=== PATIENT | male | born 1950 | race Caucasian/White ===

== ENCOUNTER 2017-10-27 09:17 | Inpatient (IN) | payer MEDICARE, MEDICAID ==
[~2017-10-27] VITALS: Ht 165.1 cm; Wt 70.3 kg
[2017-10-27] MEDS ORDERED: AMLODIPINE BES2.5 MG ORAL (09:22)
[2017-10-27] MEDS ORDERED: NORVASC2.5 MG ORAL (09:22)
[2017-10-27] MEDS ORDERED: LORAZEPAM1 MG ORAL (09:22)
[2017-10-27] MEDS ORDERED: IBUPROFEN600 MG ORAL (09:22)
[2017-10-27 09:52] VITALS: BP 142/76
[2017-10-27] MEDS ORDERED: Morphine Sulfate 4mg/ml Inj IVP ONE (10:15)
--- NOTE | 2017-10-27 10:19 | Emergency Room Report ---
History of Present Illness General Chief Complaint: Back Pain-No Injury Source: Patient, Medical Record Present Illness HPI Patient presents with complaints of right pelvic and hip pain Patient reports that he woke up this morning with increased pain Does not recall any trauma reports history of osteoporosis Patient reports previous low back problems receiving epidural injections Denies any fevers or chills pain is worse with movement of the right leg Patient also complains of burning with urination Denies any chest pain or shortness of breath denies any upper weakness however patient has been decreasing with his ambulation and is now reporting that he essentially uses a wheelchair Allergies: Coded Allergies: SULFAMETHOXAZOLE (Unverified Allergy, Unknown, 10/27/17) TRIMETHOPRIM (Unverified Allergy, Unknown, 10/27/17) Patient History Past Medical History: see triage record Pertinent Family History: none Reviewed Nursing Documentation: PMH: Agreed; PSxH: Agreed Nursing Documentation-PMH Past Medical History: No History, Except For Hx Hypertension: Yes Review of Systems All Other Systems: negative except mentioned in HPI Physical Exam Vital Signs Date Time Temp Pulse Resp B/P (MAP) Pulse Ox O2 Delivery O2 Flow Rate FiO2 10/27/17 09:10 98.4 70 16 157/80 98 Room Air 98.4 Sp02 EP Interpretation: reviewed, normal General Appearance: no apparent distress Head: normocephalic, atraumatic Eyes: bilateral eye PERRL, bilateral eye EOMI ENT: normal pharynx, dry mucus membranes Neck: full range of motion, supple Respiratory: lungs clear, normal breath sounds Cardiovascular #1: regular rate, rhythm, no edema Gastrointestinal: non tender Genitourinary: no CVA tenderness Musculoskeletal: other - Patient is somewhat flexed in the lower extremity with rotation to the left, pain on palpation of the proximal femur, uncomfortable in the inguinal region as well, unable to fully straighten the leg on the right side no obvious erythema Neurologic: oriented x3, responsive, sensory intact Skin: other - Small inguinal erythema Medical Decision Making Diagnostic Impression: Primary Impression: Avascular necrosis Additional Impression: UTI (urinary tract infection) ER Course Multiple differentials considered Including but not limited to septic joint, arthralgia Patient's CT imaging reveals fairly chronic pathology Bladder infection is treated in the ER patient still requiring further extensive pain medication and will require further inpatient care Labs Test 10/27/17 09:35 10/27/17 10:14 Urine Color Pale yellow Urine Appearance Clear Urine pH 7 (4.5-8.0) Urine Specific [place] 1.010 (1.005-1.035) Urine Protein 2+ (NEGATIVE) Urine Glucose (UA) Negative (NEGATIVE) Urine Ketones Negative (NEGATIVE) Urine Occult Blood 1+ (NEGATIVE) Urine Nitrite Positive (NEGATIVE) Urine Bilirubin Negative (NEGATIVE) Urine Urobilinogen Normal MG/DL (0.0-1.0) Urine Leukocyte Esterase 2+ (NEGATIVE) Urine RBC 0-2 /HPF (0 - 0) Urine WBC 5-10 /HPF (0 - 0) Urine Squamous Epithelial Cells Occasional /LPF Urine Bacteria Many /HPF (NONE) White Blood Count 6.5 K/UL (4.8-10.8) Red Blood Count 4.13 M/UL (4.70-6.10) Hemoglobin 14.3 G/DL (14.2-18.0) Hematocrit 40.5 % (42.0-52.0) Mean Corpuscular Volume 98 FL (80-99) Mean Corpuscular Hemoglobin 34.7 PG (27.0-31.0) Mean Corpuscular Hemoglobin Concent 35.4 G/DL (32.0-36.0) Red Cell Distribution Width 11.7 % (11.6-14.8) Platelet Count 156 K/UL (150-450) Mean Platelet Volume 8.7 FL (6.5-10.1) Neutrophils (%) (Auto) 63.6 % (45.0-75.0) Lymphocytes (%) (Auto) 25.9 % (20.0-45.0) Monocytes (%) (Auto) 8.6 % (1.0-10.0) Eosinophils (%) (Auto) 1.3 % (0.0-3.0) Basophils (%) (Auto) 0.6 % (0.0-2.0) Sodium Level 142 MMOL/L (136-145) Potassium Level 3.9 MMOL/L (3.5-5.1) Chloride Level 106 MMOL/L (98-107) Carbon Dioxide Level 28 MMOL/L (21-32) Anion Gap 8 mmol/L (5-15) Blood Urea Nitrogen 23 mg/dL (7-18) Creatinine 1.3 MG/DL (0.55-1.30) Estimat Glomerular Filtration Rate 54.7 mL/min (>60) Glucose Level 101 MG/DL (74-106) Calcium Level 9.2 MG/DL (8.5-10.1) Rhythm Strip Diag. Results EP Interpretation: yes Rate: 78 Rhythm: NSR, no PVC's, no ectopy Other X-Ray Diagnostic Results Other X-Ray Diagnostic Results : X-Ray ordered: Right femur # of Views/Limited Vs Complete: 2 View Indication: Pain EP Interpretation: Yes Interpretation: no dislocation, no soft tissue swelling, other - Chronic decay of the femoral head Impression: Other - Avascular necrosis Electronically Signed by: Corey Owens DO CT/MRI/US Diagnostic Results CT/MRI/US Diagnostic Results : Impression CT L-spineImpression: No acute bony trauma Degenerative changes, as detailed on a level by level basis above. CT pelvicImpression: Severe abnormality of both hips, as described. Findings are consistent with old bilateral avascular necrosis resulting in severe secondary degenerative change.. No definite acute joint abnormality. Material surrounding the femoral heads and necks probably represents postinflammatory pannus rather than joint fluid, although joint effusion is not completely excludable No evidence of acute bony trauma. Degenerative lumbosacral changes, as described Incidental finding small fat-containing umbilical hernia Last Vital Signs Date Time Temp Pulse Resp B/P (MAP) Pulse Ox O2 Delivery O2 Flow Rate FiO2 10/27/17 09:52 98.4 63 16 142/76 96 Room Air 98.4 Status: improved Disposition: ADMITTED INPATIENT Condition: Serious Referrals: MARY HENNESSY (PCP) Corey Owens DO Oct 27, 2017 10:19
[2017-10-27 10:32] LABS: APPEARANCE,URINE CLEAR; BILIRUBIN, URINE NEGATIVE (NEGATIVE); COLOR,URINE PALE YELLOW; GLUCOSE, URINE (UA) NEGATIVE (NEGATIVE); KETONES,URINE NEGATIVE (NEGATIVE); LEUKOCYTE ESTERASE ,URINE 2+ (NEGATIVE); NITRITE,URINE POSITIVE (NEGATIVE); PH,URINE 7 (4.5-8.0); PROTEIN,URINE 2+ (NEGATIVE); UROBILINOGEN,URINE NORMAL MG/DL (0.0-1.0)
[2017-10-27 10:34] LABS: BASOPHILS % (AUTO) 0.6 % (0.0-2.0); EOSINOPHILS % (AUTO) 1.3 % (0.0-3.0); HEMATOCRIT 40.5 % (42.0-52.0); HEMOGLOBIN 14.3 G/DL (14.2-18.0); LYMPHOCYTES % (AUTO) 25.9 % (20.0-45.0); MEAN CORPUSCULAR VOLUME 98 FL (80-99); MONOCYTES % (AUTO) 8.6 % (1.0-10.0); NEUTROPHILS % (AUTO) 63.6 % (45.0-75.0); PLATELET COUNT 156 K/UL (150-450); RED BLOOD COUNT 4.13 M/UL (4.70-6.10); RED CELL DISTRIBUTION WIDTH 11.7 % (11.6-14.8); WHITE BLOOD COUNT 6.5 K/UL (4.8-10.8)
[2017-10-27 10:47] LABS: ANION GAP 8 mmol/L (5-15); BLOOD UREA NITROGEN 23 mg/dL (7-18); CALCIUM 9.2 MG/DL (8.5-10.1); CARBON DIOXIDE 28 MMOL/L (21-32); CHLORIDE 106 MMOL/L (98-107); CREATININE 1.3 MG/DL (0.55-1.30); POTASSIUM 3.9 MMOL/L (3.5-5.1); SODIUM 142 MMOL/L (136-145)
[2017-10-27] MEDS: Nystatin Powder 100,000 units/gm 15gm TOPIC SCH ×3 (10:54→18:20)
--- NOTE | 2017-10-27 11:16 | Diagnostic Imaging Report ---
Indication: Pelvic and hip pain Technique: Noncontrast spiral acquisitions obtained through the pelvis. Multiplanar reconstructions generated. Total dose length product 891.4 mGycm. CTDIvol(s) 19.21,11.96 mGy. Dose reduction achieved using automated exposure control Comparison: none Findings: There is marked chronic appearing abnormality of the right hip, with marked bone loss of the femoral head, deformity of the femoral head, areas of flattening, sclerosis, and irregularity of the articular surface. There is narrowing of the joint space. In addition to the bone loss, there are some degenerative proliferative changes. There are subchondral cysts. There is associated remodeling of the acetabulum, marked irregularity of the acetabular articular surface, subchondral cyst formation, and osteophytes. There is a considerable degree of thickening of the acetabulum. No definite protrusio demonstrated, however. Material seen surrounding the femoral head and neck is higher in attenuation than fluid, probably reflects joint pannus rather than effusion, although the latter is also possible There is a similar abnormality of the left hip, slightly less severe. There is marked abnormality of the femoral head, with flattening of the femoral, extensive subchondral cyst formation, marked irregularity of the articular surface, degenerative proliferative changes, and loss of the joint space. The acetabular side demonstrates sclerosis, subchondral cysts, degenerative proliferative changes, and marked irregularity of the articular surface. Material seen surrounding the femoral head and neck is less extensive than the contralateral side, probably represents a small amount of joint habitus rather than effusion, although the latter is also possible No evidence of acute fracture. No dislocations. There are mild degenerative changes of the sacroiliac joints and lumbosacral junction. There is a small fat-containing umbilical hernia incidentally noted. The pelvic viscera are unremarkable. Impression: Severe abnormality of both hips, as described. Findings are consistent with old bilateral avascular necrosis resulting in severe secondary degenerative change.. No definite acute joint abnormality. Material surrounding the femoral heads and necks probably represents postinflammatory pannus rather than joint fluid, although joint effusion is not completely excludable No evidence of acute bony trauma. Degenerative lumbosacral changes, as described Incidental finding small fat-containing umbilical hernia The CT scanner at [facility] is accredited by the [employer] and the scans are performed using protocols designed to limit radiation exposure to as low as reasonably achievable to attain images of sufficient resolution adequate for diagnostic evaluation.
--- NOTE | 2017-10-27 11:24 | Diagnostic Imaging Report ---
Indications: Right pelvic, hip, and back pain Technique: Spiral acquisitions obtained through the lumbar spine. Multiplanar reconstructions were generated. No IV contrast utilized. Total dose length product 891.4 mGycm. CTDIvol(s) 19.21,11.96 mGy. Dose reduction achieved using automated exposure control Comparison: none Findings: There is mild lumbar levoscoliotic deformity. There is anterior offset of L4 on L5. There is slight posterior offset of L5 on S1. Otherwise normal bony alignment. There is some degenerative remodeling of the vertebral bodies. The vertebral body heights are otherwise preserved. No acute fractures. There are extensive degenerative proliferative changes at multiple levels. There are questionably old healed fracture deformities of the left L3 and L4 transverse processes. At T11-12, no significant disc bulge or protrusion, spinal stenosis, or neural foraminal stenosis. At T12-L1, there is degenerative disc narrowing with vacuum formation. No significant disc bulge or protrusion, spinal stenosis, or neural foraminal stenosis. At L1-2, there is severe narrowing of the right neural foramen. There is a large central broad-based posterior disc protrusion which results in mild narrowing of the spinal canal. The disc protrudes approximately 5 mm posterior to the posterior margins of the vertebral bodies. There is severe degenerative disc narrowing with vacuum formation. At L2-3 there is moderate to severe degenerative disc narrowing with vacuum formation. There is circumferential annular bulge which results in mild to moderate stenosis of the spinal canal. There is moderate to severe right neural foraminal stenosis. At L3-4, the disc space is preserved. There is circumferential annular bulge which results in borderline narrowing of the spinal canal. There is mild to moderate right and mild left neural foraminal stenosis. At L4-5, there is mild degenerative disc narrowing. There is circumferential annular bulge which does not result in any significant compromise of the spinal canal. However, the slight anterior offset described earlier and the annular bulge is resultant mild compromise of the bilateral neural foramina. At L5-S1, there is moderate to severe degenerative disc narrowing with vacuum formation. There is minimal circumferential annular bulge which does not seriously compromise the spinal canal. There is moderate degenerative narrowing of the left neural foramen. Included extraspinal soft tissues are unremarkable. Impression: No acute bony trauma Degenerative changes, as detailed on a level by level basis above. The CT scanner at [facility] is accredited by the [employer] and the scans are performed using protocols designed to limit radiation exposure to as low as reasonably achievable to attain images of sufficient resolution adequate for diagnostic evaluation.
[2017-10-27] MEDS ORDERED: cefTRIAXone 1 GM in NS 55 ML IVPB ONE (11:30)
[2017-10-27 11:53] VITALS: BP 140/77
[2017-10-27] MEDS ORDERED: Ketorolac 30mg Inj IV ONE (12:45)
[2017-10-27 14:26] VITALS: BP 132/97
--- NOTE | 2017-10-27 15:03 | Diagnostic Imaging Report ---
Indications: Reason For Exam: PAIN Technique: Two views of the right femur Comparison: None Findings: There is severe abnormality of the right hip, described in detail on earlier CT scan, with severe degenerative changes and evidence of old avascular necrosis. No acute fractures. No dislocations Impression: No acute bony trauma Markedly abnormal right hip, also described on earlier CT scan
[2017-10-27 16:00] VITALS: BP 141/83
[2017-10-27] MEDS: Morphine Sulfate 4mg/ml Inj IVP PRN (18:39)
[2017-10-27] MEDS ORDERED: cefTRIAXone 1 GM in D5W 55 ML IVPB SCH (20:00)
[2017-10-27] MEDS ORDERED: INTELENCE100 MG ORAL (20:06)
[2017-10-27] MEDS ORDERED: AVODART0.5 MG ORAL (20:06)
[2017-10-27] MEDS ORDERED: BARACLUDE0.5 MG ORAL (20:06)
[2017-10-27 20:54] VITALS: BP 143/80
[2017-10-27] MEDS: Fluconazole 100mg tab ORAL SCH (21:21)
[2017-10-27] MEDS: Heparin 5000 units/ml inj SUBQ SCH (21:22)
[2017-10-27] MEDS: LORazepam 1mg tab ORAL PRN (23:39)
--- NOTE | 2017-10-28 | Consultation ---
DATE OF CONSULTATION: 10/27/2017 CARDIOLOGY CONSULTATION NOTE CONSULTING PHYSICIAN: Price Mendieta M.D. REQUESTING PHYSICIAN: Enoc Corrales M.D. REASON FOR CONSULTATION: Management of hypertension in the setting of acute pain syndrome. 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 He notes falling on his knee a week or so ago, but did not have any pain on the knee, rather he developed worsening right pelvic and hip pain since this morning. The pain has progressed rapidly and is of severe severity 04/12. The patient does have a prior history of degenerative disk disease as well and has received epidural injections in the past. He has had some worsening rash around his genitalia and perineum and notes burning with urination. He has not been to be able to mobilize himself due to weakness and dizziness upon sitting up. He has not had any chest pain palpitations or shortness of breath. PAST MEDICAL HISTORY: Human immunodeficiency virus positive, avascular necrosis, hypertension, osteoporosis, and degenerative disk disease. MEDICATIONS: Prior to admission, reviewed and reconciled although the patient is unaware of his exact HIV regimen at this time. ALLERGIES: Sulfa. FAMILY HISTORY: Noncontributory. SOCIAL HISTORY: Negative for smoking, alcohol, or substance abuse. REVIEW OF SYSTEMS: A 10-point review of systems performed. All systems negative other than noted above. PHYSICAL EXAMINATION: GENERAL: Weak, withdrawn, and appears older than stated age. VITAL SIGNS: Blood pressure 157/80, pulse 70, respirations 16, afebrile, and room air oxygen saturation 98%. HEENT: Temporal wasting. Pale conjunctivae. Oropharynx clear. Mucous membranes dry. NECK: Supple. LUNGS: With diminished breath sounds. No wheezing or rales. CARDIAC: Regular rhythm and rate. Normal S1 and S2 with a fourth heart sound. No murmur. ABDOMEN: Soft and nontender with no guarding or rebound. EXTREMITIES: Reveals symmetric weakness and muscle atrophy. No edema. Decreased range of motion severely on the right lower extremity as well as the left. SKIN: Notable for tinea cruris. DIAGNOSTIC AND LABORATORY DATA: Imaging studies of the spine are reviewed. Urinalysis with 5 to 10 white cells and moderate bacteria. Sodium 142, potassium 3.9, bicarbonate 28, BUN 23, creatinine 1.3, and glucose 101. White count is 6.5 and hemoglobin 14.3. EKG with sinus rhythm and no acute abnormalities. Nonspecific ST-T wave changes seen. IMPRESSION: 1. Acute pain syndrome due to avascular necrosis and degenerative disk disease, possibly precipitated by metabolic derangements, acute infection, or recent trauma to knee. 2. Human immunodeficiency virus/acquired immune deficiency syndrome. 3. Hypertension with elevated blood pressure, but no signs of secondary cardiovascular complications. 4. Umbilical hernia. 5. Acute kidney injury due to hypovolemia and hypoperfusion. 6. Mild hypovolemia and dehydration. 7. Tinea cruris. PLAN: 1. Hydration with IV fluids. 2. Empiric antibiotics. 3. Pain control. 4. DVT and stress ulcer prophylaxes. 5. Rheumatology consultation has been requested by his primary care physician. 6. P.r.n. antihypertensives for blood pressure spikes once pain controlled. 7. Orthostatic precautions with the use of amlodipine. 8. Antifungal therapy and skin care. Price Mendieta M.D. DR: LAURI JOB#: [id number] CC:
[2017-10-28] MEDS: Morphine Sulfate 4mg/ml Inj IVP PRN ×5 (02:23→22:25)
[2017-10-28 04:05] VITALS: BP 126/77
[2017-10-28] MEDS ORDERED: Gadavist 7.5mMol/7.5ml vial IV SCH ×2 (08:30→10:00)
[2017-10-28 09:00] VITALS: BP 130/77
[2017-10-28 09:01] LABS: BASOPHILS % (AUTO) 0.4 % (0.0-2.0); EOSINOPHILS % (AUTO) 1.5 % (0.0-3.0); HEMOGLOBIN 14.9 G/DL (14.2-18.0); LYMPHOCYTES % (AUTO) 31.4 % (20.0-45.0); MEAN CORPUSCULAR VOLUME 100 FL (80-99); MONOCYTES % (AUTO) 6.1 % (1.0-10.0); NEUTROPHILS % (AUTO) 60.6 % (45.0-75.0); PLATELET COUNT 154 K/UL (150-450); RED BLOOD COUNT 4.21 M/UL (4.70-6.10); RED CELL DISTRIBUTION WIDTH 11.8 % (11.6-14.8); WHITE BLOOD COUNT 7.7 K/UL (4.8-10.8)
[2017-10-28] MEDS: Fluconazole 100mg tab ORAL SCH (09:06)
[2017-10-28] MEDS: Nystatin Powder 100,000 units/gm 15gm TOPIC SCH ×2 (09:07→14:12)
[2017-10-28] MEDS: Heparin 5000 units/ml inj SUBQ SCH ×2 (09:07→21:44)
[2017-10-28 09:23] LABS: ALANINE AMINOTRANSFERASE 29 U/L (12-78); ALBUMIN 3.5 G/DL (3.4-5.0); ALBUMIN/GLOBULIN RATIO 0.9 (1.0-2.7); ALKALINE PHOSPHATASE 124 U/L (46-116); ANION GAP 9 mmol/L (5-15); ASPARTATE AMINO TRANSFERASE 27 U/L (15-37); BILIRUBIN,TOTAL 0.5 MG/DL (0.2-1.0); BLOOD UREA NITROGEN 20 mg/dL (7-18); CALCIUM 8.7 MG/DL (8.5-10.1); CARBON DIOXIDE 26 MMOL/L (21-32); CHLORIDE 107 MMOL/L (98-107); CREATINE KINASE 96 U/L (26-308); CREATININE 1.1 MG/DL (0.55-1.30); POTASSIUM 3.8 MMOL/L (3.5-5.1); SODIUM 142 MMOL/L (136-145)
[2017-10-28] MEDS ORDERED: Gadavist 7.5mMol/7.5ml vial IV PRN (10:00)
--- NOTE | 2017-10-28 11:00 | Consultation ---
DATE OF CONSULTATION: 10/28/2017 NOTE: INCOMPLETE DICTATION RHEUMATOLOGICAL CONSULTATION CONSULTING PHYSICIAN: Tonja oBx M.D. REASON FOR CONSULTATION: I was asked by Dr. Mendieta to assess this 67-year-old patient because of diffuse articular pain. HISTORY OF PRESENT ILLNESS: The patient has diffuse articular pain started more than 20 years ago and progressively increased for the last 20 years. In the last two years, this pain has significantly involved both shoulders, both elbows, both wrists, both knees and both . In addition, the patient had inability to move his hips except slightly forward and backward, but he cannot perform an abduction movement. This over the last several years . He denies having any swollen joints, however, he has sensitivity. He has dry eyes and dry mouth and pain today. . ALLERGIES: No known drug allergies. MEDICATIONS: The patient is on amlodipine 5 mg daily, heparin 5000 units subcutaneously q.12 h., mg daily, clonidine 0.1 mg p.r.n., fluconazole 100 mg daily, and clonazepam 1 mg q.8 h. p.r.n. In addition, he is on morphine sulfate . ALLERGIES: No known drug allergies. FAMILY HISTORY: Not contributory. SOCIAL HISTORY: He is single. He for many years. Prior to that, . HABITS: The patient does not smoke, drink, or use illicit drugs, however, he did smoke in the past. Tonja Box M.D. DR: TERRENCE JOB#: [id number] CC:
--- NOTE | 2017-10-28 13:00 | History and Physical Report ---
DATE OF ADMISSION: 10/27/2017 CHIEF COMPLAINT: Severe hip pain and back pain. HISTORY OF PRESENT ILLNESS: The patient is a 67-year-old male. He has a history of HIV and hypertensive heart disease, presented with complaints of one week of progressive back and hip pain. According to the patient, he was well. He has been nonambulatory for several years now, but is unclear exactly why. He had severe pain in the lower back and hips and presented to the emergency room for further evaluation. On evaluation there, CT scan of the hip showed avascular necrosis. The patient denies any recent fevers or chills. He denies any trauma or falls. No changes in activity. The patient was also noted to be markedly hypertensive and is now admitted for further evaluation and care. PAST MEDICAL HISTORY: As above. PAST SURGICAL HISTORY: None. CURRENT MEDICATIONS: Reconciled and reviewed. ALLERGIES: Include Bactrim. FAMILY HISTORY: Noncontributory. SOCIAL HISTORY: Negative for tobacco, ethanol, or drugs. REVIEW OF SYSTEMS: GENERAL: No fever or chills. HEENT: No headaches or visual changes. CARDIOPULMONARY: No chest pain or shortness of breath. GASTROINTESTINAL: No nausea or vomiting. GENITOURINARY: No urgency or frequency. MUSCULOSKELETAL: Positive hip pain and back pain. NEUROLOGIC: No evidence of seizures. PHYSICAL EXAMINATION: VITAL SIGNS: Temperature 98.4, pulse 63, respirations 16, and blood pressure 142/76. GENERAL: The patient is well-developed male, who appears chronically ill, but is awake and alert. HEENT: His pupils are equal, round, and reactive to light. Oropharynx clear. NECK: Supple. HEART: Regular rate and rhythm. LUNGS: Clear. ABDOMEN: Soft, nontender, nondistended. EXTREMITIES: Without clubbing, cyanosis, or edema. The patient has minimal passive or active range of motion of the hips due to severe pain. DIAGNOSTIC AND LABORATORY DATA: CT scan of the spine showed severe narrowing of the right neuroforamina at L1 and L2, the large disk protrusion, severe degenerative disk disease at L2 and L3, and L5 and S1. CT scan of the hip showed severe abnormality both hips consistent with old bilateral avascular necrosis. ASSESSMENT: This is a pleasant male with a history of HIV, admitted with complaints of severe hip and back pain. 1. Severe hip and back pain. 2. AVN of the hips. 3. Rule out septic arthritis of the hips. 4. Severe degenerative disk disease. 5. HIV. 6. Hypertensive heart disease. PLAN: Empiric antibiotics. ID, Cardiology, and Orthopedics evaluation will be obtained. We will obtain MRI with contrast to rule out septic joint. Empiric antibiotic therapy. Check cultures. Pain control. Cardiology consultation to assist with blood pressure management. Enoc Corrales M.D. DR: APOLONIA JOB#: [id number] CC:
[2017-10-28] MEDS: LORazepam 1mg tab ORAL PRN (14:11)
[2017-10-28] MEDS: Piperacillin/Tazobactam 3.375 GM in D5W 110 ML IVPB SCH ×2 (14:11→21:43)
--- NOTE | 2017-10-28 16:31 | Diagnostic Imaging Report ---
Indication: Severe bilateral hip pain, abnormal prior CT scan Technique: Coronal and axial T 1 fast spin echo and fast spin echo IR images of the pelvis. Patient could not tolerate any further imaging Comparison: CT scan yesterday Findings: Exam is limited due to the availability of only 4 sequences. As demonstrated on CT, there is marked abnormality of the bilateral femoral heads. This is seen in better detail on the prior CT scan. There is also corresponding abnormality the bilateral acetabula. No definite bone marrow signal abnormality. No joint effusion is demonstrated. A small amount of fluid is seen in the right hip joint. Pannus surrounding the bilateral femoral heads is best appreciated on the T1-weighted images. No significant soft tissue edema is demonstrated. No focal fluid collection demonstrated The included pelvic viscera are unremarkable. Impression: Limited exam, as described Marked abnormality of the bilateral acetabula and femoral heads, seen in better detail on prior CT scan. As previously discussed, this most likely represents sequela of prior bilateral avascular necrosis No evidence of significant soft tissue cellulitis, myositis, or abscess
--- NOTE | 2017-10-28 17:00 | Consultation ---
DATE OF CONSULTATION: 10/28/2017 INFECTIOUS DISEASES CONSULTATION CONSULTING PHYSICIAN: Melchor Velez M.D. REFERRING PHYSICIAN: Enoc Corrales M.D. REASON FOR CONSULTATION: HIV. HISTORY OF PRESENTING ILLNESS: This is a 67-year-old gentleman with history of human immunodeficiency virus, T-cell count of 400, viral load unknown and there is history of avascular necrosis of the hip, who had a fall on his knee and he has had increasing pain and he also had some burning with urination. An Infectious Diseases consultation has been obtained for human immunodeficiency virus as well as urinary tract infection. PAST MEDICAL HISTORY: 1. History of human immunodeficiency virus, T-cell count of 400, viral load unknown. 2. Avascular necrosis. 3. Hypertension. 4. Osteoporosis. 5. Degenerative disk disease. 6. History of shingles. He denies any hepatitis A, B, or C or syphilis, gonorrhea, or Chlamydia or any other opportunistic infections. MEDICATIONS: As an inpatient, he is on Gadobutrol, amlodipine, subcutaneous heparin, raltegravir, ceftriaxone, ritonavir, clonidine, fluconazole, Ativan, morphine, Zofran, and nystatin. ALLERGIES: Bactrim. SOCIAL HISTORY: No history of smoking, alcohol, or drug use. FAMILY HISTORY: Noncontributory. REVIEW OF SYSTEMS: CONSTITUTIONAL: He denies any fever, chills, cough, shortness of breath, or chest pain. CARDIAC: No chest pain. No palpitations. No dizziness. No syncope. GASTROINTESTINAL: No nausea. No vomiting. No abdominal pain or diarrhea. MUSCULOSKELETAL: He complains of pain in his legs. GENITOURINARY: He does complain of dysuria. PHYSICAL EXAMINATION: VITAL SIGNS: Temperature of 97.8, T-max of 98.6, pulse of 63, respiratory rate of 19, blood pressure 126/77, and O2 saturation of 97%. HEENT: Pupils equally reactive to light and accommodation. Mouth appears clean without thrush. NECK: Supple. No adenopathy. No JVD. CARDIOVASCULAR: Regular rate and rhythm. No murmurs. LUNGS: Clear to auscultation bilaterally. No crackles. No wheezes. ABDOMEN: Soft and nontender. No organomegaly. Groin area erythema noted. EXTREMITIES: No cyanosis, no clubbing, no edema. Left knee, soreness noted. LABORATORY AND DIAGNOSTIC DATA: White count 7.7, hemoglobin 13.9 hematocrit 42, MCV 100, platelet count of 154,000, and neutrophils of 60%. Sodium 142, potassium 3.8, chloride 107, bicarb 26, BUN 20, creatinine 1.1, glucose of 94, and calcium 8.7. Total bilirubin 0.5. AST 27, ALT 29, and alkaline phosphatase 124. CK of 96. Total protein of 7.6. Albumin 3.5. UA showing 5 to 10 white cells. Urine culture is showing gram-negative rods more than 100,[address] of the pelvis is showing severe abnormality of both hips consistent with old bilateral avascular necrosis resulting in severe secondary degenerative change. Material surrounding the probably represents post inflammatory pannus rather than joint fluid. No bony trauma noted. Degenerative lumbosacral changes described. Spine CT is showing degenerative changes. X-ray of the femur is showing no acute bony trauma. ASSESSMENT: This is a 67-year-old gentleman with history of human immunodeficiency virus, T-cell count of 400, with avascular necrosis, who comes in with, 1. Urinary tract infection with gram-negative rods. 2. Groin fungal infection. 3. Human immunodeficiency virus with T-cell count of 400. PLAN: 1. Continue fluconazole. 2. Discontinue ceftriaxone. 3. We will start the patient on Zosyn. 4. We will follow up cultures and adjust antibiotics accordingly. I would like to thank, Dr. Corrales, for this consultation. Melchor Velez M.D. DR: JOSE JOB#: [id number] CC: Enoc Corrales M.D.
[2017-10-28] MEDS: Ritonavir 100mg tab ORAL SCH (17:06)
[2017-10-28] MEDS: Isentress 400mg tab ORAL SCH ×2 (17:07→21:43)
[2017-10-28 21:00] VITALS: BP 159/95
[2017-10-29] VITALS: BP 148/89
[2017-10-29] MEDS: LORazepam 1mg tab ORAL PRN (00:12)
--- NOTE | 2017-10-29 03:00 | Progress Note ---
DATE: 10/28/2017 CARDIOLOGY PROGRESS NOTE SUBJECTIVE: The patient's pain has not improved. He feels very weak. He said he continues on IV fluid hydration and pain control. Antimicrobials have been adjusted by the Infectious Disease retirement sales consultant. PHYSICAL EXAMINATION: VITAL SIGNS: Blood pressure labile 126/77 to 176/108, heart rate 63 to 81, and respiratory rate 20. No fevers. LUNGS: Clear. CARDIAC: Regular. Normal S1, S2. ABDOMEN: Soft. EXTREMITIES: No edema. MRI of the pelvis revealed bilateral avascular necrosis with no other acute pathology. IMPRESSION: 1. Hypertensive heart disease with accelerated and labile blood pressure likely due to pain. 2. Avascular necrosis. 3. Human immunodeficiency virus/acquired immune deficiency syndrome. 4. Acute on chronic pain due to degenerative arthritis. 5. Diastolic dysfxn with chronic CHF. PLAN: 1. Antimicrobials. 2. Pain control. 3. Stepwise titration of antihypertensive. 4. Avoid tight blood pressure control at this time due to potential for orthostasis and rapid drop in blood pressure with pain control measures. Price Mendieta M.D. DR: ADA JOB#: [id number] CC: RENEE
[2017-10-29] MEDS: Morphine Sulfate 4mg/ml Inj IVP PRN ×4 (03:32→21:11)
[2017-10-29] MEDS: Piperacillin/Tazobactam 3.375 GM in D5W 110 ML IVPB SCH (05:41)
[2017-10-29 08:00] VITALS: BP 164/95
[2017-10-29] MEDS: Fluconazole 100mg tab ORAL SCH (08:59)
[2017-10-29] MEDS: Metoprolol Succinate XL 25mg tab ORAL SCH (08:59)
[2017-10-29] MEDS: Isentress 400mg tab ORAL SCH ×2 (08:59→21:09)
[2017-10-29] MEDS: Ritonavir 100mg tab ORAL SCH ×2 (08:59→17:52)
[2017-10-29] MEDS: Heparin 5000 units/ml inj SUBQ SCH ×2 (09:01→21:11)
--- NOTE | 2017-10-29 11:01 | Infectious Diseases Prog Note ---
Assessment/Plan Assessment/Plan antibiotics ; zosyn, fluconazole A 1. e.coli UTI 2. HIV 3. groin fungal infection 4. avascular necrosis P 1. continue fluconazole 2. d/c zosyn 3. start ceftriaxone 4. will follow up cultures Subjective Constitutional: Denies: fever, chills Respiratory: Reports: shortness of breath, dry cough Gastrointestinal/Abdominal: Reports: diarrhea; Denies: nausea, vomiting Musculoskeletal: Reports: pain Allergies: Coded Allergies: SULFAMETHOXAZOLE (Unverified Allergy, Unknown, 10/27/17) TRIMETHOPRIM (Unverified Allergy, Unknown, 10/27/17) Objective Vital Signs Last 24 Hour Vital Signs Date Time Temp Pulse Resp B/P (MAP) Pulse Ox O2 Delivery O2 Flow Rate FiO2 10/29/17 09:31 98.1 10/29/17 08:59 82 164/95 10/29/17 08:59 82 164/95 10/29/17 08:00 98.1 82 20 164/95 96 Nasal Cannula 2.0 98.1 10/29/17 03:32 98.0 10/29/17 00:00 98.0 81 20 148/89 95 Nasal Cannula 2.0 98.0 10/28/17 22:24 176/108 10/28/17 21:00 98.0 71 20 159/95 96 98.0 Height (Feet): 5 Height (Inches): 5.00 Weight (Pounds): 155 Respiratory/Chest: lungs clear Cardiovascular: normal rate, regular rhythm, no gallop/murmur Abdomen: soft, non tender Extremities: no edema Microbiology Date/Time Source Procedure Growth Status 10/27/17 09:35 Urine,Clean Catch Urine Culture - Final Escherichia Coli Complete 10/27/17 12:20 Rectum VRE Culture - Final Enterococcus Faecium - Vre Complete Current Medications Medications (Trade) Dose Ordered Sig/Roman Route PRN Reason Start Time Stop Time Status Last Admin Dose Admin Amlodipine Besylate (Norvasc) 5 mg DAILY ORAL 10/28/17 09:00 11/27/17 08:59 10/29/17 08:59 Clonidine HCl (Catapres Tab) 0.1 mg Q4H PRN ORAL SBP above 150 10/27/17 19:30 11/26/17 19:29 10/28/17 22:24 Entecavir (Baraclude) 1 mg DAILY ORAL 10/28/17 15:00 11/27/17 14:59 10/29/17 09:52 Etravirine (Intelence) 200 mg Q12HR ORAL 10/28/17 12:30 11/27/17 12:29 UNV Fluconazole (Diflucan) 100 mg DAILY ORAL 10/27/17 19:15 11/03/17 19:14 10/29/17 08:59 Gadobutrol (Gadavist) 7.5 mmol ONCE PRN IV FOR RADIOLOGY USE ONLY 10/28/17 10:00 10/29/17 23:59 Heparin Sodium (Porcine) (Heparin 5000 units/ml) 5,000 units EVERY 12 HOURS SUBQ 10/27/17 21:00 11/26/17 20:59 10/29/17 09:01 Lorazepam (Ativan) 1 mg Q8H PRN ORAL ANXIETY 10/27/17 13:45 11/03/17 13:44 10/29/17 00:12 Metoprolol Succinate (Toprol XL) 25 mg DAILY ORAL 10/29/17 09:00 11/28/17 08:59 10/29/17 08:59 Morphine Sulfate (Morphine Sulfate) 2 mg Q4H PRN IVP Severe Pain (Pain Scale 7-10) 10/27/17 13:45 11/03/17 13:44 10/29/17 09:01 Ondansetron HCl (Zofran) 4 mg Q6H PRN IVP Nausea & Vomiting 10/27/17 13:45 11/26/17 13:44 Piperacillin Sod/ Tazobactam Sod 3.375 gm/Dextrose 110 ml @ 27.5 mls/hr EVERY 8 HOURS IVPB 10/28/17 14:00 11/02/17 13:59 10/29/17 05:41 Raltegravir (Isentress) 400 mg Q12HR ORAL 10/28/17 14:00 11/27/17 13:59 10/29/17 08:59 Ritonavir (Norvir) 100 mg TWICE A DAY ORAL 10/28/17 18:00 11/27/17 17:59 10/29/17 08:59 Sodium Chloride 1,000 ml @ 75 mls/hr [id number] IV 10/29/17 19:15 11/28/17 19:14 XENA FOX Oct 29, 2017 11:01
[2017-10-29 12:00] VITALS: BP 110/66
--- NOTE | 2017-10-29 12:27 | General Progress Note ---
Assessment/Plan Problem List: (1) Degenerative disc disease SNOMED: 58365559 (2) Neuropathy ICD Codes: G62.9 - Polyneuropathy, unspecified SNOMED: 230706212 (3) HIV (human immunodeficiency virus infection) ICD Codes: B20 - Human immunodeficiency virus [HIV] disease SNOMED: 28604993 (4) UTI (urinary tract infection) ICD Codes: N39.0 - Urinary tract infection, site not specified SNOMED: 25559466 (5) Avascular necrosis ICD Codes: M87.00 - Idiopathic aseptic necrosis of unspecified bone SNOMED: 688931200 Status: stable, progressing Assessment/Plan abx per id pain rx consider mri spine spine eval hiv rx Subjective ROS Limited/Unobtainable: No Constitutional: Reports: malaise, weakness HEENT: Reports: no symptoms Cardiovascular: Reports: no symptoms Respiratory: Reports: no symptoms Gastrointestinal/Abdominal: Reports: no symptoms Genitourinary: Reports: no symptoms 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: Reports: pre-existing deficit Endocrine: Reports: no symptoms Hematologic/Lymphatic: Reports: no symptoms Allergies: Coded Allergies: SULFAMETHOXAZOLE (Unverified Allergy, Unknown, 10/27/17) TRIMETHOPRIM (Unverified Allergy, Unknown, 10/27/17) All Systems: reviewed and negative except above Subjective c/o back and leg pain. avn appears chronic. on iv abx for uti. c/o back pain. hard time moving legs Objective Last 24 Hour Vital Signs Date Time Temp Pulse Resp B/P (MAP) Pulse Ox O2 Delivery O2 Flow Rate FiO2 10/29/17 12:00 97.9 83 18 110/66 97 Nasal Cannula 2.0 97.9 10/29/17 09:31 98.1 10/29/17 08:59 82 164/95 10/29/17 08:59 82 164/95 10/29/17 08:00 98.1 82 20 164/95 96 Nasal Cannula 2.0 98.1 10/29/17 03:32 98.0 10/29/17 00:00 98.0 81 20 148/89 95 Nasal Cannula 2.0 98.0 10/28/17 22:24 176/108 10/28/17 21:00 98.0 71 20 159/95 96 98.0 Intake and Output 4/27/18 4/28/18 19:00 07:00 Intake Total 700 ml 445.0 ml Output Total 1000 ml 1150 ml Balance -300 ml -705.0 ml Intake Oral 600 ml IV Total 100 ml 445.0 ml Output Urine Total 1000 ml 1150 ml # Voids 2 Height (Feet): 5 Height (Inches): 5.00 Weight (Pounds): 155 General Appearance: WD/WN, alert Neck: supple Cardiovascular: normal rate, regular rhythm Respiratory/Chest: chest wall non-tender, lungs clear, normal breath sounds Abdomen: normal bowel sounds, non tender, soft, no organomegaly Edema: no edema noted Arm (L), no edema noted Arm (R), no edema noted Leg (L), no edema noted Leg (R), no edema noted Pedal (L), no edema noted Pedal (R), no edema noted Generalized JARON HARRISON Oct 29, 2017 12:27
[2017-10-29] MEDS: cefTRIAXone 1 GM in D5W 55 ML IVPB SCH (13:44)
[2017-10-29] MEDS: Etravirine 100mg tab ORAL SCH ×2 (15:13→21:08)
[2017-10-29 16:00] VITALS: BP 115/69
[2017-10-29 20:00] VITALS: BP_SYST 140; BP_SYST 160; BP_DIAS 84; BP_DIAS 94
[2017-10-29] MEDS ORDERED: Tubing IV Secondary IV ONE (20:27)
[2017-10-30] VITALS: BP 153/94
--- NOTE | 2017-10-30 02:15 | Progress Note ---
DATE: 10/29/2017 CARDIOLOGY PROGRESS NOTE SUBJECTIVE: The patient has no chest pain, but continues to complain of back pain and leg pain with difficult mobilization. OBJECTIVE: VITAL SIGNS: Blood pressure range 110/66 to 164/95, pulse 83, and respirations 18. LUNGS: Clear. CARDIAC: Regular. Normal S1 and S2. There is a fourth heart sound. ABDOMEN: Soft. EXTREMITIES: Without edema. Muscle atrophy is noted. IMPRESSION: 1. Avascular necrosis. 2. Acute on chronic pain. 3. Human immunodeficiency virus/Acquired immunodeficiency syndrome. 4. Hypertensive heart disease with accelerated and labile blood pressure, likely due to comorbidities. PLAN: 1. Continue pain control mobilization efforts. 2. Titrate antihypertensives p.r.n. 3. Antihypertensives for blood pressure spikes. 4. Close monitoring for orthostasis and associated fall risk. 5. Maintain antiviral regimen. Price Mendieta M.D. DR: Meryl JOB#: [id number] CC:
[2017-10-30 04:00] VITALS: BP 153/80
[2017-10-30] MEDS: Morphine Sulfate 4mg/ml Inj IVP PRN ×2 (06:03→10:41)
[2017-10-30 08:00] VITALS: BP 135/83
[2017-10-30] MEDS: Metoprolol Succinate XL 25mg tab ORAL SCH (08:39)
[2017-10-30] MEDS: Isentress 400mg tab ORAL SCH ×2 (08:40→20:26)
[2017-10-30] MEDS: Ritonavir 100mg tab ORAL SCH ×2 (08:40→17:40)
[2017-10-30] MEDS: Etravirine 100mg tab ORAL SCH ×2 (08:40→20:27)
[2017-10-30] MEDS: Fluconazole 100mg tab ORAL SCH (08:42)
[2017-10-30] MEDS: Heparin 5000 units/ml inj SUBQ SCH ×2 (08:43→20:28)
--- NOTE | 2017-10-30 11:18 | General Progress Note ---
Assessment/Plan Problem List: (1) Degenerative disc disease SNOMED: 59686743 (2) Neuropathy ICD Codes: G62.9 - Polyneuropathy, unspecified SNOMED: 391106597 (3) HIV (human immunodeficiency virus infection) ICD Codes: B20 - Human immunodeficiency virus [HIV] disease SNOMED: 32716386 (4) UTI (urinary tract infection) ICD Codes: N39.0 - Urinary tract infection, site not specified SNOMED: 66675692 (5) Avascular necrosis ICD Codes: M87.00 - Idiopathic aseptic necrosis of unspecified bone SNOMED: 403075320 Status: stable, not improved Assessment/Plan abx per id pain rx adjusted agrees to mri spine/knee spine eval pending hiv rx Subjective Constitutional: Reports: malaise, weakness HEENT: Reports: no symptoms Cardiovascular: Reports: no symptoms Respiratory: Reports: no symptoms Gastrointestinal/Abdominal: Reports: no symptoms Genitourinary: Reports: no symptoms 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: Reports: pre-existing deficit Endocrine: Reports: no symptoms Hematologic/Lymphatic: Reports: no symptoms Allergies: Coded Allergies: SULFAMETHOXAZOLE (Unverified Allergy, Unknown, 10/27/17) TRIMETHOPRIM (Unverified Allergy, Unknown, 10/27/17) All Systems: reviewed and negative except above Subjective c/o severe back and knee pain. states symptoms are "much worse" than before. Pain remains uncontrolled according to the pt. Objective Last 24 Hour Vital Signs Date Time Temp Pulse Resp B/P (MAP) Pulse Ox O2 Delivery O2 Flow Rate FiO2 10/30/17 08:39 67 135/83 10/30/17 08:39 67 135/83 10/30/17 08:00 97.9 67 20 135/83 97 Nasal Cannula 2.0 97.9 10/30/17 06:12 157/83 10/30/17 04:00 98.0 62 19 153/80 97 Nasal Cannula 98.0 10/30/17 00:00 97.5 66 19 153/94 97 Room Air 97.5 10/29/17 21:10 160/94 10/29/17 20:00 98.6 75 19 160/94 97 Nasal Cannula 98.6 10/29/17 16:00 98.2 83 20 115/69 95 Nasal Cannula 2.0 98.2 10/29/17 12:00 97.9 83 18 110/66 97 Nasal Cannula 2.0 97.9 Intake and Output 10/29/17 10/30/17 19:00 07:00 Intake Total 1265.0 ml 250 ml Output Total 600 ml Balance 1265.0 ml -350 ml Intake Oral 1100 ml 250 ml IV Total 165.0 ml Output Urine Total 600 ml # Voids 6 2 # Bowel Movements 2 Height (Feet): 5 Height (Inches): 5.00 Weight (Pounds): 155 Objective General Appearance: WD/WN, alert Neck: supple Cardiovascular: normal rate, regular rhythm Respiratory/Chest: chest wall non-tender, lungs clear, normal breath sounds Abdomen: normal bowel sounds, non tender, soft, no organomegaly Edema: no edema noted Arm (L), no edema noted Arm (R), no edema noted Leg (L), no edema noted Leg (R), no edema noted Pedal (L), no edema noted Pedal (R), no edema noted Generalized JARON HARRISON Oct 30, 2017 11:18
[2017-10-30 12:00] VITALS: BP 136/77
--- NOTE | 2017-10-30 13:46 | Infectious Diseases Prog Note ---
Assessment/Plan Assessment/Plan A 1. e.coli UTI 2. HIV 3. groin fungal infection 4. 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 continue fluconazole & ceftriaxone 2. Continue ART Subjective ROS Limited/Unobtainable: No Constitutional: Reports: no symptoms Respiratory: Reports: no symptoms Cardiovascular: Reports: no symptoms Gastrointestinal/Abdominal: Reports: no symptoms Genitourinary: Reports: no symptoms Musculoskeletal: Reports: pain, other - spasms in left leg Allergies: Coded Allergies: SULFAMETHOXAZOLE (Unverified Allergy, Unknown, 10/27/17) TRIMETHOPRIM (Unverified Allergy, Unknown, 10/27/17) Objective Vital Signs Last 24 Hour Vital Signs Date Time Temp Pulse Resp B/P (MAP) Pulse Ox O2 Delivery O2 Flow Rate FiO2 10/30/17 12:00 97.1 77 21 136/77 97 Room Air 97.1 10/30/17 08:39 67 135/83 10/30/17 08:39 67 135/83 10/30/17 08:00 97.9 67 20 135/83 97 Nasal Cannula 2.0 97.9 10/30/17 06:12 157/83 10/30/17 04:00 98.0 62 19 153/80 97 Nasal Cannula 98.0 10/30/17 00:00 97.5 66 19 153/94 97 Room Air 97.5 10/29/17 21:10 160/94 10/29/17 20:00 98.6 75 19 160/94 97 Nasal Cannula 98.6 10/29/17 16:00 98.2 83 20 115/69 95 Nasal Cannula 2.0 98.2 Height (Feet): 5 Height (Inches): 5.00 Weight (Pounds): 155 General Appearance: no acute distress HEENT: mucous membranes moist Respiratory/Chest: lungs clear Cardiovascular: normal rate Abdomen: soft, non tender Extremities: no edema 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: alert, oriented x 3, responsive Current Medications Medications (Trade) Dose Ordered Sig/Roman Route PRN Reason Start Time Stop Time Status Last Admin Dose Admin Amlodipine Besylate (Norvasc) 5 mg DAILY ORAL 10/28/17 09:00 11/27/17 08:59 10/30/17 08:39 Ceftriaxone Sodium 1 gm/ Dextrose 55 ml @ 110 mls/hr Q24H IVPB 10/29/17 13:00 11/05/17 12:59 10/29/17 13:44 Clonidine HCl (Catapres Tab) 0.1 mg Q4H PRN ORAL SBP above 150 10/27/17 19:30 11/26/17 19:29 10/30/17 06:12 Entecavir (Baraclude) 1 mg DAILY ORAL 10/28/17 15:00 11/27/17 14:59 10/30/17 08:40 Etravirine (Intelence) 200 mg Q12HR ORAL 10/29/17 14:00 11/28/17 13:59 10/30/17 08:40 Fluconazole (Diflucan) 100 mg DAILY ORAL 10/27/17 19:15 11/03/17 19:14 10/30/17 08:42 Heparin Sodium (Porcine) (Heparin 5000 units/ml) 5,000 units EVERY 12 HOURS SUBQ 10/27/17 21:00 11/26/17 20:59 10/30/17 08:43 Hydromorphone HCl (Dilaudid) 1 mg Q4H PRN IVP For Pain 10/30/17 12:00 11/06/17 11:59 Lorazepam (Ativan) 1 mg Q8H PRN ORAL ANXIETY 10/27/17 13:45 11/03/17 13:44 10/29/17 00:12 Metoprolol Succinate (Toprol XL) 25 mg DAILY ORAL 10/29/17 09:00 11/28/17 08:59 10/30/17 08:39 Ondansetron HCl (Zofran) 4 mg Q6H PRN IVP Nausea & Vomiting 10/27/17 13:45 11/26/17 13:44 Raltegravir (Isentress) 400 mg Q12HR ORAL 10/28/17 14:00 11/27/17 13:59 10/30/17 08:40 Ritonavir (Norvir) 100 mg TWICE A DAY ORAL 10/28/17 18:00 11/27/17 17:59 10/30/17 08:40 Sodium Chloride 1,000 ml @ 75 mls/hr [id number] IV 10/29/17 19:15 11/28/17 19:14 10/30/17 08:38 STEVEN DIXON Oct 30, 2017 13:46
[2017-10-30] MEDS: cefTRIAXone 1 GM in D5W 55 ML IVPB SCH (14:35)
[2017-10-30 16:00] VITALS: BP 137/76
[2017-10-30 20:00] VITALS: BP 141/86
[2017-10-31] VITALS: BP 144/85
[2017-10-31 04:00] VITALS: BP_SYST 134; BP_SYST 162; BP_DIAS 76; BP_DIAS 93
[2017-10-31] MEDS ORDERED: Loperamide 2mg cap ORAL PRN (07:45)
--- NOTE | 2017-10-31 07:45 | General Progress Note ---
Assessment/Plan Problem List: (1) Degenerative disc disease SNOMED: 61164567 (2) Neuropathy ICD Codes: G62.9 - Polyneuropathy, unspecified SNOMED: 454235332 (3) HIV (human immunodeficiency virus infection) ICD Codes: B20 - Human immunodeficiency virus [HIV] disease SNOMED: 10462935 (4) UTI (urinary tract infection) ICD Codes: N39.0 - Urinary tract infection, site not specified SNOMED: 68270167 (5) Avascular necrosis ICD Codes: M87.00 - Idiopathic aseptic necrosis of unspecified bone SNOMED: 650765553 Status: stable, not improved Assessment/Plan cdiff immodium abx per id pain rx adjusted agrees to mri spine/knee spine eval pending hiv rx Subjective ROS Limited/Unobtainable: No Constitutional: Reports: malaise, weakness HEENT: Reports: no symptoms Cardiovascular: Reports: no symptoms Respiratory: Reports: no symptoms Gastrointestinal/Abdominal: Reports: diarrhea Genitourinary: Reports: no symptoms 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: Reports: pre-existing deficit Endocrine: Reports: no symptoms Hematologic/Lymphatic: Reports: no symptoms Allergies: Coded Allergies: SULFAMETHOXAZOLE (Unverified Allergy, Unknown, 10/27/17) TRIMETHOPRIM (Unverified Allergy, Unknown, 10/27/17) All Systems: reviewed and negative except above Subjective c/o severe back pain and leg pain. having "nonstop" diarrhea. now agrees to mri if pain meds given before scan Objective Last 24 Hour Vital Signs Date Time Temp Pulse Resp B/P (MAP) Pulse Ox O2 Delivery O2 Flow Rate FiO2 10/31/17 04:00 96 Room Air 10/31/17 04:00 98.2 68 19 134/76 96 Room Air 98.2 10/31/17 00:00 96 Room Air 10/31/17 00:00 98.4 68 20 144/85 96 98.4 10/30/17 20:00 98.3 68 20 141/86 95 98.3 10/30/17 20:00 95 Nasal Cannula 2.0 10/30/17 16:00 98.6 68 20 137/76 97 Nasal Cannula 2.0 98.6 10/30/17 12:00 97.1 77 21 136/77 97 Room Air 97.1 10/30/17 08:39 67 135/83 10/30/17 08:39 67 135/83 10/30/17 08:00 97.9 67 20 135/83 97 Nasal Cannula 2.0 97.9 Intake and Output 10/30/17 10/31/17 19:00 07:00 Intake Total 1025 ml 1105 ml Balance 1025 ml 1105 ml Intake Oral 240 ml 730 ml IV Total 785 ml 375 ml # Voids 5 2 # Bowel Movements 3 Height (Feet): 5 Height (Inches): 5.00 Weight (Pounds): 155 Objective General Appearance: WD/WN, alert Neck: supple Cardiovascular: normal rate, regular rhythm Respiratory/Chest: chest wall non-tender, lungs clear, normal breath sounds Abdomen: normal bowel sounds, non tender, soft, no organomegaly Edema: no edema noted Arm (L), no edema noted Arm (R), no edema noted Leg (L), no edema noted Leg (R), no edema noted Pedal (L), no edema noted Pedal (R), no edema noted Generalized JARON HARRISON Oct 31, 2017 07:45
[2017-10-31] MEDS: Etravirine 100mg tab ORAL SCH ×2 (08:37→20:31)
[2017-10-31] MEDS: Isentress 400mg tab ORAL SCH ×2 (08:37→20:32)
[2017-10-31] MEDS: Fluconazole 100mg tab ORAL SCH (08:37)
[2017-10-31] MEDS: Ritonavir 100mg tab ORAL SCH ×2 (08:37→17:38)
[2017-10-31] MEDS: Metoprolol Succinate XL 25mg tab ORAL SCH (08:37)
[2017-10-31] MEDS: Heparin 5000 units/ml inj SUBQ SCH ×2 (08:40→20:32)
[2017-10-31 09:00] VITALS: BP 166/97
--- NOTE | 2017-10-31 11:32 | Progress Note ---
DATE: 10/30/2017 CARDIOLOGY PROGRESS NOTE SUBJECTIVE: The patient continues to have back and hip pain. He cannot mobilize due to the pain. Blood pressure readings are labile. OBJECTIVE: VITAL SIGNS: Blood pressure 110/66 to 160/94, heart rate 62 to 83, respiratory rate 19 to 20, he is afebrile. LUNGS: Clear. CARDIAC: Regular. ABDOMEN: Soft. EXTREMITIES: No edema. IMPRESSION: 1. Acute on chronic pain due to avascular necrosis. 2. Hypertension with accelerated blood pressure. 3. HIV/AIDS. 4. No signs of congestive heart failure. PLAN: 1. Pain control. 2. Imaging studies. 3. DVT prophylaxis. Price Mendieta M.D. DR: Sammie JOB#: [id number] CC:
--- NOTE | 2017-10-31 11:34 | Infectious Diseases Prog Note ---
Assessment/Plan Assessment/Plan antibiotics ; ceftriaxone, fluconazole A 1. e.coli UTI 2. HIV 3. groin fungal infection 4. avascular necrosis P 1. continue fluconazole 2 more days 2. continue ceftriaxone 3 more days 3. will follow up cultures Subjective Constitutional: Denies: fever, chills Respiratory: Denies: shortness of breath, dry cough Gastrointestinal/Abdominal: Reports: nausea, diarrhea; Denies: vomiting Musculoskeletal: Reports: pain Allergies: Coded Allergies: SULFAMETHOXAZOLE (Unverified Allergy, Unknown, 10/27/17) TRIMETHOPRIM (Unverified Allergy, Unknown, 10/27/17) Objective Vital Signs Last 24 Hour Vital Signs Date Time Temp Pulse Resp B/P (MAP) Pulse Ox O2 Delivery O2 Flow Rate FiO2 10/31/17 09:00 97.5 72 16 166/97 95 Nasal Cannula 2.0 97.5 10/31/17 08:37 72 166/97 10/31/17 08:37 72 166/97 10/31/17 04:00 96 Room Air 10/31/17 04:00 98.2 68 19 134/76 96 Room Air 98.2 10/31/17 00:00 96 Room Air 10/31/17 00:00 98.4 68 20 144/85 96 98.4 10/30/17 20:00 98.3 68 20 141/86 95 98.3 10/30/17 20:00 95 Nasal Cannula 2.0 10/30/17 16:00 98.6 68 20 137/76 97 Nasal Cannula 2.0 98.6 10/30/17 12:00 97.1 77 21 136/77 97 Room Air 97.1 Height (Feet): 5 Height (Inches): 5.00 Weight (Pounds): 155 Respiratory/Chest: lungs clear Cardiovascular: normal rate, regular rhythm, no gallop/murmur Abdomen: soft, non tender Extremities: no edema Current Medications Medications (Trade) Dose Ordered Sig/Roman Route PRN Reason Start Time Stop Time Status Last Admin Dose Admin Amlodipine Besylate (Norvasc) 5 mg DAILY ORAL 10/28/17 09:00 11/27/17 08:59 10/31/17 08:37 Ceftriaxone Sodium 1 gm/ Dextrose 55 ml @ 110 mls/hr Q24H IVPB 10/29/17 13:00 11/05/17 12:59 10/30/17 14:35 Clonidine HCl (Catapres Tab) 0.1 mg Q4H PRN ORAL SBP above 150 10/27/17 19:30 11/26/17 19:29 10/30/17 06:12 Entecavir (Baraclude) 1 mg DAILY ORAL 10/28/17 15:00 11/27/17 14:59 10/31/17 09:14 Etravirine (Intelence) 200 mg Q12HR ORAL 10/29/17 14:00 11/28/17 13:59 10/31/17 08:37 Fluconazole (Diflucan) 100 mg DAILY ORAL 10/27/17 19:15 11/03/17 19:14 10/31/17 08:37 Heparin Sodium (Porcine) (Heparin 5000 units/ml) 5,000 units EVERY 12 HOURS SUBQ 10/27/17 21:00 11/26/17 20:59 10/31/17 08:40 Hydromorphone HCl (Dilaudid) 1 mg Q4H PRN IVP For Pain 10/30/17 12:00 11/06/17 11:59 10/31/17 08:38 Loperamide HCl (Imodium) 4 mg Q4H PRN ORAL Diarrhea 10/31/17 07:45 11/30/17 07:44 Lorazepam (Ativan) 1 mg Q8H PRN ORAL ANXIETY 10/27/17 13:45 11/03/17 13:44 10/29/17 00:12 Metoprolol Succinate (Toprol XL) 25 mg DAILY ORAL 10/29/17 09:00 11/28/17 08:59 10/31/17 08:37 Ondansetron HCl (Zofran) 4 mg Q6H PRN IVP Nausea & Vomiting 10/27/17 13:45 11/26/17 13:44 10/31/17 04:31 Pantoprazole (Protonix) 40 mg DAILY ORAL 10/31/17 09:00 11/30/17 08:59 10/31/17 08:37 Raltegravir (Isentress) 400 mg Q12HR ORAL 10/28/17 14:00 11/27/17 13:59 10/31/17 08:37 Ritonavir (Norvir) 100 mg TWICE A DAY ORAL 10/28/17 18:00 11/27/17 17:59 10/31/17 08:37 Sodium Chloride 1,000 ml @ 75 mls/hr [id number] IV 10/29/17 19:15 11/28/17 19:14 10/31/17 11:06 XENA FOX Oct 31, 2017 11:34
[2017-10-31 12:00] VITALS: BP 151/81
[2017-10-31 12:45] LABS: BASOPHILS % (AUTO) 0.9 % (0.0-2.0); EOSINOPHILS % (AUTO) 1.3 % (0.0-3.0); HEMATOCRIT 40.7 % (42.0-52.0); HEMOGLOBIN 15.1 G/DL (14.2-18.0); LYMPHOCYTES % (AUTO) 32.6 % (20.0-45.0); MEAN CORPUSCULAR VOLUME 98 FL (80-99); MONOCYTES % (AUTO) 8.7 % (1.0-10.0); NEUTROPHILS % (AUTO) 56.5 % (45.0-75.0); PLATELET COUNT 161 K/UL (150-450); RED BLOOD COUNT 4.14 M/UL (4.70-6.10); RED CELL DISTRIBUTION WIDTH 11.8 % (11.6-14.8); WHITE BLOOD COUNT 7.7 K/UL (4.8-10.8)
[2017-10-31 13:04] LABS: ALANINE AMINOTRANSFERASE 42 U/L (12-78); ALBUMIN 3.3 G/DL (3.4-5.0); ALBUMIN/GLOBULIN RATIO 0.8 (1.0-2.7); ALKALINE PHOSPHATASE 123 U/L (46-116); ANION GAP 10 mmol/L (5-15); ASPARTATE AMINO TRANSFERASE 41 U/L (15-37); BILIRUBIN,TOTAL 0.5 MG/DL (0.2-1.0); BLOOD UREA NITROGEN 14 mg/dL (7-18); CALCIUM 8.8 MG/DL (8.5-10.1); CARBON DIOXIDE 25 MMOL/L (21-32); CHLORIDE 108 MMOL/L (98-107); CREATININE 0.8 MG/DL (0.55-1.30); POTASSIUM 3.4 MMOL/L (3.5-5.1); SODIUM 143 MMOL/L (136-145)
[2017-10-31] MEDS: cefTRIAXone 1 GM in D5W 55 ML IVPB SCH (13:54)
[2017-10-31 16:00] VITALS: BP 146/72
[2017-10-31] MEDS ORDERED: Tums 500mg ORAL PRN (17:30)
[2017-10-31 20:00] VITALS: BP 154/81
--- NOTE | 2017-10-31 22:30 | Progress Note ---
DATE: 10/31/2017 CARDIOLOGY PROGRESS NOTE SUBJECTIVE: The patient continues to have back pain and leg pain now with nonstop diarrhea. No chest pain or shortness of breath. MRI imaging is pending. PHYSICAL EXAMINATION: VITAL SIGNS: Blood pressure 134/76, pulse 68, and respiratory rate 19. LUNGS: Clear. CARDIAC: Regular rhythm and rate. Normal S1 and S2 with a fourth heart sound. ABDOMEN: Soft. EXTREMITIES: With muscle atrophy and no edema. LABORATORY DATA: White count 7.7 and hemoglobin 15. Potassium 3.4, BUN 14, and creatinine 0.8. Albumin 3.3. IMPRESSION: 1. Degenerative disk disease. 2. Acute on chronic pain. 3. Avascular necrosis. 4. Hypokalemia. 5. Hypertensive heart disease. 6. HIV/AIDS. 7. Muscle atrophy. 8. Functional decline. 9. Unsteady gait. 10. Orthostatic risk. 11. Mild protein-calorie malnutrition. PLAN: Protein supplement. Maintain adequate hydration. tight blood pressure control. Continue antiretroviral therapy. Await MRI scan. Spine evaluation and mobilize as able with ongoing pain control measures. Price Mendieta M.D. : PABLO JOB#: [id number] CC:
[2017-11-01] VITALS (7 sets, daily range): BP systolic 135–174; BP diastolic 79–94
--- NOTE | 2017-11-01 08:16 | General Progress Note ---
Assessment/Plan Problem List: (1) Degenerative disc disease SNOMED: 06544523 (2) Neuropathy ICD Codes: G62.9 - Polyneuropathy, unspecified SNOMED: 048468806 (3) HIV (human immunodeficiency virus infection) ICD Codes: B20 - Human immunodeficiency virus [HIV] disease SNOMED: 05905518 (4) UTI (urinary tract infection) ICD Codes: N39.0 - Urinary tract infection, site not specified SNOMED: 56462371 (5) Avascular necrosis ICD Codes: M87.00 - Idiopathic aseptic necrosis of unspecified bone SNOMED: 623070325 Status: stable, progressing Assessment/Plan check cdiff immodium as needed abx per id pain rx adjusted agrees to mri spine/knee today spine eval pending- available later today hiv rx per id pt/ot Subjective ROS Limited/Unobtainable: No Constitutional: Reports: weakness HEENT: Reports: no symptoms Cardiovascular: Reports: no symptoms Respiratory: Reports: cough Gastrointestinal/Abdominal: Reports: abdominal pain Genitourinary: Reports: no symptoms 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: Reports: pre-existing deficit Endocrine: Reports: no symptoms Hematologic/Lymphatic: Reports: anemia Allergies: Coded Allergies: SULFAMETHOXAZOLE (Unverified Allergy, Unknown, 10/27/17) TRIMETHOPRIM (Unverified Allergy, Unknown, 10/27/17) All Systems: reviewed and negative except above Subjective c/o severe back pain and leg pain. states he cant move his legs due to pain. MRI ordered yesterday of L spine. Objective Last 24 Hour Vital Signs Date Time Temp Pulse Resp B/P (MAP) Pulse Ox O2 Delivery O2 Flow Rate FiO2 11/01/17 08:00 98.2 71 20 151/89 97 98.2 11/01/17 04:00 97.9 60 20 135/79 97 97.9 11/01/17 01:30 64 154/82 11/01/17 00:58 174/82 11/01/17 00:00 97.9 68 20 174/94 97 97.9 10/31/17 20:00 96 Nasal Cannula 2.0 10/31/17 20:00 97.5 69 20 154/81 96 97.5 10/31/17 16:00 97.3 64 16 146/72 93 Nasal Cannula 2.0 97.3 10/31/17 12:00 97.9 65 16 151/81 93 Nasal Cannula 2.0 97.9 10/31/17 09:00 97.5 72 16 166/97 95 Nasal Cannula 2.0 97.5 10/31/17 08:37 72 166/97 10/31/17 08:37 72 166/97 Intake and Output 10/31/17 11/01/17 19:00 07:00 Intake Total 1265 ml 1145 ml Output Total 1350 ml Balance 1265 ml -205 ml Intake Oral 480 ml 320 ml IV Total 785 ml 825 ml Output Urine Total 1350 ml # Voids 3 Height (Feet): 5 Height (Inches): 5.00 Weight (Pounds): 155 Objective General Appearance: WD/WN, alert Neck: supple Cardiovascular: normal rate, regular rhythm Respiratory/Chest: chest wall non-tender, lungs clear, normal breath sounds Abdomen: normal bowel sounds, non tender, soft, no organomegaly Edema: no edema noted Arm (L), no edema noted Arm (R), no edema noted Leg (L), no edema noted Leg (R), no edema noted Pedal (L), no edema noted Pedal (R), no edema noted Generalized JARON HARRISON November 01, 2017 08:16
[2017-11-01 08:57] LABS: ALANINE AMINOTRANSFERASE 43 U/L (12-78); ALBUMIN 3.2 G/DL (3.4-5.0); ALBUMIN/GLOBULIN RATIO 0.8 (1.0-2.7); ALKALINE PHOSPHATASE 121 U/L (46-116); ANION GAP 9 mmol/L (5-15); ASPARTATE AMINO TRANSFERASE 32 U/L (15-37); BILIRUBIN,TOTAL 0.6 MG/DL (0.2-1.0); BLOOD UREA NITROGEN 10 mg/dL (7-18); CALCIUM 8.8 MG/DL (8.5-10.1); CARBON DIOXIDE 26 MMOL/L (21-32); CHLORIDE 106 MMOL/L (98-107); CREATININE 0.9 MG/DL (0.55-1.30); POTASSIUM 3.5 MMOL/L (3.5-5.1); SODIUM 141 MMOL/L (136-145)
[2017-11-01] MEDS: Etravirine 100mg tab ORAL SCH ×2 (09:18→19:56)
[2017-11-01] MEDS: Ritonavir 100mg tab ORAL SCH ×2 (09:18→18:42)
[2017-11-01] MEDS: Fluconazole 100mg tab ORAL SCH (09:18)
[2017-11-01] MEDS: Metoprolol Succinate XL 25mg tab ORAL SCH (09:18)
[2017-11-01] MEDS: Isentress 400mg tab ORAL SCH ×2 (09:18→19:55)
[2017-11-01] MEDS: Heparin 5000 units/ml inj SUBQ SCH ×2 (09:23→20:00)
--- NOTE | 2017-11-01 10:40 | Infectious Diseases Prog Note ---
Assessment/Plan Assessment/Plan antibiotics ; ceftriaxone, fluconazole A 1. e.coli UTI 2. HIV 3. groin fungal infection 4. avascular necrosis 5. rectal VRE colonization P 1. continue fluconazole 1 more day 2. continue ceftriaxone 2 more days 3. will follow up cultures Subjective ROS Limited/Unobtainable: Yes Constitutional: Denies: fever, chills Gastrointestinal/Abdominal: Reports: nausea, vomiting - yesterday; Denies: diarrhea Musculoskeletal: Reports: pain Allergies: Coded Allergies: SULFAMETHOXAZOLE (Unverified Allergy, Unknown, 10/27/17) TRIMETHOPRIM (Unverified Allergy, Unknown, 10/27/17) Objective Vital Signs Last 24 Hour Vital Signs Date Time Temp Pulse Resp B/P (MAP) Pulse Ox O2 Delivery O2 Flow Rate FiO2 11/01/17 09:18 71 151/89 11/01/17 09:18 71 151/89 11/01/17 08:00 98.2 71 20 151/89 97 98.2 11/01/17 04:00 97.9 60 20 135/79 97 97.9 11/01/17 01:30 64 154/82 11/01/17 00:58 174/82 11/01/17 00:00 97.9 68 20 174/94 97 97.9 10/31/17 20:00 96 Nasal Cannula 2.0 10/31/17 20:00 97.5 69 20 154/81 96 97.5 10/31/17 16:00 97.3 64 16 146/72 93 Nasal Cannula 2.0 97.3 10/31/17 12:00 97.9 65 16 151/81 93 Nasal Cannula 2.0 97.9 Height (Feet): 5 Height (Inches): 5.00 Weight (Pounds): 155 Respiratory/Chest: lungs clear Cardiovascular: normal rate, regular rhythm, no gallop/murmur Abdomen: soft, non tender Extremities: no edema Laboratory Tests Test 11/01/17 07:05 Sodium Level 141 MMOL/L (136-145) Potassium Level 3.5 MMOL/L (3.5-5.1) Chloride Level 106 MMOL/L (98-107) Carbon Dioxide Level 26 MMOL/L (21-32) Anion Gap 9 mmol/L (5-15) Blood Urea Nitrogen 10 mg/dL (7-18) Creatinine 0.9 MG/DL (0.55-1.30) Estimat Glomerular Filtration Rate > 60 mL/min (>60) Glucose Level 102 MG/DL (74-106) Calcium Level 8.8 MG/DL (8.5-10.1) Magnesium Level 1.8 MG/DL (1.8-2.4) Total Bilirubin 0.6 MG/DL (0.2-1.0) Aspartate Amino Transf (AST/SGOT) 32 U/L (15-37) Alanine Aminotransferase (ALT/SGPT) 43 U/L (12-78) Alkaline Phosphatase 121 U/L (46-116) H Pro-B-Type Natriuretic Peptide 362 pg/mL (0-125) H Total Protein 7.3 G/DL (6.4-8.2) Albumin 3.2 G/DL (3.4-5.0) L Globulin 4.1 g/dL Albumin/Globulin Ratio 0.8 (1.0-2.7) L Current Medications Medications (Trade) Dose Ordered Sig/Roman Route PRN Reason Start Time Stop Time Status Last Admin Dose Admin Amlodipine Besylate (Norvasc) 5 mg DAILY ORAL 10/28/17 09:00 11/27/17 08:59 11/01/17 09:18 Calcium Carbonate (Tums) 500 mg Q3H PRN ORAL heartburn 10/31/17 17:30 11/30/17 17:29 10/31/17 17:37 Ceftriaxone Sodium 1 gm/ Dextrose 55 ml @ 110 mls/hr Q24H IVPB 10/29/17 13:00 11/05/17 12:59 10/31/17 13:54 Clonidine HCl (Catapres Tab) 0.1 mg Q4H PRN ORAL SBP above 150 10/27/17 19:30 11/26/17 19:29 11/01/17 00:58 Entecavir (Baraclude) 1 mg DAILY ORAL 10/28/17 15:00 11/27/17 14:59 11/01/17 09:17 Etravirine (Intelence) 200 mg Q12HR ORAL 10/29/17 14:00 11/28/17 13:59 11/01/17 09:18 Fluconazole (Diflucan) 100 mg DAILY ORAL 10/27/17 19:15 11/03/17 19:14 11/01/17 09:18 Heparin Sodium (Porcine) (Heparin 5000 units/ml) 5,000 units EVERY 12 HOURS SUBQ 10/27/17 21:00 11/26/17 20:59 11/01/17 09:23 Hydromorphone HCl (Dilaudid) 2 mg Q4H PRN IVP For Pain 11/01/17 10:00 11/08/17 09:59 Loperamide HCl (Imodium) 4 mg Q4H PRN ORAL Diarrhea 10/31/17 07:45 11/30/17 07:44 Lorazepam (Ativan) 1 mg Q8H PRN ORAL ANXIETY 10/27/17 13:45 11/03/17 13:44 10/29/17 00:12 Metoprolol Succinate (Toprol XL) 25 mg DAILY ORAL 10/29/17 09:00 11/28/17 08:59 11/01/17 09:18 Ondansetron HCl (Zofran) 4 mg Q6H PRN IVP Nausea & Vomiting 10/27/17 13:45 11/26/17 13:44 10/31/17 20:32 Pantoprazole (Protonix) 40 mg DAILY ORAL 10/31/17 09:00 11/30/17 08:59 11/01/17 09:18 Raltegravir (Isentress) 400 mg Q12HR ORAL 10/28/17 14:00 11/27/17 13:59 11/01/17 09:18 Ritonavir (Norvir) 100 mg TWICE A DAY ORAL 10/28/17 18:00 11/27/17 17:59 11/01/17 09:18 Sodium Chloride 1,000 ml @ 75 mls/hr [id number] IV 10/29/17 19:15 11/28/17 19:14 11/01/17 00:57 XENA FOX November 01, 2017 10:40
--- NOTE | 2017-11-01 11:13 | Consultation ---
Consult Note Consult Note #[id number] dict avn B hips Assessment/Plan avd B hips needs to see hip replacement specialist ALICIA SANTOS November 01, 2017 11:13
[2017-11-01] MEDS ORDERED: LORazepam Inj 2mg/ml 1ml IV PRN (13:15)
[2017-11-01] MEDS: cefTRIAXone 1 GM in D5W 55 ML IVPB SCH (13:34)
--- NOTE | 2017-11-01 15:37 | Diagnostic Imaging Report ---
Indication: Back pain Technique: MRI examination of the Lumbar spine was performed in a 1.5 Marleni magnet. Sequences obtained include sagittal and axial T1 and T2 fast spin echo, and sagittal STIR. Comparison: none Findings: There is a convex scoliosis of the lumbar spine convex to the left. There is a rotatory component. Multilevel degenerative disease is present. This will be described in a level by level basis. The visualized part of the distal spinal cord is normal in appearance. There is no compression of the cord. Conus medullaris is seen at about the level of T12-L1. Bone marrow signal is essentially normal. There is no evidence of bone trauma. T12-L1: There is some moderate to severe disc desiccation and narrowing at this level with endplate spur patient. Concentric disc bulge is present. There is no central stenosis. There is mild hypertrophy of the facets. L1-2: Moderate to severe disc disease demonstrated at this level. There is a moderate to wide based concentric disc bulge present with endplate spur formation. There is mild central stenosis and narrowing of the lateral recess. Moderate facet spur formation noted. Foraminal stenosis is moderate on the right and mild on the left at this level. L2-3: Moderate to severe disc disease with concentric disc bulge, desiccation and narrowing, endplate spur formation, moderate facet arthropathy. Mild central stenosis of the canal and lateral recess narrowing demonstrated. Moderate to severe right foraminal stenosis and moderate left foraminal stenosis demonstrated. L3-4: Mild narrowing of the disc demonstrated. Moderate concentric disc bulge demonstrated. Narrowing of the lateral recess, severe right foraminal stenosis and moderate left foraminal stenosis demonstrated. No significant central canal stenosis. L4-5: Moderate narrowing of the intervertebral disc with mild concentric disc bulge and mild anterolisthesis. Moderate to severe facet hypertrophy. Moderate to severe bilateral foraminal stenosis. No central canal stenosis demonstrated. L5-S1: Moderate degenerative disc disease with concentric disc bulge, moderate facet arthropathy, no central stenosis and moderate to severe left foraminal stenosis. Incidental partially imaged cysts within the left kidney are demonstrated. Tortuous abdominal aorta noted. IMPRESSION: Multilevel degenerative disc disease and facet arthropathy variable degrees but there are generally moderate to severe in degree. Scoliosis convex to the left. Findings result in variable degrees of central, lateral recess and neural foraminal stenosis. L1-2: Mild central canal and lateral recess stenosis. Moderate right and mild left foraminal stenosis. L2-3: Mild central canal/lateral recess stenosis. Severe right foraminal and moderate left foraminal stenosis. L3-4: Narrowing of the lateral recess. Moderate left foraminal stenosis. L4-5: Severe bilateral foraminal stenosis. L5-S1: Severe left foraminal stenosis.
--- NOTE | 2017-11-01 16:30 | Consultation ---
DATE OF CONSULTATION: 11/01/2017 SPINE SURGICAL CONSULTATION CONSULTING PHYSICIAN: Sebastien Melvin M.D. REFERRING PHYSICIAN: Enoc Corrales M.D. REASON FOR CONSULTATION: Spinal pathology. HISTORY OF PRESENT ILLNESS: The patient is a 67-year-old gentleman with severe history of hip pain, secondary back pain, who for the course of the last several years has been nonambulatory according to the patient due to knee arthritis. The patient is a very poor historian. The patient indicates that at times he is a household ambulator with a use of a walker. He indicates that last week, the pain became very severe in his left hip down his left leg. The patient indicates that he has undergone epidural injections for the lumbar spine with little or no improvement. A spine surgical consultation was obtained based on CT abnormalities of the lumbar spine. In addition, the CT of the hips demonstrate avascular necrosis. MRI of the hips confirmed avascular necrosis. Due to marked pain, the patient presents for evaluation. The patient does have significant history of HIV. PAST MEDICAL HISTORY: As above. PAST SURGICAL HISTORY: None. MEDICATIONS: Chart reconciliation report reviewed. ALLERGIES: Bactrim. PHYSICAL EXAMINATION: The patient is a pleasant gentleman lying in a hospital bed with his knees and hips flexed consistent with flexion contractures/arthrofibrosis. Any attempts to mobilize the hips or the knees resulted in severe pain and the patient then refused further evaluation. Sensation in both legs is intact. Reflexes in both legs are absent. Motor strength testing cannot be obtained due to the rigidity of the hips and the knees bilaterally. Motor strength testing, however, in the ankle and foot appears unremarkable. Range of motion of the lumbar spine could not be performed. The patient was unable to stand. DIAGNOSTIC DATA: MRI and CTs of bilateral hips and pelvis confirmed advanced AVN with advanced collapse of the femoral head and secondary osteophyte formation. There is notable pannus of bilateral hips. CT of the lumbar spine demonstrates degenerative changes with vacuum phenomenon from T12 through S1. Central canal is not particularly compressed. There is a mild scoliosis. DIAGNOSES: 1. 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 2. Advanced avascular necrosis, bilateral hips. 3. Secondary degenerative changes of the spine. PLAN: The patient's problem does not primarily stem from his lumbar spine. His pathology emanates from the bilateral hips. Unfortunately, he has such severe arthrosis and advanced collapse that it is not clear whether or not surgical intervention is feasible. I would recommend that he be evaluated by orthopedic surgeon specializing in hip replacements. At this point, I will sign off and will defer further workup to an extremity orthopedic surgeon. Sebastien Jamie Melvin DR: DANA JOB#: [id number] CC:
--- NOTE | 2017-11-01 16:46 | Diagnostic Imaging Report ---
Indication: Bilateral knee pain Technique: MRI of the right knee was imaged in a 1.5 Marleni magnet. Pulse sequences obtained include coronal T1 fast spin-echo, STIR, sagittal coronal and axial proton fast spin-echo with fat saturation, sagittal proton fast spin-echo. Comparison: None Findings: The patient is severely contracted and as such the standard knee coil could not be utilized. A torso array coil was used which is not optimal for evaluation of the knee. The knee was scanned in 90 degree flexed position. Bone marrow signal is grossly normal. There is no evidence of an acute fracture or bone marrow edema. In terms of evaluation of articular cartilage and internal derangement, the study is nondiagnostic. Portions of the menisci are identified and as such appear normal in morphology. No obvious collateral ligament injury identified. The cruciate ligaments are identified but fine detail is not possible to evaluate on this study. There is no joint effusion. IMPRESSION: Limited evaluation of the right knee due to severe contraction. No obvious pathology of note
--- NOTE | 2017-11-01 16:47 | Diagnostic Imaging Report ---
Indication: Bilateral knee pain Technique: MRI of the left knee was imaged in a 1.5 Marleni magnet. Pulse sequences obtained include coronal T1 fast spin-echo, STIR, sagittal coronal and axial proton fast spin-echo with fat saturation, sagittal proton fast spin-echo. Comparison: None Findings: Imaging of the left knee is nondiagnostic. In addition to the contracted state and inability to use the standard knee coil, the study is degraded further by motion. IMPRESSION: Nondiagnostic exam of the left knee
[2017-11-02] VITALS: BP 157/98
[2017-11-02 06:41] VITALS: BP 164/99
--- NOTE | 2017-11-02 08:12 | General Progress Note ---
Assessment/Plan Problem List: (1) Degenerative disc disease SNOMED: 81073594 (2) Neuropathy ICD Codes: G62.9 - Polyneuropathy, unspecified SNOMED: 249610693 (3) HIV (human immunodeficiency virus infection) ICD Codes: B20 - Human immunodeficiency virus [HIV] disease SNOMED: 54978014 (4) UTI (urinary tract infection) ICD Codes: N39.0 - Urinary tract infection, site not specified SNOMED: 06406469 (5) Avascular necrosis ICD Codes: M87.00 - Idiopathic aseptic necrosis of unspecified bone SNOMED: 181639603 Status: stable, progressing Assessment/Plan cont pt/ot refer to snf- pt resistant pain rx abx per ID Subjective ROS Limited/Unobtainable: No Constitutional: Reports: malaise, weakness HEENT: Reports: no symptoms Cardiovascular: Reports: no symptoms Respiratory: Reports: no symptoms Gastrointestinal/Abdominal: Reports: no symptoms Genitourinary: Reports: no symptoms 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: Reports: pre-existing deficit Endocrine: Reports: no symptoms Hematologic/Lymphatic: Reports: no symptoms Allergies: Coded Allergies: SULFAMETHOXAZOLE (Unverified Allergy, Unknown, 10/27/17) TRIMETHOPRIM (Unverified Allergy, Unknown, 10/27/17) All Systems: reviewed and negative except above Subjective c/o severe back pain and leg pain. states he cant move his legs due to pain. MRI results reviewed. Objective Last 24 Hour Vital Signs Date Time Temp Pulse Resp B/P (MAP) Pulse Ox O2 Delivery O2 Flow Rate FiO2 11/02/17 06:41 98.0 83 18 164/99 96 98.0 11/02/17 00:00 97.6 71 21 157/98 97 97.6 11/01/17 20:00 97.1 73 20 156/84 94 97.1 11/01/17 16:00 97.9 82 20 154/91 97 97.9 11/01/17 12:00 98.0 72 20 147/94 97 98.0 11/01/17 09:18 71 151/89 11/01/17 09:18 71 151/89 Intake and Output 11/01/17 11/02/17 19:00 07:00 Intake Total 635 ml 825 ml Output Total 950 ml Balance -315 ml 825 ml Intake Oral 560 ml IV Total 75 ml 825 ml Output Urine Total 950 ml Height (Feet): 5 Height (Inches): 5.00 Weight (Pounds): 155 Objective General Appearance: WD/WN, alert Neck: supple Cardiovascular: normal rate, regular rhythm Respiratory/Chest: chest wall non-tender, lungs clear, normal breath sounds Abdomen: normal bowel sounds, non tender, soft, no organomegaly Edema: no edema noted Arm (L), no edema noted Arm (R), no edema noted Leg (L), no edema noted Leg (R), no edema noted Pedal (L), no edema noted Pedal (R), no edema noted Generalized JARON HARRISON November 02, 2017 08:12
[2017-11-02 09:00] VITALS: BP 158/93
[2017-11-02 09:35] LABS: ALANINE AMINOTRANSFERASE 39 U/L (12-78); ALBUMIN 3.3 G/DL (3.4-5.0); ALBUMIN/GLOBULIN RATIO 0.8 (1.0-2.7); ALKALINE PHOSPHATASE 139 U/L (46-116); ANION GAP 9 mmol/L (5-15); ASPARTATE AMINO TRANSFERASE 27 U/L (15-37); BILIRUBIN,TOTAL 0.5 MG/DL (0.2-1.0); BLOOD UREA NITROGEN 14 mg/dL (7-18); CALCIUM 8.7 MG/DL (8.5-10.1); CARBON DIOXIDE 26 MMOL/L (21-32); CHLORIDE 107 MMOL/L (98-107); CREATININE 0.9 MG/DL (0.55-1.30); POTASSIUM 3.4 MMOL/L (3.5-5.1); SODIUM 142 MMOL/L (136-145)
[2017-11-02] MEDS: Isentress 400mg tab ORAL SCH ×2 (10:17→20:54)
[2017-11-02] MEDS: Ritonavir 100mg tab ORAL SCH ×2 (10:17→18:05)
[2017-11-02] MEDS: Fluconazole 100mg tab ORAL SCH (10:17)
[2017-11-02] MEDS: Metoprolol Succinate XL 25mg tab ORAL SCH (10:19)
[2017-11-02] MEDS: Etravirine 100mg tab ORAL SCH ×2 (10:19→20:54)
[2017-11-02] MEDS: Heparin 5000 units/ml inj SUBQ SCH ×2 (10:22→20:56)
[2017-11-02 12:00] VITALS: BP 176/97
[2017-11-02] MEDS: cefTRIAXone 1 GM in D5W 55 ML IVPB SCH (12:48)
--- NOTE | 2017-11-02 13:43 | Infectious Diseases Prog Note ---
Assessment/Plan Assessment/Plan A 1. e.coli UTI 2. HIV 3. groin fungal infection 4. avascular necrosis of femurs 6. VRE colonization 7. Lumbar spinal stenosis 8. OA of knees P 1.discontinue fluconazole , continue ceftriaxone X 1 day 2. Continue ART Subjective ROS Limited/Unobtainable: No Constitutional: Reports: no symptoms HEENT: Reports: other - dry mouth Respiratory: Reports: no symptoms Cardiovascular: Reports: no symptoms Gastrointestinal/Abdominal: Reports: no symptoms Genitourinary: Reports: no symptoms Musculoskeletal: Reports: pain, other - controlled Allergies: Coded Allergies: SULFAMETHOXAZOLE (Unverified Allergy, Unknown, 10/27/17) TRIMETHOPRIM (Unverified Allergy, Unknown, 10/27/17) Objective Vital Signs Last 24 Hour Vital Signs Date Time Temp Pulse Resp B/P (MAP) Pulse Ox O2 Delivery O2 Flow Rate FiO2 11/02/17 11:13 97.9 11/02/17 10:43 97.9 11/02/17 10:19 86 158/93 11/02/17 10:19 158/93 11/02/17 10:18 86 158/93 11/02/17 09:00 97.9 86 17 158/93 98 Room Air 97.9 11/02/17 06:41 98.0 83 18 164/99 96 98.0 11/02/17 00:00 97.6 71 21 157/98 97 97.6 11/01/17 20:00 97.1 73 20 156/84 94 97.1 11/01/17 16:00 97.9 82 20 154/91 97 97.9 Height (Feet): 5 Height (Inches): 5.00 Weight (Pounds): 155 General Appearance: no acute distress HEENT: mucous membranes moist Respiratory/Chest: lungs clear Cardiovascular: normal rate Abdomen: soft, non tender Extremities: no edema, other - arthritic channges of knee L>R 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: alert, oriented x 3, responsive Microbiology Date/Time Source Procedure Growth Status 11/01/17 11:30 Stool Clostridium difficile Toxin Assay - Final Complete Laboratory Tests Test 11/02/17 07:10 Sodium Level 142 MMOL/L (136-145) Potassium Level 3.4 MMOL/L (3.5-5.1) L Chloride Level 107 MMOL/L (98-107) Carbon Dioxide Level 26 MMOL/L (21-32) Anion Gap 9 mmol/L (5-15) Blood Urea Nitrogen 14 mg/dL (7-18) Creatinine 0.9 MG/DL (0.55-1.30) Estimat Glomerular Filtration Rate > 60 mL/min (>60) Glucose Level 95 MG/DL (74-106) Calcium Level 8.7 MG/DL (8.5-10.1) Total Bilirubin 0.5 MG/DL (0.2-1.0) Aspartate Amino Transf (AST/SGOT) 27 U/L (15-37) Alanine Aminotransferase (ALT/SGPT) 39 U/L (12-78) Alkaline Phosphatase 139 U/L (46-116) H Total Protein 7.6 G/DL (6.4-8.2) Albumin 3.3 G/DL (3.4-5.0) L Globulin 4.3 g/dL Albumin/Globulin Ratio 0.8 (1.0-2.7) L Current Medications Medications (Trade) Dose Ordered Sig/Roman Route PRN Reason Start Time Stop Time Status Last Admin Dose Admin Amlodipine Besylate (Norvasc) 5 mg DAILY ORAL 10/28/17 09:00 11/27/17 08:59 11/02/17 10:18 Calcium Carbonate (Tums) 500 mg Q3H PRN ORAL heartburn 10/31/17 17:30 11/30/17 17:29 10/31/17 17:37 Ceftriaxone Sodium 1 gm/ Dextrose 55 ml @ 110 mls/hr Q24H IVPB 10/29/17 13:00 11/05/17 12:59 11/02/17 12:48 Clonidine HCl (Catapres Tab) 0.1 mg Q4H PRN ORAL SBP above 150 10/27/17 19:30 11/26/17 19:29 11/02/17 10:19 Entecavir (Baraclude) 1 mg DAILY ORAL 10/28/17 15:00 11/27/17 14:59 11/02/17 10:18 Etravirine (Intelence) 200 mg Q12HR ORAL 10/29/17 14:00 11/28/17 13:59 11/02/17 10:19 Fluconazole (Diflucan) 100 mg DAILY ORAL 10/27/17 19:15 11/03/17 19:14 11/02/17 10:17 Heparin Sodium (Porcine) (Heparin 5000 units/ml) 5,000 units EVERY 12 HOURS SUBQ 10/27/17 21:00 11/26/17 20:59 11/02/17 10:22 Hydromorphone HCl (Dilaudid) 2 mg Q4H PRN IVP For Pain 11/01/17 10:00 11/08/17 09:59 11/02/17 10:43 Loperamide HCl (Imodium) 4 mg Q4H PRN ORAL Diarrhea 10/31/17 07:45 11/30/17 07:44 Lorazepam (Ativan) 1 mg Q8H PRN ORAL ANXIETY 10/27/17 13:45 11/03/17 13:44 10/29/17 00:12 Metoprolol Succinate (Toprol XL) 25 mg DAILY ORAL 10/29/17 09:00 11/28/17 08:59 11/02/17 10:19 Ondansetron HCl (Zofran) 4 mg Q6H PRN IVP Nausea & Vomiting 10/27/17 13:45 11/26/17 13:44 11/02/17 10:44 Pantoprazole (Protonix) 40 mg DAILY ORAL 10/31/17 09:00 11/30/17 08:59 11/02/17 10:18 Raltegravir (Isentress) 400 mg Q12HR ORAL 10/28/17 14:00 11/27/17 13:59 11/02/17 10:17 Ritonavir (Norvir) 100 mg TWICE A DAY ORAL 10/28/17 18:00 11/27/17 17:59 11/02/17 10:17 Sodium Chloride 1,000 ml @ 75 mls/hr [id number] IV 10/29/17 19:15 11/28/17 19:14 11/02/17 06:41 STEVEN DIXON November 02, 2017 13:43
[2017-11-02 16:00] VITALS: BP 166/99
[2017-11-02 20:00] VITALS: BP 167/99
[2017-11-03] VITALS: BP 139/92
[2017-11-03 04:00] VITALS: BP 141/83
[2017-11-03 08:00] VITALS: BP 153/91
--- NOTE | 2017-11-03 08:18 | General Progress Note ---
Assessment/Plan Problem List: (1) Degenerative disc disease SNOMED: 12036868 (2) Neuropathy ICD Codes: G62.9 - Polyneuropathy, unspecified SNOMED: 693982221 (3) HIV (human immunodeficiency virus infection) ICD Codes: B20 - Human immunodeficiency virus [HIV] disease SNOMED: 12475507 (4) UTI (urinary tract infection) ICD Codes: N39.0 - Urinary tract infection, site not specified SNOMED: 93079232 (5) Avascular necrosis ICD Codes: M87.00 - Idiopathic aseptic necrosis of unspecified bone SNOMED: 675893450 Status: stable, progressing Assessment/Plan cont pt/ot dc planning with home health pain rx abx per ID start oral steroids with fast taper for arthritis dc tomorrow Subjective ROS Limited/Unobtainable: No Constitutional: Reports: malaise, weakness HEENT: Reports: no symptoms Cardiovascular: Reports: no symptoms Respiratory: Reports: no symptoms Gastrointestinal/Abdominal: Reports: no symptoms Genitourinary: Reports: no symptoms 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: Reports: pre-existing deficit Endocrine: Reports: no symptoms Hematologic/Lymphatic: Reports: no symptoms Allergies: Coded Allergies: SULFAMETHOXAZOLE (Unverified Allergy, Unknown, 10/27/17) TRIMETHOPRIM (Unverified Allergy, Unknown, 10/27/17) All Systems: reviewed and negative except above Subjective c/o severe back pain and leg pain. states he cant move his legs due to pain. MRI results reviewed with pt refusing snf. wants to go back to assisted living with home health. Objective Last 24 Hour Vital Signs Date Time Temp Pulse Resp B/P (MAP) Pulse Ox O2 Delivery O2 Flow Rate FiO2 11/03/17 04:00 98.2 71 19 141/83 96 98.2 11/03/17 00:00 98.2 77 18 139/92 96 98.2 11/02/17 20:54 167/99 11/02/17 20:00 98.3 75 17 167/99 82 98.3 11/02/17 17:21 98.3 11/02/17 16:51 98.3 11/02/17 16:41 176/97 11/02/17 16:00 98.5 76 18 166/99 95 Room Air 98.5 11/02/17 12:00 98.3 75 16 176/97 97 Room Air 98.3 11/02/17 10:43 97.9 11/02/17 10:19 86 158/93 11/02/17 10:19 158/93 11/02/17 10:18 86 158/93 11/02/17 09:00 97.9 86 17 158/93 98 Room Air 97.9 Intake and Output 11/02/17 11/03/17 19:00 07:00 Intake Total 75 ml 825 ml Balance 75 ml 825 ml IV Total 75 ml 825 ml # Voids 7 Height (Feet): 5 Height (Inches): 5.00 Weight (Pounds): 155 Objective General Appearance: WD/WN, alert Neck: supple Cardiovascular: normal rate, regular rhythm Respiratory/Chest: chest wall non-tender, lungs clear, normal breath sounds Abdomen: normal bowel sounds, non tender, soft, no organomegaly Edema: no edema noted Arm (L), no edema noted Arm (R), no edema noted Leg (L), no edema noted Leg (R), no edema noted Pedal (L), no edema noted Pedal (R), no edema noted Generalized JARON HARRISON November 03, 2017 08:18
[2017-11-03] MEDS: Ritonavir 100mg tab ORAL SCH ×3 (09:00→17:16)
[2017-11-03] MEDS: Isentress 400mg tab ORAL SCH ×3 (09:00→21:19)
[2017-11-03] MEDS: Etravirine 100mg tab ORAL SCH ×3 (09:00→21:19)
[2017-11-03] MEDS: Metoprolol Succinate XL 25mg tab ORAL SCH ×2 (09:00→09:57)
[2017-11-03] MEDS: Heparin 5000 units/ml inj SUBQ SCH ×2 (09:57→21:20)
--- NOTE | 2017-11-03 10:30 | Infectious Diseases Prog Note ---
Assessment/Plan Assessment/Plan antibiotics ; ceftriaxone A 1. e.coli UTI 2. HIV 3. groin fungal infection 4. avascular necrosis 5. rectal VRE colonization P 1. d/c ceftriaxone 2. observe off antibiotics 3. continue ARV Subjective Constitutional: Denies: fever, chills Respiratory: Denies: shortness of breath, dry cough Gastrointestinal/Abdominal: Reports: nausea; Denies: vomiting, diarrhea Musculoskeletal: Reports: pain Allergies: Coded Allergies: SULFAMETHOXAZOLE (Unverified Allergy, Unknown, 10/27/17) TRIMETHOPRIM (Unverified Allergy, Unknown, 10/27/17) Objective Vital Signs Last 24 Hour Vital Signs Date Time Temp Pulse Resp B/P (MAP) Pulse Ox O2 Delivery O2 Flow Rate FiO2 11/03/17 09:57 72 153/91 11/03/17 09:57 72 153/91 11/03/17 08:00 98.4 72 19 153/91 95 Room Air 98.4 11/03/17 04:00 98.2 71 19 141/83 96 98.2 11/03/17 00:00 98.2 77 18 139/92 96 98.2 11/02/17 20:54 167/99 11/02/17 20:00 98.3 75 17 167/99 82 98.3 11/02/17 17:21 98.3 11/02/17 16:51 98.3 11/02/17 16:41 176/97 11/02/17 16:00 98.5 76 18 166/99 95 Room Air 98.5 11/02/17 12:00 98.3 75 16 176/97 97 Room Air 98.3 11/02/17 10:43 97.9 Height (Feet): 5 Height (Inches): 5.00 Weight (Pounds): 155 Respiratory/Chest: lungs clear Cardiovascular: normal rate, regular rhythm, no gallop/murmur Abdomen: soft, non tender Extremities: no edema Microbiology Date/Time Source Procedure Growth Status 11/01/17 11:30 Stool Clostridium difficile Toxin Assay - Final Complete Current Medications Medications (Trade) Dose Ordered Sig/Roman Route PRN Reason Start Time Stop Time Status Last Admin Dose Admin Amlodipine Besylate (Norvasc) 5 mg DAILY ORAL 10/28/17 09:00 11/27/17 08:59 11/03/17 09:57 Calcium Carbonate (Tums) 500 mg Q3H PRN ORAL heartburn 10/31/17 17:30 11/30/17 17:29 10/31/17 17:37 Ceftriaxone Sodium 1 gm/ Dextrose 55 ml @ 110 mls/hr Q24H IVPB 10/29/17 13:00 11/05/17 12:59 11/02/17 12:48 Clonidine HCl (Catapres Tab) 0.1 mg Q4H PRN ORAL SBP above 150 10/27/17 19:30 11/26/17 19:29 11/02/17 20:54 Entecavir (Baraclude) 1 mg DAILY ORAL 10/28/17 15:00 11/27/17 14:59 11/03/17 09:57 Etravirine (Intelence) 200 mg Q12HR ORAL 10/29/17 14:00 11/28/17 13:59 11/03/17 09:57 Heparin Sodium (Porcine) (Heparin 5000 units/ml) 5,000 units EVERY 12 HOURS SUBQ 10/27/17 21:00 11/26/17 20:59 11/03/17 09:57 Hydromorphone HCl (Dilaudid) 2 mg Q4H PRN IVP Severe Breakthru Pain (>7) 11/03/17 09:30 11/10/17 09:29 Loperamide HCl (Imodium) 4 mg Q4H PRN ORAL Diarrhea 10/31/17 07:45 11/30/17 07:44 Lorazepam (Ativan) 1 mg Q8H PRN ORAL ANXIETY 10/27/17 13:45 11/03/17 13:44 10/29/17 00:12 Metoprolol Succinate (Toprol XL) 25 mg DAILY ORAL 10/29/17 09:00 11/28/17 08:59 11/03/17 09:57 Ondansetron HCl (Zofran) 4 mg Q6H PRN IVP Nausea & Vomiting 10/27/17 13:45 11/26/17 13:44 11/03/17 06:22 Oxycodone/ Acetaminophen (Percocet 10/325) 1 tab Q4H PRN ORAL Severe Pain (Pain Scale 7-10) 11/03/17 09:00 11/10/17 08:59 Pantoprazole (Protonix) 40 mg DAILY ORAL 4/30/18 09:00 11/30/17 08:59 11/03/17 09:57 Prednisone (predniSONE) 20 mg DAILY ORAL 11/03/17 09:00 12/03/17 08:59 11/03/17 09:57 Raltegravir (Isentress) 400 mg Q12HR ORAL 10/28/17 14:00 11/27/17 13:59 11/03/17 09:57 Ritonavir (Norvir) 100 mg TWICE A DAY ORAL 10/28/17 18:00 11/27/17 17:59 11/03/17 09:57 Sodium Chloride 1,000 ml @ 75 mls/hr [id number] IV 10/29/17 19:15 11/28/17 19:14 11/02/17 23:38 XENA FOX November 03, 2017 10:30
[2017-11-03 12:00] VITALS: BP 146/88
[2017-11-03 16:00] VITALS: BP 141/98
[2017-11-03 20:00] VITALS: BP 167/94
[2017-11-04] VITALS: BP 146/79
--- NOTE | 2017-11-04 03:15 | Progress Note ---
DATE: 11/03/2017 CARDIOLOGY PROGRESS NOTE SUBJECTIVE: The patient is seen and evaluated by spine surgeon. MRI reveals nonsurgical disease. OBJECTIVE: VITAL SIGNS: Blood pressure 141/83, pulse 71, and respirations 19. LUNGS: Clear. CARDIAC: Regular. ABDOMEN: Soft. EXTREMITIES: No edema. IMPRESSION: 1. Avascular necrosis. 2. Degenerative disk disease. 3. Chronic neuropathy. 4. Hypertension with hypertensive heart disease. PLAN: 1. Steroid trial. Expect increasing blood pressure on steroids. We will add long-acting antihypertensive therapy at this time. 2. Agree with discharge plan. Price Mendieta M.D. DR: LAURI JOB#: [id number] CC:
--- NOTE | 2017-11-04 03:30 | Progress Note ---
DATE: 11/02/2017 CARDIOLOGY PROGRESS NOTE Late entry for 11/02/2017. SUBJECTIVE: The patient continues to have severe back and leg pain and is unable to mobilize. MRI is reviewed. Spine consult is in progress. OBJECTIVE: VITAL SIGNS: The patient has blood pressure readings that remain elevated 147/94 to 164/99, heart rate 83, respiratory rate 18, and he is afebrile. NECK: Supple. LUNGS: Clear. CARDIAC: Regular rhythm and rate. Normal S1, S2 with a fourth heart sound. ABDOMEN: Soft. EXTREMITIES: No edema. Muscle atrophy. IMPRESSION: 1. Back and leg pain. 2. Avascular necrosis. 3. HIV, AIDS. 4. Chronic neuropathic pain. 5. Hypertension, labile. PLAN: 1. As needed antihypertensives following adequate pain control. 2. May consider addition of long-acting antihypertensives blood pressure elevations noted. 3. Await results of spine evaluation before the care plan. Price Mendieta M.D. DR: SAIRA JOB#: [id number] CC:
[2017-11-04 04:00] VITALS: BP 170/108
[2017-11-04 08:00] VITALS: BP 149/104
[2017-11-04] MEDS: Metoprolol Succinate XL 25mg tab ORAL SCH (08:20)
[2017-11-04] MEDS: Etravirine 100mg tab ORAL SCH (08:20)
[2017-11-04 08:21] VITALS: BP 149/104
[2017-11-04] MEDS: Isentress 400mg tab ORAL SCH (08:21)
[2017-11-04] MEDS: Heparin 5000 units/ml inj SUBQ SCH (08:22)
[2017-11-04] MEDS: Ritonavir 100mg tab ORAL SCH (08:22)
[2017-11-04] MEDS ORDERED: PREDNISONE20 MG ORAL (08:40)
[2017-11-04] MEDS ORDERED: METOPROLOL SUCC25 MG ORAL (08:40)
[2017-11-04 09:29] LABS: BASOPHILS % (AUTO) 0.5 % (0.0-2.0); EOSINOPHILS % (AUTO) 0.3 % (0.0-3.0); HEMATOCRIT 46.2 % (42.0-52.0); HEMOGLOBIN 16.8 G/DL (14.2-18.0); LYMPHOCYTES % (AUTO) 33.4 % (20.0-45.0); MEAN CORPUSCULAR VOLUME 97 FL (80-99); MONOCYTES % (AUTO) 6.4 % (1.0-10.0); NEUTROPHILS % (AUTO) 59.4 % (45.0-75.0); PLATELET COUNT 189 K/UL (150-450); RED BLOOD COUNT 4.77 M/UL (4.70-6.10); RED CELL DISTRIBUTION WIDTH 11.3 % (11.6-14.8); WHITE BLOOD COUNT 10.5 K/UL (4.8-10.8)
[2017-11-04 09:35] LABS: ALANINE AMINOTRANSFERASE 44 U/L (12-78); ALBUMIN 3.7 G/DL (3.4-5.0); ALBUMIN/GLOBULIN RATIO 0.8 (1.0-2.7); ALKALINE PHOSPHATASE 146 U/L (46-116); ANION GAP 14 mmol/L (5-15); ASPARTATE AMINO TRANSFERASE 29 U/L (15-37); BILIRUBIN,TOTAL 0.6 MG/DL (0.2-1.0); BLOOD UREA NITROGEN 21 mg/dL (7-18); CALCIUM 9.8 MG/DL (8.5-10.1); CARBON DIOXIDE 22 MMOL/L (21-32); CHLORIDE 105 MMOL/L (98-107); CREATININE 1.1 MG/DL (0.55-1.30); SODIUM 141 MMOL/L (136-145)
[2017-11-04] MEDS ORDERED: Milk of Magnesia 30ml Ud ORAL ONE (09:45)
[2017-11-04] MEDS ORDERED: PERCOCET 10-321 EAC1 PO (11:46)
--- NOTE | 2017-11-04 11:56 | Infectious Diseases Prog Note ---
Assessment/Plan Assessment/Plan antibiotics ; ARV A 1. e.coli UTI s/p rx 2. HIV 3. groin fungal infection s/p rx 4. avascular necrosis 5. rectal VRE colonization P 1. observe off antibiotics 2. continue ARV Subjective Constitutional: Denies: fever, chills Respiratory: Denies: shortness of breath, dry cough Gastrointestinal/Abdominal: Reports: nausea; Denies: vomiting, diarrhea Musculoskeletal: Reports: pain Allergies: Coded Allergies: SULFAMETHOXAZOLE (Unverified Allergy, Unknown, 10/27/17) TRIMETHOPRIM (Unverified Allergy, Unknown, 10/27/17) Objective Vital Signs Last 24 Hour Vital Signs Date Time Temp Pulse Resp B/P (MAP) Pulse Ox O2 Delivery O2 Flow Rate FiO2 11/04/17 08:21 98 149/104 11/04/17 08:20 98 149/104 11/04/17 08:00 97.7 98 18 149/104 96 Room Air 97.7 11/04/17 04:01 170/109 11/04/17 04:00 97.5 103 20 170/108 97 97.5 11/04/17 00:00 97.3 87 21 146/79 95 97.3 11/03/17 20:00 98.0 80 20 167/94 95 Room Air 98.0 11/03/17 19:58 167/94 11/03/17 16:00 97.5 81 18 141/98 94 Room Air 97.5 11/03/17 12:00 97.4 74 18 146/88 98 Room Air 97.4 Height (Feet): 5 Height (Inches): 5.00 Weight (Pounds): 155 Laboratory Tests Test 11/04/17 08:50 White Blood Count 10.5 K/UL (4.8-10.8) Red Blood Count 4.77 M/UL (4.70-6.10) Hemoglobin 16.8 G/DL (14.2-18.0) Hematocrit 46.2 % (42.0-52.0) Mean Corpuscular Volume 97 FL (80-99) Mean Corpuscular Hemoglobin 35.2 PG (27.0-31.0) H Mean Corpuscular Hemoglobin Concent 36.3 G/DL (32.0-36.0) H Red Cell Distribution Width 11.3 % (11.6-14.8) L Platelet Count 189 K/UL (150-450) Mean Platelet Volume 8.0 FL (6.5-10.1) Neutrophils (%) (Auto) 59.4 % (45.0-75.0) Lymphocytes (%) (Auto) 33.4 % (20.0-45.0) Monocytes (%) (Auto) 6.4 % (1.0-10.0) Eosinophils (%) (Auto) 0.3 % (0.0-3.0) Basophils (%) (Auto) 0.5 % (0.0-2.0) Sodium Level 141 MMOL/L (136-145) Potassium Level 3.0 MMOL/L (3.5-5.1) L Chloride Level 105 MMOL/L (98-107) Carbon Dioxide Level 22 MMOL/L (21-32) Anion Gap 14 mmol/L (5-15) Blood Urea Nitrogen 21 mg/dL (7-18) H Creatinine 1.1 MG/DL (0.55-1.30) Estimat Glomerular Filtration Rate > 60 mL/min (>60) Glucose Level 130 MG/DL (74-106) H Calcium Level 9.8 MG/DL (8.5-10.1) Magnesium Level 2.0 MG/DL (1.8-2.4) Total Bilirubin 0.6 MG/DL (0.2-1.0) Aspartate Amino Transf (AST/SGOT) 29 U/L (15-37) Alanine Aminotransferase (ALT/SGPT) 44 U/L (12-78) Alkaline Phosphatase 146 U/L (46-116) H Total Protein 8.5 G/DL (6.4-8.2) H Albumin 3.7 G/DL (3.4-5.0) Globulin 4.8 g/dL Albumin/Globulin Ratio 0.8 (1.0-2.7) L Current Medications Medications (Trade) Dose Ordered Sig/Roman Route PRN Reason Start Time Stop Time Status Last Admin Dose Admin Amlodipine Besylate (Norvasc) 10 mg DAILY ORAL 11/04/17 09:00 12/04/17 08:59 11/04/17 08:21 Calcium Carbonate (Tums) 500 mg Q3H PRN ORAL heartburn 10/31/17 17:30 5/30/18 17:29 10/31/17 17:37 Clonidine HCl (Catapres Tab) 0.1 mg Q4H PRN ORAL SBP above 150 10/27/17 19:30 11/26/17 19:29 11/04/17 04:01 Entecavir (Baraclude) 1 mg DAILY ORAL 10/28/17 15:00 11/27/17 14:59 11/04/17 08:20 Etravirine (Intelence) 200 mg Q12HR ORAL 10/29/17 14:00 11/28/17 13:59 11/04/17 08:20 Heparin Sodium (Porcine) (Heparin 5000 units/ml) 5,000 units EVERY 12 HOURS SUBQ 10/27/17 21:00 11/26/17 20:59 11/04/17 08:22 Hydromorphone HCl (Dilaudid) 2 mg Q4H PRN IVP Severe Breakthru Pain (>7) 11/03/17 09:30 11/10/17 09:29 Loperamide HCl (Imodium) 4 mg Q4H PRN ORAL Diarrhea 10/31/17 07:45 11/30/17 07:44 Metoprolol Succinate (Toprol XL) 25 mg DAILY ORAL 10/29/17 09:00 11/28/17 08:59 11/04/17 08:20 Ondansetron HCl (Zofran) 4 mg Q6H PRN IVP Nausea & Vomiting 10/27/17 13:45 11/26/17 13:44 11/04/17 10:49 Oxycodone/ Acetaminophen (Percocet 10/325) 1 tab Q4H PRN ORAL Severe Pain (Pain Scale 7-10) 11/03/17 09:00 11/10/17 08:59 11/04/17 07:47 Pantoprazole (Protonix) 40 mg DAILY ORAL 10/31/17 09:00 11/30/17 08:59 11/04/17 08:21 Prednisone (predniSONE) 20 mg DAILY ORAL 11/03/17 09:00 12/03/17 08:59 11/04/17 08:20 Raltegravir (Isentress) 400 mg Q12HR ORAL 10/28/17 14:00 11/27/17 13:59 11/04/17 08:21 Ritonavir (Norvir) 100 mg TWICE A DAY ORAL 10/28/17 18:00 11/27/17 17:59 11/04/17 08:22 Sodium Chloride 1,000 ml @ 75 mls/hr [id number] IV 10/29/17 19:15 11/28/17 19:14 11/03/17 18:36 XENA FOX November 04, 2017 11:56
--- NOTE | 2017-11-05 00:45 | Progress Note ---
DATE: 11/04/2017 CARDIOLOGY PROGRESS NOTE SUBJECTIVE: Pain control is better. The patient with no chest pain or shortness of breath. PHYSICAL EXAMINATION: VITAL SIGNS: Blood pressure remains labile up to 149/104, pulse 98, and respiratory rate 18 earlier. NECK: Supple. LUNGS: Clear. CARDIAC: Regular. ABDOMEN: Soft. EXTREMITIES: No edema. IMPRESSION: 1. Avascular necrosis. 2. Degenerative disc disease. 3. Acute on chronic pain. 4. Hypertensive heart disease with blood pressure elevations due to pain. 5. Human immunodeficiency virus/acquired immune deficiency syndrome. PLAN: 1. Outpatient followup. 2. Pain control. 3. Physical therapy. 4. Advance antihypertensives and titrate further as an outpatient. Price Mendieta M.D. DR: ADA JOB#: [id number] CC:
--- NOTE | 2017-11-05 04:15 | Discharge Summary ---
DATE OF ADMISSION: 10/27/2017 DATE OF DISCHARGE: 11/04/2017 ADMISSION DIAGNOSES: 1. Intractable pain. 2. Urinary tract infection. 3. Possible sepsis. 4. Toxic metabolic encephalopathy. 5. Human immunodeficiency virus. 6. Avascular necrosis of the hips. 7. Severe polyarthritis. DISCHARGE DIAGNOSES: 1. Intractable pain. 2. Urinary tract infection. 3. Possible sepsis. 4. Toxic metabolic encephalopathy. 5. Human immunodeficiency virus. 6. Avascular necrosis of the hips. 7. Severe polyarthritis. HISTORY AND HOSPITAL COURSE: The patient is an unfortunate male with history of chronic lower back pain, who was admitted with complaints of severe pain in the hips and back. CT scan of the hips showed avascular necrosis. MRI confirmed this. He also had an MRI of the spine that showed severe degenerative disk disease. Spine evaluation was obtained and the patient was not a candidate for any type of procedures. The patient was given low-dose steroids with improvement in his pain. He was treated also for UTI with IV antibiotics. On discharge, he was stable. He was offered a shelter facility or acute rehabilitation, but he declined. He will be discharged back to his assisted living with home health. DISCHARGE MEDICATIONS: Please see discharge medication list for discharge medications. DIET: Regular. ACTIVITY: Ad-ramses. FOLLOWUP: The patient will be followed by his PMD at the [facility] and [facility]. Enoc Corrales M.D. DR: Stuart JOB#: [id number] CC:
== END 2017-11-04 14:37 | DRG 553 ==
LOC: EDBD 09:17 → EDSEX 09:17 → EMR 09:54 → 4E 11:23 → EDBEDREQ 12:57
DX: M87.88 Other osteonecrosis, other site (principal); G92 Toxic encephalopathy; B20 Human immunodeficiency virus [HIV] disease; N39.0 Urinary tract infection, site not specified; N17.9 Acute kidney failure, unspecified; I50.32 Chronic diastolic (congestive) heart failure; E44.1 Mild protein-calorie malnutrition; M00.852 Arthritis due to other bacteria, left hip; M00.851 Arthritis due to other bacteria, right hip; Z91.81 History of falling; Z88.2 Allergy status to sulfonamides; M15.9 Polyosteoarthritis, unspecified; G89.29 Other chronic pain; M54.5 Low back pain; M25.552 Pain in left hip; M25.551 Pain in right hip; M51.36 Other intervertebral disc degeneration, lumbar region; K42.9 Umbilical hernia without obstruction or gangrene; E86.1 Hypovolemia; E86.0 Dehydration; B35.6 Tinea cruris; M81.0 Age-related osteoporosis without current pathological fracture; Z88.1 Allergy status to other antibiotic agents; B96.89 Other specified bacterial agents as the cause of diseases classified elsewhere; M24.652 Ankylosis, left hip; M24.651 Ankylosis, right hip; M24.662 Ankylosis, left knee; M24.661 Ankylosis, right knee; I11.0 Hypertensive heart disease with heart failure; B96.20 Unspecified Escherichia coli [E. coli] as the cause of diseases classified elsewhere; G62.9 Polyneuropathy, unspecified; E87.6 Hypokalemia; R26.81 Unsteadiness on feet; B02.9 Zoster without complications
CPT/HCPCS: 36415; 72131; 72148; 72192; 72195; 74230; 80048; 80053; 81003; 82550; 82962; 83735; 83880; 84443; 85025; 85651; 87081; 87086; 87181; 87324; 99285; J2405; J8499

== ENCOUNTER 2017-11-28 10:24 | Inpatient (IN) | payer MEDICARE, MEDICAID ==
[~2017-11-28] VITALS: Ht 162.6 cm; Wt 74.0 kg
[~2017-11-28 10:24] MED LIST: AMLODIPINE BES2.5 MG ORAL; AVODART0.5 MG ORAL; BARACLUDE0.5 MG ORAL; IBUPROFEN600 MG ORAL; INTELENCE100 MG ORAL; LORAZEPAM1 MG ORAL; METOPROLOL SUCC25 MG ORAL; NORVASC2.5 MG ORAL; PERCOCET 10-321 EAC1 PO; PREDNISONE20 MG ORAL
[2017-11-28] MEDS ORDERED: FOSAMAX70 MG ORAL (10:33)
[2017-11-28] MEDS ORDERED: VALACYCLOVIR500 MG ORAL (10:33)
[2017-11-28] MEDS ORDERED: OMEPRAZOLE20 M2 ORAL (10:33)
[2017-11-28] MEDS ORDERED: ASPIR 8181 MG ORAL (10:33)
[2017-11-28] MEDS ORDERED: PROSCAR5 MG ORAL (10:40)
[2017-11-28] MEDS ORDERED: TAMSULOSIN HCL0.4 MG ORAL (10:40)
[2017-11-28] MEDS ORDERED: MIRTAZAPINE15 M3 ORAL (10:40)
[2017-11-28] MEDS ORDERED: AMLODIPINE BESYL5 MG ORAL (10:40)
[2017-11-28] MEDS ORDERED: LEVOTHYROXINE75 MCG ORAL (10:40)
[2017-11-28] MEDS ORDERED: ISENTRESS100 MG ORAL (10:40)
[2017-11-28] MEDS ORDERED: LOSARTAN POTASS50 MG ORAL (10:40)
[2017-11-28] MEDS ORDERED: NORVIR100 MG ORAL (10:40)
[2017-11-28] MEDS ORDERED: PREZISTA600 MG ORAL (10:40)
[2017-11-28] MEDS ORDERED: Sodium Chloride 500ML 500 ML IV ONE (10:50)
[2017-11-28] MEDS ORDERED: Morphine Sulfate 4mg/ml Inj IVP ONE ×2 (11:00→13:00)
[2017-11-28] MEDS ORDERED: Isovue-300 100ml vial INJ PRN (11:00)
[2017-11-28 11:06] VITALS: BP 107/68
[2017-11-28 11:24] LABS: BASOPHILS % (AUTO) 0.7 % (0.0-2.0); EOSINOPHILS % (AUTO) 1.4 % (0.0-3.0); HEMATOCRIT 38.7 % (42.0-52.0); HEMOGLOBIN 13.4 G/DL (14.2-18.0); LYMPHOCYTES % (AUTO) 31.2 % (20.0-45.0); MEAN CORPUSCULAR VOLUME 98 FL (80-99); MONOCYTES % (AUTO) 6.7 % (1.0-10.0); NEUTROPHILS % (AUTO) 59.9 % (45.0-75.0); PLATELET COUNT 177 K/UL (150-450); RED BLOOD COUNT 3.97 M/UL (4.70-6.10); RED CELL DISTRIBUTION WIDTH 11.4 % (11.6-14.8); WHITE BLOOD COUNT 5.4 K/UL (4.8-10.8)
[2017-11-28 11:38] LABS: ANION GAP 14 mmol/L (5-15); BLOOD UREA NITROGEN 17 mg/dL (7-18); CALCIUM 9.4 MG/DL (8.5-10.1); CARBON DIOXIDE 22 MMOL/L (21-32); CHLORIDE 107 MMOL/L (98-107); CREATININE 1.6 MG/DL (0.55-1.30); POTASSIUM 3.6 MMOL/L (3.5-5.1); SODIUM 143 MMOL/L (136-145)
[2017-11-28 11:43] LABS: ALANINE AMINOTRANSFERASE 32 U/L (12-78); ALBUMIN 3.5 G/DL (3.4-5.0); ALBUMIN/GLOBULIN RATIO 0.8 (1.0-2.7); ALKALINE PHOSPHATASE 106 U/L (46-116); ASPARTATE AMINO TRANSFERASE 34 U/L (15-37); BILIRUBIN,TOTAL 0.5 MG/DL (0.2-1.0)
[2017-11-28 11:55] LABS: APPEARANCE,URINE CLEAR; BILIRUBIN, URINE NEGATIVE (NEGATIVE); COLOR,URINE YELLOW; GLUCOSE, URINE (UA) NEGATIVE (NEGATIVE); KETONES,URINE NEGATIVE (NEGATIVE); LEUKOCYTE ESTERASE ,URINE 1+ (NEGATIVE); NITRITE,URINE NEGATIVE (NEGATIVE); PH,URINE 7 (4.5-8.0); PROTEIN,URINE 1+ (NEGATIVE); UROBILINOGEN,URINE 1 MG/DL (0.0-1.0)
[2017-11-28] MEDS ORDERED: Zolpidem 5mg tab ORAL PRN (13:30)
--- NOTE | 2017-11-28 14:12 | Emergency Room Report ---
History of Present Illness General Chief Complaint: Abdominal Pain Source: Patient, Medical Record Present Illness HPI 67-year-old male presents ED complaining of abdominal pain. Patient comes from a home assisted living. Pain started yesterday. Right-sided, sharp, 9 out of 10, nonradiating. Patient states he also feels very weak. Not eating or drinking. Patient states he was admitted here recently for leg pain and back pain. Denies fevers or chills. Denies chest pain shortness of breath. Denies nausea or vomiting. No other aggravating relieving factors. Denies any other associated symptoms Allergies: Coded Allergies: CODEINE (Unverified Allergy, Unknown, 11/28/17) SULFAMETHOXAZOLE (Unverified Allergy, Unknown, 10/27/17) TRIMETHOPRIM (Unverified Allergy, Unknown, 10/27/17) Patient History Past Medical History: HTN, CVA/TIA, other - rectal cancer Past Surgical History: none Pertinent Family History: none Social History: Denies: smoking, alcohol use, drug use Immunizations: UTD Reviewed Nursing Documentation: PMH: Agreed; PSxH: Agreed Nursing Documentation-PMH Past Medical History: No History, Except For Hx Hypertension: Yes Hx Cancer: Yes - RECTAL Hx Neurological Problems: Yes Hx Cerebrovascular Accident: Yes - 2004 Hx Weakness: Yes Review of Systems All Other Systems: negative except mentioned in HPI Physical Exam Vital Signs Date Time Temp Pulse Resp B/P (MAP) Pulse Ox O2 Delivery O2 Flow Rate FiO2 11/28/17 10:23 98.2 102 18 97/62 100 Room Air 98.2 Sp02 EP Interpretation: reviewed, normal General Appearance: no apparent distress, alert, GCS 15, non-toxic Head: normocephalic, atraumatic Eyes: bilateral eye normal inspection, bilateral eye PERRL ENT: hearing grossly normal, normal pharynx, no angioedema, normal voice Neck: full range of motion, supple/symm/no masses Respiratory: chest non-tender, lungs clear, normal breath sounds, speaking full sentences Cardiovascular #1: regular rate, rhythm, no edema Cardiovascular #2: 2+ carotid (R), 2+ carotid (L), 2+ radial (R), 2+ radial (L) , 2+ dorsalis pedis (R), 2+ dorsalis pedis (L) Gastrointestinal: normal bowel sounds, soft, non-distended, no guarding, no rebound, tenderness - R sided Rectal: deferred Genitourinary: normal inspection, no CVA tenderness Musculoskeletal: back normal, gait/station normal, normal range of motion, non- tender Neurologic: alert, oriented x3, responsive, motor strength/tone normal, sensory intact, speech normal Psychiatric: judgement/insight normal, memory normal, mood/affect normal, no suicidal/homicidal ideation Reflexes: 3+ bicep (R), 3+ bicep (L), 3+ tricep (R), 3+ tricep (L), 3+ knee (R) , 3+ knee (L) Skin: normal color, no rash, warm/dry, well hydrated Lymphatic: no adenopathy Medical Decision Making Diagnostic Impression: Primary Impression: HIV (human immunodeficiency virus infection) Additional Impressions: Degenerative disc disease Qualified Codes: M51.37 - Other intervertebral disc degeneration, lumbosacral region ARF (acute renal failure) Qualified Codes: N17.9 - Acute kidney failure, unspecified Abdominal pain Qualified Codes: R10.11 - Right upper quadrant pain ER Course Hospital Course 67-year-old male presents to ED with abdominal pain Differential diagnoses include: BPH, cystitis, pyelonephritis, kidney stone Clinical course Patient placed on stretcher. electronic device monitor. After initial history and physical I ordered labs, IV fluids, UA, pain medication and CT scan Labs - no leukocytosis, hb/hct stable, Cr 1.6, LFTs ok CT abdomen and pelvis - gallbladder sludge. patient continues to have abd pain. US pending Cr 1.6 is higher than his baseline of 1.1 on last admission. I believe patient will benefit from IV hydration and admission Case discussed with Dr. Rm and he agreed to accept the patient to his service for further care and support I feel this is a highly complex case requiring extensive working including EKG/ Rhythm strip, Xray/CT/US, Blood/urine lab work, repeat exams while in ED, and administration of strong opiates/narcotics for pain control, admission to hospital or close patient follow up. Diagnosis - HIV, degenerative disc disease, ARF, abd pain Patient admitted to floor in serious condition Labs Test 11/28/17 10:40 11/28/17 11:36 White Blood Count 5.4 K/UL (4.8-10.8) Red Blood Count 3.97 M/UL (4.70-6.10) Hemoglobin 13.4 G/DL (14.2-18.0) Hematocrit 38.7 % (42.0-52.0) Mean Corpuscular Volume 98 FL (80-99) Mean Corpuscular Hemoglobin 33.8 PG (27.0-31.0) Mean Corpuscular Hemoglobin Concent 34.6 G/DL (32.0-36.0) Red Cell Distribution Width 11.4 % (11.6-14.8) Platelet Count 177 K/UL (150-450) Mean Platelet Volume 7.4 FL (6.5-10.1) Neutrophils (%) (Auto) 59.9 % (45.0-75.0) Lymphocytes (%) (Auto) 31.2 % (20.0-45.0) Monocytes (%) (Auto) 6.7 % (1.0-10.0) Eosinophils (%) (Auto) 1.4 % (0.0-3.0) Basophils (%) (Auto) 0.7 % (0.0-2.0) Sodium Level 143 MMOL/L (136-145) Potassium Level 3.6 MMOL/L (3.5-5.1) Chloride Level 107 MMOL/L (98-107) Carbon Dioxide Level 22 MMOL/L (21-32) Anion Gap 14 mmol/L (5-15) Blood Urea Nitrogen 17 mg/dL (7-18) Creatinine 1.6 MG/DL (0.55-1.30) Estimat Glomerular Filtration Rate 43.1 mL/min (>60) Glucose Level 161 MG/DL (74-106) Calcium Level 9.4 MG/DL (8.5-10.1) Total Bilirubin 0.5 MG/DL (0.2-1.0) Aspartate Amino Transf (AST/SGOT) 34 U/L (15-37) Alanine Aminotransferase (ALT/SGPT) 32 U/L (12-78) Alkaline Phosphatase 106 U/L (46-116) Total Protein 7.7 G/DL (6.4-8.2) Albumin 3.5 G/DL (3.4-5.0) Globulin 4.2 g/dL Albumin/Globulin Ratio 0.8 (1.0-2.7) Lipase 100 U/L (73-393) Urine Color Yellow Urine Appearance Clear Urine pH 7 (4.5-8.0) Urine Specific [place] 1.010 (1.005-1.035) Urine Protein 1+ (NEGATIVE) Urine Glucose (UA) Negative (NEGATIVE) Urine Ketones Negative (NEGATIVE) Urine Occult Blood Negative (NEGATIVE) Urine Nitrite Negative (NEGATIVE) Urine Bilirubin Negative (NEGATIVE) Urine Urobilinogen 1 MG/DL (0.0-1.0) Urine Leukocyte Esterase 1+ (NEGATIVE) Urine RBC 0-2 /HPF (0 - 0) Urine WBC 0-2 /HPF (0 - 0) Urine Squamous Epithelial Cells Occasional /LPF Urine Bacteria Occasional /HPF (NONE) Urine Mucus Few /LPF (NONE/OCC) CT/MRI/US Diagnostic Results CT/MRI/US Diagnostic Results : Imaging Test Ordered: CT A/P Impression Focal consolidation with air bronchograms inferior segment of the right upper lobe of the lung may be pneumonia. Mild bibasilar lung atelectasis. Gallbladder sludge. Appendix not seen. No bowel obstruction or inflammatory changes. Last Vital Signs Date Time Temp Pulse Resp B/P (MAP) Pulse Ox O2 Delivery O2 Flow Rate FiO2 11/28/17 12:55 98.2 11/28/17 11:06 86 12 107/68 94 Room Air Status: improved Disposition: ADMITTED INPATIENT Condition: Serious Referrals: NOT CHOSEN IPA/,REFERRING (PCP) Florentino Orantes MD November 28, 2017 14:12
[2017-11-28 15:05] VITALS: BP 114/66
[2017-11-28] MEDS ORDERED: CLOTRIMAZOLE15 GM TOPIC (15:54)
[2017-11-28] MEDS ORDERED: GAS RELIEF125 M1 PO (15:54)
[2017-11-28] MEDS ORDERED: VITAMIN D1000 UNI1 ORAL (15:54)
[2017-11-28] MEDS ORDERED: LORAZEPAM1 MG ORAL (15:54)
[2017-11-28] MEDS ORDERED: OYSCO-500500 M1 PO (15:54)
[2017-11-28] MEDS ORDERED: ZOFRAN ODT8 MG ORAL (15:54)
[2017-11-28] MEDS ORDERED: ALCORTIN A GEL48 GM TP (15:54)
[2017-11-28] MEDS ORDERED: MELOXICAM15 MG PO (15:54)
[2017-11-28] MEDS ORDERED: LUNESTA3 MG ORAL (15:54)
[2017-11-28] MEDS ORDERED: PAROXETINE HCL40 MG ORAL (15:54)
[2017-11-28 16:00] VITALS: BP 121/73
[2017-11-28] MEDS ORDERED: NORVASC10 MG ORAL (16:00)
[2017-11-28] MEDS ORDERED: METHOCARBAMOL500 M1 PO (16:00)
[2017-11-28] MEDS: D5 1/2NS 1,000 ML IV SCH (16:29)
[2017-11-28] MEDS: Morphine Sulfate 4mg/ml Inj IVP PRN ×2 (19:26→23:37)
[2017-11-28] MEDS: Heparin 5000 units/ml inj SUBQ SCH (20:25)
[2017-11-28] MEDS: Vitamin A&D Oint 2oz Tube TOPIC SCH (20:26)
[2017-11-28 20:56] VITALS: BP 137/84
[2017-11-28] MEDS ORDERED: Vitamin A&D Oint 2oz Tube TOPIC SCH (21:00)
--- NOTE | 2017-11-28 23:48 | History and Physical ---
History of Present Illness General Reason for Hospitalization: Abdominal Pain Present Illness HPI 67-year-old male with hx of HIV, degenerative disc disease presented to ED complaining of abdominal pain, started yesterday. Right-sided, sharp, 9 out of 10, nonradiating. Patient states he also feels very weak. Not eating or drinking. Denies fevers or chills. Denies chest pain shortness of breath. Denies nausea or vomiting. No other aggravating relieving factors. Denies any other associated symptoms. Allergies: Coded Allergies: CODEINE (Unverified Allergy, Unknown, 11/28/17) SULFAMETHOXAZOLE (Unverified Allergy, Unknown, 10/27/17) TRIMETHOPRIM (Unverified Allergy, Unknown, 10/27/17) Medication History Scheduled Alendronate Sodium* (Fosamax*), 70 MG ORAL ONCE A WEEK, (Reported) Amlodipine Besylate (Norvasc), 10 MG ORAL DAILY, (Reported) Aspirin* (Aspir 81*), 81 MG ORAL DAILY, (Reported) Calcium Carbonate (Oysco-500), 500 MG PO DAILY, (Reported) Cholecalciferol (Vitamin D3)* (Vitamin D*), 2,000 UNITS ORAL DAILY, (Reported) Clotrimazole* (Lotrimin*), 1 APPLIC TOPIC TWICE A DAY, (Reported) Darunavir Ethanolate* (Prezista*), 600 MG ORAL EVERY 12 HOURS, (Reported) Dutasteride (Avodart), 0.5 MG ORAL DAILY, (Reported) Entecavir* (Baraclude*), 1 MG ORAL DAILY, (Reported) Etravirine* (Intelence*), 200 MG ORAL EVERY 12 HOURS, (Reported) Finasteride* (Proscar*), 5 MG ORAL DAILY, (Reported) Hydrocortisone/Iodoquin/Aloe#2 (Alcortin A Gel), 48 GM TP QID, (Reported) Levothyroxine Sodium* (Levothyroxine Sodium*), 25 MCG ORAL DAILY, (Reported) Lorazepam* (Lorazepam*), 1 MG ORAL TWICE A DAY, (Reported) Losartan Potassium* (Losartan Potassium*), 50 MG ORAL DAILY, (Reported) Meloxicam* (Meloxicam*), 15 MG PO DAILY, (Reported) Methocarbamol (Methocarbamol), 500 MG PO Q6HR, (Reported) Mirtazapine* (Mirtazapine*), 15 MG ORAL BEDTIME, (Reported) Omeprazole (Omeprazole), 20 MG ORAL DAILY, (Reported) Oxycodone HCl/Acetaminophen (Percocet 10-325 mg Tablet), 1 EACH PO TID, ( Reported) Paroxetine Hcl (Paroxetine Hcl), 40 MG ORAL DAILY, (Reported) Raltegravir Potassium (Isentress), 400 MG ORAL TWICE A DAY, (Reported) Ritonavir* (Norvir*), 100 MG ORAL TWICE A DAY, (Reported) Tamsulosin Hcl (Tamsulosin Hcl*), 0.4 MG ORAL BEDTIME, (Reported) Valacyclovir Hcl* (Valtrex*), 1,000 MG ORAL DAILY, (Reported) Scheduled PRN Eszopiclone (Lunesta), 3 MG ORAL BEDTIME PRN for Insomnia, (Reported) Ondansetron Odt* (Zofran Odt*), 8 MG ORAL Q6H PRN for Nausea & Vomiting, ( Reported) Miscellaneous Medications Simethicone (Gas Relief), 125 MG PO, (Reported) Discontinued Medications Amlodipine Besylate (Norvasc), Unknown Dose ORAL DAILY, (Reported) Discontinued Reason: Pt stopped taking med Amlodipine Besylate* (Amlodipine Besylate*), 5 MG ORAL DAILY, (Reported) Discontinued Reason: Pt stopped taking med Ibuprofen* (Motrin*), Unknown Dose ORAL FOUR TIMES A DAY, (Reported) Discontinued Reason: Pt stopped taking med Lorazepam* (Lorazepam*), 1 MG ORAL THREE TIMES A DAY, (Reported) Discontinued Reason: Medication dose changed Metoprolol Succinate* (Metoprolol Succinate*), 25 MG ORAL DAILY Discontinued Reason: Pt stopped taking med Prednisone* (Prednisone*), 20 MG ORAL DAILY Discontinued Reason: Pt stopped taking med Patient History Healthcare decision maker Resuscitation status Full Code Advanced Directive on File Past Medical/Surgical History Past Medical/Surgical History: (1) Degenerative disc disease (2) HIV (human immunodeficiency virus infection) (3) Neuropathy Review of Systems Constitutional: Reports: malaise All Other Systems: negative except mentioned in HPI Physical Exam General Appearance: cachetic Lines, tubes and drains: peripheral HEENT: atraumatic Neck: non-tender, supple Respiratory/Chest: normal breath sounds Cardiovascular/Chest: regularly irregular Genitourinary/Rectal: normal genital exam Extremities: normal range of motion Skin Exam: normal pigmentation Neurologic: nurse prn II-XII grossly normal Last 24 Hour Vital Signs Date Time Temp Pulse Resp B/P (MAP) Pulse Ox O2 Delivery O2 Flow Rate FiO2 11/28/17 22:14 102.0 11/28/17 20:56 99.8 107 23 137/84 94 99.8 11/28/17 16:00 98.1 78 20 121/73 96 Room Air 98.1 11/28/17 15:05 76 18 114/66 96 Room Air 11/28/17 15:05 76 18 114/66 96 Room Air 11/28/17 12:55 98.2 11/28/17 11:52 98.2 11/28/17 11:06 86 12 107/68 94 Room Air 11/28/17 10:23 98.2 102 18 97/62 100 Room Air 98.2 Laboratory Tests Test 11/28/17 10:40 11/28/17 11:36 11/28/17 17:30 White Blood Count 5.4 K/UL (4.8-10.8) Red Blood Count 3.97 M/UL (4.70-6.10) L Hemoglobin 13.4 G/DL (14.2-18.0) L Hematocrit 38.7 % (42.0-52.0) L Mean Corpuscular Volume 98 FL (80-99) Mean Corpuscular Hemoglobin 33.8 PG (27.0-31.0) H Mean Corpuscular Hemoglobin Concent 34.6 G/DL (32.0-36.0) Red Cell Distribution Width 11.4 % (11.6-14.8) L Platelet Count 177 K/UL (150-450) Mean Platelet Volume 7.4 FL (6.5-10.1) Neutrophils (%) (Auto) 59.9 % (45.0-75.0) Lymphocytes (%) (Auto) 31.2 % (20.0-45.0) Monocytes (%) (Auto) 6.7 % (1.0-10.0) Eosinophils (%) (Auto) 1.4 % (0.0-3.0) Basophils (%) (Auto) 0.7 % (0.0-2.0) Sodium Level 143 MMOL/L (136-145) Potassium Level 3.6 MMOL/L (3.5-5.1) Chloride Level 107 MMOL/L (98-107) Carbon Dioxide Level 22 MMOL/L (21-32) Anion Gap 14 mmol/L (5-15) Blood Urea Nitrogen 17 mg/dL (7-18) Creatinine 1.6 MG/DL (0.55-1.30) H Estimat Glomerular Filtration Rate 43.1 mL/min (>60) Glucose Level 161 MG/DL (74-106) H Calcium Level 9.4 MG/DL (8.5-10.1) Total Bilirubin 0.5 MG/DL (0.2-1.0) Aspartate Amino Transf (AST/SGOT) 34 U/L (15-37) Alanine Aminotransferase (ALT/SGPT) 32 U/L (12-78) Alkaline Phosphatase 106 U/L (46-116) Total Protein 7.7 G/DL (6.4-8.2) Albumin 3.5 G/DL (3.4-5.0) Globulin 4.2 g/dL Albumin/Globulin Ratio 0.8 (1.0-2.7) L Lipase 100 U/L (73-393) Urine Color Yellow Urine Appearance Clear Urine pH 7 (4.5-8.0) Urine Specific [place] 1.010 (1.005-1.035) Urine Protein 1+ (NEGATIVE) H Urine Glucose (UA) Negative (NEGATIVE) Urine Ketones Negative (NEGATIVE) Urine Occult Blood Negative (NEGATIVE) Urine Nitrite Negative (NEGATIVE) Urine Bilirubin Negative (NEGATIVE) Urine Urobilinogen 1 MG/DL (0.0-1.0) H Urine Leukocyte Esterase 1+ (NEGATIVE) H Urine RBC 0-2 /HPF (0 - 0) H Urine WBC 0-2 /HPF (0 - 0) Urine Squamous Epithelial Cells Occasional /LPF Urine Bacteria Occasional /HPF (NONE) Urine Mucus Few /LPF (NONE/OCC) H Stool Occult Blood Pending Height (Feet): 5 Height (Inches): 4.00 Weight (Pounds): 105 Medications Current Medications Medications (Trade) Dose Ordered Sig/Roman Route PRN Reason Start Time Stop Time Status Last Admin Dose Admin Acetaminophen (Tylenol) 650 mg Q4H PRN ORAL fever 11/28/17 13:30 12/28/17 13:29 11/28/17 22:14 Clotrimazole (Lotrimin) 1 applic BID TOPIC 11/29/17 09:00 12/29/17 08:59 Dextrose/Sodium Chloride 1,000 ml @ 50 mls/hr Q20H IV 11/28/17 14:30 12/28/17 14:29 11/28/17 16:29 Heparin Sodium (Porcine) (Heparin 5000 units/ml) 5,000 units EVERY 12 HOURS SUBQ 11/28/17 21:00 12/28/17 20:59 11/28/17 20:25 Morphine Sulfate (Morphine Sulfate) 4 mg Q4H PRN IVP For Pain 11/28/17 19:15 12/05/17 19:14 11/28/17 23:37 Ondansetron HCl (Zofran) 4 mg Q6H PRN IVP Nausea & Vomiting 11/28/17 13:30 12/28/17 13:29 11/28/17 19:55 Piperacillin Sod/ Tazobactam Sod 3.375 gm/Sodium Chloride 110 ml @ 27.5 mls/hr EVERY 8 HOURS IVPB 11/28/17 23:45 12/03/17 23:44 Vitamin A/Vitamin D (A & D Oint) 1 applic EVERY 12 HOURS TOPIC 11/28/17 21:00 12/28/17 20:59 11/28/17 20:26 Zolpidem Tartrate (Ambien) 5 mg HSPRN PRN ORAL Insomnia 11/28/17 13:30 12/05/17 13:29 Assessment/Plan Problem List: (1) Intractable abdominal pain ICD Codes: R10.9 - Unspecified abdominal pain SNOMED: 07868969, 309006791 (2) HIV (human immunodeficiency virus infection) ICD Codes: B20 - Human immunodeficiency virus [HIV] disease SNOMED: 29682392 (3) Degenerative disc disease SNOMED: 14143907 Qualifiers: Qualified Codes: M51.37 - Other intervertebral disc degeneration, lumbosacral region (4) Neuropathy ICD Codes: G62.9 - Polyneuropathy, unspecified SNOMED: 189441111 Assessment/Plan GI evaluation symptomatic treatment check CD4 and DC8 check stool for O&P dvt prophylaxi f/u renal parameters Oliverio Rm MD November 28, 2017 23:48
[2017-11-29 00:34] VITALS: BP 113/67
[2017-11-29 01:34] LABS: APPEARANCE,URINE CLEAR; BILIRUBIN, URINE NEGATIVE (NEGATIVE); COLOR,URINE PALE YELLOW; GLUCOSE, URINE (UA) NEGATIVE (NEGATIVE); KETONES,URINE NEGATIVE (NEGATIVE); LEUKOCYTE ESTERASE ,URINE NEGATIVE (NEGATIVE); PH,URINE 8 (4.5-8.0); PROTEIN,URINE NEGATIVE (NEGATIVE); UROBILINOGEN,URINE NORMAL MG/DL (0.0-1.0)
[2017-11-29 01:36] LABS: NITRITE,URINE NEGATIVE (NEGATIVE)
[2017-11-29] MEDS: Morphine Sulfate 4mg/ml Inj IVP PRN ×5 (03:57→22:53)
[2017-11-29] MEDS: D5 1/2NS 1,000 ML IV SCH (03:58)
[2017-11-29 04:18] VITALS: BP 127/75
[2017-11-29] MEDS: Zoysn 3.37gm in NS 100ML IVPB SCH ×3 (05:30→22:52)
[2017-11-29 08:00] VITALS: BP 120/69
[2017-11-29] MEDS: Vitamin A&D Oint 2oz Tube TOPIC SCH ×2 (08:56→23:37)
[2017-11-29] MEDS: Heparin 5000 units/ml inj SUBQ SCH ×2 (09:00→23:02)
[2017-11-29 09:08] VITALS: BP 120/69
--- NOTE | 2017-11-29 09:29 | Diagnostic Imaging Report ---
Indication: Abdominal pain Technique: Continuous helical transaxial imaging of the abdomen and pelvis was obtained from the lung bases to the pubic symphysis. No intravenous contrast was administered. Coronal 2-D reformats were also obtained. Automatic Exposure Control was utilized. Total Dose length Product (DLP): 774.[address] Dose Index Volume (CTDIvol): 15.03 mGy Comparison: none Findings: Linear reticular densities are present at the lung bases likely scarring. This is associated with some cylindrical bronchiectasis. Evaluation of solid organs is limited on this study done without intravenous contrast material. There is a 1 cm hypodensity in the right lobe of the liver. Suspected gallstones versus sludge in the gallbladder lumen. Another hypodensity adjacent to the gallbladder noted in the liver. Moderate stool demonstrated in the colon. There is a small umbilical hernia containing fat. Arterial calcifications are present. Hypodensity in the left kidney may be cystic but indeterminate on this exam. Spleen is normal size. There is no ascites. There is no evidence of bowel obstruction. Appendix is not definitely seen. There are no secondary signs of acute appendicitis. There is severe degenerative changes of both hips with acetabular protrusio and marked deformity of both femoral heads, relative obliteration of the joint space. Generalized osteopenia present. Lumbar scoliosis demonstrated with multilevel vacuum disc phenomena and the osteophytes. IMPRESSION: Multitude of incidental chronic findings as described above. No acute abnormalities appreciated. Scarring at the lung bases with traction bronchiectasis. [facility] has communicated the preliminary results to the Emergency Department. Their findings are largely concordant with this report. The CT scanner at [facility] is accredited by the [employer] and the scans are performed using dose optimization techniques as appropriate to a performed exam including Automatic Exposure control.
--- NOTE | 2017-11-29 11:27 | Consultation ---
History of Present Illness General Date patient seen: November 29, 2017 Chief Complaint: Abdominal Pain Present Illness HPI 67 y/o M with hx of HTN, CVA/TIA 2004, HIV (Last Cd4 400, VL unknown), shingles , avascular femoral necrosis, osteoporosis, DDD, rectal cancer presents to ED on 11/28 with 1 day of non radiating R side sharp abd pain (9/10 intensity), weakness, poor appetite Denies f/c, CP, SOB, N/v Febrile to 102, no leukocytosis. CT abdp with no acute findigns, possible gallstone vs sludge, ABd us pending OF note, patient recently admitted here from 10/27-11/04 after a fall, had also had E.coli UTI (+dysuria) Allergies: Coded Allergies: CODEINE (Unverified Allergy, Unknown, 11/28/17) SULFAMETHOXAZOLE (Unverified Allergy, Unknown, 10/27/17) TRIMETHOPRIM (Unverified Allergy, Unknown, 10/27/17) Medication History Scheduled Alendronate Sodium* (Fosamax*), 70 MG ORAL ONCE A WEEK, (Reported) Amlodipine Besylate (Norvasc), 10 MG ORAL DAILY, (Reported) Aspirin* (Aspir 81*), 81 MG ORAL DAILY, (Reported) Calcium Carbonate (Oysco-500), 500 MG PO DAILY, (Reported) Cholecalciferol (Vitamin D3)* (Vitamin D*), 2,000 UNITS ORAL DAILY, (Reported) Clotrimazole* (Lotrimin*), 1 APPLIC TOPIC TWICE A DAY, (Reported) Darunavir Ethanolate* (Prezista*), 600 MG ORAL EVERY 12 HOURS, (Reported) Dutasteride (Avodart), 0.5 MG ORAL DAILY, (Reported) Entecavir* (Baraclude*), 1 MG ORAL DAILY, (Reported) Etravirine* (Intelence*), 200 MG ORAL EVERY 12 HOURS, (Reported) Finasteride* (Proscar*), 5 MG ORAL DAILY, (Reported) Hydrocortisone/Iodoquin/Aloe#2 (Alcortin A Gel), 48 GM TP QID, (Reported) Levothyroxine Sodium* (Levothyroxine Sodium*), 25 MCG ORAL DAILY, (Reported) Lorazepam* (Lorazepam*), 1 MG ORAL TWICE A DAY, (Reported) Losartan Potassium* (Losartan Potassium*), 50 MG ORAL DAILY, (Reported) Meloxicam* (Meloxicam*), 15 MG PO DAILY, (Reported) Methocarbamol (Methocarbamol), 500 MG PO Q6HR, (Reported) Mirtazapine* (Mirtazapine*), 15 MG ORAL BEDTIME, (Reported) Omeprazole (Omeprazole), 20 MG ORAL DAILY, (Reported) Oxycodone HCl/Acetaminophen (Percocet 10-325 mg Tablet), 1 EACH PO TID, ( Reported) Paroxetine Hcl (Paroxetine Hcl), 40 MG ORAL DAILY, (Reported) Raltegravir Potassium (Isentress), 400 MG ORAL TWICE A DAY, (Reported) Ritonavir* (Norvir*), 100 MG ORAL TWICE A DAY, (Reported) Tamsulosin Hcl (Tamsulosin Hcl*), 0.4 MG ORAL BEDTIME, (Reported) Valacyclovir Hcl* (Valtrex*), 1,000 MG ORAL DAILY, (Reported) Scheduled PRN Eszopiclone (Lunesta), 3 MG ORAL BEDTIME PRN for Insomnia, (Reported) Ondansetron Odt* (Zofran Odt*), 8 MG ORAL Q6H PRN for Nausea & Vomiting, ( Reported) Miscellaneous Medications Simethicone (Gas Relief), 125 MG PO, (Reported) Discontinued Medications Amlodipine Besylate (Norvasc), Unknown Dose ORAL DAILY, (Reported) Discontinued Reason: Pt stopped taking med Amlodipine Besylate* (Amlodipine Besylate*), 5 MG ORAL DAILY, (Reported) Discontinued Reason: Pt stopped taking med Ibuprofen* (Motrin*), Unknown Dose ORAL FOUR TIMES A DAY, (Reported) Discontinued Reason: Pt stopped taking med Lorazepam* (Lorazepam*), 1 MG ORAL THREE TIMES A DAY, (Reported) Discontinued Reason: Medication dose changed Metoprolol Succinate* (Metoprolol Succinate*), 25 MG ORAL DAILY Discontinued Reason: Pt stopped taking med Prednisone* (Prednisone*), 20 MG ORAL DAILY Discontinued Reason: Pt stopped taking med Patient History Healthcare decision maker Resuscitation status Full Code Advanced Directive on File Patient History Narrative Pmhx: as above Shx:Denies: smoking, alcohol use, drug use Fhx: non contributory Review of Systems All Other Systems: negative except mentioned in HPI Physical Exam Physical Exam Narrative General Appearance: no apparent distress, alert HEENT: normocephalic, atraumatic, PERRL, normal pharynx Neck: full range of motion, supple/symm/no masses Respiratory: chest non-tender, lungs clear, normal breath sounds, speaking full sentences Cardiovascular regular rate, rhythm, no edema Gastrointestinal: normal bowel sounds, soft, non-distended, no guarding, no rebound, tenderness - RLQ Genitourinary: normal inspection, no CVA tenderness Musculoskeletal: back normal, gait/station normal, normal range of motion, non- tender Neurologic: alert, oriented x3, responsive, motor strength/tone normal, sensory intact, speech normal Skin: b/l leg swelling, erythema, warmth and TTP on distal leg aspect R>L Last 24 Hour Vital Signs Date Time Temp Pulse Resp B/P (MAP) Pulse Ox O2 Delivery O2 Flow Rate FiO2 11/29/17 09:08 99.0 78 20 120/69 93 99.0 11/29/17 08:00 99.0 78 20 120/69 93 99.0 11/29/17 04:55 98.3 11/29/17 04:18 101.4 92 20 127/75 93 101.4 11/29/17 03:56 101.4 11/29/17 00:34 99.5 90 21 113/67 94 99.5 11/28/17 22:14 102.0 11/28/17 20:56 99.8 107 23 137/84 94 99.8 11/28/17 16:00 98.1 78 20 121/73 96 Room Air 98.1 11/28/17 15:05 76 18 114/66 96 Room Air 11/28/17 15:05 76 18 114/66 96 Room Air 11/28/17 12:55 98.2 11/28/17 11:52 98.2 Intake and Output 11/28/17 11/29/17 19:00 07:00 Intake Total 1500 ml 727.5 ml Output Total 900 ml Balance 1500 ml -172.5 ml Intake Oral 0 ml IV Total 1500 ml 727.5 ml Output Urine Total 900 ml # Voids 6 3 # Bowel Movements 8 Laboratory Tests Test 11/28/17 11:36 11/28/17 17:30 11/29/17 00:30 Urine Color Yellow Pale yellow Urine Appearance Clear Clear Urine pH 7 (4.5-8.0) 8 (4.5-8.0) Urine Specific [place] 1.010 (1.005-1.035) 1.015 (1.005-1.035) Urine Protein 1+ (NEGATIVE) H Negative (NEGATIVE) Urine Glucose (UA) Negative (NEGATIVE) Negative (NEGATIVE) Urine Ketones Negative (NEGATIVE) Negative (NEGATIVE) Urine Occult Blood Negative (NEGATIVE) Negative (NEGATIVE) Urine Nitrite Negative (NEGATIVE) Negative (NEGATIVE) Urine Bilirubin Negative (NEGATIVE) Negative (NEGATIVE) Urine Urobilinogen 1 MG/DL (0.0-1.0) H Normal MG/DL (0.0-1.0) Urine Leukocyte Esterase 1+ (NEGATIVE) H Negative (NEGATIVE) Urine RBC 0-2 /HPF (0 - 0) H Urine WBC 0-2 /HPF (0 - 0) Urine Squamous Epithelial Cells Occasional /LPF Urine Bacteria Occasional /HPF (NONE) Urine Mucus Few /LPF (NONE/OCC) H Stool Occult Blood Pending Height (Feet): 5 Height (Inches): 4.00 Weight (Pounds): 105 Medications Current Medications Medications (Trade) Dose Ordered Sig/Romna Route PRN Reason Start Time Stop Time Status Last Admin Dose Admin Acetaminophen (Tylenol) 650 mg Q4H PRN ORAL fever 11/28/17 13:30 12/28/17 13:29 11/29/17 03:56 Clotrimazole (Lotrimin) 1 applic BID TOPIC 11/29/17 09:00 12/29/17 08:59 11/29/17 08:56 Dextrose/Sodium Chloride 1,000 ml @ 50 mls/hr Q20H IV 11/28/17 14:30 12/28/17 14:29 11/29/17 03:58 Heparin Sodium (Porcine) (Heparin 5000 units/ml) 5,000 units EVERY 12 HOURS SUBQ 11/28/17 21:00 12/28/17 20:59 11/29/17 09:00 Morphine Sulfate (Morphine Sulfate) 4 mg Q4H PRN IVP For Pain 11/28/17 19:15 12/05/17 19:14 11/29/17 08:57 Ondansetron HCl (Zofran) 4 mg Q6H PRN IVP Nausea & Vomiting 11/28/17 13:30 12/28/17 13:29 11/29/17 03:56 Piperacillin Sod/ Tazobactam Sod 3.375 gm/Sodium Chloride 110 ml @ 27.5 mls/hr EVERY 8 HOURS IVPB 11/28/17 23:45 12/03/17 23:44 11/29/17 05:30 Vitamin A/Vitamin D (A & D Oint) 1 applic EVERY 12 HOURS TOPIC 11/28/17 21:00 12/28/17 20:59 11/29/17 08:56 Zolpidem Tartrate (Ambien) 5 mg HSPRN PRN ORAL Insomnia 11/28/17 13:30 12/05/17 13:29 Assessment/Plan Assessment/Plan Abx: Zosyn 11/28- Assessment: Sepsis- ?source r/o cholecystitis, bacteremia, cellulitis- +RLQ abd pain- ? appendicitis, appendix not well visualized on CT -CXR: Mild basal atelectasis -Abd US p -CT abd/p wo: Multitude of incidental chronic findings as described above. No acute abnormalities appreciated. Scarring at the lung bases with traction bronchiectasis. Suspected gallstones versus sludge in the gallbladder lumen. Another hypodensity adjacent to the gallbladder noted in the liver. Headache- no meningismus noted B/l leg cellulitis, mild (on baseline chronic edema)- r/o DVT Fever -no leukocytosis -u/a neg -Bcx p HARVINDER HIV, last CD4 400, VL UD per patient - (last saw HIV doc ~ 3 weeks ago) Recent E.coli UTi 10/2017, sp Rx -E.coli mehta S HTN CVA/TIA 2004 Plan: -Continue empiric Zosyn #2 pending cultures, and Abd US -f/u cx -Monitor CBC/BMP, temperatures -HIV VL, CD4, CrAg -CT head wo -aspiration precautions -GI, Sx f/u Thank you for this consultation. Will continue to follow along with you. Discussed with Miranda Flood M.D. November 29, 2017 11:27
--- NOTE | 2017-11-29 11:33 | Diagnostic Imaging Report ---
Indication: Chest pain Comparison: None A single view chest radiograph was obtained. Findings: Lung volumes are low. Heart size is prominent. There is suggestion of basilar atelectasis. Bones are osteopenic. IMPRESSION: Mild basal atelectasis
--- NOTE | 2017-11-29 11:36 | Consultation ---
History of Present Illness General Date patient seen: November 28, 2017 Chief Complaint: Abdominal Pain Present Illness HPI 67 y/o M with hx of depression, anxiety and HTN, CVA/TIA 2004, HIV (Last Cd4 400, VL unknown), shingles, avascular femoral necrosis, osteoporosis, DDD, rectal cancer presents to ED on 11/28 with 1 day of non radiating R side sharp abd pain (9/10 intensity), weakness, poor appetite. the pt pw depressed mood, low energy, anxiety and insomnia. no si/hi. Allergies: Coded Allergies: CODEINE (Unverified Allergy, Unknown, 11/28/17) SULFAMETHOXAZOLE (Unverified Allergy, Unknown, 10/27/17) TRIMETHOPRIM (Unverified Allergy, Unknown, 10/27/17) Medication History Scheduled Alendronate Sodium* (Fosamax*), 70 MG ORAL ONCE A WEEK, (Reported) Amlodipine Besylate (Norvasc), 10 MG ORAL DAILY, (Reported) Aspirin* (Aspir 81*), 81 MG ORAL DAILY, (Reported) Calcium Carbonate (Oysco-500), 500 MG PO DAILY, (Reported) Cholecalciferol (Vitamin D3)* (Vitamin D*), 2,000 UNITS ORAL DAILY, (Reported) Clotrimazole* (Lotrimin*), 1 APPLIC TOPIC TWICE A DAY, (Reported) Darunavir Ethanolate* (Prezista*), 600 MG ORAL EVERY 12 HOURS, (Reported) Dutasteride (Avodart), 0.5 MG ORAL DAILY, (Reported) Entecavir* (Baraclude*), 1 MG ORAL DAILY, (Reported) Etravirine* (Intelence*), 200 MG ORAL EVERY 12 HOURS, (Reported) Finasteride* (Proscar*), 5 MG ORAL DAILY, (Reported) Hydrocortisone/Iodoquin/Aloe#2 (Alcortin A Gel), 48 GM TP QID, (Reported) Levothyroxine Sodium* (Levothyroxine Sodium*), 25 MCG ORAL DAILY, (Reported) Lorazepam* (Lorazepam*), 1 MG ORAL TWICE A DAY, (Reported) Losartan Potassium* (Losartan Potassium*), 50 MG ORAL DAILY, (Reported) Meloxicam* (Meloxicam*), 15 MG PO DAILY, (Reported) Methocarbamol (Methocarbamol), 500 MG PO Q6HR, (Reported) Mirtazapine* (Mirtazapine*), 15 MG ORAL BEDTIME, (Reported) Omeprazole (Omeprazole), 20 MG ORAL DAILY, (Reported) Oxycodone HCl/Acetaminophen (Percocet 10-325 mg Tablet), 1 EACH PO TID, ( Reported) Paroxetine Hcl (Paroxetine Hcl), 40 MG ORAL DAILY, (Reported) Raltegravir Potassium (Isentress), 400 MG ORAL TWICE A DAY, (Reported) Ritonavir* (Norvir*), 100 MG ORAL TWICE A DAY, (Reported) Tamsulosin Hcl (Tamsulosin Hcl*), 0.4 MG ORAL BEDTIME, (Reported) Valacyclovir Hcl* (Valtrex*), 1,000 MG ORAL DAILY, (Reported) Scheduled PRN Eszopiclone (Lunesta), 3 MG ORAL BEDTIME PRN for Insomnia, (Reported) Ondansetron Odt* (Zofran Odt*), 8 MG ORAL Q6H PRN for Nausea & Vomiting, ( Reported) Miscellaneous Medications Simethicone (Gas Relief), 125 MG PO, (Reported) Discontinued Medications Amlodipine Besylate (Norvasc), Unknown Dose ORAL DAILY, (Reported) Discontinued Reason: Pt stopped taking med Amlodipine Besylate* (Amlodipine Besylate*), 5 MG ORAL DAILY, (Reported) Discontinued Reason: Pt stopped taking med Ibuprofen* (Motrin*), Unknown Dose ORAL FOUR TIMES A DAY, (Reported) Discontinued Reason: Pt stopped taking med Lorazepam* (Lorazepam*), 1 MG ORAL THREE TIMES A DAY, (Reported) Discontinued Reason: Medication dose changed Metoprolol Succinate* (Metoprolol Succinate*), 25 MG ORAL DAILY Discontinued Reason: Pt stopped taking med Prednisone* (Prednisone*), 20 MG ORAL DAILY Discontinued Reason: Pt stopped taking med Patient History Limited by: medical condition History Provided By: Patient, Medical Record, PMD Healthcare decision maker Resuscitation status Full Code Advanced Directive on File Past Medical/Surgical History Past Medical/Surgical History: (1) Neuropathy (2) Abdominal pain (3) ARF (acute renal failure) (4) Degenerative disc disease (5) HIV (human immunodeficiency virus infection) (6) Cellulitis Review of Systems Psychiatric: Reports: prior hx, anxiety, depressed feelings, emotional problems Physical Exam General Appearance: WD/WN, no apparent distress, alert Neurologic: oriented x 3, responsive, depressed affect Last 24 Hour Vital Signs Date Time Temp Pulse Resp B/P (MAP) Pulse Ox O2 Delivery O2 Flow Rate FiO2 11/29/17 09:08 99.0 78 20 120/69 93 99.0 11/29/17 08:00 99.0 78 20 120/69 93 99.0 11/29/17 04:55 98.3 11/29/17 04:18 101.4 92 20 127/75 93 101.4 11/29/17 03:56 101.4 11/29/17 00:34 99.5 90 21 113/67 94 99.5 11/28/17 22:14 102.0 11/28/17 20:56 99.8 107 23 137/84 94 99.8 11/28/17 16:00 98.1 78 20 121/73 96 Room Air 98.1 11/28/17 15:05 76 18 114/66 96 Room Air 11/28/17 15:05 76 18 114/66 96 Room Air 11/28/17 12:55 98.2 11/28/17 11:52 98.2 Intake and Output 11/28/17 11/29/17 19:00 07:00 Intake Total 1500 ml 727.5 ml Output Total 900 ml Balance 1500 ml -172.5 ml Intake Oral 0 ml IV Total 1500 ml 727.5 ml Output Urine Total 900 ml # Voids 6 3 # Bowel Movements 8 Laboratory Tests Test 11/28/17 11:36 11/28/17 17:30 11/29/17 00:30 Urine Color Yellow Pale yellow Urine Appearance Clear Clear Urine pH 7 (4.5-8.0) 8 (4.5-8.0) Urine Specific [place] 1.010 (1.005-1.035) 1.015 (1.005-1.035) Urine Protein 1+ (NEGATIVE) H Negative (NEGATIVE) Urine Glucose (UA) Negative (NEGATIVE) Negative (NEGATIVE) Urine Ketones Negative (NEGATIVE) Negative (NEGATIVE) Urine Occult Blood Negative (NEGATIVE) Negative (NEGATIVE) Urine Nitrite Negative (NEGATIVE) Negative (NEGATIVE) Urine Bilirubin Negative (NEGATIVE) Negative (NEGATIVE) Urine Urobilinogen 1 MG/DL (0.0-1.0) H Normal MG/DL (0.0-1.0) Urine Leukocyte Esterase 1+ (NEGATIVE) H Negative (NEGATIVE) Urine RBC 0-2 /HPF (0 - 0) H Urine WBC 0-2 /HPF (0 - 0) Urine Squamous Epithelial Cells Occasional /LPF Urine Bacteria Occasional /HPF (NONE) Urine Mucus Few /LPF (NONE/OCC) H Stool Occult Blood Pending Height (Feet): 5 Height (Inches): 4.00 Weight (Pounds): 105 Medications Current Medications Medications (Trade) Dose Ordered Sig/Roman Route PRN Reason Start Time Stop Time Status Last Admin Dose Admin Acetaminophen (Tylenol) 650 mg Q4H PRN ORAL fever 11/28/17 13:30 12/28/17 13:29 11/29/17 03:56 Clotrimazole (Lotrimin) 1 applic BID TOPIC 11/29/17 09:00 12/29/17 08:59 11/29/17 08:56 Dextrose/Sodium Chloride 1,000 ml @ 50 mls/hr Q20H IV 11/28/17 14:30 12/28/17 14:29 11/29/17 03:58 Heparin Sodium (Porcine) (Heparin 5000 units/ml) 5,000 units EVERY 12 HOURS SUBQ 11/28/17 21:00 12/28/17 20:59 11/29/17 09:00 Morphine Sulfate (Morphine Sulfate) 4 mg Q4H PRN IVP For Pain 11/28/17 19:15 12/05/17 19:14 11/29/17 08:57 Ondansetron HCl (Zofran) 4 mg Q6H PRN IVP Nausea & Vomiting 11/28/17 13:30 12/28/17 13:29 11/29/17 03:56 Piperacillin Sod/ Tazobactam Sod 3.375 gm/Sodium Chloride 110 ml @ 27.5 mls/hr EVERY 8 HOURS IVPB 11/28/17 23:45 12/03/17 23:44 11/29/17 05:30 Vitamin A/Vitamin D (A & D Oint) 1 applic EVERY 12 HOURS TOPIC 11/28/17 21:00 12/28/17 20:59 11/29/17 08:56 Zolpidem Tartrate (Ambien) 5 mg HSPRN PRN ORAL Insomnia 11/28/17 13:30 12/05/17 13:29 Assessment/Plan Status: stable, progressing Assessment/Plan MDD Anxiety Insomnia Rmeron 15mg qhs provided ruchi/Star Moscoso M.D. November 29, 2017 11:36
--- NOTE | 2017-11-29 11:37 | General Progress Note ---
Assessment/Plan Assessment/Plan MDD Anxiety Insomnia Rmeron 15mg qhs provided ro/st Subjective Date patient seen: November 29, 2017 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: Reports: anxiety, depressed, emotional problems Allergies: Coded Allergies: CODEINE (Unverified Allergy, Unknown, 11/28/17) SULFAMETHOXAZOLE (Unverified Allergy, Unknown, 10/27/17) TRIMETHOPRIM (Unverified Allergy, Unknown, 10/27/17) Objective Last 24 Hour Vital Signs Date Time Temp Pulse Resp B/P (MAP) Pulse Ox O2 Delivery O2 Flow Rate FiO2 11/29/17 09:08 99.0 78 20 120/69 93 99.0 11/29/17 08:00 99.0 78 20 120/69 93 99.0 11/29/17 04:55 98.3 11/29/17 04:18 101.4 92 20 127/75 93 101.4 11/29/17 03:56 101.4 11/29/17 00:34 99.5 90 21 113/67 94 99.5 11/28/17 22:14 102.0 11/28/17 20:56 99.8 107 23 137/84 94 99.8 11/28/17 16:00 98.1 78 20 121/73 96 Room Air 98.1 11/28/17 15:05 76 18 114/66 96 Room Air 11/28/17 15:05 76 18 114/66 96 Room Air 11/28/17 12:55 98.2 11/28/17 11:52 98.2 Intake and Output 11/28/17 11/29/17 19:00 07:00 Intake Total 1500 ml 727.5 ml Output Total 900 ml Balance 1500 ml -172.5 ml Intake Oral 0 ml IV Total 1500 ml 727.5 ml Output Urine Total 900 ml # Voids 6 3 # Bowel Movements 8 Laboratory Tests 11/28/17 17:30: Stool Occult Blood [Pending] 11/29/17 00:30: Urine Color Pale yellow, Urine Appearance Clear, Urine pH 8, Urine Specific [place] 1.015, Urine Protein Negative, Urine Glucose (UA) Negative, Urine Ketones Negative, Urine Occult Blood Negative, Urine Nitrite Negative, Urine Bilirubin Negative, Urine Urobilinogen Normal, Urine Leukocyte Esterase Negative Height (Feet): 5 Height (Inches): 4.00 Weight (Pounds): 105 General Appearance: no apparent distress, alert Neurologic: oriented x 3, responsive, depressed affect Star Vences M.D. November 29, 2017 11:37
[2017-11-29 12:00] VITALS: BP 121/69
--- NOTE | 2017-11-29 12:48 | Pulmonology Progress Note ---
Assessment/Plan Problems: (1) Intractable abdominal pain (2) HIV (human immunodeficiency virus infection) (3) Severe protein-calorie malnutrition (4) Neuropathy (5) Degenerative disc disease Assessment/Plan no much change surgical consult appreciated symptomatic treatment full liquid diet pain management Subjective ROS Limited/Unobtainable: No Constitutional: Reports: no symptoms HEENT: Repors: no symptoms Respiratory: Reports: no symptoms Gastrointestinal/Abdominal: Reports: constipation, bloating Allergies: Coded Allergies: CODEINE (Unverified Allergy, Unknown, 11/28/17) SULFAMETHOXAZOLE (Unverified Allergy, Unknown, 10/27/17) TRIMETHOPRIM (Unverified Allergy, Unknown, 10/27/17) Objective Last 24 Hour Vital Signs Date Time Temp Pulse Resp B/P (MAP) Pulse Ox O2 Delivery O2 Flow Rate FiO2 11/29/17 09:08 99.0 78 20 120/69 93 99.0 11/29/17 08:00 99.0 78 20 120/69 93 99.0 11/29/17 04:55 98.3 11/29/17 04:18 101.4 92 20 127/75 93 101.4 11/29/17 03:56 101.4 11/29/17 00:34 99.5 90 21 113/67 94 99.5 11/28/17 22:14 102.0 11/28/17 20:56 99.8 107 23 137/84 94 99.8 11/28/17 16:00 98.1 78 20 121/73 96 Room Air 98.1 11/28/17 15:05 76 18 114/66 96 Room Air 11/28/17 15:05 76 18 114/66 96 Room Air 11/28/17 12:55 98.2 Intake and Output 11/28/17 11/29/17 19:00 07:00 Intake Total 1500 ml 727.5 ml Output Total 900 ml Balance 1500 ml -172.5 ml Intake Oral 0 ml IV Total 1500 ml 727.5 ml Output Urine Total 900 ml # Voids 6 3 # Bowel Movements 8 General Appearance: cachetic HEENT: normocephalic Cardiovascular: normal rate Abdomen: normal bowel sounds Genitourinary: normal external genitalia Skin: no rash Laboratory Tests 11/28/17 17:30: Stool Occult Blood Negative 11/29/17 00:30: Urine Color Pale yellow, Urine Appearance Clear, Urine pH 8, Urine Specific [place] 1.015, Urine Protein Negative, Urine Glucose (UA) Negative, Urine Ketones Negative, Urine Occult Blood Negative, Urine Nitrite Negative, Urine Bilirubin Negative, Urine Urobilinogen Normal, Urine Leukocyte Esterase Negative Current Medications Medications (Trade) Dose Ordered Sig/Roman Route PRN Reason Start Time Stop Time Status Last Admin Dose Admin Acetaminophen (Tylenol) 650 mg Q4H PRN ORAL fever 11/28/17 13:30 12/28/17 13:29 11/29/17 03:56 Clotrimazole (Lotrimin) 1 applic BID TOPIC 11/29/17 09:00 12/29/17 08:59 11/29/17 08:56 Dextrose/Sodium Chloride 1,000 ml @ 50 mls/hr Q20H IV 11/28/17 14:30 12/28/17 14:29 11/29/17 03:58 Heparin Sodium (Porcine) (Heparin 5000 units/ml) 5,000 units EVERY 12 HOURS SUBQ 11/28/17 21:00 12/28/17 20:59 11/29/17 09:00 Morphine Sulfate (Morphine Sulfate) 4 mg Q4H PRN IVP For Pain 11/28/17 19:15 12/05/17 19:14 11/29/17 08:57 Ondansetron HCl (Zofran) 4 mg Q6H PRN IVP Nausea & Vomiting 11/28/17 13:30 12/28/17 13:29 11/29/17 03:56 Piperacillin Sod/ Tazobactam Sod 3.375 gm/Sodium Chloride 110 ml @ 27.5 mls/hr EVERY 8 HOURS IVPB 11/28/17 23:45 12/03/17 23:44 11/29/17 05:30 Vitamin A/Vitamin D (A & D Oint) 1 applic EVERY 12 HOURS TOPIC 11/28/17 21:00 12/28/17 20:59 11/29/17 08:56 Zolpidem Tartrate (Ambien) 5 mg HSPRN PRN ORAL Insomnia 11/28/17 13:30 12/05/17 13:29 Oliverio Rm MD November 29, 2017 12:48
--- NOTE | 2017-11-29 14:26 | Diagnostic Imaging Report ---
Indication:Abdominal pain Technique: Grayscale and duplex Doppler imaging of the abdomen performed. Comparison: None Findings: The liver is unremarkable. Gallbladder noted. No definite gallstones are identified but the gallbladder is distended. There is sludge present. No biliary ductal dilatation is demonstrated. The CBD is about 8 mm. There is no hydronephrosis. There is generalized cortical thinning of both kidneys. Left renal cyst demonstrated measuring 2.7 cm. Spleen is prominent measuring 13 cm. There is no ascites. Aorta and pancreas are not well seen. Portal vein is patent by Doppler. IMPRESSION: Mild splenomegaly. Left renal cyst Cortical atrophy of both kidneys. Gallbladder sludge
--- NOTE | 2017-11-29 14:38 | Consultation ---
History of Present Illness General Date patient seen: November 29, 2017 Chief Complaint: Abdominal Pain Reason for Consultation: abdominal pain Present Illness HPI 67M [place] resident presented with acute onset of abdominal pain. states pain started 1-2 days ago and was right abd/flank 10/10 pain without radiation. no n/v/f/c. otherwise well. has not had similar episodes prior. pain meds make pain better. no other changes recently. surgery called to evaluate for abdominal pain. patient seen, chart reviewed, patient examined. Allergies: Coded Allergies: CODEINE (Unverified Allergy, Unknown, 11/28/17) SULFAMETHOXAZOLE (Unverified Allergy, Unknown, 10/27/17) TRIMETHOPRIM (Unverified Allergy, Unknown, 10/27/17) Medication History Scheduled Alendronate Sodium* (Fosamax*), 70 MG ORAL ONCE A WEEK, (Reported) Amlodipine Besylate (Norvasc), 10 MG ORAL DAILY, (Reported) Aspirin* (Aspir 81*), 81 MG ORAL DAILY, (Reported) Calcium Carbonate (Oysco-500), 500 MG PO DAILY, (Reported) Cholecalciferol (Vitamin D3)* (Vitamin D*), 2,000 UNITS ORAL DAILY, (Reported) Clotrimazole* (Lotrimin*), 1 APPLIC TOPIC TWICE A DAY, (Reported) Darunavir Ethanolate* (Prezista*), 600 MG ORAL EVERY 12 HOURS, (Reported) Dutasteride (Avodart), 0.5 MG ORAL DAILY, (Reported) Entecavir* (Baraclude*), 1 MG ORAL DAILY, (Reported) Etravirine* (Intelence*), 200 MG ORAL EVERY 12 HOURS, (Reported) Finasteride* (Proscar*), 5 MG ORAL DAILY, (Reported) Hydrocortisone/Iodoquin/Aloe#2 (Alcortin A Gel), 48 GM TP QID, (Reported) Levothyroxine Sodium* (Levothyroxine Sodium*), 25 MCG ORAL DAILY, (Reported) Lorazepam* (Lorazepam*), 1 MG ORAL TWICE A DAY, (Reported) Losartan Potassium* (Losartan Potassium*), 50 MG ORAL DAILY, (Reported) Meloxicam* (Meloxicam*), 15 MG PO DAILY, (Reported) Methocarbamol (Methocarbamol), 500 MG PO Q6HR, (Reported) Mirtazapine* (Mirtazapine*), 15 MG ORAL BEDTIME, (Reported) Omeprazole (Omeprazole), 20 MG ORAL DAILY, (Reported) Oxycodone HCl/Acetaminophen (Percocet 10-325 mg Tablet), 1 EACH PO TID, ( Reported) Paroxetine Hcl (Paroxetine Hcl), 40 MG ORAL DAILY, (Reported) Raltegravir Potassium (Isentress), 400 MG ORAL TWICE A DAY, (Reported) Ritonavir* (Norvir*), 100 MG ORAL TWICE A DAY, (Reported) Tamsulosin Hcl (Tamsulosin Hcl*), 0.4 MG ORAL BEDTIME, (Reported) Valacyclovir Hcl* (Valtrex*), 1,000 MG ORAL DAILY, (Reported) Scheduled PRN Eszopiclone (Lunesta), 3 MG ORAL BEDTIME PRN for Insomnia, (Reported) Ondansetron Odt* (Zofran Odt*), 8 MG ORAL Q6H PRN for Nausea & Vomiting, ( Reported) Miscellaneous Medications Simethicone (Gas Relief), 125 MG PO, (Reported) Discontinued Medications Amlodipine Besylate (Norvasc), Unknown Dose ORAL DAILY, (Reported) Discontinued Reason: Pt stopped taking med Amlodipine Besylate* (Amlodipine Besylate*), 5 MG ORAL DAILY, (Reported) Discontinued Reason: Pt stopped taking med Ibuprofen* (Motrin*), Unknown Dose ORAL FOUR TIMES A DAY, (Reported) Discontinued Reason: Pt stopped taking med Lorazepam* (Lorazepam*), 1 MG ORAL THREE TIMES A DAY, (Reported) Discontinued Reason: Medication dose changed Metoprolol Succinate* (Metoprolol Succinate*), 25 MG ORAL DAILY Discontinued Reason: Pt stopped taking med Prednisone* (Prednisone*), 20 MG ORAL DAILY Discontinued Reason: Pt stopped taking med Patient History History Provided By: Patient, Medical Record, PMD Healthcare decision maker Resuscitation status Full Code Advanced Directive on File Past Medical/Surgical History Past Medical/Surgical History: (1) Abdominal pain (2) ARF (acute renal failure) (3) Degenerative disc disease (4) HIV (human immunodeficiency virus infection) (5) Cellulitis (6) Neuropathy (7) Intractable abdominal pain (8) Severe protein-calorie malnutrition Review of Systems All Other Systems: negative except mentioned in HPI Physical Exam General Appearance: no apparent distress Lines, tubes and drains: peripheral HEENT: normocephalic, mucous membranes moist Neck: normal inspection Respiratory/Chest: lungs clear, normal breath sounds, no respiratory distress, no accessory muscle use Cardiovascular/Chest: normal peripheral pulses Abdomen: normal bowel sounds, soft, no organomegaly, no mass, tender, other - no peritonitis. no rebound. no guarding. Skin Exam: warm/dry Neurologic: alert, oriented x 3, responsive Last 24 Hour Vital Signs Date Time Temp Pulse Resp B/P (MAP) Pulse Ox O2 Delivery O2 Flow Rate FiO2 11/29/17 12:00 98.0 87 20 121/69 92 98.0 11/29/17 09:08 99.0 78 20 120/69 93 99.0 11/29/17 08:00 99.0 78 20 120/69 93 99.0 11/29/17 04:55 98.3 11/29/17 04:18 101.4 92 20 127/75 93 101.4 11/29/17 03:56 101.4 11/29/17 00:34 99.5 90 21 113/67 94 99.5 11/28/17 22:14 102.0 11/28/17 20:56 99.8 107 23 137/84 94 99.8 11/28/17 16:00 98.1 78 20 121/73 96 Room Air 98.1 11/28/17 15:05 76 18 114/66 96 Room Air 11/28/17 15:05 76 18 114/66 96 Room Air Intake and Output 11/28/17 11/29/17 19:00 07:00 Intake Total 1500 ml 727.5 ml Output Total 900 ml Balance 1500 ml -172.5 ml Intake Oral 0 ml IV Total 1500 ml 727.5 ml Output Urine Total 900 ml # Voids 6 3 # Bowel Movements 8 Laboratory Tests Test 11/28/17 17:30 11/29/17 00:30 Stool Occult Blood Negative (NEGATIVE) Urine Color Pale yellow Urine Appearance Clear Urine pH 8 (4.5-8.0) Urine Specific [place] 1.015 (1.005-1.035) Urine Protein Negative (NEGATIVE) Urine Glucose (UA) Negative (NEGATIVE) Urine Ketones Negative (NEGATIVE) Urine Occult Blood Negative (NEGATIVE) Urine Nitrite Negative (NEGATIVE) Urine Bilirubin Negative (NEGATIVE) Urine Urobilinogen Normal MG/DL (0.0-1.0) Urine Leukocyte Esterase Negative (NEGATIVE) Microbiology Date/Time Source Procedure Growth Status 11/29/17 12:00 Nasopharynx Influenza Types A,B Antigen ([place]) - Final Complete Height (Feet): 5 Height (Inches): 4.00 Weight (Pounds): 105 Medications Current Medications Medications (Trade) Dose Ordered Sig/Roman Route PRN Reason Start Time Stop Time Status Last Admin Dose Admin Acetaminophen (Tylenol) 650 mg Q4H PRN ORAL fever 11/28/17 13:30 12/28/17 13:29 11/29/17 03:56 Clotrimazole (Lotrimin) 1 applic BID TOPIC 11/29/17 09:00 12/29/17 08:59 11/29/17 08:56 Dextrose/Sodium Chloride 1,000 ml @ 50 mls/hr Q20H IV 11/28/17 14:30 12/28/17 14:29 11/29/17 03:58 Heparin Sodium (Porcine) (Heparin 5000 units/ml) 5,000 units EVERY 12 HOURS SUBQ 11/28/17 21:00 12/28/17 20:59 11/29/17 09:00 Morphine Sulfate (Morphine Sulfate) 4 mg Q4H PRN IVP For Pain 11/28/17 19:15 12/05/17 19:14 11/29/17 13:48 Ondansetron HCl (Zofran) 4 mg Q6H PRN IVP Nausea & Vomiting 11/28/17 13:30 12/28/17 13:29 11/29/17 03:56 Piperacillin Sod/ Tazobactam Sod 3.375 gm/Sodium Chloride 110 ml @ 27.5 mls/hr EVERY 8 HOURS IVPB 11/28/17 23:45 12/03/17 23:44 11/29/17 13:48 Vitamin A/Vitamin D (A & D Oint) 1 applic EVERY 12 HOURS TOPIC 11/28/17 21:00 12/28/17 20:59 11/29/17 08:56 Zolpidem Tartrate (Ambien) 5 mg HSPRN PRN ORAL Insomnia 11/28/17 13:30 12/05/17 13:29 Assessment/Plan Problem List: (1) Intractable abdominal pain Assessment & Plan: 67M with abdominal pain, mainly right side/flank. exam fairly benign but patient states pain severe. no n/v/f/c. labs okay. otherwise well. possible constipation vs renal stone vs GB? CT and US without significant abnormality. -okay to trail oral diet -bowel regimen -will follow with serial exams. thank you for this consultation. will follow with recs. - ICD Codes: R10.9 - Unspecified abdominal pain SNOMED: [id number], [id number] Status: stable Zaheer Cifuentes November 29, 2017 14:38
--- NOTE | 2017-11-29 14:40 | GI Initial Consult Note ---
History of Present Illness General Date patient seen: November 29, 2017 Time patient seen: 16:02 Reason for Hospitalization: Abdominal Pain Referring physician: BEBETO DONALDSON Reason for Consultation: abdominal pain Present Illness HPI 67-year-old male presents ED complaining of abdominal pain. Patient comes from a home assisted living. Pain started yesterday. Right-sided, sharp, 9 out of 10, nonradiating. Patient states he also feels very weak. Not eating or drinking. Patient states he was admitted here recently for leg pain and back pain. Denies fevers or chills. Denies chest pain shortness of breath. Denies nausea or vomiting. No other aggravating relieving factors. Denies any other associated symptoms. GI consulted for abdominal pain. Pt seen, awake A&Ox4 NAD with notable tremors c/o of generalized pain, BLE and RLQ abdominal pain. No noted N/V/D. Denies any constipation. Presents today with anemia, negative OB stool. States he has history of rectal cancer, denies any rectal bleeding or pain. Negative CT. Abdominal US shows CBD 8mm dilation. Last colonoscopy 10+ years ago. Home Meds Reported Medications Methocarbamol (Methocarbamol) 500 Mg Tablet, 500 MG PO Q6HR, TAB 11/28/17 Amlodipine Besylate (Norvasc) 10 Mg Tablet, 10 MG ORAL DAILY, TAB 11/28/17 Clotrimazole* (LOTRIMIN*) 15 Gm Cream..g., 1 APPLIC TOPIC TWICE A DAY, GM 11/28/17 Cholecalciferol (Vitamin D3)* (VITAMIN D*) 1,000 Unit Tablet, 2000 UNITS ORAL DAILY, #30 TAB 0 Refills 11/28/17 Simethicone (GAS RELIEF) 125 Mg Tab.chew, 125 MG PO for gas, TAB 11/28/17 Hydrocortisone/Iodoquin/Aloe#2 (Alcortin A Gel) 48 Gm Gel..gram., 48 GM TP QID, GM 11/28/17 Lorazepam* (LORAZEPAM*) 1 Mg Tablet, 1 MG ORAL TWICE A DAY, TAB 11/28/17 Eszopiclone (LUNESTA) 3 Mg Tablet, 3 MG ORAL BEDTIME PRN for Insomnia, TAB 0 Refills 11/28/17 Paroxetine Hcl (PAROXETINE HCL) 40 Mg Tablet, 40 MG ORAL DAILY, #30 TAB 0 Refills 11/28/17 Ondansetron Odt* (ZOFRAN ODT*) 8 Mg Tab.rapdis, 8 MG ORAL Q6H PRN for Nausea & Vomiting, #30 TAB 11/28/17 Calcium Carbonate (OYSCO-500) 500 Mg Tablet, 500 MG PO DAILY, TAB 11/28/17 Meloxicam* (MELOXICAM*) 15 Mg Tablet, 15 MG PO DAILY, TAB 11/28/17 Mirtazapine* (MIRTAZAPINE*) 15 Mg Tablet, 15 MG ORAL BEDTIME, TAB 11/28/17 Darunavir Ethanolate* (PREZISTA*) 600 Mg Tablet, 600 MG ORAL EVERY 12 HOURS, TAB 11/28/17 Ritonavir* (NORVIR*) 100 Mg Capsule, 100 MG ORAL TWICE A DAY, #60 CAP 11/28/17 Raltegravir Potassium (ISENTRESS) 100 Mg Tab.chew, 400 MG ORAL TWICE A DAY, TAB 11/28/17 Levothyroxine Sodium* (LEVOTHYROXINE SODIUM*) 75 Mcg Tablet, 25 MCG ORAL DAILY, TAB Take in the morning on an empty stomach, at least 30 minutes before food. 11/28/17 Losartan Potassium* (LOSARTAN POTASSIUM*) 50 Mg Tablet, 50 MG ORAL DAILY, TAB 11/28/17 Finasteride* (PROSCAR*) 5 Mg Tablet, 5 MG ORAL DAILY, #30 TAB 0 Refills 11/28/17 Tamsulosin Hcl (TAMSULOSIN HCL*) 0.4 Mg Cap.er.24h, 0.4 MG ORAL BEDTIME, CAP 11/28/17 Valacyclovir Hcl* (VALTREX*) 500 Mg Tablet, 1000 MG ORAL DAILY, TAB 11/28/17 Alendronate Sodium* (FOSAMAX*) 70 Mg Tablet, 70 MG ORAL ONCE A WEEK, TAB 11/28/17 Aspirin* (ASPIR 81*) 81 Mg Tablet.dr, 81 MG ORAL DAILY, TAB 11/28/17 Omeprazole (OMEPRAZOLE) 20 Mg Capsule.dr, 20 MG ORAL DAILY, CAP 11/28/17 Oxycodone HCl/Acetaminophen (Percocet 10-325 mg Tablet) 1 Each Tablet, 1 EACH PO TID for pain, TAB 11/04/17 Dutasteride (AVODART) 0.5 Mg Capsule, 0.5 MG ORAL DAILY, CAP 10/27/17 Entecavir* (BARACLUDE*) 0.5 Mg Tablet, 1 MG ORAL DAILY, TAB 10/27/17 Etravirine* (INTELENCE*) 100 Mg Tablet, 200 MG ORAL EVERY 12 HOURS, #60 TAB 0 Refills 10/27/17 Discontinued Reported Medications Amlodipine Besylate* (AMLODIPINE BESYLATE*) 5 Mg Tablet, 5 MG ORAL DAILY, TAB 11/28/17 Ibuprofen* (MOTRIN*) 600 Mg Tablet, ORAL FOUR TIMES A DAY, #30 TAB 0 Refills 10/27/17 Amlodipine Besylate (Norvasc) 2.5 Mg Tablet, ORAL DAILY, TAB 10/27/17 Lorazepam* (LORAZEPAM*) 1 Mg Tablet, 1 MG ORAL THREE TIMES A DAY, TAB 10/27/17 Discontinued Scripts Prednisone* (PREDNISONE*) 20 Mg Tablet, 20 MG ORAL DAILY for 7 Days, #20 TAB Prov:JARON HARRISON 11/04/17 Metoprolol Succinate* (METOPROLOL SUCCINATE*) 25 Mg Tab.er.24h, 25 MG ORAL DAILY for 30 Days, #30 TAB Prov:JARON HARRISON 11/04/17 Med list reviewed/reconciled: Yes Allergies: Coded Allergies: CODEINE (Unverified Allergy, Unknown, 11/28/17) SULFAMETHOXAZOLE (Unverified Allergy, Unknown, 10/27/17) TRIMETHOPRIM (Unverified Allergy, Unknown, 10/27/17) Patient History History Provided By: Patient, Medical Record PMH Narrative Past Medical History: HTN, CVA/TIA, other - rectal cancer Past Surgical History: none Pertinent Family History: none Social History: Denies: smoking, alcohol use, drug use Immunizations: UTD Reviewed Nursing Documentation: PMH: Agreed; PSxH: Agreed Nursing Documentation-PMH Past Medical History: No History, Except For Hx Hypertension: Yes Hx Cancer: Yes - RECTAL Hx Neurological Problems: Yes Hx Cerebrovascular Accident: Yes - 2004 Hx Weakness: Yes Social History: Denies: smoking, alcohol use, drug use, other Review of Systems All Other Systems: negative except mentioned in HPI Physical Exam Vital Signs Date Time Temp Pulse Resp B/P (MAP) Pulse Ox O2 Delivery O2 Flow Rate FiO2 11/28/17 10:23 98.2 102 18 97/62 100 Room Air 98.2 Sp02 EP Interpretation: reviewed, normal Labs Laboratory Tests Test 11/28/17 17:30 11/29/17 00:30 Stool Occult Blood Negative (NEGATIVE) Urine Color Pale yellow Urine Appearance Clear Urine pH 8 (4.5-8.0) Urine Specific [place] 1.015 (1.005-1.035) Urine Protein Negative (NEGATIVE) Urine Glucose (UA) Negative (NEGATIVE) Urine Ketones Negative (NEGATIVE) Urine Occult Blood Negative (NEGATIVE) Urine Nitrite Negative (NEGATIVE) Urine Bilirubin Negative (NEGATIVE) Urine Urobilinogen Normal MG/DL (0.0-1.0) Urine Leukocyte Esterase Negative (NEGATIVE) General Appearance: well appearing, no apparent distress, alert Head: normocephalic EENT: PERRL/EOMI, normal ENT inspection Neck: supple Respiratory: normal breath sounds, no respiratory distress Cardiovascular: normal rate Gastrointestinal: normal inspection, non tender, soft, normal bowel sounds, non -distended Rectal: deferred Genitourinary: deferred Musculoskeletal: normal inspection, back normal Neurologic: normal inspection, alert, oriented x3, responsive Psychiatric: normal inspection, judgement/insight normal, memory normal Skin: normal inspection, normal color, no rash, warm/dry, palpation normal, well hydrated Lymphatic: normal inspection, no adenopathy Current Medications Current Medications Medications (Trade) Dose Ordered Sig/Roman Route PRN Reason Start Time Stop Time Status Last Admin Dose Admin Acetaminophen (Tylenol) 650 mg Q4H PRN ORAL fever 11/28/17 13:30 12/28/17 13:29 11/29/17 03:56 Clotrimazole (Lotrimin) 1 applic BID TOPIC 11/29/17 09:00 12/29/17 08:59 11/29/17 08:56 Dextrose/Sodium Chloride 1,000 ml @ 50 mls/hr Q20H IV 11/28/17 14:30 12/28/17 14:29 11/29/17 03:58 Heparin Sodium (Porcine) (Heparin 5000 units/ml) 5,000 units EVERY 12 HOURS SUBQ 11/28/17 21:00 12/28/17 20:59 11/29/17 09:00 Morphine Sulfate (Morphine Sulfate) 4 mg Q4H PRN IVP For Pain 11/28/17 19:15 12/05/17 19:14 11/29/17 13:48 Ondansetron HCl (Zofran) 4 mg Q6H PRN IVP Nausea & Vomiting 11/28/17 13:30 12/28/17 13:29 11/29/17 03:56 Piperacillin Sod/ Tazobactam Sod 3.375 gm/Sodium Chloride 110 ml @ 27.5 mls/hr EVERY 8 HOURS IVPB 11/28/17 23:45 12/03/17 23:44 11/29/17 13:48 Vitamin A/Vitamin D (A & D Oint) 1 applic EVERY 12 HOURS TOPIC 11/28/17 21:00 12/28/17 20:59 11/29/17 08:56 Zolpidem Tartrate (Ambien) 5 mg HSPRN PRN ORAL Insomnia 11/28/17 13:30 12/05/17 13:29 GI: Plan Problems: (1) Intractable abdominal pain (2) Severe protein-calorie malnutrition Plan hyperchromic anemia >> fu B12/folate CT AP reviewed >> unremarkable abdominal US reviewed >> CBD dilation 8mm OB stool negative okay to advance diet pain mgmt bentyl for abdominal spasms monitor H&H, prn transfusions bowel regime ppi fu labs outpatient GI procedures given history of rectal cancer Discussed with Dr. Germain. Thank you for this patient referral, we will follow. The patient was seen and examined at bedside and all new and available data was reviewed in the patients chart. I agree with the above findings, impression and plan. (Patient seen earlier today. Signature stamp does not reflect patient encounter time.). - MD Keena MelendezBannerShazia CHANNEL PROGRAM MANAGER November 29, 2017 14:40
[2017-11-29] MEDS ORDERED: Dicyclomine HCl 10mg/5ml oral soln ORAL PRN (14:45)
[2017-11-29] MEDS ORDERED: Vancomycin 1gm/D5W 275ml IVPB ONE ×2 (17:00)
[2017-11-29] MEDS: Darunavir 600mg tab ORAL SCH (17:31)
[2017-11-29] MEDS: Ritonavir 100mg tab ORAL SCH (17:32)
[2017-11-29 20:00] VITALS: BP 110/60
[2017-11-29] MEDS: Isentress 400mg tab ORAL SCH (22:53)
[2017-11-29] MEDS: Etravirine 100mg tab ORAL SCH (22:53)
[2017-11-30] VITALS: BP 135/81
[2017-11-30 04:00] VITALS: BP 102/54
[2017-11-30] MEDS: Morphine Sulfate 4mg/ml Inj IVP PRN ×3 (04:17→20:41)
[2017-11-30] MEDS: D5 1/2NS 1,000 ML IV SCH (05:28)
[2017-11-30] MEDS: Zoysn 3.37gm in NS 100ML IVPB SCH ×3 (05:28→22:08)
[2017-11-30 08:00] VITALS: BP 101/56
[2017-11-30 08:04] LABS: BASOPHILS % (AUTO) 0.3 % (0.0-2.0); EOSINOPHILS % (AUTO) 1.6 % (0.0-3.0); HEMATOCRIT 35.3 % (42.0-52.0); HEMOGLOBIN 12.3 G/DL (14.2-18.0); LYMPHOCYTES % (AUTO) 20.5 % (20.0-45.0); MEAN CORPUSCULAR VOLUME 98 FL (80-99); MONOCYTES % (AUTO) 5.4 % (1.0-10.0); NEUTROPHILS % (AUTO) 72.2 % (45.0-75.0); PLATELET COUNT 146 K/UL (150-450); RED CELL DISTRIBUTION WIDTH 11.1 % (11.6-14.8); WHITE BLOOD COUNT 10.1 K/UL (4.8-10.8)
[2017-11-30 08:18] LABS: ALANINE AMINOTRANSFERASE 29 U/L (12-78); ALBUMIN 2.8 G/DL (3.4-5.0); ALBUMIN/GLOBULIN RATIO 0.7 (1.0-2.7); ALKALINE PHOSPHATASE 98 U/L (46-116); ANION GAP 9 mmol/L (5-15); ASPARTATE AMINO TRANSFERASE 33 U/L (15-37); BILIRUBIN,TOTAL 0.8 MG/DL (0.2-1.0); BLOOD UREA NITROGEN 9 mg/dL (7-18); CALCIUM 8.3 MG/DL (8.5-10.1); CARBON DIOXIDE 24 MMOL/L (21-32); CHLORIDE 109 MMOL/L (98-107); PHOSPHORUS 2.2 MG/DL (2.5-4.9); POTASSIUM 3.3 MMOL/L (3.5-5.1); SODIUM 142 MMOL/L (136-145)
[2017-11-30] MEDS: Heparin 5000 units/ml inj SUBQ SCH ×2 (09:00→22:16)
--- NOTE | 2017-11-30 09:32 | Diagnostic Imaging Report ---
APPROVED REPORT CPT Code: 41744 Present Symptoms Comments: Pain Technically difficult study due to BLE contracture of hip and knee. BILATERAL: Imaging reveals a patent deep venous system bilaterally. There is no evidence of thrombus within the femoral, popliteal or distal tibial segments. The greater saphenous veins are also within normal limits. Doppler indicates normal spontaneous flow within these segments. The mid segments of tibial veins not well visualized.
[2017-11-30] MEDS: Ritonavir 100mg tab ORAL SCH ×2 (09:34→18:52)
[2017-11-30] MEDS: Isentress 400mg tab ORAL SCH ×2 (09:34→20:40)
[2017-11-30] MEDS: Docusate 100mg cap ORAL SCH ×2 (09:35→18:52)
[2017-11-30] MEDS: Darunavir 600mg tab ORAL SCH ×2 (09:35→18:52)
[2017-11-30] MEDS: valACYclovir HCL 500mg tab ORAL SCH (09:35)
[2017-11-30] MEDS: Etravirine 100mg tab ORAL SCH ×2 (09:35→20:40)
[2017-11-30] MEDS: Vitamin A&D Oint 2oz Tube TOPIC SCH ×2 (09:36→22:17)
[2017-11-30] MEDS ORDERED: Potassium Phosphate 30 MM in NS 275 ML IV SCH (10:30)
--- NOTE | 2017-11-30 11:58 | GI Progress Note ---
Assessment/Plan Problems: (1) Severe protein-calorie malnutrition ICD Codes: E43 - Unspecified severe protein-calorie malnutrition SNOMED: 250817223 (2) Intractable abdominal pain ICD Codes: R10.9 - Unspecified abdominal pain SNOMED: 09803806, 121344024 (3) Neuropathy ICD Codes: G62.9 - Polyneuropathy, unspecified SNOMED: 838390329 (4) Abdominal pain ICD Codes: R10.9 - Unspecified abdominal pain SNOMED: 22245995 Qualifiers: Qualified Codes: R10.11 - Right upper quadrant pain Status: stable Status Narrative Discussed with Dr. Germain. Assessment/Plan hyperchromic anemia CT AP reviewed >> unremarkable abdominal US reviewed >> CBD dilation 8mm OB stool negative okay to advance diet pain mgmt Bentyl prn abdominal spasms monitor H&H, prn transfusions bowel regime ppi fu labs outpatient GI procedures given history of rectal cancer The patient was seen and examined at bedside and all new and available data was reviewed in the patients chart. I agree with the above findings, impression and plan. (Patient seen earlier today. Signature stamp does not reflect patient encounter time.). - Dejan Germain MD Subjective Gastrointestinal/Abdominal: Reports: abdominal pain - improved Objective Last 24 Hour Vital Signs Date Time Temp Pulse Resp B/P (MAP) Pulse Ox O2 Delivery O2 Flow Rate FiO2 11/30/17 10:49 98.2 11/30/17 10:06 98.2 11/30/17 09:36 98.2 11/30/17 08:00 98.2 73 18 101/56 95 98.2 11/30/17 04:17 99.4 11/30/17 04:00 99.1 77 20 102/54 94 99.1 11/30/17 02:49 99.4 11/30/17 01:50 99.4 11/30/17 00:00 99.4 81 19 135/81 92 99.4 11/29/17 22:53 98.5 11/29/17 20:00 98.5 83 20 110/60 95 98.5 11/29/17 12:00 98.0 87 20 121/69 92 98.0 Intake and Output 11/29/17 11/30/17 19:00 07:00 Intake Total 250 ml 437.5 ml Output Total 1200 ml Balance 250 ml -762.5 ml Intake Oral 200 ml IV Total 50 ml 437.5 ml Output Urine Total 1200 ml # Voids 4 # Bowel Movements 1 Laboratory Tests Test 11/30/17 07:31 White Blood Count 10.1 K/UL (4.8-10.8) Red Blood Count 3.60 M/UL (4.70-6.10) L Hemoglobin 12.3 G/DL (14.2-18.0) L Hematocrit 35.3 % (42.0-52.0) L Mean Corpuscular Volume 98 FL (80-99) Mean Corpuscular Hemoglobin 34.1 PG (27.0-31.0) H Mean Corpuscular Hemoglobin Concent 34.8 G/DL (32.0-36.0) Red Cell Distribution Width 11.1 % (11.6-14.8) L Platelet Count 146 K/UL (150-450) L Mean Platelet Volume 8.1 FL (6.5-10.1) Neutrophils (%) (Auto) 72.2 % (45.0-75.0) Lymphocytes (%) (Auto) 20.5 % (20.0-45.0) Monocytes (%) (Auto) 5.4 % (1.0-10.0) Eosinophils (%) (Auto) 1.6 % (0.0-3.0) Basophils (%) (Auto) 0.3 % (0.0-2.0) Lymphocytes Pending Erythrocyte Sedimentation Rate 101 MM/HR (0-20) H Sodium Level 142 MMOL/L (136-145) Potassium Level 3.3 MMOL/L (3.5-5.1) L Chloride Level 109 MMOL/L (98-107) H Carbon Dioxide Level 24 MMOL/L (21-32) Anion Gap 9 mmol/L (5-15) Blood Urea Nitrogen 9 mg/dL (7-18) Creatinine 1.0 MG/DL (0.55-1.30) Estimat Glomerular Filtration Rate > 60 mL/min (>60) Glucose Level 100 MG/DL (74-106) Calcium Level 8.3 MG/DL (8.5-10.1) L Phosphorus Level 2.2 MG/DL (2.5-4.9) L Magnesium Level 2.1 MG/DL (1.8-2.4) Total Bilirubin 0.8 MG/DL (0.2-1.0) Aspartate Amino Transf (AST/SGOT) 33 U/L (15-37) Alanine Aminotransferase (ALT/SGPT) 29 U/L (12-78) Alkaline Phosphatase 98 U/L (46-116) C-Reactive Protein, Quantitative 23.4 mg/dL (0.00-0.90) H Total Protein 6.9 G/DL (6.4-8.2) Albumin 2.8 G/DL (3.4-5.0) L Globulin 4.1 g/dL Albumin/Globulin Ratio 0.7 (1.0-2.7) L Vitamin B12 Level 311 PG/ML (193-986) Folate 10.2 NG/ML (8.6-58.9) Percent CD3 Cells Pending Absolute CD3 Count Pending Percent CD4 Cells Pending Absolute CD4 Count Pending T-Lymphocyte CD4/CD8 Ratio Pending Percent CD8 Cells Pending Absolute CD8 Count Pending Rapid Plasma Reagin Pending Cryptococcus Antigen Pending HIV-1 RNA (PCR) log10 Value Pending HIV-1 RNA Ultraquantitative (PCR) Pending Microbiology Date/Time Source Procedure Growth Status 11/29/17 12:00 Nasopharynx Influenza Types A,B Antigen ([place]) - Final Complete Height (Feet): 5 Height (Inches): 4.00 Weight (Pounds): 163 General Appearance: WD/WN, no apparent distress, alert Cardiovascular: normal rate Respiratory/Chest: normal breath sounds, no respiratory distress Abdominal Exam: normal bowel sounds, non tender, soft Extremities: normal range of motion, non-tender Jasen Brink NP November 30, 2017 11:58
[2017-11-30 12:00] VITALS: BP 108/74
--- NOTE | 2017-11-30 12:20 | Diagnostic Imaging Report ---
Indication: Headache Technique: Contiguous 5 mm thick transaxial imaging of the head obtained in a Siemens Sensation [address] scanner. Soft tissue and bone windows generated. Automatic Exposure Control was utilized. Total Dose length Product (DLP): 1316.[address] Dose Index Volume (CTDIvol): 70.38 mGy Comparison: none Findings: There is mild prominence of the ventricles, basal cisterns, and cerebral sulci consistent with atrophy. Mild, nonspecific, white matter hypoattenuation is noted throughout the brain consistent with chronic small vessel disease. Encephalomalacia in the left basal ganglia region noted consistent with an old infarct. There is no midline shift, edema, acute hemorrhage, mass effect, or abnormal extra-axial fluid collections. Bones and extra osseous soft tissues are unremarkable. Impression: No acute intracranial bleed, mass effect or edema. Old infarct left basal ganglia Mild atrophy of the brain. Nonspecific white matter hypoattenuation probably due to chronic small vessel disease. The CT scanner at [facility] is accredited by the [employer] and the scans are performed using dose optimization techniques as appropriate to a performed exam including Automatic Exposure control.
--- NOTE | 2017-11-30 13:56 | General Surgery Progress Note ---
General Surgery-Progress Note Subjective Symptoms: improved, tolerating diet, voiding well, passing flatus, BM Additional Comments pain improved. no n/v/f/c. tolerating diet. Objective Last 24 Hour Vital Signs Date Time Temp Pulse Resp B/P (MAP) Pulse Ox O2 Delivery O2 Flow Rate FiO2 11/30/17 12:00 99.4 89 20 108/74 92 Room Air 99.4 11/30/17 10:49 98.2 11/30/17 10:06 98.2 11/30/17 09:36 98.2 11/30/17 08:00 98.2 73 18 101/56 95 98.2 11/30/17 04:17 99.4 11/30/17 04:00 99.1 77 20 102/54 94 99.1 11/30/17 02:49 99.4 11/30/17 01:50 99.4 11/30/17 00:00 99.4 81 19 135/81 92 99.4 11/29/17 22:53 98.5 11/29/17 20:00 98.5 83 20 110/60 95 98.5 I&O Intake and Output 11/29/17 11/30/17 19:00 07:00 Intake Total 250 ml 437.5 ml Output Total 1200 ml Balance 250 ml -762.5 ml Intake Oral 200 ml IV Total 50 ml 437.5 ml Output Urine Total 1200 ml # Voids 4 # Bowel Movements 1 Cardiovascular: RSR Respiratory: clear Abdomen: soft, flat, non-tender, present bowel sounds Extremities: no edema, no tenderness Laboratory Tests Test 11/30/17 07:31 White Blood Count 10.1 K/UL (4.8-10.8) Red Blood Count 3.60 M/UL (4.70-6.10) L Hemoglobin 12.3 G/DL (14.2-18.0) L Hematocrit 35.3 % (42.0-52.0) L Mean Corpuscular Volume 98 FL (80-99) Mean Corpuscular Hemoglobin 34.1 PG (27.0-31.0) H Mean Corpuscular Hemoglobin Concent 34.8 G/DL (32.0-36.0) Red Cell Distribution Width 11.1 % (11.6-14.8) L Platelet Count 146 K/UL (150-450) L Mean Platelet Volume 8.1 FL (6.5-10.1) Neutrophils (%) (Auto) 72.2 % (45.0-75.0) Lymphocytes (%) (Auto) 20.5 % (20.0-45.0) Monocytes (%) (Auto) 5.4 % (1.0-10.0) Eosinophils (%) (Auto) 1.6 % (0.0-3.0) Basophils (%) (Auto) 0.3 % (0.0-2.0) Lymphocytes Pending Erythrocyte Sedimentation Rate 101 MM/HR (0-20) H Sodium Level 142 MMOL/L (136-145) Potassium Level 3.3 MMOL/L (3.5-5.1) L Chloride Level 109 MMOL/L (98-107) H Carbon Dioxide Level 24 MMOL/L (21-32) Anion Gap 9 mmol/L (5-15) Blood Urea Nitrogen 9 mg/dL (7-18) Creatinine 1.0 MG/DL (0.55-1.30) Estimat Glomerular Filtration Rate > 60 mL/min (>60) Glucose Level 100 MG/DL (74-106) Calcium Level 8.3 MG/DL (8.5-10.1) L Phosphorus Level 2.2 MG/DL (2.5-4.9) L Magnesium Level 2.1 MG/DL (1.8-2.4) Total Bilirubin 0.8 MG/DL (0.2-1.0) Aspartate Amino Transf (AST/SGOT) 33 U/L (15-37) Alanine Aminotransferase (ALT/SGPT) 29 U/L (12-78) Alkaline Phosphatase 98 U/L (46-116) C-Reactive Protein, Quantitative 23.4 mg/dL (0.00-0.90) H Total Protein 6.9 G/DL (6.4-8.2) Albumin 2.8 G/DL (3.4-5.0) L Globulin 4.1 g/dL Albumin/Globulin Ratio 0.7 (1.0-2.7) L Vitamin B12 Level 311 PG/ML (193-986) Folate 10.2 NG/ML (8.6-58.9) Percent CD3 Cells Pending Absolute CD3 Count Pending Percent CD4 Cells Pending Absolute CD4 Count Pending T-Lymphocyte CD4/CD8 Ratio Pending Percent CD8 Cells Pending Absolute CD8 Count Pending Rapid Plasma Reagin Pending Cryptococcus Antigen Pending HIV-1 RNA (PCR) log10 Value Pending HIV-1 RNA Ultraquantitative (PCR) Pending Plan Problems: (1) Intractable abdominal pain Assessment & Plan: 67M with abdominal pain, mainly right side/flank. exam fairly benign but patient states pain severe. no n/v/f/c. labs okay. otherwise well. possible constipation vs renal stone vs GB? CT and US without significant abnormality. -diet as tolerated -bowel regimen thank you for this consultation. will follow with recs. - Zaheer Cifuentes November 30, 2017 13:56
--- NOTE | 2017-11-30 14:12 | Pulmonology Progress Note ---
Assessment/Plan Problems: (1) Sepsis (2) HIV (human immunodeficiency virus infection) (3) Intractable abdominal pain (4) Severe protein-calorie malnutrition (5) Neuropathy (6) Degenerative disc disease Assessment/Plan afebrile all cultures are negative still c/o pain in legs surgical consult appreciated symptomatic treatment pain management Subjective ROS Limited/Unobtainable: No Constitutional: Reports: no symptoms HEENT: Repors: no symptoms Respiratory: Reports: no symptoms Allergies: Coded Allergies: CODEINE (Unverified Allergy, Unknown, 11/28/17) SULFAMETHOXAZOLE (Unverified Allergy, Unknown, 10/27/17) TRIMETHOPRIM (Unverified Allergy, Unknown, 10/27/17) Objective Last 24 Hour Vital Signs Date Time Temp Pulse Resp B/P (MAP) Pulse Ox O2 Delivery O2 Flow Rate FiO2 11/30/17 12:00 99.4 89 20 108/74 92 Room Air 99.4 11/30/17 10:49 98.2 11/30/17 10:06 98.2 11/30/17 09:36 98.2 11/30/17 08:00 98.2 73 18 101/56 95 98.2 11/30/17 04:17 99.4 11/30/17 04:00 99.1 77 20 102/54 94 99.1 11/30/17 02:49 99.4 11/30/17 01:50 99.4 11/30/17 00:00 99.4 81 19 135/81 92 99.4 11/29/17 22:53 98.5 11/29/17 20:00 98.5 83 20 110/60 95 98.5 Intake and Output 11/29/17 11/30/17 19:00 07:00 Intake Total 250 ml 437.5 ml Output Total 1200 ml Balance 250 ml -762.5 ml Intake Oral 200 ml IV Total 50 ml 437.5 ml Output Urine Total 1200 ml # Voids 4 # Bowel Movements 1 General Appearance: WD/WN HEENT: normocephalic Respiratory/Chest: chest wall non-tender, lungs clear Cardiovascular: normal peripheral pulses, regular rhythm Abdomen: normal bowel sounds, soft, non tender Skin: no rash Microbiology Date/Time Source Procedure Growth Status 11/28/17 23:40 Blood Blood Culture - Preliminary NO GROWTH AFTER 24 HOURS Resulted 11/28/17 23:30 Blood Blood Culture - Preliminary NO GROWTH AFTER 24 HOURS Resulted 11/29/17 12:00 Nasopharynx Influenza Types A,B Antigen ([place]) - Final Complete 11/28/17 17:30 Stool Clostridium difficile Toxin Assay - Final Complete Laboratory Tests 11/30/17 07:31: White Blood Count 10.1, Red Blood Count 3.60L, Hemoglobin 12.3L, Hematocrit 35.3L, Mean Corpuscular Volume 98, Mean Corpuscular Hemoglobin 34.1H, Mean Corpuscular Hemoglobin Concent 34.8, Red Cell Distribution Width 11.1L, Platelet Count 146L, Mean Platelet Volume 8.1, Neutrophils (%) (Auto) 72.2, Lymphocytes (%) (Auto) 20.5, Monocytes (%) (Auto) 5.4, Eosinophils (%) (Auto) 1.6, Basophils (%) (Auto) 0.3, Lymphocytes [Pending], Erythrocyte Sedimentation Rate 101H, Sodium Level 142, Potassium Level 3.3L, Chloride Level 109H, Carbon Dioxide Level 24, Anion Gap 9, Blood Urea Nitrogen 9, Creatinine 1.0, Estimat Glomerular Filtration Rate > 60, Glucose Level 100, Calcium Level 8.3L, Phosphorus Level 2.2L, Magnesium Level 2.1, Total Bilirubin 0.8, Aspartate Amino Transf (AST/SGOT) 33, Alanine Aminotransferase (ALT/SGPT) 29, Alkaline Phosphatase 98, C-Reactive Protein, Quantitative 23.4H, Total Protein 6.9, Albumin 2.8L, Globulin 4.1, Albumin/Globulin Ratio 0.7L, Vitamin B12 Level 311, Folate 10.2, Percent CD3 Cells [Pending], Absolute CD3 Count [Pending], Percent CD4 Cells [Pending], Absolute CD4 Count [Pending], T-Lymphocyte CD4/CD8 Ratio [ Pending], Percent CD8 Cells [Pending], Absolute CD8 Count [Pending], Rapid Plasma Reagin [Pending], Cryptococcus Antigen [Pending], HIV-1 RNA (PCR) log10 Value [Pending], HIV-1 RNA Ultraquantitative (PCR) [Pending] Current Medications Medications (Trade) Dose Ordered Sig/Roman Route PRN Reason Start Time Stop Time Status Last Admin Dose Admin Acetaminophen (Tylenol) 650 mg Q4H PRN ORAL fever 11/28/17 13:30 12/28/17 13:29 11/29/17 15:48 Carisoprodol (Soma) 350 mg Q8H PRN ORAL muscle spasms 11/29/17 17:00 12/29/17 16:59 11/30/17 10:49 Clotrimazole (Lotrimin) 1 applic BID TOPIC 11/29/17 09:00 12/29/17 08:59 11/30/17 09:36 Darunavir (Prezista) 600 mg TWICE A DAY ORAL 11/29/17 18:00 12/29/17 17:59 11/30/17 09:35 Dextrose/Sodium Chloride 1,000 ml @ 50 mls/hr Q20H IV 11/28/17 14:30 12/28/17 14:29 11/30/17 05:28 Dicyclomine HCl (Bentyl) 10 mg QIDPRN PRN ORAL Abdominal cramps 11/29/17 14:45 12/29/17 14:44 Docusate Sodium (Colace) 100 mg TWICE A DAY ORAL 11/30/17 09:00 12/30/17 08:59 11/30/17 09:35 Entecavir (Baraclude) 1 mg QHS ORAL 11/29/17 21:00 12/29/17 20:59 11/29/17 22:53 Etravirine (Intelence) 200 mg Q12HR ORAL 11/29/17 21:00 12/29/17 20:59 11/30/17 09:35 Heparin Sodium (Porcine) (Heparin 5000 units/ml) 5,000 units EVERY 12 HOURS SUBQ 11/28/17 21:00 12/28/17 20:59 11/29/17 23:02 Morphine Sulfate (Morphine Sulfate) 4 mg Q4H PRN IVP For Pain 11/28/17 19:15 12/05/17 19:14 11/30/17 09:36 Ondansetron HCl (Zofran) 4 mg Q6H PRN IVP Nausea & Vomiting 11/28/17 13:30 12/28/17 13:29 11/29/17 03:56 Pantoprazole (Protonix) 40 mg DAILY ORAL 11/30/17 09:00 12/30/17 08:59 11/30/17 09:35 Piperacillin Sod/ Tazobactam Sod 3.375 gm/Sodium Chloride 110 ml @ 27.5 mls/hr EVERY 8 HOURS IVPB 11/28/17 23:45 12/03/17 23:44 11/30/17 05:28 Potassium Phosphate 30 mm/ Sodium Chloride 285 ml @ 47.5 mls/hr ONCE IV 11/30/17 10:30 12/30/17 10:29 11/30/17 11:36 Raltegravir (Isentress) 400 mg Q12HR ORAL 11/29/17 21:00 12/29/17 20:59 11/30/17 09:34 Ritonavir (Norvir) 100 mg TWICE A DAY ORAL 11/29/17 18:00 12/29/17 17:59 11/30/17 09:34 Valacyclovir HCl (Valtrex) 1,000 mg DAILY ORAL 11/30/17 09:00 12/30/17 08:59 11/30/17 09:35 Vancomycin HCl (Vanco rx to dose) 1 ea DAILY PRN MISC Per rx protocol 11/29/17 15:45 12/29/17 15:44 Vancomycin HCl 500 mg/Dextrose 110 ml @ 110 mls/hr Q24H IVPB 11/30/17 18:00 12/05/17 17:59 Vitamin A/Vitamin D (A & D Oint) 1 applic EVERY 12 HOURS TOPIC 11/28/17 21:00 12/28/17 20:59 11/30/17 09:36 Zolpidem Tartrate (Ambien) 5 mg HSPRN PRN ORAL Insomnia 11/28/17 13:30 12/05/17 13:29 Oliverio Rm MD November 30, 2017 14:12
[2017-11-30 16:30] VITALS: BP 108/76
--- NOTE | 2017-11-30 17:19 | Infectious Diseases Prog Note ---
Assessment/Plan Assessment/Plan Abx: Zosyn 11/28- Assessment: Sepsis- ?source- ?viral syndrome given Fever, CLAIRE, abd pain (RLQ) and diarrhea- neg Influenza, CT abd/p and CT head with no significant findings. No cholecystitis on Abd US. +Cellulitis, r/o bacteremia. ?RLQ due to shingles- no rash at present -CXR: Mild basal atelectasis -Abd US Mild splenomegaly. Left renal cyst Cortical atrophy of both kidneys. Gallbladder sludge -CT abd/p wo: Multitude of incidental chronic findings as described above. No acute abnormalities appreciated. Scarring at the lung bases with traction bronchiectasis. Suspected gallstones versus sludge in the gallbladder lumen. Another hypodensity adjacent to the gallbladder noted in the liver. -influenza sc neg -lipase normal Headache- no meningismus noted -CT head wo: No acute intracranial bleed, mass effect or edema. 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 Mild atrophy of the brain. Nonspecific white matter hypoattenuation probably due to chronic small vessel disease. B/l leg cellulitis, mild (on baseline chronic edema) -v. duplex, no DVT b/l DIarrhea Cdiff neg stool cx, o+p p Fever, improving -no leukocytosis -u/a neg -Bcx NTD HARVINDER, improving HIV, last CD4 400, VL UD per patient - (last saw HIV doc ~ 3 weeks ago) Recent E.coli UTi 10/2017, sp Rx -E.coli mehta S HTN CVA/TIA 2004 Plan: -Continue empiric Zosyn #3 and IV Vancomcyin #2 for now pending cultuers -monitor for any rash resembling shingles -f/u cx -Monitor CBC/BMP, temperatures -f/u HIV VL, CD4, CrAg -aspiration precautions -GI, Sx f/u Thank you for this consultation. Will continue to follow along with you. Discussed with RN. Subjective Allergies: Coded Allergies: CODEINE (Unverified Allergy, Unknown, 11/28/17) SULFAMETHOXAZOLE (Unverified Allergy, Unknown, 10/27/17) TRIMETHOPRIM (Unverified Allergy, Unknown, 10/27/17) Subjective afebrile in 36hrs abd pain resolved bcx NTD +diarrhea Objective Vital Signs Last 24 Hour Vital Signs Date Time Temp Pulse Resp B/P (MAP) Pulse Ox O2 Delivery O2 Flow Rate FiO2 5/30/18 12:00 99.4 89 20 108/74 92 Room Air 99.4 11/30/17 10:49 98.2 11/30/17 10:06 98.2 11/30/17 09:36 98.2 11/30/17 08:00 98.2 73 18 101/56 95 98.2 11/30/17 04:17 99.4 11/30/17 04:00 99.1 77 20 102/54 94 99.1 11/30/17 02:49 99.4 11/30/17 01:50 99.4 11/30/17 00:00 99.4 81 19 135/81 92 99.4 11/29/17 22:53 98.5 11/29/17 20:00 98.5 83 20 110/60 95 98.5 Height (Feet): 5 Height (Inches): 4.00 Weight (Pounds): 163 Objective General Appearance: no apparent distress, alert HEENT: normocephalic, atraumatic, PERRL, normal pharynx Neck: full range of motion, supple/symm/no masses Respiratory: chest non-tender, lungs clear, normal breath sounds, speaking full sentences Cardiovascular regular rate, rhythm, no edema Gastrointestinal: normal bowel sounds, soft, non-distended, no guarding, no rebound, tenderness - RLQ Genitourinary: normal inspection, no CVA tenderness Musculoskeletal: back normal, gait/station normal, normal range of motion, non- tender Neurologic: alert, oriented x3, responsive, motor strength/tone normal, sensory intact, speech normal Skin: b/l leg swelling, erythema, warmth and TTP on distal leg aspect R>L Microbiology Date/Time Source Procedure Growth Status 11/28/17 23:40 Blood Blood Culture - Preliminary NO GROWTH AFTER 24 HOURS Resulted 11/28/17 23:30 Blood Blood Culture - Preliminary NO GROWTH AFTER 24 HOURS Resulted 11/29/17 12:00 Nasopharynx Influenza Types A,B Antigen ([place]) - Final Complete 11/28/17 17:30 Stool Clostridium difficile Toxin Assay - Final Complete Laboratory Tests Test 11/30/17 07:31 White Blood Count 10.1 K/UL (4.8-10.8) Red Blood Count 3.60 M/UL (4.70-6.10) L Hemoglobin 12.3 G/DL (14.2-18.0) L Hematocrit 35.3 % (42.0-52.0) L Mean Corpuscular Volume 98 FL (80-99) Mean Corpuscular Hemoglobin 34.1 PG (27.0-31.0) H Mean Corpuscular Hemoglobin Concent 34.8 G/DL (32.0-36.0) Red Cell Distribution Width 11.1 % (11.6-14.8) L Platelet Count 146 K/UL (150-450) L Mean Platelet Volume 8.1 FL (6.5-10.1) Neutrophils (%) (Auto) 72.2 % (45.0-75.0) Lymphocytes (%) (Auto) 20.5 % (20.0-45.0) Monocytes (%) (Auto) 5.4 % (1.0-10.0) Eosinophils (%) (Auto) 1.6 % (0.0-3.0) Basophils (%) (Auto) 0.3 % (0.0-2.0) Lymphocytes Pending Erythrocyte Sedimentation Rate 101 MM/HR (0-20) H Sodium Level 142 MMOL/L (136-145) Potassium Level 3.3 MMOL/L (3.5-5.1) L Chloride Level 109 MMOL/L (98-107) H Carbon Dioxide Level 24 MMOL/L (21-32) Anion Gap 9 mmol/L (5-15) Blood Urea Nitrogen 9 mg/dL (7-18) Creatinine 1.0 MG/DL (0.55-1.30) Estimat Glomerular Filtration Rate > 60 mL/min (>60) Glucose Level 100 MG/DL (74-106) Calcium Level 8.3 MG/DL (8.5-10.1) L Phosphorus Level 2.2 MG/DL (2.5-4.9) L Magnesium Level 2.1 MG/DL (1.8-2.4) Total Bilirubin 0.8 MG/DL (0.2-1.0) Aspartate Amino Transf (AST/SGOT) 33 U/L (15-37) Alanine Aminotransferase (ALT/SGPT) 29 U/L (12-78) Alkaline Phosphatase 98 U/L (46-116) C-Reactive Protein, Quantitative 23.4 mg/dL (0.00-0.90) H Total Protein 6.9 G/DL (6.4-8.2) Albumin 2.8 G/DL (3.4-5.0) L Globulin 4.1 g/dL Albumin/Globulin Ratio 0.7 (1.0-2.7) L Vitamin B12 Level 311 PG/ML (193-986) Folate 10.2 NG/ML (8.6-58.9) Percent CD3 Cells Pending Absolute CD3 Count Pending Percent CD4 Cells Pending Absolute CD4 Count Pending T-Lymphocyte CD4/CD8 Ratio Pending Percent CD8 Cells Pending Absolute CD8 Count Pending Rapid Plasma Reagin Pending Cryptococcus Antigen Pending HIV-1 RNA (PCR) log10 Value Pending HIV-1 RNA Ultraquantitative (PCR) Pending Current Medications Medications (Trade) Dose Ordered Sig/Roman Route PRN Reason Start Time Stop Time Status Last Admin Dose Admin Acetaminophen (Tylenol) 650 mg Q4H PRN ORAL fever 11/28/17 13:30 12/28/17 13:29 11/29/17 15:48 Carisoprodol (Soma) 350 mg Q8H PRN ORAL muscle spasms 11/29/17 17:00 12/29/17 16:59 11/30/17 10:49 Clotrimazole (Lotrimin) 1 applic BID TOPIC 11/29/17 09:00 12/29/17 08:59 11/30/17 09:36 Darunavir (Prezista) 600 mg TWICE A DAY ORAL 11/29/17 18:00 12/29/17 17:59 11/30/17 09:35 Dextrose/Sodium Chloride 1,000 ml @ 50 mls/hr Q20H IV 11/28/17 14:30 12/28/17 14:29 11/30/17 05:28 Dicyclomine HCl (Bentyl) 10 mg QIDPRN PRN ORAL Abdominal cramps 11/29/17 14:45 12/29/17 14:44 Docusate Sodium (Colace) 100 mg TWICE A DAY ORAL 11/30/17 09:00 12/30/17 08:59 11/30/17 09:35 Entecavir (Baraclude) 1 mg QHS ORAL 11/29/17 21:00 12/29/17 20:59 11/29/17 22:53 Etravirine (Intelence) 200 mg Q12HR ORAL 11/29/17 21:00 12/29/17 20:59 11/30/17 09:35 Heparin Sodium (Porcine) (Heparin 5000 units/ml) 5,000 units EVERY 12 HOURS SUBQ 11/28/17 21:00 12/28/17 20:59 11/29/17 23:02 Morphine Sulfate (Morphine Sulfate) 4 mg Q4H PRN IVP For Pain 11/28/17 19:15 12/05/17 19:14 11/30/17 09:36 Ondansetron HCl (Zofran) 4 mg Q6H PRN IVP Nausea & Vomiting 11/28/17 13:30 12/28/17 13:29 11/29/17 03:56 Pantoprazole (Protonix) 40 mg DAILY ORAL 11/30/17 09:00 12/30/17 08:59 11/30/17 09:35 Piperacillin Sod/ Tazobactam Sod 3.375 gm/Sodium Chloride 110 ml @ 27.5 mls/hr EVERY 8 HOURS IVPB 11/28/17 23:45 12/03/17 23:44 11/30/17 15:10 Potassium Phosphate 30 mm/ Sodium Chloride 285 ml @ 47.5 mls/hr ONCE IV 11/30/17 10:30 12/30/17 10:29 11/30/17 11:36 Raltegravir (Isentress) 400 mg Q12HR ORAL 11/29/17 21:00 12/29/17 20:59 11/30/17 09:34 Ritonavir (Norvir) 100 mg TWICE A DAY ORAL 11/29/17 18:00 12/29/17 17:59 11/30/17 09:34 Valacyclovir HCl (Valtrex) 1,000 mg DAILY ORAL 11/30/17 09:00 12/30/17 08:59 11/30/17 09:35 Vancomycin HCl (Vanco rx to dose) 1 ea DAILY PRN MISC Per rx protocol 11/29/17 15:45 12/29/17 15:44 Vancomycin HCl 500 mg/Dextrose 110 ml @ 110 mls/hr Q24H IVPB 11/30/17 18:00 12/05/17 17:59 Vitamin A/Vitamin D (A & D Oint) 1 applic EVERY 12 HOURS TOPIC 11/28/17 21:00 12/28/17 20:59 11/30/17 09:36 Zolpidem Tartrate (Ambien) 5 mg HSPRN PRN ORAL Insomnia 11/28/17 13:30 12/05/17 13:29 Miranda Cordero M.D. November 30, 2017 17:19
[2017-11-30] MEDS: Vancomycin 500mg/D5W 110ml IVPB SCH ×2 (18:52)
[2017-11-30 20:00] VITALS: BP 117/68
[2017-11-30] MEDS ORDERED: D5 1/2NS 1000ml IV ONE (20:02)
[2017-11-30] MEDS ORDERED: NS 275ml ONE (20:02)
--- NOTE | 2017-11-30 23:20 | General Progress Note ---
Assessment/Plan Status: stable, progressing Assessment/Plan MDD Anxiety Insomnia Rmeron 15mg qhs provided ro/st Subjective Date patient seen: November 30, 2017 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: Reports: anxiety, depressed, emotional problems Allergies: Coded Allergies: CODEINE (Unverified Allergy, Unknown, 11/28/17) SULFAMETHOXAZOLE (Unverified Allergy, Unknown, 10/27/17) TRIMETHOPRIM (Unverified Allergy, Unknown, 10/27/17) Objective Last 24 Hour Vital Signs Date Time Temp Pulse Resp B/P (MAP) Pulse Ox O2 Delivery O2 Flow Rate FiO2 11/30/17 21:11 98.3 11/30/17 20:41 98.3 11/30/17 20:00 99.1 103 19 117/68 93 Room Air 99.1 11/30/17 18:04 80 11/30/17 16:30 98.3 127 20 108/76 97 Room Air 98.3 11/30/17 12:00 99.4 89 20 108/74 92 Room Air 99.4 11/30/17 10:49 98.2 11/30/17 09:36 98.2 11/30/17 08:00 98.2 73 18 101/56 95 98.2 11/30/17 04:17 99.4 11/30/17 04:00 99.1 77 20 102/54 94 99.1 11/30/17 02:49 99.4 11/30/17 01:50 99.4 11/30/17 00:00 99.4 81 19 135/81 92 99.4 Intake and Output 11/29/17 11/30/17 19:00 07:00 Intake Total 250 ml 437.5 ml Output Total 1200 ml Balance 250 ml -762.5 ml Intake Oral 200 ml IV Total 50 ml 437.5 ml Output Urine Total 1200 ml # Voids 4 # Bowel Movements 1 Laboratory Tests 11/30/17 07:31: White Blood Count 10.1, Red Blood Count 3.60L, Hemoglobin 12.3L, Hematocrit 35.3L, Mean Corpuscular Volume 98, Mean Corpuscular Hemoglobin 34.1H, Mean Corpuscular Hemoglobin Concent 34.8, Red Cell Distribution Width 11.1L, Platelet Count 146L, Mean Platelet Volume 8.1, Neutrophils (%) (Auto) 72.2, Lymphocytes (%) (Auto) 20.5, Monocytes (%) (Auto) 5.4, Eosinophils (%) (Auto) 1.6, Basophils (%) (Auto) 0.3, Lymphocytes [Pending], Erythrocyte Sedimentation Rate 101H, Sodium Level 142, Potassium Level 3.3L, Chloride Level 109H, Carbon Dioxide Level 24, Anion Gap 9, Blood Urea Nitrogen 9, Creatinine 1.0, Estimat Glomerular Filtration Rate > 60, Glucose Level 100, Calcium Level 8.3L, Phosphorus Level 2.2L, Magnesium Level 2.1, Total Bilirubin 0.8, Aspartate Amino Transf (AST/SGOT) 33, Alanine Aminotransferase (ALT/SGPT) 29, Alkaline Phosphatase 98, C-Reactive Protein, Quantitative 23.4H, Total Protein 6.9, Albumin 2.8L, Globulin 4.1, Albumin/Globulin Ratio 0.7L, Vitamin B12 Level 311, Folate 10.2, Percent CD3 Cells [Pending], Absolute CD3 Count [Pending], Percent CD4 Cells [Pending], Absolute CD4 Count [Pending], T-Lymphocyte CD4/CD8 Ratio [ Pending], Percent CD8 Cells [Pending], Absolute CD8 Count [Pending], Rapid Plasma Reagin [Pending], Cryptococcus Antigen [Pending], HIV-1 RNA (PCR) log10 Value [Pending], HIV-1 RNA Ultraquantitative (PCR) [Pending] Height (Feet): 5 Height (Inches): 4.00 Weight (Pounds): 163 Star Vences M.D. November 30, 2017 23:20
[2017-12-01] VITALS: BP 130/72
[2017-12-01] MEDS: Morphine Sulfate 4mg/ml Inj IVP PRN ×3 (01:35→21:36)
[2017-12-01 04:00] VITALS: BP 107/59
[2017-12-01] MEDS: D5 1/2NS 1,000 ML IV SCH (04:58)
[2017-12-01] MEDS: Zoysn 3.37gm in NS 100ML IVPB SCH ×2 (05:00→14:04)
[2017-12-01 08:00] VITALS: BP 120/72
[2017-12-01 08:16] LABS: ANION GAP 11 mmol/L (5-15); BLOOD UREA NITROGEN 6 mg/dL (7-18); CALCIUM 8.6 MG/DL (8.5-10.1); CARBON DIOXIDE 23 MMOL/L (21-32); CHLORIDE 110 MMOL/L (98-107); PHOSPHORUS 2.3 MG/DL (2.5-4.9); POTASSIUM 3.3 MMOL/L (3.5-5.1); SODIUM 144 MMOL/L (136-145)
[2017-12-01 08:19] LABS: BASOPHILS % (AUTO) 0.5 % (0.0-2.0); EOSINOPHILS % (AUTO) 3.8 % (0.0-3.0); HEMATOCRIT 35.4 % (42.0-52.0); HEMOGLOBIN 12.6 G/DL (14.2-18.0); LYMPHOCYTES % (AUTO) 26.4 % (20.0-45.0); MEAN CORPUSCULAR VOLUME 97 FL (80-99); MONOCYTES % (AUTO) 6.1 % (1.0-10.0); NEUTROPHILS % (AUTO) 63.3 % (45.0-75.0); PLATELET COUNT 168 K/UL (150-450); RED BLOOD COUNT 3.64 M/UL (4.70-6.10); WHITE BLOOD COUNT 6.3 K/UL (4.8-10.8)
[2017-12-01] MEDS: Docusate 100mg cap ORAL SCH ×2 (08:31→17:46)
[2017-12-01] MEDS: Isentress 400mg tab ORAL SCH (08:31)
[2017-12-01] MEDS: Etravirine 100mg tab ORAL SCH (08:32)
[2017-12-01] MEDS: valACYclovir HCL 500mg tab ORAL SCH (08:32)
[2017-12-01] MEDS: Darunavir 600mg tab ORAL SCH ×2 (08:32→17:44)
[2017-12-01] MEDS: Ritonavir 100mg tab ORAL SCH ×2 (08:47→17:44)
--- NOTE | 2017-12-01 08:52 | General Progress Note ---
Assessment/Plan Assessment/Plan (1) HIV (2) Peripheral Neuropathy We will continue Morphine as needed. D/w Dr. Juarez and he concurred. Subjective Date patient seen: December 01, 2017 Time patient seen: 07:00 - am Constitutional: Reports: weakness HEENT: Reports: no symptoms Cardiovascular: Reports: no symptoms Respiratory: Reports: no symptoms Gastrointestinal/Abdominal: Reports: no symptoms Genitourinary: Reports: no symptoms 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: Reports: no symptoms, numbness, weakness Endocrine: Reports: no symptoms Hematologic/Lymphatic: Reports: no symptoms Allergies: Coded Allergies: CODEINE (Unverified Allergy, Unknown, 11/28/17) SULFAMETHOXAZOLE (Unverified Allergy, Unknown, 10/27/17) TRIMETHOPRIM (Unverified Allergy, Unknown, 10/27/17) Subjective Patient is in bed and reports that his pain has been reduced with the addition of the Neurontin now at a 4/10. Has gotten 4 doses of the Morphine in the last 24hrs. Objective Last 24 Hour Vital Signs Date Time Temp Pulse Resp B/P (MAP) Pulse Ox O2 Delivery O2 Flow Rate FiO2 12/01/17 08:36 98.5 12/01/17 04:00 98.5 83 19 107/59 93 Room Air 98.5 12/01/17 02:05 98.5 12/01/17 01:35 98.5 12/01/17 00:00 98.5 93 19 130/72 94 Room Air 98.5 11/30/17 20:41 98.3 11/30/17 20:00 99.1 103 19 117/68 93 Room Air 99.1 11/30/17 18:04 80 11/30/17 16:30 98.3 127 20 108/76 97 Room Air 98.3 11/30/17 12:00 99.4 89 20 108/74 92 Room Air 99.4 11/30/17 10:49 98.2 11/30/17 09:36 98.2 Intake and Output 11/30/17 12/01/17 19:00 07:00 Intake Total 1417.5 ml 1092.5 ml Output Total 1100 ml 1600 ml Balance 317.5 ml -507.5 ml Intake Oral 800 ml 300 ml IV Total 617.5 ml 792.5 ml Output Urine Total 1100 ml 1600 ml # Bowel Movements 1 Laboratory Tests 12/01/17 07:30: White Blood Count 6.3, Red Blood Count 3.64L, Hemoglobin 12.6L, Hematocrit 35.4L , Mean Corpuscular Volume 97, Mean Corpuscular Hemoglobin 34.6H, Mean Corpuscular Hemoglobin Concent 35.6, Red Cell Distribution Width 11.0L, Platelet Count 168, Mean Platelet Volume 7.2, Neutrophils (%) (Auto) 63.3, Lymphocytes (%) (Auto) 26.4, Monocytes (%) (Auto) 6.1, Eosinophils (%) (Auto) 3.8H, Basophils (%) (Auto) 0.5, Sodium Level 144, Potassium Level 3.3L, Chloride Level 110H, Carbon Dioxide Level 23, Anion Gap 11, Blood Urea Nitrogen 6L, Creatinine 1.0, Estimat Glomerular Filtration Rate > 60, Glucose Level 99, Calcium Level 8.6, Phosphorus Level 2.3L Height (Feet): 5 Height (Inches): 4.00 Weight (Pounds): 163 General Appearance: no apparent distress, alert EENT: PERRL/EOMI, normal ENT inspection Neck: non-tender, normal alignment, supple Cardiovascular: normal rate, regular rhythm Respiratory/Chest: lungs clear, normal breath sounds Abdomen: non tender, soft Extremities: non-tender Edema: trace edema Neurologic: alert, oriented x 3 Skin: warm/dry Jonathan Ayers December 01, 2017 08:52
[2017-12-01] MEDS ORDERED: Heparin 5000 units/ml inj SUBQ SCH (09:00)
[2017-12-01] MEDS: Vitamin A&D Oint 2oz Tube TOPIC SCH (10:27)
[2017-12-01] MEDS ORDERED: Potassium Phosphate 30 MM in NS 275 ML IV ONE (11:00)
--- NOTE | 2017-12-01 11:06 | GI Progress Note ---
Assessment/Plan Problems: (1) Severe protein-calorie malnutrition ICD Codes: E43 - Unspecified severe protein-calorie malnutrition SNOMED: 811701552 (2) Intractable abdominal pain ICD Codes: R10.9 - Unspecified abdominal pain SNOMED: 74273188, 203025055 (3) Neuropathy ICD Codes: G62.9 - Polyneuropathy, unspecified SNOMED: 755591311 (4) Abdominal pain ICD Codes: R10.9 - Unspecified abdominal pain SNOMED: 05220363 Qualifiers: Qualified Codes: R10.11 - Right upper quadrant pain Status: doing well, stable Status Narrative Discussed with Dr. Germain. Assessment/Plan hyperchromic anemia CT AP reviewed >> unremarkable abdominal US reviewed >> CBD dilation 8mm OB stool negative okay to advance diet pain mgmt Bentyl prn abdominal spasms monitor H&H, prn transfusions bowel regime ppi fu labs outpatient GI procedures given history of rectal cancer The patient was seen and examined at bedside and all new and available data was reviewed in the patients chart. I agree with the above findings, impression and plan. (Patient seen earlier today. Signature stamp does not reflect patient encounter time.). - Dejan Germain MD Subjective Gastrointestinal/Abdominal: Reports: abdominal pain - still present, but improved Objective Last 24 Hour Vital Signs Date Time Temp Pulse Resp B/P (MAP) Pulse Ox O2 Delivery O2 Flow Rate FiO2 12/01/17 08:36 98.5 12/01/17 08:00 98.2 96 20 120/72 95 Room Air 98.2 12/01/17 04:00 98.5 83 19 107/59 93 Room Air 98.5 12/01/17 02:05 98.5 12/01/17 01:35 98.5 12/01/17 00:00 98.5 93 19 130/72 94 Room Air 98.5 11/30/17 20:41 98.3 11/30/17 20:00 99.1 103 19 117/68 93 Room Air 99.1 11/30/17 18:04 80 11/30/17 16:30 98.3 127 20 108/76 97 Room Air 98.3 11/30/17 12:00 99.4 89 20 108/74 92 Room Air 99.4 Intake and Output 11/30/17 12/01/17 19:00 07:00 Intake Total 1417.5 ml 1092.5 ml Output Total 1100 ml 1600 ml Balance 317.5 ml -507.5 ml Intake Oral 800 ml 300 ml IV Total 617.5 ml 792.5 ml Output Urine Total 1100 ml 1600 ml # Bowel Movements 1 Laboratory Tests Test 12/01/17 07:30 White Blood Count 6.3 K/UL (4.8-10.8) Red Blood Count 3.64 M/UL (4.70-6.10) L Hemoglobin 12.6 G/DL (14.2-18.0) L Hematocrit 35.4 % (42.0-52.0) L Mean Corpuscular Volume 97 FL (80-99) Mean Corpuscular Hemoglobin 34.6 PG (27.0-31.0) H Mean Corpuscular Hemoglobin Concent 35.6 G/DL (32.0-36.0) Red Cell Distribution Width 11.0 % (11.6-14.8) L Platelet Count 168 K/UL (150-450) Mean Platelet Volume 7.2 FL (6.5-10.1) Neutrophils (%) (Auto) 63.3 % (45.0-75.0) Lymphocytes (%) (Auto) 26.4 % (20.0-45.0) Monocytes (%) (Auto) 6.1 % (1.0-10.0) Eosinophils (%) (Auto) 3.8 % (0.0-3.0) H Basophils (%) (Auto) 0.5 % (0.0-2.0) Sodium Level 144 MMOL/L (136-145) Potassium Level 3.3 MMOL/L (3.5-5.1) L Chloride Level 110 MMOL/L (98-107) H Carbon Dioxide Level 23 MMOL/L (21-32) Anion Gap 11 mmol/L (5-15) Blood Urea Nitrogen 6 mg/dL (7-18) L Creatinine 1.0 MG/DL (0.55-1.30) Estimat Glomerular Filtration Rate > 60 mL/min (>60) Glucose Level 99 MG/DL (74-106) Calcium Level 8.6 MG/DL (8.5-10.1) Phosphorus Level 2.3 MG/DL (2.5-4.9) L Microbiology Date/Time Source Procedure Growth Status 11/30/17 15:00 Stool Stool Culture - Preliminary NORMAL FECAL LEEANN. Resulted Height (Feet): 5 Height (Inches): 4.00 Weight (Pounds): 163 General Appearance: WD/WN, no apparent distress, alert Cardiovascular: normal rate Respiratory/Chest: normal breath sounds, no respiratory distress Abdominal Exam: normal bowel sounds, non tender, soft Extremities: non-tender Jasen Brink NP December 01, 2017 11:06
--- NOTE | 2017-12-01 11:17 | Consultation ---
DATE OF CONSULTATION: 11/30/2017 PAIN MANAGEMENT CONSULTATION CONSULTING PHYSICIAN: Karen Juarez M.D. REFERRING PHYSICIAN: Oliverio Rm M.D. PHYSICIAN COLOR COATER: SHUN Manrique. CHIEF COMPLAINT: Bilateral lower extremity pain. HISTORY OF PRESENT ILLNESS: This is a 67-year-old male, who has been seen on the Med/Surg floor of [facility] for initial comprehensive pain management consultation. The patient was admitted under the care of Dr. Rm due to abdominal pain and has been seen by administration physician and a surgeon. At this time, the patient is comfortable. No complaint of abdominal pain at this time, however, he is complaining of bilateral lower extremity pain. The patient reports he has history of HIV and on antiviral medications causing burning pain in his feet, has been taking Neurontin as an outpatient, however, he is not on that medication. At this time, he is on morphine 4 mg IV every 4 hours as needed for severe pain. We were consulted so that the patient would have adequate pain control while here in the hospital. PAST MEDICAL HISTORY: Acute renal failure, degenerative disk disease, HIV, cellulitis, neuropathy, and intractable abdominal pain. SOCIAL HISTORY: Denies smoking tobacco, drinking alcohol, and IV drug abuse. ALLERGIES: Codeine, sulfa, trimethoprim. REVIEW OF SYSTEMS: Denies rash, fever, chills, sweating, dizziness, drowsiness, blurred vision, sore throat, change in weight. No shortness of breath or chest pain. No nausea, vomiting, or blood in the stool or urine. No bowel or bladder incontinence. No dysuria. He is complaining of bilateral lower extremity pain, right greater than left. PHYSICAL EXAMINATION: GENERAL: Alert, awake, and oriented x3. VITAL SIGNS: Blood pressure 108/74, respiratory rate 20, temperature is 99.4 degrees Fahrenheit. HEENT: PERRLA. NECK: Range of motion is full in all directions. No tenderness to paracervical muscles. No adenopathy. LUNGS: Decreased breath sounds bilaterally. HEART: Regular. ABDOMEN: Benign. BACK: Range of motion is decreased in flexion and extension. EXTREMITIES: Upper extremity range of motion is full in all directions. Motor is intact. No cyanosis. No clubbing. No edema. Sensory is intact. Reflexes are not obtainable. No adenopathy. Lower extremity range of motion is decreased due to the patient's condition. No cyanosis. No clubbing. Sensory is intact. Reflexes are not obtainable. No adenopathy. ASSESSMENT AND PLAN: This is a 67-year-old male with HIV, peripheral neuropathy. The patient will be continued on morphine as needed and will be started on Neurontin 300 mg tablet 3 times a day. The patient was discussed with Dr. Juarez and Dr. Juarez concurred. We will follow the patient. Thank you very much for the courtesy of this consultation. Karen Juarez M.D. SHUN Manrique DR: Sarah JOB#: [id number] CC: RENEE
--- NOTE | 2017-12-01 14:16 | Pulmonology Progress Note ---
Assessment/Plan Problems: (1) Sepsis (2) HIV (human immunodeficiency virus infection) (3) Intractable abdominal pain (4) Severe protein-calorie malnutrition (5) Neuropathy (6) Degenerative disc disease Assessment/Plan afebrile all cultures are negative RLQ abdominal pain is less surgical consult appreciated symptomatic treatment dc to assisted living pain management Subjective ROS Limited/Unobtainable: No Constitutional: Reports: no symptoms HEENT: Repors: no symptoms Respiratory: Reports: no symptoms Allergies: Coded Allergies: CODEINE (Unverified Allergy, Unknown, 11/28/17) SULFAMETHOXAZOLE (Unverified Allergy, Unknown, 10/27/17) TRIMETHOPRIM (Unverified Allergy, Unknown, 10/27/17) Objective Last 24 Hour Vital Signs Date Time Temp Pulse Resp B/P (MAP) Pulse Ox O2 Delivery O2 Flow Rate FiO2 12/01/17 11:46 98.5 12/01/17 11:16 98.5 12/01/17 08:36 98.5 12/01/17 08:00 98.2 96 20 120/72 95 Room Air 98.2 12/01/17 04:00 98.5 83 19 107/59 93 Room Air 98.5 12/01/17 01:35 98.5 12/01/17 00:00 98.5 93 19 130/72 94 Room Air 98.5 11/30/17 20:41 98.3 11/30/17 20:00 99.1 103 19 117/68 93 Room Air 99.1 11/30/17 18:04 80 11/30/17 16:30 98.3 127 20 108/76 97 Room Air 98.3 Intake and Output 11/30/17 12/01/17 19:00 07:00 Intake Total 1417.5 ml 1092.5 ml Output Total 1100 ml 1600 ml Balance 317.5 ml -507.5 ml Intake Oral 800 ml 300 ml IV Total 617.5 ml 792.5 ml Output Urine Total 1100 ml 1600 ml # Bowel Movements 1 General Appearance: WD/WN HEENT: normocephalic, atraumatic Respiratory/Chest: chest wall non-tender, normal breath sounds Cardiovascular: normal peripheral pulses, regular rhythm Abdomen: normal bowel sounds, soft, non tender Extremities: no cyanosis, no clubbing Microbiology Date/Time Source Procedure Growth Status 11/28/17 23:40 Blood Blood Culture - Preliminary NO GROWTH AFTER 48 HOURS Resulted 11/28/17 23:30 Blood Blood Culture - Preliminary NO GROWTH AFTER 48 HOURS Resulted 11/29/17 12:00 Nasopharynx Influenza Types A,B Antigen ([place]) - Final Complete 11/30/17 15:00 Stool Stool Culture - Preliminary NORMAL FECAL LEEANN. Resulted 11/28/17 17:30 Stool Clostridium difficile Toxin Assay - Final Complete Laboratory Tests 12/01/17 07:30: White Blood Count 6.3, Red Blood Count 3.64L, Hemoglobin 12.6L, Hematocrit 35.4L , Mean Corpuscular Volume 97, Mean Corpuscular Hemoglobin 34.6H, Mean Corpuscular Hemoglobin Concent 35.6, Red Cell Distribution Width 11.0L, Platelet Count 168, Mean Platelet Volume 7.2, Neutrophils (%) (Auto) 63.3, Lymphocytes (%) (Auto) 26.4, Monocytes (%) (Auto) 6.1, Eosinophils (%) (Auto) 3.8H, Basophils (%) (Auto) 0.5, Sodium Level 144, Potassium Level 3.3L, Chloride Level 110H, Carbon Dioxide Level 23, Anion Gap 11, Blood Urea Nitrogen 6L, Creatinine 1.0, Estimat Glomerular Filtration Rate > 60, Glucose Level 99, Calcium Level 8.6, Phosphorus Level 2.3L Current Medications Medications (Trade) Dose Ordered Sig/Roman Route PRN Reason Start Time Stop Time Status Last Admin Dose Admin Acetaminophen (Tylenol) 650 mg Q4H PRN ORAL fever 11/28/17 13:30 12/28/17 13:29 11/29/17 15:48 Carisoprodol (Soma) 350 mg Q8H PRN ORAL muscle spasms 11/29/17 17:00 12/29/17 16:59 12/01/17 08:36 Clotrimazole (Lotrimin) 1 applic BID TOPIC 11/29/17 09:00 12/29/17 08:59 12/01/17 10:27 Darunavir (Prezista) 600 mg TWICE A DAY ORAL 11/29/17 18:00 12/29/17 17:59 12/01/17 08:32 Dextrose/Sodium Chloride 1,000 ml @ 50 mls/hr Q20H IV 11/28/17 14:30 12/28/17 14:29 12/01/17 04:58 Dicyclomine HCl (Bentyl) 10 mg QIDPRN PRN ORAL Abdominal cramps 11/29/17 14:45 12/29/17 14:44 Docusate Sodium (Colace) 100 mg TWICE A DAY ORAL 11/30/17 09:00 12/30/17 08:59 12/01/17 08:31 Entecavir (Baraclude) 1 mg QHS ORAL 11/29/17 21:00 12/29/17 20:59 11/30/17 20:40 Etravirine (Intelence) 200 mg Q12HR ORAL 11/29/17 21:00 12/29/17 20:59 12/01/17 08:32 Gabapentin (Neurontin) 300 mg THREE TIMES A DAY ORAL 11/30/17 19:30 12/30/17 19:29 12/01/17 14:03 Heparin Sodium (Porcine) (Heparin 5000 units/ml) 5,000 units EVERY 12 HOURS SUBQ 12/01/17 09:00 12/28/17 20:59 12/01/17 08:42 Morphine Sulfate (Morphine Sulfate) 4 mg Q4H PRN IVP For Pain 11/28/17 19:15 12/05/17 19:14 12/01/17 11:16 Ondansetron HCl (Zofran) 4 mg Q6H PRN IVP Nausea & Vomiting 11/28/17 13:30 12/28/17 13:29 11/29/17 03:56 Pantoprazole (Protonix) 40 mg DAILY ORAL 11/30/17 09:00 12/30/17 08:59 12/01/17 08:32 Piperacillin Sod/ Tazobactam Sod 3.375 gm/Sodium Chloride 110 ml @ 27.5 mls/hr EVERY 8 HOURS IVPB 11/28/17 23:45 12/03/17 23:44 12/01/17 14:04 Potassium Phosphate 30 mm/ Sodium Chloride 285 ml @ 47.5 mls/hr ONCE ONCE IV 12/01/17 11:00 12/01/17 16:59 12/01/17 10:27 Raltegravir (Isentress) 400 mg Q12HR ORAL 11/29/17 21:00 6/28/18 20:59 12/01/17 08:31 Ritonavir (Norvir) 100 mg TWICE A DAY ORAL 11/29/17 18:00 12/29/17 17:59 12/01/17 08:47 Valacyclovir HCl (Valtrex) 1,000 mg DAILY ORAL 11/30/17 09:00 12/30/17 08:59 12/01/17 08:32 Vancomycin HCl (Vanco rx to dose) 1 ea DAILY PRN MISC Per rx protocol 11/29/17 15:45 12/29/17 15:44 Vancomycin HCl 500 mg/Dextrose 110 ml @ 110 mls/hr Q24H IVPB 11/30/17 18:00 12/05/17 17:59 11/30/17 18:52 Vitamin A/Vitamin D (A & D Oint) 1 applic EVERY 12 HOURS TOPIC 11/28/17 21:00 12/28/17 20:59 12/01/17 10:27 Zolpidem Tartrate (Ambien) 5 mg HSPRN PRN ORAL Insomnia 11/28/17 13:30 12/05/17 13:29 Oliverio Rm MD December 01, 2017 14:16
--- NOTE | 2017-12-01 15:26 | General Surgery Progress Note ---
General Surgery-Progress Note Subjective Symptoms: improved, pain absent, tolerating diet, passing flatus, BM Objective Last 24 Hour Vital Signs Date Time Temp Pulse Resp B/P (MAP) Pulse Ox O2 Delivery O2 Flow Rate FiO2 12/01/17 11:46 98.5 12/01/17 11:16 98.5 12/01/17 08:36 98.5 12/01/17 08:00 98.2 96 20 120/72 95 Room Air 98.2 12/01/17 04:00 98.5 83 19 107/59 93 Room Air 98.5 12/01/17 01:35 98.5 12/01/17 00:00 98.5 93 19 130/72 94 Room Air 98.5 11/30/17 20:41 98.3 11/30/17 20:00 99.1 103 19 117/68 93 Room Air 99.1 11/30/17 18:04 80 11/30/17 16:30 98.3 127 20 108/76 97 Room Air 98.3 I&O Intake and Output 11/30/17 12/01/17 19:00 07:00 Intake Total 1417.5 ml 1092.5 ml Output Total 1100 ml 1600 ml Balance 317.5 ml -507.5 ml Intake Oral 800 ml 300 ml IV Total 617.5 ml 792.5 ml Output Urine Total 1100 ml 1600 ml # Bowel Movements 1 Cardiovascular: RSR Respiratory: clear Abdomen: soft, non-tender, present bowel sounds Extremities: no cyanosis Laboratory Tests Test 12/01/17 07:30 White Blood Count 6.3 K/UL (4.8-10.8) Red Blood Count 3.64 M/UL (4.70-6.10) L Hemoglobin 12.6 G/DL (14.2-18.0) L Hematocrit 35.4 % (42.0-52.0) L Mean Corpuscular Volume 97 FL (80-99) Mean Corpuscular Hemoglobin 34.6 PG (27.0-31.0) H Mean Corpuscular Hemoglobin Concent 35.6 G/DL (32.0-36.0) Red Cell Distribution Width 11.0 % (11.6-14.8) L Platelet Count 168 K/UL (150-450) Mean Platelet Volume 7.2 FL (6.5-10.1) Neutrophils (%) (Auto) 63.3 % (45.0-75.0) Lymphocytes (%) (Auto) 26.4 % (20.0-45.0) Monocytes (%) (Auto) 6.1 % (1.0-10.0) Eosinophils (%) (Auto) 3.8 % (0.0-3.0) H Basophils (%) (Auto) 0.5 % (0.0-2.0) Sodium Level 144 MMOL/L (136-145) Potassium Level 3.3 MMOL/L (3.5-5.1) L Chloride Level 110 MMOL/L (98-107) H Carbon Dioxide Level 23 MMOL/L (21-32) Anion Gap 11 mmol/L (5-15) Blood Urea Nitrogen 6 mg/dL (7-18) L Creatinine 1.0 MG/DL (0.55-1.30) Estimat Glomerular Filtration Rate > 60 mL/min (>60) Glucose Level 99 MG/DL (74-106) Calcium Level 8.6 MG/DL (8.5-10.1) Phosphorus Level 2.3 MG/DL (2.5-4.9) L Plan Problems: (1) Intractable abdominal pain Assessment & Plan: 67M with abdominal pain, mainly right side/flank. exam fairly benign but patient states pain severe. no n/v/f/c. labs okay. otherwise well. possible constipation vs renal stone vs GB? CT and US without significant abnormality. -diet as tolerated -bowel regimen thank you for this consultation. will follow with recs. - Zaheer Cifuentse December 01, 2017 15:26
[2017-12-01 15:44] VITALS: BP 136/83
--- NOTE | 2017-12-01 15:52 | Infectious Diseases Prog Note ---
Assessment/Plan Assessment/Plan Abx: Zosyn 11/28- Assessment: Sepsis, SP- unclear source- ?viral syndrome given Fever, CLAIRE, abd pain (RLQ) and diarrhea- neg Influenza, CT abd/p and CT head with no significant findings. No cholecystitis on Abd US. +Cellulitis, r/o bacteremia. ?RLQ due to shingles- no rash at present -CXR: Mild basal atelectasis -Abd US Mild splenomegaly. Left renal cyst Cortical atrophy of both kidneys. Gallbladder sludge -CT abd/p wo: Multitude of incidental chronic findings as described above. No acute abnormalities appreciated. Scarring at the lung bases with traction bronchiectasis. Suspected gallstones versus sludge in the gallbladder lumen. Another hypodensity adjacent to the gallbladder noted in the liver. -influenza sc neg -lipase normal -Bcx NTD Headache- no meningismus noted -CT head wo: No acute intracranial bleed, mass effect or edema. 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 Mild atrophy of the brain. Nonspecific white matter hypoattenuation probably due to chronic small vessel disease. B/l leg cellulitis, mild (on baseline chronic edema) -v. duplex, no DVT b/l DIarrhea Cdiff neg stool cx normal thomas to date o+p p Fever, resolved -no leukocytosis -u/a neg HARVINDER, improving HIV, -11/30 CD4 327, VL p - (last saw HIV doc ~ 3 weeks ago) Recent E.coli UTi 10/2017, sp Rx -E.coli mehta S HTN CVA/TIA 2004 Plan: -On empiric Zosyn #4 and IV Vancomycin #3; ok to discharge on PO Augmentin 875/ 125mg bid for 3 more days for cellulitis and GI coverage -monitor for any rash resembling shingles -f/u cx -Monitor CBC/BMP, temperatures -f/u HIV VL CrAg -aspiration precautions -GI, Sx f/u Thank you for this consultation. Will continue to follow along with you. Discussed with RN. Subjective Allergies: Coded Allergies: CODEINE (Unverified Allergy, Unknown, 11/28/17) SULFAMETHOXAZOLE (Unverified Allergy, Unknown, 10/27/17) TRIMETHOPRIM (Unverified Allergy, Unknown, 10/27/17) Subjective afebrile in >48 hrs bcx NTD stool cx normal thomas tod ate Objective Vital Signs Last 24 Hour Vital Signs Date Time Temp Pulse Resp B/P (MAP) Pulse Ox O2 Delivery O2 Flow Rate FiO2 12/01/17 11:46 98.5 12/01/17 11:16 98.5 12/01/17 08:36 98.5 12/01/17 08:00 98.2 96 20 120/72 95 Room Air 98.2 12/01/17 04:00 98.5 83 19 107/59 93 Room Air 98.5 12/01/17 01:35 98.5 12/01/17 00:00 98.5 93 19 130/72 94 Room Air 98.5 11/30/17 20:41 98.3 11/30/17 20:00 99.1 103 19 117/68 93 Room Air 99.1 11/30/17 18:04 80 11/30/17 16:30 98.3 127 20 108/76 97 Room Air 98.3 Height (Feet): 5 Height (Inches): 4.00 Weight (Pounds): 163 Objective General Appearance: no apparent distress, alert HEENT: normocephalic, atraumatic, PERRL, normal pharynx Neck: full range of motion, supple/symm/no masses Respiratory: chest non-tender, lungs clear, normal breath sounds, speaking full sentences Cardiovascular regular rate, rhythm, no edema Gastrointestinal: normal bowel sounds, soft, non-distended, no guarding, no rebound, tenderness - RLQ Genitourinary: normal inspection, no CVA tenderness Musculoskeletal: back normal, gait/station normal, normal range of motion, non- tender Neurologic: alert, oriented x3, responsive, motor strength/tone normal, sensory intact, speech normal Skin: b/l leg swelling, erythema, warmth and TTP on distal leg aspect R>L Microbiology Date/Time Source Procedure Growth Status 11/28/17 23:40 Blood Blood Culture - Preliminary NO GROWTH AFTER 48 HOURS Resulted 11/28/17 23:30 Blood Blood Culture - Preliminary NO GROWTH AFTER 48 HOURS Resulted 11/29/17 12:00 Nasopharynx Influenza Types A,B Antigen ([place]) - Final Complete 11/30/17 15:00 Stool Stool Culture - Preliminary NORMAL FECAL THOMAS. Resulted 11/28/17 17:30 Stool Clostridium difficile Toxin Assay - Final Complete Laboratory Tests Test 12/01/17 07:30 White Blood Count 6.3 K/UL (4.8-10.8) Red Blood Count 3.64 M/UL (4.70-6.10) L Hemoglobin 12.6 G/DL (14.2-18.0) L Hematocrit 35.4 % (42.0-52.0) L Mean Corpuscular Volume 97 FL (80-99) Mean Corpuscular Hemoglobin 34.6 PG (27.0-31.0) H Mean Corpuscular Hemoglobin Concent 35.6 G/DL (32.0-36.0) Red Cell Distribution Width 11.0 % (11.6-14.8) L Platelet Count 168 K/UL (150-450) Mean Platelet Volume 7.2 FL (6.5-10.1) Neutrophils (%) (Auto) 63.3 % (45.0-75.0) Lymphocytes (%) (Auto) 26.4 % (20.0-45.0) Monocytes (%) (Auto) 6.1 % (1.0-10.0) Eosinophils (%) (Auto) 3.8 % (0.0-3.0) H Basophils (%) (Auto) 0.5 % (0.0-2.0) Sodium Level 144 MMOL/L (136-145) Potassium Level 3.3 MMOL/L (3.5-5.1) L Chloride Level 110 MMOL/L (98-107) H Carbon Dioxide Level 23 MMOL/L (21-32) Anion Gap 11 mmol/L (5-15) Blood Urea Nitrogen 6 mg/dL (7-18) L Creatinine 1.0 MG/DL (0.55-1.30) Estimat Glomerular Filtration Rate > 60 mL/min (>60) Glucose Level 99 MG/DL (74-106) Calcium Level 8.6 MG/DL (8.5-10.1) Phosphorus Level 2.3 MG/DL (2.5-4.9) L Current Medications Medications (Trade) Dose Ordered Sig/Roman Route PRN Reason Start Time Stop Time Status Last Admin Dose Admin Acetaminophen (Tylenol) 650 mg Q4H PRN ORAL fever 11/28/17 13:30 12/28/17 13:29 11/29/17 15:48 Carisoprodol (Soma) 350 mg Q8H PRN ORAL muscle spasms 11/29/17 17:00 12/29/17 16:59 12/01/17 08:36 Clotrimazole (Lotrimin) 1 applic BID TOPIC 11/29/17 09:00 12/29/17 08:59 12/01/17 10:27 Darunavir (Prezista) 600 mg TWICE A DAY ORAL 11/29/17 18:00 12/29/17 17:59 12/01/17 08:32 Dicyclomine HCl (Bentyl) 10 mg QIDPRN PRN ORAL Abdominal cramps 11/29/17 14:45 12/29/17 14:44 Docusate Sodium (Colace) 100 mg TWICE A DAY ORAL 11/30/17 09:00 12/30/17 08:59 12/01/17 08:31 Entecavir (Baraclude) 1 mg QHS ORAL 11/29/17 21:00 12/29/17 20:59 11/30/17 20:40 Etravirine (Intelence) 200 mg Q12HR ORAL 11/29/17 21:00 12/29/17 20:59 12/01/17 08:32 Gabapentin (Neurontin) 300 mg THREE TIMES A DAY ORAL 11/30/17 19:30 12/30/17 19:29 12/01/17 14:03 Heparin Sodium (Porcine) (Heparin 5000 units/ml) 5,000 units EVERY 12 HOURS SUBQ 12/01/17 09:00 12/28/17 20:59 12/01/17 08:42 Morphine Sulfate (Morphine Sulfate) 4 mg Q4H PRN IVP For Pain 11/28/17 19:15 12/05/17 19:14 12/01/17 11:16 Ondansetron HCl (Zofran) 4 mg Q6H PRN IVP Nausea & Vomiting 11/28/17 13:30 12/28/17 13:29 11/29/17 03:56 Pantoprazole (Protonix) 40 mg DAILY ORAL 11/30/17 09:00 12/30/17 08:59 12/01/17 08:32 Piperacillin Sod/ Tazobactam Sod 3.375 gm/Sodium Chloride 110 ml @ 27.5 mls/hr EVERY 8 HOURS IVPB 11/28/17 23:45 12/03/17 23:44 12/01/17 14:04 Potassium Phosphate 30 mm/ Sodium Chloride 285 ml @ 47.5 mls/hr ONCE ONCE IV 12/01/17 11:00 12/01/17 16:59 12/01/17 10:27 Raltegravir (Isentress) 400 mg Q12HR ORAL 11/29/17 21:00 12/29/17 20:59 12/01/17 08:31 Ritonavir (Norvir) 100 mg TWICE A DAY ORAL 11/29/17 18:00 12/29/17 17:59 12/01/17 08:47 Valacyclovir HCl (Valtrex) 1,000 mg DAILY ORAL 11/30/17 09:00 12/30/17 08:59 12/01/17 08:32 Vancomycin HCl (Vanco rx to dose) 1 ea DAILY PRN MISC Per rx protocol 11/29/17 15:45 12/29/17 15:44 Vancomycin HCl 500 mg/Dextrose 110 ml @ 110 mls/hr Q24H IVPB 11/30/17 18:00 12/05/17 17:59 11/30/17 18:52 Vitamin A/Vitamin D (A & D Oint) 1 applic EVERY 12 HOURS TOPIC 11/28/17 21:00 12/28/17 20:59 12/01/17 10:27 Zolpidem Tartrate (Ambien) 5 mg HSPRN PRN ORAL Insomnia 11/28/17 13:30 12/05/17 13:29 Miranda Cordero M.D. December 01, 2017 15:52
[2017-12-01] MEDS: Vancomycin 500mg/D5W 110ml IVPB SCH ×2 (17:45)
[2017-12-01] MEDS ORDERED: AUGMENTIN 875-1 EAC1 ORAL (19:24)
[2017-12-01 20:00] VITALS: BP 116/69
[2017-12-01] MEDS ORDERED: D5 1/2NS 1000ml IV ONE (22:29)
--- NOTE | 2017-12-03 13:26 | Discharge Summary ---
Discharge Summary Discharge Summary _ DATE OF ADMISSION: 11/28/2017 DATE OF DISCHARGE: 12/01/2017 CONSULTANTS: Dr. Miranda Juarez BRIEF HOSPITAL COURSE: Patient is a 67-year-old male, with degenerative disc disease, presented to ED complaining of abdominal pain that started 2 days prior to admission. Pain was right sided and sharp, 9 out of 10 in intensity and nonradiating. Patient felt very weak and was not eating or drinking. He denied fever or chills, denied chest pain or shortness of breath. Denied nausea or vomiting. No aggravating or relieving factors. Denied any other associated symptoms. On evaluation at ED, blood work did not show any leukocytoses. Creatinine was elevated to 1.6. LFTs and lipase were normal. Urinalysis was unremarkable. He had a CT of the abdomen and pelvis that showed gallbladder sludge. No evidence of obstruction. He was admitted for evaluation of abdominal pain. Surgical evaluation was done. Physical examination was fairly benign but patient complains of severe pain. CT scan and ultrasound of abdomen was without significant abnormality. He was eventually started on diet. He was seen by infectious disease specialist, patient has history of HIV and was febrile to 102. He complained of headache however no meningismus was noted. He had bilateral lower extremity cellulitis. He was recently treated for urine infection. He was then started empirically on Zosyn pending culture results. He has anxiety and depression. Psychiatric evaluation was done. He was given Remeron 15 mg daily at bedtime. He also complained of pain and was seen by paint sprayer sandblaster. He was continued on morphine and was started on Neurontin 300 mg 3 times a day. IV vancomycin was added to his regimen. Influenza screen was negative. Blood culture did not isolate any growth. He had diarrhea, C. difficile and stool O and P were negative. Venous duplex of lower extremity was negative for DVT. Head CT without any intracranial bleed or mass effect or edema. RPR was nonreactive, cryptococcus was negative. HIV still pending. He was tolerating diet and was having bowel movements. Right lower quadrant abdominal pain improved. He was eventually cleared for discharge to assisted living. FINAL DIAGNOSES: Sepsis HIV Intractable abdominal pain Severe protein calorie malnutrition Neuropathy Degenerative disc disease Headache Bilateral leg cellulitis Diarrhea Acute kidney injury Recent Escherichia coli UTI Hypertension Old CVA/TIA DISPOSITION: Patient was discharged back to assisted living. DISCHARGE MEDICATIONS: Refer to Discharge Medication List. Continue Augmentin 875/125 mg twice a day for 3 more days. DISCHARGE INSTRUCTIONS: Follow up with PCP in a week. I have been assigned to dictate discharge summary on this account, and I was not involved in the patient's management. Shalini Delgadillo NP Dec 03, 2017 13:26
--- NOTE | 2017-12-07 11:17 | Physician Query ---
--------- THIS DOCUMENT IS A PERMANENT PART OF THE MEDICAL RECORD --------- PLEASE COMPLETE THE DOCUMENT BEFORE SIGNING Dear Dr. RM Date: 12/07/17 Lumber Sorter/CDS Name: WINSTON TORRES, DASHA Exercise your independent professional judgment when responding to query. Question asked do not imply a particular answer is desired/expected Clinical Documentation States:"Sepsis" documented in ..... Progress note 11/30/17, 12/01/17 (1) Sepsis all cultures are negative DC summary states: IV vancomycin was added to his regimen. Influenza screen was negative. Blood culture did not isolate any growth. He had diarrhea, C. difficile and stool O and P were negative. Venous duplex of lower extremity was negative for DVT. Head CT without any intracranial bleed or mass effect or edema. RPR was nonreactive, cryptococcus was negative. HIV still pending. He was tolerating diet and was having bowel movements. Right lower quadrant abdominal pain improved. He was eventually cleared for discharge to assisted living. 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 [] Yes [] No [] Clinically undeterminable Please also document in your Progress Notes and/or Discharge Summary and indicate if the condition was present on admission. Oliverio Rm M.D. Date & Time [facility]
== END 2017-12-01 22:30 | disposition home or self-care (01) | DRG 974 ==
LOC: EDBD 10:24 → EMR 10:52 → 4E 12:59 → EDBEDREQ 13:26
DX: A41.9 Sepsis, unspecified organism (principal); B20 Human immunodeficiency virus [HIV] disease; E43 Unspecified severe protein-calorie malnutrition; L03.116 Cellulitis of left lower limb; L03.115 Cellulitis of right lower limb; N17.9 Acute kidney failure, unspecified; R10.9 Unspecified abdominal pain; G62.9 Polyneuropathy, unspecified; I10 Essential (primary) hypertension; Z86.73 Personal history of transient ischemic attack (TIA), and cerebral infarction without residual deficits; M81.0 Age-related osteoporosis without current pathological fracture; Z85.048 Personal history of other malignant neoplasm of rectum, rectosigmoid junction, and anus; Z91.81 History of falling; Z88.6 Allergy status to analgesic agent; Z88.2 Allergy status to sulfonamides; Z88.8 Allergy status to other drugs, medicaments and biological substances; F32.9 Major depressive disorder, single episode, unspecified; F41.9 Anxiety disorder, unspecified; G47.00 Insomnia, unspecified; D64.89 Other specified anemias; M51.37 Other intervertebral disc degeneration, lumbosacral region
CPT/HCPCS: 36415; 70450; 71045; 74176; 76700; 80048; 80053; 81003; 82270; 82607; 82746; 83690; 83735; 84100; 85025; 85651; 86140; 86360; 86592; 86710; 87040; 87045; 87081; 87324; 87449; 87536; 93970; 99285; J2405

== ENCOUNTER 2018-08-31 11:48 | Inpatient (IN) | payer MEDICARE, MEDICAID ==
[~2018-08-31] VITALS: Ht 165.1 cm
[~2018-08-31 11:48] MED LIST changes: +ALCORTIN A GEL48 GM TP; +AMLODIPINE BESYL5 MG ORAL; +ASPIR 8181 MG ORAL; +AUGMENTIN 875-1 EAC1 ORAL; +CEPHALEXIN500 MG ORAL; +CLOTRIMAZOLE15 GM TOPIC; +FOSAMAX70 MG ORAL; +GAS RELIEF125 M1 PO; +ISENTRESS100 MG ORAL; +LEVOTHYROXINE75 MCG ORAL; +LOSARTAN POTASS50 MG ORAL; +LUNESTA3 MG ORAL; +MELOXICAM15 MG PO; +METHOCARBAMOL500 M1 PO; +METOPROLOL TART25 MG ORAL; +MIRTAZAPINE15 M3 ORAL; +MYRBETRIQ25 MG PO; +NORVASC10 MG ORAL; +NORVIR100 MG ORAL; +OMEPRAZOLE20 M2 ORAL; +OYSCO-500500 M1 PO; +PAROXETINE HCL40 MG ORAL; +PREZISTA600 MG ORAL; +PROSCAR5 MG ORAL; +TAMSULOSIN HCL0.4 MG ORAL; +TYLENOL EXTRA500 MG ORAL; +VALACYCLOVIR500 MG ORAL; +VITAMIN D1000 UNI1 ORAL; +ZOFRAN ODT8 MG ORAL
--- NOTE | 2018-08-31 12:03 | Emergency Room Report ---
History of Present Illness General Chief Complaint: Pain Source: Patient, EMS Present Illness HPI Patient is a 68-year-old male brought in by EMS after increased left-sided flank pain patient prior history of HIV. He reports of increased left flank pain for several days. He reports having similar symptoms in the past. Reports having increased urinary frequency and increased pain with urination. Reports having undetectable viral load and CD4 count He reports having prior history of arthritis and states that he had some prior CT imaging for the similar pain in the past. Allergies: Coded Allergies: CODEINE (Unverified Allergy, Unknown, 11/28/17) EMTRICITABINE (Verified Allergy, Unknown, anxiousness, 08/31/18) SULFAMETHOXAZOLE (Unverified Allergy, Unknown, 10/27/17) TENOFOVIR (Verified Allergy, Unknown, anxiousness, 08/31/18) TRIMETHOPRIM (Unverified Allergy, Unknown, 10/27/17) Patient History Past Medical History: see triage record Reviewed Nursing Documentation: PMH: Agreed; PSxH: Agreed Nursing Documentation-PMH Hx Cardiac Problems: No Hx Hypertension: Yes Hx Cancer: Yes - RECTAL Hx Gastrointestinal Problems: Yes Hx Neurological Problems: Yes Hx Cerebrovascular Accident: Yes - 2005 Hx Weakness: Yes Review of Systems All Other Systems: negative except mentioned in HPI Physical Exam Vital Signs Date Time Temp Pulse Resp B/P (MAP) Pulse Ox O2 Delivery O2 Flow Rate FiO2 08/31/18 11:44 98.1 82 16 156/82 100 Room Air Sp02 EP Interpretation: reviewed, normal General Appearance: normal inspection, alert, GCS 15, Chronically Ill Head: atraumatic ENT: normal ENT inspection, hearing grossly normal, normal voice, dry mucus membranes Neck: normal inspection, full range of motion, supple, no bony tend Respiratory: normal inspection, lungs clear, normal breath sounds, no respiratory distress, no retraction, no wheezing Cardiovascular #1: regular rate, rhythm, no edema Gastrointestinal: normal inspection, normal bowel sounds, non tender, soft, no guarding, no hernia Genitourinary: no CVA tenderness Musculoskeletal: normal inspection, back normal, normal range of motion Neurologic: normal inspection, alert, oriented x3, responsive, level vial marker III-XII nml as tested, speech normal Psychiatric: normal inspection, judgement/insight normal, mood/affect normal Skin: normal inspection, no rash Medical Decision Making Diagnostic Impression: Primary Impression: Renal insufficiency Additional Impressions: UTI (urinary tract infection) HIV (human immunodeficiency virus infection) Dehydration ER Course Patient presented for generalized weakness. The frontal diagnosis include was not limited to sepsis, dehydration, renal failure among others. Because of complexity of patient's case laboratory testing and imaging studies were ordered. Patient was noted to have prior history of HIV and was noted to have worsening left-sided flank pain. He was given IV antibiotics. Patient was noted to have CT imaging performed approximately 1 month ago. Patient's laboratory testing showed worsening renal function. Patient was endorsed to Dr. Orantes pending authorization for admission. Labs Test 08/31/18 12:11 08/31/18 13:35 White Blood Count 6.2 K/UL (4.8-10.8) Red Blood Count 3.61 M/UL (4.70-6.10) Hemoglobin 12.0 G/DL (14.2-18.0) Hematocrit 36.3 % (42.0-52.0) Mean Corpuscular Volume 100 FL (80-99) Mean Corpuscular Hemoglobin 33.2 PG (27.0-31.0) Mean Corpuscular Hemoglobin Concent 33.1 G/DL (32.0-36.0) Red Cell Distribution Width 12.9 % (11.6-14.8) Platelet Count 136 K/UL (150-450) Mean Platelet Volume 7.7 FL (6.5-10.1) Neutrophils (%) (Auto) 60.4 % (45.0-75.0) Lymphocytes (%) (Auto) 28.5 % (20.0-45.0) Monocytes (%) (Auto) 8.0 % (1.0-10.0) Eosinophils (%) (Auto) 2.2 % (0.0-3.0) Basophils (%) (Auto) 0.8 % (0.0-2.0) Prothrombin Time 10.4 SEC (9.30-11.50) Prothromb Time International Ratio 1.0 (0.9-1.1) Activated Partial Thromboplast Time 26 SEC (23-33) Sodium Level 141 MMOL/L (136-145) Potassium Level 3.8 MMOL/L (3.5-5.1) Chloride Level 106 MMOL/L (98-107) Carbon Dioxide Level 24 MMOL/L (21-32) Anion Gap 11 mmol/L (5-15) Blood Urea Nitrogen 32 mg/dL (7-18) Creatinine 1.6 MG/DL (0.55-1.30) Estimat Glomerular Filtration Rate 42.9 mL/min (>60) Glucose Level 104 MG/DL (74-106) Calcium Level 8.9 MG/DL (8.5-10.1) Total Bilirubin 0.3 MG/DL (0.2-1.0) Aspartate Amino Transf (AST/SGOT) 20 U/L (15-37) Alanine Aminotransferase (ALT/SGPT) 15 U/L (12-78) Alkaline Phosphatase 100 U/L (46-116) Troponin I 0.002 ng/mL (0.000-0.056) Total Protein 7.1 G/DL (6.4-8.2) Albumin 3.2 G/DL (3.4-5.0) Globulin 3.9 g/dL Albumin/Globulin Ratio 0.8 (1.0-2.7) Lipase 111 U/L (73-393) Urine Color Pale yellow Urine Appearance Slightly cloudy Urine pH 8 (4.5-8.0) Urine Specific [place] 1.010 (1.005-1.035) Urine Protein 2+ (NEGATIVE) Urine Glucose (UA) Negative (NEGATIVE) Urine Ketones Negative (NEGATIVE) Urine Blood Negative (NEGATIVE) Urine Nitrite Negative (NEGATIVE) Urine Bilirubin Negative (NEGATIVE) Urine Urobilinogen Normal MG/DL (0.0-1.0) Urine Leukocyte Esterase 3+ (NEGATIVE) Urine RBC 0 /HPF (0 - 0) Urine WBC 10-15 /HPF (0 - 0) Urine Squamous Epithelial Cells Occasional /LPF Urine Bacteria Few /HPF (NONE) EKG Diagnostic Results Rate: normal Rhythm: NSR ST Segments: no acute changes Last Vital Signs Date Time Temp Pulse Resp B/P (MAP) Pulse Ox O2 Delivery O2 Flow Rate FiO2 08/31/18 11:44 98.1 82 16 156/82 100 Room Air Status: unchanged Disposition: ADMITTED INPATIENT Condition: Stable Matheus Solorzano MD Aug 31, 2018 12:03
[2018-08-31] MEDS ORDERED: Morphine Sulfate 4mg/ml Inj (IV USE ONLY) IVP ONE (12:30)
[2018-08-31 12:42] LABS: ANION GAP 11 mmol/L (5-15); BLOOD UREA NITROGEN 32 mg/dL (7-18); CALCIUM 8.9 MG/DL (8.5-10.1); CARBON DIOXIDE 24 MMOL/L (21-32); CHLORIDE 106 MMOL/L (98-107); CREATININE 1.6 MG/DL (0.55-1.30); POTASSIUM 3.8 MMOL/L (3.5-5.1); SODIUM 141 MMOL/L (136-145)
[2018-08-31 12:46] LABS: ALANINE AMINOTRANSFERASE 15 U/L (12-78); ALBUMIN 3.2 G/DL (3.4-5.0); ALBUMIN/GLOBULIN RATIO 0.8 (1.0-2.7); ALKALINE PHOSPHATASE 100 U/L (46-116); ASPARTATE AMINO TRANSFERASE 20 U/L (15-37); BASOPHILS % (AUTO) 0.8 % (0.0-2.0); BILIRUBIN,TOTAL 0.3 MG/DL (0.2-1.0); EOSINOPHILS % (AUTO) 2.2 % (0.0-3.0); HEMATOCRIT 36.3 % (42.0-52.0); LYMPHOCYTES % (AUTO) 28.5 % (20.0-45.0); MEAN CORPUSCULAR VOLUME 100 FL (80-99); NEUTROPHILS % (AUTO) 60.4 % (45.0-75.0); PLATELET COUNT 136 K/UL (150-450); RED BLOOD COUNT 3.61 M/UL (4.70-6.10); RED CELL DISTRIBUTION WIDTH 12.9 % (11.6-14.8); WHITE BLOOD COUNT 6.2 K/UL (4.8-10.8)
[2018-08-31 14:09] LABS: APPEARANCE,URINE SLIGHTLY CLOUDY; BILIRUBIN, URINE NEGATIVE (NEGATIVE); COLOR,URINE PALE YELLOW; GLUCOSE, URINE (UA) NEGATIVE (NEGATIVE); KETONES,URINE NEGATIVE (NEGATIVE); LEUKOCYTE ESTERASE ,URINE 3+ (NEGATIVE); NITRITE,URINE NEGATIVE (NEGATIVE); PH,URINE 8 (4.5-8.0); PROTEIN,URINE 2+ (NEGATIVE); UROBILINOGEN,URINE NORMAL MG/DL (0.0-1.0)
[2018-08-31 14:18] VITALS: BP 128/72
[2018-08-31] MEDS ORDERED: GENVOYA TABLET1 EACH PO (14:20)
[2018-08-31] MEDS ORDERED: GABAPENTIN600 MG ORAL (14:20)
[2018-08-31] MEDS ORDERED: OXYBUTYNIN5 MG/5 M1 PO (14:20)
[2018-08-31] MEDS ORDERED: PREZISTA600 MG ORAL (14:20)
[2018-08-31] MEDS ORDERED: BACLOFEN10 MG ORAL (14:20)
[2018-08-31] MEDS ORDERED: ENDOCET 10-3251 EACH ORAL (14:20)
[2018-08-31] MEDS ORDERED: cefTRIAXone 1 GM in NS 55 ML IVPB ONE (14:45)
[2018-08-31] MEDS ORDERED: Zolpidem 5mg tab ORAL PRN (16:30)
[2018-08-31] MEDS ORDERED: LORazepam Inj 2mg/ml 1ml IV PRN (16:30)
[2018-08-31] MEDS ORDERED: Miralax 17gm pkt ORAL PRN (16:30)
[2018-08-31] MEDS ORDERED: Mylanta II UD 30ml ORAL PRN (16:30)
[2018-08-31 16:52] VITALS: BP 121/63
[2018-08-31 20:00] VITALS: BP 137/91
[2018-08-31] MEDS ORDERED: Darunavir 600mg tab ORAL SCH (21:00)
[2018-08-31] MEDS: Metoprolol 25mg tab ORAL SCH (21:20)
[2018-08-31] MEDS: Tamsulosin 0.4mg cap ORAL SCH (21:20)
[2018-09-01] VITALS: BP 143/83
[2018-09-01] MEDS: Morphine Sulfate 2mg/ml Inj(IV/IM USE ONLY) IVP PRN ×4 (01:15→21:27)
[2018-09-01 04:00] VITALS: BP 137/76
[2018-09-01 07:11] LABS: BASOPHILS % (AUTO) 0.6 % (0.0-2.0); EOSINOPHILS % (AUTO) 3.9 % (0.0-3.0); HEMATOCRIT 37.2 % (42.0-52.0); HEMOGLOBIN 12.4 G/DL (14.2-18.0); LYMPHOCYTES % (AUTO) 18.2 % (20.0-45.0); MEAN CORPUSCULAR VOLUME 100 FL (80-99); MONOCYTES % (AUTO) 9.2 % (1.0-10.0); NEUTROPHILS % (AUTO) 68.1 % (45.0-75.0); PLATELET COUNT 137 K/UL (150-450); RED CELL DISTRIBUTION WIDTH 12.6 % (11.6-14.8); WHITE BLOOD COUNT 5.6 K/UL (4.8-10.8)
[2018-09-01 07:40] LABS: ALANINE AMINOTRANSFERASE 16 U/L (12-78); ALBUMIN 3.1 G/DL (3.4-5.0); ALBUMIN/GLOBULIN RATIO 0.8 (1.0-2.7); ALKALINE PHOSPHATASE 96 U/L (46-116); ANION GAP 7 mmol/L (5-15); ASPARTATE AMINO TRANSFERASE 21 U/L (15-37); BILIRUBIN,TOTAL 0.2 MG/DL (0.2-1.0); BLOOD UREA NITROGEN 22 mg/dL (7-18); CALCIUM 8.7 MG/DL (8.5-10.1); CARBON DIOXIDE 27 MMOL/L (21-32); CHLORIDE 108 MMOL/L (98-107); CHOLESTEROL 170 MG/DL (< 200); CREATININE 1.3 MG/DL (0.55-1.30); HDL CHOLESTEROL 43 MG/DL (40-60); POTASSIUM 4.7 MMOL/L (3.5-5.1); SODIUM 142 MMOL/L (136-145); TRIGLYCERIDES 179 MG/DL (30-150)
[2018-09-01 08:00] VITALS: BP 164/134
[2018-09-01] MEDS ORDERED: PARoxetine 20mg tab ORAL SCH (09:00)
[2018-09-01 09:28] VITALS: BP 153/89
[2018-09-01] MEDS: Losartan 50mg tab ORAL SCH (09:30)
[2018-09-01] MEDS: Metoprolol 25mg tab ORAL SCH ×2 (09:36→21:26)
[2018-09-01] MEDS ORDERED: Darunavir 600mg tab ORAL SCH (15:00)
[2018-09-01] MEDS ORDERED: Etravirine 100mg tab ORAL SCH (15:00)
[2018-09-01] MEDS ORDERED: Ritonavir 100mg tab ORAL SCH (15:00)
[2018-09-01] MEDS ORDERED: valACYclovir HCL 500mg tab ORAL SCH (15:15)
[2018-09-01 16:00] VITALS: BP 141/81
--- NOTE | 2018-09-01 16:39 | Consultation ---
History of Present Illness General Date patient seen: Sep 01, 2018 Chief Complaint: Pain Present Illness HPI Patient is a 68-year-old male with hx of HIV with undetectable viral load and unknown CD4 brought in by EMS with CC of left-sided flank pain for several days. He reports having similar symptoms in the past with urinary frequency and increased pain with urination. He is admitted for pyelonephritis and intractable dysuria. Allergies: Coded Allergies: CODEINE (Unverified Allergy, Unknown, 11/28/17) EMTRICITABINE (Verified Allergy, Unknown, anxiousness, 08/31/18) SULFAMETHOXAZOLE (Unverified Allergy, Unknown, 10/27/17) TENOFOVIR (Verified Allergy, Unknown, anxiousness, 08/31/18) TRIMETHOPRIM (Unverified Allergy, Unknown, 10/27/17) Medication History Scheduled Acetaminophen* (Tylenol Extra Strength*), 500 MG ORAL Q6H Alendronate Sodium* (Fosamax*), 70 MG ORAL ONCE A WEEK, (Reported) Amlodipine Besylate (Norvasc), 10 MG ORAL DAILY, (Reported) Amoxicillin/Potassium Clav 875-125* (Augmentin 875-125 Tablet*), 1 TAB ORAL DAILY, (Reported) Aspirin* (Aspir 81*), 81 MG ORAL DAILY, (Reported) Baclofen* (Baclofen*), 10 MG ORAL THREE TIMES A DAY, (Reported) Calcium Carbonate ([place]-500), 500 MG PO DAILY, (Reported) Cephalexin* (Keflex*), 500 MG ORAL EVERY 12 HOURS Cephalexin* (Keflex*), 500 MG ORAL EVERY 12 HOURS Cholecalciferol (Vitamin D3)* (Vitamin D*), 2,000 UNITS ORAL DAILY, (Reported) Clotrimazole* (Lotrimin*), 1 APPLIC TOPIC TWICE A DAY, (Reported) Darunavir Ethanolate* (Prezista*), 600 MG ORAL EVERY 12 HOURS, (Reported) Darunavir Ethanolate* (Prezista*), 800 MG ORAL EVERY 12 HOURS, (Reported) Dutasteride (Avodart), 0.5 MG ORAL DAILY, (Reported) Entecavir* (Baraclude*), 1 MG ORAL DAILY, (Reported) Etravirine* (Intelence*), 200 MG ORAL EVERY 12 HOURS, (Reported) Finasteride* (Proscar*), 5 MG ORAL DAILY, (Reported) Gabapentin* (Gabapentin*), 600 MG ORAL THREE TIMES A DAY, (Reported) Hydrocortisone/Iodoquin/Aloe#2 (Alcortin A Gel), 48 GM TP QID, (Reported) Levothyroxine Sodium* (Levothyroxine Sodium*), 25 MCG ORAL DAILY, (Reported) Lorazepam* (Lorazepam*), 1 MG ORAL TWICE A DAY, (Reported) Losartan Potassium* (Losartan Potassium*), 50 MG ORAL DAILY, (Reported) Meloxicam* (Meloxicam*), 15 MG PO DAILY, (Reported) Methocarbamol (Methocarbamol), 500 MG PO Q6HR, (Reported) Metoprolol Tartrate* (Metoprolol Tartrate*), 25 MG ORAL EVERY 12 HOURS, ( Reported) Mirtazapine* (Mirtazapine*), 15 MG ORAL BEDTIME, (Reported) Omeprazole (Omeprazole), 20 MG ORAL DAILY, (Reported) Oxycodone HCl/Acetaminophen (Percocet 10-325 mg Tablet), 1 EACH PO TID, ( Reported) Oxycodone Hcl/Acetaminophen (Endocet 10-325 Mg Tablet), 1 TAB ORAL Q4H, ( Reported) Paroxetine Hcl (Paroxetine Hcl), 40 MG ORAL DAILY, (Reported) Raltegravir Potassium (Isentress), 400 MG ORAL TWICE A DAY, (Reported) Ritonavir* (Norvir*), 100 MG ORAL TWICE A DAY, (Reported) Tamsulosin Hcl (Tamsulosin Hcl*), 0.4 MG ORAL BEDTIME, (Reported) Valacyclovir Hcl* (Valtrex*), 1,000 MG ORAL DAILY, (Reported) Scheduled PRN Eszopiclone (Lunesta), 3 MG ORAL BEDTIME PRN for Insomnia, (Reported) Ondansetron Odt* (Zofran Odt*), 8 MG ORAL Q6H PRN for Nausea & Vomiting, ( Reported) Miscellaneous Medications Elviteg/Jihan/Emtric/Tenofo Ala (Genvoya Tablet), 1 EACH PO, (Reported) Mirabegron (Myrbetriq), 25 MG PO, (Reported) Oxybutynin Chloride (Oxybutynin Chloride), 10 MG PO, (Reported) Simethicone (Gas Relief), 125 MG PO, (Reported) Patient History Healthcare decision maker N Resuscitation status Full Code Advanced Directive on File No Past Medical/Surgical History Past Medical/Surgical History: (1) HIV (human immunodeficiency virus infection) (2) Severe protein-calorie malnutrition (3) Degenerative disc disease (4) Neuropathy Review of Systems All Other Systems: negative except mentioned in HPI Physical Exam General Appearance: WD/WN Lines, tubes and drains: peripheral HEENT: normocephalic, atraumatic Neck: non-tender, normal alignment Respiratory/Chest: chest wall non-tender, normal breath sounds Breasts: no masses Cardiovascular/Chest: normal rate, no JVD Abdomen: normal bowel sounds Genitourinary/Rectal: normal genital exam Extremities: normal range of motion Last 24 Hour Vital Signs Date Time Temp Pulse Resp B/P (MAP) Pulse Ox O2 Delivery O2 Flow Rate FiO2 09/01/18 09:36 68 153/89 09/01/18 09:31 68 153/89 09/01/18 09:30 153/89 09/01/18 09:28 68 153/89 (110) 09/01/18 09:00 Nasal Cannula 2.0 09/01/18 08:00 98.4 68 19 164/134 (144) 96 09/01/18 05:48 98.9 09/01/18 04:00 98.9 69 19 137/76 (96) 97 09/01/18 00:00 98.6 73 18 143/83 (103) 96 08/31/18 21:20 73 137/91 08/31/18 21:00 Nasal Cannula 2.0 08/31/18 20:00 97.9 73 17 137/91 (106) 94 08/31/18 18:12 Nasal Cannula 2.0 08/31/18 17:15 98.4 75 14 121/63 98 Room Air 08/31/18 16:52 98.4 75 14 121/63 98 Room Air Intake and Output 08/31/18 09/01/18 19:00 07:00 Intake Total 360 ml Output Total 600 ml Balance -240 ml Intake Oral 360 ml Output Urine Total 600 ml Laboratory Tests Test 09/01/18 05:10 White Blood Count 5.6 K/UL (4.8-10.8) Red Blood Count 3.70 M/UL (4.70-6.10) L Hemoglobin 12.4 G/DL (14.2-18.0) L Hematocrit 37.2 % (42.0-52.0) L Mean Corpuscular Volume 100 FL (80-99) H Mean Corpuscular Hemoglobin 33.5 PG (27.0-31.0) H Mean Corpuscular Hemoglobin Concent 33.4 G/DL (32.0-36.0) Red Cell Distribution Width 12.6 % (11.6-14.8) Platelet Count 137 K/UL (150-450) L Mean Platelet Volume 8.1 FL (6.5-10.1) Neutrophils (%) (Auto) 68.1 % (45.0-75.0) Lymphocytes (%) (Auto) 18.2 % (20.0-45.0) L Monocytes (%) (Auto) 9.2 % (1.0-10.0) Eosinophils (%) (Auto) 3.9 % (0.0-3.0) H Basophils (%) (Auto) 0.6 % (0.0-2.0) Sodium Level 142 MMOL/L (136-145) Potassium Level 4.7 MMOL/L (3.5-5.1) Chloride Level 108 MMOL/L (98-107) H Carbon Dioxide Level 27 MMOL/L (21-32) Anion Gap 7 mmol/L (5-15) Blood Urea Nitrogen 22 mg/dL (7-18) H Creatinine 1.3 MG/DL (0.55-1.30) Estimat Glomerular Filtration Rate 54.6 mL/min (>60) Glucose Level 84 MG/DL (74-106) Calcium Level 8.7 MG/DL (8.5-10.1) Total Bilirubin 0.2 MG/DL (0.2-1.0) Aspartate Amino Transf (AST/SGOT) 21 U/L (15-37) Alanine Aminotransferase (ALT/SGPT) 16 U/L (12-78) Alkaline Phosphatase 96 U/L (46-116) Total Protein 7.0 G/DL (6.4-8.2) Albumin 3.1 G/DL (3.4-5.0) L Globulin 3.9 g/dL Albumin/Globulin Ratio 0.8 (1.0-2.7) L Triglycerides Level 179 MG/DL (30-150) H Cholesterol Level 170 MG/DL (< 200) LDL Cholesterol 98 mg/dL (<100) HDL Cholesterol 43 MG/DL (40-60) Cholesterol/HDL Ratio 4.0 (3.3-4.4) Thyroid Stimulating Hormone (TSH) 1.305 uiU/mL (0.358-3.740) Height (Feet): 5 Height (Inches): 5.00 Weight (Pounds): 164 Medications Current Medications Medications (Trade) Dose Ordered Sig/Roman Route PRN Reason Start Time Stop Time Status Last Admin Dose Admin Acetaminophen (Tylenol) 650 mg Q4H PRN ORAL fever 08/31/18 16:30 09/30/18 16:29 09/01/18 15:39 Al Hydroxide/Mg Hydroxide (Mylanta II) 30 ml Q6H PRN ORAL dyspepsia 08/31/18 16:30 09/30/18 16:29 Amlodipine Besylate (Norvasc) 10 mg DAILY ORAL 09/01/18 09:00 10/01/18 08:59 09/01/18 09:31 Baclofen (Lioresal) 10 mg THREE TIMES A DAY ORAL 08/31/18 18:00 09/30/18 17:59 09/01/18 13:39 Darunavir (Prezista) 600 mg EVERY 12 HOURS ORAL 09/01/18 15:00 10/01/18 14:59 Dextrose (Dextrose 50%) STAT PRN IV Hypoglycemia 08/31/18 16:30 09/30/18 16:29 Etravirine (Intelence) 200 mg EVERY 12 HOURS ORAL 09/01/18 15:00 10/01/18 14:59 Gabapentin (Neurontin) 600 mg BID ORAL 09/01/18 09:00 10/01/18 08:59 09/01/18 09:30 Lorazepam (Ativan 2mg/ml 1ml) 0.5 mg Q4H PRN IV For Anxiety 08/31/18 16:30 09/07/18 16:29 Losartan Potassium (Cozaar) 50 mg DAILY ORAL 09/01/18 09:00 10/01/18 08:59 09/01/18 09:30 Metoprolol Tartrate (Lopressor) 25 mg EVERY 12 HOURS ORAL 08/31/18 21:00 09/30/18 20:59 09/01/18 09:36 Mirtazapine (Remeron) 15 mg BEDTIME ORAL 08/31/18 21:00 09/30/18 20:59 08/31/18 21:20 Morphine Sulfate (Morphine Sulfate) 1 mg Q4H PRN IVP Moderate Pain (Pain Scale 4-6) 08/31/18 16:30 09/07/18 16:29 09/01/18 12:44 Ondansetron HCl (Zofran) 4 mg Q6H PRN IVP Nausea & Vomiting 08/31/18 16:30 09/30/18 16:29 Phenazopyridine HCl (Pyridium) 100 mg THREE TIMES A DAY ORAL 09/01/18 18:00 10/01/18 17:59 UNV Polyethylene Glycol (Miralax) 17 gm HSPRN PRN ORAL Constipation 08/31/18 16:30 09/30/18 16:29 Ritonavir (Norvir) 100 mg TWICE A DAY ORAL 09/01/18 15:00 10/01/18 14:59 Tamsulosin HCl (Flomax) 0.4 mg BEDTIME ORAL 08/31/18 21:00 09/30/18 20:59 08/31/18 21:20 Valacyclovir HCl (Valtrex) 1,000 mg DAILY ORAL 09/01/18 15:15 10/01/18 15:14 Zolpidem Tartrate (Ambien) 5 mg HSPRN PRN ORAL Insomnia 08/31/18 16:30 09/07/18 16:29 Assessment/Plan Problem List: (1) Sepsis ICD Codes: A41.9 - Sepsis, unspecified organism SNOMED: 21539249 (2) HIV (human immunodeficiency virus infection) ICD Codes: B20 - Human immunodeficiency virus [HIV] disease SNOMED: 70773637 (3) ATN (acute tubular necrosis) ICD Codes: N17.0 - Acute kidney failure with tubular necrosis SNOMED: 10609863 (4) UTI (urinary tract infection) ICD Codes: N39.0 - Urinary tract infection, site not specified SNOMED: 72616216 (5) Degenerative disc disease SNOMED: 36992452 (6) Severe protein-calorie malnutrition ICD Codes: E43 - Unspecified severe protein-calorie malnutrition SNOMED: 844006176 Assessment/Plan mehta culture IV abx resume HIV meds Pyruvate for symptomatic treatment check electrolytes iv hydration dvt prophylaxis Oliverio Rm MD Sep 01, 2018 16:39
--- NOTE | 2018-09-01 16:45 | Consultation ---
History of Present Illness General Date patient seen: Sep 01, 2018 Chief Complaint: Pain Present Illness HPI 68 y/o M with hx of HIV (VL UD per pt), rectal CA, CVA 2004, HTN presents to ED on 08/31 with increased L side flank pain for several days, urinary frequency and dysuria. Allergies: Coded Allergies: CODEINE (Unverified Allergy, Unknown, 11/28/17) EMTRICITABINE (Verified Allergy, Unknown, anxiousness, 08/31/18) SULFAMETHOXAZOLE (Unverified Allergy, Unknown, 10/27/17) TENOFOVIR (Verified Allergy, Unknown, anxiousness, 08/31/18) TRIMETHOPRIM (Unverified Allergy, Unknown, 10/27/17) Medication History Scheduled Acetaminophen* (Tylenol Extra Strength*), 500 MG ORAL Q6H Alendronate Sodium* (Fosamax*), 70 MG ORAL ONCE A WEEK, (Reported) Amlodipine Besylate (Norvasc), 10 MG ORAL DAILY, (Reported) Amoxicillin/Potassium Clav 875-125* (Augmentin 875-125 Tablet*), 1 TAB ORAL DAILY, (Reported) Aspirin* (Aspir 81*), 81 MG ORAL DAILY, (Reported) Baclofen* (Baclofen*), 10 MG ORAL THREE TIMES A DAY, (Reported) Calcium Carbonate (Oysco-500), 500 MG PO DAILY, (Reported) Cephalexin* (Keflex*), 500 MG ORAL EVERY 12 HOURS Cephalexin* (Keflex*), 500 MG ORAL EVERY 12 HOURS Cholecalciferol (Vitamin D3)* (Vitamin D*), 2,000 UNITS ORAL DAILY, (Reported) Clotrimazole* (Lotrimin*), 1 APPLIC TOPIC TWICE A DAY, (Reported) Darunavir Ethanolate* (Prezista*), 600 MG ORAL EVERY 12 HOURS, (Reported) Darunavir Ethanolate* (Prezista*), 800 MG ORAL EVERY 12 HOURS, (Reported) Dutasteride (Avodart), 0.5 MG ORAL DAILY, (Reported) Entecavir* (Baraclude*), 1 MG ORAL DAILY, (Reported) Etravirine* (Intelence*), 200 MG ORAL EVERY 12 HOURS, (Reported) Finasteride* (Proscar*), 5 MG ORAL DAILY, (Reported) Gabapentin* (Gabapentin*), 600 MG ORAL THREE TIMES A DAY, (Reported) Hydrocortisone/Iodoquin/Aloe#2 (Alcortin A Gel), 48 GM TP QID, (Reported) Levothyroxine Sodium* (Levothyroxine Sodium*), 25 MCG ORAL DAILY, (Reported) Lorazepam* (Lorazepam*), 1 MG ORAL TWICE A DAY, (Reported) Losartan Potassium* (Losartan Potassium*), 50 MG ORAL DAILY, (Reported) Meloxicam* (Meloxicam*), 15 MG PO DAILY, (Reported) Methocarbamol (Methocarbamol), 500 MG PO Q6HR, (Reported) Metoprolol Tartrate* (Metoprolol Tartrate*), 25 MG ORAL EVERY 12 HOURS, ( Reported) Mirtazapine* (Mirtazapine*), 15 MG ORAL BEDTIME, (Reported) Omeprazole (Omeprazole), 20 MG ORAL DAILY, (Reported) Oxycodone HCl/Acetaminophen (Percocet 10-325 mg Tablet), 1 EACH PO TID, ( Reported) Oxycodone Hcl/Acetaminophen (Endocet 10-325 Mg Tablet), 1 TAB ORAL Q4H, ( Reported) Paroxetine Hcl (Paroxetine Hcl), 40 MG ORAL DAILY, (Reported) Raltegravir Potassium (Isentress), 400 MG ORAL TWICE A DAY, (Reported) Ritonavir* (Norvir*), 100 MG ORAL TWICE A DAY, (Reported) Tamsulosin Hcl (Tamsulosin Hcl*), 0.4 MG ORAL BEDTIME, (Reported) Valacyclovir Hcl* (Valtrex*), 1,000 MG ORAL DAILY, (Reported) Scheduled PRN Eszopiclone (Lunesta), 3 MG ORAL BEDTIME PRN for Insomnia, (Reported) Ondansetron Odt* (Zofran Odt*), 8 MG ORAL Q6H PRN for Nausea & Vomiting, ( Reported) Miscellaneous Medications Elviteg/Jihan/Emtric/Tenofo Ala (Genvoya Tablet), 1 EACH PO, (Reported) Mirabegron (Myrbetriq), 25 MG PO, (Reported) Oxybutynin Chloride (Oxybutynin Chloride), 10 MG PO, (Reported) Simethicone (Gas Relief), 125 MG PO, (Reported) Patient History Healthcare decision maker N Resuscitation status Full Code Advanced Directive on File No Patient History Narrative Pmhx: as above Shx: reviewed Fhx: non contributory Review of Systems All Other Systems: negative except mentioned in HPI Physical Exam Physical Exam Narrative General Appearance: normal inspection, alert, Chronically Ill Head: atraumatic ENT: normal ENT inspection, hearing grossly normal, normal voice, dry mucus membranes Neck: normal inspection, full range of motion, supple, no bony tend Respiratory: normal inspection, lungs clear, normal breath sounds, no respiratory distress, no retraction, no wheezing Cardiovascular : regular rate, rhythm, no edema Gastrointestinal: normal inspection, normal bowel sounds, non tender, soft, no guarding, no hernia Genitourinary: no CVA tenderness Musculoskeletal: normal inspection, back normal, normal range of motion Neurologic: normal inspection, alert, oriented x3, responsive, product management intern III-XII nml as tested, speech normal Psychiatric: normal inspection, judgement/insight normal, mood/affect normal Skin: normal inspection, no rash Last 24 Hour Vital Signs Date Time Temp Pulse Resp B/P (MAP) Pulse Ox O2 Delivery O2 Flow Rate FiO2 09/01/18 09:36 68 153/89 09/01/18 09:31 68 153/89 09/01/18 09:30 153/89 09/01/18 09:28 68 153/89 (110) 09/01/18 09:00 Nasal Cannula 2.0 09/01/18 08:00 98.4 68 19 164/134 (144) 96 09/01/18 05:48 98.9 09/01/18 04:00 98.9 69 19 137/76 (96) 97 09/01/18 00:00 98.6 73 18 143/83 (103) 96 08/31/18 21:20 73 137/91 08/31/18 21:00 Nasal Cannula 2.0 08/31/18 20:00 97.9 73 17 137/91 (106) 94 08/31/18 18:12 Nasal Cannula 2.0 08/31/18 17:15 98.4 75 14 121/63 98 Room Air 08/31/18 16:52 98.4 75 14 121/63 98 Room Air Intake and Output 08/31/18 09/01/18 19:00 07:00 Intake Total 360 ml Output Total 600 ml Balance -240 ml Intake Oral 360 ml Output Urine Total 600 ml Laboratory Tests Test 09/01/18 05:10 White Blood Count 5.6 K/UL (4.8-10.8) Red Blood Count 3.70 M/UL (4.70-6.10) L Hemoglobin 12.4 G/DL (14.2-18.0) L Hematocrit 37.2 % (42.0-52.0) L Mean Corpuscular Volume 100 FL (80-99) H Mean Corpuscular Hemoglobin 33.5 PG (27.0-31.0) H Mean Corpuscular Hemoglobin Concent 33.4 G/DL (32.0-36.0) Red Cell Distribution Width 12.6 % (11.6-14.8) Platelet Count 137 K/UL (150-450) L Mean Platelet Volume 8.1 FL (6.5-10.1) Neutrophils (%) (Auto) 68.1 % (45.0-75.0) Lymphocytes (%) (Auto) 18.2 % (20.0-45.0) L Monocytes (%) (Auto) 9.2 % (1.0-10.0) Eosinophils (%) (Auto) 3.9 % (0.0-3.0) H Basophils (%) (Auto) 0.6 % (0.0-2.0) Sodium Level 142 MMOL/L (136-145) Potassium Level 4.7 MMOL/L (3.5-5.1) Chloride Level 108 MMOL/L (98-107) H Carbon Dioxide Level 27 MMOL/L (21-32) Anion Gap 7 mmol/L (5-15) Blood Urea Nitrogen 22 mg/dL (7-18) H Creatinine 1.3 MG/DL (0.55-1.30) Estimat Glomerular Filtration Rate 54.6 mL/min (>60) Glucose Level 84 MG/DL (74-106) Calcium Level 8.7 MG/DL (8.5-10.1) Total Bilirubin 0.2 MG/DL (0.2-1.0) Aspartate Amino Transf (AST/SGOT) 21 U/L (15-37) Alanine Aminotransferase (ALT/SGPT) 16 U/L (12-78) Alkaline Phosphatase 96 U/L (46-116) Total Protein 7.0 G/DL (6.4-8.2) Albumin 3.1 G/DL (3.4-5.0) L Globulin 3.9 g/dL Albumin/Globulin Ratio 0.8 (1.0-2.7) L Triglycerides Level 179 MG/DL (30-150) H Cholesterol Level 170 MG/DL (< 200) LDL Cholesterol 98 mg/dL (<100) HDL Cholesterol 43 MG/DL (40-60) Cholesterol/HDL Ratio 4.0 (3.3-4.4) Thyroid Stimulating Hormone (TSH) 1.305 uiU/mL (0.358-3.740) Height (Feet): 5 Height (Inches): 5.00 Weight (Pounds): 164 Medications Current Medications Medications (Trade) Dose Ordered Sig/Roman Route PRN Reason Start Time Stop Time Status Last Admin Dose Admin Acetaminophen (Tylenol) 650 mg Q4H PRN ORAL fever 08/31/18 16:30 09/30/18 16:29 09/01/18 15:39 Al Hydroxide/Mg Hydroxide (Mylanta II) 30 ml Q6H PRN ORAL dyspepsia 08/31/18 16:30 09/30/18 16:29 Amlodipine Besylate (Norvasc) 10 mg DAILY ORAL 09/01/18 09:00 10/01/18 08:59 09/01/18 09:31 Baclofen (Lioresal) 10 mg THREE TIMES A DAY ORAL 08/31/18 18:00 09/30/18 17:59 09/01/18 13:39 Darunavir (Prezista) 600 mg EVERY 12 HOURS ORAL 09/01/18 15:00 10/01/18 14:59 Dextrose (Dextrose 50%) STAT PRN IV Hypoglycemia 08/31/18 16:30 09/30/18 16:29 Etravirine (Intelence) 200 mg EVERY 12 HOURS ORAL 09/01/18 15:00 10/01/18 14:59 Gabapentin (Neurontin) 600 mg BID ORAL 09/01/18 09:00 10/01/18 08:59 09/01/18 09:30 Lorazepam (Ativan 2mg/ml 1ml) 0.5 mg Q4H PRN IV For Anxiety 08/31/18 16:30 09/07/18 16:29 Losartan Potassium (Cozaar) 50 mg DAILY ORAL 09/01/18 09:00 10/01/18 08:59 09/01/18 09:30 Metoprolol Tartrate (Lopressor) 25 mg EVERY 12 HOURS ORAL 08/31/18 21:00 09/30/18 20:59 09/01/18 09:36 Mirtazapine (Remeron) 15 mg BEDTIME ORAL 08/31/18 21:00 09/30/18 20:59 08/31/18 21:20 Morphine Sulfate (Morphine Sulfate) 1 mg Q4H PRN IVP Moderate Pain (Pain Scale 4-6) 08/31/18 16:30 09/07/18 16:29 09/01/18 12:44 Ondansetron HCl (Zofran) 4 mg Q6H PRN IVP Nausea & Vomiting 08/31/18 16:30 09/30/18 16:29 Polyethylene Glycol (Miralax) 17 gm HSPRN PRN ORAL Constipation 08/31/18 16:30 09/30/18 16:29 Ritonavir (Norvir) 100 mg TWICE A DAY ORAL 09/01/18 15:00 10/01/18 14:59 Tamsulosin HCl (Flomax) 0.4 mg BEDTIME ORAL 08/31/18 21:00 09/30/18 20:59 08/31/18 21:20 Valacyclovir HCl (Valtrex) 1,000 mg DAILY ORAL 09/01/18 15:15 10/01/18 15:14 Zolpidem Tartrate (Ambien) 5 mg HSPRN PRN ORAL Insomnia 08/31/18 16:30 09/07/18 16:29 Assessment/Plan Assessment/Plan Abx: Ceftriaxone 08/31 x1 Assessment: UTI (frequency, dysuria) -u/a wbc 10-15, shirley neg, leuk +3; ucx >100K GNR Afebrile No leukocytosis HIV- on ARV (per pt VL UD) -11/2017 CD4 323 hx of rectal CA CVA 2004 HTN Plan: -Continue empiric Ceftriaxone #2 pending urine culture -Contiue ARV (pharmacist to clarify with HIV provider which regimen he is currently taking as pt presents with multiple different medications list) -f/u cx -Monitor CBC/CMP, temperatures Thank you for this consultation. Will continue to follow along with you. Discussed with RN. Miarnda Cordero M.D. Sep 01, 2018 16:45
--- NOTE | 2018-09-01 18:37 | History & Physical ---
History and Physical History & Physicial Carlos Barragan MD Sep 01, 2018 18:37
[2018-09-01] MEDS: cefTRIAXone 1 GM in D5W 55 ML IVPB SCH (19:04)
[2018-09-01 20:00] VITALS: BP 151/85
[2018-09-01] MEDS: Tamsulosin 0.4mg cap ORAL SCH (21:25)
[2018-09-01] MEDS: valACYclovir HCL 500mg tab ORAL SCH (21:25)
[2018-09-01] MEDS: INTELENCE 200 MG ORAL SCH (21:26)
[2018-09-01] MEDS: PREZISTA 800 MG ORAL SCH (21:26)
[2018-09-02] VITALS: BP 129/70
[2018-09-02] MEDS: Morphine Sulfate 2mg/ml Inj(IV/IM USE ONLY) IVP PRN ×3 (02:30→16:54)
--- NOTE | 2018-09-02 03:00 | History and Physical Report ---
DATE OF ADMISSION: 08/31/2018 CHIEF COMPLAINT: Left flank pain. HISTORY OF PRESENT ILLNESS: This is a 68-year-old gentleman with past medical history significant for HIV, rectal cancer, hypertension, history of CVA with TIA, major depression, and anxiety who presented to the hospital complaining about the left flank pain over the past several days. He reports that he has been having similar symptoms in the past, having increased urine frequency, increased pain upon urination. He stated that from his HIV standpoint, his viral loads are undetectable and CD4 counts are stable, having prior history of arthritis. The patient shortly after initial evaluation in emergency was admitted to the hospital with left flank pain, possibly due to the acute UTI, possible pyelo. PAST MEDICAL HISTORY/PAST SURGICAL HISTORY: As above. History of HIV, well controlled on retroviral medication; rectal CA; hypertension; CVA; TIA; major depression; anxiety. MEDICATIONS: At home, please refer to medication reconciliation. ALLERGIES: To codeine, emtricitabine, Bactrim, tenofovir, and triamterene. REVIEW OF SYSTEMS: Mostly as above. Denies any chest pain. Denies any shortness of breath. Complained about the left flank pain. Denies any hemoptysis or hematochezia. Denies any bright red blood per rectum. FAMILY HISTORY: Noncontributory. SOCIAL HISTORY: No smoking, alcohol, or drugs at this time. PHYSICAL EXAMINATION: VITAL SIGNS: On admission, temperature 98.1, pulse of 82, respirations 16, blood pressure 156/82. GENERAL: The patient awake, responsive, in no acute distress. HEAD AND NECK: Pupils equal and reactive to light. Extraocular movements intact. Right eye has ptosis. Neck was supple. No JVD. LUNGS: Good air entry. No wheezing or rales. HEART: S1, S2. Regular rate and rhythm. No murmur or gallops. ABDOMEN: Soft, nondistended, nontender. Positive bowel sounds. Left flank tenderness on deep palpation. No rebound tenderness. No fluid shift. EXTREMITIES: No cyanosis, clubbing, or edema. NEUROLOGIC: Cranial nerves II to XII grossly intact. Motor is 5/5 in all extremities. RECTAL: Refused and deferred. GENITOURINARY: Refused and deferred. PSYCHIATRIC: Mood and affect is intact. LABORATORY AND DIAGNOSTIC DATA: On admission from the ER is significant for WBC of 6.2, hemoglobin 12, hematocrit 36, platelet is 136. Sodium 141, potassium 3.8, chloride 106, bicarbonate 27, BUN 32, creatinine 1.6, glucose is . Troponin 0.02. Lipase is 111. PT of 10, INR 1.0, PTT of 26. UA is +2 protein, +3 leukocytes, 10 to 15 wbc's. The patient had a duplex of lower extremity, no acute DVT was identified. ASSESSMENT: 1. Left flank pain, possibly due to the acute UTI. 2. Acute kidney injury with ATN, most likely secondary to the prerenal azotemia with dehydration. 3. HIV. 4. Rectal CA. 5. Hypertension. 6. Major depression. 7. Anxiety. 8. History of CVA in in 2004. PLAN: 1. Admit the patient to medical floor. 2. We will follow up with the ID consultation, Dr. Cordero. 3. Broad-spectrum antibiotics with Rocephin. 4. Follow up with cultures. 5. Continue home medication. 6. Discussed with the patient with regard to plan of care. 7. Code status is Full Code. 8. DVT prophylaxis. Heparin subcutaneous. 9. I advised the patient to become more mobilized and ambulatory with the nurse mostly and we will monitor laboratory as well as culture. Carlos Barragan M.D. DR: MICHOACANO JOB#: [id number] CC:
[2018-09-02 04:00] VITALS: BP 163/95
[2018-09-02 08:00] VITALS: BP 111/81
[2018-09-02] MEDS: INTELENCE 200 MG ORAL SCH ×2 (08:51→20:34)
[2018-09-02] MEDS: GENVOYA ORAL SCH (08:51)
[2018-09-02] MEDS: Losartan 50mg tab ORAL SCH (08:52)
[2018-09-02] MEDS: PREZISTA 800 MG ORAL SCH ×2 (08:52→20:33)
[2018-09-02] MEDS: Metoprolol 25mg tab ORAL SCH ×2 (08:53→20:35)
[2018-09-02 12:00] VITALS: BP 157/89
--- NOTE | 2018-09-02 12:00 | Pulmonology Progress Note ---
Assessment/Plan Problems: (1) Sepsis (2) HIV (human immunodeficiency virus infection) (3) ATN (acute tubular necrosis) (4) UTI (urinary tract infection) (5) Degenerative disc disease (6) Severe protein-calorie malnutrition Assessment/Plan improving check electrolytes check cultures pyruvate for dysuria GI evaluation f/u renal parameters. Subjective ROS Limited/Unobtainable: No Constitutional: Reports: no symptoms HEENT: Repors: no symptoms Respiratory: Reports: no symptoms Allergies: Coded Allergies: CODEINE (Unverified Allergy, Unknown, 11/28/17) EMTRICITABINE (Verified Allergy, Unknown, anxiousness, 08/31/18) SULFAMETHOXAZOLE (Unverified Allergy, Unknown, 10/27/17) TENOFOVIR (Verified Allergy, Unknown, anxiousness, 08/31/18) TRIMETHOPRIM (Unverified Allergy, Unknown, 10/27/17) Objective Last 24 Hour Vital Signs Date Time Temp Pulse Resp B/P (MAP) Pulse Ox O2 Delivery O2 Flow Rate FiO2 09/02/18 08:53 90 111/81 09/02/18 08:53 90 111/81 09/02/18 08:52 111/81 09/02/18 08:45 Nasal Cannula 2.0 09/02/18 08:00 97.6 90 18 111/81 (91) 96 09/02/18 04:00 98.7 68 17 163/95 (117) 96 09/02/18 00:00 98.0 90 17 129/70 (89) 98 09/01/18 21:26 68 151/85 09/01/18 21:00 Nasal Cannula 2.0 09/01/18 20:00 99.5 68 20 151/85 (107) 95 09/01/18 19:05 99.5 09/01/18 16:00 101.7 74 22 141/81 (101) 98 Intake and Output 09/01/18 09/02/18 19:00 07:00 Intake Total 600 ml Output Total 650 ml Balance 600 ml -650 ml Other 600 ml Output Urine Total 650 ml # Voids 5 3 # Bowel Movements 1 General Appearance: no acute distress HEENT: normocephalic, atraumatic Respiratory/Chest: chest wall non-tender, lungs clear Cardiovascular: normal peripheral pulses, regular rhythm Abdomen: normal bowel sounds, no mass Skin: no rash Microbiology Date/Time Source Procedure Growth Status 08/31/18 13:35 Urine,Clean Catch Urine Culture - Final Proteus Mirabilis Complete Laboratory Tests 09/02/18 06:40: White Blood Count [Pending], Lymphocytes [Pending], Percent CD3 Cells [Pending] , Absolute CD3 Count [Pending], Percent CD4 Cells [Pending], Absolute CD4 Count [Pending], T-Lymphocyte CD4/CD8 Ratio [Pending], Percent CD8 Cells [Pending], Absolute CD8 Count [Pending] Current Medications Medications (Trade) Dose Ordered Sig/Roman Route PRN Reason Start Time Stop Time Status Last Admin Dose Admin Acetaminophen (Tylenol) 650 mg Q4H PRN ORAL fever 08/31/18 16:30 09/30/18 16:29 09/01/18 15:39 Al Hydroxide/Mg Hydroxide (Mylanta II) 30 ml Q6H PRN ORAL dyspepsia 08/31/18 16:30 09/30/18 16:29 Amlodipine Besylate (Norvasc) 10 mg DAILY ORAL 09/01/18 09:00 10/01/18 08:59 09/01/18 09:31 Baclofen (Lioresal) 10 mg THREE TIMES A DAY ORAL 08/31/18 18:00 09/30/18 17:59 09/02/18 08:51 Ceftriaxone Sodium 1 gm/ Dextrose 55 ml @ 110 mls/hr Q24H IVPB 09/01/18 18:00 09/08/18 17:59 09/01/18 19:04 Dextrose (Dextrose 50%) STAT PRN IV Hypoglycemia 08/31/18 16:30 09/30/18 16:29 Gabapentin (Neurontin) 600 mg BID ORAL 09/01/18 09:00 10/01/18 08:59 09/02/18 08:53 Lorazepam (Ativan 2mg/ml 1ml) 0.5 mg Q4H PRN IV For Anxiety 08/31/18 16:30 09/07/18 16:29 Losartan Potassium (Cozaar) 50 mg DAILY ORAL 09/01/18 09:00 10/01/18 08:59 09/01/18 09:30 Metoprolol Tartrate (Lopressor) 25 mg EVERY 12 HOURS ORAL 08/31/18 21:00 09/30/18 20:59 09/01/18 21:26 Mirtazapine (Remeron) 15 mg BEDTIME ORAL 08/31/18 21:00 09/30/18 20:59 09/01/18 21:25 Morphine Sulfate (Morphine Sulfate) 1 mg Q4H PRN IVP Moderate Pain (Pain Scale 4-6) 08/31/18 16:30 09/07/18 16:29 09/02/18 11:55 Ondansetron HCl (Zofran) 4 mg Q6H PRN IVP Nausea & Vomiting 08/31/18 16:30 09/30/18 16:29 Patient Own Medication (Patient's Own Med) 1 ea BID@0800 ORAL 09/01/18 20:00 10/01/18 19:59 09/02/18 08:51 Patient Own Medication (Patient's Own Med) 1 ea BID@0800,1999 ORAL 09/01/18 20:00 10/01/18 19:59 09/02/18 08:52 Patient Own Medication (Patient's Own Med) 1 ea DAILY@0800 ORAL 09/02/18 08:00 10/02/18 07:59 09/02/18 08:51 Phenazopyridine HCl (Pyridium) 100 mg THREE TIMES A DAY ORAL 09/01/18 18:00 10/01/18 17:59 09/02/18 08:51 Polyethylene Glycol (Miralax) 17 gm HSPRN PRN ORAL Constipation 08/31/18 16:30 09/30/18 16:29 Tamsulosin HCl (Flomax) 0.4 mg BEDTIME ORAL 08/31/18 21:00 09/30/18 20:59 09/01/18 21:25 Valacyclovir HCl (Valtrex) 1,000 mg QHS ORAL 09/01/18 21:00 10/01/18 20:59 09/01/18 21:25 Zolpidem Tartrate (Ambien) 5 mg HSPRN PRN ORAL Insomnia 08/31/18 16:30 09/07/18 16:29 Oliverio Rm MD Sep 02, 2018 12:00
--- NOTE | 2018-09-02 13:30 | Infectious Diseases Prog Note ---
Assessment/Plan Assessment/Plan Abx: Ceftriaxone 08/31 x1 Assessment: UTI (frequency, dysuria) -u/a wbc 10-15, shirley neg, leuk +3; ucx >100K PROTEUS MIRABILIS Afebrile No leukocytosis HIV- on ARV (per pt VL UD) -11/2017 CD4 323 hx of rectal CA CVA 2004 HTN Plan: -Continue empiric Ceftriaxone # 3 /-14 on valtrex -Contiue ARV -f/u cx -Monitor CBC/CMP, temperatures - CD4 Subjective Allergies: Coded Allergies: CODEINE (Unverified Allergy, Unknown, 11/28/17) EMTRICITABINE (Verified Allergy, Unknown, anxiousness, 08/31/18) SULFAMETHOXAZOLE (Unverified Allergy, Unknown, 10/27/17) TENOFOVIR (Verified Allergy, Unknown, anxiousness, 08/31/18) TRIMETHOPRIM (Unverified Allergy, Unknown, 10/27/17) Subjective Dysuria + Afebrile Objective Vital Signs Last 24 Hour Vital Signs Date Time Temp Pulse Resp B/P (MAP) Pulse Ox O2 Delivery O2 Flow Rate FiO2 09/02/18 12:25 97.6 09/02/18 12:00 98.1 76 18 157/89 (111) 98 09/02/18 08:53 90 111/81 09/02/18 08:53 90 111/81 09/02/18 08:52 111/81 09/02/18 08:45 Nasal Cannula 2.0 09/02/18 08:00 97.6 90 18 111/81 (91) 96 09/02/18 04:00 98.7 68 17 163/95 (117) 96 09/02/18 00:00 98.0 90 17 129/70 (89) 98 09/01/18 21:26 68 151/85 09/01/18 21:00 Nasal Cannula 2.0 09/01/18 20:00 99.5 68 20 151/85 (107) 95 09/01/18 19:05 99.5 09/01/18 16:00 101.7 74 22 141/81 (101) 98 Height (Feet): 5 Height (Inches): 5.00 Weight (Pounds): 164 HEENT: atraumatic Respiratory/Chest: normal breath sounds Cardiovascular: normal peripheral pulses Abdomen: soft, non tender Microbiology Date/Time Source Procedure Growth Status 08/31/18 13:35 Urine,Clean Catch Urine Culture - Final Proteus Mirabilis Complete Laboratory Tests Test 09/02/18 06:40 White Blood Count Pending Lymphocytes Pending Percent CD3 Cells Pending Absolute CD3 Count Pending Percent CD4 Cells Pending Absolute CD4 Count Pending T-Lymphocyte CD4/CD8 Ratio Pending Percent CD8 Cells Pending Absolute CD8 Count Pending Current Medications Medications (Trade) Dose Ordered Sig/Roman Route PRN Reason Start Time Stop Time Status Last Admin Dose Admin Acetaminophen (Tylenol) 650 mg Q4H PRN ORAL fever 08/31/18 16:30 09/30/18 16:29 09/01/18 15:39 Al Hydroxide/Mg Hydroxide (Mylanta II) 30 ml Q6H PRN ORAL dyspepsia 08/31/18 16:30 09/30/18 16:29 Amlodipine Besylate (Norvasc) 10 mg DAILY ORAL 09/01/18 09:00 10/01/18 08:59 09/01/18 09:31 Baclofen (Lioresal) 10 mg THREE TIMES A DAY ORAL 08/31/18 18:00 09/30/18 17:59 09/02/18 08:51 Ceftriaxone Sodium 1 gm/ Dextrose 55 ml @ 110 mls/hr Q24H IVPB 09/01/18 18:00 09/08/18 17:59 09/01/18 19:04 Dextrose (Dextrose 50%) STAT PRN IV Hypoglycemia 08/31/18 16:30 09/30/18 16:29 Gabapentin (Neurontin) 600 mg BID ORAL 09/01/18 09:00 10/01/18 08:59 09/02/18 08:53 Lorazepam (Ativan 2mg/ml 1ml) 0.5 mg Q4H PRN IV For Anxiety 08/31/18 16:30 09/07/18 16:29 Losartan Potassium (Cozaar) 50 mg DAILY ORAL 09/01/18 09:00 10/01/18 08:59 09/01/18 09:30 Metoprolol Tartrate (Lopressor) 25 mg EVERY 12 HOURS ORAL 08/31/18 21:00 09/30/18 20:59 09/01/18 21:26 Mirtazapine (Remeron) 15 mg BEDTIME ORAL 08/31/18 21:00 09/30/18 20:59 09/01/18 21:25 Morphine Sulfate (Morphine Sulfate) 1 mg Q4H PRN IVP Moderate Pain (Pain Scale 4-6) 08/31/18 16:30 09/07/18 16:29 09/02/18 11:55 Ondansetron HCl (Zofran) 4 mg Q6H PRN IVP Nausea & Vomiting 08/31/18 16:30 09/30/18 16:29 Patient Own Medication (Patient's Own Med) 1 ea BID@0800 ORAL 09/01/18 20:00 10/01/18 19:59 09/02/18 08:51 Patient Own Medication (Patient's Own Med) 1 ea BID@0800,1999 ORAL 09/01/18 20:00 10/01/18 19:59 09/02/18 08:52 Patient Own Medication (Patient's Own Med) 1 ea DAILY@0800 ORAL 09/02/18 08:00 10/02/18 07:59 09/02/18 08:51 Phenazopyridine HCl (Pyridium) 100 mg THREE TIMES A DAY ORAL 09/01/18 18:00 10/01/18 17:59 09/02/18 08:51 Polyethylene Glycol (Miralax) 17 gm HSPRN PRN ORAL Constipation 08/31/18 16:30 09/30/18 16:29 Tamsulosin HCl (Flomax) 0.4 mg BEDTIME ORAL 08/31/18 21:00 09/30/18 20:59 09/01/18 21:25 Valacyclovir HCl (Valtrex) 1,000 mg QHS ORAL 09/01/18 21:00 10/01/18 20:59 09/01/18 21:25 Zolpidem Tartrate (Ambien) 5 mg HSPRN PRN ORAL Insomnia 08/31/18 16:30 09/07/18 16:29 José Yan MD Sep 02, 2018 13:30
[2018-09-02 16:00] VITALS: BP 138/69
[2018-09-02] MEDS: cefTRIAXone 1 GM in D5W 55 ML IVPB SCH (16:59)
--- NOTE | 2018-09-02 18:16 | Internal Med Progress Note ---
Subjective Date of Service: Sep 02, 2018 Physician Name Trey Whitaker Attending Physician Carlos Barragan MD Current Medications Medications (Trade) Dose Ordered Sig/Roman Route PRN Reason Start Time Stop Time Status Last Admin Dose Admin Acetaminophen (Tylenol) 650 mg Q4H PRN ORAL fever 08/31/18 16:30 09/30/18 16:29 09/01/18 15:39 Al Hydroxide/Mg Hydroxide (Mylanta II) 30 ml Q6H PRN ORAL dyspepsia 08/31/18 16:30 09/30/18 16:29 Amlodipine Besylate (Norvasc) 10 mg DAILY ORAL 09/01/18 09:00 10/01/18 08:59 09/01/18 09:31 Baclofen (Lioresal) 10 mg THREE TIMES A DAY ORAL 08/31/18 18:00 09/30/18 17:59 09/02/18 17:00 Ceftriaxone Sodium 1 gm/ Dextrose 55 ml @ 110 mls/hr Q24H IVPB 09/01/18 18:00 09/08/18 17:59 09/02/18 16:59 Dextrose (Dextrose 50%) STAT PRN IV Hypoglycemia 08/31/18 16:30 09/30/18 16:29 Gabapentin (Neurontin) 600 mg BID ORAL 09/01/18 09:00 10/01/18 08:59 09/02/18 16:59 Lorazepam (Ativan 2mg/ml 1ml) 0.5 mg Q4H PRN IV For Anxiety 08/31/18 16:30 09/07/18 16:29 Losartan Potassium (Cozaar) 50 mg DAILY ORAL 09/01/18 09:00 10/01/18 08:59 09/01/18 09:30 Metoprolol Tartrate (Lopressor) 25 mg EVERY 12 HOURS ORAL 08/31/18 21:00 09/30/18 20:59 09/01/18 21:26 Mirtazapine (Remeron) 15 mg BEDTIME ORAL 08/31/18 21:00 09/30/18 20:59 09/01/18 21:25 Morphine Sulfate (Morphine Sulfate) 1 mg Q4H PRN IVP Moderate Pain (Pain Scale 4-6) 08/31/18 16:30 09/07/18 16:29 09/02/18 16:54 Ondansetron HCl (Zofran) 4 mg Q6H PRN IVP Nausea & Vomiting 08/31/18 16:30 09/30/18 16:29 Patient Own Medication (Patient's Own Med) 1 ea BID@0800,1999 ORAL 09/01/18 20:00 10/01/18 19:59 09/02/18 08:51 Patient Own Medication (Patient's Own Med) 1 ea BID@0800 ORAL 09/01/18 20:00 10/01/18 19:59 09/02/18 08:52 Patient Own Medication (Patient's Own Med) 1 ea DAILY@0800 ORAL 09/02/18 08:00 10/02/18 07:59 09/02/18 08:51 Phenazopyridine HCl (Pyridium) 100 mg THREE TIMES A DAY ORAL 09/01/18 18:00 10/01/18 17:59 09/02/18 17:00 Polyethylene Glycol (Miralax) 17 gm HSPRN PRN ORAL Constipation 08/31/18 16:30 09/30/18 16:29 Tamsulosin HCl (Flomax) 0.4 mg BEDTIME ORAL 08/31/18 21:00 09/30/18 20:59 09/01/18 21:25 Valacyclovir HCl (Valtrex) 1,000 mg QHS ORAL 09/01/18 21:00 10/01/18 20:59 09/01/18 21:25 Zolpidem Tartrate (Ambien) 5 mg HSPRN PRN ORAL Insomnia 08/31/18 16:30 09/07/18 16:29 Allergies: Coded Allergies: CODEINE (Unverified Allergy, Unknown, 11/28/17) EMTRICITABINE (Verified Allergy, Unknown, anxiousness, 08/31/18) SULFAMETHOXAZOLE (Unverified Allergy, Unknown, 10/27/17) TENOFOVIR (Verified Allergy, Unknown, anxiousness, 08/31/18) TRIMETHOPRIM (Unverified Allergy, Unknown, 10/27/17) ROS Limited/Unobtainable: No Constitutional: Reports: no symptoms HEENT: Reports: no symptoms Cardiovascular: Reports: no symptoms Respiratory: Reports: no symptoms Gastrointestinal/Abdominal: Reports: no symptoms Genitourinary: Reports: no symptoms 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: Reports: no symptoms Subjective 68 YO M admitted with flank pain. Cover for Int med-DR Barragan Objective Last Vital Signs Date Time Temp Pulse Resp B/P (MAP) Pulse Ox O2 Delivery O2 Flow Rate FiO2 09/02/18 17:24 97.8 09/02/18 16:00 82 20 138/69 (92) 98 09/02/18 08:45 Nasal Cannula 2.0 Laboratory Tests Test 09/02/18 06:40 White Blood Count Pending Lymphocytes Pending Percent CD3 Cells Pending Absolute CD3 Count Pending Percent CD4 Cells Pending Absolute CD4 Count Pending T-Lymphocyte CD4/CD8 Ratio Pending Percent CD8 Cells Pending Absolute CD8 Count Pending Microbiology Date/Time Source Procedure Growth Status 08/31/18 13:35 Urine,Clean Catch Urine Culture - Final Proteus Mirabilis Complete Intake and Output 09/01/18 09/02/18 19:00 07:00 Intake Total 600 ml Output Total 650 ml Balance 600 ml -650 ml Other 600 ml Output Urine Total 650 ml # Voids 5 3 # Bowel Movements 1 Objective PHYSICAL EXAMINATION: GENERAL: The patient awake, responsive, in no acute distress. HEAD AND NECK: Pupils equal and reactive to light. Extraocular movements intact. Right eye has ptosis. Neck was supple. No JVD. LUNGS: Good air entry. No wheezing or rales. HEART: S1, S2. Regular rate and rhythm. No murmur or gallops. ABDOMEN: Soft, nondistended, nontender. Positive bowel sounds. Left flank tenderness on deep palpation. No rebound tenderness. No fluid shift. EXTREMITIES: No cyanosis, clubbing, or edema. NEUROLOGIC: Cranial nerves II to XII grossly intact. Motor is 5/5 in all extremities. RECTAL: Refused and deferred. GENITOURINARY: Refused and deferred. PSYCHIATRIC: Mood and affect is intact. Assessment/Plan Assessment/Plan ASSESSMENT: 1. Left flank pain-pyelonephritis acute UTI-proteus mirabilis 2. Acute kidney injury with ATN, most likely secondary to the prerenal azotemia with dehydration. 3. HIV. 4. Rectal CA. 5. Hypertension. 6. Major depression. 7. Anxiety. 8. History of CVA in in 2004. PLAN: 1. Admit the patient to medical floor. 2. We will follow up with the ID consultation, Dr. Cordero. 3. Continue Rocephin per ID 4. Follow up with cultures. 5. Continue home medication. 6. Discussed with the patient with regard to plan of care. 7. Code status is Full Code. 8. DVT prophylaxis. Heparin subcutaneous. 9. I advised the patient to become more mobilized and ambulatory with the nurse mostly and we will monitor laboratory as well as culture. Trey Whitaker MD Sep 02, 2018 18:16
[2018-09-02 20:00] VITALS: BP 146/72
[2018-09-02] MEDS: Tamsulosin 0.4mg cap ORAL SCH (20:33)
[2018-09-02] MEDS: valACYclovir HCL 500mg tab ORAL SCH (20:33)
[2018-09-03] VITALS: BP 151/79
[2018-09-03] MEDS: Morphine Sulfate 2mg/ml Inj(IV/IM USE ONLY) IVP PRN ×3 (01:54→17:22)
[2018-09-03 04:00] VITALS: BP 149/88
[2018-09-03 07:48] LABS: BASOPHILS % (AUTO) 0.7 % (0.0-2.0); EOSINOPHILS % (AUTO) 3.3 % (0.0-3.0); HEMATOCRIT 40.9 % (42.0-52.0); HEMOGLOBIN 13.9 G/DL (14.2-18.0); LYMPHOCYTES % (AUTO) 22.7 % (20.0-45.0); MEAN CORPUSCULAR VOLUME 98 FL (80-99); MONOCYTES % (AUTO) 7.5 % (1.0-10.0); NEUTROPHILS % (AUTO) 65.8 % (45.0-75.0); PLATELET COUNT 182 K/UL (150-450); RED BLOOD COUNT 4.18 M/UL (4.70-6.10); RED CELL DISTRIBUTION WIDTH 12.2 % (11.6-14.8); WHITE BLOOD COUNT 7.9 K/UL (4.8-10.8)
[2018-09-03 08:00] VITALS: BP 118/75
[2018-09-03 08:12] LABS: ANION GAP 10 mmol/L (5-15); BLOOD UREA NITROGEN 19 mg/dL (7-18); CALCIUM 9.1 MG/DL (8.5-10.1); CARBON DIOXIDE 25 MMOL/L (21-32); CHLORIDE 109 MMOL/L (98-107); CREATININE 1.2 MG/DL (0.55-1.30); POTASSIUM 4.2 MMOL/L (3.5-5.1); SODIUM 143 MMOL/L (136-145)
[2018-09-03] MEDS: PREZISTA 800 MG ORAL SCH ×2 (08:59→20:07)
[2018-09-03] MEDS: INTELENCE 200 MG ORAL SCH ×2 (09:00→20:07)
[2018-09-03] MEDS: GENVOYA ORAL SCH (09:00)
[2018-09-03] MEDS: Metoprolol 25mg tab ORAL SCH ×2 (09:01→20:08)
[2018-09-03] MEDS: Losartan 50mg tab ORAL SCH (09:01)
[2018-09-03 12:00] VITALS: BP 96/69
[2018-09-03 16:00] VITALS: BP 120/82
--- NOTE | 2018-09-03 16:20 | Pulmonology Progress Note ---
Assessment/Plan Problems: (1) Sepsis (2) HIV (human immunodeficiency virus infection) (3) ATN (acute tubular necrosis) (4) UTI (urinary tract infection) (5) Degenerative disc disease (6) Severe protein-calorie malnutrition Assessment/Plan doing better pt/ot improving check electrolytes check cultures pyruvate for dysuria GI evaluation f/u renal parameters. Subjective ROS Limited/Unobtainable: No Constitutional: Reports: no symptoms HEENT: Repors: no symptoms Respiratory: Reports: no symptoms Allergies: Coded Allergies: CODEINE (Unverified Allergy, Unknown, 11/28/17) EMTRICITABINE (Verified Allergy, Unknown, anxiousness, 08/31/18) SULFAMETHOXAZOLE (Unverified Allergy, Unknown, 10/27/17) TENOFOVIR (Verified Allergy, Unknown, anxiousness, 08/31/18) TRIMETHOPRIM (Unverified Allergy, Unknown, 10/27/17) Objective Last 24 Hour Vital Signs Date Time Temp Pulse Resp B/P (MAP) Pulse Ox O2 Delivery O2 Flow Rate FiO2 09/03/18 12:00 98.2 90 18 96/69 (78) 97 09/03/18 09:32 98.1 09/03/18 09:01 63 118/75 09/03/18 09:01 118/75 09/03/18 09:00 Nasal Cannula 2.0 09/03/18 09:00 63 118/75 09/03/18 08:00 98.1 63 20 118/75 (89) 97 09/03/18 04:00 97.2 97 20 149/88 (108) 97 09/03/18 00:00 98.3 64 20 151/79 (103) 94 09/02/18 21:00 Nasal Cannula 2.0 09/02/18 20:35 71 146/72 09/02/18 20:00 98.4 71 20 146/72 (96) 98 Intake and Output 09/02/18 09/03/18 19:00 07:00 Intake Total 500 ml 240 ml Output Total 700 ml Balance -200 ml 240 ml Intake Oral 500 ml 240 ml Output Urine Total 700 ml # Voids 3 4 # Bowel Movements 1 General Appearance: WD/WN HEENT: normocephalic Respiratory/Chest: chest wall non-tender Cardiovascular: normal peripheral pulses, regular rhythm Abdomen: no organomegaly Genitourinary: normal external genitalia Skin: no rash, no ulcers Laboratory Tests 09/03/18 06:45: White Blood Count 7.9, Red Blood Count 4.18L, Hemoglobin 13.9L, Hematocrit 40.9L , Mean Corpuscular Volume 98, Mean Corpuscular Hemoglobin 33.2H, Mean Corpuscular Hemoglobin Concent 34.0, Red Cell Distribution Width 12.2, Platelet Count 182, Mean Platelet Volume 8.1, Neutrophils (%) (Auto) 65.8, Lymphocytes (% ) (Auto) 22.7, Monocytes (%) (Auto) 7.5, Eosinophils (%) (Auto) 3.3H, Basophils (%) (Auto) 0.7, Sodium Level 143, Potassium Level 4.2, Chloride Level 109H, Carbon Dioxide Level 25, Anion Gap 10, Blood Urea Nitrogen 19H, Creatinine 1.2, Estimat Glomerular Filtration Rate 59.9, Glucose Level 99, Calcium Level 9.1 Current Medications Medications (Trade) Dose Ordered Sig/Roman Route PRN Reason Start Time Stop Time Status Last Admin Dose Admin Acetaminophen (Tylenol) 650 mg Q4H PRN ORAL fever 08/31/18 16:30 09/30/18 16:29 09/01/18 15:39 Al Hydroxide/Mg Hydroxide (Mylanta II) 30 ml Q6H PRN ORAL dyspepsia 08/31/18 16:30 09/30/18 16:29 Amlodipine Besylate (Norvasc) 10 mg DAILY ORAL 09/01/18 09:00 10/01/18 08:59 09/03/18 09:00 Baclofen (Lioresal) 10 mg THREE TIMES A DAY ORAL 08/31/18 18:00 09/30/18 17:59 09/03/18 13:21 Ceftriaxone Sodium 1 gm/ Dextrose 55 ml @ 110 mls/hr Q24H IVPB 09/01/18 18:00 09/08/18 17:59 09/02/18 16:59 Dextrose (Dextrose 50%) STAT PRN IV Hypoglycemia 08/31/18 16:30 09/30/18 16:29 Gabapentin (Neurontin) 600 mg BID ORAL 09/01/18 09:00 10/01/18 08:59 09/03/18 09:01 Lorazepam (Ativan 2mg/ml 1ml) 0.5 mg Q4H PRN IV For Anxiety 08/31/18 16:30 09/07/18 16:29 Losartan Potassium (Cozaar) 50 mg DAILY ORAL 09/01/18 09:00 10/01/18 08:59 09/03/18 09:01 Metoprolol Tartrate (Lopressor) 25 mg EVERY 12 HOURS ORAL 08/31/18 21:00 09/30/18 20:59 09/03/18 09:01 Mirtazapine (Remeron) 15 mg BEDTIME ORAL 08/31/18 21:00 09/30/18 20:59 09/02/18 20:33 Morphine Sulfate (Morphine Sulfate) 1 mg Q4H PRN IVP Moderate Pain (Pain Scale 4-6) 08/31/18 16:30 09/07/18 16:29 09/03/18 09:02 Ondansetron HCl (Zofran) 4 mg Q6H PRN IVP Nausea & Vomiting 08/31/18 16:30 09/30/18 16:29 Patient Own Medication (Patient's Own Med) 1 ea BID@0800 ORAL 09/01/18 20:00 10/01/18 19:59 09/03/18 08:59 Patient Own Medication (Patient's Own Med) 1 ea BID@0800,1999 ORAL 09/01/18 20:00 10/01/18 19:59 09/03/18 09:00 Patient Own Medication (Patient's Own Med) 1 ea DAILY@0800 ORAL 09/02/18 08:00 10/02/18 07:59 09/03/18 09:00 Phenazopyridine HCl (Pyridium) 100 mg THREE TIMES A DAY ORAL 09/01/18 18:00 10/01/18 17:59 09/03/18 13:21 Polyethylene Glycol (Miralax) 17 gm HSPRN PRN ORAL Constipation 08/31/18 16:30 09/30/18 16:29 Tamsulosin HCl (Flomax) 0.4 mg BEDTIME ORAL 08/31/18 21:00 09/30/18 20:59 09/02/18 20:33 Valacyclovir HCl (Valtrex) 1,000 mg QHS ORAL 09/01/18 21:00 10/01/18 20:59 09/02/18 20:33 Zolpidem Tartrate (Ambien) 5 mg HSPRN PRN ORAL Insomnia 08/31/18 16:30 09/07/18 16:29 Olvierio Rm MD Sep 03, 2018 16:20
--- NOTE | 2018-09-03 17:11 | Internal Med Progress Note ---
Subjective Date of Service: Sep 03, 2018 Physician Name Trey Whitaker Attending Physician Carlos Barragan MD Current Medications Medications (Trade) Dose Ordered Sig/Roman Route PRN Reason Start Time Stop Time Status Last Admin Dose Admin Acetaminophen (Tylenol) 650 mg Q4H PRN ORAL fever 08/31/18 16:30 09/30/18 16:29 09/01/18 15:39 Al Hydroxide/Mg Hydroxide (Mylanta II) 30 ml Q6H PRN ORAL dyspepsia 08/31/18 16:30 09/30/18 16:29 Al Hydroxide/Mg Hydroxide (Mylanta) 30 ml Q4H PRN ORAL Heartburn 09/03/18 17:00 10/03/18 16:59 Amlodipine Besylate (Norvasc) 10 mg DAILY ORAL 09/01/18 09:00 10/01/18 08:59 09/03/18 09:00 Baclofen (Lioresal) 10 mg THREE TIMES A DAY ORAL 08/31/18 18:00 09/30/18 17:59 09/03/18 13:21 Ceftriaxone Sodium 1 gm/ Dextrose 55 ml @ 110 mls/hr Q24H IVPB 09/01/18 18:00 09/08/18 17:59 09/02/18 16:59 Dextrose (Dextrose 50%) STAT PRN IV Hypoglycemia 08/31/18 16:30 09/30/18 16:29 Gabapentin (Neurontin) 600 mg BID ORAL 09/01/18 09:00 10/01/18 08:59 09/03/18 09:01 Lorazepam (Ativan 2mg/ml 1ml) 0.5 mg Q4H PRN IV For Anxiety 08/31/18 16:30 09/07/18 16:29 Losartan Potassium (Cozaar) 50 mg DAILY ORAL 09/01/18 09:00 10/01/18 08:59 09/03/18 09:01 Metoprolol Tartrate (Lopressor) 25 mg EVERY 12 HOURS ORAL 08/31/18 21:00 09/30/18 20:59 09/03/18 09:01 Mirtazapine (Remeron) 15 mg BEDTIME ORAL 08/31/18 21:00 09/30/18 20:59 09/02/18 20:33 Morphine Sulfate (Morphine Sulfate) 1 mg Q4H PRN IVP Moderate Pain (Pain Scale 4-6) 08/31/18 16:30 09/07/18 16:29 09/03/18 09:02 Ondansetron HCl (Zofran) 4 mg Q6H PRN IVP Nausea & Vomiting 08/31/18 16:30 09/30/18 16:29 Patient Own Medication (Patient's Own Med) 1 ea BID@08 ORAL 09/01/18 20:00 10/01/18 19:59 09/03/18 08:59 Patient Own Medication (Patient's Own Med) 1 ea BID@0800 ORAL 09/01/18 20:00 10/01/18 19:59 09/03/18 09:00 Patient Own Medication (Patient's Own Med) 1 ea DAILY@0800 ORAL 09/02/18 08:00 10/02/18 07:59 09/03/18 09:00 Phenazopyridine HCl (Pyridium) 100 mg THREE TIMES A DAY ORAL 09/01/18 18:00 10/01/18 17:59 09/03/18 13:21 Polyethylene Glycol (Miralax) 17 gm HSPRN PRN ORAL Constipation 08/31/18 16:30 09/30/18 16:29 Tamsulosin HCl (Flomax) 0.4 mg BEDTIME ORAL 08/31/18 21:00 09/30/18 20:59 09/02/18 20:33 Valacyclovir HCl (Valtrex) 1,000 mg QHS ORAL 09/01/18 21:00 10/01/18 20:59 09/02/18 20:33 Zolpidem Tartrate (Ambien) 5 mg HSPRN PRN ORAL Insomnia 08/31/18 16:30 09/07/18 16:29 Allergies: Coded Allergies: CODEINE (Unverified Allergy, Unknown, 11/28/17) EMTRICITABINE (Verified Allergy, Unknown, anxiousness, 08/31/18) SULFAMETHOXAZOLE (Unverified Allergy, Unknown, 10/27/17) TENOFOVIR (Verified Allergy, Unknown, anxiousness, 08/31/18) TRIMETHOPRIM (Unverified Allergy, Unknown, 10/27/17) ROS Limited/Unobtainable: No Constitutional: Reports: no symptoms HEENT: Reports: no symptoms Cardiovascular: Reports: no symptoms Respiratory: Reports: no symptoms Gastrointestinal/Abdominal: Reports: no symptoms Genitourinary: Reports: no symptoms 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: Reports: no symptoms Subjective 68 YO M admitted with flank pain. Cover for Int Karen Barragan Objective Last Vital Signs Date Time Temp Pulse Resp B/P (MAP) Pulse Ox O2 Delivery O2 Flow Rate FiO2 09/03/18 16:00 98.6 92 20 120/82 (95) 95 09/03/18 09:00 Nasal Cannula 2.0 Laboratory Tests Test 09/03/18 06:45 White Blood Count 7.9 K/UL (4.8-10.8) Red Blood Count 4.18 M/UL (4.70-6.10) L Hemoglobin 13.9 G/DL (14.2-18.0) L Hematocrit 40.9 % (42.0-52.0) L Mean Corpuscular Volume 98 FL (80-99) Mean Corpuscular Hemoglobin 33.2 PG (27.0-31.0) H Mean Corpuscular Hemoglobin Concent 34.0 G/DL (32.0-36.0) Red Cell Distribution Width 12.2 % (11.6-14.8) Platelet Count 182 K/UL (150-450) Mean Platelet Volume 8.1 FL (6.5-10.1) Neutrophils (%) (Auto) 65.8 % (45.0-75.0) Lymphocytes (%) (Auto) 22.7 % (20.0-45.0) Monocytes (%) (Auto) 7.5 % (1.0-10.0) Eosinophils (%) (Auto) 3.3 % (0.0-3.0) H Basophils (%) (Auto) 0.7 % (0.0-2.0) Sodium Level 143 MMOL/L (136-145) Potassium Level 4.2 MMOL/L (3.5-5.1) Chloride Level 109 MMOL/L (98-107) H Carbon Dioxide Level 25 MMOL/L (21-32) Anion Gap 10 mmol/L (5-15) Blood Urea Nitrogen 19 mg/dL (7-18) H Creatinine 1.2 MG/DL (0.55-1.30) Estimat Glomerular Filtration Rate 59.9 mL/min (>60) Glucose Level 99 MG/DL (74-106) Calcium Level 9.1 MG/DL (8.5-10.1) Intake and Output 09/02/18 09/03/18 19:00 07:00 Intake Total 500 ml 240 ml Output Total 700 ml Balance -200 ml 240 ml Intake Oral 500 ml 240 ml Output Urine Total 700 ml # Voids 3 4 # Bowel Movements 1 Objective PHYSICAL EXAMINATION: GENERAL: The patient awake, responsive, in no acute distress. HEAD AND NECK: Pupils equal and reactive to light. Extraocular movements intact. Right eye has ptosis. Neck was supple. No JVD. LUNGS: Good air entry. No wheezing or rales. HEART: S1, S2. Regular rate and rhythm. No murmur or gallops. ABDOMEN: Soft, nondistended, nontender. Positive bowel sounds. Left flank tenderness on deep palpation. No rebound tenderness. No fluid shift. EXTREMITIES: No cyanosis, clubbing, or edema. NEUROLOGIC: Cranial nerves II to XII grossly intact. Motor is 5/5 in all extremities. RECTAL: Refused and deferred. GENITOURINARY: Refused and deferred. PSYCHIATRIC: Mood and affect is intact. Assessment/Plan Assessment/Plan ASSESSMENT: 1. Left flank pain-pyelonephritis acute UTI-proteus mirabilis 2. Acute kidney injury with ATN, most likely secondary to the prerenal azotemia with dehydration. 3. HIV. 4. Rectal CA. 5. Hypertension. 6. Major depression. 7. Anxiety. 8. History of CVA in in 2004. PLAN: 1. Admit the patient to medical floor. 2. We will follow up with the ID consultation, Dr. Cordero. 3. Continue Rocephin per ID 4. Follow up with cultures. 5. Continue home medication. 6. Discussed with the patient with regard to plan of care. 7. Code status is Full Code. 8. DVT prophylaxis. Heparin subcutaneous. 9. I advised the patient to become more mobilized and ambulatory with the nurse mostly and we will monitor laboratory as well as culture. Trey Whitaker MD Sep 03, 2018 17:11
[2018-09-03] MEDS: cefTRIAXone 1 GM in D5W 55 ML IVPB SCH (17:21)
[2018-09-03] MEDS ORDERED: Loperamide 2mg cap ORAL PRN (17:45)
[2018-09-03 20:00] VITALS: BP 133/77
[2018-09-03] MEDS: Tamsulosin 0.4mg cap ORAL SCH (20:08)
[2018-09-03] MEDS: valACYclovir HCL 500mg tab ORAL SCH (20:08)
[2018-09-04] VITALS: BP 154/95
[2018-09-04] MEDS: Morphine Sulfate 2mg/ml Inj(IV/IM USE ONLY) IVP PRN (00:32)
[2018-09-04 04:00] VITALS: BP 149/88
[2018-09-04 07:09] LABS: BASOPHILS % (AUTO) 0.5 % (0.0-2.0); EOSINOPHILS % (AUTO) 0.5 % (0.0-3.0); HEMATOCRIT 44.9 % (42.0-52.0); HEMOGLOBIN 15.2 G/DL (14.2-18.0); MEAN CORPUSCULAR VOLUME 99 FL (80-99); NEUTROPHILS % (AUTO) 76.1 % (45.0-75.0); PLATELET COUNT 208 K/UL (150-450); RED BLOOD COUNT 4.52 M/UL (4.70-6.10); RED CELL DISTRIBUTION WIDTH 12.7 % (11.6-14.8); WHITE BLOOD COUNT 12.7 K/UL (4.8-10.8)
[2018-09-04 07:18] LABS: ANION GAP 11 mmol/L (5-15); BLOOD UREA NITROGEN 29 mg/dL (7-18); CALCIUM 9.7 MG/DL (8.5-10.1); CARBON DIOXIDE 28 MMOL/L (21-32); CHLORIDE 105 MMOL/L (98-107); CREATININE 1.6 MG/DL (0.55-1.30); POTASSIUM 3.9 MMOL/L (3.5-5.1); SODIUM 144 MMOL/L (136-145)
[2018-09-04 08:00] VITALS: BP 154/88
[2018-09-04] MEDS: GENVOYA ORAL SCH ×2 (08:00→13:10)
[2018-09-04] MEDS: INTELENCE 200 MG ORAL SCH ×3 (08:00→20:59)
--- NOTE | 2018-09-04 11:22 | GI Initial Consult Note ---
History of Present Illness General Date patient seen: Sep 04, 2018 Reason for Hospitalization: Pain Referring physician: LON WRIGHT Reason for Consultation: Rectal pain and diarrhea Present Illness HPI Patient is a 68-year-old male brought in by EMS after increased left-sided flank pain patient prior history of HIV. He reports of increased left flank pain for several days. He reports having similar symptoms in the past. Reports having increased urinary frequency and increased pain with urination. Reports having undetectable viral load and CD4 count He reports having prior history of arthritis and states that he had some prior CT imaging for the similar pain in the past. GI consulted for persistent diarrhea, rectal pain. Pt seen, awake A&Ox4 NAD has c/o of left flank pain, persistent diarrhea for approximately 3 days in which he contributes to food poisoning. In addition, the patient has complaint of poor PO intake. States he has a history of Rectal CA and is pending biopsies. Patient also states he was diagnosed with rectal CA approximately 10 years ago and his last colonoscopy was greater than 5 years ago. Labs reviewed ; patient presents with a white count of 12, no anemia, no transaminitis. Home Meds Active Scripts Acetaminophen* (TYLENOL EXTRA STRENGTH*) 500 Mg Tablet, 500 MG ORAL Q6H, #20 TAB 0 Refills Prov:Rosalee Franco 07/26/18 Cephalexin* (KEFLEX*) 500 Mg Capsule, 500 MG ORAL EVERY 12 HOURS for 7 Days, # 14 CAP 0 Refills Prov:Rosalee Franco 07/26/18 Cephalexin* (KEFLEX*) 500 Mg Capsule, 500 MG ORAL EVERY 12 HOURS for 5 Days, # 14 CAP 0 Refills Prov:Oliverio Rm MD 03/10/18 Reported Medications Oxycodone Hcl/Acetaminophen (ENDOCET 10-325 MG TABLET) 1 Each Tablet, 1 TAB ORAL Q4H, #30 TAB 0 Refills 08/31/18 Gabapentin* (GABAPENTIN*) 600 Mg Tablet, 600 MG ORAL THREE TIMES A DAY, TAB 08/31/18 Elviteg/Jihan/Emtric/Tenofo Ala (Genvoya Tablet) 1 Each Tablet, 1 EACH PO, TAB 08/31/18 Oxybutynin Chloride (OXYBUTYNIN CHLORIDE) 5 Mg/5 Ml Syrup, 10 MG PO, ML 08/31/18 Darunavir Ethanolate* (PREZISTA*) 600 Mg Tablet, 800 MG ORAL EVERY 12 HOURS, TAB 08/31/18 Baclofen* (BACLOFEN*) 10 Mg Tablet, 10 MG ORAL THREE TIMES A DAY, TAB 08/31/18 Metoprolol Tartrate* (METOPROLOL TARTRATE*) 25 Mg Tablet, 25 MG ORAL EVERY 12 HOURS, TAB 03/06/18 Mirabegron (MYRBETRIQ) 25 Mg Tab.er.24h, 25 MG PO, TAB 03/06/18 Amoxicillin/Potassium Clav 875-125* (AUGMENTIN 875-125 TABLET*) 1 Each Tablet, 1 TAB ORAL DAILY for 6 Days, TAB 12/01/17 Methocarbamol (Methocarbamol) 500 Mg Tablet, 500 MG PO Q6HR, TAB 11/28/17 Amlodipine Besylate (Norvasc) 10 Mg Tablet, 10 MG ORAL DAILY, TAB 11/28/17 Clotrimazole* (LOTRIMIN*) 15 Gm Cream..g., 1 APPLIC TOPIC TWICE A DAY, GM 11/28/17 Cholecalciferol (Vitamin D3)* (VITAMIN D*) 1,000 Unit Tablet, 2000 UNITS ORAL DAILY, #30 TAB 0 Refills 11/28/17 Simethicone (GAS RELIEF) 125 Mg Tab.chew, 125 MG PO for gas, TAB 11/28/17 Hydrocortisone/Iodoquin/Aloe#2 (Alcortin A Gel) 48 Gm Gel..gram., 48 GM TP QID, GM 11/28/17 Lorazepam* (LORAZEPAM*) 1 Mg Tablet, 1 MG ORAL TWICE A DAY, TAB 11/28/17 Eszopiclone (LUNESTA) 3 Mg Tablet, 3 MG ORAL BEDTIME PRN for Insomnia, TAB 0 Refills 11/28/17 Paroxetine Hcl (PAROXETINE HCL) 40 Mg Tablet, 40 MG ORAL DAILY, #30 TAB 0 Refills 11/28/17 Ondansetron Odt* (ZOFRAN ODT*) 8 Mg Tab.rapdis, 8 MG ORAL Q6H PRN for Nausea & Vomiting, #30 TAB 11/28/17 Calcium Carbonate (OYSCO-500) 500 Mg Tablet, 500 MG PO DAILY, TAB 11/28/17 Meloxicam* (MELOXICAM*) 15 Mg Tablet, 15 MG PO DAILY, TAB 11/28/17 Mirtazapine* (MIRTAZAPINE*) 15 Mg Tablet, 15 MG ORAL BEDTIME, TAB 11/28/17 Darunavir Ethanolate* (PREZISTA*) 600 Mg Tablet, 600 MG ORAL EVERY 12 HOURS, TAB 11/28/17 Ritonavir* (NORVIR*) 100 Mg Capsule, 100 MG ORAL TWICE A DAY, #60 CAP 11/28/17 Raltegravir Potassium (ISENTRESS) 100 Mg Tab.chew, 400 MG ORAL TWICE A DAY, TAB 11/28/17 Levothyroxine Sodium* (LEVOTHYROXINE SODIUM*) 75 Mcg Tablet, 25 MCG ORAL DAILY, TAB Take in the morning on an empty stomach, at least 30 minutes before food. 11/28/17 Losartan Potassium* (LOSARTAN POTASSIUM*) 50 Mg Tablet, 50 MG ORAL DAILY, TAB 11/28/17 Finasteride* (PROSCAR*) 5 Mg Tablet, 5 MG ORAL DAILY, #30 TAB 0 Refills 11/28/17 Tamsulosin Hcl (TAMSULOSIN HCL*) 0.4 Mg Cap.er.24h, 0.4 MG ORAL BEDTIME, CAP 11/28/17 Valacyclovir Hcl* (VALTREX*) 500 Mg Tablet, 1000 MG ORAL DAILY, TAB 11/28/17 Alendronate Sodium* (FOSAMAX*) 70 Mg Tablet, 70 MG ORAL ONCE A WEEK, TAB 11/28/17 Aspirin* (ASPIR 81*) 81 Mg Tablet.dr, 81 MG ORAL DAILY, TAB 11/28/17 Omeprazole (OMEPRAZOLE) 20 Mg Capsule.dr, 20 MG ORAL DAILY, CAP 11/28/17 Oxycodone HCl/Acetaminophen (Percocet 10-325 mg Tablet) 1 Each Tablet, 1 EACH PO TID for pain, TAB 11/04/17 Dutasteride (AVODART) 0.5 Mg Capsule, 0.5 MG ORAL DAILY, CAP 10/27/17 Entecavir* (BARACLUDE*) 0.5 Mg Tablet, 1 MG ORAL DAILY, TAB 10/27/17 Etravirine* (INTELENCE*) 100 Mg Tablet, 200 MG ORAL EVERY 12 HOURS, #60 TAB 0 Refills 10/27/17 Med list reviewed/reconciled: Yes Allergies: Coded Allergies: CODEINE (Unverified Allergy, Unknown, 11/28/17) EMTRICITABINE (Verified Allergy, Unknown, anxiousness, 08/31/18) SULFAMETHOXAZOLE (Unverified Allergy, Unknown, 10/27/17) TENOFOVIR (Verified Allergy, Unknown, anxiousness, 08/31/18) TRIMETHOPRIM (Unverified Allergy, Unknown, 10/27/17) Patient History History Provided By: Patient, Medical Record PMH Narrative Past Medical History: see triage record Reviewed Nursing Documentation: PMH: Agreed; PSxH: Agreed Nursing Documentation-PMH Hx Cardiac Problems: No Hx Hypertension: Yes Hx Cancer: Yes - RECTAL Hx Gastrointestinal Problems: Yes Hx Neurological Problems: Yes Hx Cerebrovascular Accident: Yes - 2004 Hx Weakness: Yes Pertinent Family History: none Social History: Denies: smoking, alcohol use, drug use, other Review of Systems All Other Systems: negative except mentioned in HPI Physical Exam Vital Signs Date Time Temp Pulse Resp B/P (MAP) Pulse Ox O2 Delivery O2 Flow Rate FiO2 08/31/18 11:44 98.1 82 16 156/82 100 Room Air 08/31/18 18:12 2.0 Sp02 EP Interpretation: reviewed, normal Labs Laboratory Tests Test 09/04/18 05:40 White Blood Count 12.7 K/UL (4.8-10.8) #H Red Blood Count 4.52 M/UL (4.70-6.10) L Hemoglobin 15.2 G/DL (14.2-18.0) Hematocrit 44.9 % (42.0-52.0) Mean Corpuscular Volume 99 FL (80-99) Mean Corpuscular Hemoglobin 33.6 PG (27.0-31.0) H Mean Corpuscular Hemoglobin Concent 33.9 G/DL (32.0-36.0) Red Cell Distribution Width 12.7 % (11.6-14.8) Platelet Count 208 K/UL (150-450) Mean Platelet Volume 8.2 FL (6.5-10.1) Neutrophils (%) (Auto) 76.1 % (45.0-75.0) H Lymphocytes (%) (Auto) 16.0 % (20.0-45.0) L Monocytes (%) (Auto) 7.0 % (1.0-10.0) Eosinophils (%) (Auto) 0.5 % (0.0-3.0) Basophils (%) (Auto) 0.5 % (0.0-2.0) Sodium Level 144 MMOL/L (136-145) Potassium Level 3.9 MMOL/L (3.5-5.1) Chloride Level 105 MMOL/L (98-107) Carbon Dioxide Level 28 MMOL/L (21-32) Anion Gap 11 mmol/L (5-15) Blood Urea Nitrogen 29 mg/dL (7-18) H Creatinine 1.6 MG/DL (0.55-1.30) H Estimat Glomerular Filtration Rate 42.9 mL/min (>60) Glucose Level 121 MG/DL (74-106) H Calcium Level 9.7 MG/DL (8.5-10.1) General Appearance: well appearing, no apparent distress, alert Head: normocephalic EENT: PERRL/EOMI, normal ENT inspection Neck: supple Respiratory: normal breath sounds, no respiratory distress Cardiovascular: normal rate Gastrointestinal: normal inspection, non tender, soft, normal bowel sounds, non -distended Rectal: deferred Genitourinary: deferred Musculoskeletal: normal inspection, back normal Neurologic: normal inspection, alert, oriented x3, responsive Psychiatric: normal inspection, judgement/insight normal, memory normal Skin: normal inspection, normal color, no rash, warm/dry, palpation normal, well hydrated Lymphatic: normal inspection, no adenopathy Current Medications Current Medications Medications (Trade) Dose Ordered Sig/Roman Route PRN Reason Start Time Stop Time Status Last Admin Dose Admin Acetaminophen (Tylenol) 650 mg Q4H PRN ORAL fever 08/31/18 16:30 09/30/18 16:29 09/01/18 15:39 Al Hydroxide/Mg Hydroxide (Mylanta II) 30 ml Q6H PRN ORAL dyspepsia 08/31/18 16:30 09/30/18 16:29 Al Hydroxide/Mg Hydroxide (Mylanta) 30 ml Q4H PRN ORAL Heartburn 09/03/18 17:00 10/03/18 16:59 09/03/18 17:20 Amlodipine Besylate (Norvasc) 10 mg DAILY ORAL 09/01/18 09:00 10/01/18 08:59 09/03/18 09:00 Baclofen (Lioresal) 10 mg THREE TIMES A DAY ORAL 08/31/18 18:00 09/30/18 17:59 09/04/18 09:42 Ceftriaxone Sodium 1 gm/ Dextrose 55 ml @ 110 mls/hr Q24H IVPB 09/01/18 18:00 09/08/18 17:59 09/03/18 17:21 Dextrose (Dextrose 50%) STAT PRN IV Hypoglycemia 08/31/18 16:30 09/30/18 16:29 Gabapentin (Neurontin) 600 mg BID ORAL 09/01/18 09:00 10/01/18 08:59 09/03/18 09:01 Loperamide HCl (Imodium) 2 mg QIDPRN PRN ORAL Diarrhea 09/03/18 17:45 10/03/18 17:44 09/04/18 05:29 Lorazepam (Ativan 2mg/ml 1ml) 0.5 mg Q4H PRN IV For Anxiety 08/31/18 16:30 09/07/18 16:29 Losartan Potassium (Cozaar) 50 mg DAILY ORAL 09/01/18 09:00 10/01/18 08:59 09/03/18 09:01 Metoprolol Tartrate (Lopressor) 25 mg EVERY 12 HOURS ORAL 08/31/18 21:00 09/30/18 20:59 09/03/18 20:08 Mirtazapine (Remeron) 15 mg BEDTIME ORAL 08/31/18 21:00 09/30/18 20:59 09/03/18 20:08 Morphine Sulfate (Morphine Sulfate) 1 mg Q4H PRN IVP Moderate Pain (Pain Scale 4-6) 08/31/18 16:30 09/07/18 16:29 09/04/18 00:32 Ondansetron HCl (Zofran) 4 mg Q6H PRN IVP Nausea & Vomiting 08/31/18 16:30 09/30/18 16:29 09/04/18 09:42 Patient Own Medication (Patient's Own Med) 1 ea BID@0800,1999 ORAL 09/01/18 20:00 10/01/18 19:59 09/03/18 20:07 Patient Own Medication (Patient's Own Med) 1 ea BID@0800,1999 ORAL 09/01/18 20:00 10/01/18 19:59 09/03/18 20:07 Patient Own Medication (Patient's Own Med) 1 ea DAILY@0800 ORAL 09/02/18 08:00 10/02/18 07:59 09/03/18 09:00 Phenazopyridine HCl (Pyridium) 100 mg THREE TIMES A DAY ORAL 09/01/18 18:00 10/01/18 17:59 09/04/18 09:42 Polyethylene Glycol (Miralax) 17 gm HSPRN PRN ORAL Constipation 08/31/18 16:30 09/30/18 16:29 Tamsulosin HCl (Flomax) 0.4 mg BEDTIME ORAL 08/31/18 21:00 09/30/18 20:59 09/03/18 20:08 Valacyclovir HCl (Valtrex) 1,000 mg QHS ORAL 09/01/18 21:00 10/01/18 20:59 09/03/18 20:08 Zolpidem Tartrate (Ambien) 5 mg HSPRN PRN ORAL Insomnia 08/31/18 16:30 09/07/18 16:29 GI: Plan Problems: (1) Gastroenteritis (2) Rectal cancer (3) Diarrhea (4) Electrolyte imbalance (5) Dehydration (6) Severe protein-calorie malnutrition (7) Intractable abdominal pain Plan Plan for colonoscopy this tuesday resume diet ppi zofran prn follow labs will follow with additional recommendations post procedure Discussed with Dr. Germain. Thank you for this patient referral, we will follow. The patient was seen and examined at bedside and all new and available data was reviewed in the patients chart. I agree with the above findings, impression and plan. (Patient seen earlier today. Signature stamp does not reflect patient encounter time.). - [facility] [place] Sep 04, 2018 11:22
[2018-09-04] MEDS: Losartan 50mg tab ORAL SCH (11:39)
[2018-09-04] MEDS: Metoprolol 25mg tab ORAL SCH ×2 (11:43→20:58)
[2018-09-04 11:48] VITALS: BP 130/86
--- NOTE | 2018-09-04 12:57 | Infectious Diseases Prog Note ---
Assessment/Plan Assessment/Plan Assessment: UTI (frequency, dysuria) -u/a wbc 10-15, shirley neg, leuk +3; ucx >100K PROTEUS MIRABILIS ( I Levo; R Amp, bactrim, Cipro, Nitro; S Ceftriaxone) Afebrile Mild leukocytosis HIV- on ARV (per pt VL UD) -09/2018 182 (10.1%) -11/2017 CD4 323 hx of rectal CA CVA 2004 HTN Plan: -Continue Ceftriaxone # for UTI -upon discharge can be transitioned to PO Cefdinir 300mg bid -Start Atovaquone for PCP ppx as CD4 <200 on valtrex -Contiue ARV (Genvoya, prezista, intelence) -f/u cx -Monitor CBC/CMP, temperatures Subjective Allergies: Coded Allergies: CODEINE (Unverified Allergy, Unknown, 11/28/17) EMTRICITABINE (Verified Allergy, Unknown, anxiousness, 08/31/18) SULFAMETHOXAZOLE (Unverified Allergy, Unknown, 10/27/17) TENOFOVIR (Verified Allergy, Unknown, anxiousness, 08/31/18) TRIMETHOPRIM (Unverified Allergy, Unknown, 10/27/17) Subjective afebrile mild leukocytosis Objective Vital Signs Last 24 Hour Vital Signs Date Time Temp Pulse Resp B/P (MAP) Pulse Ox O2 Delivery O2 Flow Rate FiO2 09/04/18 11:48 98.4 96 18 130/86 (101) 96 09/04/18 11:44 96 130/86 09/04/18 11:43 96 130/86 09/04/18 11:39 130/86 09/04/18 08:00 99.9 96 19 154/88 (110) 96 09/04/18 04:00 98.5 95 18 149/88 (108) 95 09/04/18 00:00 98.7 91 18 154/95 (114) 96 09/03/18 21:00 Nasal Cannula 2.0 09/03/18 20:08 97 133/77 09/03/18 20:00 98.0 97 18 133/77 (95) 97 09/03/18 17:52 98.6 09/03/18 16:00 98.6 92 20 120/82 (95) 95 Height (Feet): 5 Height (Inches): 5.00 Weight (Pounds): 164 Objective GENERAL: The patient awake, responsive, in no acute distress. HEAD AND NECK: Pupils equal and reactive to light. Extraocular movements intact. Right eye has ptosis. Neck was supple. No JVD. LUNGS: Good air entry. No wheezing or rales. HEART: S1, S2. Regular rate and rhythm. No murmur or gallops. ABDOMEN: Soft, nondistended, nontender. Positive bowel sounds. Left flank tenderness on deep palpation. No rebound tenderness. No fluid shift. EXTREMITIES: No cyanosis, clubbing, or edema. NEUROLOGIC: Cranial nerves II to XII grossly intact. Motor is 5/5 in all extremities. PSYCHIATRIC: Mood and affect is intact. Laboratory Tests Test 09/04/18 05:40 White Blood Count 12.7 K/UL (4.8-10.8) #H Red Blood Count 4.52 M/UL (4.70-6.10) L Hemoglobin 15.2 G/DL (14.2-18.0) Hematocrit 44.9 % (42.0-52.0) Mean Corpuscular Volume 99 FL (80-99) Mean Corpuscular Hemoglobin 33.6 PG (27.0-31.0) H Mean Corpuscular Hemoglobin Concent 33.9 G/DL (32.0-36.0) Red Cell Distribution Width 12.7 % (11.6-14.8) Platelet Count 208 K/UL (150-450) Mean Platelet Volume 8.2 FL (6.5-10.1) Neutrophils (%) (Auto) 76.1 % (45.0-75.0) H Lymphocytes (%) (Auto) 16.0 % (20.0-45.0) L Monocytes (%) (Auto) 7.0 % (1.0-10.0) Eosinophils (%) (Auto) 0.5 % (0.0-3.0) Basophils (%) (Auto) 0.5 % (0.0-2.0) Sodium Level 144 MMOL/L (136-145) Potassium Level 3.9 MMOL/L (3.5-5.1) Chloride Level 105 MMOL/L (98-107) Carbon Dioxide Level 28 MMOL/L (21-32) Anion Gap 11 mmol/L (5-15) Blood Urea Nitrogen 29 mg/dL (7-18) H Creatinine 1.6 MG/DL (0.55-1.30) H Estimat Glomerular Filtration Rate 42.9 mL/min (>60) Glucose Level 121 MG/DL (74-106) H Calcium Level 9.7 MG/DL (8.5-10.1) Current Medications Medications (Trade) Dose Ordered Sig/Roman Route PRN Reason Start Time Stop Time Status Last Admin Dose Admin Acetaminophen (Tylenol) 650 mg Q4H PRN ORAL fever 08/31/18 16:30 09/30/18 16:29 09/01/18 15:39 Al Hydroxide/Mg Hydroxide (Mylanta II) 30 ml Q6H PRN ORAL dyspepsia 08/31/18 16:30 09/30/18 16:29 Al Hydroxide/Mg Hydroxide (Mylanta) 30 ml Q4H PRN ORAL Heartburn 09/03/18 17:00 10/03/18 16:59 09/03/18 17:20 Amlodipine Besylate (Norvasc) 10 mg DAILY ORAL 09/01/18 09:00 10/01/18 08:59 09/04/18 11:44 Baclofen (Lioresal) 10 mg THREE TIMES A DAY ORAL 08/31/18 18:00 09/30/18 17:59 09/04/18 09:42 Ceftriaxone Sodium 1 gm/ Dextrose 55 ml @ 110 mls/hr Q24H IVPB 09/01/18 18:00 09/08/18 17:59 09/03/18 17:21 Dextrose (Dextrose 50%) STAT PRN IV Hypoglycemia 08/31/18 16:30 09/30/18 16:29 Gabapentin (Neurontin) 600 mg BID ORAL 09/01/18 09:00 10/01/18 08:59 09/03/18 09:01 Loperamide HCl (Imodium) 2 mg QIDPRN PRN ORAL Diarrhea 09/03/18 17:45 10/03/18 17:44 09/04/18 05:29 Lorazepam (Ativan 2mg/ml 1ml) 0.5 mg Q4H PRN IV For Anxiety 08/31/18 16:30 09/07/18 16:29 Losartan Potassium (Cozaar) 50 mg DAILY ORAL 09/01/18 09:00 10/01/18 08:59 09/04/18 11:39 Metoprolol Tartrate (Lopressor) 25 mg EVERY 12 HOURS ORAL 08/31/18 21:00 09/30/18 20:59 09/04/18 11:43 Mirtazapine (Remeron) 15 mg BEDTIME ORAL 08/31/18 21:00 09/30/18 20:59 09/03/18 20:08 Morphine Sulfate (Morphine Sulfate) 1 mg Q4H PRN IVP Moderate Pain (Pain Scale 4-6) 08/31/18 16:30 09/07/18 16:29 09/04/18 00:32 Ondansetron HCl (Zofran) 4 mg Q6H PRN IVP Nausea & Vomiting 08/31/18 16:30 09/30/18 16:29 09/04/18 09:42 Patient Own Medication (Patient's Own Med) 1 ea BID@0800 ORAL 09/01/18 20:00 10/01/18 19:59 09/03/18 20:07 Patient Own Medication (Patient's Own Med) 1 ea BID@0800 ORAL 09/01/18 20:00 10/01/18 19:59 09/03/18 20:07 Patient Own Medication (Patient's Own Med) 1 ea DAILY@0800 ORAL 09/02/18 08:00 10/02/18 07:59 09/03/18 09:00 Phenazopyridine HCl (Pyridium) 100 mg THREE TIMES A DAY ORAL 09/01/18 18:00 10/01/18 17:59 09/04/18 09:42 Polyethylene Glycol (Miralax) 17 gm HSPRN PRN ORAL Constipation 08/31/18 16:30 09/30/18 16:29 Tamsulosin HCl (Flomax) 0.4 mg BEDTIME ORAL 08/31/18 21:00 09/30/18 20:59 09/03/18 20:08 Valacyclovir HCl (Valtrex) 1,000 mg QHS ORAL 09/01/18 21:00 10/01/18 20:59 09/03/18 20:08 Zolpidem Tartrate (Ambien) 5 mg HSPRN PRN ORAL Insomnia 08/31/18 16:30 09/07/18 16:29 Miranda Cordero M.D. 4, 2019 12:57
[2018-09-04] MEDS: PREZISTA 800 MG ORAL SCH ×2 (13:00→20:58)
[2018-09-04] MEDS ORDERED: Atovaquone 750mg/5ml Susp ORAL SCH (13:00)
--- NOTE | 2018-09-04 14:28 | Pulmonology Progress Note ---
Assessment/Plan Problems: (1) Sepsis (2) HIV (human immunodeficiency virus infection) (3) ATN (acute tubular necrosis) (4) UTI (urinary tract infection) (5) Degenerative disc disease (6) Severe protein-calorie malnutrition Assessment/Plan doing better pt/ot improving check electrolytes check cultures pyruvate for dysuria GI evaluation f/u renal parameters. Subjective ROS Limited/Unobtainable: No Interval Events: less dysuria Allergies: Coded Allergies: CODEINE (Unverified Allergy, Unknown, 11/28/17) EMTRICITABINE (Verified Allergy, Unknown, anxiousness, 08/31/18) SULFAMETHOXAZOLE (Unverified Allergy, Unknown, 10/27/17) TENOFOVIR (Verified Allergy, Unknown, anxiousness, 08/31/18) TRIMETHOPRIM (Unverified Allergy, Unknown, 10/27/17) Objective Last 24 Hour Vital Signs Date Time Temp Pulse Resp B/P (MAP) Pulse Ox O2 Delivery O2 Flow Rate FiO2 09/04/18 11:48 98.4 96 18 130/86 (101) 96 09/04/18 11:44 96 130/86 09/04/18 11:43 96 130/86 09/04/18 11:39 130/86 09/04/18 09:00 Nasal Cannula 2.0 09/04/18 08:00 99.9 96 19 154/88 (110) 96 09/04/18 04:00 98.5 95 18 149/88 (108) 95 09/04/18 00:00 98.7 91 18 154/95 (114) 96 09/03/18 21:00 Nasal Cannula 2.0 09/03/18 20:08 97 133/77 09/03/18 20:00 98.0 97 18 133/77 (95) 97 09/03/18 17:52 98.6 09/03/18 16:00 98.6 92 20 120/82 (95) 95 Intake and Output 09/03/18 09/04/18 18:59 06:59 Intake Total 500 ml 880 ml Output Total 400 ml 400 ml Balance 100 ml 480 ml Intake Oral 500 ml 880 ml Output Urine Total 400 ml 400 ml # Voids 5 # Bowel Movements 1 General Appearance: WD/WN HEENT: normocephalic, anicteric Respiratory/Chest: lungs clear, normal breath sounds Cardiovascular: normal peripheral pulses, regular rhythm Abdomen: normal bowel sounds, no organomegaly Genitourinary: normal external genitalia Extremities: no clubbing Skin: no lesions Laboratory Tests 09/04/18 05:40: White Blood Count 12.7#H, Red Blood Count 4.52L, Hemoglobin 15.2, Hematocrit 44.9, Mean Corpuscular Volume 99, Mean Corpuscular Hemoglobin 33.6H, Mean Corpuscular Hemoglobin Concent 33.9, Red Cell Distribution Width 12.7, Platelet Count 208, Mean Platelet Volume 8.2, Neutrophils (%) (Auto) 76.1H, Lymphocytes ( %) (Auto) 16.0L, Monocytes (%) (Auto) 7.0, Eosinophils (%) (Auto) 0.5, Basophils (%) (Auto) 0.5, Sodium Level 144, Potassium Level 3.9, Chloride Level 105, Carbon Dioxide Level 28, Anion Gap 11, Blood Urea Nitrogen 29H, Creatinine 1.6H, Estimat Glomerular Filtration Rate 42.9, Glucose Level 121H, Calcium Level 9.7 Current Medications Medications (Trade) Dose Ordered Sig/Roman Route PRN Reason Start Time Stop Time Status Last Admin Dose Admin Acetaminophen (Tylenol) 650 mg Q4H PRN ORAL fever 08/31/18 16:30 09/30/18 16:29 09/01/18 15:39 Al Hydroxide/Mg Hydroxide (Mylanta II) 30 ml Q6H PRN ORAL dyspepsia 08/31/18 16:30 09/30/18 16:29 Al Hydroxide/Mg Hydroxide (Mylanta) 30 ml Q4H PRN ORAL Heartburn 09/03/18 17:00 10/03/18 16:59 09/03/18 17:20 Amlodipine Besylate (Norvasc) 10 mg DAILY ORAL 09/01/18 09:00 10/01/18 08:59 09/04/18 11:44 Atovaquone (Mepron Susp) 1,500 mg DAILY ORAL 09/04/18 13:00 10/04/18 12:59 Baclofen (Lioresal) 10 mg THREE TIMES A DAY ORAL 08/31/18 18:00 09/30/18 17:59 09/04/18 14:18 Ceftriaxone Sodium 1 gm/ Dextrose 55 ml @ 110 mls/hr Q24H IVPB 09/01/18 18:00 09/08/18 17:59 09/03/18 17:21 Dextrose (Dextrose 50%) STAT PRN IV Hypoglycemia 08/31/18 16:30 09/30/18 16:29 Gabapentin (Neurontin) 600 mg BID ORAL 09/01/18 09:00 10/01/18 08:59 09/03/18 09:01 Loperamide HCl (Imodium) 2 mg QIDPRN PRN ORAL Diarrhea 09/03/18 17:45 10/03/18 17:44 09/04/18 05:29 Lorazepam (Ativan 2mg/ml 1ml) 0.5 mg Q4H PRN IV For Anxiety 08/31/18 16:30 09/07/18 16:29 Losartan Potassium (Cozaar) 50 mg DAILY ORAL 09/01/18 09:00 10/01/18 08:59 09/04/18 11:39 Metoprolol Tartrate (Lopressor) 25 mg EVERY 12 HOURS ORAL 08/31/18 21:00 09/30/18 20:59 09/04/18 11:43 Mirtazapine (Remeron) 15 mg BEDTIME ORAL 08/31/18 21:00 09/30/18 20:59 09/03/18 20:08 Morphine Sulfate (Morphine Sulfate) 1 mg Q4H PRN IVP Moderate Pain (Pain Scale 4-6) 08/31/18 16:30 09/07/18 16:29 09/04/18 00:32 Ondansetron HCl (Zofran) 4 mg Q6H PRN IVP Nausea & Vomiting 08/31/18 16:30 09/30/18 16:29 09/04/18 09:42 Patient Own Medication (Patient's Own Med) 1 ea BID@08 ORAL 09/01/18 20:00 10/01/18 19:59 09/04/18 13:00 Patient Own Medication (Patient's Own Med) 1 ea BID@0800 ORAL 09/01/18 20:00 10/01/18 19:59 09/04/18 13:10 Patient Own Medication (Patient's Own Med) 1 ea DAILY@0800 ORAL 09/02/18 08:00 10/02/18 07:59 09/04/18 13:10 Phenazopyridine HCl (Pyridium) 100 mg THREE TIMES A DAY ORAL 09/01/18 18:00 10/01/18 17:59 09/04/18 14:18 Polyethylene Glycol (Miralax) 17 gm HSPRN PRN ORAL Constipation 08/31/18 16:30 09/30/18 16:29 Tamsulosin HCl (Flomax) 0.4 mg BEDTIME ORAL 08/31/18 21:00 09/30/18 20:59 09/03/18 20:08 Valacyclovir HCl (Valtrex) 1,000 mg QHS ORAL 09/01/18 21:00 10/01/18 20:59 09/03/18 20:08 Zolpidem Tartrate (Ambien) 5 mg HSPRN PRN ORAL Insomnia 08/31/18 16:30 09/07/18 16:29 Oliverio Rm MD Sep 04, 2018 14:28
[2018-09-04] MEDS: cefTRIAXone 1 GM in D5W 55 ML IVPB SCH (18:34)
--- NOTE | 2018-09-04 19:31 | Internal Med Progress Note ---
Subjective Date of Service: Sep 04, 2018 Physician Name Trey Whitaker Attending Physician Carlos Barragan MD Current Medications Medications (Trade) Dose Ordered Sig/Roman Route PRN Reason Start Time Stop Time Status Last Admin Dose Admin Acetaminophen (Tylenol) 650 mg Q4H PRN ORAL fever 08/31/18 16:30 09/30/18 16:29 09/01/18 15:39 Al Hydroxide/Mg Hydroxide (Mylanta II) 30 ml Q6H PRN ORAL dyspepsia 08/31/18 16:30 09/30/18 16:29 Al Hydroxide/Mg Hydroxide (Mylanta) 30 ml Q4H PRN ORAL Heartburn 09/03/18 17:00 10/03/18 16:59 09/03/18 17:20 Amlodipine Besylate (Norvasc) 10 mg DAILY ORAL 09/01/18 09:00 10/01/18 08:59 09/04/18 11:44 Atovaquone (Mepron Susp) 1,500 mg DAILY ORAL 09/04/18 13:00 10/04/18 12:59 09/04/18 15:15 Baclofen (Lioresal) 10 mg THREE TIMES A DAY ORAL 08/31/18 18:00 09/30/18 17:59 09/04/18 18:32 Ceftriaxone Sodium 1 gm/ Dextrose 55 ml @ 110 mls/hr Q24H IVPB 09/01/18 18:00 09/08/18 17:59 09/04/18 18:34 Dextrose (Dextrose 50%) STAT PRN IV Hypoglycemia 08/31/18 16:30 09/30/18 16:29 Gabapentin (Neurontin) 600 mg BID ORAL 09/01/18 09:00 10/01/18 08:59 09/04/18 18:33 Loperamide HCl (Imodium) 2 mg QIDPRN PRN ORAL Diarrhea 09/03/18 17:45 10/03/18 17:44 09/04/18 05:29 Lorazepam (Ativan 2mg/ml 1ml) 0.5 mg Q4H PRN IV For Anxiety 08/31/18 16:30 09/07/18 16:29 Losartan Potassium (Cozaar) 50 mg DAILY ORAL 09/01/18 09:00 10/01/18 08:59 09/04/18 11:39 Metoprolol Tartrate (Lopressor) 25 mg EVERY 12 HOURS ORAL 08/31/18 21:00 09/30/18 20:59 09/04/18 11:43 Mirtazapine (Remeron) 15 mg BEDTIME ORAL 08/31/18 21:00 09/30/18 20:59 09/03/18 20:08 Morphine Sulfate (Morphine Sulfate) 1 mg Q4H PRN IVP Moderate Pain (Pain Scale 4-6) 08/31/18 16:30 09/07/18 16:29 09/04/18 00:32 Ondansetron HCl (Zofran) 4 mg Q6H PRN IVP Nausea & Vomiting 08/31/18 16:30 09/30/18 16:29 09/04/18 09:42 Patient Own Medication (Patient's Own Med) 1 ea BID@0800,1999 ORAL 09/01/18 20:00 10/01/18 19:59 09/04/18 13:00 Patient Own Medication (Patient's Own Med) 1 ea BID@08 ORAL 09/01/18 20:00 10/01/18 19:59 09/04/18 13:10 Patient Own Medication (Patient's Own Med) 1 ea DAILY@0800 ORAL 09/02/18 08:00 10/02/18 07:59 09/04/18 13:10 Phenazopyridine HCl (Pyridium) 100 mg THREE TIMES A DAY ORAL 09/01/18 18:00 10/01/18 17:59 09/04/18 18:33 Polyethylene Glycol (Miralax) 17 gm HSPRN PRN ORAL Constipation 08/31/18 16:30 09/30/18 16:29 Tamsulosin HCl (Flomax) 0.4 mg BEDTIME ORAL 08/31/18 21:00 09/30/18 20:59 09/03/18 20:08 Valacyclovir HCl (Valtrex) 1,000 mg QHS ORAL 09/01/18 21:00 10/01/18 20:59 09/03/18 20:08 Zolpidem Tartrate (Ambien) 5 mg HSPRN PRN ORAL Insomnia 08/31/18 16:30 09/07/18 16:29 Allergies: Coded Allergies: CODEINE (Unverified Allergy, Unknown, 11/28/17) EMTRICITABINE (Verified Allergy, Unknown, anxiousness, 08/31/18) SULFAMETHOXAZOLE (Unverified Allergy, Unknown, 10/27/17) TENOFOVIR (Verified Allergy, Unknown, anxiousness, 08/31/18) TRIMETHOPRIM (Unverified Allergy, Unknown, 10/27/17) ROS Limited/Unobtainable: No Constitutional: Reports: no symptoms HEENT: Reports: no symptoms Cardiovascular: Reports: no symptoms Respiratory: Reports: no symptoms Gastrointestinal/Abdominal: Reports: no symptoms Genitourinary: Reports: no symptoms 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: Reports: no symptoms Subjective 68 YO M admitted with flank pain. Cover for Int misty-DR Barragan Objective Last Vital Signs Date Time Temp Pulse Resp B/P (MAP) Pulse Ox O2 Delivery O2 Flow Rate FiO2 09/04/18 11:48 98.4 96 18 130/86 (101) 96 09/04/18 09:00 Nasal Cannula 2.0 Laboratory Tests Test 09/04/18 05:40 White Blood Count 12.7 K/UL (4.8-10.8) #H Red Blood Count 4.52 M/UL (4.70-6.10) L Hemoglobin 15.2 G/DL (14.2-18.0) Hematocrit 44.9 % (42.0-52.0) Mean Corpuscular Volume 99 FL (80-99) Mean Corpuscular Hemoglobin 33.6 PG (27.0-31.0) H Mean Corpuscular Hemoglobin Concent 33.9 G/DL (32.0-36.0) Red Cell Distribution Width 12.7 % (11.6-14.8) Platelet Count 208 K/UL (150-450) Mean Platelet Volume 8.2 FL (6.5-10.1) Neutrophils (%) (Auto) 76.1 % (45.0-75.0) H Lymphocytes (%) (Auto) 16.0 % (20.0-45.0) L Monocytes (%) (Auto) 7.0 % (1.0-10.0) Eosinophils (%) (Auto) 0.5 % (0.0-3.0) Basophils (%) (Auto) 0.5 % (0.0-2.0) Sodium Level 144 MMOL/L (136-145) Potassium Level 3.9 MMOL/L (3.5-5.1) Chloride Level 105 MMOL/L (98-107) Carbon Dioxide Level 28 MMOL/L (21-32) Anion Gap 11 mmol/L (5-15) Blood Urea Nitrogen 29 mg/dL (7-18) H Creatinine 1.6 MG/DL (0.55-1.30) H Estimat Glomerular Filtration Rate 42.9 mL/min (>60) Glucose Level 121 MG/DL (74-106) H Calcium Level 9.7 MG/DL (8.5-10.1) Intake and Output 09/03/18 09/04/18 19:00 07:00 Intake Total 500 ml 880 ml Output Total 400 ml 400 ml Balance 100 ml 480 ml Intake Oral 500 ml 880 ml Output Urine Total 400 ml 400 ml # Voids 5 # Bowel Movements 1 Objective PHYSICAL EXAMINATION: GENERAL: The patient awake, responsive, in no acute distress. HEAD AND NECK: Pupils equal and reactive to light. Extraocular movements intact. Right eye has ptosis. Neck was supple. No JVD. LUNGS: Good air entry. No wheezing or rales. HEART: S1, S2. Regular rate and rhythm. No murmur or gallops. ABDOMEN: Soft, nondistended, nontender. Positive bowel sounds. Left flank tenderness on deep palpation. No rebound tenderness. No fluid shift. EXTREMITIES: No cyanosis, clubbing, or edema. NEUROLOGIC: Cranial nerves II to XII grossly intact. Motor is 5/5 in all extremities. RECTAL: Refused and deferred. GENITOURINARY: Refused and deferred. PSYCHIATRIC: Mood and affect is intact. Assessment/Plan Assessment/Plan ASSESSMENT: 1. Left flank pain-pyelonephritis acute UTI-proteus mirabilis 2. Acute kidney injury with ATN, most likely secondary to the prerenal azotemia with dehydration. 3. HIV. 4. Rectal CA. 5. Hypertension. 6. Major depression. 7. Anxiety. 8. History of CVA in in 2004. PLAN: 1. Admit the patient to medical floor. 2. We will follow up with the ID consultation, Dr. Cordero. 3. Continue Rocephin per ID 4. Follow up with cultures. 5. Continue home medication. 6. Discussed with the patient with regard to plan of care. 7. Code status is Full Code. 8. DVT prophylaxis. Heparin subcutaneous. 9. I advised the patient to become more mobilized and ambulatory with the nurse mostly and we will monitor laboratory as well as culture. Trey Whitaker MD Sep 04, 2018 19:31
[2018-09-04 20:00] VITALS: BP 123/73
[2018-09-04] MEDS: Tamsulosin 0.4mg cap ORAL SCH (20:57)
[2018-09-04] MEDS: valACYclovir HCL 500mg tab ORAL SCH (20:58)
[2018-09-05] VITALS (10 sets, daily range): BP systolic 75–157; BP diastolic 39–98
[2018-09-05] MEDS: Morphine Sulfate 2mg/ml Inj(IV/IM USE ONLY) IVP PRN (00:41)
[2018-09-05] MEDS ORDERED: NS 275 ML IVPB SCH (03:41)
[2018-09-05 04:32] LABS: BASOPHILS % (AUTO) 0.5 % (0.0-2.0); HEMATOCRIT 38.2 % (42.0-52.0); HEMOGLOBIN 13.4 G/DL (14.2-18.0); LYMPHOCYTES % (AUTO) 21.1 % (20.0-45.0); MEAN CORPUSCULAR VOLUME 97 FL (80-99); MONOCYTES % (AUTO) 10.2 % (1.0-10.0); NEUTROPHILS % (AUTO) 67.3 % (45.0-75.0); PLATELET COUNT 167 K/UL (150-450); RED BLOOD COUNT 3.92 M/UL (4.70-6.10); RED CELL DISTRIBUTION WIDTH 12.6 % (11.6-14.8); WHITE BLOOD COUNT 12.1 K/UL (4.8-10.8)
[2018-09-05 04:56] LABS: ALANINE AMINOTRANSFERASE 12 U/L (12-78); ALBUMIN 2.9 G/DL (3.4-5.0); ALBUMIN/GLOBULIN RATIO 0.7 (1.0-2.7); ALKALINE PHOSPHATASE 82 U/L (46-116); ANION GAP 10 mmol/L (5-15); ASPARTATE AMINO TRANSFERASE 16 U/L (15-37); BILIRUBIN,TOTAL 0.9 MG/DL (0.2-1.0); BLOOD UREA NITROGEN 35 mg/dL (7-18); CALCIUM 8.6 MG/DL (8.5-10.1); CARBON DIOXIDE 24 MMOL/L (21-32); CHLORIDE 107 MMOL/L (98-107); CREATININE 2.3 MG/DL (0.55-1.30); POTASSIUM 3.9 MMOL/L (3.5-5.1); SODIUM 141 MMOL/L (136-145)
[2018-09-05] MEDS ORDERED: Sodium Chloride 550 ML IV SCH (05:41)
[2018-09-05] MEDS ORDERED: Mylanta II UD 30ml ORAL PRN (07:40)
[2018-09-05] MEDS ORDERED: LORazepam Inj 2mg/ml 1ml IV PRN (07:41)
[2018-09-05] MEDS ORDERED: Loperamide 2mg cap ORAL PRN (07:41)
[2018-09-05] MEDS ORDERED: Morphine Sulfate 2mg/ml Inj(IV/IM USE ONLY) IVP PRN (07:41)
[2018-09-05] MEDS ORDERED: Miralax 17gm pkt ORAL PRN (07:43)
[2018-09-05] MEDS ORDERED: Zolpidem 5mg tab ORAL PRN (07:44)
[2018-09-05] MEDS ORDERED: Dextrose 50% 25ml Syringe IV PRN (07:45)
[2018-09-05] MEDS ORDERED: Metoprolol 25mg tab ORAL SCH (09:00)
[2018-09-05] MEDS ORDERED: Losartan 50mg tab ORAL SCH (09:00)
--- NOTE | 2018-09-05 10:32 | Pulmonology Progress Note ---
Assessment/Plan Problems: (1) Sepsis (2) HIV (human immunodeficiency virus infection) (3) ATN (acute tubular necrosis) (4) UTI (urinary tract infection) (5) Degenerative disc disease (6) Severe protein-calorie malnutrition Assessment/Plan NS one liter bolus now hold BP meds renal electrolytes pt/ot improving check electrolytes check cultures pyruvate for dysuria GI evaluation stool for c-diff Subjective ROS Limited/Unobtainable: No Interval Events: pt was transferred to [facility] b/o of systolic BP of 70 Allergies: Coded Allergies: CODEINE (Unverified Allergy, Unknown, 11/28/17) EMTRICITABINE (Verified Allergy, Unknown, anxiousness, 08/31/18) SULFAMETHOXAZOLE (Unverified Allergy, Unknown, 10/27/17) TENOFOVIR (Verified Allergy, Unknown, anxiousness, 08/31/18) TRIMETHOPRIM (Unverified Allergy, Unknown, 10/27/17) Objective Last 24 Hour Vital Signs Date Time Temp Pulse Resp B/P (MAP) Pulse Ox O2 Delivery O2 Flow Rate FiO2 09/05/18 09:50 72 117/71 09/05/18 09:49 72 117/71 09/05/18 08:00 98.1 72 22 117/71 (86) 95 09/05/18 08:00 Nasal Cannula 2.0 09/05/18 04:45 Nasal Cannula 2.0 09/05/18 04:44 70 09/05/18 04:44 97.5 72 24 104/61 (75) 94 09/05/18 04:01 102/68 (79) 09/05/18 03:35 97.2 77 18 82/58 (66) 93 09/05/18 03:30 81 18 75/39 (51) 93 09/05/18 01:11 97.7 09/05/18 00:40 97.7 82 18 100/64 (76) 94 09/04/18 23:53 Nasal Cannula 2.0 09/04/18 20:58 80 123/73 09/04/18 20:00 97.7 80 18 123/73 (90) 94 09/04/18 11:48 98.4 96 18 130/86 (101) 96 09/04/18 11:44 96 130/86 09/04/18 11:43 96 130/86 09/04/18 11:39 130/86 Intake and Output 09/04/18 09/05/18 19:00 07:00 Intake Total 600 ml Output Total 0 ml Balance 600 ml Intake Oral 0 ml Other 600 ml Output Urine Total 0 ml General Appearance: WD/WN HEENT: normocephalic, atraumatic Respiratory/Chest: chest wall non-tender, lungs clear Cardiovascular: normal peripheral pulses, normal rate Abdomen: normal bowel sounds, soft, non tender Genitourinary: normal external genitalia Extremities: no cyanosis 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 Lymphatic: no neck adenopathy Laboratory Tests 09/05/18 04:18: White Blood Count 12.1H, Red Blood Count 3.92L, Hemoglobin 13.4L, Hematocrit 38.2L, Mean Corpuscular Volume 97, Mean Corpuscular Hemoglobin 34.1H, Mean Corpuscular Hemoglobin Concent 35.0, Red Cell Distribution Width 12.6, Platelet Count 167, Mean Platelet Volume 7.2, Neutrophils (%) (Auto) 67.3, Lymphocytes (% ) (Auto) 21.1, Monocytes (%) (Auto) 10.2H, Eosinophils (%) (Auto) 1.0, Basophils (%) (Auto) 0.5, Sodium Level 141, Potassium Level 3.9, Chloride Level 107, Carbon Dioxide Level 24, Anion Gap 10, Blood Urea Nitrogen 35H, Creatinine 2.3H, Estimat Glomerular Filtration Rate 28.3, Glucose Level 117H, Uric Acid [ Pending], Calcium Level 8.6, Total Bilirubin 0.9, Aspartate Amino Transf (AST/ SGOT) 16, Alanine Aminotransferase (ALT/SGPT) 12, Alkaline Phosphatase 82, Total Creatine Kinase [Pending], Total Protein 6.9, Albumin 2.9L, Globulin 4.0, Albumin/Globulin Ratio 0.7L Current Medications Medications (Trade) Dose Ordered Sig/Roman Route PRN Reason Start Time Stop Time Status Last Admin Dose Admin Acetaminophen (Tylenol) 650 mg Q4H PRN ORAL fever 09/05/18 07:40 09/30/18 07:39 Al Hydroxide/Mg Hydroxide (Mylanta II) 30 ml Q6H PRN ORAL dyspepsia 09/05/18 07:40 10/05/18 07:39 Al Hydroxide/Mg Hydroxide (Mylanta) 30 ml Q4H PRN ORAL Heartburn 09/05/18 07:42 10/03/18 07:41 Amlodipine Besylate (Norvasc) 10 mg DAILY ORAL 09/05/18 09:00 10/01/18 08:59 09/05/18 09:50 Atovaquone (Mepron Susp) 1,500 mg Q24H ORAL 09/05/18 13:00 10/05/18 12:59 Baclofen (Lioresal) 10 mg THREE TIMES A DAY ORAL 09/05/18 09:00 09/30/18 17:59 09/05/18 09:50 Bisacodyl (Dulcolax) 10 mg ONCE ORAL 09/05/18 16:00 09/05/18 17:00 Ceftriaxone Sodium 1 gm/ Dextrose 55 ml @ 110 mls/hr Q24H IVPB 09/05/18 18:00 09/08/18 17:59 Dextrose (Dextrose 50%) 25 ml Q30M PRN IV Hypoglycemia 09/05/18 07:45 10/05/18 07:35 Dextrose (Dextrose 50%) 50 ml Q30M PRN IV hypoglycemia 09/05/18 07:45 10/05/18 07:44 Gabapentin (Neurontin) 600 mg BID ORAL 09/05/18 09:00 10/01/18 08:59 09/05/18 09:50 Loperamide HCl (Imodium) 2 mg QIDPRN PRN ORAL Diarrhea 09/05/18 07:41 10/03/18 07:40 Lorazepam (Ativan 2mg/ml 1ml) 0.5 mg Q4H PRN IV For Anxiety 09/05/18 07:41 09/07/18 07:40 Losartan Potassium (Cozaar) 50 mg DAILY ORAL 09/05/18 09:00 10/01/18 08:59 Metoprolol Tartrate (Lopressor) 25 mg EVERY 12 HOURS ORAL 09/05/18 09:00 09/30/18 20:59 09/05/18 09:49 Mirtazapine (Remeron) 15 mg BEDTIME ORAL 09/05/18 21:00 09/30/18 20:59 Morphine Sulfate (Morphine Sulfate) 1 mg Q4H PRN IVP Moderate Pain (Pain Scale 4-6) 09/05/18 07:41 09/07/18 07:40 Ondansetron HCl (Zofran) 4 mg Q6H PRN IVP Nausea & Vomiting 09/05/18 07:42 09/30/18 07:41 Patient Own Medication (Patient's Own Med) 1 ea BID@0800,1999 ORAL 09/05/18 08:00 10/01/18 19:59 09/05/18 09:51 Patient Own Medication (Patient's Own Med) 1 ea BID@08,1999 ORAL 09/05/18 08:00 10/01/18 19:59 Patient Own Medication (Patient's Own Med) 1 ea DAILY@0800 ORAL 09/05/18 08:00 10/02/18 07:59 09/05/18 09:50 Phenazopyridine HCl (Pyridium) 100 mg THREE TIMES A DAY ORAL 09/05/18 09:00 10/01/18 17:59 09/05/18 09:50 Polyethylene Glycol (Miralax) 17 gm HSPRN PRN ORAL Constipation 09/05/18 07:43 09/30/18 07:42 Polyethylene Glycol/ Electrolytes (Nulytely) 4,000 ml ONCE ORAL 09/05/18 16:00 09/05/18 23:59 Tamsulosin HCl (Flomax) 0.4 mg BEDTIME ORAL 09/05/18 21:00 09/30/18 20:59 Valacyclovir HCl (Valtrex) 1,000 mg QHS ORAL 09/05/18 21:00 10/01/18 20:59 Zolpidem Tartrate (Ambien) 5 mg HSPRN PRN ORAL Insomnia 09/05/18 07:44 09/07/18 07:43 Oliverio Rm MD Sep 05, 2018 10:32
[2018-09-05 10:41] LABS: CREATINE KINASE 116 U/L (26-308)
--- NOTE | 2018-09-05 12:18 | GI Progress Note ---
Assessment/Plan Problems: (1) History of rectal cancer ICD Codes: Z85.048 - Personal history of other malignant neoplasm of rectum, rectosigmoid junction, and anus SNOMED: 281384330 (2) Severe protein-calorie malnutrition ICD Codes: E43 - Unspecified severe protein-calorie malnutrition SNOMED: 305046432 (3) Electrolyte imbalance ICD Codes: E87.8 - Other disorders of electrolyte and fluid balance, not elsewhere classified SNOMED: 671251580 (4) Diarrhea ICD Codes: R19.7 - Diarrhea, unspecified SNOMED: 94139172 (5) Dehydration ICD Codes: E86.0 - Dehydration SNOMED: 85163134 (6) Gastroenteritis ICD Codes: K52.9 - Noninfective gastroenteritis and colitis, unspecified SNOMED: 46844398 Status: unchanged Status Narrative Discussed with Dr. Germain Assessment/Plan Plan for colonoscopy tomorrow. -Clear liquid diet, n.p.o. at midnight -Hold all blood thinners tonight ppi zofran prn follow labs will follow with additional recommendations post procedure The patient was seen and examined at bedside and all new and available data was reviewed in the patients chart. I agree with the above findings, impression and plan. (Patient seen earlier today. Signature stamp does not reflect patient encounter time.). - Dejan Germain MD Subjective Gastrointestinal/Abdominal: Reports: no symptoms Objective Last 24 Hour Vital Signs Date Time Temp Pulse Resp B/P (MAP) Pulse Ox O2 Delivery O2 Flow Rate FiO2 09/05/18 12:00 Nasal Cannula 2.0 09/05/18 09:50 72 117/71 09/05/18 09:49 72 117/71 09/05/18 08:00 65 09/05/18 08:00 98.1 72 22 117/71 (86) 95 09/05/18 08:00 Nasal Cannula 2.0 09/05/18 04:45 Nasal Cannula 2.0 09/05/18 04:44 70 09/05/18 04:44 97.5 72 24 104/61 (75) 94 09/05/18 04:01 102/68 (79) 09/05/18 03:35 97.2 77 18 82/58 (66) 93 09/05/18 03:30 81 18 75/39 (51) 93 09/05/18 01:11 97.7 09/05/18 00:40 97.7 82 18 100/64 (76) 94 09/04/18 23:53 Nasal Cannula 2.0 09/04/18 20:58 80 123/73 09/04/18 20:00 97.7 80 18 123/73 (90) 94 Intake and Output 09/04/18 09/05/18 18:59 06:59 Intake Total 600 ml Output Total 0 ml Balance 600 ml Intake Oral 0 ml Other 600 ml Output Urine Total 0 ml Laboratory Tests Test 09/05/18 04:18 White Blood Count 12.1 K/UL (4.8-10.8) H Red Blood Count 3.92 M/UL (4.70-6.10) L Hemoglobin 13.4 G/DL (14.2-18.0) L Hematocrit 38.2 % (42.0-52.0) L Mean Corpuscular Volume 97 FL (80-99) Mean Corpuscular Hemoglobin 34.1 PG (27.0-31.0) H Mean Corpuscular Hemoglobin Concent 35.0 G/DL (32.0-36.0) Red Cell Distribution Width 12.6 % (11.6-14.8) Platelet Count 167 K/UL (150-450) Mean Platelet Volume 7.2 FL (6.5-10.1) Neutrophils (%) (Auto) 67.3 % (45.0-75.0) Lymphocytes (%) (Auto) 21.1 % (20.0-45.0) Monocytes (%) (Auto) 10.2 % (1.0-10.0) H Eosinophils (%) (Auto) 1.0 % (0.0-3.0) Basophils (%) (Auto) 0.5 % (0.0-2.0) Sodium Level 141 MMOL/L (136-145) Potassium Level 3.9 MMOL/L (3.5-5.1) Chloride Level 107 MMOL/L (98-107) Carbon Dioxide Level 24 MMOL/L (21-32) Anion Gap 10 mmol/L (5-15) Blood Urea Nitrogen 35 mg/dL (7-18) H Creatinine 2.3 MG/DL (0.55-1.30) H Estimat Glomerular Filtration Rate 28.3 mL/min (>60) Glucose Level 117 MG/DL (74-106) H Uric Acid 4.5 MG/DL (2.6-7.2) Calcium Level 8.6 MG/DL (8.5-10.1) Total Bilirubin 0.9 MG/DL (0.2-1.0) Aspartate Amino Transf (AST/SGOT) 16 U/L (15-37) Alanine Aminotransferase (ALT/SGPT) 12 U/L (12-78) Alkaline Phosphatase 82 U/L (46-116) Total Creatine Kinase 116 U/L (26-308) Total Protein 6.9 G/DL (6.4-8.2) Albumin 2.9 G/DL (3.4-5.0) L Globulin 4.0 g/dL Albumin/Globulin Ratio 0.7 (1.0-2.7) L Height (Feet): 5 Height (Inches): 5.00 Weight (Pounds): 164 General Appearance: WD/WN, no apparent distress, alert Cardiovascular: normal rate Respiratory/Chest: normal breath sounds, no respiratory distress Abdominal Exam: normal bowel sounds, non tender, soft Extremities: normal range of motion, non-tender Objective Became hypotensive, [employer]READ [employer] called Jasen Brink NP Sep 05, 2018 12:18
[2018-09-05] MEDS ORDERED: Atovaquone 750mg/5ml Susp ORAL SCH (13:00)
--- NOTE | 2018-09-05 13:23 | Infectious Diseases Prog Note ---
Assessment/Plan Assessment/Plan Assessment: UTI (frequency, dysuria) -u/a wbc 10-15, shirley neg, leuk +3; ucx >100K PROTEUS MIRABILIS ( I Levo; R Amp, bactrim, Cipro, Nitro; S Ceftriaxone) Afebrile Mild leukocytosis Diarrhea- r/o cdiff, parasitic HIV- on ARV (per pt VL UD) -09/2018 182 (10.1%) -11/2017 CD4 323 hx of rectal CA CVA 2004 HTN Plan: -Continue Ceftriaxone # 6 /7 for UTI -upon discharge can be transitioned to PO Cefdinir 300mg bid -Conitnue Atovaquone for PCP ppx as CD4 <200 on valtrex -Contiue ARV (Genvoya, prezista, intelence) -f/u cx -Monitor CBC/CMP, temperatures -fu Cdiff, stool cx, O+p Subjective Allergies: Coded Allergies: CODEINE (Unverified Allergy, Unknown, 11/28/17) EMTRICITABINE (Verified Allergy, Unknown, anxiousness, 08/31/18) SULFAMETHOXAZOLE (Unverified Allergy, Unknown, 10/27/17) TENOFOVIR (Verified Allergy, Unknown, anxiousness, 08/31/18) TRIMETHOPRIM (Unverified Allergy, Unknown, 10/27/17) Subjective afebrile mild leukocytosis Objective Vital Signs Last 24 Hour Vital Signs Date Time Temp Pulse Resp B/P (MAP) Pulse Ox O2 Delivery O2 Flow Rate FiO2 09/05/18 12:00 Nasal Cannula 2.0 09/05/18 12:00 97.2 71 22 148/92 (110) 94 09/05/18 11:33 70 09/05/18 09:50 72 117/71 09/05/18 09:49 72 117/71 09/05/18 08:00 65 09/05/18 08:00 98.1 72 22 117/71 (86) 95 09/05/18 08:00 Nasal Cannula 2.0 09/05/18 04:45 Nasal Cannula 2.0 09/05/18 04:44 70 09/05/18 04:44 97.5 72 24 104/61 (75) 94 09/05/18 04:01 102/68 (79) 09/05/18 03:35 97.2 77 18 82/58 (66) 93 09/05/18 03:30 81 18 75/39 (51) 93 09/05/18 01:11 97.7 09/05/18 00:40 97.7 82 18 100/64 (76) 94 09/04/18 23:53 Nasal Cannula 2.0 09/04/18 20:58 80 123/73 09/04/18 20:00 97.7 80 18 123/73 (90) 94 Height (Feet): 5 Height (Inches): 5.00 Weight (Pounds): 164 Objective GENERAL: The patient awake, responsive, in no acute distress. HEAD AND NECK: Pupils equal and reactive to light. Extraocular movements intact. Right eye has ptosis. Neck was supple. No JVD. LUNGS: Good air entry. No wheezing or rales. HEART: S1, S2. Regular rate and rhythm. No murmur or gallops. ABDOMEN: Soft, nondistended, nontender. Positive bowel sounds. Left flank tenderness on deep palpation. No rebound tenderness. No fluid shift. EXTREMITIES: No cyanosis, clubbing, or edema. NEUROLOGIC: Cranial nerves II to XII grossly intact. Motor is 5/5 in all extremities. PSYCHIATRIC: Mood and affect is intact. Laboratory Tests Test 09/05/18 04:18 White Blood Count 12.1 K/UL (4.8-10.8) H Red Blood Count 3.92 M/UL (4.70-6.10) L Hemoglobin 13.4 G/DL (14.2-18.0) L Hematocrit 38.2 % (42.0-52.0) L Mean Corpuscular Volume 97 FL (80-99) Mean Corpuscular Hemoglobin 34.1 PG (27.0-31.0) H Mean Corpuscular Hemoglobin Concent 35.0 G/DL (32.0-36.0) Red Cell Distribution Width 12.6 % (11.6-14.8) Platelet Count 167 K/UL (150-450) Mean Platelet Volume 7.2 FL (6.5-10.1) Neutrophils (%) (Auto) 67.3 % (45.0-75.0) Lymphocytes (%) (Auto) 21.1 % (20.0-45.0) Monocytes (%) (Auto) 10.2 % (1.0-10.0) H Eosinophils (%) (Auto) 1.0 % (0.0-3.0) Basophils (%) (Auto) 0.5 % (0.0-2.0) Sodium Level 141 MMOL/L (136-145) Potassium Level 3.9 MMOL/L (3.5-5.1) Chloride Level 107 MMOL/L (98-107) Carbon Dioxide Level 24 MMOL/L (21-32) Anion Gap 10 mmol/L (5-15) Blood Urea Nitrogen 35 mg/dL (7-18) H Creatinine 2.3 MG/DL (0.55-1.30) H Estimat Glomerular Filtration Rate 28.3 mL/min (>60) Glucose Level 117 MG/DL (74-106) H Uric Acid 4.5 MG/DL (2.6-7.2) Calcium Level 8.6 MG/DL (8.5-10.1) Total Bilirubin 0.9 MG/DL (0.2-1.0) Aspartate Amino Transf (AST/SGOT) 16 U/L (15-37) Alanine Aminotransferase (ALT/SGPT) 12 U/L (12-78) Alkaline Phosphatase 82 U/L (46-116) Total Creatine Kinase 116 U/L (26-308) Total Protein 6.9 G/DL (6.4-8.2) Albumin 2.9 G/DL (3.4-5.0) L Globulin 4.0 g/dL Albumin/Globulin Ratio 0.7 (1.0-2.7) L Current Medications Medications (Trade) Dose Ordered Sig/Roman Route PRN Reason Start Time Stop Time Status Last Admin Dose Admin Acetaminophen (Tylenol) 650 mg Q4H PRN ORAL fever 09/05/18 07:40 09/30/18 07:39 Al Hydroxide/Mg Hydroxide (Mylanta II) 30 ml Q6H PRN ORAL dyspepsia 09/05/18 07:40 10/05/18 07:39 Atovaquone (Mepron Susp) 1,500 mg Q24H ORAL 09/05/18 13:00 10/05/18 12:59 Baclofen (Lioresal) 10 mg THREE TIMES A DAY ORAL 09/05/18 09:00 09/30/18 17:59 09/05/18 09:50 Bisacodyl (Dulcolax) 10 mg ONCE ORAL 09/05/18 16:00 09/05/18 17:00 Ceftriaxone Sodium 1 gm/ Dextrose 55 ml @ 110 mls/hr Q24H IVPB 09/05/18 18:00 09/08/18 17:59 Dextrose (Dextrose 50%) 25 ml Q30M PRN IV Hypoglycemia 09/05/18 07:45 10/05/18 07:35 Dextrose (Dextrose 50%) 50 ml Q30M PRN IV hypoglycemia 09/05/18 07:45 10/05/18 07:44 Gabapentin (Neurontin) 600 mg BID ORAL 09/05/18 09:00 10/01/18 08:59 09/05/18 09:50 Loperamide HCl (Imodium) 2 mg QIDPRN PRN ORAL Diarrhea 09/05/18 07:41 10/03/18 07:40 Lorazepam (Ativan 2mg/ml 1ml) 0.5 mg Q4H PRN IV For Anxiety 09/05/18 07:41 09/07/18 07:40 Mirtazapine (Remeron) 15 mg BEDTIME ORAL 09/05/18 21:00 09/30/18 20:59 Morphine Sulfate (Morphine Sulfate) 1 mg Q4H PRN IVP Moderate Pain (Pain Scale 4-6) 09/05/18 07:41 09/07/18 07:40 Ondansetron HCl (Zofran) 4 mg Q6H PRN IVP Nausea & Vomiting 09/05/18 07:42 09/30/18 07:41 Patient Own Medication (Patient's Own Med) 1 ea BID@08 ORAL 09/05/18 08:00 10/01/18 19:59 09/05/18 09:51 Patient Own Medication (Patient's Own Med) 1 ea BID@0800,1999 ORAL 09/05/18 08:00 10/01/18 19:59 Patient Own Medication (Patient's Own Med) 1 ea DAILY@0800 ORAL 09/05/18 08:00 10/02/18 07:59 09/05/18 09:50 Phenazopyridine HCl (Pyridium) 100 mg THREE TIMES A DAY ORAL 09/05/18 09:00 10/01/18 17:59 09/05/18 09:50 Polyethylene Glycol/ Electrolytes (Nulytely) 4,000 ml ONCE ORAL 09/05/18 16:00 09/05/18 23:59 Tamsulosin HCl (Flomax) 0.4 mg BEDTIME ORAL 09/05/18 21:00 09/30/18 20:59 Valacyclovir HCl (Valtrex) 1,000 mg QHS ORAL 09/05/18 21:00 10/01/18 20:59 Zolpidem Tartrate (Ambien) 5 mg HSPRN PRN ORAL Insomnia 09/05/18 07:44 09/07/18 07:43 Miranda Cordero M.D. Sep 05, 2018 13:23
[2018-09-05] MEDS: Vancomycin oral 125mg/2.5ml ORAL SCH ×3 (15:47→20:17)
[2018-09-05] MEDS ORDERED: Nulytely 4L ORAL SCH (16:00)
[2018-09-05] MEDS ORDERED: Bisacodyl EC 5mg tab ORAL SCH (16:00)
[2018-09-05] MEDS: cefTRIAXone 1 GM in D5W 55 ML IVPB SCH (17:35)
[2018-09-05 19:10] LABS: APPEARANCE,URINE CLEAR; BILIRUBIN, URINE 2+ (NEGATIVE); COLOR,URINE BROWN; GLUCOSE, URINE (UA) NEGATIVE (NEGATIVE); KETONES,URINE NEGATIVE (NEGATIVE); LEUKOCYTE ESTERASE ,URINE 1+ (NEGATIVE); NITRITE,URINE POSITIVE (NEGATIVE); PH,URINE 5 (4.5-8.0); PROTEIN,URINE 2+ (NEGATIVE); UROBILINOGEN,URINE 8 MG/DL (0.0-1.0)
--- NOTE | 2018-09-05 19:10 | Internal Med Progress Note ---
Subjective Date of Service: Sep 05, 2018 Physician Name Trey Whitaker Attending Physician Carlos Barragan MD Current Medications Medications (Trade) Dose Ordered Sig/Roman Route PRN Reason Start Time Stop Time Status Last Admin Dose Admin Acetaminophen (Tylenol) 650 mg Q4H PRN ORAL fever 09/05/18 07:40 09/30/18 07:39 Al Hydroxide/Mg Hydroxide (Mylanta II) 30 ml Q6H PRN ORAL dyspepsia 09/05/18 07:40 10/05/18 07:39 Atovaquone (Mepron Susp) 1,500 mg Q24H ORAL 09/05/18 13:00 10/05/18 12:59 09/05/18 13:44 Baclofen (Lioresal) 10 mg THREE TIMES A DAY ORAL 09/05/18 09:00 09/30/18 17:59 09/05/18 17:35 Ceftriaxone Sodium 1 gm/ Dextrose 55 ml @ 110 mls/hr Q24H IVPB 09/05/18 18:00 09/08/18 17:59 09/05/18 17:35 Dextrose (Dextrose 50%) 25 ml Q30M PRN IV Hypoglycemia 09/05/18 07:45 10/05/18 07:35 Dextrose (Dextrose 50%) 50 ml Q30M PRN IV hypoglycemia 09/05/18 07:45 10/05/18 07:44 Gabapentin (Neurontin) 600 mg BID ORAL 09/05/18 09:00 10/01/18 08:59 09/05/18 17:35 Loperamide HCl (Imodium) 2 mg QIDPRN PRN ORAL Diarrhea 09/05/18 07:41 10/03/18 07:40 Lorazepam (Ativan 2mg/ml 1ml) 0.5 mg Q4H PRN IV For Anxiety 09/05/18 07:41 09/07/18 07:40 Mirtazapine (Remeron) 15 mg BEDTIME ORAL 09/05/18 21:00 09/30/18 20:59 Morphine Sulfate (Morphine Sulfate) 1 mg Q4H PRN IVP Moderate Pain (Pain Scale 4-6) 09/05/18 07:41 09/07/18 07:40 Ondansetron HCl (Zofran) 4 mg Q6H PRN IVP Nausea & Vomiting 09/05/18 07:42 09/30/18 07:41 Patient Own Medication (Patient's Own Med) 1 ea BID@08 ORAL 09/05/18 08:00 10/01/18 19:59 09/05/18 09:51 Patient Own Medication (Patient's Own Med) 1 ea BID@0800,1999 ORAL 09/05/18 08:00 10/01/18 19:59 Patient Own Medication (Patient's Own Med) 1 ea DAILY@0800 ORAL 09/05/18 08:00 10/02/18 07:59 09/05/18 09:50 Phenazopyridine HCl (Pyridium) 100 mg THREE TIMES A DAY ORAL 09/05/18 09:00 10/01/18 17:59 09/05/18 17:35 Polyethylene Glycol/ Electrolytes (Nulytely) 4,000 ml ONCE ORAL 09/05/18 16:00 09/05/18 23:59 09/05/18 15:47 Tamsulosin HCl (Flomax) 0.4 mg BEDTIME ORAL 09/05/18 21:00 09/30/18 20:59 Valacyclovir HCl (Valtrex) 1,000 mg QHS ORAL 09/05/18 21:00 10/01/18 20:59 Vancomycin HCl (Firvanq) 125 mg FOUR TIMES A DAY ORAL 09/05/18 15:00 09/12/18 14:59 09/05/18 17:35 Zolpidem Tartrate (Ambien) 5 mg HSPRN PRN ORAL Insomnia 09/05/18 07:44 09/07/18 07:43 Allergies: Coded Allergies: CODEINE (Unverified Allergy, Unknown, 11/28/17) EMTRICITABINE (Verified Allergy, Unknown, anxiousness, 08/31/18) SULFAMETHOXAZOLE (Unverified Allergy, Unknown, 10/27/17) TENOFOVIR (Verified Allergy, Unknown, anxiousness, 08/31/18) TRIMETHOPRIM (Unverified Allergy, Unknown, 10/27/17) ROS Limited/Unobtainable: Yes Subjective 68 YO M admitted with flank pain. Cover for Int med-DR Barragan. Transferred to [facility] overnight for hypotension. Objective Last Vital Signs Date Time Temp Pulse Resp B/P (MAP) Pulse Ox O2 Delivery O2 Flow Rate FiO2 09/05/18 17:01 79 09/05/18 16:00 98.2 18 130/80 (97) 94 09/05/18 16:00 Nasal Cannula 2.0 09/05/18 06:42 28 Laboratory Tests Test 09/05/18 04:18 09/05/18 18:11 White Blood Count 12.1 K/UL (4.8-10.8) H Red Blood Count 3.92 M/UL (4.70-6.10) L Hemoglobin 13.4 G/DL (14.2-18.0) L Hematocrit 38.2 % (42.0-52.0) L Mean Corpuscular Volume 97 FL (80-99) Mean Corpuscular Hemoglobin 34.1 PG (27.0-31.0) H Mean Corpuscular Hemoglobin Concent 35.0 G/DL (32.0-36.0) Red Cell Distribution Width 12.6 % (11.6-14.8) Platelet Count 167 K/UL (150-450) Mean Platelet Volume 7.2 FL (6.5-10.1) Neutrophils (%) (Auto) 67.3 % (45.0-75.0) Lymphocytes (%) (Auto) 21.1 % (20.0-45.0) Monocytes (%) (Auto) 10.2 % (1.0-10.0) H Eosinophils (%) (Auto) 1.0 % (0.0-3.0) Basophils (%) (Auto) 0.5 % (0.0-2.0) Sodium Level 141 MMOL/L (136-145) Potassium Level 3.9 MMOL/L (3.5-5.1) Chloride Level 107 MMOL/L (98-107) Carbon Dioxide Level 24 MMOL/L (21-32) Anion Gap 10 mmol/L (5-15) Blood Urea Nitrogen 35 mg/dL (7-18) H Creatinine 2.3 MG/DL (0.55-1.30) H Estimat Glomerular Filtration Rate 28.3 mL/min (>60) Glucose Level 117 MG/DL (74-106) H Uric Acid 4.5 MG/DL (2.6-7.2) Calcium Level 8.6 MG/DL (8.5-10.1) Total Bilirubin 0.9 MG/DL (0.2-1.0) Aspartate Amino Transf (AST/SGOT) 16 U/L (15-37) Alanine Aminotransferase (ALT/SGPT) 12 U/L (12-78) Alkaline Phosphatase 82 U/L (46-116) Total Creatine Kinase 116 U/L (26-308) Total Protein 6.9 G/DL (6.4-8.2) Albumin 2.9 G/DL (3.4-5.0) L Globulin 4.0 g/dL Albumin/Globulin Ratio 0.7 (1.0-2.7) L Urine Color Pending Urine Appearance Pending Urine pH Pending Urine Specific [place] Pending Urine Protein Pending Urine Glucose (UA) Pending Urine Ketones Pending Urine Blood Pending Urine Nitrite Pending Urine Bilirubin Pending Urine Urobilinogen Pending Urine Leukocyte Esterase Pending Urine RBC Pending Urine WBC Pending Urine Squamous Epithelial Cells Pending Urine Bacteria Pending Urine Eosinophils Pending Urine Random Sodium 56 mmol/L (20-110) Urine Potassium Timed 31 mmol/L (12-62) Intake and Output 09/04/18 09/05/18 19:00 07:00 Intake Total 600 ml Output Total 0 ml Balance 600 ml Intake Oral 0 ml Other 600 ml Output Urine Total 0 ml Objective PHYSICAL EXAMINATION: GENERAL: The patient awake, responsive, in no acute distress. HEAD AND NECK: Pupils equal and reactive to light. Extraocular movements intact. Right eye has ptosis. Neck was supple. No JVD. LUNGS: Good air entry. No wheezing or rales. HEART: S1, S2. Regular rate and rhythm. No murmur or gallops. ABDOMEN: Soft, nondistended, nontender. Positive bowel sounds. Left flank tenderness on deep palpation. No rebound tenderness. No fluid shift. EXTREMITIES: No cyanosis, clubbing, or edema. NEUROLOGIC: Cranial nerves II to XII grossly intact. Motor is 5/5 in all extremities. RECTAL: Refused and deferred. GENITOURINARY: Refused and deferred. PSYCHIATRIC: Mood and affect is intact. Assessment/Plan Assessment/Plan ASSESSMENT: 1. Left flank pain-pyelonephritis acute UTI-proteus mirabilis 2. Acute kidney injury with ATN, most likely secondary to the prerenal azotemia with dehydration. 3. HIV. 4. Rectal CA. 5. Hypertension. 6. Major depression. 7. Anxiety. 8. History of CVA in in 2004. 9. Hypotension-resolved with fluid bolus PLAN: 1. Admit the patient to medical floor. 2. We will follow up with the ID consultation, Dr. Cordero. 3. Continue Rocephin per ID 4. Follow up with cultures. 5. Continue home medication. 6. Discussed with the patient with regard to plan of care. 7. Code status is Full Code. 8. DVT prophylaxis. Heparin subcutaneous. 9. I advised the patient to become more mobilized and ambulatory with the nurse mostly and we will monitor laboratory as well as culture. Trey Whitaker MD Sep 05, 2018 19:10
[2018-09-05] MEDS: valACYclovir HCL 500mg tab ORAL SCH (20:17)
[2018-09-05] MEDS: Tamsulosin 0.4mg cap ORAL SCH (20:18)
[2018-09-06] VITALS (10 sets, daily range): BP systolic 119–162; BP diastolic 56–95
[2018-09-06 05:41] LABS: BASOPHILS % (AUTO) 0.4 % (0.0-2.0); HEMATOCRIT 40.4 % (42.0-52.0); HEMOGLOBIN 13.9 G/DL (14.2-18.0); LYMPHOCYTES % (AUTO) 9.6 % (20.0-45.0); MEAN CORPUSCULAR VOLUME 98 FL (80-99); MONOCYTES % (AUTO) 6.3 % (1.0-10.0); NEUTROPHILS % (AUTO) 83.7 % (45.0-75.0); PLATELET COUNT 152 K/UL (150-450); RED BLOOD COUNT 4.13 M/UL (4.70-6.10); RED CELL DISTRIBUTION WIDTH 12.6 % (11.6-14.8); WHITE BLOOD COUNT 16.1 K/UL (4.8-10.8)
[2018-09-06 06:13] LABS: ANION GAP 13 mmol/L (5-15); BLOOD UREA NITROGEN 25 mg/dL (7-18); CALCIUM 8.5 MG/DL (8.5-10.1); CARBON DIOXIDE 23 MMOL/L (21-32); CHLORIDE 111 MMOL/L (98-107); CREATININE 1.2 MG/DL (0.55-1.30); POTASSIUM 3.8 MMOL/L (3.5-5.1); SODIUM 146 MMOL/L (136-145)
--- NOTE | 2018-09-06 07:12 | Anethesia Preoperative Eval ---
Anesthesia Pre-op PMH/ROS General Date of Evaluation: Sep 06, 2018 Time of Evaluation: 07:06 Anesthesiologist: liyah ASA Score: ASA 3 Mallampati Score Class I : Soft palate, uvula, fauces, pillars visible Class II: Soft palate, uvula, fauces visible Class III: Soft palate, base of uvula visible Class IV: Only hard plate visible Mallampati Classification: Class II Surgeon: mariya Diagnosis: rectal cancer Surgical Procedure: colonoscopy Anesthesia History: none Social History: smoking - former smoker, alcohol use, drug use Family History: no anesthesia problems Allergies: Coded Allergies: CODEINE (Unverified Allergy, Unknown, 11/28/17) EMTRICITABINE (Verified Allergy, Unknown, anxiousness, 08/31/18) SULFAMETHOXAZOLE (Unverified Allergy, Unknown, 10/27/17) TENOFOVIR (Verified Allergy, Unknown, anxiousness, 08/31/18) TRIMETHOPRIM (Unverified Allergy, Unknown, 10/27/17) Medications: see eMAR Patient NPO?: Yes Past Medical History Cardiovascular: Reports: HTN Gastrointestinal/Genitourinary: Reports: other - hiatal hernia, gastroenteritis , diarrhea, rectal cancer, atn, uti, kidney stones 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: Reports: CVA, other - generalized weakness, Hematology/Immune: Reports: other - hiv Musculoskeletal/Integumentary: Reports: DDD Anesthesia Pre-op Phys. Exam Physician Exam Last Vital Signs Date Time Temp Pulse Resp B/P (MAP) Pulse Ox O2 Delivery O2 Flow Rate FiO2 09/06/18 05:23 98.9 09/06/18 04:00 105 09/06/18 04:00 Nasal Cannula 2.0 09/06/18 04:00 23 140/88 (105) 98 09/05/18 06:42 28 Constitutional: NAD Neurologic: CN 2-12 intact Cardiovascular: RRR Respiratory: CTA Gastrointestinal: S/NT/ND Airway Exam Mallampati Score: Class II MO: limited Neck: flexible TMD: 2fb ROM: limited Anesthesia Pre-op A/P Labs Hematology Test 09/06/18 03:45 White Blood Count 16.1 K/UL (4.8-10.8) H Red Blood Count 4.13 M/UL (4.70-6.10) L Hemoglobin 13.9 G/DL (14.2-18.0) L Hematocrit 40.4 % (42.0-52.0) L Mean Corpuscular Volume 98 FL (80-99) Mean Corpuscular Hemoglobin 33.6 PG (27.0-31.0) H Mean Corpuscular Hemoglobin Concent 34.4 G/DL (32.0-36.0) Red Cell Distribution Width 12.6 % (11.6-14.8) Platelet Count 152 K/UL (150-450) Mean Platelet Volume 8.0 FL (6.5-10.1) Neutrophils (%) (Auto) 83.7 % (45.0-75.0) H Lymphocytes (%) (Auto) 9.6 % (20.0-45.0) L Monocytes (%) (Auto) 6.3 % (1.0-10.0) Eosinophils (%) (Auto) 0.0 % (0.0-3.0) Basophils (%) (Auto) 0.4 % (0.0-2.0) Coagulation Test 09/06/18 03:45 Prothrombin Time 10.7 SEC (9.30-11.50) Prothromb Time International Ratio 1.0 (0.9-1.1) Activated Partial Thromboplast Time 27 SEC (23-33) Chemistry Test 09/06/18 03:45 Sodium Level 146 MMOL/L (136-145) H Potassium Level 3.8 MMOL/L (3.5-5.1) Chloride Level 111 MMOL/L (98-107) H Carbon Dioxide Level 23 MMOL/L (21-32) Anion Gap 13 mmol/L (5-15) Blood Urea Nitrogen 25 mg/dL (7-18) H Creatinine 1.2 MG/DL (0.55-1.30) Estimat Glomerular Filtration Rate 59.9 mL/min (>60) Glucose Level 98 MG/DL (74-106) Calcium Level 8.5 MG/DL (8.5-10.1) Risk Assessment & Plan Assessment: asa3 Plan: mac Status Change Before Surgery: No Pre-Antibiotics Drug: Love Manning MD Sep 06, 2018 07:12
[2018-09-06] MEDS ORDERED: Atropine Sulfate 0.4mg/ml inj IVP PRN (07:15)
[2018-09-06] MEDS ORDERED: fentaNYL 100 mcg/2 mL IV PRN (07:15)
[2018-09-06] MEDS ORDERED: Midazolam 2mg/2ml Inj IVP PRN (07:15)
[2018-09-06] MEDS ORDERED: DiphenhydrAMINE 50mg/ml Inj IVP PRN (07:15)
[2018-09-06] MEDS ORDERED: Propofol 200mg/20ml IV ONE (08:00)
[2018-09-06] MEDS ORDERED: Lidocaine 1% MPF 10mg/ml 5ml ONE (08:00)
[2018-09-06] MEDS ORDERED: NS 500ML IVPB ONE (08:00)
--- NOTE | 2018-09-06 08:07 | Pre-Procedure Note/Attestation ---
Pre-Procedure Note/Attestation Complete Prior to Procedure Planned Procedure: not applicable Procedure Narrative: colonoscopy Indications for Procedure Pre-Operative Diagnosis: chronic diarrhea Attestation I attest that I discussed the nature of the procedure; its benefits; risks and complications; and alternatives (and the risks and benefits of such alternatives ), prior to the procedure, with the patient (or the patient's legal charter representative). I attest that, if there was a reasonable possibility of needing a blood transfusion, the patient (or the patient's legal charter representative) was given the [facility] standardized written summary, pursuant to the [place] Blood Safety Act ([place] Health and Safety Code # 1645, as amended). I attest that I re-evaluated the patient just prior to the surgery and that there has been no change in the patient's H&P, except as documented below: Dejan Germain MD Sep 06, 2018 08:07
--- NOTE | 2018-09-06 08:08 | GI Progress Note ---
Assessment/Plan Problems: (1) Degenerative disc disease SNOMED: 01526695 (2) HIV (human immunodeficiency virus infection) ICD Codes: B20 - Human immunodeficiency virus [HIV] disease SNOMED: 19828707 (3) Intractable abdominal pain ICD Codes: R10.9 - Unspecified abdominal pain SNOMED: 90461121, 761322119 (4) History of rectal cancer ICD Codes: Z85.048 - Personal history of other malignant neoplasm of rectum, rectosigmoid junction, and anus SNOMED: 731349785 (5) Diarrhea ICD Codes: R19.7 - Diarrhea, unspecified SNOMED: 38328798 Assessment/Plan plan colonoscopy for today Subjective Gastrointestinal/Abdominal: Reports: no symptoms Objective Last 24 Hour Vital Signs Date Time Temp Pulse Resp B/P (MAP) Pulse Ox O2 Delivery O2 Flow Rate FiO2 09/06/18 05:23 98.9 09/06/18 04:00 105 09/06/18 04:00 Nasal Cannula 2.0 09/06/18 04:00 99.9 102 23 140/88 (105) 98 09/06/18 00:00 99.7 96 24 162/95 (117) 95 09/06/18 00:00 Nasal Cannula 2.0 09/06/18 00:00 106 09/05/18 20:00 98.8 96 24 157/98 (117) 93 09/05/18 20:00 Nasal Cannula 2.0 09/05/18 19:55 97 09/05/18 17:01 79 09/05/18 16:00 98.2 105 18 130/80 (97) 94 09/05/18 16:00 Nasal Cannula 2.0 09/05/18 12:00 Nasal Cannula 2.0 09/05/18 12:00 97.2 71 22 148/92 (110) 94 09/05/18 11:33 70 09/05/18 09:50 72 117/71 09/05/18 09:49 72 117/71 Intake and Output 09/05/18 09/06/18 19:00 07:00 Intake Total 600 ml 240 ml Output Total 600 ml Balance 600 ml -360 ml Intake Oral 600 ml 240 ml Output Urine Total 600 ml # Bowel Movements 9 Laboratory Tests Test 09/05/18 18:11 09/06/18 03:45 09/06/18 04:00 Urine Color Brown Urine Appearance Clear Urine pH 5 (4.5-8.0) Urine Specific [place] 1.015 (1.005-1.035) Urine Protein 2+ (NEGATIVE) H Urine Glucose (UA) Negative (NEGATIVE) Urine Ketones Negative (NEGATIVE) Urine Blood Negative (NEGATIVE) Urine Nitrite Positive (NEGATIVE) H Urine Bilirubin 2+ (NEGATIVE) H Urine Ictotest Negative (NEGATIVE) Urine Urobilinogen 8 MG/DL (0.0-1.0) H Urine Leukocyte Esterase 1+ (NEGATIVE) H Urine RBC 0-2 /HPF (0 - 0) H Urine WBC 2-4 /HPF (0 - 0) Urine Squamous Epithelial Cells None /LPF (NONE/OCC) Urine Bacteria Few /HPF (NONE) Urine Eosinophils None seen (NONE SEEN) Urine Random Sodium 56 mmol/L (20-110) Urine Potassium Timed 31 mmol/L (12-62) White Blood Count 16.1 K/UL (4.8-10.8) H Red Blood Count 4.13 M/UL (4.70-6.10) L Hemoglobin 13.9 G/DL (14.2-18.0) L Hematocrit 40.4 % (42.0-52.0) L Mean Corpuscular Volume 98 FL (80-99) Mean Corpuscular Hemoglobin 33.6 PG (27.0-31.0) H Mean Corpuscular Hemoglobin Concent 34.4 G/DL (32.0-36.0) Red Cell Distribution Width 12.6 % (11.6-14.8) Platelet Count 152 K/UL (150-450) Mean Platelet Volume 8.0 FL (6.5-10.1) Neutrophils (%) (Auto) 83.7 % (45.0-75.0) H Lymphocytes (%) (Auto) 9.6 % (20.0-45.0) L Monocytes (%) (Auto) 6.3 % (1.0-10.0) Eosinophils (%) (Auto) 0.0 % (0.0-3.0) Basophils (%) (Auto) 0.4 % (0.0-2.0) Prothrombin Time 10.7 SEC (9.30-11.50) Prothromb Time International Ratio 1.0 (0.9-1.1) Activated Partial Thromboplast Time 27 SEC (23-33) Sodium Level 146 MMOL/L (136-145) H Potassium Level 3.8 MMOL/L (3.5-5.1) Chloride Level 111 MMOL/L (98-107) H Carbon Dioxide Level 23 MMOL/L (21-32) Anion Gap 13 mmol/L (5-15) Blood Urea Nitrogen 25 mg/dL (7-18) H Creatinine 1.2 MG/DL (0.55-1.30) Estimat Glomerular Filtration Rate 59.9 mL/min (>60) Glucose Level 98 MG/DL (74-106) Calcium Level 8.5 MG/DL (8.5-10.1) Stool Cyclospora Smear Pending Cryptosporidium Exam (LAB) Pending Giardia Antigen Pending Isospora Exam Pending Microsporidia Identification Pending Height (Feet): 5 Height (Inches): 5.00 Weight (Pounds): 0 General Appearance: alert Cardiovascular: normal rate Respiratory/Chest: lungs clear Abdominal Exam: normal bowel sounds, non tender, soft Extremities: non-tender Dejan Germain MD Sep 06, 2018 08:08
--- NOTE | 2018-09-06 08:37 | Endoscopy Procedure Note ---
Endoscopy Procedure Note General Indication for Procedure: diarrhea Procedures Performed: colonoscopy Operative Findings/Diagnosis: proctitis Specimen: yes Pt Tolerated Procedure Well: Yes Estimated Blood Loss: none Anesthesia Anesthesiologist: acosta Anesthesia: MAC Inserted Devices Implant(s) used?: No Quality Quality of Bowel Preparation: Fair GI Core Measures 50 yrs or older w/o bx or poly: Not Applicable 10yrs. F/U not recommended: Not Applicable Dejan Germain MD Sep 06, 2018 08:37
[2018-09-06] MEDS: Vancomycin oral 125mg/2.5ml ORAL SCH ×4 (09:00→21:29)
--- NOTE | 2018-09-06 09:56 | Immediate Post-Op Evaluation ---
Immediate Post-Op Evalulation Immediate Post-Op Evalulation Procedure: colonoscopy w/bx Date of Evaluation: Sep 06, 2018 Time of Evaluation: 08:59 IV Fluids: 200ml 0.9ns Blood Products: none Estimated Blood Loss: negligible Blood Pressure Systolic: 119 Blood Pressure Diastolic: 78 Pulse Rate: 79 Respiratory Rate: 18 O2 Sat by Pulse Oximetry: 98 Temperature (Fahrenheit): 98.7 Pain Score (1-10): 0 Nausea: No Vomiting: No Complications none Patient Status: awake, reacts, patent Hydration Status: adequate Drug: Love Manning MD Sep 06, 2018 09:56
--- NOTE | 2018-09-06 09:58 | 48 Hour Post Anesthesia Eval ---
Post Anesthesia Evaluation Procedure: colonoscopy w/bx Date of Evaluation: Sep 06, 2018 Time of Evaluation: 09:01 Blood Pressure Systolic: 135 0: 81 Pulse Rate: 76 Respiratory Rate: 18 Temperature (Fahrenheit): 98.7 O2 Sat by Pulse Oximetry: 98 Airway: patent Nausea: No Vomiting: No Pain Intensity: 0 Hydration Status: adequate Cardiopulmonary Status: stable Mental Status/LOC: patient returned to baseline Post-Anesthesia Complications: none Follow-up care needed: N/A Love Hernandez MD Sep 06, 2018 09:58
--- NOTE | 2018-09-06 10:53 | Pulmonology Progress Note ---
Assessment/Plan Problems: (1) Sepsis (2) HIV (human immunodeficiency virus infection) (3) ATN (acute tubular necrosis) (4) UTI (urinary tract infection) (5) Degenerative disc disease (6) Severe protein-calorie malnutrition Assessment/Plan had colonoscopy todya VS better, renal function better stool pending hold BP meds renal electrolytes pt/ot improving check electrolytes check cultures pyruvate for dysuria GI evaluation stool for c-diff Subjective ROS Limited/Unobtainable: No Interval Events: still has diarrhea Constitutional: Reports: fatigue, anorexia Gastrointestinal/Abdominal: Reports: diarrhea Allergies: Coded Allergies: CODEINE (Unverified Allergy, Unknown, 11/28/17) EMTRICITABINE (Verified Allergy, Unknown, anxiousness, 08/31/18) SULFAMETHOXAZOLE (Unverified Allergy, Unknown, 10/27/17) TENOFOVIR (Verified Allergy, Unknown, anxiousness, 08/31/18) TRIMETHOPRIM (Unverified Allergy, Unknown, 10/27/17) Objective Last 24 Hour Vital Signs Date Time Temp Pulse Resp B/P (MAP) Pulse Ox O2 Delivery O2 Flow Rate FiO2 09/06/18 09:58 76 18 98 09/06/18 09:56 79 18 98 09/06/18 09:21 98.8 78 21 138/78 100 Nasal Cannula 3 09/06/18 09:11 78 21 132/77 100 Nasal Cannula 3 09/06/18 08:57 76 24 135/81 98 Simple Mask 6 09/06/18 08:52 78 23 133/80 98 Simple Mask 6 09/06/18 08:47 98.7 79 18 119/78 98 Simple Mask 6 09/06/18 08:00 Nasal Cannula 2.0 09/06/18 08:00 101 09/06/18 05:23 98.9 09/06/18 04:00 105 09/06/18 04:00 Nasal Cannula 2.0 09/06/18 04:00 99.9 102 23 140/88 (105) 98 09/06/18 00:00 99.7 96 24 162/95 (117) 95 09/06/18 00:00 Nasal Cannula 2.0 09/06/18 00:00 106 09/05/18 20:00 98.8 96 24 157/98 (117) 93 09/05/18 20:00 Nasal Cannula 2.0 09/05/18 19:55 97 09/05/18 17:01 79 09/05/18 16:00 98.2 105 18 130/80 (97) 94 09/05/18 16:00 Nasal Cannula 2.0 09/05/18 12:00 Nasal Cannula 2.0 09/05/18 12:00 97.2 71 22 148/92 (110) 94 09/05/18 11:33 70 Intake and Output 09/05/18 09/06/18 19:00 07:00 Intake Total 600 ml 240 ml Output Total 600 ml Balance 600 ml -360 ml Intake Oral 600 ml 240 ml Output Urine Total 600 ml # Bowel Movements 9 General Appearance: cachetic HEENT: normocephalic, atraumatic Respiratory/Chest: chest wall non-tender, lungs clear Cardiovascular: normal peripheral pulses, normal rate Abdomen: normal bowel sounds, soft, non tender Extremities: no cyanosis Skin: no rash 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: 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 Lymphatic: no neck adenopathy, no groin adenopathy Laboratory Tests 09/05/18 18:11: Urine Color Brown, Urine Appearance Clear, Urine pH 5, Urine Specific [place] 1.015, Urine Protein 2+H, Urine Glucose (UA) Negative, Urine Ketones Negative, Urine Blood Negative, Urine Nitrite PositiveH, Urine Bilirubin 2+H, Urine Ictotest Negative, Urine Urobilinogen 8H, Urine Leukocyte Esterase 1+H, Urine RBC 0-2H, Urine WBC 2-4, Urine Squamous Epithelial Cells None, Urine Bacteria Few, Urine Eosinophils None seen, Urine Random Sodium 56, Urine Potassium Timed 31 09/06/18 03:45: White Blood Count 16.1H, Red Blood Count 4.13L, Hemoglobin 13.9L, Hematocrit 40.4L, Mean Corpuscular Volume 98, Mean Corpuscular Hemoglobin 33.6H, Mean Corpuscular Hemoglobin Concent 34.4, Red Cell Distribution Width 12.6, Platelet Count 152, Mean Platelet Volume 8.0, Neutrophils (%) (Auto) 83.7H, Lymphocytes ( %) (Auto) 9.6L, Monocytes (%) (Auto) 6.3, Eosinophils (%) (Auto) 0.0, Basophils (%) (Auto) 0.4, Prothrombin Time 10.7, Prothromb Time International Ratio 1.0, Activated Partial Thromboplast Time 27, Sodium Level 146H, Potassium Level 3.8, Chloride Level 111H, Carbon Dioxide Level 23, Anion Gap 13, Blood Urea Nitrogen 25H, Creatinine 1.2, Estimat Glomerular Filtration Rate 59.9, Glucose Level 98, Calcium Level 8.5 09/06/18 04:00: Stool Cyclospora Smear [Pending], Cryptosporidium Exam (LAB) [Pending], Giardia Antigen [Pending], Isospora Exam [Pending], Microsporidia Identification [ Pending] Current Medications Medications (Trade) Dose Ordered Sig/Roman Route PRN Reason Start Time Stop Time Status Last Admin Dose Admin Acetaminophen (Tylenol) 650 mg Q4H PRN ORAL fever 09/05/18 07:40 09/30/18 07:39 09/06/18 04:53 Al Hydroxide/Mg Hydroxide (Mylanta II) 30 ml Q6H PRN ORAL dyspepsia 09/05/18 07:40 10/05/18 07:39 Al Hydroxide/Mg Hydroxide (Mylanta) 15 ml Q1H PRN ORAL gi upset 09/06/18 07:15 09/06/18 15:00 Atovaquone (Mepron Susp) 1,500 mg Q24H ORAL 09/05/18 13:00 10/05/18 12:59 09/05/18 13:44 Atropine Sulfate (Atropine 0.4mg/ ml) 0.5 mg Q5M PRN IVP bpm less than 45 09/06/18 07:15 09/06/18 15:00 Baclofen (Lioresal) 10 mg THREE TIMES A DAY ORAL 09/05/18 09:00 09/30/18 17:59 09/06/18 09:00 Ceftriaxone Sodium 1 gm/ Dextrose 55 ml @ 110 mls/hr Q24H IVPB 09/05/18 18:00 09/08/18 17:59 09/05/18 17:35 Dextrose (Dextrose 50%) 25 ml Q30M PRN IV Hypoglycemia 09/05/18 07:45 10/05/18 07:35 Dextrose (Dextrose 50%) 50 ml Q30M PRN IV hypoglycemia 09/05/18 07:45 10/05/18 07:44 Diphenhydramine HCl (Benadryl) 25 mg Q15M PRN IVP Itching 09/06/18 07:15 09/06/18 15:00 Fentanyl Citrate (Sublimaze 100 mcg/2 mL) 25 mcg Q10M PRN IV Moderate Pain (Pain Scale 4-6) 09/06/18 07:15 09/06/18 15:00 Gabapentin (Neurontin) 600 mg BID ORAL 09/05/18 09:00 10/01/18 08:59 09/06/18 09:00 Hydralazine HCl (Apresoline) 5 mg Q30M PRN IV SBP>160 /DBP>90 09/06/18 07:15 09/06/18 15:00 Loperamide HCl (Imodium) 2 mg QIDPRN PRN ORAL Diarrhea 09/05/18 07:41 10/03/18 07:40 Lorazepam (Ativan 2mg/ml 1ml) 0.5 mg Q4H PRN IV For Anxiety 09/05/18 07:41 09/07/18 07:40 Midazolam HCl (Versed 2mg/2ml vial) 1 mg Q15M PRN IVP For Anxiety 09/06/18 07:15 09/06/18 15:00 Mirtazapine (Remeron) 15 mg BEDTIME ORAL 09/05/18 21:00 09/30/18 20:59 09/05/18 20:18 Morphine Sulfate (Morphine Sulfate) 1 mg Q4H PRN IVP Moderate Pain (Pain Scale 4-6) 09/05/18 07:41 09/07/18 07:40 Ondansetron HCl (Zofran) 4 mg Q1H PRN IVP Nausea & Vomiting 09/06/18 07:15 09/06/18 15:00 Ondansetron HCl (Zofran) 4 mg Q6H PRN IVP Nausea & Vomiting 09/05/18 07:42 09/30/18 07:41 09/05/18 22:11 Patient Own Medication (Patient's Own Med) 1 ea BID@08 ORAL 09/05/18 08:00 10/01/18 19:59 09/06/18 08:00 Patient Own Medication (Patient's Own Med) 1 ea BID@08 ORAL 09/05/18 08:00 10/01/18 19:59 Patient Own Medication (Patient's Own Med) 1 ea DAILY@0800 ORAL 09/05/18 08:00 10/02/18 07:59 09/06/18 08:00 Phenazopyridine HCl (Pyridium) 100 mg THREE TIMES A DAY ORAL 09/05/18 09:00 10/01/18 17:59 09/06/18 09:00 Tamsulosin HCl (Flomax) 0.4 mg BEDTIME ORAL 09/05/18 21:00 09/30/18 20:59 09/05/18 20:18 Valacyclovir HCl (Valtrex) 1,000 mg QHS ORAL 09/05/18 21:00 10/01/18 20:59 09/05/18 20:17 Vancomycin HCl (Firvanq) 125 mg FOUR TIMES A DAY ORAL 09/05/18 15:00 09/12/18 14:59 09/06/18 09:00 Zolpidem Tartrate (Ambien) 5 mg HSPRN PRN ORAL Insomnia 09/05/18 07:44 09/07/18 07:43 Oliverio Rm MD Sep 06, 2018 10:53
[2018-09-06] MEDS ORDERED: Morphine Sulfate 2mg/ml Inj(IV/IM USE ONLY) IVP PRN (11:00)
[2018-09-06] MEDS ORDERED: HYDROcodone/Acetamin 10/325 tab ORAL PRN (11:00)
[2018-09-06] MEDS ORDERED: Hydrocortisone 2.5% Oint 30gm TOPIC PRN (12:30)
--- NOTE | 2018-09-06 13:59 | Infectious Diseases Prog Note ---
Assessment/Plan Assessment/Plan Assessment: Hypotension (improved w IVFs)- in the setting of diarrhea UTI (frequency, dysuria) -u/a wbc 10-15, shirley neg, leuk +3; ucx >100K PROTEUS MIRABILIS ( I Levo; R Amp, bactrim, Cipro, Nitro; S Ceftriaxone) Afebrile Leukocytosis; increased Diarrhea- r/o cdiff, parasitic -09/06 SP Colonoscopy: proctitis HIV- on ARV (per pt VL UD) -09/2018 182 (10.1%) -11/2017 CD4 323 hx of rectal CA CVA 2004 HTN Plan: -Continue Ceftriaxone # 01/07 for UTI -Add Flagyl and PO Vancomycin empiric for anaerobic and Cdiff coverage -Conitnue Atovaquone for PCP ppx as CD4 <200 on valtrex -Contiue ARV (Genvoya, prezista, intelence) -f/u cx -Monitor CBC/CMP, temperatures -fu Cdiff, stool cx, O+p Subjective Allergies: Coded Allergies: CODEINE (Unverified Allergy, Unknown, 11/28/17) EMTRICITABINE (Verified Allergy, Unknown, anxiousness, 08/31/18) SULFAMETHOXAZOLE (Unverified Allergy, Unknown, 10/27/17) TENOFOVIR (Verified Allergy, Unknown, anxiousness, 08/31/18) TRIMETHOPRIM (Unverified Allergy, Unknown, 10/27/17) Subjective afebrile leukocytosis increased s/p colonoscopy showed proctitis BP stable Objective Vital Signs Last 24 Hour Vital Signs Date Time Temp Pulse Resp B/P (MAP) Pulse Ox O2 Delivery O2 Flow Rate FiO2 09/06/18 09:58 76 18 98 09/06/18 09:56 79 18 98 09/06/18 09:21 98.8 78 21 138/78 100 Nasal Cannula 3 09/06/18 09:11 78 21 132/77 100 Nasal Cannula 3 09/06/18 08:57 76 24 135/81 98 Simple Mask 6 09/06/18 08:52 78 23 133/80 98 Simple Mask 6 09/06/18 08:47 98.7 79 18 119/78 98 Simple Mask 6 09/06/18 08:00 Nasal Cannula 2.0 09/06/18 08:00 101 09/06/18 05:23 98.9 09/06/18 04:00 105 09/06/18 04:00 Nasal Cannula 2.0 09/06/18 04:00 99.9 102 23 140/88 (105) 98 09/06/18 00:00 99.7 96 24 162/95 (117) 95 09/06/18 00:00 Nasal Cannula 2.0 09/06/18 00:00 106 09/05/18 20:00 98.8 96 24 157/98 (117) 93 09/05/18 20:00 Nasal Cannula 2.0 09/05/18 19:55 97 09/05/18 17:01 79 09/05/18 16:00 98.2 105 18 130/80 (97) 94 09/05/18 16:00 Nasal Cannula 2.0 Height (Feet): 5 Height (Inches): 5.00 Weight (Pounds): 0 Objective GENERAL: The patient awake, responsive, in no acute distress. HEAD AND NECK: Pupils equal and reactive to light. Extraocular movements intact. Right eye has ptosis. Neck was supple. No JVD. LUNGS: Good air entry. No wheezing or rales. HEART: S1, S2. Regular rate and rhythm. No murmur or gallops. ABDOMEN: Soft, nondistended, nontender. Positive bowel sounds. Left flank tenderness on deep palpation. No rebound tenderness. No fluid shift. EXTREMITIES: No cyanosis, clubbing, or edema. NEUROLOGIC: Cranial nerves II to XII grossly intact. Motor is 5/5 in all extremities. PSYCHIATRIC: Mood and affect is intact. Laboratory Tests Test 09/05/18 18:11 09/06/18 03:45 09/06/18 04:00 Urine Color Brown Urine Appearance Clear Urine pH 5 (4.5-8.0) Urine Specific Reform 1.015 (1.005-1.035) Urine Protein 2+ (NEGATIVE) H Urine Glucose (UA) Negative (NEGATIVE) Urine Ketones Negative (NEGATIVE) Urine Blood Negative (NEGATIVE) Urine Nitrite Positive (NEGATIVE) H Urine Bilirubin 2+ (NEGATIVE) H Urine Ictotest Negative (NEGATIVE) Urine Urobilinogen 8 MG/DL (0.0-1.0) H Urine Leukocyte Esterase 1+ (NEGATIVE) H Urine RBC 0-2 /HPF (0 - 0) H Urine WBC 2-4 /HPF (0 - 0) Urine Squamous Epithelial Cells None /LPF (NONE/OCC) Urine Bacteria Few /HPF (NONE) Urine Eosinophils None seen (NONE SEEN) Urine Random Sodium 56 mmol/L (20-110) Urine Potassium Timed 31 mmol/L (12-62) White Blood Count 16.1 K/UL (4.8-10.8) H Red Blood Count 4.13 M/UL (4.70-6.10) L Hemoglobin 13.9 G/DL (14.2-18.0) L Hematocrit 40.4 % (42.0-52.0) L Mean Corpuscular Volume 98 FL (80-99) Mean Corpuscular Hemoglobin 33.6 PG (27.0-31.0) H Mean Corpuscular Hemoglobin Concent 34.4 G/DL (32.0-36.0) Red Cell Distribution Width 12.6 % (11.6-14.8) Platelet Count 152 K/UL (150-450) Mean Platelet Volume 8.0 FL (6.5-10.1) Neutrophils (%) (Auto) 83.7 % (45.0-75.0) H Lymphocytes (%) (Auto) 9.6 % (20.0-45.0) L Monocytes (%) (Auto) 6.3 % (1.0-10.0) Eosinophils (%) (Auto) 0.0 % (0.0-3.0) Basophils (%) (Auto) 0.4 % (0.0-2.0) Prothrombin Time 10.7 SEC (9.30-11.50) Prothromb Time International Ratio 1.0 (0.9-1.1) Activated Partial Thromboplast Time 27 SEC (23-33) Sodium Level 146 MMOL/L (136-145) H Potassium Level 3.8 MMOL/L (3.5-5.1) Chloride Level 111 MMOL/L (98-107) H Carbon Dioxide Level 23 MMOL/L (21-32) Anion Gap 13 mmol/L (5-15) Blood Urea Nitrogen 25 mg/dL (7-18) H Creatinine 1.2 MG/DL (0.55-1.30) Estimat Glomerular Filtration Rate 59.9 mL/min (>60) Glucose Level 98 MG/DL (74-106) Calcium Level 8.5 MG/DL (8.5-10.1) Stool Cyclospora Smear Pending Cryptosporidium Exam (LAB) Pending Giardia Antigen Pending Isospora Exam Pending Microsporidia Identification Pending Current Medications Medications (Trade) Dose Ordered Sig/Roman Route PRN Reason Start Time Stop Time Status Last Admin Dose Admin Acetaminophen (Tylenol) 650 mg Q4H PRN ORAL fever 09/05/18 07:40 09/30/18 07:39 09/06/18 04:53 Acetaminophen/ Hydrocodone Bitart (Alto 10/325) 1 tab Q4H PRN ORAL Moderate Pain (Pain Scale 4-6) 09/06/18 11:00 09/13/18 10:59 Al Hydroxide/Mg Hydroxide (Mylanta II) 30 ml Q6H PRN ORAL dyspepsia 09/05/18 07:40 10/05/18 07:39 Baclofen (Lioresal) 10 mg THREE TIMES A DAY ORAL 09/05/18 09:00 09/30/18 17:59 09/06/18 09:00 Ceftriaxone Sodium 1 gm/ Dextrose 55 ml @ 110 mls/hr Q24H IVPB 09/05/18 18:00 09/08/18 17:59 09/05/18 17:35 Dextrose (Dextrose 50%) 25 ml Q30M PRN IV Hypoglycemia 09/05/18 07:45 10/05/18 07:35 Dextrose (Dextrose 50%) 50 ml Q30M PRN IV hypoglycemia 09/05/18 07:45 10/05/18 07:44 Hydrocortisone (Hydrocortisone) 1 applic Q6H PRN TOPIC Itching 09/06/18 12:30 10/06/18 12:29 Loperamide HCl (Imodium) 2 mg QIDPRN PRN ORAL Diarrhea 09/05/18 07:41 10/03/18 07:40 Lorazepam (Ativan 2mg/ml 1ml) 0.5 mg Q4H PRN IV For Anxiety 09/05/18 07:41 09/07/18 07:40 Mirtazapine (Remeron) 15 mg BEDTIME ORAL 09/05/18 21:00 09/30/18 20:59 09/05/18 20:18 Morphine Sulfate (Morphine Sulfate) 2 mg Q4H PRN IVP Severe Pain (Pain Scale 7-10) 09/06/18 11:00 09/13/18 10:59 Ondansetron HCl (Zofran) 4 mg Q6H PRN IVP Nausea & Vomiting 09/05/18 07:42 09/30/18 07:41 09/05/18 22:11 Patient Own Medication (Patient's Own Med) 1 ea BID@08 ORAL 09/05/18 08:00 10/01/18 19:59 09/06/18 08:00 Patient Own Medication (Patient's Own Med) 1 ea BID@08 ORAL 09/05/18 08:00 10/01/18 19:59 Patient Own Medication (Patient's Own Med) 1 ea DAILY@0800 ORAL 09/05/18 08:00 10/02/18 07:59 09/06/18 08:00 Phenazopyridine HCl (Pyridium) 100 mg THREE TIMES A DAY ORAL 09/05/18 09:00 10/01/18 17:59 09/06/18 09:00 Tamsulosin HCl (Flomax) 0.4 mg BEDTIME ORAL 09/05/18 21:00 09/30/18 20:59 09/05/18 20:18 Valacyclovir HCl (Valtrex) 1,000 mg QHS ORAL 09/05/18 21:00 10/01/18 20:59 09/05/18 20:17 Vancomycin HCl (Firvanq) 125 mg FOUR TIMES A DAY ORAL 09/05/18 15:00 09/12/18 14:59 09/06/18 09:00 Zolpidem Tartrate (Ambien) 5 mg HSPRN PRN ORAL Insomnia 09/05/18 07:44 09/07/18 07:43 Miranda Cordero M.D. Sep 06, 2018 13:59
[2018-09-06] MEDS ORDERED: Vancomycin oral 125mg/2.5ml ORAL SCH (14:00)
[2018-09-06] MEDS: metroNIDAZOLE 500mg tab ORAL SCH ×2 (14:55→22:00)
--- NOTE | 2018-09-06 15:16 | Procedure Note ---
DATE OF PROCEDURE: 09/06/2018 SURGEON: Dejan Germain M.D. REFERRING PHYSICIAN: Carlos Barragan M.D. PROCEDURE: Colonoscopy with biopsy. ANESTHESIA: Per Dr. Mancuso. INSTRUMENT: Olympus adult flexible colonoscope. INDICATION: 1. Diarrhea. 2. History of rectal cancer. REASON FOR PROCEDURE: The procedure, risks, benefits, and possible consequences, including hemorrhage, aspiration, perforation and infection, and alternative treatments, were explained to the patient/legal guardian by Dr. Dejan Germain and the patient/legal guardian understood and accepted these risks. PROCEDURE IN DETAIL: After informed consent was obtained and the patient was adequately sedated, first rectal exam was performed, which was normal. Then, the scope was advanced from the rectum into cecum documented by appendiceal orifice. Quality of prep was fair. We could not evaluate the cecum properly given it was full of stool. The rest of the exam and prep was mediocre. There was no obvious polyp, mass, or bleeding was seen. Biopsy from the right and left colon was obtained to evaluate for microscopic colitis given chronic diarrhea. The patient had evidence of focal proctitis with some yellowish-greenish discharge on it suspicious for C. diff versus focal ulcerative colitis. Biopsy from this area was obtained. The patient tolerated the procedure very well without any complication. SUMMARY OF FINDINGS: 1. Focal proctitis suspicious for C. diff versus ulcerative colitis, status post biopsy. 2. Status post biopsy of the right and left colon to evaluate microscopic colitis. RECOMMENDATIONS: Follow up biopsy results and treat accordingly. I want to thank Dr. Carlos Barragan for this kind referral. Dejan Germain M.D. DR: SLIM JOB#: [id number] CC:
--- NOTE | 2018-09-06 15:47 | Diagnostic Imaging Report ---
Indication: Dyspnea Technique: One view of the chest Comparison: 11/29/2017 Findings: Suboptimal inspiration. Atelectatic changes are seen at both lung bases. The heart is borderline enlarged. The lungs and pleural spaces are otherwise clear. Impression: Hypoventilatory exam with bilateral basilar atelectatic changes. No acute process otherwise
[2018-09-06] MEDS: cefTRIAXone 1 GM in D5W 55 ML IVPB SCH (18:00)
--- NOTE | 2018-09-06 19:10 | Internal Med Progress Note ---
Subjective Date of Service: Sep 06, 2018 Physician Name Trey Whitaker Attending Physician Carlos Barragan MD Current Medications Medications (Trade) Dose Ordered Sig/Roman Route PRN Reason Start Time Stop Time Status Last Admin Dose Admin Acetaminophen (Tylenol) 650 mg Q4H PRN ORAL fever 09/05/18 07:40 09/30/18 07:39 09/06/18 04:53 Acetaminophen/ Hydrocodone Bitart ([place]ont 10/325) 1 tab Q4H PRN ORAL Moderate Pain (Pain Scale 4-6) 09/06/18 11:00 09/13/18 10:59 Al Hydroxide/Mg Hydroxide (Mylanta II) 30 ml Q6H PRN ORAL dyspepsia 09/05/18 07:40 10/05/18 07:39 Baclofen (Lioresal) 10 mg THREE TIMES A DAY ORAL 09/05/18 09:00 09/30/18 17:59 09/06/18 18:00 Ceftriaxone Sodium 1 gm/ Dextrose 55 ml @ 110 mls/hr Q24H IVPB 09/05/18 18:00 09/08/18 17:59 09/06/18 18:00 Dextrose (Dextrose 50%) 25 ml Q30M PRN IV Hypoglycemia 09/05/18 07:45 10/05/18 07:35 Dextrose (Dextrose 50%) 50 ml Q30M PRN IV hypoglycemia 09/05/18 07:45 10/05/18 07:44 Hydrocortisone (Hydrocortisone) 1 applic Q6H PRN TOPIC Itching 09/06/18 12:30 10/06/18 12:29 Loperamide HCl (Imodium) 2 mg QIDPRN PRN ORAL Diarrhea 09/05/18 07:41 10/03/18 07:40 Lorazepam (Ativan 2mg/ml 1ml) 0.5 mg Q4H PRN IV For Anxiety 09/05/18 07:41 09/07/18 07:40 Metronidazole (Flagyl) 500 mg Q8HR ORAL 09/06/18 14:30 09/13/18 14:29 09/06/18 14:55 Mirtazapine (Remeron) 15 mg BEDTIME ORAL 09/05/18 21:00 09/30/18 20:59 09/05/18 20:18 Morphine Sulfate (Morphine Sulfate) 2 mg Q4H PRN IVP Severe Pain (Pain Scale 7-10) 09/06/18 11:00 09/13/18 10:59 Ondansetron HCl (Zofran) 4 mg Q6H PRN IVP Nausea & Vomiting 09/05/18 07:42 09/30/18 07:41 09/05/18 22:11 Patient Own Medication (Patient's Own Med) 1 ea BID@08 ORAL 09/05/18 08:00 10/01/18 19:59 09/06/18 08:00 Patient Own Medication (Patient's Own Med) 1 ea BID@08 ORAL 09/05/18 08:00 10/01/18 19:59 Patient Own Medication (Patient's Own Med) 1 ea DAILY@08 ORAL 09/05/18 08:00 10/02/18 07:59 09/06/18 08:00 Phenazopyridine HCl (Pyridium) 100 mg THREE TIMES A DAY ORAL 09/05/18 09:00 10/01/18 17:59 09/06/18 18:00 Tamsulosin HCl (Flomax) 0.4 mg BEDTIME ORAL 09/05/18 21:00 09/30/18 20:59 09/05/18 20:18 Valacyclovir HCl (Valtrex) 1,000 mg QHS ORAL 09/05/18 21:00 10/01/18 20:59 09/05/18 20:17 Vancomycin HCl (Firvanq) 125 mg FOUR TIMES A DAY ORAL 09/05/18 15:00 09/12/18 14:59 09/06/18 18:00 Zolpidem Tartrate (Ambien) 5 mg HSPRN PRN ORAL Insomnia 09/05/18 07:44 09/07/18 07:43 Allergies: Coded Allergies: CODEINE (Unverified Allergy, Unknown, 11/28/17) EMTRICITABINE (Verified Allergy, Unknown, anxiousness, 08/31/18) SULFAMETHOXAZOLE (Unverified Allergy, Unknown, 10/27/17) TENOFOVIR (Verified Allergy, Unknown, anxiousness, 08/31/18) TRIMETHOPRIM (Unverified Allergy, Unknown, 10/27/17) ROS Limited/Unobtainable: Yes Subjective 68 YO M admitted with flank pain. Cover for Int med-DR Barragan. CRISTIANO Objective Last Vital Signs Date Time Temp Pulse Resp B/P (MAP) Pulse Ox O2 Delivery O2 Flow Rate FiO2 09/06/18 16:00 Nasal Cannula 2.0 09/06/18 16:00 99.0 99 23 139/56 (83) 98 09/05/18 06:42 28 Laboratory Tests Test 09/06/18 03:45 09/06/18 04:00 White Blood Count 16.1 K/UL (4.8-10.8) H Red Blood Count 4.13 M/UL (4.70-6.10) L Hemoglobin 13.9 G/DL (14.2-18.0) L Hematocrit 40.4 % (42.0-52.0) L Mean Corpuscular Volume 98 FL (80-99) Mean Corpuscular Hemoglobin 33.6 PG (27.0-31.0) H Mean Corpuscular Hemoglobin Concent 34.4 G/DL (32.0-36.0) Red Cell Distribution Width 12.6 % (11.6-14.8) Platelet Count 152 K/UL (150-450) Mean Platelet Volume 8.0 FL (6.5-10.1) Neutrophils (%) (Auto) 83.7 % (45.0-75.0) H Lymphocytes (%) (Auto) 9.6 % (20.0-45.0) L Monocytes (%) (Auto) 6.3 % (1.0-10.0) Eosinophils (%) (Auto) 0.0 % (0.0-3.0) Basophils (%) (Auto) 0.4 % (0.0-2.0) Prothrombin Time 10.7 SEC (9.30-11.50) Prothromb Time International Ratio 1.0 (0.9-1.1) Activated Partial Thromboplast Time 27 SEC (23-33) Sodium Level 146 MMOL/L (136-145) H Potassium Level 3.8 MMOL/L (3.5-5.1) Chloride Level 111 MMOL/L (98-107) H Carbon Dioxide Level 23 MMOL/L (21-32) Anion Gap 13 mmol/L (5-15) Blood Urea Nitrogen 25 mg/dL (7-18) H Creatinine 1.2 MG/DL (0.55-1.30) Estimat Glomerular Filtration Rate 59.9 mL/min (>60) Glucose Level 98 MG/DL (74-106) Calcium Level 8.5 MG/DL (8.5-10.1) Stool Cyclospora Smear Pending Cryptosporidium Exam (LAB) Pending Giardia Antigen Pending Isospora Exam Pending Microsporidia Identification Pending Intake and Output 09/05/18 09/06/18 18:59 06:59 Intake Total 600 ml 240 ml Output Total 600 ml Balance 600 ml -360 ml Intake Oral 600 ml 240 ml Output Urine Total 600 ml # Bowel Movements 9 Objective PHYSICAL EXAMINATION: GENERAL: The patient awake, responsive, in no acute distress. HEAD AND NECK: Pupils equal and reactive to light. Extraocular movements intact. Right eye has ptosis. Neck was supple. No JVD. LUNGS: Good air entry. No wheezing or rales. HEART: S1, S2. Regular rate and rhythm. No murmur or gallops. ABDOMEN: Soft, nondistended, nontender. Positive bowel sounds. Left flank tenderness on deep palpation. No rebound tenderness. No fluid shift. EXTREMITIES: No cyanosis, clubbing, or edema. NEUROLOGIC: Cranial nerves II to XII grossly intact. Motor is 5/5 in all extremities. RECTAL: Refused and deferred. GENITOURINARY: Refused and deferred. PSYCHIATRIC: Mood and affect is intact. Assessment/Plan Assessment/Plan ASSESSMENT: 1. Left flank pain-pyelonephritis acute UTI-proteus mirabilis 2. Acute kidney injury with ATN, most likely secondary to the prerenal azotemia with dehydration. 3. HIV. 4. Rectal CA. 5. Hypertension. 6. Major depression. 7. Anxiety. 8. History of CVA in in 2004. 9. Hypotension-resolved with fluid bolus PLAN: 1. Admit the patient to medical floor. 2. We will follow up with the ID consultation, Dr. Cordero. 3. Continue Rocephin per ID 4. Follow up with cultures. 5. Continue home medication. 6. Discussed with the patient with regard to plan of care. 7. Code status is Full Code. 8. DVT prophylaxis. Heparin subcutaneous. 9. I advised the patient to become more mobilized and ambulatory with the nurse mostly and we will monitor laboratory as well as culture. Trey Whitaker MD Sep 06, 2018 19:10
[2018-09-06] MEDS: Tamsulosin 0.4mg cap ORAL SCH (21:29)
[2018-09-06] MEDS: valACYclovir HCL 500mg tab ORAL SCH (21:30)
[2018-09-07] VITALS: BP 126/71
[2018-09-07 04:00] VITALS: BP 150/84
[2018-09-07 05:48] LABS: BASOPHILS % (AUTO) 0.5 % (0.0-2.0); EOSINOPHILS % (AUTO) 0.3 % (0.0-3.0); HEMATOCRIT 43.1 % (42.0-52.0); HEMOGLOBIN 14.8 G/DL (14.2-18.0); LYMPHOCYTES % (AUTO) 21.2 % (20.0-45.0); MEAN CORPUSCULAR VOLUME 100 FL (80-99); MONOCYTES % (AUTO) 5.9 % (1.0-10.0); PLATELET COUNT 172 K/UL (150-450); RED BLOOD COUNT 4.33 M/UL (4.70-6.10); RED CELL DISTRIBUTION WIDTH 12.6 % (11.6-14.8); WHITE BLOOD COUNT 14.2 K/UL (4.8-10.8)
[2018-09-07] MEDS: metroNIDAZOLE 500mg tab ORAL SCH (06:00)
[2018-09-07 06:07] LABS: ANION GAP 14 mmol/L (5-15); BLOOD UREA NITROGEN 19 mg/dL (7-18); CARBON DIOXIDE 22 MMOL/L (21-32); CHLORIDE 108 MMOL/L (98-107); CREATININE 1.1 MG/DL (0.55-1.30); POTASSIUM 3.4 MMOL/L (3.5-5.1); SODIUM 144 MMOL/L (136-145)
[2018-09-07 07:50] VITALS: BP 117/92
--- NOTE | 2018-09-07 11:00 | GI Progress Note ---
Assessment/Plan Problems: (1) History of rectal cancer ICD Codes: Z85.048 - Personal history of other malignant neoplasm of rectum, rectosigmoid junction, and anus SNOMED: 648035899 (2) Severe protein-calorie malnutrition ICD Codes: E43 - Unspecified severe protein-calorie malnutrition SNOMED: 085873148 (3) Electrolyte imbalance ICD Codes: E87.8 - Other disorders of electrolyte and fluid balance, not elsewhere classified SNOMED: 045904863 (4) Diarrhea ICD Codes: R19.7 - Diarrhea, unspecified SNOMED: 64661952 (5) Dehydration ICD Codes: E86.0 - Dehydration SNOMED: 12260486 (6) Gastroenteritis ICD Codes: K52.9 - Noninfective gastroenteritis and colitis, unspecified SNOMED: 81276613 Status: progressing Status Narrative Discussed with Dr. Germain Assessment/Plan Status post colonoscopy SUMMARY OF FINDINGS: 1. Focal proctitis suspicious for C. diff versus ulcerative colitis, status post biopsy. 2. Status post biopsy of the right and left colon to evaluate microscopic colitis. C. difficile positive RECOMMENDATIONS: Follow up biopsy results and treat accordingly. Antibiotics per infectious disease DC PPI PRN transfusions Advance diet PT evaluation Follow labs The patient was seen and examined at bedside and all new and available data was reviewed in the patients chart. I agree with the above findings, impression and plan. (Patient seen earlier today. Signature stamp does not reflect patient encounter time.). - Dejan Germain MD Subjective Subjective Diarrhea Objective Last 24 Hour Vital Signs Date Time Temp Pulse Resp B/P (MAP) Pulse Ox O2 Delivery O2 Flow Rate FiO2 09/07/18 08:00 Nasal Cannula 2.0 09/07/18 08:00 112 09/07/18 07:50 98.0 110 22 117/92 (100) 96 09/07/18 04:00 Nasal Cannula 2.0 09/07/18 04:00 98.0 113 20 150/84 (106) 94 09/07/18 04:00 120 09/07/18 00:00 Nasal Cannula 2.0 09/07/18 00:00 121 09/07/18 00:00 98.6 121 24 126/71 (89) 94 09/06/18 20:00 Nasal Cannula 2.0 09/06/18 20:00 121 09/06/18 20:00 98.6 121 24 126/71 (89) 94 09/06/18 16:00 Nasal Cannula 2.0 09/06/18 16:00 99.0 99 23 139/56 (83) 98 09/06/18 16:00 92 09/06/18 12:00 98.6 102 23 126/88 (101) 98 09/06/18 12:00 Nasal Cannula 2.0 09/06/18 12:00 89 Intake and Output 09/06/18 09/07/18 19:00 07:00 Intake Total 1050 ml 200 ml Output Total 2000 ml 3000 ml Balance -950 ml -2800 ml Intake Oral 800 ml 200 ml IV Total 250 ml Output Urine Total 800 ml 2000 ml Stool Total 1200 ml 800 ml Emesis 200 ml # Bowel Movements 2 Laboratory Tests Test 09/07/18 04:20 White Blood Count 14.2 K/UL (4.8-10.8) H Red Blood Count 4.33 M/UL (4.70-6.10) L Hemoglobin 14.8 G/DL (14.2-18.0) Hematocrit 43.1 % (42.0-52.0) Mean Corpuscular Volume 100 FL (80-99) H Mean Corpuscular Hemoglobin 34.3 PG (27.0-31.0) H Mean Corpuscular Hemoglobin Concent 34.4 G/DL (32.0-36.0) Red Cell Distribution Width 12.6 % (11.6-14.8) Platelet Count 172 K/UL (150-450) Mean Platelet Volume 9.1 FL (6.5-10.1) Neutrophils (%) (Auto) 72.0 % (45.0-75.0) Lymphocytes (%) (Auto) 21.2 % (20.0-45.0) Monocytes (%) (Auto) 5.9 % (1.0-10.0) Eosinophils (%) (Auto) 0.3 % (0.0-3.0) Basophils (%) (Auto) 0.5 % (0.0-2.0) Sodium Level 144 MMOL/L (136-145) Potassium Level 3.4 MMOL/L (3.5-5.1) L Chloride Level 108 MMOL/L (98-107) H Carbon Dioxide Level 22 MMOL/L (21-32) Anion Gap 14 mmol/L (5-15) Blood Urea Nitrogen 19 mg/dL (7-18) H Creatinine 1.1 MG/DL (0.55-1.30) Estimat Glomerular Filtration Rate > 60 mL/min (>60) Glucose Level 119 MG/DL (74-106) H Calcium Level 9.0 MG/DL (8.5-10.1) Height (Feet): 5 Height (Inches): 5.00 Weight (Pounds): 0 General Appearance: WD/WN, no apparent distress, alert Cardiovascular: normal rate Respiratory/Chest: normal breath sounds, no respiratory distress Abdominal Exam: normal bowel sounds, non tender, soft Extremities: normal range of motion, non-tender Jasen Brink NP Sep 07, 2018 11:00
[2018-09-07] MEDS: Vancomycin oral 125mg/2.5ml ORAL SCH ×4 (11:10→22:00)
--- NOTE | 2018-09-07 11:51 | Pulmonology Progress Note ---
Assessment/Plan Problems: (1) Sepsis (2) HIV (human immunodeficiency virus infection) (3) ATN (acute tubular necrosis) (4) UTI (urinary tract infection) (5) Degenerative disc disease (6) Severe protein-calorie malnutrition Assessment/Plan change po flagyl to IV VS better, renal function better stool pending hold BP meds renal electrolytes pt/ot improving check electrolytes check cultures pyruvate for dysuria GI evaluation stool for c-diff Subjective ROS Limited/Unobtainable: No Constitutional: Reports: no symptoms HEENT: Repors: no symptoms Respiratory: Reports: no symptoms Allergies: Coded Allergies: CODEINE (Unverified Allergy, Unknown, 11/28/17) EMTRICITABINE (Verified Allergy, Unknown, anxiousness, 08/31/18) SULFAMETHOXAZOLE (Unverified Allergy, Unknown, 10/27/17) TENOFOVIR (Verified Allergy, Unknown, anxiousness, 08/31/18) TRIMETHOPRIM (Unverified Allergy, Unknown, 10/27/17) Objective Last 24 Hour Vital Signs Date Time Temp Pulse Resp B/P (MAP) Pulse Ox O2 Delivery O2 Flow Rate FiO2 09/07/18 08:00 Nasal Cannula 2.0 09/07/18 08:00 112 09/07/18 07:50 98.0 110 22 117/92 (100) 96 09/07/18 04:00 Nasal Cannula 2.0 09/07/18 04:00 98.0 113 20 150/84 (106) 94 09/07/18 04:00 120 09/07/18 00:00 Nasal Cannula 2.0 09/07/18 00:00 121 09/07/18 00:00 98.6 121 24 126/71 (89) 94 09/06/18 20:00 Nasal Cannula 2.0 09/06/18 20:00 121 09/06/18 20:00 98.6 121 24 126/71 (89) 94 09/06/18 16:00 Nasal Cannula 2.0 09/06/18 16:00 99.0 99 23 139/56 (83) 98 09/06/18 16:00 92 09/06/18 12:00 98.6 102 23 126/88 (101) 98 09/06/18 12:00 Nasal Cannula 2.0 09/06/18 12:00 89 Intake and Output 09/06/18 09/07/18 19:00 07:00 Intake Total 1050 ml 200 ml Output Total 2000 ml 3000 ml Balance -950 ml -2800 ml Intake Oral 800 ml 200 ml IV Total 250 ml Output Urine Total 800 ml 2000 ml Stool Total 1200 ml 800 ml Emesis 200 ml # Bowel Movements 2 General Appearance: WD/WN HEENT: normocephalic, atraumatic Respiratory/Chest: chest wall non-tender, lungs clear Cardiovascular: normal rate Abdomen: normal bowel sounds, soft, non tender Genitourinary: normal external genitalia Extremities: no clubbing 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: hand sewer II-XII grossly normal Lymphatic: no neck adenopathy Microbiology Date/Time Source Procedure Growth Status 09/06/18 04:00 Stool Clostridium difficile Toxin Assay - Final Complete Laboratory Tests 09/07/18 04:20: White Blood Count 14.2H, Red Blood Count 4.33L, Hemoglobin 14.8, Hematocrit 43.1 , Mean Corpuscular Volume 100H, Mean Corpuscular Hemoglobin 34.3H, Mean Corpuscular Hemoglobin Concent 34.4, Red Cell Distribution Width 12.6, Platelet Count 172, Mean Platelet Volume 9.1, Neutrophils (%) (Auto) 72.0, Lymphocytes (% ) (Auto) 21.2, Monocytes (%) (Auto) 5.9, Eosinophils (%) (Auto) 0.3, Basophils ( %) (Auto) 0.5, Sodium Level 144, Potassium Level 3.4L, Chloride Level 108H, Carbon Dioxide Level 22, Anion Gap 14, Blood Urea Nitrogen 19H, Creatinine 1.1, Estimat Glomerular Filtration Rate > 60, Glucose Level 119H, Calcium Level 9.0 Current Medications Medications (Trade) Dose Ordered Sig/Roman Route PRN Reason Start Time Stop Time Status Last Admin Dose Admin Acetaminophen (Tylenol) 650 mg Q4H PRN ORAL fever 09/05/18 07:40 09/30/18 07:39 09/06/18 04:53 Acetaminophen/ Hydrocodone Bitart ([place] 10/325) 1 tab Q4H PRN ORAL Moderate Pain (Pain Scale 4-6) 09/06/18 11:00 09/13/18 10:59 Al Hydroxide/Mg Hydroxide (Mylanta II) 30 ml Q6H PRN ORAL dyspepsia 09/05/18 07:40 10/05/18 07:39 Baclofen (Lioresal) 10 mg THREE TIMES A DAY ORAL 09/05/18 09:00 09/30/18 17:59 09/07/18 11:02 Ceftriaxone Sodium 1 gm/ Dextrose 55 ml @ 110 mls/hr Q24H IVPB 09/05/18 18:00 09/08/18 17:59 09/06/18 18:00 Dextrose (Dextrose 50%) 25 ml Q30M PRN IV Hypoglycemia 09/05/18 07:45 10/05/18 07:35 Dextrose (Dextrose 50%) 50 ml Q30M PRN IV hypoglycemia 09/05/18 07:45 10/05/18 07:44 Hydrocortisone (Hydrocortisone) 1 applic Q6H PRN TOPIC Itching 09/06/18 12:30 10/06/18 12:29 Loperamide HCl (Imodium) 2 mg QIDPRN PRN ORAL Diarrhea 09/05/18 07:41 10/03/18 07:40 Metronidazole (Flagyl) 500 mg Q8HR ORAL 09/06/18 14:30 09/13/18 14:29 09/06/18 22:00 Mirtazapine (Remeron) 15 mg BEDTIME ORAL 09/05/18 21:00 09/30/18 20:59 09/06/18 21:00 Morphine Sulfate (Morphine Sulfate) 2 mg Q4H PRN IVP Severe Pain (Pain Scale 7-10) 09/06/18 11:00 09/13/18 10:59 Ondansetron HCl (Zofran) 4 mg Q6H PRN IVP Nausea & Vomiting 09/05/18 07:42 09/30/18 07:41 09/07/18 08:05 Patient Own Medication (Patient's Own Med) 1 ea BID@08 ORAL 09/05/18 08:00 10/01/18 19:59 09/06/18 20:00 Patient Own Medication (Patient's Own Med) 1 ea BID@0800,1999 ORAL 09/05/18 08:00 10/01/18 19:59 09/06/18 20:00 Patient Own Medication (Patient's Own Med) 1 ea DAILY@0800 ORAL 09/05/18 08:00 10/02/18 07:59 09/06/18 08:00 Phenazopyridine HCl (Pyridium) 100 mg THREE TIMES A DAY ORAL 09/05/18 09:00 10/01/18 17:59 09/07/18 09:00 Tamsulosin HCl (Flomax) 0.4 mg BEDTIME ORAL 09/05/18 21:00 09/30/18 20:59 09/06/18 21:29 Valacyclovir HCl (Valtrex) 1,000 mg QHS ORAL 09/05/18 21:00 10/01/18 20:59 09/06/18 21:30 Vancomycin HCl (Firvanq) 125 mg FOUR TIMES A DAY ORAL 09/05/18 15:00 09/12/18 14:59 09/07/18 11:10 Oliverio Rm MD Sep 07, 2018 11:51
[2018-09-07 12:00] VITALS: BP 123/83
[2018-09-07] MEDS: Metoclopramide 10mg/2ml Inj IVP SCH ×2 (14:32→20:16)
--- NOTE | 2018-09-07 14:47 | Infectious Diseases Prog Note ---
Assessment/Plan Assessment/Plan Assessment: Hypotension (improved w IVFs)- in the setting of diarrhea UTI (frequency, dysuria) -u/a wbc 10-15, shirley neg, leuk +3; ucx >100K PROTEUS MIRABILIS ( I Levo; R Amp, bactrim, Cipro, Nitro; S Ceftriaxone) Afebrile Leukocytosis; increased, now improving Diarrhea- 2ry to Cdif colitis -Cdiff toxin a/b + -09/06 SP Colonoscopy: proctitis HIV- on ARV (per pt VL UD) -09/2018 182 (10.1%) -11/2017 CD4 323 hx of rectal CA CVA 2004 HTN Plan: -D/c Flagyl #2 -Continue PO Vancomycin #/-14 for Cdiff colitis -09/06 SP Ceftriaxone #7 -Conitnue Atovaquone for PCP ppx as CD4 <200 on valtrex -Contiue ARV (Genvoya, prezista, intelence) -f/u cx -Monitor CBC/CMP, temperatures -fu stool cx, O+p Subjective Allergies: Coded Allergies: CODEINE (Unverified Allergy, Unknown, 11/28/17) EMTRICITABINE (Verified Allergy, Unknown, anxiousness, 08/31/18) SULFAMETHOXAZOLE (Unverified Allergy, Unknown, 10/27/17) TENOFOVIR (Verified Allergy, Unknown, anxiousness, 08/31/18) TRIMETHOPRIM (Unverified Allergy, Unknown, 10/27/17) Subjective afebrile leukocytosis improving Cdiff + on rectal tube Objective Vital Signs Last 24 Hour Vital Signs Date Time Temp Pulse Resp B/P (MAP) Pulse Ox O2 Delivery O2 Flow Rate FiO2 09/07/18 12:00 96.0 99 21 123/83 (96) 99 09/07/18 12:00 Nasal Cannula 2.0 09/07/18 12:00 99 09/07/18 08:00 Nasal Cannula 2.0 09/07/18 08:00 112 09/07/18 07:50 98.0 110 22 117/92 (100) 96 09/07/18 04:00 Nasal Cannula 2.0 09/07/18 04:00 98.0 113 20 150/84 (106) 94 09/07/18 04:00 120 09/07/18 00:00 Nasal Cannula 2.0 09/07/18 00:00 121 09/07/18 00:00 98.6 121 24 126/71 (89) 94 09/06/18 20:00 Nasal Cannula 2.0 09/06/18 20:00 121 09/06/18 20:00 98.6 121 24 126/71 (89) 94 09/06/18 16:00 Nasal Cannula 2.0 09/06/18 16:00 99.0 99 23 139/56 (83) 98 09/06/18 16:00 92 Height (Feet): 5 Height (Inches): 5.00 Weight (Pounds): 0 Objective GENERAL: The patient awake, responsive, in no acute distress. HEAD AND NECK: Pupils equal and reactive to light. Extraocular movements intact. Right eye has ptosis. Neck was supple. No JVD. LUNGS: Good air entry. No wheezing or rales. HEART: S1, S2. Regular rate and rhythm. No murmur or gallops. ABDOMEN: Soft, nondistended, nontender. Positive bowel sounds. Left flank tenderness on deep palpation. No rebound tenderness. No fluid shift. EXTREMITIES: No cyanosis, clubbing, or edema. NEUROLOGIC: Cranial nerves II to XII grossly intact. Motor is 5/5 in all extremities. PSYCHIATRIC: Mood and affect is intact. Microbiology Date/Time Source Procedure Growth Status 09/06/18 04:00 Stool Clostridium difficile Toxin Assay - Final Complete Laboratory Tests Test 09/07/18 04:20 White Blood Count 14.2 K/UL (4.8-10.8) H Red Blood Count 4.33 M/UL (4.70-6.10) L Hemoglobin 14.8 G/DL (14.2-18.0) Hematocrit 43.1 % (42.0-52.0) Mean Corpuscular Volume 100 FL (80-99) H Mean Corpuscular Hemoglobin 34.3 PG (27.0-31.0) H Mean Corpuscular Hemoglobin Concent 34.4 G/DL (32.0-36.0) Red Cell Distribution Width 12.6 % (11.6-14.8) Platelet Count 172 K/UL (150-450) Mean Platelet Volume 9.1 FL (6.5-10.1) Neutrophils (%) (Auto) 72.0 % (45.0-75.0) Lymphocytes (%) (Auto) 21.2 % (20.0-45.0) Monocytes (%) (Auto) 5.9 % (1.0-10.0) Eosinophils (%) (Auto) 0.3 % (0.0-3.0) Basophils (%) (Auto) 0.5 % (0.0-2.0) Sodium Level 144 MMOL/L (136-145) Potassium Level 3.4 MMOL/L (3.5-5.1) L Chloride Level 108 MMOL/L (98-107) H Carbon Dioxide Level 22 MMOL/L (21-32) Anion Gap 14 mmol/L (5-15) Blood Urea Nitrogen 19 mg/dL (7-18) H Creatinine 1.1 MG/DL (0.55-1.30) Estimat Glomerular Filtration Rate > 60 mL/min (>60) Glucose Level 119 MG/DL (74-106) H Calcium Level 9.0 MG/DL (8.5-10.1) Current Medications Medications (Trade) Dose Ordered Sig/Roman Route PRN Reason Start Time Stop Time Status Last Admin Dose Admin Acetaminophen (Tylenol) 650 mg Q4H PRN ORAL fever 09/05/18 07:40 09/30/18 07:39 09/06/18 04:53 Acetaminophen/ Hydrocodone Bitart ([place] 10/325) 1 tab Q4H PRN ORAL Moderate Pain (Pain Scale 4-6) 09/06/18 11:00 09/13/18 10:59 Al Hydroxide/Mg Hydroxide (Mylanta II) 30 ml Q6H PRN ORAL dyspepsia 09/05/18 07:40 10/05/18 07:39 Baclofen (Lioresal) 10 mg THREE TIMES A DAY ORAL 09/05/18 09:00 09/30/18 17:59 09/07/18 11:02 Ceftriaxone Sodium 1 gm/ Dextrose 55 ml @ 110 mls/hr Q24H IVPB 09/05/18 18:00 09/08/18 17:59 09/06/18 18:00 Dextrose (Dextrose 50%) 25 ml Q30M PRN IV Hypoglycemia 09/05/18 07:45 10/05/18 07:35 Dextrose (Dextrose 50%) 50 ml Q30M PRN IV hypoglycemia 09/05/18 07:45 10/05/18 07:44 Famotidine (Pepcid) 20 mg BID ORAL 09/07/18 18:00 10/07/18 17:59 Hydrocortisone (Hydrocortisone) 1 applic Q6H PRN TOPIC Itching 09/06/18 12:30 10/06/18 12:29 Loperamide HCl (Imodium) 2 mg QIDPRN PRN ORAL Diarrhea 09/05/18 07:41 10/03/18 07:40 Metoclopramide HCl (Reglan) 10 mg Q8H IVP 09/07/18 12:30 10/07/18 12:29 09/07/18 14:32 Metronidazole 100 ml @ 100 mls/hr Q8HR IVPB 09/07/18 14:00 09/14/18 13:59 09/07/18 14:36 Mirtazapine (Remeron) 15 mg BEDTIME ORAL 09/05/18 21:00 09/30/18 20:59 09/06/18 21:00 Morphine Sulfate (Morphine Sulfate) 2 mg Q4H PRN IVP Severe Pain (Pain Scale 7-10) 09/06/18 11:00 09/13/18 10:59 Ondansetron HCl (Zofran) 4 mg Q6H PRN IVP Nausea & Vomiting 09/05/18 07:42 09/30/18 07:41 09/07/18 08:05 Patient Own Medication (Patient's Own Med) 1 ea BID@08 ORAL 09/05/18 08:00 10/01/18 19:59 09/06/18 20:00 Patient Own Medication (Patient's Own Med) 1 ea BID@0800 ORAL 09/05/18 08:00 10/01/18 19:59 09/06/18 20:00 Patient Own Medication (Patient's Own Med) 1 ea DAILY@0800 ORAL 09/05/18 08:00 10/02/18 07:59 09/06/18 08:00 Phenazopyridine HCl (Pyridium) 100 mg THREE TIMES A DAY ORAL 09/05/18 09:00 10/01/18 17:59 09/07/18 09:00 Tamsulosin HCl (Flomax) 0.4 mg BEDTIME ORAL 09/05/18 21:00 09/30/18 20:59 09/06/18 21:29 Valacyclovir HCl (Valtrex) 1,000 mg QHS ORAL 09/05/18 21:00 10/01/18 20:59 09/06/18 21:30 Vancomycin HCl (Firvanq) 125 mg FOUR TIMES A DAY ORAL 09/05/18 15:00 09/12/18 14:59 09/07/18 11:10 Miranda Cordero M.D. Sep 07, 2018 14:47
[2018-09-07 16:00] VITALS: BP 144/84
[2018-09-07 17:57] LABS: ANION GAP 14 mmol/L (5-15); BLOOD UREA NITROGEN 20 mg/dL (7-18); CALCIUM 8.7 MG/DL (8.5-10.1); CARBON DIOXIDE 22 MMOL/L (21-32); CHLORIDE 108 MMOL/L (98-107); POTASSIUM 3.3 MMOL/L (3.5-5.1); SODIUM 144 MMOL/L (136-145)
--- NOTE | 2018-09-07 18:10 | Internal Med Progress Note ---
Subjective Date of Service: Sep 07, 2018 Physician Name Trey Whitaker Attending Physician Carlos Barragan MD Current Medications Medications (Trade) Dose Ordered Sig/Roman Route PRN Reason Start Time Stop Time Status Last Admin Dose Admin Acetaminophen (Tylenol) 650 mg Q4H PRN ORAL fever 09/05/18 07:40 09/30/18 07:39 09/06/18 04:53 Acetaminophen/ Hydrocodone Bitart ([place] 10/325) 1 tab Q4H PRN ORAL Moderate Pain (Pain Scale 4-6) 09/06/18 11:00 09/13/18 10:59 Al Hydroxide/Mg Hydroxide (Mylanta II) 30 ml Q6H PRN ORAL dyspepsia 09/05/18 07:40 10/05/18 07:39 Baclofen (Lioresal) 10 mg THREE TIMES A DAY ORAL 09/05/18 09:00 09/30/18 17:59 09/07/18 14:49 Dextrose (Dextrose 50%) 25 ml Q30M PRN IV Hypoglycemia 09/05/18 07:45 10/05/18 07:35 Dextrose (Dextrose 50%) 50 ml Q30M PRN IV hypoglycemia 09/05/18 07:45 10/05/18 07:44 Famotidine (Pepcid) 20 mg BID ORAL 09/07/18 18:00 10/07/18 17:59 Hydrocortisone (Hydrocortisone) 1 applic Q6H PRN TOPIC Itching 09/06/18 12:30 10/06/18 12:29 Loperamide HCl (Imodium) 2 mg QIDPRN PRN ORAL Diarrhea 09/05/18 07:41 10/03/18 07:40 Metoclopramide HCl (Reglan) 10 mg Q8H IVP 09/07/18 12:30 10/07/18 12:29 09/07/18 14:32 Mirtazapine (Remeron) 15 mg BEDTIME ORAL 09/05/18 21:00 09/30/18 20:59 09/06/18 21:00 Morphine Sulfate (Morphine Sulfate) 2 mg Q4H PRN IVP Severe Pain (Pain Scale 7-10) 09/06/18 11:00 09/13/18 10:59 Ondansetron HCl (Zofran) 4 mg Q6H PRN IVP Nausea & Vomiting 09/05/18 07:42 09/30/18 07:41 09/07/18 08:05 Patient Own Medication (Patient's Own Med) 1 ea BID@08 ORAL 09/05/18 08:00 10/01/18 19:59 09/06/18 20:00 Patient Own Medication (Patient's Own Med) 1 ea BID@08 ORAL 09/05/18 08:00 10/01/18 19:59 09/06/18 20:00 Patient Own Medication (Patient's Own Med) 1 ea DAILY@08 ORAL 09/05/18 08:00 10/02/18 07:59 09/06/18 08:00 Phenazopyridine HCl (Pyridium) 100 mg THREE TIMES A DAY ORAL 09/05/18 09:00 10/01/18 17:59 09/07/18 13:00 Tamsulosin HCl (Flomax) 0.4 mg BEDTIME ORAL 09/05/18 21:00 09/30/18 20:59 09/06/18 21:29 Valacyclovir HCl (Valtrex) 1,000 mg QHS ORAL 09/05/18 21:00 10/01/18 20:59 09/06/18 21:30 Vancomycin HCl (Firvanq) 125 mg FOUR TIMES A DAY ORAL 09/05/18 15:00 09/12/18 14:59 09/07/18 14:49 Allergies: Coded Allergies: CODEINE (Unverified Allergy, Unknown, 11/28/17) EMTRICITABINE (Verified Allergy, Unknown, anxiousness, 08/31/18) SULFAMETHOXAZOLE (Unverified Allergy, Unknown, 10/27/17) TENOFOVIR (Verified Allergy, Unknown, anxiousness, 08/31/18) TRIMETHOPRIM (Unverified Allergy, Unknown, 10/27/17) ROS Limited/Unobtainable: Yes Subjective 68 YO M admitted with flank pain. Cover for Int med-DR Barragan. CRISTIANO Objective Last Vital Signs Date Time Temp Pulse Resp B/P (MAP) Pulse Ox O2 Delivery O2 Flow Rate FiO2 09/07/18 16:00 Nasal Cannula 2.0 09/07/18 16:00 96.0 104 20 144/84 (104) 96 09/05/18 06:42 28 Laboratory Tests Test 09/07/18 04:09/07/18 17:20 White Blood Count 14.2 K/UL (4.8-10.8) H Red Blood Count 4.33 M/UL (4.70-6.10) L Hemoglobin 14.8 G/DL (14.2-18.0) Hematocrit 43.1 % (42.0-52.0) Mean Corpuscular Volume 100 FL (80-99) H Mean Corpuscular Hemoglobin 34.3 PG (27.0-31.0) H Mean Corpuscular Hemoglobin Concent 34.4 G/DL (32.0-36.0) Red Cell Distribution Width 12.6 % (11.6-14.8) Platelet Count 172 K/UL (150-450) Mean Platelet Volume 9.1 FL (6.5-10.1) Neutrophils (%) (Auto) 72.0 % (45.0-75.0) Lymphocytes (%) (Auto) 21.2 % (20.0-45.0) Monocytes (%) (Auto) 5.9 % (1.0-10.0) Eosinophils (%) (Auto) 0.3 % (0.0-3.0) Basophils (%) (Auto) 0.5 % (0.0-2.0) Sodium Level 144 MMOL/L (136-145) 144 MMOL/L (136-145) Potassium Level 3.4 MMOL/L (3.5-5.1) L 3.3 MMOL/L (3.5-5.1) L Chloride Level 108 MMOL/L (98-107) H 108 MMOL/L (98-107) H Carbon Dioxide Level 22 MMOL/L (21-32) 22 MMOL/L (21-32) Anion Gap 14 mmol/L (5-15) 14 mmol/L (5-15) Blood Urea Nitrogen 19 mg/dL (7-18) H 20 mg/dL (7-18) H Creatinine 1.1 MG/DL (0.55-1.30) 1.0 MG/DL (0.55-1.30) Estimat Glomerular Filtration Rate > 60 mL/min (>60) > 60 mL/min (>60) Glucose Level 119 MG/DL (74-106) H 129 MG/DL (74-106) H Calcium Level 9.0 MG/DL (8.5-10.1) 8.7 MG/DL (8.5-10.1) Magnesium Level 1.7 MG/DL (1.8-2.4) L Microbiology Date/Time Source Procedure Growth Status 09/06/18 04:00 Stool Clostridium difficile Toxin Assay - Final Complete Intake and Output 09/06/18 09/07/18 19:00 07:00 Intake Total 1050 ml 200 ml Output Total 2000 ml 3000 ml Balance -950 ml -2800 ml Intake Oral 800 ml 200 ml IV Total 250 ml Output Urine Total 800 ml 2000 ml Stool Total 1200 ml 800 ml Emesis 200 ml # Bowel Movements 2 Objective PHYSICAL EXAMINATION: GENERAL: The patient awake, responsive, in no acute distress. HEAD AND NECK: Pupils equal and reactive to light. Extraocular movements intact. Right eye has ptosis. Neck was supple. No JVD. LUNGS: Good air entry. No wheezing or rales. HEART: S1, S2. Regular rate and rhythm. No murmur or gallops. ABDOMEN: Soft, nondistended, nontender. Positive bowel sounds. Left flank tenderness on deep palpation. No rebound tenderness. No fluid shift. EXTREMITIES: No cyanosis, clubbing, or edema. NEUROLOGIC: Cranial nerves II to XII grossly intact. Motor is 5/5 in all extremities. RECTAL: Refused and deferred. GENITOURINARY: Refused and deferred. PSYCHIATRIC: Mood and affect is intact. Assessment/Plan Assessment/Plan ASSESSMENT: 1. Left flank pain-pyelonephritis acute UTI-proteus mirabilis 2. Acute kidney injury with ATN, most likely secondary to the prerenal azotemia with dehydration. 3. HIV. 4. Rectal CA. 5. Hypertension. 6. Major depression. 7. Anxiety. 8. History of CVA in in 2004. 9. Hypotension-resolved with fluid bolus PLAN: 1. Admit the patient to medical floor. 2. We will follow up with the ID consultation, Dr. Cordero. 3. Continue Rocephin per ID 4. Follow up with cultures. 5. Continue home medication. 6. Discussed with the patient with regard to plan of care. 7. Code status is Full Code. 8. DVT prophylaxis. Heparin subcutaneous. 9. I advised the patient to become more mobilized and ambulatory with the nurse mostly and we will monitor laboratory as well as culture. Trey Whitaker MD Sep 07, 2018 18:10
[2018-09-07 20:00] VITALS: BP 146/86
[2018-09-07] MEDS: valACYclovir HCL 500mg tab ORAL SCH (22:00)
[2018-09-07] MEDS: Tamsulosin 0.4mg cap ORAL SCH (22:34)
[2018-09-08] VITALS: BP 144/88
[2018-09-08 04:00] VITALS: BP 150/78
[2018-09-08] MEDS: Metoclopramide 10mg/2ml Inj IVP SCH ×3 (04:30→20:30)
[2018-09-08 05:36] LABS: BASOPHILS % (AUTO) 0.6 % (0.0-2.0); EOSINOPHILS % (AUTO) 1.3 % (0.0-3.0); HEMATOCRIT 39.8 % (42.0-52.0); HEMOGLOBIN 13.7 G/DL (14.2-18.0); LYMPHOCYTES % (AUTO) 22.2 % (20.0-45.0); MEAN CORPUSCULAR VOLUME 98 FL (80-99); MONOCYTES % (AUTO) 7.4 % (1.0-10.0); NEUTROPHILS % (AUTO) 68.6 % (45.0-75.0); PLATELET COUNT 174 K/UL (150-450); RED BLOOD COUNT 4.07 M/UL (4.70-6.10); RED CELL DISTRIBUTION WIDTH 12.3 % (11.6-14.8); WHITE BLOOD COUNT 11.9 K/UL (4.8-10.8)
[2018-09-08 06:11] LABS: ALANINE AMINOTRANSFERASE 29 U/L (12-78); ALBUMIN 3.1 G/DL (3.4-5.0); ALBUMIN/GLOBULIN RATIO 0.8 (1.0-2.7); ALKALINE PHOSPHATASE 107 U/L (46-116); ANION GAP 13 mmol/L (5-15); ASPARTATE AMINO TRANSFERASE 33 U/L (15-37); BILIRUBIN,TOTAL 0.6 MG/DL (0.2-1.0); BLOOD UREA NITROGEN 17 mg/dL (7-18); CALCIUM 8.8 MG/DL (8.5-10.1); CARBON DIOXIDE 21 MMOL/L (21-32); CHLORIDE 110 MMOL/L (98-107); POTASSIUM 3.8 MMOL/L (3.5-5.1); SODIUM 144 MMOL/L (136-145)
[2018-09-08 06:23] LABS: PHOSPHORUS 2.9 MG/DL (2.5-4.9)
[2018-09-08 08:00] VITALS: BP 123/82
--- NOTE | 2018-09-08 09:19 | Pulmonology Progress Note ---
Assessment/Plan Problems: (1) Sepsis (2) C. difficile colitis (3) HIV (human immunodeficiency virus infection) (4) ATN (acute tubular necrosis) (5) UTI (urinary tract infection) (6) Degenerative disc disease (7) Severe protein-calorie malnutrition Assessment/Plan improving change po flagyl to IV VS better, renal function better stool pending hold BP meds check electrolytes check cultures pyruvate for dysuria GI evaluation stool for c-diff Subjective ROS Limited/Unobtainable: No Constitutional: Reports: no symptoms HEENT: Repors: no symptoms Respiratory: Reports: no symptoms Allergies: Coded Allergies: CODEINE (Unverified Allergy, Unknown, 11/28/17) EMTRICITABINE (Verified Allergy, Unknown, anxiousness, 08/31/18) SULFAMETHOXAZOLE (Unverified Allergy, Unknown, 10/27/17) TENOFOVIR (Verified Allergy, Unknown, anxiousness, 08/31/18) TRIMETHOPRIM (Unverified Allergy, Unknown, 10/27/17) Objective Last 24 Hour Vital Signs Date Time Temp Pulse Resp B/P (MAP) Pulse Ox O2 Delivery O2 Flow Rate FiO2 09/08/18 08:00 Nasal Cannula 2.0 09/08/18 04:00 98.4 100 20 150/78 (102) 97 09/08/18 04:00 113 09/08/18 04:00 Nasal Cannula 2.0 09/08/18 00:00 Nasal Cannula 2.0 09/08/18 00:00 97.9 96 20 144/88 (106) 96 09/08/18 00:00 102 09/07/18 20:00 98 09/07/18 20:00 Nasal Cannula 2.0 09/07/18 20:00 98.3 99 20 146/86 (106) 96 09/07/18 16:00 Nasal Cannula 2.0 09/07/18 16:00 96.0 104 20 144/84 (104) 96 09/07/18 16:00 108 09/07/18 12:00 96.0 99 21 123/83 (96) 99 09/07/18 12:00 Nasal Cannula 2.0 09/07/18 12:00 99 Intake and Output 09/07/18 09/08/18 19:00 07:00 Intake Total 900 ml 240 ml Output Total 600 ml 1300 ml Balance 300 ml -1060 ml Intake Oral 800 ml 240 ml IV Total 100 ml Output Urine Total 300 ml 1000 ml Stool Total 300 ml 300 ml # Voids 3 General Appearance: WD/WN HEENT: normocephalic, atraumatic Respiratory/Chest: chest wall non-tender, accessory muscle use, crackles/rales Cardiovascular: normal peripheral pulses, normal rate Abdomen: normal bowel sounds, soft, non tender Genitourinary: normal external genitalia Extremities: no clubbing Skin: no rash Microbiology Date/Time Source Procedure Growth Status 09/06/18 04:00 Stool Clostridium difficile Toxin Assay - Final Complete 09/06/18 04:00 Rectum Stool Culture - Final NORMAL FECAL LEEANN. Complete Laboratory Tests 09/07/18 17:20: Sodium Level 144, Potassium Level 3.3L, Chloride Level 108H, Carbon Dioxide Level 22, Anion Gap 14, Blood Urea Nitrogen 20H, Creatinine 1.0, Estimat Glomerular Filtration Rate > 60, Glucose Level 129H, Calcium Level 8.7, Magnesium Level 1.7L 09/08/18 03:00: Sodium Level 144, Potassium Level 3.8, Chloride Level 110H, Carbon Dioxide Level 21, Anion Gap 13, Blood Urea Nitrogen 17, Creatinine 1.0, Estimat Glomerular Filtration Rate > 60, Glucose Level 103, Calcium Level 8.8, Magnesium Level 1.9, White Blood Count 11.9H, Red Blood Count 4.07L, Hemoglobin 13.7L, Hematocrit 39.8L, Mean Corpuscular Volume 98, Mean Corpuscular Hemoglobin 33.6H, Mean Corpuscular Hemoglobin Concent 34.3, Red Cell Distribution Width 12.3, Platelet Count 174, Mean Platelet Volume 8.7, Neutrophils (%) (Auto) 68.6, Lymphocytes (%) (Auto) 22.2, Monocytes (%) (Auto) 7.4, Eosinophils (%) (Auto) 1.3, Basophils (%) (Auto) 0.6, Phosphorus Level 2.9 , Total Bilirubin 0.6, Aspartate Amino Transf (AST/SGOT) 33, Alanine Aminotransferase (ALT/SGPT) 29, Alkaline Phosphatase 107, Total Protein 7.0, Albumin 3.1L, Globulin 3.9, Albumin/Globulin Ratio 0.8L Current Medications Medications (Trade) Dose Ordered Sig/Roman Route PRN Reason Start Time Stop Time Status Last Admin Dose Admin Acetaminophen (Tylenol) 650 mg Q4H PRN ORAL fever 09/05/18 07:40 09/30/18 07:39 09/06/18 04:53 Acetaminophen/ Hydrocodone Bitart ([place] 10/325) 1 tab Q4H PRN ORAL Moderate Pain (Pain Scale 4-6) 09/06/18 11:00 09/13/18 10:59 Al Hydroxide/Mg Hydroxide (Mylanta II) 30 ml Q6H PRN ORAL dyspepsia 09/05/18 07:40 10/05/18 07:39 Baclofen (Lioresal) 10 mg THREE TIMES A DAY ORAL 09/05/18 09:00 09/30/18 17:59 09/07/18 18:47 Dextrose (Dextrose 50%) 25 ml Q30M PRN IV Hypoglycemia 09/05/18 07:45 10/05/18 07:35 Dextrose (Dextrose 50%) 50 ml Q30M PRN IV hypoglycemia 09/05/18 07:45 10/05/18 07:44 Famotidine (Pepcid) 20 mg BID ORAL 09/07/18 18:00 10/07/18 17:59 09/08/18 08:05 Hydrocortisone (Hydrocortisone) 1 applic Q6H PRN TOPIC Itching 09/06/18 12:30 10/06/18 12:29 Loperamide HCl (Imodium) 2 mg QIDPRN PRN ORAL Diarrhea 09/05/18 07:41 10/03/18 07:40 Metoclopramide HCl (Reglan) 10 mg Q8H IVP 09/07/18 12:30 10/07/18 12:29 09/08/18 04:30 Mirtazapine (Remeron) 15 mg BEDTIME ORAL 09/05/18 21:00 09/30/18 20:59 09/07/18 22:34 Morphine Sulfate (Morphine Sulfate) 2 mg Q4H PRN IVP Severe Pain (Pain Scale 7-10) 09/06/18 11:00 09/13/18 10:59 Ondansetron HCl (Zofran) 4 mg Q6H PRN IVP Nausea & Vomiting 09/05/18 07:42 09/30/18 07:41 09/08/18 09:09 Patient Own Medication (Patient's Own Med) 1 ea BID@0800,2000 ORAL 09/05/18 08:00 10/01/18 19:59 09/07/18 21:36 Patient Own Medication (Patient's Own Med) 1 ea BID@ ORAL 09/05/18 08:00 10/01/18 19:59 09/08/18 09:09 Patient Own Medication (Patient's Own Med) 1 ea DAILY@0800 ORAL 09/05/18 08:00 10/02/18 07:59 09/06/18 08:00 Phenazopyridine HCl (Pyridium) 100 mg THREE TIMES A DAY ORAL 09/05/18 09:00 10/01/18 17:59 09/07/18 18:00 Tamsulosin HCl (Flomax) 0.4 mg BEDTIME ORAL 09/05/18 21:00 09/30/18 20:59 09/07/18 22:34 Valacyclovir HCl (Valtrex) 1,000 mg QHS ORAL 09/05/18 21:00 10/01/18 20:59 09/07/18 22:00 Vancomycin HCl (Firvanq) 125 mg FOUR TIMES A DAY ORAL 09/05/18 15:00 09/12/18 14:59 09/07/18 22:00 Oliverio Rm MD Sep 08, 2018 09:19
--- NOTE | 2018-09-08 10:52 | GI Progress Note ---
Assessment/Plan Problems: (1) History of rectal cancer ICD Codes: Z85.048 - Personal history of other malignant neoplasm of rectum, rectosigmoid junction, and anus SNOMED: 642290245 (2) Severe protein-calorie malnutrition ICD Codes: E43 - Unspecified severe protein-calorie malnutrition SNOMED: 377685135 (3) Electrolyte imbalance ICD Codes: E87.8 - Other disorders of electrolyte and fluid balance, not elsewhere classified SNOMED: 347806105 (4) Diarrhea ICD Codes: R19.7 - Diarrhea, unspecified SNOMED: 47193443 (5) Dehydration ICD Codes: E86.0 - Dehydration SNOMED: 53278951 (6) Gastroenteritis ICD Codes: K52.9 - Noninfective gastroenteritis and colitis, unspecified SNOMED: 06926850 Status: stable, unchanged Status Narrative Discussed with Dr. Germain Assessment/Plan Status post colonoscopy SUMMARY OF FINDINGS: 1. Focal proctitis suspicious for C. diff versus ulcerative colitis, status post biopsy. 2. Status post biopsy of the right and left colon to evaluate microscopic colitis. C. difficile positive RECOMMENDATIONS: Follow up biopsy results and treat accordingly. Antibiotics per infectious disease DC PPI, add H2B PRN transfusions Advance diet PT evaluation Follow labs The patient was seen and examined at bedside and all new and available data was reviewed in the patients chart. I agree with the above findings, impression and plan. (Patient seen earlier today. Signature stamp does not reflect patient encounter time.). - Dejan Germain MD Subjective Gastrointestinal/Abdominal: Reports: no symptoms Subjective Diarrhea Objective Last 24 Hour Vital Signs Date Time Temp Pulse Resp B/P (MAP) Pulse Ox O2 Delivery O2 Flow Rate FiO2 09/08/18 08:00 98.3 63 18 123/82 (96) 97 09/08/18 08:00 107 09/08/18 08:00 Nasal Cannula 2.0 09/08/18 04:00 98.4 100 20 150/78 (102) 97 09/08/18 04:00 113 09/08/18 04:00 Nasal Cannula 2.0 09/08/18 00:00 Nasal Cannula 2.0 09/08/18 00:00 97.9 96 20 144/88 (106) 96 09/08/18 00:00 102 09/07/18 20:00 98 09/07/18 20:00 Nasal Cannula 2.0 09/07/18 20:00 98.3 99 20 146/86 (106) 96 09/07/18 16:00 Nasal Cannula 2.0 09/07/18 16:00 96.0 104 20 144/84 (104) 96 09/07/18 16:00 108 09/07/18 12:00 96.0 99 21 123/83 (96) 99 09/07/18 12:00 Nasal Cannula 2.0 09/07/18 12:00 99 Intake and Output 09/07/18 09/08/18 19:00 07:00 Intake Total 900 ml 240 ml Output Total 600 ml 1300 ml Balance 300 ml -1060 ml Intake Oral 800 ml 240 ml IV Total 100 ml Output Urine Total 300 ml 1000 ml Stool Total 300 ml 300 ml # Voids 3 Laboratory Tests Test 09/07/18 17:20 09/08/18 03:00 Sodium Level 144 MMOL/L (136-145) 144 MMOL/L (136-145) Potassium Level 3.3 MMOL/L (3.5-5.1) L 3.8 MMOL/L (3.5-5.1) Chloride Level 108 MMOL/L (98-107) H 110 MMOL/L (98-107) H Carbon Dioxide Level 22 MMOL/L (21-32) 21 MMOL/L (21-32) Anion Gap 14 mmol/L (5-15) 13 mmol/L (5-15) Blood Urea Nitrogen 20 mg/dL (7-18) H 17 mg/dL (7-18) Creatinine 1.0 MG/DL (0.55-1.30) 1.0 MG/DL (0.55-1.30) Estimat Glomerular Filtration Rate > 60 mL/min (>60) > 60 mL/min (>60) Glucose Level 129 MG/DL (74-106) H 103 MG/DL (74-106) Calcium Level 8.7 MG/DL (8.5-10.1) 8.8 MG/DL (8.5-10.1) Magnesium Level 1.7 MG/DL (1.8-2.4) L 1.9 MG/DL (1.8-2.4) White Blood Count 11.9 K/UL (4.8-10.8) H Red Blood Count 4.07 M/UL (4.70-6.10) L Hemoglobin 13.7 G/DL (14.2-18.0) L Hematocrit 39.8 % (42.0-52.0) L Mean Corpuscular Volume 98 FL (80-99) Mean Corpuscular Hemoglobin 33.6 PG (27.0-31.0) H Mean Corpuscular Hemoglobin Concent 34.3 G/DL (32.0-36.0) Red Cell Distribution Width 12.3 % (11.6-14.8) Platelet Count 174 K/UL (150-450) Mean Platelet Volume 8.7 FL (6.5-10.1) Neutrophils (%) (Auto) 68.6 % (45.0-75.0) Lymphocytes (%) (Auto) 22.2 % (20.0-45.0) Monocytes (%) (Auto) 7.4 % (1.0-10.0) Eosinophils (%) (Auto) 1.3 % (0.0-3.0) Basophils (%) (Auto) 0.6 % (0.0-2.0) Phosphorus Level 2.9 MG/DL (2.5-4.9) Total Bilirubin 0.6 MG/DL (0.2-1.0) Aspartate Amino Transf (AST/SGOT) 33 U/L (15-37) Alanine Aminotransferase (ALT/SGPT) 29 U/L (12-78) Alkaline Phosphatase 107 U/L (46-116) Total Protein 7.0 G/DL (6.4-8.2) Albumin 3.1 G/DL (3.4-5.0) L Globulin 3.9 g/dL Albumin/Globulin Ratio 0.8 (1.0-2.7) L Height (Feet): 5 Height (Inches): 5.00 Weight (Pounds): 0 General Appearance: WD/WN, no apparent distress, alert Cardiovascular: normal rate Respiratory/Chest: normal breath sounds, no respiratory distress Abdominal Exam: normal bowel sounds, non tender, soft Extremities: normal range of motion, non-tender Jasen Brink NP Sep 08, 2018 10:52
[2018-09-08] MEDS ORDERED: Mylanta II UD 30ml ORAL PRN (11:30)
[2018-09-08] MEDS ORDERED: Hydrocortisone 2.5% Oint 30gm TOPIC PRN (11:30)
[2018-09-08 12:00] VITALS: BP 124/86
--- NOTE | 2018-09-08 12:33 | Infectious Diseases Prog Note ---
Assessment/Plan Assessment/Plan Assessment: Hypotension (improved w IVFs)- in the setting of diarrhea UTI (frequency, dysuria), s/p Rx -u/a wbc 10-15, shirley neg, leuk +3; ucx >100K PROTEUS MIRABILIS ( I Levo; R Amp, bactrim, Cipro, Nitro; S Ceftriaxone) Afebrile Leukocytosis; increased, now improving Diarrhea- 2ry to Cdif colitis -Cdiff toxin a/b + -3/6 SP Colonoscopy: proctitis -stool cx: normal thomas -Giardia ag neg HIV- on ARV (per pt VL UD) -09/2018 182 (10.1%) -11/2017 CD4 323 hx of rectal CA CVA 2004 HTN Plan: -Continue PO Vancomycin #3- for Cdiff colitis -09/07 SP Flagyl #2 -09/06 SP Ceftriaxone #7 -Holding Atovaquone as interaction with reglan on valtrex -Contiue ARV (Genvoya, prezista, intelence) -f/u cx -Monitor CBC/CMP, temperatures -fu cx, O+p Subjective Allergies: Coded Allergies: CODEINE (Unverified Allergy, Unknown, 11/28/17) EMTRICITABINE (Verified Allergy, Unknown, anxiousness, 08/31/18) SULFAMETHOXAZOLE (Unverified Allergy, Unknown, 10/27/17) TENOFOVIR (Verified Allergy, Unknown, anxiousness, 08/31/18) TRIMETHOPRIM (Unverified Allergy, Unknown, 10/27/17) Subjective transferred from [facility] to med surge afebrile wbc imrpoving Objective Vital Signs Last 24 Hour Vital Signs Date Time Temp Pulse Resp B/P (MAP) Pulse Ox O2 Delivery O2 Flow Rate FiO2 09/08/18 12:00 97.4 100 18 124/86 (99) 100 09/08/18 12:00 Nasal Cannula 2.0 09/08/18 08:00 98.3 63 18 123/82 (96) 97 09/08/18 08:00 107 09/08/18 08:00 Nasal Cannula 2.0 09/08/18 04:00 98.4 100 20 150/78 (102) 97 09/08/18 04:00 113 09/08/18 04:00 Nasal Cannula 2.0 09/08/18 00:00 Nasal Cannula 2.0 09/08/18 00:00 97.9 96 20 144/88 (106) 96 09/08/18 00:00 102 09/07/18 20:00 98 09/07/18 20:00 Nasal Cannula 2.0 09/07/18 20:00 98.3 99 20 146/86 (106) 96 09/07/18 16:00 Nasal Cannula 2.0 09/07/18 16:00 96.0 104 20 144/84 (104) 96 09/07/18 16:00 108 Height (Feet): 5 Height (Inches): 5.00 Weight (Pounds): 0 Objective GENERAL: The patient awake, responsive, in no acute distress. HEAD AND NECK: Pupils equal and reactive to light. Extraocular movements intact. Right eye has ptosis. Neck was supple. No JVD. LUNGS: Good air entry. No wheezing or rales. HEART: S1, S2. Regular rate and rhythm. No murmur or gallops. ABDOMEN: Soft, nondistended, nontender. Positive bowel sounds. Left flank tenderness on deep palpation. No rebound tenderness. No fluid shift. EXTREMITIES: No cyanosis, clubbing, or edema. NEUROLOGIC: Cranial nerves II to XII grossly intact. Motor is 5/5 in all extremities. PSYCHIATRIC: Mood and affect is intact. Microbiology Date/Time Source Procedure Growth Status 09/06/18 04:00 Stool Clostridium difficile Toxin Assay - Final Complete 09/06/18 04:00 Rectum Stool Culture - Final NORMAL FECAL THOMAS. Complete Laboratory Tests Test 09/07/18 17:20 09/08/18 03:00 Sodium Level 144 MMOL/L (136-145) 144 MMOL/L (136-145) Potassium Level 3.3 MMOL/L (3.5-5.1) L 3.8 MMOL/L (3.5-5.1) Chloride Level 108 MMOL/L (98-107) H 110 MMOL/L (98-107) H Carbon Dioxide Level 22 MMOL/L (21-32) 21 MMOL/L (21-32) Anion Gap 14 mmol/L (5-15) 13 mmol/L (5-15) Blood Urea Nitrogen 20 mg/dL (7-18) H 17 mg/dL (7-18) Creatinine 1.0 MG/DL (0.55-1.30) 1.0 MG/DL (0.55-1.30) Estimat Glomerular Filtration Rate > 60 mL/min (>60) > 60 mL/min (>60) Glucose Level 129 MG/DL (74-106) H 103 MG/DL (74-106) Calcium Level 8.7 MG/DL (8.5-10.1) 8.8 MG/DL (8.5-10.1) Magnesium Level 1.7 MG/DL (1.8-2.4) L 1.9 MG/DL (1.8-2.4) White Blood Count 11.9 K/UL (4.8-10.8) H Red Blood Count 4.07 M/UL (4.70-6.10) L Hemoglobin 13.7 G/DL (14.2-18.0) L Hematocrit 39.8 % (42.0-52.0) L Mean Corpuscular Volume 98 FL (80-99) Mean Corpuscular Hemoglobin 33.6 PG (27.0-31.0) H Mean Corpuscular Hemoglobin Concent 34.3 G/DL (32.0-36.0) Red Cell Distribution Width 12.3 % (11.6-14.8) Platelet Count 174 K/UL (150-450) Mean Platelet Volume 8.7 FL (6.5-10.1) Neutrophils (%) (Auto) 68.6 % (45.0-75.0) Lymphocytes (%) (Auto) 22.2 % (20.0-45.0) Monocytes (%) (Auto) 7.4 % (1.0-10.0) Eosinophils (%) (Auto) 1.3 % (0.0-3.0) Basophils (%) (Auto) 0.6 % (0.0-2.0) Phosphorus Level 2.9 MG/DL (2.5-4.9) Total Bilirubin 0.6 MG/DL (0.2-1.0) Aspartate Amino Transf (AST/SGOT) 33 U/L (15-37) Alanine Aminotransferase (ALT/SGPT) 29 U/L (12-78) Alkaline Phosphatase 107 U/L (46-116) Total Protein 7.0 G/DL (6.4-8.2) Albumin 3.1 G/DL (3.4-5.0) L Globulin 3.9 g/dL Albumin/Globulin Ratio 0.8 (1.0-2.7) L Current Medications Medications (Trade) Dose Ordered Sig/Roman Route PRN Reason Start Time Stop Time Status Last Admin Dose Admin Acetaminophen (Tylenol) 650 mg Q4H PRN ORAL fever (temp>100.5F) 09/08/18 11:45 09/30/18 07:39 Acetaminophen/ Hydrocodone Bitart ([place] 10/325) 1 tab Q4H PRN ORAL Moderate Pain (Pain Scale 4-6) 09/08/18 11:30 09/13/18 11:29 Al Hydroxide/Mg Hydroxide (Mylanta II) 30 ml Q6H PRN ORAL dyspepsia 09/08/18 11:30 10/05/18 11:29 Baclofen (Lioresal) 10 mg THREE TIMES A DAY ORAL 09/08/18 13:00 09/30/18 17:59 Dextrose (Dextrose 50%) 25 ml Q30M PRN IV Hypoglycemia 09/08/18 11:15 10/05/18 07:35 Dextrose (Dextrose 50%) 50 ml Q30M PRN IV hypoglycemia 09/08/18 11:15 10/05/18 07:44 Famotidine (Pepcid) 20 mg BID ORAL 09/08/18 18:00 10/07/18 17:59 Hydrocortisone (Hydrocortisone) 1 applic Q6H PRN TOPIC Itching 09/08/18 11:30 10/06/18 11:29 Loperamide HCl (Imodium) 2 mg QIDPRN PRN ORAL Diarrhea 09/08/18 11:30 10/08/18 11:29 Metoclopramide HCl (Reglan) 10 mg Q8H IVP 09/08/18 12:30 10/07/18 12:29 Mirtazapine (Remeron) 15 mg BEDTIME ORAL 09/08/18 21:00 09/30/18 20:59 Morphine Sulfate (Morphine Sulfate) 2 mg Q4H PRN IVP Severe Pain (Pain Scale 7-10) 09/08/18 11:30 09/13/18 11:29 Ondansetron HCl (Zofran) 4 mg Q6H PRN IVP Nausea & Vomiting 09/08/18 11:30 09/30/18 11:29 Patient Own Medication (Patient's Own Med) 1 ea BID@0800,1999 ORAL 09/08/18 20:00 10/01/18 19:59 Patient Own Medication (Patient's Own Med) 1 ea BID@0800,1999 ORAL 09/08/18 20:00 10/01/18 19:59 Patient Own Medication (Patient's Own Med) 1 ea DAILY@0800 ORAL 09/09/18 08:00 10/02/18 07:59 Tamsulosin HCl (Flomax) 0.4 mg BEDTIME ORAL 09/08/18 21:00 09/30/18 20:59 Valacyclovir HCl (Valtrex) 1,000 mg QHS ORAL 09/08/18 21:00 10/01/18 20:59 Vancomycin HCl (Firvanq) 125 mg FOUR TIMES A DAY ORAL 09/08/18 13:00 09/12/18 14:59 Miranda Cordero M.D. Sep 08, 2018 12:33
[2018-09-08] MEDS: Vancomycin oral 125mg/2.5ml ORAL SCH ×3 (13:22→20:48)
[2018-09-08 16:00] VITALS: BP 115/82
--- NOTE | 2018-09-08 19:15 | Internal Med Progress Note ---
Subjective Date of Service: Sep 08, 2018 Physician Name Trey Whitaker Attending Physician Carlos Barragan MD Current Medications Medications (Trade) Dose Ordered Sig/Roman Route PRN Reason Start Time Stop Time Status Last Admin Dose Admin Acetaminophen (Tylenol) 650 mg Q4H PRN ORAL fever (temp>100.5F) 09/08/18 11:45 09/30/18 07:39 Acetaminophen/ Hydrocodone Bitart ([place] 10/325) 1 tab Q4H PRN ORAL Moderate Pain (Pain Scale 4-6) 09/08/18 11:30 09/13/18 11:29 Al Hydroxide/Mg Hydroxide (Mylanta II) 30 ml Q6H PRN ORAL dyspepsia 09/08/18 11:30 10/05/18 11:29 Baclofen (Lioresal) 10 mg THREE TIMES A DAY ORAL 09/08/18 13:00 09/30/18 17:59 09/08/18 18:23 Dextrose (Dextrose 50%) 25 ml Q30M PRN IV Hypoglycemia 09/08/18 11:15 10/05/18 07:35 Dextrose (Dextrose 50%) 50 ml Q30M PRN IV hypoglycemia 09/08/18 11:15 10/05/18 07:44 Famotidine (Pepcid) 20 mg BID ORAL 09/08/18 18:00 10/07/18 17:59 09/08/18 18:22 Hydrocortisone (Hydrocortisone) 1 applic Q6H PRN TOPIC Itching 09/08/18 11:30 10/06/18 11:29 Loperamide HCl (Imodium) 2 mg QIDPRN PRN ORAL Diarrhea 09/08/18 11:30 10/08/18 11:29 Metoclopramide HCl (Reglan) 10 mg Q8H IVP 09/08/18 12:30 10/07/18 12:29 09/08/18 13:22 Mirtazapine (Remeron) 15 mg BEDTIME ORAL 09/08/18 21:00 09/30/18 20:59 Morphine Sulfate (Morphine Sulfate) 2 mg Q4H PRN IVP Severe Pain (Pain Scale 7-10) 09/08/18 11:30 09/13/18 11:29 Ondansetron HCl (Zofran) 4 mg Q6H PRN IVP Nausea & Vomiting 09/08/18 11:30 09/30/18 11:29 Patient Own Medication (Patient's Own Med) 1 ea BID@08 ORAL 09/08/18 20:00 10/01/18 19:59 Patient Own Medication (Patient's Own Med) 1 ea BID@0800,1999 ORAL 09/08/18 20:00 10/01/18 19:59 Patient Own Medication (Patient's Own Med) 1 ea DAILY@0800 ORAL 09/09/18 08:00 10/02/18 07:59 Tamsulosin HCl (Flomax) 0.4 mg BEDTIME ORAL 09/08/18 21:00 09/30/18 20:59 Valacyclovir HCl (Valtrex) 1,000 mg QHS ORAL 09/08/18 21:00 10/01/18 20:59 Vancomycin HCl (Firvanq) 125 mg FOUR TIMES A DAY ORAL 09/08/18 13:00 09/12/18 14:59 09/08/18 18:22 Allergies: Coded Allergies: CODEINE (Unverified Allergy, Unknown, 11/28/17) EMTRICITABINE (Verified Allergy, Unknown, anxiousness, 08/31/18) SULFAMETHOXAZOLE (Unverified Allergy, Unknown, 10/27/17) TENOFOVIR (Verified Allergy, Unknown, anxiousness, 08/31/18) TRIMETHOPRIM (Unverified Allergy, Unknown, 10/27/17) ROS Limited/Unobtainable: No Constitutional: Reports: no symptoms HEENT: Reports: no symptoms Cardiovascular: Reports: no symptoms Respiratory: Reports: no symptoms Gastrointestinal/Abdominal: Reports: no symptoms Genitourinary: Reports: no symptoms 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: Reports: no symptoms Subjective 68 YO M admitted with flank pain. Cover for Int med-DR Barragan. CRISTIANO Objective Last Vital Signs Date Time Temp Pulse Resp B/P (MAP) Pulse Ox O2 Delivery O2 Flow Rate FiO2 09/08/18 16:00 Nasal Cannula 2.0 09/08/18 16:00 98.0 112 20 115/82 (93) 94 09/05/18 06:42 28 Laboratory Tests Test 09/08/18 03:00 White Blood Count 11.9 K/UL (4.8-10.8) H Red Blood Count 4.07 M/UL (4.70-6.10) L Hemoglobin 13.7 G/DL (14.2-18.0) L Hematocrit 39.8 % (42.0-52.0) L Mean Corpuscular Volume 98 FL (80-99) Mean Corpuscular Hemoglobin 33.6 PG (27.0-31.0) H Mean Corpuscular Hemoglobin Concent 34.3 G/DL (32.0-36.0) Red Cell Distribution Width 12.3 % (11.6-14.8) Platelet Count 174 K/UL (150-450) Mean Platelet Volume 8.7 FL (6.5-10.1) Neutrophils (%) (Auto) 68.6 % (45.0-75.0) Lymphocytes (%) (Auto) 22.2 % (20.0-45.0) Monocytes (%) (Auto) 7.4 % (1.0-10.0) Eosinophils (%) (Auto) 1.3 % (0.0-3.0) Basophils (%) (Auto) 0.6 % (0.0-2.0) Sodium Level 144 MMOL/L (136-145) Potassium Level 3.8 MMOL/L (3.5-5.1) Chloride Level 110 MMOL/L (98-107) H Carbon Dioxide Level 21 MMOL/L (21-32) Anion Gap 13 mmol/L (5-15) Blood Urea Nitrogen 17 mg/dL (7-18) Creatinine 1.0 MG/DL (0.55-1.30) Estimat Glomerular Filtration Rate > 60 mL/min (>60) Glucose Level 103 MG/DL (74-106) Calcium Level 8.8 MG/DL (8.5-10.1) Phosphorus Level 2.9 MG/DL (2.5-4.9) Magnesium Level 1.9 MG/DL (1.8-2.4) Total Bilirubin 0.6 MG/DL (0.2-1.0) Aspartate Amino Transf (AST/SGOT) 33 U/L (15-37) Alanine Aminotransferase (ALT/SGPT) 29 U/L (12-78) Alkaline Phosphatase 107 U/L (46-116) Total Protein 7.0 G/DL (6.4-8.2) Albumin 3.1 G/DL (3.4-5.0) L Globulin 3.9 g/dL Albumin/Globulin Ratio 0.8 (1.0-2.7) L Microbiology Date/Time Source Procedure Growth Status 09/06/18 04:00 Stool Clostridium difficile Toxin Assay - Final Complete 09/06/18 04:00 Rectum Stool Culture - Final NORMAL FECAL LEEANN. Complete Intake and Output 09/07/18 09/08/18 19:00 07:00 Intake Total 900 ml 240 ml Output Total 600 ml 1300 ml Balance 300 ml -1060 ml Intake Oral 800 ml 240 ml IV Total 100 ml Output Urine Total 300 ml 1000 ml Stool Total 300 ml 300 ml # Voids 3 Objective PHYSICAL EXAMINATION: GENERAL: The patient awake, responsive, in no acute distress. HEAD AND NECK: Pupils equal and reactive to light. Extraocular movements intact. Right eye has ptosis. Neck was supple. No JVD. LUNGS: Good air entry. No wheezing or rales. HEART: S1, S2. Regular rate and rhythm. No murmur or gallops. ABDOMEN: Soft, nondistended, nontender. Positive bowel sounds. Left flank tenderness on deep palpation. No rebound tenderness. No fluid shift. EXTREMITIES: No cyanosis, clubbing, or edema. NEUROLOGIC: Cranial nerves II to XII grossly intact. Motor is 5/5 in all extremities. RECTAL: Refused and deferred. GENITOURINARY: Refused and deferred. PSYCHIATRIC: Mood and affect is intact. Assessment/Plan Assessment/Plan ASSESSMENT: 1. Left flank pain-pyelonephritis acute UTI-proteus mirabilis 2. Acute kidney injury with ATN, most likely secondary to the prerenal azotemia with dehydration. 3. HIV. 4. Rectal CA. 5. Hypertension. 6. Major depression. 7. Anxiety. 8. History of CVA in in 2004. 9. Hypotension-resolved with fluid bolus 10. Clostridium dificile diarrhea PLAN: 1. Admit the patient to medical floor. 2. We will follow up with the ID consultation, Dr. Cordero. 3. D/C Rocephin per ID 4. Follow up with cultures. 5. Continue home medication. 6. Discussed with the patient with regard to plan of care. 7. Code status is Full Code. 8. DVT prophylaxis. Heparin subcutaneous. 9. I advised the patient to become more mobilized and ambulatory with the nurse mostly and we will monitor laboratory as well as culture. 10. Oral vanco for C. Diff Trey Whitaker MD 8, 2019 19:15
[2018-09-08 20:00] VITALS: BP 121/71
[2018-09-08] MEDS: PREZISTA 800 MG ORAL SCH (20:30)
[2018-09-08] MEDS: INTELENCE 200 MG ORAL SCH (20:31)
[2018-09-08] MEDS: valACYclovir HCL 500mg tab ORAL SCH (20:48)
[2018-09-08] MEDS: Tamsulosin 0.4mg cap ORAL SCH (20:48)
[2018-09-09 00:40] VITALS: BP 133/80
[2018-09-09 04:53] VITALS: BP 109/83
[2018-09-09] MEDS: Metoclopramide 10mg/2ml Inj IVP SCH ×3 (05:06→21:12)
[2018-09-09 05:17] LABS: BASOPHILS % (AUTO) 0.8 % (0.0-2.0); EOSINOPHILS % (AUTO) 1.7 % (0.0-3.0); HEMATOCRIT 38.9 % (42.0-52.0); HEMOGLOBIN 13.6 G/DL (14.2-18.0); LYMPHOCYTES % (AUTO) 26.7 % (20.0-45.0); MEAN CORPUSCULAR VOLUME 97 FL (80-99); MONOCYTES % (AUTO) 7.6 % (1.0-10.0); NEUTROPHILS % (AUTO) 63.3 % (45.0-75.0); PLATELET COUNT 163 K/UL (150-450); RED BLOOD COUNT 4.02 M/UL (4.70-6.10); RED CELL DISTRIBUTION WIDTH 12.3 % (11.6-14.8); WHITE BLOOD COUNT 9.1 K/UL (4.8-10.8)
[2018-09-09 05:25] LABS: ANION GAP 14 mmol/L (5-15); BLOOD UREA NITROGEN 17 mg/dL (7-18); CALCIUM 9.1 MG/DL (8.5-10.1); CARBON DIOXIDE 22 MMOL/L (21-32); CHLORIDE 107 MMOL/L (98-107); CREATININE 1.2 MG/DL (0.55-1.30); POTASSIUM 3.2 MMOL/L (3.5-5.1); SODIUM 143 MMOL/L (136-145)
[2018-09-09] MEDS: Loperamide 2mg cap ORAL PRN ×2 (06:23→11:37)
--- NOTE | 2018-09-09 07:30 | Pulmonology Progress Note ---
Assessment/Plan Assessment/Plan ASSESSMENT Sepsis Proteus UTI, s/p Rx C dif colitis with associated diarrhea Acute proctitis Hypotension ( probably due to dehydration 2 to diarrhea) HIV status Hx of rectal Ca Dehydration HARVINDER with ATN ( most likely due to prerenal azotemia due to dehydration) Severe protein calorie malnutrition DDD Major depression Anxiety Hx of CVA PLAN OF CARE MS floor O2 prn ,HHN prn CXR stable stool C dif + on Vanco po stool cx negative, Giardia Ag negative supportive care ; Imodium prn fup with stool O&P a/emetic prn GI prophylaxis GI follows recommend rectal tube and probiotics - per Gi discretion urine cx + Proteus, sp Rx on ARV, CD4 323, VL UD as per pt s/p IVF hypotension was likely due to dehydration 2 to diarrhea, improving monitor renal parameters, lytes, correct as needed (K replaced today); avoid nephrotoxics, give 1 L of fluids today dietary recs implemented in POC supportive care pain management case discussed and evaluated by supervising physician Subjective Allergies: Coded Allergies: CODEINE (Unverified Allergy, Unknown, 11/28/17) EMTRICITABINE (Verified Allergy, Unknown, anxiousness, 08/31/18) SULFAMETHOXAZOLE (Unverified Allergy, Unknown, 10/27/17) TENOFOVIR (Verified Allergy, Unknown, anxiousness, 08/31/18) TRIMETHOPRIM (Unverified Allergy, Unknown, 10/27/17) Subjective leuk resolved afebrile pulse ox stable on RA diarrhea continues Objective Last 24 Hour Vital Signs Date Time Temp Pulse Resp B/P (MAP) Pulse Ox O2 Delivery O2 Flow Rate FiO2 09/09/18 04:53 98.2 116 18 109/83 (92) 98 09/09/18 01:57 104 09/09/18 00:40 97.0 115 20 133/80 (97) 94 09/08/18 23:59 Room Air 09/08/18 23:59 94 Room Air 21 09/08/18 22:32 Room Air 09/08/18 20:00 98.2 105 20 121/71 (88) 93 09/08/18 16:00 Nasal Cannula 2.0 09/08/18 16:00 98.0 112 20 115/82 (93) 94 09/08/18 12:00 97.4 100 18 124/86 (99) 100 09/08/18 12:00 Nasal Cannula 2.0 09/08/18 08:00 98.3 63 18 123/82 (96) 97 09/08/18 08:00 107 09/08/18 08:00 Nasal Cannula 2.0 Intake and Output 09/08/18 09/09/18 19:00 07:00 Intake Total 360 ml 240 ml Output Total 1020 ml 550 ml Balance -660 ml -310 ml Intake Oral 360 ml 240 ml Output Urine Total 600 ml 550 ml Stool Total 420 ml # Bowel Movements 3 General Appearance: no acute distress HEENT: normocephalic, atraumatic, anicteric, mucous membranes moist Respiratory/Chest: lungs clear, no accessory muscle use Cardiovascular: normal peripheral pulses, tachycardia - 100-114 Abdomen: normal bowel sounds, soft, non tender Extremities: no edema 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: no motor/sensory deficits, alert, oriented x 3, responsive Musculoskeletal: normal muscle bulk Laboratory Tests 09/09/18 04:48: White Blood Count 9.1, Red Blood Count 4.02L, Hemoglobin 13.6L, Hematocrit 38.9L , Mean Corpuscular Volume 97, Mean Corpuscular Hemoglobin 33.9H, Mean Corpuscular Hemoglobin Concent 35.0, Red Cell Distribution Width 12.3, Platelet Count 163, Mean Platelet Volume 9.1, Neutrophils (%) (Auto) 63.3, Lymphocytes (% ) (Auto) 26.7, Monocytes (%) (Auto) 7.6, Eosinophils (%) (Auto) 1.7, Basophils ( %) (Auto) 0.8, Sodium Level 143, Potassium Level 3.2L, Chloride Level 107, Carbon Dioxide Level 22, Anion Gap 14, Blood Urea Nitrogen 17, Creatinine 1.2, Estimat Glomerular Filtration Rate 59.9, Glucose Level 107H, Calcium Level 9.1 Current Medications Medications (Trade) Dose Ordered Sig/Roman Route PRN Reason Start Time Stop Time Status Last Admin Dose Admin Acetaminophen (Tylenol) 650 mg Q4H PRN ORAL fever (temp>100.5F) 09/08/18 11:45 09/30/18 07:39 Acetaminophen/ Hydrocodone Bitart ([place] 10/325) 1 tab Q4H PRN ORAL Moderate Pain (Pain Scale 4-6) 09/08/18 11:30 09/13/18 11:29 Al Hydroxide/Mg Hydroxide (Mylanta II) 30 ml Q6H PRN ORAL dyspepsia 09/08/18 11:30 10/05/18 11:29 Baclofen (Lioresal) 10 mg THREE TIMES A DAY ORAL 09/08/18 13:00 09/30/18 17:59 09/08/18 18:23 Dextrose (Dextrose 50%) 25 ml Q30M PRN IV Hypoglycemia 09/08/18 11:15 10/05/18 07:35 Dextrose (Dextrose 50%) 50 ml Q30M PRN IV hypoglycemia 09/08/18 11:15 10/05/18 07:44 Famotidine (Pepcid) 20 mg BID ORAL 09/08/18 18:00 10/07/18 17:59 09/08/18 18:22 Hydrocortisone (Hydrocortisone) 1 applic Q6H PRN TOPIC Itching 09/08/18 11:30 10/06/18 11:29 Loperamide HCl (Imodium) 2 mg QIDPRN PRN ORAL Diarrhea 09/08/18 11:30 10/08/18 11:29 09/09/18 06:23 Metoclopramide HCl (Reglan) 10 mg Q8H IVP 09/08/18 12:30 10/07/18 12:29 09/09/18 05:06 Mirtazapine (Remeron) 15 mg BEDTIME ORAL 09/08/18 21:00 09/30/18 20:59 09/08/18 20:48 Morphine Sulfate (Morphine Sulfate) 2 mg Q4H PRN IVP Severe Pain (Pain Scale 7-10) 09/08/18 11:30 09/13/18 11:29 Ondansetron HCl (Zofran) 4 mg Q6H PRN IVP Nausea & Vomiting 09/08/18 11:30 09/30/18 11:29 Patient Own Medication (Patient's Own Med) 1 ea BID@0800 ORAL 09/08/18 20:00 10/01/18 19:59 09/08/18 20:30 Patient Own Medication (Patient's Own Med) 1 ea BID@0800,1999 ORAL 09/08/18 20:00 10/01/18 19:59 09/08/18 20:31 Patient Own Medication (Patient's Own Med) 1 ea DAILY@0800 ORAL 09/09/18 08:00 10/02/18 07:59 Tamsulosin HCl (Flomax) 0.4 mg BEDTIME ORAL 09/08/18 21:00 09/30/18 20:59 09/08/18 20:48 Valacyclovir HCl (Valtrex) 1,000 mg QHS ORAL 09/08/18 21:00 10/01/18 20:59 09/08/18 20:48 Vancomycin HCl (Firvanq) 125 mg FOUR TIMES A DAY ORAL 09/08/18 13:00 09/12/18 14:59 09/08/18 20:48 Karla Mason NP Sep 09, 2018 07:30
[2018-09-09 08:00] VITALS: BP 131/68
[2018-09-09] MEDS: Vancomycin oral 125mg/2.5ml ORAL SCH ×4 (09:11→21:10)
[2018-09-09] MEDS: PREZISTA 800 MG ORAL SCH ×2 (09:34→21:09)
[2018-09-09] MEDS: INTELENCE 200 MG ORAL SCH ×2 (09:34→21:09)
--- NOTE | 2018-09-09 09:49 | Infectious Diseases Prog Note ---
Assessment/Plan Assessment/Plan Hypotension (improved w IVFs)- in the setting of diarrhea UTI (frequency, dysuria), s/p Rx -u/a wbc 10-15, shirley neg, leuk +3; ucx >100K PROTEUS MIRABILIS ( I Levo; R Amp, bactrim, Cipro, Nitro; S Ceftriaxone) Afebrile Leukocytosis; increased, now improving Diarrhea- 2ry to Cdif colitis -Cdiff toxin a/b + -3/ SP Colonoscopy: proctitis -stool cx: normal thomas -Giardia ag neg HIV- on ARV (per pt VL UD) -09/2018 182 (10.1%) -11/2017 CD4 323 hx of rectal CA CVA 2004 HTN Plan: -Continue PO Vancomycin #/-14 for Cdiff colitis -09/07 SP Flagyl #2 -09/06 SP Ceftriaxone #7 -Holding Atovaquone as interaction with reglan on valtrex -Contiue ARV (Genvoya, prezista, intelence) -Monitor CBC/CMP, temperatures -fu cx, O+p Subjective Allergies: Coded Allergies: CODEINE (Unverified Allergy, Unknown, 11/28/17) EMTRICITABINE (Verified Allergy, Unknown, anxiousness, 08/31/18) SULFAMETHOXAZOLE (Unverified Allergy, Unknown, 10/27/17) TENOFOVIR (Verified Allergy, Unknown, anxiousness, 08/31/18) TRIMETHOPRIM (Unverified Allergy, Unknown, 10/27/17) Subjective Afebrile Leukocytosis resolved Objective Vital Signs Last 24 Hour Vital Signs Date Time Temp Pulse Resp B/P (MAP) Pulse Ox O2 Delivery O2 Flow Rate FiO2 09/09/18 09:00 Room Air 09/09/18 08:00 97.0 106 22 131/68 (89) 95 09/09/18 04:53 98.2 116 18 109/83 (92) 98 09/09/18 01:57 104 09/09/18 00:40 97.0 115 20 133/80 (97) 94 09/08/18 23:59 Room Air 09/08/18 23:59 94 Room Air 21 09/08/18 22:32 Room Air 09/08/18 20:00 98.2 105 20 121/71 (88) 93 09/08/18 16:00 Nasal Cannula 2.0 09/08/18 16:00 98.0 112 20 115/82 (93) 94 09/08/18 12:00 97.4 100 18 124/86 (99) 100 09/08/18 12:00 Nasal Cannula 2.0 Height (Feet): 5 Height (Inches): 5.00 Weight (Pounds): 0 Objective GENERAL: NAD HEAD AND NECK: NCAT, MMM, EOMI LUNGS: CTAB, No wheezing or rales. HEART: S1, S2. Regular rate and rhythm. ABDOMEN: Soft, nondistended, nontender. Laboratory Tests Test 09/09/18 04:48 White Blood Count 9.1 K/UL (4.8-10.8) Red Blood Count 4.02 M/UL (4.70-6.10) L Hemoglobin 13.6 G/DL (14.2-18.0) L Hematocrit 38.9 % (42.0-52.0) L Mean Corpuscular Volume 97 FL (80-99) Mean Corpuscular Hemoglobin 33.9 PG (27.0-31.0) H Mean Corpuscular Hemoglobin Concent 35.0 G/DL (32.0-36.0) Red Cell Distribution Width 12.3 % (11.6-14.8) Platelet Count 163 K/UL (150-450) Mean Platelet Volume 9.1 FL (6.5-10.1) Neutrophils (%) (Auto) 63.3 % (45.0-75.0) Lymphocytes (%) (Auto) 26.7 % (20.0-45.0) Monocytes (%) (Auto) 7.6 % (1.0-10.0) Eosinophils (%) (Auto) 1.7 % (0.0-3.0) Basophils (%) (Auto) 0.8 % (0.0-2.0) Sodium Level 143 MMOL/L (136-145) Potassium Level 3.2 MMOL/L (3.5-5.1) L Chloride Level 107 MMOL/L (98-107) Carbon Dioxide Level 22 MMOL/L (21-32) Anion Gap 14 mmol/L (5-15) Blood Urea Nitrogen 17 mg/dL (7-18) Creatinine 1.2 MG/DL (0.55-1.30) Estimat Glomerular Filtration Rate 59.9 mL/min (>60) Glucose Level 107 MG/DL (74-106) H Calcium Level 9.1 MG/DL (8.5-10.1) Current Medications Medications (Trade) Dose Ordered Sig/Roman Route PRN Reason Start Time Stop Time Status Last Admin Dose Admin Acetaminophen (Tylenol) 650 mg Q4H PRN ORAL fever (temp>100.5F) 09/08/18 11:45 09/30/18 07:39 Acetaminophen/ Hydrocodone Bitart ([place] 10/325) 1 tab Q4H PRN ORAL Moderate Pain (Pain Scale 4-6) 09/08/18 11:30 09/13/18 11:29 Al Hydroxide/Mg Hydroxide (Mylanta II) 30 ml Q6H PRN ORAL dyspepsia 09/08/18 11:30 10/05/18 11:29 Baclofen (Lioresal) 10 mg THREE TIMES A DAY ORAL 09/08/18 13:00 09/30/18 17:59 09/09/18 09:11 Dextrose (Dextrose 50%) 25 ml Q30M PRN IV Hypoglycemia 09/08/18 11:15 10/05/18 07:35 Dextrose (Dextrose 50%) 50 ml Q30M PRN IV hypoglycemia 09/08/18 11:15 10/05/18 07:44 Famotidine (Pepcid) 20 mg BID ORAL 09/08/18 18:00 10/07/18 17:59 09/09/18 09:11 Hydrocortisone (Hydrocortisone) 1 applic Q6H PRN TOPIC Itching 09/08/18 11:30 10/06/18 11:29 Loperamide HCl (Imodium) 2 mg QIDPRN PRN ORAL Diarrhea 09/08/18 11:30 10/08/18 11:29 09/09/18 06:23 Metoclopramide HCl (Reglan) 10 mg Q8H IVP 09/08/18 12:30 10/07/18 12:29 09/09/18 05:06 Mirtazapine (Remeron) 15 mg BEDTIME ORAL 09/08/18 21:00 09/30/18 20:59 09/08/18 20:48 Morphine Sulfate (Morphine Sulfate) 2 mg Q4H PRN IVP Severe Pain (Pain Scale 7-10) 09/08/18 11:30 09/13/18 11:29 Ondansetron HCl (Zofran) 4 mg Q6H PRN IVP Nausea & Vomiting 09/08/18 11:30 09/30/18 11:29 Patient Own Medication (Patient's Own Med) 1 ea BID@0800,1999 ORAL 09/08/18 20:00 10/01/18 19:59 09/09/18 09:34 Patient Own Medication (Patient's Own Med) 1 ea BID@08 ORAL 09/08/18 20:00 10/01/18 19:59 09/09/18 09:34 Patient Own Medication (Patient's Own Med) 1 ea DAILY@0800 ORAL 09/09/18 08:00 10/02/18 07:59 09/09/18 09:34 Tamsulosin HCl (Flomax) 0.4 mg BEDTIME ORAL 09/08/18 21:00 09/30/18 20:59 09/08/18 20:48 Valacyclovir HCl (Valtrex) 1,000 mg QHS ORAL 09/08/18 21:00 10/01/18 20:59 09/08/18 20:48 Vancomycin HCl (Firvanq) 125 mg FOUR TIMES A DAY ORAL 09/08/18 13:00 09/12/18 14:59 09/09/18 09:11 Price Singh MD Sep 09, 2018 09:49
[2018-09-09] MEDS: HYDROcodone/Acetamin 10/325 tab ORAL PRN (11:38)
[2018-09-09 12:00] VITALS: BP 134/79
[2018-09-09 16:00] VITALS: BP 131/68
--- NOTE | 2018-09-09 17:51 | Internal Med Progress Note ---
Subjective Date of Service: Sep 09, 2018 Physician Name JulianneTrey Attending Physician Carlos Barragan MD Current Medications Medications (Trade) Dose Ordered Sig/Roman Route PRN Reason Start Time Stop Time Status Last Admin Dose Admin Acetaminophen (Tylenol) 650 mg Q4H PRN ORAL fever (temp>100.5F) 09/08/18 11:45 09/30/18 07:39 Acetaminophen/ Hydrocodone Bitart ([place] 10/325) 1 tab Q4H PRN ORAL Moderate Pain (Pain Scale 4-6) 09/08/18 11:30 09/13/18 11:29 09/09/18 11:38 Al Hydroxide/Mg Hydroxide (Mylanta II) 30 ml Q6H PRN ORAL dyspepsia 09/08/18 11:30 10/05/18 11:29 Baclofen (Lioresal) 10 mg THREE TIMES A DAY ORAL 09/08/18 13:00 09/30/18 17:59 09/09/18 11:39 Dextrose (Dextrose 50%) 25 ml Q30M PRN IV Hypoglycemia 09/08/18 11:15 10/05/18 07:35 Dextrose (Dextrose 50%) 50 ml Q30M PRN IV hypoglycemia 09/08/18 11:15 10/05/18 07:44 Famotidine (Pepcid) 20 mg BID ORAL 09/08/18 18:00 10/07/18 17:59 09/09/18 09:11 Hydrocortisone (Hydrocortisone) 1 applic Q6H PRN TOPIC Itching 09/08/18 11:30 10/06/18 11:29 Loperamide HCl (Imodium) 2 mg QIDPRN PRN ORAL Diarrhea 09/08/18 11:30 10/08/18 11:29 09/09/18 11:37 Metoclopramide HCl (Reglan) 10 mg Q8H IVP 09/08/18 12:30 10/07/18 12:29 09/09/18 11:39 Mirtazapine (Remeron) 15 mg BEDTIME ORAL 09/08/18 21:00 09/30/18 20:59 09/08/18 20:48 Morphine Sulfate (Morphine Sulfate) 2 mg Q4H PRN IVP Severe Pain (Pain Scale 7-10) 09/08/18 11:30 09/13/18 11:29 Ondansetron HCl (Zofran) 4 mg Q6H PRN IVP Nausea & Vomiting 09/08/18 11:30 09/30/18 11:29 Patient Own Medication (Patient's Own Med) 1 ea BID@0800,1999 ORAL 09/08/18 20:00 10/01/18 19:59 09/09/18 09:34 Patient Own Medication (Patient's Own Med) 1 ea BID@0800,1999 ORAL 09/08/18 20:00 10/01/18 19:59 09/09/18 09:34 Patient Own Medication (Patient's Own Med) 1 ea DAILY@0800 ORAL 09/09/18 08:00 10/02/18 07:59 09/09/18 09:34 Sodium Chloride 1,000 ml @ 75 mls/hr [id number] IV 09/09/18 14:15 09/10/18 03:34 09/09/18 14:51 Tamsulosin HCl (Flomax) 0.4 mg BEDTIME ORAL 09/08/18 21:00 09/30/18 20:59 09/08/18 20:48 Valacyclovir HCl (Valtrex) 1,000 mg QHS ORAL 09/08/18 21:00 10/01/18 20:59 09/08/18 20:48 Vancomycin HCl (Firvanq) 125 mg FOUR TIMES A DAY ORAL 09/08/18 13:00 09/12/18 14:59 09/09/18 11:39 Allergies: Coded Allergies: CODEINE (Unverified Allergy, Unknown, 11/28/17) EMTRICITABINE (Verified Allergy, Unknown, anxiousness, 08/31/18) SULFAMETHOXAZOLE (Unverified Allergy, Unknown, 10/27/17) TENOFOVIR (Verified Allergy, Unknown, anxiousness, 08/31/18) TRIMETHOPRIM (Unverified Allergy, Unknown, 10/27/17) ROS Limited/Unobtainable: No Constitutional: Reports: no symptoms HEENT: Reports: no symptoms Cardiovascular: Reports: no symptoms Respiratory: Reports: no symptoms Gastrointestinal/Abdominal: Reports: no symptoms Genitourinary: Reports: no symptoms 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: Reports: no symptoms Subjective 68 YO M admitted with flank pain. Cover for Int med-DR Barragan. Objective Last Vital Signs Date Time Temp Pulse Resp B/P (MAP) Pulse Ox O2 Delivery O2 Flow Rate FiO2 09/09/18 16:00 97.0 106 22 131/68 (89) 97 09/09/18 09:00 Room Air 09/08/18 23:59 21 09/08/18 16:00 2.0 Laboratory Tests Test 09/09/18 04:48 White Blood Count 9.1 K/UL (4.8-10.8) Red Blood Count 4.02 M/UL (4.70-6.10) L Hemoglobin 13.6 G/DL (14.2-18.0) L Hematocrit 38.9 % (42.0-52.0) L Mean Corpuscular Volume 97 FL (80-99) Mean Corpuscular Hemoglobin 33.9 PG (27.0-31.0) H Mean Corpuscular Hemoglobin Concent 35.0 G/DL (32.0-36.0) Red Cell Distribution Width 12.3 % (11.6-14.8) Platelet Count 163 K/UL (150-450) Mean Platelet Volume 9.1 FL (6.5-10.1) Neutrophils (%) (Auto) 63.3 % (45.0-75.0) Lymphocytes (%) (Auto) 26.7 % (20.0-45.0) Monocytes (%) (Auto) 7.6 % (1.0-10.0) Eosinophils (%) (Auto) 1.7 % (0.0-3.0) Basophils (%) (Auto) 0.8 % (0.0-2.0) Sodium Level 143 MMOL/L (136-145) Potassium Level 3.2 MMOL/L (3.5-5.1) L Chloride Level 107 MMOL/L (98-107) Carbon Dioxide Level 22 MMOL/L (21-32) Anion Gap 14 mmol/L (5-15) Blood Urea Nitrogen 17 mg/dL (7-18) Creatinine 1.2 MG/DL (0.55-1.30) Estimat Glomerular Filtration Rate 59.9 mL/min (>60) Glucose Level 107 MG/DL (74-106) H Calcium Level 9.1 MG/DL (8.5-10.1) Intake and Output 09/08/18 09/09/18 19:00 07:00 Intake Total 360 ml 240 ml Output Total 1020 ml 550 ml Balance -660 ml -310 ml Intake Oral 360 ml 240 ml Output Urine Total 600 ml 550 ml Stool Total 420 ml # Bowel Movements 3 Objective PHYSICAL EXAMINATION: GENERAL: The patient awake, responsive, in no acute distress. HEAD AND NECK: Pupils equal and reactive to light. Extraocular movements intact. Right eye has ptosis. Neck was supple. No JVD. LUNGS: Good air entry. No wheezing or rales. HEART: S1, S2. Regular rate and rhythm. No murmur or gallops. ABDOMEN: Soft, nondistended, nontender. Positive bowel sounds. Left flank tenderness on deep palpation. No rebound tenderness. No fluid shift. EXTREMITIES: No cyanosis, clubbing, or edema. NEUROLOGIC: Cranial nerves II to XII grossly intact. Motor is 5/5 in all extremities. RECTAL: Refused and deferred. GENITOURINARY: Refused and deferred. PSYCHIATRIC: Mood and affect is intact. Assessment/Plan Assessment/Plan ASSESSMENT: 1. Left flank pain-pyelonephritis acute UTI-proteus mirabilis 2. Acute kidney injury with ATN, most likely secondary to the prerenal azotemia with dehydration. 3. HIV. 4. Rectal CA. 5. Hypertension. 6. Major depression. 7. Anxiety. 8. History of CVA in in 2004. 9. Hypotension-resolved with fluid bolus 10. Clostridium dificile diarrhea PLAN: 1. Admit the patient to medical floor. 2. We will follow up with the ID consultation, Dr. Cordero. 3. D/C Rocephin per ID 4. Follow up with cultures. 5. Continue home medication. 6. Discussed with the patient with regard to plan of care. 7. Code status is Full Code. 8. DVT prophylaxis. Heparin subcutaneous. 9. I advised the patient to become more mobilized and ambulatory with the nurse mostly and we will monitor laboratory as well as culture. 10. Oral vanco for C. Diff Trey Whitaker MD Sep 09, 2018 17:51
[2018-09-09] MEDS ORDERED: NS 275ml ONE (19:49)
[2018-09-09] MEDS ORDERED: NS Irrig 1000ml ONE (19:49)
[2018-09-09 20:00] VITALS: BP 146/76
[2018-09-09] MEDS: valACYclovir HCL 500mg tab ORAL SCH (21:10)
[2018-09-09] MEDS: Tamsulosin 0.4mg cap ORAL SCH (21:11)
[2018-09-10] VITALS (7 sets, daily range): BP systolic 106–148; BP diastolic 48–98
[2018-09-10] MEDS: Metoclopramide 10mg/2ml Inj IVP SCH ×3 (03:57→20:24)
[2018-09-10] MEDS: Morphine Sulfate 2mg/ml Inj(IV/IM USE ONLY) IVP PRN ×3 (06:31→21:59)
[2018-09-10 07:43] LABS: ANION GAP 13 mmol/L (5-15); BLOOD UREA NITROGEN 16 mg/dL (7-18); CALCIUM 8.8 MG/DL (8.5-10.1); CARBON DIOXIDE 20 MMOL/L (21-32); CHLORIDE 108 MMOL/L (98-107); CREATININE 1.2 MG/DL (0.55-1.30); POTASSIUM 3.3 MMOL/L (3.5-5.1); SODIUM 141 MMOL/L (136-145)
[2018-09-10 07:57] LABS: BASOPHILS % (AUTO) 0.8 % (0.0-2.0); EOSINOPHILS % (AUTO) 2.1 % (0.0-3.0); HEMATOCRIT 37.5 % (42.0-52.0); HEMOGLOBIN 12.8 G/DL (14.2-18.0); LYMPHOCYTES % (AUTO) 27.6 % (20.0-45.0); MEAN CORPUSCULAR VOLUME 97 FL (80-99); MONOCYTES % (AUTO) 10.1 % (1.0-10.0); NEUTROPHILS % (AUTO) 59.4 % (45.0-75.0); PLATELET COUNT 179 K/UL (150-450); RED BLOOD COUNT 3.86 M/UL (4.70-6.10); RED CELL DISTRIBUTION WIDTH 12.3 % (11.6-14.8); WHITE BLOOD COUNT 8.9 K/UL (4.8-10.8)
[2018-09-10] MEDS: INTELENCE 200 MG ORAL SCH ×2 (08:21→20:23)
[2018-09-10] MEDS: PREZISTA 800 MG ORAL SCH ×2 (08:22→20:00)
[2018-09-10] MEDS: Vancomycin oral 125mg/2.5ml ORAL SCH ×4 (08:22→20:24)
--- NOTE | 2018-09-10 08:31 | Pulmonology Progress Note ---
Assessment/Plan Assessment/Plan ASSESSMENT Sepsis Proteus UTI, s/p Rx C dif colitis with associated diarrhea Acute proctitis Hypotension ( probably due to dehydration 2 to diarrhea) HIV status Hx of rectal Ca Dehydration HARVINDER with ATN ( most likely due to prerenal azotemia due to dehydration) Severe protein calorie malnutrition DDD Major depression Anxiety Hx of CVA Electrolyte imbalance ( hypo K, hypo Mg) PLAN OF CARE MS floor O2 prn ,HHN prn CXR stable stool C dif + on Vanco po stool cx negative, Giardia Ag negative supportive care ; Imodium prn fup with stool O&P a/emetic prn GI prophylaxis GI follows recommend rectal tube and probiotics - per GI discretion urine cx + Proteus, sp Rx on ARV, CD4 323, VL UD as per pt s/p IVF hypotension was likely due to dehydration 2 to diarrhea, improving monitor renal parameters, lytes, correct as needed (K replaced today); avoid nephrotoxics, s/p 1 L fluid 09/09 replace K and Mg dietary recs implemented in POC supportive care pain management case discussed and evaluated by supervising physician Subjective Allergies: Coded Allergies: CODEINE (Unverified Allergy, Unknown, 11/28/17) EMTRICITABINE (Verified Allergy, Unknown, anxiousness, 08/31/18) SULFAMETHOXAZOLE (Unverified Allergy, Unknown, 10/27/17) TENOFOVIR (Verified Allergy, Unknown, anxiousness, 08/31/18) TRIMETHOPRIM (Unverified Allergy, Unknown, 10/27/17) Subjective leuk resolved afebrile pulse ox stable on RA diarrhea continues K-3.3 Mg 1.6 Objective Last 24 Hour Vital Signs Date Time Temp Pulse Resp B/P (MAP) Pulse Ox O2 Delivery O2 Flow Rate FiO2 09/10/18 04:00 98.0 112 18 123/98 (106) 94 09/10/18 00:00 98.1 100 16 119/71 (87) 97 09/09/18 21:00 Room Air 09/09/18 20:00 98.6 111 19 146/76 (99) 92 09/09/18 16:00 97.0 106 22 131/68 (89) 97 09/09/18 12:08 97.3 09/09/18 12:00 97.3 113 20 134/79 (97) 97 09/09/18 09:00 Room Air Intake and Output 09/09/18 09/10/18 18:59 06:59 Intake Total 1020 ml 1035 ml Output Total 400 ml Balance 620 ml 1035 ml Intake Oral 720 ml 360 ml IV Total 300 ml 675 ml Output Urine Total 400 ml Objective General Appearance: no acute distress HEENT: normocephalic, atraumatic, anicteric, mucous membranes moist Respiratory/Chest: lungs clear, no accessory muscle use Cardiovascular: normal peripheral pulses, tachycardia - 100-112 Abdomen: normal bowel sounds, soft, non tender Extremities: no edema 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: no motor/sensory deficits, alert, oriented x 3, responsive Musculoskeletal: normal muscle bulk Laboratory Tests 09/10/18 05:50: White Blood Count 8.9, Red Blood Count 3.86L, Hemoglobin 12.8L, Hematocrit 37.5L , Mean Corpuscular Volume 97, Mean Corpuscular Hemoglobin 33.2H, Mean Corpuscular Hemoglobin Concent 34.2, Red Cell Distribution Width 12.3, Platelet Count 179, Mean Platelet Volume 8.9, Neutrophils (%) (Auto) 59.4, Lymphocytes (% ) (Auto) 27.6, Monocytes (%) (Auto) 10.1H, Eosinophils (%) (Auto) 2.1, Basophils (%) (Auto) 0.8, Sodium Level 141, Potassium Level 3.3L, Chloride Level 108H, Carbon Dioxide Level 20L, Anion Gap 13, Blood Urea Nitrogen 16, Creatinine 1.2, Estimat Glomerular Filtration Rate 59.9, Glucose Level 101, Calcium Level 8.8, Magnesium Level 1.6L Current Medications Medications (Trade) Dose Ordered Sig/Roman Route PRN Reason Start Time Stop Time Status Last Admin Dose Admin Acetaminophen (Tylenol) 650 mg Q4H PRN ORAL fever (temp>100.5F) 09/08/18 11:45 09/30/18 07:39 Acetaminophen/ Hydrocodone Bitart ([place] 10/325) 1 tab Q4H PRN ORAL Moderate Pain (Pain Scale 4-6) 09/08/18 11:30 09/13/18 11:29 09/09/18 11:38 Al Hydroxide/Mg Hydroxide (Mylanta II) 30 ml Q6H PRN ORAL dyspepsia 09/08/18 11:30 10/05/18 11:29 Baclofen (Lioresal) 10 mg THREE TIMES A DAY ORAL 09/08/18 13:00 09/30/18 17:59 09/10/18 08:22 Dextrose (Dextrose 50%) 25 ml Q30M PRN IV Hypoglycemia 09/08/18 11:15 10/05/18 07:35 Dextrose (Dextrose 50%) 50 ml Q30M PRN IV hypoglycemia 09/08/18 11:15 10/05/18 07:44 Famotidine (Pepcid) 20 mg BID ORAL 09/08/18 18:00 10/07/18 17:59 09/10/18 08:22 Hydrocortisone (Hydrocortisone) 1 applic Q6H PRN TOPIC Itching 09/08/18 11:30 10/06/18 11:29 Loperamide HCl (Imodium) 2 mg QIDPRN PRN ORAL Diarrhea 09/08/18 11:30 10/08/18 11:29 09/09/18 11:37 Metoclopramide HCl (Reglan) 10 mg Q8H IVP 09/08/18 12:30 10/07/18 12:29 09/10/18 03:57 Mirtazapine (Remeron) 15 mg BEDTIME ORAL 09/08/18 21:00 09/30/18 20:59 09/09/18 21:10 Morphine Sulfate (Morphine Sulfate) 2 mg Q4H PRN IVP Severe Pain (Pain Scale 7-10) 09/08/18 11:30 09/13/18 11:29 09/10/18 06:31 Ondansetron HCl (Zofran) 4 mg Q6H PRN IVP Nausea & Vomiting 09/08/18 11:30 09/30/18 11:29 Patient Own Medication (Patient's Own Med) 1 ea BID@08 ORAL 09/08/18 20:00 10/01/18 19:59 09/10/18 08:21 Patient Own Medication (Patient's Own Med) 1 ea BID@0800,1999 ORAL 09/08/18 20:00 10/01/18 19:59 09/10/18 08:22 Patient Own Medication (Patient's Own Med) 1 ea DAILY@0800 ORAL 09/09/18 08:00 10/02/18 07:59 09/10/18 08:21 Tamsulosin HCl (Flomax) 0.4 mg BEDTIME ORAL 09/08/18 21:00 09/30/18 20:59 09/09/18 21:11 Valacyclovir HCl (Valtrex) 1,000 mg QHS ORAL 09/08/18 21:00 10/01/18 20:59 09/09/18 21:10 Vancomycin HCl (Firvanq) 125 mg FOUR TIMES A DAY ORAL 09/08/18 13:00 09/12/18 14:59 09/10/18 08:22 Karla Mason NP Sep 10, 2018 08:31
[2018-09-10] MEDS ORDERED: Tubing IV Secondary IV ONE (15:35)
[2018-09-10] MEDS ORDERED: NS 275ml ONE (15:35)
--- NOTE | 2018-09-10 15:43 | Internal Med Progress Note ---
Subjective Date of Service: Sep 10, 2018 Physician Name Trey Whitaker Attending Physician Carlos Barragan MD Current Medications Medications (Trade) Dose Ordered Sig/Roman Route PRN Reason Start Time Stop Time Status Last Admin Dose Admin Acetaminophen (Tylenol) 650 mg Q4H PRN ORAL fever (temp>100.5F) 09/08/18 11:45 09/30/18 07:39 Acetaminophen/ Hydrocodone Bitart ([place] 10/325) 1 tab Q4H PRN ORAL Moderate Pain (Pain Scale 4-6) 09/08/18 11:30 09/13/18 11:29 09/09/18 11:38 Al Hydroxide/Mg Hydroxide (Mylanta II) 30 ml Q6H PRN ORAL dyspepsia 09/08/18 11:30 10/05/18 11:29 Baclofen (Lioresal) 10 mg THREE TIMES A DAY ORAL 09/08/18 13:00 09/30/18 17:59 09/10/18 12:34 Dextrose (Dextrose 50%) 25 ml Q30M PRN IV Hypoglycemia 09/08/18 11:15 10/05/18 07:35 Dextrose (Dextrose 50%) 50 ml Q30M PRN IV hypoglycemia 09/08/18 11:15 10/05/18 07:44 Famotidine (Pepcid) 20 mg BID ORAL 09/08/18 18:00 10/07/18 17:59 09/10/18 08:22 Hydrocortisone (Hydrocortisone) 1 applic Q6H PRN TOPIC Itching 09/08/18 11:30 10/06/18 11:29 Loperamide HCl (Imodium) 2 mg QIDPRN PRN ORAL Diarrhea 09/08/18 11:30 10/08/18 11:29 09/09/18 11:37 Metoclopramide HCl (Reglan) 10 mg Q8H IVP 09/08/18 12:30 10/07/18 12:29 09/10/18 12:34 Mirtazapine (Remeron) 15 mg BEDTIME ORAL 09/08/18 21:00 09/30/18 20:59 09/09/18 21:10 Morphine Sulfate (Morphine Sulfate) 2 mg Q4H PRN IVP Severe Pain (Pain Scale 7-10) 09/08/18 11:30 09/13/18 11:29 09/10/18 12:37 Ondansetron HCl (Zofran) 4 mg Q6H PRN IVP Nausea & Vomiting 09/08/18 11:30 09/30/18 11:29 Patient Own Medication (Patient's Own Med) 1 ea BID@08,1999 ORAL 09/08/18 20:00 10/01/18 19:59 09/10/18 08:21 Patient Own Medication (Patient's Own Med) 1 ea BID@ ORAL 09/08/18 20:00 10/01/18 19:59 09/10/18 08:22 Patient Own Medication (Patient's Own Med) 1 ea DAILY@08 ORAL 09/09/18 08:00 10/02/18 07:59 09/10/18 08:21 Tamsulosin HCl (Flomax) 0.4 mg BEDTIME ORAL 09/08/18 21:00 09/30/18 20:59 09/09/18 21:11 Valacyclovir HCl (Valtrex) 1,000 mg QHS ORAL 09/08/18 21:00 10/01/18 20:59 09/09/18 21:10 Vancomycin HCl (Firvanq) 125 mg FOUR TIMES A DAY ORAL 09/08/18 13:00 09/12/18 14:59 09/10/18 12:34 Allergies: Coded Allergies: CODEINE (Unverified Allergy, Unknown, 11/28/17) EMTRICITABINE (Verified Allergy, Unknown, anxiousness, 08/31/18) SULFAMETHOXAZOLE (Unverified Allergy, Unknown, 10/27/17) TENOFOVIR (Verified Allergy, Unknown, anxiousness, 08/31/18) TRIMETHOPRIM (Unverified Allergy, Unknown, 10/27/17) ROS Limited/Unobtainable: No Constitutional: Reports: no symptoms HEENT: Reports: no symptoms Cardiovascular: Reports: no symptoms Respiratory: Reports: no symptoms Gastrointestinal/Abdominal: Reports: no symptoms Genitourinary: Reports: no symptoms 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: Reports: no symptoms Subjective 68 YO M admitted with flank pain. Now UTI and pyelonephritis. Also C. Diff. Cover for Int med-DR Barragan. Objective Last Vital Signs Date Time Temp Pulse Resp B/P (MAP) Pulse Ox O2 Delivery O2 Flow Rate FiO2 09/10/18 14:13 101 116/80 (92) 09/10/18 13:07 97.7 09/10/18 12:00 16 94 09/10/18 09:00 Room Air 09/10/18 08:10 21 09/08/18 16:00 2.0 Laboratory Tests Test 09/10/18 05:50 White Blood Count 8.9 K/UL (4.8-10.8) Red Blood Count 3.86 M/UL (4.70-6.10) L Hemoglobin 12.8 G/DL (14.2-18.0) L Hematocrit 37.5 % (42.0-52.0) L Mean Corpuscular Volume 97 FL (80-99) Mean Corpuscular Hemoglobin 33.2 PG (27.0-31.0) H Mean Corpuscular Hemoglobin Concent 34.2 G/DL (32.0-36.0) Red Cell Distribution Width 12.3 % (11.6-14.8) Platelet Count 179 K/UL (150-450) Mean Platelet Volume 8.9 FL (6.5-10.1) Neutrophils (%) (Auto) 59.4 % (45.0-75.0) Lymphocytes (%) (Auto) 27.6 % (20.0-45.0) Monocytes (%) (Auto) 10.1 % (1.0-10.0) H Eosinophils (%) (Auto) 2.1 % (0.0-3.0) Basophils (%) (Auto) 0.8 % (0.0-2.0) Sodium Level 141 MMOL/L (136-145) Potassium Level 3.3 MMOL/L (3.5-5.1) L Chloride Level 108 MMOL/L (98-107) H Carbon Dioxide Level 20 MMOL/L (21-32) L Anion Gap 13 mmol/L (5-15) Blood Urea Nitrogen 16 mg/dL (7-18) Creatinine 1.2 MG/DL (0.55-1.30) Estimat Glomerular Filtration Rate 59.9 mL/min (>60) Glucose Level 101 MG/DL (74-106) Calcium Level 8.8 MG/DL (8.5-10.1) Magnesium Level 1.6 MG/DL (1.8-2.4) L Intake and Output 09/09/18 09/10/18 19:00 07:00 Intake Total 1020 ml 1035 ml Output Total 400 ml Balance 620 ml 1035 ml Intake Oral 720 ml 360 ml IV Total 300 ml 675 ml Output Urine Total 400 ml Objective PHYSICAL EXAMINATION: GENERAL: The patient awake, responsive, in no acute distress. HEAD AND NECK: Pupils equal and reactive to light. Extraocular movements intact. Right eye has ptosis. Neck was supple. No JVD. LUNGS: Good air entry. No wheezing or rales. HEART: S1, S2. Regular rate and rhythm. No murmur or gallops. ABDOMEN: Soft, nondistended, nontender. Positive bowel sounds. Left flank tenderness on deep palpation. No rebound tenderness. No fluid shift. EXTREMITIES: No cyanosis, clubbing, or edema. NEUROLOGIC: Cranial nerves II to XII grossly intact. Motor is 5/5 in all extremities. RECTAL: Refused and deferred. GENITOURINARY: Refused and deferred. PSYCHIATRIC: Mood and affect is intact. Assessment/Plan Assessment/Plan ASSESSMENT: 1. Left flank pain-pyelonephritis acute UTI-proteus mirabilis 2. Acute kidney injury with ATN, most likely secondary to the prerenal azotemia with dehydration. 3. HIV. 4. Rectal CA. 5. Hypertension. 6. Major depression. 7. Anxiety. 8. History of CVA in in 2004. 9. Hypotension-resolved with fluid bolus 10. Clostridium dificile diarrhea PLAN: 1. Admit the patient to medical floor. 2. We will follow up with the ID consultation, Dr. Cordero. 3. D/C Rocephin per ID 4. Follow up with cultures. 5. Continue home medication. 6. Discussed with the patient with regard to plan of care. 7. Code status is Full Code. 8. DVT prophylaxis. Heparin subcutaneous. 9. I advised the patient to become more mobilized and ambulatory with the nurse mostly and we will monitor laboratory as well as culture. 10. Oral vanco for C. Diff Trey Whitaker MD Sep 10, 2018 15:43
[2018-09-10] MEDS: HYDROcodone/Acetamin 10/325 tab ORAL PRN (15:55)
[2018-09-10] MEDS: valACYclovir HCL 500mg tab ORAL SCH (20:24)
[2018-09-10] MEDS: Tamsulosin 0.4mg cap ORAL SCH (20:24)
[2018-09-11] VITALS (7 sets, daily range): BP systolic 111–153; BP diastolic 68–98
[2018-09-11] MEDS: Morphine Sulfate 2mg/ml Inj(IV/IM USE ONLY) IVP PRN ×4 (02:14→22:31)
[2018-09-11] MEDS: Metoclopramide 10mg/2ml Inj IVP SCH ×3 (04:52→21:50)
[2018-09-11 07:31] LABS: ANION GAP 7 mmol/L (5-15); BLOOD UREA NITROGEN 14 mg/dL (7-18); CALCIUM 8.6 MG/DL (8.5-10.1); CARBON DIOXIDE 24 MMOL/L (21-32); CHLORIDE 108 MMOL/L (98-107); POTASSIUM 3.9 MMOL/L (3.5-5.1); SODIUM 139 MMOL/L (136-145)
[2018-09-11 07:46] LABS: BASOPHILS % (AUTO) 0.6 % (0.0-2.0); HEMATOCRIT 36.7 % (42.0-52.0); HEMOGLOBIN 12.7 G/DL (14.2-18.0); LYMPHOCYTES % (AUTO) 29.7 % (20.0-45.0); MEAN CORPUSCULAR VOLUME 98 FL (80-99); MONOCYTES % (AUTO) 9.6 % (1.0-10.0); PLATELET COUNT 179 K/UL (150-450); RED BLOOD COUNT 3.75 M/UL (4.70-6.10); RED CELL DISTRIBUTION WIDTH 12.3 % (11.6-14.8); WHITE BLOOD COUNT 7.9 K/UL (4.8-10.8)
[2018-09-11] MEDS: INTELENCE 200 MG ORAL SCH ×2 (08:00→20:00)
[2018-09-11] MEDS: PREZISTA 800 MG ORAL SCH ×2 (08:00→20:00)
[2018-09-11] MEDS: Vancomycin oral 125mg/2.5ml ORAL SCH ×4 (09:28→21:50)
--- NOTE | 2018-09-11 11:13 | Infectious Diseases Prog Note ---
Assessment/Plan Assessment/Plan Assessment: Hypotension (improved w IVFs)- in the setting of diarrhea UTI (frequency, dysuria), s/p Rx -u/a wbc 10-15, shirley neg, leuk +3; ucx >100K PROTEUS MIRABILIS ( I Levo; R Amp, bactrim, Cipro, Nitro; S Ceftriaxone) Afebrile Leukocytosis; SP Diarrhea- 2ry to Cdif colitis -Cdiff toxin a/b + -3/ SP Colonoscopy: proctitis -stool cx: normal thomas -Giardia ag, cryptosporidium neg HIV- on ARV (per pt VL UD) -09/2018 182 (10.1%) -11/2017 CD4 323 hx of rectal CA CVA 2004 HTN Plan: -Continue PO Vancomycin #/- for Cdiff colitis -09/07 SP Flagyl #2 -09/06 SP Ceftriaxone #7 -Holding Atovaquone as interaction with reglan on valtrex -Contiue ARV (Genvoya, prezista, intelence)- if one medicine is missing, please hold all of them until all medicines are available -Monitor CBC/CMP, temperatures -fu cx, O+p Subjective Allergies: Coded Allergies: CODEINE (Unverified Allergy, Unknown, 11/28/17) EMTRICITABINE (Verified Allergy, Unknown, anxiousness, 08/31/18) SULFAMETHOXAZOLE (Unverified Allergy, Unknown, 10/27/17) TENOFOVIR (Verified Allergy, Unknown, anxiousness, 08/31/18) TRIMETHOPRIM (Unverified Allergy, Unknown, 10/27/17) Subjective afebrile no leukocytosis rectal tube is out Objective Vital Signs Last 24 Hour Vital Signs Date Time Temp Pulse Resp B/P (MAP) Pulse Ox O2 Delivery O2 Flow Rate FiO2 09/11/18 09:00 Room Air 09/11/18 08:00 97.5 103 18 118/78 (91) 92 09/11/18 04:00 98.0 99 19 153/95 (114) 97 09/11/18 00:00 99.0 105 18 122/81 (95) 94 09/10/18 21:00 Room Air 09/10/18 20:00 98.1 95 19 148/80 (102) 93 09/10/18 16:25 98.4 09/10/18 16:00 98.4 96 19 131/89 (103) 97 09/10/18 14:13 101 116/80 (92) 09/10/18 13:07 97.7 09/10/18 12:00 97.7 104 16 106/48 (67) 94 Height (Feet): 5 Height (Inches): 5.00 Weight (Pounds): 0 Objective GENERAL: The patient awake, responsive, in no acute distress. HEAD AND NECK: Pupils equal and reactive to light. Extraocular movements intact. Right eye has ptosis. Neck was supple. No JVD. LUNGS: Good air entry. No wheezing or rales. HEART: S1, S2. Regular rate and rhythm. No murmur or gallops. ABDOMEN: Soft, nondistended, nontender. Positive bowel sounds. Left flank tenderness on deep palpation. No rebound tenderness. No fluid shift. EXTREMITIES: No cyanosis, clubbing, or edema. NEUROLOGIC: Cranial nerves II to XII grossly intact. Motor is 5/5 in all extremities. PSYCHIATRIC: Mood and affect is intact. Laboratory Tests Test 09/11/18 06:00 White Blood Count 7.9 K/UL (4.8-10.8) Red Blood Count 3.75 M/UL (4.70-6.10) L Hemoglobin 12.7 G/DL (14.2-18.0) L Hematocrit 36.7 % (42.0-52.0) L Mean Corpuscular Volume 98 FL (80-99) Mean Corpuscular Hemoglobin 33.9 PG (27.0-31.0) H Mean Corpuscular Hemoglobin Concent 34.7 G/DL (32.0-36.0) Red Cell Distribution Width 12.3 % (11.6-14.8) Platelet Count 179 K/UL (150-450) Mean Platelet Volume 8.7 FL (6.5-10.1) Neutrophils (%) (Auto) 58.0 % (45.0-75.0) Lymphocytes (%) (Auto) 29.7 % (20.0-45.0) Monocytes (%) (Auto) 9.6 % (1.0-10.0) Eosinophils (%) (Auto) 2.0 % (0.0-3.0) Basophils (%) (Auto) 0.6 % (0.0-2.0) Sodium Level 139 MMOL/L (136-145) Potassium Level 3.9 MMOL/L (3.5-5.1) Chloride Level 108 MMOL/L (98-107) H Carbon Dioxide Level 24 MMOL/L (21-32) Anion Gap 7 mmol/L (5-15) Blood Urea Nitrogen 14 mg/dL (7-18) Creatinine 1.0 MG/DL (0.55-1.30) Estimat Glomerular Filtration Rate > 60 mL/min (>60) Glucose Level 98 MG/DL (74-106) Calcium Level 8.6 MG/DL (8.5-10.1) Magnesium Level 1.9 MG/DL (1.8-2.4) Current Medications Medications (Trade) Dose Ordered Sig/Roman Route PRN Reason Start Time Stop Time Status Last Admin Dose Admin Acetaminophen (Tylenol) 650 mg Q4H PRN ORAL fever (temp>100.5F) 09/08/18 11:45 09/30/18 07:39 Acetaminophen/ Hydrocodone Bitart ([place] 10/325) 1 tab Q4H PRN ORAL Moderate Pain (Pain Scale 4-6) 09/08/18 11:30 09/13/18 11:29 09/10/18 15:55 Al Hydroxide/Mg Hydroxide (Mylanta II) 30 ml Q6H PRN ORAL dyspepsia 09/08/18 11:30 10/05/18 11:29 Baclofen (Lioresal) 10 mg THREE TIMES A DAY ORAL 09/08/18 13:00 09/30/18 17:59 09/11/18 09:28 Dextrose (Dextrose 50%) 25 ml Q30M PRN IV Hypoglycemia 09/08/18 11:15 10/05/18 07:35 Dextrose (Dextrose 50%) 50 ml Q30M PRN IV hypoglycemia 09/08/18 11:15 10/05/18 07:44 Famotidine (Pepcid) 20 mg BID ORAL 09/08/18 18:00 10/07/18 17:59 09/11/18 09:28 Hydrocortisone (Hydrocortisone) 1 applic Q6H PRN TOPIC Itching 09/08/18 11:30 10/06/18 11:29 Loperamide HCl (Imodium) 2 mg QIDPRN PRN ORAL Diarrhea 09/08/18 11:30 10/08/18 11:29 09/09/18 11:37 Metoclopramide HCl (Reglan) 10 mg Q8H IVP 09/08/18 12:30 10/07/18 12:29 09/11/18 04:52 Mirtazapine (Remeron) 15 mg BEDTIME ORAL 09/08/18 21:00 09/30/18 20:59 09/10/18 20:24 Morphine Sulfate (Morphine Sulfate) 2 mg Q4H PRN IVP Severe Pain (Pain Scale 7-10) 09/08/18 11:30 09/13/18 11:29 09/11/18 02:14 Ondansetron HCl (Zofran) 4 mg Q6H PRN IVP Nausea & Vomiting 09/08/18 11:30 09/30/18 11:29 Patient Own Medication (Patient's Own Med) 1 ea BID@0800,1999 ORAL 09/08/18 20:00 10/01/18 19:59 09/10/18 08:22 Patient Own Medication (Patient's Own Med) 1 ea BID@0800 ORAL 09/08/18 20:00 10/01/18 19:59 09/11/18 08:00 Patient Own Medication (Patient's Own Med) 1 ea DAILY@0800 ORAL 09/09/18 08:00 10/02/18 07:59 09/11/18 08:00 Tamsulosin HCl (Flomax) 0.4 mg BEDTIME ORAL 09/08/18 21:00 09/30/18 20:59 09/10/18 20:24 Valacyclovir HCl (Valtrex) 1,000 mg QHS ORAL 09/08/18 21:00 10/01/18 20:59 09/10/18 20:24 Vancomycin HCl (Firvanq) 125 mg FOUR TIMES A DAY ORAL 09/08/18 13:00 09/19/18 23:59 09/11/18 09:28 Miranda Cordero M.D. Sep 11, 2018 11:13
--- NOTE | 2018-09-11 11:38 | GI Progress Note ---
Assessment/Plan Problems: (1) History of rectal cancer ICD Codes: Z85.048 - Personal history of other malignant neoplasm of rectum, rectosigmoid junction, and anus SNOMED: 645220034 (2) Severe protein-calorie malnutrition ICD Codes: E43 - Unspecified severe protein-calorie malnutrition SNOMED: 046576764 (3) Electrolyte imbalance ICD Codes: E87.8 - Other disorders of electrolyte and fluid balance, not elsewhere classified SNOMED: 842924197 (4) Diarrhea ICD Codes: R19.7 - Diarrhea, unspecified SNOMED: 80996710 (5) Dehydration ICD Codes: E86.0 - Dehydration SNOMED: 95472902 (6) Gastroenteritis ICD Codes: K52.9 - Noninfective gastroenteritis and colitis, unspecified SNOMED: 25529117 Status: progressing Status Narrative Discussed with Dr. Germain Assessment/Plan Status post colonoscopy SUMMARY OF FINDINGS: 1. Focal proctitis suspicious for C. diff versus ulcerative colitis, status post biopsy. 2. Status post biopsy of the right and left colon to evaluate microscopic colitis. C. difficile positive, diarrhea has improved RECOMMENDATIONS: Follow up biopsy results and treat accordingly. Antibiotics per infectious disease DC PPI, add H2B PRN transfusions Advance diet PT evaluation Follow labs The patient was seen and examined at bedside and all new and available data was reviewed in the patients chart. I agree with the above findings, impression and plan. (Patient seen earlier today. Signature stamp does not reflect patient encounter time.). - Dejan Germain MD Subjective Subjective Diarrhea Objective Last 24 Hour Vital Signs Date Time Temp Pulse Resp B/P (MAP) Pulse Ox O2 Delivery O2 Flow Rate FiO2 09/11/18 09:00 Room Air 09/11/18 08:00 97.5 103 18 118/78 (91) 92 09/11/18 04:00 98.0 99 19 153/95 (114) 97 09/11/18 00:00 99.0 105 18 122/81 (95) 94 09/10/18 21:00 Room Air 09/10/18 20:00 98.1 95 19 148/80 (102) 93 09/10/18 16:25 98.4 09/10/18 16:00 98.4 96 19 131/89 (103) 97 09/10/18 14:13 101 116/80 (92) 09/10/18 13:07 97.7 09/10/18 12:00 97.7 104 16 106/48 (67) 94 Intake and Output 09/10/18 09/11/18 18:59 06:59 Intake Total 1240 ml Balance 1240 ml Intake Oral 640 ml Other 600 ml # Voids 4 # Bowel Movements 4 Laboratory Tests Test 09/11/18 06:00 White Blood Count 7.9 K/UL (4.8-10.8) Red Blood Count 3.75 M/UL (4.70-6.10) L Hemoglobin 12.7 G/DL (14.2-18.0) L Hematocrit 36.7 % (42.0-52.0) L Mean Corpuscular Volume 98 FL (80-99) Mean Corpuscular Hemoglobin 33.9 PG (27.0-31.0) H Mean Corpuscular Hemoglobin Concent 34.7 G/DL (32.0-36.0) Red Cell Distribution Width 12.3 % (11.6-14.8) Platelet Count 179 K/UL (150-450) Mean Platelet Volume 8.7 FL (6.5-10.1) Neutrophils (%) (Auto) 58.0 % (45.0-75.0) Lymphocytes (%) (Auto) 29.7 % (20.0-45.0) Monocytes (%) (Auto) 9.6 % (1.0-10.0) Eosinophils (%) (Auto) 2.0 % (0.0-3.0) Basophils (%) (Auto) 0.6 % (0.0-2.0) Sodium Level 139 MMOL/L (136-145) Potassium Level 3.9 MMOL/L (3.5-5.1) Chloride Level 108 MMOL/L (98-107) H Carbon Dioxide Level 24 MMOL/L (21-32) Anion Gap 7 mmol/L (5-15) Blood Urea Nitrogen 14 mg/dL (7-18) Creatinine 1.0 MG/DL (0.55-1.30) Estimat Glomerular Filtration Rate > 60 mL/min (>60) Glucose Level 98 MG/DL (74-106) Calcium Level 8.6 MG/DL (8.5-10.1) Magnesium Level 1.9 MG/DL (1.8-2.4) Height (Feet): 5 Height (Inches): 5.00 Weight (Pounds): 0 General Appearance: WD/WN, no apparent distress, alert, thin Cardiovascular: normal rate Respiratory/Chest: normal breath sounds, no respiratory distress Abdominal Exam: normal bowel sounds, non tender, soft Extremities: normal range of motion, non-tender Jasen Brink NP Sep 11, 2018 11:38
--- NOTE | 2018-09-11 16:17 | Pulmonology Progress Note ---
Assessment/Plan Problems: (1) Sepsis (2) C. difficile colitis (3) HIV (human immunodeficiency virus infection) (4) ATN (acute tubular necrosis) (5) UTI (urinary tract infection) (6) Degenerative disc disease (7) Severe protein-calorie malnutrition Assessment/Plan improving VS better, renal function better check electrolytes check cultures pyruvate for dysuria pt doens't want to go to [facility] Subjective ROS Limited/Unobtainable: No Constitutional: Reports: no symptoms HEENT: Repors: no symptoms Respiratory: Reports: no symptoms Allergies: Coded Allergies: CODEINE (Unverified Allergy, Unknown, 11/28/17) EMTRICITABINE (Verified Allergy, Unknown, anxiousness, 08/31/18) SULFAMETHOXAZOLE (Unverified Allergy, Unknown, 10/27/17) TENOFOVIR (Verified Allergy, Unknown, anxiousness, 08/31/18) TRIMETHOPRIM (Unverified Allergy, Unknown, 10/27/17) Objective Last 24 Hour Vital Signs Date Time Temp Pulse Resp B/P (MAP) Pulse Ox O2 Delivery O2 Flow Rate FiO2 09/11/18 16:00 99.0 108 20 130/80 (97) 95 09/11/18 12:44 97.5 09/11/18 12:00 97.6 100 18 122/80 (94) 94 09/11/18 09:00 Room Air 09/11/18 08:00 97.5 103 18 118/78 (91) 92 09/11/18 04:00 98.0 99 19 153/95 (114) 97 09/11/18 00:00 99.0 105 18 122/81 (95) 94 09/10/18 21:00 Room Air 09/10/18 20:00 98.1 95 19 148/80 (102) 93 09/10/18 16:25 98.4 Intake and Output 09/10/18 09/11/18 19:00 07:00 Intake Total 1240 ml Balance 1240 ml Intake Oral 640 ml Other 600 ml # Voids 4 # Bowel Movements 4 Objective General Appearance: WD/WN HEENT: normocephalic, atraumatic Respiratory/Chest: chest wall non-tender, lungs clear Cardiovascular: normal peripheral pulses, normal rate Abdomen: normal bowel sounds, soft, non tender Extremities: no cyanosis Skin: no ulcers Laboratory Tests 09/11/18 06:00: White Blood Count 7.9, Red Blood Count 3.75L, Hemoglobin 12.7L, Hematocrit 36.7L , Mean Corpuscular Volume 98, Mean Corpuscular Hemoglobin 33.9H, Mean Corpuscular Hemoglobin Concent 34.7, Red Cell Distribution Width 12.3, Platelet Count 179, Mean Platelet Volume 8.7, Neutrophils (%) (Auto) 58.0, Lymphocytes (% ) (Auto) 29.7, Monocytes (%) (Auto) 9.6, Eosinophils (%) (Auto) 2.0, Basophils ( %) (Auto) 0.6, Sodium Level 139, Potassium Level 3.9, Chloride Level 108H, Carbon Dioxide Level 24, Anion Gap 7, Blood Urea Nitrogen 14, Creatinine 1.0, Estimat Glomerular Filtration Rate > 60, Glucose Level 98, Calcium Level 8.6, Magnesium Level 1.9 Current Medications Medications (Trade) Dose Ordered Sig/Roman Route PRN Reason Start Time Stop Time Status Last Admin Dose Admin Acetaminophen (Tylenol) 650 mg Q4H PRN ORAL fever (temp>100.5F) 09/08/18 11:45 09/30/18 07:39 Acetaminophen/ Hydrocodone Bitart ([place] 10/325) 1 tab Q4H PRN ORAL Moderate Pain (Pain Scale 4-6) 09/08/18 11:30 09/13/18 11:29 09/10/18 15:55 Al Hydroxide/Mg Hydroxide (Mylanta II) 30 ml Q6H PRN ORAL dyspepsia 09/08/18 11:30 10/05/18 11:29 Baclofen (Lioresal) 10 mg THREE TIMES A DAY ORAL 09/08/18 13:00 09/30/18 17:59 09/11/18 12:13 Dextrose (Dextrose 50%) 25 ml Q30M PRN IV Hypoglycemia 09/08/18 11:15 10/05/18 07:35 Dextrose (Dextrose 50%) 50 ml Q30M PRN IV hypoglycemia 09/08/18 11:15 10/05/18 07:44 Famotidine (Pepcid) 20 mg BID ORAL 09/08/18 18:00 10/07/18 17:59 09/11/18 09:28 Hydrocortisone (Hydrocortisone) 1 applic Q6H PRN TOPIC Itching 09/08/18 11:30 10/06/18 11:29 Loperamide HCl (Imodium) 2 mg QIDPRN PRN ORAL Diarrhea 09/08/18 11:30 10/08/18 11:29 09/09/18 11:37 Metoclopramide HCl (Reglan) 10 mg Q8H IVP 09/08/18 12:30 10/07/18 12:29 09/11/18 12:14 Mirtazapine (Remeron) 15 mg BEDTIME ORAL 09/08/18 21:00 09/30/18 20:59 09/10/18 20:24 Morphine Sulfate (Morphine Sulfate) 2 mg Q4H PRN IVP Severe Pain (Pain Scale 7-10) 09/08/18 11:30 09/13/18 11:29 09/11/18 12:14 Ondansetron HCl (Zofran) 4 mg Q6H PRN IVP Nausea & Vomiting 09/08/18 11:30 09/30/18 11:29 Patient Own Medication (Patient's Own Med) 1 ea BID@0800,1999 ORAL 09/08/18 20:00 10/01/18 19:59 09/10/18 08:22 Patient Own Medication (Patient's Own Med) 1 ea BID@0800,1999 ORAL 09/08/18 20:00 10/01/18 19:59 09/11/18 08:00 Patient Own Medication (Patient's Own Med) 1 ea DAILY@0800 ORAL 09/09/18 08:00 10/02/18 07:59 09/11/18 08:00 Tamsulosin HCl (Flomax) 0.4 mg BEDTIME ORAL 09/08/18 21:00 09/30/18 20:59 09/10/18 20:24 Valacyclovir HCl (Valtrex) 1,000 mg QHS ORAL 09/08/18 21:00 10/01/18 20:59 09/10/18 20:24 Vancomycin HCl (Firvanq) 125 mg FOUR TIMES A DAY ORAL 09/08/18 13:00 09/19/18 23:59 09/11/18 12:48 Oliverio Rm MD Sep 11, 2018 16:17
[2018-09-11] MEDS ORDERED: NS 500ML ONE (16:40)
--- NOTE | 2018-09-11 19:53 | Internal Med Progress Note ---
Subjective Date of Service: Sep 11, 2018 Physician Name Whitaker,Trey Attending Physician Carlos Barragan MD Current Medications Medications (Trade) Dose Ordered Sig/Roman Route PRN Reason Start Time Stop Time Status Last Admin Dose Admin Acetaminophen (Tylenol) 650 mg Q4H PRN ORAL fever (temp>100.5F) 09/08/18 11:45 09/30/18 07:39 Acetaminophen/ Hydrocodone Bitart ([place] 10/325) 1 tab Q4H PRN ORAL Moderate Pain (Pain Scale 4-6) 09/08/18 11:30 09/13/18 11:29 09/10/18 15:55 Al Hydroxide/Mg Hydroxide (Mylanta II) 30 ml Q6H PRN ORAL dyspepsia 09/08/18 11:30 10/05/18 11:29 Baclofen (Lioresal) 10 mg THREE TIMES A DAY ORAL 09/08/18 13:00 09/30/18 17:59 09/11/18 17:27 Dextrose (Dextrose 50%) 25 ml Q30M PRN IV Hypoglycemia 09/08/18 11:15 10/05/18 07:35 Dextrose (Dextrose 50%) 50 ml Q30M PRN IV hypoglycemia 09/08/18 11:15 10/05/18 07:44 Famotidine (Pepcid) 20 mg BID ORAL 09/08/18 18:00 10/07/18 17:59 09/11/18 17:27 Hydrocortisone (Hydrocortisone) 1 applic Q6H PRN TOPIC Itching 09/08/18 11:30 10/06/18 11:29 Loperamide HCl (Imodium) 2 mg QIDPRN PRN ORAL Diarrhea 09/08/18 11:30 10/08/18 11:29 09/09/18 11:37 Metoclopramide HCl (Reglan) 10 mg Q8H IVP 09/08/18 12:30 10/07/18 12:29 09/11/18 12:14 Mirtazapine (Remeron) 15 mg BEDTIME ORAL 09/08/18 21:00 09/30/18 20:59 09/10/18 20:24 Morphine Sulfate (Morphine Sulfate) 2 mg Q4H PRN IVP Severe Pain (Pain Scale 7-10) 09/08/18 11:30 09/13/18 11:29 09/11/18 18:31 Ondansetron HCl (Zofran) 4 mg Q6H PRN IVP Nausea & Vomiting 09/08/18 11:30 09/30/18 11:29 Patient Own Medication (Patient's Own Med) 1 ea BID@08,1999 ORAL 09/08/18 20:00 10/01/18 19:59 09/10/18 08:22 Patient Own Medication (Patient's Own Med) 1 ea BID@ ORAL 09/08/18 20:00 10/01/18 19:59 09/11/18 08:00 Patient Own Medication (Patient's Own Med) 1 ea DAILY@08 ORAL 09/09/18 08:00 10/02/18 07:59 09/11/18 08:00 Tamsulosin HCl (Flomax) 0.4 mg BEDTIME ORAL 09/08/18 21:00 09/30/18 20:59 09/10/18 20:24 Valacyclovir HCl (Valtrex) 1,000 mg QHS ORAL 09/08/18 21:00 10/01/18 20:59 09/10/18 20:24 Vancomycin HCl (Firvanq) 125 mg FOUR TIMES A DAY ORAL 09/08/18 13:00 09/19/18 23:59 09/11/18 17:27 Allergies: Coded Allergies: CODEINE (Unverified Allergy, Unknown, 11/28/17) EMTRICITABINE (Verified Allergy, Unknown, anxiousness, 08/31/18) SULFAMETHOXAZOLE (Unverified Allergy, Unknown, 10/27/17) TENOFOVIR (Verified Allergy, Unknown, anxiousness, 08/31/18) TRIMETHOPRIM (Unverified Allergy, Unknown, 10/27/17) ROS Limited/Unobtainable: No Constitutional: Reports: no symptoms HEENT: Reports: no symptoms Cardiovascular: Reports: no symptoms Respiratory: Reports: no symptoms Gastrointestinal/Abdominal: Reports: no symptoms Genitourinary: Reports: no symptoms 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: Reports: no symptoms Subjective 68 YO M admitted with flank pain. Now UTI and pyelonephritis. Also C. Diff. Cover for Int med-DR Barragan. Objective Last Vital Signs Date Time Temp Pulse Resp B/P (MAP) Pulse Ox O2 Delivery O2 Flow Rate FiO2 09/11/18 16:00 99.0 108 20 130/80 (97) 95 09/11/18 09:00 Room Air 09/10/18 08:10 21 09/08/18 16:00 2.0 Laboratory Tests Test 09/11/18 06:00 White Blood Count 7.9 K/UL (4.8-10.8) Red Blood Count 3.75 M/UL (4.70-6.10) L Hemoglobin 12.7 G/DL (14.2-18.0) L Hematocrit 36.7 % (42.0-52.0) L Mean Corpuscular Volume 98 FL (80-99) Mean Corpuscular Hemoglobin 33.9 PG (27.0-31.0) H Mean Corpuscular Hemoglobin Concent 34.7 G/DL (32.0-36.0) Red Cell Distribution Width 12.3 % (11.6-14.8) Platelet Count 179 K/UL (150-450) Mean Platelet Volume 8.7 FL (6.5-10.1) Neutrophils (%) (Auto) 58.0 % (45.0-75.0) Lymphocytes (%) (Auto) 29.7 % (20.0-45.0) Monocytes (%) (Auto) 9.6 % (1.0-10.0) Eosinophils (%) (Auto) 2.0 % (0.0-3.0) Basophils (%) (Auto) 0.6 % (0.0-2.0) Sodium Level 139 MMOL/L (136-145) Potassium Level 3.9 MMOL/L (3.5-5.1) Chloride Level 108 MMOL/L (98-107) H Carbon Dioxide Level 24 MMOL/L (21-32) Anion Gap 7 mmol/L (5-15) Blood Urea Nitrogen 14 mg/dL (7-18) Creatinine 1.0 MG/DL (0.55-1.30) Estimat Glomerular Filtration Rate > 60 mL/min (>60) Glucose Level 98 MG/DL (74-106) Calcium Level 8.6 MG/DL (8.5-10.1) Magnesium Level 1.9 MG/DL (1.8-2.4) Intake and Output 09/10/18 09/11/18 19:00 07:00 Intake Total 1240 ml Balance 1240 ml Intake Oral 640 ml Other 600 ml # Voids 4 # Bowel Movements 4 Objective PHYSICAL EXAMINATION: GENERAL: The patient awake, responsive, in no acute distress. HEAD AND NECK: Pupils equal and reactive to light. Extraocular movements intact. Right eye has ptosis. Neck was supple. No JVD. LUNGS: Good air entry. No wheezing or rales. HEART: S1, S2. Regular rate and rhythm. No murmur or gallops. ABDOMEN: Soft, nondistended, nontender. Positive bowel sounds. Left flank tenderness on deep palpation. No rebound tenderness. No fluid shift. EXTREMITIES: No cyanosis, clubbing, or edema. NEUROLOGIC: Cranial nerves II to XII grossly intact. Motor is 5/5 in all extremities. RECTAL: Refused and deferred. GENITOURINARY: Refused and deferred. PSYCHIATRIC: Mood and affect is intact. Assessment/Plan Assessment/Plan ASSESSMENT: 1. Left flank pain-pyelonephritis acute UTI-proteus mirabilis 2. Acute kidney injury with ATN, most likely secondary to the prerenal azotemia with dehydration. 3. HIV. 4. Rectal CA. 5. Hypertension. 6. Major depression. 7. Anxiety. 8. History of CVA in in 2004. 9. Hypotension-resolved with fluid bolus 10. Clostridium dificile diarrhea PLAN: 1. Admit the patient to medical floor. 2. We will follow up with the ID consultation, Dr. Cordero. 3. D/C Rocephin per ID 4. Follow up with cultures. 5. Continue home medication. 6. Discussed with the patient with regard to plan of care. 7. Code status is Full Code. 8. DVT prophylaxis. Heparin subcutaneous. 9. I advised the patient to become more mobilized and ambulatory with the nurse mostly and we will monitor laboratory as well as culture. 10. Oral vanco for C. Diff Trey Whitaker MD Sep 11, 2018 19:53
[2018-09-11] MEDS: Tamsulosin 0.4mg cap ORAL SCH (21:50)
[2018-09-11] MEDS: valACYclovir HCL 500mg tab ORAL SCH (21:50)
[2018-09-12] MEDS: Morphine Sulfate 2mg/ml Inj(IV/IM USE ONLY) IVP PRN ×3 (02:53→13:37)
[2018-09-12 04:00] VITALS: BP 115/61
[2018-09-12] MEDS: Metoclopramide 10mg/2ml Inj IVP SCH ×2 (04:46→12:41)
[2018-09-12 07:18] LABS: BASOPHILS % (AUTO) 0.8 % (0.0-2.0); EOSINOPHILS % (AUTO) 1.8 % (0.0-3.0); HEMATOCRIT 37.6 % (42.0-52.0); HEMOGLOBIN 12.9 G/DL (14.2-18.0); LYMPHOCYTES % (AUTO) 33.1 % (20.0-45.0); MEAN CORPUSCULAR VOLUME 97 FL (80-99); MONOCYTES % (AUTO) 9.1 % (1.0-10.0); NEUTROPHILS % (AUTO) 55.2 % (45.0-75.0); PLATELET COUNT 210 K/UL (150-450); RED BLOOD COUNT 3.88 M/UL (4.70-6.10); RED CELL DISTRIBUTION WIDTH 12.4 % (11.6-14.8); WHITE BLOOD COUNT 9.2 K/UL (4.8-10.8)
[2018-09-12 07:37] LABS: ANION GAP 11 mmol/L (5-15); BLOOD UREA NITROGEN 19 mg/dL (7-18); CALCIUM 9.1 MG/DL (8.5-10.1); CARBON DIOXIDE 23 MMOL/L (21-32); CHLORIDE 107 MMOL/L (98-107); CREATININE 1.1 MG/DL (0.55-1.30); SODIUM 141 MMOL/L (136-145)
[2018-09-12 08:00] VITALS: BP 111/70
[2018-09-12] MEDS: PREZISTA 800 MG ORAL SCH (08:00)
[2018-09-12] MEDS: INTELENCE 200 MG ORAL SCH (10:29)
--- NOTE | 2018-09-12 10:32 | Diagnostic Imaging Report ---
APPROVED REPORT CPT Code: 39321 Present Symptoms Comments: BILATERAL LEGS PAIN. Technically difficult study due to BLE contracture of hip and knee. BILATERAL: Imaging reveals a patent deep venous system bilaterally. There is no evidence of thrombus within the femoral, popliteal or tibial segments. The greater saphenous veins are also within normal limits. Doppler indicates normal spontaneous flow within these segments.
[2018-09-12] MEDS: Vancomycin oral 125mg/2.5ml ORAL SCH ×3 (10:43→19:32)
--- NOTE | 2018-09-12 11:11 | GI Progress Note ---
Assessment/Plan Problems: (1) History of rectal cancer ICD Codes: Z85.048 - Personal history of other malignant neoplasm of rectum, rectosigmoid junction, and anus SNOMED: 715942731 (2) Severe protein-calorie malnutrition ICD Codes: E43 - Unspecified severe protein-calorie malnutrition SNOMED: 116316287 (3) Electrolyte imbalance ICD Codes: E87.8 - Other disorders of electrolyte and fluid balance, not elsewhere classified SNOMED: 694318773 (4) Diarrhea ICD Codes: R19.7 - Diarrhea, unspecified SNOMED: 40220072 (5) Dehydration ICD Codes: E86.0 - Dehydration SNOMED: 50517906 (6) Gastroenteritis ICD Codes: K52.9 - Noninfective gastroenteritis and colitis, unspecified SNOMED: 51407241 Status: progressing Status Narrative Discussed with Dr. Germain. Assessment/Plan Status post colonoscopy SUMMARY OF FINDINGS: 1. Focal proctitis suspicious for C. diff versus ulcerative colitis, status post biopsy. 2. Status post biopsy of the right and left colon to evaluate microscopic colitis. C. difficile positive, diarrhea has improved RECOMMENDATIONS: Follow up biopsy results and treat accordingly. Antibiotics per infectious disease DC PPI, add H2B PRN transfusions Advance diet PT evaluation Follow labs The patient was seen and examined at bedside and all new and available data was reviewed in the patients chart. I agree with the above findings, impression and plan. (Patient seen earlier today. Signature stamp does not reflect patient encounter time.). - Dejan Germain MD Subjective Subjective Diarrhea improved Objective Last 24 Hour Vital Signs Date Time Temp Pulse Resp B/P (MAP) Pulse Ox O2 Delivery O2 Flow Rate FiO2 09/12/18 08:00 97.0 111 18 111/70 (84) 94 09/12/18 04:00 98.0 105 18 115/61 (79) 94 09/12/18 03:23 97.9 09/11/18 23:54 97.9 108 18 111/68 (82) 93 09/11/18 21:00 Room Air 09/11/18 20:00 97.7 105 18 136/98 (111) 95 09/11/18 20:00 97.7 105 18 136/98 (111) 95 09/11/18 16:00 99.0 108 20 130/80 (97) 95 09/11/18 12:00 97.6 100 18 122/80 (94) 94 Intake and Output 09/11/18 09/12/18 18:59 06:59 Intake Total 820 ml Balance 820 ml Intake Oral 820 ml # Voids 5 Laboratory Tests Test 09/12/18 06:00 White Blood Count 9.2 K/UL (4.8-10.8) Red Blood Count 3.88 M/UL (4.70-6.10) L Hemoglobin 12.9 G/DL (14.2-18.0) L Hematocrit 37.6 % (42.0-52.0) L Mean Corpuscular Volume 97 FL (80-99) Mean Corpuscular Hemoglobin 33.3 PG (27.0-31.0) H Mean Corpuscular Hemoglobin Concent 34.4 G/DL (32.0-36.0) Red Cell Distribution Width 12.4 % (11.6-14.8) Platelet Count 210 K/UL (150-450) Mean Platelet Volume 8.2 FL (6.5-10.1) Neutrophils (%) (Auto) 55.2 % (45.0-75.0) Lymphocytes (%) (Auto) 33.1 % (20.0-45.0) Monocytes (%) (Auto) 9.1 % (1.0-10.0) Eosinophils (%) (Auto) 1.8 % (0.0-3.0) Basophils (%) (Auto) 0.8 % (0.0-2.0) Sodium Level 141 MMOL/L (136-145) Potassium Level 4.0 MMOL/L (3.5-5.1) Chloride Level 107 MMOL/L (98-107) Carbon Dioxide Level 23 MMOL/L (21-32) Anion Gap 11 mmol/L (5-15) Blood Urea Nitrogen 19 mg/dL (7-18) H Creatinine 1.1 MG/DL (0.55-1.30) Estimat Glomerular Filtration Rate > 60 mL/min (>60) Glucose Level 92 MG/DL (74-106) Calcium Level 9.1 MG/DL (8.5-10.1) Height (Feet): 5 Height (Inches): 5.00 Weight (Pounds): 0 General Appearance: WD/WN, no apparent distress, alert Cardiovascular: normal rate Respiratory/Chest: normal breath sounds, no respiratory distress Abdominal Exam: normal bowel sounds, non tender, soft Extremities: normal range of motion, non-tender Jasen Brink NP Sep 12, 2018 11:11
[2018-09-12 12:00] VITALS: BP 140/91
--- NOTE | 2018-09-12 14:29 | Infectious Diseases Prog Note ---
Assessment/Plan Assessment/Plan Assessment: Hypotension (resolved w IVFs)- in the setting of diarrhea UTI (frequency, dysuria), s/p Rx -u/a wbc 10-15, shirley neg, leuk +3; ucx >100K PROTEUS MIRABILIS ( I Levo; R Amp, bactrim, Cipro, Nitro; S Ceftriaxone) Afebrile Leukocytosis; SP Diarrhea- 2ry to Cdif colitis; improving -Cdiff toxin a/b + -3/ SP Colonoscopy: proctitis -stool cx: normal thomas -Giardia ag, cryptosporidium neg HIV- on ARV (per pt VL UD) -09/2018 182 (10.1%) -11/2017 CD4 323 hx of rectal CA CVA 2004 HTN Plan: -Continue PO Vancomycin #/ for Cdiff colitis -09/07 SP Flagyl #2 -09/06 SP Ceftriaxone #7 -Holding Atovaquone as interaction with reglan on valtrex -Contiue ARV (Genvoya, prezista, intelence)- if one medicine is missing, please hold all of them until all medicines are available -Monitor CBC/CMP, temperatures Subjective Allergies: Coded Allergies: CODEINE (Unverified Allergy, Unknown, 11/28/17) EMTRICITABINE (Verified Allergy, Unknown, anxiousness, 08/31/18) SULFAMETHOXAZOLE (Unverified Allergy, Unknown, 10/27/17) TENOFOVIR (Verified Allergy, Unknown, anxiousness, 08/31/18) TRIMETHOPRIM (Unverified Allergy, Unknown, 10/27/17) Subjective afebrile no leukocytosis diarrhea improving Objective Vital Signs Last 24 Hour Vital Signs Date Time Temp Pulse Resp B/P (MAP) Pulse Ox O2 Delivery O2 Flow Rate FiO2 09/12/18 12:00 98.4 98 20 140/91 (107) 95 09/12/18 09:00 Room Air 09/12/18 08:00 97.0 111 18 111/70 (84) 94 09/12/18 04:00 98.0 105 18 115/61 (79) 94 09/12/18 03:23 97.9 09/11/18 23:54 97.9 108 18 111/68 (82) 93 09/11/18 21:00 Room Air 09/11/18 20:00 97.7 105 18 136/98 (111) 95 09/11/18 20:00 97.7 105 18 136/98 (111) 95 09/11/18 16:00 99.0 108 20 130/80 (97) 95 Height (Feet): 5 Height (Inches): 5.00 Weight (Pounds): 0 Objective GENERAL: The patient awake, responsive, in no acute distress. HEAD AND NECK: Pupils equal and reactive to light. Extraocular movements intact. Right eye has ptosis. Neck was supple. No JVD. LUNGS: Good air entry. No wheezing or rales. HEART: S1, S2. Regular rate and rhythm. No murmur or gallops. ABDOMEN: Soft, nondistended, nontender. Positive bowel sounds. Left flank tenderness on deep palpation. No rebound tenderness. No fluid shift. EXTREMITIES: No cyanosis, clubbing, or edema. NEUROLOGIC: Cranial nerves II to XII grossly intact. Motor is 5/5 in all extremities. PSYCHIATRIC: Mood and affect is intact. Laboratory Tests Test 09/12/18 06:00 White Blood Count 9.2 K/UL (4.8-10.8) Red Blood Count 3.88 M/UL (4.70-6.10) L Hemoglobin 12.9 G/DL (14.2-18.0) L Hematocrit 37.6 % (42.0-52.0) L Mean Corpuscular Volume 97 FL (80-99) Mean Corpuscular Hemoglobin 33.3 PG (27.0-31.0) H Mean Corpuscular Hemoglobin Concent 34.4 G/DL (32.0-36.0) Red Cell Distribution Width 12.4 % (11.6-14.8) Platelet Count 210 K/UL (150-450) Mean Platelet Volume 8.2 FL (6.5-10.1) Neutrophils (%) (Auto) 55.2 % (45.0-75.0) Lymphocytes (%) (Auto) 33.1 % (20.0-45.0) Monocytes (%) (Auto) 9.1 % (1.0-10.0) Eosinophils (%) (Auto) 1.8 % (0.0-3.0) Basophils (%) (Auto) 0.8 % (0.0-2.0) Sodium Level 141 MMOL/L (136-145) Potassium Level 4.0 MMOL/L (3.5-5.1) Chloride Level 107 MMOL/L (98-107) Carbon Dioxide Level 23 MMOL/L (21-32) Anion Gap 11 mmol/L (5-15) Blood Urea Nitrogen 19 mg/dL (7-18) H Creatinine 1.1 MG/DL (0.55-1.30) Estimat Glomerular Filtration Rate > 60 mL/min (>60) Glucose Level 92 MG/DL (74-106) Calcium Level 9.1 MG/DL (8.5-10.1) Current Medications Medications (Trade) Dose Ordered Sig/Roman Route PRN Reason Start Time Stop Time Status Last Admin Dose Admin Acetaminophen (Tylenol) 650 mg Q4H PRN ORAL fever (temp>100.5F) 09/08/18 11:45 09/30/18 07:39 Acetaminophen/ Hydrocodone Bitart ([place] 10/325) 1 tab Q4H PRN ORAL Moderate Pain (Pain Scale 4-6) 09/08/18 11:30 09/13/18 11:29 09/10/18 15:55 Al Hydroxide/Mg Hydroxide (Mylanta II) 30 ml Q6H PRN ORAL dyspepsia 09/08/18 11:30 10/05/18 11:29 Baclofen (Lioresal) 10 mg THREE TIMES A DAY ORAL 09/08/18 13:00 09/30/18 17:59 09/12/18 13:17 Dextrose (Dextrose 50%) 25 ml Q30M PRN IV Hypoglycemia 09/08/18 11:15 10/05/18 07:35 Dextrose (Dextrose 50%) 50 ml Q30M PRN IV hypoglycemia 09/08/18 11:15 10/05/18 07:44 Famotidine (Pepcid) 20 mg BID ORAL 09/08/18 18:00 10/07/18 17:59 09/12/18 08:45 Hydrocortisone (Hydrocortisone) 1 applic Q6H PRN TOPIC Itching 09/08/18 11:30 10/06/18 11:29 Loperamide HCl (Imodium) 2 mg QIDPRN PRN ORAL Diarrhea 09/08/18 11:30 10/08/18 11:29 09/09/18 11:37 Metoclopramide HCl (Reglan) 10 mg Q8H IVP 09/08/18 12:30 10/07/18 12:29 09/12/18 12:41 Mirtazapine (Remeron) 15 mg BEDTIME ORAL 09/08/18 21:00 09/30/18 20:59 09/11/18 21:49 Morphine Sulfate (Morphine Sulfate) 2 mg Q4H PRN IVP Severe Pain (Pain Scale 7-10) 09/08/18 11:30 09/13/18 11:29 09/12/18 13:37 Ondansetron HCl (Zofran) 4 mg Q6H PRN IVP Nausea & Vomiting 09/08/18 11:30 09/30/18 11:29 Patient Own Medication (Patient's Own Med) 1 ea BID@0800,1999 ORAL 09/08/18 20:00 10/01/18 19:59 09/10/18 08:22 Patient Own Medication (Patient's Own Med) 1 ea BID@0800 ORAL 09/08/18 20:00 10/01/18 19:59 09/12/18 10:29 Patient Own Medication (Patient's Own Med) 1 ea DAILY@0800 ORAL 09/09/18 08:00 10/02/18 07:59 09/12/18 10:29 Tamsulosin HCl (Flomax) 0.4 mg BEDTIME ORAL 09/08/18 21:00 09/30/18 20:59 09/11/18 21:50 Valacyclovir HCl (Valtrex) 1,000 mg QHS ORAL 09/08/18 21:00 10/01/18 20:59 09/11/18 21:50 Vancomycin HCl (Firvanq) 125 mg FOUR TIMES A DAY ORAL 09/08/18 13:00 09/19/18 23:59 09/12/18 10:43 Miranda Cordero M.D. Sep 12, 2018 14:29
[2018-09-12] MEDS ORDERED: VANCOMYCIN250 MG/5 M ORAL (15:51)
--- NOTE | 2018-09-12 15:52 | Pulmonology Progress Note ---
Assessment/Plan Problems: (1) Sepsis (2) C. difficile colitis (3) HIV (human immunodeficiency virus infection) (4) ATN (acute tubular necrosis) (5) UTI (urinary tract infection) (6) Degenerative disc disease (7) Severe protein-calorie malnutrition Assessment/Plan eating betterimproving VS better, renal function better check electrolytes check cultures pyruvate for dysuria pt doens't want to go to alf on po vancomycin Subjective ROS Limited/Unobtainable: No Constitutional: Reports: no symptoms HEENT: Repors: no symptoms Respiratory: Reports: no symptoms Allergies: Coded Allergies: CODEINE (Unverified Allergy, Unknown, 11/28/17) EMTRICITABINE (Verified Allergy, Unknown, anxiousness, 08/31/18) SULFAMETHOXAZOLE (Unverified Allergy, Unknown, 10/27/17) TENOFOVIR (Verified Allergy, Unknown, anxiousness, 08/31/18) TRIMETHOPRIM (Unverified Allergy, Unknown, 10/27/17) Objective Last 24 Hour Vital Signs Date Time Temp Pulse Resp B/P (MAP) Pulse Ox O2 Delivery O2 Flow Rate FiO2 09/12/18 12:00 98.4 98 20 140/91 (107) 95 09/12/18 09:00 Room Air 09/12/18 08:00 97.0 111 18 111/70 (84) 94 09/12/18 04:00 98.0 105 18 115/61 (79) 94 09/12/18 03:23 97.9 09/11/18 23:54 97.9 108 18 111/68 (82) 93 09/11/18 21:00 Room Air 09/11/18 20:00 97.7 105 18 136/98 (111) 95 09/11/18 20:00 97.7 105 18 136/98 (111) 95 09/11/18 16:00 99.0 108 20 130/80 (97) 95 Intake and Output 09/11/18 09/12/18 19:00 07:00 Intake Total 820 ml Balance 820 ml Intake Oral 820 ml # Voids 5 Objective General Appearance: WD/WN HEENT: normocephalic, atraumatic Respiratory/Chest: chest wall non-tender, lungs clear Cardiovascular: normal peripheral pulses, normal rate Abdomen: normal bowel sounds, soft, non tender Extremities: no cyanosis Skin: no ulcers HEENT: normocephalic, atraumatic Respiratory/Chest: chest wall non-tender, lungs clear Cardiovascular: normal peripheral pulses, normal rate Abdomen: normal bowel sounds, soft, non tender Genitourinary: normal external genitalia 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: spike machine heater II-XII grossly normal Laboratory Tests 09/12/18 06:00: White Blood Count 9.2, Red Blood Count 3.88L, Hemoglobin 12.9L, Hematocrit 37.6L , Mean Corpuscular Volume 97, Mean Corpuscular Hemoglobin 33.3H, Mean Corpuscular Hemoglobin Concent 34.4, Red Cell Distribution Width 12.4, Platelet Count 210, Mean Platelet Volume 8.2, Neutrophils (%) (Auto) 55.2, Lymphocytes (% ) (Auto) 33.1, Monocytes (%) (Auto) 9.1, Eosinophils (%) (Auto) 1.8, Basophils ( %) (Auto) 0.8, Sodium Level 141, Potassium Level 4.0, Chloride Level 107, Carbon Dioxide Level 23, Anion Gap 11, Blood Urea Nitrogen 19H, Creatinine 1.1, Estimat Glomerular Filtration Rate > 60, Glucose Level 92, Calcium Level 9.1 Current Medications Medications (Trade) Dose Ordered Sig/Roman Route PRN Reason Start Time Stop Time Status Last Admin Dose Admin Acetaminophen (Tylenol) 650 mg Q4H PRN ORAL fever (temp>100.5F) 09/08/18 11:45 09/30/18 07:39 Acetaminophen/ Hydrocodone Bitart ([place] 10/325) 1 tab Q4H PRN ORAL Moderate Pain (Pain Scale 4-6) 09/08/18 11:30 09/13/18 11:29 09/10/18 15:55 Al Hydroxide/Mg Hydroxide (Mylanta II) 30 ml Q6H PRN ORAL dyspepsia 09/08/18 11:30 10/05/18 11:29 Baclofen (Lioresal) 10 mg THREE TIMES A DAY ORAL 09/08/18 13:00 09/30/18 17:59 09/12/18 13:17 Dextrose (Dextrose 50%) 25 ml Q30M PRN IV Hypoglycemia 09/08/18 11:15 10/05/18 07:35 Dextrose (Dextrose 50%) 50 ml Q30M PRN IV hypoglycemia 09/08/18 11:15 10/05/18 07:44 Famotidine (Pepcid) 20 mg BID ORAL 09/08/18 18:00 10/07/18 17:59 09/12/18 08:45 Hydrocortisone (Hydrocortisone) 1 applic Q6H PRN TOPIC Itching 09/08/18 11:30 10/06/18 11:29 Loperamide HCl (Imodium) 2 mg QIDPRN PRN ORAL Diarrhea 09/08/18 11:30 10/08/18 11:29 09/09/18 11:37 Metoclopramide HCl (Reglan) 10 mg Q8H IVP 09/08/18 12:30 10/07/18 12:29 09/12/18 12:41 Mirtazapine (Remeron) 15 mg BEDTIME ORAL 09/08/18 21:00 09/30/18 20:59 09/11/18 21:49 Morphine Sulfate (Morphine Sulfate) 2 mg Q4H PRN IVP Severe Pain (Pain Scale 7-10) 09/08/18 11:30 09/13/18 11:29 09/12/18 13:37 Ondansetron HCl (Zofran) 4 mg Q6H PRN IVP Nausea & Vomiting 09/08/18 11:30 09/30/18 11:29 Patient Own Medication (Patient's Own Med) 1 ea BID@0800,1999 ORAL 09/08/18 20:00 10/01/18 19:59 09/10/18 08:22 Patient Own Medication (Patient's Own Med) 1 ea BID@0800 ORAL 09/08/18 20:00 10/01/18 19:59 09/12/18 10:29 Patient Own Medication (Patient's Own Med) 1 ea DAILY@0800 ORAL 09/09/18 08:00 10/02/18 07:59 09/12/18 10:29 Tamsulosin HCl (Flomax) 0.4 mg BEDTIME ORAL 09/08/18 21:00 09/30/18 20:59 09/11/18 21:50 Valacyclovir HCl (Valtrex) 1,000 mg QHS ORAL 09/08/18 21:00 10/01/18 20:59 09/11/18 21:50 Vancomycin HCl (Firvanq) 125 mg FOUR TIMES A DAY ORAL 09/08/18 13:00 09/19/18 23:59 09/12/18 15:05 Oliverio Rm MD Sep 12, 2018 15:52
--- NOTE | 2018-09-12 16:41 | Internal Med Progress Note ---
Subjective Date of Service: Sep 12, 2018 Physician Name Whitaker,Trey Attending Physician Carlos Barragan MD Current Medications Medications (Trade) Dose Ordered Sig/Roman Route PRN Reason Start Time Stop Time Status Last Admin Dose Admin Acetaminophen (Tylenol) 650 mg Q4H PRN ORAL fever (temp>100.5F) 09/08/18 11:45 09/30/18 07:39 Acetaminophen/ Hydrocodone Bitart ([place] 10/325) 1 tab Q4H PRN ORAL Moderate Pain (Pain Scale 4-6) 09/08/18 11:30 09/13/18 11:29 09/10/18 15:55 Al Hydroxide/Mg Hydroxide (Mylanta II) 30 ml Q6H PRN ORAL dyspepsia 09/08/18 11:30 10/05/18 11:29 Baclofen (Lioresal) 10 mg THREE TIMES A DAY ORAL 09/08/18 13:00 09/30/18 17:59 09/12/18 13:17 Dextrose (Dextrose 50%) 25 ml Q30M PRN IV Hypoglycemia 09/08/18 11:15 10/05/18 07:35 Dextrose (Dextrose 50%) 50 ml Q30M PRN IV hypoglycemia 09/08/18 11:15 10/05/18 07:44 Famotidine (Pepcid) 20 mg BID ORAL 09/08/18 18:00 10/07/18 17:59 09/12/18 08:45 Hydrocortisone (Hydrocortisone) 1 applic Q6H PRN TOPIC Itching 09/08/18 11:30 10/06/18 11:29 Loperamide HCl (Imodium) 2 mg QIDPRN PRN ORAL Diarrhea 09/08/18 11:30 10/08/18 11:29 09/09/18 11:37 Metoclopramide HCl (Reglan) 10 mg Q8H IVP 09/08/18 12:30 10/07/18 12:29 09/12/18 12:41 Mirtazapine (Remeron) 15 mg BEDTIME ORAL 09/08/18 21:00 09/30/18 20:59 09/11/18 21:49 Morphine Sulfate (Morphine Sulfate) 2 mg Q4H PRN IVP Severe Pain (Pain Scale 7-10) 09/08/18 11:30 09/13/18 11:29 09/12/18 13:37 Ondansetron HCl (Zofran) 4 mg Q6H PRN IVP Nausea & Vomiting 09/08/18 11:30 09/30/18 11:29 Patient Own Medication (Patient's Own Med) 1 ea BID@0800,1999 ORAL 09/08/18 20:00 10/01/18 19:59 09/10/18 08:22 Patient Own Medication (Patient's Own Med) 1 ea BID@08 ORAL 09/08/18 20:00 10/01/18 19:59 09/12/18 10:29 Patient Own Medication (Patient's Own Med) 1 ea DAILY@08 ORAL 09/09/18 08:00 10/02/18 07:59 09/12/18 10:29 Tamsulosin HCl (Flomax) 0.4 mg BEDTIME ORAL 09/08/18 21:00 09/30/18 20:59 09/11/18 21:50 Valacyclovir HCl (Valtrex) 1,000 mg QHS ORAL 09/08/18 21:00 10/01/18 20:59 09/11/18 21:50 Vancomycin HCl (Firvanq) 125 mg FOUR TIMES A DAY ORAL 09/08/18 13:00 09/19/18 23:59 09/12/18 15:05 Allergies: Coded Allergies: CODEINE (Unverified Allergy, Unknown, 11/28/17) EMTRICITABINE (Verified Allergy, Unknown, anxiousness, 08/31/18) SULFAMETHOXAZOLE (Unverified Allergy, Unknown, 10/27/17) TENOFOVIR (Verified Allergy, Unknown, anxiousness, 08/31/18) TRIMETHOPRIM (Unverified Allergy, Unknown, 10/27/17) ROS Limited/Unobtainable: No Constitutional: Reports: no symptoms HEENT: Reports: no symptoms Cardiovascular: Reports: no symptoms Respiratory: Reports: no symptoms Gastrointestinal/Abdominal: Reports: no symptoms Genitourinary: Reports: no symptoms 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: Reports: no symptoms Subjective 68 YO M admitted with flank pain. Now UTI and pyelonephritis. Also C. Diff. Cover for Int med-DR Barragan. Objective Last Vital Signs Date Time Temp Pulse Resp B/P (MAP) Pulse Ox O2 Delivery O2 Flow Rate FiO2 09/12/18 12:00 98.4 98 20 140/91 (107) 95 09/12/18 09:00 Room Air 09/10/18 08:10 21 09/08/18 16:00 2.0 Laboratory Tests Test 09/12/18 06:00 White Blood Count 9.2 K/UL (4.8-10.8) Red Blood Count 3.88 M/UL (4.70-6.10) L Hemoglobin 12.9 G/DL (14.2-18.0) L Hematocrit 37.6 % (42.0-52.0) L Mean Corpuscular Volume 97 FL (80-99) Mean Corpuscular Hemoglobin 33.3 PG (27.0-31.0) H Mean Corpuscular Hemoglobin Concent 34.4 G/DL (32.0-36.0) Red Cell Distribution Width 12.4 % (11.6-14.8) Platelet Count 210 K/UL (150-450) Mean Platelet Volume 8.2 FL (6.5-10.1) Neutrophils (%) (Auto) 55.2 % (45.0-75.0) Lymphocytes (%) (Auto) 33.1 % (20.0-45.0) Monocytes (%) (Auto) 9.1 % (1.0-10.0) Eosinophils (%) (Auto) 1.8 % (0.0-3.0) Basophils (%) (Auto) 0.8 % (0.0-2.0) Sodium Level 141 MMOL/L (136-145) Potassium Level 4.0 MMOL/L (3.5-5.1) Chloride Level 107 MMOL/L (98-107) Carbon Dioxide Level 23 MMOL/L (21-32) Anion Gap 11 mmol/L (5-15) Blood Urea Nitrogen 19 mg/dL (7-18) H Creatinine 1.1 MG/DL (0.55-1.30) Estimat Glomerular Filtration Rate > 60 mL/min (>60) Glucose Level 92 MG/DL (74-106) Calcium Level 9.1 MG/DL (8.5-10.1) Intake and Output 09/11/18 09/12/18 19:00 07:00 Intake Total 820 ml Balance 820 ml Intake Oral 820 ml # Voids 5 Objective PHYSICAL EXAMINATION: GENERAL: The patient awake, responsive, in no acute distress. HEAD AND NECK: Pupils equal and reactive to light. Extraocular movements intact. Right eye has ptosis. Neck was supple. No JVD. LUNGS: Good air entry. No wheezing or rales. HEART: S1, S2. Regular rate and rhythm. No murmur or gallops. ABDOMEN: Soft, nondistended, nontender. Positive bowel sounds. Left flank tenderness on deep palpation. No rebound tenderness. No fluid shift. EXTREMITIES: No cyanosis, clubbing, or edema. NEUROLOGIC: Cranial nerves II to XII grossly intact. Motor is 5/5 in all extremities. RECTAL: Refused and deferred. GENITOURINARY: Refused and deferred. PSYCHIATRIC: Mood and affect is intact. Assessment/Plan Assessment/Plan ASSESSMENT: 1. Left flank pain-pyelonephritis acute UTI-proteus mirabilis 2. Acute kidney injury with ATN, most likely secondary to the prerenal azotemia with dehydration. 3. HIV. 4. Rectal CA. 5. Hypertension. 6. Major depression. 7. Anxiety. 8. History of CVA in in 2004. 9. Hypotension-resolved with fluid bolus 10. Clostridium dificile diarrhea PLAN: 1. Admit the patient to medical floor. 2. We will follow up with the ID consultation, Dr. Cordero. 3. D/C Rocephin per ID 4. Follow up with cultures. 5. Continue home medication. 6. Discussed with the patient with regard to plan of care. 7. Code status is Full Code. 8. DVT prophylaxis. Heparin subcutaneous. 9. I advised the patient to become more mobilized and ambulatory with the nurse mostly and we will monitor laboratory as well as culture. 10. Oral vanco for C. Diff Trey Whitaker MD Sep 12, 2018 16:41
--- NOTE | 2018-09-13 12:26 | Discharge Summary ---
Discharge Summary Discharge Summary _ DATE OF ADMISSION: 08/31/2018 DATE OF DISCHARGE: 09/12/2018 DISCHARGED BY: Dr. Barragan REASON FOR ADMISSION: 68 years old male with past medical history significant for rectal cancer, CVA / TIA, HIV status , hypertension, major depression and anxiety , presented to the hospital complaining of left flank pain over the past several day. Patient reported having similar symptoms in the past. He reported increased urinary frequency and increased pain upon urination. From his HIV standpoint , he reported that his viral load was undetectable and CD4 counts were stable. Shortly after initial evaluation in emergency department , patient was admitted with diagnosis of left flank pain, possibly acute UTI, possible pyelonephritis. CONSULTANTS: pulmonary Dr. Rm ID specialist Dr. Yan GI specialist Dr. Germain [facility] COURSE: Patient admitted to medical surgical floor. GI, ID ,pulmonology/critical care consult were requested. Patient undergone on 09/06 colonoscopy with biopsy due to diarrhea and history of rectal cancer. It revealed focal proctitis, suspicious for C. difficile versus ulcerative colitis , status post biopsy. Patient also undergone biopsy of the right and left colon to evaluate for microscopic colitis. Pathology of rectum revealed focal proctitis , negative for cytomegalovirus and HCV. Left and right colon biopsy revealed benign colonic mucosa with no diagnostic abnormality. No evidence of granulomas, parasites , dysplasia or malignancy. Negative for microscopic colitis. Venous duplex bilateral lower extremity revealed no evidence of acute DVT. Chest x-ray demonstrated no acute cardiopulmonary pathology. Supplemental oxygen provided as needed to keep pulse oximetry above 92%. Pulmonary toilet was on standby as needed. Urine culture revealed Proteus , status post treatment with antibiotic. Stool for C. difficile was positive. Patient started on oral Vancomycin. Stool culture was negative. Giardia antigen was negative. Cryptosporidium negative. Stool for cyclospoa, and serology for Isospora and Microsporidia still pending. Supportive care provided. Imodium provided as needed. Patient was on antiretroviral therapy , which was resumed upon admission. Current CD4-182, while in November 2017 CD4 was 323. Viral load was undetectable as per patient. Atovaquone was hold due to interaction with Reglan , and patient allergic to Bactrim. Patient was on Valtrex . Follow up with outpatient HIV provider. Patient initially was on IV fluids. Renal parameters and electrolytes were closely monitored, nephrotoxins avoided, and electrolytes corrected as needed. Potassium and magnesium were replaced. Initial hypotension was likely due to dehydration secondary to diarrhea and improved. Dietary recommendation implemented in plan of care . Pain management was addressed. GI closely followed. PPI and H2 Sola discontinued. Per GI specialist, patient likely had gastroenteritis along with C. difficile infection. Hemoglobin and hematocrit were closely monitored to keep hemoglobin above 7. Diet was advanced as tolerated, diarrhea subsided, patient was working with physical therapist. 9 Patient was stable for discharge to assisted living for continuation of care . FINAL DIAGNOSES: Initial hypotension- resolved , likely in the setting of dehydration due to diarrhea UTI with Proteus, status post treatment Protein- calorie malnutrition Electrolyte imbalance C. difficile colitis with associated diarrhea HIV status -CD4 182 s/p colonoscopy 09/06 -->Acute proctitis Acute kidney injury with acute acute tubular necrosis , most likely due to prerenal azotemia due to dehydration Degenerative disc disease Major depression Anxiety History of CVA Gastroenteritis History of rectal cancer DISCHARGE MEDICATIONS: See Medication Reconciliation list. DISCHARGE INSTRUCTIONS: Patient was discharged to assisted living facility. Follow up with primary care provider in one week. Return to ED precautions discussed. Karla Mason NP Sep 13, 2018 12:26
== END 2018-09-12 19:50 | disposition home or self-care (01) | DRG 689 ==
LOC: EDBD 11:48 → EMR 12:18 → EDBEDREQ 14:51 → 4E 15:45 → EDBEDREQ 16:48 → 4E 21:36 → 2W 09-05 04:49 → 4E 09-08 10:58
PROC: 0DDG8ZX Extraction of Left Large Intestine, Via Natural or Artificial Opening Endoscopic, Diagnostic (ICD-10-PCS; principal; 2018-09-06 08:15)
PROC: 0DDF8ZX Extraction of Right Large Intestine, Via Natural or Artificial Opening Endoscopic, Diagnostic (ICD-10-PCS; principal; 2018-09-06 08:15)
DX: N39.0 Urinary tract infection, site not specified (principal); N17.0 Acute kidney failure with tubular necrosis; E43 Unspecified severe protein-calorie malnutrition; B20 Human immunodeficiency virus [HIV] disease; A04.72 Enterocolitis due to Clostridium difficile, not specified as recurrent; E86.0 Dehydration; I10 Essential (primary) hypertension; F41.9 Anxiety disorder, unspecified; F32.9 Major depressive disorder, single episode, unspecified; I95.9 Hypotension, unspecified; K62.89 Other specified diseases of anus and rectum; E83.42 Hypomagnesemia; E87.6 Hypokalemia; Z79.82 Long term (current) use of aspirin; B96.4 Proteus (mirabilis) (morganii) as the cause of diseases classified elsewhere; Z85.048 Personal history of other malignant neoplasm of rectum, rectosigmoid junction, and anus; Z86.73 Personal history of transient ischemic attack (TIA), and cerebral infarction without residual deficits
CPT/HCPCS: 36415; 71045; 80048; 80053; 80061; 81001; 81003; 82550; 82962; 83690; 83735; 84100; 84133; 84300; 84443; 84484; 84550; 85025; 85610; 85730; 86360; 86850; 86900; 86901; 86999; 87015; 87045; 87081; 87086; 87181; 87207; 87324; 87329; 89050; 93970; 94003; 94150; 94760; 96361; 96365; 96375; 97802; 99285; J2405; J2765; J8499

== ENCOUNTER 2018-09-13 16:15 | Inpatient (IN) | payer MEDICARE, MEDICAID ==
[~2018-09-13] VITALS: Ht 177.8 cm; Wt 70.0 kg
[~2018-09-13 16:15] MED LIST changes: +BACLOFEN10 MG ORAL; +ENDOCET 10-3251 EACH ORAL; +GABAPENTIN600 MG ORAL; +GENVOYA TABLET1 EACH PO; +OXYBUTYNIN5 MG/5 M1 PO; +VANCOMYCIN250 MG/5 M ORAL
[2018-09-13 16:29] VITALS: BP 119/74
[2018-09-13] MEDS ORDERED: Morphine Sulfate 4mg/ml Inj (IV USE ONLY) IVP ONE (16:30)
--- NOTE | 2018-09-13 16:30 | Emergency Room Report ---
History of Present Illness General Chief Complaint: Abdominal Pain Source: Patient, Medical Record Present Illness HPI Patient was dispositioned home recently presents back with complaints of continued abdominal cramping diarrhea Feels continued stiffness to his legs Denies any chest pain patient also reports continued nausea vomiting Denies any fevers or chills and eyes any dysuria frequency Patient reports that his viral load is undetectable CD4 count is low Denies any rash Allergies: Coded Allergies: CODEINE (Unverified Allergy, Unknown, 11/28/17) EMTRICITABINE (Verified Allergy, Unknown, anxiousness, 08/31/18) SULFAMETHOXAZOLE (Unverified Allergy, Unknown, 10/27/17) TENOFOVIR (Verified Allergy, Unknown, anxiousness, 08/31/18) TRIMETHOPRIM (Unverified Allergy, Unknown, 10/27/17) Patient History Past Medical History: see triage record Pertinent Family History: none Reviewed Nursing Documentation: PMH: Agreed; PSxH: Agreed Nursing Documentation-PMH Past Medical History: No History, Except For Hx Cardiac Problems: Yes - HIV/AIDS Hx Hypertension: Yes Hx Cancer: Yes - RECTAL Hx Gastrointestinal Problems: Yes - umbilical hernia Hx Neurological Problems: Yes Hx Cerebrovascular Accident: Yes - Stroke 10 years ago Hx Weakness: Yes Review of Systems All Other Systems: negative except mentioned in HPI Physical Exam Vital Signs Date Time Temp Pulse Resp B/P (MAP) Pulse Ox O2 Delivery O2 Flow Rate FiO2 09/13/18 16:17 98.1 102 16 98/61 95 Room Air Sp02 EP Interpretation: reviewed, normal General Appearance: no apparent distress Head: normocephalic, atraumatic Eyes: bilateral eye PERRL, bilateral eye EOMI ENT: dry mucus membranes Neck: supple Respiratory: lungs clear, no respiratory distress, no retraction, no accessory muscle use Cardiovascular #1: regular rate, rhythm Gastrointestinal: non tender, soft Musculoskeletal: other - Some contractures of the lower legs Neurologic: alert, oriented x3, responsive Skin: normal color, no rash Lymphatic: no adenopathy Medical Decision Making Diagnostic Impression: Primary Impression: Diarrhea Additional Impressions: Electrolyte imbalance Dehydration HIV (human immunodeficiency virus infection) ER Course With the history exam and presentation, multiple differentials considered, including but not limited to appendicitis, gastritis, cholecystitis, diverticulitis Patient has had fairly extensive recent hospitalization Patient had refused further nursing assistance at home And it appears the patient is not able to care for himself continues to have diarrhea discomfort Patient provided with further hydration pain medication and requires further inpatient placement Labs Test 09/13/18 16:55 09/14/18 05:20 09/15/18 06:09 White Blood Count 8.7 K/UL (4.8-10.8) 5.7 K/UL (4.8-10.8) Red Blood Count 3.80 M/UL (4.70-6.10) 3.46 M/UL (4.70-6.10) Hemoglobin 12.7 G/DL (14.2-18.0) 11.7 G/DL (14.2-18.0) Hematocrit 37.4 % (42.0-52.0) 33.9 % (42.0-52.0) Mean Corpuscular Volume 98 FL (80-99) 98 FL (80-99) Mean Corpuscular Hemoglobin 33.5 PG (27.0-31.0) 33.7 PG (27.0-31.0) Mean Corpuscular Hemoglobin Concent 34.0 G/DL (32.0-36.0) 34.4 G/DL (32.0-36.0) Red Cell Distribution Width 12.2 % (11.6-14.8) 12.5 % (11.6-14.8) Platelet Count 241 K/UL (150-450) 206 K/UL (150-450) Mean Platelet Volume 7.5 FL (6.5-10.1) 8.2 FL (6.5-10.1) Neutrophils (%) (Auto) 59.1 % (45.0-75.0) 51.4 % (45.0-75.0) Lymphocytes (%) (Auto) 28.6 % (20.0-45.0) 34.8 % (20.0-45.0) Monocytes (%) (Auto) 10.0 % (1.0-10.0) 10.6 % (1.0-10.0) Eosinophils (%) (Auto) 1.4 % (0.0-3.0) 2.5 % (0.0-3.0) Basophils (%) (Auto) 0.9 % (0.0-2.0) 0.8 % (0.0-2.0) Sodium Level 139 MMOL/L (136-145) 139 MMOL/L (136-145) Potassium Level 3.9 MMOL/L (3.5-5.1) 4.0 MMOL/L (3.5-5.1) Chloride Level 104 MMOL/L (98-107) 106 MMOL/L (98-107) Carbon Dioxide Level 23 MMOL/L (21-32) 24 MMOL/L (21-32) Anion Gap 12 mmol/L (5-15) 9 mmol/L (5-15) Blood Urea Nitrogen 29 mg/dL (7-18) 20 mg/dL (7-18) Creatinine 1.6 MG/DL (0.55-1.30) 1.2 MG/DL (0.55-1.30) Estimat Glomerular Filtration Rate 42.9 mL/min (>60) 59.9 mL/min (>60) Glucose Level 113 MG/DL (74-106) 90 MG/DL (74-106) Calcium Level 10.1 MG/DL (8.5-10.1) 8.9 MG/DL (8.5-10.1) Total Bilirubin 0.5 MG/DL (0.2-1.0) 0.4 MG/DL (0.2-1.0) Aspartate Amino Transf (AST/SGOT) 33 U/L (15-37) 28 U/L (15-37) Alanine Aminotransferase (ALT/SGPT) 50 U/L (12-78) 45 U/L (12-78) Alkaline Phosphatase 118 U/L (46-116) 105 U/L (46-116) Total Protein 7.6 G/DL (6.4-8.2) 6.8 G/DL (6.4-8.2) Albumin 3.2 G/DL (3.4-5.0) 2.8 G/DL (3.4-5.0) Globulin 4.4 g/dL 4.0 g/dL Albumin/Globulin Ratio 0.7 (1.0-2.7) 0.7 (1.0-2.7) Lipase 216 U/L (73-393) Triglycerides Level 98 MG/DL (30-150) Cholesterol Level 123 MG/DL (< 200) LDL Cholesterol 79 mg/dL (<100) HDL Cholesterol 30 MG/DL (40-60) Cholesterol/HDL Ratio 4.1 (3.3-4.4) Thyroid Stimulating Hormone (TSH) 0.722 uiU/mL (0.358-3.740) Rhythm Strip Diag. Results EP Interpretation: yes Rate: 80 Rhythm: NSR, no PVC's, no ectopy Last Vital Signs Date Time Temp Pulse Resp B/P (MAP) Pulse Ox O2 Delivery O2 Flow Rate FiO2 09/13/18 16:17 98.1 102 16 98/61 95 Room Air Status: improved Disposition: ADMITTED INPATIENT Condition: Serious Corey Owens DO Sep 13, 2018 16:30
--- NOTE | 2018-09-13 16:34 | NUR ---
ED Nurse Note: pt was brought in to ER by ambulance from [facility]. pt c/o diarrhea and burning sensation and pain on penis upon urination 03/13. per pt, pt was discharged from [facility] yesterday dx of C-diff and UTI. pt aao x4, talkative, skin dry and thin but no wound noted.
[2018-09-13 17:02] LABS: BASOPHILS % (AUTO) 0.9 % (0.0-2.0); EOSINOPHILS % (AUTO) 1.4 % (0.0-3.0); HEMATOCRIT 37.4 % (42.0-52.0); HEMOGLOBIN 12.7 G/DL (14.2-18.0); LYMPHOCYTES % (AUTO) 28.6 % (20.0-45.0); MEAN CORPUSCULAR VOLUME 98 FL (80-99); NEUTROPHILS % (AUTO) 59.1 % (45.0-75.0); PLATELET COUNT 241 K/UL (150-450); RED CELL DISTRIBUTION WIDTH 12.2 % (11.6-14.8); WHITE BLOOD COUNT 8.7 K/UL (4.8-10.8)
[2018-09-13] MEDS ORDERED: Nystatin Powder 100,000 units/gm 15gm TOPIC ONE (17:30)
[2018-09-13 17:51] LABS: ANION GAP 12 mmol/L (5-15); BLOOD UREA NITROGEN 29 mg/dL (7-18); CALCIUM 10.1 MG/DL (8.5-10.1); CARBON DIOXIDE 23 MMOL/L (21-32); CHLORIDE 104 MMOL/L (98-107); CREATININE 1.6 MG/DL (0.55-1.30); POTASSIUM 3.9 MMOL/L (3.5-5.1); SODIUM 139 MMOL/L (136-145)
[2018-09-13 17:55] LABS: ALANINE AMINOTRANSFERASE 50 U/L (12-78); ALBUMIN 3.2 G/DL (3.4-5.0); ALBUMIN/GLOBULIN RATIO 0.7 (1.0-2.7); ALKALINE PHOSPHATASE 118 U/L (46-116); ASPARTATE AMINO TRANSFERASE 33 U/L (15-37); BILIRUBIN,TOTAL 0.5 MG/DL (0.2-1.0)
[2018-09-13] MEDS ORDERED: Mylanta II UD 30ml ORAL PRN (18:00)
[2018-09-13] MEDS ORDERED: Zolpidem 5mg tab ORAL PRN (18:00)
[2018-09-13] MEDS ORDERED: Miralax 17gm pkt ORAL PRN (18:00)
[2018-09-13] MEDS ORDERED: Dextrose 50% 25ml Syringe IV PRN (18:00)
--- NOTE | 2018-09-13 18:30 | NUR ---
ED Nurse Note: US tech at bedside. pt is getting US.
--- NOTE | 2018-09-13 18:57 | NUR ---
ED Nurse Note: US done at bedside.
--- NOTE | 2018-09-13 19:10 | NUR ---
ED Nurse Note: Received Pt and report from day shift. Knowing Pt will adimt as soon. Will collect culture and prepare adimit soon.
--- NOTE | 2018-09-13 19:18 | NUR ---
HAND-OFF: Report given to CHARLEY Stallworth. pt willl be transferred to [facility]. will call [facility].
--- NOTE | 2018-09-13 19:31 | NUR ---
ED Nurse Note: Report given to CHARLEY Long. was requested to transfer pt to [facility] in 20 minutes.
--- NOTE | 2018-09-13 20:14 | NUR ---
ED Nurse Note: Pt admit to 4E room 409-2. Belongings and report given to CHARLEY Long. Pt wants to keep $11 with him.
[2018-09-13 20:15] VITALS: BP 124/78
--- NOTE | 2018-09-13 20:15 | NUR ---
NURSE NOTES: Pt received from CHARLEY Guerra from ED. Pt in stable condition. Iv patent. R AC 20g. Pt contracted prominently bilateral lower extremities. Optifoam applied between knees to protect skin. Bed in lowest position, locked, side rails x2 call light in reach. Will continue to monitor
[2018-09-13 21:15] VITALS: BP 105/56
[2018-09-13] MEDS ORDERED: Ondansetron ODT 8mg tab ORAL PRN (23:15)
[2018-09-13] MEDS ORDERED: LORazepam 1mg tab ORAL PRN (23:15)
[2018-09-13] MEDS: Morphine Sulfate 4mg/ml Inj (IV USE ONLY) IVP PRN (23:15)
[2018-09-14] VITALS: BP 124/71
[2018-09-14] MEDS: Morphine Sulfate 4mg/ml Inj (IV USE ONLY) IVP PRN (03:09)
[2018-09-14 04:00] VITALS: BP 133/72
[2018-09-14 06:48] LABS: BASOPHILS % (AUTO) 0.8 % (0.0-2.0); EOSINOPHILS % (AUTO) 2.5 % (0.0-3.0); HEMATOCRIT 33.9 % (42.0-52.0); HEMOGLOBIN 11.7 G/DL (14.2-18.0); LYMPHOCYTES % (AUTO) 34.8 % (20.0-45.0); MEAN CORPUSCULAR VOLUME 98 FL (80-99); MONOCYTES % (AUTO) 10.6 % (1.0-10.0); NEUTROPHILS % (AUTO) 51.4 % (45.0-75.0); PLATELET COUNT 206 K/UL (150-450); RED BLOOD COUNT 3.46 M/UL (4.70-6.10); RED CELL DISTRIBUTION WIDTH 12.5 % (11.6-14.8); WHITE BLOOD COUNT 5.7 K/UL (4.8-10.8)
[2018-09-14 07:25] LABS: ALANINE AMINOTRANSFERASE 45 U/L (12-78); ALBUMIN 2.8 G/DL (3.4-5.0); ALBUMIN/GLOBULIN RATIO 0.7 (1.0-2.7); ALKALINE PHOSPHATASE 105 U/L (46-116); ANION GAP 9 mmol/L (5-15); ASPARTATE AMINO TRANSFERASE 28 U/L (15-37); BILIRUBIN,TOTAL 0.4 MG/DL (0.2-1.0); BLOOD UREA NITROGEN 20 mg/dL (7-18); CALCIUM 8.9 MG/DL (8.5-10.1); CARBON DIOXIDE 24 MMOL/L (21-32); CHLORIDE 106 MMOL/L (98-107); CHOLESTEROL 123 MG/DL (< 200); CREATININE 1.2 MG/DL (0.55-1.30); HDL CHOLESTEROL 30 MG/DL (40-60); SODIUM 139 MMOL/L (136-145); TRIGLYCERIDES 98 MG/DL (30-150)
--- NOTE | 2018-09-14 07:35 | NUR ---
HAND-OFF: Report given to CHARLEY Dasilva.
[2018-09-14 08:00] VITALS: BP 130/76
--- NOTE | 2018-09-14 08:14 | NUR ---
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
[2018-09-14] MEDS ORDERED: Isentress 400mg tab ORAL SCH (09:00)
[2018-09-14] MEDS ORDERED: Etravirine 100mg tab ORAL SCH ×2 (09:00→11:45)
[2018-09-14] MEDS ORDERED: Ritonavir 100mg tab ORAL SCH (09:00)
[2018-09-14] MEDS: Vitamin D 1000 IU Tab ORAL SCH (09:24)
[2018-09-14] MEDS: Metoprolol 25mg tab ORAL SCH ×2 (09:25→21:13)
[2018-09-14] MEDS: PARoxetine 20mg tab ORAL SCH (09:25)
[2018-09-14] MEDS: Losartan 50mg tab ORAL SCH (09:25)
[2018-09-14] MEDS: Meloxicam 15 MG TAB ORAL SCH (09:25)
--- NOTE | 2018-09-14 09:34 | Diagnostic Imaging Report ---
Indication: Bilateral leg pain Technique: Grayscale and duplex images of the bilateral lower extremity veins Comparison: 08/31/2018 Findings: Exam is somewhat technically challenging; patient reports patient was contracted limiting ability to compress the tibial veins. Grayscale duplex images demonstrate no evidence of intraluminal thrombus bilaterally. Normal phasic Doppler waveforms, demonstrating normal augmentation response and no evidence of valvular insufficiency. Normal compressibility of the veins above the tibial veins. No significant interim change. Impression: Negative for lower extremity deep venous thrombosis
--- NOTE | 2018-09-14 10:52 | NUR ---
NURSE NOTES: pt in bed with no sob nor in any form of distress noted. all due meds given as ordered. denies any pain at this time. will continue to monitor
[2018-09-14] MEDS ORDERED: Darunavir 600mg tab ORAL SCH (11:45)
--- NOTE | 2018-09-14 11:49 | Consultation ---
History of Present Illness General Date patient seen: Sep 14, 2018 Chief Complaint: Abdominal Pain Present Illness HPI 68 y/o M with hx of HIV, rectal CA, CVA 2004, HTN, recently admitted here for UTI and course complicated by Cdiff presents back to ED on 09/14 with ongoing abd cramping and diarrhea. Also reports stiffness to his legs. +nausea and vomiting Denied CP, f/c, dysuria, urinary frequency Patient admitted previously from 08/31 to 09/12 and was discharged on day 7 of of oral vancomycin. Diarrhea was improving at the time of discharge. Allergies: Coded Allergies: CODEINE (Unverified Allergy, Unknown, 11/28/17) EMTRICITABINE (Verified Allergy, Unknown, anxiousness, 08/31/18) SULFAMETHOXAZOLE (Unverified Allergy, Unknown, 10/27/17) TENOFOVIR (Verified Allergy, Unknown, anxiousness, 08/31/18) TRIMETHOPRIM (Unverified Allergy, Unknown, 10/27/17) Medication History Scheduled Acetaminophen* (Tylenol Extra Strength*), 500 MG ORAL Q6H Alendronate Sodium* (Fosamax*), 70 MG ORAL ONCE A WEEK, (Reported) Amlodipine Besylate (Norvasc), 10 MG ORAL DAILY, (Reported) Amoxicillin/Potassium Clav 875-125* (Augmentin 875-125 Tablet*), 1 TAB ORAL DAILY, (Reported) Aspirin* (Aspir 81*), 81 MG ORAL DAILY, (Reported) Baclofen* (Baclofen*), 10 MG ORAL THREE TIMES A DAY, (Reported) Calcium Carbonate (Oysco-500), 500 MG PO DAILY, (Reported) Cephalexin* (Keflex*), 500 MG ORAL EVERY 12 HOURS Cephalexin* (Keflex*), 500 MG ORAL EVERY 12 HOURS Cholecalciferol (Vitamin D3)* (Vitamin D*), 2,000 UNITS ORAL DAILY, (Reported) Clotrimazole* (Lotrimin*), 1 APPLIC TOPIC TWICE A DAY, (Reported) Darunavir Ethanolate* (Prezista*), 600 MG ORAL EVERY 12 HOURS, (Reported) Darunavir Ethanolate* (Prezista*), 800 MG ORAL EVERY 12 HOURS, (Reported) Dutasteride (Avodart), 0.5 MG ORAL DAILY, (Reported) Entecavir* (Baraclude*), 1 MG ORAL DAILY, (Reported) Etravirine* (Intelence*), 200 MG ORAL EVERY 12 HOURS, (Reported) Finasteride* (Proscar*), 5 MG ORAL DAILY, (Reported) Gabapentin* (Gabapentin*), 600 MG ORAL THREE TIMES A DAY, (Reported) Hydrocortisone/Iodoquin/Aloe#2 (Alcortin A Gel), 48 GM TP QID, (Reported) Levothyroxine Sodium* (Levothyroxine Sodium*), 25 MCG ORAL DAILY, (Reported) Lorazepam* (Lorazepam*), 1 MG ORAL TWICE A DAY, (Reported) Losartan Potassium* (Losartan Potassium*), 50 MG ORAL DAILY, (Reported) Meloxicam* (Meloxicam*), 15 MG PO DAILY, (Reported) Methocarbamol (Methocarbamol), 500 MG PO Q6HR, (Reported) Metoprolol Tartrate* (Metoprolol Tartrate*), 25 MG ORAL EVERY 12 HOURS, ( Reported) Mirtazapine* (Mirtazapine*), 15 MG ORAL BEDTIME, (Reported) Omeprazole (Omeprazole), 20 MG ORAL DAILY, (Reported) Oxycodone HCl/Acetaminophen (Percocet 10-325 mg Tablet), 1 EACH PO TID, ( Reported) Oxycodone Hcl/Acetaminophen (Endocet 10-325 Mg Tablet), 1 TAB ORAL Q4H, ( Reported) Paroxetine Hcl (Paroxetine Hcl), 40 MG ORAL DAILY, (Reported) Raltegravir Potassium (Isentress), 400 MG ORAL TWICE A DAY, (Reported) Ritonavir* (Norvir*), 100 MG ORAL TWICE A DAY, (Reported) Tamsulosin Hcl (Tamsulosin Hcl*), 0.4 MG ORAL BEDTIME, (Reported) Valacyclovir Hcl* (Valtrex*), 1,000 MG ORAL DAILY, (Reported) Vancomycin HCl (Vancomycin HCl), 125 MG ORAL FOUR TIMES A DAY Scheduled PRN Eszopiclone (Lunesta), 3 MG ORAL BEDTIME PRN for Insomnia, (Reported) Ondansetron Odt* (Zofran Odt*), 8 MG ORAL Q6H PRN for Nausea & Vomiting, ( Reported) Miscellaneous Medications Elviteg/Jihan/Emtric/Tenofo Ala (Genvoya Tablet), 1 EACH PO, (Reported) Mirabegron (Myrbetriq), 25 MG PO, (Reported) Oxybutynin Chloride (Oxybutynin Chloride), 10 MG PO, (Reported) Simethicone (Gas Relief), 125 MG PO, (Reported) Patient History Healthcare decision maker Resuscitation status Full Code Advanced Directive on File Patient History Narrative Pmhx: as above Shx: reviewed Fhx: non contributory Review of Systems All Other Systems: negative except mentioned in HPI Physical Exam Physical Exam Narrative Head: normocephalic, atraumatic Eyes: bilateral eye PERRL, bilateral eye EOMI ENT: dry mucus membranes Neck: supple Respiratory: lungs clear, no respiratory distress, no retraction, no accessory muscle use Cardiovascular #1: regular rate, rhythm Gastrointestinal: non tender, soft Musculoskeletal: other - Some contractures of the lower legs Neurologic: alert, oriented x3, responsive Skin: normal color, no rash Lymphatic: no adenopathy Last 24 Hour Vital Signs Date Time Temp Pulse Resp B/P (MAP) Pulse Ox O2 Delivery O2 Flow Rate FiO2 09/14/18 09:34 Room Air 09/14/18 09:25 80 130/76 09/14/18 09:25 130/76 09/14/18 09:24 80 130/76 09/14/18 08:00 97.7 80 20 130/76 (94) 97 09/14/18 04:00 97.9 79 20 133/72 (92) 93 09/14/18 00:00 98.9 83 20 124/71 (88) 92 09/13/18 23:52 Room Air 09/13/18 22:29 Room Air 09/13/18 21:15 97.3 93 20 105/56 (72) 95 09/13/18 20:18 98.2 90 22 124/78 100 Room Air 09/13/18 20:15 98.2 90 22 124/78 100 Room Air 09/13/18 17:08 98.0 09/13/18 16:31 93 24 Room Air 09/13/18 16:29 98.0 93 24 119/74 100 Room Air 09/13/18 16:17 98.1 102 16 98/61 95 Room Air Intake and Output 09/13/18 09/14/18 19:00 07:00 Intake Total 1000 ml Balance 1000 ml Intake Oral 0 ml IV Total 1000 ml # Voids 1 Laboratory Tests Test 09/13/18 16:55 09/14/18 05:20 White Blood Count 8.7 K/UL (4.8-10.8) 5.7 K/UL (4.8-10.8) Red Blood Count 3.80 M/UL (4.70-6.10) L 3.46 M/UL (4.70-6.10) L Hemoglobin 12.7 G/DL (14.2-18.0) L 11.7 G/DL (14.2-18.0) L Hematocrit 37.4 % (42.0-52.0) L 33.9 % (42.0-52.0) L Mean Corpuscular Volume 98 FL (80-99) 98 FL (80-99) Mean Corpuscular Hemoglobin 33.5 PG (27.0-31.0) H 33.7 PG (27.0-31.0) H Mean Corpuscular Hemoglobin Concent 34.0 G/DL (32.0-36.0) 34.4 G/DL (32.0-36.0) Red Cell Distribution Width 12.2 % (11.6-14.8) 12.5 % (11.6-14.8) Platelet Count 241 K/UL (150-450) 206 K/UL (150-450) Mean Platelet Volume 7.5 FL (6.5-10.1) 8.2 FL (6.5-10.1) Neutrophils (%) (Auto) 59.1 % (45.0-75.0) 51.4 % (45.0-75.0) Lymphocytes (%) (Auto) 28.6 % (20.0-45.0) 34.8 % (20.0-45.0) Monocytes (%) (Auto) 10.0 % (1.0-10.0) 10.6 % (1.0-10.0) H Eosinophils (%) (Auto) 1.4 % (0.0-3.0) 2.5 % (0.0-3.0) Basophils (%) (Auto) 0.9 % (0.0-2.0) 0.8 % (0.0-2.0) Sodium Level 139 MMOL/L (136-145) 139 MMOL/L (136-145) Potassium Level 3.9 MMOL/L (3.5-5.1) 4.0 MMOL/L (3.5-5.1) Chloride Level 104 MMOL/L (98-107) 106 MMOL/L (98-107) Carbon Dioxide Level 23 MMOL/L (21-32) 24 MMOL/L (21-32) Anion Gap 12 mmol/L (5-15) 9 mmol/L (5-15) Blood Urea Nitrogen 29 mg/dL (7-18) H 20 mg/dL (7-18) H Creatinine 1.6 MG/DL (0.55-1.30) H 1.2 MG/DL (0.55-1.30) Estimat Glomerular Filtration Rate 42.9 mL/min (>60) 59.9 mL/min (>60) Glucose Level 113 MG/DL (74-106) H 90 MG/DL (74-106) Calcium Level 10.1 MG/DL (8.5-10.1) 8.9 MG/DL (8.5-10.1) Total Bilirubin 0.5 MG/DL (0.2-1.0) 0.4 MG/DL (0.2-1.0) Aspartate Amino Transf (AST/SGOT) 33 U/L (15-37) 28 U/L (15-37) Alanine Aminotransferase (ALT/SGPT) 50 U/L (12-78) 45 U/L (12-78) Alkaline Phosphatase 118 U/L (46-116) H 105 U/L (46-116) Total Protein 7.6 G/DL (6.4-8.2) 6.8 G/DL (6.4-8.2) Albumin 3.2 G/DL (3.4-5.0) L 2.8 G/DL (3.4-5.0) L Globulin 4.4 g/dL 4.0 g/dL Albumin/Globulin Ratio 0.7 (1.0-2.7) L 0.7 (1.0-2.7) L Lipase 216 U/L (73-393) Triglycerides Level 98 MG/DL (30-150) Cholesterol Level 123 MG/DL (< 200) LDL Cholesterol 79 mg/dL (<100) HDL Cholesterol 30 MG/DL (40-60) L Cholesterol/HDL Ratio 4.1 (3.3-4.4) Thyroid Stimulating Hormone (TSH) 0.722 uiU/mL (0.358-3.740) Height (Feet): 5 Height (Inches): 10.00 Weight (Pounds): 152 Medications Current Medications Medications (Trade) Dose Ordered Sig/Roman Route PRN Reason Start Time Stop Time Status Last Admin Dose Admin Acetaminophen (Tylenol) 650 mg Q4H PRN ORAL fever (temp>100.5F) 09/13/18 18:00 10/13/18 17:59 Al Hydroxide/Mg Hydroxide (Mylanta II) 30 ml Q6H PRN ORAL dyspepsia 09/13/18 18:00 10/13/18 17:59 Alendronate Sodium (Fosamax) 70 mg ONCE A WEEK ORAL 09/17/18 09:00 10/17/18 08:59 Amlodipine Besylate (Norvasc) 10 mg DAILY ORAL 09/14/18 09:00 10/14/18 08:59 09/14/18 09:24 Baclofen (Lioresal) 10 mg THREE TIMES A DAY PRN ORAL Muscle Spasm 09/13/18 23:15 10/13/18 23:14 Calcium Carbonate (Os-Fazal) 500 mg DAILY ORAL 09/14/18 09:00 10/14/18 08:59 09/14/18 09:25 Clotrimazole (Lotrimin) 1 applic TWICE A DAY TOPIC 09/14/18 09:00 10/14/18 08:59 09/14/18 10:48 Dextrose (Dextrose 50%) 25 ml Q30M PRN IV Hypoglycemia 09/13/18 18:00 10/13/18 17:54 Dextrose (Dextrose 50%) 50 ml Q30M PRN IV hypoglycemia 09/13/18 18:00 10/13/18 17:59 Etravirine (Intelence) 200 mg EVERY 12 HOURS ORAL 09/14/18 09:00 10/14/18 08:59 Future Hold Finasteride (Proscar) 5 mg DAILY ORAL 09/14/18 09:00 10/14/18 08:59 09/14/18 09:25 Gabapentin (Neurontin) 600 mg BID ORAL 09/14/18 09:00 10/14/18 08:59 09/14/18 09:25 Lorazepam (Ativan 2mg/ml 1ml) 0.5 mg Q4H PRN IV For Anxiety 09/13/18 18:00 09/20/18 17:59 Lorazepam (Ativan) 1 mg TWICE A DAY PRN ORAL For Anxiety 09/13/18 23:15 09/20/18 23:14 Losartan Potassium (Cozaar) 50 mg DAILY ORAL 09/14/18 09:00 10/14/18 08:59 09/14/18 09:25 Meloxicam (Mobic) 15 mg DAILY ORAL 09/14/18 09:00 10/14/18 08:59 09/14/18 09:25 Metoprolol Tartrate (Lopressor) 25 mg EVERY 12 HOURS ORAL 09/14/18 09:00 10/14/18 08:59 09/14/18 09:25 Mirtazapine (Remeron) 15 mg BEDTIME ORAL 09/14/18 21:00 10/14/18 20:59 Morphine Sulfate (Morphine Sulfate) 4 mg Q4H PRN IVP Severe Pain (Pain Scale 7-10) 09/13/18 23:00 09/20/18 22:59 09/14/18 03:09 Ondansetron HCl (Zofran ODT) 8 mg Q6H PRN ORAL Nausea & Vomiting 09/13/18 23:15 10/13/18 23:14 Ondansetron HCl (Zofran) 4 mg Q6H PRN IVP Nausea & Vomiting 09/13/18 18:00 10/13/18 17:59 09/14/18 03:09 Paroxetine HCl (Paxil) 40 mg DAILY ORAL 09/14/18 09:00 10/14/18 08:59 09/14/18 09:25 Polyethylene Glycol (Miralax) 17 gm HSPRN PRN ORAL Constipation 09/13/18 18:00 10/13/18 17:59 Raltegravir (Isentress) 100 mg Q12HR ORAL 09/14/18 09:00 10/14/18 08:59 Future Hold Ritonavir (Norvir) 100 mg TWICE A DAY ORAL 09/14/18 09:00 10/14/18 08:59 Future Hold Tamsulosin HCl (Flomax) 0.4 mg BEDTIME ORAL 09/14/18 21:00 10/14/18 20:59 Vitamin D (Vitamin D) 2,000 intlu DAILY ORAL 09/14/18 09:00 10/14/18 08:59 09/14/18 09:24 Zolpidem Tartrate (Ambien) 5 mg HSPRN PRN ORAL Insomnia 09/13/18 18:00 09/20/18 17:59 Assessment/Plan Assessment/Plan Abx: None Assessment: Cdiff, ongoing diarrhea on oral vancomycin --09/06 Cdiff toxin a/b + -09/06 SP Colonoscopy: proctitis -stool cx: normal thomas -Giardia ag, cryptosporidium neg Nausea/vomiting Afebrile No leukocytosis Recent UTI, s/p Rx -u/a wbc 10-15, shirley neg, leuk +3; ucx >100K PROTEUS MIRABILIS ( I Levo; R Amp, bactrim, Cipro, Nitro; S Ceftriaxone) HIV/AIDS- on ARV (per pt VL UD) -09/2018 182 (10.1%) -11/2017 CD4 323 hx of rectal CA CVA 2005 HTN Plan: -Will start Fidaxomicin as patient not improved with oral vancomycin -09/13 SP PO Vancomycin #8 -f/u cx -Monitor CBC/CMP, temperatures -Contiue ARV (Genvoya, prezista, intelence)- if one medicine is missing, please hold all of them until all medicines are available -Atovaquone for PCP px -HIV VL am Thank you for this consultation. Will continue to follow along with you. Miranda Cordero M.D. Sep 14, 2018 11:49
[2018-09-14 12:00] VITALS: BP 135/76
--- NOTE | 2018-09-14 12:09 | NUR ---
*-* INSURANCE *-* CLINICALS AND REVIEWS HAVE BEEN FAXED TO: [facility] NCM: CARMITA P: [phone] CELL: [phone] F: [phone]
--- NOTE | 2018-09-14 13:31 | Pulmonology Progress Note ---
Assessment/Plan Problems: (1) C. difficile colitis (2) Severe protein-calorie malnutrition (3) HIV (human immunodeficiency virus infection) (4) ATN (acute tubular necrosis) (5) History of rectal cancer Assessment/Plan iv fluids iv abx check electrolytes symptomatic treatment Subjective ROS Limited/Unobtainable: No Constitutional: Reports: no symptoms HEENT: Repors: no symptoms Respiratory: Reports: no symptoms Allergies: Coded Allergies: CODEINE (Unverified Allergy, Unknown, 11/28/17) EMTRICITABINE (Verified Allergy, Unknown, anxiousness, 08/31/18) SULFAMETHOXAZOLE (Unverified Allergy, Unknown, 10/27/17) TENOFOVIR (Verified Allergy, Unknown, anxiousness, 08/31/18) TRIMETHOPRIM (Unverified Allergy, Unknown, 10/27/17) Objective Last 24 Hour Vital Signs Date Time Temp Pulse Resp B/P (MAP) Pulse Ox O2 Delivery O2 Flow Rate FiO2 09/14/18 09:34 Room Air 09/14/18 09:25 80 130/76 09/14/18 09:25 130/76 09/14/18 09:24 80 130/76 09/14/18 08:00 97.7 80 20 130/76 (94) 97 09/14/18 04:00 97.9 79 20 133/72 (92) 93 09/14/18 00:00 98.9 83 20 124/71 (88) 92 09/13/18 23:52 Room Air 09/13/18 22:29 Room Air 09/13/18 21:15 97.3 93 20 105/56 (72) 95 09/13/18 20:18 98.2 90 22 124/78 100 Room Air 09/13/18 20:15 98.2 90 22 124/78 100 Room Air 09/13/18 17:08 98.0 09/13/18 16:31 93 24 Room Air 09/13/18 16:29 98.0 93 24 119/74 100 Room Air 09/13/18 16:17 98.1 102 16 98/61 95 Room Air Intake and Output 09/13/18 09/14/18 19:00 07:00 Intake Total 1000 ml Balance 1000 ml Intake Oral 0 ml IV Total 1000 ml # Voids 1 General Appearance: cachetic HEENT: normocephalic, atraumatic Respiratory/Chest: chest wall non-tender, lungs clear Cardiovascular: normal peripheral pulses, normal rate Abdomen: normal bowel sounds, soft, non tender Genitourinary: normal external genitalia Extremities: no cyanosis 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: 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 grossly normal Laboratory Tests 09/13/18 16:55: White Blood Count 8.7, Red Blood Count 3.80L, Hemoglobin 12.7L, Hematocrit 37.4L , Mean Corpuscular Volume 98, Mean Corpuscular Hemoglobin 33.5H, Mean Corpuscular Hemoglobin Concent 34.0, Red Cell Distribution Width 12.2, Platelet Count 241, Mean Platelet Volume 7.5, Neutrophils (%) (Auto) 59.1, Lymphocytes (% ) (Auto) 28.6, Monocytes (%) (Auto) 10.0, Eosinophils (%) (Auto) 1.4, Basophils (%) (Auto) 0.9, Sodium Level 139, Potassium Level 3.9, Chloride Level 104, Carbon Dioxide Level 23, Anion Gap 12, Blood Urea Nitrogen 29H, Creatinine 1.6H , Estimat Glomerular Filtration Rate 42.9, Glucose Level 113H, Calcium Level 10.1, Total Bilirubin 0.5, Aspartate Amino Transf (AST/SGOT) 33, Alanine Aminotransferase (ALT/SGPT) 50, Alkaline Phosphatase 118H, Total Protein 7.6, Albumin 3.2L, Globulin 4.4, Albumin/Globulin Ratio 0.7L, Lipase 216 09/14/18 05:20: White Blood Count 5.7, Red Blood Count 3.46L, Hemoglobin 11.7L, Hematocrit 33.9L , Mean Corpuscular Volume 98, Mean Corpuscular Hemoglobin 33.7H, Mean Corpuscular Hemoglobin Concent 34.4, Red Cell Distribution Width 12.5, Platelet Count 206, Mean Platelet Volume 8.2, Neutrophils (%) (Auto) 51.4, Lymphocytes (% ) (Auto) 34.8, Monocytes (%) (Auto) 10.6H, Eosinophils (%) (Auto) 2.5, Basophils (%) (Auto) 0.8, Sodium Level 139, Potassium Level 4.0, Chloride Level 106, Carbon Dioxide Level 24, Anion Gap 9, Blood Urea Nitrogen 20H, Creatinine 1.2, Estimat Glomerular Filtration Rate 59.9, Glucose Level 90, Calcium Level 8.9, Total Bilirubin 0.4, Aspartate Amino Transf (AST/SGOT) 28, Alanine Aminotransferase (ALT/SGPT) 45, Alkaline Phosphatase 105, Total Protein 6.8, Albumin 2.8L, Globulin 4.0, Albumin/Globulin Ratio 0.7L, Triglycerides Level 98 , Cholesterol Level 123, LDL Cholesterol 79, HDL Cholesterol 30L, Cholesterol/ HDL Ratio 4.1, Thyroid Stimulating Hormone (TSH) 0.722 Current Medications Medications (Trade) Dose Ordered Sig/Roman Route PRN Reason Start Time Stop Time Status Last Admin Dose Admin Acetaminophen (Tylenol) 650 mg Q4H PRN ORAL fever (temp>100.5F) 09/13/18 18:00 10/13/18 17:59 Al Hydroxide/Mg Hydroxide (Mylanta II) 30 ml Q6H PRN ORAL dyspepsia 09/13/18 18:00 10/13/18 17:59 Alendronate Sodium (Fosamax) 70 mg ONCE A WEEK ORAL 09/17/18 09:00 10/17/18 08:59 Amlodipine Besylate (Norvasc) 10 mg DAILY ORAL 09/14/18 09:00 10/14/18 08:59 09/14/18 09:24 Atovaquone (Mepron Susp) 1,500 mg DAILY ORAL 09/14/18 12:00 10/14/18 11:59 Baclofen (Lioresal) 10 mg THREE TIMES A DAY PRN ORAL Muscle Spasm 09/13/18 23:15 10/13/18 23:14 Calcium Carbonate (Os-Fazal) 500 mg DAILY ORAL 09/14/18 09:00 10/14/18 08:59 09/14/18 09:25 Clotrimazole (Lotrimin) 1 applic TWICE A DAY TOPIC 09/14/18 09:00 10/14/18 08:59 09/14/18 10:48 Darunavir (Prezista) 600 mg TWICE A DAY ORAL 09/14/18 11:45 10/14/18 11:44 UNV Dextrose (Dextrose 50%) 25 ml Q30M PRN IV Hypoglycemia 09/13/18 18:00 10/13/18 17:54 Dextrose (Dextrose 50%) 50 ml Q30M PRN IV hypoglycemia 09/13/18 18:00 10/13/18 17:59 Etravirine (Intelence) 200 mg Q12HR ORAL 09/14/18 11:45 10/14/18 11:44 UNV Finasteride (Proscar) 5 mg DAILY ORAL 09/14/18 09:00 10/14/18 08:59 09/14/18 09:25 Gabapentin (Neurontin) 600 mg BID ORAL 09/14/18 09:00 10/14/18 08:59 09/14/18 09:25 Lorazepam (Ativan 2mg/ml 1ml) 0.5 mg Q4H PRN IV For Anxiety 09/13/18 18:00 09/20/18 17:59 Lorazepam (Ativan) 1 mg TWICE A DAY PRN ORAL For Anxiety 09/13/18 23:15 09/20/18 23:14 Losartan Potassium (Cozaar) 50 mg DAILY ORAL 09/14/18 09:00 10/14/18 08:59 09/14/18 09:25 Meloxicam (Mobic) 15 mg DAILY ORAL 09/14/18 09:00 10/14/18 08:59 09/14/18 09:25 Metoprolol Tartrate (Lopressor) 25 mg EVERY 12 HOURS ORAL 09/14/18 09:00 10/14/18 08:59 09/14/18 09:25 Mirtazapine (Remeron) 15 mg BEDTIME ORAL 09/14/18 21:00 10/14/18 20:59 Morphine Sulfate (Morphine Sulfate) 4 mg Q4H PRN IVP Severe Pain (Pain Scale 7-10) 09/13/18 23:00 09/20/18 22:59 09/14/18 03:09 Non-Formulary Medication (Non-Formulary Med) 1 ea DAILY ORAL 09/14/18 11:45 10/14/18 11:44 UNV Non-Formulary Medication (Non-Formulary Med) 1 ea DAILY ORAL 09/14/18 13:00 10/14/18 12:59 UNV Ondansetron HCl (Zofran ODT) 8 mg Q6H PRN ORAL Nausea & Vomiting 09/13/18 23:15 10/13/18 23:14 Ondansetron HCl (Zofran) 4 mg Q6H PRN IVP Nausea & Vomiting 09/13/18 18:00 10/13/18 17:59 09/14/18 03:09 Paroxetine HCl (Paxil) 40 mg DAILY ORAL 09/14/18 09:00 10/14/18 08:59 09/14/18 09:25 Polyethylene Glycol (Miralax) 17 gm HSPRN PRN ORAL Constipation 09/13/18 18:00 10/13/18 17:59 Tamsulosin HCl (Flomax) 0.4 mg BEDTIME ORAL 09/14/18 21:00 10/14/18 20:59 Vitamin D (Vitamin D) 2,000 intlu DAILY ORAL 09/14/18 09:00 10/14/18 08:59 09/14/18 09:24 Zolpidem Tartrate (Ambien) 5 mg HSPRN PRN ORAL Insomnia 09/13/18 18:00 09/20/18 17:59 Oliverio Rm MD Sep 14, 2018 13:31
[2018-09-14] MEDS: Atovaquone 750mg/5ml Susp ORAL SCH (13:57)
[2018-09-14 16:00] VITALS: BP 134/84
[2018-09-14] MEDS: PREZISTA 600 MG ORAL SCH (17:11)
[2018-09-14] MEDS: GENVOYA ORAL SCH (17:11)
[2018-09-14] MEDS: INTELENCE 200 MG ORAL SCH (17:11)
--- NOTE | 2018-09-14 19:24 | NUR ---
HAND-OFF: Report given to CHARLEY Espinoza.
--- NOTE | 2018-09-14 19:30 | NUR ---
NURSE NOTES: Received patient in no apparent distress. A&OX4. IV site patent and intact. Bed in lowest position. Call light within reach. Will continue to monitor.
[2018-09-14 20:00] VITALS: BP 122/73
[2018-09-14] MEDS: Tamsulosin 0.4mg cap ORAL SCH (21:13)
--- NOTE | 2018-09-14 23:45 | History and Physical Report ---
DATE OF ADMISSION: 09/13/2018 CHIEF COMPLAINT: The patient is a 68-year-old white male who presents with chief complaint of diarrhea. HISTORY OF PRESENT ILLNESS: The patient was admitted to [facility] from 08/31/2018 the 09/13/2018. The patient was diagnosed with Clostridium difficile colitis at that time. The patient underwent a colonoscopy on 09/06/2018. The patient has a diagnosis of proctitis. The patient presented to the [place] emergency room, complaining of abdominal cramping and diarrhea. The patient states it has been occurring since he left the hospital. The patient was admitted for intractable diarrhea to rule out resistant Clostridium difficile. REVIEW OF SYSTEMS: CONSTITUTIONAL: The patient denies weight loss or gain. The patient complains of subjective fevers and chills. HEENT: The patient denies ear or throat pain. The patient denies headache. CARDIOVASCULAR: The patient denies palpitations or chest pain. CHEST: The patient denies wheeze or shortness of breath. ABDOMEN: The patient complains of abdominal cramping and diarrhea. The patient denies nausea, vomiting, or constipation. GENITOURINARY: The patient denies dysuria or increased frequency of urination. NEUROMUSCULAR: The patient denies seizures or generalized weakness. PAST MEDICAL HISTORY: Significant for: 1. HIV. 2. History of rectal cancer. 3. Hypertension. 4. History of cerebrovascular accident. 5. Major depression. 6. Anxiety. PAST SURGICAL HISTORY: The patient denies. CURRENT MEDICATIONS: 1. Fosamax 70 mg one tablet p.o. weekly. 2. Norvasc 10 mg p.o. daily. 3. Aspirin 81 mg p.o. daily. 4. Baclofen 10 mg p.o. three times daily. 5. Calcium carbonate 500 mg p.o. daily. 6. Vitamin D 2000 units p.o. daily. 7. Prezista 600 mg p.o. twice daily. 8. Avodart 0.5 mg p.o. daily. 9. Genvoya one tablet p.o. daily. 10. Lunesta 3 mg p.o. at bedtime. 11. Levoxyl 25 mcg p.o. daily. 12. Losartan 50 mg p.o. daily. 13. Meloxicam 15 mg p.o. daily. 14. Robaxin 500 mg p.o. q.i.d. 15. Metoprolol 25 mg twice daily. 16. Myrbetriq 25 mg p.o. daily. 17. Mirtazapine 15 mg p.o. at bedtime. 18. Omeprazole 10 mg p.o. daily. 19. Oxybutynin 10 mg p.o. daily. 20. Percocet 10/325 mg one p.o. q.6 h. p.r.n. 21. Paxil 40 mg p.o. daily. 22. Norvir 100 mg p.o. daily. 23. 40 mg p.o. twice daily. 24. Flomax 0.4 mg p.o. at bedtime. 25. Valtrex 1 g p.o. daily. ALLERGIES: 1. Codeine. 2. Emtricitabine. 3. Sulfamethoxazole. 4. 5. Trimethoprim. SOCIAL HISTORY: The patient denies tobacco or alcohol use. The patient is . PHYSICAL EXAMINATION: VITAL SIGNS: Temperature 97.7, respirations 20, pulse 80, and blood pressure 130/76. GENERAL: The patient is a thin-appearing white male, in no apparent distress. HEENT: Eyes, pupils equal and responsive to light and accommodation. Extraocular movements are intact. NECK: Supple without lymphadenopathy. CHEST: Lungs are clear to auscultation bilaterally without wheezes or rales.7 CARDIOVASCULAR: Regular rhythm and rate. S1 and S2 are normal without murmurs, rubs, or gallops. ABDOMEN: Soft, nontender, and nondistended. Positive bowel sounds. No evidence of hepatosplenomegaly. Currently, no rebound or guarding noted. EXTREMITIES: Negative for clubbing, cyanosis, or edema. RECTAL/GENITAL: Refused. NEUROLOGIC: Cranial sutures are grossly intact without focal deficits. Motor strength is 5/5 bilaterally. Deep tendon reflexes are 2+ plantar. LABORATORY STUDIES: WBC 8.7, hemoglobin 12.7, hematocrit 37.4, and platelets 241,000. Sodium 139, potassium 3.9, chloride 104, CO2 23, BUN 29, creatinine 1.6, and glucose 113. ASSESSMENT: This is a 68-year-old white male. 1. Diarrhea. 2. Abdominal cramping. 3. HIV. 4. History of rectal cancer. 5. Hypertension. 6. Cerebrovascular disease. 7. Major depression. 8. Anxiety. TREATMENT: 1. Diarrhea/abdominal cramps. A Gastroenterology consultation has been obtained with Dr. Dejan Germain. The patient may have a resistant form of Clostridium difficile. Stool cultures are pending. An Infectious Disease consultation has been obtained. 2. HIV. Continue antiretroviral medications as above. 3. Hypertension. Continue losartan as above. 4. Cerebrovascular disease. 5. History of rectal cancer. 6. Major depression/anxiety. Continue mirtazapine as above. 7. Benign prostatic hypertrophy. Continue Flomax as above. Trey Whitaker M.D. DR: ISAIAS JOB#: [id number] CC:
[2018-09-15] VITALS: BP 109/74
[2018-09-15 04:00] VITALS: BP 117/73
[2018-09-15] MEDS: Morphine Sulfate 4mg/ml Inj (IV USE ONLY) IVP PRN ×2 (05:39→15:09)
--- NOTE | 2018-09-15 07:30 | NUR ---
HAND-OFF: Report given to Samanta WHITEHEAD.
[2018-09-15 08:00] VITALS: BP 102/69
--- NOTE | 2018-09-15 08:29 | NUR ---
NURSE NOTES: Patient is alert and oriented. Patient has no reports of discomfort at the moment. Side rails are up X2, bed is locked and in lowest position. Will continue to monitor.
[2018-09-15] MEDS: Metoprolol 25mg tab ORAL SCH ×2 (09:00→22:02)
[2018-09-15] MEDS: Losartan 50mg tab ORAL SCH (09:00)
[2018-09-15] MEDS: Meloxicam 15 MG TAB ORAL SCH (09:41)
[2018-09-15] MEDS: Vitamin D 1000 IU Tab ORAL SCH (09:42)
[2018-09-15] MEDS: PARoxetine 20mg tab ORAL SCH (09:42)
[2018-09-15] MEDS: Atovaquone 750mg/5ml Susp ORAL SCH (09:43)
[2018-09-15] MEDS: PREZISTA 600 MG ORAL SCH ×2 (09:44→18:32)
[2018-09-15] MEDS: INTELENCE 200 MG ORAL SCH ×2 (09:45→18:32)
--- NOTE | 2018-09-15 10:24 | NUR ---
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
--- NOTE | 2018-09-15 11:51 | General Progress Note ---
Assessment/Plan Problem List: (1) HIV (human immunodeficiency virus infection) ICD Codes: B20 - Human immunodeficiency virus [HIV] disease SNOMED: 43503005 (2) Diarrhea ICD Codes: R19.7 - Diarrhea, unspecified SNOMED: 87162835 (3) C. difficile colitis ICD Codes: A04.72 - Enterocolitis due to Clostridium difficile, not specified as recurrent SNOMED: 029233226 Assessment/Plan dc miralax on treatment for C.diff re ordered stool C.diff recent colonoscopy reviewed will fu Subjective ROS Limited/Unobtainable: Yes Allergies: Coded Allergies: CODEINE (Unverified Allergy, Unknown, 11/28/17) EMTRICITABINE (Verified Allergy, Unknown, anxiousness, 08/31/18) SULFAMETHOXAZOLE (Unverified Allergy, Unknown, 10/27/17) TENOFOVIR (Verified Allergy, Unknown, anxiousness, 08/31/18) TRIMETHOPRIM (Unverified Allergy, Unknown, 10/27/17) Objective Last 24 Hour Vital Signs Date Time Temp Pulse Resp B/P (MAP) Pulse Ox O2 Delivery O2 Flow Rate FiO2 09/15/18 09:00 82 102/69 09/15/18 09:00 102/69 09/15/18 09:00 82 102/69 09/15/18 08:00 99.2 82 20 102/69 (80) 94 09/15/18 04:00 98.2 80 19 117/73 (88) 92 09/15/18 00:00 98.8 77 19 109/74 (86) 94 09/14/18 21:13 79 122/73 09/14/18 21:00 Room Air 09/14/18 20:00 98.9 79 18 122/73 (89) 94 09/14/18 16:00 97.9 72 20 134/84 (101) 99 09/14/18 12:00 98.9 84 20 135/76 (95) 97 Intake and Output 09/14/18 09/15/18 19:00 07:00 Intake Total 540 ml Balance 540 ml Intake Oral 540 ml # Voids 3 3 Laboratory Tests 09/15/18 06:09: HIV-1 RNA (PCR) log10 Value [Pending], HIV-1 RNA Ultraquantitative (PCR) [ Pending] Height (Feet): 5 Height (Inches): 10.00 Weight (Pounds): 152 General Appearance: alert EENT: normal ENT inspection Neck: supple Cardiovascular: normal rate Respiratory/Chest: lungs clear Abdomen: normal bowel sounds, non tender, soft Extremities: non-tender Dejan Germain MD Sep 15, 2018 11:51
[2018-09-15 12:00] VITALS: BP 90/56
[2018-09-15] MEDS: GENVOYA ORAL SCH (14:58)
--- NOTE | 2018-09-15 15:07 | NUR ---
*-* INSURANCE *-* CLINICALS AND REVIEWS HAVE BEEN FAXED TO: [facility] NCM: CARMITA P: [phone] CELL: [phone] F: [phone]
--- NOTE | 2018-09-15 15:21 | Pulmonology Progress Note ---
Assessment/Plan Problems: (1) C. difficile colitis (2) Severe protein-calorie malnutrition (3) HIV (human immunodeficiency virus infection) (4) ATN (acute tubular necrosis) (5) History of rectal cancer Assessment/Plan slightly better still has diarrhea refusing to go to rehab iv fluids iv abx check electrolytes symptomatic treatment Subjective ROS Limited/Unobtainable: No Constitutional: Reports: no symptoms HEENT: Repors: no symptoms Respiratory: Reports: no symptoms Allergies: Coded Allergies: CODEINE (Unverified Allergy, Unknown, 11/28/17) EMTRICITABINE (Verified Allergy, Unknown, anxiousness, 08/31/18) SULFAMETHOXAZOLE (Unverified Allergy, Unknown, 10/27/17) TENOFOVIR (Verified Allergy, Unknown, anxiousness, 08/31/18) TRIMETHOPRIM (Unverified Allergy, Unknown, 10/27/17) Objective Last 24 Hour Vital Signs Date Time Temp Pulse Resp B/P (MAP) Pulse Ox O2 Delivery O2 Flow Rate FiO2 09/15/18 12:00 98.3 80 20 90/56 (67) 94 09/15/18 09:00 82 102/69 09/15/18 09:00 102/69 09/15/18 09:00 82 102/69 09/15/18 09:00 Room Air 09/15/18 08:00 99.2 82 20 102/69 (80) 94 09/15/18 04:00 98.2 80 19 117/73 (88) 92 09/15/18 00:00 98.8 77 19 109/74 (86) 94 09/14/18 21:13 79 122/73 09/14/18 21:00 Room Air 09/14/18 20:00 98.9 79 18 122/73 (89) 94 09/14/18 16:00 97.9 72 20 134/84 (101) 99 Intake and Output 09/14/18 09/15/18 19:00 07:00 Intake Total 540 ml Balance 540 ml Intake Oral 540 ml # Voids 3 3 Objective General Appearance: WD/WN HEENT: normocephalic, atraumatic Respiratory/Chest: chest wall non-tender, lungs clear Cardiovascular: normal peripheral pulses, normal rate Abdomen: normal bowel sounds, soft, non tender Extremities: no cyanosis Skin: no ulcers Microbiology Date/Time Source Procedure Growth Status 09/13/18 19:15 Rectum VRE Culture - Final Enterococcus Faecium - Vre Resulted 09/13/18 19:15 Rectum Pending Resulted Laboratory Tests 09/15/18 06:09: HIV-1 RNA (PCR) log10 Value [Pending], HIV-1 RNA Ultraquantitative (PCR) [ Pending] Current Medications Medications (Trade) Dose Ordered Sig/Roman Route PRN Reason Start Time Stop Time Status Last Admin Dose Admin Acetaminophen (Tylenol) 650 mg Q4H PRN ORAL fever (temp>100.5F) 09/13/18 18:00 10/13/18 17:59 Al Hydroxide/Mg Hydroxide (Mylanta II) 30 ml Q6H PRN ORAL dyspepsia 09/13/18 18:00 10/13/18 17:59 Alendronate Sodium (Fosamax) 70 mg ONCE A WEEK ORAL 09/17/18 09:00 10/17/18 08:59 Amlodipine Besylate (Norvasc) 10 mg DAILY ORAL 09/14/18 09:00 10/14/18 08:59 09/14/18 09:24 Atovaquone (Mepron Susp) 1,500 mg DAILY ORAL 09/14/18 12:00 10/14/18 11:59 09/15/18 09:43 Baclofen (Lioresal) 10 mg THREE TIMES A DAY PRN ORAL Muscle Spasm 09/13/18 23:15 10/13/18 23:14 Calcium Carbonate (Os-Fazal) 500 mg DAILY ORAL 09/14/18 09:00 10/14/18 08:59 09/15/18 09:43 Clotrimazole (Lotrimin) 1 applic TWICE A DAY TOPIC 09/14/18 09:00 10/14/18 08:59 09/15/18 09:44 Dextrose (Dextrose 50%) 25 ml Q30M PRN IV Hypoglycemia 09/13/18 18:00 10/13/18 17:54 Dextrose (Dextrose 50%) 50 ml Q30M PRN IV hypoglycemia 09/13/18 18:00 10/13/18 17:59 Fidaxomicin (Dificid) 200 mg EVERY 12 HOURS ORAL 09/14/18 21:00 09/21/18 20:59 09/15/18 09:44 Finasteride (Proscar) 5 mg DAILY ORAL 09/14/18 09:00 10/14/18 08:59 09/15/18 09:43 Lorazepam (Ativan 2mg/ml 1ml) 0.5 mg Q4H PRN IV For Anxiety 09/13/18 18:00 09/20/18 17:59 Lorazepam (Ativan) 1 mg TWICE A DAY PRN ORAL For Anxiety 09/13/18 23:15 09/20/18 23:14 Losartan Potassium (Cozaar) 50 mg DAILY ORAL 09/14/18 09:00 10/14/18 08:59 09/14/18 09:25 Meloxicam (Mobic) 15 mg DAILY ORAL 09/14/18 09:00 10/14/18 08:59 09/15/18 09:41 Metoprolol Tartrate (Lopressor) 25 mg EVERY 12 HOURS ORAL 09/14/18 09:00 10/14/18 08:59 09/14/18 21:13 Mirtazapine (Remeron) 15 mg BEDTIME ORAL 09/14/18 21:00 10/14/18 20:59 09/14/18 21:12 Morphine Sulfate (Morphine Sulfate) 4 mg Q4H PRN IVP Severe Pain (Pain Scale 7-10) 09/13/18 23:00 09/20/18 22:59 09/15/18 15:09 Ondansetron HCl (Zofran ODT) 8 mg Q6H PRN ORAL Nausea & Vomiting 09/13/18 23:15 10/13/18 23:14 Ondansetron HCl (Zofran) 4 mg Q6H PRN IVP Nausea & Vomiting 09/13/18 18:00 10/13/18 17:59 09/14/18 03:09 Paroxetine HCl (Paxil) 40 mg DAILY ORAL 09/14/18 09:00 10/14/18 08:59 09/15/18 09:42 Patient Own Medication (Patient's Own Med) 1 ea BID ORAL 09/14/18 18:00 10/14/18 17:59 09/15/18 09:44 Patient Own Medication (Patient's Own Med) 1 ea BID ORAL 09/14/18 18:00 10/14/18 17:59 09/15/18 09:45 Patient Own Medication (Patient's Own Med) 1 ea DAILY ORAL 09/15/18 15:00 10/15/18 14:59 09/15/18 14:58 Tamsulosin HCl (Flomax) 0.4 mg BEDTIME ORAL 09/14/18 21:00 10/14/18 20:59 09/14/18 21:13 Vitamin D (Vitamin D) 2,000 intlu DAILY ORAL 09/14/18 09:00 10/14/18 08:59 09/15/18 09:42 Zolpidem Tartrate (Ambien) 5 mg HSPRN PRN ORAL Insomnia 09/13/18 18:00 09/20/18 17:59 Oliverio Rm MD Sep 15, 2018 15:21
[2018-09-15 16:00] VITALS: BP 113/63
--- NOTE | 2018-09-15 16:03 | NUR ---
REHAB/P.T NOTE: P.T evaluation completed and treatment initiated. Please refer to P.T evaluation for current functional status. Pt presented generalized weakness , BLE LOM secondary to combination of joint stiffness, contractures and rigidity limiting overall functional mobilities and gait/locomotion. Pt currently require MOD A X 1 for bed mobility, transfers and gait/ambulation activities using the FWW. Pt will benefit from skilled P.T service to work on ROM, strength , balance and endurance to improve functional mobility independence and increase safety. Recommend return to prior living arrangement with continued P.T. at [place]. Thank you for this referral.
--- NOTE | 2018-09-15 17:25 | Infectious Diseases Prog Note ---
Assessment/Plan Assessment/Plan Abx: None Assessment: Cdiff, ongoing diarrhea on oral vancomycin --09/06 Cdiff toxin a/b + -09/06 SP Colonoscopy: proctitis -stool cx: normal thomas -Giardia ag, cryptosporidium neg Nausea/vomiting Afebrile No leukocytosis Recent UTI, s/p Rx -u/a wbc 10-15, shirley neg, leuk +3; ucx >100K PROTEUS MIRABILIS ( I Levo; R Amp, bactrim, Cipro, Nitro; S Ceftriaxone) HIV/AIDS- on ARV (per pt VL UD) -09/2018 182 (10.1%) -11/2017 CD4 323 hx of rectal CA CVA 2004 HTN Plan: -Cont Fidaxomicin #08/13 as patient not improved with oral vancomycin -09/13 SP PO Vancomycin #8 -f/u cx -Monitor CBC/CMP, temperatures -Contiue ARV (Genvoya, prezista, intelence)- if one medicine is missing, please hold all of them until all medicines are available -Atovaquone for PCP px -HIV VL am Thank you for this consultation. Will continue to follow along with you. Subjective Allergies: Coded Allergies: CODEINE (Unverified Allergy, Unknown, 11/28/17) EMTRICITABINE (Verified Allergy, Unknown, anxiousness, 08/31/18) SULFAMETHOXAZOLE (Unverified Allergy, Unknown, 10/27/17) TENOFOVIR (Verified Allergy, Unknown, anxiousness, 08/31/18) TRIMETHOPRIM (Unverified Allergy, Unknown, 10/27/17) Subjective afebrile no leukocytosis Objective Vital Signs Last 24 Hour Vital Signs Date Time Temp Pulse Resp B/P (MAP) Pulse Ox O2 Delivery O2 Flow Rate FiO2 09/15/18 12:00 98.3 80 20 90/56 (67) 94 09/15/18 09:00 82 102/69 09/15/18 09:00 102/69 09/15/18 09:00 82 102/69 09/15/18 09:00 Room Air 09/15/18 08:00 99.2 82 20 102/69 (80) 94 09/15/18 04:00 98.2 80 19 117/73 (88) 92 09/15/18 00:00 98.8 77 19 109/74 (86) 94 09/14/18 21:13 79 122/73 09/14/18 21:00 Room Air 09/14/18 20:00 98.9 79 18 122/73 (89) 94 Height (Feet): 5 Height (Inches): 10.00 Weight (Pounds): 152 Objective Head: normocephalic, atraumatic Eyes: bilateral eye PERRL, bilateral eye EOMI ENT: dry mucus membranes Neck: supple Respiratory: lungs clear, no respiratory distress, no retraction, no accessory muscle use Cardiovascular #1: regular rate, rhythm Gastrointestinal: non tender, soft Musculoskeletal: other - Some contractures of the lower legs Neurologic: alert, oriented x3, responsive Skin: normal color, no rash Lymphatic: no adenopathy Microbiology Date/Time Source Procedure Growth Status 09/13/18 19:15 Rectum VRE Culture - Final Enterococcus Faecium - Vre Resulted 09/13/18 19:15 Rectum Pending Resulted Laboratory Tests Test 09/15/18 06:09 HIV-1 RNA (PCR) log10 Value Pending HIV-1 RNA Ultraquantitative (PCR) Pending Current Medications Medications (Trade) Dose Ordered Sig/Roman Route PRN Reason Start Time Stop Time Status Last Admin Dose Admin Acetaminophen (Tylenol) 650 mg Q4H PRN ORAL fever (temp>100.5F) 09/13/18 18:00 10/13/18 17:59 Al Hydroxide/Mg Hydroxide (Mylanta II) 30 ml Q6H PRN ORAL dyspepsia 09/13/18 18:00 10/13/18 17:59 Alendronate Sodium (Fosamax) 70 mg ONCE A WEEK ORAL 09/17/18 09:00 10/17/18 08:59 Amlodipine Besylate (Norvasc) 10 mg DAILY ORAL 09/14/18 09:00 10/14/18 08:59 09/14/18 09:24 Atovaquone (Mepron Susp) 1,500 mg DAILY ORAL 09/14/18 12:00 10/14/18 11:59 09/15/18 09:43 Baclofen (Lioresal) 10 mg THREE TIMES A DAY PRN ORAL Muscle Spasm 09/13/18 23:15 10/13/18 23:14 Calcium Carbonate (Os-Fazal) 500 mg DAILY ORAL 09/14/18 09:00 10/14/18 08:59 09/15/18 09:43 Clotrimazole (Lotrimin) 1 applic TWICE A DAY TOPIC 09/14/18 09:00 10/14/18 08:59 09/15/18 09:44 Dextrose (Dextrose 50%) 25 ml Q30M PRN IV Hypoglycemia 09/13/18 18:00 10/13/18 17:54 Dextrose (Dextrose 50%) 50 ml Q30M PRN IV hypoglycemia 09/13/18 18:00 10/13/18 17:59 Fidaxomicin (Dificid) 200 mg EVERY 12 HOURS ORAL 09/14/18 21:00 09/21/18 20:59 09/15/18 09:44 Finasteride (Proscar) 5 mg DAILY ORAL 09/14/18 09:00 10/14/18 08:59 09/15/18 09:43 Lorazepam (Ativan 2mg/ml 1ml) 0.5 mg Q4H PRN IV For Anxiety 09/13/18 18:00 09/20/18 17:59 Lorazepam (Ativan) 1 mg TWICE A DAY PRN ORAL For Anxiety 09/13/18 23:15 09/20/18 23:14 Losartan Potassium (Cozaar) 50 mg DAILY ORAL 09/14/18 09:00 10/14/18 08:59 09/14/18 09:25 Meloxicam (Mobic) 15 mg DAILY ORAL 09/14/18 09:00 10/14/18 08:59 09/15/18 09:41 Metoprolol Tartrate (Lopressor) 25 mg EVERY 12 HOURS ORAL 09/14/18 09:00 10/14/18 08:59 09/14/18 21:13 Mirtazapine (Remeron) 15 mg BEDTIME ORAL 09/14/18 21:00 10/14/18 20:59 09/14/18 21:12 Morphine Sulfate (Morphine Sulfate) 4 mg Q4H PRN IVP Severe Pain (Pain Scale 7-10) 09/13/18 23:00 09/20/18 22:59 09/15/18 15:09 Ondansetron HCl (Zofran ODT) 8 mg Q6H PRN ORAL Nausea & Vomiting 09/13/18 23:15 10/13/18 23:14 Ondansetron HCl (Zofran) 4 mg Q6H PRN IVP Nausea & Vomiting 09/13/18 18:00 10/13/18 17:59 09/14/18 03:09 Paroxetine HCl (Paxil) 40 mg DAILY ORAL 09/14/18 09:00 10/14/18 08:59 09/15/18 09:42 Patient Own Medication (Patient's Own Med) 1 ea BID ORAL 09/14/18 18:00 10/14/18 17:59 09/15/18 09:44 Patient Own Medication (Patient's Own Med) 1 ea BID ORAL 09/14/18 18:00 10/14/18 17:59 09/15/18 09:45 Patient Own Medication (Patient's Own Med) 1 ea DAILY ORAL 09/15/18 15:00 10/15/18 14:59 09/15/18 14:58 Tamsulosin HCl (Flomax) 0.4 mg BEDTIME ORAL 09/14/18 21:00 10/14/18 20:59 09/14/18 21:13 Vitamin D (Vitamin D) 2,000 intlu DAILY ORAL 09/14/18 09:00 10/14/18 08:59 09/15/18 09:42 Zolpidem Tartrate (Ambien) 5 mg HSPRN PRN ORAL Insomnia 09/13/18 18:00 09/20/18 17:59 Miranda Cordero M.D. Sep 15, 2018 17:25
--- NOTE | 2018-09-15 19:07 | Internal Med Progress Note ---
Subjective Date of Service: Sep 15, 2018 Physician Name Trey Whitaker Attending Physician Carlos Barragan MD Current Medications Medications (Trade) Dose Ordered Sig/Roman Route PRN Reason Start Time Stop Time Status Last Admin Dose Admin Acetaminophen (Tylenol) 650 mg Q4H PRN ORAL fever (temp>100.5F) 09/13/18 18:00 10/13/18 17:59 Al Hydroxide/Mg Hydroxide (Mylanta II) 30 ml Q6H PRN ORAL dyspepsia 09/13/18 18:00 10/13/18 17:59 Alendronate Sodium (Fosamax) 70 mg ONCE A WEEK ORAL 09/17/18 09:00 10/17/18 08:59 Amlodipine Besylate (Norvasc) 10 mg DAILY ORAL 09/14/18 09:00 10/14/18 08:59 09/14/18 09:24 Atovaquone (Mepron Susp) 1,500 mg DAILY ORAL 09/14/18 12:00 10/14/18 11:59 09/15/18 09:43 Baclofen (Lioresal) 10 mg THREE TIMES A DAY PRN ORAL Muscle Spasm 09/13/18 23:15 10/13/18 23:14 Calcium Carbonate (Os-Fazal) 500 mg DAILY ORAL 09/14/18 09:00 10/14/18 08:59 09/15/18 09:43 Clotrimazole (Lotrimin) 1 applic TWICE A DAY TOPIC 09/14/18 09:00 10/14/18 08:59 09/15/18 18:32 Dextrose (Dextrose 50%) 25 ml Q30M PRN IV Hypoglycemia 09/13/18 18:00 10/13/18 17:54 Dextrose (Dextrose 50%) 50 ml Q30M PRN IV hypoglycemia 09/13/18 18:00 10/13/18 17:59 Fidaxomicin (Dificid) 200 mg EVERY 12 HOURS ORAL 09/14/18 21:00 09/21/18 20:59 09/15/18 09:44 Finasteride (Proscar) 5 mg DAILY ORAL 09/14/18 09:00 10/14/18 08:59 09/15/18 09:43 Lorazepam (Ativan 2mg/ml 1ml) 0.5 mg Q4H PRN IV For Anxiety 09/13/18 18:00 09/20/18 17:59 Lorazepam (Ativan) 1 mg TWICE A DAY PRN ORAL For Anxiety 09/13/18 23:15 09/20/18 23:14 Losartan Potassium (Cozaar) 50 mg DAILY ORAL 09/14/18 09:00 10/14/18 08:59 09/14/18 09:25 Meloxicam (Mobic) 15 mg DAILY ORAL 09/14/18 09:00 10/14/18 08:59 09/15/18 09:41 Metoprolol Tartrate (Lopressor) 25 mg EVERY 12 HOURS ORAL 09/14/18 09:00 10/14/18 08:59 09/14/18 21:13 Mirtazapine (Remeron) 15 mg BEDTIME ORAL 09/14/18 21:00 10/14/18 20:59 09/14/18 21:12 Morphine Sulfate (Morphine Sulfate) 4 mg Q4H PRN IVP Severe Pain (Pain Scale 7-10) 09/13/18 23:00 09/20/18 22:59 09/15/18 15:09 Ondansetron HCl (Zofran ODT) 8 mg Q6H PRN ORAL Nausea & Vomiting 09/13/18 23:15 10/13/18 23:14 Ondansetron HCl (Zofran) 4 mg Q6H PRN IVP Nausea & Vomiting 09/13/18 18:00 10/13/18 17:59 09/14/18 03:09 Paroxetine HCl (Paxil) 40 mg DAILY ORAL 09/14/18 09:00 10/14/18 08:59 09/15/18 09:42 Patient Own Medication (Patient's Own Med) 1 ea BID ORAL 09/14/18 18:00 10/14/18 17:59 09/15/18 18:32 Patient Own Medication (Patient's Own Med) 1 ea BID ORAL 09/14/18 18:00 10/14/18 17:59 09/15/18 18:32 Patient Own Medication (Patient's Own Med) 1 ea DAILY ORAL 09/15/18 15:00 10/15/18 14:59 09/15/18 14:58 Tamsulosin HCl (Flomax) 0.4 mg BEDTIME ORAL 09/14/18 21:00 10/14/18 20:59 09/14/18 21:13 Vitamin D (Vitamin D) 2,000 intlu DAILY ORAL 09/14/18 09:00 10/14/18 08:59 09/15/18 09:42 Zolpidem Tartrate (Ambien) 5 mg HSPRN PRN ORAL Insomnia 09/13/18 18:00 09/20/18 17:59 Allergies: Coded Allergies: CODEINE (Unverified Allergy, Unknown, 11/28/17) EMTRICITABINE (Verified Allergy, Unknown, anxiousness, 08/31/18) SULFAMETHOXAZOLE (Unverified Allergy, Unknown, 10/27/17) TENOFOVIR (Verified Allergy, Unknown, anxiousness, 08/31/18) TRIMETHOPRIM (Unverified Allergy, Unknown, 10/27/17) ROS Limited/Unobtainable: No Constitutional: Reports: no symptoms HEENT: Reports: no symptoms Cardiovascular: Reports: no symptoms Respiratory: Reports: no symptoms Gastrointestinal/Abdominal: Reports: abdominal pain, diarrhea Genitourinary: Reports: no symptoms 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: Reports: no symptoms Subjective 68 YO M admitted with C. Diff diarrhea. Cover for [facility] Med-Dr Barragan. Objective Last Vital Signs Date Time Temp Pulse Resp B/P (MAP) Pulse Ox O2 Delivery O2 Flow Rate FiO2 09/15/18 16:00 99.2 87 20 113/63 (80) 94 09/15/18 09:00 Room Air Laboratory Tests Test 09/15/18 06:09 HIV-1 RNA (PCR) log10 Value Pending HIV-1 RNA Ultraquantitative (PCR) Pending Microbiology Date/Time Source Procedure Growth Status 09/13/18 19:15 Rectum VRE Culture - Final Enterococcus Faecium - Vre Resulted 09/13/18 19:15 Rectum Pending Resulted Intake and Output 09/14/18 09/15/18 18:59 06:59 Intake Total 540 ml Balance 540 ml Intake Oral 540 ml # Voids 3 3 Objective PHYSICAL EXAMINATION: VITAL SIGNS: Temperature 97.7, respirations 20, pulse 80, and blood pressure 130/76. GENERAL: The patient is a thin-appearing white male, in no apparent distress. HEENT: Eyes, pupils equal and responsive to light and accommodation. Extraocular movements are intact. NECK: Supple without lymphadenopathy. CHEST: Lungs are clear to auscultation bilaterally without wheezes or rales.7 CARDIOVASCULAR: Regular rhythm and rate. S1 and S2 are normal without murmurs, rubs, or gallops. ABDOMEN: Soft, nontender, and nondistended. Positive bowel sounds. No evidence of hepatosplenomegaly. Currently, no rebound or guarding noted. EXTREMITIES: Negative for clubbing, cyanosis, or edema. RECTAL/GENITAL: Refused. NEUROLOGIC: Cranial sutures are grossly intact without focal deficits. Motor strength is 5/5 bilaterally. Deep tendon reflexes are 2+ plantar. Assessment/Plan Assessment/Plan 1. C. Diff Diarrhea. 2. Abdominal cramping. 3. HIV. 4. History of rectal cancer. 5. Hypertension. 6. Cerebrovascular disease. 7. Major depression. 8. Anxiety. TREATMENT: 1. Diarrhea/abdominal cramps. A Gastroenterology consultation has been obtained with Dr. Dejan Germain. The patient may have a resistant form of Clostridium difficile. Repeat Stool for C.Diff are pending. An Infectious Disease consultation has been obtained. Continue fidaxomicin per GI 2. HIV. Continue antiretroviral medications as above. 3. Hypertension. Continue losartan as above. 4. Cerebrovascular disease. 5. History of rectal cancer. 6. Major depression/anxiety. Continue mirtazapine as above. 7. Benign prostatic hypertrophy. Continue Flomax as above Trey Whitaker MD Sep 15, 2018 19:07
--- NOTE | 2018-09-15 19:10 | NUR ---
NURSE NOTES: Received a report from Samanta Swartz RN. Pt is in stable condition. AAOX4. Able to make needs known. No respiratory distress noted. On room air. IV site is patent and intact. Bed in lowest position. Bed alarm is on. Call light within reach. Will continue to monitor.
--- NOTE | 2018-09-15 19:16 | NUR ---
HAND-OFF: Report given to Samanta Barnes
[2018-09-15 20:00] VITALS: BP 116/73
[2018-09-15] MEDS: Tamsulosin 0.4mg cap ORAL SCH (22:02)
[2018-09-16] VITALS: BP 127/78
[2018-09-16] MEDS: Morphine Sulfate 4mg/ml Inj (IV USE ONLY) IVP PRN ×3 (03:36→23:39)
[2018-09-16 04:00] VITALS: BP 112/74
[2018-09-16 07:13] LABS: BASOPHILS % (AUTO) 0.5 % (0.0-2.0); EOSINOPHILS % (AUTO) 2.1 % (0.0-3.0); HEMATOCRIT 35.7 % (42.0-52.0); HEMOGLOBIN 12.3 G/DL (14.2-18.0); LYMPHOCYTES % (AUTO) 29.9 % (20.0-45.0); MEAN CORPUSCULAR VOLUME 98 FL (80-99); MONOCYTES % (AUTO) 7.9 % (1.0-10.0); NEUTROPHILS % (AUTO) 59.5 % (45.0-75.0); PLATELET COUNT 218 K/UL (150-450); RED BLOOD COUNT 3.66 M/UL (4.70-6.10); RED CELL DISTRIBUTION WIDTH 12.3 % (11.6-14.8); WHITE BLOOD COUNT 6.2 K/UL (4.8-10.8)
--- NOTE | 2018-09-16 07:20 | NUR ---
HAND-OFF: Report given to Loretta Ambrose RN.
[2018-09-16 07:25] LABS: ANION GAP 8 mmol/L (5-15); BLOOD UREA NITROGEN 25 mg/dL (7-18); CALCIUM 8.9 MG/DL (8.5-10.1); CARBON DIOXIDE 24 MMOL/L (21-32); CHLORIDE 108 MMOL/L (98-107); CREATININE 1.3 MG/DL (0.55-1.30); SODIUM 140 MMOL/L (136-145)
--- NOTE | 2018-09-16 07:38 | General Progress Note ---
Assessment/Plan Problem List: (1) HIV (human immunodeficiency virus infection) ICD Codes: B20 - Human immunodeficiency virus [HIV] disease SNOMED: 36984299 (2) Diarrhea ICD Codes: R19.7 - Diarrhea, unspecified SNOMED: 82710436 (3) C. difficile colitis ICD Codes: A04.72 - Enterocolitis due to Clostridium difficile, not specified as recurrent SNOMED: 018448535 Assessment/Plan on treatment for C.diff>>>Dificid re ordered stool C.diff recent colonoscopy reviewed will fu Subjective ROS Limited/Unobtainable: Yes Allergies: Coded Allergies: CODEINE (Unverified Allergy, Unknown, 11/28/17) EMTRICITABINE (Verified Allergy, Unknown, anxiousness, 08/31/18) SULFAMETHOXAZOLE (Unverified Allergy, Unknown, 10/27/17) TENOFOVIR (Verified Allergy, Unknown, anxiousness, 08/31/18) TRIMETHOPRIM (Unverified Allergy, Unknown, 10/27/17) Objective Last 24 Hour Vital Signs Date Time Temp Pulse Resp B/P (MAP) Pulse Ox O2 Delivery O2 Flow Rate FiO2 09/16/18 04:00 97.6 78 19 112/74 (87) 94 09/16/18 00:00 99.3 79 21 127/78 (94) 94 09/15/18 22:02 83 116/73 09/15/18 21:00 Room Air 09/15/18 20:00 97.9 83 18 116/73 (87) 94 09/15/18 16:00 99.2 87 20 113/63 (80) 94 09/15/18 12:00 98.3 80 20 90/56 (67) 94 09/15/18 09:00 82 102/69 09/15/18 09:00 102/69 09/15/18 09:00 82 102/69 09/15/18 09:00 Room Air 09/15/18 08:00 99.2 82 20 102/69 (80) 94 Intake and Output 09/15/18 09/16/18 19:00 07:00 Intake Total 600 ml Balance 600 ml Intake Oral 600 ml # Voids 4 2 # Bowel Movements 2 2 Laboratory Tests 09/16/18 06:30: White Blood Count [Pending], Red Blood Count [Pending], Hemoglobin [Pending], Hematocrit [Pending], Mean Corpuscular Volume [Pending], Mean Corpuscular Hemoglobin [Pending], Mean Corpuscular Hemoglobin Concent [Pending], Red Cell Distribution Width [Pending], Platelet Count [Pending], Mean Platelet Volume [ Pending], Neutrophils (%) (Auto) [Pending], Lymphocytes (%) (Auto) [Pending], Monocytes (%) (Auto) [Pending], Eosinophils (%) (Auto) [Pending], Basophils (%) (Auto) [Pending], Sodium Level 140, Potassium Level 4.0, Chloride Level 108H, Carbon Dioxide Level 24, Anion Gap 8, Blood Urea Nitrogen 25H, Creatinine 1.3, Estimat Glomerular Filtration Rate 54.6, Glucose Level 94, Calcium Level 8.9 Height (Feet): 5 Height (Inches): 10.00 Weight (Pounds): 152 General Appearance: alert EENT: normal ENT inspection Neck: supple Cardiovascular: normal rate Respiratory/Chest: decreased breath sounds Abdomen: normal bowel sounds, non tender, soft Extremities: non-tender Dejan Germain MD Sep 16, 2018 07:37
--- NOTE | 2018-09-16 07:48 | NUR ---
NURSE NOTES: Patient alert x4, on room air, no sign of distress and shortness of breath; no sign of chest pain; left sided contracted; bed at lowest position; side rails up x2, breaks engaged; call light within reach; will keep monitoring.
--- NOTE | 2018-09-16 08:39 | NUR ---
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
[2018-09-16 08:42] VITALS: BP 121/71
[2018-09-16] MEDS: Metoprolol 25mg tab ORAL SCH ×2 (08:54→20:51)
[2018-09-16] MEDS: Meloxicam 15 MG TAB ORAL SCH (08:55)
[2018-09-16] MEDS: Atovaquone 750mg/5ml Susp ORAL SCH (08:55)
[2018-09-16] MEDS: Vitamin D 1000 IU Tab ORAL SCH (08:55)
[2018-09-16] MEDS: PARoxetine 20mg tab ORAL SCH (08:56)
[2018-09-16] MEDS: Losartan 50mg tab ORAL SCH (08:56)
[2018-09-16] MEDS: PREZISTA 600 MG ORAL SCH ×2 (08:57→17:23)
[2018-09-16] MEDS: INTELENCE 200 MG ORAL SCH ×2 (08:58→17:22)
[2018-09-16] MEDS: GENVOYA ORAL SCH (08:58)
[2018-09-16 12:00] VITALS: BP 115/72
--- NOTE | 2018-09-16 12:21 | Infectious Diseases Prog Note ---
Assessment/Plan Assessment/Plan Abx: None Assessment: Cdiff, ongoing diarrhea on oral vancomycin --09/06 Cdiff toxin a/b + -09/06 SP Colonoscopy: proctitis -stool cx: normal thomas -Giardia ag, cryptosporidium neg Nausea/vomiting, SP Afebrile No leukocytosis Recent UTI, s/p Rx -u/a wbc 10-15, shirley neg, leuk +3; ucx >100K PROTEUS MIRABILIS ( I Levo; R Amp, bactrim, Cipro, Nitro; S Ceftriaxone) HIV/AIDS- on ARV (per pt VL UD) -09/2018 182 (10.1%) -11/2017 CD4 323 hx of rectal CA CVA 2004 HTN Plan: -Cont Fidaxomicin #09/10 as patient not improved with oral vancomycin -09/13 SP PO Vancomycin #8 -f/u cx -Monitor CBC/CMP, temperatures -Contiue ARV (Genvoya, prezista, intelence)- if one medicine is missing, please hold all of them until all medicines are available -Atovaquone for PCP px -f/u HIV VL Thank you for this consultation. Will continue to follow along with you. Subjective Allergies: Coded Allergies: CODEINE (Unverified Allergy, Unknown, 11/28/17) EMTRICITABINE (Verified Allergy, Unknown, anxiousness, 08/31/18) SULFAMETHOXAZOLE (Unverified Allergy, Unknown, 10/27/17) TENOFOVIR (Verified Allergy, Unknown, anxiousness, 08/31/18) TRIMETHOPRIM (Unverified Allergy, Unknown, 10/27/17) Subjective afebrile no leukocytosis diarrhea improving Objective Vital Signs Last 24 Hour Vital Signs Date Time Temp Pulse Resp B/P (MAP) Pulse Ox O2 Delivery O2 Flow Rate FiO2 09/16/18 09:00 Room Air 09/16/18 08:56 121/71 09/16/18 08:55 83 121/71 09/16/18 08:54 83 121/71 09/16/18 08:42 97.6 83 20 121/71 (88) 94 09/16/18 04:00 97.6 78 19 112/74 (87) 94 09/16/18 00:00 99.3 79 21 127/78 (94) 94 09/15/18 22:02 83 116/73 09/15/18 21:00 Room Air 09/15/18 20:00 97.9 83 18 116/73 (87) 94 09/15/18 16:00 99.2 87 20 113/63 (80) 94 Height (Feet): 5 Height (Inches): 10.00 Weight (Pounds): 152 Objective Head: normocephalic, atraumatic Eyes: bilateral eye PERRL, bilateral eye EOMI ENT: dry mucus membranes Neck: supple Respiratory: lungs clear, no respiratory distress, no retraction, no accessory muscle use Cardiovascular #1: regular rate, rhythm Gastrointestinal: non tender, soft Musculoskeletal: other - Some contractures of the lower legs Neurologic: alert, oriented x3, responsive Skin: normal color, no rash Lymphatic: no adenopathy Microbiology Date/Time Source Procedure Growth Status 09/13/18 19:15 Nose MRSA Culture - Final NO METHICILLIN RESISTANT STAPH AUREUS... Complete 09/15/18 15:21 Stool Clostridium difficile Toxin Assay - Final Complete 09/13/18 19:15 Rectum VRE Culture - Final Enterococcus Faecium - Vre Complete 09/13/18 19:15 Rectum - Final NO CARBAPENEM-RESISTANT ENTEROBACTERI... Complete Laboratory Tests Test 09/16/18 06:30 White Blood Count 6.2 K/UL (4.8-10.8) Red Blood Count 3.66 M/UL (4.70-6.10) L Hemoglobin 12.3 G/DL (14.2-18.0) L Hematocrit 35.7 % (42.0-52.0) L Mean Corpuscular Volume 98 FL (80-99) Mean Corpuscular Hemoglobin 33.7 PG (27.0-31.0) H Mean Corpuscular Hemoglobin Concent 34.5 G/DL (32.0-36.0) Red Cell Distribution Width 12.3 % (11.6-14.8) Platelet Count 218 K/UL (150-450) Mean Platelet Volume 7.9 FL (6.5-10.1) Neutrophils (%) (Auto) 59.5 % (45.0-75.0) Lymphocytes (%) (Auto) 29.9 % (20.0-45.0) Monocytes (%) (Auto) 7.9 % (1.0-10.0) Eosinophils (%) (Auto) 2.1 % (0.0-3.0) Basophils (%) (Auto) 0.5 % (0.0-2.0) Sodium Level 140 MMOL/L (136-145) Potassium Level 4.0 MMOL/L (3.5-5.1) Chloride Level 108 MMOL/L (98-107) H Carbon Dioxide Level 24 MMOL/L (21-32) Anion Gap 8 mmol/L (5-15) Blood Urea Nitrogen 25 mg/dL (7-18) H Creatinine 1.3 MG/DL (0.55-1.30) Estimat Glomerular Filtration Rate 54.6 mL/min (>60) Glucose Level 94 MG/DL (74-106) Calcium Level 8.9 MG/DL (8.5-10.1) Current Medications Medications (Trade) Dose Ordered Sig/Roman Route PRN Reason Start Time Stop Time Status Last Admin Dose Admin Acetaminophen (Tylenol) 650 mg Q4H PRN ORAL fever (temp>100.5F) 09/13/18 18:00 10/13/18 17:59 Al Hydroxide/Mg Hydroxide (Mylanta II) 30 ml Q6H PRN ORAL dyspepsia 09/13/18 18:00 10/13/18 17:59 Alendronate Sodium (Fosamax) 70 mg ONCE A WEEK ORAL 09/17/18 09:00 10/17/18 08:59 Amlodipine Besylate (Norvasc) 10 mg DAILY ORAL 09/14/18 09:00 10/14/18 08:59 09/16/18 08:55 Atovaquone (Mepron Susp) 1,500 mg DAILY ORAL 09/14/18 12:00 10/14/18 11:59 09/16/18 08:55 Baclofen (Lioresal) 10 mg THREE TIMES A DAY PRN ORAL Muscle Spasm 09/13/18 23:15 10/13/18 23:14 Calcium Carbonate (Os-Fazal) 500 mg DAILY ORAL 09/14/18 09:00 10/14/18 08:59 09/16/18 08:56 Clotrimazole (Lotrimin) 1 applic TWICE A DAY TOPIC 09/14/18 09:00 10/14/18 08:59 09/16/18 08:59 Dextrose (Dextrose 50%) 25 ml Q30M PRN IV Hypoglycemia 09/13/18 18:00 10/13/18 17:54 Dextrose (Dextrose 50%) 50 ml Q30M PRN IV hypoglycemia 09/13/18 18:00 10/13/18 17:59 Fidaxomicin (Dificid) 200 mg EVERY 12 HOURS ORAL 09/14/18 21:00 09/21/18 20:59 09/16/18 09:00 Finasteride (Proscar) 5 mg DAILY ORAL 09/14/18 09:00 10/14/18 08:59 09/16/18 08:56 Lorazepam (Ativan 2mg/ml 1ml) 0.5 mg Q4H PRN IV For Anxiety 09/13/18 18:00 09/20/18 17:59 Lorazepam (Ativan) 1 mg TWICE A DAY PRN ORAL For Anxiety 09/13/18 23:15 09/20/18 23:14 Losartan Potassium (Cozaar) 50 mg DAILY ORAL 09/14/18 09:00 10/14/18 08:59 09/16/18 08:56 Meloxicam (Mobic) 15 mg DAILY ORAL 09/14/18 09:00 10/14/18 08:59 09/16/18 08:55 Metoprolol Tartrate (Lopressor) 25 mg EVERY 12 HOURS ORAL 09/14/18 09:00 10/14/18 08:59 09/16/18 08:54 Mirtazapine (Remeron) 15 mg BEDTIME ORAL 09/14/18 21:00 10/14/18 20:59 09/15/18 22:02 Morphine Sulfate (Morphine Sulfate) 4 mg Q4H PRN IVP Severe Pain (Pain Scale 7-10) 09/13/18 23:00 09/20/18 22:59 09/16/18 03:36 Ondansetron HCl (Zofran ODT) 8 mg Q6H PRN ORAL Nausea & Vomiting 09/13/18 23:15 10/13/18 23:14 Ondansetron HCl (Zofran) 4 mg Q6H PRN IVP Nausea & Vomiting 09/13/18 18:00 10/13/18 17:59 09/14/18 03:09 Paroxetine HCl (Paxil) 40 mg DAILY ORAL 09/14/18 09:00 10/14/18 08:59 09/16/18 08:56 Patient Own Medication (Patient's Own Med) 1 ea BID ORAL 09/14/18 18:00 10/14/18 17:59 09/16/18 08:57 Patient Own Medication (Patient's Own Med) 1 ea BID ORAL 09/14/18 18:00 10/14/18 17:59 09/16/18 08:58 Patient Own Medication (Patient's Own Med) 1 ea DAILY ORAL 09/15/18 15:00 10/15/18 14:59 09/16/18 08:58 Tamsulosin HCl (Flomax) 0.4 mg BEDTIME ORAL 09/14/18 21:00 10/14/18 20:59 09/15/18 22:02 Vitamin D (Vitamin D) 2,000 intlu DAILY ORAL 09/14/18 09:00 10/14/18 08:59 09/16/18 08:55 Zolpidem Tartrate (Ambien) 5 mg HSPRN PRN ORAL Insomnia 09/13/18 18:00 09/20/18 17:59 Miranda Cordero M.D. Sep 16, 2018 12:21
[2018-09-16 16:00] VITALS: BP 109/70
--- NOTE | 2018-09-16 16:48 | Internal Med Progress Note ---
Subjective Physician Name Carlos Barragan Attending Physician Carlos Barragan MD Current Medications Medications (Trade) Dose Ordered Sig/Roman Route PRN Reason Start Time Stop Time Status Last Admin Dose Admin Acetaminophen (Tylenol) 650 mg Q4H PRN ORAL fever (temp>100.5F) 09/13/18 18:00 10/13/18 17:59 Al Hydroxide/Mg Hydroxide (Mylanta II) 30 ml Q6H PRN ORAL dyspepsia 09/13/18 18:00 10/13/18 17:59 Alendronate Sodium (Fosamax) 70 mg ONCE A WEEK ORAL 09/17/18 09:00 10/17/18 08:59 Amlodipine Besylate (Norvasc) 10 mg DAILY ORAL 09/14/18 09:00 10/14/18 08:59 09/16/18 08:55 Atovaquone (Mepron Susp) 1,500 mg DAILY ORAL 09/14/18 12:00 10/14/18 11:59 09/16/18 08:55 Baclofen (Lioresal) 10 mg THREE TIMES A DAY PRN ORAL Muscle Spasm 09/13/18 23:15 10/13/18 23:14 Calcium Carbonate (Os-Fazal) 500 mg DAILY ORAL 09/14/18 09:00 10/14/18 08:59 09/16/18 08:56 Clotrimazole (Lotrimin) 1 applic TWICE A DAY TOPIC 09/14/18 09:00 10/14/18 08:59 09/16/18 08:59 Dextrose (Dextrose 50%) 25 ml Q30M PRN IV Hypoglycemia 09/13/18 18:00 10/13/18 17:54 Dextrose (Dextrose 50%) 50 ml Q30M PRN IV hypoglycemia 09/13/18 18:00 10/13/18 17:59 Fidaxomicin (Dificid) 200 mg EVERY 12 HOURS ORAL 09/14/18 21:00 09/21/18 20:59 09/16/18 09:00 Finasteride (Proscar) 5 mg DAILY ORAL 09/14/18 09:00 10/14/18 08:59 09/16/18 08:56 Lorazepam (Ativan 2mg/ml 1ml) 0.5 mg Q4H PRN IV For Anxiety 09/13/18 18:00 09/20/18 17:59 Lorazepam (Ativan) 1 mg TWICE A DAY PRN ORAL For Anxiety 09/13/18 23:15 09/20/18 23:14 Losartan Potassium (Cozaar) 50 mg DAILY ORAL 09/14/18 09:00 10/14/18 08:59 09/16/18 08:56 Meloxicam (Mobic) 15 mg DAILY ORAL 09/14/18 09:00 10/14/18 08:59 09/16/18 08:55 Metoprolol Tartrate (Lopressor) 25 mg EVERY 12 HOURS ORAL 09/14/18 09:00 10/14/18 08:59 09/16/18 08:54 Mirtazapine (Remeron) 15 mg BEDTIME ORAL 09/14/18 21:00 10/14/18 20:59 09/15/18 22:02 Morphine Sulfate (Morphine Sulfate) 4 mg Q4H PRN IVP Severe Pain (Pain Scale 7-10) 09/13/18 23:00 09/20/18 22:59 09/16/18 13:48 Ondansetron HCl (Zofran ODT) 8 mg Q6H PRN ORAL Nausea & Vomiting 09/13/18 23:15 10/13/18 23:14 Ondansetron HCl (Zofran) 4 mg Q6H PRN IVP Nausea & Vomiting 09/13/18 18:00 10/13/18 17:59 09/16/18 13:47 Paroxetine HCl (Paxil) 40 mg DAILY ORAL 09/14/18 09:00 10/14/18 08:59 09/16/18 08:56 Patient Own Medication (Patient's Own Med) 1 ea BID ORAL 09/14/18 18:00 10/14/18 17:59 09/16/18 08:57 Patient Own Medication (Patient's Own Med) 1 ea BID ORAL 09/14/18 18:00 10/14/18 17:59 09/16/18 08:58 Patient Own Medication (Patient's Own Med) 1 ea DAILY ORAL 09/15/18 15:00 10/15/18 14:59 09/16/18 08:58 Tamsulosin HCl (Flomax) 0.4 mg BEDTIME ORAL 09/14/18 21:00 10/14/18 20:59 09/15/18 22:02 Vitamin D (Vitamin D) 2,000 intlu DAILY ORAL 09/14/18 09:00 10/14/18 08:59 09/16/18 08:55 Zolpidem Tartrate (Ambien) 5 mg HSPRN PRN ORAL Insomnia 09/13/18 18:00 09/20/18 17:59 Allergies: Coded Allergies: CODEINE (Unverified Allergy, Unknown, 11/28/17) EMTRICITABINE (Verified Allergy, Unknown, anxiousness, 08/31/18) SULFAMETHOXAZOLE (Unverified Allergy, Unknown, 10/27/17) TENOFOVIR (Verified Allergy, Unknown, anxiousness, 08/31/18) TRIMETHOPRIM (Unverified Allergy, Unknown, 10/27/17) Subjective awake, alert, responsive, no acute distress, complaining about diarrhea, and urine incontinent. Objective Last Vital Signs Date Time Temp Pulse Resp B/P (MAP) Pulse Ox O2 Delivery O2 Flow Rate FiO2 09/16/18 14:18 97.6 09/16/18 12:00 70 18 115/72 (86) 95 09/16/18 09:00 Room Air Laboratory Tests Test 09/16/18 06:30 White Blood Count 6.2 K/UL (4.8-10.8) Red Blood Count 3.66 M/UL (4.70-6.10) L Hemoglobin 12.3 G/DL (14.2-18.0) L Hematocrit 35.7 % (42.0-52.0) L Mean Corpuscular Volume 98 FL (80-99) Mean Corpuscular Hemoglobin 33.7 PG (27.0-31.0) H Mean Corpuscular Hemoglobin Concent 34.5 G/DL (32.0-36.0) Red Cell Distribution Width 12.3 % (11.6-14.8) Platelet Count 218 K/UL (150-450) Mean Platelet Volume 7.9 FL (6.5-10.1) Neutrophils (%) (Auto) 59.5 % (45.0-75.0) Lymphocytes (%) (Auto) 29.9 % (20.0-45.0) Monocytes (%) (Auto) 7.9 % (1.0-10.0) Eosinophils (%) (Auto) 2.1 % (0.0-3.0) Basophils (%) (Auto) 0.5 % (0.0-2.0) Sodium Level 140 MMOL/L (136-145) Potassium Level 4.0 MMOL/L (3.5-5.1) Chloride Level 108 MMOL/L (98-107) H Carbon Dioxide Level 24 MMOL/L (21-32) Anion Gap 8 mmol/L (5-15) Blood Urea Nitrogen 25 mg/dL (7-18) H Creatinine 1.3 MG/DL (0.55-1.30) Estimat Glomerular Filtration Rate 54.6 mL/min (>60) Glucose Level 94 MG/DL (74-106) Calcium Level 8.9 MG/DL (8.5-10.1) Microbiology Date/Time Source Procedure Growth Status 09/13/18 19:15 Nose MRSA Culture - Final NO METHICILLIN RESISTANT STAPH AUREUS... Complete 09/15/18 15:21 Stool Clostridium difficile Toxin Assay - Final Complete 09/13/18 19:15 Rectum VRE Culture - Final Enterococcus Faecium - Vre Complete 09/13/18 19:15 Rectum - Final NO CARBAPENEM-RESISTANT ENTEROBACTERI... Complete Intake and Output 09/15/18 09/16/18 19:00 07:00 Intake Total 600 ml Balance 600 ml Intake Oral 600 ml # Voids 4 2 # Bowel Movements 2 2 Objective General: No acute distress, awake and alert HEENT: NCAT, sclera anicteric, PERRL, EOMI. Neck: Supple, no significant jugular venous distention, Lungs: fair inspiratory effort, decreased air in the bases, no Wheeze or Rales. Heart: Regular rate and rhythm, normal S1/S2, no murmur. Abdomen: soft, nontender, nondistended. Normoactive bowel sounds. / Rectal: Refused and deferred. Extremities: No Cyanosis , clubbing or edema, contracted lower extremity. Neuro: A&O x 3, Able to move all extremities Skin: warm, no rash. Psych: Normal mood and affect Assessment/Plan Assessment/Plan Cdiff, ongoing diarrhea on oral vancomycin --3/6 Cdiff toxin a/b + -3/6 SP Colonoscopy: proctitis -stool cx: normal thomas -Giardia ag, cryptosporidium neg Nausea/vomiting, SP Recent UTI, s/p complete Abx therapy. HIV/AIDS- on ARV (per pt VL UD) -09/2018 182 (10.1%) -11/2017 CD4 323 Hx of rectal CA CVA 2004 HTN Plan: -Cont Fidaxomicin #09/10 as patient not improved with oral vancomycin -09/13 SP PO Vancomycin #8 -f/u cx -DVT prophylaxis with heparin subcu. -Contiue ARV (Genvoya, prezista, intelence) -Atovaquone for PCP px -Monitor Lab. Carlos Barragan MD Sep 16, 2018 16:48
--- NOTE | 2018-09-16 17:13 | Pulmonology Progress Note ---
Assessment/Plan Problems: (1) C. difficile colitis (2) Severe protein-calorie malnutrition (3) HIV (human immunodeficiency virus infection) (4) ATN (acute tubular necrosis) (5) History of rectal cancer Assessment/Plan Cdiff negative slightly better still has diarrhea refusing to go to rehab iv fluids iv abx check electrolytes symptomatic treatment Subjective ROS Limited/Unobtainable: No Allergies: Coded Allergies: CODEINE (Unverified Allergy, Unknown, 11/28/17) EMTRICITABINE (Verified Allergy, Unknown, anxiousness, 08/31/18) SULFAMETHOXAZOLE (Unverified Allergy, Unknown, 10/27/17) TENOFOVIR (Verified Allergy, Unknown, anxiousness, 08/31/18) TRIMETHOPRIM (Unverified Allergy, Unknown, 10/27/17) Objective Last 24 Hour Vital Signs Date Time Temp Pulse Resp B/P (MAP) Pulse Ox O2 Delivery O2 Flow Rate FiO2 09/16/18 16:00 98.5 77 18 109/70 (83) 94 09/16/18 14:18 97.6 09/16/18 12:00 98.1 70 18 115/72 (86) 95 09/16/18 09:00 Room Air 09/16/18 08:56 121/71 09/16/18 08:55 83 121/71 09/16/18 08:54 83 121/71 09/16/18 08:42 97.6 83 20 121/71 (88) 94 09/16/18 04:00 97.6 78 19 112/74 (87) 94 09/16/18 00:00 99.3 79 21 127/78 (94) 94 09/15/18 22:02 83 116/73 09/15/18 21:00 Room Air 09/15/18 20:00 97.9 83 18 116/73 (87) 94 Intake and Output 09/15/18 09/16/18 19:00 07:00 Intake Total 600 ml Balance 600 ml Intake Oral 600 ml # Voids 4 2 # Bowel Movements 2 2 Objective General Appearance: WD/WN HEENT: normocephalic, atraumatic Respiratory/Chest: chest wall non-tender, lungs clear Cardiovascular: normal peripheral pulses, normal rate Abdomen: normal bowel sounds, soft, non tender Extremities: no cyanosis Skin: no ulcers Microbiology Date/Time Source Procedure Growth Status 09/13/18 19:15 Nose MRSA Culture - Final NO METHICILLIN RESISTANT STAPH AUREUS... Complete 09/15/18 15:21 Stool Clostridium difficile Toxin Assay - Final Complete 09/13/18 19:15 Rectum VRE Culture - Final Enterococcus Faecium - Vre Complete 09/13/18 19:15 Rectum - Final NO CARBAPENEM-RESISTANT ENTEROBACTERI... Complete Laboratory Tests 09/16/18 06:30: White Blood Count 6.2, Red Blood Count 3.66L, Hemoglobin 12.3L, Hematocrit 35.7L , Mean Corpuscular Volume 98, Mean Corpuscular Hemoglobin 33.7H, Mean Corpuscular Hemoglobin Concent 34.5, Red Cell Distribution Width 12.3, Platelet Count 218, Mean Platelet Volume 7.9, Neutrophils (%) (Auto) 59.5, Lymphocytes (% ) (Auto) 29.9, Monocytes (%) (Auto) 7.9, Eosinophils (%) (Auto) 2.1, Basophils ( %) (Auto) 0.5, Sodium Level 140, Potassium Level 4.0, Chloride Level 108H, Carbon Dioxide Level 24, Anion Gap 8, Blood Urea Nitrogen 25H, Creatinine 1.3, Estimat Glomerular Filtration Rate 54.6, Glucose Level 94, Calcium Level 8.9 Current Medications Medications (Trade) Dose Ordered Sig/Roman Route PRN Reason Start Time Stop Time Status Last Admin Dose Admin Acetaminophen (Tylenol) 650 mg Q4H PRN ORAL fever (temp>100.5F) 09/13/18 18:00 10/13/18 17:59 Al Hydroxide/Mg Hydroxide (Mylanta II) 30 ml Q6H PRN ORAL dyspepsia 09/13/18 18:00 10/13/18 17:59 Amlodipine Besylate (Norvasc) 10 mg DAILY ORAL 09/14/18 09:00 10/14/18 08:59 09/16/18 08:55 Atovaquone (Mepron Susp) 1,500 mg DAILY ORAL 09/14/18 12:00 10/14/18 11:59 09/16/18 08:55 Baclofen (Lioresal) 10 mg THREE TIMES A DAY PRN ORAL Muscle Spasm 09/13/18 23:15 10/13/18 23:14 Calcium Carbonate (Os-Fazal) 500 mg DAILY ORAL 09/14/18 09:00 10/14/18 08:59 09/16/18 08:56 Clotrimazole (Lotrimin) 1 applic TWICE A DAY TOPIC 09/14/18 09:00 10/14/18 08:59 09/16/18 08:59 Dextrose (Dextrose 50%) 25 ml Q30M PRN IV Hypoglycemia 09/13/18 18:00 10/13/18 17:54 Dextrose (Dextrose 50%) 50 ml Q30M PRN IV hypoglycemia 09/13/18 18:00 10/13/18 17:59 Fidaxomicin (Dificid) 200 mg EVERY 12 HOURS ORAL 09/14/18 21:00 09/21/18 20:59 09/16/18 09:00 Finasteride (Proscar) 5 mg DAILY ORAL 09/14/18 09:00 10/14/18 08:59 09/16/18 08:56 Heparin Sodium (Porcine) (Heparin 5000 units/ml) 5,000 units EVERY 8 HOURS SUBQ 09/16/18 22:00 10/16/18 21:59 Lorazepam (Ativan 2mg/ml 1ml) 0.5 mg Q4H PRN IV For Anxiety 09/13/18 18:00 09/20/18 17:59 Lorazepam (Ativan) 1 mg TWICE A DAY PRN ORAL For Anxiety 09/13/18 23:15 09/20/18 23:14 Losartan Potassium (Cozaar) 50 mg DAILY ORAL 09/14/18 09:00 10/14/18 08:59 09/16/18 08:56 Meloxicam (Mobic) 15 mg DAILY ORAL 09/14/18 09:00 10/14/18 08:59 09/16/18 08:55 Metoprolol Tartrate (Lopressor) 25 mg EVERY 12 HOURS ORAL 09/14/18 09:00 10/14/18 08:59 09/16/18 08:54 Mirtazapine (Remeron) 15 mg BEDTIME ORAL 09/14/18 21:00 10/14/18 20:59 09/15/18 22:02 Morphine Sulfate (Morphine Sulfate) 4 mg Q4H PRN IVP Severe Pain (Pain Scale 7-10) 09/13/18 23:00 09/20/18 22:59 09/16/18 13:48 Ondansetron HCl (Zofran ODT) 8 mg Q6H PRN ORAL Nausea & Vomiting 09/13/18 23:15 10/13/18 23:14 Ondansetron HCl (Zofran) 4 mg Q6H PRN IVP Nausea & Vomiting 09/13/18 18:00 10/13/18 17:59 09/16/18 13:47 Paroxetine HCl (Paxil) 40 mg DAILY ORAL 09/14/18 09:00 10/14/18 08:59 09/16/18 08:56 Patient Own Medication (Patient's Own Med) 1 ea BID ORAL 09/14/18 18:00 10/14/18 17:59 09/16/18 08:57 Patient Own Medication (Patient's Own Med) 1 ea BID ORAL 09/14/18 18:00 10/14/18 17:59 09/16/18 08:58 Patient Own Medication (Patient's Own Med) 1 ea DAILY ORAL 09/15/18 15:00 10/15/18 14:59 09/16/18 08:58 Tamsulosin HCl (Flomax) 0.4 mg BEDTIME ORAL 09/14/18 21:00 10/14/18 20:59 09/15/18 22:02 Vitamin D (Vitamin D) 2,000 intlu DAILY ORAL 09/14/18 09:00 10/14/18 08:59 09/16/18 08:55 Zolpidem Tartrate (Ambien) 5 mg HSPRN PRN ORAL Insomnia 09/13/18 18:00 09/20/18 17:59 Oliverio Rm MD Sep 16, 2018 17:13
--- NOTE | 2018-09-16 19:36 | NUR ---
HAND-OFF: Report given to CHARLEY Hahn.
[2018-09-16 20:00] VITALS: BP 109/64
[2018-09-16] MEDS: Tamsulosin 0.4mg cap ORAL SCH (21:07)
[2018-09-16] MEDS: Heparin 5000 units/ml inj SUBQ SCH (21:13)
[2018-09-17] VITALS: BP 110/67
[2018-09-17] MEDS: LORazepam Inj 2mg/ml 1ml IV PRN (03:22)
[2018-09-17 04:00] VITALS: BP 121/74
[2018-09-17] MEDS: Heparin 5000 units/ml inj SUBQ SCH ×3 (05:53→21:17)
[2018-09-17] MEDS: Morphine Sulfate 4mg/ml Inj (IV USE ONLY) IVP PRN ×3 (06:10→23:36)
--- NOTE | 2018-09-17 07:14 | NUR ---
HAND-OFF: Report given to Loretta WHITEHEAD.
--- NOTE | 2018-09-17 07:26 | NUR ---
NURSE NOTES: Patient alert x4, on room air, no sign of shortness of breath, no sign of distress and no sing of chest pain; IV Left AC, flushes well; bed at low potion, side rails up x2, breaks engaged; call light within reach. Will keep monitoring.
[2018-09-17 07:42] LABS: BASOPHILS % (AUTO) 0.8 % (0.0-2.0); EOSINOPHILS % (AUTO) 1.8 % (0.0-3.0); HEMATOCRIT 36.7 % (42.0-52.0); HEMOGLOBIN 12.8 G/DL (14.2-18.0); LYMPHOCYTES % (AUTO) 30.8 % (20.0-45.0); MEAN CORPUSCULAR VOLUME 98 FL (80-99); MONOCYTES % (AUTO) 6.6 % (1.0-10.0); NEUTROPHILS % (AUTO) 59.9 % (45.0-75.0); PLATELET COUNT 228 K/UL (150-450); RED BLOOD COUNT 3.75 M/UL (4.70-6.10); RED CELL DISTRIBUTION WIDTH 12.3 % (11.6-14.8); WHITE BLOOD COUNT 7.9 K/UL (4.8-10.8)
[2018-09-17 08:00] VITALS: BP 114/67
[2018-09-17 08:02] LABS: ANION GAP 8 mmol/L (5-15); BLOOD UREA NITROGEN 27 mg/dL (7-18); CALCIUM 8.7 MG/DL (8.5-10.1); CARBON DIOXIDE 24 MMOL/L (21-32); CHLORIDE 107 MMOL/L (98-107); CREATININE 1.3 MG/DL (0.55-1.30); POTASSIUM 4.7 MMOL/L (3.5-5.1); SODIUM 139 MMOL/L (136-145)
[2018-09-17] MEDS: Atovaquone 750mg/5ml Susp ORAL SCH (08:39)
[2018-09-17] MEDS: Vitamin D 1000 IU Tab ORAL SCH (08:40)
[2018-09-17] MEDS: PARoxetine 20mg tab ORAL SCH (08:40)
[2018-09-17] MEDS: Metoprolol 25mg tab ORAL SCH ×2 (08:40→20:49)
[2018-09-17] MEDS: Losartan 50mg tab ORAL SCH (08:40)
[2018-09-17] MEDS: Meloxicam 15 MG TAB ORAL SCH (08:40)
[2018-09-17] MEDS: GENVOYA ORAL SCH (08:41)
[2018-09-17] MEDS: PREZISTA 600 MG ORAL SCH ×2 (08:42→17:12)
[2018-09-17] MEDS: INTELENCE 200 MG ORAL SCH ×2 (08:42→17:13)
--- NOTE | 2018-09-17 08:49 | NUR ---
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
[2018-09-17 12:00] VITALS: BP 116/76
--- NOTE | 2018-09-17 12:00 | General Progress Note ---
Assessment/Plan Problem List: (1) HIV (human immunodeficiency virus infection) ICD Codes: B20 - Human immunodeficiency virus [HIV] disease SNOMED: 42610826 (2) Diarrhea ICD Codes: R19.7 - Diarrhea, unspecified SNOMED: 56278936 (3) C. difficile colitis ICD Codes: A04.72 - Enterocolitis due to Clostridium difficile, not specified as recurrent SNOMED: 116326607 Assessment/Plan on treatment for C.diff>>>Dificid re ordered stool C.diff recent colonoscopy reviewed will fu Subjective ROS Limited/Unobtainable: Yes Allergies: Coded Allergies: CODEINE (Unverified Allergy, Unknown, 11/28/17) EMTRICITABINE (Verified Allergy, Unknown, anxiousness, 08/31/18) SULFAMETHOXAZOLE (Unverified Allergy, Unknown, 10/27/17) TENOFOVIR (Verified Allergy, Unknown, anxiousness, 08/31/18) TRIMETHOPRIM (Unverified Allergy, Unknown, 10/27/17) Subjective still having diarrhea Objective Last 24 Hour Vital Signs Date Time Temp Pulse Resp B/P (MAP) Pulse Ox O2 Delivery O2 Flow Rate FiO2 09/17/18 09:00 Room Air 09/17/18 08:41 90 114/67 09/17/18 08:40 90 114/67 09/17/18 08:40 114/67 09/17/18 08:00 98.2 90 18 114/67 (83) 92 09/17/18 04:00 98.5 78 18 121/74 (90) 94 09/17/18 00:00 98.3 82 18 110/67 (81) 93 09/16/18 21:00 Room Air 09/16/18 20:51 85 109/64 09/16/18 20:00 98.6 85 19 109/64 (79) 93 09/16/18 16:00 98.5 77 18 109/70 (83) 94 09/16/18 14:18 97.6 09/16/18 12:00 98.1 70 18 115/72 (86) 95 Intake and Output 09/16/18 09/17/18 19:00 07:00 Intake Total 1400 ml Balance 1400 ml Intake Oral 500 ml Other 900 ml # Voids 2 # Bowel Movements 4 Laboratory Tests 09/17/18 06:55: White Blood Count 7.9, Red Blood Count 3.75L, Hemoglobin 12.8L, Hematocrit 36.7L , Mean Corpuscular Volume 98, Mean Corpuscular Hemoglobin 34.1H, Mean Corpuscular Hemoglobin Concent 34.8, Red Cell Distribution Width 12.3, Platelet Count 228, Mean Platelet Volume 7.2, Neutrophils (%) (Auto) 59.9, Lymphocytes (% ) (Auto) 30.8, Monocytes (%) (Auto) 6.6, Eosinophils (%) (Auto) 1.8, Basophils ( %) (Auto) 0.8, Sodium Level 139, Potassium Level 4.7, Chloride Level 107, Carbon Dioxide Level 24, Anion Gap 8, Blood Urea Nitrogen 27H, Creatinine 1.3, Estimat Glomerular Filtration Rate 54.6, Glucose Level 87, Calcium Level 8.7 Height (Feet): 5 Height (Inches): 10.00 Weight (Pounds): 152 General Appearance: alert EENT: normal ENT inspection Neck: supple Cardiovascular: normal rate Respiratory/Chest: decreased breath sounds Abdomen: normal bowel sounds, non tender, soft Extremities: non-tender Dejan Germain MD Sep 17, 2018 12:00
--- NOTE | 2018-09-17 15:20 | Internal Med Progress Note ---
Subjective Physician Name Carlos Barragan Attending Physician Carlos Barragan MD Current Medications Medications (Trade) Dose Ordered Sig/Roman Route PRN Reason Start Time Stop Time Status Last Admin Dose Admin Acetaminophen (Tylenol) 650 mg Q4H PRN ORAL fever (temp>100.5F) 09/13/18 18:00 10/13/18 17:59 Al Hydroxide/Mg Hydroxide (Mylanta II) 30 ml Q6H PRN ORAL dyspepsia 09/13/18 18:00 10/13/18 17:59 Amlodipine Besylate (Norvasc) 10 mg DAILY ORAL 09/14/18 09:00 10/14/18 08:59 09/17/18 08:41 Atovaquone (Mepron Susp) 1,500 mg DAILY ORAL 09/14/18 12:00 10/14/18 11:59 09/17/18 08:39 Baclofen (Lioresal) 10 mg THREE TIMES A DAY PRN ORAL Muscle Spasm 09/13/18 23:15 10/13/18 23:14 Calcium Carbonate (Os-Fazal) 500 mg DAILY ORAL 09/14/18 09:00 10/14/18 08:59 09/17/18 08:39 Clotrimazole (Lotrimin) 1 applic TWICE A DAY TOPIC 09/14/18 09:00 10/14/18 08:59 09/17/18 08:41 Dextrose (Dextrose 50%) 25 ml Q30M PRN IV Hypoglycemia 09/13/18 18:00 10/13/18 17:54 Dextrose (Dextrose 50%) 50 ml Q30M PRN IV hypoglycemia 09/13/18 18:00 10/13/18 17:59 Fidaxomicin (Dificid) 200 mg EVERY 12 HOURS ORAL 09/14/18 21:00 09/21/18 20:59 09/17/18 08:43 Finasteride (Proscar) 5 mg DAILY ORAL 09/14/18 09:00 10/14/18 08:59 09/17/18 08:40 Heparin Sodium (Porcine) (Heparin 5000 units/ml) 5,000 units EVERY 8 HOURS SUBQ 09/16/18 22:00 10/16/18 21:59 09/17/18 13:15 Lorazepam (Ativan 2mg/ml 1ml) 0.5 mg Q4H PRN IV For Anxiety 09/13/18 18:00 09/20/18 17:59 09/17/18 03:22 Lorazepam (Ativan) 1 mg TWICE A DAY PRN ORAL For Anxiety 09/13/18 23:15 09/20/18 23:14 Losartan Potassium (Cozaar) 50 mg DAILY ORAL 09/14/18 09:00 10/14/18 08:59 09/17/18 08:40 Meloxicam (Mobic) 15 mg DAILY ORAL 09/14/18 09:00 10/14/18 08:59 09/17/18 08:40 Metoprolol Tartrate (Lopressor) 25 mg EVERY 12 HOURS ORAL 09/14/18 09:00 10/14/18 08:59 09/17/18 08:40 Mirtazapine (Remeron) 15 mg BEDTIME ORAL 09/14/18 21:00 10/14/18 20:59 09/16/18 21:07 Morphine Sulfate (Morphine Sulfate) 4 mg Q4H PRN IVP Severe Pain (Pain Scale 7-10) 09/13/18 23:00 09/20/18 22:59 09/17/18 11:23 Ondansetron HCl (Zofran ODT) 8 mg Q6H PRN ORAL Nausea & Vomiting 09/13/18 23:15 10/13/18 23:14 Ondansetron HCl (Zofran) 4 mg Q6H PRN IVP Nausea & Vomiting 09/13/18 18:00 10/13/18 17:59 09/16/18 13:47 Paroxetine HCl (Paxil) 40 mg DAILY ORAL 09/14/18 09:00 10/14/18 08:59 09/17/18 08:40 Patient Own Medication (Patient's Own Med) 1 ea BID ORAL 09/14/18 18:00 10/14/18 17:59 09/17/18 08:42 Patient Own Medication (Patient's Own Med) 1 ea BID ORAL 09/14/18 18:00 10/14/18 17:59 09/17/18 08:42 Patient Own Medication (Patient's Own Med) 1 ea DAILY ORAL 09/15/18 15:00 10/15/18 14:59 09/17/18 08:41 Tamsulosin HCl (Flomax) 0.4 mg BEDTIME ORAL 09/14/18 21:00 10/14/18 20:59 09/16/18 21:07 Vitamin D (Vitamin D) 2,000 intlu DAILY ORAL 09/14/18 09:00 10/14/18 08:59 09/17/18 08:40 Zolpidem Tartrate (Ambien) 5 mg HSPRN PRN ORAL Insomnia 09/13/18 18:00 09/20/18 17:59 Allergies: Coded Allergies: CODEINE (Unverified Allergy, Unknown, 11/28/17) EMTRICITABINE (Verified Allergy, Unknown, anxiousness, 08/31/18) SULFAMETHOXAZOLE (Unverified Allergy, Unknown, 10/27/17) TENOFOVIR (Verified Allergy, Unknown, anxiousness, 08/31/18) TRIMETHOPRIM (Unverified Allergy, Unknown, 10/27/17) Subjective awake, alert, responsive, no acute distress,+ diarrhea and urine incontinent. Objective Last Vital Signs Date Time Temp Pulse Resp B/P (MAP) Pulse Ox O2 Delivery O2 Flow Rate FiO2 09/17/18 12:00 98.2 94 18 116/76 (89) 93 09/17/18 09:00 Room Air Laboratory Tests Test 09/17/18 06:55 White Blood Count 7.9 K/UL (4.8-10.8) Red Blood Count 3.75 M/UL (4.70-6.10) L Hemoglobin 12.8 G/DL (14.2-18.0) L Hematocrit 36.7 % (42.0-52.0) L Mean Corpuscular Volume 98 FL (80-99) Mean Corpuscular Hemoglobin 34.1 PG (27.0-31.0) H Mean Corpuscular Hemoglobin Concent 34.8 G/DL (32.0-36.0) Red Cell Distribution Width 12.3 % (11.6-14.8) Platelet Count 228 K/UL (150-450) Mean Platelet Volume 7.2 FL (6.5-10.1) Neutrophils (%) (Auto) 59.9 % (45.0-75.0) Lymphocytes (%) (Auto) 30.8 % (20.0-45.0) Monocytes (%) (Auto) 6.6 % (1.0-10.0) Eosinophils (%) (Auto) 1.8 % (0.0-3.0) Basophils (%) (Auto) 0.8 % (0.0-2.0) Sodium Level 139 MMOL/L (136-145) Potassium Level 4.7 MMOL/L (3.5-5.1) Chloride Level 107 MMOL/L (98-107) Carbon Dioxide Level 24 MMOL/L (21-32) Anion Gap 8 mmol/L (5-15) Blood Urea Nitrogen 27 mg/dL (7-18) H Creatinine 1.3 MG/DL (0.55-1.30) Estimat Glomerular Filtration Rate 54.6 mL/min (>60) Glucose Level 87 MG/DL (74-106) Calcium Level 8.7 MG/DL (8.5-10.1) Microbiology Date/Time Source Procedure Growth Status 09/15/18 15:21 Stool Clostridium difficile Toxin Assay - Final Complete Intake and Output 09/16/18 09/17/18 19:00 07:00 Intake Total 1400 ml Balance 1400 ml Intake Oral 500 ml Other 900 ml # Voids 2 # Bowel Movements 4 Objective General: No acute distress, awake and alert HEENT: NCAT, sclera anicteric, PERRL, EOMI. Neck: Supple, no significant jugular venous distention, Lungs: fair inspiratory effort, decreased air in the bases, no Wheeze or Rales. Heart: Regular rate and rhythm, normal S1/S2, no murmur. Abdomen: soft, nontender, nondistended. Normoactive bowel sounds. / Rectal: Refused and deferred. Extremities: No Cyanosis , clubbing or edema, contracted lower extremity. Neuro: A&O x 3, Able to move all extremities Skin: warm, no rash. Psych: Normal mood and affect Assessment/Plan Assessment/Plan Cdiff, ongoing diarrhea on oral vancomycin --09/06 Cdiff toxin a/b + -09/06 SP Colonoscopy: proctitis -stool cx: normal thomas -Giardia ag, cryptosporidium neg Nausea/vomiting, SP Recent UTI, s/p complete Abx therapy. HIV/AIDS- on ARV (per pt VL UD) -09/2018 182 (10.1%) -11/2017 CD4 323 Hx of rectal CA CVA 2005 HTN Plan: -Abx: Fidaxomicin -09/13 SP PO Vancomycin #8 -f/u cx -DVT prophylaxis with heparin subcu. -Contiue ARV (Genvoya, prezista, intelence) -Atovaquone for PCP px -Monitor Lab. Carlos Barragan MD Sep 17, 2018 15:20
[2018-09-17 16:00] VITALS: BP 119/73
--- NOTE | 2018-09-17 17:05 | Pulmonology Progress Note ---
Assessment/Plan Problems: (1) C. difficile colitis (2) Severe protein-calorie malnutrition (3) HIV (human immunodeficiency virus infection) (4) ATN (acute tubular necrosis) (5) History of rectal cancer Assessment/Plan Cdiff negative slightly better still has diarrhea refusing to go to rehab iv fluids iv abx check electrolytes symptomatic treatment Subjective ROS Limited/Unobtainable: No Interval Events: still lots of diarrhea Allergies: Coded Allergies: CODEINE (Unverified Allergy, Unknown, 11/28/17) EMTRICITABINE (Verified Allergy, Unknown, anxiousness, 08/31/18) SULFAMETHOXAZOLE (Unverified Allergy, Unknown, 10/27/17) TENOFOVIR (Verified Allergy, Unknown, anxiousness, 08/31/18) TRIMETHOPRIM (Unverified Allergy, Unknown, 10/27/17) Objective Last 24 Hour Vital Signs Date Time Temp Pulse Resp B/P (MAP) Pulse Ox O2 Delivery O2 Flow Rate FiO2 09/17/18 16:00 98.0 85 19 119/73 (88) 97 09/17/18 12:00 98.2 94 18 116/76 (89) 93 09/17/18 11:53 98.2 09/17/18 09:00 Room Air 09/17/18 08:41 90 114/67 09/17/18 08:40 90 114/67 09/17/18 08:40 114/67 09/17/18 08:00 98.2 90 18 114/67 (83) 92 09/17/18 04:00 98.5 78 18 121/74 (90) 94 09/17/18 00:00 98.3 82 18 110/67 (81) 93 09/16/18 21:00 Room Air 09/16/18 20:51 85 109/64 09/16/18 20:00 98.6 85 19 109/64 (79) 93 Intake and Output 09/16/18 09/17/18 19:00 07:00 Intake Total 1400 ml Balance 1400 ml Intake Oral 500 ml Other 900 ml # Voids 2 # Bowel Movements 4 Objective General Appearance: WD/WN HEENT: normocephalic, atraumatic Respiratory/Chest: chest wall non-tender, lungs clear Cardiovascular: normal peripheral pulses, normal rate Abdomen: normal bowel sounds, soft, non tender Extremities: no cyanosis Skin: no ulcers Microbiology Date/Time Source Procedure Growth Status 3/15/19 15:21 Stool Clostridium difficile Toxin Assay - Final Complete Laboratory Tests 09/17/18 06:55: White Blood Count 7.9, Red Blood Count 3.75L, Hemoglobin 12.8L, Hematocrit 36.7L , Mean Corpuscular Volume 98, Mean Corpuscular Hemoglobin 34.1H, Mean Corpuscular Hemoglobin Concent 34.8, Red Cell Distribution Width 12.3, Platelet Count 228, Mean Platelet Volume 7.2, Neutrophils (%) (Auto) 59.9, Lymphocytes (% ) (Auto) 30.8, Monocytes (%) (Auto) 6.6, Eosinophils (%) (Auto) 1.8, Basophils ( %) (Auto) 0.8, Sodium Level 139, Potassium Level 4.7, Chloride Level 107, Carbon Dioxide Level 24, Anion Gap 8, Blood Urea Nitrogen 27H, Creatinine 1.3, Estimat Glomerular Filtration Rate 54.6, Glucose Level 87, Calcium Level 8.7 Current Medications Medications (Trade) Dose Ordered Sig/Roman Route PRN Reason Start Time Stop Time Status Last Admin Dose Admin Acetaminophen (Tylenol) 650 mg Q4H PRN ORAL fever (temp>100.5F) 09/13/18 18:00 10/13/18 17:59 Al Hydroxide/Mg Hydroxide (Mylanta II) 30 ml Q6H PRN ORAL dyspepsia 09/13/18 18:00 10/13/18 17:59 Amlodipine Besylate (Norvasc) 10 mg DAILY ORAL 09/14/18 09:00 10/14/18 08:59 09/17/18 08:41 Atovaquone (Mepron Susp) 1,500 mg DAILY ORAL 09/14/18 12:00 10/14/18 11:59 09/17/18 08:39 Baclofen (Lioresal) 10 mg THREE TIMES A DAY PRN ORAL Muscle Spasm 09/13/18 23:15 10/13/18 23:14 Calcium Carbonate (Os-Fazal) 500 mg DAILY ORAL 09/14/18 09:00 10/14/18 08:59 09/17/18 08:39 Clotrimazole (Lotrimin) 1 applic TWICE A DAY TOPIC 09/14/18 09:00 10/14/18 08:59 09/17/18 08:41 Dextrose (Dextrose 50%) 25 ml Q30M PRN IV Hypoglycemia 09/13/18 18:00 10/13/18 17:54 Dextrose (Dextrose 50%) 50 ml Q30M PRN IV hypoglycemia 09/13/18 18:00 10/13/18 17:59 Fidaxomicin (Dificid) 200 mg EVERY 12 HOURS ORAL 09/14/18 21:00 09/21/18 20:59 09/17/18 08:43 Finasteride (Proscar) 5 mg DAILY ORAL 09/14/18 09:00 10/14/18 08:59 09/17/18 08:40 Heparin Sodium (Porcine) (Heparin 5000 units/ml) 5,000 units EVERY 8 HOURS SUBQ 09/16/18 22:00 10/16/18 21:59 09/17/18 13:15 Lorazepam (Ativan 2mg/ml 1ml) 0.5 mg Q4H PRN IV For Anxiety 09/13/18 18:00 09/20/18 17:59 09/17/18 03:22 Lorazepam (Ativan) 1 mg TWICE A DAY PRN ORAL For Anxiety 09/13/18 23:15 09/20/18 23:14 Losartan Potassium (Cozaar) 50 mg DAILY ORAL 09/14/18 09:00 10/14/18 08:59 09/17/18 08:40 Meloxicam (Mobic) 15 mg DAILY ORAL 09/14/18 09:00 10/14/18 08:59 09/17/18 08:40 Metoprolol Tartrate (Lopressor) 25 mg EVERY 12 HOURS ORAL 09/14/18 09:00 10/14/18 08:59 09/17/18 08:40 Mirtazapine (Remeron) 15 mg BEDTIME ORAL 09/14/18 21:00 10/14/18 20:59 09/16/18 21:07 Morphine Sulfate (Morphine Sulfate) 4 mg Q4H PRN IVP Severe Pain (Pain Scale 7-10) 09/13/18 23:00 09/20/18 22:59 09/17/18 11:23 Ondansetron HCl (Zofran ODT) 8 mg Q6H PRN ORAL Nausea & Vomiting 09/13/18 23:15 10/13/18 23:14 Ondansetron HCl (Zofran) 4 mg Q6H PRN IVP Nausea & Vomiting 09/13/18 18:00 10/13/18 17:59 09/16/18 13:47 Paroxetine HCl (Paxil) 40 mg DAILY ORAL 09/14/18 09:00 10/14/18 08:59 09/17/18 08:40 Patient Own Medication (Patient's Own Med) 1 ea BID ORAL 09/14/18 18:00 10/14/18 17:59 09/17/18 08:42 Patient Own Medication (Patient's Own Med) 1 ea BID ORAL 09/14/18 18:00 10/14/18 17:59 09/17/18 08:42 Patient Own Medication (Patient's Own Med) 1 ea DAILY ORAL 09/15/18 15:00 10/15/18 14:59 09/17/18 08:41 Tamsulosin HCl (Flomax) 0.4 mg BEDTIME ORAL 09/14/18 21:00 10/14/18 20:59 09/16/18 21:07 Vitamin D (Vitamin D) 2,000 intlu DAILY ORAL 09/14/18 09:00 10/14/18 08:59 09/17/18 08:40 Zolpidem Tartrate (Ambien) 5 mg HSPRN PRN ORAL Insomnia 09/13/18 18:00 09/20/18 17:59 Oliverio Rm MD Sep 17, 2018 17:05
--- NOTE | 2018-09-17 19:35 | NUR ---
HAND-OFF: Report given to CHARLEY Wilcox.
--- NOTE | 2018-09-17 19:42 | NUR ---
NURSE NOTES: Received patient in bed, awake, able to verbalize needs. On RA, no SOB, no acute distress, no c/o pain. Bed in lowest position, locked, alarms on. Call light in reach.
[2018-09-17 20:00] VITALS: BP 99/55
[2018-09-17] MEDS: Tamsulosin 0.4mg cap ORAL SCH (20:49)
[2018-09-18] VITALS: BP 109/57
[2018-09-18 04:00] VITALS: BP 103/50
[2018-09-18] MEDS: Heparin 5000 units/ml inj SUBQ SCH ×3 (05:18→22:37)
--- NOTE | 2018-09-18 07:19 | NUR ---
HAND-OFF: Report given to CHARLEY Dasilva.
--- NOTE | 2018-09-18 07:38 | NUR ---
NURSE NOTES: pt in bed with no sob nor in any form of distress noted. denies any pain at this time. Breathing regular and unlabored. bed in lowest position. call light within reach at all time. will continue to monitor
[2018-09-18 08:00] VITALS: BP 110/68
--- NOTE | 2018-09-18 08:52 | NUR ---
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
[2018-09-18] MEDS: Losartan 50mg tab ORAL SCH (09:16)
[2018-09-18] MEDS: Vitamin D 1000 IU Tab ORAL SCH (09:16)
[2018-09-18] MEDS: Meloxicam 15 MG TAB ORAL SCH (09:17)
[2018-09-18] MEDS: Atovaquone 750mg/5ml Susp ORAL SCH (09:17)
[2018-09-18] MEDS: PREZISTA 600 MG ORAL SCH ×2 (09:17→17:21)
[2018-09-18] MEDS: PARoxetine 20mg tab ORAL SCH (09:17)
[2018-09-18] MEDS: Metoprolol 25mg tab ORAL SCH ×2 (09:17→22:38)
[2018-09-18] MEDS: GENVOYA ORAL SCH (09:18)
[2018-09-18] MEDS: INTELENCE 200 MG ORAL SCH ×2 (09:18→17:21)
--- NOTE | 2018-09-18 11:35 | GI Progress Note ---
Assessment/Plan Problems: (1) Severe protein-calorie malnutrition ICD Codes: E43 - Unspecified severe protein-calorie malnutrition SNOMED: 448989618 (2) Intractable abdominal pain ICD Codes: R10.9 - Unspecified abdominal pain SNOMED: 11745606, 619339483 (3) Electrolyte imbalance ICD Codes: E87.8 - Other disorders of electrolyte and fluid balance, not elsewhere classified SNOMED: 118855247 (4) Diarrhea ICD Codes: R19.7 - Diarrhea, unspecified SNOMED: 48961987 (5) Dehydration ICD Codes: E86.0 - Dehydration SNOMED: 15369942 (6) C. difficile colitis ICD Codes: A04.72 - Enterocolitis due to Clostridium difficile, not specified as recurrent SNOMED: 719368978 (7) Gastroenteritis ICD Codes: K52.9 - Noninfective gastroenteritis and colitis, unspecified SNOMED: 05898770 (8) Rectal cancer ICD Codes: C20 - Malignant neoplasm of rectum SNOMED: 089577231 Status: progressing Status Narrative Discussed with Dr. Germain. Assessment/Plan Status post colonoscopy SUMMARY OF FINDINGS: 1. Focal proctitis suspicious for C. diff versus ulcerative colitis, status post biopsy. 2. Status post biopsy of the right and left colon to evaluate microscopic colitis. Cdiff negative RECOMMENDATIONS: Follow up biopsy results and treat accordingly. >> negative for microscopic colitis Antibiotics per infectious disease H2B PRN transfusions Advance diet PT evaluation Follow labs The patient was seen and examined at bedside and all new and available data was reviewed in the patients chart. I agree with the above findings, impression and plan. (Patient seen earlier today. Signature stamp does not reflect patient encounter time.). - Dejan Germain MD Subjective Gastrointestinal/Abdominal: Reports: no symptoms Objective Last 24 Hour Vital Signs Date Time Temp Pulse Resp B/P (MAP) Pulse Ox O2 Delivery O2 Flow Rate FiO2 09/18/18 09:17 76 110/68 09/18/18 09:16 110/68 09/18/18 09:16 76 110/68 09/18/18 09:00 Room Air 09/18/18 08:00 98.4 76 19 110/68 (82) 97 09/18/18 04:00 98.0 84 18 103/50 (67) 97 09/18/18 00:00 97.9 89 20 109/57 (74) 98 09/17/18 22:46 Room Air 09/17/18 20:49 85 119/73 09/17/18 20:00 98.8 85 20 99/55 (70) 98 09/17/18 16:00 98.0 85 19 119/73 (88) 97 09/17/18 12:00 98.2 94 18 116/76 (89) 93 09/17/18 11:53 98.2 Intake and Output 09/17/18 09/18/18 19:00 07:00 Intake Total 900 ml Balance 900 ml Intake Oral 300 ml Other 600 ml # Voids 3 # Bowel Movements 2 Height (Feet): 5 Height (Inches): 10.00 Weight (Pounds): 152 General Appearance: WD/WN, no apparent distress, alert Cardiovascular: normal rate Respiratory/Chest: normal breath sounds, no respiratory distress Abdominal Exam: normal bowel sounds, non tender, soft Extremities: normal range of motion, non-tender Objective No BM documented today. Jasen Brink NP Sep 18, 2018 11:35
[2018-09-18 12:00] VITALS: BP 116/71
--- NOTE | 2018-09-18 13:10 | Pulmonology Progress Note ---
Assessment/Plan Problems: (1) C. difficile colitis (2) Severe protein-calorie malnutrition (3) HIV (human immunodeficiency virus infection) (4) ATN (acute tubular necrosis) (5) History of rectal cancer Assessment/Plan no new complains all reviewed Cdiff negative slightly better still has diarrhea refusing to go to rehab iv fluids iv abx check electrolytes symptomatic treatment Subjective ROS Limited/Unobtainable: No Constitutional: Reports: no symptoms HEENT: Repors: no symptoms Allergies: Coded Allergies: CODEINE (Unverified Allergy, Unknown, 11/28/17) EMTRICITABINE (Verified Allergy, Unknown, anxiousness, 08/31/18) SULFAMETHOXAZOLE (Unverified Allergy, Unknown, 10/27/17) TENOFOVIR (Verified Allergy, Unknown, anxiousness, 08/31/18) TRIMETHOPRIM (Unverified Allergy, Unknown, 10/27/17) Objective Last 24 Hour Vital Signs Date Time Temp Pulse Resp B/P (MAP) Pulse Ox O2 Delivery O2 Flow Rate FiO2 09/18/18 12:00 98.0 79 19 116/71 (86) 97 09/18/18 09:17 76 110/68 09/18/18 09:16 110/68 09/18/18 09:16 76 110/68 09/18/18 09:00 Room Air 09/18/18 08:00 98.4 76 19 110/68 (82) 97 09/18/18 04:00 98.0 84 18 103/50 (67) 97 09/18/18 00:00 97.9 89 20 109/57 (74) 98 09/17/18 22:46 Room Air 09/17/18 20:49 85 119/73 09/17/18 20:00 98.8 85 20 99/55 (70) 98 09/17/18 16:00 98.0 85 19 119/73 (88) 97 Intake and Output 09/17/18 09/18/18 19:00 07:00 Intake Total 900 ml Balance 900 ml Intake Oral 300 ml Other 600 ml # Voids 3 # Bowel Movements 2 Objective General Appearance: WD/WN HEENT: normocephalic, atraumatic Respiratory/Chest: chest wall non-tender, lungs clear Cardiovascular: normal peripheral pulses, normal rate Abdomen: normal bowel sounds, soft, non tender Extremities: no cyanosis Skin: no ulcers Microbiology Date/Time Source Procedure Growth Status 09/15/18 15:21 Stool Clostridium difficile Toxin Assay - Final Complete Current Medications Medications (Trade) Dose Ordered Sig/Roman Route PRN Reason Start Time Stop Time Status Last Admin Dose Admin Acetaminophen (Tylenol) 650 mg Q4H PRN ORAL fever (temp>100.5F) 09/13/18 18:00 10/13/18 17:59 Al Hydroxide/Mg Hydroxide (Mylanta II) 30 ml Q6H PRN ORAL dyspepsia 09/13/18 18:00 10/13/18 17:59 Amlodipine Besylate (Norvasc) 10 mg DAILY ORAL 09/14/18 09:00 10/14/18 08:59 09/18/18 09:16 Atovaquone (Mepron Susp) 1,500 mg DAILY ORAL 09/14/18 12:00 10/14/18 11:59 09/18/18 09:17 Baclofen (Lioresal) 10 mg THREE TIMES A DAY PRN ORAL Muscle Spasm 09/13/18 23:15 10/13/18 23:14 Calcium Carbonate (Os-Fazal) 500 mg DAILY ORAL 09/14/18 09:00 10/14/18 08:59 09/18/18 09:16 Clotrimazole (Lotrimin) 1 applic TWICE A DAY TOPIC 09/14/18 09:00 10/14/18 08:59 09/18/18 09:18 Dextrose (Dextrose 50%) 25 ml Q30M PRN IV Hypoglycemia 09/13/18 18:00 10/13/18 17:54 Dextrose (Dextrose 50%) 50 ml Q30M PRN IV hypoglycemia 09/13/18 18:00 10/13/18 17:59 Fidaxomicin (Dificid) 200 mg EVERY 12 HOURS ORAL 09/14/18 21:00 09/21/18 20:59 09/18/18 09:17 Finasteride (Proscar) 5 mg DAILY ORAL 09/14/18 09:00 10/14/18 08:59 09/18/18 09:16 Heparin Sodium (Porcine) (Heparin 5000 units/ml) 5,000 units EVERY 8 HOURS SUBQ 09/16/18 22:00 10/16/18 21:59 09/18/18 13:07 Lorazepam (Ativan 2mg/ml 1ml) 0.5 mg Q4H PRN IV For Anxiety 09/13/18 18:00 09/20/18 17:59 09/17/18 03:22 Lorazepam (Ativan) 1 mg TWICE A DAY PRN ORAL For Anxiety 09/13/18 23:15 09/20/18 23:14 Losartan Potassium (Cozaar) 50 mg DAILY ORAL 09/14/18 09:00 10/14/18 08:59 09/18/18 09:16 Meloxicam (Mobic) 15 mg DAILY ORAL 09/14/18 09:00 10/14/18 08:59 09/18/18 09:17 Metoprolol Tartrate (Lopressor) 25 mg EVERY 12 HOURS ORAL 09/14/18 09:00 10/14/18 08:59 09/18/18 09:17 Mirtazapine (Remeron) 15 mg BEDTIME ORAL 09/14/18 21:00 10/14/18 20:59 09/17/18 20:49 Morphine Sulfate (Morphine Sulfate) 4 mg Q4H PRN IVP Severe Pain (Pain Scale 7-10) 09/13/18 23:00 09/20/18 22:59 09/17/18 23:36 Ondansetron HCl (Zofran ODT) 8 mg Q6H PRN ORAL Nausea & Vomiting 09/13/18 23:15 10/13/18 23:14 Ondansetron HCl (Zofran) 4 mg Q6H PRN IVP Nausea & Vomiting 09/13/18 18:00 10/13/18 17:59 09/17/18 17:19 Paroxetine HCl (Paxil) 40 mg DAILY ORAL 09/14/18 09:00 10/14/18 08:59 09/18/18 09:17 Patient Own Medication (Patient's Own Med) 1 ea BID ORAL 09/14/18 18:00 10/14/18 17:59 09/18/18 09:17 Patient Own Medication (Patient's Own Med) 1 ea BID ORAL 09/14/18 18:00 10/14/18 17:59 09/18/18 09:18 Patient Own Medication (Patient's Own Med) 1 ea DAILY ORAL 09/15/18 15:00 10/15/18 14:59 09/18/18 09:18 Tamsulosin HCl (Flomax) 0.4 mg BEDTIME ORAL 09/14/18 21:00 10/14/18 20:59 09/17/18 20:49 Vitamin D (Vitamin D) 2,000 intlu DAILY ORAL 09/14/18 09:00 10/14/18 08:59 09/18/18 09:16 Zolpidem Tartrate (Ambien) 5 mg HSPRN PRN ORAL Insomnia 09/13/18 18:00 09/20/18 17:59 Oliverio Rm MD Sep 18, 2018 13:10
[2018-09-18] MEDS: Lomotil 2.5mg tab ORAL PRN (13:54)
--- NOTE | 2018-09-18 15:01 | NUR ---
*-* INSURANCE *-* CLINICALS AND REVIEWS HAVE BEEN FAXED TO: [facility] NCM: CARMITA P: [phone] CELL: [phone] F: [phone]
[2018-09-18 16:00] VITALS: BP 108/66
--- NOTE | 2018-09-18 16:06 | Infectious Diseases Prog Note ---
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 Will continue to follow along with you. Subjective Allergies: Coded Allergies: CODEINE (Unverified Allergy, Unknown, 11/28/17) EMTRICITABINE (Verified Allergy, Unknown, anxiousness, 08/31/18) SULFAMETHOXAZOLE (Unverified Allergy, Unknown, 10/27/17) TENOFOVIR (Verified Allergy, Unknown, anxiousness, 08/31/18) TRIMETHOPRIM (Unverified Allergy, Unknown, 10/27/17) Subjective afebrile no leukocytosis diarrhea improving Objective Vital Signs Last 24 Hour Vital Signs Date Time Temp Pulse Resp B/P (MAP) Pulse Ox O2 Delivery O2 Flow Rate FiO2 09/18/18 12:00 98.0 79 19 116/71 (86) 97 09/18/18 09:17 76 110/68 09/18/18 09:16 110/68 09/18/18 09:16 76 110/68 09/18/18 09:00 Room Air 09/18/18 08:00 98.4 76 19 110/68 (82) 97 09/18/18 04:00 98.0 84 18 103/50 (67) 97 09/18/18 00:00 97.9 89 20 109/57 (74) 98 09/17/18 22:46 Room Air 09/17/18 20:49 85 119/73 09/17/18 20:00 98.8 85 20 99/55 (70) 98 Height (Feet): 5 Height (Inches): 10.00 Weight (Pounds): 152 Objective Head: normocephalic, atraumatic Eyes: bilateral eye PERRL, bilateral eye EOMI ENT: dry mucus membranes Neck: supple Respiratory: lungs clear, no respiratory distress, no retraction, no accessory muscle use Cardiovascular #1: regular rate, rhythm Gastrointestinal: non tender, soft Musculoskeletal: other - Some contractures of the lower legs Neurologic: alert, oriented x3, responsive Skin: normal color, no rash Lymphatic: no adenopathy Current Medications Medications (Trade) Dose Ordered Sig/Roman Route PRN Reason Start Time Stop Time Status Last Admin Dose Admin Acetaminophen (Tylenol) 650 mg Q4H PRN ORAL fever (temp>100.5F) 09/13/18 18:00 10/13/18 17:59 Al Hydroxide/Mg Hydroxide (Mylanta II) 30 ml Q6H PRN ORAL dyspepsia 09/13/18 18:00 10/13/18 17:59 Amlodipine Besylate (Norvasc) 10 mg DAILY ORAL 09/14/18 09:00 10/14/18 08:59 09/18/18 09:16 Atovaquone (Mepron Susp) 1,500 mg DAILY ORAL 09/14/18 12:00 10/14/18 11:59 09/18/18 09:17 Baclofen (Lioresal) 10 mg THREE TIMES A DAY PRN ORAL Muscle Spasm 09/13/18 23:15 10/13/18 23:14 Calcium Carbonate (Os-Fazal) 500 mg DAILY ORAL 09/14/18 09:00 10/14/18 08:59 09/18/18 09:16 Clotrimazole (Lotrimin) 1 applic TWICE A DAY TOPIC 09/14/18 09:00 10/14/18 08:59 09/18/18 09:18 Dextrose (Dextrose 50%) 25 ml Q30M PRN IV Hypoglycemia 09/13/18 18:00 10/13/18 17:54 Dextrose (Dextrose 50%) 50 ml Q30M PRN IV hypoglycemia 09/13/18 18:00 10/13/18 17:59 Diphenoxylate HCl/ Atropine (Lomotil) 2.5 mg Q4H PRN ORAL Diarrhea 09/18/18 13:45 10/18/18 13:44 09/18/18 13:54 Fidaxomicin (Dificid) 200 mg EVERY 12 HOURS ORAL 09/14/18 21:00 09/21/18 20:59 09/18/18 09:17 Finasteride (Proscar) 5 mg DAILY ORAL 09/14/18 09:00 10/14/18 08:59 09/18/18 09:16 Heparin Sodium (Porcine) (Heparin 5000 units/ml) 5,000 units EVERY 8 HOURS SUBQ 09/16/18 22:00 10/16/18 21:59 09/18/18 13:07 Lorazepam (Ativan 2mg/ml 1ml) 0.5 mg Q4H PRN IV For Anxiety 09/13/18 18:00 09/20/18 17:59 09/17/18 03:22 Lorazepam (Ativan) 1 mg TWICE A DAY PRN ORAL For Anxiety 09/13/18 23:15 09/20/18 23:14 Losartan Potassium (Cozaar) 50 mg DAILY ORAL 09/14/18 09:00 10/14/18 08:59 09/18/18 09:16 Meloxicam (Mobic) 15 mg DAILY ORAL 09/14/18 09:00 10/14/18 08:59 09/18/18 09:17 Metoprolol Tartrate (Lopressor) 25 mg EVERY 12 HOURS ORAL 09/14/18 09:00 10/14/18 08:59 09/18/18 09:17 Mirtazapine (Remeron) 15 mg BEDTIME ORAL 09/14/18 21:00 10/14/18 20:59 09/17/18 20:49 Morphine Sulfate (Morphine Sulfate) 4 mg Q4H PRN IVP Severe Pain (Pain Scale 7-10) 09/13/18 23:00 09/20/18 22:59 09/17/18 23:36 Ondansetron HCl (Zofran ODT) 8 mg Q6H PRN ORAL Nausea & Vomiting 09/13/18 23:15 10/13/18 23:14 Ondansetron HCl (Zofran) 4 mg Q6H PRN IVP Nausea & Vomiting 09/13/18 18:00 10/13/18 17:59 09/18/18 13:48 Paroxetine HCl (Paxil) 40 mg DAILY ORAL 09/14/18 09:00 10/14/18 08:59 09/18/18 09:17 Patient Own Medication (Patient's Own Med) 1 ea BID ORAL 09/14/18 18:00 10/14/18 17:59 09/18/18 09:17 Patient Own Medication (Patient's Own Med) 1 ea BID ORAL 09/14/18 18:00 10/14/18 17:59 09/18/18 09:18 Patient Own Medication (Patient's Own Med) 1 ea DAILY ORAL 09/15/18 15:00 10/15/18 14:59 09/18/18 09:18 Tamsulosin HCl (Flomax) 0.4 mg BEDTIME ORAL 09/14/18 21:00 10/14/18 20:59 09/17/18 20:49 Vitamin D (Vitamin D) 2,000 intlu DAILY ORAL 09/14/18 09:00 10/14/18 08:59 09/18/18 09:16 Zolpidem Tartrate (Ambien) 5 mg HSPRN PRN ORAL Insomnia 09/13/18 18:00 09/20/18 17:59 Miranda Cordero M.D. Sep 18, 2018 16:06
--- NOTE | 2018-09-18 18:01 | Internal Med Progress Note ---
Subjective Physician Name Carlos Barragan Attending Physician Carlos Barragan MD Current Medications Medications (Trade) Dose Ordered Sig/Roman Route PRN Reason Start Time Stop Time Status Last Admin Dose Admin Acetaminophen (Tylenol) 650 mg Q4H PRN ORAL fever (temp>100.5F) 09/13/18 18:00 10/13/18 17:59 Al Hydroxide/Mg Hydroxide (Mylanta II) 30 ml Q6H PRN ORAL dyspepsia 09/13/18 18:00 10/13/18 17:59 Amlodipine Besylate (Norvasc) 10 mg DAILY ORAL 09/14/18 09:00 10/14/18 08:59 09/18/18 09:16 Atovaquone (Mepron Susp) 1,500 mg DAILY ORAL 09/14/18 12:00 10/14/18 11:59 09/18/18 09:17 Baclofen (Lioresal) 10 mg THREE TIMES A DAY PRN ORAL Muscle Spasm 09/13/18 23:15 10/13/18 23:14 Calcium Carbonate (Os-Fazal) 500 mg DAILY ORAL 09/14/18 09:00 10/14/18 08:59 09/18/18 09:16 Clotrimazole (Lotrimin) 1 applic TWICE A DAY TOPIC 09/14/18 09:00 10/14/18 08:59 09/18/18 17:21 Dextrose (Dextrose 50%) 25 ml Q30M PRN IV Hypoglycemia 09/13/18 18:00 10/13/18 17:54 Dextrose (Dextrose 50%) 50 ml Q30M PRN IV hypoglycemia 09/13/18 18:00 10/13/18 17:59 Diphenoxylate HCl/ Atropine (Lomotil) 2.5 mg Q4H PRN ORAL Diarrhea 09/18/18 13:45 10/18/18 13:44 09/18/18 13:54 Fidaxomicin (Dificid) 200 mg EVERY 12 HOURS ORAL 09/14/18 21:00 09/21/18 20:59 09/18/18 09:17 Finasteride (Proscar) 5 mg DAILY ORAL 09/14/18 09:00 10/14/18 08:59 09/18/18 09:16 Heparin Sodium (Porcine) (Heparin 5000 units/ml) 5,000 units EVERY 8 HOURS SUBQ 09/16/18 22:00 10/16/18 21:59 09/18/18 13:07 Lorazepam (Ativan 2mg/ml 1ml) 0.5 mg Q4H PRN IV For Anxiety 09/13/18 18:00 09/20/18 17:59 09/17/18 03:22 Lorazepam (Ativan) 1 mg TWICE A DAY PRN ORAL For Anxiety 09/13/18 23:15 09/20/18 23:14 09/18/18 17:21 Losartan Potassium (Cozaar) 50 mg DAILY ORAL 09/14/18 09:00 10/14/18 08:59 09/18/18 09:16 Meloxicam (Mobic) 15 mg DAILY ORAL 09/14/18 09:00 10/14/18 08:59 09/18/18 09:17 Metoprolol Tartrate (Lopressor) 25 mg EVERY 12 HOURS ORAL 09/14/18 09:00 10/14/18 08:59 09/18/18 09:17 Mirtazapine (Remeron) 15 mg BEDTIME ORAL 09/14/18 21:00 10/14/18 20:59 09/17/18 20:49 Morphine Sulfate (Morphine Sulfate) 4 mg Q4H PRN IVP Severe Pain (Pain Scale 7-10) 09/13/18 23:00 09/20/18 22:59 09/17/18 23:36 Ondansetron HCl (Zofran ODT) 8 mg Q6H PRN ORAL Nausea & Vomiting 09/13/18 23:15 10/13/18 23:14 Ondansetron HCl (Zofran) 4 mg Q6H PRN IVP Nausea & Vomiting 09/13/18 18:00 10/13/18 17:59 09/18/18 13:48 Paroxetine HCl (Paxil) 40 mg DAILY ORAL 09/14/18 09:00 10/14/18 08:59 09/18/18 09:17 Patient Own Medication (Patient's Own Med) 1 ea BID ORAL 09/14/18 18:00 10/14/18 17:59 09/18/18 17:21 Patient Own Medication (Patient's Own Med) 1 ea BID ORAL 09/14/18 18:00 10/14/18 17:59 09/18/18 17:21 Patient Own Medication (Patient's Own Med) 1 ea DAILY ORAL 09/15/18 15:00 10/15/18 14:59 09/18/18 09:18 Tamsulosin HCl (Flomax) 0.4 mg BEDTIME ORAL 09/14/18 21:00 10/14/18 20:59 09/17/18 20:49 Vitamin D (Vitamin D) 2,000 intlu DAILY ORAL 09/14/18 09:00 10/14/18 08:59 09/18/18 09:16 Zolpidem Tartrate (Ambien) 5 mg HSPRN PRN ORAL Insomnia 09/13/18 18:00 09/20/18 17:59 Allergies: Coded Allergies: CODEINE (Unverified Allergy, Unknown, 11/28/17) EMTRICITABINE (Verified Allergy, Unknown, anxiousness, 08/31/18) SULFAMETHOXAZOLE (Unverified Allergy, Unknown, 10/27/17) TENOFOVIR (Verified Allergy, Unknown, anxiousness, 08/31/18) TRIMETHOPRIM (Unverified Allergy, Unknown, 10/27/17) Subjective awake, alert, responsive, no acute distress,less diarrhea and urine incontinent , + 2 episode of Vomiting. Objective Last Vital Signs Date Time Temp Pulse Resp B/P (MAP) Pulse Ox O2 Delivery O2 Flow Rate FiO2 09/18/18 12:00 98.0 79 19 116/71 (86) 97 09/18/18 09:00 Room Air Intake and Output 09/17/18 09/18/18 19:00 07:00 Intake Total 900 ml Balance 900 ml Intake Oral 300 ml Other 600 ml # Voids 3 # Bowel Movements 2 Objective General: No acute distress, awake and alert HEENT: NCAT, sclera anicteric, PERRL, EOMI. Neck: Supple, no significant jugular venous distention, Lungs: fair inspiratory effort, decreased air in the bases, no Wheeze or Rales. Heart: Regular rate and rhythm, normal S1/S2, no murmur. Abdomen: soft, nontender, nondistended. Normoactive bowel sounds. / Rectal: Refused and deferred. Extremities: No Cyanosis , clubbing or edema, contracted lower extremity. Neuro: A&O x 3, Able to move all extremities Skin: warm, no rash. Psych: Normal mood and affect Assessment/Plan Assessment/Plan Cdiff, ongoing diarrhea on oral vancomycin --09/06 Cdiff toxin a/b + -09/06 SP Colonoscopy: proctitis -stool cx: normal thomas -Giardia ag, cryptosporidium neg Nausea/vomiting, SP Recent UTI, s/p complete Abx therapy. HIV/AIDS- on ARV (per pt VL UD) -09/2018 182 (10.1%) -11/2017 CD4 323 Hx of rectal CA CVA 2004 HTN Plan: -Abx: Fidaxomicin (#5/10) -09/13 SP PO Vancomycin #8 -f/u cx -DVT prophylaxis with heparin subcu. -Contiue ARV (Genvoya, prezista, intelence) -Atovaquone for PCP px -Monitor Lab. DC planning to SNF once bed available. Carlos Barragan MD Sep 18, 2018 18:01
[2018-09-18] MEDS: Metoclopramide 10mg/2ml Inj IVP PRN (18:20)
--- NOTE | 2018-09-18 19:24 | NUR ---
HAND-OFF: Report given to CHARLEY Michelle.
[2018-09-18 20:00] VITALS: BP 130/77
--- NOTE | 2018-09-18 20:00 | NUR ---
NURSE NOTES: Received report from Katalina Ahmadi RN. Patient A&Ox4. On room air. no signs of distress or labored breathing. IV intact, patent, and saline locked. Bed in lowest position with call light in reach. Will continue with plan of care.
[2018-09-18] MEDS: Tamsulosin 0.4mg cap ORAL SCH (22:42)
[2018-09-19] VITALS: BP 133/80
[2018-09-19] MEDS: Morphine Sulfate 4mg/ml Inj (IV USE ONLY) IVP PRN ×3 (00:23→21:01)
[2018-09-19] MEDS: Lomotil 2.5mg tab ORAL PRN ×3 (00:24→12:33)
[2018-09-19 04:00] VITALS: BP 96/60
[2018-09-19] MEDS: Heparin 5000 units/ml inj SUBQ SCH ×3 (06:33→21:02)
[2018-09-19] MEDS: Metoclopramide 10mg/2ml Inj IVP PRN (06:33)
[2018-09-19 06:55] LABS: BASOPHILS % (AUTO) 0.4 % (0.0-2.0); EOSINOPHILS % (AUTO) 0.2 % (0.0-3.0); HEMATOCRIT 37.4 % (42.0-52.0); HEMOGLOBIN 12.8 G/DL (14.2-18.0); LYMPHOCYTES % (AUTO) 25.3 % (20.0-45.0); MEAN CORPUSCULAR VOLUME 98 FL (80-99); MONOCYTES % (AUTO) 5.2 % (1.0-10.0); NEUTROPHILS % (AUTO) 68.9 % (45.0-75.0); PLATELET COUNT 250 K/UL (150-450); RED BLOOD COUNT 3.81 M/UL (4.70-6.10); WHITE BLOOD COUNT 11.2 K/UL (4.8-10.8)
[2018-09-19 07:22] LABS: ANION GAP 10 mmol/L (5-15); BLOOD UREA NITROGEN 25 mg/dL (7-18); CARBON DIOXIDE 23 MMOL/L (21-32); CHLORIDE 106 MMOL/L (98-107); CREATININE 1.5 MG/DL (0.55-1.30); PHOSPHORUS 3.9 MG/DL (2.5-4.9); POTASSIUM 3.7 MMOL/L (3.5-5.1); SODIUM 139 MMOL/L (136-145)
--- NOTE | 2018-09-19 07:42 | NUR ---
HAND-OFF: Report given to CHARLEY Sullivan.
[2018-09-19 08:00] VITALS: BP 122/79
--- NOTE | 2018-09-19 08:52 | NUR ---
*-* DISCHARGE PLANNING *-* PATIENT HAS BEEN REFERED TO: [facility] P:[phone] F:[phone] & [facility] P:[phone] F:[phone]
--- NOTE | 2018-09-19 08:54 | NUR ---
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
[2018-09-19] MEDS: Metoprolol 25mg tab ORAL SCH ×2 (09:00→21:00)
[2018-09-19] MEDS: PARoxetine 20mg tab ORAL SCH (09:00)
[2018-09-19] MEDS: INTELENCE 200 MG ORAL SCH ×2 (09:00→17:17)
[2018-09-19] MEDS: Atovaquone 750mg/5ml Susp ORAL SCH (09:00)
[2018-09-19] MEDS: Losartan 50mg tab ORAL SCH (09:00)
[2018-09-19] MEDS: GENVOYA ORAL SCH (09:00)
[2018-09-19] MEDS: PREZISTA 600 MG ORAL SCH ×2 (09:00→17:18)
[2018-09-19] MEDS: Meloxicam 15 MG TAB ORAL SCH (09:00)
[2018-09-19] MEDS: Vitamin D 1000 IU Tab ORAL SCH (09:00)
--- NOTE | 2018-09-19 11:34 | GI Progress Note ---
Assessment/Plan Problems: (1) Severe protein-calorie malnutrition ICD Codes: E43 - Unspecified severe protein-calorie malnutrition SNOMED: 197814317 (2) Intractable abdominal pain ICD Codes: R10.9 - Unspecified abdominal pain SNOMED: 42929408, 708240074 (3) Electrolyte imbalance ICD Codes: E87.8 - Other disorders of electrolyte and fluid balance, not elsewhere classified SNOMED: 073877547 (4) Diarrhea ICD Codes: R19.7 - Diarrhea, unspecified SNOMED: 38746841 (5) Dehydration ICD Codes: E86.0 - Dehydration SNOMED: 95777208 (6) C. difficile colitis ICD Codes: A04.72 - Enterocolitis due to Clostridium difficile, not specified as recurrent SNOMED: 390211097 (7) Gastroenteritis ICD Codes: K52.9 - Noninfective gastroenteritis and colitis, unspecified SNOMED: 35283318 (8) Rectal cancer ICD Codes: C20 - Malignant neoplasm of rectum SNOMED: 921786684 Status: unchanged Status Narrative Discussed with Dr. Germain Assessment/Plan Status post colonoscopy SUMMARY OF FINDINGS: 1. Focal proctitis suspicious for C. diff versus ulcerative colitis, status post biopsy. 2. Status post biopsy of the right and left colon to evaluate microscopic colitis. Cdiff negative RECOMMENDATIONS: Follow up biopsy results and treat accordingly. >> negative for microscopic colitis Antibiotics per infectious disease H2B PRN transfusions DC Reglan, add promethazine Advance diet PT evaluation Follow labs The patient was seen and examined at bedside and all new and available data was reviewed in the patients chart. I agree with the above findings, impression and plan. (Patient seen earlier today. Signature stamp does not reflect patient encounter time.). - Dejan Germain MD Subjective Gastrointestinal/Abdominal: Reports: no symptoms Subjective No reported bowel movement today Still complains of severe nausea Objective Last 24 Hour Vital Signs Date Time Temp Pulse Resp B/P (MAP) Pulse Ox O2 Delivery O2 Flow Rate FiO2 09/19/18 09:00 Room Air 09/19/18 08:00 97.5 103 16 122/79 (93) 94 09/19/18 04:00 98.8 102 19 96/60 (72) 96 09/19/18 00:00 99.1 118 18 133/80 (97) 96 09/18/18 21:00 Room Air 09/18/18 20:00 99.6 123 18 130/77 (94) 96 09/18/18 16:00 98.0 75 19 108/66 (80) 97 09/18/18 12:00 98.0 79 19 116/71 (86) 97 Intake and Output 09/18/18 09/19/18 19:00 07:00 Intake Total 820 ml 480 ml Balance 820 ml 480 ml Intake Oral 820 ml 480 ml # Voids 6 4 # Bowel Movements 5 Laboratory Tests Test 09/19/18 05:20 White Blood Count 11.2 K/UL (4.8-10.8) H Red Blood Count 3.81 M/UL (4.70-6.10) L Hemoglobin 12.8 G/DL (14.2-18.0) L Hematocrit 37.4 % (42.0-52.0) L Mean Corpuscular Volume 98 FL (80-99) Mean Corpuscular Hemoglobin 33.6 PG (27.0-31.0) H Mean Corpuscular Hemoglobin Concent 34.2 G/DL (32.0-36.0) Red Cell Distribution Width 12.0 % (11.6-14.8) Platelet Count 250 K/UL (150-450) Mean Platelet Volume 7.0 FL (6.5-10.1) Neutrophils (%) (Auto) 68.9 % (45.0-75.0) Lymphocytes (%) (Auto) 25.3 % (20.0-45.0) Monocytes (%) (Auto) 5.2 % (1.0-10.0) Eosinophils (%) (Auto) 0.2 % (0.0-3.0) Basophils (%) (Auto) 0.4 % (0.0-2.0) Sodium Level 139 MMOL/L (136-145) Potassium Level 3.7 MMOL/L (3.5-5.1) Chloride Level 106 MMOL/L (98-107) Carbon Dioxide Level 23 MMOL/L (21-32) Anion Gap 10 mmol/L (5-15) Blood Urea Nitrogen 25 mg/dL (7-18) H Creatinine 1.5 MG/DL (0.55-1.30) H Estimat Glomerular Filtration Rate 46.3 mL/min (>60) Glucose Level 91 MG/DL (74-106) Calcium Level 9.0 MG/DL (8.5-10.1) Phosphorus Level 3.9 MG/DL (2.5-4.9) Magnesium Level 1.9 MG/DL (1.8-2.4) Height (Feet): 5 Height (Inches): 10.00 Weight (Pounds): 152 General Appearance: WD/WN, no apparent distress, alert Cardiovascular: normal rate Respiratory/Chest: normal breath sounds, no respiratory distress Abdominal Exam: normal bowel sounds, non tender, soft Extremities: normal range of motion, non-tender Objective No BM documented today. Jasen Brink NP Sep 19, 2018 11:34
[2018-09-19] MEDS ORDERED: Promethazine 25mg tab ORAL PRN (11:45)
[2018-09-19 12:00] VITALS: BP 133/82
--- NOTE | 2018-09-19 12:51 | Infectious Diseases Prog Note ---
Assessment/Plan Assessment/Plan Abx: None Assessment: Cdiff, ongoing diarrhea on oral vancomycin --09/06 Cdiff toxin a/b +; repeat Cdiff neg x2 -09/06 SP Colonoscopy: proctitis -stool cx: normal thomas -Giardia ag, cryptosporidium neg Nausea/vomiting, recurrent nausea Afebrile Mild leukocytosis Recent UTI, s/p Rx -u/a wbc 10-15, shirley neg, leuk +3; ucx >100K PROTEUS MIRABILIS ( I Levo; R Amp, bactrim, Cipro, Nitro; S Ceftriaxone) HIV/AIDS- on ARV (per pt VL UD) -09/2018 182 (10.1%) -11/2017 CD4 323 hx of rectal CA CVA 2004 HTN Plan: -Cont Fidaxomicin #12/11 as patient not improved with oral vancomycin -may consider adding cholestyramine if diarrhea not improving -09/13 SP PO Vancomycin #8 -f/u cx -Monitor CBC/CMP, temperatures -Contiue ARV (Genvoya, prezista, intelence)- if one medicine is missing, please hold all of them until all medicines are available -Atovaquone for PCP px -f/u HIV VL -management of nausea per GI Thank you for this consultation. Will continue to follow along with you. Subjective Allergies: Coded Allergies: CODEINE (Unverified Allergy, Unknown, 11/28/17) EMTRICITABINE (Verified Allergy, Unknown, anxiousness, 08/31/18) SULFAMETHOXAZOLE (Unverified Allergy, Unknown, 10/27/17) TENOFOVIR (Verified Allergy, Unknown, anxiousness, 08/31/18) TRIMETHOPRIM (Unverified Allergy, Unknown, 10/27/17) Subjective afebrile mild leukocytosis stool soft today; started on imodium yesterday today he is naseous Objective Vital Signs Last 24 Hour Vital Signs Date Time Temp Pulse Resp B/P (MAP) Pulse Ox O2 Delivery O2 Flow Rate FiO2 09/19/18 09:00 Room Air 09/19/18 08:00 97.5 103 16 122/79 (93) 94 09/19/18 04:00 98.8 102 19 96/60 (72) 96 09/19/18 00:00 99.1 118 18 133/80 (97) 96 3/18/19 21:00 Room Air 09/18/18 20:00 99.6 123 18 130/77 (94) 96 09/18/18 16:00 98.0 75 19 108/66 (80) 97 Height (Feet): 5 Height (Inches): 10.00 Weight (Pounds): 152 Objective Head: normocephalic, atraumatic Eyes: bilateral eye PERRL, bilateral eye EOMI ENT: dry mucus membranes Neck: supple Respiratory: lungs clear, no respiratory distress, no retraction, no accessory muscle use Cardiovascular #1: regular rate, rhythm Gastrointestinal: non tender, soft Musculoskeletal: other - Some contractures of the lower legs Neurologic: alert, oriented x3, responsive Skin: normal color, no rash Lymphatic: no adenopathy Laboratory Tests Test 09/19/18 05:20 White Blood Count 11.2 K/UL (4.8-10.8) H Red Blood Count 3.81 M/UL (4.70-6.10) L Hemoglobin 12.8 G/DL (14.2-18.0) L Hematocrit 37.4 % (42.0-52.0) L Mean Corpuscular Volume 98 FL (80-99) Mean Corpuscular Hemoglobin 33.6 PG (27.0-31.0) H Mean Corpuscular Hemoglobin Concent 34.2 G/DL (32.0-36.0) Red Cell Distribution Width 12.0 % (11.6-14.8) Platelet Count 250 K/UL (150-450) Mean Platelet Volume 7.0 FL (6.5-10.1) Neutrophils (%) (Auto) 68.9 % (45.0-75.0) Lymphocytes (%) (Auto) 25.3 % (20.0-45.0) Monocytes (%) (Auto) 5.2 % (1.0-10.0) Eosinophils (%) (Auto) 0.2 % (0.0-3.0) Basophils (%) (Auto) 0.4 % (0.0-2.0) Sodium Level 139 MMOL/L (136-145) Potassium Level 3.7 MMOL/L (3.5-5.1) Chloride Level 106 MMOL/L (98-107) Carbon Dioxide Level 23 MMOL/L (21-32) Anion Gap 10 mmol/L (5-15) Blood Urea Nitrogen 25 mg/dL (7-18) H Creatinine 1.5 MG/DL (0.55-1.30) H Estimat Glomerular Filtration Rate 46.3 mL/min (>60) Glucose Level 91 MG/DL (74-106) Calcium Level 9.0 MG/DL (8.5-10.1) Phosphorus Level 3.9 MG/DL (2.5-4.9) Magnesium Level 1.9 MG/DL (1.8-2.4) Current Medications Medications (Trade) Dose Ordered Sig/Roman Route PRN Reason Start Time Stop Time Status Last Admin Dose Admin Acetaminophen (Tylenol) 650 mg Q4H PRN ORAL fever (temp>100.5F) 09/13/18 18:00 10/13/18 17:59 Al Hydroxide/Mg Hydroxide (Mylanta II) 30 ml Q6H PRN ORAL dyspepsia 09/13/18 18:00 10/13/18 17:59 Amlodipine Besylate (Norvasc) 10 mg DAILY ORAL 09/14/18 09:00 10/14/18 08:59 09/18/18 09:16 Atovaquone (Mepron Susp) 1,500 mg DAILY ORAL 09/14/18 12:00 10/14/18 11:59 09/18/18 09:17 Baclofen (Lioresal) 10 mg THREE TIMES A DAY PRN ORAL Muscle Spasm 09/13/18 23:15 10/13/18 23:14 Calcium Carbonate (Os-Fazal) 500 mg DAILY ORAL 09/14/18 09:00 10/14/18 08:59 09/18/18 09:16 Clotrimazole (Lotrimin) 1 applic TWICE A DAY TOPIC 09/14/18 09:00 10/14/18 08:59 09/18/18 17:21 Dextrose (Dextrose 50%) 25 ml Q30M PRN IV Hypoglycemia 09/13/18 18:00 10/13/18 17:54 Dextrose (Dextrose 50%) 50 ml Q30M PRN IV hypoglycemia 09/13/18 18:00 10/13/18 17:59 Diphenoxylate HCl/ Atropine (Lomotil) 2.5 mg Q4H PRN ORAL Diarrhea 09/18/18 13:45 10/18/18 13:44 09/19/18 12:33 Fidaxomicin (Dificid) 200 mg EVERY 12 HOURS ORAL 09/14/18 21:00 09/21/18 20:59 09/18/18 09:17 Finasteride (Proscar) 5 mg DAILY ORAL 09/14/18 09:00 10/14/18 08:59 09/18/18 09:16 Heparin Sodium (Porcine) (Heparin 5000 units/ml) 5,000 units EVERY 8 HOURS SUBQ 09/16/18 22:00 10/16/18 21:59 09/19/18 06:33 Lorazepam (Ativan 2mg/ml 1ml) 0.5 mg Q4H PRN IV For Anxiety 09/13/18 18:00 09/20/18 17:59 09/17/18 03:22 Lorazepam (Ativan) 1 mg TWICE A DAY PRN ORAL For Anxiety 09/13/18 23:15 09/20/18 23:14 09/18/18 17:21 Losartan Potassium (Cozaar) 50 mg DAILY ORAL 09/14/18 09:00 10/14/18 08:59 09/18/18 09:16 Meloxicam (Mobic) 15 mg DAILY ORAL 09/14/18 09:00 10/14/18 08:59 09/18/18 09:17 Metoprolol Tartrate (Lopressor) 25 mg EVERY 12 HOURS ORAL 09/14/18 09:00 10/14/18 08:59 09/18/18 09:17 Mirtazapine (Remeron) 15 mg BEDTIME ORAL 09/14/18 21:00 10/14/18 20:59 09/17/18 20:49 Morphine Sulfate (Morphine Sulfate) 4 mg Q4H PRN IVP Severe Pain (Pain Scale 7-10) 09/13/18 23:00 09/20/18 22:59 09/19/18 00:23 Ondansetron HCl (Zofran) 4 mg Q6H PRN IVP Nausea & Vomiting 09/13/18 18:00 10/13/18 17:59 09/19/18 09:14 Paroxetine HCl (Paxil) 40 mg DAILY ORAL 09/14/18 09:00 10/14/18 08:59 09/18/18 09:17 Patient Own Medication (Patient's Own Med) 1 ea BID ORAL 09/14/18 18:00 10/14/18 17:59 09/18/18 17:21 Patient Own Medication (Patient's Own Med) 1 ea BID ORAL 09/14/18 18:00 10/14/18 17:59 09/18/18 17:21 Patient Own Medication (Patient's Own Med) 1 ea DAILY ORAL 09/15/18 15:00 10/15/18 14:59 09/18/18 09:18 Promethazine HCl (Phenergan) 25 mg Q8H PRN ORAL Nausea & Vomiting 09/19/18 11:45 10/19/18 11:44 Tamsulosin HCl (Flomax) 0.4 mg BEDTIME ORAL 09/14/18 21:00 10/14/18 20:59 09/18/18 22:42 Vitamin D (Vitamin D) 2,000 intlu DAILY ORAL 09/14/18 09:00 10/14/18 08:59 09/18/18 09:16 Zolpidem Tartrate (Ambien) 5 mg HSPRN PRN ORAL Insomnia 09/13/18 18:00 09/20/18 17:59 Miranda Cordero M.D. Sep 19, 2018 12:51
--- NOTE | 2018-09-19 13:09 | Pulmonology Progress Note ---
Assessment/Plan Problems: (1) C. difficile colitis (2) Severe protein-calorie malnutrition (3) HIV (human immunodeficiency virus infection) (4) ATN (acute tubular necrosis) (5) History of rectal cancer Assessment/Plan no new complains all reviewed Cdiff negative slightly better still has diarrhea refusing to go to rehab iv fluids iv abx check electrolytes symptomatic treatment Subjective ROS Limited/Unobtainable: No Constitutional: Reports: no symptoms HEENT: Repors: no symptoms Respiratory: Reports: no symptoms Allergies: Coded Allergies: CODEINE (Unverified Allergy, Unknown, 11/28/17) EMTRICITABINE (Verified Allergy, Unknown, anxiousness, 08/31/18) SULFAMETHOXAZOLE (Unverified Allergy, Unknown, 10/27/17) TENOFOVIR (Verified Allergy, Unknown, anxiousness, 08/31/18) TRIMETHOPRIM (Unverified Allergy, Unknown, 10/27/17) Objective Last 24 Hour Vital Signs Date Time Temp Pulse Resp B/P (MAP) Pulse Ox O2 Delivery O2 Flow Rate FiO2 09/19/18 09:00 Room Air 09/19/18 08:00 97.5 103 16 122/79 (93) 94 09/19/18 04:00 98.8 102 19 96/60 (72) 96 09/19/18 00:00 99.1 118 18 133/80 (97) 96 09/18/18 21:00 Room Air 09/18/18 20:00 99.6 123 18 130/77 (94) 96 09/18/18 16:00 98.0 75 19 108/66 (80) 97 Intake and Output 09/18/18 09/19/18 19:00 07:00 Intake Total 820 ml 480 ml Balance 820 ml 480 ml Intake Oral 820 ml 480 ml # Voids 6 4 # Bowel Movements 5 Objective General Appearance: WD/WN HEENT: normocephalic, atraumatic Respiratory/Chest: chest wall non-tender, lungs clear Cardiovascular: normal peripheral pulses, normal rate Abdomen: normal bowel sounds, soft, non tender Extremities: no cyanosis Skin: no ulcers Laboratory Tests 09/19/18 05:20: White Blood Count 11.2H, Red Blood Count 3.81L, Hemoglobin 12.8L, Hematocrit 37.4L, Mean Corpuscular Volume 98, Mean Corpuscular Hemoglobin 33.6H, Mean Corpuscular Hemoglobin Concent 34.2, Red Cell Distribution Width 12.0, Platelet Count 250, Mean Platelet Volume 7.0, Neutrophils (%) (Auto) 68.9, Lymphocytes (% ) (Auto) 25.3, Monocytes (%) (Auto) 5.2, Eosinophils (%) (Auto) 0.2, Basophils ( %) (Auto) 0.4, Sodium Level 139, Potassium Level 3.7, Chloride Level 106, Carbon Dioxide Level 23, Anion Gap 10, Blood Urea Nitrogen 25H, Creatinine 1.5H , Estimat Glomerular Filtration Rate 46.3, Glucose Level 91, Calcium Level 9.0, Phosphorus Level 3.9, Magnesium Level 1.9 Current Medications Medications (Trade) Dose Ordered Sig/Roman Route PRN Reason Start Time Stop Time Status Last Admin Dose Admin Acetaminophen (Tylenol) 650 mg Q4H PRN ORAL fever (temp>100.5F) 09/13/18 18:00 10/13/18 17:59 Al Hydroxide/Mg Hydroxide (Mylanta II) 30 ml Q6H PRN ORAL dyspepsia 09/13/18 18:00 10/13/18 17:59 Amlodipine Besylate (Norvasc) 10 mg DAILY ORAL 09/14/18 09:00 10/14/18 08:59 09/18/18 09:16 Atovaquone (Mepron Susp) 1,500 mg DAILY ORAL 09/14/18 12:00 10/14/18 11:59 09/18/18 09:17 Baclofen (Lioresal) 10 mg THREE TIMES A DAY PRN ORAL Muscle Spasm 09/13/18 23:15 10/13/18 23:14 Calcium Carbonate (Os-Fazal) 500 mg DAILY ORAL 09/14/18 09:00 10/14/18 08:59 09/18/18 09:16 Clotrimazole (Lotrimin) 1 applic TWICE A DAY TOPIC 09/14/18 09:00 10/14/18 08:59 09/18/18 17:21 Dextrose (Dextrose 50%) 25 ml Q30M PRN IV Hypoglycemia 09/13/18 18:00 10/13/18 17:54 Dextrose (Dextrose 50%) 50 ml Q30M PRN IV hypoglycemia 09/13/18 18:00 10/13/18 17:59 Diphenoxylate HCl/ Atropine (Lomotil) 2.5 mg Q4H PRN ORAL Diarrhea 09/18/18 13:45 10/18/18 13:44 09/19/18 12:33 Fidaxomicin (Dificid) 200 mg EVERY 12 HOURS ORAL 09/14/18 21:00 09/21/18 20:59 09/18/18 09:17 Finasteride (Proscar) 5 mg DAILY ORAL 09/14/18 09:00 10/14/18 08:59 09/18/18 09:16 Heparin Sodium (Porcine) (Heparin 5000 units/ml) 5,000 units EVERY 8 HOURS SUBQ 09/16/18 22:00 10/16/18 21:59 09/19/18 06:33 Lorazepam (Ativan 2mg/ml 1ml) 0.5 mg Q4H PRN IV For Anxiety 09/13/18 18:00 09/20/18 17:59 09/17/18 03:22 Lorazepam (Ativan) 1 mg TWICE A DAY PRN ORAL For Anxiety 09/13/18 23:15 09/20/18 23:14 09/18/18 17:21 Losartan Potassium (Cozaar) 50 mg DAILY ORAL 09/14/18 09:00 10/14/18 08:59 09/18/18 09:16 Meloxicam (Mobic) 15 mg DAILY ORAL 09/14/18 09:00 10/14/18 08:59 09/18/18 09:17 Metoprolol Tartrate (Lopressor) 25 mg EVERY 12 HOURS ORAL 09/14/18 09:00 10/14/18 08:59 09/18/18 09:17 Mirtazapine (Remeron) 15 mg BEDTIME ORAL 09/14/18 21:00 10/14/18 20:59 09/17/18 20:49 Morphine Sulfate (Morphine Sulfate) 4 mg Q4H PRN IVP Severe Pain (Pain Scale 7-10) 09/13/18 23:00 09/20/18 22:59 09/19/18 00:23 Ondansetron HCl (Zofran) 4 mg Q6H PRN IVP Nausea & Vomiting 09/13/18 18:00 10/13/18 17:59 09/19/18 09:14 Paroxetine HCl (Paxil) 40 mg DAILY ORAL 09/14/18 09:00 10/14/18 08:59 09/18/18 09:17 Patient Own Medication (Patient's Own Med) 1 ea BID ORAL 09/14/18 18:00 10/14/18 17:59 09/18/18 17:21 Patient Own Medication (Patient's Own Med) 1 ea BID ORAL 09/14/18 18:00 10/14/18 17:59 09/18/18 17:21 Patient Own Medication (Patient's Own Med) 1 ea DAILY ORAL 09/15/18 15:00 10/15/18 14:59 09/18/18 09:18 Promethazine HCl (Phenergan) 25 mg Q8H PRN ORAL Nausea & Vomiting 09/19/18 11:45 10/19/18 11:44 Tamsulosin HCl (Flomax) 0.4 mg BEDTIME ORAL 09/14/18 21:00 10/14/18 20:59 09/18/18 22:42 Vitamin D (Vitamin D) 2,000 intlu DAILY ORAL 09/14/18 09:00 10/14/18 08:59 09/18/18 09:16 Zolpidem Tartrate (Ambien) 5 mg HSPRN PRN ORAL Insomnia 09/13/18 18:00 09/20/18 17:59 Oliverio Rm MD Sep 19, 2018 13:09
--- NOTE | 2018-09-19 13:28 | NUR ---
*-* INSURANCE *-* CLINICALS AND REVIEWS HAVE BEEN FAXED TO: [facility] NCM: CARMITA P: [phone] CELL: [phone] F: [phone]
[2018-09-19 15:50] VITALS: BP 127/81
[2018-09-19] MEDS: LORazepam Inj 2mg/ml 1ml IV PRN (16:44)
[2018-09-19] MEDS: Cholestyramine 4gm Pkt ORAL SCH (17:19)
--- NOTE | 2018-09-19 18:43 | NUR ---
NURSE NOTES: Received patient from Claudia RN, patient is up in bed, no distress noted, bed is locked and in lowest position, call light within reach, will continue to monitor.
--- NOTE | 2018-09-19 19:18 | NUR ---
HAND-OFF: Report given to Claudia WHITEHEAD.
--- NOTE | 2018-09-19 19:25 | NUR ---
NURSE NOTES: Received report from CHARLEY Sullivan. Patient sleeping. On room air, no signs of distress or labored breathing. Bed in lowest position with call light in reach. Will continue with plan of care.
[2018-09-19 20:00] VITALS: BP 152/71
[2018-09-19] MEDS: Tamsulosin 0.4mg cap ORAL SCH (21:00)
--- NOTE | 2018-09-19 23:40 | Internal Med Progress Note ---
Subjective Physician Name Carlos Barragan Attending Physician Carlos Barragan MD Current Medications Medications (Trade) Dose Ordered Sig/Roman Route PRN Reason Start Time Stop Time Status Last Admin Dose Admin Acetaminophen (Tylenol) 650 mg Q4H PRN ORAL fever (temp>100.5F) 09/13/18 18:00 10/13/18 17:59 Al Hydroxide/Mg Hydroxide (Mylanta II) 30 ml Q6H PRN ORAL dyspepsia 09/13/18 18:00 10/13/18 17:59 Amlodipine Besylate (Norvasc) 10 mg DAILY ORAL 09/14/18 09:00 10/14/18 08:59 09/18/18 09:16 Atovaquone (Mepron Susp) 1,500 mg DAILY ORAL 09/14/18 12:00 10/14/18 11:59 09/18/18 09:17 Baclofen (Lioresal) 10 mg THREE TIMES A DAY PRN ORAL Muscle Spasm 09/13/18 23:15 10/13/18 23:14 Calcium Carbonate (Os-Fazal) 500 mg DAILY ORAL 09/14/18 09:00 10/14/18 08:59 09/18/18 09:16 Cholestyramine Resin (Questran) 4 gm THREE TIMES A DAY ORAL 09/19/18 18:00 10/19/18 17:59 Clotrimazole (Lotrimin) 1 applic TWICE A DAY TOPIC 09/14/18 09:00 10/14/18 08:59 09/18/18 17:21 Dextrose (Dextrose 50%) 25 ml Q30M PRN IV Hypoglycemia 09/13/18 18:00 10/13/18 17:54 Dextrose (Dextrose 50%) 50 ml Q30M PRN IV hypoglycemia 09/13/18 18:00 10/13/18 17:59 Diphenoxylate HCl/ Atropine (Lomotil) 2.5 mg Q4H PRN ORAL Diarrhea 09/18/18 13:45 10/18/18 13:44 09/19/18 12:33 Fidaxomicin (Dificid) 200 mg EVERY 12 HOURS ORAL 09/14/18 21:00 09/21/18 20:59 09/18/18 09:17 Finasteride (Proscar) 5 mg DAILY ORAL 09/14/18 09:00 10/14/18 08:59 09/18/18 09:16 Heparin Sodium (Porcine) (Heparin 5000 units/ml) 5,000 units EVERY 8 HOURS SUBQ 09/16/18 22:00 10/16/18 21:59 09/19/18 21:02 Lorazepam (Ativan 2mg/ml 1ml) 0.5 mg Q4H PRN IV For Anxiety 09/13/18 18:00 09/20/18 17:59 09/19/18 16:44 Lorazepam (Ativan) 1 mg TWICE A DAY PRN ORAL For Anxiety 09/13/18 23:15 09/20/18 23:14 09/18/18 17:21 Losartan Potassium (Cozaar) 50 mg DAILY ORAL 09/14/18 09:00 10/14/18 08:59 09/18/18 09:16 Meloxicam (Mobic) 15 mg DAILY ORAL 09/14/18 09:00 10/14/18 08:59 09/18/18 09:17 Metoprolol Tartrate (Lopressor) 25 mg EVERY 12 HOURS ORAL 09/14/18 09:00 10/14/18 08:59 09/18/18 09:17 Mirtazapine (Remeron) 15 mg BEDTIME ORAL 09/14/18 21:00 10/14/18 20:59 09/17/18 20:49 Morphine Sulfate (Morphine Sulfate) 4 mg Q4H PRN IVP Severe Pain (Pain Scale 7-10) 09/13/18 23:00 09/20/18 22:59 09/19/18 21:01 Ondansetron HCl (Zofran) 4 mg Q6H PRN IVP Nausea & Vomiting 09/13/18 18:00 10/13/18 17:59 09/19/18 09:14 Paroxetine HCl (Paxil) 40 mg DAILY ORAL 09/14/18 09:00 10/14/18 08:59 09/18/18 09:17 Patient Own Medication (Patient's Own Med) 1 ea BID ORAL 09/14/18 18:00 10/14/18 17:59 09/18/18 17:21 Patient Own Medication (Patient's Own Med) 1 ea BID ORAL 09/14/18 18:00 10/14/18 17:59 09/18/18 17:21 Patient Own Medication (Patient's Own Med) 1 ea DAILY ORAL 09/15/18 15:00 10/15/18 14:59 09/18/18 09:18 Promethazine HCl (Phenergan) 25 mg Q8H PRN ORAL Nausea & Vomiting 09/19/18 11:45 10/19/18 11:44 09/19/18 21:01 Tamsulosin HCl (Flomax) 0.4 mg BEDTIME ORAL 09/14/18 21:00 10/14/18 20:59 09/18/18 22:42 Vitamin D (Vitamin D) 2,000 intlu DAILY ORAL 09/14/18 09:00 10/14/18 08:59 09/18/18 09:16 Zolpidem Tartrate (Ambien) 5 mg HSPRN PRN ORAL Insomnia 09/13/18 18:00 09/20/18 17:59 Allergies: Coded Allergies: CODEINE (Unverified Allergy, Unknown, 11/28/17) EMTRICITABINE (Verified Allergy, Unknown, anxiousness, 08/31/18) SULFAMETHOXAZOLE (Unverified Allergy, Unknown, 10/27/17) TENOFOVIR (Verified Allergy, Unknown, anxiousness, 08/31/18) TRIMETHOPRIM (Unverified Allergy, Unknown, 10/27/17) Subjective awake, alert, responsive, no acute distress,less diarrhea. Objective Last Vital Signs Date Time Temp Pulse Resp B/P (MAP) Pulse Ox O2 Delivery O2 Flow Rate FiO2 09/19/18 21:00 Room Air 09/19/18 20:00 98.3 93 18 152/71 (98) 94 Laboratory Tests Test 09/19/18 05:20 White Blood Count 11.2 K/UL (4.8-10.8) H Red Blood Count 3.81 M/UL (4.70-6.10) L Hemoglobin 12.8 G/DL (14.2-18.0) L Hematocrit 37.4 % (42.0-52.0) L Mean Corpuscular Volume 98 FL (80-99) Mean Corpuscular Hemoglobin 33.6 PG (27.0-31.0) H Mean Corpuscular Hemoglobin Concent 34.2 G/DL (32.0-36.0) Red Cell Distribution Width 12.0 % (11.6-14.8) Platelet Count 250 K/UL (150-450) Mean Platelet Volume 7.0 FL (6.5-10.1) Neutrophils (%) (Auto) 68.9 % (45.0-75.0) Lymphocytes (%) (Auto) 25.3 % (20.0-45.0) Monocytes (%) (Auto) 5.2 % (1.0-10.0) Eosinophils (%) (Auto) 0.2 % (0.0-3.0) Basophils (%) (Auto) 0.4 % (0.0-2.0) Sodium Level 139 MMOL/L (136-145) Potassium Level 3.7 MMOL/L (3.5-5.1) Chloride Level 106 MMOL/L (98-107) Carbon Dioxide Level 23 MMOL/L (21-32) Anion Gap 10 mmol/L (5-15) Blood Urea Nitrogen 25 mg/dL (7-18) H Creatinine 1.5 MG/DL (0.55-1.30) H Estimat Glomerular Filtration Rate 46.3 mL/min (>60) Glucose Level 91 MG/DL (74-106) Calcium Level 9.0 MG/DL (8.5-10.1) Phosphorus Level 3.9 MG/DL (2.5-4.9) Magnesium Level 1.9 MG/DL (1.8-2.4) Intake and Output 09/18/18 09/19/18 19:00 07:00 Intake Total 820 ml 480 ml Balance 820 ml 480 ml Intake Oral 820 ml 480 ml # Voids 6 4 # Bowel Movements 5 Objective General: No acute distress, awake and alert HEENT: NCAT, sclera anicteric, PERRL, EOMI. Neck: Supple, no significant jugular venous distention, Lungs: fair inspiratory effort, decreased air in the bases, no Wheeze or Rales. Heart: Regular rate and rhythm, normal S1/S2, no murmur. Abdomen: soft, nontender, nondistended. Normoactive bowel sounds. / Rectal: Refused and deferred. Extremities: No Cyanosis , clubbing or edema, contracted lower extremity. Neuro: A&O x 3, Able to move all extremities Skin: warm, no rash. Psych: Normal mood and affect Assessment/Plan Assessment/Plan Cdiff, ongoing diarrhea on oral vancomycin --09/06 Cdiff toxin a/b + -09/06 SP Colonoscopy: proctitis -stool cx: normal thomas -Giardia ag, cryptosporidium neg Nausea/vomiting, SP Recent UTI, s/p complete Abx therapy. HIV/AIDS- on ARV (per pt VL UD) -09/2018 182 (10.1%) -11/2017 CD4 323 Hx of rectal CA CVA 2004 HTN Plan: -Abx: Fidaxomicin (#6/10) -09/13 SP PO Vancomycin #8 -f/u cx -DVT prophylaxis with heparin subcu. -Contiue ARV (Genvoya, prezista, intelence) -Atovaquone for PCP px -Monitor Lab. DC planning to SNF once bed available. Carlos Barragan MD Sep 19, 2018 23:40
[2018-09-20] VITALS (7 sets, daily range): BP systolic 101–133; BP diastolic 55–80
[2018-09-20] MEDS: Heparin 5000 units/ml inj SUBQ SCH ×3 (05:26→22:00)
[2018-09-20] MEDS: Morphine Sulfate 4mg/ml Inj (IV USE ONLY) IVP PRN ×2 (05:27→16:58)
[2018-09-20 07:03] LABS: BASOPHILS % (AUTO) 0.9 % (0.0-2.0); EOSINOPHILS % (AUTO) 1.3 % (0.0-3.0); HEMATOCRIT 33.9 % (42.0-52.0); HEMOGLOBIN 11.5 G/DL (14.2-18.0); LYMPHOCYTES % (AUTO) 38.5 % (20.0-45.0); MEAN CORPUSCULAR VOLUME 98 FL (80-99); MONOCYTES % (AUTO) 6.1 % (1.0-10.0); NEUTROPHILS % (AUTO) 53.1 % (45.0-75.0); PLATELET COUNT 203 K/UL (150-450); RED BLOOD COUNT 3.45 M/UL (4.70-6.10); RED CELL DISTRIBUTION WIDTH 11.9 % (11.6-14.8)
[2018-09-20 07:23] LABS: PHOSPHORUS 3.2 MG/DL (2.5-4.9)
[2018-09-20 07:55] LABS: ALANINE AMINOTRANSFERASE 30 U/L (12-78); ALBUMIN/GLOBULIN RATIO 0.7 (1.0-2.7); ALKALINE PHOSPHATASE 99 U/L (46-116); ANION GAP 13 mmol/L (5-15); ASPARTATE AMINO TRANSFERASE 30 U/L (15-37); BILIRUBIN,TOTAL 0.5 MG/DL (0.2-1.0); BLOOD UREA NITROGEN 24 mg/dL (7-18); CARBON DIOXIDE 23 MMOL/L (21-32); CHLORIDE 106 MMOL/L (98-107); CREATININE 1.2 MG/DL (0.55-1.30); POTASSIUM 3.9 MMOL/L (3.5-5.1); SODIUM 142 MMOL/L (136-145)
--- NOTE | 2018-09-20 07:58 | NUR ---
HAND-OFF: Report given to CHARLEY Ríos.
--- NOTE | 2018-09-20 08:14 | NUR ---
NURSE NOTES: Patient alert and oriented,sitting up in bed and eating breakfast,respiration unlabored,no complaints of loose stools at this time,will monitor,call light within reach,bed alarm is on.
[2018-09-20] MEDS ORDERED: Metoprolol Tartrate 12.5mg TAB ONE (08:52)
[2018-09-20] MEDS: Metoprolol 25mg tab ORAL SCH ×2 (09:00→20:27)
[2018-09-20] MEDS: PREZISTA 600 MG ORAL SCH ×2 (09:00→18:37)
[2018-09-20] MEDS: INTELENCE 200 MG ORAL SCH ×2 (09:00→18:37)
[2018-09-20] MEDS: Losartan 50mg tab ORAL SCH (09:00)
[2018-09-20] MEDS: Cholestyramine 4gm Pkt ORAL SCH ×3 (09:00→18:00)
[2018-09-20] MEDS: Atovaquone 750mg/5ml Susp ORAL SCH (09:07)
[2018-09-20] MEDS: Meloxicam 15 MG TAB ORAL SCH (09:08)
[2018-09-20] MEDS: GENVOYA ORAL SCH (09:09)
[2018-09-20] MEDS: PARoxetine 20mg tab ORAL SCH (09:09)
[2018-09-20] MEDS: Vitamin D 1000 IU Tab ORAL SCH (09:11)
[2018-09-20] MEDS ORDERED: Loperamide 2mg cap ORAL PRN (09:45)
--- NOTE | 2018-09-20 11:35 | NUR ---
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
--- NOTE | 2018-09-20 12:16 | GI Progress Note ---
Assessment/Plan Problems: (1) Severe protein-calorie malnutrition ICD Codes: E43 - Unspecified severe protein-calorie malnutrition SNOMED: 492993661 (2) Intractable abdominal pain ICD Codes: R10.9 - Unspecified abdominal pain SNOMED: 44045473, 198091554 (3) Electrolyte imbalance ICD Codes: E87.8 - Other disorders of electrolyte and fluid balance, not elsewhere classified SNOMED: 926564131 (4) Diarrhea ICD Codes: R19.7 - Diarrhea, unspecified SNOMED: 11752459 (5) Dehydration ICD Codes: E86.0 - Dehydration SNOMED: 42287097 (6) C. difficile colitis ICD Codes: A04.72 - Enterocolitis due to Clostridium difficile, not specified as recurrent SNOMED: 901059194 (7) Gastroenteritis ICD Codes: K52.9 - Noninfective gastroenteritis and colitis, unspecified SNOMED: 45851073 (8) Rectal cancer ICD Codes: C20 - Malignant neoplasm of rectum SNOMED: 318205969 Status: stable Status Narrative Discussed with Dr. Germain. Assessment/Plan Status post colonoscopy SUMMARY OF FINDINGS: 1. Focal proctitis suspicious for C. diff versus ulcerative colitis, status post biopsy. 2. Status post biopsy of the right and left colon to evaluate microscopic colitis. Cdiff negative RECOMMENDATIONS: okay for DC per GI standpoint Follow up biopsy results and treat accordingly. >> negative for microscopic colitis Antibiotics per infectious disease H2B PRN transfusions DC Reglan, add promethazine Advance diet Imodium prn PT evaluation Follow labs The patient was seen and examined at bedside and all new and available data was reviewed in the patients chart. I agree with the above findings, impression and plan. (Patient seen earlier today. Signature stamp does not reflect patient encounter time.). - Dejan Germain MD Subjective Subjective No reported bowel movement today nausea improved diarrhea improved Objective Last 24 Hour Vital Signs Date Time Temp Pulse Resp B/P (MAP) Pulse Ox O2 Delivery O2 Flow Rate FiO2 09/20/18 10:36 Room Air 09/20/18 09:01 100 115/80 (92) 09/20/18 09:00 100 115/80 09/20/18 09:00 115/80 09/20/18 09:00 100 115/80 09/20/18 08:11 98.4 79 16 123/68 (86) 96 09/20/18 04:00 98.7 79 18 105/55 (72) 94 09/20/18 00:00 97.7 85 18 116/79 (91) 94 09/19/18 21:00 Room Air 09/19/18 20:00 98.3 93 18 152/71 (98) 94 09/19/18 15:50 98.0 100 18 127/81 (96) 95 09/19/18 15:02 99.2 Intake and Output 09/19/18 09/20/18 18:59 06:59 Intake Total 840 ml Balance 840 ml Intake Oral 840 ml # Voids 3 Laboratory Tests Test 09/20/18 05:30 White Blood Count 7.0 K/UL (4.8-10.8) Red Blood Count 3.45 M/UL (4.70-6.10) L Hemoglobin 11.5 G/DL (14.2-18.0) L Hematocrit 33.9 % (42.0-52.0) L Mean Corpuscular Volume 98 FL (80-99) Mean Corpuscular Hemoglobin 33.4 PG (27.0-31.0) H Mean Corpuscular Hemoglobin Concent 34.0 G/DL (32.0-36.0) Red Cell Distribution Width 11.9 % (11.6-14.8) Platelet Count 203 K/UL (150-450) Mean Platelet Volume 6.5 FL (6.5-10.1) Neutrophils (%) (Auto) 53.1 % (45.0-75.0) Lymphocytes (%) (Auto) 38.5 % (20.0-45.0) Monocytes (%) (Auto) 6.1 % (1.0-10.0) Eosinophils (%) (Auto) 1.3 % (0.0-3.0) Basophils (%) (Auto) 0.9 % (0.0-2.0) Sodium Level 142 MMOL/L (136-145) Potassium Level 3.9 MMOL/L (3.5-5.1) Chloride Level 106 MMOL/L (98-107) Carbon Dioxide Level 23 MMOL/L (21-32) Anion Gap 13 mmol/L (5-15) Blood Urea Nitrogen 24 mg/dL (7-18) H Creatinine 1.2 MG/DL (0.55-1.30) Estimat Glomerular Filtration Rate 59.9 mL/min (>60) Glucose Level 84 MG/DL (74-106) Calcium Level 9.0 MG/DL (8.5-10.1) Phosphorus Level 3.2 MG/DL (2.5-4.9) Magnesium Level 2.1 MG/DL (1.8-2.4) Total Bilirubin 0.5 MG/DL (0.2-1.0) Aspartate Amino Transf (AST/SGOT) 30 U/L (15-37) Alanine Aminotransferase (ALT/SGPT) 30 U/L (12-78) Alkaline Phosphatase 99 U/L (46-116) Total Protein 7.4 G/DL (6.4-8.2) Albumin 3.0 G/DL (3.4-5.0) L Globulin 4.4 g/dL Albumin/Globulin Ratio 0.7 (1.0-2.7) L Height (Feet): 5 Height (Inches): 10.00 Weight (Pounds): 154 General Appearance: WD/WN, no apparent distress, alert Cardiovascular: normal rate Respiratory/Chest: normal breath sounds, no respiratory distress Abdominal Exam: normal bowel sounds, non tender, soft Extremities: normal range of motion, non-tender Objective No BM documented today. Jasen Brink NP Sep 20, 2018 12:16
[2018-09-20] MEDS ORDERED: DIFICID200 MG ORAL (13:02)
[2018-09-20] MEDS ORDERED: QUESTRAN POWDER4 GM ORAL (13:02)
--- NOTE | 2018-09-20 13:04 | Pulmonology Progress Note ---
Assessment/Plan Problems: (1) C. difficile colitis (2) Severe protein-calorie malnutrition (3) HIV (human immunodeficiency virus infection) (4) ATN (acute tubular necrosis) (5) History of rectal cancer Assessment/Plan no new complains all reviewed Cdiff negative slightly better wants to go home refusing to go to rehab iv fluids iv abx check electrolytes symptomatic treatment All medications and treatment were reviewed. Subjective ROS Limited/Unobtainable: No Constitutional: Reports: no symptoms HEENT: Repors: no symptoms Respiratory: Reports: no symptoms Allergies: Coded Allergies: CODEINE (Unverified Allergy, Unknown, 11/28/17) EMTRICITABINE (Verified Allergy, Unknown, anxiousness, 08/31/18) SULFAMETHOXAZOLE (Unverified Allergy, Unknown, 10/27/17) TENOFOVIR (Verified Allergy, Unknown, anxiousness, 08/31/18) TRIMETHOPRIM (Unverified Allergy, Unknown, 10/27/17) Objective Last 24 Hour Vital Signs Date Time Temp Pulse Resp B/P (MAP) Pulse Ox O2 Delivery O2 Flow Rate FiO2 09/20/18 12:00 97.1 77 12 133/76 (95) 96 09/20/18 10:36 Room Air 09/20/18 09:01 100 115/80 (92) 09/20/18 09:00 100 115/80 09/20/18 09:00 115/80 09/20/18 09:00 100 115/80 09/20/18 08:11 98.4 79 16 123/68 (86) 96 09/20/18 04:00 98.7 79 18 105/55 (72) 94 09/20/18 00:00 97.7 85 18 116/79 (91) 94 09/19/18 21:00 Room Air 09/19/18 20:00 98.3 93 18 152/71 (98) 94 09/19/18 15:50 98.0 100 18 127/81 (96) 95 09/19/18 15:02 99.2 Intake and Output 09/19/18 09/20/18 18:59 06:59 Intake Total 840 ml Balance 840 ml Intake Oral 840 ml # Voids 3 Objective General Appearance: WD/WN HEENT: normocephalic, atraumatic Respiratory/Chest: chest wall non-tender, lungs clear Cardiovascular: normal peripheral pulses, normal rate Abdomen: normal bowel sounds, soft, non tender Extremities: no cyanosis Skin: no ulcers Laboratory Tests 09/20/18 05:30: White Blood Count 7.0, Red Blood Count 3.45L, Hemoglobin 11.5L, Hematocrit 33.9L , Mean Corpuscular Volume 98, Mean Corpuscular Hemoglobin 33.4H, Mean Corpuscular Hemoglobin Concent 34.0, Red Cell Distribution Width 11.9, Platelet Count 203, Mean Platelet Volume 6.5, Neutrophils (%) (Auto) 53.1, Lymphocytes (% ) (Auto) 38.5, Monocytes (%) (Auto) 6.1, Eosinophils (%) (Auto) 1.3, Basophils ( %) (Auto) 0.9, Sodium Level 142, Potassium Level 3.9, Chloride Level 106, Carbon Dioxide Level 23, Anion Gap 13, Blood Urea Nitrogen 24H, Creatinine 1.2, Estimat Glomerular Filtration Rate 59.9, Glucose Level 84, Calcium Level 9.0, Phosphorus Level 3.2, Magnesium Level 2.1, Total Bilirubin 0.5, Aspartate Amino Transf (AST/SGOT) 30, Alanine Aminotransferase (ALT/SGPT) 30, Alkaline Phosphatase 99, Total Protein 7.4, Albumin 3.0L, Globulin 4.4, Albumin/Globulin Ratio 0.7L Current Medications Medications (Trade) Dose Ordered Sig/Roman Route PRN Reason Start Time Stop Time Status Last Admin Dose Admin Acetaminophen (Tylenol) 650 mg Q4H PRN ORAL fever (temp>100.5F) 09/13/18 18:00 10/13/18 17:59 Al Hydroxide/Mg Hydroxide (Mylanta II) 30 ml Q6H PRN ORAL dyspepsia 09/13/18 18:00 10/13/18 17:59 Amlodipine Besylate (Norvasc) 10 mg DAILY ORAL 09/14/18 09:00 10/14/18 08:59 09/18/18 09:16 Atovaquone (Mepron Susp) 1,500 mg DAILY ORAL 09/14/18 12:00 10/14/18 11:59 09/20/18 09:07 Baclofen (Lioresal) 10 mg THREE TIMES A DAY PRN ORAL Muscle Spasm 09/13/18 23:15 10/13/18 23:14 Calcium Carbonate (Os-Fazal) 500 mg DAILY ORAL 09/14/18 09:00 10/14/18 08:59 09/18/18 09:16 Cholestyramine Resin (Questran) 4 gm THREE TIMES A DAY ORAL 09/19/18 18:00 10/19/18 17:59 Clotrimazole (Lotrimin) 1 applic TWICE A DAY TOPIC 09/14/18 09:00 10/14/18 08:59 09/20/18 09:11 Dextrose (Dextrose 50%) 25 ml Q30M PRN IV Hypoglycemia 09/13/18 18:00 10/13/18 17:54 Dextrose (Dextrose 50%) 50 ml Q30M PRN IV hypoglycemia 09/13/18 18:00 10/13/18 17:59 Diphenoxylate HCl/ Atropine (Lomotil) 2.5 mg Q4H PRN ORAL Diarrhea 09/18/18 13:45 10/18/18 13:44 09/19/18 12:33 Fidaxomicin (Dificid) 200 mg EVERY 12 HOURS ORAL 09/14/18 21:00 09/21/18 20:59 09/20/18 09:20 Finasteride (Proscar) 5 mg DAILY ORAL 09/14/18 09:00 10/14/18 08:59 09/20/18 09:09 Heparin Sodium (Porcine) (Heparin 5000 units/ml) 5,000 units EVERY 8 HOURS SUBQ 09/16/18 22:00 10/16/18 21:59 09/20/18 05:26 Loperamide HCl (Imodium) 2 mg Q4H PRN ORAL Diarrhea 09/20/18 09:45 10/20/18 09:44 Lorazepam (Ativan 2mg/ml 1ml) 0.5 mg Q4H PRN IV For Anxiety 09/13/18 18:00 09/20/18 17:59 09/19/18 16:44 Lorazepam (Ativan) 1 mg TWICE A DAY PRN ORAL For Anxiety 09/13/18 23:15 09/20/18 23:14 09/18/18 17:21 Losartan Potassium (Cozaar) 50 mg DAILY ORAL 09/14/18 09:00 10/14/18 08:59 09/18/18 09:16 Meloxicam (Mobic) 15 mg DAILY ORAL 09/14/18 09:00 10/14/18 08:59 09/20/18 09:08 Metoprolol Tartrate (Lopressor) 25 mg EVERY 12 HOURS ORAL 09/14/18 09:00 10/14/18 08:59 09/18/18 09:17 Mirtazapine (Remeron) 15 mg BEDTIME ORAL 09/14/18 21:00 10/14/18 20:59 09/17/18 20:49 Morphine Sulfate (Morphine Sulfate) 4 mg Q4H PRN IVP Severe Pain (Pain Scale 7-10) 09/13/18 23:00 09/20/18 22:59 09/20/18 05:27 Ondansetron HCl (Zofran) 4 mg Q6H PRN IVP Nausea & Vomiting 09/13/18 18:00 10/13/18 17:59 09/20/18 01:25 Paroxetine HCl (Paxil) 40 mg DAILY ORAL 09/14/18 09:00 10/14/18 08:59 09/20/18 09:09 Patient Own Medication (Patient's Own Med) 1 ea BID ORAL 09/14/18 18:00 10/14/18 17:59 09/18/18 17:21 Patient Own Medication (Patient's Own Med) 1 ea BID ORAL 09/14/18 18:00 10/14/18 17:59 09/18/18 17:21 Patient Own Medication (Patient's Own Med) 1 ea DAILY ORAL 09/15/18 15:00 10/15/18 14:59 09/20/18 09:09 Promethazine HCl (Phenergan) 25 mg Q8H PRN ORAL Nausea & Vomiting 09/19/18 11:45 10/19/18 11:44 09/19/18 21:01 Tamsulosin HCl (Flomax) 0.4 mg BEDTIME ORAL 09/14/18 21:00 10/14/18 20:59 09/18/18 22:42 Vitamin D (Vitamin D) 2,000 intlu DAILY ORAL 09/14/18 09:00 10/14/18 08:59 09/20/18 09:11 Zolpidem Tartrate (Ambien) 5 mg HSPRN PRN ORAL Insomnia 09/13/18 18:00 09/20/18 17:59 Oliverio Rm MD 20, 2019 13:04
--- NOTE | 2018-09-20 13:22 | NUR ---
NURSE NOTES: Per Dr Rm, pt is being discharged and leaving with the new prescription of cholestyramine and fidaxomicin. [place] [facility] [place] Per pharmacist, medications are not available and will be delivered to the patients address tomorrow
--- NOTE | 2018-09-20 15:22 | Infectious Diseases Prog Note ---
Assessment/Plan Assessment/Plan Abx: None Assessment: Cdiff, failed oral vancomycin; now improving --09/06 Cdiff toxin a/b +; repeat Cdiff neg x2 -09/06 SP Colonoscopy: proctitis -stool cx: normal thomas -Giardia ag, cryptosporidium neg Nausea/vomiting, recurrent nausea Afebrile Mild leukocytosis, SP Recent UTI, s/p Rx -u/a wbc 10-15, shirley neg, leuk +3; ucx >100K PROTEUS MIRABILIS ( I Levo; R Amp, bactrim, Cipro, Nitro; S Ceftriaxone) HIV/AIDS- on ARV -09/2018 182 (10.1%), VL UD -11/2017 CD4 323 hx of rectal CA CVA 2004 HTN Plan: -Cont Fidaxomicin #/ as patient not improved with oral vancomycin -09/13 SP PO Vancomycin #8 -f/u cx -Monitor CBC/CMP, temperatures -Contiue ARV (Genvoya, prezista, intelence)- if one medicine is missing, please hold all of them until all medicines are available -Atovaquone for PCP px -f/u HIV VL -management of nausea per GI -On Imodium for diarrhea management; ok to give as toxin neg and patient on adequate Cdiff tx Thank you for this consultation. Will continue to follow along with you. Discussed with RN and GI Subjective Allergies: Coded Allergies: CODEINE (Unverified Allergy, Unknown, 11/28/17) EMTRICITABINE (Verified Allergy, Unknown, anxiousness, 08/31/18) SULFAMETHOXAZOLE (Unverified Allergy, Unknown, 10/27/17) TENOFOVIR (Verified Allergy, Unknown, anxiousness, 08/31/18) TRIMETHOPRIM (Unverified Allergy, Unknown, 10/27/17) Subjective afebrile mild leukocytosis resolved diarrhea improving, now soft stool Objective Vital Signs Last 24 Hour Vital Signs Date Time Temp Pulse Resp B/P (MAP) Pulse Ox O2 Delivery O2 Flow Rate FiO2 09/20/18 12:00 97.1 77 12 133/76 (95) 96 09/20/18 10:36 Room Air 09/20/18 09:01 100 115/80 (92) 09/20/18 09:00 100 115/80 09/20/18 09:00 115/80 09/20/18 09:00 100 115/80 09/20/18 08:11 98.4 79 16 123/68 (86) 96 09/20/18 04:00 98.7 79 18 105/55 (72) 94 09/20/18 00:00 97.7 85 18 116/79 (91) 94 09/19/18 21:00 Room Air 09/19/18 20:00 98.3 93 18 152/71 (98) 94 09/19/18 15:50 98.0 100 18 127/81 (96) 95 Height (Feet): 5 Height (Inches): 10.00 Weight (Pounds): 154 Objective Head: normocephalic, atraumatic Eyes: bilateral eye PERRL, bilateral eye EOMI ENT: dry mucus membranes Neck: supple Respiratory: lungs clear, no respiratory distress, no retraction, no accessory muscle use Cardiovascular #1: regular rate, rhythm Gastrointestinal: non tender, soft Musculoskeletal: other - Some contractures of the lower legs Neurologic: alert, oriented x3, responsive Skin: normal color, no rash Lymphatic: no adenopathy Laboratory Tests Test 09/20/18 05:30 White Blood Count 7.0 K/UL (4.8-10.8) Red Blood Count 3.45 M/UL (4.70-6.10) L Hemoglobin 11.5 G/DL (14.2-18.0) L Hematocrit 33.9 % (42.0-52.0) L Mean Corpuscular Volume 98 FL (80-99) Mean Corpuscular Hemoglobin 33.4 PG (27.0-31.0) H Mean Corpuscular Hemoglobin Concent 34.0 G/DL (32.0-36.0) Red Cell Distribution Width 11.9 % (11.6-14.8) Platelet Count 203 K/UL (150-450) Mean Platelet Volume 6.5 FL (6.5-10.1) Neutrophils (%) (Auto) 53.1 % (45.0-75.0) Lymphocytes (%) (Auto) 38.5 % (20.0-45.0) Monocytes (%) (Auto) 6.1 % (1.0-10.0) Eosinophils (%) (Auto) 1.3 % (0.0-3.0) Basophils (%) (Auto) 0.9 % (0.0-2.0) Sodium Level 142 MMOL/L (136-145) Potassium Level 3.9 MMOL/L (3.5-5.1) Chloride Level 106 MMOL/L (98-107) Carbon Dioxide Level 23 MMOL/L (21-32) Anion Gap 13 mmol/L (5-15) Blood Urea Nitrogen 24 mg/dL (7-18) H Creatinine 1.2 MG/DL (0.55-1.30) Estimat Glomerular Filtration Rate 59.9 mL/min (>60) Glucose Level 84 MG/DL (74-106) Calcium Level 9.0 MG/DL (8.5-10.1) Phosphorus Level 3.2 MG/DL (2.5-4.9) Magnesium Level 2.1 MG/DL (1.8-2.4) Total Bilirubin 0.5 MG/DL (0.2-1.0) Aspartate Amino Transf (AST/SGOT) 30 U/L (15-37) Alanine Aminotransferase (ALT/SGPT) 30 U/L (12-78) Alkaline Phosphatase 99 U/L (46-116) Total Protein 7.4 G/DL (6.4-8.2) Albumin 3.0 G/DL (3.4-5.0) L Globulin 4.4 g/dL Albumin/Globulin Ratio 0.7 (1.0-2.7) L Current Medications Medications (Trade) Dose Ordered Sig/Roman Route PRN Reason Start Time Stop Time Status Last Admin Dose Admin Acetaminophen (Tylenol) 650 mg Q4H PRN ORAL fever (temp>100.5F) 09/13/18 18:00 10/13/18 17:59 Al Hydroxide/Mg Hydroxide (Mylanta II) 30 ml Q6H PRN ORAL dyspepsia 09/13/18 18:00 10/13/18 17:59 Amlodipine Besylate (Norvasc) 10 mg DAILY ORAL 09/14/18 09:00 10/14/18 08:59 09/18/18 09:16 Atovaquone (Mepron Susp) 1,500 mg DAILY ORAL 09/14/18 12:00 10/14/18 11:59 09/20/18 09:07 Baclofen (Lioresal) 10 mg THREE TIMES A DAY PRN ORAL Muscle Spasm 09/13/18 23:15 10/13/18 23:14 Calcium Carbonate (Os-Fazal) 500 mg DAILY ORAL 09/14/18 09:00 10/14/18 08:59 09/18/18 09:16 Cholestyramine Resin (Questran) 4 gm THREE TIMES A DAY ORAL 09/19/18 18:00 10/19/18 17:59 Clotrimazole (Lotrimin) 1 applic TWICE A DAY TOPIC 09/14/18 09:00 10/14/18 08:59 09/20/18 09:11 Dextrose (Dextrose 50%) 25 ml Q30M PRN IV Hypoglycemia 09/13/18 18:00 10/13/18 17:54 Dextrose (Dextrose 50%) 50 ml Q30M PRN IV hypoglycemia 09/13/18 18:00 10/13/18 17:59 Diphenoxylate HCl/ Atropine (Lomotil) 2.5 mg Q4H PRN ORAL Diarrhea 09/18/18 13:45 10/18/18 13:44 09/19/18 12:33 Fidaxomicin (Dificid) 200 mg EVERY 12 HOURS ORAL 09/14/18 21:00 09/21/18 20:59 09/20/18 09:20 Finasteride (Proscar) 5 mg DAILY ORAL 09/14/18 09:00 10/14/18 08:59 09/20/18 09:09 Heparin Sodium (Porcine) (Heparin 5000 units/ml) 5,000 units EVERY 8 HOURS SUBQ 09/16/18 22:00 10/16/18 21:59 09/20/18 05:26 Loperamide HCl (Imodium) 2 mg Q4H PRN ORAL Diarrhea 09/20/18 09:45 10/20/18 09:44 Lorazepam (Ativan 2mg/ml 1ml) 0.5 mg Q4H PRN IV For Anxiety 09/13/18 18:00 09/20/18 17:59 09/19/18 16:44 Lorazepam (Ativan) 1 mg TWICE A DAY PRN ORAL For Anxiety 09/13/18 23:15 09/20/18 23:14 09/18/18 17:21 Losartan Potassium (Cozaar) 50 mg DAILY ORAL 09/14/18 09:00 10/14/18 08:59 09/18/18 09:16 Meloxicam (Mobic) 15 mg DAILY ORAL 09/14/18 09:00 10/14/18 08:59 09/20/18 09:08 Metoprolol Tartrate (Lopressor) 25 mg EVERY 12 HOURS ORAL 09/14/18 09:00 10/14/18 08:59 09/18/18 09:17 Mirtazapine (Remeron) 15 mg BEDTIME ORAL 09/14/18 21:00 10/14/18 20:59 09/17/18 20:49 Morphine Sulfate (Morphine Sulfate) 4 mg Q4H PRN IVP Severe Pain (Pain Scale 7-10) 09/13/18 23:00 09/20/18 22:59 09/20/18 05:27 Ondansetron HCl (Zofran) 4 mg Q6H PRN IVP Nausea & Vomiting 09/13/18 18:00 10/13/18 17:59 09/20/18 13:50 Paroxetine HCl (Paxil) 40 mg DAILY ORAL 09/14/18 09:00 10/14/18 08:59 09/20/18 09:09 Patient Own Medication (Patient's Own Med) 1 ea BID ORAL 09/14/18 18:00 10/14/18 17:59 09/18/18 17:21 Patient Own Medication (Patient's Own Med) 1 ea BID ORAL 09/14/18 18:00 10/14/18 17:59 09/18/18 17:21 Patient Own Medication (Patient's Own Med) 1 ea DAILY ORAL 09/15/18 15:00 10/15/18 14:59 09/20/18 09:09 Promethazine HCl (Phenergan) 25 mg Q8H PRN ORAL Nausea & Vomiting 09/19/18 11:45 10/19/18 11:44 09/19/18 21:01 Tamsulosin HCl (Flomax) 0.4 mg BEDTIME ORAL 09/14/18 21:00 10/14/18 20:59 09/18/18 22:42 Vitamin D (Vitamin D) 2,000 intlu DAILY ORAL 09/14/18 09:00 10/14/18 08:59 09/20/18 09:11 Zolpidem Tartrate (Ambien) 5 mg HSPRN PRN ORAL Insomnia 09/13/18 18:00 09/20/18 17:59 Miranda Cordero M.D. Sep 20, 2018 15:22
--- NOTE | 2018-09-20 18:22 | Internal Med Progress Note ---
Subjective Physician Name Carlos Barragan Attending Physician Carlos Barragan MD Current Medications Medications (Trade) Dose Ordered Sig/Roman Route PRN Reason Start Time Stop Time Status Last Admin Dose Admin Acetaminophen (Tylenol) 650 mg Q4H PRN ORAL fever (temp>100.5F) 09/13/18 18:00 10/13/18 17:59 Al Hydroxide/Mg Hydroxide (Mylanta II) 30 ml Q6H PRN ORAL dyspepsia 09/13/18 18:00 10/13/18 17:59 Amlodipine Besylate (Norvasc) 10 mg DAILY ORAL 09/14/18 09:00 10/14/18 08:59 09/18/18 09:16 Atovaquone (Mepron Susp) 1,500 mg DAILY ORAL 09/14/18 12:00 10/14/18 11:59 09/20/18 09:07 Baclofen (Lioresal) 10 mg THREE TIMES A DAY PRN ORAL Muscle Spasm 09/13/18 23:15 10/13/18 23:14 Calcium Carbonate (Os-Fazal) 500 mg DAILY ORAL 09/14/18 09:00 10/14/18 08:59 09/18/18 09:16 Cholestyramine Resin (Questran) 4 gm THREE TIMES A DAY ORAL 09/19/18 18:00 10/19/18 17:59 Clotrimazole (Lotrimin) 1 applic TWICE A DAY TOPIC 09/14/18 09:00 10/14/18 08:59 09/20/18 09:11 Dextrose (Dextrose 50%) 25 ml Q30M PRN IV Hypoglycemia 09/13/18 18:00 10/13/18 17:54 Dextrose (Dextrose 50%) 50 ml Q30M PRN IV hypoglycemia 09/13/18 18:00 10/13/18 17:59 Diphenoxylate HCl/ Atropine (Lomotil) 2.5 mg Q4H PRN ORAL Diarrhea 09/18/18 13:45 10/18/18 13:44 09/19/18 12:33 Fidaxomicin (Dificid) 200 mg EVERY 12 HOURS ORAL 09/14/18 21:00 09/23/18 20:59 09/20/18 09:20 Finasteride (Proscar) 5 mg DAILY ORAL 09/14/18 09:00 10/14/18 08:59 09/20/18 09:09 Heparin Sodium (Porcine) (Heparin 5000 units/ml) 5,000 units EVERY 8 HOURS SUBQ 09/16/18 22:00 10/16/18 21:59 09/20/18 05:26 Loperamide HCl (Imodium) 2 mg Q4H PRN ORAL Diarrhea 09/20/18 09:45 10/20/18 09:44 Lorazepam (Ativan) 1 mg TWICE A DAY PRN ORAL For Anxiety 09/13/18 23:15 09/20/18 23:14 09/18/18 17:21 Losartan Potassium (Cozaar) 50 mg DAILY ORAL 09/14/18 09:00 10/14/18 08:59 09/18/18 09:16 Meloxicam (Mobic) 15 mg DAILY ORAL 09/14/18 09:00 10/14/18 08:59 09/20/18 09:08 Metoprolol Tartrate (Lopressor) 25 mg EVERY 12 HOURS ORAL 09/14/18 09:00 10/14/18 08:59 09/18/18 09:17 Mirtazapine (Remeron) 15 mg BEDTIME ORAL 09/14/18 21:00 10/14/18 20:59 09/17/18 20:49 Morphine Sulfate (Morphine Sulfate) 4 mg Q4H PRN IVP Severe Pain (Pain Scale 7-10) 09/13/18 23:00 09/20/18 22:59 09/20/18 16:58 Ondansetron HCl (Zofran) 4 mg Q6H PRN IVP Nausea & Vomiting 09/13/18 18:00 10/13/18 17:59 09/20/18 13:50 Paroxetine HCl (Paxil) 40 mg DAILY ORAL 09/14/18 09:00 10/14/18 08:59 09/20/18 09:09 Patient Own Medication (Patient's Own Med) 1 ea BID ORAL 09/14/18 18:00 10/14/18 17:59 09/18/18 17:21 Patient Own Medication (Patient's Own Med) 1 ea BID ORAL 09/14/18 18:00 10/14/18 17:59 09/18/18 17:21 Patient Own Medication (Patient's Own Med) 1 ea DAILY ORAL 09/15/18 15:00 10/15/18 14:59 09/20/18 09:09 Promethazine HCl (Phenergan) 25 mg Q8H PRN ORAL Nausea & Vomiting 09/19/18 11:45 10/19/18 11:44 09/19/18 21:01 Tamsulosin HCl (Flomax) 0.4 mg BEDTIME ORAL 09/14/18 21:00 10/14/18 20:59 09/18/18 22:42 Vitamin D (Vitamin D) 2,000 intlu DAILY ORAL 09/14/18 09:00 10/14/18 08:59 09/20/18 09:11 Allergies: Coded Allergies: CODEINE (Unverified Allergy, Unknown, 11/28/17) EMTRICITABINE (Verified Allergy, Unknown, anxiousness, 08/31/18) SULFAMETHOXAZOLE (Unverified Allergy, Unknown, 10/27/17) TENOFOVIR (Verified Allergy, Unknown, anxiousness, 08/31/18) TRIMETHOPRIM (Unverified Allergy, Unknown, 10/27/17) Subjective awake, alert, responsive, no acute distress,less diarrhea. Objective Last Vital Signs Date Time Temp Pulse Resp B/P (MAP) Pulse Ox O2 Delivery O2 Flow Rate FiO2 09/20/18 16:06 98.4 80 20 101/71 (81) 93 09/20/18 10:36 Room Air Laboratory Tests Test 09/20/18 05:30 White Blood Count 7.0 K/UL (4.8-10.8) Red Blood Count 3.45 M/UL (4.70-6.10) L Hemoglobin 11.5 G/DL (14.2-18.0) L Hematocrit 33.9 % (42.0-52.0) L Mean Corpuscular Volume 98 FL (80-99) Mean Corpuscular Hemoglobin 33.4 PG (27.0-31.0) H Mean Corpuscular Hemoglobin Concent 34.0 G/DL (32.0-36.0) Red Cell Distribution Width 11.9 % (11.6-14.8) Platelet Count 203 K/UL (150-450) Mean Platelet Volume 6.5 FL (6.5-10.1) Neutrophils (%) (Auto) 53.1 % (45.0-75.0) Lymphocytes (%) (Auto) 38.5 % (20.0-45.0) Monocytes (%) (Auto) 6.1 % (1.0-10.0) Eosinophils (%) (Auto) 1.3 % (0.0-3.0) Basophils (%) (Auto) 0.9 % (0.0-2.0) Sodium Level 142 MMOL/L (136-145) Potassium Level 3.9 MMOL/L (3.5-5.1) Chloride Level 106 MMOL/L (98-107) Carbon Dioxide Level 23 MMOL/L (21-32) Anion Gap 13 mmol/L (5-15) Blood Urea Nitrogen 24 mg/dL (7-18) H Creatinine 1.2 MG/DL (0.55-1.30) Estimat Glomerular Filtration Rate 59.9 mL/min (>60) Glucose Level 84 MG/DL (74-106) Calcium Level 9.0 MG/DL (8.5-10.1) Phosphorus Level 3.2 MG/DL (2.5-4.9) Magnesium Level 2.1 MG/DL (1.8-2.4) Total Bilirubin 0.5 MG/DL (0.2-1.0) Aspartate Amino Transf (AST/SGOT) 30 U/L (15-37) Alanine Aminotransferase (ALT/SGPT) 30 U/L (12-78) Alkaline Phosphatase 99 U/L (46-116) Total Protein 7.4 G/DL (6.4-8.2) Albumin 3.0 G/DL (3.4-5.0) L Globulin 4.4 g/dL Albumin/Globulin Ratio 0.7 (1.0-2.7) L Intake and Output 09/19/18 09/20/18 19:00 07:00 Intake Total 840 ml Balance 840 ml Intake Oral 840 ml # Voids 3 Objective General: No acute distress, awake and alert HEENT: NCAT, sclera anicteric, PERRL, EOMI. Neck: Supple, no significant jugular venous distention, Lungs: fair inspiratory effort, decreased air in the bases, no Wheeze or Rales. Heart: Regular rate and rhythm, normal S1/S2, no murmur. Abdomen: soft, nontender, nondistended. Normoactive bowel sounds. / Rectal: Refused and deferred. Extremities: No Cyanosis , clubbing or edema, contracted lower extremity. Neuro: A&O x 3, Able to move all extremities Skin: warm, no rash. Psych: Normal mood and affect Assessment/Plan Assessment/Plan Cdiff, ongoing diarrhea on oral vancomycin --09/06 Cdiff toxin a/b + -09/06 SP Colonoscopy: proctitis -stool cx: normal thomas -Giardia ag, cryptosporidium neg Nausea/vomiting, SP Recent UTI, s/p complete Abx therapy. HIV/AIDS- on ARV (per pt VL UD) -09/2018 182 (10.1%) -11/2017 CD4 323 Hx of rectal CA CVA 2004 HTN Plan: -Abx: Fidaxomicin (#7/10) -09/13 SP PO Vancomycin #8 -f/u cx -DVT prophylaxis with heparin subcu. -Contiue ARV (Genvoya, prezista, intelence) -Atovaquone for PCP px -Monitor Lab. DChome today. Carlos Barragan MD Sep 20, 2018 18:22
--- NOTE | 2018-09-20 19:00 | NUR ---
NURSE NOTES:Bed alarm is on,call light within reach.No loose stools today,no complaint of pain at this time.
--- NOTE | 2018-09-20 19:30 | NUR ---
HAND-OFF: Report given to NICOLASA WHITEHEAD. Addendum: 09/20/18 at 2033 by LEX LAO RN RN Report given to RAGHU WHITEHEAD
[2018-09-20] MEDS: Tamsulosin 0.4mg cap ORAL SCH (20:27)
--- NOTE | 2018-09-20 20:46 | NUR ---
NURSE NOTES: Received patient awake,alert,verbal,resting in bed.Kept clean and dry.
[2018-09-21] VITALS: BP 117/74
[2018-09-21] MEDS: Morphine Sulfate 4mg/ml Inj (IV USE ONLY) IVP PRN ×2 (01:56→08:59)
[2018-09-21 04:00] VITALS: BP 97/57
[2018-09-21] MEDS: Heparin 5000 units/ml inj SUBQ SCH ×2 (05:47→14:00)
--- NOTE | 2018-09-21 07:33 | NUR ---
HAND-OFF: Report given to Sussy Taylor RN.
[2018-09-21 08:00] VITALS: BP 121/68
[2018-09-21] MEDS: Meloxicam 15 MG TAB ORAL SCH (09:00)
[2018-09-21] MEDS: Losartan 50mg tab ORAL SCH (09:00)
[2018-09-21] MEDS: Vitamin D 1000 IU Tab ORAL SCH (09:00)
[2018-09-21] MEDS: GENVOYA ORAL SCH (09:00)
[2018-09-21] MEDS: PARoxetine 20mg tab ORAL SCH (09:00)
[2018-09-21] MEDS: Atovaquone 750mg/5ml Susp ORAL SCH (09:00)
[2018-09-21] MEDS: PREZISTA 600 MG ORAL SCH (09:00)
[2018-09-21] MEDS: Cholestyramine 4gm Pkt ORAL SCH ×2 (09:00→12:41)
[2018-09-21] MEDS: Metoprolol 25mg tab ORAL SCH (09:00)
[2018-09-21] MEDS: INTELENCE 200 MG ORAL SCH (09:00)
--- NOTE | 2018-09-21 09:20 | NUR ---
SCIENTIFIC ILLUSTRATOR Co-Signature: Reviewed patient's chart. Reviewed and approved SCIENTIFIC ILLUSTRATOR notes Addendum: 09/21/18 at 0922 by LINDA NICK PT,MG Amended: Links added.
--- NOTE | 2018-09-21 09:21 | NUR ---
PLANNING COORDINATOR Co-Signature: Reviewed patient's chart. Reviewed and approved PLANNING COORDINATOR notes Addendum: 09/21/18 at 0922 by LINDA NICK PT,MG Amended: Links added.
--- NOTE | 2018-09-21 09:21 | NUR ---
ELECTRICAL SYSTEMS ENGINEER Co-Signature: Reviewed patient's chart. Reviewed and approved ELECTRICAL SYSTEMS ENGINEER notes Addendum: 09/21/18 at 0922 by LINDA NICK PT,MG Amended: Links added.
--- NOTE | 2018-09-21 09:21 | NUR ---
MANAGER RELOCATION Co-Signature: Reviewed patient's chart. Reviewed and approved MANAGER RELOCATION notes Addendum: 09/21/18 at 0922 by LINDA NICK PT,MG Amended: Links added.
--- NOTE | 2018-09-21 10:05 | NUR ---
Prior Authorization Request from [facility] requested progress note stating patient diagnosed with C.difficile and failed oral vancomycin in order to get patient's insurance to approve Dificid (fidaxomicin) to complete course of treatment. Documentation faxed to [facility] from [facility] to assist patient with receiving medication prescribed. Pharm. BonnieD.
--- NOTE | 2018-09-21 10:07 | NUR ---
*-* INSURANCE *-* CLINICALS AND REVIEWS HAVE BEEN FAXED TO: [facility] NCM: CARMITA P: [phone] CELL: [phone] F: [phone]
--- NOTE | 2018-09-21 11:39 | GI Progress Note ---
Assessment/Plan Problems: (1) Severe protein-calorie malnutrition ICD Codes: E43 - Unspecified severe protein-calorie malnutrition SNOMED: 195587169 (2) Intractable abdominal pain ICD Codes: R10.9 - Unspecified abdominal pain SNOMED: 14889197, 704502747 (3) Electrolyte imbalance ICD Codes: E87.8 - Other disorders of electrolyte and fluid balance, not elsewhere classified SNOMED: 864762062 (4) Diarrhea ICD Codes: R19.7 - Diarrhea, unspecified SNOMED: 68850878 (5) Dehydration ICD Codes: E86.0 - Dehydration SNOMED: 67695092 (6) C. difficile colitis ICD Codes: A04.72 - Enterocolitis due to Clostridium difficile, not specified as recurrent SNOMED: 752764581 (7) Gastroenteritis ICD Codes: K52.9 - Noninfective gastroenteritis and colitis, unspecified SNOMED: 44093313 (8) Rectal cancer ICD Codes: C20 - Malignant neoplasm of rectum SNOMED: 483152222 Status: stable Status Narrative Discussed with Dr. Germain. Assessment/Plan Status post colonoscopy SUMMARY OF FINDINGS: 1. Focal proctitis suspicious for C. diff versus ulcerative colitis, status post biopsy. 2. Status post biopsy of the right and left colon to evaluate microscopic colitis. Cdiff negative RECOMMENDATIONS: okay for DC per GI standpoint Follow up biopsy results and treat accordingly. >> negative for microscopic colitis Antibiotics per infectious disease H2B PRN transfusions DC Reglan, add promethazine Advance diet Imodium prn PT evaluation Follow labs The patient was seen and examined at bedside and all new and available data was reviewed in the patients chart. I agree with the above findings, impression and plan. (Patient seen earlier today. Signature stamp does not reflect patient encounter time.). - Dejan Germain MD Subjective Subjective No reported bowel movement today nausea improved diarrhea improved Objective Last 24 Hour Vital Signs Date Time Temp Pulse Resp B/P (MAP) Pulse Ox O2 Delivery O2 Flow Rate FiO2 09/21/18 09:00 Room Air 09/21/18 08:00 97.8 66 16 121/68 (85) 09/21/18 04:00 98.4 72 18 97/57 (70) 92 09/21/18 02:26 98.0 09/21/18 00:00 98.0 68 19 117/74 (88) 92 09/20/18 21:00 Room Air 09/20/18 20:27 82 111/73 09/20/18 20:13 98.7 82 18 111/73 (86) 93 09/20/18 16:06 98.4 80 20 101/71 (81) 93 09/20/18 12:00 97.1 77 12 133/76 (95) 96 Intake and Output 09/20/18 09/21/18 19:00 07:00 Intake Total 1500 ml Balance 1500 ml Intake Oral 1500 ml # Voids 4 1 Height (Feet): 5 Height (Inches): 10.00 Weight (Pounds): 154 General Appearance: WD/WN, no apparent distress, alert Cardiovascular: normal rate Respiratory/Chest: normal breath sounds, no respiratory distress Abdominal Exam: normal bowel sounds, non tender, soft Extremities: normal range of motion, non-tender Objective No BM documented today. Jasen Brink NP Sep 21, 2018 11:39
--- NOTE | 2018-09-21 12:37 | NUR ---
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
--- NOTE | 2018-09-21 12:53 | Pulmonology Progress Note ---
Assessment/Plan Problems: (1) C. difficile colitis (2) Severe protein-calorie malnutrition (3) HIV (human immunodeficiency virus infection) (4) ATN (acute tubular necrosis) (5) History of rectal cancer Assessment/Plan no new complains all reviewed Cdiff negative slightly better wants to go home refusing to go to rehab iv fluids iv abx check electrolytes symptomatic treatment All medications and treatment were reviewed. Subjective ROS Limited/Unobtainable: No Constitutional: Reports: no symptoms HEENT: Repors: no symptoms Respiratory: Reports: no symptoms Allergies: Coded Allergies: CODEINE (Unverified Allergy, Unknown, 11/28/17) EMTRICITABINE (Verified Allergy, Unknown, anxiousness, 08/31/18) SULFAMETHOXAZOLE (Unverified Allergy, Unknown, 10/27/17) TENOFOVIR (Verified Allergy, Unknown, anxiousness, 08/31/18) TRIMETHOPRIM (Unverified Allergy, Unknown, 10/27/17) Objective Last 24 Hour Vital Signs Date Time Temp Pulse Resp B/P (MAP) Pulse Ox O2 Delivery O2 Flow Rate FiO2 09/21/18 09:00 Room Air 09/21/18 08:00 97.8 66 16 121/68 (85) 09/21/18 04:00 98.4 72 18 97/57 (70) 92 09/21/18 02:26 98.0 09/21/18 00:00 98.0 68 19 117/74 (88) 92 09/20/18 21:00 Room Air 09/20/18 20:27 82 111/73 09/20/18 20:13 98.7 82 18 111/73 (86) 93 09/20/18 16:06 98.4 80 20 101/71 (81) 93 Intake and Output 09/20/18 09/21/18 18:59 06:59 Intake Total 1500 ml Balance 1500 ml Intake Oral 1500 ml # Voids 4 1 Objective General Appearance: WD/WN HEENT: normocephalic, atraumatic Respiratory/Chest: chest wall non-tender, lungs clear Cardiovascular: normal peripheral pulses, normal rate Abdomen: normal bowel sounds, soft, non tender Extremities: no cyanosis Skin: no ulcers Current Medications Medications (Trade) Dose Ordered Sig/Roman Route PRN Reason Start Time Stop Time Status Last Admin Dose Admin Acetaminophen (Tylenol) 650 mg Q4H PRN ORAL fever (temp>100.5F) 09/13/18 18:00 10/13/18 17:59 Al Hydroxide/Mg Hydroxide (Mylanta II) 30 ml Q6H PRN ORAL dyspepsia 09/13/18 18:00 10/13/18 17:59 Amlodipine Besylate (Norvasc) 10 mg DAILY ORAL 09/14/18 09:00 10/14/18 08:59 09/18/18 09:16 Atovaquone (Mepron Susp) 1,500 mg DAILY ORAL 09/14/18 12:00 10/14/18 11:59 09/20/18 09:07 Baclofen (Lioresal) 10 mg THREE TIMES A DAY PRN ORAL Muscle Spasm 09/13/18 23:15 10/13/18 23:14 Calcium Carbonate (Os-Fazal) 500 mg DAILY ORAL 09/14/18 09:00 10/14/18 08:59 09/18/18 09:16 Cholestyramine Resin (Questran) 4 gm THREE TIMES A DAY ORAL 09/19/18 18:00 10/19/18 17:59 Clotrimazole (Lotrimin) 1 applic TWICE A DAY TOPIC 09/14/18 09:00 10/14/18 08:59 09/20/18 18:37 Dextrose (Dextrose 50%) 25 ml Q30M PRN IV Hypoglycemia 09/13/18 18:00 10/13/18 17:54 Dextrose (Dextrose 50%) 50 ml Q30M PRN IV hypoglycemia 09/13/18 18:00 10/13/18 17:59 Diphenoxylate HCl/ Atropine (Lomotil) 2.5 mg Q4H PRN ORAL Diarrhea 09/18/18 13:45 10/18/18 13:44 09/19/18 12:33 Fidaxomicin (Dificid) 200 mg EVERY 12 HOURS ORAL 09/14/18 21:00 09/23/18 20:59 09/20/18 20:27 Finasteride (Proscar) 5 mg DAILY ORAL 09/14/18 09:00 10/14/18 08:59 09/20/18 09:09 Heparin Sodium (Porcine) (Heparin 5000 units/ml) 5,000 units EVERY 8 HOURS SUBQ 09/16/18 22:00 10/16/18 21:59 09/20/18 05:26 Loperamide HCl (Imodium) 2 mg Q4H PRN ORAL Diarrhea 09/20/18 09:45 10/20/18 09:44 Losartan Potassium (Cozaar) 50 mg DAILY ORAL 09/14/18 09:00 10/14/18 08:59 09/18/18 09:16 Meloxicam (Mobic) 15 mg DAILY ORAL 09/14/18 09:00 10/14/18 08:59 09/20/18 09:08 Metoprolol Tartrate (Lopressor) 25 mg EVERY 12 HOURS ORAL 09/14/18 09:00 10/14/18 08:59 09/20/18 20:27 Mirtazapine (Remeron) 15 mg BEDTIME ORAL 09/14/18 21:00 10/14/18 20:59 09/20/18 20:27 Morphine Sulfate (Morphine Sulfate) 4 mg Q4H PRN IVP For Pain 09/21/18 00:15 09/28/18 00:14 09/21/18 08:59 Ondansetron HCl (Zofran) 4 mg Q6H PRN IVP Nausea & Vomiting 09/13/18 18:00 10/13/18 17:59 09/21/18 08:58 Paroxetine HCl (Paxil) 40 mg DAILY ORAL 09/14/18 09:00 10/14/18 08:59 09/20/18 09:09 Patient Own Medication (Patient's Own Med) 1 ea BID ORAL 09/14/18 18:00 10/14/18 17:59 09/20/18 18:37 Patient Own Medication (Patient's Own Med) 1 ea BID ORAL 09/14/18 18:00 10/14/18 17:59 09/20/18 18:37 Patient Own Medication (Patient's Own Med) 1 ea DAILY ORAL 09/15/18 15:00 10/15/18 14:59 09/20/18 09:09 Promethazine HCl (Phenergan) 25 mg Q8H PRN ORAL Nausea & Vomiting 09/19/18 11:45 10/19/18 11:44 09/19/18 21:01 Tamsulosin HCl (Flomax) 0.4 mg BEDTIME ORAL 09/14/18 21:00 4/13/19 20:59 09/20/18 20:27 Vitamin D (Vitamin D) 2,000 intlu DAILY ORAL 09/14/18 09:00 10/14/18 08:59 09/20/18 09:11 Oliverio Rm MD Sep 21, 2018 12:53
--- NOTE | 2018-09-21 13:58 | Infectious Diseases Prog Note ---
Assessment/Plan Assessment/Plan Abx: None Assessment: Cdiff, failed oral vancomycin; now improving --09/06 Cdiff toxin a/b +; repeat Cdiff neg x2 -09/06 SP Colonoscopy: proctitis -stool cx: normal thomas -Giardia ag, cryptosporidium neg Nausea/vomiting, recurrent nausea Afebrile Mild leukocytosis, SP Recent UTI, s/p Rx -u/a wbc 10-15, shirley neg, leuk +3; ucx >100K PROTEUS MIRABILIS ( I Levo; R Amp, bactrim, Cipro, Nitro; S Ceftriaxone) HIV/AIDS- on ARV -09/2018 182 (10.1%), VL UD -11/2017 CD4 323 hx of rectal CA CVA 2004 HTN Plan: -Cont Fidaxomicin #8/10 as patient not improved with oral vancomycin -09/13 SP PO Vancomycin #8 -If no diarrhea today, then can be d/c off isolation as to ensure 48hrs diarrhea free -f/u cx -Monitor CBC/CMP, temperatures -Contiue ARV (Genvoya, prezista, intelence)- if one medicine is missing, please hold all of them until all medicines are available -Atovaquone for PCP px -management of nausea per GI -On Imodium for diarrhea management; ok to give as toxin neg and patient on adequate Cdiff tx Thank you for this consultation. Will continue to follow along with you. Discussed with RN and GI Subjective Allergies: Coded Allergies: CODEINE (Unverified Allergy, Unknown, 11/28/17) EMTRICITABINE (Verified Allergy, Unknown, anxiousness, 08/31/18) SULFAMETHOXAZOLE (Unverified Allergy, Unknown, 10/27/17) TENOFOVIR (Verified Allergy, Unknown, anxiousness, 08/31/18) TRIMETHOPRIM (Unverified Allergy, Unknown, 10/27/17) Subjective afebrile no leukocytosis diarrhea resolevd discharge planning Objective Vital Signs Last 24 Hour Vital Signs Date Time Temp Pulse Resp B/P (MAP) Pulse Ox O2 Delivery O2 Flow Rate FiO2 09/21/18 09:00 Room Air 09/21/18 08:00 97.8 66 16 121/68 (85) 09/21/18 04:00 98.4 72 18 97/57 (70) 92 09/21/18 02:26 98.0 09/21/18 00:00 98.0 68 19 117/74 (88) 92 09/20/18 21:00 Room Air 09/20/18 20:27 82 111/73 09/20/18 20:13 98.7 82 18 111/73 (86) 93 09/20/18 16:06 98.4 80 20 101/71 (81) 93 Height (Feet): 5 Height (Inches): 10.00 Weight (Pounds): 154 Objective Head: normocephalic, atraumatic Eyes: bilateral eye PERRL, bilateral eye EOMI ENT: dry mucus membranes Neck: supple Respiratory: lungs clear, no respiratory distress, no retraction, no accessory muscle use Cardiovascular #1: regular rate, rhythm Gastrointestinal: non tender, soft Musculoskeletal: other - Some contractures of the lower legs Neurologic: alert, oriented x3, responsive Skin: normal color, no rash Lymphatic: no adenopathy Current Medications Medications (Trade) Dose Ordered Sig/Roman Route PRN Reason Start Time Stop Time Status Last Admin Dose Admin Acetaminophen (Tylenol) 650 mg Q4H PRN ORAL fever (temp>100.5F) 09/13/18 18:00 10/13/18 17:59 Al Hydroxide/Mg Hydroxide (Mylanta II) 30 ml Q6H PRN ORAL dyspepsia 09/13/18 18:00 10/13/18 17:59 Amlodipine Besylate (Norvasc) 10 mg DAILY ORAL 09/14/18 09:00 10/14/18 08:59 09/18/18 09:16 Atovaquone (Mepron Susp) 1,500 mg DAILY ORAL 09/14/18 12:00 10/14/18 11:59 09/20/18 09:07 Baclofen (Lioresal) 10 mg THREE TIMES A DAY PRN ORAL Muscle Spasm 09/13/18 23:15 10/13/18 23:14 Calcium Carbonate (Os-Fazal) 500 mg DAILY ORAL 09/14/18 09:00 10/14/18 08:59 09/18/18 09:16 Cholestyramine Resin (Questran) 4 gm THREE TIMES A DAY ORAL 09/19/18 18:00 10/19/18 17:59 Clotrimazole (Lotrimin) 1 applic TWICE A DAY TOPIC 09/14/18 09:00 10/14/18 08:59 09/20/18 18:37 Dextrose (Dextrose 50%) 25 ml Q30M PRN IV Hypoglycemia 09/13/18 18:00 10/13/18 17:54 Dextrose (Dextrose 50%) 50 ml Q30M PRN IV hypoglycemia 09/13/18 18:00 10/13/18 17:59 Diphenoxylate HCl/ Atropine (Lomotil) 2.5 mg Q4H PRN ORAL Diarrhea 09/18/18 13:45 10/18/18 13:44 09/19/18 12:33 Fidaxomicin (Dificid) 200 mg EVERY 12 HOURS ORAL 09/14/18 21:00 09/23/18 20:59 09/20/18 20:27 Finasteride (Proscar) 5 mg DAILY ORAL 09/14/18 09:00 10/14/18 08:59 09/20/18 09:09 Heparin Sodium (Porcine) (Heparin 5000 units/ml) 5,000 units EVERY 8 HOURS SUBQ 09/16/18 22:00 10/16/18 21:59 09/20/18 05:26 Loperamide HCl (Imodium) 2 mg Q4H PRN ORAL Diarrhea 09/20/18 09:45 10/20/18 09:44 Losartan Potassium (Cozaar) 50 mg DAILY ORAL 09/14/18 09:00 10/14/18 08:59 09/18/18 09:16 Meloxicam (Mobic) 15 mg DAILY ORAL 09/14/18 09:00 10/14/18 08:59 09/20/18 09:08 Metoprolol Tartrate (Lopressor) 25 mg EVERY 12 HOURS ORAL 09/14/18 09:00 10/14/18 08:59 09/20/18 20:27 Mirtazapine (Remeron) 15 mg BEDTIME ORAL 09/14/18 21:00 10/14/18 20:59 09/20/18 20:27 Morphine Sulfate (Morphine Sulfate) 4 mg Q4H PRN IVP For Pain 09/21/18 00:15 09/28/18 00:14 09/21/18 08:59 Ondansetron HCl (Zofran) 4 mg Q6H PRN IVP Nausea & Vomiting 09/13/18 18:00 10/13/18 17:59 09/21/18 08:58 Paroxetine HCl (Paxil) 40 mg DAILY ORAL 09/14/18 09:00 10/14/18 08:59 09/20/18 09:09 Patient Own Medication (Patient's Own Med) 1 ea BID ORAL 09/14/18 18:00 10/14/18 17:59 09/20/18 18:37 Patient Own Medication (Patient's Own Med) 1 ea BID ORAL 09/14/18 18:00 10/14/18 17:59 09/20/18 18:37 Patient Own Medication (Patient's Own Med) 1 ea DAILY ORAL 09/15/18 15:00 10/15/18 14:59 09/20/18 09:09 Promethazine HCl (Phenergan) 25 mg Q8H PRN ORAL Nausea & Vomiting 09/19/18 11:45 10/19/18 11:44 09/19/18 21:01 Tamsulosin HCl (Flomax) 0.4 mg BEDTIME ORAL 09/14/18 21:00 10/14/18 20:59 09/20/18 20:27 Vitamin D (Vitamin D) 2,000 intlu DAILY ORAL 09/14/18 09:00 10/14/18 08:59 09/20/18 09:11 Miranda Cordero M.D. Sep 21, 2018 13:58
--- NOTE | 2018-09-21 14:25 | NUR ---
*-* DISCHARGE PLANNED *-* PATIENT IS DISCHARGED TO: [facility] T:[phone] FOR NURSE TO NURSE REPORT [facility] HAS BEEN ARRANGED FOR BULB SORTER AT 1430 S/W JAIR [phone]
--- NOTE | 2018-09-21 15:00 | NUR ---
NURSE NOTES: Pt discharge to board and care. IV removed. Belonging given to pt. Instantizer Operator spoke to Soledad at [facility] who was aware of pending arrival. Personal medications given. Instantizer Operator informed pharmacy that had medications in med room. Arrangements for medication delivery made with assistance . Pt is in stable condition
--- NOTE | 2018-09-21 17:30 | NUR ---
NURSE NOTES: Diane Fritz phoned to inform them that medication was left behind. gag writer spoke to Fidelina who stated to phone Soledad after 9 am tomorrow, Charge nurse made aware
--- NOTE | 2018-09-22 14:10 | Discharge Summary ---
Discharge Summary Discharge Summary _ DATE OF ADMISSION: 09/13/2018 DATE OF DISCHARGE: 09/21/2018 ATTENDING MD: Dr. Carlos Barragan DISCHARGED BY: Dr. Oliverio Rm CONSULTANTS: Dr. Oliverio Germain [facility] HOSPITAL COURSE: Patient is a 68-year-old white male who presented to ED due to diarrhea. Patient was admitted to [facility] from 08/31/2018 through 2018. The patient was diagnosed with C. difficile colitis at that time. He underwent a colonoscopy on 09/06/2018 and had a diagnosis of proctitis. He presented back to the emergency room complaining of abdominal cramping and diarrhea. He stated symptoms had been recurring since he left the hospital. His medical history significant for HIV, rectal CA, hypertension, CVA, major depression and anxiety. On evaluation at ED, blood work did not show any leukocytosis, hemoglobin and hematocrit were stable. Electrolytes were normal. Creatinine was elevated to 1.6, BUN 29. He was given IV hydration. He was admitted for evaluation of diarrhea and acute kidney injury. ID was consulted. Patient was discharged on oral vancomycin. He failed oral vancomycin. He was given Dificid. He was placed on isolation. He was continued on his antiretrovirals. He was given atovaquone for PCP prophylaxis. GI was consulted. Laxatives and stool softeners were discontinued. He continued to have diarrhea. Stool for C. difficile was reordered. He was given Imodium. Cholestyramine was added. Patient was noncompliant with medications as he would sometimes refuse. Diarrhea eventually stopped. C. difficile toxin was negative. There was no diarrhea for more than 48 hours. There was no leukocytosis. Kidney function normalized. He was cleared for discharge back to board and care. 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 DISCHARGE MEDICATIONS: Refer to Discharge Medication List. DISCHARGE INSTRUCTIONS: Follow-up in a week. I have been assigned to complete a discharge summary on this account, I was not involved with the patient's management. Shalini Delgadillo NP Sep 22, 2018 14:10
== END 2018-09-21 16:10 | DRG 371 ==
LOC: EDBD 16:15 → EMR 16:36 → 4E 17:24 → EDBEDREQ 18:49 → 4E 21:12
DX: A04.71 Enterocolitis due to Clostridium difficile, recurrent (principal); E43 Unspecified severe protein-calorie malnutrition; N17.0 Acute kidney failure with tubular necrosis; B20 Human immunodeficiency virus [HIV] disease; Z85.048 Personal history of other malignant neoplasm of rectum, rectosigmoid junction, and anus; I10 Essential (primary) hypertension; Z86.73 Personal history of transient ischemic attack (TIA), and cerebral infarction without residual deficits; Z88.6 Allergy status to analgesic agent; Z88.2 Allergy status to sulfonamides; Z88.8 Allergy status to other drugs, medicaments and biological substances; Z88.1 Allergy status to other antibiotic agents; F32.9 Major depressive disorder, single episode, unspecified; F41.9 Anxiety disorder, unspecified; N40.0 Benign prostatic hyperplasia without lower urinary tract symptoms; E87.8 Other disorders of electrolyte and fluid balance, not elsewhere classified; K52.9 Noninfective gastroenteritis and colitis, unspecified; Z68.22 Body mass index [BMI] 22.0-22.9, adult
CPT/HCPCS: 36415; 80048; 80053; 80061; 81003; 83690; 83735; 84100; 84443; 85025; 87081; 87324; 87536; 93970; 96361; 96374; 96375; 99285; J2405; J2765

== ENCOUNTER 2018-11-17 18:51 | Inpatient (IN) | payer MEDICARE, MEDICAID ==
[~2018-11-17] VITALS: Ht 165.1 cm; Wt 66.0 kg
[~2018-11-17 18:51] MED LIST changes: +DIFICID200 MG ORAL; +QUESTRAN POWDER4 GM ORAL
--- NOTE | 2018-11-17 19:05 | NUR ---
ED Nurse Note: Pt BIBA from home due to LLQ abdominal pain x 2 weeks with constipation x 3 days. Pt had a rectal biopsy 2 weeks ago and has been experiencing abdominal pain since then. Pain 10/10 samm. Pt tried to remove the stool himself and ntoed bleeding. AOx4, VSS samm. Will cont to monitor.
[2018-11-17] MEDS ORDERED: Morphine Sulfate 2mg/ml Inj(IV/IM USE ONLY) IVP ONE (19:15)
[2018-11-17] MEDS ORDERED: Isovue-300 100ml vial INJ PRN (19:15)
--- NOTE | 2018-11-17 19:15 | NUR ---
ED Nurse Note: blood specimen sent to lab
--- NOTE | 2018-11-17 19:23 | NUR ---
ED Nurse Note: xray completed
[2018-11-17 19:31] VITALS: BP 114/64
[2018-11-17 19:31] LABS: BASOPHILS % (AUTO) 1.1 % (0.0-2.0); EOSINOPHILS % (AUTO) 0.5 % (0.0-3.0); HEMOGLOBIN 13.1 G/DL (14.2-18.0); LYMPHOCYTES % (AUTO) 23.9 % (20.0-45.0); MEAN CORPUSCULAR VOLUME 92 FL (80-99); MONOCYTES % (AUTO) 9.7 % (1.0-10.0); NEUTROPHILS % (AUTO) 64.9 % (45.0-75.0); PLATELET COUNT 158 K/UL (150-450); RED BLOOD COUNT 4.15 M/UL (4.70-6.10); RED CELL DISTRIBUTION WIDTH 11.5 % (11.6-14.8); WHITE BLOOD COUNT 7.6 K/UL (4.8-10.8)
[2018-11-17 19:48] LABS: ANION GAP 12 mmol/L (5-15); BLOOD UREA NITROGEN 19 mg/dL (7-18); CALCIUM 9.4 MG/DL (8.5-10.1); CARBON DIOXIDE 25 MMOL/L (21-32); CHLORIDE 105 MMOL/L (98-107); CREATININE 1.6 MG/DL (0.55-1.30); POTASSIUM 3.5 MMOL/L (3.5-5.1); SODIUM 142 MMOL/L (136-145)
[2018-11-17 20:03] LABS: ALANINE AMINOTRANSFERASE 18 U/L (12-78); ALBUMIN 3.5 G/DL (3.4-5.0); ALBUMIN/GLOBULIN RATIO 0.8 (1.0-2.7); ALKALINE PHOSPHATASE 124 U/L (46-116); ASPARTATE AMINO TRANSFERASE 18 U/L (15-37); BILIRUBIN,TOTAL 0.4 MG/DL (0.2-1.0); CKMB 1.4 NG/ML (0.0-3.6); CREATINE KINASE 88 U/L (26-308); PHOSPHORUS 3.3 MG/DL (2.5-4.9)
--- NOTE | 2018-11-17 21:01 | NUR ---
ED Nurse Note: ATTEMPTED TO GIVE TELEPHONE REPORT TO TELE, PER BRADLY POON ROOM BEING CLEANED GIVE US 30 MIN
[2018-11-17] MEDS ORDERED: Piperacillin/Tazobactam 3.375 GM in NS 110 ML IVPB ONE (21:15)
[2018-11-17] MEDS ORDERED: Morphine Sulfate 4mg/ml Inj (IV USE ONLY) IVP ONE (21:15)
[2018-11-17 21:32] LABS: APPEARANCE,URINE CLEAR; BILIRUBIN, URINE NEGATIVE (NEGATIVE); COLOR,URINE PALE YELLOW; GLUCOSE, URINE (UA) NEGATIVE (NEGATIVE); KETONES,URINE NEGATIVE (NEGATIVE); LEUKOCYTE ESTERASE ,URINE 1+ (NEGATIVE); NITRITE,URINE NEGATIVE (NEGATIVE); PH,URINE 8 (4.5-8.0); PROTEIN,URINE 1+ (NEGATIVE); UROBILINOGEN,URINE NORMAL MG/DL (0.0-1.0)
--- NOTE | 2018-11-17 21:47 | NUR ---
ED Nurse Note: TELEPHONE REPORT GIVEN BRAYAN RN
[2018-11-17] MEDS ORDERED: UNOBMED (21:53)
--- NOTE | 2018-11-17 21:53 | NUR ---
ED Nurse Note: PT UNABLE TO INFORM STAFF ABOUT HOME MEDS.
--- NOTE | 2018-11-17 22:15 | NUR ---
ED Nurse Note: PT WAS SENT TO TELE WITH JESSIE RN AND LENIN MORTON. PT WAS ON LEAD HANDLER, PT SHOWS NO SIGNS OF DISTRESS AT THE MOMENT, PAIN MEDS GIVEN PRIOR TO TRANSFER, PT IS AOX4, ON ROOM AIR, SKIN INTACT. ALL BELONGINGS SENT WITH PT.
[2018-11-17 22:30] VITALS: BP 165/93
--- NOTE | 2018-11-17 22:30 | NUR ---
NURSE NOTES: Pt received from CHARLEY Aleman alert and oriented x4 with no acute s/s of distress noted. On Room Air, no s/s of SOB noted. On Card Game Operator - SR with 1 AVB with BBB at 98. Per pt, he came from [facility], MRSA and CRE/VRE swabs ordered and carried out. Condom cath applied. IV site asymptomatic and patent, L ac 18g, on saline lock. Pt has some mild redness on inner buttocks, per pt "I was trying to get it (bowel movement) out myself so it's a little sore," and reddened rash on right abdominal fold likely moisture-related. Per pt, "I wear pull-ups when I'm at home." Belongings with patient upon admission - including $4 in sa[employer]ra, and [email or web address] phone. Pt has contractures on bilateral lower extremities - per pt "his legs are stiff" - uses wheelchair when at home. Bed in lowest position, bed alarm on. Call light and belongings within reach.
[2018-11-17] MEDS ORDERED: Nitroglycerin Subl 0.4mg tab SL PRN (23:00)
[2018-11-17] MEDS ORDERED: Albuterol/Ipratropium 3ml neb HHN PRN (23:00)
[2018-11-17] MEDS ORDERED: Miralax 17gm pkt ORAL PRN (23:00)
--- NOTE | 2018-11-17 23:15 | NUR ---
NURSE NOTES: RN asked pt if anybody could be able to come in to bring in home meds that are not available in [facility] pharmacy such as his HIV medications. Per pt, "My medications are at [facility] and I don't know if they can be able to bring it in or if anybody can be able to bring them in tomorrow morning." RN called Diane Lindsey but no answer, RN left message. Will endorse to AM nurse to follow up.
[2018-11-18] VITALS: BP 152/93
[2018-11-18] MEDS ORDERED: Vancomycin 1 GM in D5W 275 ML IVPB SCH (01:00)
[2018-11-18] MEDS: Morphine Sulfate 2mg/ml Inj(IV/IM USE ONLY) IVP PRN ×3 (03:07→21:35)
[2018-11-18] MEDS: Cefepime HCl 2 GM in D5W 110 ML IV SCH ×2 (03:07→14:43)
[2018-11-18 04:00] VITALS: BP 142/86
[2018-11-18] MEDS: Levothyroxine 25mcg tab ORAL SCH (06:09)
--- NOTE | 2018-11-18 06:23 | Emergency Room Report ---
History of Present Illness General Chief Complaint: Abdominal Pain Source: Patient, EMS Present Illness HPI Patient is a 68 year old male brought in by EMS for increased left side intermittent abdominal pain for 2 days. Patient reports having a recent rectal biopsy for possible cancer at [facility]. He began having fever and chills as well as decreased bowel movements. He had been having increased difficulty with having stools. He is HIV positive and reports having had recent CD4 count and viral load performed. He denies any vomiting. Patient states he has had multiple hospitalizations in the past. He reports having increased rectal bleeding for the past 1 day. Patient denies any hematemesis. He had prior biopsy at this hospital which showed some proctitis. Allergies: Coded Allergies: CODEINE (Unverified Allergy, Unknown, 11/28/17) EMTRICITABINE (Verified Allergy, Unknown, anxiousness, 08/31/18) SULFAMETHOXAZOLE (Unverified Allergy, Unknown, 10/27/17) TENOFOVIR (Verified Allergy, Unknown, anxiousness, 08/31/18) TRIMETHOPRIM (Unverified Allergy, Unknown, 10/27/17) Patient History Past Medical History: see triage record Reviewed Nursing Documentation: PMH: Agreed; PSxH: Agreed Nursing Documentation-PMH Past Medical History: No History, Except For Hx Cardiac Problems: Yes - HIV/AIDS since 1984 Hx Hypertension: Yes Hx Cancer: Yes - RECTAL Hx Gastrointestinal Problems: Yes - umbilical hernia Hx Neurological Problems: Yes Hx Cerebrovascular Accident: Yes Hx Weakness: Yes Review of Systems All Other Systems: negative except mentioned in HPI Physical Exam Vital Signs Date Time Temp Pulse Resp B/P (MAP) Pulse Ox O2 Delivery O2 Flow Rate FiO2 11/17/18 18:54 100.9 108 18 98 Room Air 11/17/18 19:31 114/64 Sp02 EP Interpretation: normal General Appearance: alert, GCS 15, non-toxic, Chronically Ill Head: normocephalic Eyes: bilateral eye PERRL ENT: hearing grossly normal, normal pharynx Neck: full range of motion Respiratory: chest non-tender, lungs clear Cardiovascular #1: normal peripheral pulses, no edema Gastrointestinal: soft, distended, tenderness - left lower abdomen Genitourinary: no CVA tenderness Musculoskeletal: normal inspection Neurologic: normal inspection, alert, oriented x3, responsive Psychiatric: normal inspection Skin: normal inspection Medical Decision Making Diagnostic Impression: Primary Impression: Sepsis Additional Impressions: Rectal bleed HIV (human immunodeficiency virus infection) Fecal impaction ER Course Patient presented for left lower abdominal pain and fever. Differential diagnosis included but was not limited to renal stone, gastroenteritis, bowel obstruction, perforated viscous, fecal impaction among others. Patient was noted to have recent rectal biopsy decreased stools without vomitting. Blood cultures were obtained. He was given IV antibiotics and started on IV fluids. CT of abdomen and pelvis was ordered with multiple findings including fecal retention see full report for complete findings. Patient was discussed with Dr. Carlos Barragan for inpatient management due to prior admission. Labs Test 11/17/18 19:10 11/17/18 21:17 11/17/18 21:35 White Blood Count 7.6 K/UL (4.8-10.8) Red Blood Count 4.15 M/UL (4.70-6.10) Hemoglobin 13.1 G/DL (14.2-18.0) Hematocrit 38.0 % (42.0-52.0) Mean Corpuscular Volume 92 FL (80-99) Mean Corpuscular Hemoglobin 31.7 PG (27.0-31.0) Mean Corpuscular Hemoglobin Concent 34.6 G/DL (32.0-36.0) Red Cell Distribution Width 11.5 % (11.6-14.8) Platelet Count 158 K/UL (150-450) Mean Platelet Volume 8.7 FL (6.5-10.1) Neutrophils (%) (Auto) 64.9 % (45.0-75.0) Lymphocytes (%) (Auto) 23.9 % (20.0-45.0) Monocytes (%) (Auto) 9.7 % (1.0-10.0) Eosinophils (%) (Auto) 0.5 % (0.0-3.0) Basophils (%) (Auto) 1.1 % (0.0-2.0) Sodium Level 142 MMOL/L (136-145) Potassium Level 3.5 MMOL/L (3.5-5.1) Chloride Level 105 MMOL/L (98-107) Carbon Dioxide Level 25 MMOL/L (21-32) Anion Gap 12 mmol/L (5-15) Blood Urea Nitrogen 19 mg/dL (7-18) Creatinine 1.6 MG/DL (0.55-1.30) Estimat Glomerular Filtration Rate 42.9 mL/min (>60) Glucose Level 127 MG/DL (74-106) Calcium Level 9.4 MG/DL (8.5-10.1) Phosphorus Level 3.3 MG/DL (2.5-4.9) Magnesium Level 1.7 MG/DL (1.8-2.4) Total Bilirubin 0.4 MG/DL (0.2-1.0) Aspartate Amino Transf (AST/SGOT) 18 U/L (15-37) Alanine Aminotransferase (ALT/SGPT) 18 U/L (12-78) Alkaline Phosphatase 124 U/L (46-116) Total Creatine Kinase 88 U/L (26-308) Creatine Kinase MB 1.4 NG/ML (0.0-3.6) Creatine Kinase MB Relative Index 1.5 Troponin I 0.012 ng/mL (0.000-0.056) Total Protein 8.0 G/DL (6.4-8.2) Albumin 3.5 G/DL (3.4-5.0) Globulin 4.5 g/dL Albumin/Globulin Ratio 0.8 (1.0-2.7) Urine Color Pale yellow Urine Appearance Clear Urine pH 8 (4.5-8.0) Urine Specific [place] 1.010 (1.005-1.035) Urine Protein 1+ (NEGATIVE) Urine Glucose (UA) Negative (NEGATIVE) Urine Ketones Negative (NEGATIVE) Urine Blood Negative (NEGATIVE) Urine Nitrite Negative (NEGATIVE) Urine Bilirubin Negative (NEGATIVE) Urine Urobilinogen Normal MG/DL (0.0-1.0) Urine Leukocyte Esterase 1+ (NEGATIVE) Urine RBC 0-2 /HPF (0 - 0) Urine WBC 2-4 /HPF (0 - 0) Urine Squamous Epithelial Cells None /LPF (NONE/OCC) Urine Bacteria Few /HPF (NONE) Lactic Acid Level 1.60 mmol/L (0.66-2.22) Last Vital Signs Date Time Temp Pulse Resp B/P (MAP) Pulse Ox O2 Delivery O2 Flow Rate FiO2 11/18/18 00:57 101.1 11/18/18 00:00 100 18 152/93 (112) 96 11/17/18 23:17 Room Air Status: improved Disposition: ADMITTED INPATIENT Condition: Serious Referrals: [facility]ERR[facility] (PCP) Matheus Solorzano MD November 18, 2018 06:23
--- NOTE | 2018-11-18 07:10 | NUR ---
NURSE NOTES: RN tried to contact Diane [place] to follow up with HIV meds. No answer, RN left message.
--- NOTE | 2018-11-18 07:25 | NUR ---
HAND-OFF: Report given to CHARLEY Nolan. No acute s/s of distress noted.
--- NOTE | 2018-11-18 07:35 | NUR ---
NURSE NOTES: Received report from CHARLEY Nolan. Pt is awake and resting in bed. In no acute distress. IV line intact and patent. Bed in lowest position. Call light within reach. Will continue plan of care. Addendum: 11/19/18 at 0723 by Gideon Nava RN Received report at 1930 11/18/18.
--- NOTE | 2018-11-18 08:00 | NUR ---
NURSE NOTES: Pt awake/alert in bed, breathing easily on room air, denies SOB but c/o aching/cramping abdominal pain 12/11 at this time, medication given per eMAR. Lungs clear bilaterally. Vital signs stable with SR 1deg. @ 83 on monitor. IV access left forearm with NS at 100 /hr. Abdomen soft but tender in both left quads, pt sts recent problem with constipation. Pt had condom cath, dislodged, pt asking for it to be replaced. Bed left in low position, side rails up x 3 and call light left near pt's hand.
[2018-11-18] MEDS: PARoxetine 20mg tab ORAL SCH (08:28)
[2018-11-18] MEDS: Heparin 5000 units/ml inj SUBQ SCH ×2 (08:40→21:24)
[2018-11-18 08:43] LABS: BASOPHILS % (AUTO) 0.4 % (0.0-2.0); EOSINOPHILS % (AUTO) 0.2 % (0.0-3.0); HEMATOCRIT 35.8 % (42.0-52.0); HEMOGLOBIN 12.2 G/DL (14.2-18.0); LYMPHOCYTES % (AUTO) 22.1 % (20.0-45.0); MEAN CORPUSCULAR VOLUME 95 FL (80-99); MONOCYTES % (AUTO) 8.5 % (1.0-10.0); NEUTROPHILS % (AUTO) 68.8 % (45.0-75.0); PLATELET COUNT 144 K/UL (150-450); RED BLOOD COUNT 3.79 M/UL (4.70-6.10); RED CELL DISTRIBUTION WIDTH 12.1 % (11.6-14.8); WHITE BLOOD COUNT 10.3 K/UL (4.8-10.8)
[2018-11-18] MEDS ORDERED: Etravirine 100mg tab ORAL SCH (09:00)
[2018-11-18] MEDS ORDERED: Darunavir 600mg tab ORAL SCH (09:00)
[2018-11-18] MEDS ORDERED: Ritonavir 100mg tab ORAL SCH (09:00)
[2018-11-18 09:03] LABS: ALANINE AMINOTRANSFERASE 16 U/L (12-78); ALBUMIN 3.1 G/DL (3.4-5.0); ALBUMIN/GLOBULIN RATIO 0.7 (1.0-2.7); ALKALINE PHOSPHATASE 97 U/L (46-116); ANION GAP 11 mmol/L (5-15); ASPARTATE AMINO TRANSFERASE 16 U/L (15-37); BILIRUBIN,TOTAL 0.5 MG/DL (0.2-1.0); BLOOD UREA NITROGEN 21 mg/dL (7-18); CALCIUM 8.5 MG/DL (8.5-10.1); CARBON DIOXIDE 23 MMOL/L (21-32); CHLORIDE 107 MMOL/L (98-107); CREATINE KINASE 65 U/L (26-308); CREATININE 1.3 MG/DL (0.55-1.30); PHOSPHORUS 2.8 MG/DL (2.5-4.9); POTASSIUM 3.6 MMOL/L (3.5-5.1); SODIUM 141 MMOL/L (136-145)
--- NOTE | 2018-11-18 10:00 | Diagnostic Imaging Report ---
Indication: Abdominal pain Technique: Continuous helical transaxial imaging of the abdomen and pelvis was obtained from the lung bases to the pubic symphysis during intravenous contrast administration. Coronal 2-D reformats were also obtained. Study obtained in a Siemens sensation [address] Automatic Exposure Control was utilized. Total Dose length Product (DLP): 700.[address] Dose Index Volume (CTDIvol): 12.17 mGy Comparison: None Findings: The lung bases show mild reticular densities likely atelectasis. There are few tiny hypodensities in the liver too small to characterize. The gallbladder is contracted. The spleen is unremarkable. Pancreas is unremarkable. There is no biliary ductal dilatation identified. There is mild right hydroureteronephrosis. There is a punctate calcification located eccentrically in the anterior aspect of the ureteral lumen within the distal right ureter near the UVJ. This is probably a small stone but does not appear to be obstructive. The bladder is unremarkable. There are hypodensities in the left kidney consistent with cysts. There is no adrenal mass. A small hiatal hernia is present. There is mild degree of stool within the colon and rectum. There is an umbilical hernia containing fat. Bowel gas pattern is nonobstructive. The appendix is not seen but there are no secondary signs of acute appendicitis. Aortoiliac calcifications are present. Severe degenerative changes of both hips are demonstrated probably on the basis of endstage advance AVN given the destructive appearance of the femoral heads which have eroded significantly. Superimposed arthrosis is present. There is narrowing of intervertebral discs and accompanying endplate osteophyte formation. Hypertrophied facet joints also demonstrated. There is a scoliosis of the lumbar spine convex to the left. The bones are osteopenic. IMPRESSION: Mild right hydroureteronephrosis. An obstructing stone is not definitely seen. However there is a tiny punctate calcification about 1 mm probably within the right distal ureter. Mild to moderate stool Cysts within the left kidney Small umbilical hernia containing fat Multiple other incidental findings as above [facility] has communicated the preliminary results to the Emergency Department. Their findings are largely concordant with this report. The CT scanner at [facility] is accredited by the [employer] and the scans are performed using dose optimization techniques as appropriate to a performed exam including Automatic Exposure control.
--- NOTE | 2018-11-18 11:09 | Diagnostic Imaging Report ---
Indication: Dyspnea Comparison: 09/06/2018 A single view chest radiograph was obtained. Findings: No definite infiltrate or pulmonary vascular congestion identified. The heart is enlarged. The aorta is mildly enlarged consistent with atherosclerotic vascular disease. The bones are osteopenic. Impression: No acute disease
--- NOTE | 2018-11-18 11:21 | Consultation ---
History of Present Illness General Date patient seen: November 18, 2018 Chief Complaint: Abdominal Pain Present Illness HPI 68 y/o M with hx of HIV (dx 1985), rectal CA, CVA 2004, HTN, UTI 08/2018, Cdiff 09/2018 presented to ED on 11/17 with 2 days of intermittent abd pain, fevers/ chills, decreased bowel movements and rectal bleeding for 1 day. Of note, patient refers having a recent rectal biopsy for possible cancer at [facility] Denied vomiting Allergies: Coded Allergies: CODEINE (Unverified Allergy, Unknown, 11/28/17) EMTRICITABINE (Verified Allergy, Unknown, anxiousness, 08/31/18) SULFAMETHOXAZOLE (Unverified Allergy, Unknown, 10/27/17) TENOFOVIR (Verified Allergy, Unknown, anxiousness, 08/31/18) TRIMETHOPRIM (Unverified Allergy, Unknown, 10/27/17) Medication History Scheduled Acetaminophen* (Tylenol Extra Strength*), 500 MG ORAL Q6H Alendronate Sodium* (Fosamax*), 70 MG ORAL ONCE A WEEK, (Reported) Amlodipine Besylate (Norvasc), 10 MG ORAL DAILY, (Reported) Amoxicillin/Potassium Clav 875-125* (Augmentin 875-125 Tablet*), 1 TAB ORAL DAILY, (Reported) Aspirin* (Aspir 81*), 81 MG ORAL DAILY, (Reported) Baclofen* (Baclofen*), 10 MG ORAL THREE TIMES A DAY, (Reported) Calcium Carbonate (Oysco-500), 500 MG PO DAILY, (Reported) Cephalexin* (Keflex*), 500 MG ORAL EVERY 12 HOURS Cephalexin* (Keflex*), 500 MG ORAL EVERY 12 HOURS Cholecalciferol (Vitamin D3)* (Vitamin D*), 2,000 UNITS ORAL DAILY, (Reported) Cholestyramine (Cholestyramine Packet), 4 GM ORAL THREE TIMES A DAY Clotrimazole* (Lotrimin*), 1 APPLIC TOPIC TWICE A DAY, (Reported) Darunavir Ethanolate* (Prezista*), 600 MG ORAL EVERY 12 HOURS, (Reported) Darunavir Ethanolate* (Prezista*), 800 MG ORAL EVERY 12 HOURS, (Reported) Dutasteride (Avodart), 0.5 MG ORAL DAILY, (Reported) Entecavir* (Baraclude*), 1 MG ORAL DAILY, (Reported) Etravirine* (Intelence*), 200 MG ORAL EVERY 12 HOURS, (Reported) Fidaxomicin (Dificid), 200 MG ORAL EVERY 12 HOURS Finasteride* (Proscar*), 5 MG ORAL DAILY, (Reported) Gabapentin* (Gabapentin*), 600 MG ORAL THREE TIMES A DAY, (Reported) Hydrocortisone/Iodoquin/Aloe#2 (Alcortin A Gel), 48 GM TP QID, (Reported) Levothyroxine Sodium* (Levothyroxine Sodium*), 25 MCG ORAL DAILY, (Reported) Lorazepam* (Lorazepam*), 1 MG ORAL TWICE A DAY, (Reported) Losartan Potassium* (Losartan Potassium*), 50 MG ORAL DAILY, (Reported) Meloxicam* (Meloxicam*), 15 MG PO DAILY, (Reported) Methocarbamol (Methocarbamol), 500 MG PO Q6HR, (Reported) Metoprolol Tartrate* (Metoprolol Tartrate*), 25 MG ORAL EVERY 12 HOURS, ( Reported) Mirtazapine* (Mirtazapine*), 15 MG ORAL BEDTIME, (Reported) Omeprazole (Omeprazole), 20 MG ORAL DAILY, (Reported) Oxycodone HCl/Acetaminophen (Percocet 10-325 mg Tablet), 1 EACH PO TID, ( Reported) Oxycodone Hcl/Acetaminophen (Endocet 10-325 Mg Tablet), 1 TAB ORAL Q4H, ( Reported) Paroxetine Hcl (Paroxetine Hcl), 40 MG ORAL DAILY, (Reported) Raltegravir Potassium (Isentress), 400 MG ORAL TWICE A DAY, (Reported) Ritonavir* (Norvir*), 100 MG ORAL TWICE A DAY, (Reported) Tamsulosin Hcl (Tamsulosin Hcl*), 0.4 MG ORAL BEDTIME, (Reported) Valacyclovir Hcl* (Valtrex*), 1,000 MG ORAL DAILY, (Reported) Vancomycin HCl (Vancomycin HCl), 125 MG ORAL FOUR TIMES A DAY Scheduled PRN Eszopiclone (Lunesta), 3 MG ORAL BEDTIME PRN for Insomnia, (Reported) Ondansetron Odt* (Zofran Odt*), 8 MG ORAL Q6H PRN for Nausea & Vomiting, ( Reported) Miscellaneous Medications Elviteg/Jihan/Emtric/Tenofo Ala (Genvoya Tablet), 1 EACH PO, (Reported) Mirabegron (Myrbetriq), 25 MG PO, (Reported) Oxybutynin Chloride (Oxybutynin Chloride), 10 MG PO, (Reported) Simethicone (Gas Relief), 125 MG PO, (Reported) Unable to Obtain Medications (Unable To Obtain Meds), (Reported) Patient History Healthcare decision maker Resuscitation status Full Code Advanced Directive on File Patient History Narrative Pmhx: as above Shx: reviewed Fhx: non contributory Review of Systems All Other Systems: negative except mentioned in HPI Physical Exam Physical Exam Narrative HEENT: normocephalic bilateral eye PERRL, normal pharynx Neck: full range of motion Respiratory: chest non-tender, lungs clear Cardiovascular : normal peripheral pulses, no edema Gastrointestinal: soft, distended, tenderness - left lower abdomen Genitourinary: no CVA tenderness Musculoskeletal: normal inspection Neurologic: normal inspection, alert, oriented x3, responsive Skin: normal inspection Last 24 Hour Vital Signs Date Time Temp Pulse Resp B/P (MAP) Pulse Ox O2 Delivery O2 Flow Rate FiO2 11/18/18 08:28 80 142/86 11/18/18 04:00 80 11/18/18 04:00 99.4 98 18 142/86 (104) 97 11/18/18 00:57 101.1 11/18/18 00:30 101.1 11/18/18 00:00 102.2 100 18 152/93 (112) 96 11/18/18 00:00 98 11/17/18 23:17 Room Air 11/17/18 22:30 98 11/17/18 22:30 97.0 101 20 165/93 (117) 97 11/17/18 22:15 98.9 107 13 158/89 100 Room Air 11/17/18 21:48 100.9 11/17/18 19:48 100.9 11/17/18 19:31 100.9 107 19 114/64 98 Room Air 11/17/18 19:00 108 18 Room Air 11/17/18 18:54 100.9 108 18 98 Room Air Intake and Output 11/17/18 11/18/18 19:00 07:00 Intake Total 1000 ml Output Total 701 ml Balance 299 ml Intake IV Total 1000 ml Output Urine Total 701 ml # Bowel Movements 1 Laboratory Tests Test 11/17/18 19:10 11/17/18 21:17 11/17/18 21:35 11/18/18 07:45 White Blood Count 7.6 K/UL (4.8-10.8) 10.3 K/UL (4.8-10.8) Red Blood Count 4.15 M/UL (4.70-6.10) L 3.79 M/UL (4.70-6.10) L Hemoglobin 13.1 G/DL (14.2-18.0) L 12.2 G/DL (14.2-18.0) L Hematocrit 38.0 % (42.0-52.0) L 35.8 % (42.0-52.0) L Mean Corpuscular Volume 92 FL (80-99) 95 FL (80-99) Mean Corpuscular Hemoglobin 31.7 PG (27.0-31.0) H 32.2 PG (27.0-31.0) H Mean Corpuscular Hemoglobin Concent 34.6 G/DL (32.0-36.0) 34.0 G/DL (32.0-36.0) Red Cell Distribution Width 11.5 % (11.6-14.8) L 12.1 % (11.6-14.8) Platelet Count 158 K/UL (150-450) 144 K/UL (150-450) L Mean Platelet Volume 8.7 FL (6.5-10.1) 9.3 FL (6.5-10.1) Neutrophils (%) (Auto) 64.9 % (45.0-75.0) 68.8 % (45.0-75.0) Lymphocytes (%) (Auto) 23.9 % (20.0-45.0) 22.1 % (20.0-45.0) Monocytes (%) (Auto) 9.7 % (1.0-10.0) 8.5 % (1.0-10.0) Eosinophils (%) (Auto) 0.5 % (0.0-3.0) 0.2 % (0.0-3.0) Basophils (%) (Auto) 1.1 % (0.0-2.0) 0.4 % (0.0-2.0) Sodium Level 142 MMOL/L (136-145) 141 MMOL/L (136-145) Potassium Level 3.5 MMOL/L (3.5-5.1) 3.6 MMOL/L (3.5-5.1) Chloride Level 105 MMOL/L (98-107) 107 MMOL/L (98-107) Carbon Dioxide Level 25 MMOL/L (21-32) 23 MMOL/L (21-32) Anion Gap 12 mmol/L (5-15) 11 mmol/L (5-15) Blood Urea Nitrogen 19 mg/dL (7-18) H 21 mg/dL (7-18) H Creatinine 1.6 MG/DL (0.55-1.30) H 1.3 MG/DL (0.55-1.30) Estimat Glomerular Filtration Rate 42.9 mL/min (>60) 54.6 mL/min (>60) Glucose Level 127 MG/DL (74-106) H 100 MG/DL (74-106) Lactic Acid Level 2.30 mmol/L (0.4-2.0) H 1.60 mmol/L (0.66-2.22) Calcium Level 9.4 MG/DL (8.5-10.1) 8.5 MG/DL (8.5-10.1) Phosphorus Level 3.3 MG/DL (2.5-4.9) 2.8 MG/DL (2.5-4.9) Magnesium Level 1.7 MG/DL (1.8-2.4) L 1.7 MG/DL (1.8-2.4) L Total Bilirubin 0.4 MG/DL (0.2-1.0) 0.5 MG/DL (0.2-1.0) Aspartate Amino Transf (AST/SGOT) 18 U/L (15-37) 16 U/L (15-37) Alanine Aminotransferase (ALT/SGPT) 18 U/L (12-78) 16 U/L (12-78) Alkaline Phosphatase 124 U/L (46-116) H 97 U/L (46-116) Total Creatine Kinase 88 U/L (26-308) 65 U/L (26-308) Creatine Kinase MB 1.4 NG/ML (0.0-3.6) Creatine Kinase MB Relative Index 1.5 Troponin I 0.012 ng/mL (0.000-0.056) Total Protein 8.0 G/DL (6.4-8.2) 7.5 G/DL (6.4-8.2) Albumin 3.5 G/DL (3.4-5.0) 3.1 G/DL (3.4-5.0) L Globulin 4.5 g/dL 4.4 g/dL Albumin/Globulin Ratio 0.8 (1.0-2.7) L 0.7 (1.0-2.7) L Urine Color Pale yellow Urine Appearance Clear Urine pH 8 (4.5-8.0) Urine Specific Victor 1.010 (1.005-1.035) Urine Protein 1+ (NEGATIVE) H Urine Glucose (UA) Negative (NEGATIVE) Urine Ketones Negative (NEGATIVE) Urine Blood Negative (NEGATIVE) Urine Nitrite Negative (NEGATIVE) Urine Bilirubin Negative (NEGATIVE) Urine Urobilinogen Normal MG/DL (0.0-1.0) Urine Leukocyte Esterase 1+ (NEGATIVE) H Urine RBC 0-2 /HPF (0 - 0) H Urine WBC 2-4 /HPF (0 - 0) Urine Squamous Epithelial Cells None /LPF (NONE/OCC) Urine Bacteria Few /HPF (NONE) Osmolality 297 mOsm/kg (297-317) Uric Acid 2.9 MG/DL (2.6-7.2) Free Thyroxine 1.03 NG/DL (0.76-1.46) Microbiology Date/Time Source Procedure Growth Status 11/18/18 01:03 Rectum Received Height (Feet): 5 Height (Inches): 5.00 Weight (Pounds): 155 Medications Current Medications Medications (Trade) Dose Ordered Sig/Roman Route PRN Reason Start Time Stop Time Status Last Admin Dose Admin Acetaminophen (Tylenol) 650 mg Q4H PRN ORAL fever 11/17/18 23:00 12/17/18 22:59 11/18/18 00:27 Albuterol/ Ipratropium (Albuterol/ Ipratropium) 3 ml Q4H PRN HHN Shortness of Breath 11/17/18 23:00 11/22/18 22:59 Amlodipine Besylate (Norvasc) 10 mg DAILY ORAL 11/18/18 09:00 12/18/18 08:59 11/18/18 08:28 Baclofen (Lioresal) 10 mg THREE TIMES A DAY ORAL 11/18/18 09:00 12/18/18 08:59 11/18/18 08:29 Cefepime HCl 2 gm/ Dextrose 110 ml @ 220 mls/hr Q12HR@0300,1500 IV 11/18/18 03:00 11/25/18 02:59 11/18/18 03:07 Darunavir (Prezista) 600 mg EVERY 12 HOURS ORAL 11/18/18 09:00 12/18/18 08:59 UNV Dextrose (Dextrose 50%) STAT PRN IV Hypoglycemia 11/17/18 23:00 12/17/18 22:59 Etravirine (Intelence) 200 mg EVERY 12 HOURS ORAL 11/18/18 09:00 12/18/18 08:59 UNV Heparin Sodium (Porcine) (Heparin 5000 units/ml) 5,000 units EVERY 12 HOURS SUBQ 11/18/18 09:00 12/18/18 08:59 11/18/18 08:40 Iopamidol (Isovue-300 100ml) 100 ml NOW PRN INJ Radiology Procedure 11/17/18 19:15 Levothyroxine Sodium (Synthroid) 25 mcg DAILY@0630 ORAL 11/18/18 06:30 12/18/18 06:29 11/18/18 06:09 Mirtazapine (Remeron) 15 mg BEDTIME ORAL 11/18/18 21:00 12/18/18 20:59 Morphine Sulfate (Morphine Sulfate) 2 mg Q4H PRN IVP Moderate Pain (Pain Scale 4-6) 11/17/18 23:00 11/24/18 22:59 11/18/18 08:30 Nitroglycerin (Ntg) 0.4 mg Q5M PRN SL Prn Chest Pain 11/17/18 23:00 12/17/18 22:59 Ondansetron HCl (Zofran) 4 mg Q6H PRN IVP Nausea & Vomiting 11/17/18 23:00 12/17/18 22:59 11/18/18 00:57 Oxycodone/ Acetaminophen (Percocet 10/325) 1 tab Q4H PRN ORAL Severe Breakthru Pain (>7) 11/18/18 10:45 11/24/18 22:44 Paroxetine HCl (Paxil) 40 mg DAILY ORAL 11/18/18 09:00 12/18/18 08:59 11/18/18 08:28 Polyethylene Glycol (Miralax) 17 gm DAILYPRN PRN ORAL Constipation 11/17/18 23:00 12/17/18 22:59 Ritonavir (Norvir) 100 mg TWICE A DAY ORAL 11/18/18 09:00 12/18/18 08:59 UNV Sodium Chloride 1,000 ml @ 100 mls/hr Q10H IVLG 11/18/18 00:00 12/18/18 00:00 11/18/18 10:00 Tamsulosin HCl (Flomax) 0.4 mg BEDTIME ORAL 11/18/18 21:00 12/18/18 20:59 Temazepam (Restoril) 15 mg HSPRN PRN ORAL Insomnia 11/17/18 23:00 11/24/18 22:59 Vancomycin HCl (Vanco rx to dose) 1 ea DAILY PRN MISC prn 11/17/18 23:45 12/17/18 23:44 Vancomycin HCl 1 gm/Dextrose 275 ml @ 183.3 mls/ hr Q24H IVPB 11/18/18 01:00 11/23/18 00:59 11/18/18 00:27 Assessment/Plan Assessment/Plan: Abx: IV Vancomycin 11/17- Zosyn x1 11/17 Cefepime 11/18- Assessment: Sepsis- ?intraabdominal source- r/o bacteremia, PNA- ?kidney stone -CT abd/p w/: Mild right hydroureteronephrosis. An obstructing stone is not definitely seen.However there is a tiny punctate calcification about 1 mm probably within the right distal ureter.Mild to moderate stool. Cysts within the left kidney. Small umbilical hernia containing fat -u/a neg -Bcx p -CXR p Fever No leukocytosis HARVINDER, improving ?Recent dx of Rectal CA at [facility]-obtain records hx of Cdiff 09/2018 - failed oral vancomycin; sp tx w/ Fidaxomicin --09/06 Cdiff toxin a/b +; repeat Cdiff neg x2 -09/06 SP Colonoscopy: proctitis -stool cx: normal thomas -Giardia ag, cryptosporidium neg Hx of UTI 08/2018 -u/a wbc 10-15, shirley neg, leuk +3; ucx >100K PROTEUS MIRABILIS ( I Levo; R Amp, bactrim, Cipro, Nitro; S Ceftriaxone) HIV/AIDS- on ARV -09/2018 182 (10.1%), VL UD -11/2017 CD4 323 hx of rectal CA CVA 2004 HTN Plan: -Continue empiric IV Vancomycin #2, Cefepime #1 (abx d #2) and add Flagyl for anaerobic coverage pending cultures -09/23 SP Fidaxomicin #10 -09/13/18 SP PO Vancomycin #8 -f/u cx -Monitor CBC/CMP, temperatures -aspiration precautions -continue ARV- will clarify regimen w/ Dr Hannah Trinh (His HIV provider) [phone]- prior to resuming ARV as there is confusion as of what medicines patient is currently taking -CD4 am Thank you for this consultation. Will continue to follow along with you. Discussed with Miranda Flood M.D. November 18, 2018 11:21
--- NOTE | 2018-11-18 12:06 | Consultation ---
History of Present Illness General Date patient seen: November 18, 2018 Time patient seen: 10:45 Chief Complaint: Abdominal Pain Referring physician: dr Barragan Reason for Consultation: possible PNA in HIV/AIDS patient Present Illness HPI 68 years old male with history of hypertension, rectal CA, history of CVA in 2004, HIV ( diagnosed in 1984), recent UTI in 08/2018, C Dif colitis in 09/2018, presented to the emergency department from transitional facility with 2 days of intermittent abdominal pain, fever, chills, decreased bowel movement and rectal bleeding for 1 day. Patient reported recent rectal biopsy at [facility]. Upon evaluation patient had fever and was tachycardic. Laboratory work-up revealed no leukocytosis, hemoglobin 13.1, hematocrit 38. Platelet count 158. Stable electrolytes. BUN 19, creatinine 1.6. Glucose 127. Stable LFT . Troponin - 0.012. Albumin 3.5 . Urinalysis revealed no pyuria, +1 leukocyte esterase. Lactic acid 1.6. Chest x-ray revealed no acute cardiopulmonary pathology. CT of the abdomen and pelvis demonstrated mild right hydroureteronephrosis. An obstructing stone was not definitely seen. However there was a tiny punctate calcification about 1 mm probably within the right distal ureter. Mild to moderate stool retention. Patient subsequently was admitted for further management Allergies: Coded Allergies: CODEINE (Unverified Allergy, Unknown, 11/28/17) EMTRICITABINE (Verified Allergy, Unknown, anxiousness, 08/31/18) SULFAMETHOXAZOLE (Unverified Allergy, Unknown, 10/27/17) TENOFOVIR (Verified Allergy, Unknown, anxiousness, 08/31/18) TRIMETHOPRIM (Unverified Allergy, Unknown, 10/27/17) Medication History Scheduled Acetaminophen* (Tylenol Extra Strength*), 500 MG ORAL Q6H Alendronate Sodium* (Fosamax*), 70 MG ORAL ONCE A WEEK, (Reported) Amlodipine Besylate (Norvasc), 10 MG ORAL DAILY, (Reported) Amoxicillin/Potassium Clav 875-125* (Augmentin 875-125 Tablet*), 1 TAB ORAL DAILY, (Reported) Aspirin* (Aspir 81*), 81 MG ORAL DAILY, (Reported) Baclofen* (Baclofen*), 10 MG ORAL THREE TIMES A DAY, (Reported) Calcium Carbonate (Oysco-500), 500 MG PO DAILY, (Reported) Cephalexin* (Keflex*), 500 MG ORAL EVERY 12 HOURS Cephalexin* (Keflex*), 500 MG ORAL EVERY 12 HOURS Cholecalciferol (Vitamin D3)* (Vitamin D*), 2,000 UNITS ORAL DAILY, (Reported) Cholestyramine (Cholestyramine Packet), 4 GM ORAL THREE TIMES A DAY Clotrimazole* (Lotrimin*), 1 APPLIC TOPIC TWICE A DAY, (Reported) Darunavir Ethanolate* (Prezista*), 600 MG ORAL EVERY 12 HOURS, (Reported) Darunavir Ethanolate* (Prezista*), 800 MG ORAL EVERY 12 HOURS, (Reported) Dutasteride (Avodart), 0.5 MG ORAL DAILY, (Reported) Entecavir* (Baraclude*), 1 MG ORAL DAILY, (Reported) Etravirine* (Intelence*), 200 MG ORAL EVERY 12 HOURS, (Reported) Fidaxomicin (Dificid), 200 MG ORAL EVERY 12 HOURS Finasteride* (Proscar*), 5 MG ORAL DAILY, (Reported) Gabapentin* (Gabapentin*), 600 MG ORAL THREE TIMES A DAY, (Reported) Hydrocortisone/Iodoquin/Aloe#2 (Alcortin A Gel), 48 GM TP QID, (Reported) Levothyroxine Sodium* (Levothyroxine Sodium*), 25 MCG ORAL DAILY, (Reported) Lorazepam* (Lorazepam*), 1 MG ORAL TWICE A DAY, (Reported) Losartan Potassium* (Losartan Potassium*), 50 MG ORAL DAILY, (Reported) Meloxicam* (Meloxicam*), 15 MG PO DAILY, (Reported) Methocarbamol (Methocarbamol), 500 MG PO Q6HR, (Reported) Metoprolol Tartrate* (Metoprolol Tartrate*), 25 MG ORAL EVERY 12 HOURS, ( Reported) Mirtazapine* (Mirtazapine*), 15 MG ORAL BEDTIME, (Reported) Omeprazole (Omeprazole), 20 MG ORAL DAILY, (Reported) Oxycodone HCl/Acetaminophen (Percocet 10-325 mg Tablet), 1 EACH PO TID, ( Reported) Oxycodone Hcl/Acetaminophen (Endocet 10-325 Mg Tablet), 1 TAB ORAL Q4H, ( Reported) Paroxetine Hcl (Paroxetine Hcl), 40 MG ORAL DAILY, (Reported) Raltegravir Potassium (Isentress), 400 MG ORAL TWICE A DAY, (Reported) Ritonavir* (Norvir*), 100 MG ORAL TWICE A DAY, (Reported) Tamsulosin Hcl (Tamsulosin Hcl*), 0.4 MG ORAL BEDTIME, (Reported) Valacyclovir Hcl* (Valtrex*), 1,000 MG ORAL DAILY, (Reported) Vancomycin HCl (Vancomycin HCl), 125 MG ORAL FOUR TIMES A DAY Scheduled PRN Eszopiclone (Lunesta), 3 MG ORAL BEDTIME PRN for Insomnia, (Reported) Ondansetron Odt* (Zofran Odt*), 8 MG ORAL Q6H PRN for Nausea & Vomiting, ( Reported) Miscellaneous Medications Elviteg/Jihan/Emtric/Tenofo Ala (Genvoya Tablet), 1 EACH PO, (Reported) Mirabegron (Myrbetriq), 25 MG PO, (Reported) Oxybutynin Chloride (Oxybutynin Chloride), 10 MG PO, (Reported) Simethicone (Gas Relief), 125 MG PO, (Reported) Unable to Obtain Medications (Unable To Obtain Meds), (Reported) Patient History Healthcare decision maker Resuscitation status Full Code Advanced Directive on File Review of Systems Constitutional: Reports: fever, weakness Eye: Reports: no symptoms ENT: Reports: no symptoms Respiratory: Reports: no symptoms Cardiovascular: Reports: no symptoms Gastrointestinal: Reports: see HPI Musculoskeletal: Reports: joint pain - ocasional Skin: Reports: dryness Psychiatric: Reports: depressed feelings Neurological: Reports: no symptoms Endocrine: Reports: no symptoms Hematologic/Lymphatic: Reports: other - HIV disease Physical Exam General Appearance: no apparent distress - awake, alert, weak male Lines, tubes and drains: peripheral HEENT: normocephalic, atraumatic, anicteric, mucous membranes moist Neck: supple Respiratory/Chest: lungs clear - with moderate air exchange , no respiratory distress, no accessory muscle use Cardiovascular/Chest: normal peripheral pulses, normal rate Abdomen: non tender, soft Extremities: normal range of motion, no calf tenderness Neurologic: alert, oriented x 3, responsive Musculoskeletal: normal muscle bulk Last 24 Hour Vital Signs Date Time Temp Pulse Resp B/P (MAP) Pulse Ox O2 Delivery O2 Flow Rate FiO2 11/18/18 09:00 Room Air 11/18/18 08:28 80 142/86 11/18/18 08:00 83 11/18/18 04:00 80 11/18/18 04:00 99.4 98 18 142/86 (104) 97 11/18/18 00:57 101.1 11/18/18 00:30 101.1 11/18/18 00:00 102.2 100 18 152/93 (112) 96 11/18/18 00:00 98 11/17/18 23:17 Room Air 11/17/18 22:30 98 11/17/18 22:30 97.0 101 20 165/93 (117) 97 11/17/18 22:15 98.9 107 13 158/89 100 Room Air 11/17/18 21:48 100.9 11/17/18 19:48 100.9 11/17/18 19:31 100.9 107 19 114/64 98 Room Air 11/17/18 19:00 108 18 Room Air 11/17/18 18:54 100.9 108 18 98 Room Air Intake and Output 11/17/18 11/18/18 18:59 06:59 Intake Total 1000 ml Output Total 701 ml Balance 299 ml Intake IV Total 1000 ml Output Urine Total 701 ml # Bowel Movements 1 Laboratory Tests Test 11/17/18 19:10 11/17/18 21:17 11/17/18 21:35 11/18/18 07:45 White Blood Count 7.6 K/UL (4.8-10.8) 10.3 K/UL (4.8-10.8) Red Blood Count 4.15 M/UL (4.70-6.10) L 3.79 M/UL (4.70-6.10) L Hemoglobin 13.1 G/DL (14.2-18.0) L 12.2 G/DL (14.2-18.0) L Hematocrit 38.0 % (42.0-52.0) L 35.8 % (42.0-52.0) L Mean Corpuscular Volume 92 FL (80-99) 95 FL (80-99) Mean Corpuscular Hemoglobin 31.7 PG (27.0-31.0) H 32.2 PG (27.0-31.0) H Mean Corpuscular Hemoglobin Concent 34.6 G/DL (32.0-36.0) 34.0 G/DL (32.0-36.0) Red Cell Distribution Width 11.5 % (11.6-14.8) L 12.1 % (11.6-14.8) Platelet Count 158 K/UL (150-450) 144 K/UL (150-450) L Mean Platelet Volume 8.7 FL (6.5-10.1) 9.3 FL (6.5-10.1) Neutrophils (%) (Auto) 64.9 % (45.0-75.0) 68.8 % (45.0-75.0) Lymphocytes (%) (Auto) 23.9 % (20.0-45.0) 22.1 % (20.0-45.0) Monocytes (%) (Auto) 9.7 % (1.0-10.0) 8.5 % (1.0-10.0) Eosinophils (%) (Auto) 0.5 % (0.0-3.0) 0.2 % (0.0-3.0) Basophils (%) (Auto) 1.1 % (0.0-2.0) 0.4 % (0.0-2.0) Sodium Level 142 MMOL/L (136-145) 141 MMOL/L (136-145) Potassium Level 3.5 MMOL/L (3.5-5.1) 3.6 MMOL/L (3.5-5.1) Chloride Level 105 MMOL/L (98-107) 107 MMOL/L (98-107) Carbon Dioxide Level 25 MMOL/L (21-32) 23 MMOL/L (21-32) Anion Gap 12 mmol/L (5-15) 11 mmol/L (5-15) Blood Urea Nitrogen 19 mg/dL (7-18) H 21 mg/dL (7-18) H Creatinine 1.6 MG/DL (0.55-1.30) H 1.3 MG/DL (0.55-1.30) Estimat Glomerular Filtration Rate 42.9 mL/min (>60) 54.6 mL/min (>60) Glucose Level 127 MG/DL (74-106) H 100 MG/DL (74-106) Lactic Acid Level 2.30 mmol/L (0.4-2.0) H 1.60 mmol/L (0.66-2.22) Calcium Level 9.4 MG/DL (8.5-10.1) 8.5 MG/DL (8.5-10.1) Phosphorus Level 3.3 MG/DL (2.5-4.9) 2.8 MG/DL (2.5-4.9) Magnesium Level 1.7 MG/DL (1.8-2.4) L 1.7 MG/DL (1.8-2.4) L Total Bilirubin 0.4 MG/DL (0.2-1.0) 0.5 MG/DL (0.2-1.0) Aspartate Amino Transf (AST/SGOT) 18 U/L (15-37) 16 U/L (15-37) Alanine Aminotransferase (ALT/SGPT) 18 U/L (12-78) 16 U/L (12-78) Alkaline Phosphatase 124 U/L (46-116) H 97 U/L (46-116) Total Creatine Kinase 88 U/L (26-308) 65 U/L (26-308) Creatine Kinase MB 1.4 NG/ML (0.0-3.6) Creatine Kinase MB Relative Index 1.5 Troponin I 0.012 ng/mL (0.000-0.056) Total Protein 8.0 G/DL (6.4-8.2) 7.5 G/DL (6.4-8.2) Albumin 3.5 G/DL (3.4-5.0) 3.1 G/DL (3.4-5.0) L Globulin 4.5 g/dL 4.4 g/dL Albumin/Globulin Ratio 0.8 (1.0-2.7) L 0.7 (1.0-2.7) L Urine Color Pale yellow Urine Appearance Clear Urine pH 8 (4.5-8.0) Urine Specific Dora 1.010 (1.005-1.035) Urine Protein 1+ (NEGATIVE) H Urine Glucose (UA) Negative (NEGATIVE) Urine Ketones Negative (NEGATIVE) Urine Blood Negative (NEGATIVE) Urine Nitrite Negative (NEGATIVE) Urine Bilirubin Negative (NEGATIVE) Urine Urobilinogen Normal MG/DL (0.0-1.0) Urine Leukocyte Esterase 1+ (NEGATIVE) H Urine RBC 0-2 /HPF (0 - 0) H Urine WBC 2-4 /HPF (0 - 0) Urine Squamous Epithelial Cells None /LPF (NONE/OCC) Urine Bacteria Few /HPF (NONE) Osmolality 297 mOsm/kg (297-317) Uric Acid 2.9 MG/DL (2.6-7.2) Free Thyroxine 1.03 NG/DL (0.76-1.46) Microbiology Date/Time Source Procedure Growth Status 11/18/18 01:03 Rectum Received Height (Feet): 5 Height (Inches): 5.00 Weight (Pounds): 155 Medications Current Medications Medications (Trade) Dose Ordered Sig/Roman Route PRN Reason Start Time Stop Time Status Last Admin Dose Admin Acetaminophen (Tylenol) 650 mg Q4H PRN ORAL fever 11/17/18 23:00 12/17/18 22:59 11/18/18 00:27 Albuterol/ Ipratropium (Albuterol/ Ipratropium) 3 ml Q4H PRN HHN Shortness of Breath 11/17/18 23:00 11/22/18 22:59 Amlodipine Besylate (Norvasc) 10 mg DAILY ORAL 11/18/18 09:00 12/18/18 08:59 11/18/18 08:28 Baclofen (Lioresal) 10 mg THREE TIMES A DAY ORAL 11/18/18 09:00 12/18/18 08:59 11/18/18 08:29 Cefepime HCl 2 gm/ Dextrose 110 ml @ 220 mls/hr Q12HR@0300,1500 IV 11/18/18 03:00 11/25/18 02:59 11/18/18 03:07 Darunavir (Prezista) 600 mg EVERY 12 HOURS ORAL 11/18/18 09:00 12/18/18 08:59 UNV Dextrose (Dextrose 50%) STAT PRN IV Hypoglycemia 11/17/18 23:00 12/17/18 22:59 Etravirine (Intelence) 200 mg EVERY 12 HOURS ORAL 11/18/18 09:00 12/18/18 08:59 UNV Heparin Sodium (Porcine) (Heparin 5000 units/ml) 5,000 units EVERY 12 HOURS SUBQ 11/18/18 09:00 12/18/18 08:59 11/18/18 08:40 Iopamidol (Isovue-300 100ml) 100 ml NOW PRN INJ Radiology Procedure 11/17/18 19:15 Levothyroxine Sodium (Synthroid) 25 mcg DAILY@0630 ORAL 11/18/18 06:30 12/18/18 06:29 11/18/18 06:09 Metronidazole (Flagyl) 500 mg Q8HR ORAL 11/18/18 14:00 11/25/18 13:59 Mirtazapine (Remeron) 15 mg BEDTIME ORAL 11/18/18 21:00 12/18/18 20:59 Morphine Sulfate (Morphine Sulfate) 2 mg Q4H PRN IVP Moderate Pain (Pain Scale 4-6) 11/17/18 23:00 11/24/18 22:59 11/18/18 08:30 Nitroglycerin (Ntg) 0.4 mg Q5M PRN SL Prn Chest Pain 11/17/18 23:00 12/17/18 22:59 Ondansetron HCl (Zofran) 4 mg Q6H PRN IVP Nausea & Vomiting 11/17/18 23:00 12/17/18 22:59 11/18/18 00:57 Oxycodone/ Acetaminophen (Percocet 10/325) 1 tab Q4H PRN ORAL Severe Breakthru Pain (>7) 11/18/18 10:45 11/24/18 22:44 Paroxetine HCl (Paxil) 40 mg DAILY ORAL 11/18/18 09:00 12/18/18 08:59 11/18/18 08:28 Polyethylene Glycol (Miralax) 17 gm DAILYPRN PRN ORAL Constipation 11/17/18 23:00 12/17/18 22:59 Ritonavir (Norvir) 100 mg TWICE A DAY ORAL 11/18/18 09:00 12/18/18 08:59 UNV Sodium Chloride 1,000 ml @ 100 mls/hr Q10H IVLG 11/18/18 00:00 12/18/18 00:00 11/18/18 10:00 Tamsulosin HCl (Flomax) 0.4 mg BEDTIME ORAL 11/18/18 21:00 12/18/18 20:59 Temazepam (Restoril) 15 mg HSPRN PRN ORAL Insomnia 11/17/18 23:00 11/24/18 22:59 Vancomycin HCl (Vanco rx to dose) 1 ea DAILY PRN MISC prn 11/17/18 23:45 12/17/18 23:44 Vancomycin HCl/ Dextrose 275 ml @ 183.333 mls/hr Q24H IVPB 11/19/18 01:00 11/24/18 00:59 Assessment/Plan Status Narrative ASSESSMENT Sepsis Possible PNA Acute kidney injury, possibly due to mild hydroureteronephrosis seen on CT scan Rectal CA, recently diagnosed HIV/AIDS Fecal retention History of CVA Hypertension Hypothyroidism Depression PLAN OF CARE [facility] floor O2 HHN prn CXR negative, fup with CXR DVT prophylaxis abx as per ID recommendation unclear source of sepsis: intra-abdominal versus kidney stone versus PNA? CT of the abdomen pelvis noted follow-up with cx IVF, monitor renal parameters, lytes correct electrolytes prn avoid nephrotoxic acute kidney injury possibly due to mild hydroureteronephrosis seen on the CT scan nephro eval pending ARV therapy continue as per ID specialist last CD4 182 on 09/2018 check CD4 count aspiration precaution swallow eval BP management with CCB bowel regimen continue levothyroxine check TSH pain management antiemetic as needed supportive care continue antidepressive case discussed and evaluated by supervising physician Karla Mason NP November 18, 2018 12:06
[2018-11-18] MEDS: metroNIDAZOLE 500mg tab ORAL SCH ×2 (14:43→21:24)
--- NOTE | 2018-11-18 16:32 | History & Physical ---
History and Physical History & Physicial Dictated for Dr Barragan no. [id number]. Trey Whitaker MD November 18, 2018 16:32
--- NOTE | 2018-11-18 18:01 | NUR ---
CASE MANAGEMENT: REVIEW 68Y/M BIBA FROM [facility] CC: ABD PAIN SI: SEPSIS . RECTAL BLEEDING . HIV/AIDS T 102.2 HR 107 RR 18 BP 142/86 SAT 97% ROOM AIR H/H 13.1/38.0 LACTIC ACID 2.30 IS: NS IVF X1 MORPHINE IV X1 ZOSYN IV X1 PATIENT ADMITTED TO TELEMETRY UNIT 11/17/2018 DCP: PATIENT IS FROM [facility]
[2018-11-18 20:00] VITALS: BP 154/83
[2018-11-18] MEDS ORDERED: Tamsulosin 0.4mg cap ORAL SCH (21:00)
--- NOTE | 2018-11-18 23:30 | History and Physical Report ---
DATE OF ADMISSION: 11/17/2018 CHIEF COMPLAINT: The patient is a 68-year-old white male who presents with chief complaint of abdominal pain and rectal bleeding. HISTORY OF PRESENT ILLNESS: The patient was admitted to [facility] from 09/13/2018 through 09/21/2018. The patient was diagnosed with a resistant strain of Clostridium difficile. The patient was treated with Dificid. The patient presented to [facility] complaining of a two-week history of constipation. Apparently, the patient had a rectal biopsy at [facility] two weeks ago. Since that time, the patient has had decreased bowel movements. The patient noticed blood in the toilet bowl after several hard stools. The patient presented to [facility]. The patient was admitted for rectal bleed to rule out colon cancer. REVIEW OF SYSTEMS: CONSTITUTIONAL: The patient denies weight loss or weight gain. The patient denies fevers or chills. HEENT: The patient denies ear or throat pain. The patient denies headache. CARDIOVASCULAR: The patient denies palpitations or chest pain. CHEST: The patient denies wheeze or shortness of breath. ABDOMEN: The patient complains of left-sided abdominal pain. The patient denies nausea, vomiting, diarrhea, or constipation. The patient also complains of constipation as above. The patient denies diarrhea. NEUROMUSCULAR: The patient denies seizures or generalized weakness. GENITOURINARY: The patient denies dysuria or increased frequency of urination. PAST MEDICAL HISTORY: Significant for: 1. HIV, current T-cell count 490 and viral load is undetectable. 2. History of rectal cancer. 3. Hypertension. 4. History of cerebrovascular accident. 5. Major depression. 6. Anxiety. PAST SURGICAL HISTORY: The patient denies. CURRENT MEDICATIONS: 1. Fosamax 70 mg p.o. weekly. 2. Amlodipine 10 mg p.o. daily. 3. Aspirin 81 mg p.o. daily. 4. Baclofen 10 mg p.o. three times daily. 5. Calcium carbonate 500 mg p.o. daily. 6. Vitamin D 2000 units p.o. daily. 7. Cholestyramine 4 g p.o. three times daily. 8. Prezista 600 mg p.o. twice daily. 9. Avodart 0.5 mg p.o. daily. 10. Genvoya one tablet p.o. daily. 11. Entecavir 0.5 mg two tablets p.o. daily. 12. Lunesta 3 mg p.o. nightly. 13. Intelence 200 mg p.o. twice daily. 14. Proscar 5 mg p.o. daily. 15. Gabapentin 300 mg p.o. three times daily. 16. Levoxyl 75 mcg p.o. daily. 17. Losartan 50 mg p.o. daily. 18. Lorazepam 1 mg p.o. twice daily. 19. Meloxicam 15 mg p.o. daily. 20. Methocarbamol 500 mg p.o. four times daily p.r.n. 21. Metoprolol 25 mg p.o. twice daily. 22. Myrbetriq 25 mg p.o. daily. 23. Mirtazapine 15 mg p.o. nightly. 24. Omeprazole 20 mg p.o. daily. 25. Zofran 8 mg p.o. q.6 h. p.r.n. 26. Oxybutynin 10 mg p.o. daily. 27. Tribune 10/325 mg one tablet p.o. q.8 h. p.r.n. 28. Paxil 40 mg p.o. daily. 29. Isentress 400 mg p.o. twice daily. 30. Norvir 100 mg p.o. twice daily. 31. Flomax 0.4 mg p.o. daily. ALLERGIES: 1. Codeine. 2. Emtricitabine. 3. Sulfamethoxazole 4. Tenofovir. 5. Trimethoprim sulfate. SOCIAL HISTORY: The patient lives at a board and care. The patient denies tobacco or alcohol use. The patient is . PHYSICAL EXAMINATION: VITAL SIGNS: Temperature 102.2, respirations 13 to 18, pulse 107, temperature 98, and blood pressure 150 to 165/93 to 89. GENERAL: The patient is a well-developed and well-nourished white male, in no apparent distress. HEENT: Eyes, pupils equal and responsive to light and accommodation. Extraocular movements are intact. NECK: Supple without lymphadenopathy. CHEST: Lungs are clear to auscultation bilaterally without wheezes or rales. CARDIOVASCULAR: Regular rhythm and rate. S1 and S2 are normal without murmurs, rubs, or gallops. ABDOMEN: Soft, nontender, and nondistended. Positive bowel sounds. No evidence of hepatosplenomegaly. Currently, no rebound or guarding noted. EXTREMITIES: Negative for clubbing, cyanosis, or edema. RECTAL/GENITAL: Refused. NEUROLOGIC: Cranial nerves II through XII are grossly intact without focal deficits. Motor strength is 5/5 bilaterally. Deep tendon reflexes are 2+ plantar. LABORATORY STUDIES: WBC 7.6, hemoglobin 13.1, hematocrit 38.0, and platelets 158,000. Sodium 142, potassium 3.5, chloride 105, CO2 25, BUN 19, creatinine 1.6, and glucose 127. CT scan of the abdomen showed left hydro/ureteronephrosis. No definite stone was visualized. ASSESSMENT: This is a 68-year-old white male. 1. Left abdominal pain. 2. Constipation. 3. Rectal bleeding. 4. Left hydronephrosis. 5. Hypertension. 6. HIV. 7. Hypothyroidism. 8. History of rectal cancer. 9. Cerebrovascular disease. 10. Major depression. 11. Anxiety. 12. Benign prostatic hypertrophy. TREATMENT: 1. Constipation/abdominal pain/rectal hemorrhage. Gastroenterology consultation with Dr. Dejan Germain. We will follow recommendation of Gastroenterology. 2. Right hydronephrosis. There is no definite stone seen. The patient may have passed a renal calculus. 3. Hypertension. Continue metoprolol and amlodipine as above. 4. HIV. Continue HAART per Infectious Disease. 5. Hypothyroidism. Continue Levoxyl as above. 6. History of rectal cancer. The patient is status post biopsy at [facility]. 7. Cerebrovascular disease. 8. Major depression. Continue Paxil as above. 9. Anxiety. 10. Benign prostatic hypertrophy. Continue Flomax and oxybutynin as above. Trey Whitaker M.D. DR: PINA JOB#: [id number] CC:
[2018-11-19] VITALS: BP 144/90
[2018-11-19] MEDS: Vancomycin 1.25gm Premix IVPB SCH (00:59)
[2018-11-19] MEDS: Cefepime HCl 2 GM in D5W 110 ML IV SCH ×2 (03:18→14:03)
[2018-11-19 04:00] VITALS: BP 142/72
[2018-11-19] MEDS: metroNIDAZOLE 500mg tab ORAL SCH ×3 (05:52→21:59)
[2018-11-19] MEDS: Levothyroxine 25mcg tab ORAL SCH (05:53)
--- NOTE | 2018-11-19 07:00 | NUR ---
NURSE NOTES: Noted with short runs of SVT in daryl 140s-150s. Asymptomatic. Left Dr. Whitaker a voicemail. Will endorse to next shift.
--- NOTE | 2018-11-19 07:22 | NUR ---
HAND-OFF: Report given to CHARLEY Bolanos.
--- NOTE | 2018-11-19 07:42 | NUR ---
NURSE NOTES: Received patient awake, alert. No SOB/respi distress noted. Denies any pain at this time. All needs attended. LAC IV line intact. Will cont to monitor.
[2018-11-19 08:00] VITALS: BP 152/90
--- NOTE | 2018-11-19 08:32 | Pulmonology Progress Note ---
Assessment/Plan Assessment/Plan ASSESSMENT Sepsis Possible PNA Acute kidney injury, possibly due to mild hydroureteronephrosis seen on CT scan -resolved Rectal CA, recently diagnosed HIV/AIDS Fecal retention History of CVA Hypertension Hypothyroidism Depression Hypokalemia PLAN OF CARE MS floor O2 HHN prn CXR negative, fup with CXR in am DVT prophylaxis aspiration precautions swallow eval in am abx as per ID recommendation unclear source of sepsis: intra-abdominal versus kidney stone versus PNA? CT of the abdomen pelvis noted follow-up with cx IVF, monitor renal parameters, lytes replete K today, check Mg avoid nephrotoxic acute kidney injury possibly due to mild hydroureteronephrosis seen on the CT scan vs dehydration - resolved nephro eval pending ARV therapy continue as per ID specialist last CD4 182 on 09/2018 check CD4 count -pending BP management with CCB bowel regimen continue levothyroxine , TSH WNL pain management antiemetic as needed supportive care continue antidepressive case discussed and evaluated by supervising physician Subjective Allergies: Coded Allergies: CODEINE (Unverified Allergy, Unknown, 11/28/17) EMTRICITABINE (Verified Allergy, Unknown, anxiousness, 08/31/18) SULFAMETHOXAZOLE (Unverified Allergy, Unknown, 10/27/17) TENOFOVIR (Verified Allergy, Unknown, anxiousness, 08/31/18) TRIMETHOPRIM (Unverified Allergy, Unknown, 10/27/17) Subjective leukocytosis resolved, afebrile, feeling a bit better K-2.9 nurse noted some diff with swallowing Objective Last 24 Hour Vital Signs Date Time Temp Pulse Resp B/P (MAP) Pulse Ox O2 Delivery O2 Flow Rate FiO2 11/19/18 08:26 95 152/90 11/19/18 08:00 98.0 95 18 152/90 (110) 98 11/19/18 04:00 75 11/19/18 04:00 98.0 75 18 142/72 (95) 98 11/19/18 00:45 100.4 11/19/18 00:00 99 11/19/18 00:00 101.0 99 20 144/90 (108) 95 11/18/18 21:00 Room Air 11/18/18 20:00 89 11/18/18 20:00 97.7 89 18 154/83 (106) 96 11/18/18 16:00 84 11/18/18 12:00 95 11/18/18 09:00 Room Air Intake and Output 11/18/18 11/19/18 19:00 07:00 Intake Total 240 ml 1285 ml Output Total 1200 ml Balance 240 ml 85 ml Intake Oral 240 ml IV Total 1285 ml Output Urine Total 1200 ml # Voids 4 # Bowel Movements 1 1 Objective General Appearance: no apparent distress , awake, alert, weak male Lines, tubes and drains: peripheral HEENT: normocephalic, atraumatic, anicteric, mucous membranes moist Neck: supple Respiratory/Chest: lungs clear with moderate air exchange , no respiratory distress, no accessory muscle use Cardiovascular/Chest: normal peripheral pulses, normal rate Abdomen: non tender, soft Extremities: normal range of motion, no calf tenderness Neurologic: alert, oriented x 3, responsive Musculoskeletal: normal muscle bulk Microbiology Date/Time Source Procedure Growth Status 11/17/18 19:15 Blood Blood Culture - Preliminary NO GROWTH AFTER 24 HOURS Resulted 11/17/18 19:00 Blood Blood Culture - Preliminary NO GROWTH AFTER 24 HOURS Resulted 11/18/18 01:03 Rectum Received Laboratory Tests 11/19/18 07:15: White Blood Count [Pending], Red Blood Count [Pending], Hemoglobin [Pending], Hematocrit [Pending], Mean Corpuscular Volume [Pending], Mean Corpuscular Hemoglobin [Pending], Mean Corpuscular Hemoglobin Concent [Pending], Red Cell Distribution Width [Pending], Platelet Count [Pending], Mean Platelet Volume [ Pending], Neutrophils (%) (Auto) [Pending], Lymphocytes (%) (Auto) [Pending], Monocytes (%) (Auto) [Pending], Eosinophils (%) (Auto) [Pending], Basophils (%) (Auto) [Pending], Lymphocytes [Pending], Sodium Level [Pending], Potassium Level [Pending], Chloride Level [Pending], Carbon Dioxide Level [Pending], Blood Urea Nitrogen [Pending], Creatinine [Pending], Estimat Glomerular Filtration Rate [Pending], Glucose Level [Pending], Calcium Level [Pending], Thyroid Stimulating Hormone (TSH) [Pending], Percent CD3 Cells [Pending], Absolute CD3 Count [Pending], Percent CD4 Cells [Pending], Absolute CD4 Count [ Pending], T-Lymphocyte CD4/CD8 Ratio [Pending], Percent CD8 Cells [Pending], Absolute CD8 Count [Pending] Current Medications Medications (Trade) Dose Ordered Sig/Roman Route PRN Reason Start Time Stop Time Status Last Admin Dose Admin Acetaminophen (Tylenol) 650 mg Q4H PRN ORAL fever 11/17/18 23:00 12/17/18 22:59 11/19/18 00:15 Albuterol/ Ipratropium (Albuterol/ Ipratropium) 3 ml Q4H PRN HHN Shortness of Breath 11/17/18 23:00 11/22/18 22:59 Amlodipine Besylate (Norvasc) 10 mg DAILY ORAL 11/18/18 09:00 12/18/18 08:59 11/19/18 08:26 Baclofen (Lioresal) 10 mg THREE TIMES A DAY ORAL 11/18/18 09:00 12/18/18 08:59 11/18/18 18:19 Cefepime HCl 2 gm/ Dextrose 110 ml @ 220 mls/hr Q12HR@0300,1500 IV 11/18/18 03:00 11/25/18 02:59 11/19/18 03:18 Dextrose (Dextrose 50%) STAT PRN IV Hypoglycemia 11/17/18 23:00 12/17/18 22:59 Heparin Sodium (Porcine) (Heparin 5000 units/ml) 5,000 units EVERY 12 HOURS SUBQ 11/18/18 09:00 12/18/18 08:59 11/18/18 21:24 Iopamidol (Isovue-300 100ml) 100 ml NOW PRN INJ Radiology Procedure 11/17/18 19:15 Levothyroxine Sodium (Synthroid) 25 mcg DAILY@0630 ORAL 11/18/18 06:30 12/18/18 06:29 11/19/18 05:53 Metronidazole (Flagyl) 500 mg Q8HR ORAL 11/18/18 14:00 11/25/18 13:59 11/19/18 05:52 Mirtazapine (Remeron) 15 mg BEDTIME ORAL 11/18/18 21:00 12/18/18 20:59 11/18/18 21:24 Morphine Sulfate (Morphine Sulfate) 2 mg Q4H PRN IVP Moderate Pain (Pain Scale 4-6) 5/17/19 23:00 11/24/18 22:59 11/18/18 21:35 Nitroglycerin (Ntg) 0.4 mg Q5M PRN SL Prn Chest Pain 11/17/18 23:00 12/17/18 22:59 Ondansetron HCl (Zofran) 4 mg Q6H PRN IVP Nausea & Vomiting 11/17/18 23:00 12/17/18 22:59 11/18/18 00:57 Oxycodone/ Acetaminophen (Percocet 10/325) 1 tab Q4H PRN ORAL Severe Breakthru Pain (>7) 11/18/18 10:45 11/24/18 22:44 Paroxetine HCl (Paxil) 40 mg DAILY ORAL 11/18/18 09:00 12/18/18 08:59 11/18/18 08:28 Polyethylene Glycol (Miralax) 17 gm DAILYPRN PRN ORAL Constipation 11/17/18 23:00 12/17/18 22:59 Sodium Chloride 1,000 ml @ 100 mls/hr Q10H IVLG 11/18/18 00:00 12/18/18 00:00 11/19/18 08:27 Tamsulosin HCl (Flomax) 0.4 mg BEDTIME ORAL 11/18/18 21:00 12/18/18 20:59 11/18/18 21:24 Temazepam (Restoril) 15 mg HSPRN PRN ORAL Insomnia 11/17/18 23:00 11/24/18 22:59 Vancomycin HCl (Vanco rx to dose) 1 ea DAILY PRN MISC prn 11/17/18 23:45 12/17/18 23:44 Vancomycin HCl/ Dextrose 275 ml @ 183.333 mls/hr Q24H IVPB 11/19/18 01:00 11/24/18 00:59 11/19/18 00:59 Karla Mason NP November 19, 2018 08:32
[2018-11-19 08:34] LABS: BASOPHILS % (AUTO) 0.5 % (0.0-2.0); EOSINOPHILS % (AUTO) 0.8 % (0.0-3.0); HEMATOCRIT 34.9 % (42.0-52.0); LYMPHOCYTES % (AUTO) 21.8 % (20.0-45.0); MEAN CORPUSCULAR VOLUME 93 FL (80-99); MONOCYTES % (AUTO) 7.3 % (1.0-10.0); NEUTROPHILS % (AUTO) 69.5 % (45.0-75.0); PLATELET COUNT 149 K/UL (150-450); RED BLOOD COUNT 3.74 M/UL (4.70-6.10); RED CELL DISTRIBUTION WIDTH 11.6 % (11.6-14.8); WHITE BLOOD COUNT 9.4 K/UL (4.8-10.8)
[2018-11-19 08:58] LABS: ANION GAP 10 mmol/L (5-15); BLOOD UREA NITROGEN 10 mg/dL (7-18); CALCIUM 8.2 MG/DL (8.5-10.1); CARBON DIOXIDE 22 MMOL/L (21-32); CHLORIDE 110 MMOL/L (98-107); CREATININE 0.9 MG/DL (0.55-1.30); POTASSIUM 2.9 MMOL/L (3.5-5.1); SODIUM 142 MMOL/L (136-145)
[2018-11-19] MEDS: PARoxetine 20mg tab ORAL SCH (09:00)
[2018-11-19] MEDS: Heparin 5000 units/ml inj SUBQ SCH ×2 (09:00→21:58)
[2018-11-19 12:00] VITALS: BP 135/93
--- NOTE | 2018-11-19 12:37 | General Progress Note ---
Assessment/Plan Problem List: (1) HIV (human immunodeficiency virus infection) ICD Codes: B20 - Human immunodeficiency virus [HIV] disease SNOMED: 23762094 (2) Rectal bleed ICD Codes: K62.5 - Hemorrhage of anus and rectum SNOMED: 47263692 (3) History of rectal cancer ICD Codes: Z85.048 - Personal history of other malignant neoplasm of rectum, rectosigmoid junction, and anus SNOMED: 669301120 (4) C. difficile colitis ICD Codes: A04.72 - Enterocolitis due to Clostridium difficile, not specified as recurrent SNOMED: 142551204 Assessment/Plan: bowel regimen obtain records from [facility] H&H fu ID recs Subjective ROS Limited/Unobtainable: Yes Allergies: Coded Allergies: CODEINE (Unverified Allergy, Unknown, 11/28/17) EMTRICITABINE (Verified Allergy, Unknown, anxiousness, 08/31/18) SULFAMETHOXAZOLE (Unverified Allergy, Unknown, 10/27/17) TENOFOVIR (Verified Allergy, Unknown, anxiousness, 08/31/18) TRIMETHOPRIM (Unverified Allergy, Unknown, 10/27/17) Objective Last 24 Hour Vital Signs Date Time Temp Pulse Resp B/P (MAP) Pulse Ox O2 Delivery O2 Flow Rate FiO2 11/19/18 12:00 97.3 94 18 135/93 (107) 98 11/19/18 09:00 Room Air 11/19/18 08:26 95 152/90 11/19/18 08:00 98.0 95 18 152/90 (110) 98 11/19/18 08:00 102 11/19/18 04:00 75 11/19/18 04:00 98.0 75 18 142/72 (95) 98 11/19/18 00:45 100.4 11/19/18 00:00 99 11/19/18 00:00 101.0 99 20 144/90 (108) 95 11/18/18 21:00 Room Air 11/18/18 20:00 89 11/18/18 20:00 97.7 89 18 154/83 (106) 96 11/18/18 16:00 84 Intake and Output 11/18/18 11/19/18 19:00 07:00 Intake Total 240 ml 1285 ml Output Total 1200 ml Balance 240 ml 85 ml Intake Oral 240 ml IV Total 1285 ml Output Urine Total 1200 ml # Voids 4 # Bowel Movements 1 1 Laboratory Tests 11/19/18 07:15: White Blood Count 9.4, Red Blood Count 3.74L, Hemoglobin 12.0L, Hematocrit 34.9L , Mean Corpuscular Volume 93, Mean Corpuscular Hemoglobin 32.2H, Mean Corpuscular Hemoglobin Concent 34.5, Red Cell Distribution Width 11.6, Platelet Count 149L, Mean Platelet Volume 9.1, Neutrophils (%) (Auto) 69.5, Lymphocytes ( %) (Auto) 21.8, Monocytes (%) (Auto) 7.3, Eosinophils (%) (Auto) 0.8, Basophils (%) (Auto) 0.5, Lymphocytes [Pending], Sodium Level 142, Potassium Level 2.9L, Chloride Level 110H, Carbon Dioxide Level 22, Anion Gap 10, Blood Urea Nitrogen 10, Creatinine 0.9, Estimat Glomerular Filtration Rate > 60, Glucose Level 109H , Calcium Level 8.2L, Magnesium Level 1.8, Thyroid Stimulating Hormone (TSH) 0.406, Percent CD3 Cells [Pending], Absolute CD3 Count [Pending], Percent CD4 Cells [Pending], Absolute CD4 Count [Pending], T-Lymphocyte CD4/CD8 Ratio [ Pending], Percent CD8 Cells [Pending], Absolute CD8 Count [Pending] Height (Feet): 5 Height (Inches): 5.00 Weight (Pounds): 155 General Appearance: alert EENT: normal ENT inspection Neck: supple Cardiovascular: normal rate Respiratory/Chest: decreased breath sounds Abdomen: normal bowel sounds, non tender, soft Extremities: non-tender Dejan Germain MD November 19, 2018 12:37
[2018-11-19] MEDS ORDERED: Lactulose 10gm/15ml UDC ORAL SCH (13:00)
--- NOTE | 2018-11-19 13:21 | Consultation ---
Consult Note Consult Note I am consulted for fluid and electrolyte management patient interviewed examined data reviewed ER note on 11/18: Patient is a 68 year old male brought in by EMS for increased left side intermittent abdominal pain for 2 days. Patient reports having a recent rectal biopsy for possible cancer at [facility]. He began having fever and chills as well as decreased bowel movements. He had been having increased difficulty with having stools. He is HIV positive and reports having had recent CD4 count and viral load performed. He denies any vomiting. Patient states he has had multiple hospitalizations in the past. He reports having increased rectal bleeding for the past 1 day. Patient denies any hematemesis. He had prior biopsy at this hospital which showed some proctitis. Allergies: CODEINE (Unverified Allergy, Unknown, 11/28/17) EMTRICITABINE (Verified Allergy, Unknown, anxiousness, 08/31/18) SULFAMETHOXAZOLE (Unverified Allergy, Unknown, 10/27/17) TENOFOVIR (Verified Allergy, Unknown, anxiousness, 08/31/18) TRIMETHOPRIM (Unverified Allergy, Unknown, 10/27/17) Hx Cardiac Problems: Yes - HIV/AIDS since 1984 Hx Hypertension: Yes Hx Cancer: Yes - RECTAL Hx Gastrointestinal Problems: Yes - umbilical hernia Hx Neurological Problems: Yes Hx Cerebrovascular Accident: Yes Hx Weakness: Yes . Assessment/Plan Sepsis Possible PNA Acute kidney injury, possibly due to mild hydroureteronephrosis seen on CT scan -resolved Rectal CA, recently diagnosed HIV/AIDS Fecal retention History of CVA Hypertension Hypothyroidism Depression Hypokalemia Anemia Plan: K supplement stool softner Reglan Gastric support Monitor lytes per orders Hayden Andres MD November 19, 2018 13:21
--- NOTE | 2018-11-19 13:47 | Internal Med Progress Note ---
Subjective Physician Name JulianneTrey Attending Physician Carlos Barragan MD Current Medications Medications (Trade) Dose Ordered Sig/Roman Route PRN Reason Start Time Stop Time Status Last Admin Dose Admin Acetaminophen (Tylenol) 650 mg Q4H PRN ORAL fever 11/17/18 23:00 12/17/18 22:59 11/19/18 00:15 Albuterol/ Ipratropium (Albuterol/ Ipratropium) 3 ml Q4H PRN HHN Shortness of Breath 11/17/18 23:00 11/22/18 22:59 Amlodipine Besylate (Norvasc) 10 mg DAILY ORAL 11/18/18 09:00 12/18/18 08:59 11/19/18 08:26 Baclofen (Lioresal) 10 mg THREE TIMES A DAY ORAL 11/18/18 09:00 12/18/18 08:59 11/18/18 18:19 Cefepime HCl 2 gm/ Dextrose 110 ml @ 220 mls/hr Q12HR@0300,1500 IV 11/18/18 03:00 11/25/18 02:59 11/19/18 03:18 Dextrose (Dextrose 50%) STAT PRN IV Hypoglycemia 11/17/18 23:00 12/17/18 22:59 Dextrose/ Electrolytes 1,000 ml @ 75 mls/hr [id number] IV 11/19/18 14:00 12/19/18 13:59 Docusate Sodium (Colace) 100 mg TID ORAL 11/19/18 18:00 12/19/18 17:59 Heparin Sodium (Porcine) (Heparin 5000 units/ml) 5,000 units EVERY 12 HOURS SUBQ 11/18/18 09:00 12/18/18 08:59 11/18/18 21:24 Iopamidol (Isovue-300 100ml) 100 ml NOW PRN INJ Radiology Procedure 11/17/18 19:15 Lactulose (Cephulac) 20 gm THREE TIMES A DAY ORAL 11/19/18 18:00 12/19/18 12:59 Levothyroxine Sodium (Synthroid) 25 mcg DAILY@0630 ORAL 11/18/18 06:30 12/18/18 06:29 11/19/18 05:53 Metoclopramide HCl (Reglan) 10 mg Q8HR IVP 11/19/18 14:00 11/20/18 06:01 Metronidazole (Flagyl) 500 mg Q8HR ORAL 11/18/18 14:00 11/25/18 13:59 11/19/18 05:52 Mirtazapine (Remeron) 15 mg BEDTIME ORAL 11/18/18 21:00 12/18/18 20:59 11/18/18 21:24 Morphine Sulfate (Morphine Sulfate) 2 mg Q4H PRN IVP Moderate Pain (Pain Scale 4-6) 11/17/18 23:00 11/24/18 22:59 11/18/18 21:35 Nitroglycerin (Ntg) 0.4 mg Q5M PRN SL Prn Chest Pain 11/17/18 23:00 12/17/18 22:59 Ondansetron HCl (Zofran) 4 mg Q6H PRN IVP Nausea & Vomiting 11/17/18 23:00 12/17/18 22:59 11/18/18 00:57 Oxycodone/ Acetaminophen (Percocet 10/325) 1 tab Q4H PRN ORAL Severe Breakthru Pain (>7) 11/18/18 10:45 11/24/18 22:44 Paroxetine HCl (Paxil) 40 mg DAILY ORAL 11/18/18 09:00 12/18/18 08:59 11/18/18 08:28 Polyethylene Glycol (Miralax) 17 gm BEDTIME ORAL 11/19/18 21:00 12/19/18 20:59 Polyethylene Glycol (Miralax) 17 gm DAILYPRN PRN ORAL Constipation 11/17/18 23:00 12/17/18 22:59 Tamsulosin HCl (Flomax) 0.4 mg BID ORAL 11/19/18 18:00 12/18/18 20:59 Temazepam (Restoril) 15 mg HSPRN PRN ORAL Insomnia 11/17/18 23:00 11/24/18 22:59 Vancomycin HCl (Vanco rx to dose) 1 ea DAILY PRN MISC prn 11/17/18 23:45 12/17/18 23:44 Vancomycin HCl/ Dextrose 275 ml @ 183.333 mls/hr Q24H IVPB 11/19/18 01:00 11/24/18 00:59 11/19/18 00:59 Allergies: Coded Allergies: CODEINE (Unverified Allergy, Unknown, 11/28/17) EMTRICITABINE (Verified Allergy, Unknown, anxiousness, 08/31/18) SULFAMETHOXAZOLE (Unverified Allergy, Unknown, 10/27/17) TENOFOVIR (Verified Allergy, Unknown, anxiousness, 08/31/18) TRIMETHOPRIM (Unverified Allergy, Unknown, 10/27/17) Objective Last Vital Signs Date Time Temp Pulse Resp B/P (MAP) Pulse Ox O2 Delivery O2 Flow Rate FiO2 11/19/18 12:00 97.3 94 18 135/93 (107) 98 11/19/18 09:00 Room Air Laboratory Tests Test 11/19/18 07:15 White Blood Count 9.4 K/UL (4.8-10.8) Red Blood Count 3.74 M/UL (4.70-6.10) L Hemoglobin 12.0 G/DL (14.2-18.0) L Hematocrit 34.9 % (42.0-52.0) L Mean Corpuscular Volume 93 FL (80-99) Mean Corpuscular Hemoglobin 32.2 PG (27.0-31.0) H Mean Corpuscular Hemoglobin Concent 34.5 G/DL (32.0-36.0) Red Cell Distribution Width 11.6 % (11.6-14.8) Platelet Count 149 K/UL (150-450) L Mean Platelet Volume 9.1 FL (6.5-10.1) Neutrophils (%) (Auto) 69.5 % (45.0-75.0) Lymphocytes (%) (Auto) 21.8 % (20.0-45.0) Monocytes (%) (Auto) 7.3 % (1.0-10.0) Eosinophils (%) (Auto) 0.8 % (0.0-3.0) Basophils (%) (Auto) 0.5 % (0.0-2.0) Lymphocytes Pending Sodium Level 142 MMOL/L (136-145) Potassium Level 2.9 MMOL/L (3.5-5.1) L Chloride Level 110 MMOL/L (98-107) H Carbon Dioxide Level 22 MMOL/L (21-32) Anion Gap 10 mmol/L (5-15) Blood Urea Nitrogen 10 mg/dL (7-18) Creatinine 0.9 MG/DL (0.55-1.30) Estimat Glomerular Filtration Rate > 60 mL/min (>60) Glucose Level 109 MG/DL (74-106) H Calcium Level 8.2 MG/DL (8.5-10.1) L Magnesium Level 1.8 MG/DL (1.8-2.4) Thyroid Stimulating Hormone (TSH) 0.406 uiU/mL (0.358-3.740) Percent CD3 Cells Pending Absolute CD3 Count Pending Percent CD4 Cells Pending Absolute CD4 Count Pending T-Lymphocyte CD4/CD8 Ratio Pending Percent CD8 Cells Pending Absolute CD8 Count Pending Microbiology Date/Time Source Procedure Growth Status 11/17/18 19:15 Blood Blood Culture - Preliminary NO GROWTH AFTER 24 HOURS Resulted 11/17/18 19:00 Blood Blood Culture - Preliminary NO GROWTH AFTER 24 HOURS Resulted 11/18/18 01:03 Rectum Received Intake and Output 11/18/18 11/19/18 19:00 07:00 Intake Total 240 ml 1285 ml Output Total 1200 ml Balance 240 ml 85 ml Intake Oral 240 ml IV Total 1285 ml Output Urine Total 1200 ml # Voids 4 # Bowel Movements 1 1 Objective PHYSICAL EXAMINATION: GENERAL: The patient is a well-developed and well-nourished white male, in no apparent distress. HEENT: Eyes, pupils equal and responsive to light and accommodation. Extraocular movements are intact. NECK: Supple without lymphadenopathy. CHEST: Lungs are clear to auscultation bilaterally without wheezes or rales. CARDIOVASCULAR: Regular rhythm and rate. S1 and S2 are normal without murmurs, rubs, or gallops. ABDOMEN: Soft, nontender, and nondistended. Positive bowel sounds. No evidence of hepatosplenomegaly. Currently, no rebound or guarding noted. EXTREMITIES: Negative for clubbing, cyanosis, or edema. RECTAL/GENITAL: Refused. NEUROLOGIC: Cranial nerves II through XII are grossly intact without focal deficits. Motor strength is 5/5 bilaterally. Deep tendon reflexes are 2+ plantar. Assessment/Plan Assessment/Plan ASSESSMENT: This is a 68-year-old white male. 1. Left abdominal pain. 2. Constipation. 3. Rectal bleeding. 4. Left hydronephrosis. 5. Hypertension. 6. HIV. 7. Hypothyroidism. 8. History of rectal cancer. 9. Cerebrovascular disease. 10. Major depression. 11. Anxiety. 12. Benign prostatic hypertrophy. 13. Paroxysmal supraventricular tachycardia TREATMENT: 1. Constipation/abdominal pain/rectal hemorrhage. Gastroenterology consultation with Dr. Dejan Germain. We will follow recommendation of Gastroenterology. 2. Right hydronephrosis. There is no definite stone seen. The patient may have passed a renal calculus. 3. Hypertension. Continue metoprolol and amlodipine as above. 4. HIV. Continue HAART per Infectious Disease. 5. Hypothyroidism. Continue Levoxyl as above. 6. History of rectal cancer. The patient is status post biopsy at [facility]. 7. Cerebrovascular disease. 8. Major depression. Continue Paxil as above. 9. Anxiety. 10. Benign prostatic hypertrophy. Continue Flomax and oxybutynin as above. 11. Await cardiology consult Trey Whitaker MD November 19, 2018 13:47
--- NOTE | 2018-11-19 13:58 | NUR ---
CASE MANAGEMENT: REVIEW SI: SEPSIS . RECTAL BLEEDING . HIV/AIDS T 101.0 HR 99 RR 20 BP 144/90 SAT 95% ROOM AIR H/H 12.0/34.[address] 32.2 K+ 2.9 IS: LACTULOSE PO TID D5 1/2 NS w/KCl 40mEq IVF @ 75ML/HR VANCO IV Q24HR FLAGYL PO Q8HR CEFEPIME IV Q12HR TELEMETRY UNIT STATUS DCP: PATIENT IS FROM [facility]
[2018-11-19] MEDS: D5 1/2NS w/KCl 40meq 1000ml 1,000 ML IV SCH (14:03)
[2018-11-19] MEDS: Metoclopramide 10mg/2ml Inj IVP SCH ×2 (14:04→21:59)
[2018-11-19 16:00] VITALS: BP 145/80
[2018-11-19] MEDS: Tamsulosin 0.4mg cap ORAL SCH (17:40)
[2018-11-19] MEDS: Docusate 100mg cap ORAL SCH (17:51)
[2018-11-19] MEDS: Lactulose 20gm/30ml UDC ORAL SCH (17:51)
[2018-11-19] MEDS ORDERED: Docusate 100mg cap ORAL SCH (18:00)
--- NOTE | 2018-11-19 19:28 | NUR ---
HAND-OFF: Report given to CHARLEY Gómez.
--- NOTE | 2018-11-19 19:29 | NUR ---
NURSE NOTES: Received report from CHARLEY Olivares. Pt is awake and resting in bed. IV site intact. Call light within reach. Will continue with plan of care.
[2018-11-19 20:00] VITALS: BP 152/100
[2018-11-19] MEDS ORDERED: Miralax 17gm pkt ORAL SCH (21:00)
[2018-11-20] VITALS: BP 149/101
--- NOTE | 2018-11-20 00:47 | NUR ---
NURSE NOTES: Pt is running SVT 155-160. Pt is asymptomatic. Attempted to call , left a message. Attempted to call Dr. Whitaker, left a message.
[2018-11-20] MEDS: Vancomycin 1.25gm Premix IVPB SCH (01:11)
[2018-11-20] MEDS: Metoprolol 5mg/5ml Inj IVP PRN ×2 (02:37→08:29)
[2018-11-20] MEDS: Cefepime HCl 2 GM in D5W 110 ML IV SCH ×2 (03:26→14:21)
[2018-11-20 04:00] VITALS: BP 145/94
[2018-11-20] MEDS: D5 1/2NS w/KCl 40meq 1000ml 1,000 ML IV SCH ×2 (06:56→17:32)
[2018-11-20] MEDS: metroNIDAZOLE 500mg tab ORAL SCH ×3 (07:03→21:20)
[2018-11-20] MEDS: Levothyroxine 25mcg tab ORAL SCH (07:03)
[2018-11-20 07:21] LABS: BASOPHILS % (AUTO) 0.5 % (0.0-2.0); EOSINOPHILS % (AUTO) 0.2 % (0.0-3.0); HEMATOCRIT 41.8 % (42.0-52.0); HEMOGLOBIN 14.4 G/DL (14.2-18.0); LYMPHOCYTES % (AUTO) 20.2 % (20.0-45.0); MEAN CORPUSCULAR VOLUME 93 FL (80-99); MONOCYTES % (AUTO) 6.9 % (1.0-10.0); NEUTROPHILS % (AUTO) 72.2 % (45.0-75.0); PLATELET COUNT 214 K/UL (150-450); RED CELL DISTRIBUTION WIDTH 11.7 % (11.6-14.8); WHITE BLOOD COUNT 13.5 K/UL (4.8-10.8)
--- NOTE | 2018-11-20 07:23 | NUR ---
NURSE NOTES:WOUND CARE NOTES:Pt presented on admission with erythema with moisture intertrigo sacrum and cleft of buttocks .Scrotal erythema also noted . Slit with biofilm noted to cleft of buttocks(L)2.2cm x (W)0.2cm. Pt complained of burning sensation at site. Both heels are boggy with non-blanchable erythema . Pt denied pain when each heel palpated. Tx.Plan: Apply Moisture Paste to sacrum ,cleft of buttocks and scrotum. Cover sacral area with Optifoam drsg. Change every 3 days and prn. Apply Cavilon Skin BArrier to both heels. Cover each hel with Optifoam drsg. Change every 7 days and prn. Reposition at least every 2hours or as tolerated. Off-load heels with pillow.
--- NOTE | 2018-11-20 07:28 | NUR ---
HAND-OFF: Report given to CHARLEY Nava. Endorsed plan of care.
--- NOTE | 2018-11-20 07:29 | NUR ---
NURSE NOTES: Received report from CHARLEY Gómez. Patient is resting in bed, in stable condition. No s/sx of SOB, breathing is even and unlabored. Denies any presence of pain or discomfort at this time. Bed is in lowest position, brakes engaged. Call light is kept within easy reach. Will continue to monitor patient.
[2018-11-20] MEDS: Metoclopramide 10mg/2ml Inj IVP SCH (07:40)
[2018-11-20 07:52] LABS: ALANINE AMINOTRANSFERASE 17 U/L (12-78); ALBUMIN 3.1 G/DL (3.4-5.0); ALBUMIN/GLOBULIN RATIO 0.6 (1.0-2.7); ALKALINE PHOSPHATASE 100 U/L (46-116); ANION GAP 12 mmol/L (5-15); ASPARTATE AMINO TRANSFERASE 25 U/L (15-37); BILIRUBIN,TOTAL 0.5 MG/DL (0.2-1.0); BLOOD UREA NITROGEN 12 mg/dL (7-18); CALCIUM 8.3 MG/DL (8.5-10.1); CARBON DIOXIDE 22 MMOL/L (21-32); CHLORIDE 109 MMOL/L (98-107); CHOLESTEROL 131 MG/DL (< 200); CREATININE 1.1 MG/DL (0.55-1.30); FERRITIN 107 NG/ML (8-388); GAMMA GLUTAMYL TRANSPEPTIDASE 39 U/L (5-85); HDL CHOLESTEROL 43 MG/DL (40-60); PHOSPHORUS 1.3 MG/DL (2.5-4.9); POTASSIUM 3.3 MMOL/L (3.5-5.1); SODIUM 142 MMOL/L (136-145); TRIGLYCERIDES 128 MG/DL (30-150)
[2018-11-20 08:00] VITALS: BP 132/84
[2018-11-20 08:17] LABS: AMMONIA 25 umol/L (11-32)
[2018-11-20] MEDS: Lactulose 20gm/30ml UDC ORAL SCH (08:18)
[2018-11-20] MEDS: Docusate 100mg cap ORAL SCH (08:18)
[2018-11-20] MEDS: Heparin 5000 units/ml inj SUBQ SCH ×2 (08:19→21:21)
[2018-11-20] MEDS: Tamsulosin 0.4mg cap ORAL SCH ×2 (08:20→17:32)
[2018-11-20] MEDS: PARoxetine 20mg tab ORAL SCH (08:28)
[2018-11-20 08:42] LABS: % IRON SATURATION 17 % (15-50); IRON 45 ug/dL (50-175); TOTAL IRON BINDING CAPACITY 263 ug/dL (250-450)
--- NOTE | 2018-11-20 10:05 | NUR ---
RADIOLOGY DEPT., CHEST X-RAY DONE.-P.DYE
--- NOTE | 2018-11-20 10:29 | NUR ---
NURSE NOTES: DAVIE Brink at nurse station, informed [employer] ANALYST that patient is having watery stool and that patient has lactulose, docusate scheduled medications. Patient ammonia level noted at this time is 25, pt denies any history of liver issues. DAVIE Brink acknowledged, discontinued lactulose and docusate. Ordered Immodium 2mg PO Q6HRS PRN for diarrhea. Orders entered, noted, and carried out. Will continue to monitor patient.
--- NOTE | 2018-11-20 10:59 | GI Progress Note ---
Assessment/Plan Problems: (1) Constipation ICD Codes: K59.00 - Constipation, unspecified SNOMED: 73385699 (2) Severe protein-calorie malnutrition ICD Codes: E43 - Unspecified severe protein-calorie malnutrition SNOMED: 428240861 (3) Rectal cancer ICD Codes: C20 - Malignant neoplasm of rectum SNOMED: 147282438 (4) Electrolyte imbalance ICD Codes: E87.8 - Other disorders of electrolyte and fluid balance, not elsewhere classified SNOMED: 221874553 (5) History of rectal cancer ICD Codes: Z85.048 - Personal history of other malignant neoplasm of rectum, rectosigmoid junction, and anus SNOMED: 712362696 (6) Intractable abdominal pain ICD Codes: R10.9 - Unspecified abdominal pain SNOMED: 83940532, 343687915 Status: unchanged Status Narrative Discussed with Dr. Germain. Assessment/Plan bowel regimen obtain records from [facility] ID recs The patient was seen and examined at bedside and all new and available data was reviewed in the patients chart. I agree with the above findings, impression and plan. (Patient seen earlier today. Signature stamp does not reflect patient encounter time.). - Dejan Germain MD Subjective Subjective constipation Objective Last 24 Hour Vital Signs Date Time Temp Pulse Resp B/P (MAP) Pulse Ox O2 Delivery O2 Flow Rate FiO2 11/20/18 09:00 Room Air 11/20/18 08:29 111 132/72 11/20/18 08:27 111 132/72 11/20/18 08:00 99.0 115 20 132/84 (100) 97 11/20/18 07:40 107 16 Room Air 21 11/20/18 04:00 98 11/20/18 04:00 97.9 98 20 145/94 (111) 94 11/20/18 02:37 120 152/97 11/20/18 01:50 98 16 Room Air 21 11/20/18 00:00 116 11/20/18 00:00 98.4 116 20 149/101 (117) 94 11/19/18 21:00 Room Air 11/19/18 20:00 115 11/19/18 20:00 98.2 115 20 152/100 (117) 93 11/19/18 16:00 97.5 110 18 145/80 (101) 98 11/19/18 16:00 107 11/19/18 12:00 101 11/19/18 12:00 97.3 94 18 135/93 (107) 98 Intake and Output 11/19/18 11/20/18 19:00 07:00 Intake Total 1500 ml 130 ml Output Total 1500 ml 350 ml Balance 0 ml -220 ml Intake Oral 480 ml 130 ml IV Total 1020 ml Output Urine Total 1400 ml 350 ml Emesis 100 ml # Bowel Movements 1 4 Laboratory Tests Test 11/20/18 06:25 White Blood Count 13.5 K/UL (4.8-10.8) H Red Blood Count 4.50 M/UL (4.70-6.10) L Hemoglobin 14.4 G/DL (14.2-18.0) Hematocrit 41.8 % (42.0-52.0) L Mean Corpuscular Volume 93 FL (80-99) Mean Corpuscular Hemoglobin 31.9 PG (27.0-31.0) H Mean Corpuscular Hemoglobin Concent 34.3 G/DL (32.0-36.0) Red Cell Distribution Width 11.7 % (11.6-14.8) Platelet Count 214 K/UL (150-450) Mean Platelet Volume 8.8 FL (6.5-10.1) Neutrophils (%) (Auto) 72.2 % (45.0-75.0) Lymphocytes (%) (Auto) 20.2 % (20.0-45.0) Monocytes (%) (Auto) 6.9 % (1.0-10.0) Eosinophils (%) (Auto) 0.2 % (0.0-3.0) Basophils (%) (Auto) 0.5 % (0.0-2.0) Sodium Level 142 MMOL/L (136-145) Potassium Level 3.3 MMOL/L (3.5-5.1) L Chloride Level 109 MMOL/L (98-107) H Carbon Dioxide Level 22 MMOL/L (21-32) Anion Gap 12 mmol/L (5-15) Blood Urea Nitrogen 12 mg/dL (7-18) Creatinine 1.1 MG/DL (0.55-1.30) Estimat Glomerular Filtration Rate > 60 mL/min (>60) Glucose Level 128 MG/DL (74-106) H Hemoglobin A1c 5.3 % (4.3-6.0) Lactic Acid Level 1.50 mmol/L (0.4-2.0) Uric Acid 2.6 MG/DL (2.6-7.2) Calcium Level 8.3 MG/DL (8.5-10.1) L Phosphorus Level 1.3 MG/DL (2.5-4.9) L Magnesium Level 1.9 MG/DL (1.8-2.4) Iron Level 45 ug/dL (50-175) L Total Iron Binding Capacity 263 ug/dL (250-450) Percent Iron Saturation 17 % (15-50) Unsaturated Iron Binding 218 ug/dL (112-346) Ferritin 107 NG/ML (8-388) Total Bilirubin 0.5 MG/DL (0.2-1.0) Gamma Glutamyl Transpeptidase 39 U/L (5-85) Aspartate Amino Transf (AST/SGOT) 25 U/L (15-37) Alanine Aminotransferase (ALT/SGPT) 17 U/L (12-78) Alkaline Phosphatase 100 U/L (46-116) Ammonia 25 umol/L (11-32) C-Reactive Protein, Quantitative 10.3 mg/dL (0.00-0.90) H Pro-B-Type Natriuretic Peptide 537 pg/mL (0-125) H Total Protein 8.0 G/DL (6.4-8.2) Albumin 3.1 G/DL (3.4-5.0) L Globulin 4.9 g/dL Albumin/Globulin Ratio 0.6 (1.0-2.7) L Triglycerides Level 128 MG/DL (30-150) Cholesterol Level 131 MG/DL (< 200) LDL Cholesterol 69 mg/dL (<100) HDL Cholesterol 43 MG/DL (40-60) Cholesterol/HDL Ratio 3.0 (3.3-4.4) L Vitamin B12 Level 255 PG/ML (193-986) Folate 12.5 NG/ML (8.6-58.9) Thyroid Stimulating Hormone (TSH) 2.920 uiU/mL (0.358-3.740) Height (Feet): 5 Height (Inches): 5.00 Weight (Pounds): 155 General Appearance: WD/WN, no apparent distress, alert Cardiovascular: normal rate Respiratory/Chest: normal breath sounds, no respiratory distress Abdominal Exam: normal bowel sounds, non tender, soft Extremities: normal range of motion, non-tender Jasen Brink NP November 20, 2018 10:59
[2018-11-20] MEDS ORDERED: Potassium Phosphate 30 MM in NS 275 ML IV ONE (11:00)
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
--- NOTE | 2018-11-20 11:57 | Cardiac Electrophysiology PN ---
Subjective Subjective [id number] Objective Last 24 Hour Vital Signs Date Time Temp Pulse Resp B/P (MAP) Pulse Ox O2 Delivery O2 Flow Rate FiO2 11/20/18 09:00 Room Air 11/20/18 08:29 111 132/72 11/20/18 08:27 111 132/72 11/20/18 08:00 99.0 115 20 132/84 (100) 97 11/20/18 07:40 107 16 Room Air 21 11/20/18 04:00 98 11/20/18 04:00 97.9 98 20 145/94 (111) 94 11/20/18 02:37 120 152/97 11/20/18 01:50 98 16 Room Air 21 11/20/18 00:00 116 11/20/18 00:00 98.4 116 20 149/101 (117) 94 11/19/18 21:00 Room Air 11/19/18 20:00 115 11/19/18 20:00 98.2 115 20 152/100 (117) 93 11/19/18 16:00 97.5 110 18 145/80 (101) 98 11/19/18 16:00 107 11/19/18 12:00 101 11/19/18 12:00 97.3 94 18 135/93 (107) 98 Intake and Output 11/19/18 11/20/18 19:00 07:00 Intake Total 1500 ml 130 ml Output Total 1500 ml 350 ml Balance 0 ml -220 ml Intake Oral 480 ml 130 ml IV Total 1020 ml Output Urine Total 1400 ml 350 ml Emesis 100 ml # Bowel Movements 1 4 Laboratory Tests Test 11/20/18 06:25 White Blood Count 13.5 K/UL (4.8-10.8) H Red Blood Count 4.50 M/UL (4.70-6.10) L Hemoglobin 14.4 G/DL (14.2-18.0) Hematocrit 41.8 % (42.0-52.0) L Mean Corpuscular Volume 93 FL (80-99) Mean Corpuscular Hemoglobin 31.9 PG (27.0-31.0) H Mean Corpuscular Hemoglobin Concent 34.3 G/DL (32.0-36.0) Red Cell Distribution Width 11.7 % (11.6-14.8) Platelet Count 214 K/UL (150-450) Mean Platelet Volume 8.8 FL (6.5-10.1) Neutrophils (%) (Auto) 72.2 % (45.0-75.0) Lymphocytes (%) (Auto) 20.2 % (20.0-45.0) Monocytes (%) (Auto) 6.9 % (1.0-10.0) Eosinophils (%) (Auto) 0.2 % (0.0-3.0) Basophils (%) (Auto) 0.5 % (0.0-2.0) Sodium Level 142 MMOL/L (136-145) Potassium Level 3.3 MMOL/L (3.5-5.1) L Chloride Level 109 MMOL/L (98-107) H Carbon Dioxide Level 22 MMOL/L (21-32) Anion Gap 12 mmol/L (5-15) Blood Urea Nitrogen 12 mg/dL (7-18) Creatinine 1.1 MG/DL (0.55-1.30) Estimat Glomerular Filtration Rate > 60 mL/min (>60) Glucose Level 128 MG/DL (74-106) H Hemoglobin A1c 5.3 % (4.3-6.0) Lactic Acid Level 1.50 mmol/L (0.4-2.0) Uric Acid 2.6 MG/DL (2.6-7.2) Calcium Level 8.3 MG/DL (8.5-10.1) L Phosphorus Level 1.3 MG/DL (2.5-4.9) L Magnesium Level 1.9 MG/DL (1.8-2.4) Iron Level 45 ug/dL (50-175) L Total Iron Binding Capacity 263 ug/dL (250-450) Percent Iron Saturation 17 % (15-50) Unsaturated Iron Binding 218 ug/dL (112-346) Ferritin 107 NG/ML (8-388) Total Bilirubin 0.5 MG/DL (0.2-1.0) Gamma Glutamyl Transpeptidase 39 U/L (5-85) Aspartate Amino Transf (AST/SGOT) 25 U/L (15-37) Alanine Aminotransferase (ALT/SGPT) 17 U/L (12-78) Alkaline Phosphatase 100 U/L (46-116) Ammonia 25 umol/L (11-32) C-Reactive Protein, Quantitative 10.3 mg/dL (0.00-0.90) H Pro-B-Type Natriuretic Peptide 537 pg/mL (0-125) H Total Protein 8.0 G/DL (6.4-8.2) Albumin 3.1 G/DL (3.4-5.0) L Globulin 4.9 g/dL Albumin/Globulin Ratio 0.6 (1.0-2.7) L Triglycerides Level 128 MG/DL (30-150) Cholesterol Level 131 MG/DL (< 200) LDL Cholesterol 69 mg/dL (<100) HDL Cholesterol 43 MG/DL (40-60) Cholesterol/HDL Ratio 3.0 (3.3-4.4) L Vitamin B12 Level 255 PG/ML (193-986) Folate 12.5 NG/ML (8.6-58.9) Thyroid Stimulating Hormone (TSH) 2.920 uiU/mL (0.358-3.740) Microbiology Date/Time Source Procedure Growth Status 11/17/18 19:15 Blood Blood Culture - Preliminary NO GROWTH AFTER 48 HOURS Resulted 11/17/18 19:00 Blood Blood Culture - Preliminary NO GROWTH AFTER 48 HOURS Resulted 11/18/18 01:03 Nasal Nares MRSA Culture - Final NO METHICILLIN RESISTANT STAPH AUREUS... Complete 11/18/18 01:03 Rectum VRE Culture - Final NO VANCOMYCIN RESISTANT ENTEROCOCCUS ... Complete 11/18/18 01:03 Rectum - Final NO CARBAPENEM-RESISTANT ENTEROBACTERI... Complete Abel Mendez MD November 20, 2018 11:57
[2018-11-20 12:00] VITALS: BP 122/77
[2018-11-20] MEDS: dilTIAZem HCl 60mg tab ORAL SCH ×2 (12:33→17:31)
--- NOTE | 2018-11-20 12:38 | Pulmonology Progress Note ---
Assessment/Plan Problems: (1) Sepsis (2) ATN (acute tubular necrosis) (3) Intractable abdominal pain (4) Diarrhea (5) History of rectal cancer (6) C. difficile colitis (7) Severe protein-calorie malnutrition (8) HIV (human immunodeficiency virus infection) Assessment/Plan iv fluids iv abx check cultures check electrolytes keep in teli f/u cardiology recommendations Subjective ROS Limited/Unobtainable: No Constitutional: Reports: no symptoms HEENT: Repors: no symptoms Respiratory: Reports: wheezing Allergies: Coded Allergies: CODEINE (Unverified Allergy, Unknown, 11/28/17) EMTRICITABINE (Verified Allergy, Unknown, anxiousness, 08/31/18) SULFAMETHOXAZOLE (Unverified Allergy, Unknown, 10/27/17) TENOFOVIR (Verified Allergy, Unknown, anxiousness, 08/31/18) TRIMETHOPRIM (Unverified Allergy, Unknown, 10/27/17) Objective Last 24 Hour Vital Signs Date Time Temp Pulse Resp B/P (MAP) Pulse Ox O2 Delivery O2 Flow Rate FiO2 11/20/18 09:00 Room Air 11/20/18 08:29 111 132/72 11/20/18 08:27 111 132/72 11/20/18 08:00 99.0 115 20 132/84 (100) 97 11/20/18 07:40 107 16 Room Air 21 11/20/18 04:00 98 11/20/18 04:00 97.9 98 20 145/94 (111) 94 11/20/18 02:37 120 152/97 11/20/18 01:50 98 16 Room Air 21 11/20/18 00:00 116 11/20/18 00:00 98.4 116 20 149/101 (117) 94 11/19/18 21:00 Room Air 11/19/18 20:00 115 11/19/18 20:00 98.2 115 20 152/100 (117) 93 11/19/18 16:00 97.5 110 18 145/80 (101) 98 11/19/18 16:00 107 Intake and Output 11/19/18 11/20/18 19:00 07:00 Intake Total 1500 ml 130 ml Output Total 1500 ml 350 ml Balance 0 ml -220 ml Intake Oral 480 ml 130 ml IV Total 1020 ml Output Urine Total 1400 ml 350 ml Emesis 100 ml # Bowel Movements 1 4 General Appearance: WD/WN HEENT: normocephalic, mucous membranes moist Respiratory/Chest: lungs clear, no respiratory distress Cardiovascular: normal peripheral pulses, regularly irregular Abdomen: normal bowel sounds, soft, non tender, no organomegaly Genitourinary: normal external genitalia 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 Complete 11/18/18 01:03 Rectum VRE Culture - Final NO VANCOMYCIN RESISTANT ENTEROCOCCUS ... Complete 11/18/18 01:03 Rectum - Final NO CARBAPENEM-RESISTANT ENTEROBACTERI... Complete Laboratory Tests 11/20/18 06:25: White Blood Count 13.5H, Red Blood Count 4.50L, Hemoglobin 14.4, Hematocrit 41.8L, Mean Corpuscular Volume 93, Mean Corpuscular Hemoglobin 31.9H, Mean Corpuscular Hemoglobin Concent 34.3, Red Cell Distribution Width 11.7, Platelet Count 214, Mean Platelet Volume 8.8, Neutrophils (%) (Auto) 72.2, Lymphocytes (% ) (Auto) 20.2, Monocytes (%) (Auto) 6.9, Eosinophils (%) (Auto) 0.2, Basophils ( %) (Auto) 0.5, Sodium Level 142, Potassium Level 3.3L, Chloride Level 109H, Carbon Dioxide Level 22, Anion Gap 12, Blood Urea Nitrogen 12, Creatinine 1.1, Estimat Glomerular Filtration Rate > 60, Glucose Level 128H, Hemoglobin A1c 5.3 , Lactic Acid Level 1.50, Uric Acid 2.6, Calcium Level 8.3L, Phosphorus Level 1.3L, Magnesium Level 1.9, Iron Level 45L, Total Iron Binding Capacity 263, Percent Iron Saturation 17, Unsaturated Iron Binding 218, Ferritin 107, Total Bilirubin 0.5, Gamma Glutamyl Transpeptidase 39, Aspartate Amino Transf (AST/ SGOT) 25, Alanine Aminotransferase (ALT/SGPT) 17, Alkaline Phosphatase 100, Ammonia 25, C-Reactive Protein, Quantitative 10.3H, Pro-B-Type Natriuretic Peptide 537H, Total Protein 8.0, Albumin 3.1L, Globulin 4.9, Albumin/Globulin Ratio 0.6L, Triglycerides Level 128, Cholesterol Level 131, LDL Cholesterol 69, HDL Cholesterol 43, Cholesterol/HDL Ratio 3.0L, Vitamin B12 Level 255, Folate 12.5, Thyroid Stimulating Hormone (TSH) 2.920 Current Medications Medications (Trade) Dose Ordered Sig/Roman Route PRN Reason Start Time Stop Time Status Last Admin Dose Admin Acetaminophen (Tylenol) 650 mg Q4H PRN ORAL fever 11/17/18 23:00 12/17/18 22:59 11/19/18 00:15 Albuterol/ Ipratropium (Albuterol/ Ipratropium) 3 ml Q4H PRN HHN Shortness of Breath 11/17/18 23:00 11/22/18 22:59 Baclofen (Lioresal) 10 mg THREE TIMES A DAY ORAL 11/18/18 09:00 12/18/18 08:59 11/20/18 08:28 Cefepime HCl 2 gm/ Dextrose 110 ml @ 220 mls/hr Q12HR@0300,1500 IV 11/18/18 03:00 11/25/18 02:59 11/20/18 03:26 Dextrose (Dextrose 50%) STAT PRN IV Hypoglycemia 11/17/18 23:00 12/17/18 22:59 Dextrose/ Electrolytes 1,000 ml @ 75 mls/hr [id number] IV 11/19/18 14:00 12/19/18 13:59 11/20/18 06:56 Diltiazem HCl (Cardizem) 60 mg EVERY 6 HOURS ORAL 11/20/18 12:00 12/20/18 11:59 Heparin Sodium (Porcine) (Heparin 5000 units/ml) 5,000 units EVERY 12 HOURS SUBQ 11/18/18 09:00 12/18/18 08:59 11/19/18 21:58 Iopamidol (Isovue-300 100ml) 100 ml NOW PRN INJ Radiology Procedure 11/17/18 19:15 11/20/18 19:14 Levothyroxine Sodium (Synthroid) 25 mcg DAILY@0630 ORAL 11/18/18 06:30 12/18/18 06:29 11/20/18 07:03 Metoprolol Tartrate (Lopressor) 5 mg Q4H PRN IVP HR >110 11/20/18 02:15 12/20/18 02:14 11/20/18 08:29 Metronidazole (Flagyl) 500 mg Q8HR ORAL 11/18/18 14:00 11/25/18 13:59 11/20/18 07:03 Mirtazapine (Remeron) 15 mg BEDTIME ORAL 11/18/18 21:00 12/18/18 20:59 11/19/18 21:57 Morphine Sulfate (Morphine Sulfate) 2 mg Q4H PRN IVP Moderate Pain (Pain Scale 4-6) 11/17/18 23:00 11/24/18 22:59 11/18/18 21:35 Nitroglycerin (Ntg) 0.4 mg Q5M PRN SL Prn Chest Pain 11/17/18 23:00 12/17/18 22:59 Ondansetron HCl (Zofran) 4 mg Q6H PRN IVP Nausea & Vomiting 11/17/18 23:00 12/17/18 22:59 11/20/18 08:34 Oxycodone/ Acetaminophen (Percocet 10/325) 1 tab Q4H PRN ORAL Severe Breakthru Pain (>7) 11/18/18 10:45 11/24/18 22:44 11/19/18 23:55 Paroxetine HCl (Paxil) 40 mg DAILY ORAL 11/18/18 09:00 12/18/18 08:59 11/20/18 08:28 Polyethylene Glycol (Miralax) 17 gm BEDTIME ORAL 11/19/18 21:00 12/19/18 20:59 11/19/18 21:57 Polyethylene Glycol (Miralax) 17 gm DAILYPRN PRN ORAL Constipation 11/17/18 23:00 12/17/18 22:59 Potassium Phosphate 30 mm/ Sodium Chloride 285 ml @ 47.5 mls/hr ONCE ONCE IV 11/20/18 11:00 11/20/18 16:59 11/20/18 11:55 Tamsulosin HCl (Flomax) 0.4 mg BID ORAL 11/19/18 18:00 12/18/18 20:59 Temazepam (Restoril) 15 mg HSPRN PRN ORAL Insomnia 11/17/18 23:00 11/24/18 22:59 Vancomycin HCl (Vanco rx to dose) 1 ea DAILY PRN MISC prn 11/17/18 23:45 12/17/18 23:44 Vancomycin HCl/ Dextrose 275 ml @ 183.333 mls/hr Q24H IVPB 11/19/18 01:00 11/24/18 00:59 11/20/18 01:11 Oliverio Rm MD November 20, 2018 12:38
[2018-11-20] MEDS: Loperamide 2mg cap ORAL PRN (12:42)
--- NOTE | 2018-11-20 13:08 | Diagnostic Imaging Report ---
Indication: Dyspnea Comparison: 11/17/2018 A single view chest radiograph was obtained. Findings: No definite infiltrate or pulmonary vascular congestion identified. The heart is enlarged. The aorta is mildly enlarged consistent with atherosclerotic vascular disease. The bones are osteopenic. Impression: No acute disease
--- NOTE | 2018-11-20 13:43 | Infectious Diseases Prog Note ---
Assessment/Plan Assessment/Plan Abx: IV Vancomycin 11/17- Zosyn x1 11/17 Cefepime 11/18- Assessment: Sepsis, unclear source- ?intraabdominal source- r/o bacteremia- ?kidney stone -CT abd/p w/: Mild right hydroureteronephrosis. An obstructing stone is not definitely seen.However there is a tiny punctate calcification about 1 mm probably within the right distal ureter.Mild to moderate stool. Cysts within the left kidney. Small umbilical hernia containing fat -u/a neg -Bcx NTD -CXR No acute disease Fever; improving Mild leukocytosis HARVINDER, improving ?Recent dx of Rectal CA at [facility]-obtain records hx of Cdiff 09/2018 - failed oral vancomycin; sp tx w/ Fidaxomicin --09/06 Cdiff toxin a/b +; repeat Cdiff neg x2 -09/06 SP Colonoscopy: proctitis -stool cx: normal thomas -Giardia ag, cryptosporidium neg Hx of UTI 08/2018 -u/a wbc 10-15, shirley neg, leuk +3; ucx >100K PROTEUS MIRABILIS ( I Levo; R Amp, bactrim, Cipro, Nitro; S Ceftriaxone) HIV/AIDS- on ARV -11/19 CD4 392 (17.4%) -09/2018 182 (10.1%), VL UD -11/2017 CD4 323 hx of rectal CA CVA 2004 HTN Plan: -Continue empiric IV Vancomycin #4, Cefepime #3 (abx d #4) and add Flagyl #3 for anaerobic coverage pending cultures -09/23 SP Fidaxomicin #10 -09/13/18 SP PO Vancomycin #8 -f/u cx -Monitor CBC/CMP, temperatures -aspiration precautions -will clarify regimen w/ Dr Hannah Trinh (His HIV provider) [phone]- prior to resuming ARV as there is confusion as of what medicines patient is currently taking- -called Dr Trinh's office- awaiting for call back -Cdif if diarrhea -REnal US -CBC, CMP, amylase, lipase am Thank you for this consultation. Will continue to follow along with you. Discussed with RN. Subjective Allergies: Coded Allergies: CODEINE (Unverified Allergy, Unknown, 11/28/17) EMTRICITABINE (Verified Allergy, Unknown, anxiousness, 08/31/18) SULFAMETHOXAZOLE (Unverified Allergy, Unknown, 10/27/17) TENOFOVIR (Verified Allergy, Unknown, anxiousness, 08/31/18) TRIMETHOPRIM (Unverified Allergy, Unknown, 10/27/17) Subjective afebrile >36hrs mild leukocytosis Bcx NTD Objective Vital Signs Last 24 Hour Vital Signs Date Time Temp Pulse Resp B/P (MAP) Pulse Ox O2 Delivery O2 Flow Rate FiO2 11/20/18 12:33 97 122/87 11/20/18 12:00 95 11/20/18 12:00 97.3 97 20 122/77 (92) 96 11/20/18 09:00 Room Air 11/20/18 08:29 111 132/72 11/20/18 08:27 111 132/72 11/20/18 08:00 112 11/20/18 08:00 99.0 115 20 132/84 (100) 97 11/20/18 07:40 107 16 Room Air 21 11/20/18 04:00 98 11/20/18 04:00 97.9 98 20 145/94 (111) 94 11/20/18 02:37 120 152/97 11/20/18 01:50 98 16 Room Air 21 11/20/18 00:00 116 11/20/18 00:00 98.4 116 20 149/101 (117) 94 11/19/18 21:00 Room Air 11/19/18 20:00 115 11/19/18 20:00 98.2 115 20 152/100 (117) 93 11/19/18 16:00 97.5 110 18 145/80 (101) 98 11/19/18 16:00 107 Height (Feet): 5 Height (Inches): 5.00 Weight (Pounds): 155 Objective Abx: IV Vancomycin 11/17- Zosyn x1 11/17 Cefepime 11/18- Assessment: Sepsis- ?intraabdominal source- r/o bacteremia, PNA- ?kidney stone -CT abd/p w/: Mild right hydroureteronephrosis. An obstructing stone is not definitely seen.However there is a tiny punctate calcification about 1 mm probably within the right distal ureter.Mild to moderate stool. Cysts within the left kidney. Small umbilical hernia containing fat -u/a neg -Bcx p -CXR p Fever No leukocytosis HARVINDER, improving ?Recent dx of Rectal CA at [facility]-obtain records hx of Cdiff 09/2018 - failed oral vancomycin; sp tx w/ Fidaxomicin --09/06 Cdiff toxin a/b +; repeat Cdiff neg x2 -09/06 SP Colonoscopy: proctitis -stool cx: normal thomas -Giardia ag, cryptosporidium neg Hx of UTI 08/2018 -u/a wbc 10-15, shirley neg, leuk +3; ucx >100K PROTEUS MIRABILIS ( I Levo; R Amp, bactrim, Cipro, Nitro; S Ceftriaxone) HIV/AIDS- on ARV -09/2018 182 (10.1%), VL UD -11/2017 CD4 323 hx of rectal CA CVA 2004 HTN Plan: -Continue empiric IV Vancomycin #2, Cefepime #1 (abx d #2) and add Flagyl for anaerobic coverage pending cultures -09/23 SP Fidaxomicin #10 -09/13/18 SP PO Vancomycin #8 -f/u cx -Monitor CBC/CMP, temperatures -aspiration precautions -continue ARV- will clarify regimen w/ Dr Hannah Trinh (His HIV provider) [phone]- prior to resuming ARV as there is confusion as of what medicines patient is currently taking -CD4 am Thank you for this consultation. Will continue to follow along with you. Discussed with RN. Microbiology Date/Time Source Procedure Growth Status 11/17/18 19:15 Blood Blood Culture - Preliminary NO GROWTH AFTER 48 HOURS Resulted 11/17/18 19:00 Blood Blood Culture - Preliminary NO GROWTH AFTER 48 HOURS Resulted 11/18/18 01:03 Nasal Nares MRSA Culture - Final NO METHICILLIN RESISTANT STAPH AUREUS... Complete 11/18/18 01:03 Rectum VRE Culture - Final NO VANCOMYCIN RESISTANT ENTEROCOCCUS ... Complete 11/18/18 01:03 Rectum - Final NO CARBAPENEM-RESISTANT ENTEROBACTERI... Complete Laboratory Tests Test 11/20/18 06:25 White Blood Count 13.5 K/UL (4.8-10.8) H Red Blood Count 4.50 M/UL (4.70-6.10) L Hemoglobin 14.4 G/DL (14.2-18.0) Hematocrit 41.8 % (42.0-52.0) L Mean Corpuscular Volume 93 FL (80-99) Mean Corpuscular Hemoglobin 31.9 PG (27.0-31.0) H Mean Corpuscular Hemoglobin Concent 34.3 G/DL (32.0-36.0) Red Cell Distribution Width 11.7 % (11.6-14.8) Platelet Count 214 K/UL (150-450) Mean Platelet Volume 8.8 FL (6.5-10.1) Neutrophils (%) (Auto) 72.2 % (45.0-75.0) Lymphocytes (%) (Auto) 20.2 % (20.0-45.0) Monocytes (%) (Auto) 6.9 % (1.0-10.0) Eosinophils (%) (Auto) 0.2 % (0.0-3.0) Basophils (%) (Auto) 0.5 % (0.0-2.0) Sodium Level 142 MMOL/L (136-145) Potassium Level 3.3 MMOL/L (3.5-5.1) L Chloride Level 109 MMOL/L (98-107) H Carbon Dioxide Level 22 MMOL/L (21-32) Anion Gap 12 mmol/L (5-15) Blood Urea Nitrogen 12 mg/dL (7-18) Creatinine 1.1 MG/DL (0.55-1.30) Estimat Glomerular Filtration Rate > 60 mL/min (>60) Glucose Level 128 MG/DL (74-106) H Hemoglobin A1c 5.3 % (4.3-6.0) Lactic Acid Level 1.50 mmol/L (0.4-2.0) Uric Acid 2.6 MG/DL (2.6-7.2) Calcium Level 8.3 MG/DL (8.5-10.1) L Phosphorus Level 1.3 MG/DL (2.5-4.9) L Magnesium Level 1.9 MG/DL (1.8-2.4) Iron Level 45 ug/dL (50-175) L Total Iron Binding Capacity 263 ug/dL (250-450) Percent Iron Saturation 17 % (15-50) Unsaturated Iron Binding 218 ug/dL (112-346) Ferritin 107 NG/ML (8-388) Total Bilirubin 0.5 MG/DL (0.2-1.0) Gamma Glutamyl Transpeptidase 39 U/L (5-85) Aspartate Amino Transf (AST/SGOT) 25 U/L (15-37) Alanine Aminotransferase (ALT/SGPT) 17 U/L (12-78) Alkaline Phosphatase 100 U/L (46-116) Ammonia 25 umol/L (11-32) C-Reactive Protein, Quantitative 10.3 mg/dL (0.00-0.90) H Pro-B-Type Natriuretic Peptide 537 pg/mL (0-125) H Total Protein 8.0 G/DL (6.4-8.2) Albumin 3.1 G/DL (3.4-5.0) L Globulin 4.9 g/dL Albumin/Globulin Ratio 0.6 (1.0-2.7) L Triglycerides Level 128 MG/DL (30-150) Cholesterol Level 131 MG/DL (< 200) LDL Cholesterol 69 mg/dL (<100) HDL Cholesterol 43 MG/DL (40-60) Cholesterol/HDL Ratio 3.0 (3.3-4.4) L Vitamin B12 Level 255 PG/ML (193-986) Folate 12.5 NG/ML (8.6-58.9) Thyroid Stimulating Hormone (TSH) 2.920 uiU/mL (0.358-3.740) Current Medications Medications (Trade) Dose Ordered Sig/Roman Route PRN Reason Start Time Stop Time Status Last Admin Dose Admin Acetaminophen (Tylenol) 650 mg Q4H PRN ORAL fever 11/17/18 23:00 12/17/18 22:59 11/19/18 00:15 Albuterol/ Ipratropium (Albuterol/ Ipratropium) 3 ml Q4H PRN HHN Shortness of Breath 11/17/18 23:00 11/22/18 22:59 Baclofen (Lioresal) 10 mg THREE TIMES A DAY ORAL 11/18/18 09:00 12/18/18 08:59 11/20/18 12:32 Cefepime HCl 2 gm/ Dextrose 110 ml @ 220 mls/hr Q12HR@0300,1500 IV 11/18/18 03:00 11/25/18 02:59 11/20/18 03:26 Dextrose (Dextrose 50%) STAT PRN IV Hypoglycemia 11/17/18 23:00 12/17/18 22:59 Dextrose/ Electrolytes 1,000 ml @ 75 mls/hr [id number] IV 11/19/18 14:00 12/19/18 13:59 11/20/18 06:56 Diltiazem HCl (Cardizem) 60 mg EVERY 6 HOURS ORAL 11/20/18 12:00 12/20/18 11:59 11/20/18 12:33 Heparin Sodium (Porcine) (Heparin 5000 units/ml) 5,000 units EVERY 12 HOURS SUBQ 11/18/18 09:00 12/18/18 08:59 11/19/18 21:58 Iopamidol (Isovue-300 100ml) 100 ml NOW PRN INJ Radiology Procedure 11/17/18 19:15 11/20/18 19:14 Levothyroxine Sodium (Synthroid) 25 mcg DAILY@0630 ORAL 11/18/18 06:30 12/18/18 06:29 11/20/18 07:03 Loperamide HCl (Imodium) 2 mg Q6H PRN ORAL Diarrhea 11/20/18 12:30 12/20/18 12:29 11/20/18 12:42 Metoprolol Tartrate (Lopressor) 5 mg Q4H PRN IVP HR >110 11/20/18 02:15 12/20/18 02:14 11/20/18 08:29 Metronidazole (Flagyl) 500 mg Q8HR ORAL 11/18/18 14:00 11/25/18 13:59 11/20/18 07:03 Mirtazapine (Remeron) 15 mg BEDTIME ORAL 11/18/18 21:00 12/18/18 20:59 11/19/18 21:57 Morphine Sulfate (Morphine Sulfate) 2 mg Q4H PRN IVP Moderate Pain (Pain Scale 4-6) 11/17/18 23:00 11/24/18 22:59 11/18/18 21:35 Ondansetron HCl (Zofran) 4 mg Q6H PRN IVP Nausea & Vomiting 11/17/18 23:00 12/17/18 22:59 11/20/18 08:34 Oxycodone/ Acetaminophen (Percocet 10/325) 1 tab Q4H PRN ORAL Severe Breakthru Pain (>7) 11/18/18 10:45 11/24/18 22:44 11/19/18 23:55 Paroxetine HCl (Paxil) 40 mg DAILY ORAL 11/18/18 09:00 12/18/18 08:59 11/20/18 08:28 Potassium Phosphate 30 mm/ Sodium Chloride 285 ml @ 47.5 mls/hr ONCE ONCE IV 11/20/18 11:00 11/20/18 16:59 11/20/18 11:55 Tamsulosin HCl (Flomax) 0.4 mg BID ORAL 11/19/18 18:00 12/18/18 20:59 Temazepam (Restoril) 15 mg HSPRN PRN ORAL Insomnia 11/17/18 23:00 11/24/18 22:59 Vancomycin HCl (Vanco rx to dose) 1 ea DAILY PRN MISC prn 11/17/18 23:45 12/17/18 23:44 Vancomycin HCl/ Dextrose 275 ml @ 183.333 mls/hr Q24H IVPB 11/19/18 01:00 11/24/18 00:59 11/20/18 01:11 Miranda Cordero M.D. November 20, 2018 13:43
--- NOTE | 2018-11-20 14:40 | Nephrology Progress Note ---
Assessment/Plan Problem List: (1) Sepsis (2) Fecal impaction (3) Hypokalemia (4) Hypothyroidism (5) HIV (human immunodeficiency virus infection) (6) Anemia Assessment Sepsis Possible PNA Acute kidney injury, possibly due to mild hydroureteronephrosis seen on CT scan -resolved Rectal CA, recently diagnosed HIV/AIDS Fecal retention History of CVA Hypertension Hypothyroidism Depression Hypokalemia Anemia Plan Plan: K , Phos supplement stool softner Reglan Gastric support Monitor lytes per orders Objective Objective Last 24 Hour Vital Signs Date Time Temp Pulse Resp B/P (MAP) Pulse Ox O2 Delivery O2 Flow Rate FiO2 11/20/18 12:33 97 122/87 11/20/18 12:00 95 11/20/18 12:00 97.3 97 20 122/77 (92) 96 11/20/18 09:00 Room Air 11/20/18 08:29 111 132/72 11/20/18 08:27 111 132/72 11/20/18 08:00 112 11/20/18 08:00 99.0 115 20 132/84 (100) 97 11/20/18 07:40 107 16 Room Air 21 11/20/18 04:00 98 11/20/18 04:00 97.9 98 20 145/94 (111) 94 11/20/18 02:37 120 152/97 11/20/18 01:50 98 16 Room Air 21 11/20/18 00:00 116 11/20/18 00:00 98.4 116 20 149/101 (117) 94 11/19/18 21:00 Room Air 11/19/18 20:00 115 11/19/18 20:00 98.2 115 20 152/100 (117) 93 11/19/18 16:00 97.5 110 18 145/80 (101) 98 11/19/18 16:00 107 Intake and Output 11/19/18 11/20/18 19:00 07:00 Intake Total 1500 ml 130 ml Output Total 1500 ml 350 ml Balance 0 ml -220 ml Intake Oral 480 ml 130 ml IV Total 1020 ml Output Urine Total 1400 ml 350 ml Emesis 100 ml # Bowel Movements 1 4 Laboratory Tests 11/20/18 06:25: White Blood Count 13.5H, Red Blood Count 4.50L, Hemoglobin 14.4, Hematocrit 41.8L, Mean Corpuscular Volume 93, Mean Corpuscular Hemoglobin 31.9H, Mean Corpuscular Hemoglobin Concent 34.3, Red Cell Distribution Width 11.7, Platelet Count 214, Mean Platelet Volume 8.8, Neutrophils (%) (Auto) 72.2, Lymphocytes (% ) (Auto) 20.2, Monocytes (%) (Auto) 6.9, Eosinophils (%) (Auto) 0.2, Basophils ( %) (Auto) 0.5, Sodium Level 142, Potassium Level 3.3L, Chloride Level 109H, Carbon Dioxide Level 22, Anion Gap 12, Blood Urea Nitrogen 12, Creatinine 1.1, Estimat Glomerular Filtration Rate > 60, Glucose Level 128H, Hemoglobin A1c 5.3 , Lactic Acid Level 1.50, Uric Acid 2.6, Calcium Level 8.3L, Phosphorus Level 1.3L, Magnesium Level 1.9, Iron Level 45L, Total Iron Binding Capacity 263, Percent Iron Saturation 17, Unsaturated Iron Binding 218, Ferritin 107, Total Bilirubin 0.5, Gamma Glutamyl Transpeptidase 39, Aspartate Amino Transf (AST/ SGOT) 25, Alanine Aminotransferase (ALT/SGPT) 17, Alkaline Phosphatase 100, Ammonia 25, C-Reactive Protein, Quantitative 10.3H, Pro-B-Type Natriuretic Peptide 537H, Total Protein 8.0, Albumin 3.1L, Globulin 4.9, Albumin/Globulin Ratio 0.6L, Triglycerides Level 128, Cholesterol Level 131, LDL Cholesterol 69, HDL Cholesterol 43, Cholesterol/HDL Ratio 3.0L, Vitamin B12 Level 255, Folate 12.5, Thyroid Stimulating Hormone (TSH) 2.920 Height (Feet): 5 Height (Inches): 5.00 Weight (Pounds): 155 Hayden Andres MD November 20, 2018 14:40
[2018-11-20] MEDS ORDERED: Tubing IV Secondary IV ONE (15:24)
[2018-11-20] MEDS ORDERED: NS 275ml ONE (15:24)
[2018-11-20 16:00] VITALS: BP 110/82
--- NOTE | 2018-11-20 16:22 | Diagnostic Imaging Report ---
Indication:Elevated Bun and Creatinine. Technique: Grayscale and duplex Doppler imaging of the kidneys performed. Comparison: None Findings: There is no hydronephrosis appreciated. We note that a recent CT 11/17/2018 showed right hydronephrosis. This is no longer appreciated. There is a 6 mm calcification right of midline posterior and lateral to the urinary bladder. The calcification is nonspecific and not likely to be within the ureter since there is no hydronephrosis. In addition there is a ureteral jet present on the right indicating the ureter orifice is open. The bladder is mildly distended. Left ureteral jet also noted. There are multiple cysts within the left kidney. The left kidney measures 11.6 cm in length. The right kidney measures 9.5 cm in length. IMPRESSION: Interval resolution of right hydronephrosis compared to CT from 11/17/2018. 6 mm calcification posterior and lateral to the bladder right of midline. This is likely a phlebolith given presence of a right ureteral jet and absence of hydronephrosis. Multiple cysts within the left kidney
--- NOTE | 2018-11-20 16:33 | NUR ---
CASE MANAGEMENT:REVIEW 11/20/18 SI: SEPSIS 99.0 115 20 132/84 97% ON RA WBC+13.5 K-3.3 PHOS-1.3 IS: IV K PHOS X1 CARDIZEM PO Q6HRS IV LOPRESSOR Q4HRS PRN GIVEN X2 TODAY FLOMAX PO BID IVF@75/HR IV VANCOMYCIN Q24 IV CEFEPIME Q12 HEPARIN SQ Q12 : TELEMETRY
--- NOTE | 2018-11-20 17:00 | Consultation ---
DATE OF CONSULTATION: 11/20/2018 CARDIOLOGY CONSULTATION: CONSULTING PHYSICIAN: Abel Mendez M.D. REFERRING PHYSICIAN: Carlos Barragan M.D. REASON FOR CONSULTATION: Recurrent supraventricular tachycardia. HISTORY OF PRESENT ILLNESS: The patient is a 68-year-old gentleman who was brought in by paramedics for increased left-sided abdominal pain of 2 days duration. The patient had recent rectal biopsy positive for cancer at [facility]. The patient is HIV positive. CD4 count and viral load recently was performed. The patient was admitted to telemetry and he had had multiple episodes of supraventricular tachycardia for which he got metoprolol IV several times. This is despite that he is also on metoprolol standing dose. At the time of my evaluation, the patient denies any chest pain or palpitation or shortness of breath. REVIEW OF SYSTEMS: Negative other than what was mentioned in the history of present illness. PAST MEDICAL HISTORY: As mentioned above. FAMILY HISTORY: Noncontributory. SOCIAL HISTORY: He denies smoke or drink alcohol. PHYSICAL EXAMINATION: VITAL SIGNS: Blood pressure 130/70, pulse is 70, respirations 18. HEAD AND NECK: Showed no JVD. LUNGS: Clear. CARDIOVASCULAR: Regular S1 and S2 with no gallop or murmur. ABDOMEN: Soft. EXTREMITIES: No pitting edema. LABORATORY AND DIAGNOSTIC DATA: His telemetry strip showed supraventricular tachycardia of sudden onset and sudden termination. Rate of 170 beats per minute. His 12-lead EKG however shows sinus rhythm with no evidence of pre-excitation. His labs show white count of 13.5, hematocrit of 14.4, hematocrit 41.8, and platelet count of 214. Sodium 142, potassium 3.3, BUN of 12, creatinine 1.1, and glucose of 128. Uric acid is 2.6. BNP is 537. ASSESSMENT AND PLAN: 1. Recurrent episodes of supraventricular tachycardia. His echocardiogram showed EF of 60%. After stabilization, the patient would benefit from electrophysiology study and hopefully elimination of this arrhythmia focus. It is of note that the patient received multiple doses of IV metoprolol to suppress the arrhythmia. 2. Hypertension. Change amlodipine to Cardizem that would halt the present arrhythmia. 3. HIV and AIDS. 4. Sepsis, on IV antibiotic. 5. Rectal bleeding. Further evaluation by Dr. Germain due to rectal cancer. 6. Abdominal pain. Thank you very much, Dr. Barragan, for allowing me to participate in the care of this patient. Please do not hesitate to contact me for any questions regarding my evaluation. Abel Mendez M.D. DR: SAUL JOB#: [id number] CC:
--- NOTE | 2018-11-20 17:00 | NUR ---
NURSE NOTES: Marianna Garrett of pharmacy regarding patient's HIV medications and patient's pharmacy of [facility], . Tami acknowledged and per Tami will follow up with Dr. Cordero regarding HIV medications. Endorsed accordingly. Will continue to monitor patient.
--- NOTE | 2018-11-20 19:04 | Internal Med Progress Note ---
Subjective Date of Service: November 20, 2018 Physician Name Trey Whitaker Attending Physician Carlos Barragan MD Current Medications Medications (Trade) Dose Ordered Sig/Roman Route PRN Reason Start Time Stop Time Status Last Admin Dose Admin Acetaminophen (Tylenol) 650 mg Q4H PRN ORAL fever 11/17/18 23:00 12/17/18 22:59 11/19/18 00:15 Albuterol/ Ipratropium (Albuterol/ Ipratropium) 3 ml Q4H PRN HHN Shortness of Breath 11/17/18 23:00 11/22/18 22:59 Baclofen (Lioresal) 10 mg THREE TIMES A DAY ORAL 11/18/18 09:00 12/18/18 08:59 11/20/18 17:31 Cefepime HCl 2 gm/ Dextrose 110 ml @ 220 mls/hr Q12HR@0300,1500 IV 11/18/18 03:00 11/25/18 02:59 11/20/18 14:21 Dextrose (Dextrose 50%) STAT PRN IV Hypoglycemia 11/17/18 23:00 12/17/18 22:59 Dextrose/ Electrolytes 1,000 ml @ 75 mls/hr [id number] IV 11/19/18 14:00 12/19/18 13:59 11/20/18 17:32 Diltiazem HCl (Cardizem) 60 mg EVERY 6 HOURS ORAL 11/20/18 12:00 12/20/18 11:59 11/20/18 17:31 Heparin Sodium (Porcine) (Heparin 5000 units/ml) 5,000 units EVERY 12 HOURS SUBQ 11/18/18 09:00 12/18/18 08:59 11/19/18 21:58 Iopamidol (Isovue-300 100ml) 100 ml NOW PRN INJ Radiology Procedure 11/17/18 19:15 11/20/18 19:14 Levothyroxine Sodium (Synthroid) 25 mcg DAILY@0630 ORAL 11/18/18 06:30 12/18/18 06:29 11/20/18 07:03 Loperamide HCl (Imodium) 2 mg Q6H PRN ORAL Diarrhea 11/20/18 12:30 12/20/18 12:29 11/20/18 12:42 Metoprolol Tartrate (Lopressor) 5 mg Q4H PRN IVP HR >110 11/20/18 02:15 12/20/18 02:14 11/20/18 08:29 Metronidazole (Flagyl) 500 mg Q8HR ORAL 11/18/18 14:00 11/25/18 13:59 11/20/18 14:21 Mirtazapine (Remeron) 15 mg BEDTIME ORAL 11/18/18 21:00 12/18/18 20:59 11/19/18 21:57 Morphine Sulfate (Morphine Sulfate) 2 mg Q4H PRN IVP Moderate Pain (Pain Scale 4-6) 11/17/18 23:00 11/24/18 22:59 11/18/18 21:35 Ondansetron HCl (Zofran) 4 mg Q6H PRN IVP Nausea & Vomiting 11/17/18 23:00 12/17/18 22:59 11/20/18 08:34 Oxycodone/ Acetaminophen (Percocet 10/325) 1 tab Q4H PRN ORAL Severe Breakthru Pain (>7) 11/18/18 10:45 11/24/18 22:44 11/19/18 23:55 Paroxetine HCl (Paxil) 40 mg DAILY ORAL 11/18/18 09:00 12/18/18 08:59 11/20/18 08:28 Tamsulosin HCl (Flomax) 0.4 mg BID ORAL 11/19/18 18:00 12/18/18 20:59 Temazepam (Restoril) 15 mg HSPRN PRN ORAL Insomnia 11/17/18 23:00 11/24/18 22:59 Vancomycin HCl (Vanco rx to dose) 1 ea DAILY PRN MISC prn 11/17/18 23:45 12/17/18 23:44 Vancomycin HCl/ Dextrose 275 ml @ 183.333 mls/hr Q24H IVPB 11/19/18 01:00 11/24/18 00:59 11/20/18 01:11 Allergies: Coded Allergies: CODEINE (Unverified Allergy, Unknown, 11/28/17) EMTRICITABINE (Verified Allergy, Unknown, anxiousness, 08/31/18) SULFAMETHOXAZOLE (Unverified Allergy, Unknown, 10/27/17) TENOFOVIR (Verified Allergy, Unknown, anxiousness, 08/31/18) TRIMETHOPRIM (Unverified Allergy, Unknown, 10/27/17) ROS Limited/Unobtainable: No Constitutional: Reports: no symptoms HEENT: Reports: no symptoms Cardiovascular: Reports: no symptoms Respiratory: Reports: no symptoms Gastrointestinal/Abdominal: Reports: no symptoms Genitourinary: Reports: no symptoms 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: Reports: no symptoms Subjective 68 YO M admitted with constipation rectal bleeding. Cover for Int Arun-Dr Barragan Objective Last Vital Signs Date Time Temp Pulse Resp B/P (MAP) Pulse Ox O2 Delivery O2 Flow Rate FiO2 11/20/18 17:31 91 132/93 11/20/18 16:00 97.9 20 95 11/20/18 09:00 Room Air 11/20/18 07:40 21 Laboratory Tests Test 11/20/18 06:25 White Blood Count 13.5 K/UL (4.8-10.8) H Red Blood Count 4.50 M/UL (4.70-6.10) L Hemoglobin 14.4 G/DL (14.2-18.0) Hematocrit 41.8 % (42.0-52.0) L Mean Corpuscular Volume 93 FL (80-99) Mean Corpuscular Hemoglobin 31.9 PG (27.0-31.0) H Mean Corpuscular Hemoglobin Concent 34.3 G/DL (32.0-36.0) Red Cell Distribution Width 11.7 % (11.6-14.8) Platelet Count 214 K/UL (150-450) Mean Platelet Volume 8.8 FL (6.5-10.1) Neutrophils (%) (Auto) 72.2 % (45.0-75.0) Lymphocytes (%) (Auto) 20.2 % (20.0-45.0) Monocytes (%) (Auto) 6.9 % (1.0-10.0) Eosinophils (%) (Auto) 0.2 % (0.0-3.0) Basophils (%) (Auto) 0.5 % (0.0-2.0) Sodium Level 142 MMOL/L (136-145) Potassium Level 3.3 MMOL/L (3.5-5.1) L Chloride Level 109 MMOL/L (98-107) H Carbon Dioxide Level 22 MMOL/L (21-32) Anion Gap 12 mmol/L (5-15) Blood Urea Nitrogen 12 mg/dL (7-18) Creatinine 1.1 MG/DL (0.55-1.30) Estimat Glomerular Filtration Rate > 60 mL/min (>60) Glucose Level 128 MG/DL (74-106) H Hemoglobin A1c 5.3 % (4.3-6.0) Lactic Acid Level 1.50 mmol/L (0.4-2.0) Uric Acid 2.6 MG/DL (2.6-7.2) Calcium Level 8.3 MG/DL (8.5-10.1) L Phosphorus Level 1.3 MG/DL (2.5-4.9) L Magnesium Level 1.9 MG/DL (1.8-2.4) Iron Level 45 ug/dL (50-175) L Total Iron Binding Capacity 263 ug/dL (250-450) Percent Iron Saturation 17 % (15-50) Unsaturated Iron Binding 218 ug/dL (112-346) Ferritin 107 NG/ML (8-388) Total Bilirubin 0.5 MG/DL (0.2-1.0) Gamma Glutamyl Transpeptidase 39 U/L (5-85) Aspartate Amino Transf (AST/SGOT) 25 U/L (15-37) Alanine Aminotransferase (ALT/SGPT) 17 U/L (12-78) Alkaline Phosphatase 100 U/L (46-116) Ammonia 25 umol/L (11-32) C-Reactive Protein, Quantitative 10.3 mg/dL (0.00-0.90) H Pro-B-Type Natriuretic Peptide 537 pg/mL (0-125) H Total Protein 8.0 G/DL (6.4-8.2) Albumin 3.1 G/DL (3.4-5.0) L Globulin 4.9 g/dL Albumin/Globulin Ratio 0.6 (1.0-2.7) L Triglycerides Level 128 MG/DL (30-150) Cholesterol Level 131 MG/DL (< 200) LDL Cholesterol 69 mg/dL (<100) HDL Cholesterol 43 MG/DL (40-60) Cholesterol/HDL Ratio 3.0 (3.3-4.4) L Vitamin B12 Level 255 PG/ML (193-986) Folate 12.5 NG/ML (8.6-58.9) Thyroid Stimulating Hormone (TSH) 2.920 uiU/mL (0.358-3.740) Microbiology Date/Time Source Procedure Growth Status 11/17/18 19:15 Blood Blood Culture - Preliminary NO GROWTH AFTER 48 HOURS Resulted 11/18/18 01:03 Nasal Nares MRSA Culture - Final NO METHICILLIN RESISTANT STAPH AUREUS... Complete 11/18/18 01:03 Rectum VRE Culture - Final NO VANCOMYCIN RESISTANT ENTEROCOCCUS ... Complete 11/18/18 01:03 Rectum - Final NO CARBAPENEM-RESISTANT ENTEROBACTERI... Complete Intake and Output 11/19/18 11/20/18 18:59 06:59 Intake Total 1500 ml 130 ml Output Total 1500 ml 350 ml Balance 0 ml -220 ml Intake Oral 480 ml 130 ml IV Total 1020 ml Output Urine Total 1400 ml 350 ml Emesis 100 ml # Bowel Movements 1 4 Objective PHYSICAL EXAMINATION: GENERAL: The patient is a well-developed and well-nourished white male, in no apparent distress. HEENT: Eyes, pupils equal and responsive to light and accommodation. Extraocular movements are intact. NECK: Supple without lymphadenopathy. CHEST: Lungs are clear to auscultation bilaterally without wheezes or rales. CARDIOVASCULAR: Regular rhythm and rate. S1 and S2 are normal without murmurs, rubs, or gallops. ABDOMEN: Soft, nontender, and nondistended. Positive bowel sounds. No evidence of hepatosplenomegaly. Currently, no rebound or guarding noted. EXTREMITIES: Negative for clubbing, cyanosis, or edema. RECTAL/GENITAL: Refused. NEUROLOGIC: Cranial nerves II through XII are grossly intact without focal deficits. Motor strength is 5/5 bilaterally. Deep tendon reflexes are 2+ plantar. Assessment/Plan Assessment/Plan ASSESSMENT: This is a 68-year-old white male. 1. Left abdominal pain. 2. Constipation. 3. Rectal bleeding. 4. Left hydronephrosis. 5. Hypertension. 6. HIV. 7. Hypothyroidism. 8. History of rectal cancer. 9. Cerebrovascular disease. 10. Major depression. 11. Anxiety. 12. Benign prostatic hypertrophy. 13. Paroxysmal supraventricular tachycardia TREATMENT: 1. Constipation/abdominal pain/rectal hemorrhage. Gastroenterology consultation with Dr. Dejan Germain. We will follow recommendation of Gastroenterology. 2. Right hydronephrosis. There is no definite stone seen. The patient may have passed a renal calculus. 3. Hypertension. Continue metoprolol and amlodipine as above. 4. HIV. Continue HAART per Infectious Disease. 5. Hypothyroidism. Continue Levoxyl as above. 6. History of rectal cancer. The patient is status post biopsy at [facility]. 7. Cerebrovascular disease. 8. Major depression. Continue Paxil as above. 9. Anxiety. 10. Benign prostatic hypertrophy. Continue Flomax and oxybutynin as above. 11. Await cardiology consult Trey Whitaker MD November 20, 2018 19:04
--- NOTE | 2018-11-20 19:29 | NUR ---
HAND-OFF: Report given to CHARLEY Gómez.
--- NOTE | 2018-11-20 19:30 | NUR ---
NURSE NOTES: Recieved pt from CHARLEY Nava. Pt is awake and resting in bed with HOB elevated. Pt in no acute distress, tolerating room air. IV sites are intact and patent. Bed in lowest position and call light within reach. Will continue to monitor.
--- NOTE | 2018-11-20 19:39 | Cardiology Report ---
APPROVED REPORT EKG Measurement Heart [id number] [place] [id number] Sinus tachycardia with 1st degree AV block Left axis deviation Right bundle branch block Abnormal ECG
[2018-11-20 20:00] VITALS: BP 136/76
--- NOTE | 2018-11-20 20:03 | Cardiology Report ---
APPROVED REPORT EXAM: Two-dimensional and M-mode echocardiogram with Doppler and color Doppler. INDICATION Tachycardia M-Mode DIMENSIONS IVSd1.2 (0.7-1.1cm)Left Atrium (MM)4.0 (1.6-4.0cm) LVDd4.8 (3.5-5.6cm)Aortic Root3.0 (2.0-3.7cm) PWd1.0 (0.7-1.1cm)Aortic Cusp Exc.1.7 (1.5-2.0cm) LVDs3.4 (2.5-4.0cm) PWs1.6 cm Technically difficult study due to poor acoustic windows. Study quality precludes accurate assessment of regional wall motion. Normal left ventricular chamber size, systolic function and wall motion. Left ventricular ejection fraction estimated to be 60 %. Mild left ventricular hypertrophy. Anterior Echo-free space, may be due to pericardial fat or effusion. All other cardiac chamber sizes are within normal limits. Mild focal aortic valve sclerosis with adequate cusp excursion. Thickened mitral valve leaflets with normal excursion. Mild mitral annulus and aortic root calcification. Pulmonic valve not well visualized. Normal tricuspid valve structure. Subcostal views not obtainable. A color flow and spectral Doppler study was performed and revealed: Mild aortic insufficiency. No mitral regurgitation. Mitral diastolic velocities suggest mild left ventricular diastolic dysfunction (Grade I). Trace tricuspid regurgitation. Tricuspid systolic velocities suggests peak right ventricular systolic pressure of 19 mmHg.
[2018-11-21] VITALS: BP 142/84
[2018-11-21] MEDS: dilTIAZem HCl 60mg tab ORAL SCH ×5 (00:03→23:46)
[2018-11-21] MEDS: Vancomycin 1.25gm Premix IVPB SCH (01:09)
[2018-11-21] MEDS: Cefepime HCl 2 GM in D5W 110 ML IV SCH ×2 (03:07→14:37)
[2018-11-21 04:00] VITALS: BP 149/89
[2018-11-21 05:37] LABS: BASOPHILS % (AUTO) 0.4 % (0.0-2.0); EOSINOPHILS % (AUTO) 0.8 % (0.0-3.0); HEMATOCRIT 40.3 % (42.0-52.0); HEMOGLOBIN 13.8 G/DL (14.2-18.0); MEAN CORPUSCULAR VOLUME 94 FL (80-99); MONOCYTES % (AUTO) 5.6 % (1.0-10.0); NEUTROPHILS % (AUTO) 69.2 % (45.0-75.0); PLATELET COUNT 248 K/UL (150-450); RED CELL DISTRIBUTION WIDTH 11.6 % (11.6-14.8); WHITE BLOOD COUNT 14.2 K/UL (4.8-10.8)
[2018-11-21] MEDS: Levothyroxine 25mcg tab ORAL SCH (05:50)
[2018-11-21] MEDS: metroNIDAZOLE 500mg tab ORAL SCH ×3 (05:50→21:05)
[2018-11-21 05:54] LABS: ANION GAP 14 mmol/L (5-15); BLOOD UREA NITROGEN 16 mg/dL (7-18); CALCIUM 8.2 MG/DL (8.5-10.1); CARBON DIOXIDE 19 MMOL/L (21-32); CHLORIDE 110 MMOL/L (98-107); CREATININE 1.1 MG/DL (0.55-1.30); PHOSPHORUS 1.6 MG/DL (2.5-4.9); POTASSIUM 3.7 MMOL/L (3.5-5.1); SODIUM 143 MMOL/L (136-145)
[2018-11-21 05:59] LABS: ALANINE AMINOTRANSFERASE 22 U/L (12-78); ALBUMIN 2.3 G/DL (3.4-5.0); ALKALINE PHOSPHATASE 97 U/L (46-116); AMYLASE 62 U/L (25-115); ASPARTATE AMINO TRANSFERASE 23 U/L (15-37); BILIRUBIN,DIRECT 0.1 MG/DL (0.0-0.3); BILIRUBIN,TOTAL 0.5 MG/DL (0.2-1.0)
[2018-11-21] MEDS: D5 1/2NS w/KCl 40meq 1000ml 1,000 ML IV SCH ×2 (06:00→10:41)
--- NOTE | 2018-11-21 07:21 | NUR ---
HAND-OFF: Report given to CHARLEY Cade. Pt is awake and resting in bed. Tolerating room air. Iv sites patent. Call light within reach. Endorsed plan of care.
--- NOTE | 2018-11-21 07:22 | NUR ---
NURSE NOTES: Received report from Rico WHITEHEAD. Pt in bed and Alert and awake and able to make needs known. Noted patient fatigue and weak. Bed in lowest position and locked. Condom cath intact and patent. IV in LFA 22G running with D5 1/2NS w/40mEq KCL @75ml/hr and also IV in RFA 22G SL patent and intact. Denied pain. Tylenol give for the episode of fever around 4am. Afebrile. Will continue to monitor with current plan of care.
[2018-11-21 08:00] VITALS: BP 152/91
[2018-11-21] MEDS: Loperamide 2mg cap ORAL PRN ×2 (08:52→17:22)
[2018-11-21] MEDS: PARoxetine 20mg tab ORAL SCH (08:52)
[2018-11-21] MEDS: Tamsulosin 0.4mg cap ORAL SCH ×2 (08:52→17:22)
[2018-11-21] MEDS: Heparin 5000 units/ml inj SUBQ SCH ×2 (08:56→21:05)
--- NOTE | 2018-11-21 09:34 | GI Progress Note ---
Assessment/Plan Problems: (1) Severe protein-calorie malnutrition ICD Codes: E43 - Unspecified severe protein-calorie malnutrition SNOMED: 699743223 (2) History of rectal cancer ICD Codes: Z85.048 - Personal history of other malignant neoplasm of rectum, rectosigmoid junction, and anus SNOMED: 479380921 (3) Intractable abdominal pain ICD Codes: R10.9 - Unspecified abdominal pain SNOMED: 57896928, 334544270 Status: stable, unchanged Status Narrative Discussed with Dr. Germain Assessment/Plan Status post colonoscopy in September 2018 1. Focal proctitis suspicious for C. diff versus ulcerative colitis, status post biopsy. 2. Status post biopsy of the right and left colon to evaluate microscopic colitis. >> negative Rectal bleeding resolved Stable H&H Advance diet as tolerated bowel regimen, hold stool softeners and laxatives Sent for C. difficile, Imodium as needed if negative obtain records from [facility] monitor H&H fu ID recs Electrolyte correction Follow labs PPI The patient was seen and examined at bedside and all new and available data was reviewed in the patients chart. I agree with the above findings, impression and plan. (Patient seen earlier today. Signature stamp does not reflect patient encounter time.). - Dejan Germain MD Subjective Subjective Rectal bleeding resolved Now has diarrhea Objective Last 24 Hour Vital Signs Date Time Temp Pulse Resp B/P (MAP) Pulse Ox O2 Delivery O2 Flow Rate FiO2 11/21/18 09:00 Room Air 11/21/18 08:00 98.9 103 18 152/91 (111) 96 11/21/18 05:50 106 149/95 11/21/18 05:15 97.9 11/21/18 04:00 102 11/21/18 04:00 100.5 102 18 149/89 (109) 96 11/21/18 00:03 107 142/84 11/21/18 00:00 99.8 104 18 142/84 (103) 96 11/21/18 00:00 104 11/20/18 21:27 99 18 96 Room Air 21 11/20/18 21:00 Room Air 11/20/18 20:00 99.5 99 18 136/76 (96) 95 11/20/18 20:00 99 11/20/18 17:31 91 132/93 5/20/19 16:00 97.9 72 20 110/82 (91) 95 11/20/18 16:00 94 11/20/18 12:33 97 122/87 11/20/18 12:00 95 11/20/18 12:00 97.3 97 20 122/77 (92) 96 Intake and Output 11/20/18 11/21/18 19:00 07:00 Intake Total 125 ml Output Total 400 ml Balance -275 ml Intake Oral 125 ml Output Urine Total 400 ml # Voids 5 # Bowel Movements 7 2 Laboratory Tests Test 11/21/18 00:30 11/21/18 04:30 Vancomycin Level Trough 6.0 ug/mL (5.0-12.0) White Blood Count 14.2 K/UL (4.8-10.8) H Red Blood Count 4.30 M/UL (4.70-6.10) L Hemoglobin 13.8 G/DL (14.2-18.0) L Hematocrit 40.3 % (42.0-52.0) L Mean Corpuscular Volume 94 FL (80-99) Mean Corpuscular Hemoglobin 32.0 PG (27.0-31.0) H Mean Corpuscular Hemoglobin Concent 34.2 G/DL (32.0-36.0) Red Cell Distribution Width 11.6 % (11.6-14.8) Platelet Count 248 K/UL (150-450) Mean Platelet Volume 7.4 FL (6.5-10.1) Neutrophils (%) (Auto) 69.2 % (45.0-75.0) Lymphocytes (%) (Auto) 24.0 % (20.0-45.0) Monocytes (%) (Auto) 5.6 % (1.0-10.0) Eosinophils (%) (Auto) 0.8 % (0.0-3.0) Basophils (%) (Auto) 0.4 % (0.0-2.0) Sodium Level 143 MMOL/L (136-145) Potassium Level 3.7 MMOL/L (3.5-5.1) Chloride Level 110 MMOL/L (98-107) H Carbon Dioxide Level 19 MMOL/L (21-32) L Anion Gap 14 mmol/L (5-15) Blood Urea Nitrogen 16 mg/dL (7-18) Creatinine 1.1 MG/DL (0.55-1.30) Estimat Glomerular Filtration Rate > 60 mL/min (>60) Glucose Level 105 MG/DL (74-106) Calcium Level 8.2 MG/DL (8.5-10.1) L Phosphorus Level 1.6 MG/DL (2.5-4.9) L Magnesium Level 1.7 MG/DL (1.8-2.4) L Total Bilirubin 0.5 MG/DL (0.2-1.0) Direct Bilirubin 0.1 MG/DL (0.0-0.3) Aspartate Amino Transf (AST/SGOT) 23 U/L (15-37) Alanine Aminotransferase (ALT/SGPT) 22 U/L (12-78) Alkaline Phosphatase 97 U/L (46-116) Total Protein 7.3 G/DL (6.4-8.2) Albumin 2.3 G/DL (3.4-5.0) L Amylase Level 62 U/L (25-115) Lipase 284 U/L (73-393) Height (Feet): 5 Height (Inches): 5.00 Weight (Pounds): 155 General Appearance: WD/WN, no apparent distress, alert Cardiovascular: normal rate Respiratory/Chest: normal breath sounds, no respiratory distress Abdominal Exam: normal bowel sounds, non tender, soft Extremities: normal range of motion, non-tender Jasen Brink NP November 21, 2018 09:34
[2018-11-21] MEDS ORDERED: Potassium Phosphate 30 MM in NS 275 ML IV SCH (11:00)
--- NOTE | 2018-11-21 11:59 | NUR ---
*-* INSURANCE *-* ALL CLINICALS AND REVIEWS HAVE SANDRA [facility] F:[phone] P:[phone] REF#[id number]
[2018-11-21 12:00] VITALS: BP 148/75
--- NOTE | 2018-11-21 12:08 | Nephrology Progress Note ---
Assessment/Plan Problem List: (1) Sepsis (2) Fecal impaction (3) Hypokalemia (4) Hypothyroidism (5) HIV (human immunodeficiency virus infection) (6) Anemia Assessment Sepsis Possible PNA Acute kidney injury, possibly due to mild hydroureteronephrosis seen on CT scan -resolved Rectal CA, recently diagnosed HIV/AIDS Fecal retention History of CVA Hypertension Hypothyroidism Depression Hypokalemia Anemia Plan Plan: K , Phos supplement stool softner Reglan as needed Gastric support Monitor lytes DC IV fluids per cardiology per orders Subjective ROS Limited/Unobtainable: No Constitutional: Reports: malaise, weakness Objective Objective Last 24 Hour Vital Signs Date Time Temp Pulse Resp B/P (MAP) Pulse Ox O2 Delivery O2 Flow Rate FiO2 11/21/18 12:00 97.9 100 20 148/75 (99) 100 11/21/18 09:00 Room Air 11/21/18 08:00 103 11/21/18 08:00 98.9 103 18 152/91 (111) 96 11/21/18 05:50 106 149/95 11/21/18 05:15 97.9 11/21/18 04:00 102 11/21/18 04:00 100.5 102 18 149/89 (109) 96 11/21/18 00:03 107 142/84 11/21/18 00:00 99.8 104 18 142/84 (103) 96 11/21/18 00:00 104 11/20/18 21:27 99 18 96 Room Air 21 11/20/18 21:00 Room Air 11/20/18 20:00 99.5 99 18 136/76 (96) 95 11/20/18 20:00 99 11/20/18 17:31 91 132/93 11/20/18 16:00 97.9 72 20 110/82 (91) 95 11/20/18 16:00 94 11/20/18 12:33 97 122/87 Intake and Output 11/20/18 11/21/18 19:00 07:00 Intake Total 125 ml Output Total 400 ml Balance -275 ml Intake Oral 125 ml Output Urine Total 400 ml # Voids 5 # Bowel Movements 7 2 Laboratory Tests 11/21/18 00:30: Vancomycin Level Trough 6.0 11/21/18 04:30: White Blood Count 14.2H, Red Blood Count 4.30L, Hemoglobin 13.8L, Hematocrit 40.3L, Mean Corpuscular Volume 94, Mean Corpuscular Hemoglobin 32.0H, Mean Corpuscular Hemoglobin Concent 34.2, Red Cell Distribution Width 11.6, Platelet Count 248, Mean Platelet Volume 7.4, Neutrophils (%) (Auto) 69.2, Lymphocytes (% ) (Auto) 24.0, Monocytes (%) (Auto) 5.6, Eosinophils (%) (Auto) 0.8, Basophils ( %) (Auto) 0.4, Sodium Level 143, Potassium Level 3.7, Chloride Level 110H, Carbon Dioxide Level 19L, Anion Gap 14, Blood Urea Nitrogen 16, Creatinine 1.1, Estimat Glomerular Filtration Rate > 60, Glucose Level 105, Calcium Level 8.2L, Phosphorus Level 1.6L, Magnesium Level 1.7L, Total Bilirubin 0.5, Direct Bilirubin 0.1, Aspartate Amino Transf (AST/SGOT) 23, Alanine Aminotransferase ( ALT/SGPT) 22, Alkaline Phosphatase 97, Total Protein 7.3, Albumin 2.3L, Amylase Level 62, Lipase 284 Height (Feet): 5 Height (Inches): 5.00 Weight (Pounds): 155 General Appearance: no apparent distress Cardiovascular: tachycardia Respiratory/Chest: decreased breath sounds Abdomen: absent bowel sounds Hayden Andres MD November 21, 2018 12:08
--- NOTE | 2018-11-21 12:26 | Pulmonology Progress Note ---
Assessment/Plan Problems: (1) Sepsis (2) ATN (acute tubular necrosis) (3) Intractable abdominal pain (4) Diarrhea (5) History of rectal cancer (6) C. difficile colitis (7) Severe protein-calorie malnutrition (8) HIV (human immunodeficiency virus infection) Assessment/Plan improving wants to go home iv fluids iv abx check cultures check electrolytes f/u cardiology recommendations Subjective ROS Limited/Unobtainable: No Constitutional: Reports: no symptoms HEENT: Repors: no symptoms Respiratory: Reports: no symptoms Allergies: Coded Allergies: CODEINE (Unverified Allergy, Unknown, 11/28/17) EMTRICITABINE (Verified Allergy, Unknown, anxiousness, 08/31/18) SULFAMETHOXAZOLE (Unverified Allergy, Unknown, 10/27/17) TENOFOVIR (Verified Allergy, Unknown, anxiousness, 08/31/18) TRIMETHOPRIM (Unverified Allergy, Unknown, 10/27/17) Objective Last 24 Hour Vital Signs Date Time Temp Pulse Resp B/P (MAP) Pulse Ox O2 Delivery O2 Flow Rate FiO2 11/21/18 12:09 100 148/75 11/21/18 12:00 97.9 100 20 148/75 (99) 100 11/21/18 09:00 Room Air 11/21/18 08:22 100 16 98 Room Air 21 11/21/18 08:00 103 11/21/18 08:00 98.9 103 18 152/91 (111) 96 11/21/18 05:50 106 149/95 11/21/18 05:15 97.9 11/21/18 04:00 102 11/21/18 04:00 100.5 102 18 149/89 (109) 96 11/21/18 00:03 107 142/84 11/21/18 00:00 99.8 104 18 142/84 (103) 96 11/21/18 00:00 104 11/20/18 21:27 99 18 96 Room Air 21 11/20/18 21:00 Room Air 11/20/18 20:00 99.5 99 18 136/76 (96) 95 11/20/18 20:00 99 11/20/18 17:31 91 132/93 11/20/18 16:00 97.9 72 20 110/82 (91) 95 11/20/18 16:00 94 11/20/18 12:33 97 122/87 Intake and Output 11/20/18 11/21/18 19:00 07:00 Intake Total 125 ml Output Total 400 ml Balance -275 ml Intake Oral 125 ml Output Urine Total 400 ml # Voids 5 # Bowel Movements 7 2 General Appearance: WD/WN HEENT: normocephalic, atraumatic, anicteric Respiratory/Chest: chest wall non-tender, lungs clear Abdomen: normal bowel sounds, soft, non tender Laboratory Tests 11/21/18 00:30: Vancomycin Level Trough 6.0 11/21/18 04:30: White Blood Count 14.2H, Red Blood Count 4.30L, Hemoglobin 13.8L, Hematocrit 40.3L, Mean Corpuscular Volume 94, Mean Corpuscular Hemoglobin 32.0H, Mean Corpuscular Hemoglobin Concent 34.2, Red Cell Distribution Width 11.6, Platelet Count 248, Mean Platelet Volume 7.4, Neutrophils (%) (Auto) 69.2, Lymphocytes (% ) (Auto) 24.0, Monocytes (%) (Auto) 5.6, Eosinophils (%) (Auto) 0.8, Basophils ( %) (Auto) 0.4, Sodium Level 143, Potassium Level 3.7, Chloride Level 110H, Carbon Dioxide Level 19L, Anion Gap 14, Blood Urea Nitrogen 16, Creatinine 1.1, Estimat Glomerular Filtration Rate > 60, Glucose Level 105, Calcium Level 8.2L, Phosphorus Level 1.6L, Magnesium Level 1.7L, Total Bilirubin 0.5, Direct Bilirubin 0.1, Aspartate Amino Transf (AST/SGOT) 23, Alanine Aminotransferase ( ALT/SGPT) 22, Alkaline Phosphatase 97, Total Protein 7.3, Albumin 2.3L, Amylase Level 62, Lipase 284 Current Medications Medications (Trade) Dose Ordered Sig/Roman Route PRN Reason Start Time Stop Time Status Last Admin Dose Admin Acetaminophen (Tylenol) 650 mg Q4H PRN ORAL fever 11/17/18 23:00 12/17/18 22:59 11/21/18 04:45 Albuterol/ Ipratropium (Albuterol/ Ipratropium) 3 ml Q4H PRN HHN Shortness of Breath 11/17/18 23:00 11/22/18 22:59 Baclofen (Lioresal) 10 mg THREE TIMES A DAY ORAL 11/18/18 09:00 12/18/18 08:59 11/21/18 12:09 Cefepime HCl 2 gm/ Dextrose 110 ml @ 220 mls/hr Q12HR@0300,1500 IV 11/18/18 03:00 11/25/18 02:59 11/21/18 03:07 Dextrose (Dextrose 50%) STAT PRN IV Hypoglycemia 11/17/18 23:00 12/17/18 22:59 Diltiazem HCl (Cardizem) 60 mg EVERY 6 HOURS ORAL 11/20/18 12:00 12/20/18 11:59 11/21/18 12:09 Heparin Sodium (Porcine) (Heparin 5000 units/ml) 5,000 units EVERY 12 HOURS SUBQ 11/18/18 09:00 12/18/18 08:59 11/21/18 08:56 Levothyroxine Sodium (Synthroid) 25 mcg DAILY@0630 ORAL 11/18/18 06:30 12/18/18 06:29 11/21/18 05:50 Loperamide HCl (Imodium) 2 mg Q6H PRN ORAL Diarrhea 11/20/18 12:30 12/20/18 12:29 11/21/18 08:52 Metoprolol Tartrate (Lopressor) 5 mg Q4H PRN IVP HR >110 11/20/18 02:15 12/20/18 02:14 11/20/18 08:29 Metronidazole (Flagyl) 500 mg Q8HR ORAL 11/18/18 14:00 11/25/18 13:59 11/21/18 05:50 Mirtazapine (Remeron) 15 mg BEDTIME ORAL 11/18/18 21:00 12/18/18 20:59 11/20/18 21:20 Morphine Sulfate (Morphine Sulfate) 2 mg Q4H PRN IVP Moderate Pain (Pain Scale 4-6) 11/17/18 23:00 11/24/18 22:59 11/18/18 21:35 Ondansetron HCl (Zofran) 4 mg Q6H PRN IVP Nausea & Vomiting 11/17/18 23:00 12/17/18 22:59 11/21/18 00:13 Oxycodone/ Acetaminophen (Percocet 10/325) 1 tab Q4H PRN ORAL Severe Breakthru Pain (>7) 11/18/18 10:45 11/24/18 22:44 11/19/18 23:55 Paroxetine HCl (Paxil) 40 mg DAILY ORAL 11/18/18 09:00 12/18/18 08:59 11/21/18 08:52 Potassium Phosphate 30 mm/ Sodium Chloride 285 ml @ 47.5 mls/hr ONCE IV 11/21/18 11:00 11/21/18 15:00 11/21/18 11:33 Tamsulosin HCl (Flomax) 0.4 mg BID ORAL 11/19/18 18:00 12/18/18 20:59 11/21/18 08:52 Temazepam (Restoril) 15 mg HSPRN PRN ORAL Insomnia 11/17/18 23:00 11/24/18 22:59 Vancomycin HCl (Vanco rx to dose) 1 ea DAILY PRN MISC prn 11/17/18 23:45 12/17/18 23:44 Vancomycin HCl 1 gm/Dextrose 275 ml @ 183.708 mls/hr Q12H IVPB 11/21/18 16:00 11/26/18 15:59 Oliverio Rm MD November 21, 2018 12:26
[2018-11-21] MEDS ORDERED: Sodium Phosphate 30 MM in NS 275 ML IV ONE (12:45)
--- NOTE | 2018-11-21 13:35 | NUR ---
RD ASSESSMENT & RECOMMENDATIONS SEE CARE ACTIVITY FOR COMPLETE ASSESSMENT DAILY ESTIMATED NEEDS: Needs based on HIV, CA 69kg 25-30 kcals/kg 6731-2516 total kcals 1-1.5 g protein/kg 69-103 g total protein 25-30 mL/kg 1176-8259 total fluid mLs NUTRITION DIAGNOSIS: * Increased kcal/pro needs R/T catabolic dx as evidenced by HIV+, rectal CA w/ episodes of diarrhea. CURRENT DIET:REGULAR PO DIET RECOMMENDATIONS: REGULAR, lactose free diet ADDITIONAL RECOMMENDATIONS: * Standing wt as able for accurate CBW * Ensure CLEAR TID w/ meals as tolerated * Check lytes daily, replete as needed (low phos and mag) * Add probiotics- diarrhea * Monitor PO tolerance and PO acceptance- c/o N/V/D at this time
--- NOTE | 2018-11-21 15:54 | NUR ---
CASE MANAGEMENT:REVIEW 11/21/18 SI: SEPSIS. C-DIFF COLITIS. HIV 97.9 100 20 148/75 100% ON RA WBC+14.2 PHOS-1.6 MAG-1.7 IS: IV MAG SULFATE Q1HRS X2 IV K-PHOS X1 IV VANCOMYCIN Q12 IV CEFEPIME Q12 FLAGYL PO Q8HRS CARDIZEM PO Q6HRS HEPARIN SQ Q12 : TELEMETRY STATUS DCP: FROM [facility]
[2018-11-21 16:00] VITALS: BP 130/61
--- NOTE | 2018-11-21 16:03 | NUR ---
NURSE NOTES: Spoke to Asia at ultrasound dept. She states that she came two times today and pt c/o fatigue and refused the venous duplex for DVT. She will follow up tomorrow AM.
[2018-11-21] MEDS: Vancomycin 1gm/D5W 275ml IVPB SCH ×2 (16:22)
--- NOTE | 2018-11-21 16:32 | Cardiac Electrophysiology PN ---
Assessment/Plan Assessment/Plan 1. Recurrent episodes of supraventricular tachycardia. His echocardiogram showed EF of 60%. After stabilization, the patient would benefit from electrophysiology study and hopefully elimination of this arrhythmia focus. It is of note that the patient received multiple doses of IV metoprolol to suppress the arrhythmia. 2. Hypertension. On Cardizem that would help the present arrhythmia. 3. HIV and AIDS. 4. Sepsis, on IV antibiotic. 5. Rectal bleeding. Further evaluation by Dr. Germain due to rectal cancer. 6. Abdominal pain. Subjective Subjective No events. Objective Last 24 Hour Vital Signs Date Time Temp Pulse Resp B/P (MAP) Pulse Ox O2 Delivery O2 Flow Rate FiO2 11/21/18 12:09 100 148/75 11/21/18 12:00 98 11/21/18 12:00 97.9 100 20 148/75 (99) 100 11/21/18 09:00 Room Air 11/21/18 08:22 100 16 98 Room Air 21 11/21/18 08:00 103 11/21/18 08:00 98.9 103 18 152/91 (111) 96 11/21/18 05:50 106 149/95 11/21/18 05:15 97.9 11/21/18 04:00 102 11/21/18 04:00 100.5 102 18 149/89 (109) 96 11/21/18 00:03 107 142/84 11/21/18 00:00 99.8 104 18 142/84 (103) 96 11/21/18 00:00 104 11/20/18 21:27 99 18 96 Room Air 21 11/20/18 21:00 Room Air 11/20/18 20:00 99.5 99 18 136/76 (96) 95 11/20/18 20:00 99 11/20/18 17:31 91 132/93 Intake and Output 11/20/18 11/21/18 19:00 07:00 Intake Total 125 ml Output Total 400 ml Balance -275 ml Intake Oral 125 ml Output Urine Total 400 ml # Voids 5 # Bowel Movements 7 2 Laboratory Tests Test 11/21/18 00:30 11/21/18 04:30 Vancomycin Level Trough 6.0 ug/mL (5.0-12.0) White Blood Count 14.2 K/UL (4.8-10.8) H Red Blood Count 4.30 M/UL (4.70-6.10) L Hemoglobin 13.8 G/DL (14.2-18.0) L Hematocrit 40.3 % (42.0-52.0) L Mean Corpuscular Volume 94 FL (80-99) Mean Corpuscular Hemoglobin 32.0 PG (27.0-31.0) H Mean Corpuscular Hemoglobin Concent 34.2 G/DL (32.0-36.0) Red Cell Distribution Width 11.6 % (11.6-14.8) Platelet Count 248 K/UL (150-450) Mean Platelet Volume 7.4 FL (6.5-10.1) Neutrophils (%) (Auto) 69.2 % (45.0-75.0) Lymphocytes (%) (Auto) 24.0 % (20.0-45.0) Monocytes (%) (Auto) 5.6 % (1.0-10.0) Eosinophils (%) (Auto) 0.8 % (0.0-3.0) Basophils (%) (Auto) 0.4 % (0.0-2.0) Sodium Level 143 MMOL/L (136-145) Potassium Level 3.7 MMOL/L (3.5-5.1) Chloride Level 110 MMOL/L (98-107) H Carbon Dioxide Level 19 MMOL/L (21-32) L Anion Gap 14 mmol/L (5-15) Blood Urea Nitrogen 16 mg/dL (7-18) Creatinine 1.1 MG/DL (0.55-1.30) Estimat Glomerular Filtration Rate > 60 mL/min (>60) Glucose Level 105 MG/DL (74-106) Calcium Level 8.2 MG/DL (8.5-10.1) L Phosphorus Level 1.6 MG/DL (2.5-4.9) L Magnesium Level 1.7 MG/DL (1.8-2.4) L Total Bilirubin 0.5 MG/DL (0.2-1.0) Direct Bilirubin 0.1 MG/DL (0.0-0.3) Aspartate Amino Transf (AST/SGOT) 23 U/L (15-37) Alanine Aminotransferase (ALT/SGPT) 22 U/L (12-78) Alkaline Phosphatase 97 U/L (46-116) Total Protein 7.3 G/DL (6.4-8.2) Albumin 2.3 G/DL (3.4-5.0) L Amylase Level 62 U/L (25-115) Lipase 284 U/L (73-393) Objective HEAD AND NECK: No JVD. LUNGS: Clear. CARDIOVASCULAR: Regular S1 and S2 with no gallop or murmur. ABDOMEN: Soft. EXTREMITIES: No pitting edema. Abel Mendez MD November 21, 2018 16:32
[2018-11-21] MEDS ORDERED: Heparin 1000 units/ml 1ml Vial INJ SCH (17:00)
--- NOTE | 2018-11-21 17:03 | Infectious Diseases Prog Note ---
Assessment/Plan Assessment/Plan Abx: IV Vancomycin 11/17- Zosyn x1 11/17 Cefepime 11/18- Assessment: Sepsis, unclear source- ?intraabdominal source- r/o bacteremia- ?kidney stone- US shows resolution of hydronephrosis -Renal US: Interval resolution of right hydronephrosis compared to CT from . 6 mm calcification posterior and lateral to the bladder right of midline. This is likely a phlebolith given presence of a right ureteral jet and absence of hydronephrosis. Multiple cysts within the left kidney -CT abd/p w/: Mild right hydroureteronephrosis. An obstructing stone is not definitely seen.However there is a tiny punctate calcification about 1 mm probably within the right distal ureter.Mild to moderate stool. Cysts within the left kidney. Small umbilical hernia containing fat -u/a neg -Bcx NTD -CXR No acute disease -amylase, lipase normal Fever; improving Mild leukocytosis, increasing HARVINDER, improving ?Recent dx of Rectal CA at [facility]-obtain records hx of Cdiff 09/2018- no diarrhea currently - failed oral vancomycin; sp tx w/ Fidaxomicin --09/06 Cdiff toxin a/b +; repeat Cdiff neg x2 -09/06 SP Colonoscopy: proctitis -stool cx: normal thomas -Giardia ag, cryptosporidium neg Hx of UTI 08/2018 -u/a wbc 10-15, shirley neg, leuk +3; ucx >100K PROTEUS MIRABILIS ( I Levo; R Amp, bactrim, Cipro, Nitro; S Ceftriaxone) HIV/AIDS- on ARV -11/19 CD4 392 (17.4%) -09/2018 182 (10.1%), VL UD -11/2017 CD4 323 hx of rectal CA CVA 2004 HTN Plan: -Continue empiric IV Vancomycin #5, Cefepime #4 (abx d #5) and add Flagyl #4 for anaerobic coverage pending cultures -09/23 SP Fidaxomicin #10 -09/13/18 SP PO Vancomycin #8 -f/u cx -Monitor CBC/CMP, temperatures -aspiration precautions -Resume ARV: Genvoya, Prezista, Intelence -i have called [facility] for Rx and these will be taken to [facility] inpt pharmacy -WBC scan to eval for occult infection Thank you for this consultation. Will continue to follow along with you. Discussed with RN, inpt and outpt pharmacist Subjective Allergies: Coded Allergies: CODEINE (Unverified Allergy, Unknown, 11/28/17) EMTRICITABINE (Verified Allergy, Unknown, anxiousness, 08/31/18) SULFAMETHOXAZOLE (Unverified Allergy, Unknown, 10/27/17) TENOFOVIR (Verified Allergy, Unknown, anxiousness, 08/31/18) TRIMETHOPRIM (Unverified Allergy, Unknown, 10/27/17) Subjective afebrile >36hrs mild leukocytosis Bcx NTD Objective Vital Signs Last 24 Hour Vital Signs Date Time Temp Pulse Resp B/P (MAP) Pulse Ox O2 Delivery O2 Flow Rate FiO2 11/21/18 12:09 100 148/75 11/21/18 12:00 98 11/21/18 12:00 97.9 100 20 148/75 (99) 100 11/21/18 09:00 Room Air 11/21/18 08:22 100 16 98 Room Air 21 11/21/18 08:00 103 11/21/18 08:00 98.9 103 18 152/91 (111) 96 11/21/18 05:50 106 149/95 11/21/18 05:15 97.9 11/21/18 04:00 102 11/21/18 04:00 100.5 102 18 149/89 (109) 96 11/21/18 00:03 107 142/84 11/21/18 00:00 99.8 104 18 142/84 (103) 96 11/21/18 00:00 104 11/20/18 21:27 99 18 96 Room Air 21 11/20/18 21:00 Room Air 11/20/18 20:00 99.5 99 18 136/76 (96) 95 11/20/18 20:00 99 11/20/18 17:31 91 132/93 Height (Feet): 5 Height (Inches): 5.00 Weight (Pounds): 155 Objective Abx: IV Vancomycin 11/17- Zosyn x1 11/17 Cefepime 11/18- Assessment: Sepsis- ?intraabdominal source- r/o bacteremia, PNA- ?kidney stone -CT abd/p w/: Mild right hydroureteronephrosis. An obstructing stone is not definitely seen.However there is a tiny punctate calcification about 1 mm probably within the right distal ureter.Mild to moderate stool. Cysts within the left kidney. Small umbilical hernia containing fat -u/a neg -Bcx p -CXR p Fever No leukocytosis HARVINDER, improving ?Recent dx of Rectal CA at [facility]-obtain records hx of Cdiff 09/2018 - failed oral vancomycin; sp tx w/ Fidaxomicin --09/06 Cdiff toxin a/b +; repeat Cdiff neg x2 -09/06 SP Colonoscopy: proctitis -stool cx: normal thomas -Giardia ag, cryptosporidium neg Hx of UTI 08/2018 -u/a wbc 10-15, shirley neg, leuk +3; ucx >100K PROTEUS MIRABILIS ( I Levo; R Amp, bactrim, Cipro, Nitro; S Ceftriaxone) HIV/AIDS- on ARV -09/2018 182 (10.1%), VL UD -11/2017 CD4 323 hx of rectal CA CVA 2004 HTN Plan: -Continue empiric IV Vancomycin #2, Cefepime #1 (abx d #2) and add Flagyl for anaerobic coverage pending cultures -09/23 SP Fidaxomicin #10 -09/13/18 SP PO Vancomycin #8 -f/u cx -Monitor CBC/CMP, temperatures -aspiration precautions -continue ARV- will clarify regimen w/ Dr Hannah Trinh (His HIV provider) [phone]- prior to resuming ARV as there is confusion as of what medicines patient is currently taking -CD4 am Thank you for this consultation. Will continue to follow along with you. Discussed with RN. Laboratory Tests Test 11/21/18 00:30 11/21/18 04:30 Vancomycin Level Trough 6.0 ug/mL (5.0-12.0) White Blood Count 14.2 K/UL (4.8-10.8) H Red Blood Count 4.30 M/UL (4.70-6.10) L Hemoglobin 13.8 G/DL (14.2-18.0) L Hematocrit 40.3 % (42.0-52.0) L Mean Corpuscular Volume 94 FL (80-99) Mean Corpuscular Hemoglobin 32.0 PG (27.0-31.0) H Mean Corpuscular Hemoglobin Concent 34.2 G/DL (32.0-36.0) Red Cell Distribution Width 11.6 % (11.6-14.8) Platelet Count 248 K/UL (150-450) Mean Platelet Volume 7.4 FL (6.5-10.1) Neutrophils (%) (Auto) 69.2 % (45.0-75.0) Lymphocytes (%) (Auto) 24.0 % (20.0-45.0) Monocytes (%) (Auto) 5.6 % (1.0-10.0) Eosinophils (%) (Auto) 0.8 % (0.0-3.0) Basophils (%) (Auto) 0.4 % (0.0-2.0) Sodium Level 143 MMOL/L (136-145) Potassium Level 3.7 MMOL/L (3.5-5.1) Chloride Level 110 MMOL/L (98-107) H Carbon Dioxide Level 19 MMOL/L (21-32) L Anion Gap 14 mmol/L (5-15) Blood Urea Nitrogen 16 mg/dL (7-18) Creatinine 1.1 MG/DL (0.55-1.30) Estimat Glomerular Filtration Rate > 60 mL/min (>60) Glucose Level 105 MG/DL (74-106) Calcium Level 8.2 MG/DL (8.5-10.1) L Phosphorus Level 1.6 MG/DL (2.5-4.9) L Magnesium Level 1.7 MG/DL (1.8-2.4) L Total Bilirubin 0.5 MG/DL (0.2-1.0) Direct Bilirubin 0.1 MG/DL (0.0-0.3) Aspartate Amino Transf (AST/SGOT) 23 U/L (15-37) Alanine Aminotransferase (ALT/SGPT) 22 U/L (12-78) Alkaline Phosphatase 97 U/L (46-116) Total Protein 7.3 G/DL (6.4-8.2) Albumin 2.3 G/DL (3.4-5.0) L Amylase Level 62 U/L (25-115) Lipase 284 U/L (73-393) Current Medications Medications (Trade) Dose Ordered Sig/Roman Route PRN Reason Start Time Stop Time Status Last Admin Dose Admin Acetaminophen (Tylenol) 650 mg Q4H PRN ORAL fever 5/17/19 23:00 12/17/18 22:59 11/21/18 04:45 Albuterol/ Ipratropium (Albuterol/ Ipratropium) 3 ml Q4H PRN HHN Shortness of Breath 11/17/18 23:00 11/22/18 22:59 Baclofen (Lioresal) 10 mg THREE TIMES A DAY ORAL 11/18/18 09:00 12/18/18 08:59 11/21/18 12:09 Cefepime HCl 2 gm/ Dextrose 110 ml @ 220 mls/hr Q12HR@0300,1500 IV 11/18/18 03:00 11/25/18 02:59 11/21/18 14:37 Dextrose (Dextrose 50%) STAT PRN IV Hypoglycemia 11/17/18 23:00 12/17/18 22:59 Diltiazem HCl (Cardizem) 60 mg EVERY 6 HOURS ORAL 11/20/18 12:00 12/20/18 11:59 11/21/18 12:09 Heparin Sodium (Porcine) (Heparin 5000 units/ml) 5,000 units EVERY 12 HOURS SUBQ 11/18/18 09:00 12/18/18 08:59 11/21/18 08:56 Levothyroxine Sodium (Synthroid) 25 mcg DAILY@0630 ORAL 11/18/18 06:30 12/18/18 06:29 11/21/18 05:50 Loperamide HCl (Imodium) 2 mg Q6H PRN ORAL Diarrhea 11/20/18 12:30 12/20/18 12:29 11/21/18 08:52 Metoprolol Tartrate (Lopressor) 5 mg Q4H PRN IVP HR >110 11/20/18 02:15 12/20/18 02:14 11/20/18 08:29 Metronidazole (Flagyl) 500 mg Q8HR ORAL 11/18/18 14:00 11/25/18 13:59 11/21/18 14:41 Mirtazapine (Remeron) 15 mg BEDTIME ORAL 11/18/18 21:00 12/18/18 20:59 11/20/18 21:20 Morphine Sulfate (Morphine Sulfate) 2 mg Q4H PRN IVP Moderate Pain (Pain Scale 4-6) 11/17/18 23:00 11/24/18 22:59 11/18/18 21:35 Ondansetron HCl (Zofran) 4 mg Q6H PRN IVP Nausea & Vomiting 11/17/18 23:00 12/17/18 22:59 11/21/18 00:13 Oxycodone/ Acetaminophen (Percocet 10/325) 1 tab Q4H PRN ORAL Severe Breakthru Pain (>7) 11/18/18 10:45 11/24/18 22:44 11/19/18 23:55 Paroxetine HCl (Paxil) 40 mg DAILY ORAL 11/18/18 09:00 12/18/18 08:59 11/21/18 08:52 Tamsulosin HCl (Flomax) 0.4 mg BID ORAL 11/19/18 18:00 12/18/18 20:59 11/21/18 08:52 Temazepam (Restoril) 15 mg HSPRN PRN ORAL Insomnia 11/17/18 23:00 11/24/18 22:59 Vancomycin HCl (Vanco rx to dose) 1 ea DAILY PRN MISC prn 11/17/18 23:45 12/17/18 23:44 Vancomycin HCl 1 gm/Dextrose 275 ml @ 183.708 mls/hr Q12H IVPB 11/21/18 16:00 11/26/18 15:59 11/21/18 16:22 Miranda Cordero M.D. November 21, 2018 17:03
--- NOTE | 2018-11-21 17:16 | Internal Med Progress Note ---
Subjective Date of Service: November 21, 2018 Physician Name Trey Whitaker Attending Physician Carlos Barragan MD Current Medications Medications (Trade) Dose Ordered Sig/Roman Route PRN Reason Start Time Stop Time Status Last Admin Dose Admin Acetaminophen (Tylenol) 650 mg Q4H PRN ORAL fever 11/17/18 23:00 12/17/18 22:59 11/21/18 04:45 Albuterol/ Ipratropium (Albuterol/ Ipratropium) 3 ml Q4H PRN HHN Shortness of Breath 11/17/18 23:00 11/22/18 22:59 Baclofen (Lioresal) 10 mg THREE TIMES A DAY ORAL 11/18/18 09:00 12/18/18 08:59 11/21/18 12:09 Cefepime HCl 2 gm/ Dextrose 110 ml @ 220 mls/hr Q12HR@0300,1500 IV 11/18/18 03:00 11/25/18 02:59 11/21/18 14:37 Dextrose (Dextrose 50%) STAT PRN IV Hypoglycemia 11/17/18 23:00 12/17/18 22:59 Diltiazem HCl (Cardizem) 60 mg EVERY 6 HOURS ORAL 11/20/18 12:00 12/20/18 11:59 11/21/18 12:09 Heparin Sodium (Porcine) (Heparin 5000 units/ml) 5,000 units EVERY 12 HOURS SUBQ 11/18/18 09:00 12/18/18 08:59 11/21/18 08:56 Heparin Sodium (Porcine) (Heparin) 2,000 unit ONCE INJ 11/21/18 17:00 11/21/18 23:59 Levothyroxine Sodium (Synthroid) 25 mcg DAILY@0630 ORAL 11/18/18 06:30 12/18/18 06:29 11/21/18 05:50 Loperamide HCl (Imodium) 2 mg Q6H PRN ORAL Diarrhea 11/20/18 12:30 12/20/18 12:29 11/21/18 08:52 Metoprolol Tartrate (Lopressor) 5 mg Q4H PRN IVP HR >110 11/20/18 02:15 12/20/18 02:14 11/20/18 08:29 Metronidazole (Flagyl) 500 mg Q8HR ORAL 11/18/18 14:00 11/25/18 13:59 11/21/18 14:41 Mirtazapine (Remeron) 15 mg BEDTIME ORAL 11/18/18 21:00 12/18/18 20:59 11/20/18 21:20 Morphine Sulfate (Morphine Sulfate) 2 mg Q4H PRN IVP Moderate Pain (Pain Scale 4-6) 11/17/18 23:00 11/24/18 22:59 11/18/18 21:35 Ondansetron HCl (Zofran) 4 mg Q6H PRN IVP Nausea & Vomiting 11/17/18 23:00 12/17/18 22:59 11/21/18 00:13 Oxycodone/ Acetaminophen (Percocet 10/325) 1 tab Q4H PRN ORAL Severe Breakthru Pain (>7) 11/18/18 10:45 11/24/18 22:44 11/19/18 23:55 Paroxetine HCl (Paxil) 40 mg DAILY ORAL 11/18/18 09:00 12/18/18 08:59 11/21/18 08:52 Tamsulosin HCl (Flomax) 0.4 mg BID ORAL 11/19/18 18:00 12/18/18 20:59 11/21/18 08:52 Temazepam (Restoril) 15 mg HSPRN PRN ORAL Insomnia 11/17/18 23:00 11/24/18 22:59 Vancomycin HCl (Vanco rx to dose) 1 ea DAILY PRN MISC prn 11/17/18 23:45 12/17/18 23:44 Vancomycin HCl 1 gm/Dextrose 275 ml @ 183.708 mls/hr Q12H IVPB 11/21/18 16:00 11/26/18 15:59 11/21/18 16:22 Allergies: Coded Allergies: CODEINE (Unverified Allergy, Unknown, 11/28/17) EMTRICITABINE (Verified Allergy, Unknown, anxiousness, 08/31/18) SULFAMETHOXAZOLE (Unverified Allergy, Unknown, 10/27/17) TENOFOVIR (Verified Allergy, Unknown, anxiousness, 08/31/18) TRIMETHOPRIM (Unverified Allergy, Unknown, 10/27/17) ROS Limited/Unobtainable: No Constitutional: Reports: no symptoms HEENT: Reports: no symptoms Cardiovascular: Reports: no symptoms Respiratory: Reports: no symptoms Gastrointestinal/Abdominal: Reports: no symptoms Genitourinary: Reports: no symptoms 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: Reports: no symptoms Subjective 68 YO M admitted with constipation rectal bleeding. Cover for Int Arun-Dr Barragan Objective Last Vital Signs Date Time Temp Pulse Resp B/P (MAP) Pulse Ox O2 Delivery O2 Flow Rate FiO2 11/21/18 16:00 88 11/21/18 16:00 98.2 18 130/61 (84) 99 11/21/18 09:00 Room Air 11/21/18 08:22 21 Laboratory Tests Test 11/21/18 00:30 11/21/18 04:30 Vancomycin Level Trough 6.0 ug/mL (5.0-12.0) White Blood Count 14.2 K/UL (4.8-10.8) H Red Blood Count 4.30 M/UL (4.70-6.10) L Hemoglobin 13.8 G/DL (14.2-18.0) L Hematocrit 40.3 % (42.0-52.0) L Mean Corpuscular Volume 94 FL (80-99) Mean Corpuscular Hemoglobin 32.0 PG (27.0-31.0) H Mean Corpuscular Hemoglobin Concent 34.2 G/DL (32.0-36.0) Red Cell Distribution Width 11.6 % (11.6-14.8) Platelet Count 248 K/UL (150-450) Mean Platelet Volume 7.4 FL (6.5-10.1) Neutrophils (%) (Auto) 69.2 % (45.0-75.0) Lymphocytes (%) (Auto) 24.0 % (20.0-45.0) Monocytes (%) (Auto) 5.6 % (1.0-10.0) Eosinophils (%) (Auto) 0.8 % (0.0-3.0) Basophils (%) (Auto) 0.4 % (0.0-2.0) Sodium Level 143 MMOL/L (136-145) Potassium Level 3.7 MMOL/L (3.5-5.1) Chloride Level 110 MMOL/L (98-107) H Carbon Dioxide Level 19 MMOL/L (21-32) L Anion Gap 14 mmol/L (5-15) Blood Urea Nitrogen 16 mg/dL (7-18) Creatinine 1.1 MG/DL (0.55-1.30) Estimat Glomerular Filtration Rate > 60 mL/min (>60) Glucose Level 105 MG/DL (74-106) Calcium Level 8.2 MG/DL (8.5-10.1) L Phosphorus Level 1.6 MG/DL (2.5-4.9) L Magnesium Level 1.7 MG/DL (1.8-2.4) L Total Bilirubin 0.5 MG/DL (0.2-1.0) Direct Bilirubin 0.1 MG/DL (0.0-0.3) Aspartate Amino Transf (AST/SGOT) 23 U/L (15-37) Alanine Aminotransferase (ALT/SGPT) 22 U/L (12-78) Alkaline Phosphatase 97 U/L (46-116) Total Protein 7.3 G/DL (6.4-8.2) Albumin 2.3 G/DL (3.4-5.0) L Amylase Level 62 U/L (25-115) Lipase 284 U/L (73-393) Intake and Output 11/20/18 11/21/18 19:00 07:00 Intake Total 125 ml Output Total 400 ml Balance -275 ml Intake Oral 125 ml Output Urine Total 400 ml # Voids 5 # Bowel Movements 7 2 Objective PHYSICAL EXAMINATION: GENERAL: The patient is a well-developed and well-nourished white male, in no apparent distress. HEENT: Eyes, pupils equal and responsive to light and accommodation. Extraocular movements are intact. NECK: Supple without lymphadenopathy. CHEST: Lungs are clear to auscultation bilaterally without wheezes or rales. CARDIOVASCULAR: Regular rhythm and rate. S1 and S2 are normal without murmurs, rubs, or gallops. ABDOMEN: Soft, nontender, and nondistended. Positive bowel sounds. No evidence of hepatosplenomegaly. Currently, no rebound or guarding noted. EXTREMITIES: Negative for clubbing, cyanosis, or edema. RECTAL/GENITAL: Refused. NEUROLOGIC: Cranial nerves II through XII are grossly intact without focal deficits. Motor strength is 5/5 bilaterally. Deep tendon reflexes are 2+ plantar. Assessment/Plan Assessment/Plan ASSESSMENT: This is a 68-year-old white male. 1. Left abdominal pain. 2. Constipation. 3. Rectal bleeding. 4. Left hydronephrosis. 5. Hypertension. 6. HIV. 7. Hypothyroidism. 8. History of rectal cancer. 9. Cerebrovascular disease. 10. Major depression. 11. Anxiety. 12. Benign prostatic hypertrophy. 13. Paroxysmal supraventricular tachycardia TREATMENT: 1. Constipation/abdominal pain/rectal hemorrhage. Gastroenterology consultation with Dr. Dejan Germain. S/P colonoscopy 09/18. Await C.Diff result. 2. Right hydronephrosis. There is no definite stone seen. The patient may have passed a renal calculus. 3. Hypertension. Continue metoprolol and amlodipine as above. 4. HIV. Continue HAART per Infectious Disease. 5. Hypothyroidism. Continue Levoxyl as above. 6. History of rectal cancer. The patient is status post biopsy at [facility]. 7. Cerebrovascular disease. 8. Major depression. Continue Paxil as above. 9. Anxiety. 10. Benign prostatic hypertrophy. Continue Flomax and oxybutynin as above. 11. Await cardiology consult Trey Whitaker MD November 21, 2018 17:16
--- NOTE | 2018-11-21 18:00 | NUR ---
NURSE NOTES: Spoke to Tami pharmacy supervisor car and yard and she states that Tami spoke with Neal from [facility] pharmacy who comfirmed that Pt's meds for HIV will be delivered from Pt's own pharmacy([facility] pharmacy #[phone]) to Tele around 12pm tomorrow.
[2018-11-21] MEDS ORDERED: Heparin 1000 units/ml 1ml Vial INJ PRN (18:15)
--- NOTE | 2018-11-21 18:33 | NUR ---
NURSE NOTES: Spoke with Dr. Lemos for order of IV heparin. She states that IV heparin is for procedure of nuclear test that would be done at radiology department. Made Dr. Cordero aware regarding pt's refusal of Venous duplex today.
--- NOTE | 2018-11-21 19:25 | NUR ---
NURSE NOTES: Received pt and report from Ramon WHITEHEAD. Observed pt resting in bed with both eyes closed. Pt is A/Ox4. cardiac monitor technician is in placed, IV site intact, asymptomatic, and patent. Bed is in the lowest position, locked and alarmed. Call light within reach. No signs/symptoms of acute distress noted at this time. Will continue plan of care.
--- NOTE | 2018-11-21 19:36 | NUR ---
HAND-OFF: Report given to Lizet RN. Pt remains stable..
[2018-11-21 20:00] VITALS: BP 128/68
[2018-11-21] MEDS: Morphine Sulfate 2mg/ml Inj(IV/IM USE ONLY) IVP PRN (23:50)
[2018-11-22] VITALS: BP 145/81
[2018-11-22] MEDS: Cefepime HCl 2 GM in D5W 110 ML IV SCH ×2 (02:58→15:13)
[2018-11-22 04:00] VITALS: BP 124/69
[2018-11-22] MEDS: Vancomycin 1gm/D5W 275ml IVPB SCH ×2 (04:02)
[2018-11-22] MEDS: Levothyroxine 25mcg tab ORAL SCH (06:08)
[2018-11-22] MEDS: metroNIDAZOLE 500mg tab ORAL SCH ×3 (06:08→21:05)
[2018-11-22] MEDS: dilTIAZem HCl 60mg tab ORAL SCH ×2 (06:14→12:24)
[2018-11-22 06:38] LABS: BASOPHILS % (AUTO) 0.6 % (0.0-2.0); EOSINOPHILS % (AUTO) 1.5 % (0.0-3.0); HEMATOCRIT 35.4 % (42.0-52.0); HEMOGLOBIN 12.1 G/DL (14.2-18.0); LYMPHOCYTES % (AUTO) 28.8 % (20.0-45.0); MEAN CORPUSCULAR VOLUME 93 FL (80-99); MONOCYTES % (AUTO) 7.2 % (1.0-10.0); NEUTROPHILS % (AUTO) 61.9 % (45.0-75.0); PLATELET COUNT 181 K/UL (150-450); RED BLOOD COUNT 3.82 M/UL (4.70-6.10); RED CELL DISTRIBUTION WIDTH 11.6 % (11.6-14.8); WHITE BLOOD COUNT 7.1 K/UL (4.8-10.8)
[2018-11-22 07:09] LABS: ALANINE AMINOTRANSFERASE 15 U/L (12-78); ALBUMIN 2.8 G/DL (3.4-5.0); ALBUMIN/GLOBULIN RATIO 0.7 (1.0-2.7); ALKALINE PHOSPHATASE 85 U/L (46-116); ANION GAP 12 mmol/L (5-15); ASPARTATE AMINO TRANSFERASE 24 U/L (15-37); BILIRUBIN,TOTAL 0.4 MG/DL (0.2-1.0); BLOOD UREA NITROGEN 10 mg/dL (7-18); CALCIUM 8.2 MG/DL (8.5-10.1); CARBON DIOXIDE 18 MMOL/L (21-32); CHLORIDE 110 MMOL/L (98-107); CREATININE 0.9 MG/DL (0.55-1.30); PHOSPHORUS 1.6 MG/DL (2.5-4.9); SODIUM 140 MMOL/L (136-145)
--- NOTE | 2018-11-22 07:32 | NUR ---
NURSE NOTES: Report received from Lincoln. Pt. sleeping comfortably. No breathing distress noted. All IV fluids disconnected previously. Bed on lowest position, brakes engaged, side rails upx2, alarm on. Call light within easy reach.
[2018-11-22 08:00] VITALS: BP 127/72
--- NOTE | 2018-11-22 08:01 | NUR ---
HAND-OFF: Report given to CHARLEY Christianson.
[2018-11-22] MEDS: Tamsulosin 0.4mg cap ORAL SCH ×2 (09:19→18:37)
[2018-11-22] MEDS: PARoxetine 20mg tab ORAL SCH (09:20)
[2018-11-22] MEDS: Heparin 5000 units/ml inj SUBQ SCH ×2 (09:22→21:00)
--- NOTE | 2018-11-22 09:30 | GI Progress Note ---
Assessment/Plan Problems: (1) Severe protein-calorie malnutrition ICD Codes: E43 - Unspecified severe protein-calorie malnutrition SNOMED: 352475707 (2) History of rectal cancer ICD Codes: Z85.048 - Personal history of other malignant neoplasm of rectum, rectosigmoid junction, and anus SNOMED: 632488920 (3) Intractable abdominal pain ICD Codes: R10.9 - Unspecified abdominal pain SNOMED: 43890433, 875858133 Status: unchanged Status Narrative Discussed with Dr. Germain Assessment/Plan Status post colonoscopy in September 2018 1. Focal proctitis suspicious for C. diff versus ulcerative colitis, status post biopsy. 2. Status post biopsy of the right and left colon to evaluate microscopic colitis. >> negative Rectal bleeding resolved Stable H&H C. difficile negative Advance diet as tolerated bowel regimen, hold stool softeners and laxatives Imodium as needed, Lomotil for persistent diarrhea obtain records from [facility] monitor H&H fu ID recs Electrolyte correction Follow labs PPI The patient was seen and examined at bedside and all new and available data was reviewed in the patients chart. I agree with the above findings, impression and plan. (Patient seen earlier today. Signature stamp does not reflect patient encounter time.). - Dejan Germain MD Subjective Subjective Rectal bleeding resolved Now has diarrhea Objective Last 24 Hour Vital Signs Date Time Temp Pulse Resp B/P (MAP) Pulse Ox O2 Delivery O2 Flow Rate FiO2 11/22/18 08:00 97.1 90 20 127/72 (90) 95 11/22/18 08:00 87 11/22/18 06:14 97 135/69 11/22/18 04:00 84 11/22/18 04:00 98.4 85 18 124/69 (87) 96 11/22/18 00:00 98.4 94 18 145/81 (102) 99 11/22/18 00:00 104 11/21/18 23:46 98 155/88 11/21/18 21:00 Room Air 11/21/18 20:18 92 18 100 Room Air 21 11/21/18 20:00 99.0 92 19 128/68 (88) 100 11/21/18 20:00 89 11/21/18 17:22 88 130/61 11/21/18 16:00 88 11/21/18 16:00 98.2 92 18 130/61 (84) 99 11/21/18 12:09 100 148/75 11/21/18 12:00 98 11/21/18 12:00 97.9 100 20 148/75 (99) 100 Intake and Output 11/21/18 11/22/18 19:00 07:00 Intake Total 1745 ml Output Total 500 ml 500 ml Balance 1245 ml -500 ml Intake Oral 360 ml IV Total 1385 ml Output Urine Total 500 ml 500 ml # Voids 3 # Bowel Movements 4 3 Laboratory Tests Test 11/22/18 06:01 White Blood Count 7.1 K/UL (4.8-10.8) Red Blood Count 3.82 M/UL (4.70-6.10) L Hemoglobin 12.1 G/DL (14.2-18.0) L Hematocrit 35.4 % (42.0-52.0) L Mean Corpuscular Volume 93 FL (80-99) Mean Corpuscular Hemoglobin 31.7 PG (27.0-31.0) H Mean Corpuscular Hemoglobin Concent 34.2 G/DL (32.0-36.0) Red Cell Distribution Width 11.6 % (11.6-14.8) Platelet Count 181 K/UL (150-450) Mean Platelet Volume 7.9 FL (6.5-10.1) Neutrophils (%) (Auto) 61.9 % (45.0-75.0) Lymphocytes (%) (Auto) 28.8 % (20.0-45.0) Monocytes (%) (Auto) 7.2 % (1.0-10.0) Eosinophils (%) (Auto) 1.5 % (0.0-3.0) Basophils (%) (Auto) 0.6 % (0.0-2.0) Erythrocyte Sedimentation Rate 78 MM/HR (0-20) H Sodium Level 140 MMOL/L (136-145) Potassium Level 4.0 MMOL/L (3.5-5.1) Chloride Level 110 MMOL/L (98-107) H Carbon Dioxide Level 18 MMOL/L (21-32) L Anion Gap 12 mmol/L (5-15) Blood Urea Nitrogen 10 mg/dL (7-18) Creatinine 0.9 MG/DL (0.55-1.30) Estimat Glomerular Filtration Rate > 60 mL/min (>60) Glucose Level 118 MG/DL (74-106) H Calcium Level 8.2 MG/DL (8.5-10.1) L Phosphorus Level 1.6 MG/DL (2.5-4.9) L Magnesium Level 2.0 MG/DL (1.8-2.4) Total Bilirubin 0.4 MG/DL (0.2-1.0) Aspartate Amino Transf (AST/SGOT) 24 U/L (15-37) Alanine Aminotransferase (ALT/SGPT) 15 U/L (12-78) Alkaline Phosphatase 85 U/L (46-116) C-Reactive Protein, Quantitative 5.4 mg/dL (0.00-0.90) H Total Protein 7.1 G/DL (6.4-8.2) Albumin 2.8 G/DL (3.4-5.0) L Globulin 4.3 g/dL Albumin/Globulin Ratio 0.7 (1.0-2.7) L Height (Feet): 5 Height (Inches): 5.00 Weight (Pounds): 153 General Appearance: WD/WN, no apparent distress, alert Cardiovascular: normal rate Respiratory/Chest: normal breath sounds, no respiratory distress Abdominal Exam: normal bowel sounds, non tender, soft Extremities: normal range of motion, non-tender Jasen Brink NP November 22, 2018 09:30
[2018-11-22] MEDS ORDERED: Sodium Phosphate 30 MM in NS 275 ML IVPB SCH (10:00)
--- NOTE | 2018-11-22 10:47 | NUR ---
WBC Scan: Blood drawn at 1030hrs for Indium-111 WBC labeling. Blood pickup scheduled for 1100hrs. Delivery of Indium-111 labeled WBCs for re-injection is typically 3-6 hours after pickup time.
--- NOTE | 2018-11-22 11:27 | NUR ---
*-* INSURANCE *-* UPDATED CLINICALS AND REVIEWS HAVE BEEN FAXED TO: [facility]ARM[facility] F:[phone] P:[phone] REF#[id number]
--- NOTE | 2018-11-22 11:41 | Pulmonology Progress Note ---
Assessment/Plan Problems: (1) Sepsis (2) ATN (acute tubular necrosis) (3) Intractable abdominal pain (4) Diarrhea (5) History of rectal cancer (6) C. difficile colitis (7) Severe protein-calorie malnutrition (8) HIV (human immunodeficiency virus infection) Assessment/Plan indium scan in process CD4 count noted, it is 17 improving wants to go home iv fluids iv abx check cultures check electrolytes f/u cardiology recommendations Subjective ROS Limited/Unobtainable: No Constitutional: Reports: no symptoms Respiratory: Reports: no symptoms Allergies: Coded Allergies: CODEINE (Unverified Allergy, Unknown, 11/28/17) EMTRICITABINE (Verified Allergy, Unknown, anxiousness, 08/31/18) SULFAMETHOXAZOLE (Unverified Allergy, Unknown, 10/27/17) TENOFOVIR (Verified Allergy, Unknown, anxiousness, 08/31/18) TRIMETHOPRIM (Unverified Allergy, Unknown, 10/27/17) Objective Last 24 Hour Vital Signs Date Time Temp Pulse Resp B/P (MAP) Pulse Ox O2 Delivery O2 Flow Rate FiO2 11/22/18 09:00 Room Air 11/22/18 08:00 97.1 90 20 127/72 (90) 95 11/22/18 08:00 87 11/22/18 06:14 97 135/69 11/22/18 04:00 84 11/22/18 04:00 98.4 85 18 124/69 (87) 96 11/22/18 00:00 98.4 94 18 145/81 (102) 99 11/22/18 00:00 104 11/21/18 23:46 98 155/88 11/21/18 21:00 Room Air 11/21/18 20:18 92 18 100 Room Air 21 11/21/18 20:00 99.0 92 19 128/68 (88) 100 11/21/18 20:00 89 11/21/18 17:22 88 130/61 11/21/18 16:00 88 11/21/18 16:00 98.2 92 18 130/61 (84) 99 11/21/18 12:09 100 148/75 11/21/18 12:00 98 11/21/18 12:00 97.9 100 20 148/75 (99) 100 Intake and Output 11/21/18 11/22/18 19:00 07:00 Intake Total 1745 ml Output Total 500 ml 500 ml Balance 1245 ml -500 ml Intake Oral 360 ml IV Total 1385 ml Output Urine Total 500 ml 500 ml # Voids 3 # Bowel Movements 4 3 Objective indium scan in process General Appearance: WD/WN, cachetic HEENT: normocephalic Respiratory/Chest: chest wall non-tender, lungs clear Cardiovascular: normal peripheral pulses, normal rate Abdomen: normal bowel sounds, no organomegaly Extremities: no cyanosis Skin: no rash Microbiology Date/Time Source Procedure Growth Status 11/21/18 08:09 Stool Stool Culture - Preliminary Gram Negative Bacillus 1 Resulted 11/21/18 08:09 Stool Clostridium difficile Toxin Assay - Final Resulted Laboratory Tests 11/22/18 06:01: White Blood Count 7.1, Red Blood Count 3.82L, Hemoglobin 12.1L, Hematocrit 35.4L , Mean Corpuscular Volume 93, Mean Corpuscular Hemoglobin 31.7H, Mean Corpuscular Hemoglobin Concent 34.2, Red Cell Distribution Width 11.6, Platelet Count 181, Mean Platelet Volume 7.9, Neutrophils (%) (Auto) 61.9, Lymphocytes (% ) (Auto) 28.8, Monocytes (%) (Auto) 7.2, Eosinophils (%) (Auto) 1.5, Basophils ( %) (Auto) 0.6, Erythrocyte Sedimentation Rate 78H, Sodium Level 140, Potassium Level 4.0, Chloride Level 110H, Carbon Dioxide Level 18L, Anion Gap 12, Blood Urea Nitrogen 10, Creatinine 0.9, Estimat Glomerular Filtration Rate > 60, Glucose Level 118H, Calcium Level 8.2L, Phosphorus Level 1.6L, Magnesium Level 2.0, Total Bilirubin 0.4, Aspartate Amino Transf (AST/SGOT) 24, Alanine Aminotransferase (ALT/SGPT) 15, Alkaline Phosphatase 85, C-Reactive Protein, Quantitative 5.4H, Total Protein 7.1, Albumin 2.8L, Globulin 4.3, Albumin/ Globulin Ratio 0.7L Current Medications Medications (Trade) Dose Ordered Sig/Roman Route PRN Reason Start Time Stop Time Status Last Admin Dose Admin Acetaminophen (Tylenol) 650 mg Q4H PRN ORAL fever 11/17/18 23:00 12/17/18 22:59 11/21/18 04:45 Albuterol/ Ipratropium (Albuterol/ Ipratropium) 3 ml Q4H PRN HHN Shortness of Breath 11/17/18 23:00 11/22/18 22:59 Baclofen (Lioresal) 10 mg THREE TIMES A DAY ORAL 11/18/18 09:00 12/18/18 08:59 11/22/18 09:20 Cefepime HCl 2 gm/ Dextrose 110 ml @ 220 mls/hr Q12HR@0300,1500 IV 11/18/18 03:00 11/25/18 02:59 11/22/18 02:58 Dextrose (Dextrose 50%) STAT PRN IV Hypoglycemia 11/17/18 23:00 12/17/18 22:59 Diltiazem HCl (Cardizem) 60 mg EVERY 6 HOURS ORAL 11/20/18 12:00 12/20/18 11:59 11/22/18 06:14 Heparin Sodium (Porcine) (Heparin 5000 units/ml) 5,000 units EVERY 12 HOURS SUBQ 11/18/18 09:00 12/18/18 08:59 11/22/18 09:22 Heparin Sodium (Porcine) (Heparin) 2,000 unit ONCE PRN INJ NM INDIUM SCAN SPECT WBC ORDER 11/21/18 18:15 11/22/18 23:59 Levothyroxine Sodium (Synthroid) 25 mcg DAILY@0630 ORAL 11/18/18 06:30 12/18/18 06:29 11/22/18 06:08 Loperamide HCl (Imodium) 2 mg Q6H PRN ORAL Diarrhea 11/20/18 12:30 12/20/18 12:29 11/21/18 17:22 Metoprolol Tartrate (Lopressor) 5 mg Q4H PRN IVP HR >110 11/20/18 02:15 12/20/18 02:14 11/20/18 08:29 Metronidazole (Flagyl) 500 mg Q8HR ORAL 11/18/18 14:00 11/25/18 13:59 11/22/18 06:08 Mirtazapine (Remeron) 15 mg BEDTIME ORAL 11/18/18 21:00 12/18/18 20:59 11/21/18 21:05 Morphine Sulfate (Morphine Sulfate) 2 mg Q4H PRN IVP Moderate Pain (Pain Scale 4-6) 11/17/18 23:00 11/24/18 22:59 11/21/18 23:50 Ondansetron HCl (Zofran) 4 mg Q6H PRN IVP Nausea & Vomiting 11/17/18 23:00 12/17/18 22:59 11/21/18 00:13 Oxycodone/ Acetaminophen (Percocet 10/325) 1 tab Q4H PRN ORAL Severe Breakthru Pain (>7) 11/18/18 10:45 11/24/18 22:44 11/19/18 23:55 Paroxetine HCl (Paxil) 40 mg DAILY ORAL 11/18/18 09:00 12/18/18 08:59 11/22/18 09:20 Sodium Phosphate 30 mm/Sodium Chloride 285 ml @ 47.5 mls/hr ONCE IVPB 11/22/18 10:00 11/22/18 16:00 11/22/18 10:30 Tamsulosin HCl (Flomax) 0.4 mg BID ORAL 11/19/18 18:00 12/18/18 20:59 11/22/18 09:19 Temazepam (Restoril) 15 mg HSPRN PRN ORAL Insomnia 11/17/18 23:00 11/24/18 22:59 Vancomycin HCl (Vanco rx to dose) 1 ea DAILY PRN MISC prn 11/17/18 23:45 12/17/18 23:44 Vancomycin HCl 1 gm/Dextrose 275 ml @ 183.708 mls/hr Q12H IVPB 11/21/18 16:00 11/26/18 15:59 11/22/18 04:02 Oliverio Rm MD November 22, 2018 11:41
--- NOTE | 2018-11-22 11:49 | NUR ---
CASE MANAGEMENT:REVIEW 11/22/18 SI: SEPSIS. C-DIFF COLITIS. HIV 97.1 90 20 127/72 95% ON RA ESR+78 PHOS-1.6 IS: IV K-PHOS X1 IV VANCOMYCIN Q12 IV CEFEPIME Q12 FLAGYL PO Q8HRS CARDIZEM PO Q6HRS HEPARIN SQ Q12 : TELEMETRY STATUS DCP: FROM [facility]
[2018-11-22 12:00] VITALS: BP 142/58
--- NOTE | 2018-11-22 12:34 | Diagnostic Imaging Report ---
APPROVED REPORT CPT Code: 85499 Present Symptoms Shortness of breath Comments: Screening Technically difficult study (bilateral contractures of the knee). BILATERAL: Imaging reveals a patent deep venous system bilaterally. There is no evidence of thrombus within the femoral, popliteal or tibial segments. The greater saphenous veins are also within normal limits. Doppler indicates normal spontaneous flow within these segments.
--- NOTE | 2018-11-22 14:40 | Cardiac Electrophysiology PN ---
Assessment/Plan Assessment/Plan 1. Recurrent episodes of SVT. His echocardiogram showed EF of 60%. After stabilization, the patient may benefit from EPS and ablation as out patient S/P multiple doses of IV metoprolol to suppress the arrhythmia.Change Cardizem to Cardizem CD 300 daily 2. Hypertension. On Cardizem that would help the present arrhythmia. 3. HIV and AIDS. 4. Sepsis, on IV antibiotic. 5. Rectal bleeding. Further evaluation by Dr. Germain due to rectal cancer. 6. Abdominal pain. Subjective Subjective No events. In SR on tele. No SVT Objective Last 24 Hour Vital Signs Date Time Temp Pulse Resp B/P (MAP) Pulse Ox O2 Delivery O2 Flow Rate FiO2 11/22/18 12:24 75 142/58 11/22/18 12:00 98.1 89 20 142/58 (86) 97 11/22/18 12:00 110 11/22/18 09:00 Room Air 11/22/18 08:00 97.1 90 20 127/72 (90) 95 11/22/18 08:00 87 11/22/18 06:14 97 135/69 11/22/18 04:00 84 11/22/18 04:00 98.4 85 18 124/69 (87) 96 11/22/18 00:00 98.4 94 18 145/81 (102) 99 11/22/18 00:00 104 11/21/18 23:46 98 155/88 11/21/18 21:00 Room Air 11/21/18 20:18 92 18 100 Room Air 21 11/21/18 20:00 99.0 92 19 128/68 (88) 100 11/21/18 20:00 89 11/21/18 17:22 88 130/61 11/21/18 16:00 88 11/21/18 16:00 98.2 92 18 130/61 (84) 99 Intake and Output 11/21/18 11/22/18 19:00 07:00 Intake Total 1745 ml Output Total 500 ml 500 ml Balance 1245 ml -500 ml Intake Oral 360 ml IV Total 1385 ml Output Urine Total 500 ml 500 ml # Voids 3 # Bowel Movements 4 3 Laboratory Tests Test 11/22/18 06:01 White Blood Count 7.1 K/UL (4.8-10.8) Red Blood Count 3.82 M/UL (4.70-6.10) L Hemoglobin 12.1 G/DL (14.2-18.0) L Hematocrit 35.4 % (42.0-52.0) L Mean Corpuscular Volume 93 FL (80-99) Mean Corpuscular Hemoglobin 31.7 PG (27.0-31.0) H Mean Corpuscular Hemoglobin Concent 34.2 G/DL (32.0-36.0) Red Cell Distribution Width 11.6 % (11.6-14.8) Platelet Count 181 K/UL (150-450) Mean Platelet Volume 7.9 FL (6.5-10.1) Neutrophils (%) (Auto) 61.9 % (45.0-75.0) Lymphocytes (%) (Auto) 28.8 % (20.0-45.0) Monocytes (%) (Auto) 7.2 % (1.0-10.0) Eosinophils (%) (Auto) 1.5 % (0.0-3.0) Basophils (%) (Auto) 0.6 % (0.0-2.0) Erythrocyte Sedimentation Rate 78 MM/HR (0-20) H Sodium Level 140 MMOL/L (136-145) Potassium Level 4.0 MMOL/L (3.5-5.1) Chloride Level 110 MMOL/L (98-107) H Carbon Dioxide Level 18 MMOL/L (21-32) L Anion Gap 12 mmol/L (5-15) Blood Urea Nitrogen 10 mg/dL (7-18) Creatinine 0.9 MG/DL (0.55-1.30) Estimat Glomerular Filtration Rate > 60 mL/min (>60) Glucose Level 118 MG/DL (74-106) H Calcium Level 8.2 MG/DL (8.5-10.1) L Phosphorus Level 1.6 MG/DL (2.5-4.9) L Magnesium Level 2.0 MG/DL (1.8-2.4) Total Bilirubin 0.4 MG/DL (0.2-1.0) Aspartate Amino Transf (AST/SGOT) 24 U/L (15-37) Alanine Aminotransferase (ALT/SGPT) 15 U/L (12-78) Alkaline Phosphatase 85 U/L (46-116) C-Reactive Protein, Quantitative 5.4 mg/dL (0.00-0.90) H Total Protein 7.1 G/DL (6.4-8.2) Albumin 2.8 G/DL (3.4-5.0) L Globulin 4.3 g/dL Albumin/Globulin Ratio 0.7 (1.0-2.7) L Microbiology Date/Time Source Procedure Growth Status 11/21/18 08:09 Stool Stool Culture - Preliminary Gram Negative Bacillus 1 Resulted 11/21/18 08:09 Stool Clostridium difficile Toxin Assay - Final Resulted Objective HEAD AND NECK: No JVD. LUNGS: Clear. CARDIOVASCULAR: Regular S1 and S2 with no gallop or murmur. ABDOMEN: Soft. EXTREMITIES: No pitting edema. Abel Mendez MD November 22, 2018 14:40
--- NOTE | 2018-11-22 15:34 | NUR ---
WBC Scan: Pt injected with In-111 labeled WBCs at 1525hrs. Scanning will be performed tomorrow per protocol.
--- NOTE | 2018-11-22 15:38 | Nephrology Progress Note ---
Assessment/Plan Problem List: (1) Sepsis (2) Fecal impaction (3) Hypokalemia (4) Hypothyroidism (5) HIV (human immunodeficiency virus infection) (6) Anemia Assessment Sepsis Possible PNA Acute kidney injury, possibly due to mild hydroureteronephrosis seen on CT scan -resolved Rectal CA, recently diagnosed HIV/AIDS Fecal retention History of CVA Hypertension Hypothyroidism Depression Hypokalemia Anemia Plan Plan: K , Phos supplement as needed stool softner Reglan as needed Gastric support Monitor lytes DC IV fluids per cardiology per orders Subjective ROS Limited/Unobtainable: No Objective Objective Last 24 Hour Vital Signs Date Time Temp Pulse Resp B/P (MAP) Pulse Ox O2 Delivery O2 Flow Rate FiO2 11/22/18 12:24 75 142/58 11/22/18 12:00 98.1 89 20 142/58 (86) 97 11/22/18 12:00 110 11/22/18 09:00 Room Air 11/22/18 08:00 97.1 90 20 127/72 (90) 95 11/22/18 08:00 87 11/22/18 06:14 97 135/69 11/22/18 04:00 84 11/22/18 04:00 98.4 85 18 124/69 (87) 96 11/22/18 00:00 98.4 94 18 145/81 (102) 99 11/22/18 00:00 104 11/21/18 23:46 98 155/88 11/21/18 21:00 Room Air 11/21/18 20:18 92 18 100 Room Air 21 11/21/18 20:00 99.0 92 19 128/68 (88) 100 11/21/18 20:00 89 11/21/18 17:22 88 130/61 11/21/18 16:00 88 11/21/18 16:00 98.2 92 18 130/61 (84) 99 Intake and Output 11/21/18 11/22/18 19:00 07:00 Intake Total 1745 ml Output Total 500 ml 500 ml Balance 1245 ml -500 ml Intake Oral 360 ml IV Total 1385 ml Output Urine Total 500 ml 500 ml # Voids 3 # Bowel Movements 4 3 Laboratory Tests 11/22/18 06:01: White Blood Count 7.1, Red Blood Count 3.82L, Hemoglobin 12.1L, Hematocrit 35.4L , Mean Corpuscular Volume 93, Mean Corpuscular Hemoglobin 31.7H, Mean Corpuscular Hemoglobin Concent 34.2, Red Cell Distribution Width 11.6, Platelet Count 181, Mean Platelet Volume 7.9, Neutrophils (%) (Auto) 61.9, Lymphocytes (% ) (Auto) 28.8, Monocytes (%) (Auto) 7.2, Eosinophils (%) (Auto) 1.5, Basophils ( %) (Auto) 0.6, Erythrocyte Sedimentation Rate 78H, Sodium Level 140, Potassium Level 4.0, Chloride Level 110H, Carbon Dioxide Level 18L, Anion Gap 12, Blood Urea Nitrogen 10, Creatinine 0.9, Estimat Glomerular Filtration Rate > 60, Glucose Level 118H, Calcium Level 8.2L, Phosphorus Level 1.6L, Magnesium Level 2.0, Total Bilirubin 0.4, Aspartate Amino Transf (AST/SGOT) 24, Alanine Aminotransferase (ALT/SGPT) 15, Alkaline Phosphatase 85, C-Reactive Protein, Quantitative 5.4H, Total Protein 7.1, Albumin 2.8L, Globulin 4.3, Albumin/ Globulin Ratio 0.7L Height (Feet): 5 Height (Inches): 5.00 Weight (Pounds): 153 Objective no change Hayden Andres MD November 22, 2018 15:38
[2018-11-22 16:00] VITALS: BP 136/74
--- NOTE | 2018-11-22 16:12 | Infectious Diseases Prog Note ---
Assessment/Plan Assessment/Plan Abx: IV Vancomycin 11/17- Zosyn x1 11/17 Cefepime 11/18- Assessment: Sepsis, unclear source- ?intraabdominal source- r/o bacteremia- ?kidney stone- US shows resolution of hydronephrosis -Renal US: Interval resolution of right hydronephrosis compared to CT from . 6 mm calcification posterior and lateral to the bladder right of midline. This is likely a phlebolith given presence of a right ureteral jet and absence of hydronephrosis. Multiple cysts within the left kidney -CT abd/p w/: Mild right hydroureteronephrosis. An obstructing stone is not definitely seen.However there is a tiny punctate calcification about 1 mm probably within the right distal ureter.Mild to moderate stool. Cysts within the left kidney. Small umbilical hernia containing fat -u/a neg -Bcx NTD -CXR No acute disease -amylase, lipase normal Fever; improving Mild leukocytosis, SP Diarrhea -stool cx GNB -Cdiff neg HARVINDER, improving ?Recent dx of Rectal CA at [facility]-obtain records hx of Cdiff 09/2018- no diarrhea currently - failed oral vancomycin; sp tx w/ Fidaxomicin --09/06 Cdiff toxin a/b +; repeat Cdiff neg x2 -09/06 SP Colonoscopy: proctitis -stool cx: normal thomas -Giardia ag, cryptosporidium neg Hx of UTI 08/2018 -u/a wbc 10-15, shirley neg, leuk +3; ucx >100K PROTEUS MIRABILIS ( I Levo; R Amp, bactrim, Cipro, Nitro; S Ceftriaxone) HIV/AIDS- on ARV -11/19 CD4 392 (17.4%) -09/2018 182 (10.1%), VL UD -11/2017 CD4 323 hx of rectal CA CVA 2004 HTN Plan: -D/c empiric IV Vancomycin #6, -Continue Cefepime #5 (abx d #6) and add Flagyl #5 for anaerobic coverage pending cultures -09/23 SP Fidaxomicin #10 -09/13/18 SP PO Vancomycin #8 -f/u cx -Monitor CBC/CMP, temperatures -aspiration precautions -Cont ARV: Genvoya, Prezista, Intelence -f/u WBC scan to eval for occult infection Thank you for this consultation. Will continue to follow along with you. Discussed with RN, inpt and outpt pharmacist Subjective Allergies: Coded Allergies: CODEINE (Unverified Allergy, Unknown, 11/28/17) EMTRICITABINE (Verified Allergy, Unknown, anxiousness, 08/31/18) SULFAMETHOXAZOLE (Unverified Allergy, Unknown, 10/27/17) TENOFOVIR (Verified Allergy, Unknown, anxiousness, 08/31/18) TRIMETHOPRIM (Unverified Allergy, Unknown, 10/27/17) Subjective afebrile ~36hrs leukocytosis resolved Bcx NTD Objective Vital Signs Last 24 Hour Vital Signs Date Time Temp Pulse Resp B/P (MAP) Pulse Ox O2 Delivery O2 Flow Rate FiO2 11/22/18 12:24 75 142/58 11/22/18 12:00 98.1 89 20 142/58 (86) 97 11/22/18 12:00 110 11/22/18 09:00 Room Air 11/22/18 08:00 97.1 90 20 127/72 (90) 95 11/22/18 08:00 87 11/22/18 06:14 97 135/69 11/22/18 04:00 84 11/22/18 04:00 98.4 85 18 124/69 (87) 96 11/22/18 00:00 98.4 94 18 145/81 (102) 99 11/22/18 00:00 104 11/21/18 23:46 98 155/88 11/21/18 21:00 Room Air 11/21/18 20:18 92 18 100 Room Air 21 11/21/18 20:00 99.0 92 19 128/68 (88) 100 11/21/18 20:00 89 11/21/18 17:22 88 130/61 Height (Feet): 5 Height (Inches): 5.00 Weight (Pounds): 153 Objective Abx: IV Vancomycin 11/17- Zosyn x1 11/17 Cefepime 11/18- Assessment: Sepsis- ?intraabdominal source- r/o bacteremia, PNA- ?kidney stone -CT abd/p w/: Mild right hydroureteronephrosis. An obstructing stone is not definitely seen.However there is a tiny punctate calcification about 1 mm probably within the right distal ureter.Mild to moderate stool. Cysts within the left kidney. Small umbilical hernia containing fat -u/a neg -Bcx p -CXR p Fever No leukocytosis HARVINDER, improving ?Recent dx of Rectal CA at [facility]-obtain records hx of Cdiff 09/2018 - failed oral vancomycin; sp tx w/ Fidaxomicin --09/06 Cdiff toxin a/b +; repeat Cdiff neg x2 -09/06 SP Colonoscopy: proctitis -stool cx: normal thomas -Giardia ag, cryptosporidium neg Hx of UTI 08/2018 -u/a wbc 10-15, shirley neg, leuk +3; ucx >100K PROTEUS MIRABILIS ( I Levo; R Amp, bactrim, Cipro, Nitro; S Ceftriaxone) HIV/AIDS- on ARV -09/2018 182 (10.1%), VL UD -11/2017 CD4 323 hx of rectal CA CVA 2004 HTN Plan: -Continue empiric IV Vancomycin #2, Cefepime #1 (abx d #2) and add Flagyl for anaerobic coverage pending cultures -09/23 SP Fidaxomicin #10 -09/13/18 SP PO Vancomycin #8 -f/u cx -Monitor CBC/CMP, temperatures -aspiration precautions -continue ARV- will clarify regimen w/ Dr Hannah Trinh (His HIV provider) [phone] prior to resuming ARV as there is confusion as of what medicines patient is currently taking -CD4 am Thank you for this consultation. Will continue to follow along with you. Discussed with RN. Microbiology Date/Time Source Procedure Growth Status 11/21/18 08:09 Stool Stool Culture - Preliminary Gram Negative Bacillus 1 Resulted 11/21/18 08:09 Stool Clostridium difficile Toxin Assay - Final Resulted Laboratory Tests Test 11/22/18 06:01 White Blood Count 7.1 K/UL (4.8-10.8) Red Blood Count 3.82 M/UL (4.70-6.10) L Hemoglobin 12.1 G/DL (14.2-18.0) L Hematocrit 35.4 % (42.0-52.0) L Mean Corpuscular Volume 93 FL (80-99) Mean Corpuscular Hemoglobin 31.7 PG (27.0-31.0) H Mean Corpuscular Hemoglobin Concent 34.2 G/DL (32.0-36.0) Red Cell Distribution Width 11.6 % (11.6-14.8) Platelet Count 181 K/UL (150-450) Mean Platelet Volume 7.9 FL (6.5-10.1) Neutrophils (%) (Auto) 61.9 % (45.0-75.0) Lymphocytes (%) (Auto) 28.8 % (20.0-45.0) Monocytes (%) (Auto) 7.2 % (1.0-10.0) Eosinophils (%) (Auto) 1.5 % (0.0-3.0) Basophils (%) (Auto) 0.6 % (0.0-2.0) Erythrocyte Sedimentation Rate 78 MM/HR (0-20) H Sodium Level 140 MMOL/L (136-145) Potassium Level 4.0 MMOL/L (3.5-5.1) Chloride Level 110 MMOL/L (98-107) H Carbon Dioxide Level 18 MMOL/L (21-32) L Anion Gap 12 mmol/L (5-15) Blood Urea Nitrogen 10 mg/dL (7-18) Creatinine 0.9 MG/DL (0.55-1.30) Estimat Glomerular Filtration Rate > 60 mL/min (>60) Glucose Level 118 MG/DL (74-106) H Calcium Level 8.2 MG/DL (8.5-10.1) L Phosphorus Level 1.6 MG/DL (2.5-4.9) L Magnesium Level 2.0 MG/DL (1.8-2.4) Total Bilirubin 0.4 MG/DL (0.2-1.0) Aspartate Amino Transf (AST/SGOT) 24 U/L (15-37) Alanine Aminotransferase (ALT/SGPT) 15 U/L (12-78) Alkaline Phosphatase 85 U/L (46-116) C-Reactive Protein, Quantitative 5.4 mg/dL (0.00-0.90) H Total Protein 7.1 G/DL (6.4-8.2) Albumin 2.8 G/DL (3.4-5.0) L Globulin 4.3 g/dL Albumin/Globulin Ratio 0.7 (1.0-2.7) L Current Medications Medications (Trade) Dose Ordered Sig/Roman Route PRN Reason Start Time Stop Time Status Last Admin Dose Admin Acetaminophen (Tylenol) 650 mg Q4H PRN ORAL fever 11/17/18 23:00 12/17/18 22:59 11/21/18 04:45 Albuterol/ Ipratropium (Albuterol/ Ipratropium) 3 ml Q4H PRN HHN Shortness of Breath 11/17/18 23:00 11/22/18 22:59 Baclofen (Lioresal) 10 mg THREE TIMES A DAY ORAL 11/18/18 09:00 12/18/18 08:59 11/22/18 12:18 Cefepime HCl 2 gm/ Dextrose 110 ml @ 220 mls/hr Q12HR@0300,1500 IV 11/18/18 03:00 11/25/18 02:59 11/22/18 15:13 Dextrose (Dextrose 50%) STAT PRN IV Hypoglycemia 11/17/18 23:00 12/17/18 22:59 Diltiazem HCl (Cardizem CD) 120 mg DAILY ORAL 11/23/18 09:00 12/23/18 08:59 Diltiazem HCl (Cardizem CD) 180 mg DAILY ORAL 11/23/18 09:00 12/23/18 08:59 Heparin Sodium (Porcine) (Heparin 5000 units/ml) 5,000 units EVERY 12 HOURS SUBQ 11/18/18 09:00 12/18/18 08:59 11/22/18 09:22 Heparin Sodium (Porcine) (Heparin) 2,000 unit ONCE PRN INJ NM INDIUM SCAN SPECT WBC ORDER 11/21/18 18:15 11/22/18 23:59 Levothyroxine Sodium (Synthroid) 25 mcg DAILY@0630 ORAL 11/18/18 06:30 12/18/18 06:29 11/22/18 06:08 Loperamide HCl (Imodium) 2 mg Q6H PRN ORAL Diarrhea 11/20/18 12:30 12/20/18 12:29 11/21/18 17:22 Metoprolol Tartrate (Lopressor) 5 mg Q4H PRN IVP HR >110 11/20/18 02:15 12/20/18 02:14 11/20/18 08:29 Metronidazole (Flagyl) 500 mg Q8HR ORAL 11/18/18 14:00 11/25/18 13:59 5/22/19 14:21 Mirtazapine (Remeron) 15 mg BEDTIME ORAL 11/18/18 21:00 12/18/18 20:59 11/21/18 21:05 Morphine Sulfate (Morphine Sulfate) 2 mg Q4H PRN IVP Moderate Pain (Pain Scale 4-6) 11/17/18 23:00 11/24/18 22:59 11/21/18 23:50 Ondansetron HCl (Zofran) 4 mg Q6H PRN IVP Nausea & Vomiting 11/17/18 23:00 12/17/18 22:59 11/22/18 12:31 Oxycodone/ Acetaminophen (Percocet 10/325) 1 tab Q4H PRN ORAL Severe Breakthru Pain (>7) 11/18/18 10:45 11/24/18 22:44 11/19/18 23:55 Paroxetine HCl (Paxil) 40 mg DAILY ORAL 11/18/18 09:00 12/18/18 08:59 11/22/18 09:20 Phosphorus (Phospha 250 Neutral) 500 mg THREE TIMES A DAY ORAL 11/22/18 18:00 12/22/18 17:59 Tamsulosin HCl (Flomax) 0.4 mg BID ORAL 11/19/18 18:00 12/18/18 20:59 11/22/18 09:19 Temazepam (Restoril) 15 mg HSPRN PRN ORAL Insomnia 11/17/18 23:00 11/24/18 22:59 Vancomycin HCl (Vanco rx to dose) 1 ea DAILY PRN MISC prn 11/17/18 23:45 12/17/18 23:44 Vancomycin HCl 1 gm/Dextrose 275 ml @ 183.708 mls/hr Q12H IVPB 11/21/18 16:00 11/26/18 15:59 11/22/18 04:02 Miranda Cordero M.D. November 22, 2018 16:12
--- NOTE | 2018-11-22 17:12 | Internal Med Progress Note ---
Subjective Date of Service: November 22, 2018 Physician Name Trey Whitaker Attending Physician Carlos Barragan MD Current Medications Medications (Trade) Dose Ordered Sig/Roman Route PRN Reason Start Time Stop Time Status Last Admin Dose Admin Acetaminophen (Tylenol) 650 mg Q4H PRN ORAL fever 11/17/18 23:00 12/17/18 22:59 11/21/18 04:45 Albuterol/ Ipratropium (Albuterol/ Ipratropium) 3 ml Q4H PRN HHN Shortness of Breath 11/17/18 23:00 11/22/18 22:59 Baclofen (Lioresal) 10 mg THREE TIMES A DAY ORAL 11/18/18 09:00 12/18/18 08:59 11/22/18 12:18 Cefepime HCl 2 gm/ Dextrose 110 ml @ 220 mls/hr Q12HR@0300,1500 IV 11/18/18 03:00 11/25/18 02:59 11/22/18 15:13 Dextrose (Dextrose 50%) STAT PRN IV Hypoglycemia 11/17/18 23:00 12/17/18 22:59 Diltiazem HCl (Cardizem CD) 120 mg DAILY ORAL 11/23/18 09:00 12/23/18 08:59 Diltiazem HCl (Cardizem CD) 180 mg DAILY ORAL 11/23/18 09:00 12/23/18 08:59 Heparin Sodium (Porcine) (Heparin 5000 units/ml) 5,000 units EVERY 12 HOURS SUBQ 11/18/18 09:00 12/18/18 08:59 11/22/18 09:22 Heparin Sodium (Porcine) (Heparin) 2,000 unit ONCE PRN INJ NM INDIUM SCAN SPECT WBC ORDER 11/21/18 18:15 11/22/18 23:59 Levothyroxine Sodium (Synthroid) 25 mcg DAILY@0630 ORAL 11/18/18 06:30 12/18/18 06:29 11/22/18 06:08 Loperamide HCl (Imodium) 2 mg Q6H PRN ORAL Diarrhea 11/20/18 12:30 12/20/18 12:29 11/21/18 17:22 Metoprolol Tartrate (Lopressor) 5 mg Q4H PRN IVP HR >110 11/20/18 02:15 12/20/18 02:14 11/20/18 08:29 Metronidazole (Flagyl) 500 mg Q8HR ORAL 11/18/18 14:00 11/25/18 13:59 11/22/18 14:21 Mirtazapine (Remeron) 15 mg BEDTIME ORAL 11/18/18 21:00 12/18/18 20:59 11/21/18 21:05 Morphine Sulfate (Morphine Sulfate) 2 mg Q4H PRN IVP Moderate Pain (Pain Scale 4-6) 11/17/18 23:00 11/24/18 22:59 11/21/18 23:50 Ondansetron HCl (Zofran) 4 mg Q6H PRN IVP Nausea & Vomiting 11/17/18 23:00 12/17/18 22:59 11/22/18 12:31 Oxycodone/ Acetaminophen (Percocet 10/325) 1 tab Q4H PRN ORAL Severe Breakthru Pain (>7) 11/18/18 10:45 11/24/18 22:44 11/22/18 16:46 Paroxetine HCl (Paxil) 40 mg DAILY ORAL 11/18/18 09:00 12/18/18 08:59 11/22/18 09:20 Phosphorus (Phospha 250 Neutral) 500 mg THREE TIMES A DAY ORAL 11/22/18 18:00 12/22/18 17:59 Tamsulosin HCl (Flomax) 0.4 mg BID ORAL 11/19/18 18:00 12/18/18 20:59 11/22/18 09:19 Temazepam (Restoril) 15 mg HSPRN PRN ORAL Insomnia 11/17/18 23:00 11/24/18 22:59 Allergies: Coded Allergies: CODEINE (Unverified Allergy, Unknown, 11/28/17) EMTRICITABINE (Verified Allergy, Unknown, anxiousness, 08/31/18) SULFAMETHOXAZOLE (Unverified Allergy, Unknown, 10/27/17) TENOFOVIR (Verified Allergy, Unknown, anxiousness, 08/31/18) TRIMETHOPRIM (Unverified Allergy, Unknown, 10/27/17) ROS Limited/Unobtainable: No Constitutional: Reports: no symptoms HEENT: Reports: no symptoms Cardiovascular: Reports: no symptoms Respiratory: Reports: no symptoms Gastrointestinal/Abdominal: Reports: no symptoms Genitourinary: Reports: no symptoms 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: Reports: no symptoms Subjective 68 YO M admitted with constipation rectal bleeding. Cover for Int Arun-Dr Barragan Objective Last Vital Signs Date Time Temp Pulse Resp B/P (MAP) Pulse Ox O2 Delivery O2 Flow Rate FiO2 11/22/18 16:00 95 11/22/18 12:24 142/58 11/22/18 12:00 98.1 20 97 11/22/18 09:00 Room Air 11/21/18 20:18 21 Laboratory Tests Test 11/22/18 06:01 White Blood Count 7.1 K/UL (4.8-10.8) Red Blood Count 3.82 M/UL (4.70-6.10) L Hemoglobin 12.1 G/DL (14.2-18.0) L Hematocrit 35.4 % (42.0-52.0) L Mean Corpuscular Volume 93 FL (80-99) Mean Corpuscular Hemoglobin 31.7 PG (27.0-31.0) H Mean Corpuscular Hemoglobin Concent 34.2 G/DL (32.0-36.0) Red Cell Distribution Width 11.6 % (11.6-14.8) Platelet Count 181 K/UL (150-450) Mean Platelet Volume 7.9 FL (6.5-10.1) Neutrophils (%) (Auto) 61.9 % (45.0-75.0) Lymphocytes (%) (Auto) 28.8 % (20.0-45.0) Monocytes (%) (Auto) 7.2 % (1.0-10.0) Eosinophils (%) (Auto) 1.5 % (0.0-3.0) Basophils (%) (Auto) 0.6 % (0.0-2.0) Erythrocyte Sedimentation Rate 78 MM/HR (0-20) H Sodium Level 140 MMOL/L (136-145) Potassium Level 4.0 MMOL/L (3.5-5.1) Chloride Level 110 MMOL/L (98-107) H Carbon Dioxide Level 18 MMOL/L (21-32) L Anion Gap 12 mmol/L (5-15) Blood Urea Nitrogen 10 mg/dL (7-18) Creatinine 0.9 MG/DL (0.55-1.30) Estimat Glomerular Filtration Rate > 60 mL/min (>60) Glucose Level 118 MG/DL (74-106) H Calcium Level 8.2 MG/DL (8.5-10.1) L Phosphorus Level 1.6 MG/DL (2.5-4.9) L Magnesium Level 2.0 MG/DL (1.8-2.4) Total Bilirubin 0.4 MG/DL (0.2-1.0) Aspartate Amino Transf (AST/SGOT) 24 U/L (15-37) Alanine Aminotransferase (ALT/SGPT) 15 U/L (12-78) Alkaline Phosphatase 85 U/L (46-116) C-Reactive Protein, Quantitative 5.4 mg/dL (0.00-0.90) H Total Protein 7.1 G/DL (6.4-8.2) Albumin 2.8 G/DL (3.4-5.0) L Globulin 4.3 g/dL Albumin/Globulin Ratio 0.7 (1.0-2.7) L Microbiology Date/Time Source Procedure Growth Status 11/21/18 08:09 Stool Stool Culture - Preliminary Gram Negative Bacillus 1 Resulted 11/21/18 08:09 Stool Clostridium difficile Toxin Assay - Final Resulted Intake and Output 11/21/18 11/22/18 19:00 07:00 Intake Total 1745 ml Output Total 500 ml 500 ml Balance 1245 ml -500 ml Intake Oral 360 ml IV Total 1385 ml Output Urine Total 500 ml 500 ml # Voids 3 # Bowel Movements 4 3 Objective PHYSICAL EXAMINATION: GENERAL: The patient is a well-developed and well-nourished white male, in no apparent distress. HEENT: Eyes, pupils equal and responsive to light and accommodation. Extraocular movements are intact. NECK: Supple without lymphadenopathy. CHEST: Lungs are clear to auscultation bilaterally without wheezes or rales. CARDIOVASCULAR: Regular rhythm and rate. S1 and S2 are normal without murmurs, rubs, or gallops. ABDOMEN: Soft, nontender, and nondistended. Positive bowel sounds. No evidence of hepatosplenomegaly. Currently, no rebound or guarding noted. EXTREMITIES: Negative for clubbing, cyanosis, or edema. RECTAL/GENITAL: Refused. NEUROLOGIC: Cranial nerves II through XII are grossly intact without focal deficits. Motor strength is 5/5 bilaterally. Deep tendon reflexes are 2+ plantar. Assessment/Plan Assessment/Plan ASSESSMENT: This is a 68-year-old white male. 1. Left abdominal pain. 2. Constipation. 3. Rectal bleeding. 4. Left hydronephrosis. 5. Hypertension. 6. HIV. 7. Hypothyroidism. 8. History of rectal cancer. 9. Cerebrovascular disease. 10. Major depression. 11. Anxiety. 12. Benign prostatic hypertrophy. 13. Paroxysmal supraventricular tachycardia TREATMENT: 1. Constipation/abdominal pain/rectal hemorrhage. Gastroenterology consultation with Dr. Dejan Germain. S/P colonoscopy 09/18. Await C.Diff result. 2. Right hydronephrosis. There is no definite stone seen. The patient may have passed a renal calculus. 3. Hypertension. Continue metoprolol and amlodipine as above. 4. HIV. Continue HAART per Infectious Disease. 5. Hypothyroidism. Continue Levoxyl as above. 6. History of rectal cancer. The patient is status post biopsy at [facility]. 7. Cerebrovascular disease. 8. Major depression. Continue Paxil as above. 9. Anxiety. 10. Benign prostatic hypertrophy. Continue Flomax and oxybutynin as above. 11. Await cardiology consult 12. Discharge planning Trey Whitaker MD November 22, 2018 17:12
[2018-11-22] MEDS: Phospha 250 Neutral tab ORAL SCH (18:35)
--- NOTE | 2018-11-22 18:45 | NUR ---
NURSE NOTES: Patient's own medication brought by his pharmacy. Medications sent to pharmacy.
--- NOTE | 2018-11-22 19:10 | NUR ---
NURSE NOTES: Informed Dr. Rm Patient's own HIV medication has been sent to pharmacy. No orders at this time.
--- NOTE | 2018-11-22 19:30 | NUR ---
NURSE NOTES: Received pt and report from CHARLEY Christianson. Observe pt resting in bed and watching television. gambling monitor is in placed, IV site intact, asymptomatic, and patent. Bed is in the lowest position and locked. Call light within reach. No sign/symptoms of acute distress noted at this time. Will continue plan of care.
--- NOTE | 2018-11-22 19:40 | NUR ---
HAND-OFF: Report given to CHARLEY Hinds. Patient in stable condition.
[2018-11-22 20:00] VITALS: BP 122/71
[2018-11-22] MEDS: Loperamide 2mg cap ORAL PRN (21:05)
[2018-11-22] MEDS: Morphine Sulfate 2mg/ml Inj(IV/IM USE ONLY) IVP PRN (21:46)
[2018-11-23] VITALS: BP 141/82
[2018-11-23] MEDS: Cefepime HCl 2 GM in D5W 110 ML IV SCH ×2 (02:33→15:00)
[2018-11-23] MEDS: Morphine Sulfate 2mg/ml Inj(IV/IM USE ONLY) IVP PRN ×2 (02:34→22:00)
[2018-11-23 04:00] VITALS: BP 142/72
[2018-11-23] MEDS: Levothyroxine 25mcg tab ORAL SCH (06:00)
[2018-11-23] MEDS: metroNIDAZOLE 500mg tab ORAL SCH ×3 (06:00→21:39)
--- NOTE | 2018-11-23 07:37 | NUR ---
NURSE NOTES: report received from Lizet WHITEHEAD. Pt in bed resting. pt on equipment monitor phototypesetting no signs of distress at this time. Bed locked and in lowest position. Call light within reach. Will continue to monitor and follow plan of care.
[2018-11-23 08:00] VITALS: BP 110/69
[2018-11-23] MEDS ORDERED: PREZISTA 800 MG ORAL SCH (08:00)
[2018-11-23 08:12] LABS: BASOPHILS % (AUTO) 0.8 % (0.0-2.0); EOSINOPHILS % (AUTO) 1.5 % (0.0-3.0); HEMATOCRIT 35.2 % (42.0-52.0); HEMOGLOBIN 12.1 G/DL (14.2-18.0); LYMPHOCYTES % (AUTO) 25.3 % (20.0-45.0); MEAN CORPUSCULAR VOLUME 93 FL (80-99); MONOCYTES % (AUTO) 7.5 % (1.0-10.0); NEUTROPHILS % (AUTO) 64.9 % (45.0-75.0); PLATELET COUNT 234 K/UL (150-450); RED CELL DISTRIBUTION WIDTH 11.6 % (11.6-14.8); WHITE BLOOD COUNT 8.4 K/UL (4.8-10.8)
[2018-11-23 08:30] LABS: ANION GAP 11 mmol/L (5-15); BLOOD UREA NITROGEN 12 mg/dL (7-18); CALCIUM 8.8 MG/DL (8.5-10.1); CARBON DIOXIDE 22 MMOL/L (21-32); CHLORIDE 110 MMOL/L (98-107); PHOSPHORUS 2.9 MG/DL (2.5-4.9); POTASSIUM 3.8 MMOL/L (3.5-5.1); SODIUM 143 MMOL/L (136-145)
[2018-11-23] MEDS: PARoxetine 20mg tab ORAL SCH (09:00)
[2018-11-23] MEDS ORDERED: GENVOYA ORAL SCH (09:00)
[2018-11-23] MEDS: INTELENCE 200 MG ORAL SCH ×2 (09:00→17:52)
[2018-11-23] MEDS: Tamsulosin 0.4mg cap ORAL SCH ×2 (09:00→17:52)
[2018-11-23] MEDS ORDERED: EMTRICITABINE TENOFOVIR ORAL SCH (09:00)
[2018-11-23] MEDS ORDERED: dilTIAZem HCl CD 180mg cap ORAL SCH (09:00)
[2018-11-23] MEDS ORDERED: dilTIAZem HCl CD 120mg cap ORAL SCH (09:00)
[2018-11-23] MEDS ORDERED: COBICISTAT ORAL SCH (09:00)
[2018-11-23] MEDS: Phospha 250 Neutral tab ORAL SCH ×3 (09:00→17:53)
[2018-11-23] MEDS: Loperamide 2mg cap ORAL PRN ×2 (09:42→22:00)
[2018-11-23] MEDS: Heparin 5000 units/ml inj SUBQ SCH ×2 (09:44→21:40)
--- NOTE | 2018-11-23 10:17 | GI Progress Note ---
Assessment/Plan Problems: (1) Severe protein-calorie malnutrition ICD Codes: E43 - Unspecified severe protein-calorie malnutrition SNOMED: 558039889 (2) History of rectal cancer ICD Codes: Z85.048 - Personal history of other malignant neoplasm of rectum, rectosigmoid junction, and anus SNOMED: 949766397 (3) Intractable abdominal pain ICD Codes: R10.9 - Unspecified abdominal pain SNOMED: 59848288, 927922641 Status: unchanged Status Narrative Discussed with Dr. Germain Assessment/Plan Status post colonoscopy in September 2018 1. Focal proctitis suspicious for C. diff versus ulcerative colitis, status post biopsy. 2. Status post biopsy of the right and left colon to evaluate microscopic colitis. >> negative Rectal bleeding resolved Stable H&H C. difficile negative Stool culture reviewed, gram-negative bacillus Advance diet as tolerated bowel regimen, hold stool softeners and laxatives Imodium as needed, Lomotil for persistent diarrhea obtain records from [facility] monitor H&H fu ID recs Electrolyte correction Follow labs PPI The patient was seen and examined at bedside and all new and available data was reviewed in the patients chart. I agree with the above findings, impression and plan. (Patient seen earlier today. Signature stamp does not reflect patient encounter time.). - Dejan Germain MD Subjective Subjective Rectal bleeding resolved Now has diarrhea Objective Last 24 Hour Vital Signs Date Time Temp Pulse Resp B/P (MAP) Pulse Ox O2 Delivery O2 Flow Rate FiO2 11/23/18 09:42 102 110/69 11/23/18 09:42 102 110/69 11/23/18 08:00 100.0 102 19 110/69 (83) 96 11/23/18 04:00 112 11/23/18 04:00 97.7 101 19 142/72 (95) 95 11/23/18 00:00 81 11/23/18 00:00 97.3 89 20 141/82 (101) 96 11/22/18 21:00 Room Air 11/22/18 20:01 106 18 98 Room Air 21 11/22/18 20:00 98 11/22/18 20:00 98.2 99 20 122/71 (88) 94 11/22/18 17:16 98.0 11/22/18 16:00 98.0 81 18 136/74 (94) 97 11/22/18 16:00 95 11/22/18 12:24 75 142/58 11/22/18 12:00 98.1 89 20 142/58 (86) 97 11/22/18 12:00 110 Intake and Output 11/22/18 11/23/18 19:00 07:00 Output Total 600 ml 400 ml Balance -600 ml -400 ml Output Urine Total 600 ml 400 ml # Bowel Movements 4 Laboratory Tests Test 11/23/18 06:35 White Blood Count 8.4 K/UL (4.8-10.8) Red Blood Count 3.80 M/UL (4.70-6.10) L Hemoglobin 12.1 G/DL (14.2-18.0) L Hematocrit 35.2 % (42.0-52.0) L Mean Corpuscular Volume 93 FL (80-99) Mean Corpuscular Hemoglobin 31.8 PG (27.0-31.0) H Mean Corpuscular Hemoglobin Concent 34.4 G/DL (32.0-36.0) Red Cell Distribution Width 11.6 % (11.6-14.8) Platelet Count 234 K/UL (150-450) Mean Platelet Volume 7.6 FL (6.5-10.1) Neutrophils (%) (Auto) 64.9 % (45.0-75.0) Lymphocytes (%) (Auto) 25.3 % (20.0-45.0) Monocytes (%) (Auto) 7.5 % (1.0-10.0) Eosinophils (%) (Auto) 1.5 % (0.0-3.0) Basophils (%) (Auto) 0.8 % (0.0-2.0) Sodium Level 143 MMOL/L (136-145) Potassium Level 3.8 MMOL/L (3.5-5.1) Chloride Level 110 MMOL/L (98-107) H Carbon Dioxide Level 22 MMOL/L (21-32) Anion Gap 11 mmol/L (5-15) Blood Urea Nitrogen 12 mg/dL (7-18) Creatinine 1.0 MG/DL (0.55-1.30) Estimat Glomerular Filtration Rate > 60 mL/min (>60) Glucose Level 99 MG/DL (74-106) Calcium Level 8.8 MG/DL (8.5-10.1) Phosphorus Level 2.9 MG/DL (2.5-4.9) Magnesium Level 1.9 MG/DL (1.8-2.4) Height (Feet): 5 Height (Inches): 5.00 Weight (Pounds): 153 General Appearance: WD/WN, no apparent distress, alert Cardiovascular: normal rate Respiratory/Chest: normal breath sounds, no respiratory distress Abdominal Exam: normal bowel sounds, non tender, soft Extremities: non-tender Jasen Brink NP November 23, 2018 10:17
--- NOTE | 2018-11-23 10:47 | Cardiac Electrophysiology PN ---
Assessment/Plan Assessment/Plan 1. Recurrent episodes of SVT. His echocardiogram showed EF of 60%. After stabilization, the patient may benefit from EPS and ablation as out patient S/P multiple doses of IV metoprolol to suppress the arrhythmia. On Cardizem CD 300 daily 2. Hypertension. On Cardizem that would help the present arrhythmia. 3. HIV and AIDS. 4. Sepsis, on IV antibiotic. 5. Rectal bleeding. Further evaluation by Dr. Germain due to rectal cancer. 6. Abdominal pain. ORALIA RN Subjective Subjective No events. In SR on tele. No SVT. DC planning in progress Objective Last 24 Hour Vital Signs Date Time Temp Pulse Resp B/P (MAP) Pulse Ox O2 Delivery O2 Flow Rate FiO2 11/23/18 09:42 102 110/69 11/23/18 09:42 102 110/69 11/23/18 08:00 100.0 102 19 110/69 (83) 96 11/23/18 04:00 112 11/23/18 04:00 97.7 101 19 142/72 (95) 95 11/23/18 00:00 81 11/23/18 00:00 97.3 89 20 141/82 (101) 96 11/22/18 21:00 Room Air 11/22/18 20:01 106 18 98 Room Air 21 11/22/18 20:00 98 11/22/18 20:00 98.2 99 20 122/71 (88) 94 11/22/18 17:16 98.0 11/22/18 16:00 98.0 81 18 136/74 (94) 97 11/22/18 16:00 95 11/22/18 12:24 75 142/58 11/22/18 12:00 98.1 89 20 142/58 (86) 97 11/22/18 12:00 110 Intake and Output 11/22/18 11/23/18 19:00 07:00 Output Total 600 ml 400 ml Balance -600 ml -400 ml Output Urine Total 600 ml 400 ml # Bowel Movements 4 Laboratory Tests Test 11/23/18 06:35 White Blood Count 8.4 K/UL (4.8-10.8) Red Blood Count 3.80 M/UL (4.70-6.10) L Hemoglobin 12.1 G/DL (14.2-18.0) L Hematocrit 35.2 % (42.0-52.0) L Mean Corpuscular Volume 93 FL (80-99) Mean Corpuscular Hemoglobin 31.8 PG (27.0-31.0) H Mean Corpuscular Hemoglobin Concent 34.4 G/DL (32.0-36.0) Red Cell Distribution Width 11.6 % (11.6-14.8) Platelet Count 234 K/UL (150-450) Mean Platelet Volume 7.6 FL (6.5-10.1) Neutrophils (%) (Auto) 64.9 % (45.0-75.0) Lymphocytes (%) (Auto) 25.3 % (20.0-45.0) Monocytes (%) (Auto) 7.5 % (1.0-10.0) Eosinophils (%) (Auto) 1.5 % (0.0-3.0) Basophils (%) (Auto) 0.8 % (0.0-2.0) Sodium Level 143 MMOL/L (136-145) Potassium Level 3.8 MMOL/L (3.5-5.1) Chloride Level 110 MMOL/L (98-107) H Carbon Dioxide Level 22 MMOL/L (21-32) Anion Gap 11 mmol/L (5-15) Blood Urea Nitrogen 12 mg/dL (7-18) Creatinine 1.0 MG/DL (0.55-1.30) Estimat Glomerular Filtration Rate > 60 mL/min (>60) Glucose Level 99 MG/DL (74-106) Calcium Level 8.8 MG/DL (8.5-10.1) Phosphorus Level 2.9 MG/DL (2.5-4.9) Magnesium Level 1.9 MG/DL (1.8-2.4) Microbiology Date/Time Source Procedure Growth Status 11/21/18 17:40 Blood Blood Culture - Preliminary NO GROWTH AFTER 24 HOURS Resulted 11/21/18 17:25 Blood Blood Culture - Preliminary NO GROWTH AFTER 24 HOURS Resulted 11/21/18 08:09 Stool Stool Culture - Preliminary NO SALMONELLA,SHIGELLA,OR CAMPYLOBACT... Resulted 11/21/18 08:09 Stool Clostridium difficile Toxin Assay - Final Resulted Objective HEAD AND NECK: No JVD. LUNGS: Clear. CARDIOVASCULAR: Regular S1 and S2 with no gallop or murmur. ABDOMEN: Soft. EXTREMITIES: No pitting edema. Abel Mendez MD November 23, 2018 10:47
--- NOTE | 2018-11-23 11:17 | NUR ---
CASE MANAGEMENT:REVIEW 11/23/18 SI: SEPSIS. C-DIFF COLITIS. HIV 100.0 112 19 110/69 96% ON RA IS: IV K-PHOS X1 IV VANCOMYCIN Q12 IV CEFEPIME Q12 FLAGYL PO Q8HRS CARDIZEM PO Q6HRS HEPARIN SQ Q12 : TELEMETRY STATUS [facility] Addendum: 11/23/18 at 1123 by KING LARSON LVN LVN K-PHOS NOT GIVEN TODAY
--- NOTE | 2018-11-23 11:59 | Nephrology Progress Note ---
Assessment/Plan Problem List: (1) Sepsis (2) Fecal impaction (3) Hypokalemia (4) Hypothyroidism (5) HIV (human immunodeficiency virus infection) (6) Anemia Assessment Sepsis Possible PNA Acute kidney injury, possibly due to mild hydroureteronephrosis seen on CT scan -resolved Rectal CA, recently diagnosed HIV/AIDS Fecal retention History of CVA Hypertension Hypothyroidism Depression Hypokalemia Anemia Plan Plan: K , Phos supplement as needed stool softner Reglan as needed Gastric support Monitor lytes DC IV fluids per cardiology per orders Subjective ROS Limited/Unobtainable: No Objective Objective Last 24 Hour Vital Signs Date Time Temp Pulse Resp B/P (MAP) Pulse Ox O2 Delivery O2 Flow Rate FiO2 11/23/18 09:42 102 110/69 11/23/18 09:42 102 110/69 11/23/18 08:00 100.0 102 19 110/69 (83) 96 11/23/18 04:00 112 11/23/18 04:00 97.7 101 19 142/72 (95) 95 11/23/18 00:00 81 11/23/18 00:00 97.3 89 20 141/82 (101) 96 11/22/18 21:00 Room Air 11/22/18 20:01 106 18 98 Room Air 21 11/22/18 20:00 98 11/22/18 20:00 98.2 99 20 122/71 (88) 94 11/22/18 17:16 98.0 11/22/18 16:00 98.0 81 18 136/74 (94) 97 11/22/18 16:00 95 11/22/18 12:24 75 142/58 11/22/18 12:00 98.1 89 20 142/58 (86) 97 11/22/18 12:00 110 Intake and Output 11/22/18 11/23/18 19:00 07:00 Output Total 600 ml 400 ml Balance -600 ml -400 ml Output Urine Total 600 ml 400 ml # Bowel Movements 4 Laboratory Tests 11/23/18 06:35: White Blood Count 8.4, Red Blood Count 3.80L, Hemoglobin 12.1L, Hematocrit 35.2L , Mean Corpuscular Volume 93, Mean Corpuscular Hemoglobin 31.8H, Mean Corpuscular Hemoglobin Concent 34.4, Red Cell Distribution Width 11.6, Platelet Count 234, Mean Platelet Volume 7.6, Neutrophils (%) (Auto) 64.9, Lymphocytes (% ) (Auto) 25.3, Monocytes (%) (Auto) 7.5, Eosinophils (%) (Auto) 1.5, Basophils ( %) (Auto) 0.8, Sodium Level 143, Potassium Level 3.8, Chloride Level 110H, Carbon Dioxide Level 22, Anion Gap 11, Blood Urea Nitrogen 12, Creatinine 1.0, Estimat Glomerular Filtration Rate > 60, Glucose Level 99, Calcium Level 8.8, Phosphorus Level 2.9, Magnesium Level 1.9 Height (Feet): 5 Height (Inches): 5.00 Weight (Pounds): 153 General Appearance: no apparent distress Objective no change Hayden Andres MD November 23, 2018 11:59
[2018-11-23 12:00] VITALS: BP 117/60
--- NOTE | 2018-11-23 12:45 | Pulmonology Progress Note ---
Assessment/Plan Problems: (1) Sepsis (2) ATN (acute tubular necrosis) (3) Intractable abdominal pain (4) Diarrhea (5) History of rectal cancer (6) C. difficile colitis (7) Severe protein-calorie malnutrition (8) HIV (human immunodeficiency virus infection) Assessment/Plan cdiff is negative indium scan in process CD4 count noted, it is 17 improving wants to go home iv fluids iv abx check cultures check electrolytes f/u cardiology recommendations Subjective ROS Limited/Unobtainable: No Constitutional: Reports: no symptoms HEENT: Repors: no symptoms Respiratory: Reports: no symptoms Allergies: Coded Allergies: CODEINE (Unverified Allergy, Unknown, 11/28/17) EMTRICITABINE (Verified Allergy, Unknown, anxiousness, 08/31/18) SULFAMETHOXAZOLE (Unverified Allergy, Unknown, 10/27/17) TENOFOVIR (Verified Allergy, Unknown, anxiousness, 08/31/18) TRIMETHOPRIM (Unverified Allergy, Unknown, 10/27/17) Objective Last 24 Hour Vital Signs Date Time Temp Pulse Resp B/P (MAP) Pulse Ox O2 Delivery O2 Flow Rate FiO2 11/23/18 09:42 102 110/69 11/23/18 09:42 102 110/69 11/23/18 08:00 100.0 102 19 110/69 (83) 96 11/23/18 04:00 112 11/23/18 04:00 97.7 101 19 142/72 (95) 95 11/23/18 00:00 81 11/23/18 00:00 97.3 89 20 141/82 (101) 96 11/22/18 21:00 Room Air 11/22/18 20:01 106 18 98 Room Air 21 11/22/18 20:00 98 11/22/18 20:00 98.2 99 20 122/71 (88) 94 11/22/18 17:16 98.0 11/22/18 16:00 98.0 81 18 136/74 (94) 97 11/22/18 16:00 95 Intake and Output 11/22/18 11/23/18 19:00 07:00 Output Total 600 ml 400 ml Balance -600 ml -400 ml Output Urine Total 600 ml 400 ml # Bowel Movements 4 Objective indium scan in process General Appearance: WD/WN HEENT: normocephalic, atraumatic Respiratory/Chest: chest wall non-tender, normal breath sounds Cardiovascular: normal peripheral pulses, regular rhythm, no JVD Abdomen: soft, non tender, no organomegaly Microbiology Date/Time Source Procedure Growth Status 11/21/18 17:40 Blood Blood Culture - Preliminary NO GROWTH AFTER 24 HOURS Resulted 11/21/18 17:25 Blood Blood Culture - Preliminary NO GROWTH AFTER 24 HOURS Resulted 11/21/18 08:09 Stool Stool Culture - Preliminary NO SALMONELLA,SHIGELLA,OR CAMPYLOBACT... Resulted 11/21/18 08:09 Stool Clostridium difficile Toxin Assay - Final Resulted Laboratory Tests 11/23/18 06:35: White Blood Count 8.4, Red Blood Count 3.80L, Hemoglobin 12.1L, Hematocrit 35.2L , Mean Corpuscular Volume 93, Mean Corpuscular Hemoglobin 31.8H, Mean Corpuscular Hemoglobin Concent 34.4, Red Cell Distribution Width 11.6, Platelet Count 234, Mean Platelet Volume 7.6, Neutrophils (%) (Auto) 64.9, Lymphocytes (% ) (Auto) 25.3, Monocytes (%) (Auto) 7.5, Eosinophils (%) (Auto) 1.5, Basophils ( %) (Auto) 0.8, Sodium Level 143, Potassium Level 3.8, Chloride Level 110H, Carbon Dioxide Level 22, Anion Gap 11, Blood Urea Nitrogen 12, Creatinine 1.0, Estimat Glomerular Filtration Rate > 60, Glucose Level 99, Calcium Level 8.8, Phosphorus Level 2.9, Magnesium Level 1.9 Current Medications Medications (Trade) Dose Ordered Sig/Roman Route PRN Reason Start Time Stop Time Status Last Admin Dose Admin Acetaminophen (Tylenol) 650 mg Q4H PRN ORAL fever 11/17/18 23:00 12/17/18 22:59 11/21/18 04:45 Baclofen (Lioresal) 10 mg THREE TIMES A DAY ORAL 11/18/18 09:00 12/18/18 08:59 11/22/18 18:35 Cefepime HCl 2 gm/ Dextrose 110 ml @ 220 mls/hr Q12HR@0300,1500 IV 11/18/18 03:00 11/25/18 02:59 11/23/18 02:33 Dextrose (Dextrose 50%) STAT PRN IV Hypoglycemia 11/17/18 23:00 12/17/18 22:59 Diltiazem HCl (Cardizem CD) 120 mg DAILY ORAL 11/23/18 09:00 12/23/18 08:59 11/23/18 09:42 Diltiazem HCl (Cardizem CD) 180 mg DAILY ORAL 11/23/18 09:00 12/23/18 08:59 11/23/18 09:42 Heparin Sodium (Porcine) (Heparin 5000 units/ml) 5,000 units EVERY 12 HOURS SUBQ 11/18/18 09:00 12/18/18 08:59 11/23/18 09:44 Levothyroxine Sodium (Synthroid) 25 mcg DAILY@0630 ORAL 11/18/18 06:30 12/18/18 06:29 11/23/18 06:00 Loperamide HCl (Imodium) 2 mg Q6H PRN ORAL Diarrhea 11/20/18 12:30 12/20/18 12:29 11/23/18 09:42 Metoprolol Tartrate (Lopressor) 5 mg Q4H PRN IVP HR >110 11/20/18 02:15 12/20/18 02:14 11/20/18 08:29 Metronidazole (Flagyl) 500 mg Q8HR ORAL 11/18/18 14:00 11/25/18 13:59 11/23/18 06:00 Mirtazapine (Remeron) 15 mg BEDTIME ORAL 11/18/18 21:00 12/18/18 20:59 11/22/18 21:05 Morphine Sulfate (Morphine Sulfate) 2 mg Q4H PRN IVP Moderate Pain (Pain Scale 4-6) 11/17/18 23:00 11/24/18 22:59 11/23/18 02:34 Ondansetron HCl (Zofran) 4 mg Q6H PRN IVP Nausea & Vomiting 11/17/18 23:00 12/17/18 22:59 11/22/18 12:31 Oxycodone/ Acetaminophen (Percocet 10/325) 1 tab Q4H PRN ORAL Severe Breakthru Pain (>7) 11/18/18 10:45 11/24/18 22:44 11/22/18 16:46 Paroxetine HCl (Paxil) 40 mg DAILY ORAL 11/18/18 09:00 12/18/18 08:59 11/22/18 09:20 Patient Own Medication (Patient's Own Med) 1 ea BID@0900,1800 ORAL 11/23/18 09:00 12/23/18 08:59 Patient Own Medication (Patient's Own Med) 1 ea DAILY ORAL 11/23/18 09:00 12/23/18 08:59 Patient Own Medication (Patient's Own Med) 1 ea DAILY@0800 ORAL 11/23/18 08:00 12/23/18 07:59 Phosphorus (Phospha 250 Neutral) 500 mg THREE TIMES A DAY ORAL 11/22/18 18:00 12/22/18 17:59 11/22/18 18:35 Tamsulosin HCl (Flomax) 0.4 mg BID ORAL 11/19/18 18:00 12/18/18 20:59 11/22/18 18:37 Temazepam (Restoril) 15 mg HSPRN PRN ORAL Insomnia 11/17/18 23:00 11/24/18 22:59 Oliverio Rm MD November 23, 2018 12:45
--- NOTE | 2018-11-23 12:46 | NUR ---
*-* INSURANCE *-* ALL CLINICALS AND REVIEWS HAVE BEEN FAXED TO: [facility]REFERRED [employer] NCM: LIZETH P: N/A F:[phone] FAX CLINICALS
--- NOTE | 2018-11-23 13:07 | NUR ---
NURSE NOTES: pt leaving the unit to continue a test that was started yesterday.
--- NOTE | 2018-11-23 14:01 | NUR ---
WBC Scan complete.
--- NOTE | 2018-11-23 14:25 | Infectious Diseases Prog Note ---
Assessment/Plan Assessment/Plan Assessment: Sepsis, unclear source- ?intraabdominal source- r/o bacteremia- ?kidney stone- US shows resolution of hydronephrosis -Renal US: Interval resolution of right hydronephrosis compared to CT from . 6 mm calcification posterior and lateral to the bladder right of midline. This is likely a phlebolith given presence of a right ureteral jet and absence of hydronephrosis. Multiple cysts within the left kidney -CT abd/p w/: Mild right hydroureteronephrosis. An obstructing stone is not definitely seen.However there is a tiny punctate calcification about 1 mm probably within the right distal ureter.Mild to moderate stool. Cysts within the left kidney. Small umbilical hernia containing fat -u/a neg -Bcx NTD -CXR No acute disease -amylase, lipase normal -Echo no vegetations seen Fever; improving Mild leukocytosis, SP Diarrhea -stool cx usual enteric thomas -Cdiff neg HARVINDER, improving ?Recent dx of Rectal CA at [facility]-obtain records hx of Cdiff 09/2018- no diarrhea currently - failed oral vancomycin; sp tx w/ Fidaxomicin --09/06 Cdiff toxin a/b +; repeat Cdiff neg x2 -09/06 SP Colonoscopy: proctitis -stool cx: normal thomas -Giardia ag, cryptosporidium neg Hx of UTI 08/2018 -u/a wbc 10-15, shirley neg, leuk +3; ucx >100K PROTEUS MIRABILIS ( I Levo; R Amp, bactrim, Cipro, Nitro; S Ceftriaxone) HIV/AIDS- on ARV -11/19 CD4 392 (17.4%) -09/2018 182 (10.1%), VL UD -11/2017 CD4 323 hx of rectal CA CVA 2004 HTN Plan: -Continue Cefepime #6 (abx d #7) and add Flagyl #6 for anaerobic coverage pending cultures -11/22 SP IV Vancomycin #6 -11/17 SP Zosyn x1 -09/23 SP Fidaxomicin #10 -09/13/18 SP PO Vancomycin #8 -f/u cx -Monitor CBC/CMP, temperatures -aspiration precautions -Cont ARV: Genvoya, Prezista, Intelence -f/u WBC scan to eval for occult infection Thank you for this consultation. Will continue to follow along with you. Discussed with RN, inpt and outpt pharmacist Subjective Allergies: Coded Allergies: CODEINE (Unverified Allergy, Unknown, 11/28/17) EMTRICITABINE (Verified Allergy, Unknown, anxiousness, 08/31/18) SULFAMETHOXAZOLE (Unverified Allergy, Unknown, 10/27/17) TENOFOVIR (Verified Allergy, Unknown, anxiousness, 08/31/18) TRIMETHOPRIM (Unverified Allergy, Unknown, 10/27/17) Subjective Tm 100.1 no leukocytosis Bcx NTD Objective Vital Signs Last 24 Hour Vital Signs Date Time Temp Pulse Resp B/P (MAP) Pulse Ox O2 Delivery O2 Flow Rate FiO2 11/23/18 12:00 100.1 109 20 117/60 (79) 96 11/23/18 12:00 107 11/23/18 10:16 89 18 98 Room Air 21 11/23/18 09:42 102 110/69 11/23/18 09:42 102 110/69 11/23/18 09:00 Room Air 11/23/18 08:00 100.0 102 19 110/69 (83) 96 11/23/18 08:00 102 11/23/18 04:00 112 11/23/18 04:00 97.7 101 19 142/72 (95) 95 11/23/18 00:00 81 11/23/18 00:00 97.3 89 20 141/82 (101) 96 11/22/18 21:00 Room Air 11/22/18 20:01 106 18 98 Room Air 21 11/22/18 20:00 98 11/22/18 20:00 98.2 99 20 122/71 (88) 94 11/22/18 17:16 98.0 11/22/18 16:00 98.0 81 18 136/74 (94) 97 11/22/18 16:00 95 Height (Feet): 5 Height (Inches): 5.00 Weight (Pounds): 153 Objective Abx: IV Vancomycin 11/17- Zosyn x1 11/17 Cefepime 11/18- Assessment: Sepsis- ?intraabdominal source- r/o bacteremia, PNA- ?kidney stone -CT abd/p w/: Mild right hydroureteronephrosis. An obstructing stone is not definitely seen.However there is a tiny punctate calcification about 1 mm probably within the right distal ureter.Mild to moderate stool. Cysts within the left kidney. Small umbilical hernia containing fat -u/a neg -Bcx p -CXR p Fever No leukocytosis HARVINDER, improving ?Recent dx of Rectal CA at [facility]-obtain records hx of Cdiff 09/2018 - failed oral vancomycin; sp tx w/ Fidaxomicin --09/06 Cdiff toxin a/b +; repeat Cdiff neg x2 -09/06 SP Colonoscopy: proctitis -stool cx: normal thomas -Giardia ag, cryptosporidium neg Hx of UTI 08/2018 -u/a wbc 10-15, shirley neg, leuk +3; ucx >100K PROTEUS MIRABILIS ( I Levo; R Amp, bactrim, Cipro, Nitro; S Ceftriaxone) HIV/AIDS- on ARV -09/2018 182 (10.1%), VL UD -11/2017 CD4 323 hx of rectal CA CVA 2004 HTN Plan: -Continue empiric IV Vancomycin #2, Cefepime #1 (abx d #2) and add Flagyl for anaerobic coverage pending cultures -09/23 SP Fidaxomicin #10 -09/13/18 SP PO Vancomycin #8 -f/u cx -Monitor CBC/CMP, temperatures -aspiration precautions -continue ARV- will clarify regimen w/ Dr Hannah Trinh (His HIV provider) [phone] prior to resuming ARV as there is confusion as of what medicines patient is currently taking -CD4 am Thank you for this consultation. Will continue to follow along with you. Discussed with RN. Microbiology Date/Time Source Procedure Growth Status 11/21/18 17:40 Blood Blood Culture - Preliminary NO GROWTH AFTER 24 HOURS Resulted 11/21/18 17:25 Blood Blood Culture - Preliminary NO GROWTH AFTER 24 HOURS Resulted 11/21/18 08:09 Stool Stool Culture - Preliminary NO SALMONELLA,SHIGELLA,OR CAMPYLOBACT... Resulted 11/21/18 08:09 Stool Clostridium difficile Toxin Assay - Final Resulted Laboratory Tests Test 11/23/18 06:35 White Blood Count 8.4 K/UL (4.8-10.8) Red Blood Count 3.80 M/UL (4.70-6.10) L Hemoglobin 12.1 G/DL (14.2-18.0) L Hematocrit 35.2 % (42.0-52.0) L Mean Corpuscular Volume 93 FL (80-99) Mean Corpuscular Hemoglobin 31.8 PG (27.0-31.0) H Mean Corpuscular Hemoglobin Concent 34.4 G/DL (32.0-36.0) Red Cell Distribution Width 11.6 % (11.6-14.8) Platelet Count 234 K/UL (150-450) Mean Platelet Volume 7.6 FL (6.5-10.1) Neutrophils (%) (Auto) 64.9 % (45.0-75.0) Lymphocytes (%) (Auto) 25.3 % (20.0-45.0) Monocytes (%) (Auto) 7.5 % (1.0-10.0) Eosinophils (%) (Auto) 1.5 % (0.0-3.0) Basophils (%) (Auto) 0.8 % (0.0-2.0) Sodium Level 143 MMOL/L (136-145) Potassium Level 3.8 MMOL/L (3.5-5.1) Chloride Level 110 MMOL/L (98-107) H Carbon Dioxide Level 22 MMOL/L (21-32) Anion Gap 11 mmol/L (5-15) Blood Urea Nitrogen 12 mg/dL (7-18) Creatinine 1.0 MG/DL (0.55-1.30) Estimat Glomerular Filtration Rate > 60 mL/min (>60) Glucose Level 99 MG/DL (74-106) Calcium Level 8.8 MG/DL (8.5-10.1) Phosphorus Level 2.9 MG/DL (2.5-4.9) Magnesium Level 1.9 MG/DL (1.8-2.4) Current Medications Medications (Trade) Dose Ordered Sig/Roman Route PRN Reason Start Time Stop Time Status Last Admin Dose Admin Acetaminophen (Tylenol) 650 mg Q4H PRN ORAL fever 11/17/18 23:00 12/17/18 22:59 11/23/18 12:51 Baclofen (Lioresal) 10 mg THREE TIMES A DAY ORAL 11/18/18 09:00 12/18/18 08:59 11/22/18 18:35 Cefepime HCl 2 gm/ Dextrose 110 ml @ 220 mls/hr Q12HR@0300,1500 IV 11/18/18 03:00 11/25/18 02:59 11/23/18 02:33 Dextrose (Dextrose 50%) STAT PRN IV Hypoglycemia 11/17/18 23:00 12/17/18 22:59 Diltiazem HCl (Cardizem CD) 120 mg DAILY ORAL 11/23/18 09:00 12/23/18 08:59 11/23/18 09:42 Diltiazem HCl (Cardizem CD) 180 mg DAILY ORAL 11/23/18 09:00 12/23/18 08:59 11/23/18 09:42 Heparin Sodium (Porcine) (Heparin 5000 units/ml) 5,000 units EVERY 12 HOURS SUBQ 11/18/18 09:00 12/18/18 08:59 11/23/18 09:44 Levothyroxine Sodium (Synthroid) 25 mcg DAILY@0630 ORAL 11/18/18 06:30 12/18/18 06:29 11/23/18 06:00 Loperamide HCl (Imodium) 2 mg Q6H PRN ORAL Diarrhea 11/20/18 12:30 12/20/18 12:29 11/23/18 09:42 Metoprolol Tartrate (Lopressor) 5 mg Q4H PRN IVP HR >110 11/20/18 02:15 12/20/18 02:14 11/20/18 08:29 Metronidazole (Flagyl) 500 mg Q8HR ORAL 11/18/18 14:00 11/25/18 13:59 11/23/18 06:00 Mirtazapine (Remeron) 15 mg BEDTIME ORAL 11/18/18 21:00 12/18/18 20:59 11/22/18 21:05 Morphine Sulfate (Morphine Sulfate) 2 mg Q4H PRN IVP Moderate Pain (Pain Scale 4-6) 11/17/18 23:00 11/24/18 22:59 11/23/18 02:34 Ondansetron HCl (Zofran) 4 mg Q6H PRN IVP Nausea & Vomiting 11/17/18 23:00 12/17/18 22:59 11/22/18 12:31 Oxycodone/ Acetaminophen (Percocet 10/325) 1 tab Q4H PRN ORAL Severe Breakthru Pain (>7) 11/18/18 10:45 11/24/18 22:44 11/22/18 16:46 Paroxetine HCl (Paxil) 40 mg DAILY ORAL 11/18/18 09:00 12/18/18 08:59 11/22/18 09:20 Patient Own Medication (Patient's Own Med) 1 ea BID@0900,1800 ORAL 11/23/18 09:00 12/23/18 08:59 Patient Own Medication (Patient's Own Med) 1 ea DAILY ORAL 11/23/18 09:00 12/23/18 08:59 Patient Own Medication (Patient's Own Med) 1 ea DAILY@0800 ORAL 11/23/18 08:00 12/23/18 07:59 Phosphorus (Phospha 250 Neutral) 500 mg THREE TIMES A DAY ORAL 11/22/18 18:00 12/22/18 17:59 11/22/18 18:35 Tamsulosin HCl (Flomax) 0.4 mg BID ORAL 11/19/18 18:00 12/18/18 20:59 11/22/18 18:37 Temazepam (Restoril) 15 mg HSPRN PRN ORAL Insomnia 11/17/18 23:00 11/24/18 22:59 Miranda Cordero M.D. November 23, 2018 14:25
--- NOTE | 2018-11-23 14:28 | Diagnostic Imaging Report ---
Indication: 68-year-old male with leukocytosis and fever of unknown origin Technique: 468 microcuries of Indium labelled WBCs was injected intravenously. Labelling performed using an in-vitro technique. A whole-body bone scan was then performed in anterior and posterior projections after a 24 hour delay. Comparison: None Findings: . Normal uptake is demonstrated throughout the body. Impression: Normal whole body WBC scan
[2018-11-23 16:00] VITALS: BP 131/71
--- NOTE | 2018-11-23 16:59 | Internal Med Progress Note ---
Subjective Date of Service: November 23, 2018 Physician Name Trey Whitaker Attending Physician Carlos Barragan MD Current Medications Medications (Trade) Dose Ordered Sig/Roman Route PRN Reason Start Time Stop Time Status Last Admin Dose Admin Acetaminophen (Tylenol) 650 mg Q4H PRN ORAL fever 11/17/18 23:00 12/17/18 22:59 11/23/18 16:46 Baclofen (Lioresal) 10 mg THREE TIMES A DAY ORAL 11/18/18 09:00 12/18/18 08:59 11/23/18 15:02 Cefepime HCl 2 gm/ Dextrose 110 ml @ 220 mls/hr Q12HR@0300,1500 IV 11/18/18 03:00 11/25/18 02:59 11/23/18 02:33 Dextrose (Dextrose 50%) STAT PRN IV Hypoglycemia 11/17/18 23:00 12/17/18 22:59 Diltiazem HCl (Cardizem CD) 120 mg DAILY ORAL 11/23/18 09:00 12/23/18 08:59 11/23/18 09:42 Diltiazem HCl (Cardizem CD) 180 mg DAILY ORAL 11/23/18 09:00 12/23/18 08:59 11/23/18 09:42 Heparin Sodium (Porcine) (Heparin 5000 units/ml) 5,000 units EVERY 12 HOURS SUBQ 11/18/18 09:00 12/18/18 08:59 11/23/18 09:44 Levothyroxine Sodium (Synthroid) 25 mcg DAILY@0630 ORAL 11/18/18 06:30 12/18/18 06:29 11/23/18 06:00 Loperamide HCl (Imodium) 2 mg Q6H PRN ORAL Diarrhea 11/20/18 12:30 12/20/18 12:29 11/23/18 09:42 Metoprolol Tartrate (Lopressor) 5 mg Q4H PRN IVP HR >110 11/20/18 02:15 12/20/18 02:14 11/20/18 08:29 Metronidazole (Flagyl) 500 mg Q8HR ORAL 11/18/18 14:00 11/25/18 13:59 11/23/18 06:00 Mirtazapine (Remeron) 15 mg BEDTIME ORAL 11/18/18 21:00 12/18/18 20:59 11/22/18 21:05 Morphine Sulfate (Morphine Sulfate) 2 mg Q4H PRN IVP Moderate Pain (Pain Scale 4-6) 11/17/18 23:00 11/24/18 22:59 11/23/18 02:34 Ondansetron HCl (Zofran) 4 mg Q6H PRN IVP Nausea & Vomiting 11/17/18 23:00 12/17/18 22:59 11/22/18 12:31 Oxycodone/ Acetaminophen (Percocet 10/325) 1 tab Q4H PRN ORAL Severe Breakthru Pain (>7) 11/18/18 10:45 11/24/18 22:44 11/22/18 16:46 Paroxetine HCl (Paxil) 40 mg DAILY ORAL 11/18/18 09:00 12/18/18 08:59 11/22/18 09:20 Patient Own Medication (Patient's Own Med) 1 ea BID@0900,1800 ORAL 11/23/18 09:00 12/23/18 08:59 Patient Own Medication (Patient's Own Med) 1 ea DAILY ORAL 11/23/18 09:00 12/23/18 08:59 Patient Own Medication (Patient's Own Med) 1 ea DAILY@0800 ORAL 11/23/18 08:00 12/23/18 07:59 Phosphorus (Phospha 250 Neutral) 500 mg THREE TIMES A DAY ORAL 11/22/18 18:00 12/22/18 17:59 11/23/18 15:02 Tamsulosin HCl (Flomax) 0.4 mg BID ORAL 11/19/18 18:00 12/18/18 20:59 11/22/18 18:37 Temazepam (Restoril) 15 mg HSPRN PRN ORAL Insomnia 11/17/18 23:00 11/24/18 22:59 Allergies: Coded Allergies: CODEINE (Unverified Allergy, Unknown, 11/28/17) EMTRICITABINE (Verified Allergy, Unknown, anxiousness, 08/31/18) SULFAMETHOXAZOLE (Unverified Allergy, Unknown, 10/27/17) TENOFOVIR (Verified Allergy, Unknown, anxiousness, 08/31/18) TRIMETHOPRIM (Unverified Allergy, Unknown, 10/27/17) ROS Limited/Unobtainable: No Constitutional: Reports: fever HEENT: Reports: no symptoms Cardiovascular: Reports: no symptoms Respiratory: Reports: no symptoms Gastrointestinal/Abdominal: Reports: no symptoms Genitourinary: Reports: no symptoms 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: Reports: no symptoms Subjective 68 YO M admitted with constipation rectal bleeding. Cover for Int Arun-Dr Barragan. Low grade fever Objective Last Vital Signs Date Time Temp Pulse Resp B/P (MAP) Pulse Ox O2 Delivery O2 Flow Rate FiO2 11/23/18 13:21 98.0 11/23/18 12:00 109 20 117/60 (79) 96 11/23/18 10:16 Room Air 21 Laboratory Tests Test 11/23/18 06:35 White Blood Count 8.4 K/UL (4.8-10.8) Red Blood Count 3.80 M/UL (4.70-6.10) L Hemoglobin 12.1 G/DL (14.2-18.0) L Hematocrit 35.2 % (42.0-52.0) L Mean Corpuscular Volume 93 FL (80-99) Mean Corpuscular Hemoglobin 31.8 PG (27.0-31.0) H Mean Corpuscular Hemoglobin Concent 34.4 G/DL (32.0-36.0) Red Cell Distribution Width 11.6 % (11.6-14.8) Platelet Count 234 K/UL (150-450) Mean Platelet Volume 7.6 FL (6.5-10.1) Neutrophils (%) (Auto) 64.9 % (45.0-75.0) Lymphocytes (%) (Auto) 25.3 % (20.0-45.0) Monocytes (%) (Auto) 7.5 % (1.0-10.0) Eosinophils (%) (Auto) 1.5 % (0.0-3.0) Basophils (%) (Auto) 0.8 % (0.0-2.0) Sodium Level 143 MMOL/L (136-145) Potassium Level 3.8 MMOL/L (3.5-5.1) Chloride Level 110 MMOL/L (98-107) H Carbon Dioxide Level 22 MMOL/L (21-32) Anion Gap 11 mmol/L (5-15) Blood Urea Nitrogen 12 mg/dL (7-18) Creatinine 1.0 MG/DL (0.55-1.30) Estimat Glomerular Filtration Rate > 60 mL/min (>60) Glucose Level 99 MG/DL (74-106) Calcium Level 8.8 MG/DL (8.5-10.1) Phosphorus Level 2.9 MG/DL (2.5-4.9) Magnesium Level 1.9 MG/DL (1.8-2.4) Microbiology Date/Time Source Procedure Growth Status 11/21/18 17:40 Blood Blood Culture - Preliminary NO GROWTH AFTER 24 HOURS Resulted 11/21/18 17:25 Blood Blood Culture - Preliminary NO GROWTH AFTER 24 HOURS Resulted 11/21/18 08:09 Stool Stool Culture - Preliminary NO SALMONELLA,SHIGELLA,OR CAMPYLOBACT... Resulted 11/21/18 08:09 Stool Clostridium difficile Toxin Assay - Final Resulted Intake and Output 11/22/18 11/23/18 19:00 07:00 Output Total 600 ml 400 ml Balance -600 ml -400 ml Output Urine Total 600 ml 400 ml # Bowel Movements 4 Objective PHYSICAL EXAMINATION: GENERAL: The patient is a well-developed and well-nourished white male, in no apparent distress. HEENT: Eyes, pupils equal and responsive to light and accommodation. Extraocular movements are intact. NECK: Supple without lymphadenopathy. CHEST: Lungs are clear to auscultation bilaterally without wheezes or rales. CARDIOVASCULAR: Regular rhythm and rate. S1 and S2 are normal without murmurs, rubs, or gallops. ABDOMEN: Soft, nontender, and nondistended. Positive bowel sounds. No evidence of hepatosplenomegaly. Currently, no rebound or guarding noted. EXTREMITIES: Negative for clubbing, cyanosis, or edema. RECTAL/GENITAL: Refused. NEUROLOGIC: Cranial nerves II through XII are grossly intact without focal deficits. Motor strength is 5/5 bilaterally. Deep tendon reflexes are 2+ plantar. Assessment/Plan Assessment/Plan ASSESSMENT: This is a 68-year-old white male. 1. Left abdominal pain. 2. Constipation. 3. Rectal bleeding. 4. Left hydronephrosis. 5. Hypertension. 6. HIV. 7. Hypothyroidism. 8. History of rectal cancer. 9. Cerebrovascular disease. 10. Major depression. 11. Anxiety. 12. Benign prostatic hypertrophy. 13. Paroxysmal supraventricular tachycardia TREATMENT: 1. Constipation/abdominal pain/rectal hemorrhage. Gastroenterology consultation with Dr. Dejan Germain. S/P colonoscopy 09/18. C.Diff = neg 2. Right hydronephrosis. There is no definite stone seen. The patient may have passed a renal calculus. 3. Hypertension. Continue metoprolol and amlodipine as above. 4. HIV. Continue HAART per Infectious Disease. 5. Hypothyroidism. Continue Levoxyl as above. 6. History of rectal cancer. The patient is status post biopsy at [facility]. 7. Cerebrovascular disease. 8. Major depression. Continue Paxil as above. 9. Anxiety. 10. Benign prostatic hypertrophy. Continue Flomax and oxybutynin as above. 11. Await cardiology consult 12. Abx=flagyl and cefepime per Trey Echavarria MD November 23, 2018 16:59
--- NOTE | 2018-11-23 19:59 | NUR ---
NURSE NOTES: BEDSIDE REPORT RECEIVED FROM CHARLEY DELVALLE. PT IS RESTING IN BED, RR EVEN AND UNLABORED. 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 SKIN IS CLEAN, DRY, DRESSINGS INTACT. LH 22 ASYMPTOMATIC. BED IS LOCKED IN LOWEST POSITION, SR X3, CALL TURNER W/ IN REACH, BED ALARM ON. WILL CONTINUE TO MONITOR AND FOLLOW W/ PLAN OF CARE.
[2018-11-23 20:00] VITALS: BP 160/84
--- NOTE | 2018-11-23 20:27 | NUR ---
HAND-OFF: Report given to Cuauhtemoc Krause RN.
--- NOTE | 2018-11-23 20:33 | NUR ---
HAND-OFF: Report given to Cuauhtemoc Krause Pt has been refusing mostly all his meds and antibiotics because he is not eating and he also has been having diarrhea. nubia Luis is aware. Also pt has been running a fever of 100.4-101.4 tylenol has been given as well as cooling measures.
--- NOTE | 2018-11-23 23:12 | NUR ---
HAND-OFF: Report given to CHARLEY GAMEZ. PT STABLE, SKIN CLEAN, DRY, VSS.
--- NOTE | 2018-11-23 23:46 | NUR ---
NURSE NOTES: Report received from CHARLEY Sanchez. Pt in stable condition. Pt belongings verified. Bed in the lowest position, bed brakes engaged, side rails up x3 and call light within reach. Will continue to monitor.
[2018-11-24] VITALS (7 sets, daily range): BP systolic 116–151; BP diastolic 82–98
[2018-11-24] MEDS: Cefepime HCl 2 GM in D5W 110 ML IV SCH ×2 (03:23→15:35)
[2018-11-24] MEDS: metroNIDAZOLE 500mg tab ORAL SCH ×3 (05:27→20:57)
[2018-11-24] MEDS: Levothyroxine 25mcg tab ORAL SCH (05:30)
[2018-11-24] MEDS: Loperamide 2mg cap ORAL PRN ×2 (06:42→17:19)
[2018-11-24] MEDS ORDERED: Morphine Sulfate 2mg/ml Inj(IV/IM USE ONLY) IVP PRN (07:00)
[2018-11-24 07:36] LABS: BASOPHILS % (AUTO) 0.6 % (0.0-2.0); EOSINOPHILS % (AUTO) 1.6 % (0.0-3.0); HEMATOCRIT 36.9 % (42.0-52.0); HEMOGLOBIN 12.8 G/DL (14.2-18.0); LYMPHOCYTES % (AUTO) 33.5 % (20.0-45.0); MEAN CORPUSCULAR VOLUME 92 FL (80-99); MONOCYTES % (AUTO) 6.8 % (1.0-10.0); NEUTROPHILS % (AUTO) 57.6 % (45.0-75.0); PLATELET COUNT 229 K/UL (150-450); RED BLOOD COUNT 3.99 M/UL (4.70-6.10); RED CELL DISTRIBUTION WIDTH 11.5 % (11.6-14.8)
[2018-11-24 08:08] LABS: ANION GAP 11 mmol/L (5-15); BLOOD UREA NITROGEN 14 mg/dL (7-18); CALCIUM 9.2 MG/DL (8.5-10.1); CARBON DIOXIDE 23 MMOL/L (21-32); CHLORIDE 108 MMOL/L (98-107); POTASSIUM 3.4 MMOL/L (3.5-5.1); SODIUM 142 MMOL/L (136-145)
[2018-11-24] MEDS: dilTIAZem HCl CD 180mg cap ORAL SCH (08:53)
[2018-11-24] MEDS: Phospha 250 Neutral tab ORAL SCH ×3 (08:54→17:19)
[2018-11-24] MEDS: Tamsulosin 0.4mg cap ORAL SCH ×2 (08:54→17:22)
[2018-11-24] MEDS: PARoxetine 20mg tab ORAL SCH (08:54)
[2018-11-24] MEDS: Heparin 5000 units/ml inj SUBQ SCH ×2 (08:56→21:04)
[2018-11-24] MEDS: dilTIAZem HCl CD 120mg cap ORAL SCH (09:00)
[2018-11-24] MEDS ORDERED: COBICISTAT ORAL SCH (09:00)
[2018-11-24] MEDS ORDERED: EMTRICITABINE TENOFOVIR ORAL SCH (09:00)
[2018-11-24] MEDS ORDERED: GENVOYA ORAL SCH (09:00)
--- NOTE | 2018-11-24 09:35 | GI Progress Note ---
Assessment/Plan Problems: (1) Severe protein-calorie malnutrition ICD Codes: E43 - Unspecified severe protein-calorie malnutrition SNOMED: 463469611 (2) History of rectal cancer ICD Codes: Z85.048 - Personal history of other malignant neoplasm of rectum, rectosigmoid junction, and anus SNOMED: 395523826 (3) Intractable abdominal pain ICD Codes: R10.9 - Unspecified abdominal pain SNOMED: 49197480, 152415979 Status: stable, progressing Status Narrative Discussed with Dr. Germain. Assessment/Plan Status post colonoscopy in September 2018 1. Focal proctitis suspicious for C. diff versus ulcerative colitis, status post biopsy. 2. Status post biopsy of the right and left colon to evaluate microscopic colitis. >> negative Rectal bleeding resolved Stable H&H C. difficile negative x2 Stool culture reviewed, gram-negative bacillus Advance diet as tolerated bowel regimen, hold stool softeners and laxatives increased lomotil for persistent diarrhea obtain records from [facility] monitor H&H fu ID recs Electrolyte correction Follow labs PPI The patient was seen and examined at bedside and all new and available data was reviewed in the patients chart. I agree with the above findings, impression and plan. (Patient seen earlier today. Signature stamp does not reflect patient encounter time.). - Dejan Germain MD Subjective Subjective Rectal bleeding resolved continues to complain of diarrhea, has not improved with medication Objective Last 24 Hour Vital Signs Date Time Temp Pulse Resp B/P (MAP) Pulse Ox O2 Delivery O2 Flow Rate FiO2 11/24/18 09:13 Room Air 11/24/18 08:53 82 116/95 11/24/18 08:16 98.4 11/24/18 08:05 87 18 98 Room Air 21 11/24/18 08:00 98.4 82 18 116/95 (102) 99 11/24/18 04:00 100.2 106 18 124/82 (96) 94 11/24/18 00:00 98.7 95 18 131/92 (105) 94 11/23/18 23:48 98.7 11/23/18 21:00 Room Air 11/23/18 20:00 78 11/23/18 20:00 97.2 89 17 160/84 (109) 96 11/23/18 17:16 98.7 11/23/18 16:00 85 11/23/18 16:00 101.4 92 20 131/71 (91) 92 11/23/18 12:00 100.1 109 20 117/60 (79) 96 11/23/18 12:00 107 11/23/18 10:16 89 18 98 Room Air 21 11/23/18 09:42 102 110/69 11/23/18 09:42 102 110/69 Intake and Output 11/23/18 11/24/18 18:59 06:59 Intake Total 120 ml Balance 120 ml Intake Oral 120 ml # Voids 1 # Bowel Movements 2 Laboratory Tests Test 11/24/18 06:10 White Blood Count 8.0 K/UL (4.8-10.8) Red Blood Count 3.99 M/UL (4.70-6.10) L Hemoglobin 12.8 G/DL (14.2-18.0) L Hematocrit 36.9 % (42.0-52.0) L Mean Corpuscular Volume 92 FL (80-99) Mean Corpuscular Hemoglobin 32.0 PG (27.0-31.0) H Mean Corpuscular Hemoglobin Concent 34.6 G/DL (32.0-36.0) Red Cell Distribution Width 11.5 % (11.6-14.8) L Platelet Count 229 K/UL (150-450) Mean Platelet Volume 7.0 FL (6.5-10.1) Neutrophils (%) (Auto) 57.6 % (45.0-75.0) Lymphocytes (%) (Auto) 33.5 % (20.0-45.0) Monocytes (%) (Auto) 6.8 % (1.0-10.0) Eosinophils (%) (Auto) 1.6 % (0.0-3.0) Basophils (%) (Auto) 0.6 % (0.0-2.0) Sodium Level 142 MMOL/L (136-145) Potassium Level 3.4 MMOL/L (3.5-5.1) L Chloride Level 108 MMOL/L (98-107) H Carbon Dioxide Level 23 MMOL/L (21-32) Anion Gap 11 mmol/L (5-15) Blood Urea Nitrogen 14 mg/dL (7-18) Creatinine 1.0 MG/DL (0.55-1.30) Estimat Glomerular Filtration Rate > 60 mL/min (>60) Glucose Level 101 MG/DL (74-106) Calcium Level 9.2 MG/DL (8.5-10.1) Height (Feet): 5 Height (Inches): 5.00 Weight (Pounds): 153 General Appearance: WD/WN, no apparent distress, alert Cardiovascular: normal rate Respiratory/Chest: normal breath sounds, no respiratory distress Abdominal Exam: normal bowel sounds, non tender, soft Extremities: non-tender Jasen Brink NP November 24, 2018 09:35
[2018-11-24] MEDS ORDERED: Metoprolol 5mg/5ml Inj IVP PRN (10:15)
--- NOTE | 2018-11-24 10:22 | NUR ---
NURSE NOTES: pt in bed with no sob nor in any form of distress noted. pt has on and off fever. MD is aware. Bed in lowest position. call light within reach at all time. will continue to monitor
--- NOTE | 2018-11-24 10:55 | NUR ---
*-* INSURANCE *-* UPDATED CLINICALS HAVE BEEN FAXED TO: [facility] NCM: LIZETH P: N/A F:[phone] FAX CLINICALS
--- NOTE | 2018-11-24 10:55 | NUR ---
NURSE NOTES: DAVIE Mota made aware of potassium 3.4 and received NNO.
--- NOTE | 2018-11-24 11:45 | Cardiac Electrophysiology PN ---
Assessment/Plan Assessment/Plan 1. Recurrent episodes of SVT. EF of 60%. EPS and ablation as out patient S/P multiple doses of IV metoprolol to suppress the arrhythmia. On Cardizem CD 300 daily 2. Hypertension. On Cardizem that would help the present arrhythmia. 3. HIV and AIDS. 4. Fever and Sepsis, on IV antibiotic. 5. Rectal bleeding. FU by Dr. Germain due to rectal cancer. 6. Abdominal pain. ORALIA RN Subjective Subjective No events.Off tele now. DC planning in progress Objective Last 24 Hour Vital Signs Date Time Temp Pulse Resp B/P (MAP) Pulse Ox O2 Delivery O2 Flow Rate FiO2 11/24/18 09:13 Room Air 11/24/18 08:53 82 116/95 11/24/18 08:16 98.4 11/24/18 08:05 87 18 98 Room Air 21 11/24/18 08:00 98.4 82 18 116/95 (102) 99 11/24/18 04:00 100.2 106 18 124/82 (96) 94 11/24/18 00:00 98.7 95 18 131/92 (105) 94 11/23/18 23:48 98.7 11/23/18 21:00 Room Air 11/23/18 20:00 78 11/23/18 20:00 97.2 89 17 160/84 (109) 96 11/23/18 17:16 98.7 11/23/18 16:00 85 11/23/18 16:00 101.4 92 20 131/71 (91) 92 11/23/18 12:00 100.1 109 20 117/60 (79) 96 11/23/18 12:00 107 Intake and Output 11/23/18 11/24/18 19:00 07:00 Intake Total 120 ml Balance 120 ml Intake Oral 120 ml # Voids 1 # Bowel Movements 2 Laboratory Tests Test 11/24/18 06:10 White Blood Count 8.0 K/UL (4.8-10.8) Red Blood Count 3.99 M/UL (4.70-6.10) L Hemoglobin 12.8 G/DL (14.2-18.0) L Hematocrit 36.9 % (42.0-52.0) L Mean Corpuscular Volume 92 FL (80-99) Mean Corpuscular Hemoglobin 32.0 PG (27.0-31.0) H Mean Corpuscular Hemoglobin Concent 34.6 G/DL (32.0-36.0) Red Cell Distribution Width 11.5 % (11.6-14.8) L Platelet Count 229 K/UL (150-450) Mean Platelet Volume 7.0 FL (6.5-10.1) Neutrophils (%) (Auto) 57.6 % (45.0-75.0) Lymphocytes (%) (Auto) 33.5 % (20.0-45.0) Monocytes (%) (Auto) 6.8 % (1.0-10.0) Eosinophils (%) (Auto) 1.6 % (0.0-3.0) Basophils (%) (Auto) 0.6 % (0.0-2.0) Sodium Level 142 MMOL/L (136-145) Potassium Level 3.4 MMOL/L (3.5-5.1) L Chloride Level 108 MMOL/L (98-107) H Carbon Dioxide Level 23 MMOL/L (21-32) Anion Gap 11 mmol/L (5-15) Blood Urea Nitrogen 14 mg/dL (7-18) Creatinine 1.0 MG/DL (0.55-1.30) Estimat Glomerular Filtration Rate > 60 mL/min (>60) Glucose Level 101 MG/DL (74-106) Calcium Level 9.2 MG/DL (8.5-10.1) Microbiology Date/Time Source Procedure Growth Status 11/21/18 17:40 Blood Blood Culture - Preliminary NO GROWTH AFTER 48 HOURS Resulted 11/21/18 17:25 Blood Blood Culture - Preliminary NO GROWTH AFTER 48 HOURS Resulted Objective HEAD AND NECK: No JVD. LUNGS: Clear. CARDIOVASCULAR: Regular S1 and S2 with no gallop or murmur. ABDOMEN: Soft. EXTREMITIES: No pitting edema. Abel Mendez MD November 24, 2018 11:45
--- NOTE | 2018-11-24 11:56 | Pulmonology Progress Note ---
Assessment/Plan Problems: (1) Sepsis (2) ATN (acute tubular necrosis) (3) Intractable abdominal pain (4) Diarrhea (5) History of rectal cancer (6) C. difficile colitis (7) Severe protein-calorie malnutrition (8) HIV (human immunodeficiency virus infection) Assessment/Plan still febrile indium scan in process CD4 count noted, it is 17 improving wants to go home iv fluids iv abx check cultures check electrolytes Subjective ROS Limited/Unobtainable: No Constitutional: Reports: no symptoms HEENT: Repors: no symptoms Respiratory: Reports: no symptoms Allergies: Coded Allergies: CODEINE (Unverified Allergy, Unknown, 11/28/17) EMTRICITABINE (Verified Allergy, Unknown, anxiousness, 08/31/18) SULFAMETHOXAZOLE (Unverified Allergy, Unknown, 10/27/17) TENOFOVIR (Verified Allergy, Unknown, anxiousness, 08/31/18) TRIMETHOPRIM (Unverified Allergy, Unknown, 10/27/17) Objective Last 24 Hour Vital Signs Date Time Temp Pulse Resp B/P (MAP) Pulse Ox O2 Delivery O2 Flow Rate FiO2 11/24/18 09:13 Room Air 11/24/18 08:53 82 116/95 11/24/18 08:16 98.4 11/24/18 08:05 87 18 98 Room Air 21 11/24/18 08:00 98.4 82 18 116/95 (102) 99 11/24/18 04:00 100.2 106 18 124/82 (96) 94 11/24/18 00:00 98.7 95 18 131/92 (105) 94 11/23/18 23:48 98.7 11/23/18 21:00 Room Air 11/23/18 20:00 78 11/23/18 20:00 97.2 89 17 160/84 (109) 96 11/23/18 17:16 98.7 11/23/18 16:00 85 11/23/18 16:00 101.4 92 20 131/71 (91) 92 11/23/18 12:00 100.1 109 20 117/60 (79) 96 11/23/18 12:00 107 Intake and Output 11/23/18 11/24/18 19:00 07:00 Intake Total 120 ml Balance 120 ml Intake Oral 120 ml # Voids 1 # Bowel Movements 2 Objective indium scan in process General Appearance: WD/WN Cardiovascular: normal peripheral pulses, normal rate Abdomen: normal bowel sounds, no organomegaly, no scars Extremities: no clubbing Skin: no rash 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 Lymphatic: no neck adenopathy Microbiology Date/Time Source Procedure Growth Status 11/21/18 17:40 Blood Blood Culture - Preliminary NO GROWTH AFTER 48 HOURS Resulted 11/21/18 17:25 Blood Blood Culture - Preliminary NO GROWTH AFTER 48 HOURS Resulted Laboratory Tests 11/24/18 06:10: White Blood Count 8.0, Red Blood Count 3.99L, Hemoglobin 12.8L, Hematocrit 36.9L , Mean Corpuscular Volume 92, Mean Corpuscular Hemoglobin 32.0H, Mean Corpuscular Hemoglobin Concent 34.6, Red Cell Distribution Width 11.5L, Platelet Count 229, Mean Platelet Volume 7.0, Neutrophils (%) (Auto) 57.6, Lymphocytes (%) (Auto) 33.5, Monocytes (%) (Auto) 6.8, Eosinophils (%) (Auto) 1.6, Basophils (%) (Auto) 0.6, Sodium Level 142, Potassium Level 3.4L, Chloride Level 108H, Carbon Dioxide Level 23, Anion Gap 11, Blood Urea Nitrogen 14, Creatinine 1.0, Estimat Glomerular Filtration Rate > 60, Glucose Level 101, Calcium Level 9.2 Current Medications Medications (Trade) Dose Ordered Sig/Roman Route PRN Reason Start Time Stop Time Status Last Admin Dose Admin Acetaminophen (Tylenol) 650 mg Q4H PRN ORAL fever 11/24/18 07:00 12/17/18 22:59 11/24/18 07:46 Baclofen (Lioresal) 10 mg THREE TIMES A DAY ORAL 11/24/18 09:00 12/18/18 08:59 11/24/18 08:54 Cefepime HCl 2 gm/ Dextrose 110 ml @ 220 mls/hr Q12HR@0300,1500 IV 11/24/18 15:00 11/29/18 14:59 Dextrose (Dextrose 50%) 25 ml Q30M PRN IV Hypoglycemia 11/24/18 07:00 12/24/18 06:59 Dextrose (Dextrose 50%) 50 ml Q30M PRN IV Hypoglycemia 11/24/18 07:15 12/24/18 07:14 Diltiazem HCl (Cardizem CD) 120 mg DAILY ORAL 11/24/18 09:00 12/23/18 08:59 Diltiazem HCl (Cardizem CD) 180 mg DAILY ORAL 11/24/18 09:00 12/23/18 08:59 11/24/18 08:53 Heparin Sodium (Porcine) (Heparin 5000 units/ml) 5,000 units EVERY 12 HOURS SUBQ 11/24/18 09:00 12/18/18 08:59 11/24/18 08:56 Levothyroxine Sodium (Synthroid) 25 mcg DAILY@0630 ORAL 11/25/18 06:30 12/18/18 06:29 Loperamide HCl (Imodium) 4 mg Q6H PRN ORAL Diarrhea 11/24/18 12:30 12/20/18 12:29 Metronidazole (Flagyl) 500 mg Q8HR ORAL 11/24/18 14:00 11/29/18 13:59 Mirtazapine (Remeron) 15 mg BEDTIME ORAL 11/24/18 21:00 12/18/18 20:59 Morphine Sulfate (Morphine Sulfate) 2 mg Q4H PRN IVP Moderate Pain (Pain Scale 4-6) 11/24/18 07:00 11/24/18 22:59 Ondansetron HCl (Zofran) 4 mg Q6H PRN IVP Nausea & Vomiting 11/24/18 07:00 12/17/18 06:59 Paroxetine HCl (Paxil) 40 mg DAILY ORAL 11/24/18 09:00 12/18/18 08:59 11/24/18 08:54 Patient Own Medication (Patient's Own Med) 1 ea BID@0900,1800 ORAL 11/24/18 09:00 12/23/18 08:59 11/24/18 08:55 Patient Own Medication (Patient's Own Med) 1 ea DAILY ORAL 11/24/18 09:00 12/23/18 08:59 11/24/18 08:55 Patient Own Medication (Patient's Own Med) 1 ea DAILY@0800 ORAL 11/24/18 08:00 12/23/18 07:59 11/24/18 08:55 Phosphorus (Phospha 250 Neutral) 500 mg THREE TIMES A DAY ORAL 11/24/18 09:00 12/22/18 17:59 11/24/18 08:54 Tamsulosin HCl (Flomax) 0.4 mg BID ORAL 11/24/18 09:00 12/18/18 20:59 11/24/18 08:54 Temazepam (Restoril) 15 mg HSPRN PRN ORAL Insomnia 11/24/18 07:00 12/01/18 06:59 Oliverio Rm MD November 24, 2018 11:56
[2018-11-24] MEDS ORDERED: Loperamide 2mg cap ORAL PRN (12:30)
--- NOTE | 2018-11-24 12:41 | Nephrology Progress Note ---
Assessment/Plan Problem List: (1) Sepsis (2) Fecal impaction (3) Hypokalemia (4) Hypothyroidism (5) HIV (human immunodeficiency virus infection) (6) Anemia Assessment Sepsis Possible PNA Acute kidney injury, possibly due to mild hydroureteronephrosis seen on CT scan -resolved Rectal CA, recently diagnosed HIV/AIDS Fecal retention History of CVA Hypertension Hypothyroidism Depression Hypokalemia Anemia Plan Plan: K , Phos supplement as needed stool softner Reglan as needed Gastric support Monitor lytes DC IV fluids per cardiology per orders Subjective ROS Limited/Unobtainable: No Constitutional: Reports: malaise Objective Objective Last 24 Hour Vital Signs Date Time Temp Pulse Resp B/P (MAP) Pulse Ox O2 Delivery O2 Flow Rate FiO2 11/24/18 12:00 98.8 88 18 151/98 (115) 99 11/24/18 09:13 Room Air 11/24/18 08:53 82 116/95 11/24/18 08:16 98.4 11/24/18 08:05 87 18 98 Room Air 21 11/24/18 08:00 98.4 82 18 116/95 (102) 99 11/24/18 04:00 100.2 106 18 124/82 (96) 94 11/24/18 00:00 98.7 95 18 131/92 (105) 94 11/23/18 23:48 98.7 11/23/18 21:00 Room Air 11/23/18 20:00 78 11/23/18 20:00 97.2 89 17 160/84 (109) 96 11/23/18 17:16 98.7 11/23/18 16:00 85 11/23/18 16:00 101.4 92 20 131/71 (91) 92 Intake and Output 11/23/18 11/24/18 19:00 07:00 Intake Total 120 ml Balance 120 ml Intake Oral 120 ml # Voids 1 # Bowel Movements 2 Laboratory Tests 11/24/18 06:10: White Blood Count 8.0, Red Blood Count 3.99L, Hemoglobin 12.8L, Hematocrit 36.9L , Mean Corpuscular Volume 92, Mean Corpuscular Hemoglobin 32.0H, Mean Corpuscular Hemoglobin Concent 34.6, Red Cell Distribution Width 11.5L, Platelet Count 229, Mean Platelet Volume 7.0, Neutrophils (%) (Auto) 57.6, Lymphocytes (%) (Auto) 33.5, Monocytes (%) (Auto) 6.8, Eosinophils (%) (Auto) 1.6, Basophils (%) (Auto) 0.6, Sodium Level 142, Potassium Level 3.4L, Chloride Level 108H, Carbon Dioxide Level 23, Anion Gap 11, Blood Urea Nitrogen 14, Creatinine 1.0, Estimat Glomerular Filtration Rate > 60, Glucose Level 101, Calcium Level 9.2 Height (Feet): 5 Height (Inches): 5.00 Weight (Pounds): 153 General Appearance: no apparent distress Objective no change Hayden Andres MD November 24, 2018 12:41
--- NOTE | 2018-11-24 12:46 | NUR ---
DISCHARGE SWALLOW/SPEECH THERAPY SUMMARY: SUBJECTIVE: ALERT AND ABLE TO EXPRESS NEEDS. OBJECTIVE/ASSESSMENT: ON REGULAR DIET AND THIN LIQUIDS. PER RN, NO PROBLEMS NOR OVERT S/S OF ASPIRATION WITH MEDS TAKEN BUT REFUSING TO TAKE HIS HIV MEDS PER RN. GOALS FOR INTAKE NOT MET CONSISTENTLY LIKELY DUE TO DISLIKE OF HOSPITAL FOOD. NO REPORTED S/S OF ASPIRATION BUT PATIENT OBSERVED WITH LUNCH TODAY. PATIENT WAS LEANING TO THE RIGHT AND HAD A WHOLE HAMBURGER ON HIS FORK AND TOLERATED TAKING A BITE FROM IT W/O PROBLEMS CHOKING/SWALLOWING. WHEN PT WAS DRINKING HIS APPLE JUICE VIA CUP (OR CONTAINER), HE DID COUGH ONCE. PT WAS RECEPTIVE TO MOVING HIS BODY MIDLINE AND SITTING WITH HOB HIGHER AT LEAST 90 DEGREES. PATIENT DENIES SWALLOWING/CHOKING PROBLEMS AND WANTS TO CONTINUE WITH THIS REG TEXTURE DIET AND THIN LIQUIDS. PATIENT TOLD TO TAKE VERY SMALL SIPS ONE AT A TIME WITH CHIN NEUTRAL OR SLIGHTLY TUCKED. PATIENT NOT RECEPTIVE TO REPEAT MOD BARIUM SWALLOW STUDY AT THIS TIME AND LUNGS ARE ALSO CLEAR. 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 PER GI, PT ALSO HAS SEVERE PROTEIN-MALNUTRITION AND IS ON PPI FOR GERD. PLAN: WILL CONSIDER D/W FROM SKILLED ACTIVITY DIRECTOR SERVICE AT THIS TIME GIVEN PATIENT HAS GROSSLY FUNCTIONAL SWALLOW SKILLS WITH A CARDIAC REG DIET AND THIN LIQUIDS WITH POSTED ASP/REFLUX PRECAUTIONS. RECOMMEND COMPLETING CALORIE COUNT, GIVING PT FOODS OF PREFERENCE, AND SENDING HIGH TOMÁS SUPPLEMENTS.
--- NOTE | 2018-11-24 13:07 | Infectious Diseases Prog Note ---
Assessment/Plan Assessment/Plan Assessment: Sepsis, unclear source- ?intraabdominal source- r/o bacteremia- ?kidney stone- US shows resolution of hydronephrosis -WBC scan neg -Renal US: Interval resolution of right hydronephrosis compared to CT from . 6 mm calcification posterior and lateral to the bladder right of midline. This is likely a phlebolith given presence of a right ureteral jet and absence of hydronephrosis. Multiple cysts within the left kidney -CT abd/p w/: Mild right hydroureteronephrosis. An obstructing stone is not definitely seen.However there is a tiny punctate calcification about 1 mm probably within the right distal ureter.Mild to moderate stool. Cysts within the left kidney. Small umbilical hernia containing fat -u/a neg -Bcx NTD -CXR No acute disease -amylase, lipase normal -Echo no vegetations seen Fever; ongoing- ?source- ?rectal CA, r/o atypical infections, CD4 is over 300- less likelihood for opportunistic infections Mild leukocytosis, SP Diarrhea -stool cx usual enteric thomas -Cdiff neg HARVINDER, improving ?Recent dx of Rectal CA at [facility]-obtain records hx of Cdiff 09/2018- no diarrhea currently - failed oral vancomycin; sp tx w/ Fidaxomicin --09/06 Cdiff toxin a/b +; repeat Cdiff neg x2 -09/06 SP Colonoscopy: proctitis -stool cx: normal thomas -Giardia ag, cryptosporidium neg Hx of UTI 08/2018 -u/a wbc 10-15, shirley neg, leuk +3; ucx >100K PROTEUS MIRABILIS ( I Levo; R Amp, bactrim, Cipro, Nitro; S Ceftriaxone) HIV/AIDS- on ARV -11/19 CD4 392 (17.4%) -09/2018 182 (10.1%), VL UD -11/2017 CD4 323 hx of rectal CA CVA 2005 HTN Plan: -Continue Cefepime #7 (abx d #8) and add Flagyl #7 for anaerobic coverage pending cultures -11/22 SP IV Vancomycin #6 -11/17 SP Zosyn x1 -09/23 SP Fidaxomicin #10 -09/13/18 SP PO Vancomycin #8 -If fevers continue will need YUDITH and bone marrow biopsy as part of work up for Fever of unknown origin -f/u cx -Monitor CBC/CMP, temperatures -aspiration precautions -Cont ARV: Genvoya, Prezista, Intelence -Brucella, Bartonella, Q fever, Rickettsia serologies -Obtain records at [facility] of recent rectal biopsy Thank you for this consultation. Will continue to follow along with you. Discussed with RN, inpt and outpt pharmacist Subjective Allergies: Coded Allergies: CODEINE (Unverified Allergy, Unknown, 11/28/17) EMTRICITABINE (Verified Allergy, Unknown, anxiousness, 08/31/18) SULFAMETHOXAZOLE (Unverified Allergy, Unknown, 10/27/17) TENOFOVIR (Verified Allergy, Unknown, anxiousness, 08/31/18) TRIMETHOPRIM (Unverified Allergy, Unknown, 10/27/17) Subjective Tm 100.1 no leukocytosis Bcx NTD Objective Vital Signs Last 24 Hour Vital Signs Date Time Temp Pulse Resp B/P (MAP) Pulse Ox O2 Delivery O2 Flow Rate FiO2 11/24/18 12:00 98.8 88 18 151/98 (115) 99 11/24/18 09:13 Room Air 11/24/18 08:53 82 116/95 11/24/18 08:16 98.4 11/24/18 08:05 87 18 98 Room Air 21 11/24/18 08:00 98.4 82 18 116/95 (102) 99 11/24/18 04:00 100.2 106 18 124/82 (96) 94 11/24/18 00:00 98.7 95 18 131/92 (105) 94 11/23/18 23:48 98.7 11/23/18 21:00 Room Air 11/23/18 20:00 78 11/23/18 20:00 97.2 89 17 160/84 (109) 96 11/23/18 17:16 98.7 11/23/18 16:00 85 11/23/18 16:00 101.4 92 20 131/71 (91) 92 Height (Feet): 5 Height (Inches): 5.00 Weight (Pounds): 153 Objective Abx: IV Vancomycin 11/17- Zosyn x1 11/17 Cefepime 11/18- Assessment: Sepsis- ?intraabdominal source- r/o bacteremia, PNA- ?kidney stone -CT abd/p w/: Mild right hydroureteronephrosis. An obstructing stone is not definitely seen.However there is a tiny punctate calcification about 1 mm probably within the right distal ureter.Mild to moderate stool. Cysts within the left kidney. Small umbilical hernia containing fat -u/a neg -Bcx p -CXR p Fever No leukocytosis HARVINDER, improving ?Recent dx of Rectal CA at [facility]-obtain records hx of Cdiff 09/2018 - failed oral vancomycin; sp tx w/ Fidaxomicin --09/06 Cdiff toxin a/b +; repeat Cdiff neg x2 -09/06 SP Colonoscopy: proctitis -stool cx: normal thomas -Giardia ag, cryptosporidium neg Hx of UTI 08/2018 -u/a wbc 10-15, shirley neg, leuk +3; ucx >100K PROTEUS MIRABILIS ( I Levo; R Amp, bactrim, Cipro, Nitro; S Ceftriaxone) HIV/AIDS- on ARV -09/2018 182 (10.1%), VL UD -11/2017 CD4 323 hx of rectal CA CVA 2004 HTN Plan: -Continue empiric IV Vancomycin #2, Cefepime #1 (abx d #2) and add Flagyl for anaerobic coverage pending cultures -09/23 SP Fidaxomicin #10 -09/13/18 SP PO Vancomycin #8 -f/u cx -Monitor CBC/CMP, temperatures -aspiration precautions -continue ARV- will clarify regimen w/ Dr Hannah Trinh (His HIV provider) [phone]- prior to resuming ARV as there is confusion as of what medicines patient is currently taking -CD4 am Thank you for this consultation. Will continue to follow along with you. Discussed with RN. Microbiology Date/Time Source Procedure Growth Status 11/21/18 17:40 Blood Blood Culture - Preliminary NO GROWTH AFTER 48 HOURS Resulted 11/21/18 17:25 Blood Blood Culture - Preliminary NO GROWTH AFTER 48 HOURS Resulted Laboratory Tests Test 11/24/18 06:10 White Blood Count 8.0 K/UL (4.8-10.8) Red Blood Count 3.99 M/UL (4.70-6.10) L Hemoglobin 12.8 G/DL (14.2-18.0) L Hematocrit 36.9 % (42.0-52.0) L Mean Corpuscular Volume 92 FL (80-99) Mean Corpuscular Hemoglobin 32.0 PG (27.0-31.0) H Mean Corpuscular Hemoglobin Concent 34.6 G/DL (32.0-36.0) Red Cell Distribution Width 11.5 % (11.6-14.8) L Platelet Count 229 K/UL (150-450) Mean Platelet Volume 7.0 FL (6.5-10.1) Neutrophils (%) (Auto) 57.6 % (45.0-75.0) Lymphocytes (%) (Auto) 33.5 % (20.0-45.0) Monocytes (%) (Auto) 6.8 % (1.0-10.0) Eosinophils (%) (Auto) 1.6 % (0.0-3.0) Basophils (%) (Auto) 0.6 % (0.0-2.0) Sodium Level 142 MMOL/L (136-145) Potassium Level 3.4 MMOL/L (3.5-5.1) L Chloride Level 108 MMOL/L (98-107) H Carbon Dioxide Level 23 MMOL/L (21-32) Anion Gap 11 mmol/L (5-15) Blood Urea Nitrogen 14 mg/dL (7-18) Creatinine 1.0 MG/DL (0.55-1.30) Estimat Glomerular Filtration Rate > 60 mL/min (>60) Glucose Level 101 MG/DL (74-106) Calcium Level 9.2 MG/DL (8.5-10.1) Current Medications Medications (Trade) Dose Ordered Sig/Roman Route PRN Reason Start Time Stop Time Status Last Admin Dose Admin Acetaminophen (Tylenol) 650 mg Q4H PRN ORAL fever 11/24/18 07:00 12/17/18 22:59 11/24/18 07:46 Baclofen (Lioresal) 10 mg THREE TIMES A DAY ORAL 11/24/18 09:00 12/18/18 08:59 11/24/18 08:54 Cefepime HCl 2 gm/ Dextrose 110 ml @ 220 mls/hr Q12HR@0300,1500 IV 11/24/18 15:00 11/29/18 14:59 Dextrose (Dextrose 50%) 25 ml Q30M PRN IV Hypoglycemia 11/24/18 07:00 12/24/18 06:59 Dextrose (Dextrose 50%) 50 ml Q30M PRN IV Hypoglycemia 11/24/18 07:15 12/24/18 07:14 Diltiazem HCl (Cardizem CD) 120 mg DAILY ORAL 11/24/18 09:00 12/23/18 08:59 Diltiazem HCl (Cardizem CD) 180 mg DAILY ORAL 11/24/18 09:00 12/23/18 08:59 11/24/18 08:53 Heparin Sodium (Porcine) (Heparin 5000 units/ml) 5,000 units EVERY 12 HOURS SUBQ 11/24/18 09:00 12/18/18 08:59 11/24/18 08:56 Levothyroxine Sodium (Synthroid) 25 mcg DAILY@0630 ORAL 11/25/18 06:30 12/18/18 06:29 Loperamide HCl (Imodium) 4 mg Q6H PRN ORAL Diarrhea 11/24/18 12:30 12/20/18 12:29 Metronidazole (Flagyl) 500 mg Q8HR ORAL 11/24/18 14:00 11/29/18 13:59 Mirtazapine (Remeron) 15 mg BEDTIME ORAL 11/24/18 21:00 12/18/18 20:59 Morphine Sulfate (Morphine Sulfate) 2 mg Q4H PRN IVP Moderate Pain (Pain Scale 4-6) 11/24/18 07:00 11/24/18 22:59 Ondansetron HCl (Zofran) 4 mg Q6H PRN IVP Nausea & Vomiting 11/24/18 07:00 12/17/18 06:59 Paroxetine HCl (Paxil) 40 mg DAILY ORAL 11/24/18 09:00 12/18/18 08:59 11/24/18 08:54 Patient Own Medication (Patient's Own Med) 1 ea BID@0900,1800 ORAL 11/24/18 09:00 12/23/18 08:59 11/24/18 08:55 Patient Own Medication (Patient's Own Med) 1 ea DAILY ORAL 11/24/18 09:00 12/23/18 08:59 11/24/18 08:55 Patient Own Medication (Patient's Own Med) 1 ea DAILY@0800 ORAL 11/24/18 08:00 12/23/18 07:59 11/24/18 08:55 Phosphorus (Phospha 250 Neutral) 500 mg THREE TIMES A DAY ORAL 11/24/18 09:00 12/22/18 17:59 11/24/18 08:54 Potassium Chloride (K-Dur) 40 meq DAILY ORAL 11/24/18 12:45 12/24/18 12:44 Tamsulosin HCl (Flomax) 0.4 mg BID ORAL 11/24/18 09:00 12/18/18 20:59 11/24/18 08:54 Temazepam (Restoril) 15 mg HSPRN PRN ORAL Insomnia 11/24/18 07:00 12/01/18 06:59 Miranda Cordero M.D. November 24, 2018 13:07
--- NOTE | 2018-11-24 14:53 | NUR ---
SAFETY AIDEINSPECTOR WEIGHTS AND MEASURES SI: SEPSIS,RECTAL BLEED T. 98.8 HR 88 RR 18 B/P 151/98 K 3.4 IS: CEFEPIME IV FLAGYL PO CARDIZEM PO HEPARIN SUBC MED/SURG STATUS
--- NOTE | 2018-11-24 16:13 | NUR ---
Social Work This Sw met with patient to discuss discharge planning needs. Patient has not been out of bed and concerned that he has shown a decline in status. Patient is from [facility] and explains he was ambulatory prior to this admission. Pending P.T evaluate (nursing to obtain orders from M.D). This Sw discussed SNF as needed with patient; patient stating he does not want SNF, plans to return back where he was prior. Pending progress here.
--- NOTE | 2018-11-24 16:34 | Internal Med Progress Note ---
Subjective Date of Service: November 24, 2018 Physician Name Trey Whitaker Attending Physician Carlos Barragan MD Current Medications Medications (Trade) Dose Ordered Sig/Roman Route PRN Reason Start Time Stop Time Status Last Admin Dose Admin Acetaminophen (Tylenol) 650 mg Q4H PRN ORAL fever 11/24/18 07:00 12/17/18 22:59 11/24/18 07:46 Baclofen (Lioresal) 10 mg THREE TIMES A DAY ORAL 11/24/18 09:00 12/18/18 08:59 11/24/18 13:28 Cefepime HCl 2 gm/ Dextrose 110 ml @ 220 mls/hr Q12HR@0300,1500 IV 11/24/18 15:00 11/29/18 14:59 11/24/18 15:35 Dextrose (Dextrose 50%) 25 ml Q30M PRN IV Hypoglycemia 11/24/18 07:00 12/24/18 06:59 Dextrose (Dextrose 50%) 50 ml Q30M PRN IV Hypoglycemia 11/24/18 07:15 12/24/18 07:14 Diltiazem HCl (Cardizem CD) 120 mg DAILY ORAL 11/24/18 09:00 12/23/18 08:59 Diltiazem HCl (Cardizem CD) 180 mg DAILY ORAL 11/24/18 09:00 12/23/18 08:59 11/24/18 08:53 Heparin Sodium (Porcine) (Heparin 5000 units/ml) 5,000 units EVERY 12 HOURS SUBQ 11/24/18 09:00 12/18/18 08:59 11/24/18 08:56 Levothyroxine Sodium (Synthroid) 25 mcg DAILY@0630 ORAL 11/25/18 06:30 12/18/18 06:29 Loperamide HCl (Imodium) 4 mg Q6H PRN ORAL Diarrhea 11/24/18 12:30 12/20/18 12:29 Metronidazole (Flagyl) 500 mg Q8HR ORAL 11/24/18 14:00 11/29/18 13:59 11/24/18 13:27 Mirtazapine (Remeron) 15 mg BEDTIME ORAL 11/24/18 21:00 12/18/18 20:59 Morphine Sulfate (Morphine Sulfate) 2 mg Q4H PRN IVP Moderate Pain (Pain Scale 4-6) 11/24/18 07:00 11/24/18 22:59 Ondansetron HCl (Zofran) 4 mg Q6H PRN IVP Nausea & Vomiting 11/24/18 07:00 12/17/18 06:59 Paroxetine HCl (Paxil) 40 mg DAILY ORAL 11/24/18 09:00 12/18/18 08:59 11/24/18 08:54 Patient Own Medication (Patient's Own Med) 1 ea Q12H ORAL 11/24/18 18:00 12/24/18 17:59 Patient Own Medication (Patient's Own Med) 1 ea QHS ORAL 11/25/18 21:00 12/25/18 20:59 Patient Own Medication (Patient's Own Med) 1 ea QHS ORAL 11/25/18 21:00 12/25/18 20:59 Phosphorus (Phospha 250 Neutral) 500 mg THREE TIMES A DAY ORAL 11/24/18 09:00 12/22/18 17:59 11/24/18 13:27 Potassium Chloride (K-Dur) 40 meq DAILY ORAL 11/24/18 12:45 12/24/18 12:44 11/24/18 13:28 Tamsulosin HCl (Flomax) 0.4 mg BID ORAL 11/24/18 09:00 12/18/18 20:59 11/24/18 08:54 Temazepam (Restoril) 15 mg HSPRN PRN ORAL Insomnia 11/24/18 07:00 12/01/18 06:59 Allergies: Coded Allergies: CODEINE (Unverified Allergy, Unknown, 11/28/17) EMTRICITABINE (Verified Allergy, Unknown, anxiousness, 08/31/18) SULFAMETHOXAZOLE (Unverified Allergy, Unknown, 10/27/17) TENOFOVIR (Verified Allergy, Unknown, anxiousness, 08/31/18) TRIMETHOPRIM (Unverified Allergy, Unknown, 10/27/17) ROS Limited/Unobtainable: No Constitutional: Reports: no symptoms HEENT: Reports: no symptoms Cardiovascular: Reports: no symptoms Respiratory: Reports: no symptoms Gastrointestinal/Abdominal: Reports: no symptoms Genitourinary: Reports: no symptoms 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: Reports: no symptoms Subjective 68 YO M admitted with constipation rectal bleeding. Cover for Int Med-Dr Barragan. Objective Last Vital Signs Date Time Temp Pulse Resp B/P (MAP) Pulse Ox O2 Delivery O2 Flow Rate FiO2 11/24/18 12:00 98.8 88 18 151/98 (115) 99 11/24/18 09:13 Room Air 11/24/18 08:05 21 Laboratory Tests Test 11/24/18 06:10 White Blood Count 8.0 K/UL (4.8-10.8) Red Blood Count 3.99 M/UL (4.70-6.10) L Hemoglobin 12.8 G/DL (14.2-18.0) L Hematocrit 36.9 % (42.0-52.0) L Mean Corpuscular Volume 92 FL (80-99) Mean Corpuscular Hemoglobin 32.0 PG (27.0-31.0) H Mean Corpuscular Hemoglobin Concent 34.6 G/DL (32.0-36.0) Red Cell Distribution Width 11.5 % (11.6-14.8) L Platelet Count 229 K/UL (150-450) Mean Platelet Volume 7.0 FL (6.5-10.1) Neutrophils (%) (Auto) 57.6 % (45.0-75.0) Lymphocytes (%) (Auto) 33.5 % (20.0-45.0) Monocytes (%) (Auto) 6.8 % (1.0-10.0) Eosinophils (%) (Auto) 1.6 % (0.0-3.0) Basophils (%) (Auto) 0.6 % (0.0-2.0) Sodium Level 142 MMOL/L (136-145) Potassium Level 3.4 MMOL/L (3.5-5.1) L Chloride Level 108 MMOL/L (98-107) H Carbon Dioxide Level 23 MMOL/L (21-32) Anion Gap 11 mmol/L (5-15) Blood Urea Nitrogen 14 mg/dL (7-18) Creatinine 1.0 MG/DL (0.55-1.30) Estimat Glomerular Filtration Rate > 60 mL/min (>60) Glucose Level 101 MG/DL (74-106) Calcium Level 9.2 MG/DL (8.5-10.1) Microbiology Date/Time Source Procedure Growth Status 11/21/18 17:40 Blood Blood Culture - Preliminary NO GROWTH AFTER 48 HOURS Resulted 11/21/18 17:25 Blood Blood Culture - Preliminary NO GROWTH AFTER 48 HOURS Resulted Intake and Output 11/23/18 11/24/18 19:00 07:00 Intake Total 120 ml Balance 120 ml Intake Oral 120 ml # Voids 1 # Bowel Movements 2 Objective PHYSICAL EXAMINATION: GENERAL: The patient is a well-developed and well-nourished white male, in no apparent distress. HEENT: Eyes, pupils equal and responsive to light and accommodation. Extraocular movements are intact. NECK: Supple without lymphadenopathy. CHEST: Lungs are clear to auscultation bilaterally without wheezes or rales. CARDIOVASCULAR: Regular rhythm and rate. S1 and S2 are normal without murmurs, rubs, or gallops. ABDOMEN: Soft, nontender, and nondistended. Positive bowel sounds. No evidence of hepatosplenomegaly. Currently, no rebound or guarding noted. EXTREMITIES: Negative for clubbing, cyanosis, or edema. RECTAL/GENITAL: Refused. NEUROLOGIC: Cranial nerves II through XII are grossly intact without focal deficits. Motor strength is 5/5 bilaterally. Deep tendon reflexes are 2+ plantar. Assessment/Plan Assessment/Plan ASSESSMENT: This is a 68-year-old white male. 1. Left abdominal pain. 2. Constipation. 3. Rectal bleeding. 4. Left hydronephrosis. 5. Hypertension. 6. HIV. 7. Hypothyroidism. 8. History of rectal cancer. 9. Cerebrovascular disease. 10. Major depression. 11. Anxiety. 12. Benign prostatic hypertrophy. 13. Paroxysmal supraventricular tachycardia TREATMENT: 1. Constipation/abdominal pain/rectal hemorrhage. Gastroenterology consultation with Dr. Dejan Germain. S/P colonoscopy 09/18. C.Diff = neg 2. Right hydronephrosis. There is no definite stone seen. The patient may have passed a renal calculus. 3. Hypertension. Continue metoprolol and amlodipine as above. 4. HIV. Continue HAART per Infectious Disease. 5. Hypothyroidism. Continue Levoxyl as above. 6. History of rectal cancer. The patient is status post biopsy at [facility]. 7. Cerebrovascular disease. 8. Major depression. Continue Paxil as above. 9. Anxiety. 10. Benign prostatic hypertrophy. Continue Flomax and oxybutynin as above. 11. Await cardiology consult 12. Abx=flagyl and cefepime per ID 13. Discharge planning Trey Whitaker MD November 24, 2018 16:34
[2018-11-24] MEDS: INTELENCE 200 MG ORAL SCH (17:57)
--- NOTE | 2018-11-24 19:25 | NUR ---
HAND-OFF: Report given to CHARLEY betts.
--- NOTE | 2018-11-24 20:00 | NUR ---
NURSE NOTES: Patient received in bed, asleep, easily arousble. IV is intact and patent. No acute distress at this time. Will continue to monitor.
--- NOTE | 2018-11-24 23:55 | NUR ---
NURSE NOTES: Left message to Dr. Mendez regarding patient's heart rate 120. Auscultated apically. No acute distress at this time, Denies any symptom. Calmly sleeping. Will continue to monitor.
[2018-11-25] MEDS: Cefepime HCl 2 GM in D5W 110 ML IV SCH ×2 (02:39→14:04)
[2018-11-25 04:00] VITALS: BP 152/106
--- NOTE | 2018-11-25 04:10 | NUR ---
NURSE NOTES: Patient complained of pain. Pain medication orders already. Call placed to Dr. Barragan at [phone], received call back at [phone] ok to renew orders for percocet 10/325 and morphine 2mg iv q4 prn. Dr. Barragan also made aware of patient's increased heart rate, received order for metoprolol 25mg bid and give one dose now. Will carry out orders.
[2018-11-25] MEDS: Metoprolol 25mg tab ORAL SCH ×3 (04:31→21:00)
[2018-11-25] MEDS: Morphine Sulfate 2mg/ml Inj(IV/IM USE ONLY) IVP PRN (04:32)
[2018-11-25] MEDS: metroNIDAZOLE 500mg tab ORAL SCH ×3 (05:55→22:12)
[2018-11-25] MEDS: Levothyroxine 25mcg tab ORAL SCH (05:55)
[2018-11-25] MEDS: INTELENCE 200 MG ORAL SCH ×2 (05:56→17:10)
--- NOTE | 2018-11-25 07:30 | NUR ---
NURSE NOTES: received patient in bed, asleep, easily arousble. no sign of distress, HL intact and patent.on fall and aspiration precaution . turn q2 hours for comfort and good circulation, Will continue to monitor. sharri orozco
[2018-11-25 07:32] LABS: BASOPHILS % (AUTO) 0.8 % (0.0-2.0); EOSINOPHILS % (AUTO) 0.8 % (0.0-3.0); HEMATOCRIT 38.9 % (42.0-52.0); HEMOGLOBIN 13.6 G/DL (14.2-18.0); LYMPHOCYTES % (AUTO) 34.9 % (20.0-45.0); MEAN CORPUSCULAR VOLUME 92 FL (80-99); NEUTROPHILS % (AUTO) 56.5 % (45.0-75.0); PLATELET COUNT 286 K/UL (150-450); RED BLOOD COUNT 4.21 M/UL (4.70-6.10); WHITE BLOOD COUNT 10.4 K/UL (4.8-10.8)
--- NOTE | 2018-11-25 07:40 | NUR ---
HAND-OFF: Report given to Jocelyn WHITEHEAD.
[2018-11-25 07:49] LABS: ANION GAP 12 mmol/L (5-15); BLOOD UREA NITROGEN 16 mg/dL (7-18); CALCIUM 9.2 MG/DL (8.5-10.1); CARBON DIOXIDE 23 MMOL/L (21-32); CHLORIDE 107 MMOL/L (98-107); CREATININE 1.1 MG/DL (0.55-1.30); PHOSPHORUS 3.2 MG/DL (2.5-4.9); POTASSIUM 3.8 MMOL/L (3.5-5.1); SODIUM 142 MMOL/L (136-145)
[2018-11-25 08:00] VITALS: BP_SYST 120; BP_SYST 152; BP_DIAS 106; BP_DIAS 80
[2018-11-25 08:04] LABS: ALANINE AMINOTRANSFERASE 23 U/L (12-78); ALBUMIN 3.1 G/DL (3.4-5.0); ALKALINE PHOSPHATASE 118 U/L (46-116); ASPARTATE AMINO TRANSFERASE 27 U/L (15-37); BILIRUBIN,DIRECT 0.1 MG/DL (0.0-0.3); BILIRUBIN,TOTAL 0.4 MG/DL (0.2-1.0)
[2018-11-25] MEDS: Tamsulosin 0.4mg cap ORAL SCH ×2 (08:43→17:09)
[2018-11-25] MEDS: PARoxetine 20mg tab ORAL SCH (08:44)
[2018-11-25] MEDS: Phospha 250 Neutral tab ORAL SCH ×3 (08:44→17:09)
[2018-11-25] MEDS: dilTIAZem HCl CD 180mg cap ORAL SCH (08:44)
[2018-11-25] MEDS: dilTIAZem HCl CD 120mg cap ORAL SCH (08:44)
[2018-11-25] MEDS: Heparin 5000 units/ml inj SUBQ SCH ×2 (08:51→22:20)
[2018-11-25 12:10] VITALS: BP 114/79
--- NOTE | 2018-11-25 15:06 | Internal Med Progress Note ---
Subjective Date of Service: November 25, 2018 Physician Name Trey Whitaker Attending Physician Carlos Barragan MD Current Medications Medications (Trade) Dose Ordered Sig/Roman Route PRN Reason Start Time Stop Time Status Last Admin Dose Admin Acetaminophen (Tylenol) 650 mg Q4H PRN ORAL fever 11/24/18 07:00 12/17/18 22:59 11/25/18 08:43 Baclofen (Lioresal) 10 mg THREE TIMES A DAY ORAL 11/24/18 09:00 12/18/18 08:59 11/25/18 12:31 Cefepime HCl 2 gm/ Dextrose 110 ml @ 220 mls/hr Q12HR@0300,1500 IV 11/24/18 15:00 11/29/18 14:59 11/25/18 14:04 Dextrose (Dextrose 50%) 25 ml Q30M PRN IV Hypoglycemia 11/24/18 07:00 12/24/18 06:59 Dextrose (Dextrose 50%) 50 ml Q30M PRN IV Hypoglycemia 11/24/18 07:15 12/24/18 07:14 Diltiazem HCl (Cardizem CD) 120 mg DAILY ORAL 11/24/18 09:00 12/23/18 08:59 11/25/18 08:44 Diltiazem HCl (Cardizem CD) 180 mg DAILY ORAL 11/24/18 09:00 12/23/18 08:59 11/25/18 08:44 Heparin Sodium (Porcine) (Heparin 5000 units/ml) 5,000 units EVERY 12 HOURS SUBQ 11/24/18 09:00 12/18/18 08:59 11/25/18 08:51 Levothyroxine Sodium (Synthroid) 25 mcg DAILY@0630 ORAL 11/25/18 06:30 12/18/18 06:29 11/25/18 05:55 Loperamide HCl (Imodium) 4 mg Q6H PRN ORAL Diarrhea 11/24/18 12:30 12/20/18 12:29 11/24/18 17:19 Metoprolol Tartrate (Lopressor) 25 mg Q12HR ORAL 11/25/18 04:15 12/25/18 04:14 11/25/18 08:44 Metronidazole (Flagyl) 500 mg Q8HR ORAL 11/24/18 14:00 11/29/18 13:59 11/25/18 13:12 Mirtazapine (Remeron) 15 mg BEDTIME ORAL 11/24/18 21:00 12/18/18 20:59 11/24/18 20:57 Morphine Sulfate (Morphine Sulfate) 2 mg Q4H PRN IVP Moderate Pain (Pain Scale 4-6) 11/25/18 04:15 12/02/18 04:14 11/25/18 04:32 Ondansetron HCl (Zofran) 4 mg Q6H PRN IVP Nausea & Vomiting 11/24/18 07:00 12/17/18 06:59 11/25/18 09:35 Oxycodone/ Acetaminophen (Percocet 10/325) 1 tab Q4H PRN ORAL Severe Breakthru Pain (>7) 11/25/18 04:15 12/02/18 04:14 Paroxetine HCl (Paxil) 40 mg DAILY ORAL 11/24/18 09:00 12/18/18 08:59 11/25/18 08:44 Patient Own Medication (Patient's Own Med) 1 ea Q12H ORAL 11/24/18 18:00 12/24/18 17:59 11/25/18 05:56 Patient Own Medication (Patient's Own Med) 1 ea QHS ORAL 11/25/18 21:00 12/25/18 20:59 Patient Own Medication (Patient's Own Med) 1 ea QHS ORAL 11/25/18 21:00 12/25/18 20:59 Phosphorus (Phospha 250 Neutral) 500 mg THREE TIMES A DAY ORAL 11/24/18 09:00 12/22/18 17:59 11/25/18 12:31 Potassium Chloride (K-Dur) 40 meq DAILY ORAL 11/24/18 12:45 12/24/18 12:44 11/25/18 08:43 Tamsulosin HCl (Flomax) 0.4 mg BID ORAL 11/24/18 09:00 12/18/18 20:59 11/25/18 08:43 Temazepam (Restoril) 15 mg HSPRN PRN ORAL Insomnia 11/24/18 07:00 12/01/18 06:59 Allergies: Coded Allergies: CODEINE (Unverified Allergy, Unknown, 11/28/17) EMTRICITABINE (Verified Allergy, Unknown, anxiousness, 08/31/18) SULFAMETHOXAZOLE (Unverified Allergy, Unknown, 10/27/17) TENOFOVIR (Verified Allergy, Unknown, anxiousness, 08/31/18) TRIMETHOPRIM (Unverified Allergy, Unknown, 10/27/17) ROS Limited/Unobtainable: No Constitutional: Reports: no symptoms HEENT: Reports: no symptoms Cardiovascular: Reports: no symptoms Respiratory: Reports: no symptoms Gastrointestinal/Abdominal: Reports: no symptoms Genitourinary: Reports: no symptoms 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: Reports: no symptoms Subjective 68 YO M admitted with constipation rectal bleeding. Cover for [facility]-Dr Barragan. Objective Last Vital Signs Date Time Temp Pulse Resp B/P (MAP) Pulse Ox O2 Delivery O2 Flow Rate FiO2 11/25/18 12:10 99.1 79 18 114/79 (91) 96 11/25/18 08:25 Room Air 11/24/18 08:05 21 Laboratory Tests Test 11/25/18 05:50 White Blood Count 10.4 K/UL (4.8-10.8) Red Blood Count 4.21 M/UL (4.70-6.10) L Hemoglobin 13.6 G/DL (14.2-18.0) L Hematocrit 38.9 % (42.0-52.0) L Mean Corpuscular Volume 92 FL (80-99) Mean Corpuscular Hemoglobin 32.2 PG (27.0-31.0) H Mean Corpuscular Hemoglobin Concent 34.8 G/DL (32.0-36.0) Red Cell Distribution Width 12.0 % (11.6-14.8) Platelet Count 286 K/UL (150-450) Mean Platelet Volume 7.7 FL (6.5-10.1) Neutrophils (%) (Auto) 56.5 % (45.0-75.0) Lymphocytes (%) (Auto) 34.9 % (20.0-45.0) Monocytes (%) (Auto) 7.0 % (1.0-10.0) Eosinophils (%) (Auto) 0.8 % (0.0-3.0) Basophils (%) (Auto) 0.8 % (0.0-2.0) Differential Total Cells Counted 100 Neutrophils % (Manual) 52 % (45-75) Lymphocytes % (Manual) 35 % (20-45) Monocytes % (Manual) 12 % (1-10) H Eosinophils % (Manual) 0 % (0-3) Basophils % (Manual) 0 % (0-2) Band Neutrophils 1 % (0-8) Reactive Lymphocytes Occasional Platelet Estimate Adequate Platelet Morphology Giant Platelets Rare Polychromasia 1+ Sodium Level 142 MMOL/L (136-145) Potassium Level 3.8 MMOL/L (3.5-5.1) Chloride Level 107 MMOL/L (98-107) Carbon Dioxide Level 23 MMOL/L (21-32) Anion Gap 12 mmol/L (5-15) Blood Urea Nitrogen 16 mg/dL (7-18) Creatinine 1.1 MG/DL (0.55-1.30) Estimat Glomerular Filtration Rate > 60 mL/min (>60) Glucose Level 111 MG/DL (74-106) H Uric Acid 3.4 MG/DL (2.6-7.2) Calcium Level 9.2 MG/DL (8.5-10.1) Phosphorus Level 3.2 MG/DL (2.5-4.9) Magnesium Level 1.8 MG/DL (1.8-2.4) Total Bilirubin 0.4 MG/DL (0.2-1.0) Direct Bilirubin 0.1 MG/DL (0.0-0.3) Aspartate Amino Transf (AST/SGOT) 27 U/L (15-37) Alanine Aminotransferase (ALT/SGPT) 23 U/L (12-78) Alkaline Phosphatase 118 U/L (46-116) H Total Protein 8.0 G/DL (6.4-8.2) Albumin 3.1 G/DL (3.4-5.0) L HIV-1 RNA (PCR) log10 Value Pending HIV-1 RNA Ultraquantitative (PCR) Pending Intake and Output 11/24/18 11/25/18 19:00 07:00 Intake Total 600 ml 610 ml Output Total 150 ml 300 ml Balance 450 ml 310 ml Intake Oral 600 ml 500 ml IV Total 110 ml Output Urine Total 150 ml 300 ml # Voids 2 # Bowel Movements 2 Objective PHYSICAL EXAMINATION: GENERAL: The patient is a well-developed and well-nourished white male, in no apparent distress. HEENT: Eyes, pupils equal and responsive to light and accommodation. Extraocular movements are intact. NECK: Supple without lymphadenopathy. CHEST: Lungs are clear to auscultation bilaterally without wheezes or rales. CARDIOVASCULAR: Regular rhythm and rate. S1 and S2 are normal without murmurs, rubs, or gallops. ABDOMEN: Soft, nontender, and nondistended. Positive bowel sounds. No evidence of hepatosplenomegaly. Currently, no rebound or guarding noted. EXTREMITIES: Negative for clubbing, cyanosis, or edema. RECTAL/GENITAL: Refused. NEUROLOGIC: Cranial nerves II through XII are grossly intact without focal deficits. Motor strength is 5/5 bilaterally. Deep tendon reflexes are 2+ plantar. Assessment/Plan Assessment/Plan ASSESSMENT: This is a 68-year-old white male. 1. Left abdominal pain. 2. Constipation. 3. Rectal bleeding. 4. Left hydronephrosis. 5. Hypertension. 6. HIV. 7. Hypothyroidism. 8. History of rectal cancer. 9. Cerebrovascular disease. 10. Major depression. 11. Anxiety. 12. Benign prostatic hypertrophy. 13. Paroxysmal supraventricular tachycardia TREATMENT: 1. Constipation/abdominal pain/rectal hemorrhage. Gastroenterology consultation with Dr. Dejan Germain. S/P colonoscopy 09/18. C.Diff = neg 2. Right hydronephrosis. There is no definite stone seen. The patient may have passed a renal calculus. 3. Hypertension. Continue metoprolol and amlodipine as above. 4. HIV. Continue HAART per Infectious Disease. 5. Hypothyroidism. Continue Levoxyl as above. 6. History of rectal cancer. The patient is status post biopsy at [facility]. 7. Cerebrovascular disease. 8. Major depression. Continue Paxil as above. 9. Anxiety. 10. Benign prostatic hypertrophy. Continue Flomax and oxybutynin as above. 11. Await cardiology consult 12. Abx=flagyl and cefepime per ID 13. Discharge planning Trey Whitaker MD November 25, 2018 15:06
--- NOTE | 2018-11-25 15:14 | Nephrology Progress Note ---
Assessment/Plan Problem List: (1) Sepsis (2) Fecal impaction (3) Hypokalemia (4) Hypothyroidism (5) HIV (human immunodeficiency virus infection) (6) Anemia Assessment Sepsis Possible PNA Acute kidney injury, possibly due to mild hydroureteronephrosis seen on CT scan -resolved Rectal CA, recently diagnosed HIV/AIDS Fecal retention History of CVA Hypertension Hypothyroidism Depression Hypokalemia Anemia Plan Plan: K , Phos supplement as needed stool softner Reglan as needed Gastric support Monitor lytes DC IV fluids per cardiology per orders Subjective ROS Limited/Unobtainable: No Objective Objective Last 24 Hour Vital Signs Date Time Temp Pulse Resp B/P (MAP) Pulse Ox O2 Delivery O2 Flow Rate FiO2 11/25/18 12:10 99.1 79 18 114/79 (91) 96 11/25/18 09:00 97.8 11/25/18 08:44 102 120/80 11/25/18 08:44 102 120/80 11/25/18 08:44 102 120/80 11/25/18 08:25 Room Air 11/25/18 08:00 100.3 102 18 120/80 (93) 97 11/25/18 04:31 120 152/106 11/25/18 04:00 98.0 120 18 152/106 (121) 93 11/24/18 23:44 97.6 120 18 129/96 (107) 93 11/24/18 21:27 98.9 11/24/18 21:00 Room Air 11/24/18 20:00 100.1 112 18 138/96 (110) 93 11/24/18 16:00 99.1 96 18 138/88 (105) 99 Intake and Output 11/24/18 11/25/18 19:00 07:00 Intake Total 600 ml 610 ml Output Total 150 ml 300 ml Balance 450 ml 310 ml Intake Oral 600 ml 500 ml IV Total 110 ml Output Urine Total 150 ml 300 ml # Voids 2 # Bowel Movements 2 Current Medications Medications (Trade) Dose Ordered Sig/Roman Route PRN Reason Start Time Stop Time Status Last Admin Dose Admin Acetaminophen (Tylenol) 650 mg Q4H PRN ORAL fever 11/24/18 07:00 12/17/18 22:59 11/25/18 08:43 Baclofen (Lioresal) 10 mg THREE TIMES A DAY ORAL 11/24/18 09:00 12/18/18 08:59 11/25/18 12:31 Cefepime HCl 2 gm/ Dextrose 110 ml @ 220 mls/hr Q12HR@0300,1500 IV 11/24/18 15:00 11/29/18 14:59 11/25/18 14:04 Dextrose (Dextrose 50%) 25 ml Q30M PRN IV Hypoglycemia 11/24/18 07:00 12/24/18 06:59 Dextrose (Dextrose 50%) 50 ml Q30M PRN IV Hypoglycemia 11/24/18 07:15 12/24/18 07:14 Diltiazem HCl (Cardizem CD) 120 mg DAILY ORAL 11/24/18 09:00 12/23/18 08:59 11/25/18 08:44 Diltiazem HCl (Cardizem CD) 180 mg DAILY ORAL 11/24/18 09:00 12/23/18 08:59 11/25/18 08:44 Heparin Sodium (Porcine) (Heparin 5000 units/ml) 5,000 units EVERY 12 HOURS SUBQ 11/24/18 09:00 12/18/18 08:59 11/25/18 08:51 Levothyroxine Sodium (Synthroid) 25 mcg DAILY@0630 ORAL 11/25/18 06:30 12/18/18 06:29 11/25/18 05:55 Loperamide HCl (Imodium) 4 mg Q6H PRN ORAL Diarrhea 11/24/18 12:30 12/20/18 12:29 11/24/18 17:19 Metoprolol Tartrate (Lopressor) 25 mg Q12HR ORAL 11/25/18 04:15 12/25/18 04:14 11/25/18 08:44 Metronidazole (Flagyl) 500 mg Q8HR ORAL 11/24/18 14:00 11/29/18 13:59 11/25/18 13:12 Mirtazapine (Remeron) 15 mg BEDTIME ORAL 11/24/18 21:00 12/18/18 20:59 11/24/18 20:57 Morphine Sulfate (Morphine Sulfate) 2 mg Q4H PRN IVP Moderate Pain (Pain Scale 4-6) 11/25/18 04:15 12/02/18 04:14 11/25/18 04:32 Ondansetron HCl (Zofran) 4 mg Q6H PRN IVP Nausea & Vomiting 11/24/18 07:00 12/17/18 06:59 11/25/18 09:35 Oxycodone/ Acetaminophen (Percocet 10/325) 1 tab Q4H PRN ORAL Severe Breakthru Pain (>7) 11/25/18 04:15 12/02/18 04:14 Paroxetine HCl (Paxil) 40 mg DAILY ORAL 11/24/18 09:00 12/18/18 08:59 11/25/18 08:44 Patient Own Medication (Patient's Own Med) 1 ea Q12H ORAL 11/24/18 18:00 12/24/18 17:59 11/25/18 05:56 Patient Own Medication (Patient's Own Med) 1 ea QHS ORAL 11/25/18 21:00 12/25/18 20:59 Patient Own Medication (Patient's Own Med) 1 ea QHS ORAL 11/25/18 21:00 12/25/18 20:59 Phosphorus (Phospha 250 Neutral) 500 mg THREE TIMES A DAY ORAL 11/24/18 09:00 12/22/18 17:59 11/25/18 12:31 Potassium Chloride (K-Dur) 40 meq DAILY ORAL 11/24/18 12:45 12/24/18 12:44 11/25/18 08:43 Tamsulosin HCl (Flomax) 0.4 mg BID ORAL 11/24/18 09:00 12/18/18 20:59 11/25/18 08:43 Temazepam (Restoril) 15 mg HSPRN PRN ORAL Insomnia 11/24/18 07:00 12/01/18 06:59 Laboratory Tests 11/25/18 05:50: White Blood Count 10.4, Red Blood Count 4.21L, Hemoglobin 13.6L, Hematocrit 38.9L, Mean Corpuscular Volume 92, Mean Corpuscular Hemoglobin 32.2H, Mean Corpuscular Hemoglobin Concent 34.8, Red Cell Distribution Width 12.0, Platelet Count 286, Mean Platelet Volume 7.7, Neutrophils (%) (Auto) 56.5, Lymphocytes (% ) (Auto) 34.9, Monocytes (%) (Auto) 7.0, Eosinophils (%) (Auto) 0.8, Basophils ( %) (Auto) 0.8, Differential Total Cells Counted 100, Neutrophils % (Manual) 52, Lymphocytes % (Manual) 35, Monocytes % (Manual) 12H, Eosinophils % (Manual) 0, Basophils % (Manual) 0, Band Neutrophils 1, Reactive Lymphocytes Occasional, Platelet Estimate Adequate, Platelet Morphology , Giant Platelets Rare, Polychromasia 1+, Sodium Level 142, Potassium Level 3.8, Chloride Level 107, Carbon Dioxide Level 23, Anion Gap 12, Blood Urea Nitrogen 16, Creatinine 1.1, Estimat Glomerular Filtration Rate > 60, Glucose Level 111H, Uric Acid 3.4, Calcium Level 9.2, Phosphorus Level 3.2, Magnesium Level 1.8, Total Bilirubin 0.4, Direct Bilirubin 0.1, Aspartate Amino Transf (AST/SGOT) 27, Alanine Aminotransferase (ALT/SGPT) 23, Alkaline Phosphatase 118H, Total Protein 8.0, Albumin 3.1L, HIV-1 RNA (PCR) log10 Value [Pending], HIV-1 RNA Ultraquantitative (PCR) [Pending] Height (Feet): 5 Height (Inches): 5.00 Weight (Pounds): 153 Cardiovascular: normal rate Respiratory/Chest: lungs clear Abdomen: soft Objective no change Hayden Adnres MD November 25, 2018 15:14
--- NOTE | 2018-11-25 15:22 | Cardiac Electrophysiology PN ---
Assessment/Plan Assessment/Plan 1. Recurrent episodes of SVT. EF of 60%. EPS and ablation as out patient S/P multiple doses of IV metoprolol to suppress the arrhythmia. Continue Cardizem CD 300 daily. No recurrence 2. Hypertension. On Cardizem that would help the present arrhythmia. 3. HIV and AIDS. 4. Fever and Sepsis, on IV antibiotic. 5. Rectal bleeding. FU by Dr. Germain due to rectal cancer. 6. Abdominal pain. DW RN Subjective Subjective Had tachycardia up to 120s last night as he didn't get his Cardizem. Now better. No CP or SOB Objective Last 24 Hour Vital Signs Date Time Temp Pulse Resp B/P (MAP) Pulse Ox O2 Delivery O2 Flow Rate FiO2 11/25/18 12:10 99.1 79 18 114/79 (91) 96 11/25/18 09:00 97.8 11/25/18 08:44 102 120/80 11/25/18 08:44 102 120/80 11/25/18 08:44 102 120/80 11/25/18 08:25 Room Air 11/25/18 08:00 100.3 102 18 120/80 (93) 97 11/25/18 04:31 120 152/106 11/25/18 04:00 98.0 120 18 152/106 (121) 93 11/24/18 23:44 97.6 120 18 129/96 (107) 93 11/24/18 21:27 98.9 11/24/18 21:00 Room Air 11/24/18 20:00 100.1 112 18 138/96 (110) 93 11/24/18 16:00 99.1 96 18 138/88 (105) 99 Intake and Output 11/24/18 11/25/18 19:00 07:00 Intake Total 600 ml 610 ml Output Total 150 ml 300 ml Balance 450 ml 310 ml Intake Oral 600 ml 500 ml IV Total 110 ml Output Urine Total 150 ml 300 ml # Voids 2 # Bowel Movements 2 Laboratory Tests Test 11/25/18 05:50 White Blood Count 10.4 K/UL (4.8-10.8) Red Blood Count 4.21 M/UL (4.70-6.10) L Hemoglobin 13.6 G/DL (14.2-18.0) L Hematocrit 38.9 % (42.0-52.0) L Mean Corpuscular Volume 92 FL (80-99) Mean Corpuscular Hemoglobin 32.2 PG (27.0-31.0) H Mean Corpuscular Hemoglobin Concent 34.8 G/DL (32.0-36.0) Red Cell Distribution Width 12.0 % (11.6-14.8) Platelet Count 286 K/UL (150-450) Mean Platelet Volume 7.7 FL (6.5-10.1) Neutrophils (%) (Auto) 56.5 % (45.0-75.0) Lymphocytes (%) (Auto) 34.9 % (20.0-45.0) Monocytes (%) (Auto) 7.0 % (1.0-10.0) Eosinophils (%) (Auto) 0.8 % (0.0-3.0) Basophils (%) (Auto) 0.8 % (0.0-2.0) Differential Total Cells Counted 100 Neutrophils % (Manual) 52 % (45-75) Lymphocytes % (Manual) 35 % (20-45) Monocytes % (Manual) 12 % (1-10) H Eosinophils % (Manual) 0 % (0-3) Basophils % (Manual) 0 % (0-2) Band Neutrophils 1 % (0-8) Reactive Lymphocytes Occasional Platelet Estimate Adequate Platelet Morphology Giant Platelets Rare Polychromasia 1+ Sodium Level 142 MMOL/L (136-145) Potassium Level 3.8 MMOL/L (3.5-5.1) Chloride Level 107 MMOL/L (98-107) Carbon Dioxide Level 23 MMOL/L (21-32) Anion Gap 12 mmol/L (5-15) Blood Urea Nitrogen 16 mg/dL (7-18) Creatinine 1.1 MG/DL (0.55-1.30) Estimat Glomerular Filtration Rate > 60 mL/min (>60) Glucose Level 111 MG/DL (74-106) H Uric Acid 3.4 MG/DL (2.6-7.2) Calcium Level 9.2 MG/DL (8.5-10.1) Phosphorus Level 3.2 MG/DL (2.5-4.9) Magnesium Level 1.8 MG/DL (1.8-2.4) Total Bilirubin 0.4 MG/DL (0.2-1.0) Direct Bilirubin 0.1 MG/DL (0.0-0.3) Aspartate Amino Transf (AST/SGOT) 27 U/L (15-37) Alanine Aminotransferase (ALT/SGPT) 23 U/L (12-78) Alkaline Phosphatase 118 U/L (46-116) H Total Protein 8.0 G/DL (6.4-8.2) Albumin 3.1 G/DL (3.4-5.0) L HIV-1 RNA (PCR) log10 Value Pending HIV-1 RNA Ultraquantitative (PCR) Pending Objective HEAD AND NECK: No JVD. LUNGS: Clear. CARDIOVASCULAR: Regular S1 and S2 with no gallop or murmur. ABDOMEN: Soft. EXTREMITIES: No pitting edema. Abel Mendez MD November 25, 2018 15:22
--- NOTE | 2018-11-25 15:27 | NUR ---
CASE MANAGEMENT: REVIEW SI: SEPSIS . RECTAL BLEEDING T 100.3 HR 120 RR 18 BP 152/106 SAT 97% ROOM AIR H/H 13.6/38.9 ALK PHOS 118 IS: ROCEPHIN IV Q12HR FLAGYL PO Q8HR HEPARIN SQ Q12HR PERCOCET 10/325 PO Q4HR PRN PT EVAL MED/SURG STATUS DCP: PATIENT IS FROM [facility]
[2018-11-25 16:08] VITALS: BP 120/80
--- NOTE | 2018-11-25 16:27 | NUR ---
PT Note PT dior completed, treatment initiated. Patient has severe spasticity in BLE's. He was able to sit at the EOB x 3 minutes but sitting tolerance is limited by c/o rectal pain. Per patient, he was independent in all transfers and was able to ambulate x short distances [employer] at the [employer]. Patient can benefit from PT services to increase his ROM, muscle strength and balance to improve his functional mobility. Addendum: 11/25/18 at 1628 by LORI TAYLOR PT Amended: Links added.
--- NOTE | 2018-11-25 19:22 | Pulmonology Progress Note ---
Assessment/Plan Problems: (1) Sepsis (2) ATN (acute tubular necrosis) (3) Intractable abdominal pain (4) Diarrhea (5) History of rectal cancer (6) C. difficile colitis (7) Severe protein-calorie malnutrition (8) HIV (human immunodeficiency virus infection) Assessment/Plan still febrile doing better indium scan in process CD4 count noted, it is 17 improving wants to go home iv fluids iv abx check cultures check electrolytes Subjective ROS Limited/Unobtainable: No Constitutional: Reports: no symptoms HEENT: Repors: no symptoms Respiratory: Reports: no symptoms Allergies: Coded Allergies: CODEINE (Unverified Allergy, Unknown, 11/28/17) EMTRICITABINE (Verified Allergy, Unknown, anxiousness, 08/31/18) SULFAMETHOXAZOLE (Unverified Allergy, Unknown, 10/27/17) TENOFOVIR (Verified Allergy, Unknown, anxiousness, 08/31/18) TRIMETHOPRIM (Unverified Allergy, Unknown, 10/27/17) Objective Last 24 Hour Vital Signs Date Time Temp Pulse Resp B/P (MAP) Pulse Ox O2 Delivery O2 Flow Rate FiO2 11/25/18 17:00 99.1 11/25/18 16:08 101.3 102 18 120/80 (93) 97 11/25/18 12:10 99.1 79 18 114/79 (91) 96 11/25/18 09:00 97.8 11/25/18 08:44 102 120/80 11/25/18 08:44 102 120/80 11/25/18 08:44 102 120/80 11/25/18 08:25 Room Air 11/25/18 08:00 100.3 102 18 120/80 (93) 97 11/25/18 04:31 120 152/106 11/25/18 04:00 98.0 120 18 152/106 (121) 93 11/24/18 23:44 97.6 120 18 129/96 (107) 93 11/24/18 21:27 98.9 11/24/18 21:00 Room Air 11/24/18 20:00 100.1 112 18 138/96 (110) 93 Intake and Output 11/24/18 11/25/18 19:00 07:00 Intake Total 600 ml 610 ml Output Total 150 ml 300 ml Balance 450 ml 310 ml Intake Oral 600 ml 500 ml IV Total 110 ml Output Urine Total 150 ml 300 ml # Voids 2 # Bowel Movements 2 Objective General Appearance: cachetic HEENT: normocephalic, atraumatic Respiratory/Chest: chest wall non-tender, lungs clear Cardiovascular: normal peripheral pulses, normal rate Abdomen: normal bowel sounds, no organomegaly Extremities: no cyanosis Skin: no lesions Laboratory Tests 11/25/18 05:50: White Blood Count 10.4, Red Blood Count 4.21L, Hemoglobin 13.6L, Hematocrit 38.9L, Mean Corpuscular Volume 92, Mean Corpuscular Hemoglobin 32.2H, Mean Corpuscular Hemoglobin Concent 34.8, Red Cell Distribution Width 12.0, Platelet Count 286, Mean Platelet Volume 7.7, Neutrophils (%) (Auto) 56.5, Lymphocytes (% ) (Auto) 34.9, Monocytes (%) (Auto) 7.0, Eosinophils (%) (Auto) 0.8, Basophils ( %) (Auto) 0.8, Differential Total Cells Counted 100, Neutrophils % (Manual) 52, Lymphocytes % (Manual) 35, Monocytes % (Manual) 12H, Eosinophils % (Manual) 0, Basophils % (Manual) 0, Band Neutrophils 1, Reactive Lymphocytes Occasional, Platelet Estimate Adequate, Platelet Morphology , Giant Platelets Rare, Polychromasia 1+, Sodium Level 142, Potassium Level 3.8, Chloride Level 107, Carbon Dioxide Level 23, Anion Gap 12, Blood Urea Nitrogen 16, Creatinine 1.1, Estimat Glomerular Filtration Rate > 60, Glucose Level 111H, Uric Acid 3.4, Calcium Level 9.2, Phosphorus Level 3.2, Magnesium Level 1.8, Total Bilirubin 0.4, Direct Bilirubin 0.1, Aspartate Amino Transf (AST/SGOT) 27, Alanine Aminotransferase (ALT/SGPT) 23, Alkaline Phosphatase 118H, Total Protein 8.0, Albumin 3.1L, HIV-1 RNA (PCR) log10 Value [Pending], HIV-1 RNA Ultraquantitative (PCR) [Pending] Current Medications Medications (Trade) Dose Ordered Sig/Roman Route PRN Reason Start Time Stop Time Status Last Admin Dose Admin Acetaminophen (Tylenol) 650 mg Q4H PRN ORAL fever 11/24/18 07:00 12/17/18 22:59 11/25/18 16:22 Baclofen (Lioresal) 10 mg THREE TIMES A DAY ORAL 5/24/19 09:00 12/18/18 08:59 11/25/18 17:09 Cefepime HCl 2 gm/ Dextrose 110 ml @ 220 mls/hr Q12HR@0300,1500 IV 11/24/18 15:00 11/29/18 14:59 11/25/18 14:04 Dextrose (Dextrose 50%) 25 ml Q30M PRN IV Hypoglycemia 11/24/18 07:00 12/24/18 06:59 Dextrose (Dextrose 50%) 50 ml Q30M PRN IV Hypoglycemia 11/24/18 07:15 12/24/18 07:14 Diltiazem HCl (Cardizem CD) 120 mg DAILY ORAL 11/24/18 09:00 12/23/18 08:59 11/25/18 08:44 Diltiazem HCl (Cardizem CD) 180 mg DAILY ORAL 11/24/18 09:00 12/23/18 08:59 11/25/18 08:44 Heparin Sodium (Porcine) (Heparin 5000 units/ml) 5,000 units EVERY 12 HOURS SUBQ 11/24/18 09:00 12/18/18 08:59 11/25/18 08:51 Levothyroxine Sodium (Synthroid) 25 mcg DAILY@0630 ORAL 11/25/18 06:30 12/18/18 06:29 11/25/18 05:55 Loperamide HCl (Imodium) 4 mg Q6H PRN ORAL Diarrhea 11/24/18 12:30 12/20/18 12:29 11/24/18 17:19 Metoprolol Tartrate (Lopressor) 25 mg Q12HR ORAL 11/25/18 04:15 12/25/18 04:14 11/25/18 08:44 Metronidazole (Flagyl) 500 mg Q8HR ORAL 11/24/18 14:00 11/29/18 13:59 11/25/18 13:12 Mirtazapine (Remeron) 15 mg BEDTIME ORAL 11/24/18 21:00 12/18/18 20:59 11/24/18 20:57 Morphine Sulfate (Morphine Sulfate) 2 mg Q4H PRN IVP Moderate Pain (Pain Scale 4-6) 11/25/18 04:15 12/02/18 04:14 11/25/18 04:32 Ondansetron HCl (Zofran) 4 mg Q6H PRN IVP Nausea & Vomiting 11/24/18 07:00 12/17/18 06:59 11/25/18 09:35 Oxycodone/ Acetaminophen (Percocet 10/325) 1 tab Q4H PRN ORAL Severe Breakthru Pain (>7) 11/25/18 04:15 12/02/18 04:14 Paroxetine HCl (Paxil) 40 mg DAILY ORAL 11/24/18 09:00 12/18/18 08:59 11/25/18 08:44 Patient Own Medication (Patient's Own Med) 1 ea Q12H ORAL 11/24/18 18:00 12/24/18 17:59 11/25/18 05:56 Patient Own Medication (Patient's Own Med) 1 ea QHS ORAL 11/25/18 21:00 12/25/18 20:59 Patient Own Medication (Patient's Own Med) 1 ea QHS ORAL 11/25/18 21:00 12/25/18 20:59 Phosphorus (Phospha 250 Neutral) 500 mg THREE TIMES A DAY ORAL 11/24/18 09:00 12/22/18 17:59 11/25/18 17:09 Potassium Chloride (K-Dur) 40 meq DAILY ORAL 11/24/18 12:45 12/24/18 12:44 11/25/18 08:43 Tamsulosin HCl (Flomax) 0.4 mg BID ORAL 11/24/18 09:00 12/18/18 20:59 11/25/18 17:09 Temazepam (Restoril) 15 mg HSPRN PRN ORAL Insomnia 11/24/18 07:00 12/01/18 06:59 Oliverio Rm MD November 25, 2018 19:22
--- NOTE | 2018-11-25 19:45 | NUR ---
HAND-OFF: Report given to CHARLEY KAPOOR. RESTING COMFORTABLY IN BED, NO SIGN OF DISTRESS JARON
--- NOTE | 2018-11-25 19:54 | NUR ---
NURSE NOTES: RECEIVED PT FROM CHARLEY RAO. PT IS ASLEEP, ON R/A, UNLABORED BREATHING. NO ACUTE DISTRESS NOTED. CONDOM CATH PRESENT, INTACT AND DRAINING WELL. IV INTACT AND PATENT. BED IS LOCKED AT THE LOWEST POSITION, BED ALARMS ACTIVE, SIDE RAILS UP X2, AND CALL LIGHT IS WITHIN REACH. WILL CONTINUE TO MONITOR.
[2018-11-25 20:00] VITALS: BP 91/60
--- NOTE | 2018-11-25 22:27 | General Progress Note ---
Assessment/Plan Status: stable, progressing Assessment/Plan: Assessment/Plan Problems: (1) Severe protein-calorie malnutrition ICD Codes: E43 - Unspecified severe protein-calorie malnutrition SNOMED: 874503237 (2) History of rectal cancer ICD Codes: Z85.048 - Personal history of other malignant neoplasm of rectum, rectosigmoid junction, and anus SNOMED: 322620494 (3) Intractable abdominal pain ICD Codes: R10.9 - Unspecified abdominal pain SNOMED: 01381993, [id number] Status: stable, progressing Assessment/Plan Status post colonoscopy in September 2018 1. Focal proctitis suspicious for C. diff versus ulcerative colitis, status post biopsy. 2. Status post biopsy of the right and left colon to evaluate microscopic colitis. >> negative Rectal bleeding resolved Stable H&H C. difficile negative x2 Stool culture reviewed, gram-negative bacillus Advance diet as tolerated bowel regimen, hold stool softeners and laxatives increased lomotil for persistent diarrhea obtain records from [facility] monitor H&H fu ID recs Electrolyte correction Follow labs PPI Subjective Allergies: Coded Allergies: CODEINE (Unverified Allergy, Unknown, 11/28/17) EMTRICITABINE (Verified Allergy, Unknown, anxiousness, 08/31/18) SULFAMETHOXAZOLE (Unverified Allergy, Unknown, 10/27/17) TENOFOVIR (Verified Allergy, Unknown, anxiousness, 08/31/18) TRIMETHOPRIM (Unverified Allergy, Unknown, 10/27/17) Subjective c/o some abd pain loose stools fever Objective Last 24 Hour Vital Signs Date Time Temp Pulse Resp B/P (MAP) Pulse Ox O2 Delivery O2 Flow Rate FiO2 11/25/18 21:00 98 91/60 11/25/18 17:00 99.1 11/25/18 16:08 101.3 102 18 120/80 (93) 97 11/25/18 12:10 99.1 79 18 114/79 (91) 96 11/25/18 09:00 97.8 11/25/18 08:44 102 120/80 11/25/18 08:44 102 120/80 11/25/18 08:44 102 120/80 11/25/18 08:25 Room Air 11/25/18 08:00 100.3 102 18 120/80 (93) 97 11/25/18 04:31 120 152/106 11/25/18 04:00 98.0 120 18 152/106 (121) 93 11/24/18 23:44 97.6 120 18 129/96 (107) 93 Intake and Output 11/24/18 11/25/18 19:00 07:00 Intake Total 600 ml 610 ml Output Total 150 ml 300 ml Balance 450 ml 310 ml Intake Oral 600 ml 500 ml IV Total 110 ml Output Urine Total 150 ml 300 ml # Voids 2 # Bowel Movements 2 Laboratory Tests 11/25/18 05:50: White Blood Count 10.4, Red Blood Count 4.21L, Hemoglobin 13.6L, Hematocrit 38.9L, Mean Corpuscular Volume 92, Mean Corpuscular Hemoglobin 32.2H, Mean Corpuscular Hemoglobin Concent 34.8, Red Cell Distribution Width 12.0, Platelet Count 286, Mean Platelet Volume 7.7, Neutrophils (%) (Auto) 56.5, Lymphocytes (% ) (Auto) 34.9, Monocytes (%) (Auto) 7.0, Eosinophils (%) (Auto) 0.8, Basophils ( %) (Auto) 0.8, Differential Total Cells Counted 100, Neutrophils % (Manual) 52, Lymphocytes % (Manual) 35, Monocytes % (Manual) 12H, Eosinophils % (Manual) 0, Basophils % (Manual) 0, Band Neutrophils 1, Reactive Lymphocytes Occasional, Platelet Estimate Adequate, Platelet Morphology , Giant Platelets Rare, Polychromasia 1+, Sodium Level 142, Potassium Level 3.8, Chloride Level 107, Carbon Dioxide Level 23, Anion Gap 12, Blood Urea Nitrogen 16, Creatinine 1.1, Estimat Glomerular Filtration Rate > 60, Glucose Level 111H, Uric Acid 3.4, Calcium Level 9.2, Phosphorus Level 3.2, Magnesium Level 1.8, Total Bilirubin 0.4, Direct Bilirubin 0.1, Aspartate Amino Transf (AST/SGOT) 27, Alanine Aminotransferase (ALT/SGPT) 23, Alkaline Phosphatase 118H, Total Protein 8.0, Albumin 3.1L, HIV-1 RNA (PCR) log10 Value [Pending], HIV-1 RNA Ultraquantitative (PCR) [Pending] Height (Feet): 5 Height (Inches): 5.00 Weight (Pounds): 153 Objective WDWN NCAT supple CTA RR abd soft no edema Brandy Barron MD November 25, 2018 22:27
[2018-11-26] VITALS: BP 134/71
[2018-11-26] MEDS: Cefepime HCl 2 GM in D5W 110 ML IV SCH ×2 (02:51→15:30)
[2018-11-26 04:00] VITALS: BP 132/87
[2018-11-26] MEDS: metroNIDAZOLE 500mg tab ORAL SCH ×3 (05:04→21:00)
[2018-11-26] MEDS: INTELENCE 200 MG ORAL SCH ×3 (05:04→17:44)
[2018-11-26] MEDS: Morphine Sulfate 2mg/ml Inj(IV/IM USE ONLY) IVP PRN (05:05)
[2018-11-26] MEDS: Levothyroxine 25mcg tab ORAL SCH (05:44)
--- NOTE | 2018-11-26 07:40 | NUR ---
HAND-OFF: Report given to CHARLEY CAVAZOS.
--- NOTE | 2018-11-26 07:45 | NUR ---
NURSE NOTES: received patient A/A/Ox4, verbally responsive. BLE are contracted. patient is able to feed self. no acute resp distress noted. siderails are up x3, call light is within reach. bed alarm activated and locked. will cont to monitor.
[2018-11-26 08:00] VITALS: BP 142/95
[2018-11-26] MEDS: Phospha 250 Neutral tab ORAL SCH ×4 (08:52→17:44)
[2018-11-26] MEDS: Metoprolol 25mg tab ORAL SCH ×2 (08:52→21:00)
[2018-11-26] MEDS: dilTIAZem HCl CD 120mg cap ORAL SCH (08:52)
[2018-11-26] MEDS: Tamsulosin 0.4mg cap ORAL SCH ×3 (08:52→17:44)
[2018-11-26] MEDS: dilTIAZem HCl CD 180mg cap ORAL SCH (08:52)
[2018-11-26] MEDS: PARoxetine 20mg tab ORAL SCH ×2 (08:53→09:00)
[2018-11-26] MEDS: Heparin 5000 units/ml inj SUBQ SCH ×2 (09:06→21:01)
[2018-11-26 12:00] VITALS: BP 95/63
--- NOTE | 2018-11-26 13:08 | Cardiac Electrophysiology PN ---
Assessment/Plan Assessment/Plan 1. Recurrent episodes of SVT. EF of 60%. EPS and ablation as out patient S/P multiple doses of IV metoprolol to terminate the arrhythmia. Continue Cardizem CD 300 daily. No recurrence 2. Hypertension. On Cardizem 3. HIV and AIDS. 4. Fever and Sepsis, on IV antibiotic. 5. Rectal bleeding. FU by Dr. Germain due to rectal cancer. 6. Abdominal pain. DW RN DC to [facility] pending Subjective Subjective No new events. Off tele. HR better. No CP or SOB Objective Last 24 Hour Vital Signs Date Time Temp Pulse Resp B/P (MAP) Pulse Ox O2 Delivery O2 Flow Rate FiO2 11/26/18 12:00 98.8 92 18 95/63 (74) 97 11/26/18 08:52 103 142/95 11/26/18 08:52 103 142/95 11/26/18 08:52 103 142/95 11/26/18 08:49 Room Air 11/26/18 08:00 98.0 103 20 142/95 (111) 95 11/26/18 04:00 97.0 87 20 132/87 (102) 96 11/26/18 00:00 97.8 93 16 134/71 (92) 97 11/25/18 22:58 98.8 11/25/18 22:00 100.5 11/25/18 21:00 Room Air 11/25/18 21:00 98 91/60 11/25/18 20:00 97.6 98 18 91/60 (70) 98 11/25/18 17:00 99.1 11/25/18 16:08 101.3 102 18 120/80 (93) 97 Intake and Output 11/25/18 11/26/18 18:59 06:59 Intake Total 910 ml 220 ml Output Total 650 ml 200 ml Balance 260 ml 20 ml IV Total 110 ml 220 ml Other 800 ml Output Urine Total 650 ml 200 ml Objective HEAD AND NECK: No JVD. LUNGS: Clear. CARDIOVASCULAR: Regular S1 and S2 with no gallop or murmur. ABDOMEN: Soft. EXTREMITIES: No pitting edema. Abel Mendez MD November 26, 2018 13:08
--- NOTE | 2018-11-26 13:09 | Cardiac Electrophysiology PN ---
Assessment/Plan Assessment/Plan 1. Recurrent episodes of SVT. EF of 60%. EPS and ablation as out patient S/P multiple doses of IV metoprolol to terminate the arrhythmia. Continue Cardizem CD 300 daily and metoprolol 25 bid. No recurrence 2. Hypertension. On Cardizem and Metoprolol 3. HIV and AIDS. 4. Fever and Sepsis, on IV antibiotic. 5. Rectal bleeding. FU by Dr. Germain due to rectal cancer. 6. Abdominal pain. DW RN DC to [facility] pending Subjective Subjective No new events. Off tele. HR better. No CP or SOB Objective Last 24 Hour Vital Signs Date Time Temp Pulse Resp B/P (MAP) Pulse Ox O2 Delivery O2 Flow Rate FiO2 11/26/18 12:00 98.8 92 18 95/63 (74) 97 11/26/18 08:52 103 142/95 11/26/18 08:52 103 142/95 11/26/18 08:52 103 142/95 11/26/18 08:49 Room Air 11/26/18 08:00 98.0 103 20 142/95 (111) 95 11/26/18 04:00 97.0 87 20 132/87 (102) 96 11/26/18 00:00 97.8 93 16 134/71 (92) 97 11/25/18 22:58 98.8 11/25/18 22:00 100.5 11/25/18 21:00 Room Air 11/25/18 21:00 98 91/60 11/25/18 20:00 97.6 98 18 91/60 (70) 98 11/25/18 17:00 99.1 11/25/18 16:08 101.3 102 18 120/80 (93) 97 Intake and Output 11/25/18 11/26/18 18:59 06:59 Intake Total 910 ml 220 ml Output Total 650 ml 200 ml Balance 260 ml 20 ml IV Total 110 ml 220 ml Other 800 ml Output Urine Total 650 ml 200 ml Objective HEAD AND NECK: No JVD. LUNGS: Clear. CARDIOVASCULAR: Regular S1 and S2 with no gallop or murmur. ABDOMEN: Soft. EXTREMITIES: No pitting edema. Abel Mendez MD November 26, 2018 13:09
--- NOTE | 2018-11-26 13:10 | Nephrology Progress Note ---
Assessment/Plan Problem List: (1) Sepsis (2) Fecal impaction (3) Hypokalemia (4) Hypothyroidism (5) HIV (human immunodeficiency virus infection) (6) Anemia Assessment Sepsis Possible PNA Acute kidney injury, possibly due to mild hydroureteronephrosis seen on CT scan -resolved Rectal CA, recently diagnosed HIV/AIDS Fecal retention History of CVA Hypertension Hypothyroidism Depression Hypokalemia Anemia Plan Plan: K , Phos supplement as needed stool softner Reglan as needed Gastric support Monitor lytes DC IV fluids per cardiology per orders Subjective ROS Limited/Unobtainable: No Objective Objective Last 24 Hour Vital Signs Date Time Temp Pulse Resp B/P (MAP) Pulse Ox O2 Delivery O2 Flow Rate FiO2 11/26/18 12:00 98.8 92 18 95/63 (74) 97 11/26/18 08:52 103 142/95 11/26/18 08:52 103 142/95 11/26/18 08:52 103 142/95 11/26/18 08:49 Room Air 11/26/18 08:00 98.0 103 20 142/95 (111) 95 11/26/18 04:00 97.0 87 20 132/87 (102) 96 11/26/18 00:00 97.8 93 16 134/71 (92) 97 11/25/18 22:58 98.8 11/25/18 22:00 100.5 11/25/18 21:00 Room Air 11/25/18 21:00 98 91/60 11/25/18 20:00 97.6 98 18 91/60 (70) 98 11/25/18 17:00 99.1 11/25/18 16:08 101.3 102 18 120/80 (93) 97 Intake and Output 11/25/18 11/26/18 18:59 06:59 Intake Total 910 ml 220 ml Output Total 650 ml 200 ml Balance 260 ml 20 ml IV Total 110 ml 220 ml Other 800 ml Output Urine Total 650 ml 200 ml Height (Feet): 5 Height (Inches): 5.00 Weight (Pounds): 153 General Appearance: no apparent distress Cardiovascular: normal rate Respiratory/Chest: lungs clear Abdomen: soft Objective no change Hayden Andres MD November 26, 2018 13:09
--- NOTE | 2018-11-26 13:37 | Internal Med Progress Note ---
Subjective Date of Service: November 26, 2018 Physician Name Trey Whitaker Attending Physician Carlos Barragan MD Current Medications Medications (Trade) Dose Ordered Sig/Roman Route PRN Reason Start Time Stop Time Status Last Admin Dose Admin Acetaminophen (Tylenol) 650 mg Q4H PRN ORAL fever 11/24/18 07:00 12/17/18 22:59 11/25/18 22:28 Baclofen (Lioresal) 10 mg THREE TIMES A DAY ORAL 11/24/18 09:00 12/18/18 08:59 11/26/18 08:53 Cefepime HCl 2 gm/ Dextrose 110 ml @ 220 mls/hr Q12HR@0300,1500 IV 11/24/18 15:00 11/29/18 14:59 11/26/18 02:51 Dextrose (Dextrose 50%) 25 ml Q30M PRN IV Hypoglycemia 11/24/18 07:00 12/24/18 06:59 Dextrose (Dextrose 50%) 50 ml Q30M PRN IV Hypoglycemia 11/24/18 07:15 12/24/18 07:14 Diltiazem HCl (Cardizem CD) 120 mg DAILY ORAL 11/24/18 09:00 12/23/18 08:59 11/26/18 08:52 Diltiazem HCl (Cardizem CD) 180 mg DAILY ORAL 11/24/18 09:00 12/23/18 08:59 11/26/18 08:52 Heparin Sodium (Porcine) (Heparin 5000 units/ml) 5,000 units EVERY 12 HOURS SUBQ 11/24/18 09:00 12/18/18 08:59 11/26/18 09:06 Levothyroxine Sodium (Synthroid) 25 mcg DAILY@0630 ORAL 11/25/18 06:30 12/18/18 06:29 11/26/18 05:44 Loperamide HCl (Imodium) 4 mg Q6H PRN ORAL Diarrhea 11/24/18 12:30 12/20/18 12:29 11/24/18 17:19 Metoprolol Tartrate (Lopressor) 25 mg Q12HR ORAL 11/25/18 04:15 12/25/18 04:14 11/26/18 08:52 Metronidazole (Flagyl) 500 mg Q8HR ORAL 11/24/18 14:00 11/29/18 13:59 11/26/18 05:04 Mirtazapine (Remeron) 15 mg BEDTIME ORAL 11/24/18 21:00 12/18/18 20:59 11/25/18 22:12 Morphine Sulfate (Morphine Sulfate) 2 mg Q4H PRN IVP Moderate Pain (Pain Scale 4-6) 11/25/18 04:15 12/02/18 04:14 11/26/18 05:05 Ondansetron HCl (Zofran) 4 mg Q6H PRN IVP Nausea & Vomiting 11/24/18 07:00 12/17/18 06:59 11/25/18 09:35 Oxycodone/ Acetaminophen (Percocet 10/325) 1 tab Q4H PRN ORAL Severe Breakthru Pain (>7) 11/25/18 04:15 12/02/18 04:14 Paroxetine HCl (Paxil) 40 mg DAILY ORAL 11/24/18 09:00 12/18/18 08:59 11/25/18 08:44 Patient Own Medication (Patient's Own Med) 1 ea Q12H ORAL 11/24/18 18:00 12/24/18 17:59 11/25/18 05:56 Patient Own Medication (Patient's Own Med) 1 ea QHS ORAL 11/25/18 21:00 12/25/18 20:59 Patient Own Medication (Patient's Own Med) 1 ea QHS ORAL 11/25/18 21:00 12/25/18 20:59 Phosphorus (Phospha 250 Neutral) 500 mg THREE TIMES A DAY ORAL 11/24/18 09:00 12/22/18 17:59 11/26/18 08:52 Potassium Chloride (K-Dur) 40 meq DAILY ORAL 11/24/18 12:45 12/24/18 12:44 11/25/18 08:43 Tamsulosin HCl (Flomax) 0.4 mg BID ORAL 11/24/18 09:00 12/18/18 20:59 11/26/18 08:52 Temazepam (Restoril) 15 mg HSPRN PRN ORAL Insomnia 11/24/18 07:00 12/01/18 06:59 Allergies: Coded Allergies: CODEINE (Unverified Allergy, Unknown, 11/28/17) EMTRICITABINE (Verified Allergy, Unknown, anxiousness, 08/31/18) SULFAMETHOXAZOLE (Unverified Allergy, Unknown, 10/27/17) TENOFOVIR (Verified Allergy, Unknown, anxiousness, 08/31/18) TRIMETHOPRIM (Unverified Allergy, Unknown, 10/27/17) ROS Limited/Unobtainable: No Constitutional: Reports: no symptoms HEENT: Reports: no symptoms Cardiovascular: Reports: no symptoms Respiratory: Reports: no symptoms Gastrointestinal/Abdominal: Reports: no symptoms Genitourinary: Reports: no symptoms 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: Reports: no symptoms Subjective 68 YO M admitted with constipation rectal bleeding. Cover for [facility] Med-Dr Barragan. Objective Last Vital Signs Date Time Temp Pulse Resp B/P (MAP) Pulse Ox O2 Delivery O2 Flow Rate FiO2 11/26/18 12:00 98.8 92 18 95/63 (74) 97 11/26/18 08:49 Room Air 11/24/18 08:05 21 Intake and Output 11/25/18 11/26/18 18:59 06:59 Intake Total 910 ml 220 ml Output Total 650 ml 200 ml Balance 260 ml 20 ml IV Total 110 ml 220 ml Other 800 ml Output Urine Total 650 ml 200 ml Objective PHYSICAL EXAMINATION: GENERAL: The patient is a well-developed and well-nourished white male, in no apparent distress. HEENT: Eyes, pupils equal and responsive to light and accommodation. Extraocular movements are intact. NECK: Supple without lymphadenopathy. CHEST: Lungs are clear to auscultation bilaterally without wheezes or rales. CARDIOVASCULAR: Regular rhythm and rate. S1 and S2 are normal without murmurs, rubs, or gallops. ABDOMEN: Soft, nontender, and nondistended. Positive bowel sounds. No evidence of hepatosplenomegaly. Currently, no rebound or guarding noted. EXTREMITIES: Negative for clubbing, cyanosis, or edema. RECTAL/GENITAL: Refused. NEUROLOGIC: Cranial nerves II through XII are grossly intact without focal deficits. Motor strength is 5/5 bilaterally. Deep tendon reflexes are 2+ plantar. Assessment/Plan Assessment/Plan ASSESSMENT: This is a 68-year-old white male. 1. Left abdominal pain. 2. Constipation. 3. Rectal bleeding. 4. Left hydronephrosis. 5. Hypertension. 6. HIV. 7. Hypothyroidism. 8. History of rectal cancer. 9. Cerebrovascular disease. 10. Major depression. 11. Anxiety. 12. Benign prostatic hypertrophy. 13. Paroxysmal supraventricular tachycardia TREATMENT: 1. Constipation/abdominal pain/rectal hemorrhage. Gastroenterology consultation with Dr. Dejan Germain. S/P colonoscopy 09/18. C.Diff = neg 2. Right hydronephrosis. There is no definite stone seen. The patient may have passed a renal calculus. 3. Hypertension. Continue metoprolol and amlodipine as above. 4. HIV. Continue HAART per Infectious Disease. 5. Hypothyroidism. Continue Levoxyl as above. 6. History of rectal cancer. The patient is status post biopsy at [facility]. 7. Cerebrovascular disease. 8. Major depression. Continue Paxil as above. 9. Anxiety. 10. Benign prostatic hypertrophy. Continue Flomax and oxybutynin as above. 11. Await cardiology consult 12. Abx=flagyl and cefepime per ID 13. Discharge planning Trey Whitaker MD November 26, 2018 13:37
--- NOTE | 2018-11-26 15:09 | NUR ---
CASE MANAGEMENT: REVIEW SI: SEPSIS . RECTAL BLEEDING T 97.0 HR 103 RR 20 BP 142/95 SAT 95% ROOM AIR IS: CEFEPIME IV Q12HR FLAGYL PO Q8HR HEPARIN SQ Q12HR PERCOCET 10/325 PO Q4HR PRN MED/SURG STATUS DCP: PATIENT IS FROM [facility]
[2018-11-26 16:05] VITALS: BP 104/72
--- NOTE | 2018-11-26 16:48 | General Progress Note ---
Assessment/Plan Status: stable, progressing Assessment/Plan: Assessment/Plan Problems: (1) Severe protein-calorie malnutrition ICD Codes: E43 - Unspecified severe protein-calorie malnutrition SNOMED: 546393869 (2) History of rectal cancer ICD Codes: Z85.048 - Personal history of other malignant neoplasm of rectum, rectosigmoid junction, and anus SNOMED: 353069391 (3) Intractable abdominal pain ICD Codes: R10.9 - Unspecified abdominal pain SNOMED: 82275513, 763057479 Status: stable, progressing Assessment/Plan Status post colonoscopy in September 2018 1. Focal proctitis suspicious for C. diff versus ulcerative colitis, status post biopsy. 2. Status post biopsy of the right and left colon to evaluate microscopic colitis. >> negative Rectal bleeding resolved Stable H&H C. difficile negative x2 Stool culture reviewed, gram-negative bacillus Advance diet as tolerated bowel regimen, hold stool softeners and laxatives increased lomotil for persistent diarrhea obtain records from [facility] monitor H&H fu ID recs Electrolyte correction Follow labs PPI Subjective Allergies: Coded Allergies: CODEINE (Unverified Allergy, Unknown, 11/28/17) EMTRICITABINE (Verified Allergy, Unknown, anxiousness, 08/31/18) SULFAMETHOXAZOLE (Unverified Allergy, Unknown, 10/27/17) TENOFOVIR (Verified Allergy, Unknown, anxiousness, 08/31/18) TRIMETHOPRIM (Unverified Allergy, Unknown, 10/27/17) Subjective feels better loose bm resolved appetite better Objective Last 24 Hour Vital Signs Date Time Temp Pulse Resp B/P (MAP) Pulse Ox O2 Delivery O2 Flow Rate FiO2 11/26/18 16:05 98.7 94 19 104/72 (83) 94 11/26/18 12:00 98.8 92 18 95/63 (74) 97 11/26/18 08:52 103 142/95 11/26/18 08:52 103 142/95 11/26/18 08:52 103 142/95 11/26/18 08:49 Room Air 11/26/18 08:00 98.0 103 20 142/95 (111) 95 11/26/18 04:00 97.0 87 20 132/87 (102) 96 11/26/18 00:00 97.8 93 16 134/71 (92) 97 11/25/18 22:58 98.8 11/25/18 22:00 100.5 11/25/18 21:00 Room Air 11/25/18 21:00 98 91/60 11/25/18 20:00 97.6 98 18 91/60 (70) 98 11/25/18 17:00 99.1 Intake and Output 11/25/18 11/26/18 18:59 06:59 Intake Total 910 ml 220 ml Output Total 650 ml 200 ml Balance 260 ml 20 ml IV Total 110 ml 220 ml Other 800 ml Output Urine Total 650 ml 200 ml Height (Feet): 5 Height (Inches): 5.00 Weight (Pounds): 153 Objective WDWN NCAT supple CTA RR abd soft no edema Brandy Barron MD November 26, 2018 16:48
--- NOTE | 2018-11-26 19:19 | NUR ---
HAND-OFF: Report given to Enriqueta.
--- NOTE | 2018-11-26 19:31 | NUR ---
NURSE NOTES: Received patient awake in bed, able to verbalize needs, no s/s of acute distress, no c/o pain at this time. Helped patient stretch out his Right leg as tolerated. IV access asymptomatic, dressing dry and intact. Fall and safety precautions taken.
[2018-11-26 20:00] VITALS: BP 100/64
--- NOTE | 2018-11-26 20:16 | Infectious Diseases Prog Note ---
Subjective Allergies: Coded Allergies: CODEINE (Unverified Allergy, Unknown, 11/28/17) EMTRICITABINE (Verified Allergy, Unknown, anxiousness, 08/31/18) SULFAMETHOXAZOLE (Unverified Allergy, Unknown, 10/27/17) TENOFOVIR (Verified Allergy, Unknown, anxiousness, 08/31/18) TRIMETHOPRIM (Unverified Allergy, Unknown, 10/27/17) Subjective fever improving Objective Vital Signs Last 24 Hour Vital Signs Date Time Temp Pulse Resp B/P (MAP) Pulse Ox O2 Delivery O2 Flow Rate FiO2 11/26/18 16:32 98.7 11/26/18 16:05 98.7 94 19 104/72 (83) 94 11/26/18 12:00 98.8 92 18 95/63 (74) 97 11/26/18 08:52 103 142/95 11/26/18 08:52 103 142/95 11/26/18 08:52 103 142/95 11/26/18 08:49 Room Air 11/26/18 08:00 98.0 103 20 142/95 (111) 95 11/26/18 04:00 97.0 87 20 132/87 (102) 96 11/26/18 00:00 97.8 93 16 134/71 (92) 97 11/25/18 22:58 98.8 11/25/18 22:00 100.5 11/25/18 21:00 Room Air 11/25/18 21:00 98 91/60 Height (Feet): 5 Height (Inches): 5.00 Weight (Pounds): 153 HEENT: anicteric Respiratory/Chest: normal breath sounds Cardiovascular: normal rate Abdomen: soft, non tender Current Medications Medications (Trade) Dose Ordered Sig/Roman Route PRN Reason Start Time Stop Time Status Last Admin Dose Admin Acetaminophen (Tylenol) 650 mg Q4H PRN ORAL fever 11/24/18 07:00 12/17/18 22:59 11/25/18 22:28 Baclofen (Lioresal) 10 mg THREE TIMES A DAY ORAL 11/24/18 09:00 12/18/18 08:59 11/26/18 14:06 Cefepime HCl 2 gm/ Dextrose 110 ml @ 220 mls/hr Q12HR@0300,1500 IV 11/24/18 15:00 11/29/18 14:59 11/26/18 15:30 Dextrose (Dextrose 50%) 25 ml Q30M PRN IV Hypoglycemia 11/24/18 07:00 12/24/18 06:59 Dextrose (Dextrose 50%) 50 ml Q30M PRN IV Hypoglycemia 11/24/18 07:15 12/24/18 07:14 Diltiazem HCl (Cardizem CD) 120 mg DAILY ORAL 11/24/18 09:00 12/23/18 08:59 11/26/18 08:52 Diltiazem HCl (Cardizem CD) 180 mg DAILY ORAL 11/24/18 09:00 12/23/18 08:59 11/26/18 08:52 Heparin Sodium (Porcine) (Heparin 5000 units/ml) 5,000 units EVERY 12 HOURS SUBQ 11/24/18 09:00 12/18/18 08:59 11/26/18 09:06 Levothyroxine Sodium (Synthroid) 25 mcg DAILY@0630 ORAL 11/25/18 06:30 12/18/18 06:29 11/26/18 05:44 Loperamide HCl (Imodium) 4 mg Q6H PRN ORAL Diarrhea 11/24/18 12:30 12/20/18 12:29 11/24/18 17:19 Metoprolol Tartrate (Lopressor) 25 mg Q12HR ORAL 11/25/18 04:15 12/25/18 04:14 11/26/18 08:52 Metronidazole (Flagyl) 500 mg Q8HR ORAL 11/24/18 14:00 11/29/18 13:59 11/26/18 14:06 Mirtazapine (Remeron) 15 mg BEDTIME ORAL 11/24/18 21:00 12/18/18 20:59 11/25/18 22:12 Morphine Sulfate (Morphine Sulfate) 2 mg Q4H PRN IVP Moderate Pain (Pain Scale 4-6) 11/25/18 04:15 12/02/18 04:14 11/26/18 05:05 Ondansetron HCl (Zofran) 4 mg Q6H PRN IVP Nausea & Vomiting 11/24/18 07:00 12/17/18 06:59 11/25/18 09:35 Oxycodone/ Acetaminophen (Percocet 10/325) 1 tab Q4H PRN ORAL Severe Breakthru Pain (>7) 11/25/18 04:15 12/02/18 04:14 11/26/18 16:02 Paroxetine HCl (Paxil) 40 mg DAILY ORAL 11/24/18 09:00 12/18/18 08:59 11/25/18 08:44 Patient Own Medication (Patient's Own Med) 1 ea Q12H ORAL 11/24/18 18:00 12/24/18 17:59 11/25/18 05:56 Patient Own Medication (Patient's Own Med) 1 ea QHS ORAL 11/25/18 21:00 12/25/18 20:59 Patient Own Medication (Patient's Own Med) 1 ea QHS ORAL 11/25/18 21:00 12/25/18 20:59 Phosphorus (Phospha 250 Neutral) 500 mg THREE TIMES A DAY ORAL 11/24/18 09:00 12/22/18 17:59 11/26/18 14:07 Potassium Chloride (K-Dur) 40 meq DAILY ORAL 11/24/18 12:45 12/24/18 12:44 11/25/18 08:43 Tamsulosin HCl (Flomax) 0.4 mg BID ORAL 11/24/18 09:00 12/18/18 20:59 11/26/18 08:52 Temazepam (Restoril) 15 mg HSPRN PRN ORAL Insomnia 11/24/18 07:00 12/01/18 06:59 José Yan MD November 26, 2018 20:16
--- NOTE | 2018-11-26 20:19 | Infectious Diseases Prog Note ---
Assessment/Plan Assessment/Plan Assessment: Sepsis, unclear source- ?intraabdominal source- r/o bacteremia- ?kidney stone- US shows resolution of hydronephrosis -WBC scan neg -Renal US: Interval resolution of right hydronephrosis compared to CT from . 6 mm calcification posterior and lateral to the bladder right of midline. This is likely a phlebolith given presence of a right ureteral jet and absence of hydronephrosis. Multiple cysts within the left kidney -CT abd/p w/: Mild right hydroureteronephrosis. An obstructing stone is not definitely seen.However there is a tiny punctate calcification about 1 mm probably within the right distal ureter.Mild to moderate stool. Cysts within the left kidney. Small umbilical hernia containing fat -u/a neg -Bcx NTD -CXR No acute disease -amylase, lipase normal -Echo no vegetations seen Fever; improving ?source- ?rectal CA, r/o atypical infections, CD4 is over 300- less likelihood for opportunistic infections Mild leukocytosis, SP Diarrhea -stool cx usual enteric thomas -Cdiff neg x of Cdiff 09/2018- no diarrhea currently - failed oral vancomycin; sp tx w/ Fidaxomicin --09/06 Cdiff toxin a/b +; repeat Cdiff neg x2 -09/06 SP Colonoscopy: proctitis -stool cx: normal thomas -Giardia ag, cryptosporidium neg Hx of UTI 08/2018 -u/a wbc 10-15, shirley neg, leuk +3; ucx >100K PROTEUS MIRABILIS ( I Levo; R Amp, bactrim, Cipro, Nitro; S Ceftriaxone) HIV/AIDS- on ARV -11/19 CD4 392 (17.4%) -09/2018 182 (10.1%), VL UD -11/2017 CD4 323 HARVINDER, improving ?Recent dx of Rectal CA at [facility]-obtain records hx of rectal CA CVA 2004 HTN Plan: -Continue Cefepime # 9 (abx d #10) and add Flagyl # 9 for anaerobic coverage pending cultures -11/22 SP IV Vancomycin #6 -11/17 SP Zosyn x1 -09/23 SP Fidaxomicin #10 -09/13/18 SP PO Vancomycin #8 -If fevers continue will need YUDITH and bone marrow biopsy as part of work up for Fever of unknown origin -f/u cx -Monitor CBC/CMP, temperatures -aspiration precautions -Cont ARV: Genvoya, Prezista, Intelence -Brucella, Bartonella, Q fever, Rickettsia serologies -Obtain records at [facility] of recent rectal biopsy Subjective Constitutional: Denies: no symptoms, fever, chills, fatigue, anorexia, drenching sweats, other Allergies: Coded Allergies: CODEINE (Unverified Allergy, Unknown, 11/28/17) EMTRICITABINE (Verified Allergy, Unknown, anxiousness, 08/31/18) SULFAMETHOXAZOLE (Unverified Allergy, Unknown, 10/27/17) TENOFOVIR (Verified Allergy, Unknown, anxiousness, 08/31/18) TRIMETHOPRIM (Unverified Allergy, Unknown, 10/27/17) Subjective fever improving Objective Vital Signs Last 24 Hour Vital Signs Date Time Temp Pulse Resp B/P (MAP) Pulse Ox O2 Delivery O2 Flow Rate FiO2 11/26/18 16:32 98.7 11/26/18 16:05 98.7 94 19 104/72 (83) 94 11/26/18 12:00 98.8 92 18 95/63 (74) 97 11/26/18 08:52 103 142/95 11/26/18 08:52 103 142/95 11/26/18 08:52 103 142/95 11/26/18 08:49 Room Air 11/26/18 08:00 98.0 103 20 142/95 (111) 95 11/26/18 04:00 97.0 87 20 132/87 (102) 96 11/26/18 00:00 97.8 93 16 134/71 (92) 97 11/25/18 22:58 98.8 11/25/18 22:00 100.5 11/25/18 21:00 Room Air 11/25/18 21:00 98 91/60 Height (Feet): 5 Height (Inches): 5.00 Weight (Pounds): 153 HEENT: mucous membranes moist Respiratory/Chest: no respiratory distress Cardiovascular: no gallop/murmur Abdomen: no organomegaly Current Medications Medications (Trade) Dose Ordered Sig/Roman Route PRN Reason Start Time Stop Time Status Last Admin Dose Admin Acetaminophen (Tylenol) 650 mg Q4H PRN ORAL fever 11/24/18 07:00 12/17/18 22:59 11/25/18 22:28 Baclofen (Lioresal) 10 mg THREE TIMES A DAY ORAL 11/24/18 09:00 12/18/18 08:59 11/26/18 14:06 Cefepime HCl 2 gm/ Dextrose 110 ml @ 220 mls/hr Q12HR@0300,1500 IV 11/24/18 15:00 11/29/18 14:59 11/26/18 15:30 Dextrose (Dextrose 50%) 25 ml Q30M PRN IV Hypoglycemia 11/24/18 07:00 12/24/18 06:59 Dextrose (Dextrose 50%) 50 ml Q30M PRN IV Hypoglycemia 11/24/18 07:15 12/24/18 07:14 Diltiazem HCl (Cardizem CD) 120 mg DAILY ORAL 11/24/18 09:00 12/23/18 08:59 11/26/18 08:52 Diltiazem HCl (Cardizem CD) 180 mg DAILY ORAL 11/24/18 09:00 12/23/18 08:59 11/26/18 08:52 Heparin Sodium (Porcine) (Heparin 5000 units/ml) 5,000 units EVERY 12 HOURS SUBQ 11/24/18 09:00 12/18/18 08:59 11/26/18 09:06 Levothyroxine Sodium (Synthroid) 25 mcg DAILY@0630 ORAL 11/25/18 06:30 12/18/18 06:29 11/26/18 05:44 Loperamide HCl (Imodium) 4 mg Q6H PRN ORAL Diarrhea 11/24/18 12:30 12/20/18 12:29 11/24/18 17:19 Metoprolol Tartrate (Lopressor) 25 mg Q12HR ORAL 11/25/18 04:15 12/25/18 04:14 11/26/18 08:52 Metronidazole (Flagyl) 500 mg Q8HR ORAL 11/24/18 14:00 11/29/18 13:59 11/26/18 14:06 Mirtazapine (Remeron) 15 mg BEDTIME ORAL 11/24/18 21:00 12/18/18 20:59 11/25/18 22:12 Morphine Sulfate (Morphine Sulfate) 2 mg Q4H PRN IVP Moderate Pain (Pain Scale 4-6) 11/25/18 04:15 12/02/18 04:14 11/26/18 05:05 Ondansetron HCl (Zofran) 4 mg Q6H PRN IVP Nausea & Vomiting 11/24/18 07:00 12/17/18 06:59 11/25/18 09:35 Oxycodone/ Acetaminophen (Percocet 10/325) 1 tab Q4H PRN ORAL Severe Breakthru Pain (>7) 11/25/18 04:15 12/02/18 04:14 11/26/18 16:02 Paroxetine HCl (Paxil) 40 mg DAILY ORAL 11/24/18 09:00 12/18/18 08:59 11/25/18 08:44 Patient Own Medication (Patient's Own Med) 1 ea Q12H ORAL 11/24/18 18:00 12/24/18 17:59 11/25/18 05:56 Patient Own Medication (Patient's Own Med) 1 ea QHS ORAL 11/25/18 21:00 12/25/18 20:59 Patient Own Medication (Patient's Own Med) 1 ea QHS ORAL 11/25/18 21:00 12/25/18 20:59 Phosphorus (Phospha 250 Neutral) 500 mg THREE TIMES A DAY ORAL 11/24/18 09:00 12/22/18 17:59 11/26/18 14:07 Potassium Chloride (K-Dur) 40 meq DAILY ORAL 11/24/18 12:45 12/24/18 12:44 11/25/18 08:43 Tamsulosin HCl (Flomax) 0.4 mg BID ORAL 11/24/18 09:00 12/18/18 20:59 11/26/18 08:52 Temazepam (Restoril) 15 mg HSPRN PRN ORAL Insomnia 11/24/18 07:00 12/01/18 06:59 José Yan MD November 26, 2018 20:19
[2018-11-27] VITALS: BP 95/61
[2018-11-27] MEDS: Cefepime HCl 2 GM in D5W 110 ML IV SCH ×2 (03:03→14:02)
[2018-11-27 04:00] VITALS: BP 91/55
[2018-11-27] MEDS: metroNIDAZOLE 500mg tab ORAL SCH ×3 (05:40→21:03)
[2018-11-27] MEDS: Levothyroxine 25mcg tab ORAL SCH (05:41)
[2018-11-27] MEDS: INTELENCE 200 MG ORAL SCH ×2 (05:41→18:00)
[2018-11-27 06:48] LABS: BASOPHILS % (AUTO) 0.7 % (0.0-2.0); EOSINOPHILS % (AUTO) 1.4 % (0.0-3.0); HEMATOCRIT 35.4 % (42.0-52.0); HEMOGLOBIN 12.2 G/DL (14.2-18.0); LYMPHOCYTES % (AUTO) 26.1 % (20.0-45.0); MEAN CORPUSCULAR VOLUME 93 FL (80-99); MONOCYTES % (AUTO) 8.6 % (1.0-10.0); NEUTROPHILS % (AUTO) 63.2 % (45.0-75.0); PLATELET COUNT 198 K/UL (150-450); RED BLOOD COUNT 3.81 M/UL (4.70-6.10); RED CELL DISTRIBUTION WIDTH 12.2 % (11.6-14.8); WHITE BLOOD COUNT 8.2 K/UL (4.8-10.8)
[2018-11-27 07:00] LABS: ANION GAP 10 mmol/L (5-15); BLOOD UREA NITROGEN 29 mg/dL (7-18); CALCIUM 8.9 MG/DL (8.5-10.1); CARBON DIOXIDE 25 MMOL/L (21-32); CHLORIDE 103 MMOL/L (98-107); CREATININE 1.3 MG/DL (0.55-1.30); POTASSIUM 3.6 MMOL/L (3.5-5.1); SODIUM 137 MMOL/L (136-145)
--- NOTE | 2018-11-27 07:05 | NUR ---
HAND-OFF: Report given to CHARLEY León.
--- NOTE | 2018-11-27 07:22 | NUR ---
NURSE NOTES: RN received pt in stable condition awake in bed. No acute distress or SOB. Bed in low, locked position, call light within reach. Will continue plan of care.
[2018-11-27 08:00] VITALS: BP 94/85
[2018-11-27] MEDS: Metoprolol 25mg tab ORAL SCH ×3 (09:00→21:03)
[2018-11-27] MEDS: Heparin 5000 units/ml inj SUBQ SCH ×2 (09:00→21:04)
[2018-11-27] MEDS: dilTIAZem HCl CD 120mg cap ORAL SCH ×2 (09:00→09:28)
[2018-11-27] MEDS: dilTIAZem HCl CD 180mg cap ORAL SCH ×2 (09:00→09:33)
[2018-11-27] MEDS: Phospha 250 Neutral tab ORAL SCH ×3 (09:31→18:00)
[2018-11-27] MEDS: Tamsulosin 0.4mg cap ORAL SCH ×2 (09:31→18:00)
[2018-11-27] MEDS: PARoxetine 20mg tab ORAL SCH (09:34)
[2018-11-27 12:00] VITALS: BP 116/69
--- NOTE | 2018-11-27 12:10 | General Progress Note ---
Assessment/Plan Status: stable, progressing Assessment/Plan: Assessment/Plan Problems: (1) Severe protein-calorie malnutrition ICD Codes: E43 - Unspecified severe protein-calorie malnutrition SNOMED: 925162186 (2) History of rectal cancer ICD Codes: Z85.048 - Personal history of other malignant neoplasm of rectum, rectosigmoid junction, and anus SNOMED: 323445489 (3) Intractable abdominal pain ICD Codes: R10.9 - Unspecified abdominal pain SNOMED: 49372679, 000232321 Status: stable, progressing Assessment/Plan Status post colonoscopy in September 2018 1. Focal proctitis suspicious for C. diff versus ulcerative colitis, status post biopsy. 2. Status post biopsy of the right and left colon to evaluate microscopic colitis. >> negative Rectal bleeding resolved Stable H&H C. difficile negative x2 Stool culture reviewed, gram-negative bacillus bowel regimen, hold stool softeners and laxatives increased lomotil for persistent diarrhea obtain records from [facility] monitor H&H fu ID recs Electrolyte correction Follow labs PPI Subjective Allergies: Coded Allergies: CODEINE (Unverified Allergy, Unknown, 11/28/17) EMTRICITABINE (Verified Allergy, Unknown, anxiousness, 08/31/18) SULFAMETHOXAZOLE (Unverified Allergy, Unknown, 10/27/17) TENOFOVIR (Verified Allergy, Unknown, anxiousness, 08/31/18) TRIMETHOPRIM (Unverified Allergy, Unknown, 10/27/17) Subjective feels better appetite better Objective Last 24 Hour Vital Signs Date Time Temp Pulse Resp B/P (MAP) Pulse Ox O2 Delivery O2 Flow Rate FiO2 11/27/18 12:00 98.8 83 18 116/69 (85) 97 11/27/18 09:00 Room Air 11/27/18 09:00 91 94/85 11/27/18 09:00 91 94/85 11/27/18 09:00 91 94/85 11/27/18 08:00 98.0 91 18 94/85 (88) 100 11/27/18 04:00 97.9 86 18 91/55 (67) 94 11/27/18 00:00 98.7 75 19 95/61 (72) 94 11/26/18 22:19 Room Air 11/26/18 21:00 94 104/72 11/26/18 20:00 98.1 92 19 100/64 (76) 96 11/26/18 16:32 98.7 11/26/18 16:05 98.7 94 19 104/72 (83) 94 Intake and Output 11/26/18 11/27/18 19:00 07:00 Intake Total 350 ml Output Total 450 ml 400 ml Balance -100 ml -400 ml Intake Oral 240 ml IV Total 110 ml Output Urine Total 450 ml 400 ml Laboratory Tests 11/27/18 06:00: White Blood Count 8.2, Red Blood Count 3.81L, Hemoglobin 12.2L, Hematocrit 35.4L , Mean Corpuscular Volume 93, Mean Corpuscular Hemoglobin 31.9H, Mean Corpuscular Hemoglobin Concent 34.3, Red Cell Distribution Width 12.2, Platelet Count 198, Mean Platelet Volume 7.3, Neutrophils (%) (Auto) 63.2, Lymphocytes (% ) (Auto) 26.1, Monocytes (%) (Auto) 8.6, Eosinophils (%) (Auto) 1.4, Basophils ( %) (Auto) 0.7, Sodium Level 137, Potassium Level 3.6, Chloride Level 103, Carbon Dioxide Level 25, Anion Gap 10, Blood Urea Nitrogen 29H, Creatinine 1.3, Estimat Glomerular Filtration Rate 54.6, Glucose Level 104, Calcium Level 8.9 Height (Feet): 5 Height (Inches): 5.00 Weight (Pounds): 153 Objective WDWN NCAT supple CTA RR abd soft no edema Brandy Barron MD November 27, 2018 12:10
--- NOTE | 2018-11-27 13:13 | Nephrology Progress Note ---
Assessment/Plan Problem List: (1) Sepsis (2) Fecal impaction (3) Hypokalemia (4) Hypothyroidism (5) HIV (human immunodeficiency virus infection) (6) Anemia Assessment Sepsis Possible PNA Acute kidney injury, possibly due to mild hydroureteronephrosis seen on CT scan -resolved Rectal CA, recently diagnosed HIV/AIDS Fecal retention History of CVA Hypertension Hypothyroidism Depression Hypokalemia Anemia Plan Plan: K , Phos supplement as needed stool softner Reglan as needed Gastric support Monitor lytes DC IV fluids per cardiology per orders Subjective ROS Limited/Unobtainable: No Objective Objective Last 24 Hour Vital Signs Date Time Temp Pulse Resp B/P (MAP) Pulse Ox O2 Delivery O2 Flow Rate FiO2 11/27/18 12:00 98.8 83 18 116/69 (85) 97 11/27/18 09:00 Room Air 11/27/18 09:00 91 94/85 11/27/18 09:00 91 94/85 11/27/18 09:00 91 94/85 11/27/18 08:00 98.0 91 18 94/85 (88) 100 11/27/18 04:00 97.9 86 18 91/55 (67) 94 11/27/18 00:00 98.7 75 19 95/61 (72) 94 11/26/18 22:19 Room Air 11/26/18 21:00 94 104/72 11/26/18 20:00 98.1 92 19 100/64 (76) 96 11/26/18 16:32 98.7 11/26/18 16:05 98.7 94 19 104/72 (83) 94 Intake and Output 11/26/18 11/27/18 18:59 06:59 Intake Total 350 ml Output Total 450 ml 400 ml Balance -100 ml -400 ml Intake Oral 240 ml IV Total 110 ml Output Urine Total 450 ml 400 ml Laboratory Tests 11/27/18 06:00: White Blood Count 8.2, Red Blood Count 3.81L, Hemoglobin 12.2L, Hematocrit 35.4L , Mean Corpuscular Volume 93, Mean Corpuscular Hemoglobin 31.9H, Mean Corpuscular Hemoglobin Concent 34.3, Red Cell Distribution Width 12.2, Platelet Count 198, Mean Platelet Volume 7.3, Neutrophils (%) (Auto) 63.2, Lymphocytes (% ) (Auto) 26.1, Monocytes (%) (Auto) 8.6, Eosinophils (%) (Auto) 1.4, Basophils ( %) (Auto) 0.7, Sodium Level 137, Potassium Level 3.6, Chloride Level 103, Carbon Dioxide Level 25, Anion Gap 10, Blood Urea Nitrogen 29H, Creatinine 1.3, Estimat Glomerular Filtration Rate 54.6, Glucose Level 104, Calcium Level 8.9 Height (Feet): 5 Height (Inches): 5.00 Weight (Pounds): 153 General Appearance: no apparent distress Objective no change Hayden Andres MD November 27, 2018 13:13
--- NOTE | 2018-11-27 13:35 | Internal Med Progress Note ---
Subjective Date of Service: November 27, 2018 Physician Name Trey Whitaker Attending Physician Carlos Barragan MD Current Medications Medications (Trade) Dose Ordered Sig/Roman Route PRN Reason Start Time Stop Time Status Last Admin Dose Admin Acetaminophen (Tylenol) 650 mg Q4H PRN ORAL fever 11/24/18 07:00 12/17/18 22:59 11/25/18 22:28 Baclofen (Lioresal) 10 mg THREE TIMES A DAY ORAL 11/24/18 09:00 12/18/18 08:59 11/27/18 09:34 Cefepime HCl 2 gm/ Dextrose 110 ml @ 220 mls/hr Q12HR@0300,1500 IV 11/24/18 15:00 11/29/18 14:59 11/27/18 03:03 Dextrose (Dextrose 50%) 25 ml Q30M PRN IV Hypoglycemia 11/24/18 07:00 12/24/18 06:59 Dextrose (Dextrose 50%) 50 ml Q30M PRN IV Hypoglycemia 11/24/18 07:15 12/24/18 07:14 Diltiazem HCl (Cardizem CD) 120 mg DAILY ORAL 11/24/18 09:00 12/23/18 08:59 11/26/18 08:52 Diltiazem HCl (Cardizem CD) 180 mg DAILY ORAL 11/24/18 09:00 12/23/18 08:59 11/26/18 08:52 Heparin Sodium (Porcine) (Heparin 5000 units/ml) 5,000 units EVERY 12 HOURS SUBQ 11/24/18 09:00 12/18/18 08:59 11/26/18 21:01 Levothyroxine Sodium (Synthroid) 25 mcg DAILY@0630 ORAL 11/25/18 06:30 12/18/18 06:29 11/27/18 05:41 Loperamide HCl (Imodium) 4 mg Q6H PRN ORAL Diarrhea 11/24/18 12:30 12/20/18 12:29 11/24/18 17:19 Metoprolol Tartrate (Lopressor) 25 mg Q12HR ORAL 11/25/18 04:15 12/25/18 04:14 11/26/18 21:00 Metronidazole (Flagyl) 500 mg Q8HR ORAL 11/24/18 14:00 11/29/18 13:59 11/27/18 05:40 Mirtazapine (Remeron) 15 mg BEDTIME ORAL 11/24/18 21:00 12/18/18 20:59 11/26/18 21:00 Morphine Sulfate (Morphine Sulfate) 2 mg Q4H PRN IVP Moderate Pain (Pain Scale 4-6) 11/25/18 04:15 12/02/18 04:14 11/26/18 05:05 Ondansetron HCl (Zofran) 4 mg Q6H PRN IVP Nausea & Vomiting 11/24/18 07:00 12/17/18 06:59 11/25/18 09:35 Oxycodone/ Acetaminophen (Percocet 10/325) 1 tab Q4H PRN ORAL Severe Breakthru Pain (>7) 11/25/18 04:15 12/02/18 04:14 11/26/18 16:02 Paroxetine HCl (Paxil) 40 mg DAILY ORAL 11/24/18 09:00 12/18/18 08:59 11/27/18 09:34 Patient Own Medication (Patient's Own Med) 1 ea Q12H ORAL 11/24/18 18:00 12/24/18 17:59 11/27/18 05:41 Patient Own Medication (Patient's Own Med) 1 ea QHS ORAL 11/25/18 21:00 12/25/18 20:59 11/26/18 21:23 Patient Own Medication (Patient's Own Med) 1 ea QHS ORAL 11/25/18 21:00 12/25/18 20:59 11/26/18 21:23 Phosphorus (Phospha 250 Neutral) 500 mg THREE TIMES A DAY ORAL 11/24/18 09:00 12/22/18 17:59 11/27/18 09:31 Potassium Chloride (K-Dur) 40 meq DAILY ORAL 11/24/18 12:45 12/24/18 12:44 11/27/18 09:32 Tamsulosin HCl (Flomax) 0.4 mg BID ORAL 11/24/18 09:00 12/18/18 20:59 11/27/18 09:31 Temazepam (Restoril) 15 mg HSPRN PRN ORAL Insomnia 11/24/18 07:00 12/01/18 06:59 Allergies: Coded Allergies: CODEINE (Unverified Allergy, Unknown, 5/28/18) EMTRICITABINE (Verified Allergy, Unknown, anxiousness, 08/31/18) SULFAMETHOXAZOLE (Unverified Allergy, Unknown, 10/27/17) TENOFOVIR (Verified Allergy, Unknown, anxiousness, 08/31/18) TRIMETHOPRIM (Unverified Allergy, Unknown, 10/27/17) ROS Limited/Unobtainable: No Constitutional: Reports: no symptoms HEENT: Reports: no symptoms Cardiovascular: Reports: no symptoms Respiratory: Reports: no symptoms Gastrointestinal/Abdominal: Reports: no symptoms Genitourinary: Reports: no symptoms 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: Reports: no symptoms Subjective 68 YO M admitted with constipation rectal bleeding. Cover for Int Arun-Dr Barragan. Objective Last Vital Signs Date Time Temp Pulse Resp B/P (MAP) Pulse Ox O2 Delivery O2 Flow Rate FiO2 11/27/18 12:00 98.8 83 18 116/69 (85) 97 11/27/18 09:00 Room Air 11/24/18 08:05 21 Laboratory Tests Test 11/27/18 06:00 White Blood Count 8.2 K/UL (4.8-10.8) Red Blood Count 3.81 M/UL (4.70-6.10) L Hemoglobin 12.2 G/DL (14.2-18.0) L Hematocrit 35.4 % (42.0-52.0) L Mean Corpuscular Volume 93 FL (80-99) Mean Corpuscular Hemoglobin 31.9 PG (27.0-31.0) H Mean Corpuscular Hemoglobin Concent 34.3 G/DL (32.0-36.0) Red Cell Distribution Width 12.2 % (11.6-14.8) Platelet Count 198 K/UL (150-450) Mean Platelet Volume 7.3 FL (6.5-10.1) Neutrophils (%) (Auto) 63.2 % (45.0-75.0) Lymphocytes (%) (Auto) 26.1 % (20.0-45.0) Monocytes (%) (Auto) 8.6 % (1.0-10.0) Eosinophils (%) (Auto) 1.4 % (0.0-3.0) Basophils (%) (Auto) 0.7 % (0.0-2.0) Sodium Level 137 MMOL/L (136-145) Potassium Level 3.6 MMOL/L (3.5-5.1) Chloride Level 103 MMOL/L (98-107) Carbon Dioxide Level 25 MMOL/L (21-32) Anion Gap 10 mmol/L (5-15) Blood Urea Nitrogen 29 mg/dL (7-18) H Creatinine 1.3 MG/DL (0.55-1.30) Estimat Glomerular Filtration Rate 54.6 mL/min (>60) Glucose Level 104 MG/DL (74-106) Calcium Level 8.9 MG/DL (8.5-10.1) Intake and Output 11/26/18 11/27/18 19:00 07:00 Intake Total 350 ml Output Total 450 ml 400 ml Balance -100 ml -400 ml Intake Oral 240 ml IV Total 110 ml Output Urine Total 450 ml 400 ml Objective PHYSICAL EXAMINATION: GENERAL: The patient is a well-developed and well-nourished white male, in no apparent distress. HEENT: Eyes, pupils equal and responsive to light and accommodation. Extraocular movements are intact. NECK: Supple without lymphadenopathy. CHEST: Lungs are clear to auscultation bilaterally without wheezes or rales. CARDIOVASCULAR: Regular rhythm and rate. S1 and S2 are normal without murmurs, rubs, or gallops. ABDOMEN: Soft, nontender, and nondistended. Positive bowel sounds. No evidence of hepatosplenomegaly. Currently, no rebound or guarding noted. EXTREMITIES: Negative for clubbing, cyanosis, or edema. RECTAL/GENITAL: Refused. NEUROLOGIC: Cranial nerves II through XII are grossly intact without focal deficits. Motor strength is 5/5 bilaterally. Deep tendon reflexes are 2+ plantar. Assessment/Plan Assessment/Plan ASSESSMENT: This is a 68-year-old white male. 1. Left abdominal pain. 2. Constipation. 3. Rectal bleeding. 4. Left hydronephrosis. 5. Hypertension. 6. HIV. 7. Hypothyroidism. 8. History of rectal cancer. 9. Cerebrovascular disease. 10. Major depression. 11. Anxiety. 12. Benign prostatic hypertrophy. 13. Paroxysmal supraventricular tachycardia TREATMENT: 1. Constipation/abdominal pain/rectal hemorrhage. Gastroenterology consultation with Dr. Dejan Germain. S/P colonoscopy 09/18. C.Diff = neg 2. Right hydronephrosis. There is no definite stone seen. The patient may have passed a renal calculus. 3. Hypertension. Continue metoprolol and amlodipine as above. 4. HIV. Continue HAART per Infectious Disease. 5. Hypothyroidism. Continue Levoxyl as above. 6. History of rectal cancer. The patient is status post biopsy at [facility]. 7. Cerebrovascular disease. 8. Major depression. Continue Paxil as above. 9. Anxiety. 10. Benign prostatic hypertrophy. Continue Flomax and oxybutynin as above. 11. Await cardiology consult 12. Abx=flagyl and cefepime per ID 13. Discharge planning Trey Whitaker MD November 27, 2018 13:35
--- NOTE | 2018-11-27 14:02 | Cardiac Electrophysiology PN ---
Assessment/Plan Assessment/Plan 1. Recurrent episodes of SVT. EF of 60%. EPS and ablation as out patient S/P multiple doses of IV metoprolol to terminate the arrhythmia. On Cardizem CD 300 daily and metoprolol 25 bid. No recurrence 2. Hypertension. On Cardizem and Metoprolol 3. HIV and AIDS. 4. Fever and Sepsis, on IV antibiotic. 5. Rectal bleeding. FU by Dr. Germain due to rectal cancer. 6. Abdominal pain. ORALIA RN Subjective Subjective BP meds were held as BP was low. Also has diarrhea Objective Last 24 Hour Vital Signs Date Time Temp Pulse Resp B/P (MAP) Pulse Ox O2 Delivery O2 Flow Rate FiO2 11/27/18 12:00 98.8 83 18 116/69 (85) 97 11/27/18 09:00 Room Air 11/27/18 09:00 91 94/85 11/27/18 09:00 91 94/85 11/27/18 09:00 91 94/85 11/27/18 08:00 98.0 91 18 94/85 (88) 100 11/27/18 04:00 97.9 86 18 91/55 (67) 94 11/27/18 00:00 98.7 75 19 95/61 (72) 94 11/26/18 22:19 Room Air 11/26/18 21:00 94 104/72 11/26/18 20:00 98.1 92 19 100/64 (76) 96 11/26/18 16:32 98.7 11/26/18 16:05 98.7 94 19 104/72 (83) 94 Intake and Output 11/26/18 11/27/18 19:00 07:00 Intake Total 350 ml Output Total 450 ml 400 ml Balance -100 ml -400 ml Intake Oral 240 ml IV Total 110 ml Output Urine Total 450 ml 400 ml Laboratory Tests Test 11/27/18 06:00 White Blood Count 8.2 K/UL (4.8-10.8) Red Blood Count 3.81 M/UL (4.70-6.10) L Hemoglobin 12.2 G/DL (14.2-18.0) L Hematocrit 35.4 % (42.0-52.0) L Mean Corpuscular Volume 93 FL (80-99) Mean Corpuscular Hemoglobin 31.9 PG (27.0-31.0) H Mean Corpuscular Hemoglobin Concent 34.3 G/DL (32.0-36.0) Red Cell Distribution Width 12.2 % (11.6-14.8) Platelet Count 198 K/UL (150-450) Mean Platelet Volume 7.3 FL (6.5-10.1) Neutrophils (%) (Auto) 63.2 % (45.0-75.0) Lymphocytes (%) (Auto) 26.1 % (20.0-45.0) Monocytes (%) (Auto) 8.6 % (1.0-10.0) Eosinophils (%) (Auto) 1.4 % (0.0-3.0) Basophils (%) (Auto) 0.7 % (0.0-2.0) Sodium Level 137 MMOL/L (136-145) Potassium Level 3.6 MMOL/L (3.5-5.1) Chloride Level 103 MMOL/L (98-107) Carbon Dioxide Level 25 MMOL/L (21-32) Anion Gap 10 mmol/L (5-15) Blood Urea Nitrogen 29 mg/dL (7-18) H Creatinine 1.3 MG/DL (0.55-1.30) Estimat Glomerular Filtration Rate 54.6 mL/min (>60) Glucose Level 104 MG/DL (74-106) Calcium Level 8.9 MG/DL (8.5-10.1) Objective HEAD AND NECK: No JVD. LUNGS: Clear. CARDIOVASCULAR: Regular S1 and S2 with no gallop or murmur. ABDOMEN: Soft. EXTREMITIES: No pitting edema. Abel Mendez MD November 27, 2018 14:02
[2018-11-27] MEDS ORDERED: PAROXETINE HCL20 MG ORAL (15:39)
[2018-11-27] MEDS ORDERED: FLAGYL500 MG ORAL (15:39)
[2018-11-27] MEDS ORDERED: CARDIZEM CD180 MG ORAL (15:39)
[2018-11-27] MEDS ORDERED: SYNTHROID25 MCG ORAL (15:39)
--- NOTE | 2018-11-27 15:40 | Pulmonology Progress Note ---
Assessment/Plan Problems: (1) Sepsis (2) ATN (acute tubular necrosis) (3) Intractable abdominal pain (4) Diarrhea (5) History of rectal cancer (6) C. difficile colitis (7) Severe protein-calorie malnutrition (8) HIV (human immunodeficiency virus infection) Assessment/Plan afebrile, wants to go home doing better indium scan in process CD4 count noted, it is 17 improving dc planning Subjective ROS Limited/Unobtainable: No Constitutional: Reports: no symptoms HEENT: Repors: no symptoms Respiratory: Reports: no symptoms Allergies: Coded Allergies: CODEINE (Unverified Allergy, Unknown, 11/28/17) EMTRICITABINE (Verified Allergy, Unknown, anxiousness, 08/31/18) SULFAMETHOXAZOLE (Unverified Allergy, Unknown, 10/27/17) TENOFOVIR (Verified Allergy, Unknown, anxiousness, 08/31/18) TRIMETHOPRIM (Unverified Allergy, Unknown, 10/27/17) Objective Last 24 Hour Vital Signs Date Time Temp Pulse Resp B/P (MAP) Pulse Ox O2 Delivery O2 Flow Rate FiO2 11/27/18 12:00 98.8 83 18 116/69 (85) 97 11/27/18 09:00 Room Air 11/27/18 09:00 91 94/85 11/27/18 09:00 91 94/85 11/27/18 09:00 91 94/85 11/27/18 08:00 98.0 91 18 94/85 (88) 100 11/27/18 04:00 97.9 86 18 91/55 (67) 94 11/27/18 00:00 98.7 75 19 95/61 (72) 94 11/26/18 22:19 Room Air 11/26/18 21:00 94 104/72 11/26/18 20:00 98.1 92 19 100/64 (76) 96 11/26/18 16:32 98.7 11/26/18 16:05 98.7 94 19 104/72 (83) 94 Intake and Output 11/26/18 11/27/18 18:59 06:59 Intake Total 350 ml Output Total 450 ml 400 ml Balance -100 ml -400 ml Intake Oral 240 ml IV Total 110 ml Output Urine Total 450 ml 400 ml Objective General Appearance: cachetic HEENT: normocephalic, atraumatic Respiratory/Chest: chest wall non-tender, lungs clear Cardiovascular: normal peripheral pulses, normal rate Abdomen: normal bowel sounds, no organomegaly Extremities: no cyanosis Skin: no lesions Laboratory Tests 11/27/18 06:00: White Blood Count 8.2, Red Blood Count 3.81L, Hemoglobin 12.2L, Hematocrit 35.4L , Mean Corpuscular Volume 93, Mean Corpuscular Hemoglobin 31.9H, Mean Corpuscular Hemoglobin Concent 34.3, Red Cell Distribution Width 12.2, Platelet Count 198, Mean Platelet Volume 7.3, Neutrophils (%) (Auto) 63.2, Lymphocytes (% ) (Auto) 26.1, Monocytes (%) (Auto) 8.6, Eosinophils (%) (Auto) 1.4, Basophils ( %) (Auto) 0.7, Sodium Level 137, Potassium Level 3.6, Chloride Level 103, Carbon Dioxide Level 25, Anion Gap 10, Blood Urea Nitrogen 29H, Creatinine 1.3, Estimat Glomerular Filtration Rate 54.6, Glucose Level 104, Calcium Level 8.9 Current Medications Medications (Trade) Dose Ordered Sig/Roman Route PRN Reason Start Time Stop Time Status Last Admin Dose Admin Acetaminophen (Tylenol) 650 mg Q4H PRN ORAL fever 11/24/18 07:00 12/17/18 22:59 11/25/18 22:28 Baclofen (Lioresal) 10 mg THREE TIMES A DAY ORAL 11/24/18 09:00 12/18/18 08:59 11/27/18 13:51 Cefepime HCl 2 gm/ Dextrose 110 ml @ 220 mls/hr Q12HR@0300,1500 IV 11/24/18 15:00 11/29/18 14:59 11/27/18 14:02 Dextrose (Dextrose 50%) 25 ml Q30M PRN IV Hypoglycemia 11/24/18 07:00 12/24/18 06:59 Dextrose (Dextrose 50%) 50 ml Q30M PRN IV Hypoglycemia 11/24/18 07:15 12/24/18 07:14 Diltiazem HCl (Cardizem CD) 120 mg DAILY ORAL 11/24/18 09:00 12/23/18 08:59 11/26/18 08:52 Diltiazem HCl (Cardizem CD) 180 mg DAILY ORAL 11/24/18 09:00 12/23/18 08:59 11/26/18 08:52 Heparin Sodium (Porcine) (Heparin 5000 units/ml) 5,000 units EVERY 12 HOURS SUBQ 11/24/18 09:00 12/18/18 08:59 11/26/18 21:01 Levothyroxine Sodium (Synthroid) 25 mcg DAILY@0630 ORAL 11/25/18 06:30 12/18/18 06:29 11/27/18 05:41 Loperamide HCl (Imodium) 4 mg Q6H PRN ORAL Diarrhea 11/24/18 12:30 12/20/18 12:29 11/24/18 17:19 Metoprolol Tartrate (Lopressor) 25 mg Q12HR ORAL 11/25/18 04:15 12/25/18 04:14 11/26/18 21:00 Metronidazole (Flagyl) 500 mg Q8HR ORAL 11/24/18 14:00 11/29/18 13:59 11/27/18 13:51 Mirtazapine (Remeron) 15 mg BEDTIME ORAL 11/24/18 21:00 12/18/18 20:59 11/26/18 21:00 Morphine Sulfate (Morphine Sulfate) 2 mg Q4H PRN IVP Moderate Pain (Pain Scale 4-6) 11/25/18 04:15 12/02/18 04:14 11/26/18 05:05 Ondansetron HCl (Zofran) 4 mg Q6H PRN IVP Nausea & Vomiting 11/24/18 07:00 12/17/18 06:59 11/25/18 09:35 Oxycodone/ Acetaminophen (Percocet 10/325) 1 tab Q4H PRN ORAL Severe Breakthru Pain (>7) 11/25/18 04:15 12/02/18 04:14 11/26/18 16:02 Paroxetine HCl (Paxil) 40 mg DAILY ORAL 11/24/18 09:00 12/18/18 08:59 11/27/18 09:34 Patient Own Medication (Patient's Own Med) 1 ea Q12H ORAL 11/24/18 18:00 12/24/18 17:59 11/27/18 05:41 Patient Own Medication (Patient's Own Med) 1 ea QHS ORAL 11/25/18 21:00 12/25/18 20:59 11/26/18 21:23 Patient Own Medication (Patient's Own Med) 1 ea QHS ORAL 11/25/18 21:00 12/25/18 20:59 11/26/18 21:23 Phosphorus (Phospha 250 Neutral) 500 mg THREE TIMES A DAY ORAL 11/24/18 09:00 12/22/18 17:59 11/27/18 09:31 Potassium Chloride (K-Dur) 40 meq DAILY ORAL 11/24/18 12:45 12/24/18 12:44 11/27/18 09:32 Tamsulosin HCl (Flomax) 0.4 mg BID ORAL 11/24/18 09:00 12/18/18 20:59 11/27/18 09:31 Temazepam (Restoril) 15 mg HSPRN PRN ORAL Insomnia 11/24/18 07:00 12/01/18 06:59 Oliverio Rm MD November 27, 2018 15:40
[2018-11-27 16:00] VITALS: BP 136/81
--- NOTE | 2018-11-27 16:14 | NUR ---
NURSE NOTES: RN received discharge order for pt. RN attempted to contact next of kin; number goes to pt's previous facility [facility]. RN asked to speak to case managers or nurse talent acquisition operations manager re if a bed is available for a mutual pt to be transferred back to facility. RN was informed talent acquisition operations manager not available due to holiday; call back tomorrow.
--- NOTE | 2018-11-27 17:57 | NUR ---
NURSE NOTES: Pt states he has pain and irritation during urination. RN informed Dr. Rm. No new orders received.
--- NOTE | 2018-11-27 18:19 | NUR ---
NURSE NOTES: Pt stated he was nauseous and refused evening medication stating he "can't swallow while nauseous". RN administered Zorfran as ordered PRN for nausea.
--- NOTE | 2018-11-27 19:08 | NUR ---
HAND-OFF: Report given to CHARLEY Conteh.
--- NOTE | 2018-11-27 19:35 | NUR ---
NURSE NOTES: Pt is in bed, awake and verbal. No acute distress noted. Pt has discharge order, pt has to be placed to a facility by case management. Pt will be turned and cleaned as needed. Bed locked low in position,side rails up and call light within reach. Bed alarm on. pt will be monitored.
[2018-11-27 20:00] VITALS: BP 117/70
--- NOTE | 2018-11-27 21:20 | NUR ---
NURSE NOTES: Pt refused the HIV Meds; Prezista and Genvoya. Pt states that he feel burning sensation when he urinates.
--- NOTE | 2018-11-27 22:02 | NUR ---
NURSE NOTES: Dr. Yan's office is called regarding pt's complaint of urinary burning sensation. Message left with Dileep to call back.
[2018-11-28] VITALS: BP 122/83
--- NOTE | 2018-11-28 | NUR ---
NURSE NOTES: Dr. Braswell ordered to collect urine UA and culture.
--- NOTE | 2018-11-28 01:00 | NUR ---
NURSE NOTES: Pt was cleaned multiple times and turned. Pt had three regular BMs. Pt is instructed to collect urine for lab, specimen container left in the room to collect. Pt is handed a urinal.
[2018-11-28] MEDS: Cefepime HCl 2 GM in D5W 110 ML IV SCH ×2 (03:57→14:02)
[2018-11-28 04:00] VITALS: BP 113/77
[2018-11-28] MEDS: INTELENCE 200 MG ORAL SCH (06:00)
[2018-11-28 06:23] LABS: BASOPHILS % (AUTO) 0.8 % (0.0-2.0); HEMATOCRIT 38.4 % (42.0-52.0); HEMOGLOBIN 13.3 G/DL (14.2-18.0); LYMPHOCYTES % (AUTO) 26.4 % (20.0-45.0); MEAN CORPUSCULAR VOLUME 93 FL (80-99); MONOCYTES % (AUTO) 7.6 % (1.0-10.0); NEUTROPHILS % (AUTO) 64.2 % (45.0-75.0); PLATELET COUNT 227 K/UL (150-450); RED BLOOD COUNT 4.15 M/UL (4.70-6.10); RED CELL DISTRIBUTION WIDTH 12.3 % (11.6-14.8); WHITE BLOOD COUNT 10.9 K/UL (4.8-10.8)
[2018-11-28] MEDS: Levothyroxine 25mcg tab ORAL SCH (06:29)
[2018-11-28] MEDS: metroNIDAZOLE 500mg tab ORAL SCH ×3 (06:29→23:47)
[2018-11-28 06:51] LABS: ANION GAP 10 mmol/L (5-15); BLOOD UREA NITROGEN 23 mg/dL (7-18); CALCIUM 8.7 MG/DL (8.5-10.1); CARBON DIOXIDE 22 MMOL/L (21-32); CHLORIDE 105 MMOL/L (98-107); CREATININE 1.1 MG/DL (0.55-1.30); POTASSIUM 3.7 MMOL/L (3.5-5.1); SODIUM 137 MMOL/L (136-145)
--- NOTE | 2018-11-28 07:05 | NUR ---
HAND-OFF: Report given to CHARLEY Marcelo. Informed to send urine for UA and culture. .
--- NOTE | 2018-11-28 07:30 | NUR ---
NURSE NOTES: Received pt from RN ADEEL. Pt is alert and orient x4. pt is in RA, No SOB or acute respiratory distress noted. pt has intact iv access L wrist 22g SL. all needs attended, bed is locked and is in the lowest position, call light within easy reach. will continue to monitor.
[2018-11-28 08:00] VITALS: BP 134/83
[2018-11-28] MEDS: PARoxetine 20mg tab ORAL SCH (09:00)
[2018-11-28] MEDS: Heparin 5000 units/ml inj SUBQ SCH ×2 (09:00→23:47)
[2018-11-28] MEDS: Phospha 250 Neutral tab ORAL SCH ×3 (09:24→17:47)
[2018-11-28] MEDS: Tamsulosin 0.4mg cap ORAL SCH ×2 (09:25→17:10)
[2018-11-28] MEDS: dilTIAZem HCl CD 180mg cap ORAL SCH (09:26)
[2018-11-28] MEDS: Metoprolol 25mg tab ORAL SCH ×2 (09:27→23:47)
[2018-11-28] MEDS: dilTIAZem HCl CD 120mg cap ORAL SCH (09:28)
--- NOTE | 2018-11-28 09:55 | NUR ---
NURSE NOTES: pt stated doesn't have urine for 2 days, bladder scan done 550ml, Dr Whitaker notified ordered to do straight cath and done with 600 ml out put and UA/UC sent to lab waiting for result. will continue to monitor.
[2018-11-28] MEDS: Loperamide 2mg cap ORAL PRN (10:13)
--- NOTE | 2018-11-28 10:15 | NUR ---
NURSE NOTES: pt has diarrhea, SENIOR LOAN PROCESSOR NAKITA is aware, no new order to RN. Will continue to monitor.
--- NOTE | 2018-11-28 10:30 | GI Progress Note ---
Assessment/Plan Problems: (1) Severe protein-calorie malnutrition ICD Codes: E43 - Unspecified severe protein-calorie malnutrition SNOMED: 067468091 (2) History of rectal cancer ICD Codes: Z85.048 - Personal history of other malignant neoplasm of rectum, rectosigmoid junction, and anus SNOMED: 228723077 (3) Intractable abdominal pain ICD Codes: R10.9 - Unspecified abdominal pain SNOMED: 89705250, 387492379 Status: unchanged Status Narrative Discussed with Dr. Germain Assessment/Plan Status post colonoscopy in September 2018 1. Focal proctitis suspicious for C. diff versus ulcerative colitis, status post biopsy. 2. Status post biopsy of the right and left colon to evaluate microscopic colitis. >> negative Rectal bleeding resolved Stable H&H C. difficile negative x2 Stool culture reviewed, gram-negative bacillus Advance diet as tolerated bowel regimen, hold stool softeners and laxatives increased Lomotil for persistent diarrhea obtain records from [facility] monitor H&H fu ID recs Electrolyte correction Follow labs PPI The patient was seen and examined at bedside and all new and available data was reviewed in the patients chart. I agree with the above findings, impression and plan. (Patient seen earlier today. Signature stamp does not reflect patient encounter time.). - Dejan Germain MD Subjective Subjective Rectal bleeding resolved continues to complain of diarrhea, has not improved with medication Objective Last 24 Hour Vital Signs Date Time Temp Pulse Resp B/P (MAP) Pulse Ox O2 Delivery O2 Flow Rate FiO2 11/28/18 09:28 96 134/83 11/28/18 09:27 96 134/83 11/28/18 09:26 96 134/83 11/28/18 08:00 98.1 96 16 134/83 (100) 96 11/28/18 04:00 98.3 99 18 113/77 (89) 94 11/28/18 00:00 98.6 94 20 122/83 (96) 94 11/27/18 21:03 101 117/70 11/27/18 21:00 Room Air 11/27/18 20:00 98.9 101 18 117/70 (86) 95 11/27/18 16:00 98.6 91 20 136/81 (99) 97 11/27/18 12:00 98.8 83 18 116/69 (85) 97 Intake and Output 11/27/18 11/28/18 19:00 07:00 Intake Total 300 ml 350 ml Balance 300 ml 350 ml Intake Oral 300 ml 240 ml IV Total 110 ml # Voids 2 2 # Bowel Movements 1 5 Laboratory Tests Test 11/28/18 05:20 White Blood Count 10.9 K/UL (4.8-10.8) H Red Blood Count 4.15 M/UL (4.70-6.10) L Hemoglobin 13.3 G/DL (14.2-18.0) L Hematocrit 38.4 % (42.0-52.0) L Mean Corpuscular Volume 93 FL (80-99) Mean Corpuscular Hemoglobin 32.0 PG (27.0-31.0) H Mean Corpuscular Hemoglobin Concent 34.6 G/DL (32.0-36.0) Red Cell Distribution Width 12.3 % (11.6-14.8) Platelet Count 227 K/UL (150-450) Mean Platelet Volume 8.1 FL (6.5-10.1) Neutrophils (%) (Auto) 64.2 % (45.0-75.0) Lymphocytes (%) (Auto) 26.4 % (20.0-45.0) Monocytes (%) (Auto) 7.6 % (1.0-10.0) Eosinophils (%) (Auto) 1.0 % (0.0-3.0) Basophils (%) (Auto) 0.8 % (0.0-2.0) Sodium Level 137 MMOL/L (136-145) Potassium Level 3.7 MMOL/L (3.5-5.1) Chloride Level 105 MMOL/L (98-107) Carbon Dioxide Level 22 MMOL/L (21-32) Anion Gap 10 mmol/L (5-15) Blood Urea Nitrogen 23 mg/dL (7-18) H Creatinine 1.1 MG/DL (0.55-1.30) Estimat Glomerular Filtration Rate > 60 mL/min (>60) Glucose Level 114 MG/DL (74-106) H Calcium Level 8.7 MG/DL (8.5-10.1) Height (Feet): 5 Height (Inches): 5.00 Weight (Pounds): 153 General Appearance: WD/WN, no apparent distress, alert Cardiovascular: normal rate Respiratory/Chest: normal breath sounds, no respiratory distress Abdominal Exam: normal bowel sounds, non tender, soft, other Extremities: normal range of motion, non-tender Jasen Brink NP November 28, 2018 10:30
--- NOTE | 2018-11-28 10:49 | Cardiac Electrophysiology PN ---
Assessment/Plan Assessment/Plan 1. Recurrent episodes of SVT. EF of 60%. EPS and ablation as out patient S/P multiple doses of IV metoprolol to terminate the arrhythmia. On Cardizem CD 300 daily and metoprolol 25 bid. No recurrence 2. Hypertension. On Cardizem and Metoprolol 3. HIV and AIDS. 4. Fever and Sepsis, on IV antibiotic. 5. Rectal bleeding. FU by Dr. Germain due to rectal cancer. 6. Abdominal pain. 7. Urinary retention. S/P Straight cath today with 600 cc removal. DW RN Subjective Subjective No new events. Very weak. WBC rising today. Had urinary retention. Had 600 cc drainage with straight cath Objective Last 24 Hour Vital Signs Date Time Temp Pulse Resp B/P (MAP) Pulse Ox O2 Delivery O2 Flow Rate FiO2 11/28/18 09:28 96 134/83 11/28/18 09:27 96 134/83 11/28/18 09:26 96 134/83 11/28/18 09:00 Room Air 11/28/18 08:00 98.1 96 16 134/83 (100) 96 11/28/18 04:00 98.3 99 18 113/77 (89) 94 11/28/18 00:00 98.6 94 20 122/83 (96) 94 11/27/18 21:03 101 117/70 11/27/18 21:00 Room Air 11/27/18 20:00 98.9 101 18 117/70 (86) 95 11/27/18 16:00 98.6 91 20 136/81 (99) 97 11/27/18 12:00 98.8 83 18 116/69 (85) 97 Intake and Output 11/27/18 11/28/18 19:00 07:00 Intake Total 300 ml 350 ml Balance 300 ml 350 ml Intake Oral 300 ml 240 ml IV Total 110 ml # Voids 2 2 # Bowel Movements 1 5 Laboratory Tests Test 11/28/18 05:20 White Blood Count 10.9 K/UL (4.8-10.8) H Red Blood Count 4.15 M/UL (4.70-6.10) L Hemoglobin 13.3 G/DL (14.2-18.0) L Hematocrit 38.4 % (42.0-52.0) L Mean Corpuscular Volume 93 FL (80-99) Mean Corpuscular Hemoglobin 32.0 PG (27.0-31.0) H Mean Corpuscular Hemoglobin Concent 34.6 G/DL (32.0-36.0) Red Cell Distribution Width 12.3 % (11.6-14.8) Platelet Count 227 K/UL (150-450) Mean Platelet Volume 8.1 FL (6.5-10.1) Neutrophils (%) (Auto) 64.2 % (45.0-75.0) Lymphocytes (%) (Auto) 26.4 % (20.0-45.0) Monocytes (%) (Auto) 7.6 % (1.0-10.0) Eosinophils (%) (Auto) 1.0 % (0.0-3.0) Basophils (%) (Auto) 0.8 % (0.0-2.0) Sodium Level 137 MMOL/L (136-145) Potassium Level 3.7 MMOL/L (3.5-5.1) Chloride Level 105 MMOL/L (98-107) Carbon Dioxide Level 22 MMOL/L (21-32) Anion Gap 10 mmol/L (5-15) Blood Urea Nitrogen 23 mg/dL (7-18) H Creatinine 1.1 MG/DL (0.55-1.30) Estimat Glomerular Filtration Rate > 60 mL/min (>60) Glucose Level 114 MG/DL (74-106) H Calcium Level 8.7 MG/DL (8.5-10.1) Objective HEAD AND NECK: No JVD. LUNGS: Clear. CARDIOVASCULAR: Regular S1 and S2 with no gallop or murmur. ABDOMEN: Soft. EXTREMITIES: No pitting edema. Abel Mendez MD November 28, 2018 10:49
[2018-11-28 11:11] LABS: APPEARANCE,URINE CLEAR; BILIRUBIN, URINE NEGATIVE (NEGATIVE); GLUCOSE, URINE (UA) NEGATIVE (NEGATIVE); KETONES,URINE 1+ (NEGATIVE); LEUKOCYTE ESTERASE ,URINE 1+ (NEGATIVE); NITRITE,URINE POSITIVE (NEGATIVE); PH,URINE 6 (4.5-8.0); PROTEIN,URINE 3+ (NEGATIVE); UROBILINOGEN,URINE NORMAL MG/DL (0.0-1.0)
[2018-11-28 11:20] LABS: COLOR,URINE YELLOW
[2018-11-28 11:46] VITALS: BP 134/92
--- NOTE | 2018-11-28 12:19 | NUR ---
RD ASSESSMENT & RECOMMENDATIONS SEE CARE ACTIVITY FOR COMPLETE ASSESSMENT DAILY ESTIMATED NEEDS: Needs based on HIV, CA 69kg 25-35 kcals/kg 7421-6038 total kcals 1.25-1.5 g protein/kg 86-103 g total protein 25-30 mL/kg 0420-5921 total fluid mLs NUTRITION DIAGNOSIS: * Increased kcal/pro needs R/T catabolic dx as evidenced by HIV+, rectal CA w/ episodes of diarrhea. CURRENT DIET:REGULAR PO DIET RECOMMENDATIONS: REGULAR, lactose free/Low fiber diet ADDITIONAL RECOMMENDATIONS: * Standing wt as able for accurate CBW * Ensure CLEAR TID w/ meals * Check lytes daily, replete as needed * Add probiotics- diarrhea * Monitor PO tolerance and PO acceptance- c/o N/V/D at this time
--- NOTE | 2018-11-28 13:05 | Pulmonology Progress Note ---
Assessment/Plan Problems: (1) Sepsis (2) ATN (acute tubular necrosis) (3) Intractable abdominal pain (4) Diarrhea (5) History of rectal cancer (6) C. difficile colitis (7) Severe protein-calorie malnutrition (8) HIV (human immunodeficiency virus infection) Assessment/Plan doesn't wants to go home until he can urinate without a ledesma doing better indium scan in process CD4 count noted, it is 17 improving add Hydrin Urology called Subjective ROS Limited/Unobtainable: No Constitutional: Reports: no symptoms HEENT: Repors: no symptoms Respiratory: Reports: no symptoms Allergies: Coded Allergies: CODEINE (Unverified Allergy, Unknown, 11/28/17) EMTRICITABINE (Verified Allergy, Unknown, anxiousness, 08/31/18) SULFAMETHOXAZOLE (Unverified Allergy, Unknown, 10/27/17) TENOFOVIR (Verified Allergy, Unknown, anxiousness, 08/31/18) TRIMETHOPRIM (Unverified Allergy, Unknown, 10/27/17) Objective Last 24 Hour Vital Signs Date Time Temp Pulse Resp B/P (MAP) Pulse Ox O2 Delivery O2 Flow Rate FiO2 11/28/18 11:46 98.0 100 16 134/92 (106) 95 11/28/18 09:28 96 134/83 11/28/18 09:27 96 134/83 11/28/18 09:26 96 134/83 11/28/18 09:00 Room Air 11/28/18 08:00 98.1 96 16 134/83 (100) 96 11/28/18 04:00 98.3 99 18 113/77 (89) 94 11/28/18 00:00 98.6 94 20 122/83 (96) 94 11/27/18 21:03 101 117/70 11/27/18 21:00 Room Air 11/27/18 20:00 98.9 101 18 117/70 (86) 95 11/27/18 16:00 98.6 91 20 136/81 (99) 97 Intake and Output 11/27/18 11/28/18 19:00 07:00 Intake Total 300 ml 350 ml Balance 300 ml 350 ml Intake Oral 300 ml 240 ml IV Total 110 ml # Voids 2 2 # Bowel Movements 1 5 Objective General Appearance: cachetic HEENT: normocephalic, atraumatic Respiratory/Chest: chest wall non-tender, lungs clear Cardiovascular: normal peripheral pulses, normal rate Abdomen: normal bowel sounds, no organomegaly Extremities: no cyanosis Skin: no lesions Laboratory Tests 11/28/18 05:20: White Blood Count 10.9H, Red Blood Count 4.15L, Hemoglobin 13.3L, Hematocrit 38.4L, Mean Corpuscular Volume 93, Mean Corpuscular Hemoglobin 32.0H, Mean Corpuscular Hemoglobin Concent 34.6, Red Cell Distribution Width 12.3, Platelet Count 227, Mean Platelet Volume 8.1, Neutrophils (%) (Auto) 64.2, Lymphocytes (% ) (Auto) 26.4, Monocytes (%) (Auto) 7.6, Eosinophils (%) (Auto) 1.0, Basophils ( %) (Auto) 0.8, Sodium Level 137, Potassium Level 3.7, Chloride Level 105, Carbon Dioxide Level 22, Anion Gap 10, Blood Urea Nitrogen 23H, Creatinine 1.1, Estimat Glomerular Filtration Rate > 60, Glucose Level 114H, Calcium Level 8.7 11/28/18 09:50: Urine Color Yellow, Urine Appearance Clear, Urine pH 6, Urine Specific [place] 1.020, Urine Protein 3+H, Urine Glucose (UA) Negative, Urine Ketones 1+H, Urine Blood 2+H, Urine Nitrite PositiveH, Urine Bilirubin Negative, Urine Urobilinogen Normal, Urine Leukocyte Esterase 1+H, Urine RBC 2-4H, Urine WBC 2-4 , Urine Squamous Epithelial Cells Few, Urine Bacteria Few, Urine Mucus FewH Current Medications Medications (Trade) Dose Ordered Sig/Roman Route PRN Reason Start Time Stop Time Status Last Admin Dose Admin Acetaminophen (Tylenol) 650 mg Q4H PRN ORAL fever 11/24/18 07:00 12/17/18 22:59 11/25/18 22:28 Baclofen (Lioresal) 10 mg THREE TIMES A DAY ORAL 11/24/18 09:00 12/18/18 08:59 11/28/18 12:15 Cefepime HCl 2 gm/ Dextrose 110 ml @ 220 mls/hr Q12HR@0300,1500 IV 11/24/18 15:00 11/29/18 14:59 11/28/18 03:57 Dextrose (Dextrose 50%) 25 ml Q30M PRN IV Hypoglycemia 11/24/18 07:00 12/24/18 06:59 Dextrose (Dextrose 50%) 50 ml Q30M PRN IV Hypoglycemia 11/24/18 07:15 12/24/18 07:14 Diltiazem HCl (Cardizem CD) 120 mg DAILY ORAL 11/24/18 09:00 12/23/18 08:59 11/28/18 09:28 Diltiazem HCl (Cardizem CD) 180 mg DAILY ORAL 11/24/18 09:00 12/23/18 08:59 11/28/18 09:26 Heparin Sodium (Porcine) (Heparin 5000 units/ml) 5,000 units EVERY 12 HOURS SUBQ 11/24/18 09:00 12/18/18 08:59 11/28/18 09:00 Levothyroxine Sodium (Synthroid) 25 mcg DAILY@0630 ORAL 11/25/18 06:30 12/18/18 06:29 11/28/18 06:29 Loperamide HCl (Imodium) 4 mg Q6H PRN ORAL Diarrhea 11/24/18 12:30 12/20/18 12:29 11/28/18 10:13 Metoprolol Tartrate (Lopressor) 25 mg Q12HR ORAL 11/25/18 04:15 12/25/18 04:14 11/28/18 09:27 Metronidazole (Flagyl) 500 mg Q8HR ORAL 11/24/18 14:00 11/29/18 13:59 11/28/18 06:29 Mirtazapine (Remeron) 15 mg BEDTIME ORAL 11/24/18 21:00 12/18/18 20:59 11/27/18 21:03 Morphine Sulfate (Morphine Sulfate) 2 mg Q4H PRN IVP Moderate Pain (Pain Scale 4-6) 11/25/18 04:15 12/02/18 04:14 11/26/18 05:05 Ondansetron HCl (Zofran) 4 mg Q6H PRN IVP Nausea & Vomiting 11/24/18 07:00 12/17/18 06:59 11/27/18 18:10 Oxycodone/ Acetaminophen (Percocet 10/325) 1 tab Q4H PRN ORAL Severe Breakthru Pain (>7) 11/25/18 04:15 12/02/18 04:14 11/26/18 16:02 Paroxetine HCl (Paxil) 40 mg DAILY ORAL 11/24/18 09:00 12/18/18 08:59 11/27/18 09:34 Patient Own Medication (Patient's Own Med) 1 ea Q12H ORAL 11/24/18 18:00 12/24/18 17:59 11/27/18 05:41 Patient Own Medication (Patient's Own Med) 1 ea QHS ORAL 11/25/18 21:00 12/25/18 20:59 11/26/18 21:23 Patient Own Medication (Patient's Own Med) 1 ea QHS ORAL 11/25/18 21:00 12/25/18 20:59 11/26/18 21:23 Phosphorus (Phospha 250 Neutral) 500 mg THREE TIMES A DAY ORAL 11/24/18 09:00 12/22/18 17:59 11/28/18 09:24 Potassium Chloride (K-Dur) 40 meq DAILY ORAL 11/24/18 12:45 12/24/18 12:44 11/28/18 09:26 Tamsulosin HCl (Flomax) 0.4 mg BID ORAL 11/24/18 09:00 12/18/18 20:59 11/28/18 09:25 Temazepam (Restoril) 15 mg HSPRN PRN ORAL Insomnia 11/24/18 07:00 12/01/18 06:59 Oliverio Rm MD November 28, 2018 13:05
--- NOTE | 2018-11-28 13:40 | Infectious Diseases Prog Note ---
Assessment/Plan Assessment/Plan Assessment: Sepsis, unclear source- ?intraabdominal source- r/o bacteremia- ?kidney stone- US shows resolution of hydronephrosis -WBC scan neg -Renal US: Interval resolution of right hydronephrosis compared to CT from . 6 mm calcification posterior and lateral to the bladder right of midline. This is likely a phlebolith given presence of a right ureteral jet and absence of hydronephrosis. Multiple cysts within the left kidney -CT abd/p w/: Mild right hydroureteronephrosis. An obstructing stone is not definitely seen.However there is a tiny punctate calcification about 1 mm probably within the right distal ureter.Mild to moderate stool. Cysts within the left kidney. Small umbilical hernia containing fat -u/a neg -Bcx NTD -CXR No acute disease -amylase, lipase normal -Echo no vegetations seen Fever; improving ?source- ?rectal CA, r/o atypical infections, CD4 is over 300- less likelihood for opportunistic infections Mild leukocytosis, SP Diarrhea -stool cx usual enteric thomas -Cdiff neg x of Cdiff 09/2018- no diarrhea currently - failed oral vancomycin; sp tx w/ Fidaxomicin --09/06 Cdiff toxin a/b +; repeat Cdiff neg x2 -09/06 SP Colonoscopy: proctitis -stool cx: normal thomas -Giardia ag, cryptosporidium neg Hx of UTI 08/2018 -u/a wbc 10-15, shirley neg, leuk +3; ucx >100K PROTEUS MIRABILIS ( I Levo; R Amp, bactrim, Cipro, Nitro; S Ceftriaxone) HIV/AIDS- on ARV -11/19 CD4 392 (17.4%) -09/2018 182 (10.1%), VL UD -11/2017 CD4 323 HARVINDER, improving ?Recent dx of Rectal CA at [facility]-obtain records hx of rectal CA CVA 2004 HTN Plan: -Continue Cefepime # 11 (abx d #06/16) and add Flagyl #/ for anaerobic coverage pending cultures -11/22 SP IV Vancomycin #6 -11/17 SP Zosyn x1 -09/23 SP Fidaxomicin #10 -09/13/18 SP PO Vancomycin #8 -If fevers continue will need YUDITH and bone marrow biopsy as part of work up for Fever of unknown origin -f/u cx -Monitor CBC/CMP, temperatures -aspiration precautions -Cont ARV: Genvoya, Prezista, Intelence -f/u Brucella, Bartonella, Q fever, Rickettsia serologies -Obtain records at [facility] of recent rectal biopsy Subjective Allergies: Coded Allergies: CODEINE (Unverified Allergy, Unknown, 11/28/17) EMTRICITABINE (Verified Allergy, Unknown, anxiousness, 08/31/18) SULFAMETHOXAZOLE (Unverified Allergy, Unknown, 10/27/17) TENOFOVIR (Verified Allergy, Unknown, anxiousness, 08/31/18) TRIMETHOPRIM (Unverified Allergy, Unknown, 10/27/17) Subjective afebrile in >48hrs Bcx neg refusing some dosages of his HIV meds Objective Vital Signs Last 24 Hour Vital Signs Date Time Temp Pulse Resp B/P (MAP) Pulse Ox O2 Delivery O2 Flow Rate FiO2 11/28/18 11:46 98.0 100 16 134/92 (106) 95 11/28/18 09:28 96 134/83 11/28/18 09:27 96 134/83 11/28/18 09:26 96 134/83 11/28/18 09:00 Room Air 11/28/18 08:00 98.1 96 16 134/83 (100) 96 11/28/18 04:00 98.3 99 18 113/77 (89) 94 11/28/18 00:00 98.6 94 20 122/83 (96) 94 11/27/18 21:03 101 117/70 11/27/18 21:00 Room Air 11/27/18 20:00 98.9 101 18 117/70 (86) 95 11/27/18 16:00 98.6 91 20 136/81 (99) 97 Height (Feet): 5 Height (Inches): 5.00 Weight (Pounds): 153 Objective Abx: IV Vancomycin 11/17- Zosyn x1 11/17 Cefepime 11/18- Assessment: Sepsis- ?intraabdominal source- r/o bacteremia, PNA- ?kidney stone -CT abd/p w/: Mild right hydroureteronephrosis. An obstructing stone is not definitely seen.However there is a tiny punctate calcification about 1 mm probably within the right distal ureter.Mild to moderate stool. Cysts within the left kidney. Small umbilical hernia containing fat -u/a neg -Bcx p -CXR p Fever No leukocytosis HARVINDER, improving ?Recent dx of Rectal CA at [facility]-obtain records hx of Cdiff 09/2018 - failed oral vancomycin; sp tx w/ Fidaxomicin --09/06 Cdiff toxin a/b +; repeat Cdiff neg x2 -09/06 SP Colonoscopy: proctitis -stool cx: normal thomas -Giardia ag, cryptosporidium neg Hx of UTI 08/2018 -u/a wbc 10-15, shirley neg, leuk +3; ucx >100K PROTEUS MIRABILIS ( I Levo; R Amp, bactrim, Cipro, Nitro; S Ceftriaxone) HIV/AIDS- on ARV -09/2018 182 (10.1%), VL UD -11/2017 CD4 323 hx of rectal CA CVA 2004 HTN Plan: -Continue empiric IV Vancomycin #2, Cefepime #1 (abx d #2) and add Flagyl for anaerobic coverage pending cultures -09/23 SP Fidaxomicin #10 -09/13/18 SP PO Vancomycin #8 -f/u cx -Monitor CBC/CMP, temperatures -aspiration precautions -continue ARV- will clarify regimen w/ Dr Hannah Trinh (His HIV provider) [phone]- prior to resuming ARV as there is confusion as of what medicines patient is currently taking -CD4 am Thank you for this consultation. Will continue to follow along with you. Discussed with RN. Laboratory Tests Test 11/28/18 05:20 11/28/18 09:50 White Blood Count 10.9 K/UL (4.8-10.8) H Red Blood Count 4.15 M/UL (4.70-6.10) L Hemoglobin 13.3 G/DL (14.2-18.0) L Hematocrit 38.4 % (42.0-52.0) L Mean Corpuscular Volume 93 FL (80-99) Mean Corpuscular Hemoglobin 32.0 PG (27.0-31.0) H Mean Corpuscular Hemoglobin Concent 34.6 G/DL (32.0-36.0) Red Cell Distribution Width 12.3 % (11.6-14.8) Platelet Count 227 K/UL (150-450) Mean Platelet Volume 8.1 FL (6.5-10.1) Neutrophils (%) (Auto) 64.2 % (45.0-75.0) Lymphocytes (%) (Auto) 26.4 % (20.0-45.0) Monocytes (%) (Auto) 7.6 % (1.0-10.0) Eosinophils (%) (Auto) 1.0 % (0.0-3.0) Basophils (%) (Auto) 0.8 % (0.0-2.0) Sodium Level 137 MMOL/L (136-145) Potassium Level 3.7 MMOL/L (3.5-5.1) Chloride Level 105 MMOL/L (98-107) Carbon Dioxide Level 22 MMOL/L (21-32) Anion Gap 10 mmol/L (5-15) Blood Urea Nitrogen 23 mg/dL (7-18) H Creatinine 1.1 MG/DL (0.55-1.30) Estimat Glomerular Filtration Rate > 60 mL/min (>60) Glucose Level 114 MG/DL (74-106) H Calcium Level 8.7 MG/DL (8.5-10.1) Urine Color Yellow Urine Appearance Clear Urine pH 6 (4.5-8.0) Urine Specific [place] 1.020 (1.005-1.035) Urine Protein 3+ (NEGATIVE) H Urine Glucose (UA) Negative (NEGATIVE) Urine Ketones 1+ (NEGATIVE) H Urine Blood 2+ (NEGATIVE) H Urine Nitrite Positive (NEGATIVE) H Urine Bilirubin Negative (NEGATIVE) Urine Urobilinogen Normal MG/DL (0.0-1.0) Urine Leukocyte Esterase 1+ (NEGATIVE) H Urine RBC 2-4 /HPF (0 - 0) H Urine WBC 2-4 /HPF (0 - 0) Urine Squamous Epithelial Cells Few /LPF (NONE/OCC) Urine Bacteria Few /HPF (NONE) Urine Mucus Few /LPF (NONE/OCC) H Current Medications Medications (Trade) Dose Ordered Sig/Roman Route PRN Reason Start Time Stop Time Status Last Admin Dose Admin Acetaminophen (Tylenol) 650 mg Q4H PRN ORAL fever 11/24/18 07:00 12/17/18 22:59 11/25/18 22:28 Baclofen (Lioresal) 10 mg THREE TIMES A DAY ORAL 11/24/18 09:00 12/18/18 08:59 11/28/18 12:15 Cefepime HCl 2 gm/ Dextrose 110 ml @ 220 mls/hr Q12HR@0300,1500 IV 11/24/18 15:00 11/29/18 14:59 11/28/18 03:57 Dextrose (Dextrose 50%) 25 ml Q30M PRN IV Hypoglycemia 11/24/18 07:00 12/24/18 06:59 Dextrose (Dextrose 50%) 50 ml Q30M PRN IV Hypoglycemia 11/24/18 07:15 12/24/18 07:14 Diltiazem HCl (Cardizem CD) 120 mg DAILY ORAL 11/24/18 09:00 12/23/18 08:59 11/28/18 09:28 Diltiazem HCl (Cardizem CD) 180 mg DAILY ORAL 11/24/18 09:00 12/23/18 08:59 11/28/18 09:26 Heparin Sodium (Porcine) (Heparin 5000 units/ml) 5,000 units EVERY 12 HOURS SUBQ 11/24/18 09:00 12/18/18 08:59 11/28/18 09:00 Levothyroxine Sodium (Synthroid) 25 mcg DAILY@0630 ORAL 11/25/18 06:30 12/18/18 06:29 11/28/18 06:29 Loperamide HCl (Imodium) 4 mg Q6H PRN ORAL Diarrhea 11/24/18 12:30 12/20/18 12:29 11/28/18 10:13 Metoprolol Tartrate (Lopressor) 25 mg Q12HR ORAL 11/25/18 04:15 12/25/18 04:14 11/28/18 09:27 Metronidazole (Flagyl) 500 mg Q8HR ORAL 11/24/18 14:00 11/29/18 13:59 11/28/18 13:32 Mirtazapine (Remeron) 15 mg BEDTIME ORAL 11/24/18 21:00 12/18/18 20:59 11/27/18 21:03 Morphine Sulfate (Morphine Sulfate) 2 mg Q4H PRN IVP Moderate Pain (Pain Scale 4-6) 11/25/18 04:15 12/02/18 04:14 11/26/18 05:05 Ondansetron HCl (Zofran) 4 mg Q6H PRN IVP Nausea & Vomiting 11/24/18 07:00 12/17/18 06:59 11/27/18 18:10 Oxycodone/ Acetaminophen (Percocet 10) 1 tab Q4H PRN ORAL Severe Breakthru Pain (>7) 11/25/18 04:15 12/02/18 04:14 11/26/18 16:02 Paroxetine HCl (Paxil) 40 mg DAILY ORAL 11/24/18 09:00 12/18/18 08:59 11/27/18 09:34 Patient Own Medication (Patient's Own Med) 1 ea Q12H ORAL 11/24/18 18:00 12/24/18 17:59 11/27/18 05:41 Patient Own Medication (Patient's Own Med) 1 ea QHS ORAL 11/25/18 21:00 12/25/18 20:59 11/26/18 21:23 Patient Own Medication (Patient's Own Med) 1 ea QHS ORAL 11/25/18 21:00 12/25/18 20:59 11/26/18 21:23 Phosphorus (Phospha 250 Neutral) 500 mg THREE TIMES A DAY ORAL 11/24/18 09:00 12/22/18 17:59 11/28/18 09:24 Potassium Chloride (K-Dur) 40 meq DAILY ORAL 11/24/18 12:45 12/24/18 12:44 11/28/18 09:26 Tamsulosin HCl (Flomax) 0.4 mg BID ORAL 11/24/18 09:00 12/18/18 20:59 11/28/18 09:25 Temazepam (Restoril) 15 mg HSPRN PRN ORAL Insomnia 11/24/18 07:00 12/01/18 06:59 Terazosin HCl (Hytrin) 2 mg BEDTIME ORAL 11/28/18 21:00 12/28/18 20:59 Miranda Cordero M.D. November 28, 2018 13:40
--- NOTE | 2018-11-28 13:53 | Nephrology Progress Note ---
Assessment/Plan Problem List: (1) Urinary retention Assessment: had 600 cc retention today- straught cathed (2) Sepsis (3) Fecal impaction (4) Hypokalemia (5) Hypothyroidism (6) HIV (human immunodeficiency virus infection) (7) Anemia Assessment Sepsis Possible PNA Acute kidney injury, possibly due to mild hydroureteronephrosis seen on CT scan -resolved Rectal CA, recently diagnosed HIV/AIDS Fecal retention History of CVA Hypertension Hypothyroidism Depression Hypokalemia Anemia Plan Plan: monitor for voiding- ledesma to leg bag if not void in 6-8 hours K , Phos supplement as needed stool softner Reglan as needed Gastric support Monitor lytes DC IV fluids per cardiology per orders Subjective ROS Limited/Unobtainable: No Constitutional: Reports: malaise Objective Objective Last 24 Hour Vital Signs Date Time Temp Pulse Resp B/P (MAP) Pulse Ox O2 Delivery O2 Flow Rate FiO2 11/28/18 11:46 98.0 100 16 134/92 (106) 95 11/28/18 09:28 96 134/83 11/28/18 09:27 96 134/83 11/28/18 09:26 96 134/83 11/28/18 09:00 Room Air 11/28/18 08:00 98.1 96 16 134/83 (100) 96 11/28/18 04:00 98.3 99 18 113/77 (89) 94 11/28/18 00:00 98.6 94 20 122/83 (96) 94 11/27/18 21:03 101 117/70 11/27/18 21:00 Room Air 11/27/18 20:00 98.9 101 18 117/70 (86) 95 11/27/18 16:00 98.6 91 20 136/81 (99) 97 Intake and Output 11/27/18 11/28/18 19:00 07:00 Intake Total 300 ml 350 ml Balance 300 ml 350 ml Intake Oral 300 ml 240 ml IV Total 110 ml # Voids 2 2 # Bowel Movements 1 5 Laboratory Tests 11/28/18 05:20: White Blood Count 10.9H, Red Blood Count 4.15L, Hemoglobin 13.3L, Hematocrit 38.4L, Mean Corpuscular Volume 93, Mean Corpuscular Hemoglobin 32.0H, Mean Corpuscular Hemoglobin Concent 34.6, Red Cell Distribution Width 12.3, Platelet Count 227, Mean Platelet Volume 8.1, Neutrophils (%) (Auto) 64.2, Lymphocytes (% ) (Auto) 26.4, Monocytes (%) (Auto) 7.6, Eosinophils (%) (Auto) 1.0, Basophils ( %) (Auto) 0.8, Sodium Level 137, Potassium Level 3.7, Chloride Level 105, Carbon Dioxide Level 22, Anion Gap 10, Blood Urea Nitrogen 23H, Creatinine 1.1, Estimat Glomerular Filtration Rate > 60, Glucose Level 114H, Calcium Level 8.7 11/28/18 09:50: Urine Color Yellow, Urine Appearance Clear, Urine pH 6, Urine Specific [place] 1.020, Urine Protein 3+H, Urine Glucose (UA) Negative, Urine Ketones 1+H, Urine Blood 2+H, Urine Nitrite PositiveH, Urine Bilirubin Negative, Urine Urobilinogen Normal, Urine Leukocyte Esterase 1+H, Urine RBC 2-4H, Urine WBC 2-4 , Urine Squamous Epithelial Cells Few, Urine Bacteria Few, Urine Mucus FewH Height (Feet): 5 Height (Inches): 5.00 Weight (Pounds): 153 General Appearance: no apparent distress Cardiovascular: normal rate Respiratory/Chest: decreased breath sounds Abdomen: distended Objective no change Hayden Andres MD November 28, 2018 13:53
--- NOTE | 2018-11-28 14:45 | NUR ---
NURSE NOTES: Dr ALCARAZ visited pt, she is aware about urine result, no new order to RN, will continue to monitor.
--- NOTE | 2018-11-28 15:37 | NUR ---
*-* INSURANCE *-* UPDATED CLINICALS HAVE BEEN FAXED TO: [facility] NCM: LIZETH P: N/A F:[phone] FAX CLINICALS
--- NOTE | 2018-11-28 15:58 | NUR ---
NURSE NOTES: Dr HDEZ visited pt at 1100 and ordered to [place] if no urine after 6 hrs, but pt refused, Dr HDEZ and notified, order noted and carried out. will continue to monitor.
[2018-11-28 16:00] VITALS: BP 143/86
--- NOTE | 2018-11-28 16:06 | NUR ---
CASE MANAGEMENT:REVIEW 11/28/18 SI: SEPSIS. C-DIFF COLITIS. HIV 98.0 100 16 134/92 95% ON RA WBC+10.9 BUN+23 IS: IV CEFEPIME Q12 FLAGYL PO Q8HRS K-DUR PO QD LOPRESSOR PO Q12 BACLOFEN PO TID CARDIZEM PO QD HEPARIN SQ Q12 : MED.SURG STATUS 4 EAST DCP: FROM [facility] PLAN: BLADDER SCAN Q6HRS STRAIGHT CATH IF URINE >300
--- NOTE | 2018-11-28 18:40 | Internal Med Progress Note ---
Subjective Date of Service: November 28, 2018 Physician Name Trey Whitaker Attending Physician Carlos Barragan MD Current Medications Medications (Trade) Dose Ordered Sig/Roman Route PRN Reason Start Time Stop Time Status Last Admin Dose Admin Acetaminophen (Tylenol) 650 mg Q4H PRN ORAL fever 11/24/18 07:00 12/17/18 22:59 11/25/18 22:28 Baclofen (Lioresal) 10 mg THREE TIMES A DAY ORAL 11/24/18 09:00 12/18/18 08:59 11/28/18 17:10 Cefepime HCl 2 gm/ Dextrose 110 ml @ 220 mls/hr Q12HR@0300,1500 IV 11/24/18 15:00 12/01/18 14:59 11/28/18 14:02 Dextrose (Dextrose 50%) 25 ml Q30M PRN IV Hypoglycemia 11/24/18 07:00 12/24/18 06:59 Dextrose (Dextrose 50%) 50 ml Q30M PRN IV Hypoglycemia 11/24/18 07:15 12/24/18 07:14 Diltiazem HCl (Cardizem CD) 120 mg DAILY ORAL 11/24/18 09:00 12/23/18 08:59 11/28/18 09:28 Diltiazem HCl (Cardizem CD) 180 mg DAILY ORAL 11/24/18 09:00 12/23/18 08:59 11/28/18 09:26 Heparin Sodium (Porcine) (Heparin 5000 units/ml) 5,000 units EVERY 12 HOURS SUBQ 11/24/18 09:00 12/18/18 08:59 11/28/18 09:00 Levothyroxine Sodium (Synthroid) 25 mcg DAILY@0630 ORAL 11/25/18 06:30 12/18/18 06:29 11/28/18 06:29 Loperamide HCl (Imodium) 4 mg Q6H PRN ORAL Diarrhea 11/24/18 12:30 12/20/18 12:29 11/28/18 10:13 Metoprolol Tartrate (Lopressor) 25 mg Q12HR ORAL 11/25/18 04:15 12/25/18 04:14 11/28/18 09:27 Metronidazole (Flagyl) 500 mg Q8HR ORAL 11/24/18 14:00 12/01/18 13:59 11/28/18 13:32 Mirtazapine (Remeron) 15 mg BEDTIME ORAL 11/24/18 21:00 12/18/18 20:59 11/27/18 21:03 Morphine Sulfate (Morphine Sulfate) 2 mg Q4H PRN IVP Moderate Pain (Pain Scale 4-6) 11/25/18 04:15 12/02/18 04:14 11/26/18 05:05 Ondansetron HCl (Zofran) 4 mg Q6H PRN IVP Nausea & Vomiting 11/24/18 07:00 12/17/18 06:59 11/27/18 18:10 Oxycodone/ Acetaminophen (Percocet 10/325) 1 tab Q4H PRN ORAL Severe Breakthru Pain (>7) 11/25/18 04:15 12/02/18 04:14 11/26/18 16:02 Paroxetine HCl (Paxil) 40 mg DAILY ORAL 11/24/18 09:00 12/18/18 08:59 11/27/18 09:34 Patient Own Medication (Patient's Own Med) 1 ea Q12H ORAL 11/28/18 18:00 12/28/18 17:59 11/28/18 17:38 Patient Own Medication (Patient's Own Med) 1 ea QHS ORAL 11/28/18 21:00 12/28/18 20:59 Patient Own Medication (Patient's Own Med) 1 ea QHS ORAL 11/28/18 21:00 12/28/18 20:59 Phosphorus (Phospha 250 Neutral) 500 mg THREE TIMES A DAY ORAL 11/24/18 09:00 12/22/18 17:59 11/28/18 09:24 Potassium Chloride (K-Dur) 40 meq DAILY ORAL 11/24/18 12:45 12/24/18 12:44 11/28/18 09:26 Tamsulosin HCl (Flomax) 0.4 mg BID ORAL 11/24/18 09:00 12/18/18 20:59 11/28/18 17:10 Temazepam (Restoril) 15 mg HSPRN PRN ORAL Insomnia 11/24/18 07:00 12/01/18 06:59 Terazosin HCl (Hytrin) 2 mg BEDTIME ORAL 11/28/18 21:00 12/28/18 20:59 Allergies: Coded Allergies: CODEINE (Unverified Allergy, Unknown, 11/28/17) EMTRICITABINE (Verified Allergy, Unknown, anxiousness, 08/31/18) SULFAMETHOXAZOLE (Unverified Allergy, Unknown, 10/27/17) TENOFOVIR (Verified Allergy, Unknown, anxiousness, 08/31/18) TRIMETHOPRIM (Unverified Allergy, Unknown, 10/27/17) ROS Limited/Unobtainable: No Constitutional: Reports: no symptoms HEENT: Reports: no symptoms Cardiovascular: Reports: no symptoms Respiratory: Reports: no symptoms Gastrointestinal/Abdominal: Reports: no symptoms Genitourinary: Reports: no symptoms 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: Reports: no symptoms Subjective 68 YO M admitted with constipation rectal bleeding. Cover for Int Med-Dr Barragan. Unable to void earlier-refused in and out cath Objective Last Vital Signs Date Time Temp Pulse Resp B/P (MAP) Pulse Ox O2 Delivery O2 Flow Rate FiO2 11/28/18 16:00 98.6 100 20 143/86 (105) 95 11/28/18 09:00 Room Air 11/24/18 08:05 21 Laboratory Tests Test 11/28/18 05:20 11/28/18 09:50 White Blood Count 10.9 K/UL (4.8-10.8) H Red Blood Count 4.15 M/UL (4.70-6.10) L Hemoglobin 13.3 G/DL (14.2-18.0) L Hematocrit 38.4 % (42.0-52.0) L Mean Corpuscular Volume 93 FL (80-99) Mean Corpuscular Hemoglobin 32.0 PG (27.0-31.0) H Mean Corpuscular Hemoglobin Concent 34.6 G/DL (32.0-36.0) Red Cell Distribution Width 12.3 % (11.6-14.8) Platelet Count 227 K/UL (150-450) Mean Platelet Volume 8.1 FL (6.5-10.1) Neutrophils (%) (Auto) 64.2 % (45.0-75.0) Lymphocytes (%) (Auto) 26.4 % (20.0-45.0) Monocytes (%) (Auto) 7.6 % (1.0-10.0) Eosinophils (%) (Auto) 1.0 % (0.0-3.0) Basophils (%) (Auto) 0.8 % (0.0-2.0) Sodium Level 137 MMOL/L (136-145) Potassium Level 3.7 MMOL/L (3.5-5.1) Chloride Level 105 MMOL/L (98-107) Carbon Dioxide Level 22 MMOL/L (21-32) Anion Gap 10 mmol/L (5-15) Blood Urea Nitrogen 23 mg/dL (7-18) H Creatinine 1.1 MG/DL (0.55-1.30) Estimat Glomerular Filtration Rate > 60 mL/min (>60) Glucose Level 114 MG/DL (74-106) H Calcium Level 8.7 MG/DL (8.5-10.1) Urine Color Yellow Urine Appearance Clear Urine pH 6 (4.5-8.0) Urine Specific [place] 1.020 (1.005-1.035) Urine Protein 3+ (NEGATIVE) H Urine Glucose (UA) Negative (NEGATIVE) Urine Ketones 1+ (NEGATIVE) H Urine Blood 2+ (NEGATIVE) H Urine Nitrite Positive (NEGATIVE) H Urine Bilirubin Negative (NEGATIVE) Urine Urobilinogen Normal MG/DL (0.0-1.0) Urine Leukocyte Esterase 1+ (NEGATIVE) H Urine RBC 2-4 /HPF (0 - 0) H Urine WBC 2-4 /HPF (0 - 0) Urine Squamous Epithelial Cells Few /LPF (NONE/OCC) Urine Bacteria Few /HPF (NONE) Urine Mucus Few /LPF (NONE/OCC) H Intake and Output 11/27/18 11/28/18 18:59 06:59 Intake Total 300 ml 350 ml Balance 300 ml 350 ml Intake Oral 300 ml 240 ml IV Total 110 ml # Voids 2 2 # Bowel Movements 1 5 Objective PHYSICAL EXAMINATION: GENERAL: The patient is a well-developed and well-nourished white male, in no apparent distress. HEENT: Eyes, pupils equal and responsive to light and accommodation. Extraocular movements are intact. NECK: Supple without lymphadenopathy. CHEST: Lungs are clear to auscultation bilaterally without wheezes or rales. CARDIOVASCULAR: Regular rhythm and rate. S1 and S2 are normal without murmurs, rubs, or gallops. ABDOMEN: Soft, nontender, and nondistended. Positive bowel sounds. No evidence of hepatosplenomegaly. Currently, no rebound or guarding noted. EXTREMITIES: Negative for clubbing, cyanosis, or edema. RECTAL/GENITAL: Refused. NEUROLOGIC: Cranial nerves II through XII are grossly intact without focal deficits. Motor strength is 5/5 bilaterally. Deep tendon reflexes are 2+ plantar. Assessment/Plan Assessment/Plan ASSESSMENT: This is a 68-year-old white male. 1. Left abdominal pain. 2. Constipation. 3. Rectal bleeding. 4. Left hydronephrosis. 5. Hypertension. 6. HIV. 7. Hypothyroidism. 8. History of rectal cancer. 9. Cerebrovascular disease. 10. Major depression. 11. Anxiety. 12. Benign prostatic hypertrophy. 13. Paroxysmal supraventricular tachycardia 14. Urine retention TREATMENT: 1. Constipation/abdominal pain/rectal hemorrhage. Gastroenterology consultation with Dr. Dejan Germain. S/P colonoscopy 09/18. C.Diff = neg 2. Right hydronephrosis. There is no definite stone seen. The patient may have passed a renal calculus. 3. Hypertension. Continue metoprolol and amlodipine as above. 4. HIV. Continue HAART per Infectious Disease. 5. Hypothyroidism. Continue Levoxyl as above. 6. History of rectal cancer. The patient is status post biopsy at [facility]. 7. Cerebrovascular disease. 8. Major depression. Continue Paxil as above. 9. Anxiety. 10. Benign prostatic hypertrophy. Continue Flomax and oxybutynin as above. 11. Await cardiology consult 12. Abx=flagyl and cefepime per ID 13. Discharge planning 14. Refused Trey Land MD November 28, 2018 18:40
--- NOTE | 2018-11-28 19:30 | NUR ---
HAND-OFF: Report given to RN ADEEL. Endorsed to F/U for bladder scan and straight cath.
[2018-11-28 20:00] VITALS: BP 113/73
[2018-11-28] MEDS: GENVOYA ORAL SCH (21:00)
[2018-11-28] MEDS: Morphine Sulfate 2mg/ml Inj(IV/IM USE ONLY) IVP PRN (21:27)
[2018-11-28] MEDS: Terazosin 1mg cap ORAL SCH (23:46)
[2018-11-29] VITALS: BP 123/72
--- NOTE | 2018-11-29 01:00 | NUR ---
NURSE NOTES: Pt refused his HIV Meds despite education and encouragement.
[2018-11-29] MEDS: Cefepime HCl 2 GM in D5W 110 ML IV SCH ×2 (01:59→14:34)
--- NOTE | 2018-11-29 02:10 | NUR ---
NURSE NOTES: Bladder scan reveals 445ml urine; straight cath produced 500ml urine. Pt tolerated well.
[2018-11-29 04:24] VITALS: BP 101/72
[2018-11-29 06:45] LABS: BASOPHILS % (AUTO) 0.5 % (0.0-2.0); EOSINOPHILS % (AUTO) 0.8 % (0.0-3.0); HEMATOCRIT 37.9 % (42.0-52.0); LYMPHOCYTES % (AUTO) 22.1 % (20.0-45.0); MEAN CORPUSCULAR VOLUME 93 FL (80-99); MONOCYTES % (AUTO) 7.1 % (1.0-10.0); NEUTROPHILS % (AUTO) 69.5 % (45.0-75.0); PLATELET COUNT 197 K/UL (150-450); RED BLOOD COUNT 4.08 M/UL (4.70-6.10); RED CELL DISTRIBUTION WIDTH 12.4 % (11.6-14.8); WHITE BLOOD COUNT 9.8 K/UL (4.8-10.8)
[2018-11-29] MEDS: Levothyroxine 25mcg tab ORAL SCH (06:53)
[2018-11-29] MEDS: metroNIDAZOLE 500mg tab ORAL SCH ×3 (06:53→21:14)
[2018-11-29 07:02] LABS: ANION GAP 9 mmol/L (5-15); BLOOD UREA NITROGEN 24 mg/dL (7-18); CALCIUM 8.9 MG/DL (8.5-10.1); CARBON DIOXIDE 22 MMOL/L (21-32); CHLORIDE 105 MMOL/L (98-107); CREATININE 1.1 MG/DL (0.55-1.30); PHOSPHORUS 2.3 MG/DL (2.5-4.9); POTASSIUM 4.1 MMOL/L (3.5-5.1); SODIUM 136 MMOL/L (136-145)
--- NOTE | 2018-11-29 07:05 | NUR ---
HAND-OFF: Report given to CHARLEY Marcelo. Informed to perform bladder scan and straight cath if necessary.
[2018-11-29 08:00] VITALS: BP 118/76
[2018-11-29] MEDS: Metoprolol 25mg tab ORAL SCH ×2 (08:39→21:14)
[2018-11-29] MEDS: Tamsulosin 0.4mg cap ORAL SCH ×2 (08:39→17:17)
[2018-11-29] MEDS: Heparin 5000 units/ml inj SUBQ SCH ×2 (08:49→21:00)
[2018-11-29] MEDS: Phospha 250 Neutral tab ORAL SCH ×3 (08:58→17:16)
[2018-11-29] MEDS: PARoxetine 20mg tab ORAL SCH (09:00)
[2018-11-29] MEDS: dilTIAZem HCl CD 120mg cap ORAL SCH (09:00)
[2018-11-29] MEDS: dilTIAZem HCl CD 180mg cap ORAL SCH (09:00)
--- NOTE | 2018-11-29 10:10 | NUR ---
NURSE NOTES: DAVIE MACE visited pt and he ordered to D/C IV SODIUM PHOS. and pt6 complains when he has BM it is burning, DAVIE MACE is aware no new order to RN. will continue to monitor.
[2018-11-29] MEDS: Loperamide 2mg cap ORAL PRN (10:44)
--- NOTE | 2018-11-29 10:48 | GI Progress Note ---
Assessment/Plan Problems: (1) Severe protein-calorie malnutrition ICD Codes: E43 - Unspecified severe protein-calorie malnutrition SNOMED: 116500126 (2) History of rectal cancer ICD Codes: Z85.048 - Personal history of other malignant neoplasm of rectum, rectosigmoid junction, and anus SNOMED: 622761513 (3) Intractable abdominal pain ICD Codes: R10.9 - Unspecified abdominal pain SNOMED: 12446622, 028374350 Status: stable, unchanged Status Narrative Discussed with Dr. Germain Assessment/Plan Status post colonoscopy in September 2018 1. Focal proctitis suspicious for C. diff versus ulcerative colitis, status post biopsy. 2. Status post biopsy of the right and left colon to evaluate microscopic colitis. >> negative Rectal bleeding resolved Stable H&H C. difficile negative x2 Stool culture reviewed, gram-negative bacillus Advance diet as tolerated bowel regimen, hold stool softeners and laxatives increased Lomotil for persistent diarrhea obtain records from [facility] monitor H&H fu ID recs Electrolyte correction Follow labs PPI The patient was seen and examined at bedside and all new and available data was reviewed in the patients chart. I agree with the above findings, impression and plan. (Patient seen earlier today. Signature stamp does not reflect patient encounter time.). - Dejan Germain MD Subjective Subjective Rectal bleeding resolved Diarrhea improved with medication Objective Last 24 Hour Vital Signs Date Time Temp Pulse Resp B/P (MAP) Pulse Ox O2 Delivery O2 Flow Rate FiO2 11/29/18 09:00 96 118/76 11/29/18 09:00 96 118/76 11/29/18 09:00 Room Air 11/29/18 08:39 96 118/76 11/29/18 08:00 97.9 96 18 118/76 (90) 99 11/29/18 04:24 98.7 100 20 101/72 (82) 98 11/29/18 00:00 98.8 99 20 123/72 (89) 96 11/28/18 23:47 107 113/73 11/28/18 21:00 Room Air 11/28/18 20:00 98.1 107 22 113/73 (86) 96 11/28/18 16:00 98.6 100 20 143/86 (105) 95 11/28/18 11:46 98.0 100 16 134/92 (106) 95 Intake and Output 11/28/18 11/29/18 19:00 07:00 Intake Total 790 ml 110 ml Output Total 1200 ml 1545 ml Balance -410 ml -1435 ml Intake Oral 680 ml IV Total 110 ml 110 ml Output Urine Total 600 ml 1100 ml Post Void Residual 600 ml 445 ml Bladder Scan Volume Amount 550 > 300 ml 101-150 ml 101-150 ml # Bowel Movements 2 Laboratory Tests Test 11/29/18 06:05 White Blood Count 9.8 K/UL (4.8-10.8) Red Blood Count 4.08 M/UL (4.70-6.10) L Hemoglobin 13.0 G/DL (14.2-18.0) L Hematocrit 37.9 % (42.0-52.0) L Mean Corpuscular Volume 93 FL (80-99) Mean Corpuscular Hemoglobin 31.9 PG (27.0-31.0) H Mean Corpuscular Hemoglobin Concent 34.3 G/DL (32.0-36.0) Red Cell Distribution Width 12.4 % (11.6-14.8) Platelet Count 197 K/UL (150-450) Mean Platelet Volume 8.3 FL (6.5-10.1) Neutrophils (%) (Auto) 69.5 % (45.0-75.0) Lymphocytes (%) (Auto) 22.1 % (20.0-45.0) Monocytes (%) (Auto) 7.1 % (1.0-10.0) Eosinophils (%) (Auto) 0.8 % (0.0-3.0) Basophils (%) (Auto) 0.5 % (0.0-2.0) Sodium Level 136 MMOL/L (136-145) Potassium Level 4.1 MMOL/L (3.5-5.1) Chloride Level 105 MMOL/L (98-107) Carbon Dioxide Level 22 MMOL/L (21-32) Anion Gap 9 mmol/L (5-15) Blood Urea Nitrogen 24 mg/dL (7-18) H Creatinine 1.1 MG/DL (0.55-1.30) Estimat Glomerular Filtration Rate > 60 mL/min (>60) Glucose Level 111 MG/DL (74-106) H Calcium Level 8.9 MG/DL (8.5-10.1) Phosphorus Level 2.3 MG/DL (2.5-4.9) L Magnesium Level 2.1 MG/DL (1.8-2.4) Height (Feet): 5 Height (Inches): 5.00 Weight (Pounds): 145 General Appearance: WD/WN, no apparent distress, alert Cardiovascular: normal rate Respiratory/Chest: normal breath sounds, no respiratory distress Abdominal Exam: normal bowel sounds, non tender, soft, other - Colostomy Extremities: normal range of motion, non-tender Jasen Brink NP November 29, 2018 10:48
[2018-11-29] MEDS ORDERED: Sodium Phosphate 30 MM in NS 275 ML IVPB SCH (11:00)
--- NOTE | 2018-11-29 11:37 | Pulmonology Progress Note ---
Assessment/Plan Problems: (1) Sepsis (2) ATN (acute tubular necrosis) (3) Intractable abdominal pain (4) Diarrhea (5) History of rectal cancer (6) C. difficile colitis (7) Severe protein-calorie malnutrition (8) HIV (human immunodeficiency virus infection) Assessment/Plan no new complains on Cefepime 12/ doing better indium scan in process CD4 count noted, it is 17 improving add Hydrin Urology called, will see hopefully soon Subjective ROS Limited/Unobtainable: No Constitutional: Reports: no symptoms HEENT: Repors: no symptoms Respiratory: Reports: no symptoms Allergies: Coded Allergies: CODEINE (Unverified Allergy, Unknown, 11/28/17) EMTRICITABINE (Verified Allergy, Unknown, anxiousness, 08/31/18) SULFAMETHOXAZOLE (Unverified Allergy, Unknown, 10/27/17) TENOFOVIR (Verified Allergy, Unknown, anxiousness, 08/31/18) TRIMETHOPRIM (Unverified Allergy, Unknown, 10/27/17) Objective Last 24 Hour Vital Signs Date Time Temp Pulse Resp B/P (MAP) Pulse Ox O2 Delivery O2 Flow Rate FiO2 11/29/18 09:00 96 118/76 11/29/18 09:00 96 118/76 11/29/18 09:00 Room Air 11/29/18 08:39 96 118/76 11/29/18 08:00 97.9 96 18 118/76 (90) 99 11/29/18 04:24 98.7 100 20 101/72 (82) 98 11/29/18 00:00 98.8 99 20 123/72 (89) 96 11/28/18 23:47 107 113/73 11/28/18 21:00 Room Air 11/28/18 20:00 98.1 107 22 113/73 (86) 96 11/28/18 16:00 98.6 100 20 143/86 (105) 95 11/28/18 11:46 98.0 100 16 134/92 (106) 95 Intake and Output 11/28/18 11/29/18 18:59 06:59 Intake Total 790 ml 110 ml Output Total 1200 ml 1545 ml Balance -410 ml -1435 ml Intake Oral 680 ml IV Total 110 ml 110 ml Output Urine Total 600 ml 1100 ml Post Void Residual 600 ml 445 ml Bladder Scan Volume Amount 550 > 300 ml 101-150 ml 101-150 ml # Bowel Movements 2 Objective General Appearance: cachetic HEENT: normocephalic, atraumatic Respiratory/Chest: chest wall non-tender, lungs clear Cardiovascular: normal peripheral pulses, normal rate Abdomen: normal bowel sounds, no organomegaly Extremities: no cyanosis Skin: no lesions Microbiology Date/Time Source Procedure Growth Status 11/28/18 09:50 Urine,Clean Catch Urine Culture - Preliminary NO GROWTH Resulted Laboratory Tests 11/29/18 06:05: White Blood Count 9.8, Red Blood Count 4.08L, Hemoglobin 13.0L, Hematocrit 37.9L , Mean Corpuscular Volume 93, Mean Corpuscular Hemoglobin 31.9H, Mean Corpuscular Hemoglobin Concent 34.3, Red Cell Distribution Width 12.4, Platelet Count 197, Mean Platelet Volume 8.3, Neutrophils (%) (Auto) 69.5, Lymphocytes (% ) (Auto) 22.1, Monocytes (%) (Auto) 7.1, Eosinophils (%) (Auto) 0.8, Basophils ( %) (Auto) 0.5, Sodium Level 136, Potassium Level 4.1, Chloride Level 105, Carbon Dioxide Level 22, Anion Gap 9, Blood Urea Nitrogen 24H, Creatinine 1.1, Estimat Glomerular Filtration Rate > 60, Glucose Level 111H, Calcium Level 8.9, Phosphorus Level 2.3L, Magnesium Level 2.1 Current Medications Medications (Trade) Dose Ordered Sig/Roman Route PRN Reason Start Time Stop Time Status Last Admin Dose Admin Acetaminophen (Tylenol) 650 mg Q4H PRN ORAL fever and pain 11/28/18 20:00 12/28/18 19:59 Baclofen (Lioresal) 10 mg THREE TIMES A DAY ORAL 11/24/18 09:00 12/18/18 08:59 11/29/18 08:39 Cefepime HCl 2 gm/ Dextrose 110 ml @ 220 mls/hr Q12HR@0300,1500 IV 11/24/18 15:00 12/01/18 14:59 11/29/18 01:59 Dextrose (Dextrose 50%) 25 ml Q30M PRN IV Hypoglycemia 11/24/18 07:00 12/24/18 06:59 Dextrose (Dextrose 50%) 50 ml Q30M PRN IV Hypoglycemia 11/24/18 07:15 12/24/18 07:14 Diltiazem HCl (Cardizem CD) 120 mg DAILY ORAL 11/24/18 09:00 12/23/18 08:59 11/28/18 09:28 Diltiazem HCl (Cardizem CD) 180 mg DAILY ORAL 11/24/18 09:00 12/23/18 08:59 11/28/18 09:26 Heparin Sodium (Porcine) (Heparin 5000 units/ml) 5,000 units EVERY 12 HOURS SUBQ 11/24/18 09:00 12/18/18 08:59 11/29/18 08:49 Levothyroxine Sodium (Synthroid) 25 mcg DAILY@0630 ORAL 11/25/18 06:30 12/18/18 06:29 11/29/18 06:53 Loperamide HCl (Imodium) 4 mg Q6H PRN ORAL Diarrhea 11/24/18 12:30 12/20/18 12:29 11/29/18 10:44 Metoprolol Tartrate (Lopressor) 25 mg Q12HR ORAL 11/25/18 04:15 12/25/18 04:14 11/29/18 08:39 Metronidazole (Flagyl) 500 mg Q8HR ORAL 11/24/18 14:00 12/01/18 13:59 11/29/18 06:53 Mirtazapine (Remeron) 15 mg BEDTIME ORAL 11/24/18 21:00 12/18/18 20:59 11/28/18 23:47 Morphine Sulfate (Morphine Sulfate) 2 mg Q4H PRN IVP Moderate Pain (Pain Scale 4-6) 11/25/18 04:15 12/02/18 04:14 11/28/18 21:27 Ondansetron HCl (Zofran) 4 mg Q6H PRN IVP Nausea & Vomiting 11/24/18 07:00 12/17/18 06:59 11/27/18 18:10 Oxycodone/ Acetaminophen (Percocet 10/325) 1 tab Q4H PRN ORAL Severe Breakthru Pain (>7) 11/25/18 04:15 12/02/18 04:14 11/26/18 16:02 Paroxetine HCl (Paxil) 40 mg DAILY ORAL 11/24/18 09:00 12/18/18 08:59 11/27/18 09:34 Patient Own Medication (Patient's Own Med) 1 ea Q12H ORAL 11/28/18 18:00 12/28/18 17:59 11/28/18 17:38 Patient Own Medication (Patient's Own Med) 1 ea QHS ORAL 11/28/18 21:00 12/28/18 20:59 Patient Own Medication (Patient's Own Med) 1 ea QHS ORAL 11/28/18 21:00 12/28/18 20:59 Phosphorus (Phospha 250 Neutral) 500 mg THREE TIMES A DAY ORAL 11/24/18 09:00 12/22/18 17:59 11/29/18 08:58 Potassium Chloride (K-Dur) 40 meq DAILY ORAL 11/24/18 12:45 12/24/18 12:44 11/28/18 09:26 Tamsulosin HCl (Flomax) 0.4 mg BID ORAL 11/24/18 09:00 12/18/18 20:59 11/29/18 08:39 Temazepam (Restoril) 15 mg HSPRN PRN ORAL Insomnia 11/24/18 07:00 12/01/18 06:59 Terazosin HCl (Hytrin) 2 mg BEDTIME ORAL 11/28/18 21:00 12/28/18 20:59 11/28/18 23:46 Oliverio Rm MD November 29, 2018 11:37
[2018-11-29 12:00] VITALS: BP 128/80
--- NOTE | 2018-11-29 12:26 | Internal Med Progress Note ---
Subjective Date of Service: November 29, 2018 Physician Name Trey Whitaker Attending Physician Carlos Barragan MD Current Medications Medications (Trade) Dose Ordered Sig/Roman Route PRN Reason Start Time Stop Time Status Last Admin Dose Admin Acetaminophen (Tylenol) 650 mg Q4H PRN ORAL fever and pain 11/28/18 20:00 12/28/18 19:59 Baclofen (Lioresal) 10 mg THREE TIMES A DAY ORAL 11/24/18 09:00 12/18/18 08:59 11/29/18 08:39 Cefepime HCl 2 gm/ Dextrose 110 ml @ 220 mls/hr Q12HR@0300,1500 IV 11/24/18 15:00 12/01/18 14:59 11/29/18 01:59 Dextrose (Dextrose 50%) 25 ml Q30M PRN IV Hypoglycemia 11/24/18 07:00 12/24/18 06:59 Dextrose (Dextrose 50%) 50 ml Q30M PRN IV Hypoglycemia 11/24/18 07:15 12/24/18 07:14 Diltiazem HCl (Cardizem CD) 120 mg DAILY ORAL 11/24/18 09:00 12/23/18 08:59 11/28/18 09:28 Diltiazem HCl (Cardizem CD) 180 mg DAILY ORAL 11/24/18 09:00 12/23/18 08:59 11/28/18 09:26 Heparin Sodium (Porcine) (Heparin 5000 units/ml) 5,000 units EVERY 12 HOURS SUBQ 11/24/18 09:00 12/18/18 08:59 11/29/18 08:49 Levothyroxine Sodium (Synthroid) 25 mcg DAILY@0630 ORAL 11/25/18 06:30 12/18/18 06:29 11/29/18 06:53 Loperamide HCl (Imodium) 4 mg Q6H PRN ORAL Diarrhea 11/24/18 12:30 12/20/18 12:29 11/29/18 10:44 Metoprolol Tartrate (Lopressor) 25 mg Q12HR ORAL 11/25/18 04:15 12/25/18 04:14 11/29/18 08:39 Metronidazole (Flagyl) 500 mg Q8HR ORAL 11/24/18 14:00 12/01/18 13:59 11/29/18 06:53 Mirtazapine (Remeron) 15 mg BEDTIME ORAL 11/24/18 21:00 12/18/18 20:59 11/28/18 23:47 Morphine Sulfate (Morphine Sulfate) 2 mg Q4H PRN IVP Moderate Pain (Pain Scale 4-6) 11/25/18 04:15 12/02/18 04:14 11/28/18 21:27 Ondansetron HCl (Zofran) 4 mg Q6H PRN IVP Nausea & Vomiting 11/24/18 07:00 12/17/18 06:59 11/27/18 18:10 Oxycodone/ Acetaminophen (Percocet 10/325) 1 tab Q4H PRN ORAL Severe Breakthru Pain (>7) 11/25/18 04:15 12/02/18 04:14 11/26/18 16:02 Paroxetine HCl (Paxil) 40 mg DAILY ORAL 11/24/18 09:00 12/18/18 08:59 11/27/18 09:34 Patient Own Medication (Patient's Own Med) 1 ea Q12H ORAL 11/28/18 18:00 12/28/18 17:59 11/28/18 17:38 Patient Own Medication (Patient's Own Med) 1 ea QHS ORAL 11/28/18 21:00 12/28/18 20:59 Patient Own Medication (Patient's Own Med) 1 ea QHS ORAL 11/28/18 21:00 12/28/18 20:59 Phosphorus (Phospha 250 Neutral) 500 mg THREE TIMES A DAY ORAL 11/24/18 09:00 12/22/18 17:59 11/29/18 08:58 Potassium Chloride (K-Dur) 40 meq DAILY ORAL 11/24/18 12:45 12/24/18 12:44 11/28/18 09:26 Tamsulosin HCl (Flomax) 0.4 mg BID ORAL 11/24/18 09:00 12/18/18 20:59 11/29/18 08:39 Temazepam (Restoril) 15 mg HSPRN PRN ORAL Insomnia 11/24/18 07:00 12/01/18 06:59 Terazosin HCl (Hytrin) 2 mg BEDTIME ORAL 11/28/18 21:00 12/28/18 20:59 11/28/18 23:46 Allergies: Coded Allergies: CODEINE (Unverified Allergy, Unknown, 11/28/17) EMTRICITABINE (Verified Allergy, Unknown, anxiousness, 08/31/18) SULFAMETHOXAZOLE (Unverified Allergy, Unknown, 10/27/17) TENOFOVIR (Verified Allergy, Unknown, anxiousness, 08/31/18) TRIMETHOPRIM (Unverified Allergy, Unknown, 10/27/17) ROS Limited/Unobtainable: No Constitutional: Reports: no symptoms HEENT: Reports: no symptoms Cardiovascular: Reports: no symptoms Respiratory: Reports: no symptoms Gastrointestinal/Abdominal: Reports: no symptoms Genitourinary: Reports: no symptoms 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: Reports: no symptoms Subjective 68 YO M admitted with constipation rectal bleeding. Cover for Int Med-Dr Barragan. Unable to void earlier-refused in and out cath Objective Last Vital Signs Date Time Temp Pulse Resp B/P (MAP) Pulse Ox O2 Delivery O2 Flow Rate FiO2 11/29/18 12:00 99.6 90 20 128/80 (96) 96 11/29/18 09:00 Room Air 11/24/18 08:05 21 Laboratory Tests Test 11/29/18 06:05 White Blood Count 9.8 K/UL (4.8-10.8) Red Blood Count 4.08 M/UL (4.70-6.10) L Hemoglobin 13.0 G/DL (14.2-18.0) L Hematocrit 37.9 % (42.0-52.0) L Mean Corpuscular Volume 93 FL (80-99) Mean Corpuscular Hemoglobin 31.9 PG (27.0-31.0) H Mean Corpuscular Hemoglobin Concent 34.3 G/DL (32.0-36.0) Red Cell Distribution Width 12.4 % (11.6-14.8) Platelet Count 197 K/UL (150-450) Mean Platelet Volume 8.3 FL (6.5-10.1) Neutrophils (%) (Auto) 69.5 % (45.0-75.0) Lymphocytes (%) (Auto) 22.1 % (20.0-45.0) Monocytes (%) (Auto) 7.1 % (1.0-10.0) Eosinophils (%) (Auto) 0.8 % (0.0-3.0) Basophils (%) (Auto) 0.5 % (0.0-2.0) Sodium Level 136 MMOL/L (136-145) Potassium Level 4.1 MMOL/L (3.5-5.1) Chloride Level 105 MMOL/L (98-107) Carbon Dioxide Level 22 MMOL/L (21-32) Anion Gap 9 mmol/L (5-15) Blood Urea Nitrogen 24 mg/dL (7-18) H Creatinine 1.1 MG/DL (0.55-1.30) Estimat Glomerular Filtration Rate > 60 mL/min (>60) Glucose Level 111 MG/DL (74-106) H Calcium Level 8.9 MG/DL (8.5-10.1) Phosphorus Level 2.3 MG/DL (2.5-4.9) L Magnesium Level 2.1 MG/DL (1.8-2.4) Microbiology Date/Time Source Procedure Growth Status 11/28/18 09:50 Urine,Clean Catch Urine Culture - Preliminary NO GROWTH Resulted Intake and Output 11/28/18 11/29/18 19:00 07:00 Intake Total 790 ml 110 ml Output Total 1200 ml 1545 ml Balance -410 ml -1435 ml Intake Oral 680 ml IV Total 110 ml 110 ml Output Urine Total 600 ml 1100 ml Post Void Residual 600 ml 445 ml Bladder Scan Volume Amount 550 > 300 ml 101-150 ml 101-150 ml # Bowel Movements 2 Objective PHYSICAL EXAMINATION: GENERAL: The patient is a well-developed and well-nourished white male, in no apparent distress. HEENT: Eyes, pupils equal and responsive to light and accommodation. Extraocular movements are intact. NECK: Supple without lymphadenopathy. CHEST: Lungs are clear to auscultation bilaterally without wheezes or rales. CARDIOVASCULAR: Regular rhythm and rate. S1 and S2 are normal without murmurs, rubs, or gallops. ABDOMEN: Soft, nontender, and nondistended. Positive bowel sounds. No evidence of hepatosplenomegaly. Currently, no rebound or guarding noted. EXTREMITIES: Negative for clubbing, cyanosis, or edema. RECTAL/GENITAL: Refused. NEUROLOGIC: Cranial nerves II through XII are grossly intact without focal deficits. Motor strength is 5/5 bilaterally. Deep tendon reflexes are 2+ plantar. Assessment/Plan Assessment/Plan ASSESSMENT: This is a 68-year-old white male. 1. Left abdominal pain. 2. Constipation. 3. Rectal bleeding. 4. Left hydronephrosis. 5. Hypertension. 6. HIV. 7. Hypothyroidism. 8. History of rectal cancer. 9. Cerebrovascular disease. 10. Major depression. 11. Anxiety. 12. Benign prostatic hypertrophy. 13. Paroxysmal supraventricular tachycardia 14. Urine retention TREATMENT: 1. Constipation/abdominal pain/rectal hemorrhage. Gastroenterology consultation with Dr. Dejan Germain. S/P colonoscopy 09/18. C.Diff = neg 2. Right hydronephrosis. There is no definite stone seen. The patient may have passed a renal calculus. 3. Hypertension. Continue metoprolol and amlodipine as above. 4. HIV. Continue HAART per Infectious Disease. 5. Hypothyroidism. Continue Levoxyl as above. 6. History of rectal cancer. The patient is status post biopsy at [facility]. 7. Cerebrovascular disease. 8. Major depression. Continue Paxil as above. 9. Anxiety. 10. Benign prostatic hypertrophy. Continue Flomax and oxybutynin as above. 11. Await cardiology consult 12. Abx=flagyl and cefepime per ID 13. Discharge planning 14. Refused ledesma cath Trey Whitaker MD November 29, 2018 12:26
--- NOTE | 2018-11-29 13:07 | NUR ---
CASE MANAGEMENT:REVIEW 11/29/18 SI: SEPSIS. C-DIFF COLITIS. HIV 99.6 90 20 128/80 96% ON RA H/H-13.0/37/9 BUN+24 IS: IV CEFEPIME Q12 FLAGYL PO Q8HRS K-DUR PO QD LOPRESSOR PO Q12 BACLOFEN PO TID CARDIZEM PO QD HEPARIN SQ Q12 : MED.SURG STATUS 4 EAST DCP: FROM [facility] PLAN: BLADDER SCAN Q6HRS STRAIGHT CATH IF URINE >300
--- NOTE | 2018-11-29 13:54 | Cardiac Electrophysiology PN ---
Assessment/Plan Assessment/Plan 1. Recurrent episodes of SVT. EF of 60%. EPS and ablation as out patient S/P multiple doses of IV metoprolol to terminate the arrhythmia. No recurrence on Cardizem CD 300 daily and metoprolol 25 bid. 2. Hypertension. On Cardizem and Metoprolol 3. HIV and AIDS. 4. Fever and Sepsis, on IV antibiotic. 5. Rectal bleeding. FU by Dr. Germain due to rectal cancer. 6. Abdominal pain. 7. Urinary retention. S/P Straight cath Now agreeable to baltazar BARTON RN Subjective Subjective No new events. Refused ledesma. Objective Last 24 Hour Vital Signs Date Time Temp Pulse Resp B/P (MAP) Pulse Ox O2 Delivery O2 Flow Rate FiO2 11/29/18 12:00 99.6 90 20 128/80 (96) 96 11/29/18 09:00 96 118/76 11/29/18 09:00 96 118/76 11/29/18 09:00 Room Air 11/29/18 08:39 96 118/76 11/29/18 08:00 97.9 96 18 118/76 (90) 99 11/29/18 04:24 98.7 100 20 101/72 (82) 98 11/29/18 00:00 98.8 99 20 123/72 (89) 96 11/28/18 23:47 107 113/73 11/28/18 21:00 Room Air 11/28/18 20:00 98.1 107 22 113/73 (86) 96 11/28/18 16:00 98.6 100 20 143/86 (105) 95 Intake and Output 11/28/18 11/29/18 19:00 07:00 Intake Total 790 ml 110 ml Output Total 1200 ml 1545 ml Balance -410 ml -1435 ml Intake Oral 680 ml IV Total 110 ml 110 ml Output Urine Total 600 ml 1100 ml Post Void Residual 600 ml 445 ml Bladder Scan Volume Amount 550 > 300 ml 101-150 ml 101-150 ml # Bowel Movements 2 Laboratory Tests Test 11/29/18 06:05 White Blood Count 9.8 K/UL (4.8-10.8) Red Blood Count 4.08 M/UL (4.70-6.10) L Hemoglobin 13.0 G/DL (14.2-18.0) L Hematocrit 37.9 % (42.0-52.0) L Mean Corpuscular Volume 93 FL (80-99) Mean Corpuscular Hemoglobin 31.9 PG (27.0-31.0) H Mean Corpuscular Hemoglobin Concent 34.3 G/DL (32.0-36.0) Red Cell Distribution Width 12.4 % (11.6-14.8) Platelet Count 197 K/UL (150-450) Mean Platelet Volume 8.3 FL (6.5-10.1) Neutrophils (%) (Auto) 69.5 % (45.0-75.0) Lymphocytes (%) (Auto) 22.1 % (20.0-45.0) Monocytes (%) (Auto) 7.1 % (1.0-10.0) Eosinophils (%) (Auto) 0.8 % (0.0-3.0) Basophils (%) (Auto) 0.5 % (0.0-2.0) Sodium Level 136 MMOL/L (136-145) Potassium Level 4.1 MMOL/L (3.5-5.1) Chloride Level 105 MMOL/L (98-107) Carbon Dioxide Level 22 MMOL/L (21-32) Anion Gap 9 mmol/L (5-15) Blood Urea Nitrogen 24 mg/dL (7-18) H Creatinine 1.1 MG/DL (0.55-1.30) Estimat Glomerular Filtration Rate > 60 mL/min (>60) Glucose Level 111 MG/DL (74-106) H Calcium Level 8.9 MG/DL (8.5-10.1) Phosphorus Level 2.3 MG/DL (2.5-4.9) L Magnesium Level 2.1 MG/DL (1.8-2.4) Microbiology Date/Time Source Procedure Growth Status 11/28/18 09:50 Urine,Clean Catch Urine Culture - Preliminary NO GROWTH Resulted Objective HEAD AND NECK: No JVD. LUNGS: Clear. CARDIOVASCULAR: Regular S1 and S2 with no gallop or murmur. ABDOMEN: Soft. EXTREMITIES: No pitting edema. Abel Mendez MD November 29, 2018 13:54
--- NOTE | 2018-11-29 15:09 | NUR ---
*-* INSURANCE *-* UPDATED CLINICALS SINCE 11/22/18 HAVE BEEN FAXED TO: PREF[employer]ED [employer] NCM: [facility] P:[phone] F:[phone] X CLINICALS
--- NOTE | 2018-11-29 15:36 | Infectious Diseases Prog Note ---
Assessment/Plan Assessment/Plan Assessment: Sepsis, unclear source- ?intraabdominal source- r/o bacteremia- ?kidney stone- US shows resolution of hydronephrosis -WBC scan neg -Renal US: Interval resolution of right hydronephrosis compared to CT from . 6 mm calcification posterior and lateral to the bladder right of midline. This is likely a phlebolith given presence of a right ureteral jet and absence of hydronephrosis. Multiple cysts within the left kidney -CT abd/p w/: Mild right hydroureteronephrosis. An obstructing stone is not definitely seen.However there is a tiny punctate calcification about 1 mm probably within the right distal ureter.Mild to moderate stool. Cysts within the left kidney. Small umbilical hernia containing fat -u/a neg -Bcx NTD -CXR No acute disease -amylase, lipase normal -Echo no vegetations seen Fever; SP ?source- ?rectal CA, r/o atypical infections, CD4 is over 300- less likelihood for opportunistic infections Mild leukocytosis, SP Diarrhea -stool cx usual enteric thomas -Cdiff neg x of Cdiff 09/2018- no diarrhea currently - failed oral vancomycin; sp tx w/ Fidaxomicin --09/06 Cdiff toxin a/b +; repeat Cdiff neg x2 -09/06 SP Colonoscopy: proctitis -stool cx: normal thomas -Giardia ag, cryptosporidium neg Hx of UTI 08/2018 -u/a wbc 10-15, shirley neg, leuk +3; ucx >100K PROTEUS MIRABILIS ( I Levo; R Amp, bactrim, Cipro, Nitro; S Ceftriaxone) HIV/AIDS- on ARV -11/19 CD4 392 (17.4%) -09/2018 182 (10.1%), VL UD -11/2017 CD4 323 HARVINDER, improving ?Recent dx of Rectal CA at [facility]-obtain records hx of rectal CA CVA 2004 HTN Plan: -Continue Cefepime # 12 (abx d #13/14) and add Flagyl #12/14 for anaerobic coverage pending cultures -11/22 SP IV Vancomycin #6 -11/17 SP Zosyn x1 -09/23 SP Fidaxomicin #10 -09/13/18 SP PO Vancomycin #8 -If fevers continue will need YUDITH and bone marrow biopsy as part of work up for Fever of unknown origin -f/u cx -Monitor CBC/CMP, temperatures -aspiration precautions -Cont ARV: Genvoya, Prezista, Intelence -f/u Brucella, Bartonella, Q fever, Rickettsia serologies -Obtain records at [facility] of recent rectal biopsy Subjective Allergies: Coded Allergies: CODEINE (Unverified Allergy, Unknown, 11/28/17) EMTRICITABINE (Verified Allergy, Unknown, anxiousness, 08/31/18) SULFAMETHOXAZOLE (Unverified Allergy, Unknown, 10/27/17) TENOFOVIR (Verified Allergy, Unknown, anxiousness, 08/31/18) TRIMETHOPRIM (Unverified Allergy, Unknown, 10/27/17) Subjective afebrile in >72hrs Bcx neg refusing some dosages of his HIV meds Objective Vital Signs Last 24 Hour Vital Signs Date Time Temp Pulse Resp B/P (MAP) Pulse Ox O2 Delivery O2 Flow Rate FiO2 11/29/18 12:00 99.6 90 20 128/80 (96) 96 11/29/18 09:00 96 118/76 11/29/18 09:00 96 118/76 11/29/18 09:00 Room Air 11/29/18 08:39 96 118/76 11/29/18 08:00 97.9 96 18 118/76 (90) 99 11/29/18 04:24 98.7 100 20 101/72 (82) 98 11/29/18 00:00 98.8 99 20 123/72 (89) 96 11/28/18 23:47 107 113/73 11/28/18 21:00 Room Air 11/28/18 20:00 98.1 107 22 113/73 (86) 96 11/28/18 16:00 98.6 100 20 143/86 (105) 95 Height (Feet): 5 Height (Inches): 5.00 Weight (Pounds): 145 Objective Abx: IV Vancomycin 11/17- Zosyn x1 11/17 Cefepime 11/18- Assessment: Sepsis- ?intraabdominal source- r/o bacteremia, PNA- ?kidney stone -CT abd/p w/: Mild right hydroureteronephrosis. An obstructing stone is not definitely seen.However there is a tiny punctate calcification about 1 mm probably within the right distal ureter.Mild to moderate stool. Cysts within the left kidney. Small umbilical hernia containing fat -u/a neg -Bcx p -CXR p Fever No leukocytosis HARVINDER, improving ?Recent dx of Rectal CA at [facility]-obtain records hx of Cdiff 09/2018 - failed oral vancomycin; sp tx w/ Fidaxomicin --09/06 Cdiff toxin a/b +; repeat Cdiff neg x2 -09/06 SP Colonoscopy: proctitis -stool cx: normal thomas -Giardia ag, cryptosporidium neg Hx of UTI 08/2018 -u/a wbc 10-15, shirley neg, leuk +3; ucx >100K PROTEUS MIRABILIS ( I Levo; R Amp, bactrim, Cipro, Nitro; S Ceftriaxone) HIV/AIDS- on ARV -09/2018 182 (10.1%), VL UD -11/2017 CD4 323 hx of rectal CA CVA 2004 HTN Plan: -Continue empiric IV Vancomycin #2, Cefepime #1 (abx d #2) and add Flagyl for anaerobic coverage pending cultures -09/23 SP Fidaxomicin #10 -09/13/18 SP PO Vancomycin #8 -f/u cx -Monitor CBC/CMP, temperatures -aspiration precautions -continue ARV- will clarify regimen w/ Dr Hannah Trinh (His HIV provider) [phone] prior to resuming ARV as there is confusion as of what medicines patient is currently taking -CD4 am Thank you for this consultation. Will continue to follow along with you. Discussed with RN. Microbiology Date/Time Source Procedure Growth Status 11/28/18 09:50 Urine,Clean Catch Urine Culture - Preliminary NO GROWTH Resulted Laboratory Tests Test 11/29/18 06:05 White Blood Count 9.8 K/UL (4.8-10.8) Red Blood Count 4.08 M/UL (4.70-6.10) L Hemoglobin 13.0 G/DL (14.2-18.0) L Hematocrit 37.9 % (42.0-52.0) L Mean Corpuscular Volume 93 FL (80-99) Mean Corpuscular Hemoglobin 31.9 PG (27.0-31.0) H Mean Corpuscular Hemoglobin Concent 34.3 G/DL (32.0-36.0) Red Cell Distribution Width 12.4 % (11.6-14.8) Platelet Count 197 K/UL (150-450) Mean Platelet Volume 8.3 FL (6.5-10.1) Neutrophils (%) (Auto) 69.5 % (45.0-75.0) Lymphocytes (%) (Auto) 22.1 % (20.0-45.0) Monocytes (%) (Auto) 7.1 % (1.0-10.0) Eosinophils (%) (Auto) 0.8 % (0.0-3.0) Basophils (%) (Auto) 0.5 % (0.0-2.0) Sodium Level 136 MMOL/L (136-145) Potassium Level 4.1 MMOL/L (3.5-5.1) Chloride Level 105 MMOL/L (98-107) Carbon Dioxide Level 22 MMOL/L (21-32) Anion Gap 9 mmol/L (5-15) Blood Urea Nitrogen 24 mg/dL (7-18) H Creatinine 1.1 MG/DL (0.55-1.30) Estimat Glomerular Filtration Rate > 60 mL/min (>60) Glucose Level 111 MG/DL (74-106) H Calcium Level 8.9 MG/DL (8.5-10.1) Phosphorus Level 2.3 MG/DL (2.5-4.9) L Magnesium Level 2.1 MG/DL (1.8-2.4) Current Medications Medications (Trade) Dose Ordered Sig/Roman Route PRN Reason Start Time Stop Time Status Last Admin Dose Admin Acetaminophen (Tylenol) 650 mg Q4H PRN ORAL fever and pain 11/28/18 20:00 12/28/18 19:59 Baclofen (Lioresal) 10 mg THREE TIMES A DAY ORAL 11/24/18 09:00 12/18/18 08:59 11/29/18 13:09 Cefepime HCl 2 gm/ Dextrose 110 ml @ 220 mls/hr Q12HR@0300,1500 IV 11/24/18 15:00 12/01/18 14:59 11/29/18 14:34 Dextrose (Dextrose 50%) 25 ml Q30M PRN IV Hypoglycemia 11/24/18 07:00 12/24/18 06:59 Dextrose (Dextrose 50%) 50 ml Q30M PRN IV Hypoglycemia 11/24/18 07:15 12/24/18 07:14 Diltiazem HCl (Cardizem CD) 120 mg DAILY ORAL 11/24/18 09:00 12/23/18 08:59 11/28/18 09:28 Diltiazem HCl (Cardizem CD) 180 mg DAILY ORAL 11/24/18 09:00 12/23/18 08:59 11/28/18 09:26 Heparin Sodium (Porcine) (Heparin 5000 units/ml) 5,000 units EVERY 12 HOURS SUBQ 11/24/18 09:00 12/18/18 08:59 11/29/18 08:49 Levothyroxine Sodium (Synthroid) 25 mcg DAILY@0630 ORAL 11/25/18 06:30 12/18/18 06:29 11/29/18 06:53 Loperamide HCl (Imodium) 4 mg Q6H PRN ORAL Diarrhea 11/24/18 12:30 12/20/18 12:29 11/29/18 10:44 Metoprolol Tartrate (Lopressor) 25 mg Q12HR ORAL 11/25/18 04:15 12/25/18 04:14 11/29/18 08:39 Metronidazole (Flagyl) 500 mg Q8HR ORAL 11/24/18 14:00 12/01/18 13:59 11/29/18 13:09 Mirtazapine (Remeron) 15 mg BEDTIME ORAL 11/24/18 21:00 12/18/18 20:59 11/28/18 23:47 Morphine Sulfate (Morphine Sulfate) 2 mg Q4H PRN IVP Moderate Pain (Pain Scale 4-6) 11/25/18 04:15 12/02/18 04:14 11/28/18 21:27 Ondansetron HCl (Zofran) 4 mg Q6H PRN IVP Nausea & Vomiting 11/24/18 07:00 12/17/18 06:59 11/27/18 18:10 Oxycodone/ Acetaminophen (Percocet 10/325) 1 tab Q4H PRN ORAL Severe Breakthru Pain (>7) 11/25/18 04:15 12/02/18 04:14 11/26/18 16:02 Paroxetine HCl (Paxil) 40 mg DAILY ORAL 11/24/18 09:00 12/18/18 08:59 11/27/18 09:34 Patient Own Medication (Patient's Own Med) 1 ea Q12H ORAL 11/28/18 18:00 12/28/18 17:59 11/28/18 17:38 Patient Own Medication (Patient's Own Med) 1 ea QHS ORAL 11/28/18 21:00 12/28/18 20:59 Patient Own Medication (Patient's Own Med) 1 ea QHS ORAL 11/28/18 21:00 12/28/18 20:59 Phosphorus (Phospha 250 Neutral) 500 mg THREE TIMES A DAY ORAL 11/24/18 09:00 12/22/18 17:59 11/29/18 13:09 Potassium Chloride (K-Dur) 40 meq DAILY ORAL 11/24/18 12:45 12/24/18 12:44 11/28/18 09:26 Tamsulosin HCl (Flomax) 0.4 mg BID ORAL 11/24/18 09:00 12/18/18 20:59 11/29/18 08:39 Temazepam (Restoril) 15 mg HSPRN PRN ORAL Insomnia 11/24/18 07:00 12/01/18 06:59 Terazosin HCl (Hytrin) 2 mg BEDTIME ORAL 11/28/18 21:00 12/28/18 20:59 11/28/18 23:46 Miranda Cordero M.D. November 29, 2018 15:36
[2018-11-29 16:00] VITALS: BP 97/56
--- NOTE | 2018-11-29 16:03 | Nephrology Progress Note ---
Assessment/Plan Problem List: (1) Urinary retention Assessment: had 600 cc retention today- straught cathed (2) Sepsis (3) Fecal impaction (4) Hypokalemia (5) Hypothyroidism (6) HIV (human immunodeficiency virus infection) (7) Anemia Assessment Sepsis Possible PNA Acute kidney injury, possibly due to mild hydroureteronephrosis seen on CT scan -resolved Rectal CA, recently diagnosed HIV/AIDS Fecal retention History of CVA Hypertension Hypothyroidism Depression Hypokalemia Anemia Plan Plan: was refusing Ledesma yesterday monitor for voiding- ldeesma to leg bag if not void in 6-8 hours- refused before K , Phos supplement as needed stool softner Reglan as needed Gastric support Monitor lytes DC IV fluids per cardiology per orders Subjective ROS Limited/Unobtainable: No Constitutional: Reports: malaise Objective Objective Last 24 Hour Vital Signs Date Time Temp Pulse Resp B/P (MAP) Pulse Ox O2 Delivery O2 Flow Rate FiO2 11/29/18 12:00 99.6 90 20 128/80 (96) 96 11/29/18 09:00 96 118/76 11/29/18 09:00 96 118/76 11/29/18 09:00 Room Air 11/29/18 08:39 96 118/76 11/29/18 08:00 97.9 96 18 118/76 (90) 99 11/29/18 04:24 98.7 100 20 101/72 (82) 98 11/29/18 00:00 98.8 99 20 123/72 (89) 96 11/28/18 23:47 107 113/73 11/28/18 21:00 Room Air 11/28/18 20:00 98.1 107 22 113/73 (86) 96 Intake and Output 11/28/18 11/29/18 19:00 07:00 Intake Total 790 ml 110 ml Output Total 1200 ml 1545 ml Balance -410 ml -1435 ml Intake Oral 680 ml IV Total 110 ml 110 ml Output Urine Total 600 ml 1100 ml Post Void Residual 600 ml 445 ml Bladder Scan Volume Amount 550 > 300 ml 101-150 ml 101-150 ml # Bowel Movements 2 Laboratory Tests 11/29/18 06:05: White Blood Count 9.8, Red Blood Count 4.08L, Hemoglobin 13.0L, Hematocrit 37.9L , Mean Corpuscular Volume 93, Mean Corpuscular Hemoglobin 31.9H, Mean Corpuscular Hemoglobin Concent 34.3, Red Cell Distribution Width 12.4, Platelet Count 197, Mean Platelet Volume 8.3, Neutrophils (%) (Auto) 69.5, Lymphocytes (% ) (Auto) 22.1, Monocytes (%) (Auto) 7.1, Eosinophils (%) (Auto) 0.8, Basophils ( %) (Auto) 0.5, Sodium Level 136, Potassium Level 4.1, Chloride Level 105, Carbon Dioxide Level 22, Anion Gap 9, Blood Urea Nitrogen 24H, Creatinine 1.1, Estimat Glomerular Filtration Rate > 60, Glucose Level 111H, Calcium Level 8.9, Phosphorus Level 2.3L, Magnesium Level 2.1 Height (Feet): 5 Height (Inches): 5.00 Weight (Pounds): 145 General Appearance: no apparent distress Cardiovascular: tachycardia Respiratory/Chest: decreased breath sounds Abdomen: distended Objective no change Hayden Andres MD November 29, 2018 16:03
--- NOTE | 2018-11-29 19:00 | NUR ---
HAND-OFF: Report given to CHARLEY ROMAN.
[2018-11-29 19:54] VITALS: BP 146/88
--- NOTE | 2018-11-29 19:56 | NUR ---
NURSE NOTES: Patient in bed, awake, alert. Had complaints of 10/10 pain, Percocet prn was given as ordered. No acute respiratory distress noted. Patient has IV access in place. Bed is locked and is in the lowest position, call light within easy reach, bed alarm on. Will continue to monitor.
[2018-11-29] MEDS: Morphine Sulfate 2mg/ml Inj(IV/IM USE ONLY) IVP PRN (21:12)
[2018-11-29] MEDS: Terazosin 1mg cap ORAL SCH (21:14)
[2018-11-29] MEDS: GENVOYA ORAL SCH (21:14)
[2018-11-30 00:04] VITALS: BP 102/72
[2018-11-30] MEDS: Cefepime HCl 2 GM in D5W 110 ML IV SCH ×2 (02:38→14:46)
[2018-11-30 04:17] VITALS: BP 111/75
--- NOTE | 2018-11-30 04:50 | NUR ---
NURSE NOTES: PATIENT HAD COMPLAINTS OF PAIN AND REQUESTED FOR PERCOCET PRN. MEDICATION WAS GIVEN ORDERED. WILL CONTINUE TO MONITOR.
--- NOTE | 2018-11-30 06:07 | NUR ---
NURSE NOTES: PATIENT HAD AN EPISODE OF VOMITING. ZOFRAN PRN WAS GIVEN ORDERED. WILL CONTINUE TO MONITOR.
[2018-11-30] MEDS: metroNIDAZOLE 500mg tab ORAL SCH ×3 (06:57→22:01)
[2018-11-30] MEDS: Levothyroxine 25mcg tab ORAL SCH (06:57)
--- NOTE | 2018-11-30 07:35 | NUR ---
HAND-OFF: Report given to LEILA ROTHMAN RN. ENDORSED TO AM NURSE TO FOLLOW UP REGARDING INTELENCE MEDICATION, INTELENCE IS NOT IN THE PATIENT'S BIN OR CASETTE. NOTIFIED [facility] AND WAS TOLD THEY WOULD RETIME. Addendum: 11/30/18 at 0743 by JESSIE CONRAD RN RN PATIENT NO LONGER HAVING VOMITING.
[2018-11-30 07:41] LABS: BASOPHILS % (AUTO) 0.4 % (0.0-2.0); EOSINOPHILS % (AUTO) 0.8 % (0.0-3.0); HEMATOCRIT 35.4 % (42.0-52.0); HEMOGLOBIN 11.9 G/DL (14.2-18.0); LYMPHOCYTES % (AUTO) 17.4 % (20.0-45.0); MEAN CORPUSCULAR VOLUME 92 FL (80-99); NEUTROPHILS % (AUTO) 74.4 % (45.0-75.0); PLATELET COUNT 180 K/UL (150-450); RED BLOOD COUNT 3.85 M/UL (4.70-6.10); RED CELL DISTRIBUTION WIDTH 12.2 % (11.6-14.8)
[2018-11-30 08:00] VITALS: BP 116/70
--- NOTE | 2018-11-30 08:00 | NUR ---
NURSE NOTES: Patient alert x4, on room air, on sign of distress and shrotness of breath; no sign of chest pain; IV Left wrist flushes well; Fole in place drains yellow urine; bed at lowest position, side rails up x2, breaks engaged; call light within reach; will keep monitoring.
[2018-11-30 08:04] LABS: ANION GAP 11 mmol/L (5-15); BLOOD UREA NITROGEN 23 mg/dL (7-18); CALCIUM 8.7 MG/DL (8.5-10.1); CARBON DIOXIDE 23 MMOL/L (21-32); CHLORIDE 105 MMOL/L (98-107); CREATININE 1.2 MG/DL (0.55-1.30); PHOSPHORUS 3.3 MG/DL (2.5-4.9); POTASSIUM 3.6 MMOL/L (3.5-5.1); SODIUM 139 MMOL/L (136-145)
--- NOTE | 2018-11-30 09:07 | Infectious Diseases Prog Note ---
Assessment/Plan Assessment/Plan Assessment: Sepsis, unclear source- ?intraabdominal source- r/o bacteremia- ?kidney stone- US shows resolution of hydronephrosis -WBC scan neg -Renal US: Interval resolution of right hydronephrosis compared to CT from . 6 mm calcification posterior and lateral to the bladder right of midline. This is likely a phlebolith given presence of a right ureteral jet and absence of hydronephrosis. Multiple cysts within the left kidney -CT abd/p w/: Mild right hydroureteronephrosis. An obstructing stone is not definitely seen.However there is a tiny punctate calcification about 1 mm probably within the right distal ureter.Mild to moderate stool. Cysts within the left kidney. Small umbilical hernia containing fat -u/a neg -Bcx NTD -CXR No acute disease -amylase, lipase normal -Echo no vegetations seen Fever; SP ?source- ?rectal CA, r/o atypical infections, CD4 is over 300- less likelihood for opportunistic infections Mild leukocytosis, SP Diarrhea -stool cx usual enteric thomas -Cdiff neg x of Cdiff 09/2018- no diarrhea currently - failed oral vancomycin; sp tx w/ Fidaxomicin --09/06 Cdiff toxin a/b +; repeat Cdiff neg x2 -09/06 SP Colonoscopy: proctitis -stool cx: normal thomas -Giardia ag, cryptosporidium neg Hx of UTI 08/2018 -u/a wbc 10-15, shirley neg, leuk +3; ucx >100K PROTEUS MIRABILIS ( I Levo; R Amp, bactrim, Cipro, Nitro; S Ceftriaxone) HIV/AIDS- on ARV -11/19 CD4 392 (17.4%) -09/2018 182 (10.1%), VL UD -11/2017 CD4 323 HARVINDER, improving ?Recent dx of Rectal CA at [facility]-obtain records hx of rectal CA CVA 2004 HTN Plan: -Continue Cefepime # 13 (abx d #/) and add Flagyl #13/14 for anaerobic coverage pending cultures -11/22 SP IV Vancomycin #6 -11/17 SP Zosyn x1 -09/23 SP Fidaxomicin #10 -09/13/18 SP PO Vancomycin #8 -If fevers continue will need YUDITH and bone marrow biopsy as part of work up for Fever of unknown origin -f/u cx -Monitor CBC/CMP, temperatures -aspiration precautions -Cont ARV: Genvoya, Prezista, Intelence -f/u Brucella, Bartonella, Q fever, Rickettsia serologies -Obtain records at [facility] of recent rectal biopsy Subjective Allergies: Coded Allergies: CODEINE (Unverified Allergy, Unknown, 11/28/17) EMTRICITABINE (Verified Allergy, Unknown, anxiousness, 08/31/18) SULFAMETHOXAZOLE (Unverified Allergy, Unknown, 10/27/17) TENOFOVIR (Verified Allergy, Unknown, anxiousness, 08/31/18) TRIMETHOPRIM (Unverified Allergy, Unknown, 10/27/17) Subjective afebrile took HIV meds last night Objective Vital Signs Last 24 Hour Vital Signs Date Time Temp Pulse Resp B/P (MAP) Pulse Ox O2 Delivery O2 Flow Rate FiO2 11/30/18 05:18 98.7 11/30/18 04:17 98.7 100 20 111/75 (87) 94 11/30/18 00:04 98.7 86 20 102/72 (82) 94 11/29/18 21:42 98.4 11/29/18 21:14 99 146/88 11/29/18 21:12 Room Air 11/29/18 19:54 98.4 99 20 146/88 (107) 96 11/29/18 16:00 97.2 77 19 97/56 (70) 97 11/29/18 14:30 Room Air 11/29/18 12:00 99.6 90 20 128/80 (96) 96 Height (Feet): 5 Height (Inches): 5.00 Weight (Pounds): 145 Objective HEAD AND NECK: No JVD. LUNGS: Clear. CARDIOVASCULAR: Regular S1 and S2 with no gallop or murmur. ABDOMEN: Soft. EXTREMITIES: No pitting edema. Microbiology Date/Time Source Procedure Growth Status 11/28/18 09:50 Urine,Clean Catch Urine Culture - Preliminary NO GROWTH AFTER 24 HOURS Resulted Laboratory Tests Test 11/30/18 06:30 White Blood Count 9.0 K/UL (4.8-10.8) Red Blood Count 3.85 M/UL (4.70-6.10) L Hemoglobin 11.9 G/DL (14.2-18.0) L Hematocrit 35.4 % (42.0-52.0) L Mean Corpuscular Volume 92 FL (80-99) Mean Corpuscular Hemoglobin 31.0 PG (27.0-31.0) Mean Corpuscular Hemoglobin Concent 33.7 G/DL (32.0-36.0) Red Cell Distribution Width 12.2 % (11.6-14.8) Platelet Count 180 K/UL (150-450) Mean Platelet Volume 8.6 FL (6.5-10.1) Neutrophils (%) (Auto) 74.4 % (45.0-75.0) Lymphocytes (%) (Auto) 17.4 % (20.0-45.0) L Monocytes (%) (Auto) 7.0 % (1.0-10.0) Eosinophils (%) (Auto) 0.8 % (0.0-3.0) Basophils (%) (Auto) 0.4 % (0.0-2.0) Sodium Level 139 MMOL/L (136-145) Potassium Level 3.6 MMOL/L (3.5-5.1) Chloride Level 105 MMOL/L (98-107) Carbon Dioxide Level 23 MMOL/L (21-32) Anion Gap 11 mmol/L (5-15) Blood Urea Nitrogen 23 mg/dL (7-18) H Creatinine 1.2 MG/DL (0.55-1.30) Estimat Glomerular Filtration Rate 59.9 mL/min (>60) Glucose Level 111 MG/DL (74-106) H Calcium Level 8.7 MG/DL (8.5-10.1) Phosphorus Level 3.3 MG/DL (2.5-4.9) Magnesium Level 2.1 MG/DL (1.8-2.4) Current Medications Medications (Trade) Dose Ordered Sig/Roman Route PRN Reason Start Time Stop Time Status Last Admin Dose Admin Acetaminophen (Tylenol) 650 mg Q4H PRN ORAL fever and pain 11/28/18 20:00 12/28/18 19:59 Baclofen (Lioresal) 10 mg THREE TIMES A DAY ORAL 11/24/18 09:00 12/18/18 08:59 11/29/18 17:16 Cefepime HCl 2 gm/ Dextrose 110 ml @ 220 mls/hr Q12HR@0300,1500 IV 11/24/18 15:00 12/01/18 14:59 11/30/18 02:38 Dextrose (Dextrose 50%) 25 ml Q30M PRN IV Hypoglycemia 11/24/18 07:00 12/24/18 06:59 Dextrose (Dextrose 50%) 50 ml Q30M PRN IV Hypoglycemia 11/24/18 07:15 12/24/18 07:14 Diltiazem HCl (Cardizem CD) 120 mg DAILY ORAL 11/24/18 09:00 12/23/18 08:59 11/28/18 09:28 Diltiazem HCl (Cardizem CD) 180 mg DAILY ORAL 11/24/18 09:00 12/23/18 08:59 11/28/18 09:26 Heparin Sodium (Porcine) (Heparin 5000 units/ml) 5,000 units EVERY 12 HOURS SUBQ 11/24/18 09:00 12/18/18 08:59 11/29/18 08:49 Levothyroxine Sodium (Synthroid) 25 mcg DAILY@0630 ORAL 11/25/18 06:30 12/18/18 06:29 11/30/18 06:57 Loperamide HCl (Imodium) 4 mg Q6H PRN ORAL Diarrhea 11/24/18 12:30 12/20/18 12:29 11/29/18 10:44 Metoprolol Tartrate (Lopressor) 25 mg Q12HR ORAL 11/25/18 04:15 12/25/18 04:14 11/29/18 21:14 Metronidazole (Flagyl) 500 mg Q8HR ORAL 11/24/18 14:00 12/01/18 13:59 11/30/18 06:57 Mirtazapine (Remeron) 15 mg BEDTIME ORAL 11/24/18 21:00 12/18/18 20:59 11/29/18 21:13 Morphine Sulfate (Morphine Sulfate) 2 mg Q4H PRN IVP Moderate Pain (Pain Scale 4-6) 11/25/18 04:15 12/02/18 04:14 11/29/18 21:12 Ondansetron HCl (Zofran) 4 mg Q6H PRN IVP Nausea & Vomiting 11/24/18 07:00 12/17/18 06:59 11/30/18 06:07 Oxycodone/ Acetaminophen (Percocet 10/325) 1 tab Q4H PRN ORAL Severe Breakthru Pain (>7) 11/25/18 04:15 12/02/18 04:14 11/30/18 04:48 Paroxetine HCl (Paxil) 40 mg DAILY ORAL 11/24/18 09:00 12/18/18 08:59 11/27/18 09:34 Patient Own Medication (Patient's Own Med) 1 ea Q12H ORAL 11/28/18 18:00 12/28/18 17:59 11/29/18 17:17 Patient Own Medication (Patient's Own Med) 1 ea QHS ORAL 11/28/18 21:00 12/28/18 20:59 11/29/18 21:14 Patient Own Medication (Patient's Own Med) 1 ea QHS ORAL 11/28/18 21:00 12/28/18 20:59 11/29/18 21:14 Phosphorus (Phospha 250 Neutral) 500 mg THREE TIMES A DAY ORAL 11/24/18 09:00 12/22/18 17:59 11/29/18 17:16 Potassium Chloride (K-Dur) 40 meq DAILY ORAL 11/24/18 12:45 12/24/18 12:44 11/28/18 09:26 Tamsulosin HCl (Flomax) 0.4 mg BID ORAL 11/24/18 09:00 12/18/18 20:59 11/29/18 17:17 Temazepam (Restoril) 15 mg HSPRN PRN ORAL Insomnia 11/24/18 07:00 12/01/18 06:59 Terazosin HCl (Hytrin) 2 mg BEDTIME ORAL 11/28/18 21:00 12/28/18 20:59 11/29/18 21:14 Miranda Cordero M.D. November 30, 2018 09:07
[2018-11-30] MEDS: Phospha 250 Neutral tab ORAL SCH ×3 (09:30→17:15)
[2018-11-30] MEDS: PARoxetine 20mg tab ORAL SCH (09:30)
[2018-11-30] MEDS: Metoprolol 25mg tab ORAL SCH ×2 (09:30→22:01)
[2018-11-30] MEDS: Tamsulosin 0.4mg cap ORAL SCH ×2 (09:30→17:15)
[2018-11-30] MEDS: dilTIAZem HCl CD 120mg cap ORAL SCH (09:30)
[2018-11-30] MEDS: dilTIAZem HCl CD 180mg cap ORAL SCH (09:31)
[2018-11-30] MEDS: Heparin 5000 units/ml inj SUBQ SCH ×2 (09:33→22:08)
--- NOTE | 2018-11-30 10:25 | Cardiac Electrophysiology PN ---
Assessment/Plan Assessment/Plan 1. Recurrent episodes of SVT. EF of 60%. EPS and ablation as out patient S/P multiple doses of IV metoprolol to terminate the arrhythmia. No recurrence on Cardizem CD 300 daily and metoprolol 25 bid. 2. Hypertension. On Cardizem and Metoprolol 3. HIV and AIDS. 4. Fever and Sepsis, on IV antibiotic. 5. Rectal bleeding. FU by Dr. Germain due to rectal cancer. 6. Abdominal pain. 7. Urinary retention. S/P Langford ORALIA RN Subjective Subjective No CP or SOB. Now has Langford. Objective Last 24 Hour Vital Signs Date Time Temp Pulse Resp B/P (MAP) Pulse Ox O2 Delivery O2 Flow Rate FiO2 11/30/18 09:31 97 116/70 11/30/18 09:30 97 116/70 11/30/18 09:30 97 116/70 11/30/18 09:00 Room Air 11/30/18 08:00 98.1 97 20 116/70 (85) 94 11/30/18 05:18 98.7 11/30/18 04:17 98.7 100 20 111/75 (87) 94 11/30/18 00:04 98.7 86 20 102/72 (82) 94 11/29/18 21:42 98.4 11/29/18 21:14 99 146/88 11/29/18 21:12 Room Air 11/29/18 19:54 98.4 99 20 146/88 (107) 96 11/29/18 16:00 97.2 77 19 97/56 (70) 97 11/29/18 14:30 Room Air 11/29/18 12:00 99.6 90 20 128/80 (96) 96 Intake and Output 11/29/18 11/30/18 19:00 07:00 Intake Total 350 ml 110 ml Output Total 800 ml 500 ml Balance -450 ml -390 ml Intake Oral 240 ml IV Total 110 ml 110 ml Output Urine Total 800 ml 500 ml Bladder Scan Volume Amount 151-200 ml Laboratory Tests Test 11/30/18 06:30 White Blood Count 9.0 K/UL (4.8-10.8) Red Blood Count 3.85 M/UL (4.70-6.10) L Hemoglobin 11.9 G/DL (14.2-18.0) L Hematocrit 35.4 % (42.0-52.0) L Mean Corpuscular Volume 92 FL (80-99) Mean Corpuscular Hemoglobin 31.0 PG (27.0-31.0) Mean Corpuscular Hemoglobin Concent 33.7 G/DL (32.0-36.0) Red Cell Distribution Width 12.2 % (11.6-14.8) Platelet Count 180 K/UL (150-450) Mean Platelet Volume 8.6 FL (6.5-10.1) Neutrophils (%) (Auto) 74.4 % (45.0-75.0) Lymphocytes (%) (Auto) 17.4 % (20.0-45.0) L Monocytes (%) (Auto) 7.0 % (1.0-10.0) Eosinophils (%) (Auto) 0.8 % (0.0-3.0) Basophils (%) (Auto) 0.4 % (0.0-2.0) Sodium Level 139 MMOL/L (136-145) Potassium Level 3.6 MMOL/L (3.5-5.1) Chloride Level 105 MMOL/L (98-107) Carbon Dioxide Level 23 MMOL/L (21-32) Anion Gap 11 mmol/L (5-15) Blood Urea Nitrogen 23 mg/dL (7-18) H Creatinine 1.2 MG/DL (0.55-1.30) Estimat Glomerular Filtration Rate 59.9 mL/min (>60) Glucose Level 111 MG/DL (74-106) H Calcium Level 8.7 MG/DL (8.5-10.1) Phosphorus Level 3.3 MG/DL (2.5-4.9) Magnesium Level 2.1 MG/DL (1.8-2.4) Microbiology Date/Time Source Procedure Growth Status 11/28/18 09:50 Urine,Clean Catch Urine Culture - Preliminary NO GROWTH AFTER 24 HOURS Resulted Objective HEAD AND NECK: No JVD. LUNGS: Clear. CARDIOVASCULAR: Regular S1 and S2 with no gallop or murmur. ABDOMEN: Soft. Has Langford catheter in EXTREMITIES: No pitting edema. Abel Mendez MD November 30, 2018 10:25
--- NOTE | 2018-11-30 10:34 | GI Progress Note ---
Assessment/Plan Problems: (1) Severe protein-calorie malnutrition ICD Codes: E43 - Unspecified severe protein-calorie malnutrition SNOMED: 242829638 (2) History of rectal cancer ICD Codes: Z85.048 - Personal history of other malignant neoplasm of rectum, rectosigmoid junction, and anus SNOMED: 968131146 (3) Intractable abdominal pain ICD Codes: R10.9 - Unspecified abdominal pain SNOMED: 07520970, 350571549 Status: stable Status Narrative Discussed with Dr. Germain Assessment/Plan Status post colonoscopy in September 2018 1. Focal proctitis suspicious for C. diff versus ulcerative colitis, status post biopsy. 2. Status post biopsy of the right and left colon to evaluate microscopic colitis. >> negative Rectal bleeding resolved Stable H&H C. difficile negative x2 Stool culture reviewed, gram-negative bacillus Persistent diarrhea resolved Advance diet as tolerated bowel regimen, hold stool softeners and laxatives Lomotil PRN for persistent diarrhea obtain records from [facility] monitor H&H fu ID recs Electrolyte correction Follow labs PPI Discharge planning The patient was seen and examined at bedside and all new and available data was reviewed in the patients chart. I agree with the above findings, impression and plan. (Patient seen earlier today. Signature stamp does not reflect patient encounter time.). - Dejan Germain MD Subjective Subjective Rectal bleeding resolved Diarrhea improved with medication Urinary retention Objective Last 24 Hour Vital Signs Date Time Temp Pulse Resp B/P (MAP) Pulse Ox O2 Delivery O2 Flow Rate FiO2 11/30/18 09:31 97 116/70 11/30/18 09:30 97 116/70 11/30/18 09:30 97 116/70 11/30/18 09:00 Room Air 11/30/18 08:00 98.1 97 20 116/70 (85) 94 11/30/18 05:18 98.7 11/30/18 04:17 98.7 100 20 111/75 (87) 94 11/30/18 00:04 98.7 86 20 102/72 (82) 94 11/29/18 21:42 98.4 11/29/18 21:14 99 146/88 11/29/18 21:12 Room Air 11/29/18 19:54 98.4 99 20 146/88 (107) 96 11/29/18 16:00 97.2 77 19 97/56 (70) 97 11/29/18 14:30 Room Air 11/29/18 12:00 99.6 90 20 128/80 (96) 96 Intake and Output 11/29/18 11/30/18 19:00 07:00 Intake Total 350 ml 110 ml Output Total 800 ml 500 ml Balance -450 ml -390 ml Intake Oral 240 ml IV Total 110 ml 110 ml Output Urine Total 800 ml 500 ml Bladder Scan Volume Amount 151-200 ml Laboratory Tests Test 11/30/18 06:30 White Blood Count 9.0 K/UL (4.8-10.8) Red Blood Count 3.85 M/UL (4.70-6.10) L Hemoglobin 11.9 G/DL (14.2-18.0) L Hematocrit 35.4 % (42.0-52.0) L Mean Corpuscular Volume 92 FL (80-99) Mean Corpuscular Hemoglobin 31.0 PG (27.0-31.0) Mean Corpuscular Hemoglobin Concent 33.7 G/DL (32.0-36.0) Red Cell Distribution Width 12.2 % (11.6-14.8) Platelet Count 180 K/UL (150-450) Mean Platelet Volume 8.6 FL (6.5-10.1) Neutrophils (%) (Auto) 74.4 % (45.0-75.0) Lymphocytes (%) (Auto) 17.4 % (20.0-45.0) L Monocytes (%) (Auto) 7.0 % (1.0-10.0) Eosinophils (%) (Auto) 0.8 % (0.0-3.0) Basophils (%) (Auto) 0.4 % (0.0-2.0) Sodium Level 139 MMOL/L (136-145) Potassium Level 3.6 MMOL/L (3.5-5.1) Chloride Level 105 MMOL/L (98-107) Carbon Dioxide Level 23 MMOL/L (21-32) Anion Gap 11 mmol/L (5-15) Blood Urea Nitrogen 23 mg/dL (7-18) H Creatinine 1.2 MG/DL (0.55-1.30) Estimat Glomerular Filtration Rate 59.9 mL/min (>60) Glucose Level 111 MG/DL (74-106) H Calcium Level 8.7 MG/DL (8.5-10.1) Phosphorus Level 3.3 MG/DL (2.5-4.9) Magnesium Level 2.1 MG/DL (1.8-2.4) Height (Feet): 5 Height (Inches): 5.00 Weight (Pounds): 145 General Appearance: WD/WN, no apparent distress, alert Cardiovascular: normal rate Respiratory/Chest: normal breath sounds, no respiratory distress Abdominal Exam: normal bowel sounds, non tender, soft Extremities: normal range of motion, non-tender Jasen Brink NP November 30, 2018 10:34
--- NOTE | 2018-11-30 11:13 | Nephrology Progress Note ---
Assessment/Plan Problem List: (1) Urinary retention Assessment: had 600 cc retention today- straught cathed (2) Sepsis (3) Fecal impaction (4) Hypokalemia (5) Hypothyroidism (6) HIV (human immunodeficiency virus infection) (7) Anemia Assessment Sepsis Possible PNA Acute kidney injury, possibly due to mild hydroureteronephrosis seen on CT scan -resolved Rectal CA, recently diagnosed HIV/AIDS Fecal retention History of CVA Hypertension Hypothyroidism Depression Hypokalemia Anemia Plan was refusing Ledesma yesterday, but has ledesma now monitor for voiding- ledesma to leg bag if not void in 6-8 hours- refused before K , Phos supplement as needed stool softner Reglan as needed Gastric support Monitor lytes DC IV fluids per cardiology per orders Subjective ROS Limited/Unobtainable: No Objective Objective Last 24 Hour Vital Signs Date Time Temp Pulse Resp B/P (MAP) Pulse Ox O2 Delivery O2 Flow Rate FiO2 11/30/18 09:31 97 116/70 11/30/18 09:30 97 116/70 11/30/18 09:30 97 116/70 11/30/18 09:00 Room Air 11/30/18 08:00 98.1 97 20 116/70 (85) 94 11/30/18 05:18 98.7 11/30/18 04:17 98.7 100 20 111/75 (87) 94 11/30/18 00:04 98.7 86 20 102/72 (82) 94 11/29/18 21:42 98.4 11/29/18 21:14 99 146/88 11/29/18 21:12 Room Air 11/29/18 19:54 98.4 99 20 146/88 (107) 96 11/29/18 16:00 97.2 77 19 97/56 (70) 97 11/29/18 14:30 Room Air 11/29/18 12:00 99.6 90 20 128/80 (96) 96 Intake and Output 11/29/18 11/30/18 19:00 07:00 Intake Total 350 ml 110 ml Output Total 800 ml 500 ml Balance -450 ml -390 ml Intake Oral 240 ml IV Total 110 ml 110 ml Output Urine Total 800 ml 500 ml Bladder Scan Volume Amount 151-200 ml Laboratory Tests 11/30/18 06:30: White Blood Count 9.0, Red Blood Count 3.85L, Hemoglobin 11.9L, Hematocrit 35.4L , Mean Corpuscular Volume 92, Mean Corpuscular Hemoglobin 31.0, Mean Corpuscular Hemoglobin Concent 33.7, Red Cell Distribution Width 12.2, Platelet Count 180, Mean Platelet Volume 8.6, Neutrophils (%) (Auto) 74.4, Lymphocytes (% ) (Auto) 17.4L, Monocytes (%) (Auto) 7.0, Eosinophils (%) (Auto) 0.8, Basophils (%) (Auto) 0.4, Sodium Level 139, Potassium Level 3.6, Chloride Level 105, Carbon Dioxide Level 23, Anion Gap 11, Blood Urea Nitrogen 23H, Creatinine 1.2, Estimat Glomerular Filtration Rate 59.9, Glucose Level 111H, Calcium Level 8.7, Phosphorus Level 3.3, Magnesium Level 2.1 Height (Feet): 5 Height (Inches): 5.00 Weight (Pounds): 145 General Appearance: no apparent distress Cardiovascular: tachycardia Respiratory/Chest: decreased breath sounds Abdomen: distended Genitourinary/Rectal: other - NOW HAS LEDESMA Objective no change Hayden Andres MD November 30, 2018 11:13
[2018-11-30 12:00] VITALS: BP 115/75
--- NOTE | 2018-11-30 12:11 | Pulmonology Progress Note ---
Assessment/Plan Problems: (1) Sepsis (2) ATN (acute tubular necrosis) (3) Urinary retention (4) Intractable abdominal pain (5) Diarrhea (6) History of rectal cancer (7) C. difficile colitis (8) Severe protein-calorie malnutrition (9) HIV (human immunodeficiency virus infection) Assessment/Plan awaiting Urology pt has a ledesma now on Cefepime 12/ doing better indium scan in process CD4 count noted, it is 17 improving add Hydrin Subjective ROS Limited/Unobtainable: No Interval Events: has a ledesma now Constitutional: Reports: no symptoms HEENT: Repors: no symptoms Allergies: Coded Allergies: CODEINE (Unverified Allergy, Unknown, 11/28/17) EMTRICITABINE (Verified Allergy, Unknown, anxiousness, 08/31/18) SULFAMETHOXAZOLE (Unverified Allergy, Unknown, 10/27/17) TENOFOVIR (Verified Allergy, Unknown, anxiousness, 08/31/18) TRIMETHOPRIM (Unverified Allergy, Unknown, 10/27/17) Objective Last 24 Hour Vital Signs Date Time Temp Pulse Resp B/P (MAP) Pulse Ox O2 Delivery O2 Flow Rate FiO2 11/30/18 09:31 97 116/70 11/30/18 09:30 97 116/70 11/30/18 09:30 97 116/70 11/30/18 09:00 Room Air 11/30/18 08:00 98.1 97 20 116/70 (85) 94 11/30/18 05:18 98.7 11/30/18 04:17 98.7 100 20 111/75 (87) 94 11/30/18 00:04 98.7 86 20 102/72 (82) 94 11/29/18 21:42 98.4 11/29/18 21:14 99 146/88 11/29/18 21:12 Room Air 11/29/18 19:54 98.4 99 20 146/88 (107) 96 11/29/18 16:00 97.2 77 19 97/56 (70) 97 11/29/18 14:30 Room Air Intake and Output 11/29/18 11/30/18 19:00 07:00 Intake Total 350 ml 110 ml Output Total 800 ml 500 ml Balance -450 ml -390 ml Intake Oral 240 ml IV Total 110 ml 110 ml Output Urine Total 800 ml 500 ml Bladder Scan Volume Amount 151-200 ml Objective General Appearance: cachetic HEENT: normocephalic, atraumatic Respiratory/Chest: chest wall non-tender, lungs clear Cardiovascular: normal peripheral pulses, normal rate Abdomen: normal bowel sounds, no organomegaly Extremities: no cyanosis Skin: no lesions Microbiology Date/Time Source Procedure Growth Status 11/28/18 09:50 Urine,Clean Catch Urine Culture - Preliminary NO GROWTH AFTER 24 HOURS Resulted Laboratory Tests 11/30/18 06:30: White Blood Count 9.0, Red Blood Count 3.85L, Hemoglobin 11.9L, Hematocrit 35.4L , Mean Corpuscular Volume 92, Mean Corpuscular Hemoglobin 31.0, Mean Corpuscular Hemoglobin Concent 33.7, Red Cell Distribution Width 12.2, Platelet Count 180, Mean Platelet Volume 8.6, Neutrophils (%) (Auto) 74.4, Lymphocytes (% ) (Auto) 17.4L, Monocytes (%) (Auto) 7.0, Eosinophils (%) (Auto) 0.8, Basophils (%) (Auto) 0.4, Sodium Level 139, Potassium Level 3.6, Chloride Level 105, Carbon Dioxide Level 23, Anion Gap 11, Blood Urea Nitrogen 23H, Creatinine 1.2, Estimat Glomerular Filtration Rate 59.9, Glucose Level 111H, Calcium Level 8.7, Phosphorus Level 3.3, Magnesium Level 2.1 Current Medications Medications (Trade) Dose Ordered Sig/Roman Route PRN Reason Start Time Stop Time Status Last Admin Dose Admin Acetaminophen (Tylenol) 650 mg Q4H PRN ORAL fever and pain 11/28/18 20:00 12/28/18 19:59 Baclofen (Lioresal) 10 mg THREE TIMES A DAY ORAL 11/24/18 09:00 12/18/18 08:59 11/30/18 09:31 Cefepime HCl 2 gm/ Dextrose 110 ml @ 220 mls/hr Q12HR@0300,1500 IV 11/24/18 15:00 12/01/18 14:59 11/30/18 02:38 Dextrose (Dextrose 50%) 25 ml Q30M PRN IV Hypoglycemia 11/24/18 07:00 12/24/18 06:59 Dextrose (Dextrose 50%) 50 ml Q30M PRN IV Hypoglycemia 11/24/18 07:15 12/24/18 07:14 Diltiazem HCl (Cardizem CD) 120 mg DAILY ORAL 11/24/18 09:00 12/23/18 08:59 11/30/18 09:30 Diltiazem HCl (Cardizem CD) 180 mg DAILY ORAL 11/24/18 09:00 12/23/18 08:59 11/30/18 09:31 Heparin Sodium (Porcine) (Heparin 5000 units/ml) 5,000 units EVERY 12 HOURS SUBQ 11/24/18 09:00 12/18/18 08:59 11/30/18 09:33 Levothyroxine Sodium (Synthroid) 25 mcg DAILY@0630 ORAL 11/25/18 06:30 12/18/18 06:29 11/30/18 06:57 Loperamide HCl (Imodium) 4 mg Q6H PRN ORAL Diarrhea 11/24/18 12:30 12/20/18 12:29 11/29/18 10:44 Metoprolol Tartrate (Lopressor) 25 mg Q12HR ORAL 11/25/18 04:15 12/25/18 04:14 11/30/18 09:30 Metronidazole (Flagyl) 500 mg Q8HR ORAL 11/24/18 14:00 12/01/18 13:59 11/30/18 06:57 Mirtazapine (Remeron) 15 mg BEDTIME ORAL 11/24/18 21:00 12/18/18 20:59 11/29/18 21:13 Morphine Sulfate (Morphine Sulfate) 2 mg Q4H PRN IVP Moderate Pain (Pain Scale 4-6) 11/25/18 04:15 12/02/18 04:14 11/29/18 21:12 Ondansetron HCl (Zofran) 4 mg Q6H PRN IVP Nausea & Vomiting 11/24/18 07:00 12/17/18 06:59 11/30/18 06:07 Oxycodone/ Acetaminophen (Percocet 10/325) 1 tab Q4H PRN ORAL Severe Breakthru Pain (>7) 11/25/18 04:15 12/02/18 04:14 11/30/18 04:48 Paroxetine HCl (Paxil) 40 mg DAILY ORAL 11/24/18 09:00 12/18/18 08:59 11/30/18 09:30 Patient Own Medication (Patient's Own Med) 1 ea Q12H ORAL 11/28/18 18:00 12/28/18 17:59 11/30/18 09:29 Patient Own Medication (Patient's Own Med) 1 ea QHS ORAL 11/28/18 21:00 12/28/18 20:59 11/29/18 21:14 Patient Own Medication (Patient's Own Med) 1 ea QHS ORAL 11/28/18 21:00 12/28/18 20:59 11/29/18 21:14 Phosphorus (Phospha 250 Neutral) 500 mg THREE TIMES A DAY ORAL 11/24/18 09:00 12/22/18 17:59 11/30/18 09:30 Potassium Chloride (K-Dur) 40 meq DAILY ORAL 11/24/18 12:45 12/24/18 12:44 11/30/18 09:31 Tamsulosin HCl (Flomax) 0.4 mg BID ORAL 11/24/18 09:00 12/18/18 20:59 11/30/18 09:30 Temazepam (Restoril) 15 mg HSPRN PRN ORAL Insomnia 11/24/18 07:00 12/01/18 06:59 Terazosin HCl (Hytrin) 2 mg BEDTIME ORAL 11/28/18 21:00 12/28/18 20:59 11/29/18 21:14 Oliverio Rm MD November 30, 2018 12:11
--- NOTE | 2018-11-30 12:23 | NUR ---
[employer] SI: SEPSIS RECTAL BLEEDING T. 98.1 HR 97 RR 20 B/P 116/70 BUN 23 IS: CEFEPIME IV FLAGYL PO K-DUR PO HEPARIN SUBC HYTRIN PO MED/SURG STATUS
--- NOTE | 2018-11-30 12:45 | NUR ---
NURSE NOTES: Wound care provided for both heels and patient tolerated well.
--- NOTE | 2018-11-30 12:49 | NUR ---
*-* INSURANCE *-* UPDATED CLINICALS SINCE 11/22/18 HAVE BEEN FAXED TO: PREFERRED [employer] NCM: CARMITA P:[phone] F:[phone] X CLINICALS
[2018-11-30 16:00] VITALS: BP 103/67
--- NOTE | 2018-11-30 17:31 | Internal Med Progress Note ---
Subjective Date of Service: November 30, 2018 Physician Name Trey Whitaker Attending Physician Carlos Barragan MD Current Medications Medications (Trade) Dose Ordered Sig/Roman Route PRN Reason Start Time Stop Time Status Last Admin Dose Admin Acetaminophen (Tylenol) 650 mg Q4H PRN ORAL fever and pain 11/28/18 20:00 12/28/18 19:59 Baclofen (Lioresal) 10 mg THREE TIMES A DAY ORAL 11/24/18 09:00 12/18/18 08:59 11/30/18 17:15 Cefepime HCl 2 gm/ Dextrose 110 ml @ 220 mls/hr Q12HR@0300,1500 IV 11/24/18 15:00 12/01/18 14:59 11/30/18 14:46 Dextrose (Dextrose 50%) 25 ml Q30M PRN IV Hypoglycemia 11/24/18 07:00 12/24/18 06:59 Dextrose (Dextrose 50%) 50 ml Q30M PRN IV Hypoglycemia 11/24/18 07:15 12/24/18 07:14 Diltiazem HCl (Cardizem CD) 120 mg DAILY ORAL 11/24/18 09:00 12/23/18 08:59 11/30/18 09:30 Diltiazem HCl (Cardizem CD) 180 mg DAILY ORAL 11/24/18 09:00 12/23/18 08:59 11/30/18 09:31 Finasteride (Proscar) 5 mg DAILY ORAL 11/30/18 13:30 12/30/18 13:29 11/30/18 14:46 Heparin Sodium (Porcine) (Heparin 5000 units/ml) 5,000 units EVERY 12 HOURS SUBQ 11/24/18 09:00 12/18/18 08:59 11/30/18 09:33 Levothyroxine Sodium (Synthroid) 25 mcg DAILY@0630 ORAL 11/25/18 06:30 12/18/18 06:29 11/30/18 06:57 Loperamide HCl (Imodium) 4 mg Q6H PRN ORAL Diarrhea 11/24/18 12:30 12/20/18 12:29 11/29/18 10:44 Metoprolol Tartrate (Lopressor) 25 mg Q12HR ORAL 11/25/18 04:15 12/25/18 04:14 11/30/18 09:30 Metronidazole (Flagyl) 500 mg Q8HR ORAL 11/24/18 14:00 12/01/18 13:59 11/30/18 13:12 Mirtazapine (Remeron) 15 mg BEDTIME ORAL 11/24/18 21:00 12/18/18 20:59 11/29/18 21:13 Morphine Sulfate (Morphine Sulfate) 2 mg Q4H PRN IVP Moderate Pain (Pain Scale 4-6) 11/25/18 04:15 12/02/18 04:14 11/29/18 21:12 Ondansetron HCl (Zofran) 4 mg Q6H PRN IVP Nausea & Vomiting 11/24/18 07:00 12/17/18 06:59 11/30/18 06:07 Oxycodone/ Acetaminophen (Percocet 10/325) 1 tab Q4H PRN ORAL Severe Breakthru Pain (>7) 11/25/18 04:15 12/02/18 04:14 11/30/18 04:48 Paroxetine HCl (Paxil) 40 mg DAILY ORAL 11/24/18 09:00 12/18/18 08:59 11/30/18 09:30 Patient Own Medication (Patient's Own Med) 1 ea Q12H ORAL 11/28/18 18:00 12/28/18 17:59 11/30/18 17:15 Patient Own Medication (Patient's Own Med) 1 ea QHS ORAL 11/28/18 21:00 12/28/18 20:59 11/29/18 21:14 Patient Own Medication (Patient's Own Med) 1 ea QHS ORAL 11/28/18 21:00 12/28/18 20:59 11/29/18 21:14 Phosphorus (Phospha 250 Neutral) 500 mg THREE TIMES A DAY ORAL 11/24/18 09:00 12/22/18 17:59 11/30/18 17:15 Potassium Chloride (K-Dur) 40 meq DAILY ORAL 11/24/18 12:45 12/24/18 12:44 11/30/18 09:31 Tamsulosin HCl (Flomax) 0.4 mg BID ORAL 11/24/18 09:00 12/18/18 20:59 11/30/18 17:15 Temazepam (Restoril) 15 mg HSPRN PRN ORAL Insomnia 11/24/18 07:00 12/01/18 06:59 Terazosin HCl (Hytrin) 2 mg BEDTIME ORAL 11/28/18 21:00 12/28/18 20:59 11/29/18 21:14 Allergies: Coded Allergies: CODEINE (Unverified Allergy, Unknown, 11/28/17) EMTRICITABINE (Verified Allergy, Unknown, anxiousness, 08/31/18) SULFAMETHOXAZOLE (Unverified Allergy, Unknown, 10/27/17) TENOFOVIR (Verified Allergy, Unknown, anxiousness, 08/31/18) TRIMETHOPRIM (Unverified Allergy, Unknown, 10/27/17) ROS Limited/Unobtainable: No Constitutional: Reports: no symptoms HEENT: Reports: no symptoms Cardiovascular: Reports: no symptoms Respiratory: Reports: no symptoms Gastrointestinal/Abdominal: Reports: no symptoms Genitourinary: Reports: no symptoms 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: Reports: no symptoms Subjective 68 YO M admitted with constipation rectal bleeding. Cover for Int Med-Dr Barragan. Unable to void earlier-refused in and out cath Objective Last Vital Signs Date Time Temp Pulse Resp B/P (MAP) Pulse Ox O2 Delivery O2 Flow Rate FiO2 11/30/18 16:00 97.2 74 20 103/67 (79) 95 11/30/18 09:00 Room Air 11/24/18 08:05 21 Laboratory Tests Test 11/30/18 06:30 White Blood Count 9.0 K/UL (4.8-10.8) Red Blood Count 3.85 M/UL (4.70-6.10) L Hemoglobin 11.9 G/DL (14.2-18.0) L Hematocrit 35.4 % (42.0-52.0) L Mean Corpuscular Volume 92 FL (80-99) Mean Corpuscular Hemoglobin 31.0 PG (27.0-31.0) Mean Corpuscular Hemoglobin Concent 33.7 G/DL (32.0-36.0) Red Cell Distribution Width 12.2 % (11.6-14.8) Platelet Count 180 K/UL (150-450) Mean Platelet Volume 8.6 FL (6.5-10.1) Neutrophils (%) (Auto) 74.4 % (45.0-75.0) Lymphocytes (%) (Auto) 17.4 % (20.0-45.0) L Monocytes (%) (Auto) 7.0 % (1.0-10.0) Eosinophils (%) (Auto) 0.8 % (0.0-3.0) Basophils (%) (Auto) 0.4 % (0.0-2.0) Sodium Level 139 MMOL/L (136-145) Potassium Level 3.6 MMOL/L (3.5-5.1) Chloride Level 105 MMOL/L (98-107) Carbon Dioxide Level 23 MMOL/L (21-32) Anion Gap 11 mmol/L (5-15) Blood Urea Nitrogen 23 mg/dL (7-18) H Creatinine 1.2 MG/DL (0.55-1.30) Estimat Glomerular Filtration Rate 59.9 mL/min (>60) Glucose Level 111 MG/DL (74-106) H Calcium Level 8.7 MG/DL (8.5-10.1) Phosphorus Level 3.3 MG/DL (2.5-4.9) Magnesium Level 2.1 MG/DL (1.8-2.4) Microbiology Date/Time Source Procedure Growth Status 11/28/18 09:50 Urine,Clean Catch Urine Culture - Preliminary NO GROWTH AFTER 24 HOURS Resulted Intake and Output 11/29/18 11/30/18 19:00 07:00 Intake Total 350 ml 110 ml Output Total 800 ml 500 ml Balance -450 ml -390 ml Intake Oral 240 ml IV Total 110 ml 110 ml Output Urine Total 800 ml 500 ml Bladder Scan Volume Amount 151-200 ml Objective PHYSICAL EXAMINATION: GENERAL: The patient is a well-developed and well-nourished white male, in no apparent distress. HEENT: Eyes, pupils equal and responsive to light and accommodation. Extraocular movements are intact. NECK: Supple without lymphadenopathy. CHEST: Lungs are clear to auscultation bilaterally without wheezes or rales. CARDIOVASCULAR: Regular rhythm and rate. S1 and S2 are normal without murmurs, rubs, or gallops. ABDOMEN: Soft, nontender, and nondistended. Positive bowel sounds. No evidence of hepatosplenomegaly. Currently, no rebound or guarding noted. EXTREMITIES: Negative for clubbing, cyanosis, or edema. RECTAL/GENITAL: Refused. NEUROLOGIC: Cranial nerves II through XII are grossly intact without focal deficits. Motor strength is 5/5 bilaterally. Deep tendon reflexes are 2+ plantar. Assessment/Plan Assessment/Plan ASSESSMENT: This is a 68-year-old white male. 1. Left abdominal pain. 2. Constipation. 3. Rectal bleeding. 4. Left hydronephrosis. 5. Hypertension. 6. HIV. 7. Hypothyroidism. 8. History of rectal cancer. 9. Cerebrovascular disease. 10. Major depression. 11. Anxiety. 12. Benign prostatic hypertrophy. 13. Paroxysmal supraventricular tachycardia 14. Urine retention TREATMENT: 1. Constipation/abdominal pain/rectal hemorrhage. Gastroenterology consultation with Dr. Dejan Germain. S/P colonoscopy 09/18. C.Diff = neg 2. Right hydronephrosis. There is no definite stone seen. The patient may have passed a renal calculus. 3. Hypertension. Continue metoprolol and amlodipine as above. 4. HIV. Continue HAART per Infectious Disease. 5. Hypothyroidism. Continue Levoxyl as above. 6. History of rectal cancer. The patient is status post biopsy at [facility]. 7. Cerebrovascular disease. 8. Major depression. Continue Paxil as above. 9. Anxiety. 10. Benign prostatic hypertrophy. Continue Flomax and oxybutynin as above. 11. Await cardiology consult 12. Abx=flagyl and cefepime per ID 13. Discharge planning 14. Refused ledesma cath 15. Discharge planning Trey Whitaker MD November 30, 2018 17:31
--- NOTE | 2018-11-30 18:00 | NUR ---
NURSE NOTES: Patient stated that his IV cite hurts and asked me to remove it; iV access removed; patient couldn't let me try another one; patient stated that to try him later.
--- NOTE | 2018-11-30 18:30 | Consultation ---
DATE OF CONSULTATION: 11/30/2018 UROLOGY CONSULTATION CONSULTING PHYSICIAN: Dominik Osborne M.D. ATTENDING/REFERRING PHYSICIAN: Oliverio Rm M.D. CHIEF COMPLAINT/HISTORY OF PRESENT ILLNESS: I was asked by Dr. Rm to evaluate this unfortunate 68-year-old gentleman regarding history of ongoing urinary retention. Briefly, the patient has a history of multiple medical issues including HIV and rectal cancer, who presented to the hospital with a history of abdominal pain and rectal bleeding. He was recently here in September as well and at that time had a resistant strain of Clostridium difficile. The patient was admitted to evaluate his bleeding and rule out recurrent cancer. A Langford catheter has been placed, as the patient has been unable to urinate on his own. As such, I was asked to evaluate the patient. PAST MEDICAL HISTORY: 1. HIV. 2. Colorectal cancer. 3. Hypertension. 4. Stroke. 5. Depression. 6. Anxiety. PAST SURGICAL HISTORY: Rectal biopsy for colorectal cancer. MEDICATIONS: Please see the chart for current medications administration details. ALLERGIES: Include codeine, emtricitabine, sulfamethoxazole, tenofovir, and trimethoprim sulfate. SOCIAL HISTORY: Unremarkable for tobacco, alcohol, or drug use. The patient is and lives in a [facility]. FAMILY HISTORY: Noncontributory. REVIEW OF SYSTEMS: A 14-system review of systems essentially unremarkable outside what is described above. PHYSICAL EXAMINATION: GENERAL: The patient is an older white gentleman, awake and alert, in no obvious distress. HEENT: NC/AT. EOMI. Oropharynx clear. NECK: Supple. CHEST: Within normal limits. ABDOMEN: Soft, nontender, and nondistended. EXTREMITIES: Warm and well perfused. No cyanosis, clubbing, or edema. BACK: No CVA tenderness to percussion. NEUROLOGIC: Grossly nonfocal. LABORATORY DATA: White blood cell count 9.0, hematocrit 35.4, and platelets 180. Sodium 139, potassium 3.6, chloride 105, bicarbonate 23, BUN 23, and creatinine 1.2. Glucose 111. Calcium 8.7. Urinalysis, specific gravity 1.020, pH 6.0. Dip test notable for 3+ protein, positive nitrites, 1+ leukocyte esterase. Microanalysis - 2 to 4 white and red blood cells per high-power field, and few bacteria seen. Urine culture, no growth. Blood cultures, no growth. DIAGNOSTIC IMAGING: CT scan of the abdomen and pelvis reveals mild right hydronephrosis. There was no stone seen. There is a punctate calcification within the right distal ureter. There is mild to moderate stool. There was cyst to the left kidney. Bladder is unremarkable. Renal bladder ultrasound, interval resolution of right hydronephrosis compared to previous CT. Multiple cysts within the left kidney. ASSESSMENT AND PLAN: In summary, the patient is a 68-year-old gentleman with history of HIV and colorectal cancer, presenting with abdominal pain and rectal bleeding. His course has been complicated by urinary retention. Laboratory data is notable for some anemia. Urine culture is negative. The patient is receiving terazosin 2 mg in an effort to help him urinate. He is also on Flomax twice a day. I will add some finasteride to the patient's regimen in an effort to help him urinate better. We can give him a chance to urinate without a catheter in a few more days and try again. If he fails, he will need to go out with a catheter in place and follow up with urologist and his health plan for cystoscopy, possible urodynamics and other measures to evaluate the same. Thank you for allowing me to participate in the care of this unfortunate gentleman. Please do not hesitate to contact me for any questions that you may further have regarding his care. I will see him with you as needed. Dominik Osborne M.D. DR: WEST JOB#: [id number] CC:
[2018-11-30] MEDS: Loperamide 2mg cap ORAL PRN (19:26)
--- NOTE | 2018-11-30 19:30 | NUR ---
HAND-OFF: Report given to CHARLEY Lowe.
--- NOTE | 2018-11-30 19:51 | NUR ---
NURSE NOTES: Patient in bed, awake, alert. Patient having diarrhea, given Immodium. No acute respiratory distress noted. Patient has no IV access, will attempt at a later time. Bed is locked and is in the lowest position, call light within easy reach, bed alarm on. Will continue to monitor.
[2018-11-30 20:59] VITALS: BP 107/72
[2018-11-30] MEDS: Terazosin 1mg cap ORAL SCH (21:00)
[2018-11-30] MEDS: GENVOYA ORAL SCH (22:01)
[2018-12-01] MEDS: Morphine Sulfate 2mg/ml Inj(IV/IM USE ONLY) IVP PRN (00:32)
[2018-12-01 00:44] VITALS: BP 104/68
[2018-12-01] MEDS: Cefepime HCl 2 GM in D5W 110 ML IV SCH (02:59)
[2018-12-01 04:37] VITALS: BP 114/62
[2018-12-01] MEDS: metroNIDAZOLE 500mg tab ORAL SCH (05:17)
[2018-12-01] MEDS: Levothyroxine 25mcg tab ORAL SCH (05:47)
--- NOTE | 2018-12-01 06:30 | NUR ---
NURSE NOTES: PATIENT IN BED, NO DISTRESS, V/S STABLE.
--- NOTE | 2018-12-01 07:28 | NUR ---
HAND-OFF: Report given to SOLA SMITH RN.
--- NOTE | 2018-12-01 07:45 | NUR ---
NURSE NOTES: received pt from Jaqueline thomas with stable condition. pt is awake and alert x4, breathing regular and unlabored. denies pain at this time. kept clean and comfortable. call light within reach at all time. will continue to monitor
[2018-12-01 07:57] LABS: BASOPHILS % (AUTO) 0.7 % (0.0-2.0); EOSINOPHILS % (AUTO) 1.7 % (0.0-3.0); HEMATOCRIT 35.7 % (42.0-52.0); LYMPHOCYTES % (AUTO) 32.6 % (20.0-45.0); MEAN CORPUSCULAR VOLUME 93 FL (80-99); MONOCYTES % (AUTO) 7.6 % (1.0-10.0); NEUTROPHILS % (AUTO) 57.4 % (45.0-75.0); PLATELET COUNT 190 K/UL (150-450); RED BLOOD COUNT 3.86 M/UL (4.70-6.10); RED CELL DISTRIBUTION WIDTH 12.3 % (11.6-14.8); WHITE BLOOD COUNT 6.2 K/UL (4.8-10.8)
[2018-12-01 08:00] VITALS: BP 106/63
[2018-12-01 08:05] LABS: ANION GAP 9 mmol/L (5-15); BLOOD UREA NITROGEN 24 mg/dL (7-18); CALCIUM 8.6 MG/DL (8.5-10.1); CARBON DIOXIDE 25 MMOL/L (21-32); CHLORIDE 103 MMOL/L (98-107); CREATININE 1.4 MG/DL (0.55-1.30); POTASSIUM 3.5 MMOL/L (3.5-5.1); SODIUM 137 MMOL/L (136-145)
[2018-12-01] MEDS: dilTIAZem HCl CD 180mg cap ORAL SCH (08:16)
[2018-12-01] MEDS: dilTIAZem HCl CD 120mg cap ORAL SCH (08:16)
[2018-12-01] MEDS: Metoprolol 25mg tab ORAL SCH (08:17)
[2018-12-01] MEDS: Phospha 250 Neutral tab ORAL SCH ×2 (08:17→13:49)
[2018-12-01] MEDS: PARoxetine 20mg tab ORAL SCH (08:18)
[2018-12-01] MEDS: Tamsulosin 0.4mg cap ORAL SCH (08:18)
[2018-12-01] MEDS: Heparin 5000 units/ml inj SUBQ SCH (08:21)
[2018-12-01] MEDS: Loperamide 2mg cap ORAL PRN (08:25)
--- NOTE | 2018-12-01 09:07 | Infectious Diseases Prog Note ---
Assessment/Plan Assessment/Plan Assessment: Sepsis, unclear source- ?intraabdominal source- r/o bacteremia- ?kidney stone- US shows resolution of hydronephrosis -WBC scan neg -Renal US: Interval resolution of right hydronephrosis compared to CT from . 6 mm calcification posterior and lateral to the bladder right of midline. This is likely a phlebolith given presence of a right ureteral jet and absence of hydronephrosis. Multiple cysts within the left kidney -CT abd/p w/: Mild right hydroureteronephrosis. An obstructing stone is not definitely seen.However there is a tiny punctate calcification about 1 mm probably within the right distal ureter.Mild to moderate stool. Cysts within the left kidney. Small umbilical hernia containing fat -u/a neg -Bcx NTD -CXR No acute disease -amylase, lipase normal -Echo no vegetations seen Fever; SP ?source- ?rectal CA, r/o atypical infections, CD4 is over 300- less likelihood for opportunistic infections Mild leukocytosis, SP Diarrhea, -stool cx usual enteric thomas -Cdiff neg x of Cdiff 09/2018- no diarrhea currently - failed oral vancomycin; sp tx w/ Fidaxomicin --09/06 Cdiff toxin a/b +; repeat Cdiff neg x2 -09/06 SP Colonoscopy: proctitis -stool cx: normal thomas -Giardia ag, cryptosporidium neg Hx of UTI 08/2018 -u/a wbc 10-15, shirley neg, leuk +3; ucx >100K PROTEUS MIRABILIS ( I Levo; R Amp, bactrim, Cipro, Nitro; S Ceftriaxone) HIV/AIDS- on ARV -11/19 CD4 392 (17.4%) -09/2018 182 (10.1%), VL UD -11/2017 CD4 323 HARVINDER, improving ?Recent dx of Rectal CA at [facility]-obtain records hx of rectal CA CVA 2004 HTN Plan: -Cont ARV: Genvoya, Prezista, Intelence - DC Cefepime # 14 (abx d #15) and Flagyl #14 -11/22 SP IV Vancomycin #6 -11/17 SP Zosyn x1 -09/23 SP Fidaxomicin #10 -09/13/18 SP PO Vancomycin #8 -Monitor CBC/CMP, temperatures -aspiration precautions -f/u Brucella, Bartonella, Q fever, Rickettsia serologies -Obtain records at [facility] of recent rectal biopsy Subjective Allergies: Coded Allergies: CODEINE (Unverified Allergy, Unknown, 11/28/17) EMTRICITABINE (Verified Allergy, Unknown, anxiousness, 08/31/18) SULFAMETHOXAZOLE (Unverified Allergy, Unknown, 10/27/17) TENOFOVIR (Verified Allergy, Unknown, anxiousness, 08/31/18) TRIMETHOPRIM (Unverified Allergy, Unknown, 10/27/17) Subjective Afebrile Objective Vital Signs Last 24 Hour Vital Signs Date Time Temp Pulse Resp B/P (MAP) Pulse Ox O2 Delivery O2 Flow Rate FiO2 12/01/18 08:17 75 106/63 12/01/18 08:16 75 106/63 12/01/18 08:16 75 106/63 12/01/18 04:37 97.8 81 20 114/62 (79) 98 12/01/18 04:03 98.6 12/01/18 01:02 98.6 12/01/18 00:44 98.6 70 20 104/68 (80) 97 11/30/18 22:56 Room Air 11/30/18 22:01 75 107/72 11/30/18 20:59 98.1 75 20 107/72 (84) 96 11/30/18 16:00 97.2 74 20 103/67 (79) 95 11/30/18 12:00 97.6 90 20 115/75 (88) 95 11/30/18 09:31 97 116/70 11/30/18 09:30 97 116/70 11/30/18 09:30 97 116/70 Height (Feet): 5 Height (Inches): 5.00 Weight (Pounds): 145 HEENT: mucous membranes moist Respiratory/Chest: lungs clear Cardiovascular: normal rate Abdomen: soft, non tender Microbiology Date/Time Source Procedure Growth Status 11/28/18 09:50 Urine,Clean Catch Urine Culture - Final NO GROWTH AFTER 48 HOURS Complete Laboratory Tests Test 12/01/18 07:26 White Blood Count 6.2 K/UL (4.8-10.8) Red Blood Count 3.86 M/UL (4.70-6.10) L Hemoglobin 12.0 G/DL (14.2-18.0) L Hematocrit 35.7 % (42.0-52.0) L Mean Corpuscular Volume 93 FL (80-99) Mean Corpuscular Hemoglobin 31.0 PG (27.0-31.0) Mean Corpuscular Hemoglobin Concent 33.5 G/DL (32.0-36.0) Red Cell Distribution Width 12.3 % (11.6-14.8) Platelet Count 190 K/UL (150-450) Mean Platelet Volume 9.1 FL (6.5-10.1) Neutrophils (%) (Auto) 57.4 % (45.0-75.0) Lymphocytes (%) (Auto) 32.6 % (20.0-45.0) Monocytes (%) (Auto) 7.6 % (1.0-10.0) Eosinophils (%) (Auto) 1.7 % (0.0-3.0) Basophils (%) (Auto) 0.7 % (0.0-2.0) Sodium Level 137 MMOL/L (136-145) Potassium Level 3.5 MMOL/L (3.5-5.1) Chloride Level 103 MMOL/L (98-107) Carbon Dioxide Level 25 MMOL/L (21-32) Anion Gap 9 mmol/L (5-15) Blood Urea Nitrogen 24 mg/dL (7-18) H Creatinine 1.4 MG/DL (0.55-1.30) H Estimat Glomerular Filtration Rate 50.1 mL/min (>60) Glucose Level 100 MG/DL (74-106) Calcium Level 8.6 MG/DL (8.5-10.1) Current Medications Medications (Trade) Dose Ordered Sig/Roman Route PRN Reason Start Time Stop Time Status Last Admin Dose Admin Acetaminophen (Tylenol) 650 mg Q4H PRN ORAL fever and pain 11/28/18 20:00 12/28/18 19:59 Baclofen (Lioresal) 10 mg THREE TIMES A DAY ORAL 11/24/18 09:00 12/18/18 08:59 12/01/18 08:18 Cefepime HCl 2 gm/ Dextrose 110 ml @ 220 mls/hr Q12HR@0300,1500 IV 11/24/18 15:00 12/01/18 14:59 12/01/18 02:59 Dextrose (Dextrose 50%) 25 ml Q30M PRN IV Hypoglycemia 11/24/18 07:00 12/24/18 06:59 Dextrose (Dextrose 50%) 50 ml Q30M PRN IV Hypoglycemia 11/24/18 07:15 12/24/18 07:14 Diltiazem HCl (Cardizem CD) 120 mg DAILY ORAL 11/24/18 09:00 12/23/18 08:59 11/30/18 09:30 Diltiazem HCl (Cardizem CD) 180 mg DAILY ORAL 11/24/18 09:00 12/23/18 08:59 11/30/18 09:31 Finasteride (Proscar) 5 mg DAILY ORAL 11/30/18 13:30 12/30/18 13:29 12/01/18 08:17 Heparin Sodium (Porcine) (Heparin 5000 units/ml) 5,000 units EVERY 12 HOURS SUBQ 11/24/18 09:00 12/18/18 08:59 12/01/18 08:21 Levothyroxine Sodium (Synthroid) 25 mcg DAILY@0630 ORAL 11/25/18 06:30 12/18/18 06:29 12/01/18 05:47 Loperamide HCl (Imodium) 4 mg Q6H PRN ORAL Diarrhea 11/24/18 12:30 12/20/18 12:29 12/01/18 08:25 Metoprolol Tartrate (Lopressor) 25 mg Q12HR ORAL 11/25/18 04:15 12/25/18 04:14 11/30/18 22:01 Metronidazole (Flagyl) 500 mg Q8HR ORAL 11/24/18 14:00 12/01/18 13:59 12/01/18 05:17 Mirtazapine (Remeron) 15 mg BEDTIME ORAL 11/24/18 21:00 12/18/18 20:59 11/30/18 22:01 Morphine Sulfate (Morphine Sulfate) 2 mg Q4H PRN IVP Moderate Pain (Pain Scale 4-6) 11/25/18 04:15 12/02/18 04:14 12/01/18 00:32 Ondansetron HCl (Zofran) 4 mg Q6H PRN IVP Nausea & Vomiting 11/24/18 07:00 12/17/18 06:59 11/30/18 06:07 Oxycodone/ Acetaminophen (Percocet 10/325) 1 tab Q4H PRN ORAL Severe Breakthru Pain (>7) 11/25/18 04:15 12/02/18 04:14 12/01/18 03:33 Paroxetine HCl (Paxil) 40 mg DAILY ORAL 11/24/18 09:00 12/18/18 08:59 12/01/18 08:18 Patient Own Medication (Patient's Own Med) 1 ea Q12H ORAL 12/01/18 09:00 12/31/18 08:59 12/01/18 08:18 Patient Own Medication (Patient's Own Med) 1 ea QHS ORAL 11/28/18 21:00 12/28/18 20:59 11/30/18 22:01 Patient Own Medication (Patient's Own Med) 1 ea QHS ORAL 11/28/18 21:00 12/28/18 20:59 11/30/18 22:01 Phosphorus (Phospha 250 Neutral) 500 mg THREE TIMES A DAY ORAL 11/24/18 09:00 12/22/18 17:59 12/01/18 08:17 Potassium Chloride (K-Dur) 40 meq DAILY ORAL 11/24/18 12:45 12/24/18 12:44 12/01/18 08:18 Tamsulosin HCl (Flomax) 0.4 mg BID ORAL 11/24/18 09:00 12/18/18 20:59 12/01/18 08:18 Terazosin HCl (Hytrin) 2 mg BEDTIME ORAL 11/28/18 21:00 12/28/18 20:59 11/29/18 21:14 José Yan MD December 01, 2018 09:07
[2018-12-01 09:29] VITALS: BP 106/63
--- NOTE | 2018-12-01 10:00 | GI Progress Note ---
Assessment/Plan Problems: (1) Severe protein-calorie malnutrition ICD Codes: E43 - Unspecified severe protein-calorie malnutrition SNOMED: 252680237 (2) History of rectal cancer ICD Codes: Z85.048 - Personal history of other malignant neoplasm of rectum, rectosigmoid junction, and anus SNOMED: 683030700 (3) Intractable abdominal pain ICD Codes: R10.9 - Unspecified abdominal pain SNOMED: 37563287, 657343906 Status: stable Status Narrative Discussed with Dr. Germain. Assessment/Plan Status post colonoscopy in September 2018 1. Focal proctitis suspicious for C. diff versus ulcerative colitis, status post biopsy. 2. Status post biopsy of the right and left colon to evaluate microscopic colitis. >> negative Rectal bleeding resolved Stable H&H C. difficile negative x2 Stool culture reviewed, gram-negative bacillus Persistent diarrhea resolved Advance diet as tolerated bowel regimen, hold stool softeners and laxatives Lomotil PRN for persistent diarrhea monitor H&H fu ID recs Electrolyte correction Follow labs PPI Discharge planning The patient was seen and examined at bedside and all new and available data was reviewed in the patients chart. I agree with the above findings, impression and plan. (Patient seen earlier today. Signature stamp does not reflect patient encounter time.). - Dejan Germain MD Subjective Subjective Rectal bleeding resolved Diarrhea improved with medication Urinary retention Objective Last 24 Hour Vital Signs Date Time Temp Pulse Resp B/P (MAP) Pulse Ox O2 Delivery O2 Flow Rate FiO2 12/01/18 09:29 97.8 81 20 106/63 (77) 98 12/01/18 09:00 Room Air 12/01/18 08:17 75 106/63 12/01/18 08:16 75 106/63 12/01/18 08:16 75 106/63 12/01/18 04:37 97.8 81 20 114/62 (79) 98 12/01/18 04:03 98.6 12/01/18 01:02 98.6 12/01/18 00:44 98.6 70 20 104/68 (80) 97 11/30/18 22:56 Room Air 11/30/18 22:01 75 107/72 11/30/18 20:59 98.1 75 20 107/72 (84) 96 11/30/18 16:00 97.2 74 20 103/67 (79) 95 5/30/19 12:00 97.6 90 20 115/75 (88) 95 Intake and Output 11/30/18 12/01/18 19:00 07:00 Intake Total 360 ml 110 ml Output Total 1000 ml 400 ml Balance -640 ml -290 ml Intake Oral 250 ml IV Total 110 ml 110 ml Output Urine Total 1000 ml 400 ml # Bowel Movements 3 3 Laboratory Tests Test 12/01/18 07:26 White Blood Count 6.2 K/UL (4.8-10.8) Red Blood Count 3.86 M/UL (4.70-6.10) L Hemoglobin 12.0 G/DL (14.2-18.0) L Hematocrit 35.7 % (42.0-52.0) L Mean Corpuscular Volume 93 FL (80-99) Mean Corpuscular Hemoglobin 31.0 PG (27.0-31.0) Mean Corpuscular Hemoglobin Concent 33.5 G/DL (32.0-36.0) Red Cell Distribution Width 12.3 % (11.6-14.8) Platelet Count 190 K/UL (150-450) Mean Platelet Volume 9.1 FL (6.5-10.1) Neutrophils (%) (Auto) 57.4 % (45.0-75.0) Lymphocytes (%) (Auto) 32.6 % (20.0-45.0) Monocytes (%) (Auto) 7.6 % (1.0-10.0) Eosinophils (%) (Auto) 1.7 % (0.0-3.0) Basophils (%) (Auto) 0.7 % (0.0-2.0) Sodium Level 137 MMOL/L (136-145) Potassium Level 3.5 MMOL/L (3.5-5.1) Chloride Level 103 MMOL/L (98-107) Carbon Dioxide Level 25 MMOL/L (21-32) Anion Gap 9 mmol/L (5-15) Blood Urea Nitrogen 24 mg/dL (7-18) H Creatinine 1.4 MG/DL (0.55-1.30) H Estimat Glomerular Filtration Rate 50.1 mL/min (>60) Glucose Level 100 MG/DL (74-106) Calcium Level 8.6 MG/DL (8.5-10.1) Height (Feet): 5 Height (Inches): 5.00 Weight (Pounds): 145 General Appearance: WD/WN, no apparent distress, alert Cardiovascular: normal rate Respiratory/Chest: normal breath sounds, no respiratory distress Abdominal Exam: normal bowel sounds, non tender, soft Extremities: non-tender Jasen Brink NP December 01, 2018 10:00
--- NOTE | 2018-12-01 11:49 | Cardiac Electrophysiology PN ---
Assessment/Plan Assessment/Plan 1. Recurrent episodes of SVT. EF of 60%. EPS and ablation as out patient S/P multiple doses of IV metoprolol to terminate the arrhythmia. No recurrence on Cardizem CD 300 daily and metoprolol 25 bid. 2. Hypertension. On Cardizem and Metoprolol 3. HIV and AIDS. 4. Fever and Sepsis, on IV antibiotic. 5. Rectal bleeding. FU by Dr. Germain due to rectal cancer. 6. Abdominal pain. 7. Urinary retention. Now has Langford, Hytrin and Proscar ORALIA RN Subjective Subjective No CP or SOB. Still has Langford on NMB. Objective Last 24 Hour Vital Signs Date Time Temp Pulse Resp B/P (MAP) Pulse Ox O2 Delivery O2 Flow Rate FiO2 12/01/18 09:29 97.8 81 20 106/63 (77) 98 12/01/18 09:00 Room Air 12/01/18 08:17 75 106/63 12/01/18 08:16 75 106/63 12/01/18 08:16 75 106/63 12/01/18 08:00 97.7 75 20 106/63 (77) 98 12/01/18 04:37 97.8 81 20 114/62 (79) 98 12/01/18 04:03 98.6 12/01/18 01:02 98.6 12/01/18 00:44 98.6 70 20 104/68 (80) 97 11/30/18 22:56 Room Air 11/30/18 22:01 75 107/72 11/30/18 20:59 98.1 75 20 107/72 (84) 96 11/30/18 16:00 97.2 74 20 103/67 (79) 95 11/30/18 12:00 97.6 90 20 115/75 (88) 95 Intake and Output 11/30/18 12/01/18 19:00 07:00 Intake Total 360 ml 110 ml Output Total 1000 ml 400 ml Balance -640 ml -290 ml Intake Oral 250 ml IV Total 110 ml 110 ml Output Urine Total 1000 ml 400 ml # Bowel Movements 3 3 Laboratory Tests Test 12/01/18 07:26 White Blood Count 6.2 K/UL (4.8-10.8) Red Blood Count 3.86 M/UL (4.70-6.10) L Hemoglobin 12.0 G/DL (14.2-18.0) L Hematocrit 35.7 % (42.0-52.0) L Mean Corpuscular Volume 93 FL (80-99) Mean Corpuscular Hemoglobin 31.0 PG (27.0-31.0) Mean Corpuscular Hemoglobin Concent 33.5 G/DL (32.0-36.0) Red Cell Distribution Width 12.3 % (11.6-14.8) Platelet Count 190 K/UL (150-450) Mean Platelet Volume 9.1 FL (6.5-10.1) Neutrophils (%) (Auto) 57.4 % (45.0-75.0) Lymphocytes (%) (Auto) 32.6 % (20.0-45.0) Monocytes (%) (Auto) 7.6 % (1.0-10.0) Eosinophils (%) (Auto) 1.7 % (0.0-3.0) Basophils (%) (Auto) 0.7 % (0.0-2.0) Sodium Level 137 MMOL/L (136-145) Potassium Level 3.5 MMOL/L (3.5-5.1) Chloride Level 103 MMOL/L (98-107) Carbon Dioxide Level 25 MMOL/L (21-32) Anion Gap 9 mmol/L (5-15) Blood Urea Nitrogen 24 mg/dL (7-18) H Creatinine 1.4 MG/DL (0.55-1.30) H Estimat Glomerular Filtration Rate 50.1 mL/min (>60) Glucose Level 100 MG/DL (74-106) Calcium Level 8.6 MG/DL (8.5-10.1) Objective HEAD AND NECK: No JVD. LUNGS: Clear. CARDIOVASCULAR: Regular S1 and S2 with no gallop or murmur. ABDOMEN: Soft. Has Langford catheter in EXTREMITIES: No pitting edema. Abel Mendez MD December 01, 2018 11:49
[2018-12-01 12:00] VITALS: BP 108/74
--- NOTE | 2018-12-01 12:01 | NUR ---
CASE MANAGEMENT:REVIEW 12/01/18 SI: SEPSIS. C-DIFF COLITIS. HIV URINARY RETENTION 97.8 81 20 106/63 98% ON RA H/H-12.0/35.7 BUN+24 CR+1.4 IS: PROSCAR PO QD HYTRIN PO QHS SYNTHROID PO QD LOPRESSOR PO Q12 PERCOCET PO Q4HRS PRN K-DUR PO QD CARDIZEM PO QD : MED.SURG STATUS 4 EAST DCP: FROM [facility] PLAN: SEEN BY UROLOGIST, DR NOVA START FINASTERIDE TO HELP WITH URINATION
--- NOTE | 2018-12-01 12:31 | Nephrology Progress Note ---
Assessment/Plan Problem List: (1) Urinary retention Assessment: had 600 cc retention today- straught cathed (2) Sepsis (3) Fecal impaction (4) Hypokalemia (5) Hypothyroidism (6) HIV (human immunodeficiency virus infection) (7) Anemia Assessment Sepsis Possible PNA Acute kidney injury, possibly due to mild hydroureteronephrosis seen on CT scan -resolved Rectal CA, recently diagnosed HIV/AIDS Fecal retention History of CVA Hypertension Hypothyroidism Depression Hypokalemia Anemia Plan Urology note appretiated was refusing Ledesma yesterday, but has ledesma now monitor for voiding- ledesma to leg bag if not void in 6-8 hours- refused before K , Phos supplement as needed stool softner Reglan as needed Gastric support Monitor lytes DC IV fluids per cardiology per orders Subjective ROS Limited/Unobtainable: No Constitutional: Reports: malaise, weakness Objective Objective Last 24 Hour Vital Signs Date Time Temp Pulse Resp B/P (MAP) Pulse Ox O2 Delivery O2 Flow Rate FiO2 12/01/18 12:00 98.0 72 20 108/74 (85) 96 12/01/18 09:29 97.8 81 20 106/63 (77) 98 12/01/18 09:00 Room Air 12/01/18 08:17 75 106/63 12/01/18 08:16 75 106/63 12/01/18 08:16 75 106/63 12/01/18 08:00 97.7 75 20 106/63 (77) 98 12/01/18 04:37 97.8 81 20 114/62 (79) 98 12/01/18 04:03 98.6 12/01/18 01:02 98.6 12/01/18 00:44 98.6 70 20 104/68 (80) 97 11/30/18 22:56 Room Air 11/30/18 22:01 75 107/72 11/30/18 20:59 98.1 75 20 107/72 (84) 96 11/30/18 16:00 97.2 74 20 103/67 (79) 95 Intake and Output 11/30/18 12/01/18 19:00 07:00 Intake Total 360 ml 110 ml Output Total 1000 ml 400 ml Balance -640 ml -290 ml Intake Oral 250 ml IV Total 110 ml 110 ml Output Urine Total 1000 ml 400 ml # Bowel Movements 3 3 Laboratory Tests 5/31/19 07:26: White Blood Count 6.2, Red Blood Count 3.86L, Hemoglobin 12.0L, Hematocrit 35.7L , Mean Corpuscular Volume 93, Mean Corpuscular Hemoglobin 31.0, Mean Corpuscular Hemoglobin Concent 33.5, Red Cell Distribution Width 12.3, Platelet Count 190, Mean Platelet Volume 9.1, Neutrophils (%) (Auto) 57.4, Lymphocytes (% ) (Auto) 32.6, Monocytes (%) (Auto) 7.6, Eosinophils (%) (Auto) 1.7, Basophils ( %) (Auto) 0.7, Sodium Level 137, Potassium Level 3.5, Chloride Level 103, Carbon Dioxide Level 25, Anion Gap 9, Blood Urea Nitrogen 24H, Creatinine 1.4H, Estimat Glomerular Filtration Rate 50.1, Glucose Level 100, Calcium Level 8.6 Height (Feet): 5 Height (Inches): 5.00 Weight (Pounds): 145 General Appearance: no apparent distress Objective no change Hayden Andres MD December 01, 2018 12:31
[2018-12-01] MEDS ORDERED: FLOMAX0.4 MG ORAL (12:51)
[2018-12-01] MEDS ORDERED: FINASTERIDE5 MG ORAL (12:51)
--- NOTE | 2018-12-01 12:55 | Pulmonology Progress Note ---
Assessment/Plan Problems: (1) Sepsis (2) ATN (acute tubular necrosis) (3) Urinary retention (4) Intractable abdominal pain (5) Diarrhea (6) History of rectal cancer (7) C. difficile colitis (8) Severe protein-calorie malnutrition (9) HIV (human immunodeficiency virus infection) Assessment/Plan Urology recommendation appreciated finished abx course doing better indium scan in process CD4 count noted, it is 17 improving dc home with Langford Subjective ROS Limited/Unobtainable: No Constitutional: Reports: no symptoms HEENT: Repors: no symptoms Allergies: Coded Allergies: CODEINE (Unverified Allergy, Unknown, 11/28/17) EMTRICITABINE (Verified Allergy, Unknown, anxiousness, 08/31/18) SULFAMETHOXAZOLE (Unverified Allergy, Unknown, 10/27/17) TENOFOVIR (Verified Allergy, Unknown, anxiousness, 08/31/18) TRIMETHOPRIM (Unverified Allergy, Unknown, 10/27/17) Objective Last 24 Hour Vital Signs Date Time Temp Pulse Resp B/P (MAP) Pulse Ox O2 Delivery O2 Flow Rate FiO2 12/01/18 12:00 98.0 72 20 108/74 (85) 96 12/01/18 09:29 97.8 81 20 106/63 (77) 98 12/01/18 09:00 Room Air 12/01/18 08:17 75 106/63 12/01/18 08:16 75 106/63 12/01/18 08:16 75 106/63 12/01/18 08:00 97.7 75 20 106/63 (77) 98 12/01/18 04:37 97.8 81 20 114/62 (79) 98 12/01/18 04:03 98.6 12/01/18 01:02 98.6 12/01/18 00:44 98.6 70 20 104/68 (80) 97 11/30/18 22:56 Room Air 11/30/18 22:01 75 107/72 11/30/18 20:59 98.1 75 20 107/72 (84) 96 11/30/18 16:00 97.2 74 20 103/67 (79) 95 Intake and Output 11/30/18 12/01/18 19:00 07:00 Intake Total 360 ml 110 ml Output Total 1000 ml 400 ml Balance -640 ml -290 ml Intake Oral 250 ml IV Total 110 ml 110 ml Output Urine Total 1000 ml 400 ml # Bowel Movements 3 3 Objective General Appearance: cachetic HEENT: normocephalic, atraumatic Respiratory/Chest: chest wall non-tender, lungs clear Cardiovascular: normal peripheral pulses, normal rate Abdomen: normal bowel sounds, no organomegaly Extremities: no cyanosis Skin: no lesions Laboratory Tests 12/01/18 07:26: White Blood Count 6.2, Red Blood Count 3.86L, Hemoglobin 12.0L, Hematocrit 35.7L , Mean Corpuscular Volume 93, Mean Corpuscular Hemoglobin 31.0, Mean Corpuscular Hemoglobin Concent 33.5, Red Cell Distribution Width 12.3, Platelet Count 190, Mean Platelet Volume 9.1, Neutrophils (%) (Auto) 57.4, Lymphocytes (% ) (Auto) 32.6, Monocytes (%) (Auto) 7.6, Eosinophils (%) (Auto) 1.7, Basophils ( %) (Auto) 0.7, Sodium Level 137, Potassium Level 3.5, Chloride Level 103, Carbon Dioxide Level 25, Anion Gap 9, Blood Urea Nitrogen 24H, Creatinine 1.4H, Estimat Glomerular Filtration Rate 50.1, Glucose Level 100, Calcium Level 8.6 Current Medications Medications (Trade) Dose Ordered Sig/Roman Route PRN Reason Start Time Stop Time Status Last Admin Dose Admin Acetaminophen (Tylenol) 650 mg Q4H PRN ORAL fever and pain 11/28/18 20:00 12/28/18 19:59 Baclofen (Lioresal) 10 mg THREE TIMES A DAY ORAL 11/24/18 09:00 12/18/18 08:59 12/01/18 08:18 Dextrose (Dextrose 50%) 25 ml Q30M PRN IV Hypoglycemia 11/24/18 07:00 12/24/18 06:59 Dextrose (Dextrose 50%) 50 ml Q30M PRN IV Hypoglycemia 11/24/18 07:15 12/24/18 07:14 Diltiazem HCl (Cardizem CD) 120 mg DAILY ORAL 11/24/18 09:00 12/23/18 08:59 11/30/18 09:30 Diltiazem HCl (Cardizem CD) 180 mg DAILY ORAL 11/24/18 09:00 12/23/18 08:59 11/30/18 09:31 Finasteride (Proscar) 5 mg DAILY ORAL 11/30/18 13:30 12/30/18 13:29 12/01/18 08:17 Heparin Sodium (Porcine) (Heparin 5000 units/ml) 5,000 units EVERY 12 HOURS SUBQ 11/24/18 09:00 12/18/18 08:59 12/01/18 08:21 Levothyroxine Sodium (Synthroid) 25 mcg DAILY@0630 ORAL 11/25/18 06:30 12/18/18 06:29 12/01/18 05:47 Loperamide HCl (Imodium) 4 mg Q6H PRN ORAL Diarrhea 11/24/18 12:30 12/20/18 12:29 12/01/18 08:25 Metoprolol Tartrate (Lopressor) 25 mg Q12HR ORAL 11/25/18 04:15 12/25/18 04:14 11/30/18 22:01 Mirtazapine (Remeron) 15 mg BEDTIME ORAL 11/24/18 21:00 12/18/18 20:59 11/30/18 22:01 Morphine Sulfate (Morphine Sulfate) 2 mg Q4H PRN IVP Moderate Pain (Pain Scale 4-6) 11/25/18 04:15 12/02/18 04:14 12/01/18 00:32 Ondansetron HCl (Zofran) 4 mg Q6H PRN IVP Nausea & Vomiting 11/24/18 07:00 12/17/18 06:59 11/30/18 06:07 Oxycodone/ Acetaminophen (Percocet 10/325) 1 tab Q4H PRN ORAL Severe Breakthru Pain (>7) 11/25/18 04:15 12/02/18 04:14 12/01/18 03:33 Paroxetine HCl (Paxil) 40 mg DAILY ORAL 11/24/18 09:00 12/18/18 08:59 12/01/18 08:18 Patient Own Medication (Patient's Own Med) 1 ea Q12H ORAL 12/01/18 09:00 12/31/18 08:59 12/01/18 08:18 Patient Own Medication (Patient's Own Med) 1 ea QHS ORAL 11/28/18 21:00 12/28/18 20:59 11/30/18 22:01 Patient Own Medication (Patient's Own Med) 1 ea QHS ORAL 11/28/18 21:00 12/28/18 20:59 11/30/18 22:01 Phosphorus (Phospha 250 Neutral) 500 mg THREE TIMES A DAY ORAL 11/24/18 09:00 12/22/18 17:59 12/01/18 08:17 Potassium Chloride (K-Dur) 40 meq DAILY ORAL 11/24/18 12:45 12/24/18 12:44 12/01/18 08:18 Tamsulosin HCl (Flomax) 0.4 mg BID ORAL 11/24/18 09:00 12/18/18 20:59 12/01/18 08:18 Terazosin HCl (Hytrin) 2 mg BEDTIME ORAL 11/28/18 21:00 12/28/18 20:59 11/29/18 21:14 Oliverio Rm MD December 01, 2018 12:55
--- NOTE | 2018-12-01 18:10 | NUR ---
NURSE NOTES: pt discharged to home picked up by ambulance with stable condition. all discharge instruction given to pt and verbalized understanding. Iv heplock removed and covered with gauze and taped. pt will be discharged with ledesma catheter in placed per Dr. fernández. all HIV home meds and new medication refill given to pt. belongings checked and sent with pt as well. pt denies any pain. vss.
--- NOTE | 2018-12-01 19:28 | Internal Med Progress Note ---
Subjective Date of Service: December 01, 2018 Physician Name Trey Whitaker Attending Physician Carlos Barragan MD Allergies: Coded Allergies: CODEINE (Unverified Allergy, Unknown, 11/28/17) EMTRICITABINE (Verified Allergy, Unknown, anxiousness, 08/31/18) SULFAMETHOXAZOLE (Unverified Allergy, Unknown, 10/27/17) TENOFOVIR (Verified Allergy, Unknown, anxiousness, 08/31/18) TRIMETHOPRIM (Unverified Allergy, Unknown, 10/27/17) ROS Limited/Unobtainable: No Constitutional: Reports: no symptoms HEENT: Reports: no symptoms Cardiovascular: Reports: no symptoms Respiratory: Reports: no symptoms Gastrointestinal/Abdominal: Reports: no symptoms Genitourinary: Reports: no symptoms 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: Reports: no symptoms Subjective 68 YO M admitted with constipation rectal bleeding. Cover for Int Med-Dr Barragan. Unable to void-ledesma placed Objective Last Vital Signs Date Time Temp Pulse Resp B/P (MAP) Pulse Ox O2 Delivery O2 Flow Rate FiO2 12/01/18 12:00 98.0 72 20 108/74 (85) 96 12/01/18 09:00 Room Air 11/24/18 08:05 21 Laboratory Tests Test 12/01/18 07:26 White Blood Count 6.2 K/UL (4.8-10.8) Red Blood Count 3.86 M/UL (4.70-6.10) L Hemoglobin 12.0 G/DL (14.2-18.0) L Hematocrit 35.7 % (42.0-52.0) L Mean Corpuscular Volume 93 FL (80-99) Mean Corpuscular Hemoglobin 31.0 PG (27.0-31.0) Mean Corpuscular Hemoglobin Concent 33.5 G/DL (32.0-36.0) Red Cell Distribution Width 12.3 % (11.6-14.8) Platelet Count 190 K/UL (150-450) Mean Platelet Volume 9.1 FL (6.5-10.1) Neutrophils (%) (Auto) 57.4 % (45.0-75.0) Lymphocytes (%) (Auto) 32.6 % (20.0-45.0) Monocytes (%) (Auto) 7.6 % (1.0-10.0) Eosinophils (%) (Auto) 1.7 % (0.0-3.0) Basophils (%) (Auto) 0.7 % (0.0-2.0) Sodium Level 137 MMOL/L (136-145) Potassium Level 3.5 MMOL/L (3.5-5.1) Chloride Level 103 MMOL/L (98-107) Carbon Dioxide Level 25 MMOL/L (21-32) Anion Gap 9 mmol/L (5-15) Blood Urea Nitrogen 24 mg/dL (7-18) H Creatinine 1.4 MG/DL (0.55-1.30) H Estimat Glomerular Filtration Rate 50.1 mL/min (>60) Glucose Level 100 MG/DL (74-106) Calcium Level 8.6 MG/DL (8.5-10.1) Intake and Output 11/30/18 12/01/18 19:00 07:00 Intake Total 360 ml 110 ml Output Total 1000 ml 400 ml Balance -640 ml -290 ml Intake Oral 250 ml IV Total 110 ml 110 ml Output Urine Total 1000 ml 400 ml # Bowel Movements 3 3 Objective PHYSICAL EXAMINATION: GENERAL: The patient is a well-developed and well-nourished white male, in no apparent distress. HEENT: Eyes, pupils equal and responsive to light and accommodation. Extraocular movements are intact. NECK: Supple without lymphadenopathy. CHEST: Lungs are clear to auscultation bilaterally without wheezes or rales. CARDIOVASCULAR: Regular rhythm and rate. S1 and S2 are normal without murmurs, rubs, or gallops. ABDOMEN: Soft, nontender, and nondistended. Positive bowel sounds. No evidence of hepatosplenomegaly. Currently, no rebound or guarding noted. EXTREMITIES: Negative for clubbing, cyanosis, or edema. RECTAL/GENITAL: Refused. NEUROLOGIC: Cranial nerves II through XII are grossly intact without focal deficits. Motor strength is 5/5 bilaterally. Deep tendon reflexes are 2+ plantar. Assessment/Plan Assessment/Plan ASSESSMENT: This is a 68-year-old white male. 1. Left abdominal pain. 2. Constipation. 3. Rectal bleeding. 4. Left hydronephrosis. 5. Hypertension. 6. HIV. 7. Hypothyroidism. 8. History of rectal cancer. 9. Cerebrovascular disease. 10. Major depression. 11. Anxiety. 12. Benign prostatic hypertrophy. 13. Paroxysmal supraventricular tachycardia 14. Urine retention TREATMENT: 1. Constipation/abdominal pain/rectal hemorrhage. Gastroenterology consultation with Dr. Dejan Germain. S/P colonoscopy 09/18. C.Diff = neg 2. Right hydronephrosis. There is no definite stone seen. The patient may have passed a renal calculus. 3. Hypertension. Continue metoprolol and amlodipine as above. 4. HIV. Continue HAART per Infectious Disease. 5. Hypothyroidism. Continue Levoxyl as above. 6. History of rectal cancer. The patient is status post biopsy at [facility]. 7. Cerebrovascular disease. 8. Major depression. Continue Paxil as above. 9. Anxiety. 10. Benign prostatic hypertrophy. Continue Flomax and oxybutynin as above. 11. Await cardiology consult 12. Abx=flagyl and cefepime per ID 13. ledesma cath in place; start finasteride per urology 14. Discharge to [facility] today Trey Whitaker MD December 01, 2018 19:28
--- NOTE | 2018-12-02 12:58 | Discharge Summary ---
Discharge Summary Discharge Summary _ DATE OF ADMISSION: 11/17/2018 DATE OF DISCHARGE: 12/01/2018 DISCHARGED BY: Dr. Barragan REASON FOR ADMISSION: 68 years old male whose past medical history of hypertension, rectal cancer, history of CVA (2004), HIV ( diagnosed in 1984), recent UTI in August 2018, C. difficile colitis in September 2018, presented to emergency department from transitional facility with two days of intermittent abdominal pain, fever, chills, decreased bowel movement and rectal bleeding for one day. Patient reported recent rectal biopsy done at [facility]. Upon evaluation patient had fever and was tachycardic. Laboratory work-up revealed no leukocytosis hemoglobin 13.1. Platelet count 158. Stable electrolytes. BUN 19, creatinine 1.6. Lactic acid 1.6. Glucose 127. Troponin - 0.012. Stable LFT. Albumin 3.5. Urinalysis revealed no pyuria +1 leukocyte esterase. Chest x-ray revealed no acute cardiopulmonary pathology. CT of the abdomen and pelvis demonstrated mild right hydroureteronephrosis. Obstructive stone was not definitely seen. However there was a tiny punctate calcification about 1 mm probably within the right distal ureter. Mild to moderate stool retention. In emergency department patient pancultured ,started on IV fluids and empiric antibiotic, and admitted for further management. CONSULTANTS: city assessor Dr. Salmeron pulmonary Dr. Rm ID specialist GI specialist Dr. Germain elementary assistant teacher Dr. Andres urologist Dr. Osborne HOSPITAL COURSE: Patient admitted to medical surgical floor. Supplemental oxygen was titrated as needed to keep pulse oximetry above 92%. Chest x-ray revealed no evidence of acute infection. DVT prophylaxis provided. Patient started on antibiotic as per ID recommendation. Blood cultures were negative. Stool culture was negative. Stool for C. difficile was negative. Urine culture was negative. Repeated blood cultures were negative as well. Intermittent leukocytosis and initial fevers resolved. Patient undergone WBC scan which was negative. According to ID specialist , source of sepsis was unclear : possible intra- abdominal source, possible due to kidney stones. Renal ultrasound showed resolution of hydronephrosis. Amylase and lipase remained normal. Echocardiogram revealed no vegetation. CD4 count improved from prior 182 in September 2018 to 392 currently; therefore the risk of opportunistic infection was less likely. Patient completed empiric antibiotic while in the hospital. Infectious disease specialist recommended discontinue all antibiotics and observe patient clinically. ARV therapy was continued as per ID specialist,. CD4 count improved dramatically from September ( see above). Echocardiogram revealed ejection fraction of 60% with mild left ventricular hypertrophy. No evidence of wall motion abnormality. Right ventricular systolic pressure of 19. Venous duplex bilateral lower extremity revealed no evidence of acute DVT. Lipid panel was stable. Patient demonstrated recurrent episodes of SVT. Patient had multiply doses of IV metoprolol to terminate arrhythmia. EPS studies with ablation were recommended as outpatient. Blood pressure was managed with Cardizem extended release 300 mg daily and metoprolol 25 mg twice daily. No further recurrence of arrhythmia. Lipid panel was stable. Renal parameters and electrolytes were closely monitored. Electrolytes corrected as needed. Nephrotoxins were avoided. Instructional Paraprofessional closely followed. Renal ultrasound revealed interval resolution of right hydronephrosis, compared to the CT scan from 11/17. 6 mm calcification posterior and lateral to the bladder right of midline, likely a phlebolith given presence of a right ureteral jet and absence of hydronephrosis. Urologist seen and evaluated patient . Patient noted to have urinary retention. Patient initially refused insertion of Langford catheter but then agreed. Urine culture was negative. Patient was on Terazosin and Flomax. Proscar was added to existing regimen in effort to help him urinate better. Urologist recommended outpatient cystoscopy with possible urodynamic study for further evaluation , which can be done as outpatient. Strict aspiration precautions were maintained. Swallow evaluation revealed slow but functional mastication. Patient was continued on regular diet with thin liquids. Aspiration reflux precaution maintained. Bowel regimen instituted. TSH within normal limits , current dose of levothyroxine was continued. Pain management was addressed. Antiemetic provided as needed. Supportive care provided. Antidepressive continued. GI specialist closely followed. Initially meticulous bowel regimen instituted for fecal impaction Patient undergone colonoscopy in September 2018, which revealed focal proctitis, suspicious for C. difficile versus ulcerative colitis, status post biopsy. Biopsy of right and left colon to evaluate for microscopic colitis was negative. At that time rectal bleeding resolved. Hemoglobin and hematocrit were closely monitored with goal to keep hemoglobin above 7, and remained stable. Stool for C. difficile was negative. Stool culture was negative. After fecal impaction resolved patient developed diarrhea, which subsequently resolved. Bowel regimen continued, but stool softeners and laxative were hold. Diet was advanced as tolerated. Patient was able to tolerate diet. Lamisil provided as needed. Gastric support with PPI provided. Protein supplements implemented in plan of care as per dietetic technician registered recommendations. Patient clinically stabilized and was ready for discharge home. Outpatient follow-up with primary care provider and urologist. FINAL DIAGNOSES: Sepsis Acute kidney injury/ATN, possibly due to mild hydroureteronephrosis-improved Rectal cancer HIV/AIDS Fecal impaction -resolved History of CVA Hypertension Recurrent episode of SVT-resolved Hypothyroidism Depression Urinary retention Electrolyte imbalance ( potassium , phosphorus) Anemia Severe protein calorie malnutrition DISCHARGE MEDICATIONS: See Medication Reconciliation list. DISCHARGE INSTRUCTIONS: Patient was discharged home . Follow up with primary care provider in one week. Follow-up with urologist. Karla Mason NP Dec 02, 2018 12:58
== END 2018-12-01 18:10 | disposition home or self-care (01) | DRG 974 ==
LOC: EDBD 18:51 → EMR 19:50 → 2E 20:00 → EDBEDREQ 20:35 → 2E 11-21 05:25 → 4E 11-23 22:29
DX: A41.9 Sepsis, unspecified organism (principal); N17.0 Acute kidney failure with tubular necrosis; B20 Human immunodeficiency virus [HIV] disease; J18.9 Pneumonia, unspecified organism; E43 Unspecified severe protein-calorie malnutrition; K62.5 Hemorrhage of anus and rectum; N13.30 Unspecified hydronephrosis; C20 Malignant neoplasm of rectum; I47.1 Supraventricular tachycardia; I10 Essential (primary) hypertension; Z86.73 Personal history of transient ischemic attack (TIA), and cerebral infarction without residual deficits; F32.9 Major depressive disorder, single episode, unspecified; F41.9 Anxiety disorder, unspecified; K56.41 Fecal impaction; N40.1 Benign prostatic hyperplasia with lower urinary tract symptoms; R33.8 Other retention of urine; E03.9 Hypothyroidism, unspecified; E87.6 Hypokalemia; D64.9 Anemia, unspecified; Z68.24 Body mass index [BMI] 24.0-24.9, adult; R19.7 Diarrhea, unspecified
CPT/HCPCS: 36415; 71045; 74177; 76770; 78807; 80048; 80053; 80061; 80076; 80202; 81001; 81003; 82140; 82150; 82550; 82553; 82607; 82728; 82746; 82977; 83036; 83540; 83550; 83605; 83690; 83735; 83880; 83930; 84100; 84439; 84443; 84484; 84550; 85007; 85025; 85060; 85651; 86140; 86360; 87040; 87045; 87081; 87086; 87324; 87536; 93005; 93306; 93970; 94664; 96361; 96374; 99285; A9570; C9399; J2405; J2765; J8499

== ENCOUNTER 2019-01-11 15:00 | Emergency (ER) | payer MEDICARE, MEDICAID ==
[~2019-01-11] VITALS: Ht 170.2 cm; Wt 72.6 kg
[~2019-01-11 15:00] MED LIST changes: +CARDIZEM CD180 MG ORAL; +FINASTERIDE5 MG ORAL; +FLAGYL500 MG ORAL; +FLOMAX0.4 MG ORAL; +PAROXETINE HCL20 MG ORAL; +SYNTHROID25 MCG ORAL; +UNOBMED
--- NOTE | 2019-01-11 15:16 | NUR ---
ED Nurse Note: PT FROM HOME BROUGHT IN BY EMS DUE TO HEADACHE SINCE THIS MRBASIM. PT DENIES DIZZINESS OR N/V. HX OF STROKE. AAOX 4, USES WHEELCHAIR AT HOME. NO RESPIRATORY DISTRESS. VSS.
[2019-01-11 15:18] VITALS: BP 142/75
--- NOTE | 2019-01-11 15:35 | NUR ---
ED Nurse Note: COLLECTED BLOOD THEN SENT.
--- NOTE | 2019-01-11 15:38 | NUR ---
ED Nurse Note: PT ASKING FOR PAIN MEDICATION. DR HANSEN NOTIFIED.
[2019-01-11 15:44] LABS: BASOPHILS % (AUTO) 0.9 % (0.0-2.0); EOSINOPHILS % (AUTO) 2.4 % (0.0-3.0); HEMATOCRIT 33.9 % (42.0-52.0); HEMOGLOBIN 11.3 G/DL (14.2-18.0); MEAN CORPUSCULAR VOLUME 93 FL (80-99); MONOCYTES % (AUTO) 8.4 % (1.0-10.0); NEUTROPHILS % (AUTO) 44.2 % (45.0-75.0); PLATELET COUNT 178 K/UL (150-450); RED BLOOD COUNT 3.67 M/UL (4.70-6.10); RED CELL DISTRIBUTION WIDTH 13.2 % (11.6-14.8); WHITE BLOOD COUNT 5.2 K/UL (4.8-10.8)
[2019-01-11] MEDS ORDERED: Ketorolac 30mg Inj IV ONE (15:45)
--- NOTE | 2019-01-11 15:45 | NUR ---
ED Nurse Note: PT TAKEN TO CT. VSS.
--- NOTE | 2019-01-11 15:50 | Emergency Room Report ---
History of Present Illness General Chief Complaint: Headache Source: Patient, Medical Record Present Illness HPI This patient has a history of multiple chronic medical problems. He has a history of HIV, hypertension, CVA. He also has chronic pain. He states that his pain management physician recently decreased his pain medications. He states he has been in a lot of pain from his back and legs from his chronic arthritis. He states that this morning his blood pressure was elevated and he had developed a bad headache. He states that now his headache is resolved. However, he was concerned because he has a history of a CVA. He denies new symptoms. He states his headache symptoms have resolved. He is frustrated with his chronic and uncontrolled pain. He states that his HIV is undetectable and has been for many years. He states he is also recently diagnosed with some sort of rectal cancer. He states he has not undergone any type of treatment at this time. He states this is still undergoing evaluation. He denies recent illness. He denies fever or chills. Denies trauma. He has no other complaints. Allergies: Coded Allergies: CODEINE (Unverified Allergy, Unknown, 11/28/17) EMTRICITABINE (Verified Allergy, Unknown, anxiousness, 08/31/18) SULFAMETHOXAZOLE (Unverified Allergy, Unknown, 10/27/17) TENOFOVIR (Verified Allergy, Unknown, anxiousness, 08/31/18) TRIMETHOPRIM (Unverified Allergy, Unknown, 10/27/17) Patient History Past Medical History: see triage record, HTN, CAD, CVA/TIA - Has contractures and chronic pain, HIV, other - Hepatitis, hx of heavy ETOH abuse. Social History: Reports: alcohol use, drug use; Denies: smoking Reviewed Nursing Documentation: PMH: Agreed; PSxH: Agreed Nursing Documentation-PMH Past Medical History: No History, Except For Hx Cardiac Problems: Yes - HIV/AIDS since 1984 Hx Hypertension: Yes Hx Cancer: Yes - RECTAL Hx Gastrointestinal Problems: Yes - umbilical hernia Hx Neurological Problems: Yes Hx Cerebrovascular Accident: Yes Hx Weakness: Yes Review of Systems All Other Systems: negative except mentioned in HPI Physical Exam Vital Signs Date Time Temp Pulse Resp B/P (MAP) Pulse Ox O2 Delivery O2 Flow Rate FiO2 01/11/19 15:06 98.1 79 19 133/83 (100) 96 Room Air Sp02 EP Interpretation: reviewed, normal General Appearance: no apparent distress, alert, GCS 15, non-toxic Head: normocephalic, atraumatic Eyes: bilateral eye normal inspection, bilateral eye PERRL ENT: hearing grossly normal, normal pharynx, no angioedema, normal voice Neck: full range of motion, supple/symm/no masses Respiratory: chest non-tender, lungs clear, normal breath sounds, speaking full sentences Cardiovascular #1: regular rate, rhythm, no edema Cardiovascular #2: 2+ carotid (R), 2+ carotid (L), 2+ radial (R), 2+ radial (L) , 2+ dorsalis pedis (R), 2+ dorsalis pedis (L) Gastrointestinal: normal bowel sounds, non tender, soft, non-distended, no guarding, no rebound Rectal: deferred Genitourinary: normal inspection, no CVA tenderness Musculoskeletal: back normal, gait/station normal, normal range of motion, non- tender, calf tenderness Neurologic: alert, oriented x3, responsive, motor strength/tone normal, sensory intact, speech normal Psychiatric: judgement/insight normal, memory normal, mood/affect normal, no suicidal/homicidal ideation Reflexes: 3+ bicep (R), 3+ bicep (L), 3+ tricep (R), 3+ tricep (L), 3+ knee (R) , 3+ knee (L) Lymphatic: no adenopathy Medical Decision Making Diagnostic Impression: Primary Impression: Chronic pain ER Course This patient has a hx of chronic pain. His PCP has supposedly decreased his narcotic pain regimen. He has no new symptoms and his headache resolved prior to my evaluation. CT head showed no acute findings. Exam not c/w CVA/TIA. Overall, this patient's evaluation is benign. He is instructed to f/u with his PCP, oncologists and pain management specialists for further evaluation and treatment. At this time, I did not identify an emergency medical condition. The patient is given close return precautions and follow-up instructions. Laboratory Tests Test 01/11/19 15:28 White Blood Count 5.2 K/UL (4.8-10.8) Red Blood Count 3.67 M/UL (4.70-6.10) L Hemoglobin 11.3 G/DL (14.2-18.0) L Hematocrit 33.9 % (42.0-52.0) L Mean Corpuscular Volume 93 FL (80-99) Mean Corpuscular Hemoglobin 30.9 PG (27.0-31.0) Mean Corpuscular Hemoglobin Concent 33.4 G/DL (32.0-36.0) Red Cell Distribution Width 13.2 % (11.6-14.8) Platelet Count 178 K/UL (150-450) Mean Platelet Volume 7.8 FL (6.5-10.1) Neutrophils (%) (Auto) 44.2 % (45.0-75.0) L Lymphocytes (%) (Auto) 44.0 % (20.0-45.0) Monocytes (%) (Auto) 8.4 % (1.0-10.0) Eosinophils (%) (Auto) 2.4 % (0.0-3.0) Basophils (%) (Auto) 0.9 % (0.0-2.0) Prothrombin Time 10.2 SEC (9.30-11.50) Prothrombin Time INR 1.0 (0.9-1.1) PTT 26 SEC (23-33) Sodium Level 139 MMOL/L (136-145) Potassium Level 3.6 MMOL/L (3.5-5.1) Chloride Level 107 MMOL/L (98-107) Carbon Dioxide Level 22 MMOL/L (21-32) Anion Gap 10 mmol/L (5-15) Blood Urea Nitrogen 15 mg/dL (7-18) Creatinine 1.0 MG/DL (0.55-1.30) Estimate Glomerular Filtration Rate > 60 mL/min (>60) Glucose Level 129 MG/DL (74-106) H Calcium Level 9.3 MG/DL (8.5-10.1) Total Bilirubin 0.3 MG/DL (0.2-1.0) Aspartate Amino Transferase (AST) 18 U/L (15-37) Alanine Aminotransferase (ALT) 16 U/L (12-78) Alkaline Phosphatase 136 U/L (46-116) H Total Protein 7.3 G/DL (6.4-8.2) Albumin 3.1 G/DL (3.4-5.0) L Globulin 4.2 g/dL Albumin/Globulin Ratio 0.7 (1.0-2.7) L CT/MRI/US Diagnostic Results CT/MRI/US Diagnostic Results : Imaging Test Ordered: CT head Impression No acute findings. Specifically no intracranial bleed, mass effect or edema. See official report. Last Vital Signs Date Time Temp Pulse Resp B/P (MAP) Pulse Ox O2 Delivery O2 Flow Rate FiO2 01/11/19 15:18 98.1 72 15 142/75 98 Room Air Status: improved Disposition: HOME, SELF-CARE Condition: Improved Patient Instructions: General Headache Without Cause Dyana Swann DO Jan 11, 2019 15:50
--- NOTE | 2019-01-11 15:53 | NUR ---
ED Nurse Note: PT CAME BACK FROM CT. VSS.
[2019-01-11 15:54] LABS: ANION GAP 10 mmol/L (5-15); BLOOD UREA NITROGEN 15 mg/dL (7-18); CALCIUM 9.3 MG/DL (8.5-10.1); CARBON DIOXIDE 22 MMOL/L (21-32); CHLORIDE 107 MMOL/L (98-107); POTASSIUM 3.6 MMOL/L (3.5-5.1); SODIUM 139 MMOL/L (136-145)
[2019-01-11 15:59] LABS: ALANINE AMINOTRANSFERASE 16 U/L (12-78); ALBUMIN 3.1 G/DL (3.4-5.0); ALBUMIN/GLOBULIN RATIO 0.7 (1.0-2.7); ALKALINE PHOSPHATASE 136 U/L (46-116); ASPARTATE AMINO TRANSFERASE 18 U/L (15-37); BILIRUBIN,TOTAL 0.3 MG/DL (0.2-1.0)
--- NOTE | 2019-01-11 16:25 | Diagnostic Imaging Report ---
Indication: Headache Technique: Contiguous 5 mm thick transaxial imaging of the head obtained in a Siemens Sensation [address] scanner. Soft tissue and bone windows generated. Automatic Exposure Control was utilized. Total Dose length Product (DLP): 1386.[address] Dose Index Volume (CTDIvol): 70.38 mGy Comparison: 11/30/2017 Findings: There is mild prominence of the ventricles, basal cisterns, and cerebral sulci consistent with atrophy. Mild, nonspecific, white matter hypoattenuation is noted throughout the brain consistent with chronic small vessel disease. There is a small focus of the parenchymal loss in the left landaverde radiata/basal ganglia consistent with an old infarct. There is no midline shift, edema, acute hemorrhage, mass effect, or abnormal extra-axial fluid collections. Bones are unremarkable. Impression: No acute intracranial bleed, mass effect or edema. Mild atrophy of the brain. Nonspecific white matter hypoattenuation probably due to chronic small vessel disease. Old left basal ganglia/landaverde radiata infarct The CT scanner at [facility] is accredited by the [employer] and the scans are performed using dose optimization techniques as appropriate to a performed exam including Automatic Exposure control.
--- NOTE | 2019-01-11 17:00 | NUR ---
ED Nurse Note: PT NEEDS TRANSPORTATION TO GO BACK HOME D/T BEING NON AMBULATORY. ER CHARGE NURSE NOTIFIED. WAITING FOR AMBULANCE.
[2019-01-11 17:27] VITALS: BP 135/70
--- NOTE | 2019-01-11 19:18 | NUR ---
HAND-OFF: Report given to GO WHITEHEAD.
--- NOTE | 2019-01-11 19:38 | NUR ---
ED Nurse Note: Patient cleared for discharge, by Hali RAYGOZA currently here for pickle solution maker. Patient is A&Ox4, vebalized understanding of discharge instructions. ID band removed. Patient discharged with all belongings, departing to home via EMS transport.
[2019-01-11 19:40] VITALS: BP 135/70
== END 2019-01-11 19:41 | disposition home or self-care (01) ==
LOC: EDBD 15:00 → EMR 17:28
DX: G89.29 Other chronic pain (principal); R51 Headache; I10 Essential (primary) hypertension; G31.9 Degenerative disease of nervous system, unspecified; K42.9 Umbilical hernia without obstruction or gangrene; Z85.048 Personal history of other malignant neoplasm of rectum, rectosigmoid junction, and anus; Z88.2 Allergy status to sulfonamides; Z88.5 Allergy status to narcotic agent; Z88.1 Allergy status to other antibiotic agents
CPT/HCPCS: 36415; 70450; 80053; 85025; 85610; 85730; 96361; 96374; 99284; J1885

== ENCOUNTER 2019-02-10 06:52 | Inpatient (IN) | payer MEDICARE, MEDICAID ==
[2019-02-10] VITALS (8 sets, daily range): BP systolic 127–150; BP diastolic 65–87
[~2019-02-10] VITALS: Ht 165.1 cm; Wt 69.0 kg
--- NOTE | 2019-02-10 07:11 | NUR ---
ED Nurse Note: PT BROUGHT IN BY [facility] FROM [facility]. AOX4. PT C/O CHRONIC INTERMITTENT LEG PAIN, 03/13. PER EMS, PT WAS FOUND ON THE FLOOR AND PT'S FACILITY CALLED 911. PT STATES HE DID NOT ACTUALLY FALL - HE WAS ABOUT TO BUT CAUGHT HIMSELF BEFORE HE HIT THE GROUND. PT DENIES HEAD TRAUMA OR LOC. AT BEDSIDE, PT TACHYCARDIC - HR: 108 AND FEBRILE - ORAL TEMP: 103.7F. DR ISABELLE ORANTES.
[2019-02-10] MEDS ORDERED: Sodium Chloride 1,900 ML IVLG ONE (07:15)
--- NOTE | 2019-02-10 07:16 | NUR ---
ED Nurse Note: XRAY AT BEDSIDE.
--- NOTE | 2019-02-10 07:32 | Diagnostic Imaging Report ---
EXAM: XR Chest, 1 View CLINICAL HISTORY: TACHYP TECHNIQUE: Frontal view of the chest. COMPARISON: 11/20/2018 FINDINGS: Lungs: There are patchy bibasilar opacities which likely represent areas of atelectasis but could represent pneumonia. There is no area of consolidation. There is no pleural effusion. Pleural space: See above. Heart: Unremarkable. No cardiomegaly. Mediastinum: Unremarkable. Bones/joints: Unremarkable. Vasculature: The aorta is slightly tortuous but an change in appearance. IMPRESSION: Bibasilar opacities likely representing subsegmental atelectasis.
--- NOTE | 2019-02-10 07:41 | NUR ---
HAND-OFF: REPORT GIVEN TO CHARLEY GLASGOW.
--- NOTE | 2019-02-10 07:42 | NUR ---
ED Nurse Note: Received report from CHARLEY Dhillon. Observed patient in bed, aaox4. laboratory monitor shows sinus tachycardia at this time, HR 110. BP 131/75, SpO2 95% on room air. Left AC IV 20g intact and patent with IV fluids infusing. Labs collected per endorsing RN. Will continue to monitor patient.
--- NOTE | 2019-02-10 07:48 | Emergency Room Report ---
History of Present Illness General Chief Complaint: Pain Source: Patient Present Illness HPI Disclaimer: Please note that this report is being documented using DRAGON technology. This can lead to erroneous entry secondary to incorrect interpretation by the dictating instrument. HPI: 68-year-old male with a history of hypertension, hyperlipidemia, HIV ( diagnosed 1984), rectal cancer currently undergoing work-up but no active treatment yet at [facility] presents for evaluation of lower extreme any weakness. The patient at baseline uses a wheelchair for ambulation around his home but is able to get out of that wheelchair himself and perform some exercises. This morning, he states he could not rise from his bed and called EMS. There was no fall or trauma. He simply notes lower extremity weakness and weakness in the pelvis out of his baseline. He denies any recent fevers though has felt increased thirst lately. He had urinary retention on his last hospitalization in December of this year but states he has noted no difficulty with urinary retention. Denies any hematuria, dysuria, vomiting, diarrhea, chest pain, shortness of breath, cough. He does note some nasal congestion. PMH: Rectal cancer, hypertension, hyperlipidemia, prior stroke with residual right-sided weakness, HIV PSH: Denies Allergies: Codeine, sulfa medication Social Hx: Former smoker, quit drinking in the , denies drug use Allergies: Coded Allergies: CODEINE (Unverified Allergy, Unknown, 11/28/17) EMTRICITABINE (Verified Allergy, Unknown, anxiousness, 08/31/18) SULFAMETHOXAZOLE (Unverified Allergy, Unknown, 10/27/17) TENOFOVIR (Verified Allergy, Unknown, anxiousness, 08/31/18) TRIMETHOPRIM (Unverified Allergy, Unknown, 10/27/17) Nursing Documentation-PMH Past Medical History: No History, Except For Hx Cardiac Problems: Yes - HIV/AIDS since 1984 Hx Hypertension: Yes Hx Cancer: Yes - RECTAL Hx Gastrointestinal Problems: Yes - umbilical hernia Hx Neurological Problems: Yes Hx Cerebrovascular Accident: Yes Hx Weakness: Yes Review of Systems All Other Systems: negative except mentioned in HPI Physical Exam Vital Signs Date Time Temp Pulse Resp B/P (MAP) Pulse Ox O2 Delivery O2 Flow Rate FiO2 02/10/19 06:55 99.3 93 18 138/78 (98) 98 Room Air General: Awake and alert, no acute distress HEENT: NC/AT. EOMI. very dry mucous membranes Neck: Supple, trachea midline Chest Wall: No tenderness, no deformity Cardiovascular: Tachycardic. S1 and S2 normal. No murmur appreciated Resp: Slight tachypnea. Normal work of breathing. No cough, wheezing or crackles appreciated Abdomen: Abdomen is soft, nondistended. Nontender Skin: Intact. No abrasions, laceration or rash over the exposed skin MSK: Lower extremities held in contracture. Cannot straighten actively or passively. Unable to rise his legs off the bed. Strength is 5/5 in the shoulders, elbows and wrist in the upper extremities. Neuro: Awake and alert. Mentating appropriately. Sensation is intact over the upper and lower extremities Medical Decision Making Diagnostic Impression: Primary Impression: Febrile illness, acute Additional Impression: Weakness ER Course 68-year-old male presents for evaluation of lower extremity weakness. Differential includes but is not limited to electrolyte imbalance, deconditioning, ACS, infection such as pneumonia, urinary tract infection, GI, anemia, hypothyroidism, stroke recrudescence. Patient is tachycardic, warm to the touch and slightly tachypneic. Biggest concern at this time is for infection. Will begin broad sepsis work-up, start IV fluids, urinalysis, blood and urine cultures and chest x-ray and EKG. Patient given antipyretics. Will require admission Laboratory Tests Test 02/10/19 07:10 02/10/19 07:11 White Blood Count 7.7 K/UL (4.8-10.8) Red Blood Count 4.29 M/UL (4.70-6.10) L Hemoglobin 13.0 G/DL (14.2-18.0) L Hematocrit 39.7 % (42.0-52.0) L Mean Corpuscular Volume 93 FL (80-99) Mean Corpuscular Hemoglobin 30.3 PG (27.0-31.0) Mean Corpuscular Hemoglobin Concent 32.7 G/DL (32.0-36.0) Red Cell Distribution Width 13.4 % (11.6-14.8) Platelet Count 150 K/UL (150-450) Mean Platelet Volume 8.0 FL (6.5-10.1) Neutrophils (%) (Auto) 71.4 % (45.0-75.0) Lymphocytes (%) (Auto) 19.8 % (20.0-45.0) L Monocytes (%) (Auto) 6.7 % (1.0-10.0) Eosinophils (%) (Auto) 1.6 % (0.0-3.0) Basophils (%) (Auto) 0.5 % (0.0-2.0) Sodium Level 134 MMOL/L (136-145) L Potassium Level 3.9 MMOL/L (3.5-5.1) Chloride Level 101 MMOL/L (98-107) Carbon Dioxide Level 27 MMOL/L (21-32) Anion Gap 6 mmol/L (5-15) Blood Urea Nitrogen 18 mg/dL (7-18) Creatinine 1.3 MG/DL (0.55-1.30) Estimat Glomerular Filtration Rate 54.6 mL/min (>60) Glucose Level 102 MG/DL (74-106) Lactic Acid Level 1.90 mmol/L (0.4-2.0) Calcium Level 9.0 MG/DL (8.5-10.1) Phosphorus Level 1.9 MG/DL (2.5-4.9) L Magnesium Level 1.7 MG/DL (1.8-2.4) L Total Bilirubin 0.5 MG/DL (0.2-1.0) Aspartate Amino Transf (AST/SGOT) 27 U/L (15-37) Alanine Aminotransferase (ALT/SGPT) 20 U/L (12-78) Alkaline Phosphatase 116 U/L (46-116) Total Creatine Kinase 80 U/L (26-308) Creatine Kinase MB 1.2 NG/ML (0.0-3.6) Creatine Kinase MB Relative Index 1.5 Troponin I 0.000 ng/mL (0.000-0.056) Total Protein 8.4 G/DL (6.4-8.2) H Albumin 3.6 G/DL (3.4-5.0) Globulin 4.8 g/dL Albumin/Globulin Ratio 0.8 (1.0-2.7) L Urine Color Pale yellow Urine Appearance Clear Urine pH 6.5 (4.5-8.0) Urine Specific [place] 1.010 (1.005-1.035) Urine Protein 2+ (NEGATIVE) H Urine Glucose (UA) Negative (NEGATIVE) Urine Ketones Negative (NEGATIVE) Urine Blood Negative (NEGATIVE) Urine Nitrite Negative (NEGATIVE) Urine Bilirubin Negative (NEGATIVE) Urine Urobilinogen Normal MG/DL (0.0-1.0) Urine Leukocyte Esterase Negative (NEGATIVE) Urine RBC 0 /HPF (0 - 0) Urine WBC 0-2 /HPF (0 - 0) Urine Squamous Epithelial Cells None /LPF (NONE/OCC) Urine Bacteria None /HPF (NONE) EKG Diagnostic Results EKG Time: 07:59 EP Interpretation: sinus tachycardia with incomplete RBBB Rate: tachycardiac Rhythm: NSR ST Segments: no acute changes Rhythm Strip Diag. Results Rhythm Strip Time: 07:59 EP Interpretation: yes Rate: 110s Rhythm: other - tacjycardia Chest X-Ray Diagnostic Results Chest X-Ray Diagnostic Results : Chest X-Ray Ordered: Yes # of Views/Limited/Complete: 1 View Indication: Other - fever EP Interpretation: Yes Interpretation: no consolidation, no effusion Impression: No acute disease Electronically Signed by: Electronically signed by Dr. Andres Lindo Reevaluation Time: 09:24 Last Vital Signs Date Time Temp Pulse Resp B/P (MAP) Pulse Ox O2 Delivery O2 Flow Rate FiO2 02/10/19 06:55 99.3 93 18 138/78 (98) 98 Room Air Status: improved Reevaluation Impression Lab work returned largely within normal limits. No evidence of significant white count, no evidence of urinary tract infection. Phosphorus and magnesium are slightly below lower limits of normal. The patient is receiving IV fluids. We will replete electrolytes. He received antipyretics with improvement in his heart rate and temperature. Chest x-ray does not show any obvious pneumonia. We will give vancomycin and Zosyn empirically. Patient will be admitted for febrile illness and weakness. Disposition: ADMITTED INPATIENT Condition: Serious Andres Lindo MD Feb 10, 2019 07:48
[2019-02-10 07:54] LABS: BASOPHILS % (AUTO) 0.5 % (0.0-2.0); EOSINOPHILS % (AUTO) 1.6 % (0.0-3.0); HEMATOCRIT 39.7 % (42.0-52.0); LYMPHOCYTES % (AUTO) 19.8 % (20.0-45.0); MEAN CORPUSCULAR VOLUME 93 FL (80-99); MONOCYTES % (AUTO) 6.7 % (1.0-10.0); NEUTROPHILS % (AUTO) 71.4 % (45.0-75.0); PLATELET COUNT 150 K/UL (150-450); RED BLOOD COUNT 4.29 M/UL (4.70-6.10); RED CELL DISTRIBUTION WIDTH 13.4 % (11.6-14.8); WHITE BLOOD COUNT 7.7 K/UL (4.8-10.8)
[2019-02-10 07:59] LABS: APPEARANCE,URINE CLEAR; BILIRUBIN, URINE NEGATIVE (NEGATIVE); COLOR,URINE PALE YELLOW; GLUCOSE, URINE (UA) NEGATIVE (NEGATIVE); KETONES,URINE NEGATIVE (NEGATIVE); LEUKOCYTE ESTERASE ,URINE NEGATIVE (NEGATIVE); NITRITE,URINE NEGATIVE (NEGATIVE); PH,URINE 6.5 (4.5-8.0); PROTEIN,URINE 2+ (NEGATIVE); UROBILINOGEN,URINE NORMAL MG/DL (0.0-1.0)
--- NOTE | 2019-02-10 08:00 | NUR ---
ED Nurse Note: EKG done. Results given to IDALMIS.
[2019-02-10 08:09] LABS: ANION GAP 6 mmol/L (5-15); BLOOD UREA NITROGEN 18 mg/dL (7-18); CARBON DIOXIDE 27 MMOL/L (21-32); CHLORIDE 101 MMOL/L (98-107); CREATININE 1.3 MG/DL (0.55-1.30); POTASSIUM 3.9 MMOL/L (3.5-5.1); SODIUM 134 MMOL/L (136-145)
[2019-02-10] MEDS ORDERED: Acetaminophen 500mg (ES) tab ORAL ONE (08:15)
[2019-02-10 08:22] LABS: ALANINE AMINOTRANSFERASE 20 U/L (12-78); ALBUMIN 3.6 G/DL (3.4-5.0); ALBUMIN/GLOBULIN RATIO 0.8 (1.0-2.7); ALKALINE PHOSPHATASE 116 U/L (46-116); ASPARTATE AMINO TRANSFERASE 27 U/L (15-37); BILIRUBIN,TOTAL 0.5 MG/DL (0.2-1.0); CKMB 1.2 NG/ML (0.0-3.6); CREATINE KINASE 80 U/L (26-308); PHOSPHORUS 1.9 MG/DL (2.5-4.9)
[2019-02-10] MEDS ORDERED: Morphine Sulfate 4mg/ml Inj (IV USE ONLY) IVP ONE (09:00)
--- NOTE | 2019-02-10 10:07 | NUR ---
ED Nurse Note: Swabs taken for MRSA/VRE/CRE screening; sent to lab.
--- NOTE | 2019-02-10 10:30 | NUR ---
ED Nurse Note: Report given to CHARLEY Wong.
[2019-02-10] MEDS ORDERED: Piperacillin/Tazobactam 3.375 GM in NS 110 ML IVPB ONE (11:00)
[2019-02-10] MEDS ORDERED: Vancomycin 1 GM in NS 275 ML IVPB ONE (11:00)
--- NOTE | 2019-02-10 11:10 | NUR ---
TRANSFER TO FLOOR: Patient transferred to telemetry room 205, as ordered, per Dr Barragan. ACLS protocol. Report given to CHARLEY Wong. Belongings list acknowledged and signed by receiving RN. Patient in stable condition. Receving RN to administer antibiotics IV.
--- NOTE | 2019-02-10 11:45 | NUR ---
NURSE NOTES: Received report from CHARLEY Mcduffie. Pt has a fever on 102.0 He states he feels weak and tired. He states that this feeling is not normal for him. Heart monitor was applied. IV is patent. No redness or swelling noted. Belongings list signed and in chart. Bed is in lowest position, side rails up x2, and call light is within reach. Will continue to monitor. Will contact MD for admission orders.
--- NOTE | 2019-02-10 11:50 | NUR ---
NURSE NOTES: Contacted Dr. Rm for admission orders. Will await call back
--- NOTE | 2019-02-10 12:18 | NUR ---
NURSE NOTES: Attempted to assess the patients skin. Pt refused to be checked. He said "I don't have nothing on my skin!". Explained the importance of the skin assessment. He said "I said no" Will attempt to assess pt later.
[2019-02-10] MEDS ORDERED: LORazepam Inj 2mg/ml 1ml IV PRN (14:00)
[2019-02-10] MEDS ORDERED: Miralax 17gm pkt ORAL PRN (14:00)
[2019-02-10] MEDS ORDERED: Zolpidem 5mg tab ORAL PRN (14:00)
[2019-02-10] MEDS ORDERED: Dextrose 50% 25ml Syringe IV PRN (14:15)
--- NOTE | 2019-02-10 17:00 | NUR ---
NURSE NOTES: Tried to assess the patient once again. He said "Not right now". Pt states he wants to sleep.
--- NOTE | 2019-02-10 17:00 | History & Physical ---
History and Physical History & Physicial Dictated for Int Med-Dr Barragan no. [id number] Trey Whitaker MD Feb 10, 2019 17:00
[2019-02-10] MEDS: Tamsulosin 0.4mg cap ORAL SCH (17:23)
--- NOTE | 2019-02-10 19:10 | NUR ---
HAND-OFF: Report given to CHARLEY Loera. Plan of care endorsed
--- NOTE | 2019-02-10 19:15 | NUR ---
NURSE NOTES: Received report from Judith RN, pt. in bed awake, A/O x's4- able to make needs known, no signs or symptoms of acute cardiac or respiratory distress noted, bed in lowest position and call light within easy reach, bed alarm on, side rails up x's3 and safety brakes engaged, pt. appears to be clean and dry, pt. appears to be sating well on 2L NC at 98%- no distress noted, Urinal at bedside and within easy reach, Left AC 20G IV intact and patent, safety measures continued, will continue with plan of care.
--- NOTE | 2019-02-10 22:00 | History and Physical Report ---
DATE OF ADMISSION: 02/10/2019 CHIEF COMPLAINT: The patient is a 68-year-old white male, who presents with a chief complaint of generalized weakness. HISTORY OF PRESENT ILLNESS: The patient was admitted to [facility] in November of 2018. Please see history and physical and discharge summary dictated at that time. The patient has been increasingly weak over the past couple of weeks. The patient states his legs are weak. The patient is unable to ambulate without a wheelchair. The patient presented to [facility] emergency room. The patient is admitted for generalized weakness. REVIEW OF SYSTEMS: CONSTITUTIONAL: The patient denies weight loss or weight gain. The patient denies fevers or chills. HEENT: The patient denies ear or throat pain. The patient denies headache. CARDIOVASCULAR: The patient denies palpitations or chest pain. CHEST: The patient denies wheeze or shortness of breath. ABDOMINAL: The patient denies nausea, vomiting, diarrhea, or constipation. GENITOURINARY: The patient denies dysuria or increased frequency of urination. NEUROMUSCULAR: The patient complains of generalized weakness as above. The patient denies seizures. PAST MEDICAL HISTORY: Significant for: 1. Hypertension. 2. Rectal cancer. 3. Cerebrovascular disease, status post cerebrovascular accident in 2004. 4. HIV, diagnosed in 1984. 5. Paroxysmal supraventricular tachycardia. PAST SURGICAL HISTORY: The patient denies. CURRENT MEDICATIONS: 1. Fosamax 70 mg p.o. weekly. 2. Norvasc 10 mg p.o. daily. 3. Aspirin 81 mg p.o. daily. 4. Baclofen 10 mg p.o. 3 times daily. 5. Calcium carbonate 500 mg p.o. daily. 6. Vitamin D 1000 units p.o. daily. 7. Prezista 600 mg p.o. twice daily. 8. Diltiazem 180 mg p.o. daily. 9. Avodart 0.5 mg p.o. daily. 10. Genvoya 1 tablet p.o. daily. 11. Baraclude 1 mg p.o. daily. 12. Lunesta 3 mg p.o. at bedtime. 13. Intelence 200 mg p.o. twice daily. 14. Dificid 200 mg p.o. twice daily. 15. Finasteride 5 mg p.o. daily. 16. Gabapentin 600 mg p.o. 3 times daily. 17. Levoxyl 0.025 mg p.o. daily. 18. Losartan 50 mg p.o. daily. 19. Meloxicam 15 mg p.o. daily. 20. Robaxin 500 mg p.o. 4 times daily. 21. Metoprolol 25 mg p.o. twice daily. 22. Myrbetriq 25 mg p.o. daily. 23. Mirtazapine 15 mg p.o. at bedtime. 24. Omeprazole 20 mg p.o. daily. 25. Oxybutynin 10 mg p.o. daily. 26. [place] 10/325 mg one tablet p.o. 3 times daily. 27. Paxil 40 mg p.o. daily. 28. Norvir 100 mg p.o. twice daily. 29. Isentress 400 mg p.o. twice daily. 30. Flomax 0.4 mg p.o. at bedtime. 31. Valtrex 1000 mg p.o. daily. ALLERGIES: 1. Codeine. 2. Emtricitabine. 3. Tenofovir. 4. Sulfa drugs. SOCIAL HISTORY: The patient lives at a [employer] [facility] [employer]. The patient denies tobacco or alcohol use. The patient is . PHYSICAL EXAMINATION: VITAL SIGNS: Temperature 99.3, respirations 18, pulse 93, and blood pressure 138/70. GENERAL: The patient is a thin-appearing white male, in no apparent distress. HEENT: Eyes, pupils are equal and responsive to light and accommodation. Extraocular movements are intact. NECK: Supple without lymphadenopathy. CHEST: Lungs are clear to auscultation bilaterally without wheezes or rales. CARDIOVASCULAR: Regular rhythm and rate. S1 and S2 are normal without murmurs, rubs, or gallops. ABDOMEN: Soft, nontender, and nondistended. Positive bowel sounds. No evidence of hepatosplenomegaly. Currently, no rebound or guarding noted. EXTREMITIES: Negative for clubbing, cyanosis, or edema. RECTAL/GENITAL: Not performed. NEUROLOGIC: Cranial nerves II through XII are grossly intact without focal deficits. DIAGNOSTIC DATA: An EKG demonstrated sinus tachycardia at approximately 110 beats per minute. LABORATORY STUDIES: WBC 7.7, hemoglobin 13.0, and hematocrit 39.7, and platelets 150,000. Sodium 134, potassium 3.9, chloride 101, CO2 27, BUN 18, creatinine 1.3, and glucose 102. Troponin 0.0. A chest x-ray was reported as bilateral opacities likely consistent with atelectasis. ASSESSMENT: This is an 68-year-old white male. 1. Generalized weakness. 2. Hypertension. 3. Hypothyroidism. 4. Rectal cancer. 5. Cerebrovascular disease. 6. HIV. 7. Paroxysmal supraventricular tachycardia. TREATMENT: 1. Generalized weakness. A CT scan of the brain is pending. Generalized weakness may be due to deconditioning. 2. Hypertension. Continue amlodipine, losartan, and metoprolol as above. 3. Hypothyroidism. Continue Levoxyl as above. 4. Rectal cancer. The patient is followed at [facility]. 5. History of cerebrovascular accident. 6. HIV. Continue HAART as above. 7. Paroxysmal supraventricular tachycardia. Cardiology consultation is pending. Trey Whitaker M.D. DR: ALEXEI JOB#: [id number] CC:
[2019-02-11] VITALS: BP 143/80
[2019-02-11 04:00] VITALS: BP 145/83
[2019-02-11] MEDS: Levothyroxine 25mcg tab ORAL SCH (05:35)
--- NOTE | 2019-02-11 06:57 | NUR ---
HAND-OFF: Report given to Fanta Rn, pt. remains stable and no signs of distress noted.
[2019-02-11 07:28] LABS: BASOPHILS % (AUTO) 0.4 % (0.0-2.0); EOSINOPHILS % (AUTO) 0.3 % (0.0-3.0); HEMATOCRIT 37.2 % (42.0-52.0); HEMOGLOBIN 12.4 G/DL (14.2-18.0); LYMPHOCYTES % (AUTO) 22.7 % (20.0-45.0); MEAN CORPUSCULAR VOLUME 91 FL (80-99); MONOCYTES % (AUTO) 6.5 % (1.0-10.0); NEUTROPHILS % (AUTO) 70.1 % (45.0-75.0); PLATELET COUNT 148 K/UL (150-450); RED BLOOD COUNT 4.07 M/UL (4.70-6.10); RED CELL DISTRIBUTION WIDTH 13.3 % (11.6-14.8); WHITE BLOOD COUNT 11.6 K/UL (4.8-10.8)
--- NOTE | 2019-02-11 07:39 | NUR ---
NURSE NOTES: Received report from Jaqueline Loera. Pt is sitting up in bed. states that his legs are in pain. Pt is alert and oriented X4. Bed is in lowest position, side rails up X2, and call light is within reach. Will continue to monitor.
[2019-02-11 07:53] LABS: ALANINE AMINOTRANSFERASE 23 U/L (12-78); ALBUMIN 3.2 G/DL (3.4-5.0); ALBUMIN/GLOBULIN RATIO 0.7 (1.0-2.7); ALKALINE PHOSPHATASE 97 U/L (46-116); ANION GAP 8 mmol/L (5-15); ASPARTATE AMINO TRANSFERASE 45 U/L (15-37); BILIRUBIN,TOTAL 0.8 MG/DL (0.2-1.0); BLOOD UREA NITROGEN 15 mg/dL (7-18); CALCIUM 8.7 MG/DL (8.5-10.1); CARBON DIOXIDE 23 MMOL/L (21-32); CHLORIDE 109 MMOL/L (98-107); CHOLESTEROL 153 MG/DL (< 200); HDL CHOLESTEROL 45 MG/DL (40-60); POTASSIUM 3.5 MMOL/L (3.5-5.1); SODIUM 140 MMOL/L (136-145); TRIGLYCERIDES 151 MG/DL (30-150)
[2019-02-11 08:00] VITALS: BP 164/85
[2019-02-11] MEDS: PARoxetine 20mg tab ORAL SCH (08:30)
[2019-02-11] MEDS: Morphine Sulfate 2mg/ml Inj(IV/IM USE ONLY) IVP PRN (08:31)
[2019-02-11] MEDS: Tamsulosin 0.4mg cap ORAL SCH ×2 (08:31→17:27)
[2019-02-11 12:12] VITALS: BP 147/100
--- NOTE | 2019-02-11 15:06 | Internal Med Progress Note ---
Subjective Date of Service: Feb 11, 2019 Physician Name Trey Whitaker Attending Physician Carlos Barragan MD Current Medications Medications (Trade) Dose Ordered Sig/Roman Route PRN Reason Start Time Stop Time Status Last Admin Dose Admin Acetaminophen (Tylenol) 650 mg Q4H PRN ORAL fever 02/10/19 14:00 03/12/19 13:59 02/10/19 20:39 Amlodipine Besylate (Norvasc) 10 mg DAILY ORAL 02/11/19 09:00 03/13/19 08:59 02/11/19 08:31 Dextrose (Dextrose 50%) 25 ml Q30M PRN IV Hypoglycemia 02/10/19 14:15 03/12/19 14:05 Dextrose (Dextrose 50%) 50 ml Q30M PRN IV hypoglycemia 02/10/19 14:15 03/12/19 14:14 Gabapentin (Neurontin) 600 mg THREE TIMES A DAY ORAL 02/10/19 18:00 03/12/19 17:59 02/11/19 12:19 Levothyroxine Sodium (Synthroid) 25 mcg DAILY@0630 ORAL 02/11/19 06:30 03/13/19 06:29 02/11/19 05:35 Lorazepam (Ativan 2mg/ml 1ml) 0.5 mg Q4H PRN IV For Anxiety 02/10/19 14:00 02/17/19 13:59 Mirtazapine (Remeron) 15 mg BEDTIME ORAL 02/10/19 21:00 03/12/19 20:59 02/10/19 20:07 Morphine Sulfate (Morphine Sulfate) 1 mg Q4H PRN IVP For Pain 02/10/19 14:00 02/17/19 13:59 02/11/19 08:31 Ondansetron HCl (Zofran) 4 mg Q6H PRN IVP Nausea & Vomiting 02/10/19 14:00 03/12/19 13:59 Paroxetine HCl (Paxil) 40 mg DAILY ORAL 02/11/19 09:00 03/13/19 08:59 02/11/19 08:30 Polyethylene Glycol (Miralax) 17 gm HSPRN PRN ORAL Constipation 02/10/19 14:00 03/12/19 13:59 Tamsulosin HCl (Flomax) 0.4 mg BID ORAL 02/10/19 18:00 03/12/19 17:59 02/11/19 08:31 Zolpidem Tartrate (Ambien) 5 mg HSPRN PRN ORAL Insomnia 02/10/19 14:00 02/17/19 13:59 Allergies: Coded Allergies: CODEINE (Unverified Allergy, Unknown, 11/28/17) EMTRICITABINE (Verified Allergy, Unknown, anxiousness, 08/31/18) SULFAMETHOXAZOLE (Unverified Allergy, Unknown, 10/27/17) TENOFOVIR (Verified Allergy, Unknown, anxiousness, 08/31/18) TRIMETHOPRIM (Unverified Allergy, Unknown, 10/27/17) ROS Limited/Unobtainable: No Constitutional: Reports: weakness HEENT: Reports: no symptoms Cardiovascular: Reports: no symptoms Respiratory: Reports: no symptoms Gastrointestinal/Abdominal: Reports: no symptoms Genitourinary: Reports: no symptoms 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: Reports: no symptoms Subjective 68 YO M admitted with gen weakness. Cover for Int Arun-Dr Barragan Objective Last Vital Signs Date Time Temp Pulse Resp B/P (MAP) Pulse Ox O2 Delivery O2 Flow Rate FiO2 02/11/19 12:12 98.6 111 24 147/100 (116) 95 02/11/19 09:00 Nasal Cannula 2.0 Laboratory Tests Test 02/11/19 06:20 White Blood Count 11.6 K/UL (4.8-10.8) #H Red Blood Count 4.07 M/UL (4.70-6.10) L Hemoglobin 12.4 G/DL (14.2-18.0) L Hematocrit 37.2 % (42.0-52.0) L Mean Corpuscular Volume 91 FL (80-99) Mean Corpuscular Hemoglobin 30.4 PG (27.0-31.0) Mean Corpuscular Hemoglobin Concent 33.3 G/DL (32.0-36.0) Red Cell Distribution Width 13.3 % (11.6-14.8) Platelet Count 148 K/UL (150-450) L Mean Platelet Volume 8.0 FL (6.5-10.1) Neutrophils (%) (Auto) 70.1 % (45.0-75.0) Lymphocytes (%) (Auto) 22.7 % (20.0-45.0) Monocytes (%) (Auto) 6.5 % (1.0-10.0) Eosinophils (%) (Auto) 0.3 % (0.0-3.0) Basophils (%) (Auto) 0.4 % (0.0-2.0) Sodium Level 140 MMOL/L (136-145) Potassium Level 3.5 MMOL/L (3.5-5.1) Chloride Level 109 MMOL/L (98-107) H Carbon Dioxide Level 23 MMOL/L (21-32) Anion Gap 8 mmol/L (5-15) Blood Urea Nitrogen 15 mg/dL (7-18) Creatinine 1.0 MG/DL (0.55-1.30) Estimat Glomerular Filtration Rate > 60 mL/min (>60) Glucose Level 102 MG/DL (74-106) Calcium Level 8.7 MG/DL (8.5-10.1) Total Bilirubin 0.8 MG/DL (0.2-1.0) Aspartate Amino Transf (AST/SGOT) 45 U/L (15-37) H Alanine Aminotransferase (ALT/SGPT) 23 U/L (12-78) Alkaline Phosphatase 97 U/L (46-116) Troponin I 0.006 ng/mL (0.000-0.056) Total Protein 7.8 G/DL (6.4-8.2) Albumin 3.2 G/DL (3.4-5.0) L Globulin 4.6 g/dL Albumin/Globulin Ratio 0.7 (1.0-2.7) L Triglycerides Level 151 MG/DL (30-150) H Cholesterol Level 153 MG/DL (< 200) LDL Cholesterol 81 mg/dL (<100) HDL Cholesterol 45 MG/DL (40-60) Cholesterol/HDL Ratio 3.4 (3.3-4.4) Thyroid Stimulating Hormone (TSH) 0.834 uiU/mL (0.358-3.740) Microbiology Date/Time Source Procedure Growth Status 02/10/19 10:00 Rectum Received Intake and Output 02/10/19 02/11/19 19:00 07:00 Intake Total 4000 ml Output Total 875 ml Balance 4000 ml -875 ml Intake IV Total 4000 ml Output Urine Total 875 ml # Voids 1 1 # Bowel Movements 2 Objective PHYSICAL EXAMINATION: GENERAL: The patient is a thin-appearing white male, in no apparent distress. HEENT: Eyes, pupils are equal and responsive to light and accommodation. Extraocular movements are intact. NECK: Supple without lymphadenopathy. CHEST: Lungs are clear to auscultation bilaterally without wheezes or rales. CARDIOVASCULAR: Regular rhythm and rate. S1 and S2 are normal without murmurs, rubs, or gallops. ABDOMEN: Soft, nontender, and nondistended. Positive bowel sounds. No evidence of hepatosplenomegaly. Currently, no rebound or guarding noted. EXTREMITIES: Negative for clubbing, cyanosis, or edema. RECTAL/GENITAL: Not performed. NEUROLOGIC: Cranial nerves II through XII are grossly intact without focal deficits. Assessment/Plan Assessment/Plan ASSESSMENT: This is an 68-year-old white male. 1. Generalized weakness. 2. Hypertension. 3. Hypothyroidism. 4. Rectal cancer. 5. Cerebrovascular disease. 6. HIV. 7. Paroxysmal supraventricular tachycardia. TREATMENT: 1. Generalized weakness. A CT scan of the brain is pending. Generalized weakness may be due to deconditioning. 2. Hypertension. Continue amlodipine, losartan, and metoprolol as above. 3. Hypothyroidism. Continue Levoxyl as above. 4. Rectal cancer. The patient is followed at [facility]. 5. History of cerebrovascular accident. 6. HIV. Continue HAART as above. 7. Paroxysmal supraventricular tachycardia. Cardiology consultation is pending with Trey Perez MD Feb 11, 2019 15:06
[2019-02-11 16:20] VITALS: BP 148/97
--- NOTE | 2019-02-11 19:24 | Consultation ---
History of Present Illness General Date patient seen: Feb 11, 2019 Chief Complaint: Lower Extremity Injury Present Illness HPI 68 years old male with a history of hypertension, rectal CA, history of CVA in 2004, HIV ( diagnosed in 1984), recent C Dif colitis in 09/2018, presented to the emergency department abdominal pain, fever, chills, and diarrhea. Pt was septic on admission and is admitted to telemetry. Allergies: Coded Allergies: CODEINE (Unverified Allergy, Unknown, 11/28/17) EMTRICITABINE (Verified Allergy, Unknown, anxiousness, 08/31/18) SULFAMETHOXAZOLE (Unverified Allergy, Unknown, 10/27/17) TENOFOVIR (Verified Allergy, Unknown, anxiousness, 08/31/18) TRIMETHOPRIM (Unverified Allergy, Unknown, 10/27/17) Medication History Scheduled Acetaminophen* (Tylenol Extra Strength*), 500 MG ORAL Q6H Alendronate Sodium* (Fosamax*), 70 MG ORAL ONCE A WEEK, (Reported) Amlodipine Besylate (Norvasc), 10 MG ORAL DAILY, (Reported) Amoxicillin/Potassium Clav 875-125* (Augmentin 875-125 Tablet*), 1 TAB ORAL DAILY, (Reported) Aspirin* (Aspir 81*), 81 MG ORAL DAILY, (Reported) Baclofen* (Baclofen*), 10 MG ORAL THREE TIMES A DAY, (Reported) Calcium Carbonate (Oysco-500), 500 MG PO DAILY, (Reported) Cephalexin* (Keflex*), 500 MG ORAL EVERY 12 HOURS Cephalexin* (Keflex*), 500 MG ORAL EVERY 12 HOURS Cholecalciferol (Vitamin D3)* (Vitamin D*), 2,000 UNITS ORAL DAILY, (Reported) Cholestyramine (Cholestyramine Packet), 4 GM ORAL THREE TIMES A DAY Clotrimazole* (Lotrimin*), 1 APPLIC TOPIC TWICE A DAY, (Reported) Darunavir Ethanolate* (Prezista*), 600 MG ORAL EVERY 12 HOURS, (Reported) Darunavir Ethanolate* (Prezista*), 800 MG ORAL EVERY 12 HOURS, (Reported) Diltiazem Hcl* (Cardizem Cd*), 180 MG ORAL DAILY Dutasteride (Avodart), 0.5 MG ORAL DAILY, (Reported) Entecavir* (Baraclude*), 1 MG ORAL DAILY, (Reported) Etravirine* (Intelence*), 200 MG ORAL EVERY 12 HOURS, (Reported) Fidaxomicin (Dificid), 200 MG ORAL EVERY 12 HOURS Finasteride (Finasteride), 5 MG ORAL DAILY Finasteride* (Proscar*), 5 MG ORAL DAILY, (Reported) Gabapentin* (Gabapentin*), 600 MG ORAL THREE TIMES A DAY, (Reported) Hydrocortisone/Iodoquin/Aloe#2 (Alcortin A Gel), 48 GM TP QID, (Reported) Levothyroxine Sodium* (Levothyroxine Sodium*), 25 MCG ORAL DAILY, (Reported) Levothyroxine Sodium* (Synthroid*), 25 MCG ORAL DAILY@0630 Lorazepam* (Lorazepam*), 1 MG ORAL TWICE A DAY, (Reported) Losartan Potassium* (Losartan Potassium*), 50 MG ORAL DAILY, (Reported) Meloxicam* (Meloxicam*), 15 MG PO DAILY, (Reported) Methocarbamol (Methocarbamol), 500 MG PO Q6HR, (Reported) Metoprolol Tartrate* (Metoprolol Tartrate*), 25 MG ORAL EVERY 12 HOURS, ( Reported) Metronidazole* (Flagyl*), 500 MG ORAL Q8HR Mirtazapine* (Mirtazapine*), 15 MG ORAL BEDTIME, (Reported) Omeprazole (Omeprazole), 20 MG ORAL DAILY, (Reported) Oxycodone HCl/Acetaminophen (Percocet 10-325 mg Tablet), 1 EACH PO TID, ( Reported) Oxycodone Hcl/Acetaminophen (Endocet 10-325 Mg Tablet), 1 TAB ORAL Q4H, ( Reported) Paroxetine Hcl (Paroxetine Hcl), 40 MG ORAL DAILY, (Reported) Paroxetine Hcl* (Paxil*), 40 MG ORAL DAILY Raltegravir Potassium (Isentress), 400 MG ORAL TWICE A DAY, (Reported) Ritonavir* (Norvir*), 100 MG ORAL TWICE A DAY, (Reported) Tamsulosin HCl (Flomax), 0.4 MG ORAL BID Tamsulosin Hcl (Tamsulosin Hcl*), 0.4 MG ORAL BEDTIME, (Reported) Valacyclovir Hcl* (Valtrex*), 1,000 MG ORAL DAILY, (Reported) Vancomycin HCl (Vancomycin HCl), 125 MG ORAL FOUR TIMES A DAY Scheduled PRN Eszopiclone (Lunesta), 3 MG ORAL BEDTIME PRN for Insomnia, (Reported) Ondansetron Odt* (Zofran Odt*), 8 MG ORAL Q6H PRN for Nausea & Vomiting, ( Reported) Miscellaneous Medications Elviteg/Jihan/Emtric/Tenofo Ala (Genvoya Tablet), 1 EACH PO, (Reported) Mirabegron (Myrbetriq), 25 MG PO, (Reported) Oxybutynin Chloride (Oxybutynin Chloride), 10 MG PO, (Reported) Simethicone (Gas Relief), 125 MG PO, (Reported) Unable to Obtain Medications (Unable To Obtain Meds), (Reported) Patient History Healthcare decision maker N Resuscitation status Advanced Directive on File Past Medical/Surgical History Past Medical/Surgical History: (1) Hypothyroidism (2) History of rectal cancer (3) C. difficile colitis (4) BPH (benign prostatic hyperplasia) (5) Severe protein-calorie malnutrition (6) HIV (human immunodeficiency virus infection) (7) ATN (acute tubular necrosis) Review of Systems Endocrine: Reports: no symptoms Hematologic/Lymphatic: Reports: no symptoms Physical Exam General Appearance: WD/WN, alert Lines, tubes and drains: peripheral HEENT: normocephalic, atraumatic Neck: non-tender, normal alignment Respiratory/Chest: chest wall non-tender, normal breath sounds Breasts: no masses Cardiovascular/Chest: normal peripheral pulses Abdomen: normal bowel sounds Genitourinary/Rectal: normal genital exam Last 24 Hour Vital Signs Date Time Temp Pulse Resp B/P (MAP) Pulse Ox O2 Delivery O2 Flow Rate FiO2 02/11/19 16:20 98.3 115 23 148/97 (114) 2 02/11/19 16:00 120 02/11/19 12:12 98.6 111 24 147/100 (116) 95 02/11/19 12:00 94 02/11/19 09:00 Nasal Cannula 2.0 02/11/19 08:31 98 164/85 02/11/19 08:00 98.8 98 24 164/85 (111) 93 02/11/19 08:00 85 02/11/19 08:00 98 02/11/19 04:00 85 02/11/19 04:00 98.9 86 18 145/83 (103) 95 02/11/19 00:00 92 02/11/19 00:00 98.8 90 18 143/80 (101) 96 02/10/19 21:09 99.4 02/10/19 21:09 99.4 02/10/19 21:00 Nasal Cannula 2.0 02/10/19 20:44 Nasal Cannula 2.0 02/10/19 20:00 84 02/10/19 20:00 100.7 93 18 130/74 (92) 95 Intake and Output 02/10/19 02/11/19 18:59 06:59 Intake Total 4000 ml Output Total 875 ml Balance 4000 ml -875 ml Intake IV Total 4000 ml Output Urine Total 875 ml # Voids 1 1 # Bowel Movements 2 Laboratory Tests Test 02/11/19 06:20 White Blood Count 11.6 K/UL (4.8-10.8) #H Red Blood Count 4.07 M/UL (4.70-6.10) L Hemoglobin 12.4 G/DL (14.2-18.0) L Hematocrit 37.2 % (42.0-52.0) L Mean Corpuscular Volume 91 FL (80-99) Mean Corpuscular Hemoglobin 30.4 PG (27.0-31.0) Mean Corpuscular Hemoglobin Concent 33.3 G/DL (32.0-36.0) Red Cell Distribution Width 13.3 % (11.6-14.8) Platelet Count 148 K/UL (150-450) L Mean Platelet Volume 8.0 FL (6.5-10.1) Neutrophils (%) (Auto) 70.1 % (45.0-75.0) Lymphocytes (%) (Auto) 22.7 % (20.0-45.0) Monocytes (%) (Auto) 6.5 % (1.0-10.0) Eosinophils (%) (Auto) 0.3 % (0.0-3.0) Basophils (%) (Auto) 0.4 % (0.0-2.0) Sodium Level 140 MMOL/L (136-145) Potassium Level 3.5 MMOL/L (3.5-5.1) Chloride Level 109 MMOL/L (98-107) H Carbon Dioxide Level 23 MMOL/L (21-32) Anion Gap 8 mmol/L (5-15) Blood Urea Nitrogen 15 mg/dL (7-18) Creatinine 1.0 MG/DL (0.55-1.30) Estimat Glomerular Filtration Rate > 60 mL/min (>60) Glucose Level 102 MG/DL (74-106) Calcium Level 8.7 MG/DL (8.5-10.1) Total Bilirubin 0.8 MG/DL (0.2-1.0) Aspartate Amino Transf (AST/SGOT) 45 U/L (15-37) H Alanine Aminotransferase (ALT/SGPT) 23 U/L (12-78) Alkaline Phosphatase 97 U/L (46-116) Troponin I 0.006 ng/mL (0.000-0.056) Total Protein 7.8 G/DL (6.4-8.2) Albumin 3.2 G/DL (3.4-5.0) L Globulin 4.6 g/dL Albumin/Globulin Ratio 0.7 (1.0-2.7) L Triglycerides Level 151 MG/DL (30-150) H Cholesterol Level 153 MG/DL (< 200) LDL Cholesterol 81 mg/dL (<100) HDL Cholesterol 45 MG/DL (40-60) Cholesterol/HDL Ratio 3.4 (3.3-4.4) Thyroid Stimulating Hormone (TSH) 0.834 uiU/mL (0.358-3.740) Height (Feet): 5 Height (Inches): 7.00 Weight (Pounds): 150 Medications Current Medications Medications (Trade) Dose Ordered Sig/Roman Route PRN Reason Start Time Stop Time Status Last Admin Dose Admin Acetaminophen (Tylenol) 650 mg Q4H PRN ORAL fever 02/10/19 14:00 03/12/19 13:59 02/10/19 20:39 Amlodipine Besylate (Norvasc) 10 mg DAILY ORAL 02/11/19 09:00 03/13/19 08:59 02/11/19 08:31 Dextrose (Dextrose 50%) 25 ml Q30M PRN IV Hypoglycemia 02/10/19 14:15 03/12/19 14:05 Dextrose (Dextrose 50%) 50 ml Q30M PRN IV hypoglycemia 02/10/19 14:15 03/12/19 14:14 Gabapentin (Neurontin) 600 mg THREE TIMES A DAY ORAL 02/10/19 18:00 03/12/19 17:59 02/11/19 17:27 Levothyroxine Sodium (Synthroid) 25 mcg DAILY@0630 ORAL 02/11/19 06:30 03/13/19 06:29 02/11/19 05:35 Lorazepam (Ativan 2mg/ml 1ml) 0.5 mg Q4H PRN IV For Anxiety 02/10/19 14:00 02/17/19 13:59 Mirtazapine (Remeron) 15 mg BEDTIME ORAL 02/10/19 21:00 03/12/19 20:59 02/10/19 20:07 Morphine Sulfate (Morphine Sulfate) 1 mg Q4H PRN IVP For Pain 02/10/19 14:00 02/17/19 13:59 02/11/19 08:31 Ondansetron HCl (Zofran) 4 mg Q6H PRN IVP Nausea & Vomiting 02/10/19 14:00 03/12/19 13:59 Paroxetine HCl (Paxil) 40 mg DAILY ORAL 02/11/19 09:00 03/13/19 08:59 02/11/19 08:30 Polyethylene Glycol (Miralax) 17 gm HSPRN PRN ORAL Constipation 02/10/19 14:00 03/12/19 13:59 Tamsulosin HCl (Flomax) 0.4 mg BID ORAL 02/10/19 18:00 03/12/19 17:59 02/11/19 17:27 Zolpidem Tartrate (Ambien) 5 mg HSPRN PRN ORAL Insomnia 02/10/19 14:00 02/17/19 13:59 Assessment/Plan Problem List: (1) Sepsis ICD Codes: A41.9 - Sepsis, unspecified organism SNOMED: 65209061 (2) Febrile illness, acute ICD Codes: R50.9 - Fever, unspecified SNOMED: 311516123 (3) HIV (human immunodeficiency virus infection) ICD Codes: B20 - Human immunodeficiency virus [HIV] disease SNOMED: 59618623 (4) Severe protein-calorie malnutrition ICD Codes: E43 - Unspecified severe protein-calorie malnutrition SNOMED: 072590162 (5) Degenerative disc disease SNOMED: 42798043 (6) BPH (benign prostatic hyperplasia) ICD Codes: N40.0 - Benign prostatic hyperplasia without lower urinary tract symptoms SNOMED: 066126728 (7) History of rectal cancer ICD Codes: Z85.048 - Personal history of other malignant neoplasm of rectum, rectosigmoid junction, and anus SNOMED: 384169549 Assessment/Plan: mehta culture iv abx check stool antiemetics dvt prophylaxis ID to see symptomatic treatment. Oliverio Rm MD Feb 11, 2019 19:24
--- NOTE | 2019-02-11 19:35 | NUR ---
HAND-OFF: Report given to Jaqueline Brady. Plan of care endorsed.
--- NOTE | 2019-02-11 19:50 | NUR ---
NURSE NOTES: Received pt from CHARLEY Wong. Pt awake, alert, and talkative. Bed in lowest position. Call light within reach. Will continue to monitor
--- NOTE | 2019-02-11 21:00 | NUR ---
NURSE NOTES: Called and left a message with Dr. Barragan regarding pts request for immodium and zantac. Awaiting call back.
[2019-02-11 21:08] VITALS: BP 152/94
[2019-02-12] VITALS: BP 149/88
[2019-02-12 04:00] VITALS: BP 155/96
[2019-02-12] MEDS: Levothyroxine 25mcg tab ORAL SCH (05:54)
--- NOTE | 2019-02-12 06:04 | NUR ---
NURSE NOTES: Called and left a message with Dr. Barragan regarding pts episode of brown emesis, up to 60 cc's output. Zofran was given. pt unable to take pills. Awaiting call back.
--- NOTE | 2019-02-12 07:12 | NUR ---
NURSE NOTES: Received report from CHARLEY Brady. Patient is resting in bed, in stable condition. No s/sx of SOB, breathing is even and unlabored. Per report, patient had x 1 brownish emesis, Dr. Barragan was informed and new orders given. Patient received Zofran. Denies any presence of pain or discomfort at this time. Bed is in lowest position, brakes engaged. Call light is kept within easy reach. Will continue to monitor patient.
--- NOTE | 2019-02-12 07:27 | NUR ---
HAND-OFF: Report given to CHARLEY Nava. Pt stable.
[2019-02-12 07:52] LABS: BASOPHILS % (AUTO) 0.2 % (0.0-2.0); EOSINOPHILS % (AUTO) 0.1 % (0.0-3.0); HEMATOCRIT 44.9 % (42.0-52.0); HEMOGLOBIN 14.9 G/DL (14.2-18.0); LYMPHOCYTES % (AUTO) 19.1 % (20.0-45.0); MEAN CORPUSCULAR VOLUME 91 FL (80-99); MONOCYTES % (AUTO) 5.5 % (1.0-10.0); PLATELET COUNT 205 K/UL (150-450); RED BLOOD COUNT 4.91 M/UL (4.70-6.10); RED CELL DISTRIBUTION WIDTH 12.7 % (11.6-14.8); WHITE BLOOD COUNT 11.6 K/UL (4.8-10.8)
[2019-02-12 08:00] VITALS: BP 157/89
[2019-02-12 08:08] LABS: ANION GAP 15 mmol/L (5-15); BLOOD UREA NITROGEN 34 mg/dL (7-18); CALCIUM 9.5 MG/DL (8.5-10.1); CARBON DIOXIDE 23 MMOL/L (21-32); CHLORIDE 106 MMOL/L (98-107); CREATININE 1.2 MG/DL (0.55-1.30); SODIUM 144 MMOL/L (136-145)
--- NOTE | 2019-02-12 08:59 | Cardiac Electrophysiology PN ---
Subjective Subjective [id number] Objective Last 24 Hour Vital Signs Date Time Temp Pulse Resp B/P (MAP) Pulse Ox O2 Delivery O2 Flow Rate FiO2 02/12/19 04:00 98.5 115 17 155/96 (115) 91 02/12/19 04:00 118 02/12/19 00:00 98.6 111 20 149/88 (108) 92 02/12/19 00:00 120 02/11/19 21:08 98.3 109 18 152/94 (113) 93 02/11/19 21:00 Nasal Cannula 2.0 02/11/19 20:00 94 02/11/19 16:20 98.3 115 23 148/97 (114) 2 02/11/19 16:00 120 02/11/19 12:12 98.6 111 24 147/100 (116) 95 02/11/19 12:00 94 02/11/19 09:00 Nasal Cannula 2.0 Intake and Output 02/11/19 02/12/19 19:00 07:00 Intake Total 360 ml Output Total 300 ml 50 ml Balance -300 ml 310 ml Intake Oral 360 ml Output Urine Total 300 ml Other 50 ml # Voids 3 # Bowel Movements 2 Laboratory Tests Test 02/12/19 06:24 White Blood Count 11.6 K/UL (4.8-10.8) H Red Blood Count 4.91 M/UL (4.70-6.10) Hemoglobin 14.9 G/DL (14.2-18.0) Hematocrit 44.9 % (42.0-52.0) Mean Corpuscular Volume 91 FL (80-99) Mean Corpuscular Hemoglobin 30.3 PG (27.0-31.0) Mean Corpuscular Hemoglobin Concent 33.1 G/DL (32.0-36.0) Red Cell Distribution Width 12.7 % (11.6-14.8) Platelet Count 205 K/UL (150-450) Mean Platelet Volume 8.2 FL (6.5-10.1) Neutrophils (%) (Auto) 75.0 % (45.0-75.0) Lymphocytes (%) (Auto) 19.1 % (20.0-45.0) L Monocytes (%) (Auto) 5.5 % (1.0-10.0) Eosinophils (%) (Auto) 0.1 % (0.0-3.0) Basophils (%) (Auto) 0.2 % (0.0-2.0) Sodium Level 144 MMOL/L (136-145) Potassium Level 3.0 MMOL/L (3.5-5.1) L Chloride Level 106 MMOL/L (98-107) Carbon Dioxide Level 23 MMOL/L (21-32) Anion Gap 15 mmol/L (5-15) Blood Urea Nitrogen 34 mg/dL (7-18) H Creatinine 1.2 MG/DL (0.55-1.30) Estimat Glomerular Filtration Rate 59.9 mL/min (>60) Glucose Level 123 MG/DL (74-106) H Calcium Level 9.5 MG/DL (8.5-10.1) Microbiology Date/Time Source Procedure Growth Status 02/10/19 07:15 Blood Blood Culture - Preliminary NO GROWTH AFTER 24 HOURS Resulted 02/10/19 07:10 Blood Blood Culture - Preliminary NO GROWTH AFTER 24 HOURS Resulted 02/10/19 10:00 Rectum VRE Culture - Final Enterococcus Faecalis - Vre Complete 02/10/19 10:00 Rectum Received Abel Mendez MD Feb 12, 2019 08:59
[2019-02-12] MEDS: PARoxetine 20mg tab ORAL SCH (09:00)
[2019-02-12] MEDS: Tamsulosin 0.4mg cap ORAL SCH ×2 (09:00→17:45)
--- NOTE | 2019-02-12 09:05 | NUR ---
PT NOTE Received MD order for PT evaluation, medical record reviewed. Elijah WHITEHEAD requesting to defer PT evaluation today as patient with vomiting and increased HR to 150 bpm. Will follow.
[2019-02-12] MEDS: Metoclopramide 10mg/2ml Inj IVP PRN (09:13)
--- NOTE | 2019-02-12 09:15 | NUR ---
NURSE NOTES: Dr. Mendez seen and examined patient. aware of HR 150 bpm, MD SARGENT norvasc and started patient on cardizem. MD aware of potassium level of 3.0. MD acknowledged and ordered potassium chloride 10 mEq IV x 4 and BMP tomorrow AM. Orders entered, noted, and carried out. Will continue to monitor patient.
--- NOTE | 2019-02-12 09:45 | CDS Physician Query ---
Clarification is required for compliance, coding accuracy, and to reflect severity of illness for this patient Dear Dr. Barragan Date: 02/12/19 [employer]/CDS Name: Tiffany Cazares Clarification is needed for one (or more) of the following conditions in order to accurately assign the "present on admission' indicator. Please choose the answer that best indicates whether the associated condition was present at the time of the order for inpatient admission. Thank you. DIAGNOSIS:Sepsis Was the sepsis Present on admission? [ ] YES [ ] NO [ ] Clinically Undeterminable Physician signature Date Please also document in your Progress Notes and/or Discharge Summary and indicate if the condition was present on admission. FLOYDD
--- NOTE | 2019-02-12 09:58 | CDS Physician Query ---
Clarification is required for compliance, coding accuracy, and to reflect severity of illness for this patient Dear Dr. Barragan Date: 02/12/19 [employer]/CDS Name: Tiffany Cazares Clarification is needed for one (or more) of the following conditions in order to accurately assign the "present on admission' indicator. Please choose the answer that best indicates whether the associated condition was present at the time of the order for inpatient admission. Thank you. DIAGNOSIS: Sepsis Was the Sepsis Present on admission? YES NO Clinically Undeterminable Physician signature Date Please also document in your Progress Notes and/or Discharge Summary and indicate if the condition was present on admission. RENEE
[2019-02-12] MEDS ORDERED: Sodium Chloride for KCL Premix X 4hrs IV SCH (10:00)
[2019-02-12] MEDS: Morphine Sulfate 2mg/ml Inj(IV/IM USE ONLY) IVP PRN ×2 (10:02→14:39)
--- NOTE | 2019-02-12 10:50 | NUR ---
*-* NO INSURANCE INFORMATION IN THE BAR UNABLE TO SEND CLINICALS OR REVIEWS *-*
--- NOTE | 2019-02-12 11:04 | Pulmonology Progress Note ---
Assessment/Plan Problems: (1) Sepsis (2) Febrile illness, acute (3) Atrial fibrillation (4) History of rectal cancer (5) BPH (benign prostatic hyperplasia) (6) Degenerative disc disease (7) Severe protein-calorie malnutrition (8) HIV (human immunodeficiency virus infection) Assessment/Plan f/u cultures continue abx check electrolytes watch the heart rate Subjective ROS Limited/Unobtainable: No HEENT: Repors: no symptoms Respiratory: Reports: no symptoms Allergies: Coded Allergies: CODEINE (Unverified Allergy, Unknown, 11/28/17) EMTRICITABINE (Verified Allergy, Unknown, anxiousness, 08/31/18) SULFAMETHOXAZOLE (Unverified Allergy, Unknown, 10/27/17) TENOFOVIR (Verified Allergy, Unknown, anxiousness, 08/31/18) TRIMETHOPRIM (Unverified Allergy, Unknown, 10/27/17) Objective Last 24 Hour Vital Signs Date Time Temp Pulse Resp B/P (MAP) Pulse Ox O2 Delivery O2 Flow Rate FiO2 02/12/19 09:00 Nasal Cannula 2.0 02/12/19 08:00 97.9 119 17 157/89 (111) 91 02/12/19 08:00 116 02/12/19 04:00 98.5 115 17 155/96 (115) 91 02/12/19 04:00 118 02/12/19 00:00 98.6 111 20 149/88 (108) 92 02/12/19 00:00 120 02/11/19 21:08 98.3 109 18 152/94 (113) 93 02/11/19 21:00 Nasal Cannula 2.0 02/11/19 20:00 94 02/11/19 16:20 98.3 115 23 148/97 (114) 2 02/11/19 16:00 120 02/11/19 12:12 98.6 111 24 147/100 (116) 95 02/11/19 12:00 94 Intake and Output 02/11/19 02/12/19 19:00 07:00 Intake Total 360 ml Output Total 300 ml 50 ml Balance -300 ml 310 ml Intake Oral 360 ml Output Urine Total 300 ml Other 50 ml # Voids 3 # Bowel Movements 2 General Appearance: cachetic HEENT: normocephalic, atraumatic Respiratory/Chest: chest wall non-tender, lungs clear Cardiovascular: normal peripheral pulses, regular rhythm Abdomen: normal bowel sounds, soft, non tender, no organomegaly, non distended Microbiology Date/Time Source Procedure Growth Status 02/10/19 07:15 Blood Blood Culture - Preliminary NO GROWTH AFTER 24 HOURS Resulted 02/10/19 07:10 Blood Blood Culture - Preliminary NO GROWTH AFTER 24 HOURS Resulted 02/10/19 10:00 Nasal Nares MRSA Culture - Final NO METHICILLIN RESISTANT STAPH AUREUS... Complete 02/10/19 10:00 Rectum VRE Culture - Final Enterococcus Faecalis - Vre Complete 02/10/19 10:00 Rectum Received Laboratory Tests 02/12/19 06:24: White Blood Count 11.6H, Red Blood Count 4.91, Hemoglobin 14.9, Hematocrit 44.9 , Mean Corpuscular Volume 91, Mean Corpuscular Hemoglobin 30.3, Mean Corpuscular Hemoglobin Concent 33.1, Red Cell Distribution Width 12.7, Platelet Count 205, Mean Platelet Volume 8.2, Neutrophils (%) (Auto) 75.0, Lymphocytes (% ) (Auto) 19.1L, Monocytes (%) (Auto) 5.5, Eosinophils (%) (Auto) 0.1, Basophils (%) (Auto) 0.2, Sodium Level 144, Potassium Level 3.0L, Chloride Level 106, Carbon Dioxide Level 23, Anion Gap 15, Blood Urea Nitrogen 34H, Creatinine 1.2, Estimat Glomerular Filtration Rate 59.9, Glucose Level 123H, Calcium Level 9.5 Current Medications Medications (Trade) Dose Ordered Sig/Roman Route PRN Reason Start Time Stop Time Status Last Admin Dose Admin Acetaminophen (Tylenol) 650 mg Q4H PRN ORAL fever 02/10/19 14:00 03/12/19 13:59 02/10/19 20:39 Dextrose (Dextrose 50%) 25 ml Q30M PRN IV Hypoglycemia 02/10/19 14:15 03/12/19 14:05 Dextrose (Dextrose 50%) 50 ml Q30M PRN IV hypoglycemia 02/10/19 14:15 03/12/19 14:14 Diltiazem HCl (Cardizem) 60 mg EVERY 8 HOURS ORAL 02/12/19 14:00 03/14/19 13:59 Famotidine (Pepcid) 10 mg BID PRN ORAL heartburn 02/11/19 22:30 03/13/19 22:29 Gabapentin (Neurontin) 600 mg THREE TIMES A DAY ORAL 02/10/19 18:00 03/12/19 17:59 02/11/19 17:27 Levothyroxine Sodium (Synthroid) 25 mcg DAILY@0630 ORAL 02/11/19 06:30 03/13/19 06:29 02/11/19 05:35 Lorazepam (Ativan 2mg/ml 1ml) 0.5 mg Q4H PRN IV For Anxiety 02/10/19 14:00 02/17/19 13:59 Metoclopramide HCl (Reglan) 5 mg Q6H PRN IVP Nausea & Vomiting 02/12/19 07:30 03/14/19 07:29 02/12/19 09:13 Mirtazapine (Remeron) 15 mg BEDTIME ORAL 02/10/19 21:00 03/12/19 20:59 02/11/19 21:00 Morphine Sulfate (Morphine Sulfate) 1 mg Q4H PRN IVP For Pain 02/10/19 14:00 02/17/19 13:59 02/12/19 10:02 Paroxetine HCl (Paxil) 40 mg DAILY ORAL 02/11/19 09:00 03/13/19 08:59 02/11/19 08:30 Polyethylene Glycol (Miralax) 17 gm HSPRN PRN ORAL Constipation 02/10/19 14:00 03/12/19 13:59 Potassium Chloride 100 ml @ 100 mls/hr Q1H IVPB 02/12/19 10:00 02/12/19 13:59 02/12/19 09:51 Sodium Chloride 400 ml @ 100 mls/hr Q4H IV 02/12/19 10:00 02/12/19 13:59 02/12/19 09:51 Tamsulosin HCl (Flomax) 0.4 mg BID ORAL 02/10/19 18:00 03/12/19 17:59 02/11/19 17:27 Zolpidem Tartrate (Ambien) 5 mg HSPRN PRN ORAL Insomnia 02/10/19 14:00 02/17/19 13:59 Oliverio Rm MD Feb 12, 2019 11:04
[2019-02-12 12:00] VITALS: BP 155/97
--- NOTE | 2019-02-12 12:24 | NUR ---
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
--- NOTE | 2019-02-12 13:12 | Consultation ---
History of Present Illness General Date patient seen: Feb 12, 2019 Chief Complaint: Lower Extremity Injury Present Illness HPI 68 y/o M with hx of HIV (dx 1984), rectal CA, CVA 2004, former smoker, HTN, UTI 08/2018, Cdiff 09/2018, rectal cancer (undergoing work up at [facility]) presented to ED On 02/10 with abd pain, fever, chills and diarrhea. Also with lower extremity weakness Denied dysuria, vomiting, CP, SOB, cough. Allergies: Coded Allergies: CODEINE (Unverified Allergy, Unknown, 11/28/17) EMTRICITABINE (Verified Allergy, Unknown, anxiousness, 08/31/18) SULFAMETHOXAZOLE (Unverified Allergy, Unknown, 10/27/17) TENOFOVIR (Verified Allergy, Unknown, anxiousness, 08/31/18) TRIMETHOPRIM (Unverified Allergy, Unknown, 10/27/17) Medication History Scheduled Acetaminophen* (Tylenol Extra Strength*), 500 MG ORAL Q6H Alendronate Sodium* (Fosamax*), 70 MG ORAL ONCE A WEEK, (Reported) Amlodipine Besylate (Norvasc), 10 MG ORAL DAILY, (Reported) Amoxicillin/Potassium Clav 875-125* (Augmentin 875-125 Tablet*), 1 TAB ORAL DAILY, (Reported) Aspirin* (Aspir 81*), 81 MG ORAL DAILY, (Reported) Baclofen* (Baclofen*), 10 MG ORAL THREE TIMES A DAY, (Reported) Calcium Carbonate (Oysco-500), 500 MG PO DAILY, (Reported) Cephalexin* (Keflex*), 500 MG ORAL EVERY 12 HOURS Cephalexin* (Keflex*), 500 MG ORAL EVERY 12 HOURS Cholecalciferol (Vitamin D3)* (Vitamin D*), 2,000 UNITS ORAL DAILY, (Reported) Cholestyramine (Cholestyramine Packet), 4 GM ORAL THREE TIMES A DAY Clotrimazole* (Lotrimin*), 1 APPLIC TOPIC TWICE A DAY, (Reported) Darunavir Ethanolate* (Prezista*), 600 MG ORAL EVERY 12 HOURS, (Reported) Darunavir Ethanolate* (Prezista*), 800 MG ORAL EVERY 12 HOURS, (Reported) Diltiazem Hcl* (Cardizem Cd*), 180 MG ORAL DAILY Dutasteride (Avodart), 0.5 MG ORAL DAILY, (Reported) Entecavir* (Baraclude*), 1 MG ORAL DAILY, (Reported) Etravirine* (Intelence*), 200 MG ORAL EVERY 12 HOURS, (Reported) Fidaxomicin (Dificid), 200 MG ORAL EVERY 12 HOURS Finasteride (Finasteride), 5 MG ORAL DAILY Finasteride* (Proscar*), 5 MG ORAL DAILY, (Reported) Gabapentin* (Gabapentin*), 600 MG ORAL THREE TIMES A DAY, (Reported) Hydrocortisone/Iodoquin/Aloe#2 (Alcortin A Gel), 48 GM TP QID, (Reported) Levothyroxine Sodium* (Levothyroxine Sodium*), 25 MCG ORAL DAILY, (Reported) Levothyroxine Sodium* (Synthroid*), 25 MCG ORAL DAILY@0630 Lorazepam* (Lorazepam*), 1 MG ORAL TWICE A DAY, (Reported) Losartan Potassium* (Losartan Potassium*), 50 MG ORAL DAILY, (Reported) Meloxicam* (Meloxicam*), 15 MG PO DAILY, (Reported) Methocarbamol (Methocarbamol), 500 MG PO Q6HR, (Reported) Metoprolol Tartrate* (Metoprolol Tartrate*), 25 MG ORAL EVERY 12 HOURS, ( Reported) Metronidazole* (Flagyl*), 500 MG ORAL Q8HR Mirtazapine* (Mirtazapine*), 15 MG ORAL BEDTIME, (Reported) Omeprazole (Omeprazole), 20 MG ORAL DAILY, (Reported) Oxycodone HCl/Acetaminophen (Percocet 10-325 mg Tablet), 1 EACH PO TID, ( Reported) Oxycodone Hcl/Acetaminophen (Endocet 10-325 Mg Tablet), 1 TAB ORAL Q4H, ( Reported) Paroxetine Hcl (Paroxetine Hcl), 40 MG ORAL DAILY, (Reported) Paroxetine Hcl* (Paxil*), 40 MG ORAL DAILY Raltegravir Potassium (Isentress), 400 MG ORAL TWICE A DAY, (Reported) Ritonavir* (Norvir*), 100 MG ORAL TWICE A DAY, (Reported) Tamsulosin HCl (Flomax), 0.4 MG ORAL BID Tamsulosin Hcl (Tamsulosin Hcl*), 0.4 MG ORAL BEDTIME, (Reported) Valacyclovir Hcl* (Valtrex*), 1,000 MG ORAL DAILY, (Reported) Vancomycin HCl (Vancomycin HCl), 125 MG ORAL FOUR TIMES A DAY Scheduled PRN Eszopiclone (Lunesta), 3 MG ORAL BEDTIME PRN for Insomnia, (Reported) Ondansetron Odt* (Zofran Odt*), 8 MG ORAL Q6H PRN for Nausea & Vomiting, ( Reported) Miscellaneous Medications Elviteg/Jihan/Emtric/Tenofo Ala (Genvoya Tablet), 1 EACH PO, (Reported) Mirabegron (Myrbetriq), 25 MG PO, (Reported) Oxybutynin Chloride (Oxybutynin Chloride), 10 MG PO, (Reported) Simethicone (Gas Relief), 125 MG PO, (Reported) Unable to Obtain Medications (Unable To Obtain Meds), (Reported) Patient History Healthcare decision maker N Resuscitation status Advanced Directive on File Patient History Narrative Pmhx: as above Shx: Former smoker, quit drinking in the , denies drug use Fhx: non contributory Review of Systems All Other Systems: negative except mentioned in HPI Physical Exam Physical Exam Narrative GENERAL: The patient is a thin-appearing white male, in no apparent distress. HEENT: Eyes, pupils are equal and responsive to light and accommodation. Extraocular movements are intact. NECK: Supple without lymphadenopathy. CHEST: Lungs are clear to auscultation bilaterally without wheezes or rales. CARDIOVASCULAR: Regular rhythm and rate. S1 and S2 are normal without murmurs, rubs, or gallops. ABDOMEN: Soft, nontender, and nondistended. Positive bowel sounds. No evidence of hepatosplenomegaly. Currently, no rebound or guarding noted. EXTREMITIES: Negative for clubbing, cyanosis, or edema. NEUROLOGIC: Cranial nerves II through XII are grossly intact without focal deficits. Last 24 Hour Vital Signs Date Time Temp Pulse Resp B/P (MAP) Pulse Ox O2 Delivery O2 Flow Rate FiO2 02/12/19 09:00 Nasal Cannula 2.0 02/12/19 08:00 97.9 119 17 157/89 (111) 91 02/12/19 08:00 116 02/12/19 04:00 98.5 115 17 155/96 (115) 91 02/12/19 04:00 118 02/12/19 00:00 98.6 111 20 149/88 (108) 92 02/12/19 00:00 120 02/11/19 21:08 98.3 109 18 152/94 (113) 93 02/11/19 21:00 Nasal Cannula 2.0 02/11/19 20:00 94 02/11/19 16:20 98.3 115 23 148/97 (114) 2 02/11/19 16:00 120 Intake and Output 02/11/19 02/12/19 19:00 07:00 Intake Total 360 ml Output Total 300 ml 50 ml Balance -300 ml 310 ml Intake Oral 360 ml Output Urine Total 300 ml Other 50 ml # Voids 3 # Bowel Movements 2 Laboratory Tests Test 02/12/19 06:24 White Blood Count 11.6 K/UL (4.8-10.8) H Red Blood Count 4.91 M/UL (4.70-6.10) Hemoglobin 14.9 G/DL (14.2-18.0) Hematocrit 44.9 % (42.0-52.0) Mean Corpuscular Volume 91 FL (80-99) Mean Corpuscular Hemoglobin 30.3 PG (27.0-31.0) Mean Corpuscular Hemoglobin Concent 33.1 G/DL (32.0-36.0) Red Cell Distribution Width 12.7 % (11.6-14.8) Platelet Count 205 K/UL (150-450) Mean Platelet Volume 8.2 FL (6.5-10.1) Neutrophils (%) (Auto) 75.0 % (45.0-75.0) Lymphocytes (%) (Auto) 19.1 % (20.0-45.0) L Monocytes (%) (Auto) 5.5 % (1.0-10.0) Eosinophils (%) (Auto) 0.1 % (0.0-3.0) Basophils (%) (Auto) 0.2 % (0.0-2.0) Sodium Level 144 MMOL/L (136-145) Potassium Level 3.0 MMOL/L (3.5-5.1) L Chloride Level 106 MMOL/L (98-107) Carbon Dioxide Level 23 MMOL/L (21-32) Anion Gap 15 mmol/L (5-15) Blood Urea Nitrogen 34 mg/dL (7-18) H Creatinine 1.2 MG/DL (0.55-1.30) Estimat Glomerular Filtration Rate 59.9 mL/min (>60) Glucose Level 123 MG/DL (74-106) H Calcium Level 9.5 MG/DL (8.5-10.1) Height (Feet): 5 Height (Inches): 7.00 Weight (Pounds): 150 Medications Current Medications Medications (Trade) Dose Ordered Sig/Roman Route PRN Reason Start Time Stop Time Status Last Admin Dose Admin Acetaminophen (Tylenol) 650 mg Q4H PRN ORAL fever 02/10/19 14:00 03/12/19 13:59 02/10/19 20:39 Dextrose (Dextrose 50%) 25 ml Q30M PRN IV Hypoglycemia 02/10/19 14:15 03/12/19 14:05 Dextrose (Dextrose 50%) 50 ml Q30M PRN IV hypoglycemia 02/10/19 14:15 03/12/19 14:14 Diltiazem HCl (Cardizem) 60 mg EVERY 8 HOURS ORAL 02/12/19 14:00 03/14/19 13:59 Famotidine (Pepcid) 10 mg BID PRN ORAL heartburn 02/11/19 22:30 03/13/19 22:29 Gabapentin (Neurontin) 600 mg THREE TIMES A DAY ORAL 02/10/19 18:00 03/12/19 17:59 02/11/19 17:27 Levothyroxine Sodium (Synthroid) 25 mcg DAILY@0630 ORAL 02/11/19 06:30 03/13/19 06:29 02/11/19 05:35 Lorazepam (Ativan 2mg/ml 1ml) 0.5 mg Q4H PRN IV For Anxiety 02/10/19 14:00 02/17/19 13:59 Metoclopramide HCl (Reglan) 5 mg Q6H PRN IVP Nausea & Vomiting 02/12/19 07:30 03/14/19 07:29 02/12/19 09:13 Mirtazapine (Remeron) 15 mg BEDTIME ORAL 02/10/19 21:00 03/12/19 20:59 02/11/19 21:00 Morphine Sulfate (Morphine Sulfate) 1 mg Q4H PRN IVP For Pain 02/10/19 14:00 02/17/19 13:59 02/12/19 10:02 Paroxetine HCl (Paxil) 40 mg DAILY ORAL 02/11/19 09:00 03/13/19 08:59 02/11/19 08:30 Polyethylene Glycol (Miralax) 17 gm HSPRN PRN ORAL Constipation 02/10/19 14:00 03/12/19 13:59 Potassium Chloride 100 ml @ 100 mls/hr Q1H IVPB 02/12/19 10:00 02/12/19 13:59 02/12/19 12:11 Sodium Chloride 400 ml @ 100 mls/hr Q4H IV 02/12/19 10:00 02/12/19 13:59 02/12/19 09:51 Tamsulosin HCl (Flomax) 0.4 mg BID ORAL 02/10/19 18:00 03/12/19 17:59 02/11/19 17:27 Zolpidem Tartrate (Ambien) 5 mg HSPRN PRN ORAL Insomnia 02/10/19 14:00 02/17/19 13:59 Assessment/Plan Assessment/Plan: Abx: IV Vancomycin x1 02/10 Zosyn x1 02/10 Assessment: Sepsis- ?source :? intrabdominal- r/o bacteremia -CXR: Bibasilar opacities likely representing subsegmental atelectasis. -u/a neg hx of Cdiff 09/2018- - failed oral vancomycin; sp tx w/ Fidaxomicin --09/06 Cdiff toxin a/b +; repeat Cdiff neg x2 -09/06 SP Colonoscopy: proctitis -stool cx: normal thomas -Giardia ag, cryptosporidium neg Hx of UTI 08/2018 -u/a wbc 10-15, shirley neg, leuk +3; ucx >100K PROTEUS MIRABILIS ( I Levo; R Amp, bactrim, Cipro, Nitro; S Ceftriaxone) HIV/AIDS- on ARV -11/19 CD4 392 (17.4%) -09/2018 182 (10.1%), VL UD -11/2017 CD4 323 Rectal CA (ongoing w/u at [facility]) CVA 2005 HTN Plan: -Resume empiric IV Vancomycn and Zosyn #2 -12/01 Sp Cefepime #14, Flagyl #14 -11/22 SP IV Vancomycin #6 -11/17 SP Zosyn x1 -09/23 SP Fidaxomicin #10 -// SP PO Vancomycin #8 -f/u cx -Monitor CBC/CMP, temperatures -CT ch/abd/p w/ -CD4 -Cdiff if diarrhea Thank you for this consultation. Will continue to follow along with you. Discussed with Miranda Griffiths M.D. Feb 12, 2019 13:12
[2019-02-12] MEDS: dilTIAZem HCl 60mg tab ORAL SCH ×2 (13:15→21:46)
[2019-02-12] MEDS ORDERED: Isovue-300 100ml vial INJ PRN (13:15)
--- NOTE | 2019-02-12 13:28 | Internal Med Progress Note ---
Subjective Date of Service: Feb 12, 2019 Physician Name Trey Whitaker Attending Physician Carlos Barragan MD Current Medications Medications (Trade) Dose Ordered Sig/Roman Route PRN Reason Start Time Stop Time Status Last Admin Dose Admin Acetaminophen (Tylenol) 650 mg Q4H PRN ORAL fever 02/10/19 14:00 03/12/19 13:59 02/10/19 20:39 Barium Sulfate (Readi-Cat 2) 450 ml NOW PRN ORAL Radiology Procedure 02/12/19 13:15 02/14/19 13:09 UNV Dextrose (Dextrose 50%) 25 ml Q30M PRN IV Hypoglycemia 02/10/19 14:15 03/12/19 14:05 Dextrose (Dextrose 50%) 50 ml Q30M PRN IV hypoglycemia 02/10/19 14:15 03/12/19 14:14 Diltiazem HCl (Cardizem) 60 mg EVERY 8 HOURS ORAL 02/12/19 14:00 03/14/19 13:59 02/12/19 13:15 Famotidine (Pepcid) 10 mg BID PRN ORAL heartburn 02/11/19 22:30 03/13/19 22:29 Gabapentin (Neurontin) 600 mg THREE TIMES A DAY ORAL 02/10/19 18:00 03/12/19 17:59 02/11/19 17:27 Iopamidol (Isovue-300 100ml) 100 ml NOW PRN INJ Radiology Procedure 02/12/19 13:15 UNV Levothyroxine Sodium (Synthroid) 25 mcg DAILY@0630 ORAL 02/11/19 06:30 03/13/19 06:29 02/11/19 05:35 Lorazepam (Ativan 2mg/ml 1ml) 0.5 mg Q4H PRN IV For Anxiety 02/10/19 14:00 02/17/19 13:59 Metoclopramide HCl (Reglan) 5 mg Q6H PRN IVP Nausea & Vomiting 02/12/19 07:30 03/14/19 07:29 02/12/19 09:13 Mirtazapine (Remeron) 15 mg BEDTIME ORAL 02/10/19 21:00 03/12/19 20:59 02/11/19 21:00 Morphine Sulfate (Morphine Sulfate) 1 mg Q4H PRN IVP For Pain 02/10/19 14:00 02/17/19 13:59 02/12/19 10:02 Paroxetine HCl (Paxil) 40 mg DAILY ORAL 02/11/19 09:00 03/13/19 08:59 02/11/19 08:30 Piperacillin Sod/ Tazobactam Sod 3.375 gm/Sodium Chloride 110 ml @ 27.5 mls/hr EVERY 8 HOURS IVPB 02/12/19 14:00 02/17/19 13:59 UNV Polyethylene Glycol (Miralax) 17 gm HSPRN PRN ORAL Constipation 02/10/19 14:00 03/12/19 13:59 Potassium Chloride 100 ml @ 100 mls/hr Q1H IVPB 02/12/19 10:00 02/12/19 13:59 02/12/19 12:11 Sodium Chloride 400 ml @ 100 mls/hr Q4H IV 02/12/19 10:00 02/12/19 13:59 02/12/19 09:51 Tamsulosin HCl (Flomax) 0.4 mg BID ORAL 02/10/19 18:00 03/12/19 17:59 02/11/19 17:27 Vancomycin HCl (Vanco rx to dose) 1 ea DAILY PRN MISC Per rx protocol 02/12/19 13:15 03/14/19 13:14 UNV Zolpidem Tartrate (Ambien) 5 mg HSPRN PRN ORAL Insomnia 02/10/19 14:00 02/17/19 13:59 Allergies: Coded Allergies: CODEINE (Unverified Allergy, Unknown, 11/28/17) EMTRICITABINE (Verified Allergy, Unknown, anxiousness, 08/31/18) SULFAMETHOXAZOLE (Unverified Allergy, Unknown, 10/27/17) TENOFOVIR (Verified Allergy, Unknown, anxiousness, 08/31/18) TRIMETHOPRIM (Unverified Allergy, Unknown, 10/27/17) ROS Limited/Unobtainable: No Constitutional: Reports: weakness HEENT: Reports: no symptoms Cardiovascular: Reports: no symptoms Respiratory: Reports: no symptoms Gastrointestinal/Abdominal: Reports: no symptoms Genitourinary: Reports: no symptoms 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: Reports: no symptoms Subjective 68 YO M admitted with gen weakness. Cover for Int Arun-Dr Barragan Objective Last Vital Signs Date Time Temp Pulse Resp B/P (MAP) Pulse Ox O2 Delivery O2 Flow Rate FiO2 02/12/19 13:15 114 155/97 02/12/19 12:00 98.1 17 93 02/12/19 09:00 Nasal Cannula 2.0 Laboratory Tests Test 02/12/19 06:24 White Blood Count 11.6 K/UL (4.8-10.8) H Red Blood Count 4.91 M/UL (4.70-6.10) Hemoglobin 14.9 G/DL (14.2-18.0) Hematocrit 44.9 % (42.0-52.0) Mean Corpuscular Volume 91 FL (80-99) Mean Corpuscular Hemoglobin 30.3 PG (27.0-31.0) Mean Corpuscular Hemoglobin Concent 33.1 G/DL (32.0-36.0) Red Cell Distribution Width 12.7 % (11.6-14.8) Platelet Count 205 K/UL (150-450) Mean Platelet Volume 8.2 FL (6.5-10.1) Neutrophils (%) (Auto) 75.0 % (45.0-75.0) Lymphocytes (%) (Auto) 19.1 % (20.0-45.0) L Monocytes (%) (Auto) 5.5 % (1.0-10.0) Eosinophils (%) (Auto) 0.1 % (0.0-3.0) Basophils (%) (Auto) 0.2 % (0.0-2.0) Sodium Level 144 MMOL/L (136-145) Potassium Level 3.0 MMOL/L (3.5-5.1) L Chloride Level 106 MMOL/L (98-107) Carbon Dioxide Level 23 MMOL/L (21-32) Anion Gap 15 mmol/L (5-15) Blood Urea Nitrogen 34 mg/dL (7-18) H Creatinine 1.2 MG/DL (0.55-1.30) Estimat Glomerular Filtration Rate 59.9 mL/min (>60) Glucose Level 123 MG/DL (74-106) H Calcium Level 9.5 MG/DL (8.5-10.1) Microbiology Date/Time Source Procedure Growth Status 02/10/19 07:15 Blood Blood Culture - Preliminary NO GROWTH AFTER 24 HOURS Resulted 02/10/19 07:10 Blood Blood Culture - Preliminary NO GROWTH AFTER 24 HOURS Resulted 02/10/19 10:00 Nasal Nares MRSA Culture - Final NO METHICILLIN RESISTANT STAPH AUREUS... Complete 02/10/19 10:00 Rectum VRE Culture - Final Enterococcus Faecalis - Vre Complete 02/10/19 10:00 Rectum Received Intake and Output 02/11/19 02/12/19 19:00 07:00 Intake Total 360 ml Output Total 300 ml 50 ml Balance -300 ml 310 ml Intake Oral 360 ml Output Urine Total 300 ml Other 50 ml # Voids 3 # Bowel Movements 2 Objective PHYSICAL EXAMINATION: GENERAL: The patient is a thin-appearing white male, in no apparent distress. HEENT: Eyes, pupils are equal and responsive to light and accommodation. Extraocular movements are intact. NECK: Supple without lymphadenopathy. CHEST: Lungs are clear to auscultation bilaterally without wheezes or rales. CARDIOVASCULAR: Regular rhythm and rate. S1 and S2 are normal without murmurs, rubs, or gallops. ABDOMEN: Soft, nontender, and nondistended. Positive bowel sounds. No evidence of hepatosplenomegaly. Currently, no rebound or guarding noted. EXTREMITIES: Negative for clubbing, cyanosis, or edema. RECTAL/GENITAL: Not performed. NEUROLOGIC: Cranial nerves II through XII are grossly intact without focal deficits. Assessment/Plan Assessment/Plan ASSESSMENT: This is an 68-year-old white male. 1. Generalized weakness. 2. Hypertension. 3. Hypothyroidism. 4. Rectal cancer. 5. Cerebrovascular disease. 6. HIV. 7. Paroxysmal supraventricular tachycardia. 8. Bibasilar atelectasis 9. hypokalemia TREATMENT: 1. Generalized weakness. A CT scan of the brain is pending. Generalized weakness may be due to deconditioning. 2. Hypertension. Continue amlodipine, losartan, and metoprolol as above. 3. Hypothyroidism. Continue Levoxyl as above. 4. Rectal cancer. The patient is followed at [facility]. 5. History of cerebrovascular accident. 6. HIV. Continue HAART as above. 7. Paroxysmal supraventricular tachycardia. Cardiology consultation is pending with Dr Mendez 8. Await CT chest 9. Replace Trey Oshea MD Feb 12, 2019 13:28
[2019-02-12] MEDS: Piperacillin/Tazobactam 3.375 GM in NS 110 ML IVPB SCH ×2 (14:49→22:25)
[2019-02-12 16:00] VITALS: BP 132/87
--- NOTE | 2019-02-12 16:12 | NUR ---
NURSE NOTES: Patient noted with HR of 150s bpm PSVT which returns to HR of 112 bpm Sinus tachycardia. VS BP 130/91 HR 119 Sinus tachycardia. Contacted and informed Dr. Andrea MD acknowledged and ordered STAT ECG, which was relayed to him and reviewed. Dr. Mendez acknowledged ECG results and ordered Digoxin 0.25 mg IV x 1 and Digoxin level tomorrow AM. Orders entered, noted, and carried out. Will continue to monitor patient.
[2019-02-12] MEDS ORDERED: Digoxin 0.5mg/2ml Inj IVP SCH ×2 (16:15→18:30)
--- NOTE | 2019-02-12 17:10 | NUR ---
NURSE NOTES: Dr. Cordero informed that patient goes in and out of PSVT, currently sinus tachycardia with HR of [address] Cordero acknowledged and postponed CT abdomen for tomorrow AM. CT department made aware. Charge nurse made aware. Will continue to monitor patient.
[2019-02-12] MEDS ORDERED: Vancomycin 1.25gm/D5W 275ml IVPB SCH ×2 (18:00)
--- NOTE | 2019-02-12 18:00 | Consultation ---
DATE OF CONSULTATION: 02/12/2019 CARDIOLOGY CONSULTATION CONSULTING PHYSICIAN: Abel Mendez M.D. REFERRING PHYSICIAN: Carlos Barragan M.D. REASON FOR CONSULTATION: Atrial fibrillation, rapid ventricular response. HISTORY OF PRESENT ILLNESS: The patient is a 68-year-old gentleman with history of hypertension, hyperlipidemia, and HIV that was diagnosed in 1984. He has history of rectal cancer, currently under workup at [facility], presented with lower extremity weakness. The patient does use a wheelchair for ambulation at his home, but he is able to get out of wheelchair himself. On day of admission, the patient did not rise from his bed and called the paramedics. He also had urinary retention on last hospitalization in December. In the hospital, the patient had recurrent episodes of tachycardia, heart rate up to 150s and 170s even though it looked like sinus tachycardia, has had episodes of atrial fibrillation with rapid ventricular response. REVIEW OF SYSTEMS: Negative other than what was mentioned in the history of present illness. PAST MEDICAL HISTORY: As mentioned above. FAMILY HISTORY: Noncontributory. ALLERGIES: He is allergic to codeine, sulfamethoxazole, tenofovir, and trimethoprim. SOCIAL HISTORY: Former smoker, quit in . Denies any drug use. PHYSICAL EXAMINATION: VITAL SIGNS: Show blood pressure of 155/96, pulse 115, respirations 18, and temperature 98.5. HEAD AND NECK: Shows no JVD. LUNGS: Coarse rhonchi. CARDIOVASCULAR: Shows irregularly irregular. S1 and S2 with no gallop or murmur. ABDOMEN: Soft. EXTREMITIES: No pitting edema. LABORATORY AND DIAGNOSTIC DATA: His EKG showed sinus tachycardia at 111 with incomplete right bundle-branch block. His telemetry strip showed atrial fibrillation with rapid ventricular response up to 160s. Labs, white count of 11.6, hematocrit 14.9, hematocrit 45, and platelet count 205,000. Sodium 144, potassium 3.0, BUN 34, and creatinine 1.2. Glucose 123. Troponin is negative x2. Urinalysis is negative. ASSESSMENT AND PLAN: 1. Atrial fibrillation, rapid ventricular response. I will discontinue amlodipine and put him on Cardizem 60 mg every six hours, hopefully that would help in controlling the atrial fibrillation. We will hold off on anticoagulation at this time. 2. Hypertension. Again, change amlodipine to Cardizem. I will get an echocardiogram to evaluate for ejection fraction and wall motion abnormality. 3. Hypothyroidism, on Synthroid. 4. Human immunodeficiency virus. 5. Generalized weakness. 6. Rectal cancer. 7. Cerebrovascular accident. 8. History of supraventricular tachycardia. Thank you very much for allowing me to participate in the care of this patient. Please do not hesitate to contact me for any questions regarding my evaluation. Abel Mendez M.D. DR: LEV JOB#: [id number] CC:
--- NOTE | 2019-02-12 18:20 | NUR ---
NURSE NOTES: Dr. Mendez at nurse station, ordered Digoxin 0.5 mg IV x 1. Digoxin level for tomorrow AM. Orders entered, noted, and carried out. Will continue to monitor patient.
--- NOTE | 2019-02-12 19:00 | NUR ---
NURSE NOTES: Contacted and informed Dr. Cordero that patient takes Prezista, Genvoya, and Intelence at home. Per Dr. Cordero continued medications in hospital. Informed pharmacy of medications, per pharmacy do not carry those meds in house. Contacted and informed Dr. Cordero of situation, that per pharmacist a prescription has to be written and sent to [facility] where the medications can be filled up and supply can be sent into hospital for in house use. Dr. Cordero acknowledged and per MD will fill up prescription tomorrow. Noted. Will continue to monitor patient. Addendum: 02/12/19 at 1934 by JUAN SEE RN NURSE NOTES: Dosage of medications: 1 ) Prezista 800 mg PO QD, 2) Genvoya 1 tab PO QD, 3) Intelence 200 mg PO BID. Copy of patient's medications in paper chart. Noted.
--- NOTE | 2019-02-12 19:30 | NUR ---
HAND-OFF: Report given to CHARLEY Simpson.
--- NOTE | 2019-02-12 19:32 | NUR ---
NURSE NOTES: Patient is alert x oriented x4, is currently resting in bed, semi fowlers in stable condition. No s/sx of SOB, breathing is even and unlabored. Denies any presence of pain or discomfort at this time. Bed is in lowest position, locked, bed alarm on. Call light is kept within reach. Will continue to monitor patient.
[2019-02-12 20:00] VITALS: BP 137/92
[2019-02-12] MEDS: Vancomycin 1.25gm/D5W 275ml IVPB SCH ×2 (20:00)
[2019-02-13] VITALS: BP 148/90
[2019-02-13] MEDS: Metoclopramide 10mg/2ml Inj IVP PRN (01:27)
[2019-02-13 04:00] VITALS: BP 136/71
[2019-02-13] MEDS: dilTIAZem HCl 60mg tab ORAL SCH ×3 (05:16→21:55)
[2019-02-13] MEDS: Piperacillin/Tazobactam 3.375 GM in NS 110 ML IVPB SCH ×3 (05:19→22:00)
[2019-02-13] MEDS: Levothyroxine 25mcg tab ORAL SCH (06:30)
[2019-02-13 07:24] LABS: HEMATOCRIT 44.6 % (42.0-52.0); HEMOGLOBIN 14.8 G/DL (14.2-18.0); MEAN CORPUSCULAR VOLUME 91 FL (80-99); PLATELET COUNT 270 K/UL (150-450); RED BLOOD COUNT 4.89 M/UL (4.70-6.10); RED CELL DISTRIBUTION WIDTH 12.8 % (11.6-14.8); WHITE BLOOD COUNT 20.3 K/UL (4.8-10.8)
--- NOTE | 2019-02-13 07:40 | NUR ---
HAND-OFF: Report given to Hector Cruz RN.
[2019-02-13 07:51] LABS: ALANINE AMINOTRANSFERASE 37 U/L (12-78); ALBUMIN 3.3 G/DL (3.4-5.0); ALBUMIN/GLOBULIN RATIO 0.7 (1.0-2.7); ALKALINE PHOSPHATASE 125 U/L (46-116); ANION GAP 14 mmol/L (5-15); ASPARTATE AMINO TRANSFERASE 53 U/L (15-37); BILIRUBIN,TOTAL 1.1 MG/DL (0.2-1.0); BLOOD UREA NITROGEN 38 mg/dL (7-18); CALCIUM 8.2 MG/DL (8.5-10.1); CARBON DIOXIDE 18 MMOL/L (21-32); CHLORIDE 108 MMOL/L (98-107); CREATININE 1.2 MG/DL (0.55-1.30); POTASSIUM 3.9 MMOL/L (3.5-5.1); SODIUM 140 MMOL/L (136-145)
--- NOTE | 2019-02-13 07:53 | NUR ---
NURSE NOTES: Pt in bed in low position, call light at bedside next to pt, HOB in semi fowlers, pt soiled as pt has been having watery stool for several days, will attempt to collect stool, Pt is Ox3 calm and cooperative, looks weak, IV running abx is asymptomatic, pt denies pain, no s/s of distress or sob noted.
[2019-02-13 08:00] VITALS: BP 120/76
[2019-02-13 08:10] LABS: PHOSPHORUS 2.6 MG/DL (2.5-4.9)
[2019-02-13 08:11] LABS: BILIRUBIN,DIRECT 0.4 MG/DL (0.0-0.3)
[2019-02-13] MEDS: PARoxetine 20mg tab ORAL SCH (09:15)
[2019-02-13] MEDS: Tamsulosin 0.4mg cap ORAL SCH ×2 (09:15→17:29)
--- NOTE | 2019-02-13 09:18 | NUR ---
*-* INSURANCE *-* ALL CLINICALS AND REVIEWS HAVE BEEN [facility]ED [facility] REF[facility] [id number] F: [phone] P: [phone]
--- NOTE | 2019-02-13 10:16 | NUR ---
CATSCAN CHEST/ABD/PELVIS COMPLETED
--- NOTE | 2019-02-13 11:04 | Pulmonology Progress Note ---
Assessment/Plan Problems: (1) Sepsis (2) Febrile illness, acute (3) Atrial fibrillation (4) History of rectal cancer (5) BPH (benign prostatic hyperplasia) (6) Degenerative disc disease (7) Severe protein-calorie malnutrition (8) HIV (human immunodeficiency virus infection) Assessment/Plan f/u cultures ADD vanco po for presumptive C. Diff continue abx check electrolytes watch the heart rate Subjective ROS Limited/Unobtainable: No Constitutional: Reports: no symptoms HEENT: Repors: no symptoms Allergies: Coded Allergies: CODEINE (Unverified Allergy, Unknown, 11/28/17) EMTRICITABINE (Verified Allergy, Unknown, anxiousness, 08/31/18) SULFAMETHOXAZOLE (Unverified Allergy, Unknown, 10/27/17) TENOFOVIR (Verified Allergy, Unknown, anxiousness, 08/31/18) TRIMETHOPRIM (Unverified Allergy, Unknown, 10/27/17) Objective Last 24 Hour Vital Signs Date Time Temp Pulse Resp B/P (MAP) Pulse Ox O2 Delivery O2 Flow Rate FiO2 02/13/19 08:44 Room Air 02/13/19 08:00 99.2 88 18 120/76 (91) 93 02/13/19 05:16 104 136/71 02/13/19 04:00 98.4 104 18 136/71 (92) 96 02/13/19 04:00 102 02/13/19 00:00 121 02/13/19 00:00 98.1 113 18 148/90 (109) 95 02/12/19 21:46 109 137/92 02/12/19 21:00 Room Air 02/12/19 20:00 98.1 109 18 137/92 (107) 95 02/12/19 20:00 112 02/12/19 18:32 112 02/12/19 16:26 114 02/12/19 16:00 113 02/12/19 16:00 98.7 108 17 132/87 (102) 93 02/12/19 13:15 114 155/97 02/12/19 12:00 98.1 114 17 155/97 (116) 93 02/12/19 12:00 117 Intake and Output 02/12/19 02/13/19 19:00 07:00 Intake Total 500 ml 422.50 ml Output Total 400 ml 4 ml Balance 100 ml 418.50 ml Intake Oral 500 ml 120 ml IV Total 302.50 ml Output Urine Total 400 ml 2 ml Stool Total 2 ml # Voids 2 # Bowel Movements 2 General Appearance: WD/WN HEENT: normocephalic, atraumatic, PERRL Respiratory/Chest: chest wall non-tender, lungs clear Cardiovascular: normal peripheral pulses Abdomen: normal bowel sounds, soft, non tender, no organomegaly Genitourinary: normal external genitalia 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 Lymphatic: no neck adenopathy Laboratory Tests 02/13/19 05:47: White Blood Count [Pending], Red Blood Count 4.89, Hemoglobin 14.8, Hematocrit 44.6, Mean Corpuscular Volume 91, Mean Corpuscular Hemoglobin 30.3, Mean Corpuscular Hemoglobin Concent 33.2, Red Cell Distribution Width 12.8, Platelet Count 270, Mean Platelet Volume 7.6, Neutrophils (%) (Auto) , Lymphocytes (%) ( Auto) , Monocytes (%) (Auto) , Eosinophils (%) (Auto) , Basophils (%) (Auto) , Differential Total Cells Counted 100, Neutrophils % (Manual) 67, Lymphocytes % ( Manual) 28, Monocytes % (Manual) 5, Eosinophils % (Manual) 0, Basophils % ( Manual) 0, Band Neutrophils 0, Lymphocytes [Pending], Platelet Estimate Adequate , Platelet Morphology Normal, Red Blood Cell Morphology Normal, Prothrombin Time 10.2, Prothromb Time International Ratio 1.0, Activated Partial Thromboplast Time 26, Sodium Level 140, Potassium Level 3.9, Chloride Level 108H , Carbon Dioxide Level 18L, Anion Gap 14, Blood Urea Nitrogen 38H, Creatinine 1.2, Estimat Glomerular Filtration Rate 59.9, Glucose Level 115H, Calcium Level 8.2L, Phosphorus Level 2.6, Magnesium Level 2.5H, Total Bilirubin 1.1H, Direct Bilirubin 0.4H, Aspartate Amino Transf (AST/SGOT) 53H, Alanine Aminotransferase (ALT/SGPT) 37, Alkaline Phosphatase 125H, Troponin I 0.010, Pro-B-Type Natriuretic Peptide 512H, Total Protein 7.9, Albumin 3.3L, Globulin 4.6, Albumin /Globulin Ratio 0.7L, Digoxin Level 1.1, Percent CD3 Cells [Pending], Absolute CD3 Count [Pending], Percent CD4 Cells [Pending], Absolute CD4 Count [Pending], T-Lymphocyte CD4/CD8 Ratio [Pending], Percent CD8 Cells [Pending], Absolute CD8 Count [Pending] Current Medications Medications (Trade) Dose Ordered Sig/Roman Route PRN Reason Start Time Stop Time Status Last Admin Dose Admin Acetaminophen (Tylenol) 650 mg Q4H PRN ORAL fever 02/10/19 14:00 03/12/19 13:59 02/10/19 20:39 Barium Sulfate (Readi-Cat 2) 450 ml NOW PRN ORAL Radiology Procedure 02/12/19 13:15 02/14/19 13:09 Darunavir (Prezista) 800 mg DAILY ORAL 02/13/19 09:00 03/15/19 08:59 UNV Dextrose (Dextrose 50%) 25 ml Q30M PRN IV Hypoglycemia 02/10/19 14:15 03/12/19 14:05 Dextrose (Dextrose 50%) 50 ml Q30M PRN IV hypoglycemia 02/10/19 14:15 03/12/19 14:14 Diltiazem HCl (Cardizem) 60 mg EVERY 8 HOURS ORAL 02/12/19 14:00 03/14/19 13:59 02/13/19 05:16 Famotidine (Pepcid) 10 mg BID PRN ORAL heartburn 02/11/19 22:30 03/13/19 22:29 02/13/19 01:26 Gabapentin (Neurontin) 600 mg THREE TIMES A DAY ORAL 02/10/19 18:00 03/12/19 17:59 02/13/19 09:15 Iopamidol (Isovue-300 100ml) 100 ml NOW PRN INJ Radiology Procedure 02/12/19 13:15 02/14/19 13:14 Levothyroxine Sodium (Synthroid) 25 mcg DAILY@0630 ORAL 02/11/19 06:30 03/13/19 06:29 02/11/19 05:35 Lorazepam (Ativan 2mg/ml 1ml) 0.5 mg Q4H PRN IV For Anxiety 02/10/19 14:00 02/17/19 13:59 Metoclopramide HCl (Reglan) 5 mg Q6H PRN IVP Nausea & Vomiting 02/12/19 07:30 03/14/19 07:29 02/13/19 01:27 Mirtazapine (Remeron) 15 mg BEDTIME ORAL 02/10/19 21:00 03/12/19 20:59 02/11/19 21:00 Morphine Sulfate (Morphine Sulfate) 1 mg Q4H PRN IVP For Pain 02/10/19 14:00 02/17/19 13:59 02/12/19 14:39 Non-Formulary Medication (Non-Formulary Med) 1 ea BID ORAL 02/13/19 09:00 03/15/19 08:59 UNV Non-Formulary Medication (Non-Formulary Med) 1 ea DAILY ORAL 02/13/19 09:00 03/15/19 08:59 UNV Paroxetine HCl (Paxil) 40 mg DAILY ORAL 02/11/19 09:00 03/13/19 08:59 02/13/19 09:15 Piperacillin Sod/ Tazobactam Sod 3.375 gm/Sodium Chloride 110 ml @ 27.5 mls/hr EVERY 8 HOURS IVPB 02/12/19 14:00 02/17/19 13:59 02/13/19 05:19 Polyethylene Glycol (Miralax) 17 gm HSPRN PRN ORAL Constipation 02/10/19 14:00 03/12/19 13:59 Tamsulosin HCl (Flomax) 0.4 mg BID ORAL 02/10/19 18:00 03/12/19 17:59 02/13/19 09:15 Vancomycin HCl (Vanco rx to dose) 1 ea DAILY PRN MISC Per rx protocol 02/12/19 13:15 03/14/19 13:14 Vancomycin HCl 1.25 gm/Dextrose 275 ml @ 183.33 mls/ hr Q24H IVPB 02/12/19 20:00 02/17/19 19:59 02/12/19 20:00 Zolpidem Tartrate (Ambien) 5 mg HSPRN PRN ORAL Insomnia 02/10/19 14:00 02/17/19 13:59 Oliverio Rm MD Feb 13, 2019 11:04
--- NOTE | 2019-02-13 11:20 | NUR ---
PT EVALUATION NOTE Patient seen for initial evaluation, see complete evaluation for details. Patient presents with generalized weakness, B knee flexion contractures and pain BLEs which affects patient's ability to perform bed activities and transfers. Patient will benefit from skilled inpatient PT intervention to address strength, balance, safety and functional mobility. Recommend discharge to SNF for further rehab once medically cleared by MD. Addendum: 02/13/19 at 1242 by LUIS DANIEL WASHINGTON PT Amended: Links added.
--- NOTE | 2019-02-13 11:34 | Diagnostic Imaging Report ---
CT CHEST, ABDOMEN AND PELVIS WITH CONTRAST INDICATION: History of HIV and rectal cancer, presenting with abdominal pain and fever. TECHNIQUE: Continuous helical transaxial imaging of the abdomen and pelvis was obtained from the lung bases to the pubic symphysis during intravenous contrast administration. Coronal 2-D reformats were also obtained. Study obtained in a Siemens sensation [address] Automatic Exposure Control was utilized. Total Dose length Product (DLP): 1462.[address] Dose Index Volume (CTDIvol): 15.01,14.86 mGy COMPARISON: CT abdomen and pelvis dated 11/17/2018 FINDINGS: Lungs and pleura: No pleural fluid. There is diffuse peribronchial thickening with clusters of tree-in-bud nodularity, predominantly in the left lower lobe. There is patchy airspace consolidation left lower lobe. Heart and mediastinum: Heart is not enlarged. No pericardial fluid. Esophagus is patulous and partly distended with oral contrast. There is circumferential lower esophageal wall thickening. Thyroid is unremarkable. Airway: Patent. Lymph nodes: No pathologically enlarged lymph nodes. Hepatobiliary:: There is a 1 cm hypodensity in hepatic segment , unchanged and likely representing a cyst. Genitourinary:: Kidneys are atrophic. Unchanged left renal cysts. Adrenals:: Unremarkable. Pancreas:: Fatty atrophy. Gastrointestinal:: No evidence of obstruction. There is diffuse long segment circumferential colonic wall thickening involving the rectum and sigmoid colon with some mucosal edema. There is multifocal small bowel distention with scattered air-fluid levels. There is circumferential wall thickening and associated periduodenal fat stranding involving the first through third portions of the duodenum. Spleen: : Unremarkable. Peritoneum:: Diffuse mild mesenteric fat stranding. Small umbilical hernia. Vasculature: Mild aortoiliac atherosclerotic calcification. Bones and soft tissues:: There are multilevel discogenic degenerative changes of the visualized spine. There is flowing anterior stifflegged bridging in the thoracic spine. Grade 1 anterolisthesis of L4 on L5. IMPRESSION: 1. Sigmoid and rectal colonic wall thickening with some mucosal edema along with scattered small bowel loops with bowel wall thickening suggestive of enterocolitis. 2. Duodenal wall thickening with associated fat stranding, which may share etiology with enterocolitis; however, correlation with lipase is recommended to exclude groove pancreatitis. 3. Evidence of infectious/inflammatory small airways disease; patchy left basilar airspace consolidation raises possibility of developing pneumonia. 4. Refluxing esophagus with distal esophageal wall thickening; correlation with recent endoscopy is recommended. The CT scanner at [facility] is accredited by the [employer] and the scans are performed using protocols designed to limit radiation exposure to as low as reasonably achievable to attain images of sufficient resolution adequate for diagnostic evaluation.
[2019-02-13 11:59] VITALS: BP 126/89
--- NOTE | 2019-02-13 12:20 | Infectious Diseases Prog Note ---
Assessment/Plan Assessment/Plan Abx: IV Vancomycin x1 02/10 Zosyn x1 02/10 Assessment: Sepsis--colitis (r/o Cdiff), probable pancreatitis and PNA -CT abd/p: Sigmoid and rectal colonic wall thickening with some mucosal edema along with scattered small bowel loops with bowel wall thickening suggestive of enterocolitis. Duodenal wall thickening with associated fat stranding, which may share etiology with enterocolitis; however, correlation with lipase is recommended to exclude groove pancreatitis. Evidence of infectious/inflammatory small airways disease; patchy left basilar airspace consolidation raises possibility of developing pneumonia. Refluxing esophagus with distal esophageal wall thickening; correlation with recent endoscopy is recommended. -CXR: Bibasilar opacities likely representing subsegmental atelectasis. -u/a neg -BCx NTD Fever; improving Leukocytosis, increased hx of Cdiff 09/2018- - failed oral vancomycin; sp tx w/ Fidaxomicin --09/06 Cdiff toxin a/b +; repeat Cdiff neg x2 -09/06 SP Colonoscopy: proctitis -stool cx: normal thomas -Giardia ag, cryptosporidium neg Hx of UTI 08/2018 -u/a wbc 10-15, shirley neg, leuk +3; ucx >100K PROTEUS MIRABILIS ( I Levo; R Amp, bactrim, Cipro, Nitro; S Ceftriaxone) HIV/AIDS- on ARV -11/19 CD4 392 (17.4%) -09/2018 182 (10.1%), VL UD -11/2017 CD4 323 Rectal CA (ongoing w/u at [facility]) CVA 2005 HTN Plan: -Resume empiric IV Vancomycn and Zosyn #3 pending cultures -Start empiric oral vancomycin -12/01 Sp Cefepime #14, Flagyl #14 -11/22 SP IV Vancomycin #6 -11/17 SP Zosyn x1 -09/23 SP Fidaxomicin #10 -09/13/18 SP PO Vancomycin #8 -f/u cx -Monitor CBC/CMP, temperatures -f/u CD4, Cdiff -sp cx, stool cx -amylase, lipase Thank you for this consultation. Will continue to follow along with you. Discussed with RN Subjective Allergies: Coded Allergies: CODEINE (Unverified Allergy, Unknown, 11/28/17) EMTRICITABINE (Verified Allergy, Unknown, anxiousness, 08/31/18) SULFAMETHOXAZOLE (Unverified Allergy, Unknown, 10/27/17) TENOFOVIR (Verified Allergy, Unknown, anxiousness, 08/31/18) TRIMETHOPRIM (Unverified Allergy, Unknown, 10/27/17) Subjective afebrile in 24hrs wbc increased Bcx NTD Objective Vital Signs Last 24 Hour Vital Signs Date Time Temp Pulse Resp B/P (MAP) Pulse Ox O2 Delivery O2 Flow Rate FiO2 02/13/19 11:59 98.6 87 20 126/89 (101) 96 02/13/19 08:44 Room Air 02/13/19 08:00 99.2 88 18 120/76 (91) 93 02/13/19 05:16 104 136/71 02/13/19 04:00 98.4 104 18 136/71 (92) 96 02/13/19 04:00 102 02/13/19 00:00 121 02/13/19 00:00 98.1 113 18 148/90 (109) 95 02/12/19 21:46 109 137/92 02/12/19 21:00 Room Air 02/12/19 20:00 98.1 109 18 137/92 (107) 95 02/12/19 20:00 112 02/12/19 18:32 112 02/12/19 16:26 114 02/12/19 16:00 113 02/12/19 16:00 98.7 108 17 132/87 (102) 93 02/12/19 13:15 114 155/97 Height (Feet): 5 Height (Inches): 7.00 Weight (Pounds): 150 Objective GENERAL: The patient is a thin-appearing white male, in no apparent distress. HEENT: Eyes, pupils are equal and responsive to light and accommodation. Extraocular movements are intact. NECK: Supple without lymphadenopathy. CHEST: Lungs are clear to auscultation bilaterally without wheezes or rales. CARDIOVASCULAR: Regular rhythm and rate. S1 and S2 are normal without murmurs, rubs, or gallops. ABDOMEN: Soft, nontender, and nondistended. Positive bowel sounds. No evidence of hepatosplenomegaly. Currently, no rebound or guarding noted. EXTREMITIES: Negative for clubbing, cyanosis, or edema. NEUROLOGIC: Cranial nerves II through XII are grossly intact without focal deficits. Laboratory Tests Test 02/13/19 05:47 White Blood Count Pending Red Blood Count 4.89 M/UL (4.70-6.10) Hemoglobin 14.8 G/DL (14.2-18.0) Hematocrit 44.6 % (42.0-52.0) Mean Corpuscular Volume 91 FL (80-99) Mean Corpuscular Hemoglobin 30.3 PG (27.0-31.0) Mean Corpuscular Hemoglobin Concent 33.2 G/DL (32.0-36.0) Red Cell Distribution Width 12.8 % (11.6-14.8) Platelet Count 270 K/UL (150-450) Mean Platelet Volume 7.6 FL (6.5-10.1) Neutrophils (%) (Auto) % (45.0-75.0) Lymphocytes (%) (Auto) % (20.0-45.0) Monocytes (%) (Auto) % (1.0-10.0) Eosinophils (%) (Auto) % (0.0-3.0) Basophils (%) (Auto) % (0.0-2.0) Differential Total Cells Counted 100 Neutrophils % (Manual) 67 % (45-75) Lymphocytes % (Manual) 28 % (20-45) Monocytes % (Manual) 5 % (1-10) Eosinophils % (Manual) 0 % (0-3) Basophils % (Manual) 0 % (0-2) Band Neutrophils 0 % (0-8) Lymphocytes Pending Platelet Estimate Adequate Platelet Morphology Normal Red Blood Cell Morphology Normal Prothrombin Time 10.2 SEC (9.30-11.50) Prothromb Time International Ratio 1.0 (0.9-1.1) Activated Partial Thromboplast Time 26 SEC (23-33) Sodium Level 140 MMOL/L (136-145) Potassium Level 3.9 MMOL/L (3.5-5.1) Chloride Level 108 MMOL/L (98-107) H Carbon Dioxide Level 18 MMOL/L (21-32) L Anion Gap 14 mmol/L (5-15) Blood Urea Nitrogen 38 mg/dL (7-18) H Creatinine 1.2 MG/DL (0.55-1.30) Estimat Glomerular Filtration Rate 59.9 mL/min (>60) Glucose Level 115 MG/DL (74-106) H Calcium Level 8.2 MG/DL (8.5-10.1) L Phosphorus Level 2.6 MG/DL (2.5-4.9) Magnesium Level 2.5 MG/DL (1.8-2.4) H Total Bilirubin 1.1 MG/DL (0.2-1.0) H Direct Bilirubin 0.4 MG/DL (0.0-0.3) H Aspartate Amino Transf (AST/SGOT) 53 U/L (15-37) H Alanine Aminotransferase (ALT/SGPT) 37 U/L (12-78) Alkaline Phosphatase 125 U/L (46-116) H Troponin I 0.010 ng/mL (0.000-0.056) Pro-B-Type Natriuretic Peptide 512 pg/mL (0-125) H Total Protein 7.9 G/DL (6.4-8.2) Albumin 3.3 G/DL (3.4-5.0) L Globulin 4.6 g/dL Albumin/Globulin Ratio 0.7 (1.0-2.7) L Digoxin Level 1.1 NG/ML (0.5-2.0) Percent CD3 Cells Pending Absolute CD3 Count Pending Percent CD4 Cells Pending Absolute CD4 Count Pending T-Lymphocyte CD4/CD8 Ratio Pending Percent CD8 Cells Pending Absolute CD8 Count Pending Current Medications Medications (Trade) Dose Ordered Sig/Roman Route PRN Reason Start Time Stop Time Status Last Admin Dose Admin Acetaminophen (Tylenol) 650 mg Q4H PRN ORAL fever 02/10/19 14:00 03/12/19 13:59 02/10/19 20:39 Barium Sulfate (Readi-Cat 2) 450 ml NOW PRN ORAL Radiology Procedure 02/12/19 13:15 02/14/19 13:09 Darunavir (Prezista) 800 mg DAILY ORAL 02/13/19 09:00 03/15/19 08:59 UNV Dextrose (Dextrose 50%) 25 ml Q30M PRN IV Hypoglycemia 02/10/19 14:15 03/12/19 14:05 Dextrose (Dextrose 50%) 50 ml Q30M PRN IV hypoglycemia 02/10/19 14:15 03/12/19 14:14 Diltiazem HCl (Cardizem) 60 mg EVERY 8 HOURS ORAL 02/12/19 14:00 03/14/19 13:59 02/13/19 05:16 Famotidine (Pepcid) 10 mg BID PRN ORAL heartburn 02/11/19 22:30 03/13/19 22:29 02/13/19 01:26 Gabapentin (Neurontin) 600 mg THREE TIMES A DAY ORAL 02/10/19 18:00 03/12/19 17:59 02/13/19 09:15 Iopamidol (Isovue-300 100ml) 100 ml NOW PRN INJ Radiology Procedure 02/12/19 13:15 02/14/19 13:14 Levothyroxine Sodium (Synthroid) 25 mcg DAILY@0630 ORAL 02/11/19 06:30 03/13/19 06:29 02/11/19 05:35 Lorazepam (Ativan 2mg/ml 1ml) 0.5 mg Q4H PRN IV For Anxiety 02/10/19 14:00 02/17/19 13:59 Metoclopramide HCl (Reglan) 5 mg Q6H PRN IVP Nausea & Vomiting 02/12/19 07:30 03/14/19 07:29 02/13/19 01:27 Mirtazapine (Remeron) 15 mg BEDTIME ORAL 02/10/19 21:00 03/12/19 20:59 02/11/19 21:00 Morphine Sulfate (Morphine Sulfate) 1 mg Q4H PRN IVP For Pain 02/10/19 14:00 02/17/19 13:59 02/12/19 14:39 Non-Formulary Medication (Non-Formulary Med) 1 ea BID ORAL 02/13/19 09:00 03/15/19 08:59 UNV Non-Formulary Medication (Non-Formulary Med) 1 ea DAILY ORAL 02/13/19 09:00 03/15/19 08:59 UNV Paroxetine HCl (Paxil) 40 mg DAILY ORAL 02/11/19 09:00 03/13/19 08:59 02/13/19 09:15 Piperacillin Sod/ Tazobactam Sod 3.375 gm/Sodium Chloride 110 ml @ 27.5 mls/hr EVERY 8 HOURS IVPB 02/12/19 14:00 02/17/19 13:59 02/13/19 05:19 Polyethylene Glycol (Miralax) 17 gm HSPRN PRN ORAL Constipation 02/10/19 14:00 03/12/19 13:59 Tamsulosin HCl (Flomax) 0.4 mg BID ORAL 02/10/19 18:00 03/12/19 17:59 02/13/19 09:15 Vancomycin HCl (Firvanq) 125 mg FOUR TIMES A DAY ORAL 02/13/19 13:00 02/20/19 12:59 Vancomycin HCl (Vanco rx to dose) 1 ea DAILY PRN MISC Per rx protocol 02/12/19 13:15 03/14/19 13:14 Vancomycin HCl 1.25 gm/Dextrose 275 ml @ 183.33 mls/ hr Q24H IVPB 02/12/19 20:00 02/17/19 19:59 02/12/19 20:00 Zolpidem Tartrate (Ambien) 5 mg HSPRN PRN ORAL Insomnia 02/10/19 14:00 02/17/19 13:59 Miranda Cordero M.D. Feb 13, 2019 12:20
[2019-02-13] MEDS: Vancomycin oral 125mg/2.5ml ORAL SCH ×3 (13:27→21:54)
[2019-02-13 13:38] LABS: AMYLASE 62 U/L (25-115)
--- NOTE | 2019-02-13 14:51 | Cardiac Electrophysiology PN ---
Assessment/Plan Assessment/Plan 1. Atrial fibrillation, rapid ventricular response. On Cardizem 60 mg every six hours and Dig. Dig level 1.1. We will hold off on anticoagulation at this time.EF 60% 2. Hypertension. On Cardizem. 3. Recurrent supraventricular tachycardia of sudden onset and termination. Had SVT again 160s. On Dig and Cardizem 4. Human immunodeficiency virus. 5. Generalized weakness. 6. Rectal cancer. 7. Cerebrovascular accident. ORALIA RN Subjective Subjective Alert in NAD.In SR. Occasional SVT. Objective Last 24 Hour Vital Signs Date Time Temp Pulse Resp B/P (MAP) Pulse Ox O2 Delivery O2 Flow Rate FiO2 02/13/19 13:24 87 126/89 02/13/19 11:59 98.6 87 20 126/89 (101) 96 02/13/19 08:44 Room Air 02/13/19 08:00 99.2 88 18 120/76 (91) 93 02/13/19 05:16 104 136/71 02/13/19 04:00 98.4 104 18 136/71 (92) 96 02/13/19 04:00 102 02/13/19 00:00 121 02/13/19 00:00 98.1 113 18 148/90 (109) 95 02/12/19 21:46 109 137/92 02/12/19 21:00 Room Air 02/12/19 20:00 98.1 109 18 137/92 (107) 95 02/12/19 20:00 112 02/12/19 18:32 112 02/12/19 16:26 114 02/12/19 16:00 113 02/12/19 16:00 98.7 108 17 132/87 (102) 93 Intake and Output 02/12/19 02/13/19 19:00 07:00 Intake Total 500 ml 422.50 ml Output Total 400 ml 4 ml Balance 100 ml 418.50 ml Intake Oral 500 ml 120 ml IV Total 302.50 ml Output Urine Total 400 ml 2 ml Stool Total 2 ml # Voids 2 # Bowel Movements 2 Laboratory Tests Test 02/13/19 05:47 White Blood Count Pending Red Blood Count 4.89 M/UL (4.70-6.10) Hemoglobin 14.8 G/DL (14.2-18.0) Hematocrit 44.6 % (42.0-52.0) Mean Corpuscular Volume 91 FL (80-99) Mean Corpuscular Hemoglobin 30.3 PG (27.0-31.0) Mean Corpuscular Hemoglobin Concent 33.2 G/DL (32.0-36.0) Red Cell Distribution Width 12.8 % (11.6-14.8) Platelet Count 270 K/UL (150-450) Mean Platelet Volume 7.6 FL (6.5-10.1) Neutrophils (%) (Auto) % (45.0-75.0) Lymphocytes (%) (Auto) % (20.0-45.0) Monocytes (%) (Auto) % (1.0-10.0) Eosinophils (%) (Auto) % (0.0-3.0) Basophils (%) (Auto) % (0.0-2.0) Differential Total Cells Counted 100 Neutrophils % (Manual) 67 % (45-75) Lymphocytes % (Manual) 28 % (20-45) Monocytes % (Manual) 5 % (1-10) Eosinophils % (Manual) 0 % (0-3) Basophils % (Manual) 0 % (0-2) Band Neutrophils 0 % (0-8) Lymphocytes Pending Platelet Estimate Adequate Platelet Morphology Normal Red Blood Cell Morphology Normal Prothrombin Time 10.2 SEC (9.30-11.50) Prothromb Time International Ratio 1.0 (0.9-1.1) Activated Partial Thromboplast Time 26 SEC (23-33) Sodium Level 140 MMOL/L (136-145) Potassium Level 3.9 MMOL/L (3.5-5.1) Chloride Level 108 MMOL/L (98-107) H Carbon Dioxide Level 18 MMOL/L (21-32) L Anion Gap 14 mmol/L (5-15) Blood Urea Nitrogen 38 mg/dL (7-18) H Creatinine 1.2 MG/DL (0.55-1.30) Estimat Glomerular Filtration Rate 59.9 mL/min (>60) Glucose Level 115 MG/DL (74-106) H Calcium Level 8.2 MG/DL (8.5-10.1) L Phosphorus Level 2.6 MG/DL (2.5-4.9) Magnesium Level 2.5 MG/DL (1.8-2.4) H Total Bilirubin 1.1 MG/DL (0.2-1.0) H Direct Bilirubin 0.4 MG/DL (0.0-0.3) H Aspartate Amino Transf (AST/SGOT) 53 U/L (15-37) H Alanine Aminotransferase (ALT/SGPT) 37 U/L (12-78) Alkaline Phosphatase 125 U/L (46-116) H Troponin I 0.010 ng/mL (0.000-0.056) Pro-B-Type Natriuretic Peptide 512 pg/mL (0-125) H Total Protein 7.9 G/DL (6.4-8.2) Albumin 3.3 G/DL (3.4-5.0) L Globulin 4.6 g/dL Albumin/Globulin Ratio 0.7 (1.0-2.7) L Amylase Level 62 U/L (25-115) Lipase 281 U/L (73-393) Digoxin Level 1.1 NG/ML (0.5-2.0) Percent CD3 Cells Pending Absolute CD3 Count Pending Percent CD4 Cells Pending Absolute CD4 Count Pending T-Lymphocyte CD4/CD8 Ratio Pending Percent CD8 Cells Pending Absolute CD8 Count Pending Objective HEAD AND NECK: Shows no JVD. LUNGS: Coarse rhonchi. CARDIOVASCULAR: Shows irregularly irregular. S1 and S2 with no gallop or murmur. ABDOMEN: Soft. EXTREMITIES: No pitting edema. Abel Mendez MD Feb 13, 2019 14:51
--- NOTE | 2019-02-13 15:34 | NUR ---
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 98.6 HR 87 RR 20 B/P 126/84 BUN 38 WBC 20.3 ALK PHOS 125 BNP 512 ABD/PELVIS=PENDING IS: VANCO IV ZOSYN IV PEPCID DIGOXIN PAXIL TELE STATUS
[2019-02-13] MEDS ORDERED: NS 500ML ONE (15:35)
[2019-02-13] MEDS ORDERED: Tubing IV Secondary IV ONE (15:35)
--- NOTE | 2019-02-13 15:47 | Internal Med Progress Note ---
Subjective Date of Service: Feb 13, 2019 Physician Name Trey Whitaker Attending Physician Carlos Barragan MD Current Medications Medications (Trade) Dose Ordered Sig/Roman Route PRN Reason Start Time Stop Time Status Last Admin Dose Admin Acetaminophen (Tylenol) 650 mg Q4H PRN ORAL fever 02/10/19 14:00 03/12/19 13:59 02/10/19 20:39 Barium Sulfate (Readi-Cat 2) 450 ml NOW PRN ORAL Radiology Procedure 02/12/19 13:15 02/14/19 13:09 Darunavir (Prezista) 800 mg DAILY ORAL 02/13/19 09:00 03/15/19 08:59 UNV Dextrose (Dextrose 50%) 25 ml Q30M PRN IV Hypoglycemia 02/10/19 14:15 03/12/19 14:05 Dextrose (Dextrose 50%) 50 ml Q30M PRN IV hypoglycemia 02/10/19 14:15 03/12/19 14:14 Digoxin (Lanoxin) 0.125 mg DAILY ORAL 02/14/19 09:00 03/16/19 08:59 Diltiazem HCl (Cardizem) 60 mg EVERY 8 HOURS ORAL 02/12/19 14:00 03/14/19 13:59 02/13/19 13:24 Famotidine (Pepcid) 10 mg BID PRN ORAL heartburn 02/11/19 22:30 03/13/19 22:29 02/13/19 01:26 Gabapentin (Neurontin) 600 mg THREE TIMES A DAY ORAL 02/10/19 18:00 03/12/19 17:59 02/13/19 13:24 Iopamidol (Isovue-300 100ml) 100 ml NOW PRN INJ Radiology Procedure 02/12/19 13:15 02/14/19 13:14 Levothyroxine Sodium (Synthroid) 25 mcg DAILY@0630 ORAL 02/11/19 06:30 03/13/19 06:29 02/11/19 05:35 Lorazepam (Ativan 2mg/ml 1ml) 0.5 mg Q4H PRN IV For Anxiety 02/10/19 14:00 02/17/19 13:59 Metoclopramide HCl (Reglan) 5 mg Q6H PRN IVP Nausea & Vomiting 02/12/19 07:30 03/14/19 07:29 02/13/19 01:27 Mirtazapine (Remeron) 15 mg BEDTIME ORAL 02/10/19 21:00 03/12/19 20:59 02/11/19 21:00 Morphine Sulfate (Morphine Sulfate) 1 mg Q4H PRN IVP For Pain 02/10/19 14:00 02/17/19 13:59 02/12/19 14:39 Non-Formulary Medication (Non-Formulary Med) 1 ea BID ORAL 02/13/19 09:00 03/15/19 08:59 UNV Non-Formulary Medication (Non-Formulary Med) 1 ea DAILY ORAL 02/13/19 09:00 03/15/19 08:59 UNV Paroxetine HCl (Paxil) 40 mg DAILY ORAL 02/11/19 09:00 03/13/19 08:59 02/13/19 09:15 Piperacillin Sod/ Tazobactam Sod 3.375 gm/Sodium Chloride 110 ml @ 27.5 mls/hr EVERY 8 HOURS IVPB 02/12/19 14:00 02/17/19 13:59 02/13/19 14:13 Polyethylene Glycol (Miralax) 17 gm HSPRN PRN ORAL Constipation 02/10/19 14:00 03/12/19 13:59 Tamsulosin HCl (Flomax) 0.4 mg BID ORAL 02/10/19 18:00 03/12/19 17:59 02/13/19 09:15 Vancomycin HCl (Firvanq) 125 mg FOUR TIMES A DAY ORAL 02/13/19 13:00 02/20/19 12:59 02/13/19 13:27 Vancomycin HCl (Vanco rx to dose) 1 ea DAILY PRN MISC Per rx protocol 02/12/19 13:15 03/14/19 13:14 Vancomycin HCl 1.25 gm/Dextrose 275 ml @ 183.33 mls/ hr Q24H IVPB 02/12/19 20:00 02/17/19 19:59 02/12/19 20:00 Zolpidem Tartrate (Ambien) 5 mg HSPRN PRN ORAL Insomnia 02/10/19 14:00 02/17/19 13:59 Allergies: Coded Allergies: CODEINE (Unverified Allergy, Unknown, 11/28/17) EMTRICITABINE (Verified Allergy, Unknown, anxiousness, 08/31/18) SULFAMETHOXAZOLE (Unverified Allergy, Unknown, 10/27/17) TENOFOVIR (Verified Allergy, Unknown, anxiousness, 08/31/18) TRIMETHOPRIM (Unverified Allergy, Unknown, 10/27/17) ROS Limited/Unobtainable: No Constitutional: Reports: no symptoms HEENT: Reports: no symptoms Cardiovascular: Reports: no symptoms Respiratory: Reports: no symptoms Gastrointestinal/Abdominal: Reports: no symptoms Genitourinary: Reports: no symptoms 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: Reports: no symptoms Subjective 68 YO M admitted with gen weakness. Cover for Int Med-Dr Barragan. C/O diarrhea Objective Last Vital Signs Date Time Temp Pulse Resp B/P (MAP) Pulse Ox O2 Delivery O2 Flow Rate FiO2 02/13/19 13:24 87 126/89 02/13/19 11:59 98.6 20 96 02/13/19 08:44 Room Air 02/12/19 09:00 2.0 Laboratory Tests Test 02/13/19 05:47 White Blood Count Pending Red Blood Count 4.89 M/UL (4.70-6.10) Hemoglobin 14.8 G/DL (14.2-18.0) Hematocrit 44.6 % (42.0-52.0) Mean Corpuscular Volume 91 FL (80-99) Mean Corpuscular Hemoglobin 30.3 PG (27.0-31.0) Mean Corpuscular Hemoglobin Concent 33.2 G/DL (32.0-36.0) Red Cell Distribution Width 12.8 % (11.6-14.8) Platelet Count 270 K/UL (150-450) Mean Platelet Volume 7.6 FL (6.5-10.1) Neutrophils (%) (Auto) % (45.0-75.0) Lymphocytes (%) (Auto) % (20.0-45.0) Monocytes (%) (Auto) % (1.0-10.0) Eosinophils (%) (Auto) % (0.0-3.0) Basophils (%) (Auto) % (0.0-2.0) Differential Total Cells Counted 100 Neutrophils % (Manual) 67 % (45-75) Lymphocytes % (Manual) 28 % (20-45) Monocytes % (Manual) 5 % (1-10) Eosinophils % (Manual) 0 % (0-3) Basophils % (Manual) 0 % (0-2) Band Neutrophils 0 % (0-8) Lymphocytes Pending Platelet Estimate Adequate Platelet Morphology Normal Red Blood Cell Morphology Normal Prothrombin Time 10.2 SEC (9.30-11.50) Prothromb Time International Ratio 1.0 (0.9-1.1) Activated Partial Thromboplast Time 26 SEC (23-33) Sodium Level 140 MMOL/L (136-145) Potassium Level 3.9 MMOL/L (3.5-5.1) Chloride Level 108 MMOL/L (98-107) H Carbon Dioxide Level 18 MMOL/L (21-32) L Anion Gap 14 mmol/L (5-15) Blood Urea Nitrogen 38 mg/dL (7-18) H Creatinine 1.2 MG/DL (0.55-1.30) Estimat Glomerular Filtration Rate 59.9 mL/min (>60) Glucose Level 115 MG/DL (74-106) H Calcium Level 8.2 MG/DL (8.5-10.1) L Phosphorus Level 2.6 MG/DL (2.5-4.9) Magnesium Level 2.5 MG/DL (1.8-2.4) H Total Bilirubin 1.1 MG/DL (0.2-1.0) H Direct Bilirubin 0.4 MG/DL (0.0-0.3) H Aspartate Amino Transf (AST/SGOT) 53 U/L (15-37) H Alanine Aminotransferase (ALT/SGPT) 37 U/L (12-78) Alkaline Phosphatase 125 U/L (46-116) H Troponin I 0.010 ng/mL (0.000-0.056) Pro-B-Type Natriuretic Peptide 512 pg/mL (0-125) H Total Protein 7.9 G/DL (6.4-8.2) Albumin 3.3 G/DL (3.4-5.0) L Globulin 4.6 g/dL Albumin/Globulin Ratio 0.7 (1.0-2.7) L Amylase Level 62 U/L (25-115) Lipase 281 U/L (73-393) Digoxin Level 1.1 NG/ML (0.5-2.0) Percent CD3 Cells Pending Absolute CD3 Count Pending Percent CD4 Cells Pending Absolute CD4 Count Pending T-Lymphocyte CD4/CD8 Ratio Pending Percent CD8 Cells Pending Absolute CD8 Count Pending Intake and Output 02/12/19 02/13/19 19:00 07:00 Intake Total 500 ml 422.50 ml Output Total 400 ml 4 ml Balance 100 ml 418.50 ml Intake Oral 500 ml 120 ml IV Total 302.50 ml Output Urine Total 400 ml 2 ml Stool Total 2 ml # Voids 2 # Bowel Movements 2 Objective PHYSICAL EXAMINATION: GENERAL: The patient is a thin-appearing white male, in no apparent distress. HEENT: Eyes, pupils are equal and responsive to light and accommodation. Extraocular movements are intact. NECK: Supple without lymphadenopathy. CHEST: Lungs are clear to auscultation bilaterally without wheezes or rales. CARDIOVASCULAR: Regular rhythm and rate. S1 and S2 are normal without murmurs, rubs, or gallops. ABDOMEN: Soft, nontender, and nondistended. Positive bowel sounds. No evidence of hepatosplenomegaly. Currently, no rebound or guarding noted. EXTREMITIES: Negative for clubbing, cyanosis, or edema. RECTAL/GENITAL: Not performed. NEUROLOGIC: Cranial nerves II through XII are grossly intact without focal deficits. Assessment/Plan Assessment/Plan ASSESSMENT: This is an 68-year-old white male. 1. Generalized weakness. 2. Hypertension. 3. Hypothyroidism. 4. Rectal cancer. 5. Cerebrovascular disease. 6. HIV. 7. Paroxysmal supraventricular tachycardia. 8. Bibasilar atelectasis 9. hypokalemia 10. diarrhea 11. pneumonia TREATMENT: 1. Generalized weakness. Generalized weakness may be due to deconditioning- see physical therapy note. 2. Hypertension. Continue amlodipine, losartan, and metoprolol as above. 3. Hypothyroidism. Continue Levoxyl as above. 4. Rectal cancer. The patient is followed at [facility]. 5. History of cerebrovascular accident. 6. HIV. Continue HAART as above. 7. Paroxysmal supraventricular tachycardia. Cardiology consultation is pending with Dr Mendez 8. Await CT chest 9. Replace K+ 10. CT abdomen=enterocolitis. Await C.Diff culture. Start vanco 11. ABX=zosyn 12. ID consult=Trey Rosario MD Feb 13, 2019 15:47
[2019-02-13 16:00] VITALS: BP 126/64
[2019-02-13 16:49] LABS: ANION GAP 11 mmol/L (5-15); BLOOD UREA NITROGEN 32 mg/dL (7-18); CALCIUM 8.6 MG/DL (8.5-10.1); CARBON DIOXIDE 22 MMOL/L (21-32); CHLORIDE 107 MMOL/L (98-107); CREATININE 1.2 MG/DL (0.55-1.30); POTASSIUM 3.3 MMOL/L (3.5-5.1); SODIUM 139 MMOL/L (136-145)
--- NOTE | 2019-02-13 18:18 | NUR ---
NURSE NOTES: Md Cordero wrote a RX for HIV meds, faxed to [facility], they delivered meds at [id number], took down to pharmacy and gave to mindy
--- NOTE | 2019-02-13 18:25 | NUR ---
NURSE NOTES: pharmacy #[id number] bag given to Tami HIV meds
--- NOTE | 2019-02-13 19:48 | NUR ---
HAND-OFF: Report given to Barbara Parsons.
[2019-02-13 20:00] VITALS: BP 125/83
[2019-02-13] MEDS ORDERED: OYSCO 500+D TA1 EAC1 PO (20:01)
[2019-02-13] MEDS ORDERED: DOCUSATE SODIU100 MG ORAL (20:01)
[2019-02-13] MEDS ORDERED: OXYCODONE-ACET1 EAC3 ORAL (20:01)
[2019-02-13] MEDS: Vancomycin 1.25gm/D5W 275ml IVPB SCH ×2 (21:19)
[2019-02-13] MEDS: INTELENCE 200 MG ORAL SCH (21:54)
[2019-02-14] VITALS: BP 133/73
[2019-02-14 04:00] VITALS: BP 126/80
[2019-02-14] MEDS: dilTIAZem HCl 60mg tab ORAL SCH (06:00)
[2019-02-14] MEDS: Piperacillin/Tazobactam 3.375 GM in NS 110 ML IVPB SCH (06:00)
[2019-02-14] MEDS: Levothyroxine 25mcg tab ORAL SCH (06:46)
[2019-02-14 07:21] LABS: BASOPHILS % (AUTO) 0.5 % (0.0-2.0); EOSINOPHILS % (AUTO) 0.7 % (0.0-3.0); HEMATOCRIT 39.7 % (42.0-52.0); HEMOGLOBIN 13.4 G/DL (14.2-18.0); LYMPHOCYTES % (AUTO) 21.7 % (20.0-45.0); MEAN CORPUSCULAR VOLUME 91 FL (80-99); MONOCYTES % (AUTO) 7.3 % (1.0-10.0); NEUTROPHILS % (AUTO) 69.8 % (45.0-75.0); PLATELET COUNT 214 K/UL (150-450); RED BLOOD COUNT 4.37 M/UL (4.70-6.10); RED CELL DISTRIBUTION WIDTH 12.7 % (11.6-14.8); WHITE BLOOD COUNT 11.5 K/UL (4.8-10.8)
--- NOTE | 2019-02-14 07:40 | NUR ---
NURSE NOTES: Nurse report given by CHARLEY Jimenez. Patient's sleeping in bed, comfortable, no s/s of distress or SOB. IV is running fluid, patent and asymptomatic. Bed at lowest position, break engaged, call light within reach. Will continue to monitor.
[2019-02-14 08:00] VITALS: BP 153/80
[2019-02-14] MEDS: PARoxetine 20mg tab ORAL SCH (09:58)
[2019-02-14] MEDS: Tamsulosin 0.4mg cap ORAL SCH ×2 (09:58→18:00)
[2019-02-14] MEDS: Digoxin 0.125mg tab ORAL SCH (09:58)
[2019-02-14] MEDS: Vancomycin oral 125mg/2.5ml ORAL SCH ×4 (09:59→20:54)
--- NOTE | 2019-02-14 10:16 | Cardiology Progress Note ---
Assessment/Plan Status: stable Assessment/Plan Assessment/Plan Assessment/Plan 1. Atrial fibrillation, rapid ventricular response. Echocardiogram LVEF 60% Cardizem increased to 90 TID LVEF 60% Will need to start anticoagulation for elevated CHADs score 4 2. Hypertension. -controlled 3. Recurrent supraventricular tachycardia of sudden onset and termination. Continue Cardizem Follow up EP outpatient for ablation consideration 4. Human immunodeficiency virus. 5. Generalized weakness. 6. Rectal cancer. 7. Cerebrovascular accident. Subjective Cardiovascular: Reports: no symptoms Respiratory: Reports: no symptoms Gastrointestinal/Abdominal: Reports: no symptoms Genitourinary: Reports: no symptoms Objective Last 24 Hour Vital Signs Date Time Temp Pulse Resp B/P (MAP) Pulse Ox O2 Delivery O2 Flow Rate FiO2 02/14/19 08:09 Room Air 02/14/19 08:00 99.7 100 20 153/80 (104) 95 02/14/19 06:00 99 126/80 02/14/19 04:00 99 02/14/19 04:00 98.4 90 18 126/80 (95) 100 02/14/19 00:00 98.8 100 18 133/73 (93) 95 02/14/19 00:00 95 02/13/19 21:55 105 125/83 02/13/19 21:00 Room Air 02/13/19 20:00 99.8 105 20 125/83 (97) 95 02/13/19 20:00 89 02/13/19 16:00 98.4 75 20 126/64 (84) 94 02/13/19 15:08 99 02/13/19 13:24 87 126/89 02/13/19 11:59 98.6 87 20 126/89 (101) 96 02/13/19 11:50 99 Intake and Output 02/13/19 02/14/19 19:00 07:00 Intake Total 27.5 ml Balance 27.5 ml IV Total 27.5 ml # Voids 3 4 # Bowel Movements 2 Laboratory Tests Test 02/13/19 16:05 02/14/19 05:46 Sodium Level 139 MMOL/L (136-145) Potassium Level 3.3 MMOL/L (3.5-5.1) L Chloride Level 107 MMOL/L (98-107) Carbon Dioxide Level 22 MMOL/L (21-32) Anion Gap 11 mmol/L (5-15) Blood Urea Nitrogen 32 mg/dL (7-18) H Creatinine 1.2 MG/DL (0.55-1.30) Estimat Glomerular Filtration Rate 59.9 mL/min (>60) Glucose Level 113 MG/DL (74-106) H Calcium Level 8.6 MG/DL (8.5-10.1) White Blood Count 11.5 K/UL (4.8-10.8) H Red Blood Count 4.37 M/UL (4.70-6.10) L Hemoglobin 13.4 G/DL (14.2-18.0) L Hematocrit 39.7 % (42.0-52.0) L Mean Corpuscular Volume 91 FL (80-99) Mean Corpuscular Hemoglobin 30.6 PG (27.0-31.0) Mean Corpuscular Hemoglobin Concent 33.7 G/DL (32.0-36.0) Red Cell Distribution Width 12.7 % (11.6-14.8) Platelet Count 214 K/UL (150-450) Mean Platelet Volume 7.3 FL (6.5-10.1) Neutrophils (%) (Auto) 69.8 % (45.0-75.0) Lymphocytes (%) (Auto) 21.7 % (20.0-45.0) Monocytes (%) (Auto) 7.3 % (1.0-10.0) Eosinophils (%) (Auto) 0.7 % (0.0-3.0) Basophils (%) (Auto) 0.5 % (0.0-2.0) Microbiology Date/Time Source Procedure Growth Status 02/13/19 14:06 Sputum Induced Gram Stain Pending Resulted 02/13/19 14:06 Sputum Induced Sputum Culture - Preliminary NO GROWTH Resulted 02/13/19 13:34 Stool Clostridium difficile Toxin Assay - Final Complete Filsoof,Price Krause MD Feb 14, 2019 10:16
[2019-02-14] MEDS: INTELENCE 200 MG ORAL SCH ×2 (10:50→18:00)
--- NOTE | 2019-02-14 10:52 | Pulmonology Progress Note ---
Assessment/Plan Problems: (1) Sepsis (2) Febrile illness, acute (3) Atrial fibrillation (4) History of rectal cancer (5) BPH (benign prostatic hyperplasia) (6) Degenerative disc disease (7) Severe protein-calorie malnutrition (8) HIV (human immunodeficiency virus infection) Assessment/Plan wbc is lower f/u cultures ADD vanco po for C. Diff continue abx check electrolytes watch the heart rate Subjective ROS Limited/Unobtainable: No Constitutional: Reports: no symptoms HEENT: Repors: no symptoms Respiratory: Reports: no symptoms Allergies: Coded Allergies: CODEINE (Unverified Allergy, Unknown, 11/28/17) EMTRICITABINE (Verified Allergy, Unknown, anxiousness, 08/31/18) SULFAMETHOXAZOLE (Unverified Allergy, Unknown, 10/27/17) TENOFOVIR (Verified Allergy, Unknown, anxiousness, 08/31/18) TRIMETHOPRIM (Unverified Allergy, Unknown, 10/27/17) Objective Last 24 Hour Vital Signs Date Time Temp Pulse Resp B/P (MAP) Pulse Ox O2 Delivery O2 Flow Rate FiO2 02/14/19 09:58 100 02/14/19 08:09 Room Air 02/14/19 08:00 99.7 100 20 153/80 (104) 95 02/14/19 06:00 99 126/80 02/14/19 04:00 99 02/14/19 04:00 98.4 90 18 126/80 (95) 100 02/14/19 00:00 98.8 100 18 133/73 (93) 95 02/14/19 00:00 95 02/13/19 21:55 105 125/83 02/13/19 21:00 Room Air 02/13/19 20:00 99.8 105 20 125/83 (97) 95 02/13/19 20:00 89 02/13/19 16:00 98.4 75 20 126/64 (84) 94 02/13/19 15:08 99 02/13/19 13:24 87 126/89 02/13/19 11:59 98.6 87 20 126/89 (101) 96 02/13/19 11:50 99 Intake and Output 02/13/19 02/14/19 19:00 07:00 Intake Total 27.5 ml Balance 27.5 ml IV Total 27.5 ml # Voids 3 4 # Bowel Movements 2 General Appearance: WD/WN HEENT: normocephalic, atraumatic Respiratory/Chest: chest wall non-tender, lungs clear Cardiovascular: normal peripheral pulses, normal rate, regular rhythm Abdomen: normal bowel sounds, soft, non tender Genitourinary: normal external genitalia Skin: no lesions 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: wafer cutter II-XII grossly normal Microbiology Date/Time Source Procedure Growth Status 02/13/19 14:06 Sputum Induced Gram Stain Pending Resulted 02/13/19 14:06 Sputum Induced Sputum Culture - Preliminary NO GROWTH Resulted 02/13/19 13:34 Stool Clostridium difficile Toxin Assay - Final Complete Laboratory Tests 02/13/19 16:05: Sodium Level 139, Potassium Level 3.3L, Chloride Level 107, Carbon Dioxide Level 22, Anion Gap 11, Blood Urea Nitrogen 32H, Creatinine 1.2, Estimat Glomerular Filtration Rate 59.9, Glucose Level 113H, Calcium Level 8.6 02/14/19 05:46: White Blood Count 11.5H, Red Blood Count 4.37L, Hemoglobin 13.4L, Hematocrit 39.7L, Mean Corpuscular Volume 91, Mean Corpuscular Hemoglobin 30.6, Mean Corpuscular Hemoglobin Concent 33.7, Red Cell Distribution Width 12.7, Platelet Count 214, Mean Platelet Volume 7.3, Neutrophils (%) (Auto) 69.8, Lymphocytes (% ) (Auto) 21.7, Monocytes (%) (Auto) 7.3, Eosinophils (%) (Auto) 0.7, Basophils ( %) (Auto) 0.5 Current Medications Medications (Trade) Dose Ordered Sig/Roman Route PRN Reason Start Time Stop Time Status Last Admin Dose Admin Acetaminophen (Tylenol) 650 mg Q4H PRN ORAL fever 02/10/19 14:00 03/12/19 13:59 02/10/19 20:39 Barium Sulfate (Readi-Cat 2) 450 ml NOW PRN ORAL Radiology Procedure 02/12/19 13:15 02/14/19 13:09 Dextrose (Dextrose 50%) 25 ml Q30M PRN IV Hypoglycemia 02/10/19 14:15 03/12/19 14:05 Dextrose (Dextrose 50%) 50 ml Q30M PRN IV hypoglycemia 02/10/19 14:15 03/12/19 14:14 Digoxin (Lanoxin) 0.125 mg DAILY ORAL 02/14/19 09:00 03/16/19 08:59 02/14/19 09:58 Diltiazem HCl (Cardizem) 90 mg EVERY 8 HOURS ORAL 02/14/19 14:00 03/14/19 13:59 Famotidine (Pepcid) 10 mg BID PRN ORAL heartburn 02/11/19 22:30 03/13/19 22:29 02/13/19 01:26 Gabapentin (Neurontin) 600 mg THREE TIMES A DAY ORAL 02/10/19 18:00 03/12/19 17:59 02/14/19 09:58 Iopamidol (Isovue-300 100ml) 100 ml NOW PRN INJ Radiology Procedure 02/12/19 13:15 02/14/19 13:14 Levothyroxine Sodium (Synthroid) 25 mcg DAILY@0630 ORAL 02/11/19 06:30 03/13/19 06:29 02/14/19 06:46 Lorazepam (Ativan 2mg/ml 1ml) 0.5 mg Q4H PRN IV For Anxiety 02/10/19 14:00 02/17/19 13:59 Meningococcal Polysaccharide Vacc (Menomune-A/C/Y/ W-135) 0.5 ml ONCE ONCE IM 02/13/19 18:00 02/13/19 18:01 UNV Metoclopramide HCl (Reglan) 5 mg Q6H PRN IVP Nausea & Vomiting 02/12/19 07:30 03/14/19 07:29 02/13/19 01:27 Mirtazapine (Remeron) 15 mg BEDTIME ORAL 02/10/19 21:00 03/12/19 20:59 02/13/19 21:53 Morphine Sulfate (Morphine Sulfate) 1 mg Q4H PRN IVP For Pain 02/10/19 14:00 02/17/19 13:59 02/12/19 14:39 Paroxetine HCl (Paxil) 40 mg DAILY ORAL 02/11/19 09:00 03/13/19 08:59 02/14/19 09:58 Patient Own Medication (Patient's Own Med) 1 ea BID ORAL 02/13/19 20:00 03/15/19 19:59 02/13/19 21:54 Patient Own Medication (Patient's Own Med) 1 ea DAILY ORAL 02/13/19 20:00 03/15/19 19:59 02/13/19 21:54 Patient Own Medication (Patient's Own Med) 1 ea DAILY ORAL 02/13/19 20:00 03/15/19 19:59 02/13/19 21:54 Piperacillin Sod/ Tazobactam Sod 3.375 gm/Sodium Chloride 110 ml @ 27.5 mls/hr EVERY 8 HOURS IVPB 02/12/19 14:00 02/17/19 13:59 02/14/19 06:00 Polyethylene Glycol (Miralax) 17 gm HSPRN PRN ORAL Constipation 02/10/19 14:00 03/12/19 13:59 Tamsulosin HCl (Flomax) 0.4 mg BID ORAL 02/10/19 18:00 03/12/19 17:59 02/14/19 09:58 Vancomycin HCl (Firvanq) 125 mg FOUR TIMES A DAY ORAL 02/13/19 13:00 02/20/19 12:59 02/14/19 09:59 Vancomycin HCl (Vanco rx to dose) 1 ea DAILY PRN MISC Per rx protocol 02/12/19 13:15 03/14/19 13:14 Vancomycin HCl 1.25 gm/Dextrose 275 ml @ 183.33 mls/ hr Q24H IVPB 02/12/19 20:00 02/17/19 19:59 02/13/19 21:19 Zolpidem Tartrate (Ambien) 5 mg HSPRN PRN ORAL Insomnia 02/10/19 14:00 02/17/19 13:59 Oliverio Rm MD Feb 14, 2019 10:52
--- NOTE | 2019-02-14 11:41 | CDS Physician Query ---
Clarification is required for compliance, coding accuracy, and to reflect severity of illness for this patient Dear Dr. Whitaker, CDS: Tiffany Cazares 02-14-19 Exercise your independent professional judgment when responding to query. Question asked do not imply a particular answer is desired/expected Clinical Documentation States: "Sepsis" documented in the Pulmonology Progress Notes Clinical Findings Show: Patient started on Vancomycin 02-12-19, Vital signs Temp 103.6 Pulse 112 RR 16 WBC 7.7 General variables [ X] Fever (temp >38.3 degrees C or 100.4 degrees F) [ ] Hypothermia (temp<36 degrees C or 96.0 degrees F) [X ] Heart rate > 90/min [ ] Tachypnea/RR > 20 bpm [ ] pCO2 < 32 mmHg [ ] Altered mental status [ ] Significant edema or positive fluid balance (>20 ml/kg over 24h) [ ] Hyperglycemia ( Plasma >140 mg/dL or 7.7 mmol/L) in the abscence of diabetes Inflammatory variables [ ] Leukocytosis (WBC count > 12,000 L1 [ ] Leukopenia (WBC count < 4000 L1) [ ] Normal WBC count with greater than 10% immature forms (Bandemia) Hemodynamic variables [ ] Arterial hypotension (SBP < 90 mm Hg, MAP < 70 mm Hg, or an SBP decrease > 40 mm Hg in adults or less than two sd below normal for age) Organ dysfunction variables [ ] Arterial hypoxemia (Pao2/Fio2 < 300) [ ] Acute oliguria (urine output < 0.5 mL/kg/hr for at least 2 hrs despite adequate fluid resuscitation) [ ] Creatinine increase > 0.5 mg/dL or 44.2 mol/L [ ] Coagulation abnormalities (INR > 1.5 or aPTT > 60 s) [ ] Ileus (absent bowel sounds) [ ] Thrombocytopenia (platelet count < 100,000 L1) [ ] Hyperbilirubinemia (plasma total bilirubin > 4 mg/dL or 70 mol/L) Tissue Perfusion Variables [ ] Hyperlactatemia (> 1 mmol/L) [ ] Decreased capillary refill or mottling Was SEPSIS present on admission? [X ] Yes [ ] No [ ] Clinically undeterminable Physician signature Date Please also document in your Progress Notes and/or Discharge Summary and indicate if the condition was present on admission. MTDD
[2019-02-14 12:00] VITALS: BP 149/79
--- NOTE | 2019-02-14 12:19 | Internal Med Progress Note ---
Subjective Date of Service: Feb 14, 2019 Physician Name Trey Whitaker Attending Physician Carlos Barragan MD Current Medications Medications (Trade) Dose Ordered Sig/Roman Route PRN Reason Start Time Stop Time Status Last Admin Dose Admin Acetaminophen (Tylenol) 650 mg Q4H PRN ORAL fever 02/10/19 14:00 03/12/19 13:59 02/10/19 20:39 Barium Sulfate (Readi-Cat 2) 450 ml NOW PRN ORAL Radiology Procedure 02/12/19 13:15 02/14/19 13:09 Dextrose (Dextrose 50%) 25 ml Q30M PRN IV Hypoglycemia 02/10/19 14:15 03/12/19 14:05 Dextrose (Dextrose 50%) 50 ml Q30M PRN IV hypoglycemia 02/10/19 14:15 03/12/19 14:14 Digoxin (Lanoxin) 0.125 mg DAILY ORAL 02/14/19 09:00 03/16/19 08:59 02/14/19 09:58 Diltiazem HCl (Cardizem) 90 mg EVERY 8 HOURS ORAL 02/14/19 14:00 03/14/19 13:59 Famotidine (Pepcid) 10 mg BID PRN ORAL heartburn 02/11/19 22:30 03/13/19 22:29 02/13/19 01:26 Gabapentin (Neurontin) 600 mg THREE TIMES A DAY ORAL 02/10/19 18:00 03/12/19 17:59 02/14/19 09:58 Iopamidol (Isovue-300 100ml) 100 ml NOW PRN INJ Radiology Procedure 02/12/19 13:15 02/14/19 13:14 Levothyroxine Sodium (Synthroid) 25 mcg DAILY@0630 ORAL 02/11/19 06:30 03/13/19 06:29 02/14/19 06:46 Lorazepam (Ativan 2mg/ml 1ml) 0.5 mg Q4H PRN IV For Anxiety 02/10/19 14:00 02/17/19 13:59 Meningococcal Polysaccharide Vacc (Menomune-A/C/Y/ W-135) 0.5 ml ONCE ONCE IM 02/13/19 18:00 02/13/19 18:01 UNV Metoclopramide HCl (Reglan) 5 mg Q6H PRN IVP Nausea & Vomiting 02/12/19 07:30 03/14/19 07:29 02/13/19 01:27 Mirtazapine (Remeron) 15 mg BEDTIME ORAL 02/10/19 21:00 03/12/19 20:59 02/13/19 21:53 Morphine Sulfate (Morphine Sulfate) 1 mg Q4H PRN IVP For Pain 02/10/19 14:00 02/17/19 13:59 02/12/19 14:39 Paroxetine HCl (Paxil) 40 mg DAILY ORAL 02/11/19 09:00 03/13/19 08:59 02/14/19 09:58 Patient Own Medication (Patient's Own Med) 1 ea BID ORAL 02/13/19 20:00 03/15/19 19:59 02/14/19 10:50 Patient Own Medication (Patient's Own Med) 1 ea DAILY ORAL 02/13/19 20:00 03/15/19 19:59 02/14/19 09:00 Patient Own Medication (Patient's Own Med) 1 ea DAILY ORAL 02/13/19 20:00 03/15/19 19:59 02/14/19 10:50 Piperacillin Sod/ Tazobactam Sod 3.375 gm/Sodium Chloride 110 ml @ 27.5 mls/hr EVERY 8 HOURS IVPB 02/12/19 14:00 02/17/19 13:59 02/14/19 06:00 Polyethylene Glycol (Miralax) 17 gm HSPRN PRN ORAL Constipation 02/10/19 14:00 03/12/19 13:59 Tamsulosin HCl (Flomax) 0.4 mg BID ORAL 02/10/19 18:00 03/12/19 17:59 02/14/19 09:58 Vancomycin HCl (Firvanq) 125 mg FOUR TIMES A DAY ORAL 02/13/19 13:00 02/20/19 12:59 02/14/19 09:59 Vancomycin HCl (Vanco rx to dose) 1 ea DAILY PRN MISC Per rx protocol 02/12/19 13:15 03/14/19 13:14 Vancomycin HCl 1.25 gm/Dextrose 275 ml @ 183.33 mls/ hr Q24H IVPB 02/12/19 20:00 02/17/19 19:59 02/13/19 21:19 Zolpidem Tartrate (Ambien) 5 mg HSPRN PRN ORAL Insomnia 02/10/19 14:00 02/17/19 13:59 Allergies: Coded Allergies: CODEINE (Unverified Allergy, Unknown, 11/28/17) EMTRICITABINE (Verified Allergy, Unknown, anxiousness, 08/31/18) SULFAMETHOXAZOLE (Unverified Allergy, Unknown, 10/27/17) TENOFOVIR (Verified Allergy, Unknown, anxiousness, 08/31/18) TRIMETHOPRIM (Unverified Allergy, Unknown, 10/27/17) ROS Limited/Unobtainable: Yes Subjective 68 YO M admitted with gen weakness. Cover for Int Med-Dr Barragan. C/O diarrhea Objective Last Vital Signs Date Time Temp Pulse Resp B/P (MAP) Pulse Ox O2 Delivery O2 Flow Rate FiO2 02/14/19 09:58 100 02/14/19 08:09 Room Air 02/14/19 08:00 99.7 20 153/80 (104) 95 02/12/19 09:00 2.0 Laboratory Tests Test 02/13/19 16:05 02/14/19 05:46 Sodium Level 139 MMOL/L (136-145) Potassium Level 3.3 MMOL/L (3.5-5.1) L Chloride Level 107 MMOL/L (98-107) Carbon Dioxide Level 22 MMOL/L (21-32) Anion Gap 11 mmol/L (5-15) Blood Urea Nitrogen 32 mg/dL (7-18) H Creatinine 1.2 MG/DL (0.55-1.30) Estimat Glomerular Filtration Rate 59.9 mL/min (>60) Glucose Level 113 MG/DL (74-106) H Calcium Level 8.6 MG/DL (8.5-10.1) White Blood Count 11.5 K/UL (4.8-10.8) H Red Blood Count 4.37 M/UL (4.70-6.10) L Hemoglobin 13.4 G/DL (14.2-18.0) L Hematocrit 39.7 % (42.0-52.0) L Mean Corpuscular Volume 91 FL (80-99) Mean Corpuscular Hemoglobin 30.6 PG (27.0-31.0) Mean Corpuscular Hemoglobin Concent 33.7 G/DL (32.0-36.0) Red Cell Distribution Width 12.7 % (11.6-14.8) Platelet Count 214 K/UL (150-450) Mean Platelet Volume 7.3 FL (6.5-10.1) Neutrophils (%) (Auto) 69.8 % (45.0-75.0) Lymphocytes (%) (Auto) 21.7 % (20.0-45.0) Monocytes (%) (Auto) 7.3 % (1.0-10.0) Eosinophils (%) (Auto) 0.7 % (0.0-3.0) Basophils (%) (Auto) 0.5 % (0.0-2.0) Microbiology Date/Time Source Procedure Growth Status 02/13/19 14:06 Sputum Induced Gram Stain Pending Resulted 02/13/19 14:06 Sputum Induced Sputum Culture - Preliminary NO GROWTH Resulted 02/13/19 13:34 Stool Clostridium difficile Toxin Assay - Final Complete Intake and Output 02/13/19 02/14/19 19:00 07:00 Intake Total 27.5 ml Balance 27.5 ml IV Total 27.5 ml # Voids 3 4 # Bowel Movements 2 Objective PHYSICAL EXAMINATION: GENERAL: The patient is a thin-appearing white male, in no apparent distress. HEENT: Eyes, pupils are equal and responsive to light and accommodation. Extraocular movements are intact. NECK: Supple without lymphadenopathy. CHEST: Lungs are clear to auscultation bilaterally without wheezes or rales. CARDIOVASCULAR: Regular rhythm and rate. S1 and S2 are normal without murmurs, rubs, or gallops. ABDOMEN: Soft, nontender, and nondistended. Positive bowel sounds. No evidence of hepatosplenomegaly. Currently, no rebound or guarding noted. EXTREMITIES: Negative for clubbing, cyanosis, or edema. RECTAL/GENITAL: Not performed. NEUROLOGIC: Cranial nerves II through XII are grossly intact without focal deficits. Assessment/Plan Assessment/Plan ASSESSMENT: This is an 68-year-old white male. 1. Generalized weakness. 2. Hypertension. 3. Hypothyroidism. 4. Rectal cancer. 5. Cerebrovascular disease. 6. HIV. 7. Paroxysmal supraventricular tachycardia. 8. Bibasilar atelectasis 9. hypokalemia 10. Clostridium dificile diarrhea 11. pneumonia TREATMENT: 1. Generalized weakness. Generalized weakness may be due to deconditioning- see physical therapy note. 2. Hypertension. Continue amlodipine, losartan, and metoprolol as above. 3. Hypothyroidism. Continue Levoxyl as above. 4. Rectal cancer. The patient is followed at [facility]. 5. History of cerebrovascular accident. 6. HIV. Continue HAART as above. 7. Paroxysmal supraventricular tachycardia. Cardiology consultation is pending with Dr Mendez 8. Await CT chest 9. Replace K+ 10. CT abdomen=enterocolitis. C.Diff POSITIVE. Start vanco 11. ABX=zosyn 12. ID consult=Trey Rosario MD Feb 14, 2019 12:19
--- NOTE | 2019-02-14 12:44 | Infectious Diseases Prog Note ---
Assessment/Plan Assessment/Plan Abx: IV Vancomycin x1 02/10 Zosyn x1 02/10 Assessment: Sepsis--Cdiff colitis, 1st recurrence -CT abd/p: Sigmoid and rectal colonic wall thickening with some mucosal edema along with scattered small bowel loops with bowel wall thickening suggestive of enterocolitis. Duodenal wall thickening with associated fat stranding, which may share etiology with enterocolitis; however, correlation with lipase is recommended to exclude groove pancreatitis. Evidence of infectious/inflammatory small airways disease; patchy left basilar airspace consolidation raises possibility of developing pneumonia. Refluxing esophagus with distal esophageal wall thickening; correlation with recent endoscopy is recommended. -CXR: Bibasilar opacities likely representing subsegmental atelectasis. -u/a neg -BCx NTD -normal lipase and amylase -sp cx: normal resp thomas to date Fever; SP Leukocytosis, improving hx of Cdiff 09/2018- - failed oral vancomycin; sp tx w/ Fidaxomicin --09/06 Cdiff toxin a/b +; repeat Cdiff neg x2 -09/06 SP Colonoscopy: proctitis -stool cx: normal thomas -Giardia ag, cryptosporidium neg Hx of UTI 08/2018 -u/a wbc 10-15, shirley neg, leuk +3; ucx >100K PROTEUS MIRABILIS ( I Levo; R Amp, bactrim, Cipro, Nitro; S Ceftriaxone) HIV/AIDS- on ARV =02/19 CD4 407 (11%) -11/19 CD4 392 (17.4%) -09/2018 182 (10.1%), VL UD -11/2017 CD4 323 Rectal CA (ongoing w/u at [facility]) CVA 2004 HTN Plan: -D/c empiric IV Vancomycn and Zosyn #4 pending cultures -Cont oral vancomycin #2/10-14 -12/01 Sp Cefepime #14, Flagyl #14 -11/22 SP IV Vancomycin #6 -11/17 SP Zosyn x1 -09/23 SP Fidaxomicin #10 -09/13/18 SP PO Vancomycin #8 -f/u cx -Monitor CBC/CMP, temperatures -f/u sp cx, stool cx -amylase, lipase Thank you for this consultation. Will continue to follow along with you. Discussed with RN Subjective Allergies: Coded Allergies: CODEINE (Unverified Allergy, Unknown, 11/28/17) EMTRICITABINE (Verified Allergy, Unknown, anxiousness, 08/31/18) SULFAMETHOXAZOLE (Unverified Allergy, Unknown, 10/27/17) TENOFOVIR (Verified Allergy, Unknown, anxiousness, 08/31/18) TRIMETHOPRIM (Unverified Allergy, Unknown, 10/27/17) Subjective afebrile in 72hrs wbc iimproved Bcx NTD Objective Vital Signs Last 24 Hour Vital Signs Date Time Temp Pulse Resp B/P (MAP) Pulse Ox O2 Delivery O2 Flow Rate FiO2 02/14/19 12:00 98.1 97 20 149/79 (102) 95 02/14/19 09:58 100 02/14/19 08:09 Room Air 02/14/19 08:00 95 02/14/19 08:00 99.7 100 20 153/80 (104) 95 02/14/19 06:00 99 126/80 02/14/19 04:00 99 02/14/19 04:00 98.4 90 18 126/80 (95) 100 02/14/19 00:00 98.8 100 18 133/73 (93) 95 02/14/19 00:00 95 02/13/19 21:55 105 125/83 02/13/19 21:00 Room Air 02/13/19 20:00 99.8 105 20 125/83 (97) 95 02/13/19 20:00 89 02/13/19 16:00 98.4 75 20 126/64 (84) 94 02/13/19 15:08 99 02/13/19 13:24 87 126/89 Height (Feet): 5 Height (Inches): 7.00 Weight (Pounds): 150 Objective GENERAL: The patient is a thin-appearing white male, in no apparent distress. HEENT: Eyes, pupils are equal and responsive to light and accommodation. Extraocular movements are intact. NECK: Supple without lymphadenopathy. CHEST: Lungs are clear to auscultation bilaterally without wheezes or rales. CARDIOVASCULAR: Regular rhythm and rate. S1 and S2 are normal without murmurs, rubs, or gallops. ABDOMEN: Soft, nontender, and nondistended. Positive bowel sounds. No evidence of hepatosplenomegaly. Currently, no rebound or guarding noted. EXTREMITIES: Negative for clubbing, cyanosis, or edema. NEUROLOGIC: Cranial nerves II through XII are grossly intact without focal deficits. Microbiology Date/Time Source Procedure Growth Status 02/13/19 14:06 Sputum Induced Gram Stain Pending Resulted 02/13/19 14:06 Sputum Induced Sputum Culture - Preliminary NO GROWTH Resulted 02/13/19 13:34 Stool Clostridium difficile Toxin Assay - Final Complete Laboratory Tests Test 02/13/19 16:05 02/14/19 05:46 Sodium Level 139 MMOL/L (136-145) Potassium Level 3.3 MMOL/L (3.5-5.1) L Chloride Level 107 MMOL/L (98-107) Carbon Dioxide Level 22 MMOL/L (21-32) Anion Gap 11 mmol/L (5-15) Blood Urea Nitrogen 32 mg/dL (7-18) H Creatinine 1.2 MG/DL (0.55-1.30) Estimat Glomerular Filtration Rate 59.9 mL/min (>60) Glucose Level 113 MG/DL (74-106) H Calcium Level 8.6 MG/DL (8.5-10.1) White Blood Count 11.5 K/UL (4.8-10.8) H Red Blood Count 4.37 M/UL (4.70-6.10) L Hemoglobin 13.4 G/DL (14.2-18.0) L Hematocrit 39.7 % (42.0-52.0) L Mean Corpuscular Volume 91 FL (80-99) Mean Corpuscular Hemoglobin 30.6 PG (27.0-31.0) Mean Corpuscular Hemoglobin Concent 33.7 G/DL (32.0-36.0) Red Cell Distribution Width 12.7 % (11.6-14.8) Platelet Count 214 K/UL (150-450) Mean Platelet Volume 7.3 FL (6.5-10.1) Neutrophils (%) (Auto) 69.8 % (45.0-75.0) Lymphocytes (%) (Auto) 21.7 % (20.0-45.0) Monocytes (%) (Auto) 7.3 % (1.0-10.0) Eosinophils (%) (Auto) 0.7 % (0.0-3.0) Basophils (%) (Auto) 0.5 % (0.0-2.0) Current Medications Medications (Trade) Dose Ordered Sig/Roman Route PRN Reason Start Time Stop Time Status Last Admin Dose Admin Acetaminophen (Tylenol) 650 mg Q4H PRN ORAL fever 02/10/19 14:00 03/12/19 13:59 02/10/19 20:39 Barium Sulfate (Readi-Cat 2) 450 ml NOW PRN ORAL Radiology Procedure 02/12/19 13:15 02/14/19 13:09 Dextrose (Dextrose 50%) 25 ml Q30M PRN IV Hypoglycemia 02/10/19 14:15 03/12/19 14:05 Dextrose (Dextrose 50%) 50 ml Q30M PRN IV hypoglycemia 02/10/19 14:15 03/12/19 14:14 Digoxin (Lanoxin) 0.125 mg DAILY ORAL 02/14/19 09:00 03/16/19 08:59 02/14/19 09:58 Diltiazem HCl (Cardizem) 90 mg EVERY 8 HOURS ORAL 02/14/19 14:00 03/14/19 13:59 Famotidine (Pepcid) 10 mg BID PRN ORAL heartburn 02/11/19 22:30 03/13/19 22:29 02/13/19 01:26 Gabapentin (Neurontin) 600 mg THREE TIMES A DAY ORAL 02/10/19 18:00 03/12/19 17:59 02/14/19 09:58 Iopamidol (Isovue-300 100ml) 100 ml NOW PRN INJ Radiology Procedure 02/12/19 13:15 02/14/19 13:14 Levothyroxine Sodium (Synthroid) 25 mcg DAILY@0630 ORAL 02/11/19 06:30 03/13/19 06:29 02/14/19 06:46 Lorazepam (Ativan 2mg/ml 1ml) 0.5 mg Q4H PRN IV For Anxiety 02/10/19 14:00 02/17/19 13:59 Meningococcal Polysaccharide Vacc (Menomune-A/C/Y/ W-135) 0.5 ml ONCE ONCE IM 02/13/19 18:00 02/13/19 18:01 UNV Metoclopramide HCl (Reglan) 5 mg Q6H PRN IVP Nausea & Vomiting 02/12/19 07:30 03/14/19 07:29 02/13/19 01:27 Mirtazapine (Remeron) 15 mg BEDTIME ORAL 02/10/19 21:00 03/12/19 20:59 02/13/19 21:53 Morphine Sulfate (Morphine Sulfate) 1 mg Q4H PRN IVP For Pain 02/10/19 14:00 02/17/19 13:59 02/12/19 14:39 Paroxetine HCl (Paxil) 40 mg DAILY ORAL 02/11/19 09:00 03/13/19 08:59 02/14/19 09:58 Patient Own Medication (Patient's Own Med) 1 ea BID ORAL 02/13/19 20:00 03/15/19 19:59 02/14/19 10:50 Patient Own Medication (Patient's Own Med) 1 ea DAILY ORAL 02/13/19 20:00 03/15/19 19:59 02/14/19 09:00 Patient Own Medication (Patient's Own Med) 1 ea DAILY ORAL 02/13/19 20:00 03/15/19 19:59 02/14/19 10:50 Piperacillin Sod/ Tazobactam Sod 3.375 gm/Sodium Chloride 110 ml @ 27.5 mls/hr EVERY 8 HOURS IVPB 02/12/19 14:00 02/17/19 13:59 02/14/19 06:00 Polyethylene Glycol (Miralax) 17 gm HSPRN PRN ORAL Constipation 02/10/19 14:00 03/12/19 13:59 Potassium Chloride (K-Dur) 40 meq ONCE ORAL 02/14/19 12:30 02/14/19 13:30 Tamsulosin HCl (Flomax) 0.4 mg BID ORAL 02/10/19 18:00 03/12/19 17:59 02/14/19 09:58 Vancomycin HCl (Firvanq) 125 mg FOUR TIMES A DAY ORAL 02/13/19 13:00 02/20/19 12:59 02/14/19 09:59 Vancomycin HCl (Vanco rx to dose) 1 ea DAILY PRN MISC Per rx protocol 02/12/19 13:15 03/14/19 13:14 Vancomycin HCl 1.25 gm/Dextrose 275 ml @ 183.33 mls/ hr Q24H IVPB 02/12/19 20:00 02/17/19 19:59 02/13/19 21:19 Zolpidem Tartrate (Ambien) 5 mg HSPRN PRN ORAL Insomnia 02/10/19 14:00 02/17/19 13:59 Miranda Cordero M.D. Feb 14, 2019 12:44
[2019-02-14] MEDS: dilTIAZem HCl 90mg tab ORAL SCH ×2 (13:00→21:31)
[2019-02-14] MEDS ORDERED: Varibar Pudding 230ml MC PRN (13:30)
[2019-02-14] MEDS ORDERED: Varibar Honey 250ml MC PRN (13:30)
[2019-02-14] MEDS ORDERED: Varibar Nectar 240ml MC PRN (13:30)
--- NOTE | 2019-02-14 14:07 | NUR ---
SPEECH THERAPY NOTE AND SWALLOW CONSULTATION: REFERRED FOR SWALLOW EVAL BY DR MENDEZ, SEE FULL REPORT TO FOLLOW. DYSPHAGIA RISK FACTORS FOR THIS 68 Y.O.M.: ACUTE ISSUES: FEVER, WEAKNESS COUPLE OF DAYS. NAUSEATED AND VOMITING. PER CXR Bibasilar opacities likely representing subsegmental atelectasis. 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 HAD SWALLOW EVAL AND [place] [facility] [place] AND HAD MILD-MOD OROPHARYNGEAL DYSPHAGIA AND MILD ESOPHAGEAL DYSPHAGIA AND POSSIBLE CP BAR BUT PLACED ON REG DIET AND THIN LIQUIDS WITH POSTED PRECAUTIONS AND SWALLOW EVAL 11/2018 (REG DIET THIN LIQUIDS GOOD INTAKE). NO POLST NOR AD IN CHART REGARDING TUBE FEEDING PREFERENCES. CURRENTLY ON CLEAR LIQUIDS INTAKE VARIED REFUSES OR 25/50/75%. PER RN AND MEDS WHOLE. PER RN, NO OVERT ASPIRATION WITH THIN LIQUIDS BUT COUGHED AND SPIT OUT WATER AND LARGE PILL EVEN WHEN PILL CUT IN HALF. INITIAL IMPRESSIONS: NOT ABLE TO TOLERATE PO AT THIS TIME. NAUSEATED AND VOMITING UP FOR THE PAST TWO DAYS EVEN ON CLEAR LIQUID DIET AND MEDS RECOMMENDATIONS: CONSIDER GI CONSULT AND WILL HOLD ON SWALLOW EVAL UNTIL NAUSEA/VOMITING ELIMINATED. D/W RN WHO WILL TELL
--- NOTE | 2019-02-14 14:11 | NUR ---
*-* INSURANCE *-* ALL CLINICALS AND REVIEWS [facility] BE[facility] [id number] F: [phone] P: [phone]
[2019-02-14] MEDS: Metoclopramide 10mg/2ml Inj IVP PRN ×2 (14:12→20:54)
[2019-02-14 16:00] VITALS: BP 120/68
--- NOTE | 2019-02-14 19:00 | NUR ---
HAND-OFF: Report given to CHARLEY Jarvis. Plan of care endorsed.
--- NOTE | 2019-02-14 19:01 | NUR ---
NURSE NOTES: Received pt from CHARLEY Arce. Pt is awake and resting in bed. Tolerating room air. IV site intact and patent. Bed locked in lowest position, call light within reach. Will continue with plan of care.
[2019-02-14 20:00] VITALS: BP 135/86
[2019-02-15] VITALS: BP 138/83
[2019-02-15 04:00] VITALS: BP 120/80
[2019-02-15] MEDS: dilTIAZem HCl 90mg tab ORAL SCH ×3 (06:33→21:31)
[2019-02-15] MEDS: Levothyroxine 25mcg tab ORAL SCH (06:33)
--- NOTE | 2019-02-15 07:20 | NUR ---
NURSE NOTES: Report received from CHARLEY Gómez. Patient awake. AOx4. In RA. Denies any pain SOB, N/V. R FA 22g IV patent, flushed and SL. Bed on lowest position, side rails upx2, brakes engaged. White board updated. Plan of the day communicated. Call light within easy reach.
--- NOTE | 2019-02-15 07:20 | NUR ---
HAND-OFF: Report given to CHARLEY Christianson. Endorsed plan of care.
[2019-02-15 07:31] LABS: ANION GAP 15 mmol/L (5-15); BLOOD UREA NITROGEN 31 mg/dL (7-18); CALCIUM 8.9 MG/DL (8.5-10.1); CARBON DIOXIDE 17 MMOL/L (21-32); CHLORIDE 108 MMOL/L (98-107); CREATININE 1.1 MG/DL (0.55-1.30); POTASSIUM 3.2 MMOL/L (3.5-5.1); SODIUM 140 MMOL/L (136-145)
[2019-02-15 07:32] LABS: BASOPHILS % (AUTO) 0.3 % (0.0-2.0); EOSINOPHILS % (AUTO) 0.3 % (0.0-3.0); HEMATOCRIT 38.5 % (42.0-52.0); HEMOGLOBIN 12.9 G/DL (14.2-18.0); LYMPHOCYTES % (AUTO) 20.8 % (20.0-45.0); MEAN CORPUSCULAR VOLUME 91 FL (80-99); MONOCYTES % (AUTO) 5.1 % (1.0-10.0); NEUTROPHILS % (AUTO) 73.6 % (45.0-75.0); PLATELET COUNT 257 K/UL (150-450); RED BLOOD COUNT 4.25 M/UL (4.70-6.10); RED CELL DISTRIBUTION WIDTH 12.3 % (11.6-14.8); WHITE BLOOD COUNT 13.7 K/UL (4.8-10.8)
[2019-02-15 08:00] VITALS: BP 124/78
--- NOTE | 2019-02-15 08:59 | Cardiology Progress Note ---
Assessment/Plan Status: stable Assessment/Plan Assessment/Plan Assessment/Plan 1. Atrial fibrillation, rapid ventricular response. Echocardiogram LVEF 60% Cardizem increased to 90 TID LVEF 60% Will need to start anticoagulation for elevated CHADs score 4 2. Hypertension. -controlled 3. Recurrent supraventricular tachycardia of sudden onset and termination. Continue Cardizem Follow up EP outpatient for ablation consideration 4. Human immunodeficiency virus. 5. Generalized weakness. 6. Rectal cancer. 7. Cerebrovascular accident. Subjective Cardiovascular: Reports: no symptoms Respiratory: Reports: no symptoms Gastrointestinal/Abdominal: Reports: no symptoms Genitourinary: Reports: no symptoms Subjective Coverage for [place] No acute events, mild N/V, vitals stable Objective Last 24 Hour Vital Signs Date Time Temp Pulse Resp B/P (MAP) Pulse Ox O2 Delivery O2 Flow Rate FiO2 02/15/19 08:00 100 02/15/19 08:00 96.6 98 20 124/78 (93) 97 02/15/19 06:33 93 130/80 02/15/19 04:00 98.1 99 18 120/80 (93) 94 02/15/19 04:00 99 02/15/19 00:00 102 02/15/19 00:00 98.8 102 18 138/83 (101) 98 02/14/19 21:31 115 133/84 02/14/19 21:00 Room Air 02/14/19 20:00 90 02/14/19 20:00 98.4 90 18 135/86 (102) 96 02/14/19 16:00 97.9 93 21 120/68 (85) 94 02/14/19 16:00 94 02/14/19 12:00 93 02/14/19 12:00 98.1 97 20 149/79 (102) 95 02/14/19 09:58 100 General Appearance: no apparent distress, alert EENT: PERRL/EOMI, normal ENT inspection Neck: normal alignment, supple, no JVD Rhythm: NSR Cardiovascular: normal peripheral pulses, normal rate Abdomen: normal bowel sounds, non tender, soft Extremities: normal range of motion, non-tender Neurologic: continuity person II-XII grossly normal, no motor/sensory deficits Intake and Output 02/14/19 02/15/19 19:00 07:00 # Voids 3 4 # Bowel Movements 4 Laboratory Tests Test 02/15/19 05:10 White Blood Count 13.7 K/UL (4.8-10.8) H Red Blood Count 4.25 M/UL (4.70-6.10) L Hemoglobin 12.9 G/DL (14.2-18.0) L Hematocrit 38.5 % (42.0-52.0) L Mean Corpuscular Volume 91 FL (80-99) Mean Corpuscular Hemoglobin 30.4 PG (27.0-31.0) Mean Corpuscular Hemoglobin Concent 33.6 G/DL (32.0-36.0) Red Cell Distribution Width 12.3 % (11.6-14.8) Platelet Count 257 K/UL (150-450) Mean Platelet Volume 7.5 FL (6.5-10.1) Neutrophils (%) (Auto) 73.6 % (45.0-75.0) Lymphocytes (%) (Auto) 20.8 % (20.0-45.0) Monocytes (%) (Auto) 5.1 % (1.0-10.0) Eosinophils (%) (Auto) 0.3 % (0.0-3.0) Basophils (%) (Auto) 0.3 % (0.0-2.0) Sodium Level 140 MMOL/L (136-145) Potassium Level 3.2 MMOL/L (3.5-5.1) L Chloride Level 108 MMOL/L (98-107) H Carbon Dioxide Level 17 MMOL/L (21-32) L Anion Gap 15 mmol/L (5-15) Blood Urea Nitrogen 31 mg/dL (7-18) H Creatinine 1.1 MG/DL (0.55-1.30) Estimat Glomerular Filtration Rate > 60 mL/min (>60) Glucose Level 89 MG/DL (74-106) Calcium Level 8.9 MG/DL (8.5-10.1) Microbiology Date/Time Source Procedure Growth Status 02/13/19 14:06 Sputum Induced Gram Stain - Final Complete 02/13/19 14:06 Sputum Induced Sputum Culture - Final NORMAL UPPER RESPIRATORY LEEANN PRESENT Complete 02/13/19 13:34 Stool Clostridium difficile Toxin Assay - Final Complete Priec Reaves MD Feb 15, 2019 08:59
[2019-02-15] MEDS: Vancomycin oral 125mg/2.5ml ORAL SCH ×5 (09:00→21:32)
[2019-02-15] MEDS: Digoxin 0.125mg tab ORAL SCH ×2 (09:00→09:13)
[2019-02-15] MEDS: Tamsulosin 0.4mg cap ORAL SCH ×3 (09:00→18:00)
[2019-02-15] MEDS: INTELENCE 200 MG ORAL SCH ×3 (09:00→18:00)
[2019-02-15] MEDS: PARoxetine 20mg tab ORAL SCH ×2 (09:00→09:13)
--- NOTE | 2019-02-15 09:40 | NUR ---
NURSE NOTES: Unable to swallow medication. Vomited medication. MD aware.
--- NOTE | 2019-02-15 10:01 | NUR ---
NURSE NOTES: Repositioned, Cleaned changed and made comfortable.
--- NOTE | 2019-02-15 10:35 | NUR ---
SWALLOW/SPEECH THERAPY UPDATED EVAL NOTE: REFERRED FOR SWALLOW EVAL BY DR MENDEZ, SEE FULL REPORT TO FOLLOW. DYSPHAGIA RISK FACTORS FOR THIS 68 Y.O.M.: ACUTE ISSUES: FEVER, WEAKNESS COUPLE OF DAYS. NAUSEATED AND VOMITING. PER CXR Bibasilar opacities likely representing subsegmental atelectasis. CT CHEST/ABDOMINAL SCAN (FOR ABDOMINAL PAIN): L BASILAR DEVELOPING PNA MD REFLUXING ESOPHAGUS WITH DISTAL ESOPHAGEAL WALL THICKENING CORRELATES WITH RECENT ENDOSCOPY IS RECOMMENDED. 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 HAD SWALLOW EVAL AND VIDEOSWALLOW STUDY AT [facility] [place] 11[place]2017 AND HAD MILD-MOD OROPHARYNGEAL DYSPHAGIA AND MILD ESOPHAGEAL DYSPHAGIA AND POSSIBLE CP BAR BUT PLACED ON REG DIET AND THIN LIQUIDS WITH POSTED PRECAUTIONS AND SWALLOW EVAL 11/2018 (REG DIET THIN LIQUIDS GOOD INTAKE). NO POLST NOR AD IN CHART REGARDING TUBE FEEDING PREFERENCES. CURRENTLY ON CLEAR LIQUIDS INTAKE VARIED REFUSES OR 25/50/75%. PER RN AND MEDS WHOLE. PER RN, NO OVERT ASPIRATION WITH THIN LIQUIDS BUT COUGHED AND SPIT OUT WATER AND LARGE PILL EVEN WHEN PILL CUT IN HALF. INITIAL IMPRESSIONS: S/S OF A PERSISTENT AND SIGNIFICANT OROPHARYNGEAL AND LIKELY ESOPHAGEAL DYSPHAGIA WITH INCREASED OVERALL TRANSIT TIMES. ADEQUATE DENTITION MISSING LOWER MOLARS, TONGUE HAS WHITISH COATING, NEED TO R/O THRUSH OTHERWISE GROSSLY FUNCTIONAL LIPS/TONGUE. VOICE CLEAR AND SPONTANEOUS VOLITIONAL COUGH WEAK GIVEN THIN LIQUIDS VIA STRAW SEQUENTIAL SIPS (3 OZ WATER BRICE SWALLOW PROTOCOL, STOPPED AFTER 3 SIPS THEN 6 SIPS WITH FAIR HYOLARYNGEAL EXCURSION AND EXTRA SWALLOW AFTER LAST SIP. COUGHED A MINUTE AFTER LAST SWALLOW ? ASPIRATION. ON ROOM AIR BUT RR 18-20 GOES UP AFTER SWALLOWING SEQUENTIALLY. NO COUGH WHEN DRINKING ONE SIP AT A TIME VIA CUP GIVEN CRUSHED MEDS WITH APPLESAUCE (WHICH HE DISLIKES THEM CRUSHED AND DISLIKES APPLESAUCE) HAD A GROSSLY FUNCTIONAL SWALLOW BUT VOMITED UP ALL OF IT AFTER THE 2ND TSP AMOUNT. DISLIKES NECTAR THICK LIQUIDS, APPLESAUCE, AND REFUSED CRACKER (THOUGHT IT MIGHT BE STALE EVEN THOUGH TOLD IT WAS NOT. HIGH RISK FOR SILENT ASPIRATION DUE TO 2 CVAS IN AND MAY HAVE DEVELOPING PNA. RECOMMENDATIONS: CONSIDER NO PO STATUS AND INITIATE NGT FEEDINGS FOR NOW IS TAKING 0 TO ONLY 25% OF CLEAR LIQUID DIET, VOMITED YESTERDAY, VOMITED TODAY WITH HIS CRUSHED MEDS WITH APPLESAUCE (CAN'T HAVE PUDDING HE IS LACTOSE INTOLERANT) EVEN WHEN ON ZOFRAN, HAS DYSPHAGIA, AND HAS HIGH SILENT ASPIRATION RISK WITH POSSIBLY DEVELOPING PNA. PROBLEMS COMPOUNEDED BY REFLUXING ESOPHAGUS, SEE FUTURE NOTE BY GI NAKITA / RACHEL. CONTINUE WITH ORAL CARE (R/O ORAL THRUSH TAKES HIV/AIDS MEDS) AND IF HE DOES CONTINUE WITH CLEAR LIQUIDS (WHICH HE WANTS), USE STRICT ASPIRATION PRECAUTIONS AND HAVE HIM TAKE ONE SIP AT A TIME (NOT SEQUENTIAL SIPS) (DISLIKES NECTAR THICK LIQUIDS). D/W RD TF FORMULA IF INDICATED. MOD BARIUM SWALLOW STUDY IP OR OP IF DC TO FURTHER ASSESS SWALLOW, DETERMINE SILENT ASPIRATION RISK, AND ATTEMPT TRIAL TX TECHNIQUES. SKILLED DYSPHAGIA MANAGEMENT AND TX [employer] EVAL/TX EDUCATED/TRAINED NEW CHARLEY MACARIO IN POSTED ASP/REFLUX PRECAUTIONS. D/W DR MENDEZ WHO AGREED WITH GI CONSULT AND MOD BARIUM SWALLOW STUDY. Addendum: 02/15/19 at 1038 by DARYL DILL FAN MAIL EDITOR tpn ? IF CAN'T TOLERATE NGT Addendum: 02/15/19 at 1100 by DARYL DILL [employer] MAIL EDITOR REFUSED MBSS FOR TODAY BUT AGREED TO TOMORROW NPO POST MIDNIGHT FOR GI PROCEDURE TOMORROW Addendum: 02/15/19 at 1109 by DARYL DILL FAN MAIL EDITOR DAY 5 POOR TO NO PO INTAKE (LAST MEAL ON Tuesday02/09/19.
[2019-02-15] MEDS: Metoclopramide 10mg/2ml Inj IVP PRN ×2 (10:37→23:05)
--- NOTE | 2019-02-15 10:38 | GI Initial Consult Note ---
History of Present Illness General Date patient seen: Feb 15, 2019 Time patient seen: 10:37 Reason for Hospitalization: Lower Extremity Injury Referring physician: BEBETO DONALDSON Reason for Consultation: GERD Present Illness HPI 68-year-old male with a history of hypertension, hyperlipidemia, HIV (diagnosed 1984), rectal cancer currently undergoing work-up but no active treatment yet at [facility] presents for evaluation of lower extreme any weakness. The patient at baseline uses a wheelchair for ambulation around his home but is able to get out of that wheelchair himself and perform some exercises. This morning, he states he could not rise from his bed and called EMS. There was no fall or trauma. He simply notes lower extremity weakness and weakness in the pelvis out of his baseline. He denies any recent fevers though has felt increased thirst lately. He had urinary retention on his last hospitalization in December of this year but states he has noted no difficulty with urinary retention. Denies any hematuria, dysuria, vomiting, diarrhea, chest pain, shortness of breath, cough. He does note some nasal congestion. GI consulted for reported distal esophageal wall thickening as seen on chest CT. Patient seen, awake alert and oriented x4 no apparent distress. The patient reported multiple episodes of emesis. Denied any hematemesis or coffee- ground. At this time denies any pain. Has complaint of generalized weakness and persistent diarrhea. The patient states he has a history of rectal cancer which was diagnosed approximately 10 years ago. The patient had a recent colonoscopy in September 2018 noted with acute proctitis. Abdominal pelvis CT also showed sigmoid, duodenal and rectal colonic wall thickening suggestive of enterocolitis. Home Meds Active Scripts Finasteride (FINASTERIDE) 5 Mg Tablet, 5 MG ORAL DAILY for 30 Days, TAB Prov:Bebeto Rm MD 12/01/18 Tamsulosin HCl (Flomax) 0.4 Mg Cap.er.24h, 0.4 MG ORAL BID for 30 Days, CAP Prov:Bebeto Rm MD 12/01/18 Paroxetine Hcl* (PAXIL*) 20 Mg Tablet, 40 MG ORAL DAILY for 30 Days, TAB Prov:Bebeto Rm MD 11/27/18 Metronidazole* (FLAGYL*) 500 Mg Tablet, 500 MG ORAL Q8HR for 5 Days, TAB Prov:Bebeto Rm MD 11/27/18 Levothyroxine Sodium* (SYNTHROID*) 25 Mcg Tablet, 25 MCG ORAL DAILY@0630 for 30 Days, TAB Take in the morning on an empty stomach, at least 30 minutes before food. Prov:Bebeto Rm MD 11/27/18 Diltiazem Hcl* (CARDIZEM CD*) 180 Mg Cap.er.24h, 180 MG ORAL DAILY for 30 Days, CAP Do not open, chew or crush capsule; swallow whole Prov:Bebeto Rm MD 11/27/18 Fidaxomicin (DIFICID) 200 Mg Tablet, 200 MG ORAL EVERY 12 HOURS for 10 Days, TAB Prov:Bebeto Rm MD 09/20/18 Cholestyramine (Cholestyramine Packet) 4 Gm Powd.pack, 4 GM ORAL THREE TIMES A DAY for 30 Days, PACK Prov:Bebeto Rm MD 09/20/18 Vancomycin HCl (Vancomycin HCl) 500 Mg Vial, 125 MG ORAL FOUR TIMES A DAY for 10 Days, VIAL Prov:Bebeto Rm MD 09/12/18 Acetaminophen* (TYLENOL EXTRA STRENGTH*) 500 Mg Tablet, 500 MG ORAL Q6H, #20 TAB 0 Refills Prov:Rosalee Franco 07/26/18 Cephalexin* (KEFLEX*) 500 Mg Capsule, 500 MG ORAL EVERY 12 HOURS for 7 Days, # 14 CAP 0 Refills Prov:Rosalee Franco 07/26/18 Cephalexin* (KEFLEX*) 500 Mg Capsule, 500 MG ORAL EVERY 12 HOURS for 5 Days, # 14 CAP 0 Refills Prov:Bebeto Rm MD 03/10/18 Reported Medications Docusate Sodium* (DOCUSATE SODIUM*) 100 Mg Capsule, 100 MG ORAL DAILY, CAP 02/13/19 Oxycodone Hcl/Acetaminophen 5-325* (OXYCODONE-ACETAMINOPHEN 5-325*) 1 Each Tablet, 1 TAB ORAL BID PRN for For Pain, TAB 0 Refills 02/13/19 Calcium Carbonate/Vitamin D3 (OYSCO 500+D TABLET) 1 Each Tablet, 1 EACH PO DAILY , TAB 02/13/19 Unable to Obtain Medications (UNABLE TO OBTAIN MEDS) 1 Ea Ea 11/17/18 Gabapentin* (GABAPENTIN*) 600 Mg Tablet, 600 MG ORAL THREE TIMES A DAY, TAB 08/31/18 Elviteg/Jihan/Emtric/Tenofo Ala (Genvoya Tablet) 1 Each Tablet, 1 EACH PO DAILY, TAB 08/31/18 Oxybutynin Chloride (OXYBUTYNIN CHLORIDE) 5 Mg/5 Ml Syrup, 10 MG PO, ML 08/31/18 Darunavir Ethanolate* (PREZISTA*) 600 Mg Tablet, 800 MG ORAL DAILY, TAB 08/31/18 Baclofen* (BACLOFEN*) 10 Mg Tablet, 10 MG ORAL THREE TIMES A DAY, TAB 08/31/18 Metoprolol Tartrate* (METOPROLOL TARTRATE*) 25 Mg Tablet, 25 MG ORAL EVERY 12 HOURS, TAB 03/06/18 Mirabegron (MYRBETRIQ) 25 Mg Tab.er.24h, 25 MG PO DAILY, TAB 03/06/18 Amoxicillin/Potassium Clav 875-125* (AUGMENTIN 875-125 TABLET*) 1 Each Tablet, 1 TAB ORAL DAILY for 6 Days, TAB 12/01/17 Methocarbamol (Methocarbamol) 500 Mg Tablet, 500 MG PO Q6HR, TAB 11/28/17 Amlodipine Besylate (Norvasc) 10 Mg Tablet, 10 MG ORAL DAILY, TAB 11/28/17 Clotrimazole* (LOTRIMIN*) 15 Gm Cream..g., 1 APPLIC TOPIC TWICE A DAY, GM 11/28/17 Cholecalciferol (Vitamin D3)* (VITAMIN D*) 1,000 Unit Tablet, 2000 UNITS ORAL DAILY, #30 TAB 0 Refills 11/28/17 Simethicone (GAS RELIEF) 125 Mg Tab.chew, 125 MG PO for gas, TAB 11/28/17 Hydrocortisone/Iodoquin/Aloe#2 (Alcortin A Gel) 48 Gm Gel..gram., 48 GM TP QID, GM 11/28/17 Lorazepam* (LORAZEPAM*) 1 Mg Tablet, 1 MG ORAL TWICE A DAY, TAB 11/28/17 Eszopiclone (LUNESTA) 3 Mg Tablet, 3 MG ORAL BEDTIME PRN for Insomnia, TAB 0 Refills 11/28/17 Paroxetine Hcl (PAROXETINE HCL) 40 Mg Tablet, 40 MG ORAL DAILY, #30 TAB 0 Refills 11/28/17 Ondansetron Odt* (ZOFRAN ODT*) 8 Mg Tab.rapdis, 8 MG ORAL Q8HR PRN for Nausea & Vomiting, #30 TAB 11/28/17 Meloxicam* (MELOXICAM*) 15 Mg Tablet, 15 MG PO DAILY, TAB 11/28/17 Mirtazapine* (MIRTAZAPINE*) 15 Mg Tablet, 15 MG ORAL BEDTIME, TAB 11/28/17 Ritonavir* (NORVIR*) 100 Mg Capsule, 100 MG ORAL TWICE A DAY, #60 CAP 11/28/17 Raltegravir Potassium (ISENTRESS) 100 Mg Tab.chew, 400 MG ORAL TWICE A DAY, TAB 11/28/17 Losartan Potassium* (LOSARTAN POTASSIUM*) 50 Mg Tablet, 50 MG ORAL DAILY, TAB 11/28/17 Finasteride* (PROSCAR*) 5 Mg Tablet, 5 MG ORAL DAILY, #30 TAB 0 Refills 11/28/17 Tamsulosin Hcl (TAMSULOSIN HCL*) 0.4 Mg Cap.er.24h, 0.4 MG ORAL BEDTIME, CAP 11/28/17 Valacyclovir Hcl* (VALTREX*) 500 Mg Tablet, 1000 MG ORAL DAILY, TAB 11/28/17 Alendronate Sodium* (FOSAMAX*) 70 Mg Tablet, 70 MG ORAL ONCE A WEEK, TAB 11/28/17 Aspirin* (ASPIR 81*) 81 Mg Tablet.dr, 81 MG ORAL DAILY, TAB 11/28/17 Omeprazole (OMEPRAZOLE) 20 Mg Capsule.dr, 20 MG ORAL DAILY, CAP 11/28/17 Dutasteride (AVODART) 0.5 Mg Capsule, 0.5 MG ORAL BEDTIME, CAP 10/27/17 Entecavir* (BARACLUDE*) 0.5 Mg Tablet, 1 MG ORAL DAILY, TAB 10/27/17 Etravirine* (INTELENCE*) 100 Mg Tablet, 200 MG ORAL EVERY 12 HOURS, #60 TAB 0 Refills 10/27/17 Discontinued Reported Medications Calcium Carbonate (OYSCO-500) 500 Mg Tablet, 500 MG PO DAILY, TAB 11/28/17 Med list reviewed/reconciled: Yes Allergies: Coded Allergies: CODEINE (Unverified Allergy, Unknown, 11/28/17) EMTRICITABINE (Verified Allergy, Unknown, anxiousness, 08/31/18) SULFAMETHOXAZOLE (Unverified Allergy, Unknown, 10/27/17) TENOFOVIR (Verified Allergy, Unknown, anxiousness, 08/31/18) TRIMETHOPRIM (Unverified Allergy, Unknown, 10/27/17) Patient History PMH Narrative PMH: Rectal cancer, hypertension, hyperlipidemia, prior stroke with residual right-sided weakness, HIV PSH: Denies Allergies: Codeine, sulfa medication Social Hx: Former smoker, quit drinking in the 1980s, denies drug use Social History: Denies: smoking, alcohol use, drug use, other Review of Systems All Other Systems: negative except mentioned in HPI Physical Exam Vital Signs Date Time Temp Pulse Resp B/P (MAP) Pulse Ox O2 Delivery O2 Flow Rate FiO2 02/11/19 08:00 98 02/11/19 08:00 98.8 24 164/85 (111) 93 02/11/19 09:00 Nasal Cannula 2.0 Sp02 EP Interpretation: reviewed, normal Labs Laboratory Tests Test 02/15/19 05:10 White Blood Count 13.7 K/UL (4.8-10.8) H Red Blood Count 4.25 M/UL (4.70-6.10) L Hemoglobin 12.9 G/DL (14.2-18.0) L Hematocrit 38.5 % (42.0-52.0) L Mean Corpuscular Volume 91 FL (80-99) Mean Corpuscular Hemoglobin 30.4 PG (27.0-31.0) Mean Corpuscular Hemoglobin Concent 33.6 G/DL (32.0-36.0) Red Cell Distribution Width 12.3 % (11.6-14.8) Platelet Count 257 K/UL (150-450) Mean Platelet Volume 7.5 FL (6.5-10.1) Neutrophils (%) (Auto) 73.6 % (45.0-75.0) Lymphocytes (%) (Auto) 20.8 % (20.0-45.0) Monocytes (%) (Auto) 5.1 % (1.0-10.0) Eosinophils (%) (Auto) 0.3 % (0.0-3.0) Basophils (%) (Auto) 0.3 % (0.0-2.0) Sodium Level 140 MMOL/L (136-145) Potassium Level 3.2 MMOL/L (3.5-5.1) L Chloride Level 108 MMOL/L (98-107) H Carbon Dioxide Level 17 MMOL/L (21-32) L Anion Gap 15 mmol/L (5-15) Blood Urea Nitrogen 31 mg/dL (7-18) H Creatinine 1.1 MG/DL (0.55-1.30) Estimat Glomerular Filtration Rate > 60 mL/min (>60) Glucose Level 89 MG/DL (74-106) Calcium Level 8.9 MG/DL (8.5-10.1) General Appearance: well appearing, no apparent distress, alert Head: normocephalic EENT: PERRL/EOMI, normal ENT inspection Neck: supple Respiratory: normal breath sounds, no respiratory distress Cardiovascular: normal rate Gastrointestinal: normal inspection, non tender, soft, normal bowel sounds, non -distended Rectal: deferred Genitourinary: deferred Musculoskeletal: other - Limited range of motion Neurologic: normal inspection, alert, oriented x3, responsive Psychiatric: normal inspection, judgement/insight normal, memory normal Skin: normal inspection, normal color, no rash, warm/dry, palpation normal, well hydrated Lymphatic: normal inspection, no adenopathy Current Medications Current Medications Medications (Trade) Dose Ordered Sig/Roman Route PRN Reason Start Time Stop Time Status Last Admin Dose Admin Acetaminophen (Tylenol) 650 mg Q4H PRN ORAL fever 02/10/19 14:00 03/12/19 13:59 02/10/19 20:39 Barium Sulfate (Varibar Honey) 250 ml NOW PRN Radiology Procedure 02/14/19 13:30 02/17/19 13:24 Barium Sulfate (Varibar Luc[place]) 230 ml NOW PRN Radiology Procedure 02/14/19 13:30 02/17/19 13:24 Barium Sulfate (Varibar Pudding) 230 ml NOW PRN Radiology Procedure 02/14/19 13:30 02/17/19 13:24 Dextrose (Dextrose 50%) 25 ml Q30M PRN IV Hypoglycemia 02/10/19 14:15 03/12/19 14:05 Dextrose (Dextrose 50%) 50 ml Q30M PRN IV hypoglycemia 02/10/19 14:15 03/12/19 14:14 Digoxin (Lanoxin) 0.125 mg DAILY ORAL 02/14/19 09:00 03/16/19 08:59 02/15/19 09:13 Diltiazem HCl (Cardizem) 90 mg EVERY 8 HOURS ORAL 02/14/19 14:00 03/14/19 13:59 02/15/19 06:33 Famotidine (Pepcid) 10 mg BID PRN ORAL heartburn 02/11/19 22:30 03/13/19 22:29 02/14/19 19:56 Gabapentin (Neurontin) 600 mg THREE TIMES A DAY ORAL 02/10/19 18:00 03/12/19 17:59 02/15/19 09:12 Levothyroxine Sodium (Synthroid) 25 mcg DAILY@0630 ORAL 02/11/19 06:30 03/13/19 06:29 02/15/19 06:33 Lorazepam (Ativan 2mg/ml 1ml) 0.5 mg Q4H PRN IV For Anxiety 02/10/19 14:00 02/17/19 13:59 02/14/19 14:12 Meningococcal Polysaccharide Vacc (Menomune-A/C/Y/ W-135) 0.5 ml ONCE ONCE IM 02/13/19 18:00 02/13/19 18:01 UNV Metoclopramide HCl (Reglan) 5 mg Q6H PRN IVP Nausea & Vomiting 02/12/19 07:30 03/14/19 07:29 02/14/19 20:54 Mirtazapine (Remeron) 15 mg BEDTIME ORAL 02/10/19 21:00 03/12/19 20:59 02/14/19 20:54 Morphine Sulfate (Morphine Sulfate) 1 mg Q4H PRN IVP For Pain 02/10/19 14:00 02/17/19 13:59 02/12/19 14:39 Paroxetine HCl (Paxil) 40 mg DAILY ORAL 02/11/19 09:00 03/13/19 08:59 02/15/19 09:13 Patient Own Medication (Patient's Own Med) 1 ea BID ORAL 02/13/19 20:00 03/15/19 19:59 02/15/19 09:14 Patient Own Medication (Patient's Own Med) 1 ea DAILY ORAL 02/13/19 20:00 03/15/19 19:59 02/15/19 09:15 Patient Own Medication (Patient's Own Med) 1 ea DAILY ORAL 02/13/19 20:00 03/15/19 19:59 02/15/19 09:15 Polyethylene Glycol (Miralax) 17 gm HSPRN PRN ORAL Constipation 02/10/19 14:00 03/12/19 13:59 Potassium Chloride (K-Dur) 40 meq ONCE ORAL 02/15/19 10:21 02/15/19 11:30 Tamsulosin HCl (Flomax) 0.4 mg BID ORAL 02/10/19 18:00 03/12/19 17:59 02/15/19 09:13 Vancomycin HCl (Firvanq) 125 mg FOUR TIMES A DAY ORAL 02/13/19 13:00 02/20/19 18:30 02/15/19 09:13 Zolpidem Tartrate (Ambien) 5 mg HSPRN PRN ORAL Insomnia 02/10/19 14:00 02/17/19 13:59 GI: Plan Problems: (1) GERD (gastroesophageal reflux disease) (2) Dehydration (3) Electrolyte imbalance (4) Anemia (5) Diarrhea Plan Status post colonoscopy in September 2018 noted with acute proctitis Persistent diarrhea Abdominal pelvis CT reviewed shows distal esophageal wall thickening, enterocolitis. C. difficile positive Plan for endoscopy tomorrow. Maintain clear liquid diet, n.p.o. at midnight bowel regimen, hold stool softeners and laxatives abx per ID monitor H&H fu ID recs Electrolyte correction Follow labs PPI We will follow with additional recommendations postprocedure Discussed with Dr. Germain. Thank you for this patient referral, we will follow. The patient was seen and examined at bedside and all new and available data was reviewed in the patients chart. I agree with the above findings, impression and plan. (Patient seen earlier today. Signature stamp does not reflect patient encounter time.). - MD Keena Melendez,[facility]ul CORN HUSKER Feb 15, 2019 10:38
--- NOTE | 2019-02-15 11:00 | Infectious Diseases Prog Note ---
Assessment/Plan Assessment/Plan Assessment: Sepsis--Cdiff colitis, 1st recurrence -CT abd/p: Sigmoid and rectal colonic wall thickening with some mucosal edema along with scattered small bowel loops with bowel wall thickening suggestive of enterocolitis. Duodenal wall thickening with associated fat stranding, which may share etiology with enterocolitis; however, correlation with lipase is recommended to exclude groove pancreatitis. Evidence of infectious/inflammatory small airways disease; patchy left basilar airspace consolidation raises possibility of developing pneumonia. Refluxing esophagus with distal esophageal wall thickening; correlation with recent endoscopy is recommended. -CXR: Bibasilar opacities likely representing subsegmental atelectasis. 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) CVA 2004 HTN Plan: -Cont oral vancomycin #3/10-14 -02/14 SP IV Vancomycin, Zosyn #4 -12/01 Sp Cefepime #14, Flagyl #14 -11/22 SP IV Vancomycin #6 -11/17 SP Zosyn x1 -09/23 SP Fidaxomicin #10 -09/13/18 SP PO Vancomycin #8 -f/u cx -Monitor CBC/CMP, temperatures -f/u sp cx, stool cx Thank you for this consultation. Will continue to follow along with you. Discussed with RN Subjective Allergies: Coded Allergies: CODEINE (Unverified Allergy, Unknown, 11/28/17) EMTRICITABINE (Verified Allergy, Unknown, anxiousness, 08/31/18) SULFAMETHOXAZOLE (Unverified Allergy, Unknown, 10/27/17) TENOFOVIR (Verified Allergy, Unknown, anxiousness, 08/31/18) TRIMETHOPRIM (Unverified Allergy, Unknown, 10/27/17) Subjective afebrile wbc overall iimproved Bcx NTD Objective Vital Signs Last 24 Hour Vital Signs Date Time Temp Pulse Resp B/P (MAP) Pulse Ox O2 Delivery O2 Flow Rate FiO2 02/15/19 09:13 100 02/15/19 08:00 100 02/15/19 08:00 96.6 98 20 124/78 (93) 97 02/15/19 06:33 93 130/80 02/15/19 04:00 98.1 99 18 120/80 (93) 94 02/15/19 04:00 99 02/15/19 00:00 102 02/15/19 00:00 98.8 102 18 138/83 (101) 98 02/14/19 21:31 115 133/84 02/14/19 21:00 Room Air 02/14/19 20:00 90 02/14/19 20:00 98.4 90 18 135/86 (102) 96 02/14/19 16:00 97.9 93 21 120/68 (85) 94 02/14/19 16:00 94 02/14/19 12:00 93 02/14/19 12:00 98.1 97 20 149/79 (102) 95 Height (Feet): 5 Height (Inches): 7.00 Weight (Pounds): 144 Objective GENERAL: The patient is a thin-appearing white male, in no apparent distress. HEENT: Eyes, pupils are equal and responsive to light and accommodation. Extraocular movements are intact. NECK: Supple without lymphadenopathy. CHEST: Lungs are clear to auscultation bilaterally without wheezes or rales. CARDIOVASCULAR: Regular rhythm and rate. S1 and S2 are normal without murmurs, rubs, or gallops. ABDOMEN: Soft, nontender, and nondistended. Positive bowel sounds. No evidence of hepatosplenomegaly. Currently, no rebound or guarding noted. EXTREMITIES: Negative for clubbing, cyanosis, or edema. NEUROLOGIC: Cranial nerves II through XII are grossly intact without focal deficits. Microbiology Date/Time Source Procedure Growth Status 02/13/19 14:06 Sputum Induced Gram Stain - Final Complete 02/13/19 14:06 Sputum Induced Sputum Culture - Final NORMAL UPPER RESPIRATORY THOMAS PRESENT Complete 02/13/19 13:34 Stool Clostridium difficile Toxin Assay - Final Complete Laboratory Tests Test 02/15/19 05:10 White Blood Count 13.7 K/UL (4.8-10.8) H Red Blood Count 4.25 M/UL (4.70-6.10) L Hemoglobin 12.9 G/DL (14.2-18.0) L Hematocrit 38.5 % (42.0-52.0) L Mean Corpuscular Volume 91 FL (80-99) Mean Corpuscular Hemoglobin 30.4 PG (27.0-31.0) Mean Corpuscular Hemoglobin Concent 33.6 G/DL (32.0-36.0) Red Cell Distribution Width 12.3 % (11.6-14.8) Platelet Count 257 K/UL (150-450) Mean Platelet Volume 7.5 FL (6.5-10.1) Neutrophils (%) (Auto) 73.6 % (45.0-75.0) Lymphocytes (%) (Auto) 20.8 % (20.0-45.0) Monocytes (%) (Auto) 5.1 % (1.0-10.0) Eosinophils (%) (Auto) 0.3 % (0.0-3.0) Basophils (%) (Auto) 0.3 % (0.0-2.0) Sodium Level 140 MMOL/L (136-145) Potassium Level 3.2 MMOL/L (3.5-5.1) L Chloride Level 108 MMOL/L (98-107) H Carbon Dioxide Level 17 MMOL/L (21-32) L Anion Gap 15 mmol/L (5-15) Blood Urea Nitrogen 31 mg/dL (7-18) H Creatinine 1.1 MG/DL (0.55-1.30) Estimat Glomerular Filtration Rate > 60 mL/min (>60) Glucose Level 89 MG/DL (74-106) Calcium Level 8.9 MG/DL (8.5-10.1) Current Medications Medications (Trade) Dose Ordered Sig/Roman Route PRN Reason Start Time Stop Time Status Last Admin Dose Admin Acetaminophen (Tylenol) 650 mg Q4H PRN ORAL fever 02/10/19 14:00 03/12/19 13:59 02/10/19 20:39 Barium Sulfate (Varibar Honey) 250 ml NOW PRN Radiology Procedure 02/14/19 13:30 02/17/19 13:24 Barium Sulfate (Varibar [place]) 230 ml NOW PRN Radiology Procedure 02/14/19 13:30 02/17/19 13:24 Barium Sulfate (Varibar Pudding) 230 ml NOW PRN Radiology Procedure 02/14/19 13:30 02/17/19 13:24 Dextrose (Dextrose 50%) 25 ml Q30M PRN IV Hypoglycemia 02/10/19 14:15 03/12/19 14:05 Dextrose (Dextrose 50%) 50 ml Q30M PRN IV hypoglycemia 02/10/19 14:15 03/12/19 14:14 Digoxin (Lanoxin) 0.125 mg DAILY ORAL 02/14/19 09:00 03/16/19 08:59 02/15/19 09:13 Diltiazem HCl (Cardizem) 90 mg EVERY 8 HOURS ORAL 02/14/19 14:00 03/14/19 13:59 02/15/19 06:33 Famotidine (Pepcid) 20 mg BID ORAL 02/15/19 18:00 03/13/19 22:29 Gabapentin (Neurontin) 600 mg THREE TIMES A DAY ORAL 02/10/19 18:00 03/12/19 17:59 02/15/19 09:12 Levothyroxine Sodium (Synthroid) 25 mcg DAILY@0630 ORAL 02/11/19 06:30 03/13/19 06:29 02/15/19 06:33 Lorazepam (Ativan 2mg/ml 1ml) 0.5 mg Q4H PRN IV For Anxiety 02/10/19 14:00 02/17/19 13:59 02/14/19 14:12 Meningococcal Polysaccharide Vacc (Menomune-A/C/Y/ W-135) 0.5 ml ONCE ONCE IM 02/13/19 18:00 02/13/19 18:01 UNV Metoclopramide HCl (Reglan) 5 mg Q6H PRN IVP Nausea & Vomiting 02/12/19 07:30 03/14/19 07:29 02/15/19 10:37 Mirtazapine (Remeron) 15 mg BEDTIME ORAL 02/10/19 21:00 03/12/19 20:59 02/14/19 20:54 Morphine Sulfate (Morphine Sulfate) 1 mg Q4H PRN IVP For Pain 02/10/19 14:00 02/17/19 13:59 02/12/19 14:39 Paroxetine HCl (Paxil) 40 mg DAILY ORAL 02/11/19 09:00 03/13/19 08:59 02/15/19 09:13 Patient Own Medication (Patient's Own Med) 1 ea BID ORAL 02/13/19 20:00 03/15/19 19:59 02/15/19 09:14 Patient Own Medication (Patient's Own Med) 1 ea DAILY ORAL 02/13/19 20:00 03/15/19 19:59 02/15/19 09:15 Patient Own Medication (Patient's Own Med) 1 ea DAILY ORAL 02/13/19 20:00 03/15/19 19:59 02/15/19 09:15 Polyethylene Glycol (Miralax) 17 gm HSPRN PRN ORAL Constipation 02/10/19 14:00 03/12/19 13:59 Potassium Chloride (K-Dur) 40 meq ONCE ORAL 02/15/19 10:21 02/15/19 11:30 Tamsulosin HCl (Flomax) 0.4 mg BID ORAL 02/10/19 18:00 03/12/19 17:59 02/15/19 09:13 Vancomycin HCl (Firvanq) 125 mg FOUR TIMES A DAY ORAL 02/13/19 13:00 02/20/19 18:30 02/15/19 09:13 Zolpidem Tartrate (Ambien) 5 mg HSPRN PRN ORAL Insomnia 02/10/19 14:00 02/17/19 13:59 Miranda Cordero M.D. Feb 15, 2019 11:00
--- NOTE | 2019-02-15 11:19 | Pulmonology Progress Note ---
Assessment/Plan Problems: (1) Sepsis (2) Febrile illness, acute (3) Atrial fibrillation (4) History of rectal cancer (5) BPH (benign prostatic hyperplasia) (6) Degenerative disc disease (7) Severe protein-calorie malnutrition (8) HIV (human immunodeficiency virus infection) Assessment/Plan feeling better f/u cultures ADD vanco po for C. Diff continue abx check electrolytes watch the heart rate GI to see for nausea and vomiting Subjective ROS Limited/Unobtainable: No Constitutional: Reports: no symptoms HEENT: Repors: no symptoms Allergies: Coded Allergies: CODEINE (Unverified Allergy, Unknown, 11/28/17) EMTRICITABINE (Verified Allergy, Unknown, anxiousness, 08/31/18) SULFAMETHOXAZOLE (Unverified Allergy, Unknown, 10/27/17) TENOFOVIR (Verified Allergy, Unknown, anxiousness, 08/31/18) TRIMETHOPRIM (Unverified Allergy, Unknown, 10/27/17) Objective Last 24 Hour Vital Signs Date Time Temp Pulse Resp B/P (MAP) Pulse Ox O2 Delivery O2 Flow Rate FiO2 02/15/19 08:00 100 02/15/19 08:00 96.6 98 20 124/78 (93) 97 02/15/19 06:33 93 130/80 02/15/19 04:00 98.1 99 18 120/80 (93) 94 02/15/19 04:00 99 02/15/19 00:00 102 02/15/19 00:00 98.8 102 18 138/83 (101) 98 02/14/19 21:31 115 133/84 02/14/19 21:00 Room Air 02/14/19 20:00 90 02/14/19 20:00 98.4 90 18 135/86 (102) 96 02/14/19 16:00 97.9 93 21 120/68 (85) 94 02/14/19 16:00 94 02/14/19 12:00 93 02/14/19 12:00 98.1 97 20 149/79 (102) 95 Intake and Output 02/14/19 02/15/19 19:00 07:00 # Voids 3 4 # Bowel Movements 4 General Appearance: WD/WN HEENT: normocephalic, atraumatic Respiratory/Chest: chest wall non-tender, normal breath sounds Cardiovascular: normal peripheral pulses, normal rate Abdomen: normal bowel sounds, soft, non tender, no organomegaly Genitourinary: normal external genitalia Skin: no rash 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5, Neutrophils (%) (Auto) 73.6, Lymphocytes (% ) (Auto) 20.8, Monocytes (%) (Auto) 5.1, Eosinophils (%) (Auto) 0.3, Basophils ( %) (Auto) 0.3, Sodium Level 140, Potassium Level 3.2L, Chloride Level 108H, Carbon Dioxide Level 17L, Anion Gap 15, Blood Urea Nitrogen 31H, Creatinine 1.1 , Estimat Glomerular Filtration Rate > 60, Glucose Level 89, Calcium Level 8.9 Current Medications Medications (Trade) Dose Ordered Sig/Roman Route PRN Reason Start Time Stop Time Status Last Admin Dose Admin Acetaminophen (Tylenol) 650 mg Q4H PRN ORAL fever 02/10/19 14:00 03/12/19 13:59 02/10/19 20:39 Barium Sulfate (Varibar Honey) 250 ml NOW PRN Radiology Procedure 02/14/19 13:30 02/17/19 13:24 Barium Sulfate (Varibar [place]) 230 ml NOW PRN Radiology Procedure 02/14/19 13:30 02/17/19 13:24 Barium Sulfate (Varibar Pudding) 230 ml NOW PRN Radiology Procedure 02/14/19 13:30 02/17/19 13:24 Dextrose (Dextrose 50%) 25 ml Q30M PRN IV Hypoglycemia 02/10/19 14:15 03/12/19 14:05 Dextrose (Dextrose 50%) 50 ml Q30M PRN IV hypoglycemia 02/10/19 14:15 03/12/19 14:14 Digoxin (Lanoxin) 0.125 mg DAILY ORAL 02/14/19 09:00 03/16/19 08:59 02/14/19 09:58 Diltiazem HCl (Cardizem) 90 mg EVERY 8 HOURS ORAL 02/14/19 14:00 03/14/19 13:59 02/15/19 06:33 Famotidine (Pepcid) 20 mg BID ORAL 02/15/19 18:00 03/13/19 22:29 Gabapentin (Neurontin) 600 mg THREE TIMES A DAY ORAL 02/10/19 18:00 03/12/19 17:59 02/14/19 09:58 Levothyroxine Sodium (Synthroid) 25 mcg DAILY@0630 ORAL 02/11/19 06:30 03/13/19 06:29 02/15/19 06:33 Lorazepam (Ativan 2mg/ml 1ml) 0.5 mg Q4H PRN IV For Anxiety 02/10/19 14:00 02/17/19 13:59 02/14/19 14:12 Meningococcal Polysaccharide Vacc (Menomune-A/C/Y/ W-135) 0.5 ml ONCE ONCE IM 02/13/19 18:00 02/13/19 18:01 UNV Metoclopramide HCl (Reglan) 5 mg Q6H PRN IVP Nausea & Vomiting 02/12/19 07:30 03/14/19 07:29 02/15/19 10:37 Mirtazapine (Remeron) 15 mg BEDTIME ORAL 02/10/19 21:00 03/12/19 20:59 02/14/19 20:54 Morphine Sulfate (Morphine Sulfate) 1 mg Q4H PRN IVP For Pain 02/10/19 14:00 02/17/19 13:59 02/12/19 14:39 Paroxetine HCl (Paxil) 40 mg DAILY ORAL 02/11/19 09:00 03/13/19 08:59 02/14/19 09:58 Patient Own Medication (Patient's Own Med) 1 ea BID ORAL 02/13/19 20:00 03/15/19 19:59 02/14/19 10:50 Patient Own Medication (Patient's Own Med) 1 ea DAILY ORAL 02/13/19 20:00 03/15/19 19:59 02/14/19 09:00 Patient Own Medication (Patient's Own Med) 1 ea DAILY ORAL 02/13/19 20:00 03/15/19 19:59 02/14/19 10:50 Polyethylene Glycol (Miralax) 17 gm HSPRN PRN ORAL Constipation 02/10/19 14:00 03/12/19 13:59 Potassium Chloride (K-Dur) 40 meq ONCE ORAL 02/15/19 10:21 02/15/19 11:30 Tamsulosin HCl (Flomax) 0.4 mg BID ORAL 02/10/19 18:00 03/12/19 17:59 02/14/19 09:58 Vancomycin HCl (Firvanq) 125 mg FOUR TIMES A DAY ORAL 02/13/19 13:00 02/20/19 18:30 02/14/19 20:54 Zolpidem Tartrate (Ambien) 5 mg HSPRN PRN ORAL Insomnia 02/10/19 14:00 02/17/19 13:59 Oliverio Rm MD Feb 15, 2019 11:19
[2019-02-15 12:00] VITALS: BP_SYST 107; BP_SYST 140; BP_DIAS 69; BP_DIAS 75
--- NOTE | 2019-02-15 12:01 | NUR ---
NURSE NOTES: Pt. RAQUEL sharif. informed.
--- NOTE | 2019-02-15 14:08 | NUR ---
NURSE NOTES:WOUND CARE NOTES: Pt presented on admission with Moisture Associated Skin Damage secondary to Pt frequently having loose BM's. Roxy-rectal area and clefts of buttocks grossly erythematous with scattered satellite lesions. Perianal area cleansed and pat dried. Fecal Final Inspector Truck Trailer Pouch applied to contain incontinence. Non-blanching erythema with fluctuance noted to R and L heels. Pt denied tenderness when each heel was minimally palpated. Pt educated on wound prevention. Pt has contractures both lower ext but demonstrated ability to reposition self in bed . Pt encouraged to frequently reposition at least every 1-2 hours to relieve pressure. Pt also instructed to maintain heels off-loaded with pillow. Tx.Plan:Apply Fecal Final Inspector Truck Trailer as needed . Apply moisture Barrier to scrotum and areas around Fecal glass production machine operator pouch. Apply Cavilon Skin Barrier to both heels. Cover each heel with Optifoam drsg. Change every 7 days and prn. Reposition at least every 2hours or as tolerated. Off-load heels with pillow.
--- NOTE | 2019-02-15 14:36 | NUR ---
*-* INSURANCE *-* ALL CLINICALS AND REVIEWS HAVE BE[facility] [id number] F: [phone] P: [phone]
--- NOTE | 2019-02-15 14:52 | NUR ---
RD ASSESSMENT & RECOMMENDATIONS SEE CARE ACTIVITY FOR COMPLETE ASSESSMENT DAILY ESTIMATED NEEDS: Needs based on HIV, CA, possible recent wt loss/64kg 25-35 kcals/kg 0672-0756 total kcals 1-1.5 g protein/kg 64-96 g total protein 25-30 mL/kg 9194-7796 total fluid mLs NUTRITION DIAGNOSIS: * Increased kcal/pro needs R/T catabolic dx, possible wt loss as evidenced by HIV+, h/o rectal CA, w/ possible wt loss of 11#/7.3% wt loss in 3 months, pt at risk for further wt loss. * Altered GI function R/T clinical condition, stool C-diff positive as evidenced c/o N/V/D, on clear liquid diet at this time. CURRENT DIET:CLEAR LIQUID DIET PO DIET RECOMMENDATIONS: Maintain clear liquid diet w/ continued N/V. ADDITIONAL RECOMMENDATIONS: * Calibrated bedscale wt for accurate CBW weekly wt monitoring given possible recent wt loss * Check lytes daily felipe with n/v/d, replete as needed (low K, mag) * Add probiotics- diarrhea, stool C-diff + * Ensure CLEAR TID w/ meals while on CLD * [id number]-[id number] Zofran to help alleviate N/V, to improved PO tolerance * Monitor PO intake and tolerance closely
--- NOTE | 2019-02-15 15:00 | NUR ---
VIDEOTAPE EDITORCOMPETITIVE INTELLIGENCE MANAGER SI: C-DIFF, ENTEROCOLITIS T. 97.1 HR 104 RR 18 B/P 107/67 RA 02 SAT 98% WBC 13.7 RBC 4.25 HGB 12.9 HCT 38.5 K 3.2 Cl 108 BUN 31 IS: VANCOMYCIN ORAL FLOMAX ORAL DIGOXIN ORAL GABAPENTIN ORAL PAROXETINE ORAL K-DUR ORAL DILTIAZEM ORAL PEPCID ORAL MIRTAZAPINE ORAL SYNTHROID ORAL TELEMETRY STATUS
[2019-02-15 16:00] VITALS: BP 129/79
--- NOTE | 2019-02-15 16:00 | NUR ---
NURSE NOTES: Applied fecal pouch to prevent skin breakdown.
[2019-02-15] MEDS ORDERED: Sodium Chloride for KCL Premix X 4hrs IV SCH (16:30)
--- NOTE | 2019-02-15 18:00 | NUR ---
NURSE NOTES: Repositioned and made comfortable. No N/V at this time. However, refused to take medications.
[2019-02-15] MEDS ORDERED: MIRTAZAPINE7.5 MG ORAL (18:22)
[2019-02-15] MEDS ORDERED: ONDANSETRON HCL8 M1 PO (18:22)
[2019-02-15] MEDS ORDERED: OXYBUTYNIN CHLO10 MG PO (18:38)
[2019-02-15] MEDS ORDERED: ENDOCET 10-3251 EACH ORAL (18:49)
[2019-02-15] MEDS ORDERED: NIZORAL 2% C1 APPLIC TOPIC (18:49)
[2019-02-15] MEDS ORDERED: LYRICA75 M1 ORAL (18:49)
[2019-02-15] MEDS ORDERED: [UNRECOGNIZED DRUG - OTHER] TOPIC (18:49)
--- NOTE | 2019-02-15 19:30 | NUR ---
HAND-OFF: Report given to CHARLEY Gómez. Patient VS stable. Endorsed plan of care.
--- NOTE | 2019-02-15 19:31 | NUR ---
NURSE NOTES: Receivedf pt from Jaqueline Christianson. Pt is awake and resting in bed. IV site intact and patent. Bed locked, call light within reach. Will continue with plan of care.
[2019-02-15 20:00] VITALS: BP 145/81
--- NOTE | 2019-02-15 22:49 | Internal Med Progress Note ---
Subjective Physician Name Carlos Barragan Attending Physician Carlos Barragan MD Current Medications Medications (Trade) Dose Ordered Sig/Roman Route PRN Reason Start Time Stop Time Status Last Admin Dose Admin Acetaminophen (Tylenol) 650 mg Q4H PRN ORAL fever 02/10/19 14:00 03/12/19 13:59 02/10/19 20:39 Barium Sulfate (Varibar Honey) 250 ml NOW PRN Radiology Procedure 02/14/19 13:30 02/17/19 13:24 Barium Sulfate (Varibar [place]) 230 ml NOW PRN Radiology Procedure 02/14/19 13:30 02/17/19 13:24 Barium Sulfate (Varibar Pudding) 230 ml NOW PRN Radiology Procedure 02/14/19 13:30 02/17/19 13:24 Dextrose (Dextrose 50%) 25 ml Q30M PRN IV Hypoglycemia 02/10/19 14:15 03/12/19 14:05 Dextrose (Dextrose 50%) 50 ml Q30M PRN IV hypoglycemia 02/10/19 14:15 03/12/19 14:14 Dextrose/ Electrolytes 1,000 ml @ 75 mls/hr [id number] IV 02/15/19 21:00 03/17/19 20:59 Digoxin (Lanoxin) 0.125 mg DAILY ORAL 02/14/19 09:00 03/16/19 08:59 02/14/19 09:58 Diltiazem HCl (Cardizem) 90 mg EVERY 8 HOURS ORAL 02/14/19 14:00 03/14/19 13:59 02/15/19 21:31 Famotidine (Pepcid) 20 mg BID ORAL 02/15/19 18:00 03/13/19 22:29 Gabapentin (Neurontin) 600 mg THREE TIMES A DAY ORAL 02/10/19 18:00 03/12/19 17:59 02/14/19 09:58 Levothyroxine Sodium (Synthroid) 25 mcg DAILY@0630 ORAL 02/11/19 06:30 03/13/19 06:29 02/15/19 06:33 Lorazepam (Ativan 2mg/ml 1ml) 0.5 mg Q4H PRN IV For Anxiety 02/10/19 14:00 02/17/19 13:59 02/14/19 14:12 Meningococcal Polysaccharide Vacc (Menomune-A/C/Y/ W-135) 0.5 ml ONCE ONCE IM 02/13/19 18:00 02/13/19 18:01 UNV Metoclopramide HCl (Reglan) 5 mg Q6H PRN IVP Nausea & Vomiting 02/12/19 07:30 03/14/19 07:29 02/15/19 10:37 Mirtazapine (Remeron) 15 mg BEDTIME ORAL 02/10/19 21:00 03/12/19 20:59 02/15/19 21:31 Morphine Sulfate (Morphine Sulfate) 1 mg Q4H PRN IVP For Pain 02/10/19 14:00 02/17/19 13:59 02/12/19 14:39 Paroxetine HCl (Paxil) 40 mg DAILY ORAL 02/11/19 09:00 03/13/19 08:59 02/14/19 09:58 Patient Own Medication (Patient's Own Med) 1 ea BID ORAL 02/13/19 20:00 03/15/19 19:59 02/14/19 10:50 Patient Own Medication (Patient's Own Med) 1 ea DAILY ORAL 02/13/19 20:00 03/15/19 19:59 02/14/19 09:00 Patient Own Medication (Patient's Own Med) 1 ea DAILY ORAL 02/13/19 20:00 03/15/19 19:59 02/14/19 10:50 Polyethylene Glycol (Miralax) 17 gm HSPRN PRN ORAL Constipation 02/10/19 14:00 03/12/19 13:59 Tamsulosin HCl (Flomax) 0.4 mg BID ORAL 02/10/19 18:00 03/12/19 17:59 02/14/19 09:58 Vancomycin HCl (Firvanq) 125 mg FOUR TIMES A DAY ORAL 02/13/19 13:00 02/20/19 18:30 02/15/19 21:32 Zolpidem Tartrate (Ambien) 5 mg HSPRN PRN ORAL Insomnia 02/10/19 14:00 02/17/19 13:59 Allergies: Coded Allergies: CODEINE (Unverified Allergy, Unknown, 11/28/17) EMTRICITABINE (Verified Allergy, Unknown, anxiousness, 08/31/18) SULFAMETHOXAZOLE (Unverified Allergy, Unknown, 10/27/17) TENOFOVIR (Verified Allergy, Unknown, anxiousness, 08/31/18) TRIMETHOPRIM (Unverified Allergy, Unknown, 10/27/17) Subjective Awake, alert, responsive, complains about nausea and vomiting. Looking very weak and cachectic, complaining about watery diarrhea, potassium: 3.2. Objective Last Vital Signs Date Time Temp Pulse Resp B/P (MAP) Pulse Ox O2 Delivery O2 Flow Rate FiO2 02/15/19 21:31 107 147/84 02/15/19 16:00 97.7 18 98 02/15/19 09:00 Room Air 02/12/19 09:00 2.0 Laboratory Tests Test 02/15/19 05:10 White Blood Count 13.7 K/UL (4.8-10.8) H Red Blood Count 4.25 M/UL (4.70-6.10) L Hemoglobin 12.9 G/DL (14.2-18.0) L Hematocrit 38.5 % (42.0-52.0) L Mean Corpuscular Volume 91 FL (80-99) Mean Corpuscular Hemoglobin 30.4 PG (27.0-31.0) Mean Corpuscular Hemoglobin Concent 33.6 G/DL (32.0-36.0) Red Cell Distribution Width 12.3 % (11.6-14.8) Platelet Count 257 K/UL (150-450) Mean Platelet Volume 7.5 FL (6.5-10.1) Neutrophils (%) (Auto) 73.6 % (45.0-75.0) Lymphocytes (%) (Auto) 20.8 % (20.0-45.0) Monocytes (%) (Auto) 5.1 % (1.0-10.0) Eosinophils (%) (Auto) 0.3 % (0.0-3.0) Basophils (%) (Auto) 0.3 % (0.0-2.0) Sodium Level 140 MMOL/L (136-145) Potassium Level 3.2 MMOL/L (3.5-5.1) L Chloride Level 108 MMOL/L (98-107) H Carbon Dioxide Level 17 MMOL/L (21-32) L Anion Gap 15 mmol/L (5-15) Blood Urea Nitrogen 31 mg/dL (7-18) H Creatinine 1.1 MG/DL (0.55-1.30) Estimat Glomerular Filtration Rate > 60 mL/min (>60) Glucose Level 89 MG/DL (74-106) Calcium Level 8.9 MG/DL (8.5-10.1) Microbiology Date/Time Source Procedure Growth Status 02/13/19 14:06 Sputum Induced Gram Stain - Final Complete 02/13/19 14:06 Sputum Induced Sputum Culture - Final NORMAL UPPER RESPIRATORY LEEANN PRESENT Complete 02/13/19 13:34 Stool Clostridium difficile Toxin Assay - Final Complete Intake and Output 02/14/19 02/15/19 19:00 07:00 # Voids 3 4 # Bowel Movements 4 Objective General: No acute distress, awake and alert, cachectic. HEENT: NCAT, sclera anicteric, PERRL, EOMI. Neck: Supple, no significant jugular venous distention, Lungs: Good inspiratory effort,, clear to auscultation bilaterally, no Wheeze or Rales. Heart: Regular rate and rhythm, normal S1/S2, no murmurs, Abdomen: soft, nontender, nondistended. Normoactive bowel sounds Extremities: No Cyanosis , clubbing or edema. Neuro: A&O x 3, Able to move all extremities Skin: warm, no rash. Assessment/Plan Assessment/Plan 1. Generalized weakness. 2. Hypertension. 3. Hypothyroidism. 4. Rectal cancer. 5. Cerebrovascular disease. 6. HIV/AIDS. 7. Paroxysmal supraventricular tachycardia. 8. Bibasilar atelectasis 9. hypokalemia 10. Sepsis secondary to C. difficile colitis. Plan: KCl supplements, Started IV fluid at 5 cc/hr. Scheduled for colonoscopy in the morning. Antibiotics: Vancomycin p.o. Monitor laboratory as well as culture. CODE STATUS full code Carlos Barragan MD Feb 15, 2019 22:49
[2019-02-15] MEDS: D5 1/2NS w/KCl 20mEq 1,000 ML IV SCH (23:11)
[2019-02-16] VITALS (11 sets, daily range): BP systolic 122–159; BP diastolic 85–98
[2019-02-16] MEDS: Metoclopramide 10mg/2ml Inj IVP PRN ×2 (05:15→11:23)
[2019-02-16 05:55] LABS: BASOPHILS % (AUTO) 0.4 % (0.0-2.0); EOSINOPHILS % (AUTO) 0.3 % (0.0-3.0); HEMATOCRIT 34.8 % (42.0-52.0); LYMPHOCYTES % (AUTO) 16.2 % (20.0-45.0); MEAN CORPUSCULAR VOLUME 89 FL (80-99); MONOCYTES % (AUTO) 5.7 % (1.0-10.0); NEUTROPHILS % (AUTO) 77.5 % (45.0-75.0); PLATELET COUNT 273 K/UL (150-450); RED BLOOD COUNT 3.91 M/UL (4.70-6.10); RED CELL DISTRIBUTION WIDTH 12.2 % (11.6-14.8); WHITE BLOOD COUNT 16.3 K/UL (4.8-10.8)
[2019-02-16] MEDS: dilTIAZem HCl 90mg tab ORAL SCH ×3 (06:00→21:30)
[2019-02-16 06:07] LABS: ANION GAP 13 mmol/L (5-15); BLOOD UREA NITROGEN 25 mg/dL (7-18); CALCIUM 8.6 MG/DL (8.5-10.1); CARBON DIOXIDE 16 MMOL/L (21-32); CHLORIDE 111 MMOL/L (98-107); CREATININE 0.9 MG/DL (0.55-1.30); SODIUM 140 MMOL/L (136-145)
[2019-02-16 06:12] LABS: PHOSPHORUS 2.3 MG/DL (2.5-4.9)
[2019-02-16] MEDS: Levothyroxine 25mcg tab ORAL SCH (06:30)
--- NOTE | 2019-02-16 07:30 | NUR ---
HAND-OFF: Report given to CHARLEY Howard. Endorsed plan of care.
--- NOTE | 2019-02-16 08:08 | Pulmonology Progress Note ---
Assessment/Plan Assessment/Plan ASSESSMENT Sepsis Possible pneumonia C. difficile colitis A. fib with RVR Recurrent SVT Rectal CA HIV Hypertension Hypothyroidism History of CVA Severe protein calorie malnutrition E/lyte abnormalities ( hypo K, hypo P) PLAN OF CARE tele C dif with first recurrence , on Vanco po rate control with Cardizem and digoxin BP stable anticoagulation as per hand collator last Echo with pEF 60% in November outpatient EP study for ablation , as recommended by cardio lipid panel stable IV fluids, K and P replaced ARV therapy , CD4 407 O2 HHN as needed venous duplex negative CT C/A/P noted BSSE with dysphagia v VSSE pending EGD pending for today strict aspiration precaution protein supplements 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 TSH stable, cont current dose of levothyroxine supportive care case discussed and evaluated by supervising physician Subjective Allergies: Coded Allergies: CODEINE (Unverified Allergy, Unknown, 11/28/17) EMTRICITABINE (Verified Allergy, Unknown, anxiousness, 08/31/18) SULFAMETHOXAZOLE (Unverified Allergy, Unknown, 10/27/17) TENOFOVIR (Verified Allergy, Unknown, anxiousness, 08/31/18) TRIMETHOPRIM (Unverified Allergy, Unknown, 10/27/17) Subjective leuk trending up still diarrhea K and P low no CP, no SOB Objective Last 24 Hour Vital Signs Date Time Temp Pulse Resp B/P (MAP) Pulse Ox O2 Delivery O2 Flow Rate FiO2 02/16/19 06:00 105 149/71 02/16/19 04:00 96.6 99 18 147/89 (108) 97 02/16/19 04:00 99 02/16/19 00:00 97.7 105 18 155/90 (111) 95 02/16/19 00:00 105 02/15/19 21:31 107 147/84 02/15/19 21:00 Room Air 02/15/19 20:00 97.7 108 18 145/81 (102) 97 02/15/19 20:00 108 02/15/19 16:00 97.7 102 18 129/79 (96) 98 02/15/19 16:00 99 02/15/19 12:00 97.1 104 18 107/69 (82) 98 02/15/19 12:00 94 02/15/19 09:00 Room Air 02/15/19 09:00 94 Intake and Output 02/15/19 02/16/19 18:59 06:59 Intake Total 670 ml Balance 670 ml Intake Oral 670 ml # Voids 3 3 # Bowel Movements 2 General Appearance: no acute distress, other - weak, chronically ill looking male HEENT: normocephalic, atraumatic, anicteric, mucous membranes moist Respiratory/Chest: lungs clear, no respiratory distress, no accessory muscle use Cardiovascular: normal rate Abdomen: normal bowel sounds, soft, non tender, other - rectal tube with large output Extremities: no edema 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: alert, oriented x 3, responsive Musculoskeletal: atrophy - BLE Microbiology Date/Time Source Procedure Growth Status 02/13/19 14:06 Sputum Induced Gram Stain - Final Complete 02/13/19 14:06 Sputum Induced Sputum Culture - Final NORMAL UPPER RESPIRATORY LEEANN PRESENT Complete 02/13/19 13:34 Stool Stool Culture - Final NO SALMONELLA,SHIGELLA,OR CAMPYLOBACT... Complete 02/13/19 13:34 Stool Clostridium difficile Toxin Assay - Final Complete Laboratory Tests 02/16/19 04:45: White Blood Count 16.3H, Red Blood Count 3.91L, Hemoglobin 12.0L, Hematocrit 34.8L, Mean Corpuscular Volume 89, Mean Corpuscular Hemoglobin 30.8, Mean Corpuscular Hemoglobin Concent 34.6, Red Cell Distribution Width 12.2, Platelet Count 273, Mean Platelet Volume 6.9, Neutrophils (%) (Auto) 77.5H, Lymphocytes ( %) (Auto) 16.2L, Monocytes (%) (Auto) 5.7, Eosinophils (%) (Auto) 0.3, Basophils (%) (Auto) 0.4, Prothrombin Time 10.6, Prothromb Time International Ratio 1.0, Activated Partial Thromboplast Time 23, Sodium Level 140, Potassium Level 3.0L, Chloride Level 111H, Carbon Dioxide Level 16L, Anion Gap 13, Blood Urea Nitrogen 25H, Creatinine 0.9, Estimat Glomerular Filtration Rate > 60, Glucose Level 133H, Calcium Level 8.6, Phosphorus Level 2.3L, Magnesium Level 1.9 Current Medications Medications (Trade) Dose Ordered Sig/Roman Route PRN Reason Start Time Stop Time Status Last Admin Dose Admin Acetaminophen (Tylenol) 650 mg Q4H PRN ORAL fever 02/10/19 14:00 03/12/19 13:59 02/10/19 20:39 Barium Sulfate (Varibar Honey) 250 ml NOW PRN Radiology Procedure 02/14/19 13:30 02/17/19 13:24 Barium Sulfate (Varibar [place]) 230 ml NOW PRN Radiology Procedure 02/14/19 13:30 02/17/19 13:24 Barium Sulfate (Varibar Pudding) 230 ml NOW PRN Radiology Procedure 02/14/19 13:30 02/17/19 13:24 Dextrose (Dextrose 50%) 25 ml Q30M PRN IV Hypoglycemia 02/10/19 14:15 03/12/19 14:05 Dextrose (Dextrose 50%) 50 ml Q30M PRN IV hypoglycemia 02/10/19 14:15 03/12/19 14:14 Dextrose/ Electrolytes 1,000 ml @ 75 mls/hr [id number] IV 02/15/19 21:00 03/17/19 20:59 02/15/19 23:11 Digoxin (Lanoxin) 0.125 mg DAILY ORAL 02/14/19 09:00 03/16/19 08:59 02/14/19 09:58 Diltiazem HCl (Cardizem) 90 mg EVERY 8 HOURS ORAL 02/14/19 14:00 03/14/19 13:59 02/15/19 21:31 Famotidine (Pepcid) 20 mg BID ORAL 02/15/19 18:00 03/13/19 22:29 Gabapentin (Neurontin) 600 mg THREE TIMES A DAY ORAL 02/10/19 18:00 03/12/19 17:59 02/14/19 09:58 Levothyroxine Sodium (Synthroid) 25 mcg DAILY@0630 ORAL 02/11/19 06:30 03/13/19 06:29 02/15/19 06:33 Lorazepam (Ativan 2mg/ml 1ml) 0.5 mg Q4H PRN IV For Anxiety 02/10/19 14:00 02/17/19 13:59 02/14/19 14:12 Meningococcal Polysaccharide Vacc (Menomune-A/C/Y/ W-135) 0.5 ml ONCE ONCE IM 02/13/19 18:00 02/13/19 18:01 UNV Metoclopramide HCl (Reglan) 5 mg Q6H PRN IVP Nausea & Vomiting 02/12/19 07:30 03/14/19 07:29 02/16/19 05:15 Mirtazapine (Remeron) 15 mg BEDTIME ORAL 02/10/19 21:00 03/12/19 20:59 02/15/19 21:31 Morphine Sulfate (Morphine Sulfate) 1 mg Q4H PRN IVP For Pain 02/10/19 14:00 02/17/19 13:59 02/12/19 14:39 Paroxetine HCl (Paxil) 40 mg DAILY ORAL 02/11/19 09:00 03/13/19 08:59 02/14/19 09:58 Patient Own Medication (Patient's Own Med) 1 ea BID ORAL 02/13/19 20:00 03/15/19 19:59 02/14/19 10:50 Patient Own Medication (Patient's Own Med) 1 ea DAILY ORAL 02/13/19 20:00 03/15/19 19:59 02/14/19 09:00 Patient Own Medication (Patient's Own Med) 1 ea DAILY ORAL 02/13/19 20:00 03/15/19 19:59 02/14/19 10:50 Polyethylene Glycol (Miralax) 17 gm HSPRN PRN ORAL Constipation 02/10/19 14:00 03/12/19 13:59 Tamsulosin HCl (Flomax) 0.4 mg BID ORAL 02/10/19 18:00 03/12/19 17:59 02/14/19 09:58 Vancomycin HCl (Firvanq) 125 mg FOUR TIMES A DAY ORAL 02/13/19 13:00 02/20/19 18:30 02/15/19 21:32 Zolpidem Tartrate (Ambien) 5 mg HSPRN PRN ORAL Insomnia 02/10/19 14:00 02/17/19 13:59 Karla Mason NP Feb 16, 2019 08:08
--- NOTE | 2019-02-16 08:35 | Anethesia Preoperative Eval ---
Anesthesia Pre-op PMH/ROS General Date of Evaluation: Feb 16, 2019 Anesthesiologist: Sravan ASA Score: ASA 4 Mallampati Score Class I : Soft palate, uvula, fauces, pillars visible Class II: Soft palate, uvula, fauces visible Class III: Soft palate, base of uvula visible Class IV: Only hard plate visible Mallampati Classification: Class III Surgeon: Jessa Diagnosis: nausea/vomitting Surgical Procedure: egd Anesthesia History: none Social History: alcohol use, drug use Family History: no anesthesia problems Allergies: Coded Allergies: CODEINE (Unverified Allergy, Unknown, 11/28/17) EMTRICITABINE (Verified Allergy, Unknown, anxiousness, 08/31/18) SULFAMETHOXAZOLE (Unverified Allergy, Unknown, 10/27/17) TENOFOVIR (Verified Allergy, Unknown, anxiousness, 08/31/18) TRIMETHOPRIM (Unverified Allergy, Unknown, 10/27/17) Medications: see eMAR Patient NPO?: Yes NPO Date: Feb 15, 2019 NPO Time: 22:00 Past Medical History Cardiovascular: Reports: HTN; Denies: CAD, AK, valve dz, arrhythmia, other Pulmonary: Denies: asthma, COPD, MARIA, other Gastrointestinal/Genitourinary: Reports: other - rectal cancer, c. diff colitis , dysphagia; Denies: GERD, CRI, ESRD 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: Reports: CVA, depression/anxiety; Denies: dementia, TIA, other Endocrine: Reports: hypothyroidism; Denies: DM, steroids, other HEENT: Denies: cataract (L), cataract (R), glaucoma, HUGHES (L), HUGHES (R), other Hematology/Immune: Reports: other - HIV, hep B; Denies: anemia, DVT, bleeding disorder Musculoskeletal/Integumentary: Denies: OA, RA, DJD, DDD, edema, other PSxH Narrative: umbilical hernia repair Anesthesia Pre-op Phys. Exam Physician Exam Last Vital Signs Date Time Temp Pulse Resp B/P (MAP) Pulse Ox O2 Delivery O2 Flow Rate FiO2 02/16/19 06:00 105 149/71 02/16/19 04:00 96.6 18 97 02/15/19 21:00 Room Air 02/12/19 09:00 2.0 Constitutional: NAD Cardiovascular: RRR Respiratory: CTA Airway Exam Mallampati Score: Class III MO: limited ROM: limited Anesthesia Pre-op A/P Labs Hematology Test 02/16/19 04:45 White Blood Count 16.3 K/UL (4.8-10.8) H Red Blood Count 3.91 M/UL (4.70-6.10) L Hemoglobin 12.0 G/DL (14.2-18.0) L Hematocrit 34.8 % (42.0-52.0) L Mean Corpuscular Volume 89 FL (80-99) Mean Corpuscular Hemoglobin 30.8 PG (27.0-31.0) Mean Corpuscular Hemoglobin Concent 34.6 G/DL (32.0-36.0) Red Cell Distribution Width 12.2 % (11.6-14.8) Platelet Count 273 K/UL (150-450) Mean Platelet Volume 6.9 FL (6.5-10.1) Neutrophils (%) (Auto) 77.5 % (45.0-75.0) H Lymphocytes (%) (Auto) 16.2 % (20.0-45.0) L Monocytes (%) (Auto) 5.7 % (1.0-10.0) Eosinophils (%) (Auto) 0.3 % (0.0-3.0) Basophils (%) (Auto) 0.4 % (0.0-2.0) Coagulation Test 02/16/19 04:45 Prothrombin Time 10.6 SEC (9.30-11.50) Prothromb Time International Ratio 1.0 (0.9-1.1) Activated Partial Thromboplast Time 23 SEC (23-33) Chemistry Test 02/16/19 04:45 Sodium Level 140 MMOL/L (136-145) Potassium Level 3.0 MMOL/L (3.5-5.1) L Chloride Level 111 MMOL/L (98-107) H Carbon Dioxide Level 16 MMOL/L (21-32) L Anion Gap 13 mmol/L (5-15) Blood Urea Nitrogen 25 mg/dL (7-18) H Creatinine 0.9 MG/DL (0.55-1.30) Estimat Glomerular Filtration Rate > 60 mL/min (>60) Glucose Level 133 MG/DL (74-106) H Calcium Level 8.6 MG/DL (8.5-10.1) Phosphorus Level 2.3 MG/DL (2.5-4.9) L Magnesium Level 1.9 MG/DL (1.8-2.4) Studies Pre-op Studies: EKG - sr Risk Assessment & Plan Assessment: ASA III Plan: MAC Status Change Before Surgery: No Pre-Antibiotics Drug: N/A Irena Garcia MD Feb 16, 2019 08:35
[2019-02-16] MEDS: Digoxin 0.125mg tab ORAL SCH ×2 (08:58→09:19)
[2019-02-16] MEDS: PARoxetine 20mg tab ORAL SCH ×2 (08:59→09:20)
[2019-02-16] MEDS: Tamsulosin 0.4mg cap ORAL SCH ×2 (08:59→09:19)
[2019-02-16] MEDS: Vancomycin oral 125mg/2.5ml ORAL SCH ×4 (09:12→20:11)
[2019-02-16] MEDS: INTELENCE 200 MG ORAL SCH ×2 (09:13→09:19)
[2019-02-16] MEDS ORDERED: LR 1000ml 1,000 ML IVLG SCH (09:26)
[2019-02-16] MEDS ORDERED: DiphenhydrAMINE 50mg/ml Inj IVP PRN (09:30)
[2019-02-16] MEDS ORDERED: Potassium Phosphate 30 MM in NS 275 ML IVPB ONE (09:30)
[2019-02-16] MEDS ORDERED: Potassium Phosphate 30 MM in NS 275 ML IV SCH (10:00)
[2019-02-16] MEDS: D5 1/2NS w/KCl 20mEq 1,000 ML IV SCH ×2 (10:25→23:40)
[2019-02-16] MEDS: metroNIDAZOLE 500mg Premix IVPB SCH ×3 (10:28→21:22)
--- NOTE | 2019-02-16 11:24 | Pre-Procedure Note/Attestation ---
Pre-Procedure Note/Attestation Complete Prior to Procedure Planned Procedure: not applicable Procedure Narrative: egd Indications for Procedure Pre-Operative Diagnosis: gib Attestation I attest that I discussed the nature of the procedure; its benefits; risks and complications; and alternatives (and the risks and benefits of such alternatives ), prior to the procedure, with the patient (or the patient's legal group sales representative). I attest that, if there was a reasonable possibility of needing a blood transfusion, the patient (or the patient's legal group sales representative) was given the [facility] standardized written summary, pursuant to the Edu Kerry Blood Safety Act ([place] Health and Safety Code # 1645, as amended). I attest that I re-evaluated the patient just prior to the surgery and that there has been no change in the patient's H&P, except as documented below: Dejan Germain MD Feb 16, 2019 11:24
[2019-02-16] MEDS ORDERED: NS 500ML IVPB ONE (11:42)
--- NOTE | 2019-02-16 11:50 | NUR ---
Received patient in his bed while resting with open eyes, patient a/o x 4. call light with in reach and iv intact. patient refused his morning po medications potassium 3.0>>>>>> 40 meq KCL via IV ordered by DR. Barragan patient vomited x 1 >>>>Reglan admin as ordered patient having dark bon color and watery stool since morning patient off the unit for EGD @ 1150am
[2019-02-16] MEDS ORDERED: Lidocaine 1% MPF 10mg/ml 5ml ONE (12:00)
[2019-02-16] MEDS ORDERED: Succinylcholine 20mg/ml 10ml vial ONE (12:00)
[2019-02-16] MEDS ORDERED: LR 1000ml ONE (12:00)
[2019-02-16] MEDS ORDERED: Propofol 200mg/20ml IV ONE (12:00)
--- NOTE | 2019-02-16 12:21 | Endoscopy Procedure Note ---
Endoscopy Procedure Note General Indication for Procedure: esophgaeal wall thickening Procedures Performed: EGD Operative Findings/Diagnosis: esophagitis Specimen: yes Pt Tolerated Procedure Well: Yes Estimated Blood Loss: none Anesthesia Anesthesiologist: nancy Anesthesia: MAC Inserted Devices Implant(s) used?: No GI Core Measures 50 yrs or older w/o bx or poly: Not Applicable 10yrs. F/U recommended: Not Applicable Dejan Germain MD Feb 16, 2019 12:21
--- NOTE | 2019-02-16 12:35 | Immediate Post-Op Evaluation ---
Immediate Post-Op Evalulation Immediate Post-Op Evalulation Procedure: EGD Date of Evaluation: Feb 16, 2019 Time of Evaluation: 12:34 IV Fluids: 200 Blood Products: 0 Estimated Blood Loss: 0 Urinary Output: 0 Blood Pressure Systolic: 134 Blood Pressure Diastolic: 92 Pulse Rate: 99 Respiratory Rate: 16 O2 Sat by Pulse Oximetry: 99 Temperature (Fahrenheit): 99 Pain Score (1-10): 0 Nausea: No Vomiting: No Complications 0 Patient Status: awake, reacts, patent, none Hydration Status: adequate Drug: N/A Irena Garcia MD Feb 16, 2019 12:35
--- NOTE | 2019-02-16 12:40 | 48 Hour Post Anesthesia Eval ---
Post Anesthesia Evaluation Procedure: EGD Date of Evaluation: Feb 16, 2019 Airway: patent Nausea: No Vomiting: No Pain Intensity: 0 Hydration Status: adequate Cardiopulmonary Status: at baseline Mental Status/LOC: patient returned to baseline Post-Anesthesia Complications: 0 Follow-up care needed: N/A - further care as per primary team Irena Garcia MD Feb 16, 2019 12:40
--- NOTE | 2019-02-16 13:00 | Cardiology Progress Note ---
Assessment/Plan Status: stable Assessment/Plan Assessment/Plan Assessment/Plan 1. Atrial fibrillation, rapid ventricular response. Echocardiogram LVEF 60% Cardizem increased to 90 TID LVEF 60% Will need to start anticoagulation for elevated CHADs score 4 2. Hypertension. -controlled 3. Recurrent supraventricular tachycardia of sudden onset and termination. Continue Cardizem Follow up EP outpatient for ablation consideration 4. Human immunodeficiency virus. 5. Generalized weakness. 6. Rectal cancer. 7. Cerebrovascular accident. Subjective Cardiovascular: Reports: no symptoms Respiratory: Reports: no symptoms Gastrointestinal/Abdominal: Reports: no symptoms Genitourinary: Reports: no symptoms Subjective Coverage for [place] No acute events, mild N/V, vitals stable Objective Last 24 Hour Vital Signs Date Time Temp Pulse Resp B/P (MAP) Pulse Ox O2 Delivery O2 Flow Rate FiO2 02/16/19 12:49 108 24 125/94 100 Nasal Cannula 3 02/16/19 12:39 107 24 142/88 100 Simple Mask 6 02/16/19 12:35 99 16 99 02/16/19 12:34 104 24 146/98 100 Simple Mask 6 02/16/19 12:29 98.0 100 24 134/92 100 Simple Mask 6 02/16/19 10:41 Room Air 02/16/19 09:19 105 02/16/19 08:58 105 02/16/19 08:56 98.1 105 24 152/93 (112) 94 02/16/19 06:00 105 149/71 02/16/19 04:00 96.6 99 18 147/89 (108) 97 02/16/19 04:00 99 02/16/19 00:00 97.7 105 18 155/90 (111) 95 02/16/19 00:00 105 02/15/19 21:31 107 147/84 02/15/19 21:00 Room Air 02/15/19 20:00 97.7 108 18 145/81 (102) 97 02/15/19 20:00 108 02/15/19 16:00 97.7 102 18 129/79 (96) 98 02/15/19 16:00 99 General Appearance: no apparent distress, alert EENT: PERRL/EOMI, normal ENT inspection, TMs normal Neck: non-tender, normal alignment, supple, normal inspection Rhythm: NSR Cardiovascular: normal peripheral pulses, normal rate, regular rhythm Respiratory/Chest: chest wall non-tender, no respiratory distress Abdomen: normal bowel sounds, non tender, soft, no organomegaly, no mass Extremities: normal range of motion, non-tender, normal inspection 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, no motor/sensory deficits Intake and Output 02/15/19 02/16/19 19:00 07:00 Intake Total 670 ml Balance 670 ml Intake Oral 670 ml # Voids 3 3 # Bowel Movements 2 Laboratory Tests Test 02/16/19 04:45 White Blood Count 16.3 K/UL (4.8-10.8) H Red Blood Count 3.91 M/UL (4.70-6.10) L Hemoglobin 12.0 G/DL (14.2-18.0) L Hematocrit 34.8 % (42.0-52.0) L Mean Corpuscular Volume 89 FL (80-99) Mean Corpuscular Hemoglobin 30.8 PG (27.0-31.0) Mean Corpuscular Hemoglobin Concent 34.6 G/DL (32.0-36.0) Red Cell Distribution Width 12.2 % (11.6-14.8) Platelet Count 273 K/UL (150-450) Mean Platelet Volume 6.9 FL (6.5-10.1) Neutrophils (%) (Auto) 77.5 % (45.0-75.0) H Lymphocytes (%) (Auto) 16.2 % (20.0-45.0) L Monocytes (%) (Auto) 5.7 % (1.0-10.0) Eosinophils (%) (Auto) 0.3 % (0.0-3.0) Basophils (%) (Auto) 0.4 % (0.0-2.0) Prothrombin Time 10.6 SEC (9.30-11.50) Prothromb Time International Ratio 1.0 (0.9-1.1) Activated Partial Thromboplast Time 23 SEC (23-33) Sodium Level 140 MMOL/L (136-145) Potassium Level 3.0 MMOL/L (3.5-5.1) L Chloride Level 111 MMOL/L (98-107) H Carbon Dioxide Level 16 MMOL/L (21-32) L Anion Gap 13 mmol/L (5-15) Blood Urea Nitrogen 25 mg/dL (7-18) H Creatinine 0.9 MG/DL (0.55-1.30) Estimat Glomerular Filtration Rate > 60 mL/min (>60) Glucose Level 133 MG/DL (74-106) H Calcium Level 8.6 MG/DL (8.5-10.1) Phosphorus Level 2.3 MG/DL (2.5-4.9) L Magnesium Level 1.9 MG/DL (1.8-2.4) Microbiology Date/Time Source Procedure Growth Status 02/13/19 14:06 Sputum Induced Gram Stain - Final Complete 02/13/19 14:06 Sputum Induced Sputum Culture - Final NORMAL UPPER RESPIRATORY LEEANN PRESENT Complete 02/13/19 13:34 Stool Stool Culture - Final NO SALMONELLA,SHIGELLA,OR CAMPYLOBACT... Complete 02/13/19 13:34 Stool Clostridium difficile Toxin Assay - Final Complete Price Reaves MD Feb 16, 2019 13:00
--- NOTE | 2019-02-16 14:53 | Infectious Diseases Prog Note ---
Assessment/Plan Assessment/Plan Assessment: Sepsis--Cdiff colitis, 1st recurrence -CT abd/p: Sigmoid and rectal colonic wall thickening with some mucosal edema along with scattered small bowel loops with bowel wall thickening suggestive of enterocolitis. Duodenal wall thickening with associated fat stranding, which may share etiology with enterocolitis; however, correlation with lipase is recommended to exclude groove pancreatitis. Evidence of infectious/inflammatory small airways disease; patchy left basilar airspace consolidation raises possibility of developing pneumonia. Refluxing esophagus with distal esophageal wall thickening; correlation with recent endoscopy is recommended. -CXR: Bibasilar opacities likely representing subsegmental atelectasis. -u/a neg -BCx Neg -normal lipase and amylase -sp cx: normal resp thomas -stool cx neg Fever; SP Leukocytosis, increasing Esophagitis -02/16 SP EGD: esophagitis hx of Cdiff 09/2018- - failed oral vancomycin; sp tx w/ Fidaxomicin --09/06 Cdiff toxin a/b +; repeat Cdiff neg x2 -09/06 SP Colonoscopy: proctitis -stool cx: normal thomas -Giardia ag, cryptosporidium neg Hx of UTI 08/2018 -u/a wbc 10-15, shirley neg, leuk +3; ucx >100K PROTEUS MIRABILIS ( I Levo; R Amp, bactrim, Cipro, Nitro; S Ceftriaxone) HIV/AIDS- on ARV =02/19 CD4 407 (11%) -11/19 CD4 392 (17.4%) -09/2018 182 (10.1%), VL UD -11/2017 CD4 323 Rectal CA (ongoing w/u at [facility]) CVA 2004 HTN Plan: -Cont oral vancomycin #/- -Will add IV Flagyl as patient refusing some doses of oral vancomycin -Fluconazole for esophagitis -02/14 SP IV Vancomycin, Zosyn #4 -12/01 Sp Cefepime #14, Flagyl #14 -11/22 SP IV Vancomycin #6 -11/17 SP Zosyn x1 -09/23 SP Fidaxomicin #10 -09/13/18 SP PO Vancomycin #8 -f/u cx -Monitor CBC/CMP, temperatures -CXR am Thank you for this consultation. Will continue to follow along with you. Discussed with RN Subjective Allergies: Coded Allergies: CODEINE (Unverified Allergy, Unknown, 11/28/17) EMTRICITABINE (Verified Allergy, Unknown, anxiousness, 08/31/18) SULFAMETHOXAZOLE (Unverified Allergy, Unknown, 10/27/17) TENOFOVIR (Verified Allergy, Unknown, anxiousness, 08/31/18) TRIMETHOPRIM (Unverified Allergy, Unknown, 10/27/17) Subjective afebrile wbc increasing Bcx Neg s/p EGD- esophagitis- start on fluconazole refusing some some doses of vancomycin Objective Vital Signs Last 24 Hour Vital Signs Date Time Temp Pulse Resp B/P (MAP) Pulse Ox O2 Delivery O2 Flow Rate FiO2 02/16/19 13:05 98.0 94 22 124/85 96 Nasal Cannula 3 02/16/19 12:59 99 20 122/87 95 Nasal Cannula 3 02/16/19 12:49 108 24 125/94 100 Nasal Cannula 3 02/16/19 12:39 107 24 142/88 100 Simple Mask 6 02/16/19 12:35 99 16 99 02/16/19 12:34 104 24 146/98 100 Simple Mask 6 02/16/19 12:29 98.0 100 24 134/92 100 Simple Mask 6 02/16/19 10:41 Room Air 02/16/19 09:19 105 02/16/19 08:58 105 02/16/19 08:56 98.1 105 24 152/93 (112) 94 02/16/19 06:00 105 149/71 02/16/19 04:00 96.6 99 18 147/89 (108) 97 02/16/19 04:00 99 02/16/19 00:00 97.7 105 18 155/90 (111) 95 02/16/19 00:00 105 02/15/19 21:31 107 147/84 02/15/19 21:00 Room Air 02/15/19 20:00 97.7 108 18 145/81 (102) 97 02/15/19 20:00 108 02/15/19 16:00 97.7 102 18 129/79 (96) 98 02/15/19 16:00 99 Height (Feet): 5 Height (Inches): 5.00 Weight (Pounds): 144 Objective GENERAL: The patient is a thin-appearing white male, in no apparent distress. HEENT: Eyes, pupils are equal and responsive to light and accommodation. Extraocular movements are intact. NECK: Supple without lymphadenopathy. CHEST: Lungs are clear to auscultation bilaterally without wheezes or rales. CARDIOVASCULAR: Regular rhythm and rate. S1 and S2 are normal without murmurs, rubs, or gallops. ABDOMEN: Soft, nontender, and nondistended. Positive bowel sounds. No evidence of hepatosplenomegaly. Currently, no rebound or guarding noted. EXTREMITIES: Negative for clubbing, cyanosis, or edema. NEUROLOGIC: Cranial nerves II through XII are grossly intact without focal deficits. Laboratory Tests Test 02/16/19 04:45 White Blood Count 16.3 K/UL (4.8-10.8) H Red Blood Count 3.91 M/UL (4.70-6.10) L Hemoglobin 12.0 G/DL (14.2-18.0) L Hematocrit 34.8 % (42.0-52.0) L Mean Corpuscular Volume 89 FL (80-99) Mean Corpuscular Hemoglobin 30.8 PG (27.0-31.0) Mean Corpuscular Hemoglobin Concent 34.6 G/DL (32.0-36.0) Red Cell Distribution Width 12.2 % (11.6-14.8) Platelet Count 273 K/UL (150-450) Mean Platelet Volume 6.9 FL (6.5-10.1) Neutrophils (%) (Auto) 77.5 % (45.0-75.0) H Lymphocytes (%) (Auto) 16.2 % (20.0-45.0) L Monocytes (%) (Auto) 5.7 % (1.0-10.0) Eosinophils (%) (Auto) 0.3 % (0.0-3.0) Basophils (%) (Auto) 0.4 % (0.0-2.0) Prothrombin Time 10.6 SEC (9.30-11.50) Prothromb Time International Ratio 1.0 (0.9-1.1) Activated Partial Thromboplast Time 23 SEC (23-33) Sodium Level 140 MMOL/L (136-145) Potassium Level 3.0 MMOL/L (3.5-5.1) L Chloride Level 111 MMOL/L (98-107) H Carbon Dioxide Level 16 MMOL/L (21-32) L Anion Gap 13 mmol/L (5-15) Blood Urea Nitrogen 25 mg/dL (7-18) H Creatinine 0.9 MG/DL (0.55-1.30) Estimat Glomerular Filtration Rate > 60 mL/min (>60) Glucose Level 133 MG/DL (74-106) H Calcium Level 8.6 MG/DL (8.5-10.1) Phosphorus Level 2.3 MG/DL (2.5-4.9) L Magnesium Level 1.9 MG/DL (1.8-2.4) Current Medications Medications (Trade) Dose Ordered Sig/Roman Route PRN Reason Start Time Stop Time Status Last Admin Dose Admin Acetaminophen (Tylenol) 650 mg Q4H PRN ORAL fever 02/10/19 14:00 03/12/19 13:59 02/10/19 20:39 Barium Sulfate (Varibar Honey) 250 ml NOW PRN Radiology Procedure 02/14/19 13:30 02/17/19 13:24 Barium Sulfate (Varibar [place]) 230 ml NOW PRN Radiology Procedure 02/14/19 13:30 02/17/19 13:24 Barium Sulfate (Varibar Pudding) 230 ml NOW PRN Radiology Procedure 02/14/19 13:30 02/17/19 13:24 Dextrose (Dextrose 50%) 25 ml Q30M PRN IV Hypoglycemia 02/10/19 14:15 03/12/19 14:05 Dextrose (Dextrose 50%) 50 ml Q30M PRN IV hypoglycemia 02/10/19 14:15 03/12/19 14:14 Dextrose/ Electrolytes 1,000 ml @ 75 mls/hr [id number] IV 02/15/19 21:00 03/17/19 20:59 02/16/19 10:25 Digoxin (Lanoxin) 0.125 mg DAILY ORAL 02/14/19 09:00 03/16/19 08:59 02/16/19 08:58 Diltiazem HCl (Cardizem) 90 mg EVERY 8 HOURS ORAL 02/14/19 14:00 03/14/19 13:59 02/15/19 21:31 Famotidine (Pepcid) 20 mg BID ORAL 02/15/19 18:00 03/13/19 22:29 02/16/19 09:14 Fluconazole (Diflucan) 200 mg DAILY ORAL 02/17/19 09:00 02/24/19 08:59 Gabapentin (Neurontin) 600 mg THREE TIMES A DAY ORAL 02/10/19 18:00 03/12/19 17:59 02/16/19 08:58 Levothyroxine Sodium (Synthroid) 25 mcg DAILY@0630 ORAL 02/11/19 06:30 03/13/19 06:29 02/15/19 06:33 Lorazepam (Ativan 2mg/ml 1ml) 0.5 mg Q4H PRN IV For Anxiety 02/10/19 14:00 02/17/19 13:59 02/14/19 14:12 Meningococcal Polysaccharide Vacc (Menomune-A/C/Y/ W-135) 0.5 ml ONCE ONCE IM 02/13/19 18:00 02/13/19 18:01 UNV Metoclopramide HCl (Reglan) 5 mg Q6H PRN IVP Nausea & Vomiting 02/12/19 07:30 03/14/19 07:29 02/16/19 11:23 Metronidazole 100 ml @ 100 mls/hr Q8HR IVPB 02/16/19 09:30 02/23/19 09:29 02/16/19 10:28 Mirtazapine (Remeron) 15 mg BEDTIME ORAL 02/10/19 21:00 03/12/19 20:59 02/15/19 21:31 Morphine Sulfate (Morphine Sulfate) 1 mg Q4H PRN IVP For Pain 02/10/19 14:00 02/17/19 13:59 02/12/19 14:39 Paroxetine HCl (Paxil) 40 mg DAILY ORAL 02/11/19 09:00 03/13/19 08:59 02/16/19 08:59 Patient Own Medication (Patient's Own Med) 1 ea BID ORAL 02/13/19 20:00 03/15/19 19:59 02/16/19 09:13 Patient Own Medication (Patient's Own Med) 1 ea DAILY ORAL 02/13/19 20:00 03/15/19 19:59 02/16/19 09:13 Patient Own Medication (Patient's Own Med) 1 ea DAILY ORAL 02/13/19 20:00 03/15/19 19:59 8/16/19 09:13 Polyethylene Glycol (Miralax) 17 gm HSPRN PRN ORAL Constipation 02/10/19 14:00 03/12/19 13:59 Potassium Phosphate 30 mm/ Sodium Chloride 285 ml @ 47.5 mls/hr ONCE IV 02/16/19 10:00 02/16/19 16:00 02/16/19 10:25 Potassium Chloride 100 ml @ 50 mls/hr Q2H IVPB 02/16/19 12:00 02/16/19 17:59 02/16/19 11:23 Tamsulosin HCl (Flomax) 0.4 mg BID ORAL 02/10/19 18:00 03/12/19 17:59 02/16/19 08:59 Vancomycin HCl (Firvanq) 125 mg FOUR TIMES A DAY ORAL 02/13/19 13:00 02/21/19 14:00 02/16/19 11:23 Zolpidem Tartrate (Ambien) 5 mg HSPRN PRN ORAL Insomnia 02/10/19 14:00 02/17/19 13:59 Miranda Cordero M.D. Feb 16, 2019 14:53
--- NOTE | 2019-02-16 17:15 | Procedure Note ---
DATE OF PROCEDURE: 02/16/2019 SURGEON: Dejan Germain M.D. PROCEDURE: Upper endoscopy with biopsy and brush biopsy. ANESTHESIA: Per Dr. Hinson. INSTRUMENT: Olympus adult flexible upper endoscope. INDICATION: 1. Dysphagia. 2. Distal esophageal wall thickening, based on CT. REASON FOR PROCEDURE: The procedure, risks, benefits, and possible consequences, including hemorrhage, aspiration, perforation and infection, and alternative treatments, were explained to the patient/legal guardian by Dr. Dejan Germain and the patient/legal guardian understood and accepted these risks. PROCEDURE IN DETAIL: After informed consent was obtained and the patient was adequately sedated, Olympus upper endoscope was advanced from mouth into the second portion of the duodenum and retroflexion was performed in the stomach. The patient had severe distal esophagus, it seems that may be either extensive or Veda infection given the smell was extremely bad versus ischemic distal esophagitis. This area was biopsied. In the stomach, there was diffuse gastritis. Random biopsy from antrum was obtained to rule out H. pylori infection. In the duodenum, there were two ulcers both in the proximal duodenum without any adherent clot or visible vessel and not actively bleeding at this time. We also did a brush biopsy of the esophagus before removing the scope. SUMMARY OF FINDINGS: 1. Severe distal esophagitis, atypical, questionable severe Veda esophagitis versus ischemic esophagitis, status post biopsy and brushing. 2. Duodenal ulcerations. 3. Gastritis, status post biopsy. RECOMMENDATIONS: 1. Follow up pathology and treat accordingly. 2. The patient is to be on a PPI given duodenal ulceration. 3. We will start fluconazole for Veda esophagitis, pending results of the brushing and biopsy. I want to thank, Dr. Carlos Barragan, for this kind referral. Dejan Germain M.D. DR: Nicolasa JOB#: [id number] CC: Carlos Barragan M.D.; Fax#: [phone]
--- NOTE | 2019-02-16 19:10 | NUR ---
HAND-OFF: Report given to JOAO WHITEHEAD.
--- NOTE | 2019-02-16 19:12 | NUR ---
Received report from Anita WHITEHEAD. 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 AO x 3. No acute distress noted. Bed is in lower position. Rails are up x3. Bed alarm is on.
--- NOTE | 2019-02-16 20:02 | Internal Med Progress Note ---
Subjective Physician Name Carlos Barragan Attending Physician Carlos Barragan MD Current Medications Medications (Trade) Dose Ordered Sig/Roman Route PRN Reason Start Time Stop Time Status Last Admin Dose Admin Acetaminophen (Tylenol) 650 mg Q4H PRN ORAL fever 02/10/19 14:00 03/12/19 13:59 02/10/19 20:39 Barium Sulfate (Varibar Honey) 250 ml NOW PRN Radiology Procedure 02/14/19 13:30 02/17/19 13:24 Barium Sulfate (Varibar [place]) 230 ml NOW PRN Radiology Procedure 02/14/19 13:30 02/17/19 13:24 Barium Sulfate (Varibar Pud[place]) 230 ml NOW PRN Radiology Procedure 02/14/19 13:30 02/17/19 13:24 Dextrose (Dextrose 50%) 25 ml Q30M PRN IV Hypoglycemia 02/10/19 14:15 03/12/19 14:05 Dextrose (Dextrose 50%) 50 ml Q30M PRN IV hypoglycemia 02/10/19 14:15 03/12/19 14:14 Dextrose/ Electrolytes 1,000 ml @ 75 mls/hr [id number] IV 02/15/19 21:00 03/17/19 20:59 02/16/19 10:25 Digoxin (Lanoxin) 0.125 mg DAILY ORAL 02/14/19 09:00 03/16/19 08:59 02/16/19 08:58 Diltiazem HCl (Cardizem) 90 mg EVERY 8 HOURS ORAL 02/14/19 14:00 03/14/19 13:59 02/16/19 14:45 Famotidine (Pepcid) 20 mg BID ORAL 02/15/19 18:00 03/13/19 22:29 02/16/19 09:14 Fluconazole (Diflucan) 200 mg DAILY ORAL 02/17/19 09:00 02/24/19 08:59 Gabapentin (Neurontin) 600 mg THREE TIMES A DAY ORAL 02/10/19 18:00 03/12/19 17:59 02/16/19 16:57 Levothyroxine Sodium (Synthroid) 25 mcg DAILY@0630 ORAL 02/11/19 06:30 03/13/19 06:29 02/15/19 06:33 Lorazepam (Ativan 2mg/ml 1ml) 0.5 mg Q4H PRN IV For Anxiety 02/10/19 14:00 02/17/19 13:59 02/14/19 14:12 Meningococcal Polysaccharide Vacc (Menomune-A/C/Y/ W-135) 0.5 ml ONCE ONCE IM 02/13/19 18:00 02/13/19 18:01 UNV Metoclopramide HCl (Reglan) 5 mg Q6H PRN IVP Nausea & Vomiting 02/12/19 07:30 03/14/19 07:29 02/16/19 11:23 Metronidazole 100 ml @ 100 mls/hr Q8HR IVPB 02/16/19 09:30 02/23/19 09:29 02/16/19 14:42 Mirtazapine (Remeron) 15 mg BEDTIME ORAL 02/10/19 21:00 03/12/19 20:59 02/15/19 21:31 Morphine Sulfate (Morphine Sulfate) 1 mg Q4H PRN IVP For Pain 02/10/19 14:00 02/17/19 13:59 02/12/19 14:39 Paroxetine HCl (Paxil) 40 mg DAILY ORAL 02/11/19 09:00 03/13/19 08:59 02/16/19 08:59 Patient Own Medication (Patient's Own Med) 1 ea BID ORAL 02/13/19 20:00 03/15/19 19:59 02/16/19 09:13 Patient Own Medication (Patient's Own Med) 1 ea DAILY ORAL 02/13/19 20:00 03/15/19 19:59 02/16/19 09:13 Patient Own Medication (Patient's Own Med) 1 ea DAILY ORAL 02/13/19 20:00 03/15/19 19:59 02/16/19 09:13 Polyethylene Glycol (Miralax) 17 gm HSPRN PRN ORAL Constipation 02/10/19 14:00 03/12/19 13:59 Tamsulosin HCl (Flomax) 0.4 mg BID ORAL 02/10/19 18:00 03/12/19 17:59 02/16/19 08:59 Vancomycin HCl (Firvanq) 125 mg FOUR TIMES A DAY ORAL 02/13/19 13:00 02/21/19 14:00 02/16/19 16:57 Zolpidem Tartrate (Ambien) 5 mg HSPRN PRN ORAL Insomnia 02/10/19 14:00 02/17/19 13:59 Allergies: Coded Allergies: CODEINE (Unverified Allergy, Unknown, 11/28/17) EMTRICITABINE (Verified Allergy, Unknown, anxiousness, 08/31/18) SULFAMETHOXAZOLE (Unverified Allergy, Unknown, 10/27/17) TENOFOVIR (Verified Allergy, Unknown, anxiousness, 08/31/18) TRIMETHOPRIM (Unverified Allergy, Unknown, 10/27/17) Subjective Awake, alert, responsive, No nausea or vomiting. Looking very weak and cachectic, + GERD, complaining about watery diarrhea, potassium: 3.0, phos: 2.3 . Objective Last Vital Signs Date Time Temp Pulse Resp B/P (MAP) Pulse Ox O2 Delivery O2 Flow Rate FiO2 02/16/19 16:00 98.7 114 28 159/86 (110) 95 02/16/19 13:05 Nasal Cannula 3 Laboratory Tests Test 02/16/19 04:45 White Blood Count 16.3 K/UL (4.8-10.8) H Red Blood Count 3.91 M/UL (4.70-6.10) L Hemoglobin 12.0 G/DL (14.2-18.0) L Hematocrit 34.8 % (42.0-52.0) L Mean Corpuscular Volume 89 FL (80-99) Mean Corpuscular Hemoglobin 30.8 PG (27.0-31.0) Mean Corpuscular Hemoglobin Concent 34.6 G/DL (32.0-36.0) Red Cell Distribution Width 12.2 % (11.6-14.8) Platelet Count 273 K/UL (150-450) Mean Platelet Volume 6.9 FL (6.5-10.1) Neutrophils (%) (Auto) 77.5 % (45.0-75.0) H Lymphocytes (%) (Auto) 16.2 % (20.0-45.0) L Monocytes (%) (Auto) 5.7 % (1.0-10.0) Eosinophils (%) (Auto) 0.3 % (0.0-3.0) Basophils (%) (Auto) 0.4 % (0.0-2.0) Prothrombin Time 10.6 SEC (9.30-11.50) Prothromb Time International Ratio 1.0 (0.9-1.1) Activated Partial Thromboplast Time 23 SEC (23-33) Sodium Level 140 MMOL/L (136-145) Potassium Level 3.0 MMOL/L (3.5-5.1) L Chloride Level 111 MMOL/L (98-107) H Carbon Dioxide Level 16 MMOL/L (21-32) L Anion Gap 13 mmol/L (5-15) Blood Urea Nitrogen 25 mg/dL (7-18) H Creatinine 0.9 MG/DL (0.55-1.30) Estimat Glomerular Filtration Rate > 60 mL/min (>60) Glucose Level 133 MG/DL (74-106) H Calcium Level 8.6 MG/DL (8.5-10.1) Phosphorus Level 2.3 MG/DL (2.5-4.9) L Magnesium Level 1.9 MG/DL (1.8-2.4) Intake and Output 02/15/19 02/16/19 19:00 07:00 Intake Total 670 ml Balance 670 ml Intake Oral 670 ml # Voids 3 3 # Bowel Movements 2 Objective General: No acute distress, awake and alert, cachectic. HEENT: NCAT, sclera anicteric, PERRL, EOMI. Neck: Supple, no significant jugular venous distention, Lungs: Good inspiratory effort,, clear to auscultation bilaterally, no Wheeze or Rales. Heart: Regular rate and rhythm, normal S1/S2, no murmurs, Abdomen: soft, nontender, nondistended. Normoactive bowel sounds Extremities: No Cyanosis , clubbing or edema. Neuro: A&O x 3, Able to move all extremities Skin: warm, no rash. Assessment/Plan Assessment/Plan 1. Generalized weakness. 2. Hypertension. 3. Hypothyroidism. 4. Rectal cancer. 5. Cerebrovascular disease. 6. HIV/AIDS. 7. Paroxysmal supraventricular tachycardia. 8. Bibasilar atelectasis 9. Hypokalemia 10. Sepsis secondary to C. difficile colitis. 11. Esophagitis Plan: KCl supplements, Kphos IV IV fluid at 75 cc/hr. Antibiotics: Vancomycin p.o, Diflucan, Flagyl IV. Monitor laboratory as well as culture. CODE STATUS full code Carlos Barragan MD Feb 16, 2019 20:02
--- NOTE | 2019-02-16 21:56 | NUR ---
NURSE NOTES: Inserted IV access left FA 22 G. Metronidazole started on left FA.
--- NOTE | 2019-02-16 23:03 | Diagnostic Imaging Report ---
APPROVED REPORT CPT Code: 30975 Present Symptoms Comments: Pain Technically difficult study. Limited visualization (patient has BLE contractures of the hip and knee). BILATERAL: Imaging reveals a patent deep venous system bilaterally. There is no evidence of thrombus within the common femoral, superficial femoral, popliteal or tibial segments. The greater saphenous veins are within normal limits. Doppler indicates normal spontaneous flow within these segments.
--- NOTE | 2019-02-16 23:30 | NUR ---
NURSE NOTES: Pt got completely changed and placed back to HOB > 45 degree. Got Repositioned.
[2019-02-17] VITALS: BP 123/70
[2019-02-17 04:00] VITALS: BP 136/79
[2019-02-17] MEDS: D5 1/2NS w/KCl 20mEq 1,000 ML IV SCH (05:17)
[2019-02-17] MEDS: metroNIDAZOLE 500mg Premix IVPB SCH ×3 (05:17→21:44)
[2019-02-17] MEDS: Metoclopramide 10mg/2ml Inj IVP PRN (05:49)
[2019-02-17] MEDS: Levothyroxine 25mcg tab ORAL SCH (05:57)
[2019-02-17] MEDS: dilTIAZem HCl 90mg tab ORAL SCH ×3 (05:58→21:42)
--- NOTE | 2019-02-17 07:15 | NUR ---
HAND-OFF: Report given to Yanet WHITEHEAD.
--- NOTE | 2019-02-17 07:16 | NUR ---
NURSE NOTES: Received patient in bed. Awake, alert, able to make needs known. Call light within reach. In no apparent distress. On room air. No shortness of breath. Contact/Bleach isolation observed. Will continue plan of care.
--- NOTE | 2019-02-17 07:43 | Pulmonology Progress Note ---
Assessment/Plan Assessment/Plan ASSESSMENT Sepsis C. difficile colitis A. fib with RVR Recurrent SVT Rectal CA HIV Hypertension Hypothyroidism History of CVA Severe protein calorie malnutrition E/lyte abnormalities ( hypo K, hypo P) s/p EGD 02/16 Veda esophagitis vs ischemic esophagitis Gastritis Duodenitis PLAN OF CARE tele C dif with first recurrence , on Vanco po rate control with Cardizem and digoxin BP stable anticoagulation as per government instructor last Echo with pEF 60% in November outpatient EP study for ablation , as recommended by cardio lipid panel stable IV fluids, K and P replaced 02/16, stable this am along with Mg ARV therapy , CD4 407 O2 HHN as needed venous duplex negative CT C/A/P noted CXR 02/17 negative, sputum cx -negative s/p 02/16 EGD with biopsy and brushing , revealed -Severe distal esophagitis, atypical, questionable severe Veda esophagitis versus ischemic esophagitis, status post biopsy and brushing. - Duodenal ulcerations. -Gastritis, status post biopsy on PPI started empirically on Fluconazole fup with biopsy results BSSE with dysphagia VSSE pending strict aspiration precaution protein supplements as per reg bottom painter TSH stable, cont current dose of levothyroxine supportive care case discussed and evaluated by supervising physician Subjective Allergies: Coded Allergies: CODEINE (Unverified Allergy, Unknown, 11/28/17) EMTRICITABINE (Verified Allergy, Unknown, anxiousness, 08/31/18) SULFAMETHOXAZOLE (Unverified Allergy, Unknown, 10/27/17) TENOFOVIR (Verified Allergy, Unknown, anxiousness, 08/31/18) TRIMETHOPRIM (Unverified Allergy, Unknown, 10/27/17) Subjective still with leukocytosis , but afebrile still diarrhea K and P replaced yesterday, 02/16, stable this am no CP, no SOB Objective Last 24 Hour Vital Signs Date Time Temp Pulse Resp B/P (MAP) Pulse Ox O2 Delivery O2 Flow Rate FiO2 02/17/19 05:58 113 136/79 02/17/19 04:00 98.4 104 20 136/79 (98) 96 02/17/19 04:00 113 02/17/19 00:04 104 02/17/19 00:00 98.2 108 21 123/70 (87) 95 02/16/19 21:30 104 154/97 02/16/19 21:00 Room Air 02/16/19 20:00 100 02/16/19 20:00 98.1 105 22 154/97 (116) 97 02/16/19 16:00 98.7 114 28 159/86 (110) 95 02/16/19 16:00 108 02/16/19 14:45 96 128/82 02/16/19 13:05 98.0 94 22 124/85 96 Nasal Cannula 3 02/16/19 12:59 99 20 122/87 95 Nasal Cannula 3 02/16/19 12:49 108 24 125/94 100 Nasal Cannula 3 02/16/19 12:39 107 24 142/88 100 Simple Mask 6 02/16/19 12:35 99 16 99 02/16/19 12:34 104 24 146/98 100 Simple Mask 6 02/16/19 12:29 98.0 100 24 134/92 100 Simple Mask 6 02/16/19 12:00 115 02/16/19 10:41 Room Air 02/16/19 09:19 105 02/16/19 08:58 105 02/16/19 08:56 98.1 105 24 152/93 (112) 94 02/16/19 08:00 93 Intake and Output 02/16/19 02/17/19 19:00 07:00 Intake Total 850 ml 1025 ml Output Total 350 ml Balance 850 ml 675 ml IV Total 850 ml 1025 ml Stool Total 350 ml # Voids 7 # Bowel Movements 5 Objective General Appearance: no acute distress, weak, chronically ill looking male HEENT: normocephalic, atraumatic, anicteric, mucous membranes moist Respiratory/Chest: lungs clear, no respiratory distress, no accessory muscle use Cardiovascular: normal rate Abdomen: normal bowel sounds, soft, non tender, rectal tube still with large output Extremities: no edema 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: alert, oriented x 3, responsive Musculoskeletal: atrophy BLE Current Medications Medications (Trade) Dose Ordered Sig/Roman Route PRN Reason Start Time Stop Time Status Last Admin Dose Admin Acetaminophen (Tylenol) 650 mg Q4H PRN ORAL fever 02/10/19 14:00 03/12/19 13:59 02/10/19 20:39 Barium Sulfate (Varibar Honey) 250 ml NOW PRN Radiology Procedure 02/14/19 13:30 02/17/19 13:24 Barium Sulfate (Varibar [place]) 230 ml NOW PRN Radiology Procedure 02/14/19 13:30 02/17/19 13:24 Barium Sulfate (Varibar [place]ud[place]) 230 ml NOW PRN Radiology Procedure 02/14/19 13:30 02/17/19 13:24 Dextrose (Dextrose 50%) 25 ml Q30M PRN IV Hypoglycemia 02/10/19 14:15 03/12/19 14:05 Dextrose (Dextrose 50%) 50 ml Q30M PRN IV hypoglycemia 02/10/19 14:15 03/12/19 14:14 Dextrose/ Electrolytes 1,000 ml @ 75 mls/hr [id number] IV 02/15/19 21:00 03/17/19 20:59 02/17/19 05:17 Digoxin (Lanoxin) 0.125 mg DAILY ORAL 02/14/19 09:00 03/16/19 08:59 02/16/19 08:58 Diltiazem HCl (Cardizem) 90 mg EVERY 8 HOURS ORAL 02/14/19 14:00 03/14/19 13:59 02/17/19 05:58 Famotidine (Pepcid) 20 mg BID ORAL 02/15/19 18:00 03/13/19 22:29 02/16/19 09:14 Fluconazole (Diflucan) 200 mg DAILY ORAL 02/17/19 09:00 02/24/19 08:59 Gabapentin (Neurontin) 600 mg THREE TIMES A DAY ORAL 02/10/19 18:00 03/12/19 17:59 02/16/19 16:57 Levothyroxine Sodium (Synthroid) 25 mcg DAILY@0630 ORAL 02/11/19 06:30 03/13/19 06:29 02/17/19 05:57 Lorazepam (Ativan 2mg/ml 1ml) 0.5 mg Q4H PRN IV For Anxiety 02/10/19 14:00 02/17/19 13:59 02/14/19 14:12 Meningococcal Polysaccharide Vacc (Menomune-A/C/Y/ W-135) 0.5 ml ONCE ONCE IM 02/13/19 18:00 02/13/19 18:01 UNV Metoclopramide HCl (Reglan) 5 mg Q6H PRN IVP Nausea & Vomiting 02/12/19 07:30 03/14/19 07:29 02/17/19 05:49 Metronidazole 100 ml @ 100 mls/hr Q8HR IVPB 02/16/19 09:30 02/23/19 09:29 02/17/19 05:17 Mirtazapine (Remeron) 15 mg BEDTIME ORAL 02/10/19 21:00 03/12/19 20:59 02/16/19 20:11 Morphine Sulfate (Morphine Sulfate) 1 mg Q4H PRN IVP For Pain 02/10/19 14:00 02/17/19 13:59 02/12/19 14:39 Paroxetine HCl (Paxil) 40 mg DAILY ORAL 02/11/19 09:00 03/13/19 08:59 02/16/19 08:59 Patient Own Medication (Patient's Own Med) 1 ea BID ORAL 02/13/19 20:00 03/15/19 19:59 02/16/19 09:13 Patient Own Medication (Patient's Own Med) 1 ea DAILY ORAL 02/13/19 20:00 03/15/19 19:59 02/16/19 09:13 Patient Own Medication (Patient's Own Med) 1 ea DAILY ORAL 02/13/19 20:00 03/15/19 19:59 02/16/19 09:13 Polyethylene Glycol (Miralax) 17 gm HSPRN PRN ORAL Constipation 02/10/19 14:00 03/12/19 13:59 Tamsulosin HCl (Flomax) 0.4 mg BID ORAL 02/10/19 18:00 03/12/19 17:59 02/16/19 08:59 Vancomycin HCl (Firvanq) 125 mg FOUR TIMES A DAY ORAL 02/13/19 13:00 02/21/19 14:00 02/16/19 20:11 Zolpidem Tartrate (Ambien) 5 mg HSPRN PRN ORAL Insomnia 02/10/19 14:00 02/17/19 13:59 Karla Mason NP Feb 17, 2019 07:43
--- NOTE | 2019-02-17 07:56 | Diagnostic Imaging Report ---
EXAM: XR Chest, 1 View CLINICAL HISTORY: COUGH TECHNIQUE: Frontal view of the chest. COMPARISON: 02/10/2019 FINDINGS: Lungs: Unremarkable. No consolidation. Pleural space: Unremarkable. No pneumothorax. Heart: Unremarkable. No cardiomegaly. Mediastinum: Unremarkable. Bones/joints: There are stable degenerative changes/spondylosis of the thoracic spine. 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 Vasculature: The aorta is tortuous. IMPRESSION: No acute findings.
[2019-02-17 08:00] VITALS: BP 128/73
[2019-02-17 08:37] LABS: BASOPHILS % (AUTO) 0.3 % (0.0-2.0); EOSINOPHILS % (AUTO) 0.2 % (0.0-3.0); HEMATOCRIT 34.4 % (42.0-52.0); HEMOGLOBIN 11.7 G/DL (14.2-18.0); MEAN CORPUSCULAR VOLUME 90 FL (80-99); MONOCYTES % (AUTO) 6.2 % (1.0-10.0); NEUTROPHILS % (AUTO) 72.3 % (45.0-75.0); PLATELET COUNT 306 K/UL (150-450); RED BLOOD COUNT 3.82 M/UL (4.70-6.10); RED CELL DISTRIBUTION WIDTH 13.1 % (11.6-14.8); WHITE BLOOD COUNT 16.2 K/UL (4.8-10.8)
--- NOTE | 2019-02-17 08:37 | General Progress Note ---
Assessment/Plan Problem List: (1) Anemia ICD Codes: D64.9 - Anemia, unspecified SNOMED: 186926362 (2) Hypothyroidism ICD Codes: E03.9 - Hypothyroidism, unspecified SNOMED: 40427761 (3) HIV (human immunodeficiency virus infection) ICD Codes: B20 - Human immunodeficiency virus [HIV] disease SNOMED: 86294156 Status: stable Assessment/Plan: s/p EGD SUMMARY OF FINDINGS: 1. Severe distal esophagitis, atypical, questionable severe Veda esophagitis versus ischemic esophagitis, status post biopsy and brushing. 2. Duodenal ulcerations. 3. Gastritis, status post biopsy. RECOMMENDATIONS: 1. Follow up pathology and treat accordingly. 2. The patient is to be on a PPI given duodenal ulceration. 3. We will start fluconazole for Veda esophagitis, pending results of the brushing and biopsy. Subjective ROS Limited/Unobtainable: Yes Allergies: Coded Allergies: CODEINE (Unverified Allergy, Unknown, 11/28/17) EMTRICITABINE (Verified Allergy, Unknown, anxiousness, 08/31/18) SULFAMETHOXAZOLE (Unverified Allergy, Unknown, 10/27/17) TENOFOVIR (Verified Allergy, Unknown, anxiousness, 08/31/18) TRIMETHOPRIM (Unverified Allergy, Unknown, 10/27/17) Objective Last 24 Hour Vital Signs Date Time Temp Pulse Resp B/P (MAP) Pulse Ox O2 Delivery O2 Flow Rate FiO2 02/17/19 05:58 113 136/79 02/17/19 04:00 98.4 104 20 136/79 (98) 96 02/17/19 04:00 113 02/17/19 00:04 104 02/17/19 00:00 98.2 108 21 123/70 (87) 95 02/16/19 21:30 104 154/97 02/16/19 21:00 Room Air 02/16/19 20:00 100 02/16/19 20:00 98.1 105 22 154/97 (116) 97 02/16/19 16:00 98.7 114 28 159/86 (110) 95 02/16/19 16:00 108 02/16/19 14:45 96 128/82 02/16/19 13:05 98.0 94 22 124/85 96 Nasal Cannula 3 02/16/19 12:59 99 20 122/87 95 Nasal Cannula 3 02/16/19 12:49 108 24 125/94 100 Nasal Cannula 3 02/16/19 12:39 107 24 142/88 100 Simple Mask 6 02/16/19 12:35 99 16 99 02/16/19 12:34 104 24 146/98 100 Simple Mask 6 02/16/19 12:29 98.0 100 24 134/92 100 Simple Mask 6 02/16/19 12:00 115 02/16/19 10:41 Room Air 02/16/19 09:19 105 02/16/19 08:58 105 02/16/19 08:56 98.1 105 24 152/93 (112) 94 Intake and Output 02/16/19 02/17/19 19:00 07:00 Intake Total 850 ml 1025 ml Output Total 350 ml Balance 850 ml 675 ml IV Total 850 ml 1025 ml Stool Total 350 ml # Voids 7 # Bowel Movements 5 Laboratory Tests 02/17/19 07:42: White Blood Count [Pending], Red Blood Count [Pending], Hemoglobin [Pending], Hematocrit [Pending], Mean Corpuscular Volume [Pending], Mean Corpuscular Hemoglobin [Pending], Mean Corpuscular Hemoglobin Concent [Pending], Red Cell Distribution Width [Pending], Platelet Count [Pending], Mean Platelet Volume [ Pending], Neutrophils (%) (Auto) [Pending], Lymphocytes (%) (Auto) [Pending], Monocytes (%) (Auto) [Pending], Eosinophils (%) (Auto) [Pending], Basophils (%) (Auto) [Pending], Sodium Level [Pending], Potassium Level [Pending], Chloride Level [Pending], Carbon Dioxide Level [Pending], Blood Urea Nitrogen [Pending], Creatinine [Pending], Estimat Glomerular Filtration Rate [Pending], Glucose Level [Pending], Calcium Level [Pending], Phosphorus Level [Pending], Magnesium Level [Pending] Height (Feet): 5 Height (Inches): 5.00 Weight (Pounds): 144 General Appearance: alert EENT: normal ENT inspection Neck: supple Cardiovascular: normal rate Respiratory/Chest: decreased breath sounds Abdomen: normal bowel sounds, non tender, soft Extremities: non-tender Dejan Germain MD Feb 17, 2019 08:37
--- NOTE | 2019-02-17 08:57 | NUR ---
NURSE NOTES: Dr. Germain at bedside.
[2019-02-17 09:15] LABS: ANION GAP 12 mmol/L (5-15); BLOOD UREA NITROGEN 19 mg/dL (7-18); CALCIUM 8.6 MG/DL (8.5-10.1); CARBON DIOXIDE 19 MMOL/L (21-32); CHLORIDE 116 MMOL/L (98-107); CREATININE 0.9 MG/DL (0.55-1.30); PHOSPHORUS 2.5 MG/DL (2.5-4.9); POTASSIUM 3.7 MMOL/L (3.5-5.1); SODIUM 147 MMOL/L (136-145)
[2019-02-17] MEDS: Vancomycin oral 125mg/2.5ml ORAL SCH ×4 (09:44→21:43)
[2019-02-17] MEDS: INTELENCE 200 MG ORAL SCH ×2 (09:45→17:29)
[2019-02-17] MEDS: Tamsulosin 0.4mg cap ORAL SCH ×2 (10:00→17:30)
[2019-02-17] MEDS: Fluconazole 100mg tab ORAL SCH (10:00)
--- NOTE | 2019-02-17 10:16 | Cardiology Progress Note ---
Assessment/Plan Status: stable Assessment/Plan Assessment/Plan Assessment/Plan 1. Atrial fibrillation, rapid ventricular response. Echocardiogram LVEF 60% Cardizem increased to 90 TID LVEF 60% Will need to start anticoagulation for elevated CHADs score 4 when cleared by Gi 2. Hypertension. -controlled 3. Recurrent supraventricular tachycardia of sudden onset and termination. Continue Cardizem Follow up EP outpatient for ablation consideration 4. Human immunodeficiency virus. 5. Generalized weakness. 6. Rectal cancer. 7. Cerebrovascular accident. Subjective Cardiovascular: Reports: no symptoms Respiratory: Reports: no symptoms Gastrointestinal/Abdominal: Reports: no symptoms Genitourinary: Reports: no symptoms Subjective Coverage for [place] No acute events, mild N/V, vitals stable Objective Last 24 Hour Vital Signs Date Time Temp Pulse Resp B/P (MAP) Pulse Ox O2 Delivery O2 Flow Rate FiO2 02/17/19 09:00 Room Air 02/17/19 08:00 97.7 96 22 128/73 (91) 96 02/17/19 07:58 98 02/17/19 05:58 113 136/79 02/17/19 04:00 98.4 104 20 136/79 (98) 96 02/17/19 04:00 113 02/17/19 00:04 104 02/17/19 00:00 98.2 108 21 123/70 (87) 95 02/16/19 21:30 104 154/97 02/16/19 21:00 Room Air 02/16/19 20:00 100 02/16/19 20:00 98.1 105 22 154/97 (116) 97 02/16/19 16:00 98.7 114 28 159/86 (110) 95 02/16/19 16:00 108 02/16/19 14:45 96 128/82 02/16/19 13:05 98.0 94 22 124/85 96 Nasal Cannula 3 02/16/19 12:59 99 20 122/87 95 Nasal Cannula 3 02/16/19 12:49 108 24 125/94 100 Nasal Cannula 3 02/16/19 12:39 107 24 142/88 100 Simple Mask 6 02/16/19 12:35 99 16 99 02/16/19 12:34 104 24 146/98 100 Simple Mask 6 02/16/19 12:29 98.0 100 24 134/92 100 Simple Mask 6 02/16/19 12:00 115 02/16/19 10:41 Room Air General Appearance: no apparent distress, alert EENT: PERRL/EOMI, normal ENT inspection, TMs normal, pharynx normal Neck: non-tender, normal alignment, supple, normal inspection Rhythm: NSR Cardiovascular: normal peripheral pulses, normal rate, regular rhythm Respiratory/Chest: chest wall non-tender, lungs clear, normal breath sounds Abdomen: normal bowel sounds, non tender, no organomegaly Extremities: normal range of motion, non-tender, normal inspection 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, no motor/sensory deficits Intake and Output 02/16/19 02/17/19 19:00 07:00 Intake Total 850 ml 1025 ml Output Total 350 ml Balance 850 ml 675 ml IV Total 850 ml 1025 ml Stool Total 350 ml # Voids 7 # Bowel Movements 5 Laboratory Tests Test 02/17/19 07:42 White Blood Count 16.2 K/UL (4.8-10.8) H Red Blood Count 3.82 M/UL (4.70-6.10) L Hemoglobin 11.7 G/DL (14.2-18.0) L Hematocrit 34.4 % (42.0-52.0) L Mean Corpuscular Volume 90 FL (80-99) Mean Corpuscular Hemoglobin 30.6 PG (27.0-31.0) Mean Corpuscular Hemoglobin Concent 34.0 G/DL (32.0-36.0) Red Cell Distribution Width 13.1 % (11.6-14.8) Platelet Count 306 K/UL (150-450) Mean Platelet Volume 7.1 FL (6.5-10.1) Neutrophils (%) (Auto) 72.3 % (45.0-75.0) Lymphocytes (%) (Auto) 21.0 % (20.0-45.0) Monocytes (%) (Auto) 6.2 % (1.0-10.0) Eosinophils (%) (Auto) 0.2 % (0.0-3.0) Basophils (%) (Auto) 0.3 % (0.0-2.0) Sodium Level 147 MMOL/L (136-145) H Potassium Level 3.7 MMOL/L (3.5-5.1) Chloride Level 116 MMOL/L (98-107) H Carbon Dioxide Level 19 MMOL/L (21-32) L Anion Gap 12 mmol/L (5-15) Blood Urea Nitrogen 19 mg/dL (7-18) H Creatinine 0.9 MG/DL (0.55-1.30) Estimat Glomerular Filtration Rate > 60 mL/min (>60) Glucose Level 123 MG/DL (74-106) H Calcium Level 8.6 MG/DL (8.5-10.1) Phosphorus Level 2.5 MG/DL (2.5-4.9) Magnesium Level 2.0 MG/DL (1.8-2.4) Price Reaves MD Feb 17, 2019 10:16
--- NOTE | 2019-02-17 11:21 | NUR ---
NURSE NOTES: Telephone report received from Karla Mason NP to change IVF to D5W with 20 meq KCL @ 75ml/hour.
--- NOTE | 2019-02-17 11:31 | Infectious Diseases Prog Note ---
Assessment/Plan Assessment/Plan Assessment: Sepsis--Cdiff colitis, 1st recurrence -CT abd/p: Sigmoid and rectal colonic wall thickening with some mucosal edema along with scattered small bowel loops with bowel wall thickening suggestive of enterocolitis. Duodenal wall thickening with associated fat stranding, which may share etiology with enterocolitis; however, correlation with lipase is recommended to exclude groove pancreatitis. Evidence of infectious/inflammatory small airways disease; patchy left basilar airspace consolidation raises possibility of developing pneumonia. Refluxing esophagus with distal esophageal wall thickening; correlation with recent endoscopy is recommended. -CXR: Bibasilar opacities likely representing subsegmental atelectasis. -u/a neg -BCx Neg -normal lipase and amylase -sp cx: normal resp thomas -stool cx neg Fever; SP Leukocytosis, increasing Esophagitis -02/16 SP EGD: esophagitis hx of Cdiff 09/2018- - failed oral vancomycin; sp tx w/ Fidaxomicin --09/06 Cdiff toxin a/b +; repeat Cdiff neg x2 -09/06 SP Colonoscopy: proctitis -stool cx: normal thomas -Giardia ag, cryptosporidium neg Hx of UTI 08/2018 -u/a wbc 10-15, shirley neg, leuk +3; ucx >100K PROTEUS MIRABILIS ( I Levo; R Amp, bactrim, Cipro, Nitro; S Ceftriaxone) HIV/AIDS- on ARV =02/19 CD4 407 (11%) -11/19 CD4 392 (17.4%) -09/2018 182 (10.1%), VL UD -11/2017 CD4 323 Rectal CA (ongoing w/u at [facility]) CVA 2005 HTN Plan: -Cont oral vancomycin #11/14 -Cont IV Flagyl #2 as patient refusing some doses of oral vancomycin -Fluconazole for esophagitis -02/14 SP IV Vancomycin, Zosyn #4 -12/01 Sp Cefepime #14, Flagyl #14 -11/22 SP IV Vancomycin #6 -11/17 SP Zosyn x1 -09/23 SP Fidaxomicin #10 -09/13/18 SP PO Vancomycin #8 -f/u cx -Monitor CBC/CMP, temperatures -CXR am Thank you for this consultation. Will continue to follow along with you. Subjective Allergies: Coded Allergies: CODEINE (Unverified Allergy, Unknown, 11/28/17) EMTRICITABINE (Verified Allergy, Unknown, anxiousness, 08/31/18) SULFAMETHOXAZOLE (Unverified Allergy, Unknown, 10/27/17) TENOFOVIR (Verified Allergy, Unknown, anxiousness, 08/31/18) TRIMETHOPRIM (Unverified Allergy, Unknown, 10/27/17) Subjective Afebrile BM x 5 Leukocytosis stable Objective Vital Signs Last 24 Hour Vital Signs Date Time Temp Pulse Resp B/P (MAP) Pulse Ox O2 Delivery O2 Flow Rate FiO2 02/17/19 09:00 Room Air 02/17/19 08:00 97.7 96 22 128/73 (91) 96 02/17/19 07:58 98 02/17/19 05:58 113 136/79 02/17/19 04:00 98.4 104 20 136/79 (98) 96 02/17/19 04:00 113 02/17/19 00:04 104 02/17/19 00:00 98.2 108 21 123/70 (87) 95 02/16/19 21:30 104 154/97 02/16/19 21:00 Room Air 02/16/19 20:00 100 02/16/19 20:00 98.1 105 22 154/97 (116) 97 02/16/19 16:00 98.7 114 28 159/86 (110) 95 02/16/19 16:00 108 02/16/19 14:45 96 128/82 02/16/19 13:05 98.0 94 22 124/85 96 Nasal Cannula 3 02/16/19 12:59 99 20 122/87 95 Nasal Cannula 3 02/16/19 12:49 108 24 125/94 100 Nasal Cannula 3 02/16/19 12:39 107 24 142/88 100 Simple Mask 6 02/16/19 12:35 99 16 99 02/16/19 12:34 104 24 146/98 100 Simple Mask 6 02/16/19 12:29 98.0 100 24 134/92 100 Simple Mask 6 02/16/19 12:00 115 Height (Feet): 5 Height (Inches): 5.00 Weight (Pounds): 144 Objective GENERAL: The patient is a thin-appearing white male, in no apparent distress. HEENT: NCAT, EOMI, CHEST: CTAB, No W CARDIOVASCULAR: Regular rhythm and rate. S1 and S2 ABDOMEN: Soft, nontender, and nondistended. Positive bowel sounds. Laboratory Tests Test 02/17/19 07:42 White Blood Count 16.2 K/UL (4.8-10.8) H Red Blood Count 3.82 M/UL (4.70-6.10) L Hemoglobin 11.7 G/DL (14.2-18.0) L Hematocrit 34.4 % (42.0-52.0) L Mean Corpuscular Volume 90 FL (80-99) Mean Corpuscular Hemoglobin 30.6 PG (27.0-31.0) Mean Corpuscular Hemoglobin Concent 34.0 G/DL (32.0-36.0) Red Cell Distribution Width 13.1 % (11.6-14.8) Platelet Count 306 K/UL (150-450) Mean Platelet Volume 7.1 FL (6.5-10.1) Neutrophils (%) (Auto) 72.3 % (45.0-75.0) Lymphocytes (%) (Auto) 21.0 % (20.0-45.0) Monocytes (%) (Auto) 6.2 % (1.0-10.0) Eosinophils (%) (Auto) 0.2 % (0.0-3.0) Basophils (%) (Auto) 0.3 % (0.0-2.0) Sodium Level 147 MMOL/L (136-145) H Potassium Level 3.7 MMOL/L (3.5-5.1) Chloride Level 116 MMOL/L (98-107) H Carbon Dioxide Level 19 MMOL/L (21-32) L Anion Gap 12 mmol/L (5-15) Blood Urea Nitrogen 19 mg/dL (7-18) H Creatinine 0.9 MG/DL (0.55-1.30) Estimat Glomerular Filtration Rate > 60 mL/min (>60) Glucose Level 123 MG/DL (74-106) H Calcium Level 8.6 MG/DL (8.5-10.1) Phosphorus Level 2.5 MG/DL (2.5-4.9) Magnesium Level 2.0 MG/DL (1.8-2.4) Current Medications Medications (Trade) Dose Ordered Sig/Roman Route PRN Reason Start Time Stop Time Status Last Admin Dose Admin Acetaminophen (Tylenol) 650 mg Q4H PRN ORAL fever 02/10/19 14:00 03/12/19 13:59 02/10/19 20:39 Barium Sulfate (Varibar Honey) 250 ml NOW PRN Radiology Procedure 02/14/19 13:30 02/17/19 13:24 Barium Sulfate (Varibar [place]) 230 ml NOW PRN Radiology Procedure 02/14/19 13:30 02/17/19 13:24 Barium Sulfate (Varibar Pudding) 230 ml NOW PRN Radiology Procedure 02/14/19 13:30 02/17/19 13:24 Dextrose (Dextrose 50%) 25 ml Q30M PRN IV Hypoglycemia 02/10/19 14:15 03/12/19 14:05 Dextrose (Dextrose 50%) 50 ml Q30M PRN IV hypoglycemia 02/10/19 14:15 03/12/19 14:14 Dextrose/ Electrolytes 1,000 ml @ 75 mls/hr [id number] IV 02/17/19 11:30 03/19/19 11:29 UNV Digoxin (Lanoxin) 0.125 mg DAILY ORAL 02/14/19 09:00 03/16/19 08:59 02/16/19 08:58 Diltiazem HCl (Cardizem) 90 mg EVERY 8 HOURS ORAL 02/14/19 14:00 03/14/19 13:59 02/17/19 05:58 Famotidine (Pepcid) 20 mg BID ORAL 02/15/19 18:00 03/13/19 22:29 02/16/19 09:14 Fluconazole (Diflucan) 200 mg DAILY ORAL 02/17/19 09:00 02/24/19 08:59 Gabapentin (Neurontin) 600 mg THREE TIMES A DAY ORAL 02/10/19 18:00 03/12/19 17:59 02/16/19 16:57 Levothyroxine Sodium (Synthroid) 25 mcg DAILY@0630 ORAL 02/11/19 06:30 03/13/19 06:29 02/17/19 05:57 Lorazepam (Ativan 2mg/ml 1ml) 0.5 mg Q4H PRN IV For Anxiety 02/10/19 14:00 02/17/19 13:59 02/14/19 14:12 Meningococcal Polysaccharide Vacc (Menomune-A/C/Y/ W-135) 0.5 ml ONCE ONCE IM 02/13/19 18:00 02/13/19 18:01 UNV Metoclopramide HCl (Reglan) 5 mg Q6H PRN IVP Nausea & Vomiting 02/12/19 07:30 03/14/19 07:29 02/17/19 05:49 Metronidazole 100 ml @ 100 mls/hr Q8HR IVPB 02/16/19 09:30 02/23/19 09:29 02/17/19 05:17 Mirtazapine (Remeron) 15 mg BEDTIME ORAL 02/10/19 21:00 03/12/19 20:59 02/16/19 20:11 Morphine Sulfate (Morphine Sulfate) 1 mg Q4H PRN IVP For Pain 02/10/19 14:00 02/17/19 13:59 02/12/19 14:39 Paroxetine HCl (Paxil) 40 mg DAILY ORAL 02/11/19 09:00 03/13/19 08:59 02/16/19 08:59 Patient Own Medication (Patient's Own Med) 1 ea BID ORAL 02/13/19 20:00 03/15/19 19:59 02/17/19 09:45 Patient Own Medication (Patient's Own Med) 1 ea DAILY ORAL 02/17/19 10:00 03/19/19 09:59 02/17/19 09:44 Patient Own Medication (Patient's Own Med) 1 ea DAILY ORAL 02/17/19 10:00 03/19/19 09:59 02/17/19 09:45 Polyethylene Glycol (Miralax) 17 gm HSPRN PRN ORAL Constipation 02/10/19 14:00 03/12/19 13:59 Tamsulosin HCl (Flomax) 0.4 mg BID ORAL 02/10/19 18:00 03/12/19 17:59 02/16/19 08:59 Vancomycin HCl (Firvanq) 125 mg FOUR TIMES A DAY ORAL 02/13/19 13:00 02/21/19 14:00 02/17/19 09:44 Zolpidem Tartrate (Ambien) 5 mg HSPRN PRN ORAL Insomnia 02/10/19 14:00 02/17/19 13:59 Price Singh MD Feb 17, 2019 11:31
[2019-02-17 12:00] VITALS: BP 114/69
[2019-02-17] MEDS: D5W w/KCl 20mEq 1,000 ML IV SCH (13:00)
--- NOTE | 2019-02-17 15:30 | NUR ---
NURSE NOTES: Assumed pt care ,report received from Yanet Luu RN.Pt awake,alert in no distress denies any c/o pain or discomfort SR on the monitor,with rectal pouch in placed draining liquid tarry stools in large amount,IV sites x2 ion tact,LAC HL and RH with IVF D5W at +20 meq KCL at 75ml/hr,skin warm and dry and intact,SR up x2 HOB elevated,bed lock in lowest position will continue with plans of care.
--- NOTE | 2019-02-17 15:30 | NUR ---
HAND-OFF: Report given to CHARLEY Gotti.
[2019-02-17 16:00] VITALS: BP 144/83
--- NOTE | 2019-02-17 19:35 | NUR ---
NURSE NOTES: HAND-OFF: Report given to Loc Shetty,pt resting in bed in no distress..
--- NOTE | 2019-02-17 19:36 | NUR ---
NURSE NOTES: Got report from Ana María WHITEHEAD. Pt in stable condition. Denies any pain. No s/s of distress or discomfort noted. Pt resting in bed comfortably. Bed in low and locked position, call light within reach, bedside table within reach. Continue to monitor.
[2019-02-17 20:00] VITALS: BP 103/63
--- NOTE | 2019-02-17 21:20 | Internal Med Progress Note ---
Subjective Physician Name Carlos Barragan Attending Physician Carlos Barragan MD Current Medications Medications (Trade) Dose Ordered Sig/Roman Route PRN Reason Start Time Stop Time Status Last Admin Dose Admin Acetaminophen (Tylenol) 650 mg Q4H PRN ORAL fever 02/10/19 14:00 03/12/19 13:59 02/10/19 20:39 Dextrose (Dextrose 50%) 25 ml Q30M PRN IV Hypoglycemia 02/10/19 14:15 03/12/19 14:05 Dextrose (Dextrose 50%) 50 ml Q30M PRN IV hypoglycemia 02/10/19 14:15 03/12/19 14:14 Dextrose/ Electrolytes 1,000 ml @ 75 mls/hr [id number] IV 02/17/19 13:00 03/19/19 12:59 02/17/19 13:00 Digoxin (Lanoxin) 0.125 mg DAILY ORAL 02/14/19 09:00 03/16/19 08:59 02/16/19 08:58 Diltiazem HCl (Cardizem) 90 mg EVERY 8 HOURS ORAL 02/14/19 14:00 03/14/19 13:59 02/17/19 14:05 Famotidine (Pepcid) 20 mg BID ORAL 02/15/19 18:00 03/13/19 22:29 02/17/19 17:30 Fluconazole (Diflucan) 200 mg DAILY ORAL 02/17/19 09:00 02/24/19 08:59 Gabapentin (Neurontin) 600 mg THREE TIMES A DAY ORAL 02/10/19 18:00 03/12/19 17:59 02/17/19 17:30 Levothyroxine Sodium (Synthroid) 25 mcg DAILY@0630 ORAL 02/11/19 06:30 03/13/19 06:29 02/17/19 05:57 Meningococcal Polysaccharide Vacc (Menomune-A/C/Y/ W-135) 0.5 ml ONCE ONCE IM 02/13/19 18:00 02/13/19 18:01 UNV Metoclopramide HCl (Reglan) 5 mg Q6H PRN IVP Nausea & Vomiting 02/12/19 07:30 03/14/19 07:29 02/17/19 05:49 Metronidazole 100 ml @ 100 mls/hr Q8HR IVPB 02/16/19 09:30 02/23/19 09:29 02/17/19 14:05 Mirtazapine (Remeron) 15 mg BEDTIME ORAL 02/10/19 21:00 03/12/19 20:59 02/16/19 20:11 Paroxetine HCl (Paxil) 40 mg DAILY ORAL 02/11/19 09:00 03/13/19 08:59 02/16/19 08:59 Patient Own Medication (Patient's Own Med) 1 ea BID ORAL 02/13/19 20:00 03/15/19 19:59 02/17/19 17:29 Patient Own Medication (Patient's Own Med) 1 ea DAILY ORAL 02/17/19 10:00 03/19/19 09:59 02/17/19 09:44 Patient Own Medication (Patient's Own Med) 1 ea DAILY ORAL 02/17/19 10:00 03/19/19 09:59 02/17/19 09:45 Polyethylene Glycol (Miralax) 17 gm HSPRN PRN ORAL Constipation 02/10/19 14:00 03/12/19 13:59 Tamsulosin HCl (Flomax) 0.4 mg BID ORAL 02/10/19 18:00 03/12/19 17:59 02/17/19 17:30 Vancomycin HCl (Firvanq) 125 mg FOUR TIMES A DAY ORAL 02/13/19 13:00 02/21/19 14:00 02/17/19 17:29 Allergies: Coded Allergies: CODEINE (Unverified Allergy, Unknown, 11/28/17) EMTRICITABINE (Verified Allergy, Unknown, anxiousness, 08/31/18) SULFAMETHOXAZOLE (Unverified Allergy, Unknown, 10/27/17) TENOFOVIR (Verified Allergy, Unknown, anxiousness, 08/31/18) TRIMETHOPRIM (Unverified Allergy, Unknown, 10/27/17) Subjective Awake, alert, responsive, No nausea or vomiting. feeling better, Less diarrhea, + Coughing, potassium: 3.7 . Objective Last Vital Signs Date Time Temp Pulse Resp B/P (MAP) Pulse Ox O2 Delivery O2 Flow Rate FiO2 02/17/19 16:00 98.6 99 22 144/83 (103) 95 02/17/19 09:00 Nasal Cannula 2.0 Laboratory Tests Test 02/17/19 07:42 White Blood Count 16.2 K/UL (4.8-10.8) H Red Blood Count 3.82 M/UL (4.70-6.10) L Hemoglobin 11.7 G/DL (14.2-18.0) L Hematocrit 34.4 % (42.0-52.0) L Mean Corpuscular Volume 90 FL (80-99) Mean Corpuscular Hemoglobin 30.6 PG (27.0-31.0) Mean Corpuscular Hemoglobin Concent 34.0 G/DL (32.0-36.0) Red Cell Distribution Width 13.1 % (11.6-14.8) Platelet Count 306 K/UL (150-450) Mean Platelet Volume 7.1 FL (6.5-10.1) Neutrophils (%) (Auto) 72.3 % (45.0-75.0) Lymphocytes (%) (Auto) 21.0 % (20.0-45.0) Monocytes (%) (Auto) 6.2 % (1.0-10.0) Eosinophils (%) (Auto) 0.2 % (0.0-3.0) Basophils (%) (Auto) 0.3 % (0.0-2.0) Sodium Level 147 MMOL/L (136-145) H Potassium Level 3.7 MMOL/L (3.5-5.1) Chloride Level 116 MMOL/L (98-107) H Carbon Dioxide Level 19 MMOL/L (21-32) L Anion Gap 12 mmol/L (5-15) Blood Urea Nitrogen 19 mg/dL (7-18) H Creatinine 0.9 MG/DL (0.55-1.30) Estimat Glomerular Filtration Rate > 60 mL/min (>60) Glucose Level 123 MG/DL (74-106) H Calcium Level 8.6 MG/DL (8.5-10.1) Phosphorus Level 2.5 MG/DL (2.5-4.9) Magnesium Level 2.0 MG/DL (1.8-2.4) Intake and Output 02/16/19 02/17/19 18:59 06:59 Intake Total 850 ml 1025 ml Output Total 350 ml Balance 850 ml 675 ml IV Total 850 ml 1025 ml Stool Total 350 ml # Voids 7 # Bowel Movements 5 Objective General: No acute distress, awake and alert, cachectic. HEENT: NCAT, sclera anicteric, PERRL, EOMI. Neck: Supple, no significant jugular venous distention, Lungs: Good inspiratory effort,, clear to auscultation bilaterally, no Wheeze or Rales. Heart: Regular rate and rhythm, normal S1/S2, no murmurs, Abdomen: soft, nontender, nondistended. Normoactive bowel sounds, rectal tube. Extremities: No Cyanosis , clubbing or edema. Neuro: A&O x 3, Able to move all extremities Skin: warm, no rash. Assessment/Plan Assessment/Plan 1. Generalized weakness. 2. Hypertension. 3. Hypothyroidism. 4. Rectal cancer. 5. Cerebrovascular disease. 6. HIV/AIDS. 7. Paroxysmal supraventricular tachycardia. 8. Bibasilar atelectasis 9. Hypokalemia 10. Sepsis secondary to C. difficile colitis. 11. Esophagitis Plan: discuss about discharge planning , consider SNF placement @ [facility]. IV fluid at 75 cc/hr. Antibiotics: Vancomycin p.o, Diflucan, Flagyl IV. Monitor laboratory as well as culture. CODE STATUS full code Carlos Barragan MD Feb 17, 2019 21:20
[2019-02-17] MEDS: Morphine Sulfate 4mg/ml Inj (IV USE ONLY) IVP PRN (23:23)
[2019-02-18] VITALS: BP 103/62
[2019-02-18] MEDS: D5W w/KCl 20mEq 1,000 ML IV SCH ×2 (01:58→14:23)
[2019-02-18] MEDS: Morphine Sulfate 4mg/ml Inj (IV USE ONLY) IVP PRN ×4 (03:50→18:41)
[2019-02-18 04:00] VITALS: BP 107/60
[2019-02-18] MEDS: dilTIAZem HCl 90mg tab ORAL SCH ×3 (05:32→22:00)
[2019-02-18] MEDS: metroNIDAZOLE 500mg Premix IVPB SCH ×3 (05:32→22:40)
[2019-02-18] MEDS: Levothyroxine 25mcg tab ORAL SCH (06:02)
--- NOTE | 2019-02-18 06:07 | General Progress Note ---
Assessment/Plan Problem List: (1) Anemia ICD Codes: D64.9 - Anemia, unspecified SNOMED: 855766760 (2) Hypothyroidism ICD Codes: E03.9 - Hypothyroidism, unspecified SNOMED: 60977472 (3) HIV (human immunodeficiency virus infection) ICD Codes: B20 - Human immunodeficiency virus [HIV] disease SNOMED: 75431029 Status: stable Assessment/Plan: s/p EGD SUMMARY OF FINDINGS: 1. Severe distal esophagitis, atypical, questionable severe Veda esophagitis versus ischemic esophagitis, status post biopsy and brushing. 2. Duodenal ulcerations. 3. Gastritis, status post biopsy. RECOMMENDATIONS: 1. Follow up pathology and treat accordingly. 2. The patient is to be on a PPI given duodenal ulceration. 3. We will start fluconazole for Veda esophagitis, pending results of the brushing and biopsy. advance to soft diet will fu Subjective ROS Limited/Unobtainable: Yes Allergies: Coded Allergies: CODEINE (Unverified Allergy, Unknown, 11/28/17) EMTRICITABINE (Verified Allergy, Unknown, anxiousness, 08/31/18) SULFAMETHOXAZOLE (Unverified Allergy, Unknown, 10/27/17) TENOFOVIR (Verified Allergy, Unknown, anxiousness, 08/31/18) TRIMETHOPRIM (Unverified Allergy, Unknown, 10/27/17) Objective Last 24 Hour Vital Signs Date Time Temp Pulse Resp B/P (MAP) Pulse Ox O2 Delivery O2 Flow Rate FiO2 02/18/19 05:32 89 107/60 02/18/19 04:21 97.9 02/18/19 04:00 97.7 89 18 107/60 (76) 97 02/18/19 04:00 91 02/18/19 00:00 93 02/18/19 00:00 97.9 95 17 103/62 (76) 98 02/17/19 21:42 96 103/63 02/17/19 21:00 Nasal Cannula 2.0 02/17/19 20:00 97.7 96 18 103/63 (76) 97 02/17/19 20:00 93 02/17/19 16:00 98.6 99 22 144/83 (103) 95 02/17/19 16:00 103 02/17/19 14:05 91 114/69 02/17/19 12:00 97.3 91 22 114/69 (84) 92 02/17/19 11:57 104 02/17/19 09:00 Nasal Cannula 2.0 02/17/19 08:00 97.7 96 22 128/73 (91) 96 02/17/19 07:58 98 Intake and Output 02/17/19 02/18/19 19:00 07:00 Intake Total 1365 ml Output Total 700 ml Balance 665 ml Intake Oral 840 ml IV Total 525 ml Stool Total 700 ml # Voids 1 Laboratory Tests 02/17/19 07:42: White Blood Count 16.2H, Red Blood Count 3.82L, Hemoglobin 11.7L, Hematocrit 34.4L, Mean Corpuscular Volume 90, Mean Corpuscular Hemoglobin 30.6, Mean Corpuscular Hemoglobin Concent 34.0, Red Cell Distribution Width 13.1, Platelet Count 306, Mean Platelet Volume 7.1, Neutrophils (%) (Auto) 72.3, Lymphocytes (% ) (Auto) 21.0, Monocytes (%) (Auto) 6.2, Eosinophils (%) (Auto) 0.2, Basophils ( %) (Auto) 0.3, Sodium Level 147H, Potassium Level 3.7, Chloride Level 116H, Carbon Dioxide Level 19L, Anion Gap 12, Blood Urea Nitrogen 19H, Creatinine 0.9 , Estimat Glomerular Filtration Rate > 60, Glucose Level 123H, Calcium Level 8.6 , Phosphorus Level 2.5, Magnesium Level 2.0 Height (Feet): 5 Height (Inches): 5.00 Weight (Pounds): 144 General Appearance: alert EENT: normal ENT inspection Neck: supple Cardiovascular: normal rate Respiratory/Chest: decreased breath sounds Abdomen: normal bowel sounds, non tender, soft Extremities: non-tender Dejan Germain MD Feb 18, 2019 06:07
--- NOTE | 2019-02-18 07:58 | NUR ---
HAND-OFF: Report given to Anamaria RN. Endorsed plan of care.
--- NOTE | 2019-02-18 07:59 | NUR ---
NURSE NOTES: Received report from John/RN, Patient is awake, A&O x4, eating breakfast on bed, on 2L nasal canula, No acute distress/SOB noted. Able to make needs know. IV site patent, no bleeding or infiltration noted. Bed in low position and locked, bed alarm is on, side rails up x3. Call light and personal belonging within reach. Will continue plan of care.
[2019-02-18 08:00] VITALS: BP 107/61
[2019-02-18] MEDS: INTELENCE 200 MG ORAL SCH ×2 (08:29→18:41)
[2019-02-18] MEDS: PARoxetine 20mg tab ORAL SCH (08:29)
[2019-02-18] MEDS: Digoxin 0.125mg tab ORAL SCH (08:30)
[2019-02-18] MEDS: Fluconazole 100mg tab ORAL SCH (08:30)
[2019-02-18] MEDS: Vancomycin oral 125mg/2.5ml ORAL SCH ×4 (08:30→22:57)
[2019-02-18] MEDS: Tamsulosin 0.4mg cap ORAL SCH ×2 (08:30→18:40)
[2019-02-18 08:42] LABS: BASOPHILS % (AUTO) 0.5 % (0.0-2.0); EOSINOPHILS % (AUTO) 0.6 % (0.0-3.0); HEMATOCRIT 28.8 % (42.0-52.0); HEMOGLOBIN 9.6 G/DL (14.2-18.0); LYMPHOCYTES % (AUTO) 24.8 % (20.0-45.0); MEAN CORPUSCULAR VOLUME 91 FL (80-99); MONOCYTES % (AUTO) 6.6 % (1.0-10.0); NEUTROPHILS % (AUTO) 67.5 % (45.0-75.0); PLATELET COUNT 195 K/UL (150-450); RED BLOOD COUNT 3.16 M/UL (4.70-6.10); RED CELL DISTRIBUTION WIDTH 13.1 % (11.6-14.8)
[2019-02-18 09:14] LABS: ANION GAP 12 mmol/L (5-15); BLOOD UREA NITROGEN 14 mg/dL (7-18); CARBON DIOXIDE 18 MMOL/L (21-32); CHLORIDE 110 MMOL/L (98-107); PHOSPHORUS 2.6 MG/DL (2.5-4.9); POTASSIUM 3.2 MMOL/L (3.5-5.1); SODIUM 140 MMOL/L (136-145)
[2019-02-18] MEDS ORDERED: Albuterol/Ipratropium 3ml neb HHN PRN (09:30)
--- NOTE | 2019-02-18 09:32 | Pulmonology Progress Note ---
Assessment/Plan Assessment/Plan ASSESSMENT Sepsis C. difficile colitis A. fib with RVR Recurrent SVT Rectal CA HIV Hypertension Hypothyroidism History of CVA Severe protein calorie malnutrition E/lyte abnormalities ( hypo K, hypo P, hypo Mg ) s/p EGD Veda esophagitis vs ischemic esophagitis gastritis duodenitis PLAN OF CARE tele C dif with first recurrence , on Vanco po and Flagyl IV ( since refusing some po vanco) rate control with Cardizem and digoxin BP stable anticoagulation as per machine operator replanter ( when cleared by GI) last Echo with pEF 60% in November outpatient EP study for ablation , as recommended by cardio lipid panel stable IV fluids, replace K and Mg this am ARV therapy , CD4 407 O2 HHN as needed venous duplex negative CT C/A/P noted CXR 02/17 negative, sputum cx -negative s/p 02/16 EGD with biopsy and brushing , revealed -Severe distal esophagitis, atypical, questionable severe Veda esophagitis versus ischemic esophagitis, status post biopsy and brushing. - Duodenal ulcerations. -Gastritis, status post biopsy on PPI started empirically on Fluconazole fup with biopsy results BSSE with dysphagia VSSE pending strict aspiration precaution protein supplements as per reg shearer helper TSH stable, cont current dose of levothyroxine supportive care case discussed and evaluated by supervising physician Subjective Allergies: Coded Allergies: CODEINE (Unverified Allergy, Unknown, 11/28/17) EMTRICITABINE (Verified Allergy, Unknown, anxiousness, 08/31/18) SULFAMETHOXAZOLE (Unverified Allergy, Unknown, 10/27/17) TENOFOVIR (Verified Allergy, Unknown, anxiousness, 08/31/18) TRIMETHOPRIM (Unverified Allergy, Unknown, 10/27/17) Subjective still with leukocytosis , trending down, afebrile still diarrhea no CP, no SOB low K and Mg this am Objective Last 24 Hour Vital Signs Date Time Temp Pulse Resp B/P (MAP) Pulse Ox O2 Delivery O2 Flow Rate FiO2 02/18/19 08:30 87 02/18/19 05:32 89 107/60 02/18/19 04:21 97.9 02/18/19 04:00 97.7 89 18 107/60 (76) 97 02/18/19 04:00 91 02/18/19 00:00 93 02/18/19 00:00 97.9 95 17 103/62 (76) 98 02/17/19 21:42 96 103/63 02/17/19 21:00 Nasal Cannula 2.0 02/17/19 20:00 97.7 96 18 103/63 (76) 97 02/17/19 20:00 93 02/17/19 16:00 98.6 99 22 144/83 (103) 95 02/17/19 16:00 103 02/17/19 14:05 91 114/69 02/17/19 12:00 97.3 91 22 114/69 (84) 92 02/17/19 11:57 104 Intake and Output 02/17/19 02/18/19 19:00 07:00 Intake Total 1365 ml Output Total 700 ml 1000 ml Balance 665 ml -1000 ml Intake Oral 840 ml IV Total 525 ml Output Urine Total 600 ml Stool Total 700 ml 400 ml # Voids 1 # Bowel Movements 3 Objective General Appearance: no acute distress, weak, chronically ill looking male HEENT: normocephalic, atraumatic, anicteric, mucous membranes moist Respiratory/Chest: lungs clear, no respiratory distress, no accessory muscle use Cardiovascular: normal rate Abdomen: normal bowel sounds, soft, non tender, rectal tube still with large output Extremities: no edema 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: alert, oriented x 3, responsive Musculoskeletal: atrophy BLE Laboratory Tests 02/18/19 06:33: White Blood Count 13.0H, Red Blood Count 3.16L, Hemoglobin 9.6L, Hematocrit 28.8L, Mean Corpuscular Volume 91, Mean Corpuscular Hemoglobin 30.3, Mean Corpuscular Hemoglobin Concent 33.2, Red Cell Distribution Width 13.1, Platelet Count 195, Mean Platelet Volume 6.5, Neutrophils (%) (Auto) 67.5, Lymphocytes (% ) (Auto) 24.8, Monocytes (%) (Auto) 6.6, Eosinophils (%) (Auto) 0.6, Basophils ( %) (Auto) 0.5, Sodium Level 140, Potassium Level 3.2L, Chloride Level 110H, Carbon Dioxide Level 18L, Anion Gap 12, Blood Urea Nitrogen 14, Creatinine 1.0, Estimat Glomerular Filtration Rate > 60, Glucose Level 101, Calcium Level 8.0L, Phosphorus Level 2.6, Magnesium Level 1.7L Current Medications Medications (Trade) Dose Ordered Sig/Roman Route PRN Reason Start Time Stop Time Status Last Admin Dose Admin Acetaminophen (Tylenol) 650 mg Q4H PRN ORAL fever 02/10/19 14:00 03/12/19 13:59 02/10/19 20:39 Albuterol/ Ipratropium (Albuterol/ Ipratropium) 3 ml Q4HRT PRN HHN sob 02/18/19 09:30 02/23/19 09:29 UNV Dextrose (Dextrose 50%) 25 ml Q30M PRN IV Hypoglycemia 02/10/19 14:15 03/12/19 14:05 Dextrose (Dextrose 50%) 50 ml Q30M PRN IV hypoglycemia 02/10/19 14:15 03/12/19 14:14 Dextrose/ Electrolytes 1,000 ml @ 75 mls/hr [id number] IV 02/17/19 13:00 03/19/19 12:59 02/18/19 01:58 Digoxin (Lanoxin) 0.125 mg DAILY ORAL 02/14/19 09:00 03/16/19 08:59 02/18/19 08:30 Diltiazem HCl (Cardizem) 90 mg EVERY 8 HOURS ORAL 02/14/19 14:00 03/14/19 13:59 02/18/19 05:32 Famotidine (Pepcid) 20 mg BID ORAL 02/15/19 18:00 03/13/19 22:29 02/18/19 08:29 Fluconazole (Diflucan) 200 mg DAILY ORAL 02/17/19 09:00 02/24/19 08:59 02/18/19 08:30 Gabapentin (Neurontin) 600 mg THREE TIMES A DAY ORAL 02/10/19 18:00 03/12/19 17:59 02/18/19 08:28 Levothyroxine Sodium (Synthroid) 25 mcg DAILY@0630 ORAL 02/11/19 06:30 03/13/19 06:29 02/18/19 06:02 Magnesium Sulfate 100 ml @ 100 mls/hr ONCE ONCE IV 02/18/19 10:30 02/18/19 11:29 UNV Meningococcal Polysaccharide Vacc (Menomune-A/C/Y/ W-135) 0.5 ml ONCE ONCE IM 02/13/19 18:00 02/13/19 18:01 UNV Metoclopramide HCl (Reglan) 5 mg Q6H PRN IVP Nausea & Vomiting 02/12/19 07:30 03/14/19 07:29 02/17/19 05:49 Metronidazole 100 ml @ 100 mls/hr Q8HR IVPB 02/16/19 09:30 02/23/19 09:29 02/18/19 05:32 Mirtazapine (Remeron) 15 mg BEDTIME ORAL 02/10/19 21:00 03/12/19 20:59 02/17/19 21:42 Morphine Sulfate (Morphine Sulfate) 4 mg Q4H PRN IVP For Pain 02/17/19 23:15 02/24/19 23:14 02/18/19 08:31 Paroxetine HCl (Paxil) 40 mg DAILY ORAL 02/11/19 09:00 03/13/19 08:59 02/18/19 08:29 Patient Own Medication (Patient's Own Med) 1 ea BID ORAL 02/13/19 20:00 03/15/19 19:59 02/18/19 08:29 Patient Own Medication (Patient's Own Med) 1 ea DAILY ORAL 02/17/19 10:00 03/19/19 09:59 02/18/19 08:29 Patient Own Medication (Patient's Own Med) 1 ea DAILY ORAL 02/17/19 10:00 03/19/19 09:59 02/18/19 08:29 Polyethylene Glycol (Miralax) 17 gm HSPRN PRN ORAL Constipation 02/10/19 14:00 03/12/19 13:59 Potassium Chloride (K-Dur) 40 meq ONCE ONCE ORAL 02/18/19 09:30 02/18/19 09:31 UNV Tamsulosin HCl (Flomax) 0.4 mg BID ORAL 02/10/19 18:00 03/12/19 17:59 02/18/19 08:30 Vancomycin HCl (Firvanq) 125 mg FOUR TIMES A DAY ORAL 02/13/19 13:00 02/21/19 14:00 02/18/19 08:30 Karla Mason NP Feb 18, 2019 09:32
--- NOTE | 2019-02-18 10:01 | Cardiology Progress Note ---
Assessment/Plan Status: stable Assessment/Plan Assessment/Plan Assessment/Plan 1. Atrial fibrillation, rapid ventricular response. Echocardiogram LVEF 60% Cardizem increased to 90 TID LVEF 60% Will need to start anticoagulation for elevated CHADs score 4 when cleared by Gi 2. Hypertension. -controlled 3. Recurrent supraventricular tachycardia of sudden onset and termination. Continue Cardizem Follow up EP outpatient for ablation consideration 4. Human immunodeficiency virus. 5. Generalized weakness. 6. Rectal cancer. 7. Cerebrovascular accident. Subjective Cardiovascular: Reports: no symptoms Respiratory: Reports: no symptoms Gastrointestinal/Abdominal: Reports: no symptoms Genitourinary: Reports: no symptoms Subjective Coverage for [place] No acute events, mild N/V, vitals stable Objective Last 24 Hour Vital Signs Date Time Temp Pulse Resp B/P (MAP) Pulse Ox O2 Delivery O2 Flow Rate FiO2 02/18/19 08:30 87 02/18/19 05:32 89 107/60 02/18/19 04:21 97.9 02/18/19 04:00 97.7 89 18 107/60 (76) 97 02/18/19 04:00 91 02/18/19 00:00 93 02/18/19 00:00 97.9 95 17 103/62 (76) 98 02/17/19 21:42 96 103/63 02/17/19 21:00 Nasal Cannula 2.0 02/17/19 20:00 97.7 96 18 103/63 (76) 97 02/17/19 20:00 93 02/17/19 16:00 98.6 99 22 144/83 (103) 95 02/17/19 16:00 103 02/17/19 14:05 91 114/69 02/17/19 12:00 97.3 91 22 114/69 (84) 92 02/17/19 11:57 104 General Appearance: no apparent distress, alert EENT: PERRL/EOMI, normal ENT inspection, TMs normal, pharynx normal Neck: non-tender, normal alignment, supple, normal inspection, no JVD Rhythm: NSR Cardiovascular: normal peripheral pulses, normal rate, regular rhythm Respiratory/Chest: chest wall non-tender, lungs clear, normal breath sounds Abdomen: normal bowel sounds, non tender, soft, no organomegaly, no mass Extremities: normal range of motion, non-tender, normal inspection Neurologic: overlay operator II-XII grossly normal, no motor/sensory deficits Intake and Output 02/17/19 02/18/19 19:00 07:00 Intake Total 1365 ml Output Total 700 ml 1000 ml Balance 665 ml -1000 ml Intake Oral 840 ml IV Total 525 ml Output Urine Total 600 ml Stool Total 700 ml 400 ml # Voids 1 # Bowel Movements 3 Laboratory Tests Test 02/18/19 06:33 White Blood Count 13.0 K/UL (4.8-10.8) H Red Blood Count 3.16 M/UL (4.70-6.10) L Hemoglobin 9.6 G/DL (14.2-18.0) L Hematocrit 28.8 % (42.0-52.0) L Mean Corpuscular Volume 91 FL (80-99) Mean Corpuscular Hemoglobin 30.3 PG (27.0-31.0) Mean Corpuscular Hemoglobin Concent 33.2 G/DL (32.0-36.0) Red Cell Distribution Width 13.1 % (11.6-14.8) Platelet Count 195 K/UL (150-450) Mean Platelet Volume 6.5 FL (6.5-10.1) Neutrophils (%) (Auto) 67.5 % (45.0-75.0) Lymphocytes (%) (Auto) 24.8 % (20.0-45.0) Monocytes (%) (Auto) 6.6 % (1.0-10.0) Eosinophils (%) (Auto) 0.6 % (0.0-3.0) Basophils (%) (Auto) 0.5 % (0.0-2.0) Sodium Level 140 MMOL/L (136-145) Potassium Level 3.2 MMOL/L (3.5-5.1) L Chloride Level 110 MMOL/L (98-107) H Carbon Dioxide Level 18 MMOL/L (21-32) L Anion Gap 12 mmol/L (5-15) Blood Urea Nitrogen 14 mg/dL (7-18) Creatinine 1.0 MG/DL (0.55-1.30) Estimat Glomerular Filtration Rate > 60 mL/min (>60) Glucose Level 101 MG/DL (74-106) Calcium Level 8.0 MG/DL (8.5-10.1) L Phosphorus Level 2.6 MG/DL (2.5-4.9) Magnesium Level 1.7 MG/DL (1.8-2.4) L Price Reaves MD Feb 18, 2019 10:01
[2019-02-18 12:00] VITALS: BP 120/56
[2019-02-18] MEDS: Guaifenesin/DM 10ml syrup ORAL PRN (14:04)
--- NOTE | 2019-02-18 14:53 | Internal Med Progress Note ---
Subjective Physician Name Carlos Barragan Attending Physician Carlos Barragan MD Current Medications Medications (Trade) Dose Ordered Sig/Roman Route PRN Reason Start Time Stop Time Status Last Admin Dose Admin Acetaminophen (Tylenol) 650 mg Q4H PRN ORAL fever 02/10/19 14:00 03/12/19 13:59 02/10/19 20:39 Albuterol/ Ipratropium (Albuterol/ Ipratropium) 3 ml Q4HRT PRN HHN sob 02/18/19 09:30 02/23/19 09:29 Dextrose (Dextrose 50%) 25 ml Q30M PRN IV Hypoglycemia 02/10/19 14:15 03/12/19 14:05 Dextrose (Dextrose 50%) 50 ml Q30M PRN IV hypoglycemia 02/10/19 14:15 03/12/19 14:14 Dextrose/ Electrolytes 1,000 ml @ 75 mls/hr [id number] IV 02/17/19 13:00 03/19/19 12:59 02/18/19 14:23 Digoxin (Lanoxin) 0.125 mg DAILY ORAL 02/14/19 09:00 03/16/19 08:59 02/18/19 08:30 Diltiazem HCl (Cardizem) 90 mg EVERY 8 HOURS ORAL 02/14/19 14:00 03/14/19 13:59 02/18/19 14:04 Famotidine (Pepcid) 20 mg BID ORAL 02/15/19 18:00 03/13/19 22:29 02/18/19 08:29 Fluconazole (Diflucan) 200 mg DAILY ORAL 02/17/19 09:00 02/24/19 08:59 02/18/19 08:30 Gabapentin (Neurontin) 600 mg THREE TIMES A DAY ORAL 02/10/19 18:00 03/12/19 17:59 02/18/19 14:04 Guaifenesin/ Dextromethorphan (Robitussin DM Syrup) 5 ml Q6H PRN ORAL For Cough 02/18/19 13:00 03/20/19 12:59 02/18/19 14:04 Levothyroxine Sodium (Synthroid) 25 mcg DAILY@0630 ORAL 02/11/19 06:30 03/13/19 06:29 02/18/19 06:02 Meningococcal Polysaccharide Vacc (Menomune-A/C/Y/ W-135) 0.5 ml ONCE ONCE IM 02/13/19 18:00 02/13/19 18:01 UNV Metoclopramide HCl (Reglan) 5 mg Q6H PRN IVP Nausea & Vomiting 02/12/19 07:30 03/14/19 07:29 02/17/19 05:49 Metronidazole 100 ml @ 100 mls/hr Q8HR IVPB 02/16/19 09:30 02/23/19 09:29 02/18/19 14:05 Mirtazapine (Remeron) 15 mg BEDTIME ORAL 02/10/19 21:00 03/12/19 20:59 02/17/19 21:42 Morphine Sulfate (Morphine Sulfate) 4 mg Q4H PRN IVP For Pain 02/17/19 23:15 02/24/19 23:14 02/18/19 14:23 Paroxetine HCl (Paxil) 40 mg DAILY ORAL 02/11/19 09:00 03/13/19 08:59 02/18/19 08:29 Patient Own Medication (Patient's Own Med) 1 ea BID ORAL 02/13/19 20:00 03/15/19 19:59 02/18/19 08:29 Patient Own Medication (Patient's Own Med) 1 ea DAILY ORAL 02/17/19 10:00 03/19/19 09:59 02/18/19 08:29 Patient Own Medication (Patient's Own Med) 1 ea DAILY ORAL 02/17/19 10:00 03/19/19 09:59 02/18/19 08:29 Polyethylene Glycol (Miralax) 17 gm HSPRN PRN ORAL Constipation 02/10/19 14:00 03/12/19 13:59 Tamsulosin HCl (Flomax) 0.4 mg BID ORAL 02/10/19 18:00 03/12/19 17:59 02/18/19 08:30 Vancomycin HCl (Firvanq) 125 mg FOUR TIMES A DAY ORAL 02/13/19 13:00 02/21/19 14:00 02/18/19 14:04 Allergies: Coded Allergies: CODEINE (Unverified Allergy, Unknown, 11/28/17) EMTRICITABINE (Verified Allergy, Unknown, anxiousness, 08/31/18) SULFAMETHOXAZOLE (Unverified Allergy, Unknown, 10/27/17) TENOFOVIR (Verified Allergy, Unknown, anxiousness, 08/31/18) TRIMETHOPRIM (Unverified Allergy, Unknown, 10/27/17) Subjective Awake, alert, responsive, No nausea or vomiting. feeling better, less Coughing, potassium: 3.4 . Objective Last Vital Signs Date Time Temp Pulse Resp B/P (MAP) Pulse Ox O2 Delivery O2 Flow Rate FiO2 02/18/19 14:04 85 120/56 02/18/19 12:00 98.1 24 92 02/18/19 09:00 Nasal Cannula 2.0 Laboratory Tests Test 02/18/19 06:33 White Blood Count 13.0 K/UL (4.8-10.8) H Red Blood Count 3.16 M/UL (4.70-6.10) L Hemoglobin 9.6 G/DL (14.2-18.0) L Hematocrit 28.8 % (42.0-52.0) L Mean Corpuscular Volume 91 FL (80-99) Mean Corpuscular Hemoglobin 30.3 PG (27.0-31.0) Mean Corpuscular Hemoglobin Concent 33.2 G/DL (32.0-36.0) Red Cell Distribution Width 13.1 % (11.6-14.8) Platelet Count 195 K/UL (150-450) Mean Platelet Volume 6.5 FL (6.5-10.1) Neutrophils (%) (Auto) 67.5 % (45.0-75.0) Lymphocytes (%) (Auto) 24.8 % (20.0-45.0) Monocytes (%) (Auto) 6.6 % (1.0-10.0) Eosinophils (%) (Auto) 0.6 % (0.0-3.0) Basophils (%) (Auto) 0.5 % (0.0-2.0) Sodium Level 140 MMOL/L (136-145) Potassium Level 3.2 MMOL/L (3.5-5.1) L Chloride Level 110 MMOL/L (98-107) H Carbon Dioxide Level 18 MMOL/L (21-32) L Anion Gap 12 mmol/L (5-15) Blood Urea Nitrogen 14 mg/dL (7-18) Creatinine 1.0 MG/DL (0.55-1.30) Estimat Glomerular Filtration Rate > 60 mL/min (>60) Glucose Level 101 MG/DL (74-106) Calcium Level 8.0 MG/DL (8.5-10.1) L Phosphorus Level 2.6 MG/DL (2.5-4.9) Magnesium Level 1.7 MG/DL (1.8-2.4) L Intake and Output 02/17/19 02/18/19 19:00 07:00 Intake Total 1365 ml Output Total 700 ml 1000 ml Balance 665 ml -1000 ml Intake Oral 840 ml IV Total 525 ml Output Urine Total 600 ml Stool Total 700 ml 400 ml # Voids 1 # Bowel Movements 3 Objective General: No acute distress, awake and alert, cachectic. HEENT: NCAT, sclera anicteric, PERRL, EOMI. Neck: Supple, no significant jugular venous distention, Lungs: Good inspiratory effort,, clear to auscultation bilaterally, no Wheeze or Rales. Heart: Regular rate and rhythm, normal S1/S2, no murmurs, Abdomen: soft, nontender, nondistended. Normoactive bowel sounds, Rectal tube. Extremities: No Cyanosis , clubbing or edema. Neuro: A&O x 3, Able to move all extremities Skin: warm, no rash. Assessment/Plan Assessment/Plan 1. Generalized weakness. 2. Hypertension. 3. Hypothyroidism. 4. Rectal cancer. 5. Cerebrovascular disease. 6. HIV/AIDS. 7. Paroxysmal supraventricular tachycardia. 8. Bibasilar atelectasis 9. Hypokalemia 10. Sepsis secondary to C. difficile colitis. 11. Esophagitis Plan: discuss about discharge planning , consider SNF placement @ Rehab center [facility]. IV fluid at 75 cc/hr. Antibiotics: Vancomycin p.o, Diflucan, Flagyl IV. Monitor laboratory as well as culture. CODE STATUS full code DC Telemetry Kcl supplements, Mg IV Carlos Barragan MD Feb 18, 2019 14:53
[2019-02-18 16:00] VITALS: BP 119/67
--- NOTE | 2019-02-18 19:30 | NUR ---
HAND-OFF: Report given to John/CHARLEY, Patient is in stable condition. Endorsed plan of care.
--- NOTE | 2019-02-18 19:31 | NUR ---
NURSE NOTES: Got report from Anamaria RN. Pt in stable condition. Denies any pain. No s/s of distress or discomfort noted. Pt resting in bed comfortably. Bed in low and locked position, call light within reach, bedside table within reach. Continue to monitor.
[2019-02-18 20:00] VITALS: BP 100/60
[2019-02-19] VITALS: BP 153/74
[2019-02-19 04:00] VITALS: BP 141/80
[2019-02-19] MEDS: D5W w/KCl 20mEq 1,000 ML IV SCH ×2 (05:09→18:43)
[2019-02-19] MEDS: Levothyroxine 25mcg tab ORAL SCH (06:05)
[2019-02-19] MEDS: metroNIDAZOLE 500mg Premix IVPB SCH ×3 (06:05→23:01)
[2019-02-19] MEDS: dilTIAZem HCl 90mg tab ORAL SCH ×3 (06:05→23:03)
--- NOTE | 2019-02-19 07:00 | NUR ---
HAND-OFF: Report given to Des WHITEHEAD. Endorsed plan of care.
--- NOTE | 2019-02-19 07:05 | NUR ---
NURSE NOTES: Received report from CHARLEY Monterroso. Pt is AAO x 3. Patient denies pain. No s/s of distress or discomfort noted. Pt resting in bed comfortably. Patient is breathing even and nonlabored on 2L NC. Bed in low and locked position, call light within reach, bedside table within reach. Set up for breakfast. Right hand 22g is intact and patent running D5W 20meq K @75ml/hr and LAC 22 gg SL is also intact and patent. Continue to monitor.
[2019-02-19 07:21] LABS: ANION GAP 10 mmol/L (5-15); BLOOD UREA NITROGEN 12 mg/dL (7-18); CALCIUM 8.4 MG/DL (8.5-10.1); CARBON DIOXIDE 19 MMOL/L (21-32); CHLORIDE 112 MMOL/L (98-107); SODIUM 141 MMOL/L (136-145)
[2019-02-19 07:29] LABS: BASOPHILS % (AUTO) 0.5 % (0.0-2.0); EOSINOPHILS % (AUTO) 0.8 % (0.0-3.0); HEMATOCRIT 28.9 % (42.0-52.0); HEMOGLOBIN 9.9 G/DL (14.2-18.0); LYMPHOCYTES % (AUTO) 19.8 % (20.0-45.0); MEAN CORPUSCULAR VOLUME 90 FL (80-99); MONOCYTES % (AUTO) 6.2 % (1.0-10.0); NEUTROPHILS % (AUTO) 72.6 % (45.0-75.0); PLATELET COUNT 186 K/UL (150-450); RED BLOOD COUNT 3.21 M/UL (4.70-6.10)
[2019-02-19 08:00] VITALS: BP 130/80
[2019-02-19] MEDS: Tamsulosin 0.4mg cap ORAL SCH ×2 (09:00→18:44)
[2019-02-19] MEDS: PARoxetine 20mg tab ORAL SCH (09:00)
[2019-02-19] MEDS: INTELENCE 200 MG ORAL SCH ×2 (09:00→18:44)
[2019-02-19] MEDS: Vancomycin oral 125mg/2.5ml ORAL SCH ×4 (09:00→23:03)
[2019-02-19] MEDS: Fluconazole 100mg tab ORAL SCH (09:00)
[2019-02-19] MEDS: Digoxin 0.125mg tab ORAL SCH (10:27)
--- NOTE | 2019-02-19 10:27 | GI Progress Note ---
Assessment/Plan Problems: (1) Veda infection ICD Codes: B37.9 - Candidiasis, unspecified SNOMED: 61092556 (2) Duodenal ulcer ICD Codes: K26.9 - Duodenal ulcer, unspecified as acute or chronic, without hemorrhage or perforation SNOMED: 04007676 (3) Anemia ICD Codes: D64.9 - Anemia, unspecified SNOMED: 744957801 Status: progressing Status Narrative Discussed with Dr. Germain. Assessment/Plan SUMMARY OF FINDINGS: 1. Severe distal esophagitis, atypical, questionable severe Veda esophagitis versus ischemic esophagitis, status post biopsy and brushing. 2. Duodenal ulcerations. 3. Gastritis, status post biopsy. RECOMMENDATIONS: 1. Follow up pathology and treat accordingly. 2. The patient is to be on a PPI given duodenal ulceration. 3. We will start fluconazole for Veda esophagitis, pending results of the brushing and biopsy. advance to soft diet will fu The patient was seen and examined at bedside and all new and available data was reviewed in the patients chart. I agree with the above findings, impression and plan. (Patient seen earlier today. Signature stamp does not reflect patient encounter time.). - Dejan Germain MD Subjective Gastrointestinal/Abdominal: Reports: no symptoms Subjective vomiting improved Objective Last 24 Hour Vital Signs Date Time Temp Pulse Resp B/P (MAP) Pulse Ox O2 Delivery O2 Flow Rate FiO2 02/19/19 08:00 97.9 103 20 130/80 (97) 94 02/19/19 06:05 96 141/80 02/19/19 04:00 97.3 96 17 141/80 (100) 95 02/19/19 04:00 90 02/19/19 00:00 86 02/19/19 00:00 98.1 67 20 153/74 (100) 95 02/18/19 23:11 98.1 02/18/19 22:00 85 100/60 02/18/19 21:00 Nasal Cannula 2.0 02/18/19 20:12 88 18 96 Room Air 21 02/18/19 20:00 99.5 85 17 100/60 (73) 95 02/18/19 20:00 87 02/18/19 16:00 98.1 86 23 119/67 (84) 95 02/18/19 16:00 95 02/18/19 14:04 85 120/56 02/18/19 12:00 85 02/18/19 12:00 98.1 82 24 120/56 (77) 92 Intake and Output 02/18/19 02/19/19 19:00 07:00 Intake Total 780 ml Output Total 370 ml Balance 780 ml -370 ml Intake Oral 480 ml IV Total 300 ml Stool Total 370 ml # Voids 3 Laboratory Tests Test 02/19/19 05:32 White Blood Count 10.0 K/UL (4.8-10.8) Red Blood Count 3.21 M/UL (4.70-6.10) L Hemoglobin 9.9 G/DL (14.2-18.0) L Hematocrit 28.9 % (42.0-52.0) L Mean Corpuscular Volume 90 FL (80-99) Mean Corpuscular Hemoglobin 30.9 PG (27.0-31.0) Mean Corpuscular Hemoglobin Concent 34.3 G/DL (32.0-36.0) Red Cell Distribution Width 13.0 % (11.6-14.8) Platelet Count 186 K/UL (150-450) Mean Platelet Volume 6.7 FL (6.5-10.1) Neutrophils (%) (Auto) 72.6 % (45.0-75.0) Lymphocytes (%) (Auto) 19.8 % (20.0-45.0) L Monocytes (%) (Auto) 6.2 % (1.0-10.0) Eosinophils (%) (Auto) 0.8 % (0.0-3.0) Basophils (%) (Auto) 0.5 % (0.0-2.0) Sodium Level 141 MMOL/L (136-145) Potassium Level 4.0 MMOL/L (3.5-5.1) Chloride Level 112 MMOL/L (98-107) H Carbon Dioxide Level 19 MMOL/L (21-32) L Anion Gap 10 mmol/L (5-15) Blood Urea Nitrogen 12 mg/dL (7-18) Creatinine 1.0 MG/DL (0.55-1.30) Estimat Glomerular Filtration Rate > 60 mL/min (>60) Glucose Level 110 MG/DL (74-106) H Calcium Level 8.4 MG/DL (8.5-10.1) L Magnesium Level 1.9 MG/DL (1.8-2.4) Height (Feet): 5 Height (Inches): 5.00 Weight (Pounds): 144 General Appearance: WD/WN, no apparent distress, alert Cardiovascular: normal rate Respiratory/Chest: normal breath sounds, no respiratory distress Abdominal Exam: normal bowel sounds, non tender, soft Extremities: non-tender Jasen Brink NP Feb 19, 2019 10:26
--- NOTE | 2019-02-19 10:30 | NUR ---
NURSE NOTES: Spoke with Dr. Rm about patient refusing most of medications in morning. Dr. Rm is aware.
[2019-02-19] MEDS: Guaifenesin/DM 10ml syrup ORAL PRN ×2 (10:39→23:08)
[2019-02-19] MEDS: Morphine Sulfate 4mg/ml Inj (IV USE ONLY) IVP PRN (10:39)
--- NOTE | 2019-02-19 10:42 | NUR ---
CASE MANAGEMENT:REVIEW 02/16/19 SI: SEPSIS. PNA. C-DIFF COLITIS 98.7 114 28 159/86 95% ON 3L/NC WBC+16.3 K-3.0 IS: EGD TODAY(+) ESOPHAGITIS VANCO PO QID IV KCL IV K-PHOS : TELEMETRY STATUS DCP: FROM [facility]
--- NOTE | 2019-02-19 10:44 | Pulmonology Progress Note ---
Assessment/Plan Problems: (1) Sepsis (2) Febrile illness, acute (3) Atrial fibrillation (4) History of rectal cancer (5) BPH (benign prostatic hyperplasia) (6) Degenerative disc disease (7) Severe protein-calorie malnutrition (8) HIV (human immunodeficiency virus infection) Assessment/Plan wbc lower not eating well continue abx check electrolytes watch the heart rate Subjective ROS Limited/Unobtainable: No Interval Events: refusing most of the meds. Allergies: Coded Allergies: CODEINE (Unverified Allergy, Unknown, 11/28/17) EMTRICITABINE (Verified Allergy, Unknown, anxiousness, 08/31/18) SULFAMETHOXAZOLE (Unverified Allergy, Unknown, 10/27/17) TENOFOVIR (Verified Allergy, Unknown, anxiousness, 08/31/18) TRIMETHOPRIM (Unverified Allergy, Unknown, 10/27/17) Objective Last 24 Hour Vital Signs Date Time Temp Pulse Resp B/P (MAP) Pulse Ox O2 Delivery O2 Flow Rate FiO2 02/19/19 10:27 103 130/80 02/19/19 10:27 103 02/19/19 08:00 97.9 103 20 130/80 (97) 94 02/19/19 06:05 96 141/80 02/19/19 04:00 97.3 96 17 141/80 (100) 95 02/19/19 04:00 90 02/19/19 00:00 86 02/19/19 00:00 98.1 67 20 153/74 (100) 95 02/18/19 23:11 98.1 02/18/19 22:00 85 100/60 02/18/19 21:00 Nasal Cannula 2.0 02/18/19 20:12 88 18 96 Room Air 21 02/18/19 20:00 99.5 85 17 100/60 (73) 95 02/18/19 20:00 87 02/18/19 16:00 98.1 86 23 119/67 (84) 95 02/18/19 16:00 95 02/18/19 14:04 85 120/56 02/18/19 12:00 85 02/18/19 12:00 98.1 82 24 120/56 (77) 92 Intake and Output 02/18/19 02/19/19 19:00 07:00 Intake Total 780 ml Output Total 370 ml Balance 780 ml -370 ml Intake Oral 480 ml IV Total 300 ml Stool Total 370 ml # Voids 3 General Appearance: cachetic HEENT: normocephalic, atraumatic Respiratory/Chest: chest wall non-tender, lungs clear Cardiovascular: normal peripheral pulses, normal rate Abdomen: normal bowel sounds, soft, non tender Genitourinary: normal external genitalia Extremities: no cyanosis 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: truss builder II-XII grossly normal Laboratory Tests 02/19/19 05:32: White Blood Count 10.0, Red Blood Count 3.21L, Hemoglobin 9.9L, Hematocrit 28.9L , Mean Corpuscular Volume 90, Mean Corpuscular Hemoglobin 30.9, Mean Corpuscular Hemoglobin Concent 34.3, Red Cell Distribution Width 13.0, Platelet Count 186, Mean Platelet Volume 6.7, Neutrophils (%) (Auto) 72.6, Lymphocytes (% ) (Auto) 19.8L, Monocytes (%) (Auto) 6.2, Eosinophils (%) (Auto) 0.8, Basophils (%) (Auto) 0.5, Sodium Level 141, Potassium Level 4.0, Chloride Level 112H, Carbon Dioxide Level 19L, Anion Gap 10, Blood Urea Nitrogen 12, Creatinine 1.0, Estimat Glomerular Filtration Rate > 60, Glucose Level 110H, Calcium Level 8.4L , Magnesium Level 1.9 Current Medications Medications (Trade) Dose Ordered Sig/Roman Route PRN Reason Start Time Stop Time Status Last Admin Dose Admin Acetaminophen (Tylenol) 650 mg Q4H PRN ORAL fever 02/10/19 14:00 03/12/19 13:59 02/18/19 22:41 Albuterol/ Ipratropium (Albuterol/ Ipratropium) 3 ml Q4HRT PRN HHN sob 02/18/19 09:30 02/23/19 09:29 Dextrose (Dextrose 50%) 25 ml Q30M PRN IV Hypoglycemia 02/10/19 14:15 03/12/19 14:05 Dextrose (Dextrose 50%) 50 ml Q30M PRN IV hypoglycemia 02/10/19 14:15 03/12/19 14:14 Dextrose/ Electrolytes 1,000 ml @ 75 mls/hr [id number] IV 02/17/19 13:00 03/19/19 12:59 02/19/19 05:09 Digoxin (Lanoxin) 0.125 mg DAILY ORAL 02/14/19 09:00 03/16/19 08:59 02/19/19 10:27 Diltiazem HCl (Cardizem) 90 mg EVERY 8 HOURS ORAL 02/14/19 14:00 03/14/19 13:59 02/19/19 10:27 Famotidine (Pepcid) 20 mg BID ORAL 02/15/19 18:00 03/13/19 22:29 02/18/19 18:40 Fluconazole (Diflucan) 200 mg DAILY ORAL 02/17/19 09:00 02/24/19 08:59 02/18/19 08:30 Gabapentin (Neurontin) 600 mg THREE TIMES A DAY ORAL 02/10/19 18:00 03/12/19 17:59 02/19/19 10:26 Guaifenesin/ Dextromethorphan (Robitussin DM Syrup) 5 ml Q6H PRN ORAL For Cough 02/18/19 13:00 03/20/19 12:59 02/19/19 10:39 Levothyroxine Sodium (Synthroid) 25 mcg DAILY@0630 ORAL 02/11/19 06:30 03/13/19 06:29 02/19/19 06:05 Meningococcal Polysaccharide Vacc (Menomune-A/C/Y/ W-135) 0.5 ml ONCE ONCE IM 02/13/19 18:00 02/13/19 18:01 UNV Metoclopramide HCl (Reglan) 5 mg Q6H PRN IVP Nausea & Vomiting 02/12/19 07:30 03/14/19 07:29 02/17/19 05:49 Metronidazole 100 ml @ 100 mls/hr Q8HR IVPB 02/16/19 09:30 02/23/19 09:29 02/19/19 06:05 Mirtazapine (Remeron) 15 mg BEDTIME ORAL 02/10/19 21:00 03/12/19 20:59 02/18/19 22:42 Morphine Sulfate (Morphine Sulfate) 4 mg Q4H PRN IVP For Pain 02/17/19 23:15 02/24/19 23:14 02/19/19 10:39 Paroxetine HCl (Paxil) 40 mg DAILY ORAL 02/11/19 09:00 03/13/19 08:59 02/18/19 08:29 Patient Own Medication (Patient's Own Med) 1 ea BID ORAL 02/13/19 20:00 03/15/19 19:59 02/18/19 18:41 Patient Own Medication (Patient's Own Med) 1 ea DAILY ORAL 02/17/19 10:00 03/19/19 09:59 02/18/19 08:29 Patient Own Medication (Patient's Own Med) 1 ea DAILY ORAL 02/17/19 10:00 03/19/19 09:59 02/18/19 08:29 Polyethylene Glycol (Miralax) 17 gm HSPRN PRN ORAL Constipation 02/10/19 14:00 03/12/19 13:59 Tamsulosin HCl (Flomax) 0.4 mg BID ORAL 02/10/19 18:00 03/12/19 17:59 02/18/19 18:40 Vancomycin HCl (Firvanq) 125 mg FOUR TIMES A DAY ORAL 02/13/19 13:00 02/21/19 14:00 02/18/19 22:57 Oliverio Rm MD Feb 19, 2019 10:44
[2019-02-19 12:00] VITALS: BP 105/63
--- NOTE | 2019-02-19 12:26 | NUR ---
CASE MANAGEMENT:REVIEW 02/17/19 SI: SEPSIS. PNA. C-DIFF COLITIS. ESOPHAGITIS 97.3 104 22 144/83 95% ON 2L/NC WBC+16.2 IS: IVF@75/HR IV FLAGYL Q8HRS DIFLUCAN PO QD PEPCID PO BID CARDIZEM PO Q8HRS DIGOXIN PO QD K-DUR PO X1 : TELEMETRY STATUS DCP: FROM [facility] 02/18/19 SI: SEPSIS. PNA. C-DIFF COLITIS. ESOPHAGITIS 99.5 104 22 100/60 95% ON 2L/NC WBC+13.0 K-3.2 CA-8.0 IS: IVF@75/HR IV FLAGYL Q8HRS DIFLUCAN PO QD PEPCID PO BID CARDIZEM PO Q8HRS DIGOXIN PO QD : TELEMETRY STATUS DCP: FROM [facility] 02/19/19 SI: SEPSIS. PNA. C-DIFF COLITIS. ESOPHAGITIS 97.9 103 20 130/80 94% ON RA IS: IV MORPHINE Q4HRS PRN IVF@75/HR IV FLAGYL Q8HRS DIFLUCAN PO QD PEPCID PO BID CARDIZEM PO Q8HRS DIGOXIN PO QD VANCOMYCIN PO QID : TELEMETRY STATUS DCP: REFER TO SNF PER MD'S ORDER PLAN: [facility]
--- NOTE | 2019-02-19 12:42 | NUR ---
DISCHARGE PLANNING FAXED CLINICALS TO [facility] ~ THEY DECLINED TO ACCEPT ~ NOT CONTRACTED WITH POSITIVE HMO REFERRED TO [facility] Addendum: 02/20/19 at 0956 by KING LARSON LVN LVN SPOKE WITH [facility] AT [facility] ~ T: [phone] ~ NO MALE BEDS AVAILABLE [facility] @ [place] ~ T: [phone] ~ NO BEDS AVAILABLE, THEY ARE ON BED LOCK
--- NOTE | 2019-02-19 13:45 | NUR ---
PT NOTE Attempted to see patient 2x today, patient with diarrhea, rectal tube not functioning properly. Des WHITEHEAD notified, will follow up tomorrow.
--- NOTE | 2019-02-19 14:33 | Cardiac Electrophysiology PN ---
Assessment/Plan Assessment/Plan 1. Atrial fibrillation, rapid ventricular response. In SR with PACs.On Cardizem 90 mg q 8 hours and Dig 0.125. Dig level 1.1. Hold off on anticoagulation at this time.EF 60% 2. Hypertension. On Cardizem. 3. Recurrent supraventricular tachycardia of sudden onset and termination in 160s. On Dig and Cardizem 4. Human immunodeficiency virus. 5. Generalized weakness. 6. Rectal cancer. 7. Cerebrovascular accident. 8. C Diff on Flagyl and [place] ORALIA RN Subjective Subjective Alert in NAD.In SR. Still has diarrhea despite iv Flagyl and po Vanco. RN at bedside. Objective Last 24 Hour Vital Signs Date Time Temp Pulse Resp B/P (MAP) Pulse Ox O2 Delivery O2 Flow Rate FiO2 02/19/19 12:00 98.2 94 20 105/63 (77) 94 02/19/19 11:09 97.9 02/19/19 10:27 103 130/80 02/19/19 10:27 103 02/19/19 09:00 Nasal Cannula 2.0 02/19/19 08:04 107 02/19/19 08:00 97.9 103 20 130/80 (97) 94 02/19/19 07:00 66 16 96 Room Air 21 02/19/19 06:05 96 141/80 02/19/19 04:00 97.3 96 17 141/80 (100) 95 02/19/19 04:00 90 02/19/19 00:00 86 02/19/19 00:00 98.1 67 20 153/74 (100) 95 02/18/19 23:11 98.1 02/18/19 22:00 85 100/60 02/18/19 21:00 Nasal Cannula 2.0 02/18/19 20:12 88 18 96 Room Air 21 02/18/19 20:00 99.5 85 17 100/60 (73) 95 02/18/19 20:00 87 02/18/19 16:00 98.1 86 23 119/67 (84) 95 02/18/19 16:00 95 Intake and Output 02/18/19 02/19/19 19:00 07:00 Intake Total 780 ml Output Total 370 ml Balance 780 ml -370 ml Intake Oral 480 ml IV Total 300 ml Stool Total 370 ml # Voids 3 Laboratory Tests Test 02/19/19 05:32 White Blood Count 10.0 K/UL (4.8-10.8) Red Blood Count 3.21 M/UL (4.70-6.10) L Hemoglobin 9.9 G/DL (14.2-18.0) L Hematocrit 28.9 % (42.0-52.0) L Mean Corpuscular Volume 90 FL (80-99) Mean Corpuscular Hemoglobin 30.9 PG (27.0-31.0) Mean Corpuscular Hemoglobin Concent 34.3 G/DL (32.0-36.0) Red Cell Distribution Width 13.0 % (11.6-14.8) Platelet Count 186 K/UL (150-450) Mean Platelet Volume 6.7 FL (6.5-10.1) Neutrophils (%) (Auto) 72.6 % (45.0-75.0) Lymphocytes (%) (Auto) 19.8 % (20.0-45.0) L Monocytes (%) (Auto) 6.2 % (1.0-10.0) Eosinophils (%) (Auto) 0.8 % (0.0-3.0) Basophils (%) (Auto) 0.5 % (0.0-2.0) Sodium Level 141 MMOL/L (136-145) Potassium Level 4.0 MMOL/L (3.5-5.1) Chloride Level 112 MMOL/L (98-107) H Carbon Dioxide Level 19 MMOL/L (21-32) L Anion Gap 10 mmol/L (5-15) Blood Urea Nitrogen 12 mg/dL (7-18) Creatinine 1.0 MG/DL (0.55-1.30) Estimat Glomerular Filtration Rate > 60 mL/min (>60) Glucose Level 110 MG/DL (74-106) H Calcium Level 8.4 MG/DL (8.5-10.1) L Magnesium Level 1.9 MG/DL (1.8-2.4) Objective HEAD AND NECK: No JVD. LUNGS: Coarse rhonchi. CARDIOVASCULAR: regular S1 and S2 with no gallop ABDOMEN: Soft. EXTREMITIES: No pitting edema. Abel Mendez MD Feb 19, 2019 14:33
--- NOTE | 2019-02-19 14:33 | Infectious Diseases Prog Note ---
Assessment/Plan Assessment/Plan Assessment: Sepsis--Cdiff colitis, 1st recurrence -02/17 CXR: No acute findings. -CT abd/p: Sigmoid and rectal colonic wall thickening with some mucosal edema along with scattered small bowel loops with bowel wall thickening suggestive of enterocolitis. Duodenal wall thickening with associated fat stranding, which may share etiology with enterocolitis; however, correlation with lipase is recommended to exclude groove pancreatitis. Evidence of infectious/inflammatory small airways disease; patchy left basilar airspace consolidation raises possibility of developing pneumonia. Refluxing esophagus with distal esophageal wall thickening; correlation with recent endoscopy is recommended. -CXR: Bibasilar opacities likely representing subsegmental atelectasis. -u/a neg -BCx Neg -normal lipase and amylase -sp cx: normal resp thomas -stool cx neg Fever; SP Leukocytosis,SP Esophagitis- r/o raisa esophitis -02/16 SP EGD: Severe distal esophagitis, atypical, questionable severe Raisa esophagitis versus ischemic esophagitis, status post biopsy and brushing.Duodenal ulcerations. Gastritis, status post biopsy. hx of Cdiff 09/2018- - failed oral vancomycin; sp tx w/ Fidaxomicin --09/06 Cdiff toxin a/b +; repeat Cdiff neg x2 -09/06 SP Colonoscopy: proctitis -stool cx: normal thomas -Giardia ag, cryptosporidium neg Hx of UTI 08/2018 -u/a wbc 10-15, shirley neg, leuk +3; ucx >100K PROTEUS MIRABILIS ( I Levo; R Amp, bactrim, Cipro, Nitro; S Ceftriaxone) HIV/AIDS- on ARV =02/19 CD4 407 (11%) -11/19 CD4 392 (17.4%) -09/2018 182 (10.1%), VL UD -11/2017 CD4 323 Rectal CA (ongoing w/u at [facility]) CVA 2005 HTN Plan: -Cont oral vancomycin #01/14 -Cont IV Flagyl #4 as patient refusing some doses of oral vancomycin -Fluconazole #4 for esophagitis pending esophageal biopsies -02/14 SP IV Vancomycin, Zosyn #4 -12/01 Sp Cefepime #14, Flagyl #14 -11/22 SP IV Vancomycin #6 -11/17 SP Zosyn x1 -09/23 SP Fidaxomicin #10 -09/13/18 SP PO Vancomycin #8 -f/u cx -Monitor CBC/CMP, temperatures Thank you for this consultation. Will continue to follow along with you. Subjective Allergies: Coded Allergies: CODEINE (Unverified Allergy, Unknown, 11/28/17) EMTRICITABINE (Verified Allergy, Unknown, anxiousness, 08/31/18) SULFAMETHOXAZOLE (Unverified Allergy, Unknown, 10/27/17) TENOFOVIR (Verified Allergy, Unknown, anxiousness, 08/31/18) TRIMETHOPRIM (Unverified Allergy, Unknown, 10/27/17) Subjective afebrile leukocytosis resolved Objective Vital Signs Last 24 Hour Vital Signs Date Time Temp Pulse Resp B/P (MAP) Pulse Ox O2 Delivery O2 Flow Rate FiO2 02/19/19 12:00 98.2 94 20 105/63 (77) 94 02/19/19 11:09 97.9 02/19/19 10:27 103 130/80 02/19/19 10:27 103 02/19/19 09:00 Nasal Cannula 2.0 02/19/19 08:04 107 02/19/19 08:00 97.9 103 20 130/80 (97) 94 02/19/19 07:00 66 16 96 Room Air 21 02/19/19 06:05 96 141/80 02/19/19 04:00 97.3 96 17 141/80 (100) 95 02/19/19 04:00 90 02/19/19 00:00 86 02/19/19 00:00 98.1 67 20 153/74 (100) 95 02/18/19 23:11 98.1 02/18/19 22:00 85 100/60 02/18/19 21:00 Nasal Cannula 2.0 02/18/19 20:12 88 18 96 Room Air 21 02/18/19 20:00 99.5 85 17 100/60 (73) 95 02/18/19 20:00 87 02/18/19 16:00 98.1 86 23 119/67 (84) 95 02/18/19 16:00 95 Height (Feet): 5 Height (Inches): 5.00 Weight (Pounds): 144 Objective GENERAL: The patient is a thin-appearing white male, in no apparent distress. HEENT: Eyes, pupils are equal and responsive to light and accommodation. Extraocular movements are intact. NECK: Supple without lymphadenopathy. CHEST: Lungs are clear to auscultation bilaterally without wheezes or rales. CARDIOVASCULAR: Regular rhythm and rate. S1 and S2 are normal without murmurs, rubs, or gallops. ABDOMEN: Soft, nontender, and nondistended. Positive bowel sounds. No evidence of hepatosplenomegaly. Currently, no rebound or guarding noted. EXTREMITIES: Negative for clubbing, cyanosis, or edema. NEUROLOGIC: Cranial nerves II through XII are grossly intact without focal deficits. Laboratory Tests Test 02/19/19 05:32 White Blood Count 10.0 K/UL (4.8-10.8) Red Blood Count 3.21 M/UL (4.70-6.10) L Hemoglobin 9.9 G/DL (14.2-18.0) L Hematocrit 28.9 % (42.0-52.0) L Mean Corpuscular Volume 90 FL (80-99) Mean Corpuscular Hemoglobin 30.9 PG (27.0-31.0) Mean Corpuscular Hemoglobin Concent 34.3 G/DL (32.0-36.0) Red Cell Distribution Width 13.0 % (11.6-14.8) Platelet Count 186 K/UL (150-450) Mean Platelet Volume 6.7 FL (6.5-10.1) Neutrophils (%) (Auto) 72.6 % (45.0-75.0) Lymphocytes (%) (Auto) 19.8 % (20.0-45.0) L Monocytes (%) (Auto) 6.2 % (1.0-10.0) Eosinophils (%) (Auto) 0.8 % (0.0-3.0) Basophils (%) (Auto) 0.5 % (0.0-2.0) Sodium Level 141 MMOL/L (136-145) Potassium Level 4.0 MMOL/L (3.5-5.1) Chloride Level 112 MMOL/L (98-107) H Carbon Dioxide Level 19 MMOL/L (21-32) L Anion Gap 10 mmol/L (5-15) Blood Urea Nitrogen 12 mg/dL (7-18) Creatinine 1.0 MG/DL (0.55-1.30) Estimat Glomerular Filtration Rate > 60 mL/min (>60) Glucose Level 110 MG/DL (74-106) H Calcium Level 8.4 MG/DL (8.5-10.1) L Magnesium Level 1.9 MG/DL (1.8-2.4) Current Medications Medications (Trade) Dose Ordered Sig/Roman Route PRN Reason Start Time Stop Time Status Last Admin Dose Admin Acetaminophen (Tylenol) 650 mg Q4H PRN ORAL fever 02/10/19 14:00 03/12/19 13:59 02/18/19 22:41 Albuterol/ Ipratropium (Albuterol/ Ipratropium) 3 ml Q4HRT PRN HHN sob 02/18/19 09:30 02/23/19 09:29 Dextrose (Dextrose 50%) 25 ml Q30M PRN IV Hypoglycemia 02/10/19 14:15 03/12/19 14:05 Dextrose (Dextrose 50%) 50 ml Q30M PRN IV hypoglycemia 02/10/19 14:15 03/12/19 14:14 Dextrose/ Electrolytes 1,000 ml @ 75 mls/hr [id number] IV 02/17/19 13:00 03/19/19 12:59 02/19/19 05:09 Digoxin (Lanoxin) 0.125 mg DAILY ORAL 02/14/19 09:00 03/16/19 08:59 02/19/19 10:27 Diltiazem HCl (Cardizem) 90 mg EVERY 8 HOURS ORAL 02/14/19 14:00 03/14/19 13:59 02/19/19 10:27 Famotidine (Pepcid) 20 mg BID ORAL 02/15/19 18:00 03/13/19 22:29 02/18/19 18:40 Fluconazole (Diflucan) 200 mg DAILY ORAL 02/17/19 09:00 02/24/19 08:59 02/18/19 08:30 Gabapentin (Neurontin) 600 mg THREE TIMES A DAY ORAL 02/10/19 18:00 03/12/19 17:59 02/19/19 10:26 Guaifenesin/ Dextromethorphan (Robitussin DM Syrup) 5 ml Q6H PRN ORAL For Cough 02/18/19 13:00 03/20/19 12:59 02/19/19 10:39 Levothyroxine Sodium (Synthroid) 25 mcg DAILY@0630 ORAL 02/11/19 06:30 03/13/19 06:29 02/19/19 06:05 Meningococcal Polysaccharide Vacc (Menomune-A/C/Y/ W-135) 0.5 ml ONCE ONCE IM 02/13/19 18:00 02/13/19 18:01 UNV Metoclopramide HCl (Reglan) 5 mg Q6H PRN IVP Nausea & Vomiting 02/12/19 07:30 03/14/19 07:29 02/17/19 05:49 Metronidazole 100 ml @ 100 mls/hr Q8HR IVPB 02/16/19 09:30 02/23/19 09:29 02/19/19 06:05 Mirtazapine (Remeron) 15 mg BEDTIME ORAL 02/10/19 21:00 03/12/19 20:59 02/18/19 22:42 Morphine Sulfate (Morphine Sulfate) 4 mg Q4H PRN IVP For Pain 02/17/19 23:15 02/24/19 23:14 02/19/19 10:39 Paroxetine HCl (Paxil) 40 mg DAILY ORAL 02/11/19 09:00 03/13/19 08:59 02/18/19 08:29 Patient Own Medication (Patient's Own Med) 1 ea BID ORAL 02/13/19 20:00 03/15/19 19:59 02/18/19 18:41 Patient Own Medication (Patient's Own Med) 1 ea DAILY ORAL 02/17/19 10:00 03/19/19 09:59 02/18/19 08:29 Patient Own Medication (Patient's Own Med) 1 ea DAILY ORAL 02/17/19 10:00 03/19/19 09:59 02/18/19 08:29 Polyethylene Glycol (Miralax) 17 gm HSPRN PRN ORAL Constipation 02/10/19 14:00 03/12/19 13:59 Tamsulosin HCl (Flomax) 0.4 mg BID ORAL 02/10/19 18:00 03/12/19 17:59 02/18/19 18:40 Vancomycin HCl (Firvanq) 125 mg FOUR TIMES A DAY ORAL 02/13/19 13:00 02/21/19 14:00 02/18/19 22:57 Miranda Cordero M.D. Feb 19, 2019 14:33
--- NOTE | 2019-02-19 15:01 | NUR ---
RD ASSESSMENT & RECOMMENDATIONS SEE CARE ACTIVITY FOR COMPLETE ASSESSMENT DAILY ESTIMATED NEEDS: Needs based on HIV, CA, possible recent wt loss/64kg 25-35 kcals/kg 8067-8155 total kcals 1-1.5 g protein/kg 64-96 g total protein 25-30 mL/kg 0570-2973 total fluid mLs NUTRITION DIAGNOSIS: * Increased kcal/pro needs R/T catabolic dx, possible wt loss as evidenced by HIV+, h/o rectal CA, w/ possible wt loss of 11#/7.3% wt loss in 3 months, pt at risk for further wt loss. * Altered GI function R/T clinical condition, stool C-diff positive as evidenced c/o N/V/D, s/p EGD w/ findings of severe distal esophagitis. CURRENT DIET: regular soft PO DIET RECOMMENDATIONS: LOW FIBER/ SOFT DIET ADDITIONAL RECOMMENDATIONS: * Calibrated bedscale wt for accurate CBW weekly wt monitoring given possible recent wt loss * Check lytes daily felipe with n/v/d, replete as needed (low K, mag) * Add probiotics- diarrhea, stool C-diff + * Ensure CLEAR TID; Ensure Enlive only as tolerated + snacks * Zofran to help alleviate N/V, to improved PO tolerance * Monitor PO intake and tolerance closely
[2019-02-19 16:00] VITALS: BP 102/65
--- NOTE | 2019-02-19 18:35 | Internal Med Progress Note ---
Subjective Date of Service: Feb 19, 2019 Physician Name Whitaker,Trey Attending Physician Carlos Barragan MD Current Medications Medications (Trade) Dose Ordered Sig/Roman Route PRN Reason Start Time Stop Time Status Last Admin Dose Admin Acetaminophen (Tylenol) 650 mg Q4H PRN ORAL fever 02/10/19 14:00 03/12/19 13:59 02/18/19 22:41 Albuterol/ Ipratropium (Albuterol/ Ipratropium) 3 ml Q4HRT PRN HHN sob 02/18/19 09:30 02/23/19 09:29 Dextrose (Dextrose 50%) 25 ml Q30M PRN IV Hypoglycemia 02/10/19 14:15 03/12/19 14:05 Dextrose (Dextrose 50%) 50 ml Q30M PRN IV hypoglycemia 02/10/19 14:15 03/12/19 14:14 Dextrose/ Electrolytes 1,000 ml @ 75 mls/hr [id number] IV 02/17/19 13:00 03/19/19 12:59 02/19/19 05:09 Digoxin (Lanoxin) 0.125 mg DAILY ORAL 02/14/19 09:00 03/16/19 08:59 02/19/19 10:27 Diltiazem HCl (Cardizem) 90 mg EVERY 8 HOURS ORAL 02/14/19 14:00 03/14/19 13:59 02/19/19 10:27 Famotidine (Pepcid) 20 mg BID ORAL 02/15/19 18:00 03/13/19 22:29 02/19/19 14:41 Fluconazole (Diflucan) 200 mg DAILY ORAL 02/17/19 09:00 02/24/19 08:59 02/18/19 08:30 Gabapentin (Neurontin) 600 mg THREE TIMES A DAY ORAL 02/10/19 18:00 03/12/19 17:59 02/19/19 14:41 Guaifenesin/ Dextromethorphan (Robitussin DM Syrup) 5 ml Q6H PRN ORAL For Cough 02/18/19 13:00 03/20/19 12:59 02/19/19 10:39 Levothyroxine Sodium (Synthroid) 25 mcg DAILY@0630 ORAL 02/11/19 06:30 03/13/19 06:29 02/19/19 06:05 Meningococcal Polysaccharide Vacc (Menomune-A/C/Y/ W-135) 0.5 ml ONCE ONCE IM 02/13/19 18:00 02/13/19 18:01 UNV Metoclopramide HCl (Reglan) 5 mg Q6H PRN IVP Nausea & Vomiting 02/12/19 07:30 03/14/19 07:29 02/17/19 05:49 Metronidazole 100 ml @ 100 mls/hr Q8HR IVPB 02/16/19 09:30 02/23/19 09:29 02/19/19 14:44 Mirtazapine (Remeron) 15 mg BEDTIME ORAL 02/10/19 21:00 03/12/19 20:59 02/18/19 22:42 Morphine Sulfate (Morphine Sulfate) 4 mg Q4H PRN IVP For Pain 02/17/19 23:15 02/24/19 23:14 02/19/19 10:39 Paroxetine HCl (Paxil) 40 mg DAILY ORAL 02/11/19 09:00 03/13/19 08:59 02/18/19 08:29 Patient Own Medication (Patient's Own Med) 1 ea BID ORAL 02/13/19 20:00 03/15/19 19:59 02/18/19 18:41 Patient Own Medication (Patient's Own Med) 1 ea DAILY ORAL 02/17/19 10:00 03/19/19 09:59 02/18/19 08:29 Patient Own Medication (Patient's Own Med) 1 ea DAILY ORAL 02/17/19 10:00 03/19/19 09:59 02/18/19 08:29 Polyethylene Glycol (Miralax) 17 gm HSPRN PRN ORAL Constipation 02/10/19 14:00 03/12/19 13:59 Tamsulosin HCl (Flomax) 0.4 mg BID ORAL 02/10/19 18:00 03/12/19 17:59 02/18/19 18:40 Vancomycin HCl (Firvanq) 125 mg FOUR TIMES A DAY ORAL 02/13/19 13:00 02/21/19 14:00 02/19/19 14:41 Allergies: Coded Allergies: CODEINE (Unverified Allergy, Unknown, 11/28/17) EMTRICITABINE (Verified Allergy, Unknown, anxiousness, 08/31/18) SULFAMETHOXAZOLE (Unverified Allergy, Unknown, 10/27/17) TENOFOVIR (Verified Allergy, Unknown, anxiousness, 08/31/18) TRIMETHOPRIM (Unverified Allergy, Unknown, 10/27/17) ROS Limited/Unobtainable: No Constitutional: Reports: no symptoms HEENT: Reports: no symptoms Cardiovascular: Reports: no symptoms Respiratory: Reports: no symptoms Gastrointestinal/Abdominal: Reports: no symptoms Genitourinary: Reports: no symptoms 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: Reports: no symptoms Subjective 68 YO M admitted with gen weakness. Cover for Int Med-Dr Barragan. Objective Last Vital Signs Date Time Temp Pulse Resp B/P (MAP) Pulse Ox O2 Delivery O2 Flow Rate FiO2 02/19/19 16:00 98.7 77 20 102/65 (77) 92 02/19/19 09:00 Nasal Cannula 2.0 02/19/19 07:00 21 Laboratory Tests Test 02/19/19 05:32 White Blood Count 10.0 K/UL (4.8-10.8) Red Blood Count 3.21 M/UL (4.70-6.10) L Hemoglobin 9.9 G/DL (14.2-18.0) L Hematocrit 28.9 % (42.0-52.0) L Mean Corpuscular Volume 90 FL (80-99) Mean Corpuscular Hemoglobin 30.9 PG (27.0-31.0) Mean Corpuscular Hemoglobin Concent 34.3 G/DL (32.0-36.0) Red Cell Distribution Width 13.0 % (11.6-14.8) Platelet Count 186 K/UL (150-450) Mean Platelet Volume 6.7 FL (6.5-10.1) Neutrophils (%) (Auto) 72.6 % (45.0-75.0) Lymphocytes (%) (Auto) 19.8 % (20.0-45.0) L Monocytes (%) (Auto) 6.2 % (1.0-10.0) Eosinophils (%) (Auto) 0.8 % (0.0-3.0) Basophils (%) (Auto) 0.5 % (0.0-2.0) Sodium Level 141 MMOL/L (136-145) Potassium Level 4.0 MMOL/L (3.5-5.1) Chloride Level 112 MMOL/L (98-107) H Carbon Dioxide Level 19 MMOL/L (21-32) L Anion Gap 10 mmol/L (5-15) Blood Urea Nitrogen 12 mg/dL (7-18) Creatinine 1.0 MG/DL (0.55-1.30) Estimat Glomerular Filtration Rate > 60 mL/min (>60) Glucose Level 110 MG/DL (74-106) H Calcium Level 8.4 MG/DL (8.5-10.1) L Magnesium Level 1.9 MG/DL (1.8-2.4) Digoxin Level 0.7 NG/ML (0.5-2.0) Intake and Output 02/18/19 02/19/19 19:00 07:00 Intake Total 780 ml Output Total 370 ml Balance 780 ml -370 ml Intake Oral 480 ml IV Total 300 ml Stool Total 370 ml # Voids 3 Objective PHYSICAL EXAMINATION: GENERAL: The patient is a thin-appearing white male, in no apparent distress. HEENT: Eyes, pupils are equal and responsive to light and accommodation. Extraocular movements are intact. NECK: Supple without lymphadenopathy. CHEST: Lungs are clear to auscultation bilaterally without wheezes or rales. CARDIOVASCULAR: Regular rhythm and rate. S1 and S2 are normal without murmurs, rubs, or gallops. ABDOMEN: Soft, nontender, and nondistended. Positive bowel sounds. No evidence of hepatosplenomegaly. Currently, no rebound or guarding noted. EXTREMITIES: Negative for clubbing, cyanosis, or edema. RECTAL/GENITAL: Not performed. NEUROLOGIC: Cranial nerves II through XII are grossly intact without focal deficits. Assessment/Plan Assessment/Plan ASSESSMENT: This is an 68-year-old white male. 1. Generalized weakness. 2. Hypertension. 3. Hypothyroidism. 4. Rectal cancer. 5. Cerebrovascular disease. 6. HIV. 7. Paroxysmal supraventricular tachycardia. 8. Bibasilar atelectasis 9. hypokalemia 10. Clostridium dificile diarrhea 11. pneumonia TREATMENT: 1. Generalized weakness. Generalized weakness may be due to deconditioning- see physical therapy note. 2. Hypertension. Continue amlodipine, losartan, and metoprolol as above. 3. Hypothyroidism. Continue Levoxyl as above. 4. Rectal cancer. The patient is followed at [facility]. 5. History of cerebrovascular accident. 6. HIV. Continue HAART as above. 7. Paroxysmal supraventricular tachycardia. Cardiology consultation is pending with Dr Mendez 8. Await CT chest 9. Replace K+ 10. CT abdomen=enterocolitis. C.Diff POSITIVE. Start vanco 11. ABX=IV flagyl and oral vanco 12. ID consult=Trey Rosario MD Feb 19, 2019 18:35
[2019-02-19 20:00] VITALS: BP 119/63
--- NOTE | 2019-02-19 20:31 | NUR ---
HAND-OFF: Report given to CHARLEY Long. patient is resting in bed.
--- NOTE | 2019-02-19 20:35 | NUR ---
NURSE NOTES: Pt is AAO x 4 Patient denies pain. No s/s of distress or discomfort noted. Pt resting in bed comfortably. Patient is breathing even and nonlabored on 2L NC. Bed in low, locked position, call light within reach, bedside table within reach. Ostomy pouch (external bag on buttocks on, draining. Right hand 22g is intact and patent running D5W 20meq K @75ml/hr and LAC 22 g SL is also intact and patent. cafeteria monitor on, 1st degree AV block, pt's normal rhythm, Continue to monitor.
[2019-02-20] VITALS (7 sets, daily range): BP systolic 105–122; BP diastolic 70–84
[2019-02-20] MEDS ORDERED: LORazepam 1mg tab ORAL PRN ×3 (00:15→09:50)
[2019-02-20] MEDS ORDERED: valACYclovir HCL 500mg tab ORAL PRN (00:15)
[2019-02-20] MEDS ORDERED: Docusate 100mg cap ORAL PRN ×2 (00:15→09:49)
[2019-02-20] MEDS ORDERED: oxyCODONE HCL/Acetaminophen 5/325mg ORAL PRN (00:15)
--- NOTE | 2019-02-20 01:20 | NUR ---
HAND-OFF: Report given to CHARLEY Gauthier.
[2019-02-20] MEDS ORDERED: Meningococcal Polysacc Vaccine IM ONE ×2 (01:30→09:00)
--- NOTE | 2019-02-20 01:30 | NUR ---
NURSE NOTES: External bowel bag changed with chief telephone operator and connected to the draining bag on patient's transfer to room 421-1.
--- NOTE | 2019-02-20 04:13 | NUR ---
NURSE NOTES: Received a report from CHARLEY Gauthier. Pt is in stable condition. Sleeping comfortably. Uses nasal cannula 2L. No c/o pain/discomfort. IV site is patent and intact. Bed in lowest position. Bed alarm is on. Call light within reach. Will continue to monitor.
--- NOTE | 2019-02-20 04:15 | NUR ---
HAND-OFF: Report given to CHARLEY England.
[2019-02-20] MEDS: Morphine Sulfate 4mg/ml Inj (IV USE ONLY) IVP PRN (05:55)
[2019-02-20] MEDS: Levothyroxine 25mcg tab ORAL SCH (05:56)
[2019-02-20] MEDS: metroNIDAZOLE 500mg Premix IVPB SCH (05:56)
[2019-02-20] MEDS: dilTIAZem HCl 90mg tab ORAL SCH ×3 (05:56→22:00)
[2019-02-20] MEDS: Guaifenesin/DM 10ml syrup ORAL PRN ×2 (06:11→16:03)
[2019-02-20 07:25] LABS: BASOPHILS % (AUTO) 0.4 % (0.0-2.0); EOSINOPHILS % (AUTO) 0.8 % (0.0-3.0); HEMATOCRIT 29.8 % (42.0-52.0); HEMOGLOBIN 10.1 G/DL (14.2-18.0); LYMPHOCYTES % (AUTO) 21.5 % (20.0-45.0); MEAN CORPUSCULAR VOLUME 90 FL (80-99); MONOCYTES % (AUTO) 6.1 % (1.0-10.0); NEUTROPHILS % (AUTO) 71.1 % (45.0-75.0); PLATELET COUNT 221 K/UL (150-450); RED CELL DISTRIBUTION WIDTH 13.4 % (11.6-14.8); WHITE BLOOD COUNT 12.7 K/UL (4.8-10.8)
[2019-02-20 07:30] LABS: ANION GAP 10 mmol/L (5-15); BLOOD UREA NITROGEN 9 mg/dL (7-18); CALCIUM 8.6 MG/DL (8.5-10.1); CARBON DIOXIDE 20 MMOL/L (21-32); CHLORIDE 107 MMOL/L (98-107); SODIUM 137 MMOL/L (136-145)
--- NOTE | 2019-02-20 07:34 | NUR ---
HAND-OFF: Report given to CHARLEY Newton.
--- NOTE | 2019-02-20 08:12 | NUR ---
NURSE NOTES: received report from CHARLEY England. patient in bed. alert. oriented. verbally responsive. no respiratory distress noted with 2l/min via NC no pain at this time. IV on RH22 running d5w 20meq kcl @75, LAC 20g saline lock intact. contact isolation. PPE at all times. fall risk. call light within reach. bed in the lowest position. will continue to provide plan of care.
[2019-02-20] MEDS: Metoclopramide 10mg/2ml Inj IVP PRN (08:50)
[2019-02-20] MEDS ORDERED: Lyrica 75mg cap ORAL SCH (09:00)
[2019-02-20] MEDS ORDERED: Vitamin D 1000 IU Tab ORAL SCH (09:00)
[2019-02-20] MEDS ORDERED: Losartan 50mg tab ORAL SCH (09:00)
[2019-02-20] MEDS ORDERED: Meloxicam 15 MG TAB ORAL SCH (09:00)
[2019-02-20] MEDS ORDERED: Aspirin EC 81mg tab ORAL SCH (09:00)
--- NOTE | 2019-02-20 09:45 | NUR ---
PT WEEKLY PROGRESS NOTE Patient currently being seen by PT for ther ex and therapeutic activities to improve strength, bed mobility and transfers. Patient currently requires max/dependent assist for mobility tasks and is unable to ambulate, patient limited by generalized weakness and bilateral LE pain. Patient is motivated however his level of participation fluctuates depending on his level of pain. Patient will benefit from continued skilled PT intervention to address strength, endurance and functional mobility.
[2019-02-20] MEDS: D5W w/KCl 20mEq 1,000 ML IV SCH ×3 (09:47→23:07)
[2019-02-20] MEDS ORDERED: Metoclopramide 10mg/2ml Inj IVP PRN (09:51)
[2019-02-20] MEDS ORDERED: Morphine Sulfate 4mg/ml Inj (IV USE ONLY) IVP PRN (09:52)
--- NOTE | 2019-02-20 10:31 | GI Progress Note ---
Assessment/Plan Problems: (1) Veda infection ICD Codes: B37.9 - Candidiasis, unspecified SNOMED: 64276338 (2) Duodenal ulcer ICD Codes: K26.9 - Duodenal ulcer, unspecified as acute or chronic, without hemorrhage or perforation SNOMED: 03974256 (3) Anemia ICD Codes: D64.9 - Anemia, unspecified SNOMED: 230901193 Status: stable, progressing Status Narrative Discussed with Dr. Germain. Assessment/Plan SUMMARY OF FINDINGS: 1. Severe distal esophagitis, atypical, questionable severe Veda esophagitis versus ischemic esophagitis, status post biopsy and brushing. 2. Duodenal ulcerations. 3. Gastritis, status post biopsy. RECOMMENDATIONS: 1. Follow up pathology and treat accordingly. 2. The patient is to be on a PPI given duodenal ulceration. 3. We will start fluconazole for Veda esophagitis, pending results of the brushing and biopsy. advance to soft diet follow labs dc planning The patient was seen and examined at bedside and all new and available data was reviewed in the patients chart. I agree with the above findings, impression and plan. (Patient seen earlier today. Signature stamp does not reflect patient encounter time.). - Dejan Germain MD Subjective Subjective tolerating diet no report N/V Objective Last 24 Hour Vital Signs Date Time Temp Pulse Resp B/P (MAP) Pulse Ox O2 Delivery O2 Flow Rate FiO2 02/20/19 09:37 72 16 97 Room Air 21 02/20/19 08:00 98.0 93 18 118/75 (89) 97 02/20/19 06:25 97.9 02/20/19 05:56 100 105/70 02/20/19 04:00 97.9 100 18 105/70 (82) 96 02/20/19 01:29 98.6 68 19 114/76 (89) 96 02/20/19 00:19 99 02/20/19 00:10 98.4 94 20 112/72 (85) 96 02/19/19 23:03 93 110/67 02/19/19 21:00 Nasal Cannula 2.0 02/19/19 20:09 71 16 95 Room Air 21 02/19/19 20:00 99.0 99 20 119/63 (81) 96 02/19/19 20:00 83 02/19/19 16:00 98.7 77 20 102/65 (77) 92 02/19/19 15:39 74 02/19/19 12:00 98.2 94 20 105/63 (77) 94 02/19/19 11:47 89 Intake and Output 02/19/19 02/20/19 19:00 07:00 Intake Total 325 ml 325 ml Balance 325 ml 325 ml Intake Oral 250 ml IV Total 75 ml 325 ml # Voids 3 3 # Bowel Movements 2 1 Laboratory Tests Test 02/20/19 05:34 White Blood Count 12.7 K/UL (4.8-10.8) H Red Blood Count 3.30 M/UL (4.70-6.10) L Hemoglobin 10.1 G/DL (14.2-18.0) L Hematocrit 29.8 % (42.0-52.0) L Mean Corpuscular Volume 90 FL (80-99) Mean Corpuscular Hemoglobin 30.5 PG (27.0-31.0) Mean Corpuscular Hemoglobin Concent 33.8 G/DL (32.0-36.0) Red Cell Distribution Width 13.4 % (11.6-14.8) Platelet Count 221 K/UL (150-450) Mean Platelet Volume 6.7 FL (6.5-10.1) Neutrophils (%) (Auto) 71.1 % (45.0-75.0) Lymphocytes (%) (Auto) 21.5 % (20.0-45.0) Monocytes (%) (Auto) 6.1 % (1.0-10.0) Eosinophils (%) (Auto) 0.8 % (0.0-3.0) Basophils (%) (Auto) 0.4 % (0.0-2.0) Sodium Level 137 MMOL/L (136-145) Potassium Level 4.0 MMOL/L (3.5-5.1) Chloride Level 107 MMOL/L (98-107) Carbon Dioxide Level 20 MMOL/L (21-32) L Anion Gap 10 mmol/L (5-15) Blood Urea Nitrogen 9 mg/dL (7-18) Creatinine 1.0 MG/DL (0.55-1.30) Estimat Glomerular Filtration Rate > 60 mL/min (>60) Glucose Level 101 MG/DL (74-106) Calcium Level 8.6 MG/DL (8.5-10.1) Height (Feet): 5 Height (Inches): 5.00 Weight (Pounds): 144 General Appearance: WD/WN, no apparent distress, alert Cardiovascular: normal rate Respiratory/Chest: normal breath sounds, no respiratory distress Abdominal Exam: normal bowel sounds, non tender, soft Extremities: normal range of motion, non-tender Jasen Brink NP Feb 20, 2019 10:31
--- NOTE | 2019-02-20 11:40 | NUR ---
CASE MANAGEMENT:REVIEW 02/20/19 SI: SEPSIS. PNA. C-DIFF COLITIS. ESOPHAGITIS 98.0 93 18 118/75 97% ON RA WBC+12.7 IS: IV FLAGYL Q8HRS VANCOMYCIN PO QID DIFLUCAN PO QD ASA PO QD DIGOXIN PO QD COZAAR PO QD MOBIC PO QD PAXIL PO QD : NOW ON MED/SURG UNIT 4 [facility] DCP: REFER TO SNF PER MD'S ORDER
--- NOTE | 2019-02-20 11:46 | Infectious Diseases Prog Note ---
Assessment/Plan Assessment/Plan Assessment: Sepsis--Cdiff colitis, 1st recurrence -02/17 CXR: No acute findings. -CT abd/p: Sigmoid and rectal colonic wall thickening with some mucosal edema along with scattered small bowel loops with bowel wall thickening suggestive of enterocolitis. Duodenal wall thickening with associated fat stranding, which may share etiology with enterocolitis; however, correlation with lipase is recommended to exclude groove pancreatitis. Evidence of infectious/inflammatory small airways disease; patchy left basilar airspace consolidation raises possibility of developing pneumonia. Refluxing esophagus with distal esophageal wall thickening; correlation with recent endoscopy is recommended. -CXR: Bibasilar opacities likely representing subsegmental atelectasis. -u/a neg -BCx Neg -normal lipase and amylase -sp cx: normal resp thomas -stool cx neg Fever; SP Leukocytosis,SP Esophagitis- r/o raisa esophitis -02/16 SP EGD: Severe distal esophagitis, atypical, questionable severe Raisa esophagitis versus ischemic esophagitis, status post biopsy and brushing.Duodenal ulcerations. Gastritis, status post biopsy. hx of Cdiff 09/2018- - failed oral vancomycin; sp tx w/ Fidaxomicin --09/06 Cdiff toxin a/b +; repeat Cdiff neg x2 -09/06 SP Colonoscopy: proctitis -stool cx: normal thomas -Giardia ag, cryptosporidium neg Hx of UTI 08/2018 -u/a wbc 10-15, shirley neg, leuk +3; ucx >100K PROTEUS MIRABILIS ( I Levo; R Amp, bactrim, Cipro, Nitro; S Ceftriaxone) HIV/AIDS- on ARV =02/19 CD4 407 (11%) -11/19 CD4 392 (17.4%) -09/2018 182 (10.1%), VL UD -11/2017 CD4 323 Rectal CA (ongoing w/u at [facility]) CVA 2005 HTN Plan: -Cont oral vancomycin #02/14 -Cont IV Flagyl #5 as patient refusing some doses of oral vancomycin -Fluconazole #5 for esophagitis pending esophageal biopsies -02/14 SP IV Vancomycin, Zosyn #4 -12/01 Sp Cefepime #14, Flagyl #14 -11/22 SP IV Vancomycin #6 -11/17 SP Zosyn x1 -09/23 SP Fidaxomicin #10 -09/13/18 SP PO Vancomycin #8 -f/u cx -Monitor CBC/CMP, temperatures Thank you for this consultation. Will continue to follow along with you. Subjective Allergies: Coded Allergies: CODEINE (Unverified Allergy, Unknown, 11/28/17) EMTRICITABINE (Verified Allergy, Unknown, anxiousness, 08/31/18) SULFAMETHOXAZOLE (Unverified Allergy, Unknown, 10/27/17) TENOFOVIR (Verified Allergy, Unknown, anxiousness, 08/31/18) TRIMETHOPRIM (Unverified Allergy, Unknown, 10/27/17) Subjective afebrile mild leukocytosis Objective Vital Signs Last 24 Hour Vital Signs Date Time Temp Pulse Resp B/P (MAP) Pulse Ox O2 Delivery O2 Flow Rate FiO2 02/20/19 09:37 72 16 97 Room Air 21 02/20/19 08:00 98.0 93 18 118/75 (89) 97 02/20/19 06:25 97.9 02/20/19 05:56 100 105/70 02/20/19 04:00 97.9 100 18 105/70 (82) 96 02/20/19 01:29 98.6 68 19 114/76 (89) 96 02/20/19 00:19 99 02/20/19 00:10 98.4 94 20 112/72 (85) 96 02/19/19 23:03 93 110/67 02/19/19 21:00 Nasal Cannula 2.0 02/19/19 20:09 71 16 95 Room Air 21 02/19/19 20:00 99.0 99 20 119/63 (81) 96 02/19/19 20:00 83 02/19/19 16:00 98.7 77 20 102/65 (77) 92 02/19/19 15:39 74 02/19/19 12:00 98.2 94 20 105/63 (77) 94 02/19/19 11:47 89 Height (Feet): 5 Height (Inches): 5.00 Weight (Pounds): 144 Objective GENERAL: The patient is a thin-appearing white male, in no apparent distress. HEENT: Eyes, pupils are equal and responsive to light and accommodation. Extraocular movements are intact. NECK: Supple without lymphadenopathy. CHEST: Lungs are clear to auscultation bilaterally without wheezes or rales. CARDIOVASCULAR: Regular rhythm and rate. S1 and S2 are normal without murmurs, rubs, or gallops. ABDOMEN: Soft, nontender, and nondistended. Positive bowel sounds. No evidence of hepatosplenomegaly. Currently, no rebound or guarding noted. EXTREMITIES: Negative for clubbing, cyanosis, or edema. NEUROLOGIC: Cranial nerves II through XII are grossly intact without focal deficits. Laboratory Tests Test 02/20/19 05:34 White Blood Count 12.7 K/UL (4.8-10.8) H Red Blood Count 3.30 M/UL (4.70-6.10) L Hemoglobin 10.1 G/DL (14.2-18.0) L Hematocrit 29.8 % (42.0-52.0) L Mean Corpuscular Volume 90 FL (80-99) Mean Corpuscular Hemoglobin 30.5 PG (27.0-31.0) Mean Corpuscular Hemoglobin Concent 33.8 G/DL (32.0-36.0) Red Cell Distribution Width 13.4 % (11.6-14.8) Platelet Count 221 K/UL (150-450) Mean Platelet Volume 6.7 FL (6.5-10.1) Neutrophils (%) (Auto) 71.1 % (45.0-75.0) Lymphocytes (%) (Auto) 21.5 % (20.0-45.0) Monocytes (%) (Auto) 6.1 % (1.0-10.0) Eosinophils (%) (Auto) 0.8 % (0.0-3.0) Basophils (%) (Auto) 0.4 % (0.0-2.0) Sodium Level 137 MMOL/L (136-145) Potassium Level 4.0 MMOL/L (3.5-5.1) Chloride Level 107 MMOL/L (98-107) Carbon Dioxide Level 20 MMOL/L (21-32) L Anion Gap 10 mmol/L (5-15) Blood Urea Nitrogen 9 mg/dL (7-18) Creatinine 1.0 MG/DL (0.55-1.30) Estimat Glomerular Filtration Rate > 60 mL/min (>60) Glucose Level 101 MG/DL (74-106) Calcium Level 8.6 MG/DL (8.5-10.1) Current Medications Medications (Trade) Dose Ordered Sig/Roman Route PRN Reason Start Time Stop Time Status Last Admin Dose Admin Acetaminophen (Tylenol) 650 mg Q4H PRN ORAL fever 02/20/19 09:48 03/22/19 09:47 Albuterol/ Ipratropium (Albuterol/ Ipratropium) 3 ml Q4HRT PRN HHN sob 02/20/19 09:49 02/25/19 09:48 Aspirin (Ecotrin) 81 mg DAILY ORAL 02/21/19 09:00 03/22/19 08:59 Baclofen (Lioresal) 10 mg THREE TIMES A DAY ORAL 02/20/19 13:00 03/22/19 08:59 Dextrose (Dextrose 50%) 25 ml Q30M PRN IV Hypoglycemia 02/20/19 09:45 03/12/19 14:05 Dextrose (Dextrose 50%) 50 ml Q30M PRN IV hypoglycemia 02/20/19 09:45 03/12/19 14:14 Dextrose/ Electrolytes 1,000 ml @ 75 mls/hr [id number] IV 02/20/19 09:47 03/22/19 09:46 Digoxin (Lanoxin) 0.125 mg DAILY ORAL 02/21/19 09:00 03/16/19 08:59 Diltiazem HCl (Cardizem) 90 mg EVERY 8 HOURS ORAL 02/20/19 14:00 03/14/19 13:59 Docusate Sodium (Colace) 100 mg BIDPRN PRN ORAL Constipation 02/20/19 09:49 03/22/19 09:48 Famotidine (Pepcid) 20 mg BID ORAL 02/20/19 18:00 03/13/19 22:29 Fluconazole (Diflucan) 200 mg DAILY ORAL 02/21/19 09:00 02/24/19 08:59 Gabapentin (Neurontin) 600 mg THREE TIMES A DAY ORAL 02/20/19 13:00 03/12/19 17:59 Guaifenesin/ Dextromethorphan (Robitussin DM Syrup) 5 ml Q6H PRN ORAL For Cough 02/20/19 09:50 03/22/19 09:49 Ketoconazole (Nizoral 2% Cream) 1 applic BID TOPIC 02/20/19 18:00 03/22/19 08:59 Levothyroxine Sodium (Synthroid) 25 mcg DAILY@0630 ORAL 02/21/19 06:30 03/13/19 06:29 Lorazepam (Ativan) 1 mg BIDPRN PRN ORAL anxiety 02/20/19 09:50 02/27/19 09:49 Losartan Potassium (Cozaar) 50 mg DAILY ORAL 02/21/19 09:00 03/22/19 08:59 Meloxicam (Mobic) 15 mg DAILY ORAL 02/21/19 09:00 03/22/19 08:59 Metoclopramide HCl (Reglan) 5 mg Q6H PRN IVP Nausea & Vomiting 02/20/19 09:51 03/22/19 09:50 Metronidazole 100 ml @ 100 mls/hr Q8HR IVPB 02/20/19 14:00 02/23/19 09:29 Mirtazapine (Remeron) 7.5 mg BEDTIME PRN ORAL SLEEP 02/20/19 21:00 03/22/19 00:14 Mirtazapine (Remeron) 15 mg BEDTIME ORAL 02/20/19 21:00 03/12/19 20:59 Morphine Sulfate (Morphine Sulfate) 4 mg Q4H PRN IVP For Pain 02/20/19 09:52 02/27/19 09:51 Oxycodone/ Acetaminophen (Percocet 10/325) 1 tab BID ORAL 02/20/19 18:00 02/27/19 08:59 Paroxetine HCl (Paxil) 40 mg DAILY ORAL 02/21/19 09:00 03/13/19 08:59 Patient Own Medication (Patient's Own Med) 1 ea BID ORAL 02/20/19 10:00 03/22/19 09:59 Patient Own Medication (Patient's Own Med) 1 ea DAILY ORAL 02/20/19 10:00 03/22/19 09:59 Patient Own Medication (Patient's Own Med) 1 ea DAILY ORAL 02/20/19 10:00 03/22/19 09:59 Polyethylene Glycol (Miralax) 17 gm HSPRN PRN ORAL Constipation 02/20/19 14:00 03/12/19 13:59 Pregabalin (Lyrica) 150 mg BID ORAL 02/20/19 18:00 03/22/19 08:59 Tamsulosin HCl (Flomax) 0.4 mg BID ORAL 02/20/19 18:00 03/12/19 17:59 Valacyclovir HCl (Valtrex) 1,000 mg DAILY PRN ORAL WHEN NEEDED 02/21/19 09:00 03/22/19 00:14 UNV Vancomycin HCl (Firvanq) 125 mg FOUR TIMES A DAY ORAL 02/20/19 13:00 02/25/19 12:59 Vitamin D (Vitamin D) 1,000 intlu DAILY ORAL 02/21/19 09:00 03/22/19 08:59 Miranda Cordero M.D. Feb 20, 2019 11:46
--- NOTE | 2019-02-20 12:23 | NUR ---
DISCHARGE PLANNING Discharge order noted [facility] [address] [place] [address] [facility] [facility] [place], [place] [phone] Await Acceptance and Room Number
[2019-02-20] MEDS: Vancomycin oral 125mg/2.5ml ORAL SCH ×3 (12:35→22:26)
--- NOTE | 2019-02-20 12:54 | Pulmonology Progress Note ---
Assessment/Plan Problems: (1) Sepsis (2) Febrile illness, acute (3) Atrial fibrillation (4) History of rectal cancer (5) BPH (benign prostatic hyperplasia) (6) Degenerative disc disease (7) Severe protein-calorie malnutrition (8) HIV (human immunodeficiency virus infection) Assessment/Plan wbc lower not eating well continue abx check electrolytes watch the heart rate Subjective ROS Limited/Unobtainable: No Constitutional: Reports: no symptoms HEENT: Repors: no symptoms Allergies: Coded Allergies: CODEINE (Unverified Allergy, Unknown, 11/28/17) EMTRICITABINE (Verified Allergy, Unknown, anxiousness, 08/31/18) SULFAMETHOXAZOLE (Unverified Allergy, Unknown, 10/27/17) TENOFOVIR (Verified Allergy, Unknown, anxiousness, 08/31/18) TRIMETHOPRIM (Unverified Allergy, Unknown, 10/27/17) Objective Last 24 Hour Vital Signs Date Time Temp Pulse Resp B/P (MAP) Pulse Ox O2 Delivery O2 Flow Rate FiO2 02/20/19 12:00 97.3 105 18 122/84 (97) 98 02/20/19 09:37 72 16 97 Room Air 21 02/20/19 09:00 Nasal Cannula 2.0 02/20/19 08:00 98.0 93 18 118/75 (89) 97 02/20/19 06:25 97.9 02/20/19 05:56 100 105/70 02/20/19 04:00 97.9 100 18 105/70 (82) 96 02/20/19 01:29 98.6 68 19 114/76 (89) 96 02/20/19 00:19 99 02/20/19 00:10 98.4 94 20 112/72 (85) 96 02/19/19 23:03 93 110/67 02/19/19 21:00 Nasal Cannula 2.0 02/19/19 20:09 71 16 95 Room Air 21 02/19/19 20:00 99.0 99 20 119/63 (81) 96 02/19/19 20:00 83 02/19/19 16:00 98.7 77 20 102/65 (77) 92 02/19/19 15:39 74 Intake and Output 02/19/19 02/20/19 19:00 07:00 Intake Total 325 ml 325 ml Balance 325 ml 325 ml Intake Oral 250 ml IV Total 75 ml 325 ml # Voids 3 3 # Bowel Movements 2 1 General Appearance: WD/WN HEENT: normocephalic, atraumatic Respiratory/Chest: chest wall non-tender, lungs clear Cardiovascular: normal peripheral pulses, normal rate Abdomen: normal bowel sounds, no organomegaly Genitourinary: normal external genitalia Skin: no rash 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: 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 grossly normal Lymphatic: no neck adenopathy Laboratory Tests 02/20/19 05:34: White Blood Count 12.7H, Red Blood Count 3.30L, Hemoglobin 10.1L, Hematocrit 29.8L, Mean Corpuscular Volume 90, Mean Corpuscular Hemoglobin 30.5, Mean Corpuscular Hemoglobin Concent 33.8, Red Cell Distribution Width 13.4, Platelet Count 221, Mean Platelet Volume 6.7, Neutrophils (%) (Auto) 71.1, Lymphocytes (% ) (Auto) 21.5, Monocytes (%) (Auto) 6.1, Eosinophils (%) (Auto) 0.8, Basophils ( %) (Auto) 0.4, Sodium Level 137, Potassium Level 4.0, Chloride Level 107, Carbon Dioxide Level 20L, Anion Gap 10, Blood Urea Nitrogen 9, Creatinine 1.0, Estimat Glomerular Filtration Rate > 60, Glucose Level 101, Calcium Level 8.6 Current Medications Medications (Trade) Dose Ordered Sig/Roman Route PRN Reason Start Time Stop Time Status Last Admin Dose Admin Acetaminophen (Tylenol) 650 mg Q4H PRN ORAL fever 02/20/19 09:48 03/22/19 09:47 Albuterol/ Ipratropium (Albuterol/ Ipratropium) 3 ml Q4HRT PRN HHN sob 02/20/19 09:49 02/25/19 09:48 Aspirin (Ecotrin) 81 mg DAILY ORAL 02/21/19 09:00 03/22/19 08:59 Baclofen (Lioresal) 10 mg THREE TIMES A DAY ORAL 02/20/19 13:00 03/22/19 08:59 02/20/19 12:35 Dextrose (Dextrose 50%) 25 ml Q30M PRN IV Hypoglycemia 02/20/19 09:45 03/12/19 14:05 Dextrose (Dextrose 50%) 50 ml Q30M PRN IV hypoglycemia 02/20/19 09:45 03/12/19 14:14 Dextrose/ Electrolytes 1,000 ml @ 75 mls/hr [id number] IV 02/20/19 09:47 03/22/19 09:46 Digoxin (Lanoxin) 0.125 mg DAILY ORAL 02/21/19 09:00 03/16/19 08:59 Diltiazem HCl (Cardizem) 90 mg EVERY 8 HOURS ORAL 02/20/19 14:00 03/14/19 13:59 Docusate Sodium (Colace) 100 mg BIDPRN PRN ORAL Constipation 02/20/19 09:49 03/22/19 09:48 Famotidine (Pepcid) 20 mg BID ORAL 02/20/19 18:00 03/13/19 22:29 Fluconazole (Diflucan) 200 mg DAILY ORAL 02/21/19 09:00 02/24/19 08:59 Gabapentin (Neurontin) 600 mg THREE TIMES A DAY ORAL 02/20/19 13:00 03/12/19 17:59 02/20/19 12:35 Guaifenesin/ Dextromethorphan (Robitussin DM Syrup) 5 ml Q6H PRN ORAL For Cough 02/20/19 09:50 03/22/19 09:49 Ketoconazole (Nizoral 2% Cream) 1 applic BID TOPIC 02/20/19 18:00 03/22/19 08:59 Levothyroxine Sodium (Synthroid) 25 mcg DAILY@0630 ORAL 02/21/19 06:30 03/13/19 06:29 Lorazepam (Ativan) 1 mg BIDPRN PRN ORAL anxiety 02/20/19 09:50 02/27/19 09:49 Losartan Potassium (Cozaar) 50 mg DAILY ORAL 02/21/19 09:00 03/22/19 08:59 Meloxicam (Mobic) 15 mg DAILY ORAL 02/21/19 09:00 03/22/19 08:59 Metoclopramide HCl (Reglan) 5 mg Q6H PRN IVP Nausea & Vomiting 02/20/19 09:51 03/22/19 09:50 Metronidazole 100 ml @ 100 mls/hr Q8HR IVPB 02/20/19 14:00 02/23/19 09:29 Mirtazapine (Remeron) 7.5 mg BEDTIME PRN ORAL SLEEP 02/20/19 21:00 03/22/19 00:14 Mirtazapine (Remeron) 15 mg BEDTIME ORAL 02/20/19 21:00 03/12/19 20:59 Morphine Sulfate (Morphine Sulfate) 4 mg Q4H PRN IVP For Pain 02/20/19 09:52 02/27/19 09:51 Oxycodone/ Acetaminophen (Percocet 10/325) 1 tab BID ORAL 02/20/19 18:00 02/27/19 08:59 Paroxetine HCl (Paxil) 40 mg DAILY ORAL 02/21/19 09:00 03/13/19 08:59 Patient Own Medication (Patient's Own Med) 1 ea BID ORAL 02/20/19 10:00 03/22/19 09:59 02/20/19 12:29 Patient Own Medication (Patient's Own Med) 1 ea DAILY ORAL 02/20/19 10:00 03/22/19 09:59 02/20/19 12:29 Patient Own Medication (Patient's Own Med) 1 ea DAILY ORAL 02/20/19 10:00 03/22/19 09:59 02/20/19 12:30 Polyethylene Glycol (Miralax) 17 gm HSPRN PRN ORAL Constipation 02/20/19 14:00 03/12/19 13:59 Pregabalin (Lyrica) 150 mg BID ORAL 02/20/19 18:00 03/22/19 08:59 Tamsulosin HCl (Flomax) 0.4 mg BID ORAL 02/20/19 18:00 03/12/19 17:59 Valacyclovir HCl (Valtrex) 1,000 mg DAILY PRN ORAL WHEN NEEDED 02/21/19 09:00 03/22/19 00:14 UNV Vancomycin HCl (Firvanq) 125 mg FOUR TIMES A DAY ORAL 02/20/19 13:00 02/25/19 12:59 02/20/19 12:35 Vitamin D (Vitamin D) 1,000 intlu DAILY ORAL 02/21/19 09:00 03/22/19 08:59 Oliverio Rm MD Feb 20, 2019 12:54
[2019-02-20] MEDS ORDERED: Miralax 17gm pkt ORAL PRN (14:00)
--- NOTE | 2019-02-20 14:43 | NUR ---
NURSE NOTES: Dr. pate recommended since patient does not have outbreaks now, no need valtrx at this time. if patient has active one ask dr to get a new order. notified dr. aden and alexus to [facility] now. order noted and carried out.
--- NOTE | 2019-02-20 17:14 | Internal Med Progress Note ---
Subjective Date of Service: Feb 20, 2019 Physician Name Whitaker,Trey Attending Physician Carlos Barragan MD Current Medications Medications (Trade) Dose Ordered Sig/Roman Route PRN Reason Start Time Stop Time Status Last Admin Dose Admin Acetaminophen (Tylenol) 650 mg Q4H PRN ORAL fever 02/20/19 09:48 03/22/19 09:47 Albuterol/ Ipratropium (Albuterol/ Ipratropium) 3 ml Q4HRT PRN HHN sob 02/20/19 09:49 02/25/19 09:48 Aspirin (Ecotrin) 81 mg DAILY ORAL 02/21/19 09:00 03/22/19 08:59 Baclofen (Lioresal) 10 mg THREE TIMES A DAY ORAL 02/20/19 13:00 03/22/19 08:59 02/20/19 12:35 Dextrose (Dextrose 50%) 25 ml Q30M PRN IV Hypoglycemia 02/20/19 09:45 03/12/19 14:05 Dextrose (Dextrose 50%) 50 ml Q30M PRN IV hypoglycemia 02/20/19 09:45 03/12/19 14:14 Dextrose/ Electrolytes 1,000 ml @ 75 mls/hr [id number] IV 02/20/19 09:47 03/22/19 09:46 02/20/19 09:47 Digoxin (Lanoxin) 0.125 mg DAILY ORAL 02/21/19 09:00 03/16/19 08:59 Diltiazem HCl (Cardizem) 90 mg EVERY 8 HOURS ORAL 02/20/19 14:00 03/14/19 13:59 02/20/19 16:03 Docusate Sodium (Colace) 100 mg BIDPRN PRN ORAL Constipation 02/20/19 09:49 03/22/19 09:48 Famotidine (Pepcid) 20 mg BID ORAL 02/20/19 18:00 03/13/19 22:29 Fluconazole (Diflucan) 200 mg DAILY ORAL 02/21/19 09:00 02/24/19 08:59 Gabapentin (Neurontin) 600 mg THREE TIMES A DAY ORAL 02/20/19 13:00 03/12/19 17:59 02/20/19 12:35 Guaifenesin/ Dextromethorphan (Robitussin DM Syrup) 5 ml Q6H PRN ORAL For Cough 02/20/19 09:50 03/22/19 09:49 02/20/19 16:03 Ketoconazole (Nizoral 2% Cream) 1 applic BID TOPIC 02/20/19 18:00 03/22/19 08:59 Levothyroxine Sodium (Synthroid) 25 mcg DAILY@0630 ORAL 02/21/19 06:30 03/13/19 06:29 Lorazepam (Ativan) 1 mg BIDPRN PRN ORAL anxiety 02/20/19 09:50 02/27/19 09:49 Losartan Potassium (Cozaar) 50 mg DAILY ORAL 02/21/19 09:00 03/22/19 08:59 Meloxicam (Mobic) 15 mg DAILY ORAL 02/21/19 09:00 03/22/19 08:59 Metoclopramide HCl (Reglan) 5 mg Q6H PRN IVP Nausea & Vomiting 02/20/19 09:51 03/22/19 09:50 Metronidazole 100 ml @ 100 mls/hr Q8HR IVPB 02/20/19 14:00 02/23/19 09:29 02/20/19 14:04 Mirtazapine (Remeron) 7.5 mg BEDTIME PRN ORAL SLEEP 02/20/19 21:00 03/22/19 00:14 Mirtazapine (Remeron) 15 mg BEDTIME ORAL 02/20/19 21:00 03/12/19 20:59 Morphine Sulfate (Morphine Sulfate) 4 mg Q4H PRN IVP For Pain 02/20/19 09:52 02/27/19 09:51 Oxycodone/ Acetaminophen (Percocet 10/325) 1 tab BID ORAL 02/20/19 18:00 02/27/19 08:59 Paroxetine HCl (Paxil) 40 mg DAILY ORAL 02/21/19 09:00 03/13/19 08:59 Patient Own Medication (Patient's Own Med) 1 ea BID ORAL 02/20/19 10:00 03/22/19 09:59 02/20/19 12:29 Patient Own Medication (Patient's Own Med) 1 ea DAILY ORAL 02/20/19 10:00 03/22/19 09:59 02/20/19 12:29 Patient Own Medication (Patient's Own Med) 1 ea DAILY ORAL 02/20/19 10:00 03/22/19 09:59 02/20/19 12:30 Polyethylene Glycol (Miralax) 17 gm HSPRN PRN ORAL Constipation 02/20/19 14:00 03/12/19 13:59 Pregabalin (Lyrica) 150 mg BID ORAL 02/20/19 18:00 03/22/19 08:59 Tamsulosin HCl (Flomax) 0.4 mg BID ORAL 02/20/19 18:00 03/12/19 17:59 Vancomycin HCl (Firvanq) 125 mg FOUR TIMES A DAY ORAL 02/20/19 13:00 02/25/19 12:59 02/20/19 12:35 Vitamin D (Vitamin D) 1,000 intlu DAILY ORAL 02/21/19 09:00 03/22/19 08:59 Allergies: Coded Allergies: CODEINE (Unverified Allergy, Unknown, 11/28/17) EMTRICITABINE (Verified Allergy, Unknown, anxiousness, 08/31/18) SULFAMETHOXAZOLE (Unverified Allergy, Unknown, 10/27/17) TENOFOVIR (Verified Allergy, Unknown, anxiousness, 08/31/18) TRIMETHOPRIM (Unverified Allergy, Unknown, 10/27/17) ROS Limited/Unobtainable: No Constitutional: Reports: no symptoms HEENT: Reports: no symptoms Cardiovascular: Reports: no symptoms Respiratory: Reports: no symptoms Gastrointestinal/Abdominal: Reports: no symptoms Genitourinary: Reports: no symptoms 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: Reports: no symptoms Subjective 68 YO M admitted with gen weakness. Cover for Int Med-Dr Barragan. Objective Last Vital Signs Date Time Temp Pulse Resp B/P (MAP) Pulse Ox O2 Delivery O2 Flow Rate FiO2 02/20/19 16:03 105 122/84 02/20/19 16:00 97.6 19 99 02/20/19 09:37 Room Air 21 02/20/19 09:00 2.0 Laboratory Tests Test 02/20/19 05:34 White Blood Count 12.7 K/UL (4.8-10.8) H Red Blood Count 3.30 M/UL (4.70-6.10) L Hemoglobin 10.1 G/DL (14.2-18.0) L Hematocrit 29.8 % (42.0-52.0) L Mean Corpuscular Volume 90 FL (80-99) Mean Corpuscular Hemoglobin 30.5 PG (27.0-31.0) Mean Corpuscular Hemoglobin Concent 33.8 G/DL (32.0-36.0) Red Cell Distribution Width 13.4 % (11.6-14.8) Platelet Count 221 K/UL (150-450) Mean Platelet Volume 6.7 FL (6.5-10.1) Neutrophils (%) (Auto) 71.1 % (45.0-75.0) Lymphocytes (%) (Auto) 21.5 % (20.0-45.0) Monocytes (%) (Auto) 6.1 % (1.0-10.0) Eosinophils (%) (Auto) 0.8 % (0.0-3.0) Basophils (%) (Auto) 0.4 % (0.0-2.0) Sodium Level 137 MMOL/L (136-145) Potassium Level 4.0 MMOL/L (3.5-5.1) Chloride Level 107 MMOL/L (98-107) Carbon Dioxide Level 20 MMOL/L (21-32) L Anion Gap 10 mmol/L (5-15) Blood Urea Nitrogen 9 mg/dL (7-18) Creatinine 1.0 MG/DL (0.55-1.30) Estimat Glomerular Filtration Rate > 60 mL/min (>60) Glucose Level 101 MG/DL (74-106) Calcium Level 8.6 MG/DL (8.5-10.1) Intake and Output 02/19/19 02/20/19 19:00 07:00 Intake Total 325 ml 325 ml Balance 325 ml 325 ml Intake Oral 250 ml IV Total 75 ml 325 ml # Voids 3 3 # Bowel Movements 2 1 Objective PHYSICAL EXAMINATION: GENERAL: The patient is a thin-appearing white male, in no apparent distress. HEENT: Eyes, pupils are equal and responsive to light and accommodation. Extraocular movements are intact. NECK: Supple without lymphadenopathy. CHEST: Lungs are clear to auscultation bilaterally without wheezes or rales. CARDIOVASCULAR: Regular rhythm and rate. S1 and S2 are normal without murmurs, rubs, or gallops. ABDOMEN: Soft, nontender, and nondistended. Positive bowel sounds. No evidence of hepatosplenomegaly. Currently, no rebound or guarding noted. EXTREMITIES: Negative for clubbing, cyanosis, or edema. RECTAL/GENITAL: Not performed. NEUROLOGIC: Cranial nerves II through XII are grossly intact without focal deficits. Assessment/Plan Assessment/Plan ASSESSMENT: This is an 68-year-old white male. 1. Generalized weakness. 2. Hypertension. 3. Hypothyroidism. 4. Rectal cancer. 5. Cerebrovascular disease. 6. HIV. 7. Paroxysmal supraventricular tachycardia. 8. Bibasilar atelectasis 9. hypokalemia 10. Clostridium dificile diarrhea 11. pneumonia TREATMENT: 1. Generalized weakness. Generalized weakness may be due to deconditioning- see physical therapy note. 2. Hypertension. Continue amlodipine, losartan, and metoprolol as above. 3. Hypothyroidism. Continue Levoxyl as above. 4. Rectal cancer. The patient is followed at [facility]. 5. History of cerebrovascular accident. 6. HIV. Continue HAART as above. 7. Paroxysmal supraventricular tachycardia. Cardiology consultation is pending with Dr Mendez 8. Await CT chest 9. Replace K+ 10. CT abdomen=enterocolitis. C.Diff POSITIVE. Start vanco 11. ABX=IV flagyl and oral vanco 12. ID consult=Dr Cordero 13. Discharge planning: long term fac Trey Whitaker MD Feb 20, 2019 17:14
--- NOTE | 2019-02-20 17:25 | NUR ---
CHARGE NURSE NOTE: Spoke with Raquel [phone] ([facility]), they are accepting patient, but pt should be treated for c-diff, and get isolation clearance.
[2019-02-20] MEDS: Tamsulosin 0.4mg cap ORAL SCH (18:41)
[2019-02-20] MEDS: Lyrica 75mg cap ORAL SCH (18:42)
--- NOTE | 2019-02-20 19:13 | Cardiac Electrophysiology PN ---
Assessment/Plan Assessment/Plan 1. Atrial fibrillation, rapid ventricular response. In SR with PACs.On Cardizem 90 mg q 8 hours and Dig 0.125. Dig level 1.1. Off anticoagulation at this time.EF 60% 2. Hypertension. On Cardizem. 3. Recurrent supraventricular tachycardia of sudden onset and termination in 160s. On Dig and Cardizem 4. Human immunodeficiency virus. 5. Generalized weakness. 6. Rectal cancer. 7. Cerebrovascular accident. 8. C Diff on Flagyl and Vanco ORALIA RN Subjective Subjective Alert in NAD.On iv Flagyl and po Vanco. Off tele now. Objective Last 24 Hour Vital Signs Date Time Temp Pulse Resp B/P (MAP) Pulse Ox O2 Delivery O2 Flow Rate FiO2 02/20/19 16:03 105 122/84 02/20/19 16:00 97.6 99 19 119/81 (94) 99 02/20/19 12:00 97.3 105 18 122/84 (97) 98 02/20/19 09:37 72 16 97 Room Air 21 02/20/19 09:00 Nasal Cannula 2.0 02/20/19 08:00 98.0 93 18 118/75 (89) 97 02/20/19 06:25 97.9 02/20/19 05:56 100 105/70 02/20/19 04:00 97.9 100 18 105/70 (82) 96 02/20/19 01:29 98.6 68 19 114/76 (89) 96 02/20/19 00:19 99 02/20/19 00:10 98.4 94 20 112/72 (85) 96 02/19/19 23:03 93 110/67 02/19/19 21:00 Nasal Cannula 2.0 02/19/19 20:09 71 16 95 Room Air 21 02/19/19 20:00 99.0 99 20 119/63 (81) 96 02/19/19 20:00 83 Intake and Output 02/19/19 02/20/19 19:00 07:00 Intake Total 325 ml 325 ml Balance 325 ml 325 ml Intake Oral 250 ml IV Total 75 ml 325 ml # Voids 3 3 # Bowel Movements 2 1 Laboratory Tests Test 02/20/19 05:34 White Blood Count 12.7 K/UL (4.8-10.8) H Red Blood Count 3.30 M/UL (4.70-6.10) L Hemoglobin 10.1 G/DL (14.2-18.0) L Hematocrit 29.8 % (42.0-52.0) L Mean Corpuscular Volume 90 FL (80-99) Mean Corpuscular Hemoglobin 30.5 PG (27.0-31.0) Mean Corpuscular Hemoglobin Concent 33.8 G/DL (32.0-36.0) Red Cell Distribution Width 13.4 % (11.6-14.8) Platelet Count 221 K/UL (150-450) Mean Platelet Volume 6.7 FL (6.5-10.1) Neutrophils (%) (Auto) 71.1 % (45.0-75.0) Lymphocytes (%) (Auto) 21.5 % (20.0-45.0) Monocytes (%) (Auto) 6.1 % (1.0-10.0) Eosinophils (%) (Auto) 0.8 % (0.0-3.0) Basophils (%) (Auto) 0.4 % (0.0-2.0) Sodium Level 137 MMOL/L (136-145) Potassium Level 4.0 MMOL/L (3.5-5.1) Chloride Level 107 MMOL/L (98-107) Carbon Dioxide Level 20 MMOL/L (21-32) L Anion Gap 10 mmol/L (5-15) Blood Urea Nitrogen 9 mg/dL (7-18) Creatinine 1.0 MG/DL (0.55-1.30) Estimat Glomerular Filtration Rate > 60 mL/min (>60) Glucose Level 101 MG/DL (74-106) Calcium Level 8.6 MG/DL (8.5-10.1) Objective HEAD AND NECK: No JVD. LUNGS: Coarse rhonchi. CARDIOVASCULAR: regular S1 and S2 with no gallop ABDOMEN: Soft. EXTREMITIES: No pitting edema. Abel Mendez MD Feb 20, 2019 19:13
--- NOTE | 2019-02-20 19:36 | NUR ---
HAND-OFF: Report given to CHARLEY Taylor.
--- NOTE | 2019-02-20 19:53 | NUR ---
NURSE NOTES: Received report from CHARLEY Newton. Patient A&Ox4. On nasal cannula 2L/min. No signs of distress or labored breathing. IV intact, patent, and infusing fluids. Rectal tube in place, and draining feces. Bed in lowest position with call light in reach. Will continue with plan of care.
--- NOTE | 2019-02-20 22:00 | NUR ---
NURSE NOTES: Previous dose of Flagyl antibiotic from dayshift (@1400) did not finish infusing. Will discard remainder of dose and hang @2200 dose. Pharmacist notified.
[2019-02-21] VITALS (7 sets, daily range): BP systolic 90–123; BP diastolic 50–74
[2019-02-21] MEDS: Guaifenesin/DM 10ml syrup ORAL PRN (00:44)
[2019-02-21] MEDS: dilTIAZem HCl 90mg tab ORAL SCH ×4 (06:00→21:08)
[2019-02-21] MEDS: Levothyroxine 25mcg tab ORAL SCH (06:08)
[2019-02-21 06:50] LABS: BASOPHILS % (AUTO) 0.6 % (0.0-2.0); EOSINOPHILS % (AUTO) 1.4 % (0.0-3.0); HEMATOCRIT 29.6 % (42.0-52.0); HEMOGLOBIN 9.8 G/DL (14.2-18.0); LYMPHOCYTES % (AUTO) 22.7 % (20.0-45.0); MEAN CORPUSCULAR VOLUME 91 FL (80-99); MONOCYTES % (AUTO) 8.5 % (1.0-10.0); NEUTROPHILS % (AUTO) 66.8 % (45.0-75.0); PLATELET COUNT 173 K/UL (150-450); RED BLOOD COUNT 3.24 M/UL (4.70-6.10); RED CELL DISTRIBUTION WIDTH 13.6 % (11.6-14.8); WHITE BLOOD COUNT 10.1 K/UL (4.8-10.8)
[2019-02-21 07:04] LABS: ALANINE AMINOTRANSFERASE 40 U/L (12-78); ALBUMIN 2.3 G/DL (3.4-5.0); ALBUMIN/GLOBULIN RATIO 0.6 (1.0-2.7); ALKALINE PHOSPHATASE 95 U/L (46-116); ANION GAP 8 mmol/L (5-15); ASPARTATE AMINO TRANSFERASE 20 U/L (15-37); BILIRUBIN,TOTAL 0.3 MG/DL (0.2-1.0); BLOOD UREA NITROGEN 13 mg/dL (7-18); CALCIUM 8.3 MG/DL (8.5-10.1); CARBON DIOXIDE 22 MMOL/L (21-32); CHLORIDE 110 MMOL/L (98-107); POTASSIUM 3.9 MMOL/L (3.5-5.1); SODIUM 140 MMOL/L (136-145)
--- NOTE | 2019-02-21 07:29 | NUR ---
HAND-OFF: Report given to Connor Crowley RN.
--- NOTE | 2019-02-21 07:30 | NUR ---
NURSE NOTES: Received pt in bed, sleeping. No s/s of distress. On nasal canula 2 L. IV on L AC 20g intact and patent, running D5W with KCl 20 mEq at 75 ml/hr. Rectal tube in place. Bed in the lowest, locked, and alarm on. Call light within reach. Will continue to monitor
--- NOTE | 2019-02-21 08:29 | NUR ---
CASE MANAGEMENT:REVIEW 02/21/19 SI: SEPSIS. PNA. C-DIFF COLITIS. ESOPHAGITIS 101.7 88 16 104/65 95% ON RA H/H-9.8/29.6 IS: IV FLAGYL Q8HRS VANCOMYCIN PO QID DIFLUCAN PO QD ASA PO QD DIGOXIN PO QD COZAAR PO QD MOBIC PO QD PAXIL PO QD : NOW ON MED/SURG [facility] DCP: REFER TO SNF PER MD'S ORDER PLAN: HAVE REFERRED TO MULTIPLE SNF'S BUT NONE HAVE ACCEPTED YET WILL CONTINUE TO REFER....MIGHT NEED TO DO A LETTER OF AGREEMENT
[2019-02-21] MEDS: Vitamin D 1000 IU Tab ORAL SCH (09:00)
[2019-02-21] MEDS: Meloxicam 15 MG TAB ORAL SCH (09:00)
[2019-02-21] MEDS: Tamsulosin 0.4mg cap ORAL SCH ×2 (09:00→18:00)
[2019-02-21] MEDS: PARoxetine 20mg tab ORAL SCH (09:00)
[2019-02-21] MEDS ORDERED: valACYclovir HCL 500mg tab ORAL PRN (09:00)
--- NOTE | 2019-02-21 10:23 | GI Progress Note ---
Assessment/Plan Problems: (1) Veda infection ICD Codes: B37.9 - Candidiasis, unspecified SNOMED: 45518650 (2) Duodenal ulcer ICD Codes: K26.9 - Duodenal ulcer, unspecified as acute or chronic, without hemorrhage or perforation SNOMED: 51035927 (3) Anemia ICD Codes: D64.9 - Anemia, unspecified SNOMED: 248776373 Status: unchanged Status Narrative Discussed with Dr. Germain. Assessment/Plan SUMMARY OF FINDINGS: 1. Severe distal esophagitis, atypical, severe Veda esophagitis. 2. Duodenal ulcerations. 3. Gastritis, status post biopsy. RECOMMENDATIONS: 1. Follow up pathology and treat accordingly. 2. The patient is to be on a PPI given duodenal ulceration. 3. We will start fluconazole for Veda esophagitis, pending results of the brushing and biopsy. advance to soft diet follow labs dc planning The patient was seen and examined at bedside and all new and available data was reviewed in the patients chart. I agree with the above findings, impression and plan. (Patient seen earlier today. Signature stamp does not reflect patient encounter time.). - Dejan Germain MD Subjective Subjective tolerating diet no report N/V Objective Last 24 Hour Vital Signs Date Time Temp Pulse Resp B/P (MAP) Pulse Ox O2 Delivery O2 Flow Rate FiO2 02/21/19 08:25 93 17 96 Nasal Cannula 2.0 28 02/21/19 08:25 96 Nasal Cannula 2.0 28 02/21/19 08:00 98.1 95 18 122/74 (90) 92 02/21/19 06:00 88 104/65 02/21/19 04:00 98.9 88 16 104/65 (78) 95 02/21/19 01:15 98.9 02/21/19 00:43 101.7 02/21/19 00:00 99.9 97 17 123/68 (86) 95 02/20/19 22:00 94 105/70 02/20/19 21:00 Nasal Cannula 2.0 02/20/19 20:00 98.6 94 18 105/70 (82) 94 02/20/19 19:19 98 18 98 Nasal Cannula 2.0 28 02/20/19 19:19 98 Nasal Cannula 2.0 28 02/20/19 16:03 105 122/84 02/20/19 16:00 97.6 99 19 119/81 (94) 99 02/20/19 12:00 97.3 105 18 122/84 (97) 98 Intake and Output 02/20/19 02/21/19 19:00 07:00 Intake Total 820 ml 730 ml Balance 820 ml 730 ml Intake Oral 820 ml 480 ml IV Total 250 ml # Voids 6 3 # Bowel Movements 3 Laboratory Tests Test 02/21/19 05:20 White Blood Count 10.1 K/UL (4.8-10.8) Red Blood Count 3.24 M/UL (4.70-6.10) L Hemoglobin 9.8 G/DL (14.2-18.0) L Hematocrit 29.6 % (42.0-52.0) L Mean Corpuscular Volume 91 FL (80-99) Mean Corpuscular Hemoglobin 30.1 PG (27.0-31.0) Mean Corpuscular Hemoglobin Concent 33.0 G/DL (32.0-36.0) Red Cell Distribution Width 13.6 % (11.6-14.8) Platelet Count 173 K/UL (150-450) Mean Platelet Volume 6.8 FL (6.5-10.1) Neutrophils (%) (Auto) 66.8 % (45.0-75.0) Lymphocytes (%) (Auto) 22.7 % (20.0-45.0) Monocytes (%) (Auto) 8.5 % (1.0-10.0) Eosinophils (%) (Auto) 1.4 % (0.0-3.0) Basophils (%) (Auto) 0.6 % (0.0-2.0) Sodium Level 140 MMOL/L (136-145) Potassium Level 3.9 MMOL/L (3.5-5.1) Chloride Level 110 MMOL/L (98-107) H Carbon Dioxide Level 22 MMOL/L (21-32) Anion Gap 8 mmol/L (5-15) Blood Urea Nitrogen 13 mg/dL (7-18) Creatinine 1.0 MG/DL (0.55-1.30) Estimat Glomerular Filtration Rate > 60 mL/min (>60) Glucose Level 95 MG/DL (74-106) Calcium Level 8.3 MG/DL (8.5-10.1) L Total Bilirubin 0.3 MG/DL (0.2-1.0) Aspartate Amino Transf (AST/SGOT) 20 U/L (15-37) Alanine Aminotransferase (ALT/SGPT) 40 U/L (12-78) Alkaline Phosphatase 95 U/L (46-116) Total Protein 6.2 G/DL (6.4-8.2) L Albumin 2.3 G/DL (3.4-5.0) L Globulin 3.9 g/dL Albumin/Globulin Ratio 0.6 (1.0-2.7) L Height (Feet): 5 Height (Inches): 5.00 Weight (Pounds): 152 General Appearance: WD/WN, no apparent distress, alert Cardiovascular: normal rate Respiratory/Chest: normal breath sounds, no respiratory distress Abdominal Exam: normal bowel sounds, non tender, soft Extremities: normal range of motion, non-tender Jasen Brink NP Feb 21, 2019 10:23
[2019-02-21] MEDS: Vancomycin oral 125mg/2.5ml ORAL SCH ×4 (10:33→21:08)
[2019-02-21] MEDS: Lyrica 75mg cap ORAL SCH ×2 (10:35→18:36)
[2019-02-21] MEDS: Aspirin EC 81mg tab ORAL SCH (10:35)
[2019-02-21] MEDS: Losartan 50mg tab ORAL SCH (10:35)
[2019-02-21] MEDS: Fluconazole 100mg tab ORAL SCH (10:36)
[2019-02-21] MEDS: Digoxin 0.125mg tab ORAL SCH (10:36)
--- NOTE | 2019-02-21 11:39 | NUR ---
SPEECH PATHOLOGY: S: PATIENT SEEN SITTING UPRIGHT IN BED. HE WAS ALERT, AWAKE, VERBAL HE WAS CLEARED FOR ST INTERVENTION BY CHARLEY GONZALEZ. O: DYSPHAGIA MANAGEMENT A: PATIENT SEEN SITTING UPRIGHT IN BED RECENT EGD FINDING: SEVERE DISTAL ESOPHAGEAL GASTRITIS, P.O. TRIALS WITH SOFT SOLIDS AND THIN LIQUIDS PATIENT COUGHED X2 POST SWALLOW SOFT SOLIDS. VITAL SIGN CHANGES DURING P.O.: ESCALATED RR PATIENT REFUSED DIET OF CLEAR LIQUIDS RECOMMENDED FROM VIDEO SWALLOW STUDY, PATIENT INSISTS ON SOLIDS INSTRUCTED HIM RE: BENEFIT OF ALTERNATING LIQUIDS SOLIDS FOR CLEARING SOLIDS THROUGH PHARYNX P: CONTINUE PER PLAN
--- NOTE | 2019-02-21 11:55 | Internal Med Progress Note ---
Subjective Date of Service: Feb 21, 2019 Physician Name Trey Whitaker Attending Physician Carlos Barragan MD Current Medications Medications (Trade) Dose Ordered Sig/Roman Route PRN Reason Start Time Stop Time Status Last Admin Dose Admin Acetaminophen (Tylenol) 650 mg Q4H PRN ORAL fever 02/20/19 09:48 03/22/19 09:47 02/21/19 00:45 Albuterol/ Ipratropium (Albuterol/ Ipratropium) 3 ml Q4HRT PRN HHN sob 02/20/19 09:49 02/25/19 09:48 Aspirin (Ecotrin) 81 mg DAILY ORAL 02/21/19 09:00 03/22/19 08:59 02/21/19 10:35 Baclofen (Lioresal) 10 mg THREE TIMES A DAY ORAL 02/20/19 13:00 03/22/19 08:59 02/21/19 10:37 Dextrose (Dextrose 50%) 25 ml Q30M PRN IV Hypoglycemia 02/20/19 09:45 03/12/19 14:05 Dextrose (Dextrose 50%) 50 ml Q30M PRN IV hypoglycemia 02/20/19 09:45 03/12/19 14:14 Dextrose/ Electrolytes 1,000 ml @ 75 mls/hr [id number] IV 02/20/19 09:47 03/22/19 09:46 02/20/19 09:47 Digoxin (Lanoxin) 0.125 mg DAILY ORAL 02/21/19 09:00 03/16/19 08:59 02/21/19 10:36 Diltiazem HCl (Cardizem) 90 mg EVERY 8 HOURS ORAL 02/20/19 14:00 03/14/19 13:59 02/20/19 16:03 Docusate Sodium (Colace) 100 mg BIDPRN PRN ORAL Constipation 02/20/19 09:49 03/22/19 09:48 Famotidine (Pepcid) 20 mg BID ORAL 02/20/19 18:00 03/13/19 22:29 02/20/19 18:41 Fluconazole (Diflucan) 200 mg DAILY ORAL 02/21/19 09:00 02/24/19 08:59 02/21/19 10:36 Gabapentin (Neurontin) 600 mg THREE TIMES A DAY ORAL 02/20/19 13:00 03/12/19 17:59 02/20/19 12:35 Guaifenesin/ Dextromethorphan (Robitussin DM Syrup) 5 ml Q6H PRN ORAL For Cough 02/20/19 09:50 03/22/19 09:49 02/21/19 00:44 Ketoconazole (Nizoral 2% Cream) 1 applic BID TOPIC 02/20/19 18:00 03/22/19 08:59 Levothyroxine Sodium (Synthroid) 25 mcg DAILY@0630 ORAL 02/21/19 06:30 03/13/19 06:29 02/21/19 06:08 Lorazepam (Ativan) 1 mg BIDPRN PRN ORAL anxiety 02/20/19 09:50 02/27/19 09:49 Losartan Potassium (Cozaar) 50 mg DAILY ORAL 02/21/19 09:00 03/22/19 08:59 02/21/19 10:35 Meloxicam (Mobic) 15 mg DAILY ORAL 02/21/19 09:00 03/22/19 08:59 Metoclopramide HCl (Reglan) 5 mg Q6H PRN IVP Nausea & Vomiting 02/20/19 09:51 03/22/19 09:50 Metronidazole 100 ml @ 100 mls/hr Q8HR IVPB 02/20/19 14:00 02/23/19 09:29 02/21/19 06:06 Mirtazapine (Remeron) 7.5 mg BEDTIME PRN ORAL SLEEP 02/20/19 21:00 03/22/19 00:14 Mirtazapine (Remeron) 15 mg BEDTIME ORAL 02/20/19 21:00 03/12/19 20:59 Morphine Sulfate (Morphine Sulfate) 4 mg Q4H PRN IVP For Pain 02/20/19 09:52 02/27/19 09:51 Oxycodone/ Acetaminophen (Percocet 10/325) 1 tab BID ORAL 02/20/19 18:00 02/27/19 08:59 02/21/19 10:37 Paroxetine HCl (Paxil) 40 mg DAILY ORAL 02/21/19 09:00 03/13/19 08:59 Patient Own Medication (Patient's Own Med) 1 ea BID ORAL 02/20/19 10:00 03/22/19 09:59 02/20/19 12:29 Patient Own Medication (Patient's Own Med) 1 ea DAILY ORAL 02/20/19 10:00 03/22/19 09:59 02/20/19 12:29 Patient Own Medication (Patient's Own Med) 1 ea DAILY ORAL 02/20/19 10:00 03/22/19 09:59 02/20/19 12:30 Polyethylene Glycol (Miralax) 17 gm HSPRN PRN ORAL Constipation 02/20/19 14:00 03/12/19 13:59 Pregabalin (Lyrica) 150 mg BID ORAL 02/20/19 18:00 03/22/19 08:59 02/21/19 10:35 Tamsulosin HCl (Flomax) 0.4 mg BID ORAL 02/20/19 18:00 03/12/19 17:59 02/20/19 18:41 Vancomycin HCl (Firvanq) 125 mg FOUR TIMES A DAY ORAL 02/20/19 13:00 02/25/19 12:59 02/21/19 10:33 Vitamin D (Vitamin D) 1,000 intlu DAILY ORAL 02/21/19 09:00 03/22/19 08:59 Allergies: Coded Allergies: CODEINE (Unverified Allergy, Unknown, 11/28/17) EMTRICITABINE (Verified Allergy, Unknown, anxiousness, 08/31/18) SULFAMETHOXAZOLE (Unverified Allergy, Unknown, 10/27/17) TENOFOVIR (Verified Allergy, Unknown, anxiousness, 08/31/18) TRIMETHOPRIM (Unverified Allergy, Unknown, 10/27/17) ROS Limited/Unobtainable: No Constitutional: Reports: no symptoms HEENT: Reports: no symptoms Cardiovascular: Reports: no symptoms Respiratory: Reports: no symptoms Gastrointestinal/Abdominal: Reports: no symptoms Genitourinary: Reports: no symptoms 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: Reports: no symptoms Subjective 68 YO M admitted with gen weakness. Now C.Diff diarrhea. S/P endoscopy . Cover for Int Med-Dr Barragan. Await SNF placement Objective Last Vital Signs Date Time Temp Pulse Resp B/P (MAP) Pulse Ox O2 Delivery O2 Flow Rate FiO2 02/21/19 10:36 93 02/21/19 10:35 122/74 02/21/19 09:00 Nasal Cannula 2.0 02/21/19 08:25 17 96 28 02/21/19 08:00 98.1 Laboratory Tests Test 02/21/19 05:20 White Blood Count 10.1 K/UL (4.8-10.8) Red Blood Count 3.24 M/UL (4.70-6.10) L Hemoglobin 9.8 G/DL (14.2-18.0) L Hematocrit 29.6 % (42.0-52.0) L Mean Corpuscular Volume 91 FL (80-99) Mean Corpuscular Hemoglobin 30.1 PG (27.0-31.0) Mean Corpuscular Hemoglobin Concent 33.0 G/DL (32.0-36.0) Red Cell Distribution Width 13.6 % (11.6-14.8) Platelet Count 173 K/UL (150-450) Mean Platelet Volume 6.8 FL (6.5-10.1) Neutrophils (%) (Auto) 66.8 % (45.0-75.0) Lymphocytes (%) (Auto) 22.7 % (20.0-45.0) Monocytes (%) (Auto) 8.5 % (1.0-10.0) Eosinophils (%) (Auto) 1.4 % (0.0-3.0) Basophils (%) (Auto) 0.6 % (0.0-2.0) Sodium Level 140 MMOL/L (136-145) Potassium Level 3.9 MMOL/L (3.5-5.1) Chloride Level 110 MMOL/L (98-107) H Carbon Dioxide Level 22 MMOL/L (21-32) Anion Gap 8 mmol/L (5-15) Blood Urea Nitrogen 13 mg/dL (7-18) Creatinine 1.0 MG/DL (0.55-1.30) Estimat Glomerular Filtration Rate > 60 mL/min (>60) Glucose Level 95 MG/DL (74-106) Calcium Level 8.3 MG/DL (8.5-10.1) L Total Bilirubin 0.3 MG/DL (0.2-1.0) Aspartate Amino Transf (AST/SGOT) 20 U/L (15-37) Alanine Aminotransferase (ALT/SGPT) 40 U/L (12-78) Alkaline Phosphatase 95 U/L (46-116) Total Protein 6.2 G/DL (6.4-8.2) L Albumin 2.3 G/DL (3.4-5.0) L Globulin 3.9 g/dL Albumin/Globulin Ratio 0.6 (1.0-2.7) L Intake and Output 02/20/19 02/21/19 19:00 07:00 Intake Total 820 ml 730 ml Balance 820 ml 730 ml Intake Oral 820 ml 480 ml IV Total 250 ml # Voids 6 3 # Bowel Movements 3 Objective PHYSICAL EXAMINATION: GENERAL: The patient is a thin-appearing white male, in no apparent distress. HEENT: Eyes, pupils are equal and responsive to light and accommodation. Extraocular movements are intact. NECK: Supple without lymphadenopathy. CHEST: Lungs are clear to auscultation bilaterally without wheezes or rales. CARDIOVASCULAR: Regular rhythm and rate. S1 and S2 are normal without murmurs, rubs, or gallops. ABDOMEN: Soft, nontender, and nondistended. Positive bowel sounds. No evidence of hepatosplenomegaly. Currently, no rebound or guarding noted. EXTREMITIES: Negative for clubbing, cyanosis, or edema. RECTAL/GENITAL: Not performed. NEUROLOGIC: Cranial nerves II through XII are grossly intact without focal deficits. Assessment/Plan Assessment/Plan ASSESSMENT: This is an 68-year-old white male. 1. Generalized weakness. 2. Hypertension. 3. Hypothyroidism. 4. Rectal cancer. 5. Cerebrovascular disease. 6. HIV. 7. Paroxysmal supraventricular tachycardia. 8. Bibasilar atelectasis 9. hypokalemia 10. Clostridium dificile diarrhea 11. pneumonia 12. dysphagia/esophagitis TREATMENT: 1. Generalized weakness. Generalized weakness may be due to deconditioning- see physical therapy note. 2. Hypertension. Continue amlodipine, losartan, and metoprolol as above. 3. Hypothyroidism. Continue Levoxyl as above. 4. Rectal cancer. The patient is followed at [facility]. 5. History of cerebrovascular accident. 6. HIV. Continue HAART as above. 7. Paroxysmal supraventricular tachycardia. Cardiology consultation is pending with Dr Mendez 8. Await CT chest 9. Replace K+ 10. CT abdomen=enterocolitis. C.Diff POSITIVE. Start vanco 11. ABX=IV flagyl and oral vanco 12. ID consult=Dr Cordero 13. Discharge planning: care home fac 14. S/P endoscopy 02/16/19=esophagitis Trey Whitaker MD Feb 21, 2019 11:55
--- NOTE | 2019-02-21 11:57 | NUR ---
DISCHARGE PLANNING PATIENT HAS BEEN ACCEPTED AT: 1) [facility] 2) [facility] 3) [facility] DR MENDEZ ASKED THAT PATIENT BE REFERRED TO [facility]....CLINICALS HAVE BEEN FAXED Addendum: 02/21/19 at 1453 by KING LARSON LVN LVN DR MENDEZ NOW REQUESTING PATIENT BE REFERRED TO [facility][NOTE 3] CLINICALS FAXED TO [facility]
--- NOTE | 2019-02-21 11:58 | Pulmonology Progress Note ---
Assessment/Plan Problems: (1) Sepsis (2) Febrile illness, acute (3) Atrial fibrillation (4) History of rectal cancer (5) BPH (benign prostatic hyperplasia) (6) Degenerative disc disease (7) Severe protein-calorie malnutrition (8) HIV (human immunodeficiency virus infection) Assessment/Plan Esophageal biopsy pending wbc lower not eating well continue abx, on oral vancomycin and iv flagyl check electrolytes watch the heart rate Subjective ROS Limited/Unobtainable: No Constitutional: Reports: no symptoms HEENT: Repors: no symptoms Allergies: Coded Allergies: CODEINE (Unverified Allergy, Unknown, 11/28/17) EMTRICITABINE (Verified Allergy, Unknown, anxiousness, 08/31/18) SULFAMETHOXAZOLE (Unverified Allergy, Unknown, 10/27/17) TENOFOVIR (Verified Allergy, Unknown, anxiousness, 08/31/18) TRIMETHOPRIM (Unverified Allergy, Unknown, 10/27/17) Objective Last 24 Hour Vital Signs Date Time Temp Pulse Resp B/P (MAP) Pulse Ox O2 Delivery O2 Flow Rate FiO2 02/21/19 10:36 93 02/21/19 10:35 122/74 02/21/19 09:00 Nasal Cannula 2.0 02/21/19 08:25 93 17 96 Nasal Cannula 2.0 28 02/21/19 08:25 96 Nasal Cannula 2.0 28 02/21/19 08:00 98.1 95 18 122/74 (90) 92 02/21/19 06:00 88 104/65 02/21/19 04:00 98.9 88 16 104/65 (78) 95 02/21/19 01:15 98.9 02/21/19 00:43 101.7 02/21/19 00:00 99.9 97 17 123/68 (86) 95 02/20/19 22:00 94 105/70 02/20/19 21:00 Nasal Cannula 2.0 02/20/19 20:00 98.6 94 18 105/70 (82) 94 02/20/19 19:19 98 18 98 Nasal Cannula 2.0 28 02/20/19 19:19 98 Nasal Cannula 2.0 28 02/20/19 16:03 105 122/84 02/20/19 16:00 97.6 99 19 119/81 (94) 99 8/20/19 12:00 97.3 105 18 122/84 (97) 98 Intake and Output 02/20/19 02/21/19 19:00 07:00 Intake Total 820 ml 730 ml Balance 820 ml 730 ml Intake Oral 820 ml 480 ml IV Total 250 ml # Voids 6 3 # Bowel Movements 3 General Appearance: WD/WN HEENT: normocephalic, atraumatic Respiratory/Chest: chest wall non-tender, lungs clear Cardiovascular: normal peripheral pulses, normal rate, regular rhythm Abdomen: normal bowel sounds, soft, non tender Genitourinary: normal external genitalia Extremities: no cyanosis Skin: no ulcers Lymphatic: no neck adenopathy Laboratory Tests 02/21/19 05:20: White Blood Count 10.1, Red Blood Count 3.24L, Hemoglobin 9.8L, Hematocrit 29.6L , Mean Corpuscular Volume 91, Mean Corpuscular Hemoglobin 30.1, Mean Corpuscular Hemoglobin Concent 33.0, Red Cell Distribution Width 13.6, Platelet Count 173, Mean Platelet Volume 6.8, Neutrophils (%) (Auto) 66.8, Lymphocytes (% ) (Auto) 22.7, Monocytes (%) (Auto) 8.5, Eosinophils (%) (Auto) 1.4, Basophils ( %) (Auto) 0.6, Sodium Level 140, Potassium Level 3.9, Chloride Level 110H, Carbon Dioxide Level 22, Anion Gap 8, Blood Urea Nitrogen 13, Creatinine 1.0, Estimat Glomerular Filtration Rate > 60, Glucose Level 95, Calcium Level 8.3L, Total Bilirubin 0.3, Aspartate Amino Transf (AST/SGOT) 20, Alanine Aminotransferase (ALT/SGPT) 40, Alkaline Phosphatase 95, Total Protein 6.2L, Albumin 2.3L, Globulin 3.9, Albumin/Globulin Ratio 0.6L Current Medications Medications (Trade) Dose Ordered Sig/Roman Route PRN Reason Start Time Stop Time Status Last Admin Dose Admin Acetaminophen (Tylenol) 650 mg Q4H PRN ORAL fever 02/20/19 09:48 03/22/19 09:47 02/21/19 00:45 Albuterol/ Ipratropium (Albuterol/ Ipratropium) 3 ml Q4HRT PRN HHN sob 02/20/19 09:49 02/25/19 09:48 Aspirin (Ecotrin) 81 mg DAILY ORAL 02/21/19 09:00 03/22/19 08:59 02/21/19 10:35 Baclofen (Lioresal) 10 mg THREE TIMES A DAY ORAL 02/20/19 13:00 03/22/19 08:59 02/21/19 10:37 Dextrose (Dextrose 50%) 25 ml Q30M PRN IV Hypoglycemia 02/20/19 09:45 03/12/19 14:05 Dextrose (Dextrose 50%) 50 ml Q30M PRN IV hypoglycemia 02/20/19 09:45 03/12/19 14:14 Dextrose/ Electrolytes 1,000 ml @ 75 mls/hr [id number] IV 02/20/19 09:47 03/22/19 09:46 02/20/19 09:47 Digoxin (Lanoxin) 0.125 mg DAILY ORAL 02/21/19 09:00 03/16/19 08:59 02/21/19 10:36 Diltiazem HCl (Cardizem) 90 mg EVERY 8 HOURS ORAL 02/20/19 14:00 03/14/19 13:59 02/20/19 16:03 Docusate Sodium (Colace) 100 mg BIDPRN PRN ORAL Constipation 02/20/19 09:49 03/22/19 09:48 Famotidine (Pepcid) 20 mg BID ORAL 02/20/19 18:00 03/13/19 22:29 02/20/19 18:41 Fluconazole (Diflucan) 200 mg DAILY ORAL 02/21/19 09:00 02/24/19 08:59 02/21/19 10:36 Gabapentin (Neurontin) 600 mg THREE TIMES A DAY ORAL 02/20/19 13:00 03/12/19 17:59 02/20/19 12:35 Guaifenesin/ Dextromethorphan (Robitussin DM Syrup) 5 ml Q6H PRN ORAL For Cough 02/20/19 09:50 03/22/19 09:49 02/21/19 00:44 Ketoconazole (Nizoral 2% Cream) 1 applic BID TOPIC 02/20/19 18:00 03/22/19 08:59 Levothyroxine Sodium (Synthroid) 25 mcg DAILY@0630 ORAL 02/21/19 06:30 03/13/19 06:29 02/21/19 06:08 Lorazepam (Ativan) 1 mg BIDPRN PRN ORAL anxiety 02/20/19 09:50 02/27/19 09:49 Losartan Potassium (Cozaar) 50 mg DAILY ORAL 02/21/19 09:00 03/22/19 08:59 02/21/19 10:35 Meloxicam (Mobic) 15 mg DAILY ORAL 02/21/19 09:00 03/22/19 08:59 Metoclopramide HCl (Reglan) 5 mg Q6H PRN IVP Nausea & Vomiting 02/20/19 09:51 03/22/19 09:50 Metronidazole 100 ml @ 100 mls/hr Q8HR IVPB 02/20/19 14:00 02/23/19 09:29 02/21/19 06:06 Mirtazapine (Remeron) 7.5 mg BEDTIME PRN ORAL SLEEP 02/20/19 21:00 03/22/19 00:14 Mirtazapine (Remeron) 15 mg BEDTIME ORAL 02/20/19 21:00 03/12/19 20:59 Morphine Sulfate (Morphine Sulfate) 4 mg Q4H PRN IVP For Pain 02/20/19 09:52 02/27/19 09:51 Oxycodone/ Acetaminophen (Percocet 10/325) 1 tab BID ORAL 02/20/19 18:00 02/27/19 08:59 02/21/19 10:37 Paroxetine HCl (Paxil) 40 mg DAILY ORAL 02/21/19 09:00 03/13/19 08:59 Patient Own Medication (Patient's Own Med) 1 ea BID ORAL 02/20/19 10:00 03/22/19 09:59 02/20/19 12:29 Patient Own Medication (Patient's Own Med) 1 ea DAILY ORAL 02/20/19 10:00 03/22/19 09:59 02/20/19 12:29 Patient Own Medication (Patient's Own Med) 1 ea DAILY ORAL 02/20/19 10:00 03/22/19 09:59 02/20/19 12:30 Polyethylene Glycol (Miralax) 17 gm HSPRN PRN ORAL Constipation 02/20/19 14:00 03/12/19 13:59 Pregabalin (Lyrica) 150 mg BID ORAL 02/20/19 18:00 03/22/19 08:59 02/21/19 10:35 Tamsulosin HCl (Flomax) 0.4 mg BID ORAL 02/20/19 18:00 03/12/19 17:59 02/20/19 18:41 Vancomycin HCl (Firvanq) 125 mg FOUR TIMES A DAY ORAL 02/20/19 13:00 02/25/19 12:59 02/21/19 10:33 Vitamin D (Vitamin D) 1,000 intlu DAILY ORAL 02/21/19 09:00 03/22/19 08:59 Oliverio Rm MD Feb 21, 2019 11:58
[2019-02-21] MEDS: D5W w/KCl 20mEq 1,000 ML IV SCH (12:27)
--- NOTE | 2019-02-21 15:21 | NUR ---
P.T Progress Notes: Pt seen this past week of therapy. Tx consisted of ther ex. standing balance training , ADL/functional mobility training, and gait/pre gait training. Pt currently require MIN-MOD A X 1 for bed mobility , MOD-MAX A x 1 for transfer mobilities. Pt able to sit unsupported at the EOB and able to partially stand using the FWW with Mod support for average time of 30 secs to 1 min. Pt able to take 3-4 tiny steps using the FWW with MOD A X 1. Mobility performance fluctuates depending on pain and endurance level. Pt is also limited bilateral hip and and knee flexion contractures however pt is highly motivated to get stronger and return to his PLOF. Will continue with POC.
--- NOTE | 2019-02-21 15:35 | Cardiac Electrophysiology PN ---
Assessment/Plan Assessment/Plan 1. Atrial fibrillation, rapid ventricular response. In SR with PACs.On Cardizem 90 mg q 8 hours and Dig 0.125. Dig level 1.1. Off anticoagulation at this time.EF 60% 2. Hypertension. On Cardizem. 3. Recurrent supraventricular tachycardia of sudden onset and termination in 160s. On Dig and Cardizem 4. Human immunodeficiency virus. 5. Generalized weakness. 6. Rectal cancer. 7. Cerebrovascular accident. 8. C Diff on Flagyl and Vanco DW puppy sitter placement pending Subjective Subjective Alert in NAD. Off tele now.RN at bedside, awaiting Hospice placement Objective Last 24 Hour Vital Signs Date Time Temp Pulse Resp B/P (MAP) Pulse Ox O2 Delivery O2 Flow Rate FiO2 02/21/19 13:21 80 100/60 02/21/19 12:00 98.9 80 19 100/60 (73) 96 02/21/19 10:36 93 02/21/19 10:35 122/74 02/21/19 09:00 Nasal Cannula 2.0 02/21/19 08:25 93 17 96 Nasal Cannula 2.0 28 02/21/19 08:25 96 Nasal Cannula 2.0 28 02/21/19 08:00 98.1 95 18 122/74 (90) 92 02/21/19 06:00 88 104/65 02/21/19 04:00 98.9 88 16 104/65 (78) 95 02/21/19 01:15 98.9 02/21/19 00:43 101.7 02/21/19 00:00 99.9 97 17 123/68 (86) 95 02/20/19 22:00 94 105/70 02/20/19 21:00 Nasal Cannula 2.0 02/20/19 20:00 98.6 94 18 105/70 (82) 94 02/20/19 19:19 98 18 98 Nasal Cannula 2.0 28 02/20/19 19:19 98 Nasal Cannula 2.0 28 02/20/19 16:03 105 122/84 02/20/19 16:00 97.6 99 19 119/81 (94) 99 Intake and Output 02/20/19 02/21/19 19:00 07:00 Intake Total 820 ml 730 ml Balance 820 ml 730 ml Intake Oral 820 ml 480 ml IV Total 250 ml # Voids 6 3 # Bowel Movements 3 Laboratory Tests Test 02/21/19 05:20 White Blood Count 10.1 K/UL (4.8-10.8) Red Blood Count 3.24 M/UL (4.70-6.10) L Hemoglobin 9.8 G/DL (14.2-18.0) L Hematocrit 29.6 % (42.0-52.0) L Mean Corpuscular Volume 91 FL (80-99) Mean Corpuscular Hemoglobin 30.1 PG (27.0-31.0) Mean Corpuscular Hemoglobin Concent 33.0 G/DL (32.0-36.0) Red Cell Distribution Width 13.6 % (11.6-14.8) Platelet Count 173 K/UL (150-450) Mean Platelet Volume 6.8 FL (6.5-10.1) Neutrophils (%) (Auto) 66.8 % (45.0-75.0) Lymphocytes (%) (Auto) 22.7 % (20.0-45.0) Monocytes (%) (Auto) 8.5 % (1.0-10.0) Eosinophils (%) (Auto) 1.4 % (0.0-3.0) Basophils (%) (Auto) 0.6 % (0.0-2.0) Sodium Level 140 MMOL/L (136-145) Potassium Level 3.9 MMOL/L (3.5-5.1) Chloride Level 110 MMOL/L (98-107) H Carbon Dioxide Level 22 MMOL/L (21-32) Anion Gap 8 mmol/L (5-15) Blood Urea Nitrogen 13 mg/dL (7-18) Creatinine 1.0 MG/DL (0.55-1.30) Estimat Glomerular Filtration Rate > 60 mL/min (>60) Glucose Level 95 MG/DL (74-106) Calcium Level 8.3 MG/DL (8.5-10.1) L Total Bilirubin 0.3 MG/DL (0.2-1.0) Aspartate Amino Transf (AST/SGOT) 20 U/L (15-37) Alanine Aminotransferase (ALT/SGPT) 40 U/L (12-78) Alkaline Phosphatase 95 U/L (46-116) Total Protein 6.2 G/DL (6.4-8.2) L Albumin 2.3 G/DL (3.4-5.0) L Globulin 3.9 g/dL Albumin/Globulin Ratio 0.6 (1.0-2.7) L Objective HEAD AND NECK: No JVD. LUNGS: Coarse rhonchi. CARDIOVASCULAR: regular S1 and S2 with no gallop ABDOMEN: Soft. EXTREMITIES: No pitting edema. Abel Mendez MD Feb 21, 2019 15:35
--- NOTE | 2019-02-21 16:31 | Infectious Diseases Prog Note ---
Assessment/Plan Assessment/Plan Assessment: Sepsis--Cdiff colitis, 1st recurrence -02/17 CXR: No acute findings. -CT abd/p: Sigmoid and rectal colonic wall thickening with some mucosal edema along with scattered small bowel loops with bowel wall thickening suggestive of enterocolitis. Duodenal wall thickening with associated fat stranding, which may share etiology with enterocolitis; however, correlation with lipase is recommended to exclude groove pancreatitis. Evidence of infectious/inflammatory small airways disease; patchy left basilar airspace consolidation raises possibility of developing pneumonia. Refluxing esophagus with distal esophageal wall thickening; correlation with recent endoscopy is recommended. -CXR: Bibasilar opacities likely representing subsegmental atelectasis. -u/a neg -BCx Neg -normal lipase and amylase -sp cx: normal resp thomas -stool cx neg Fever; recurrent Leukocytosis,SP Veda Esophagitis- -bx - no malignancy, fungal stains+ for Veda sp, neg stains for CMV, HSV -02/16 SP EGD: Severe distal esophagitis, atypical, questionable severe Veda esophagitis versus ischemic esophagitis, status post biopsy and brushing.Duodenal ulcerations. Gastritis, status post biopsy. hx of Cdiff 09/2018- - failed oral vancomycin; sp tx w/ Fidaxomicin --09/06 Cdiff toxin a/b +; repeat Cdiff neg x2 -09/06 SP Colonoscopy: proctitis -stool cx: normal thomas -Giardia ag, cryptosporidium neg Hx of UTI 08/2018 -u/a wbc 10-15, shirley neg, leuk +3; ucx >100K PROTEUS MIRABILIS ( I Levo; R Amp, bactrim, Cipro, Nitro; S Ceftriaxone) HIV/AIDS- on ARV =02/19 CD4 407 (11%) -11/19 CD4 392 (17.4%) -09/2018 182 (10.1%), VL UD -11/2017 CD4 323 Rectal CA (ongoing w/u at [facility]) CVA 2005 HTN Plan: -Cont oral vancomycin #03/17 -Cont IV Flagyl #6 as patient refusing some doses of oral vancomycin -Fluconazole #6/-14 -02/14 SP IV Vancomycin, Zosyn #4 -12/01 Sp Cefepime #14, Flagyl #14 -11/22 SP IV Vancomycin #6 -11/17 SP Zosyn x1 -09/23 SP Fidaxomicin #10 -09/13/18 SP PO Vancomycin #8 -f/u cx -Monitor CBC/CMP, temperatures Thank you for this consultation. Will continue to follow along with you. Subjective Allergies: Coded Allergies: CODEINE (Unverified Allergy, Unknown, 11/28/17) EMTRICITABINE (Verified Allergy, Unknown, anxiousness, 08/31/18) SULFAMETHOXAZOLE (Unverified Allergy, Unknown, 10/27/17) TENOFOVIR (Verified Allergy, Unknown, anxiousness, 08/31/18) TRIMETHOPRIM (Unverified Allergy, Unknown, 10/27/17) Subjective Tm 101.7 no leukcoytosis still having significant diarrhea Objective Vital Signs Last 24 Hour Vital Signs Date Time Temp Pulse Resp B/P (MAP) Pulse Ox O2 Delivery O2 Flow Rate FiO2 02/21/19 13:21 80 100/60 02/21/19 12:00 98.9 80 19 100/60 (73) 96 02/21/19 10:36 93 02/21/19 10:35 122/74 02/21/19 09:00 Nasal Cannula 2.0 02/21/19 08:25 93 17 96 Nasal Cannula 2.0 28 02/21/19 08:25 96 Nasal Cannula 2.0 28 02/21/19 08:00 98.1 95 18 122/74 (90) 92 02/21/19 06:00 88 104/65 02/21/19 04:00 98.9 88 16 104/65 (78) 95 02/21/19 01:15 98.9 02/21/19 00:43 101.7 02/21/19 00:00 99.9 97 17 123/68 (86) 95 02/20/19 22:00 94 105/70 02/20/19 21:00 Nasal Cannula 2.0 02/20/19 20:00 98.6 94 18 105/70 (82) 94 02/20/19 19:19 98 18 98 Nasal Cannula 2.0 28 02/20/19 19:19 98 Nasal Cannula 2.0 28 Height (Feet): 5 Height (Inches): 5.00 Weight (Pounds): 152 Objective GENERAL: The patient is a thin-appearing white male, in no apparent distress. HEENT: Eyes, pupils are equal and responsive to light and accommodation. Extraocular movements are intact. NECK: Supple without lymphadenopathy. CHEST: Lungs are clear to auscultation bilaterally without wheezes or rales. CARDIOVASCULAR: Regular rhythm and rate. S1 and S2 are normal without murmurs, rubs, or gallops. ABDOMEN: Soft, nontender, and nondistended. Positive bowel sounds. No evidence of hepatosplenomegaly. Currently, no rebound or guarding noted. EXTREMITIES: Negative for clubbing, cyanosis, or edema. NEUROLOGIC: Cranial nerves II through XII are grossly intact without focal deficits. Laboratory Tests Test 02/21/19 05:20 White Blood Count 10.1 K/UL (4.8-10.8) Red Blood Count 3.24 M/UL (4.70-6.10) L Hemoglobin 9.8 G/DL (14.2-18.0) L Hematocrit 29.6 % (42.0-52.0) L Mean Corpuscular Volume 91 FL (80-99) Mean Corpuscular Hemoglobin 30.1 PG (27.0-31.0) Mean Corpuscular Hemoglobin Concent 33.0 G/DL (32.0-36.0) Red Cell Distribution Width 13.6 % (11.6-14.8) Platelet Count 173 K/UL (150-450) Mean Platelet Volume 6.8 FL (6.5-10.1) Neutrophils (%) (Auto) 66.8 % (45.0-75.0) Lymphocytes (%) (Auto) 22.7 % (20.0-45.0) Monocytes (%) (Auto) 8.5 % (1.0-10.0) Eosinophils (%) (Auto) 1.4 % (0.0-3.0) Basophils (%) (Auto) 0.6 % (0.0-2.0) Sodium Level 140 MMOL/L (136-145) Potassium Level 3.9 MMOL/L (3.5-5.1) Chloride Level 110 MMOL/L (98-107) H Carbon Dioxide Level 22 MMOL/L (21-32) Anion Gap 8 mmol/L (5-15) Blood Urea Nitrogen 13 mg/dL (7-18) Creatinine 1.0 MG/DL (0.55-1.30) Estimat Glomerular Filtration Rate > 60 mL/min (>60) Glucose Level 95 MG/DL (74-106) Calcium Level 8.3 MG/DL (8.5-10.1) L Total Bilirubin 0.3 MG/DL (0.2-1.0) Aspartate Amino Transf (AST/SGOT) 20 U/L (15-37) Alanine Aminotransferase (ALT/SGPT) 40 U/L (12-78) Alkaline Phosphatase 95 U/L (46-116) Total Protein 6.2 G/DL (6.4-8.2) L Albumin 2.3 G/DL (3.4-5.0) L Globulin 3.9 g/dL Albumin/Globulin Ratio 0.6 (1.0-2.7) L Current Medications Medications (Trade) Dose Ordered Sig/Roman Route PRN Reason Start Time Stop Time Status Last Admin Dose Admin Acetaminophen (Tylenol) 650 mg Q4H PRN ORAL fever 02/20/19 09:48 03/22/19 09:47 02/21/19 00:45 Albuterol/ Ipratropium (Albuterol/ Ipratropium) 3 ml Q4HRT PRN HHN sob 02/20/19 09:49 02/25/19 09:48 Aspirin (Ecotrin) 81 mg DAILY ORAL 02/21/19 09:00 03/22/19 08:59 02/21/19 10:35 Baclofen (Lioresal) 10 mg THREE TIMES A DAY ORAL 02/20/19 13:00 03/22/19 08:59 02/21/19 13:12 Dextrose (Dextrose 50%) 25 ml Q30M PRN IV Hypoglycemia 02/20/19 09:45 03/12/19 14:05 Dextrose (Dextrose 50%) 50 ml Q30M PRN IV hypoglycemia 02/20/19 09:45 03/12/19 14:14 Dextrose/ Electrolytes 1,000 ml @ 75 mls/hr [id number] IV 02/20/19 09:47 03/22/19 09:46 02/21/19 12:27 Digoxin (Lanoxin) 0.125 mg DAILY ORAL 02/21/19 09:00 03/16/19 08:59 02/21/19 10:36 Diltiazem HCl (Cardizem) 90 mg EVERY 8 HOURS ORAL 02/20/19 14:00 03/14/19 13:59 02/20/19 16:03 Docusate Sodium (Colace) 100 mg BIDPRN PRN ORAL Constipation 02/20/19 09:49 03/22/19 09:48 Famotidine (Pepcid) 20 mg BID ORAL 02/20/19 18:00 03/13/19 22:29 02/20/19 18:41 Fluconazole (Diflucan) 200 mg DAILY ORAL 02/21/19 09:00 02/24/19 08:59 02/21/19 10:36 Gabapentin (Neurontin) 600 mg THREE TIMES A DAY ORAL 02/20/19 13:00 03/12/19 17:59 02/21/19 13:13 Guaifenesin/ Dextromethorphan (Robitussin DM Syrup) 5 ml Q6H PRN ORAL For Cough 02/20/19 09:50 03/22/19 09:49 02/21/19 00:44 Ketoconazole (Nizoral 2% Cream) 1 applic BID TOPIC 02/20/19 18:00 03/22/19 08:59 Levothyroxine Sodium (Synthroid) 25 mcg DAILY@0630 ORAL 02/21/19 06:30 03/13/19 06:29 02/21/19 06:08 Lorazepam (Ativan) 1 mg BIDPRN PRN ORAL anxiety 02/20/19 09:50 02/27/19 09:49 Losartan Potassium (Cozaar) 50 mg DAILY ORAL 02/21/19 09:00 03/22/19 08:59 02/21/19 10:35 Meloxicam (Mobic) 15 mg DAILY ORAL 02/21/19 09:00 03/22/19 08:59 Metoclopramide HCl (Reglan) 5 mg Q6H PRN IVP Nausea & Vomiting 02/20/19 09:51 03/22/19 09:50 Metronidazole 100 ml @ 100 mls/hr Q8HR IVPB 02/20/19 14:00 02/23/19 09:29 02/21/19 14:03 Mirtazapine (Remeron) 7.5 mg BEDTIME PRN ORAL SLEEP 02/20/19 21:00 03/22/19 00:14 Mirtazapine (Remeron) 15 mg BEDTIME ORAL 02/20/19 21:00 03/12/19 20:59 Morphine Sulfate (Morphine Sulfate) 4 mg Q4H PRN IVP For Pain 02/20/19 09:52 02/27/19 09:51 Oxycodone/ Acetaminophen (Percocet 10/325) 1 tab BID ORAL 02/20/19 18:00 02/27/19 08:59 02/21/19 10:37 Paroxetine HCl (Paxil) 40 mg DAILY ORAL 02/21/19 09:00 03/13/19 08:59 Patient Own Medication (Patient's Own Med) 1 ea BID ORAL 02/20/19 10:00 03/22/19 09:59 02/20/19 12:29 Patient Own Medication (Patient's Own Med) 1 ea DAILY ORAL 02/20/19 10:00 03/22/19 09:59 02/20/19 12:29 Patient Own Medication (Patient's Own Med) 1 ea DAILY ORAL 02/20/19 10:00 03/22/19 09:59 02/20/19 12:30 Polyethylene Glycol (Miralax) 17 gm HSPRN PRN ORAL Constipation 02/20/19 14:00 03/12/19 13:59 Pregabalin (Lyrica) 150 mg BID ORAL 02/20/19 18:00 03/22/19 08:59 02/21/19 10:35 Tamsulosin HCl (Flomax) 0.4 mg BID ORAL 02/20/19 18:00 03/12/19 17:59 02/20/19 18:41 Vancomycin HCl (Firvanq) 125 mg FOUR TIMES A DAY ORAL 02/20/19 13:00 02/25/19 12:59 02/21/19 14:02 Vitamin D (Vitamin D) 1,000 intlu DAILY ORAL 02/21/19 09:00 03/22/19 08:59 Miranda Cordero M.D. Feb 21, 2019 16:31
--- NOTE | 2019-02-21 16:40 | NUR ---
*-* INSURANCE *-* ALL CLINICALS AND REVIEWS [facility] BE[facility] RE[facility] [id number] F: [phone] P: [phone]
--- NOTE | 2019-02-21 16:55 | Cardiology Report ---
APPROVED REPORT EKG Measurement Heart [id number] Sinus tachycardia with premature atrial complexes and premature ventricular complexes or fusion complexes Left anterior fascicular block Abnormal ECG
--- NOTE | 2019-02-21 19:35 | NUR ---
NURSE NOTES: Patient is asleep in bed, no signs of pain, on O2 at 2 LPM via nasal cannula. Call light and needs in reach. Bed in lowest position, lock engaged and alarm on. Will continue to monitor.
--- NOTE | 2019-02-21 19:39 | NUR ---
HAND-OFF: Report given to
[2019-02-22] MEDS: D5W w/KCl 20mEq 1,000 ML IV SCH ×2 (03:59→14:45)
[2019-02-22 04:00] VITALS: BP 121/71
[2019-02-22] MEDS: dilTIAZem HCl 90mg tab ORAL SCH ×3 (06:00→22:00)
[2019-02-22] MEDS: Levothyroxine 25mcg tab ORAL SCH (06:30)
[2019-02-22 07:36] LABS: BASOPHILS % (AUTO) 0.4 % (0.0-2.0); EOSINOPHILS % (AUTO) 1.6 % (0.0-3.0); HEMATOCRIT 33.8 % (42.0-52.0); LYMPHOCYTES % (AUTO) 26.6 % (20.0-45.0); MEAN CORPUSCULAR VOLUME 93 FL (80-99); NEUTROPHILS % (AUTO) 63.4 % (45.0-75.0); PLATELET COUNT 199 K/UL (150-450); RED BLOOD COUNT 3.63 M/UL (4.70-6.10); RED CELL DISTRIBUTION WIDTH 14.1 % (11.6-14.8); WHITE BLOOD COUNT 10.5 K/UL (4.8-10.8)
[2019-02-22 07:41] LABS: ANION GAP 6 mmol/L (5-15); BLOOD UREA NITROGEN 12 mg/dL (7-18); CALCIUM 8.8 MG/DL (8.5-10.1); CARBON DIOXIDE 23 MMOL/L (21-32); CHLORIDE 108 MMOL/L (98-107); POTASSIUM 4.3 MMOL/L (3.5-5.1); SODIUM 137 MMOL/L (136-145)
[2019-02-22 08:00] VITALS: BP 137/67
--- NOTE | 2019-02-22 08:57 | NUR ---
NURSE NOTES: Patient awake, alert x3, confused; nasal cannula 2 Liter, no sing of distress and shortness of breath; no sing of chest pain; Rectal Tube in place; IV LAC 20G fluid running; side rails up x2, breaks engaged, bed at lowest position; call light within reach; will keep monitoring.
--- NOTE | 2019-02-22 08:59 | GI Progress Note ---
Assessment/Plan Problems: (1) Veda infection ICD Codes: B37.9 - Candidiasis, unspecified SNOMED: 42857065 (2) Duodenal ulcer ICD Codes: K26.9 - Duodenal ulcer, unspecified as acute or chronic, without hemorrhage or perforation SNOMED: 40104010 (3) Anemia ICD Codes: D64.9 - Anemia, unspecified SNOMED: 918847623 Status: stable Status Narrative Discussed with Dr. Germain. Assessment/Plan SUMMARY OF FINDINGS: 1. Severe distal esophagitis, atypical, severe Veda esophagitis. 2. Duodenal ulcerations. 3. Gastritis, status post biopsy. RECOMMENDATIONS: 1. Follow up pathology and treat accordingly. 2. The patient is to be on a PPI given duodenal ulceration. 3. We will start fluconazole for Veda esophagitis, pending results of the brushing and biopsy. advance to soft diet follow labs dc planning The patient was seen and examined at bedside and all new and available data was reviewed in the patients chart. I agree with the above findings, impression and plan. (Patient seen earlier today. Signature stamp does not reflect patient encounter time.). - Dejan Germain MD Subjective Subjective tolerating diet no report N/V Objective Last 24 Hour Vital Signs Date Time Temp Pulse Resp B/P (MAP) Pulse Ox O2 Delivery O2 Flow Rate FiO2 02/22/19 06:00 80 121/71 02/22/19 04:00 98.4 80 20 121/71 (88) 95 02/21/19 23:54 98.5 76 18 107/64 (78) 02/21/19 21:08 73 90/57 02/21/19 21:00 Nasal Cannula 2.0 02/21/19 21:00 98.1 73 18 90/57 (68) 96 02/21/19 19:43 95 Nasal Cannula 2.0 28 02/21/19 19:43 94 18 95 Nasal Cannula 2.0 28 02/21/19 16:00 98.3 94 18 113/50 (71) 95 02/21/19 13:21 80 100/60 02/21/19 12:00 98.9 80 19 100/60 (73) 96 02/21/19 10:36 93 02/21/19 10:35 122/74 02/21/19 09:00 Nasal Cannula 2.0 Intake and Output 02/21/19 02/22/19 18:59 06:59 Intake Total 800 ml 650 ml Balance 800 ml 650 ml Intake Oral 800 ml 100 ml IV Total 550 ml # Voids 6 2 # Bowel Movements 2 Laboratory Tests Test 02/22/19 05:40 White Blood Count 10.5 K/UL (4.8-10.8) Red Blood Count 3.63 M/UL (4.70-6.10) L Hemoglobin 11.0 G/DL (14.2-18.0) L Hematocrit 33.8 % (42.0-52.0) L Mean Corpuscular Volume 93 FL (80-99) Mean Corpuscular Hemoglobin 30.4 PG (27.0-31.0) Mean Corpuscular Hemoglobin Concent 32.7 G/DL (32.0-36.0) Red Cell Distribution Width 14.1 % (11.6-14.8) Platelet Count 199 K/UL (150-450) Mean Platelet Volume 6.8 FL (6.5-10.1) Neutrophils (%) (Auto) 63.4 % (45.0-75.0) Lymphocytes (%) (Auto) 26.6 % (20.0-45.0) Monocytes (%) (Auto) 8.0 % (1.0-10.0) Eosinophils (%) (Auto) 1.6 % (0.0-3.0) Basophils (%) (Auto) 0.4 % (0.0-2.0) Sodium Level 137 MMOL/L (136-145) Potassium Level 4.3 MMOL/L (3.5-5.1) Chloride Level 108 MMOL/L (98-107) H Carbon Dioxide Level 23 MMOL/L (21-32) Anion Gap 6 mmol/L (5-15) Blood Urea Nitrogen 12 mg/dL (7-18) Creatinine 1.0 MG/DL (0.55-1.30) Estimat Glomerular Filtration Rate > 60 mL/min (>60) Glucose Level 89 MG/DL (74-106) Calcium Level 8.8 MG/DL (8.5-10.1) Height (Feet): 5 Height (Inches): 5.00 Weight (Pounds): 152 General Appearance: WD/WN, no apparent distress, alert Cardiovascular: normal rate Respiratory/Chest: normal breath sounds, no respiratory distress Abdominal Exam: normal bowel sounds, non tender, soft Extremities: normal range of motion, non-tender Jasen Brink NP Feb 22, 2019 08:59
[2019-02-22] MEDS: Tamsulosin 0.4mg cap ORAL SCH ×2 (09:00→17:38)
[2019-02-22] MEDS: Vancomycin oral 125mg/2.5ml ORAL SCH ×4 (09:00→20:08)
[2019-02-22] MEDS: PARoxetine 20mg tab ORAL SCH (09:00)
[2019-02-22] MEDS: Aspirin EC 81mg tab ORAL SCH (09:40)
[2019-02-22] MEDS: Meloxicam 15 MG TAB ORAL SCH (09:40)
[2019-02-22] MEDS: Vitamin D 1000 IU Tab ORAL SCH (09:40)
[2019-02-22] MEDS: Losartan 50mg tab ORAL SCH (09:41)
[2019-02-22] MEDS: Lyrica 75mg cap ORAL SCH ×2 (09:42→17:37)
[2019-02-22] MEDS: Digoxin 0.125mg tab ORAL SCH (09:44)
[2019-02-22] MEDS: Fluconazole 100mg tab ORAL SCH (09:45)
[2019-02-22] MEDS: Guaifenesin/DM 10ml syrup ORAL PRN (09:54)
--- NOTE | 2019-02-22 10:27 | NUR ---
*-* INSURANCE *-* ALL CLINICALS AND REVIEWS HAVE BEEN [facility] RE[facility]# [id number] F: [phone] P: [phone]
--- NOTE | 2019-02-22 10:55 | NUR ---
SPEECH PATHOLOGY/WEEKLY SUMMARY: S: PATIENT WAS CLEARED FOR ST INTERVENTION BY RN MERNA HE IS BEING SEEN FOR DYSPHAGIA (SEE EVAL/VIDEO FINDINGS FOR DETAILS) PATIENT OPPOSITIONAL TO RECOMMENDED DIET OF LIQUIDS AND INSISTS ON SOFT/EASY CHEW SOLIDS PATIENT SEEN SITTING UPRIGHT IN BED. HE WAS ALERT BUT CONFUSED IN MENTATION GOAL MET RELATIVE TO STAFF TRAINING RE: [employer]IR[employer]IONS RN ADVISED TO MONITORS PATIENTS PULMONARY STATUS CLOSELY FOR INCREASED CONGESTION. CXR OF 02/17 NEGATIVE FOR INFILTRATE RECENT EGD FINDING: SEVERE DISTAL ESOPHAGEAL GASTRITIS, A/P CONTINUE PER PLAN
[2019-02-22 12:00] VITALS: BP 108/75
[2019-02-22] MEDS ORDERED: FLOMAX0.4 MG ORAL (12:09)
[2019-02-22] MEDS ORDERED: CARDIZEM90 MG ORAL (12:09)
[2019-02-22] MEDS ORDERED: PAROXETINE HCL20 MG ORAL (12:09)
[2019-02-22] MEDS ORDERED: Digoxin ORAL (12:09)
[2019-02-22] MEDS ORDERED: DIFLUCAN100 MG ORAL (12:09)
[2019-02-22] MEDS ORDERED: GABAPENTIN600 MG ORAL (12:09)
[2019-02-22] MEDS ORDERED: FAMOTIDINE20 MG ORAL (12:09)
[2019-02-22] MEDS ORDERED: METRONIDAZOLE500 MG ORAL (12:10)
--- NOTE | 2019-02-22 12:20 | Cardiology Report ---
APPROVED REPORT EKG Measurement Heart [id number] [place] 184P88 [id number] Sinus tachycardia Incomplete right bundle branch block Nonspecific ST and T wave abnormality Abnormal ECG
--- NOTE | 2019-02-22 13:51 | NUR ---
CASE MANAGEMENT:REVIEW 02/22/19 SI: SEPSIS. PNA. C-DIFF COLITIS. ESOPHAGITIS 98.1 98 18 108/75 95% ON 2LNC IS: IV FLAGYL Q8HRS VANCOMYCIN PO QID DIFLUCAN PO QD ASA PO QD DIGOXIN PO QD COZAAR PO QD MOBIC PO QD PAXIL PO QD : NOW ON MED/SURG UNIT [facility] DCP: PLAN: DISCHARGE CANCELLED
--- NOTE | 2019-02-22 15:11 | NUR ---
DISCHARGE PLANNING THIS TOWER EXCAVATOR OPERATOR CALLED AND SPOKE WITH BARRIE VAZ LINCH TITLE COORDINATOR, HONG T: [phone] PER HONG THEY CANNOT TAKE PATIENT BACK. THEY CANNOT MEET HIS NEEDS. *ONLY OPTION IS SNF PLACEMENT MATTHEW DAMON DECLINED TO ACCEPT CHAR HDZ DECLINED TO ACCEPT FOLLOWING FACILITIES FROM CONTRACTED SNF LIST : [facility] [address] [facility] [id number] [facility] [id number] [place]
[2019-02-22 16:00] VITALS: BP 115/73
--- NOTE | 2019-02-22 17:09 | Cardiac Electrophysiology PN ---
Assessment/Plan Assessment/Plan 1. Atrial fibrillation, rapid ventricular response. In SR with PACs.On Cardizem 90 mg q 8 hours and Dig 0.125. Dig level 1.1.EF 60% 2. Hypertension. On Cardizem. 3. Recurrent supraventricular tachycardia of sudden onset and termination in 160s. On Dig and Cardizem 4. Human immunodeficiency virus. 5. Generalized weakness. 6. Rectal cancer. 7. Cerebrovascular accident. 8. C Diff DW RN Subjective Subjective Alert in NAD, awaiting Hospice placement Objective Last 24 Hour Vital Signs Date Time Temp Pulse Resp B/P (MAP) Pulse Ox O2 Delivery O2 Flow Rate FiO2 02/22/19 16:00 97.8 99 18 115/73 (87) 95 02/22/19 12:00 98.1 98 18 108/75 (86) 95 02/22/19 10:12 98.9 02/22/19 10:12 98.9 02/22/19 09:44 105 02/22/19 09:41 137/67 02/22/19 09:00 Nasal Cannula 2.0 02/22/19 08:00 98.9 105 19 137/67 (90) 97 02/22/19 07:40 96 Nasal Cannula 2.0 28 02/22/19 07:40 87 18 97 Nasal Cannula 2.0 28 02/22/19 06:00 80 121/71 02/22/19 04:00 98.4 80 20 121/71 (88) 95 02/21/19 23:54 98.5 76 18 107/64 (78) 02/21/19 21:08 73 90/57 02/21/19 21:00 Nasal Cannula 2.0 02/21/19 21:00 98.1 73 18 90/57 (68) 96 02/21/19 19:43 95 Nasal Cannula 2.0 28 02/21/19 19:43 94 18 95 Nasal Cannula 2.0 28 Intake and Output 02/21/19 02/22/19 19:00 07:00 Intake Total 875 ml 650 ml Balance 875 ml 650 ml Intake Oral 800 ml 100 ml IV Total 75 ml 550 ml # Voids 6 2 # Bowel Movements 2 Laboratory Tests Test 02/22/19 05:40 White Blood Count 10.5 K/UL (4.8-10.8) Red Blood Count 3.63 M/UL (4.70-6.10) L Hemoglobin 11.0 G/DL (14.2-18.0) L Hematocrit 33.8 % (42.0-52.0) L Mean Corpuscular Volume 93 FL (80-99) Mean Corpuscular Hemoglobin 30.4 PG (27.0-31.0) Mean Corpuscular Hemoglobin Concent 32.7 G/DL (32.0-36.0) Red Cell Distribution Width 14.1 % (11.6-14.8) Platelet Count 199 K/UL (150-450) Mean Platelet Volume 6.8 FL (6.5-10.1) Neutrophils (%) (Auto) 63.4 % (45.0-75.0) Lymphocytes (%) (Auto) 26.6 % (20.0-45.0) Monocytes (%) (Auto) 8.0 % (1.0-10.0) Eosinophils (%) (Auto) 1.6 % (0.0-3.0) Basophils (%) (Auto) 0.4 % (0.0-2.0) Sodium Level 137 MMOL/L (136-145) Potassium Level 4.3 MMOL/L (3.5-5.1) Chloride Level 108 MMOL/L (98-107) H Carbon Dioxide Level 23 MMOL/L (21-32) Anion Gap 6 mmol/L (5-15) Blood Urea Nitrogen 12 mg/dL (7-18) Creatinine 1.0 MG/DL (0.55-1.30) Estimat Glomerular Filtration Rate > 60 mL/min (>60) Glucose Level 89 MG/DL (74-106) Calcium Level 8.8 MG/DL (8.5-10.1) Objective HEAD AND NECK: No JVD. LUNGS: Coarse rhonchi. CARDIOVASCULAR: regular S1 and S2 with no gallop ABDOMEN: Soft. EXTREMITIES: No pitting edema. Abel Mendez MD Feb 22, 2019 17:09
--- NOTE | 2019-02-22 17:56 | Internal Med Progress Note ---
Subjective Date of Service: Feb 22, 2019 Physician Name Trey Whitaker Attending Physician Carlos Barragan MD Current Medications Medications (Trade) Dose Ordered Sig/Roman Route PRN Reason Start Time Stop Time Status Last Admin Dose Admin Acetaminophen (Tylenol) 650 mg Q4H PRN ORAL fever 02/20/19 09:48 03/22/19 09:47 02/21/19 00:45 Albuterol/ Ipratropium (Albuterol/ Ipratropium) 3 ml Q4HRT PRN HHN sob 02/20/19 09:49 02/25/19 09:48 Aspirin (Ecotrin) 81 mg DAILY ORAL 02/21/19 09:00 03/22/19 08:59 02/22/19 09:40 Baclofen (Lioresal) 10 mg THREE TIMES A DAY ORAL 02/20/19 13:00 03/22/19 08:59 02/21/19 18:35 Dextrose (Dextrose 50%) 25 ml Q30M PRN IV Hypoglycemia 02/20/19 09:45 03/12/19 14:05 Dextrose (Dextrose 50%) 50 ml Q30M PRN IV hypoglycemia 02/20/19 09:45 03/12/19 14:14 Dextrose/ Electrolytes 1,000 ml @ 75 mls/hr [id number] IV 02/20/19 09:47 03/22/19 09:46 02/22/19 14:45 Digoxin (Lanoxin) 0.125 mg DAILY ORAL 02/21/19 09:00 03/16/19 08:59 02/22/19 09:44 Diltiazem HCl (Cardizem) 90 mg EVERY 8 HOURS ORAL 02/20/19 14:00 03/14/19 13:59 02/20/19 16:03 Docusate Sodium (Colace) 100 mg BIDPRN PRN ORAL Constipation 02/20/19 09:49 03/22/19 09:48 Famotidine (Pepcid) 20 mg BID ORAL 02/20/19 18:00 03/13/19 22:29 02/22/19 17:35 Fluconazole (Diflucan) 200 mg DAILY ORAL 02/21/19 09:00 02/24/19 08:59 02/22/19 09:45 Gabapentin (Neurontin) 600 mg THREE TIMES A DAY ORAL 02/20/19 13:00 03/12/19 17:59 02/22/19 09:43 Guaifenesin/ Dextromethorphan (Robitussin DM Syrup) 5 ml Q6H PRN ORAL For Cough 02/20/19 09:50 03/22/19 09:49 02/22/19 09:54 Ketoconazole (Nizoral 2% Cream) 1 applic BID TOPIC 02/20/19 18:00 03/22/19 08:59 02/22/19 17:37 Levothyroxine Sodium (Synthroid) 25 mcg DAILY@0630 ORAL 02/21/19 06:30 03/13/19 06:29 02/21/19 06:08 Lorazepam (Ativan) 1 mg BIDPRN PRN ORAL anxiety 02/20/19 09:50 02/27/19 09:49 Losartan Potassium (Cozaar) 50 mg DAILY ORAL 02/21/19 09:00 03/22/19 08:59 02/22/19 09:41 Meloxicam (Mobic) 15 mg DAILY ORAL 02/21/19 09:00 03/22/19 08:59 02/22/19 09:40 Metoclopramide HCl (Reglan) 5 mg Q6H PRN IVP Nausea & Vomiting 02/20/19 09:51 03/22/19 09:50 Metronidazole 100 ml @ 100 mls/hr Q8HR IVPB 02/20/19 14:00 03/01/19 13:59 02/22/19 14:44 Mirtazapine (Remeron) 7.5 mg BEDTIME PRN ORAL SLEEP 02/20/19 21:00 03/22/19 00:14 Mirtazapine (Remeron) 15 mg BEDTIME ORAL 02/20/19 21:00 03/12/19 20:59 02/21/19 21:08 Morphine Sulfate (Morphine Sulfate) 4 mg Q4H PRN IVP For Pain 02/20/19 09:52 02/27/19 09:51 Oxycodone/ Acetaminophen (Percocet 10/325) 1 tab BID ORAL 02/20/19 18:00 02/27/19 08:59 02/22/19 17:36 Paroxetine HCl (Paxil) 40 mg DAILY ORAL 02/21/19 09:00 03/13/19 08:59 Patient Own Medication (Patient's Own Med) 1 ea BID ORAL 02/20/19 10:00 03/22/19 09:59 02/22/19 17:35 Patient Own Medication (Patient's Own Med) 1 ea DAILY ORAL 02/20/19 10:00 03/22/19 09:59 02/20/19 12:29 Patient Own Medication (Patient's Own Med) 1 ea DAILY ORAL 02/20/19 10:00 03/22/19 09:59 02/20/19 12:30 Polyethylene Glycol (Miralax) 17 gm HSPRN PRN ORAL Constipation 02/20/19 14:00 03/12/19 13:59 Pregabalin (Lyrica) 150 mg BID ORAL 02/20/19 18:00 03/22/19 08:59 02/22/19 17:37 Tamsulosin HCl (Flomax) 0.4 mg BID ORAL 02/20/19 18:00 03/12/19 17:59 02/20/19 18:41 Vancomycin HCl (Firvanq) 125 mg FOUR TIMES A DAY ORAL 02/20/19 13:00 02/25/19 12:59 02/22/19 17:38 Vitamin D (Vitamin D) 1,000 intlu DAILY ORAL 02/21/19 09:00 03/22/19 08:59 02/22/19 09:40 Allergies: Coded Allergies: CODEINE (Unverified Allergy, Unknown, 11/28/17) EMTRICITABINE (Verified Allergy, Unknown, anxiousness, 08/31/18) SULFAMETHOXAZOLE (Unverified Allergy, Unknown, 10/27/17) TENOFOVIR (Verified Allergy, Unknown, anxiousness, 08/31/18) TRIMETHOPRIM (Unverified Allergy, Unknown, 10/27/17) ROS Limited/Unobtainable: No Constitutional: Reports: no symptoms HEENT: Reports: no symptoms Cardiovascular: Reports: no symptoms Respiratory: Reports: no symptoms Gastrointestinal/Abdominal: Reports: no symptoms Genitourinary: Reports: no symptoms 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: Reports: no symptoms Subjective 68 YO M admitted with gen weakness. Now C.Diff diarrhea. S/P endoscopy . Cover for Int Med-Dr Barragan. Await SNF placement Objective Last Vital Signs Date Time Temp Pulse Resp B/P (MAP) Pulse Ox O2 Delivery O2 Flow Rate FiO2 02/22/19 16:00 97.8 99 18 115/73 (87) 95 02/22/19 09:00 Nasal Cannula 2.0 02/22/19 07:40 28 Laboratory Tests Test 02/22/19 05:40 White Blood Count 10.5 K/UL (4.8-10.8) Red Blood Count 3.63 M/UL (4.70-6.10) L Hemoglobin 11.0 G/DL (14.2-18.0) L Hematocrit 33.8 % (42.0-52.0) L Mean Corpuscular Volume 93 FL (80-99) Mean Corpuscular Hemoglobin 30.4 PG (27.0-31.0) Mean Corpuscular Hemoglobin Concent 32.7 G/DL (32.0-36.0) Red Cell Distribution Width 14.1 % (11.6-14.8) Platelet Count 199 K/UL (150-450) Mean Platelet Volume 6.8 FL (6.5-10.1) Neutrophils (%) (Auto) 63.4 % (45.0-75.0) Lymphocytes (%) (Auto) 26.6 % (20.0-45.0) Monocytes (%) (Auto) 8.0 % (1.0-10.0) Eosinophils (%) (Auto) 1.6 % (0.0-3.0) Basophils (%) (Auto) 0.4 % (0.0-2.0) Sodium Level 137 MMOL/L (136-145) Potassium Level 4.3 MMOL/L (3.5-5.1) Chloride Level 108 MMOL/L (98-107) H Carbon Dioxide Level 23 MMOL/L (21-32) Anion Gap 6 mmol/L (5-15) Blood Urea Nitrogen 12 mg/dL (7-18) Creatinine 1.0 MG/DL (0.55-1.30) Estimat Glomerular Filtration Rate > 60 mL/min (>60) Glucose Level 89 MG/DL (74-106) Calcium Level 8.8 MG/DL (8.5-10.1) Intake and Output 02/21/19 02/22/19 19:00 07:00 Intake Total 875 ml 650 ml Balance 875 ml 650 ml Intake Oral 800 ml 100 ml IV Total 75 ml 550 ml # Voids 6 2 # Bowel Movements 2 Objective PHYSICAL EXAMINATION: GENERAL: The patient is a thin-appearing white male, in no apparent distress. HEENT: Eyes, pupils are equal and responsive to light and accommodation. Extraocular movements are intact. NECK: Supple without lymphadenopathy. CHEST: Lungs are clear to auscultation bilaterally without wheezes or rales. CARDIOVASCULAR: Regular rhythm and rate. S1 and S2 are normal without murmurs, rubs, or gallops. ABDOMEN: Soft, nontender, and nondistended. Positive bowel sounds. No evidence of hepatosplenomegaly. Currently, no rebound or guarding noted. EXTREMITIES: Negative for clubbing, cyanosis, or edema. RECTAL/GENITAL: Not performed. NEUROLOGIC: Cranial nerves II through XII are grossly intact without focal deficits. Assessment/Plan Assessment/Plan ASSESSMENT: This is an 68-year-old white male. 1. Generalized weakness. 2. Hypertension. 3. Hypothyroidism. 4. Rectal cancer. 5. Cerebrovascular disease. 6. HIV. 7. Paroxysmal supraventricular tachycardia. 8. Bibasilar atelectasis 9. hypokalemia 10. Clostridium dificile diarrhea 11. pneumonia 12. dysphagia/esophagitis TREATMENT: 1. Generalized weakness. Generalized weakness may be due to deconditioning- see physical therapy note. 2. Hypertension. Continue amlodipine, losartan, and metoprolol as above. 3. Hypothyroidism. Continue Levoxyl as above. 4. Rectal cancer. The patient is followed at [facility]. 5. History of cerebrovascular accident. 6. HIV. Continue HAART as above. 7. Paroxysmal supraventricular tachycardia. Cardiology consultation is pending with Dr Mendez 8. Await CT chest 9. Replace K+ 10. CT abdomen=enterocolitis. C.Diff POSITIVE. Start vanco 11. ABX=IV flagyl and oral vanco 12. ID consult=Dr Cordero 13. Discharge planning: custodial fac 14. S/P endoscopy 02/16/19=esophagitis Trey Whitaker MD Feb 22, 2019 17:56
--- NOTE | 2019-02-22 18:18 | Infectious Diseases Prog Note ---
Assessment/Plan Assessment/Plan Assessment: Sepsis--Cdiff colitis, 1st recurrence ; improving -02/17 CXR: No acute findings. -CT abd/p: Sigmoid and rectal colonic wall thickening with some mucosal edema along with scattered small bowel loops with bowel wall thickening suggestive of enterocolitis. Duodenal wall thickening with associated fat stranding, which may share etiology with enterocolitis; however, correlation with lipase is recommended to exclude groove pancreatitis. Evidence of infectious/inflammatory small airways disease; patchy left basilar airspace consolidation raises possibility of developing pneumonia. Refluxing esophagus with distal esophageal wall thickening; correlation with recent endoscopy is recommended. -CXR: Bibasilar opacities likely representing subsegmental atelectasis. -u/a neg -BCx Neg -normal lipase and amylase -sp cx: normal resp thomas -stool cx neg Fever; recurrent; improving Leukocytosis,SP Veda Esophagitis- -bx - no malignancy, fungal stains+ for Veda sp, neg stains for CMV, HSV -/ SP EGD: Severe distal esophagitis, atypical, questionable severe Veda esophagitis versus ischemic esophagitis, status post biopsy and brushing.Duodenal ulcerations. Gastritis, status post biopsy. hx of Cdiff 09/2018- - failed oral vancomycin; sp tx w/ Fidaxomicin --09/06 Cdiff toxin a/b +; repeat Cdiff neg x2 -09/06 SP Colonoscopy: proctitis -stool cx: normal thomas -Giardia ag, cryptosporidium neg Hx of UTI 08/2018 -u/a wbc 10-15, shirley neg, leuk +3; ucx >100K PROTEUS MIRABILIS ( I Levo; R Amp, bactrim, Cipro, Nitro; S Ceftriaxone) HIV/AIDS- on ARV =02/19 CD4 407 (11%) -11/19 CD4 392 (17.4%) -09/2018 182 (10.1%), VL UD -11/2017 CD4 323 Rectal CA (ongoing w/u at [facility]) CVA 2004 HTN Plan: -Cont oral vancomycin #04/16 -Cont IV Flagyl #7 as patient refusing some doses of oral vancomycin -Fluconazole #7/-14 -02/14 SP IV Vancomycin, Zosyn #4 -12/01 Sp Cefepime #14, Flagyl #14 -11/22 SP IV Vancomycin #6 -11/17 SP Zosyn x1 -09/23 SP Fidaxomicin #10 -09/13/18 SP PO Vancomycin #8 -f/u cx -Monitor CBC/CMP, temperatures Thank you for this consultation. Will continue to follow along with you. Subjective Allergies: Coded Allergies: CODEINE (Unverified Allergy, Unknown, 11/28/17) EMTRICITABINE (Verified Allergy, Unknown, anxiousness, 08/31/18) SULFAMETHOXAZOLE (Unverified Allergy, Unknown, 10/27/17) TENOFOVIR (Verified Allergy, Unknown, anxiousness, 08/31/18) TRIMETHOPRIM (Unverified Allergy, Unknown, 10/27/17) Subjective afebrile >24hrs no leukcoytosis no diarrhea output on Rectal tube today Objective Vital Signs Last 24 Hour Vital Signs Date Time Temp Pulse Resp B/P (MAP) Pulse Ox O2 Delivery O2 Flow Rate FiO2 02/22/19 18:06 97.8 02/22/19 18:06 97.8 02/22/19 16:00 97.8 99 18 115/73 (87) 95 02/22/19 12:00 98.1 98 18 108/75 (86) 95 02/22/19 09:44 105 02/22/19 09:41 137/67 02/22/19 09:00 Nasal Cannula 2.0 02/22/19 08:00 98.9 105 19 137/67 (90) 97 02/22/19 07:40 96 Nasal Cannula 2.0 28 02/22/19 07:40 87 18 97 Nasal Cannula 2.0 28 02/22/19 06:00 80 121/71 02/22/19 04:00 98.4 80 20 121/71 (88) 95 02/21/19 23:54 98.5 76 18 107/64 (78) 02/21/19 21:08 73 90/57 02/21/19 21:00 Nasal Cannula 2.0 02/21/19 21:00 98.1 73 18 90/57 (68) 96 02/21/19 19:43 95 Nasal Cannula 2.0 28 02/21/19 19:43 94 18 95 Nasal Cannula 2.0 28 Height (Feet): 5 Height (Inches): 5.00 Weight (Pounds): 152 Objective GENERAL: The patient is a thin-appearing white male, in no apparent distress. HEENT: Eyes, pupils are equal and responsive to light and accommodation. Extraocular movements are intact. NECK: Supple without lymphadenopathy. CHEST: Lungs are clear to auscultation bilaterally without wheezes or rales. CARDIOVASCULAR: Regular rhythm and rate. S1 and S2 are normal without murmurs, rubs, or gallops. ABDOMEN: Soft, nontender, and nondistended. Positive bowel sounds. No evidence of hepatosplenomegaly. Currently, no rebound or guarding noted. EXTREMITIES: Negative for clubbing, cyanosis, or edema. NEUROLOGIC: Cranial nerves II through XII are grossly intact without focal deficits. Laboratory Tests Test 02/22/19 05:40 White Blood Count 10.5 K/UL (4.8-10.8) Red Blood Count 3.63 M/UL (4.70-6.10) L Hemoglobin 11.0 G/DL (14.2-18.0) L Hematocrit 33.8 % (42.0-52.0) L Mean Corpuscular Volume 93 FL (80-99) Mean Corpuscular Hemoglobin 30.4 PG (27.0-31.0) Mean Corpuscular Hemoglobin Concent 32.7 G/DL (32.0-36.0) Red Cell Distribution Width 14.1 % (11.6-14.8) Platelet Count 199 K/UL (150-450) Mean Platelet Volume 6.8 FL (6.5-10.1) Neutrophils (%) (Auto) 63.4 % (45.0-75.0) Lymphocytes (%) (Auto) 26.6 % (20.0-45.0) Monocytes (%) (Auto) 8.0 % (1.0-10.0) Eosinophils (%) (Auto) 1.6 % (0.0-3.0) Basophils (%) (Auto) 0.4 % (0.0-2.0) Sodium Level 137 MMOL/L (136-145) Potassium Level 4.3 MMOL/L (3.5-5.1) Chloride Level 108 MMOL/L (98-107) H Carbon Dioxide Level 23 MMOL/L (21-32) Anion Gap 6 mmol/L (5-15) Blood Urea Nitrogen 12 mg/dL (7-18) Creatinine 1.0 MG/DL (0.55-1.30) Estimat Glomerular Filtration Rate > 60 mL/min (>60) Glucose Level 89 MG/DL (74-106) Calcium Level 8.8 MG/DL (8.5-10.1) Current Medications Medications (Trade) Dose Ordered Sig/Roman Route PRN Reason Start Time Stop Time Status Last Admin Dose Admin Acetaminophen (Tylenol) 650 mg Q4H PRN ORAL fever 02/20/19 09:48 03/22/19 09:47 02/21/19 00:45 Albuterol/ Ipratropium (Albuterol/ Ipratropium) 3 ml Q4HRT PRN HHN sob 02/20/19 09:49 02/25/19 09:48 Aspirin (Ecotrin) 81 mg DAILY ORAL 02/21/19 09:00 03/22/19 08:59 02/22/19 09:40 Baclofen (Lioresal) 10 mg THREE TIMES A DAY ORAL 02/20/19 13:00 03/22/19 08:59 02/21/19 18:35 Dextrose (Dextrose 50%) 25 ml Q30M PRN IV Hypoglycemia 02/20/19 09:45 03/12/19 14:05 Dextrose (Dextrose 50%) 50 ml Q30M PRN IV hypoglycemia 02/20/19 09:45 03/12/19 14:14 Dextrose/ Electrolytes 1,000 ml @ 75 mls/hr [id number] IV 02/20/19 09:47 03/22/19 09:46 02/22/19 14:45 Digoxin (Lanoxin) 0.125 mg DAILY ORAL 02/21/19 09:00 03/16/19 08:59 02/22/19 09:44 Diltiazem HCl (Cardizem) 90 mg EVERY 8 HOURS ORAL 02/20/19 14:00 03/14/19 13:59 02/20/19 16:03 Docusate Sodium (Colace) 100 mg BIDPRN PRN ORAL Constipation 02/20/19 09:49 03/22/19 09:48 Famotidine (Pepcid) 20 mg BID ORAL 02/20/19 18:00 03/13/19 22:29 02/22/19 17:35 Fluconazole (Diflucan) 200 mg DAILY ORAL 02/21/19 09:00 02/24/19 08:59 02/22/19 09:45 Gabapentin (Neurontin) 600 mg THREE TIMES A DAY ORAL 02/20/19 13:00 03/12/19 17:59 02/22/19 09:43 Guaifenesin/ Dextromethorphan (Robitussin DM Syrup) 5 ml Q6H PRN ORAL For Cough 02/20/19 09:50 03/22/19 09:49 02/22/19 09:54 Ketoconazole (Nizoral 2% Cream) 1 applic BID TOPIC 02/20/19 18:00 03/22/19 08:59 02/22/19 17:37 Levothyroxine Sodium (Synthroid) 25 mcg DAILY@0630 ORAL 02/21/19 06:30 03/13/19 06:29 02/21/19 06:08 Lorazepam (Ativan) 1 mg BIDPRN PRN ORAL anxiety 02/20/19 09:50 02/27/19 09:49 Losartan Potassium (Cozaar) 50 mg DAILY ORAL 02/21/19 09:00 03/22/19 08:59 02/22/19 09:41 Meloxicam (Mobic) 15 mg DAILY ORAL 02/21/19 09:00 03/22/19 08:59 02/22/19 09:40 Metoclopramide HCl (Reglan) 5 mg Q6H PRN IVP Nausea & Vomiting 02/20/19 09:51 03/22/19 09:50 Metronidazole 100 ml @ 100 mls/hr Q8HR IVPB 02/20/19 14:00 03/01/19 13:59 02/22/19 14:44 Mirtazapine (Remeron) 7.5 mg BEDTIME PRN ORAL SLEEP 02/20/19 21:00 03/22/19 00:14 Mirtazapine (Remeron) 15 mg BEDTIME ORAL 02/20/19 21:00 03/12/19 20:59 02/21/19 21:08 Morphine Sulfate (Morphine Sulfate) 4 mg Q4H PRN IVP For Pain 02/20/19 09:52 02/27/19 09:51 Oxycodone/ Acetaminophen (Percocet 10/325) 1 tab BID ORAL 02/20/19 18:00 02/27/19 08:59 02/22/19 17:36 Paroxetine HCl (Paxil) 40 mg DAILY ORAL 02/21/19 09:00 03/13/19 08:59 Patient Own Medication (Patient's Own Med) 1 ea BID ORAL 02/20/19 10:00 03/22/19 09:59 02/22/19 17:35 Patient Own Medication (Patient's Own Med) 1 ea DAILY ORAL 02/20/19 10:00 03/22/19 09:59 02/20/19 12:29 Patient Own Medication (Patient's Own Med) 1 ea DAILY ORAL 02/20/19 10:00 03/22/19 09:59 02/20/19 12:30 Polyethylene Glycol (Miralax) 17 gm HSPRN PRN ORAL Constipation 02/20/19 14:00 03/12/19 13:59 Pregabalin (Lyrica) 150 mg BID ORAL 02/20/19 18:00 03/22/19 08:59 02/22/19 17:37 Tamsulosin HCl (Flomax) 0.4 mg BID ORAL 02/20/19 18:00 03/12/19 17:59 02/20/19 18:41 Vancomycin HCl (Firvanq) 125 mg FOUR TIMES A DAY ORAL 02/20/19 13:00 02/25/19 12:59 02/22/19 17:38 Vitamin D (Vitamin D) 1,000 intlu DAILY ORAL 02/21/19 09:00 03/22/19 08:59 02/22/19 09:40 Miranda Cordero M.D. Feb 22, 2019 18:18
--- NOTE | 2019-02-22 19:30 | NUR ---
NURSE NOTES: Patient awake in bed, no complaint of pain at this time, was asking something for cough. Lungs are clear. Will check doctor's notes. Instructed the use of call light. Call light and needs in reach. Bed in lowest position, lock engaged and alarm on. Will continue to monitor.
--- NOTE | 2019-02-22 19:30 | NUR ---
HAND-OFF: Report given to CHARLEY Burgos.
[2019-02-22 20:00] VITALS: BP 107/76
--- NOTE | 2019-02-22 20:08 | NUR ---
HAND-OFF: Report given to CHARLEY Prakash.
[2019-02-22] MEDS: Albuterol/Ipratropium 3ml neb HHN PRN (23:01)
[2019-02-23] VITALS: BP 116/68
[2019-02-23 04:00] VITALS: BP 130/69
[2019-02-23] MEDS: D5W w/KCl 20mEq 1,000 ML IV SCH ×2 (04:27→17:16)
[2019-02-23] MEDS: Levothyroxine 25mcg tab ORAL SCH (05:09)
[2019-02-23] MEDS: Guaifenesin/DM 10ml syrup ORAL PRN ×2 (05:09→17:13)
[2019-02-23] MEDS: dilTIAZem HCl 90mg tab ORAL SCH ×3 (05:14→21:14)
[2019-02-23] MEDS: Albuterol/Ipratropium 3ml neb HHN PRN ×2 (05:26→20:08)
[2019-02-23 06:30] LABS: BASOPHILS % (AUTO) 0.6 % (0.0-2.0); EOSINOPHILS % (AUTO) 1.4 % (0.0-3.0); HEMATOCRIT 31.1 % (42.0-52.0); HEMOGLOBIN 10.2 G/DL (14.2-18.0); LYMPHOCYTES % (AUTO) 43.9 % (20.0-45.0); MEAN CORPUSCULAR VOLUME 92 FL (80-99); MONOCYTES % (AUTO) 6.4 % (1.0-10.0); NEUTROPHILS % (AUTO) 47.7 % (45.0-75.0); PLATELET COUNT 192 K/UL (150-450); RED BLOOD COUNT 3.38 M/UL (4.70-6.10); RED CELL DISTRIBUTION WIDTH 13.7 % (11.6-14.8); WHITE BLOOD COUNT 9.3 K/UL (4.8-10.8)
[2019-02-23 06:54] LABS: ANION GAP 8 mmol/L (5-15); BLOOD UREA NITROGEN 12 mg/dL (7-18); CALCIUM 8.4 MG/DL (8.5-10.1); CARBON DIOXIDE 23 MMOL/L (21-32); CHLORIDE 107 MMOL/L (98-107); POTASSIUM 4.2 MMOL/L (3.5-5.1); SODIUM 138 MMOL/L (136-145)
--- NOTE | 2019-02-23 07:22 | NUR ---
HAND-OFF: Report given to CHARLEY Burgos.
[2019-02-23 08:00] VITALS: BP 115/64
--- NOTE | 2019-02-23 08:00 | NUR ---
NURSE NOTES: Patient awake, alert x3, confused and forget-full; on nasal cannula 2 Liter, no sing of distress and shortness of breath; no sing of chest pain; IV Left For-Arm [id number] 20 mEq 75cc running; Rectal tube in place, bowel movement noticed; side rails up x2, breaks engaged, bed at lowest position; call light within reach; will keep monitoring.
[2019-02-23] MEDS: Vancomycin oral 125mg/2.5ml ORAL SCH ×4 (08:56→20:40)
[2019-02-23] MEDS: Vitamin D 1000 IU Tab ORAL SCH (08:57)
[2019-02-23] MEDS: Aspirin EC 81mg tab ORAL SCH (08:58)
[2019-02-23] MEDS: Losartan 50mg tab ORAL SCH (08:59)
[2019-02-23] MEDS: Fluconazole 100mg tab ORAL SCH (08:59)
[2019-02-23] MEDS: Tamsulosin 0.4mg cap ORAL SCH ×2 (09:00→17:18)
[2019-02-23] MEDS: PARoxetine 20mg tab ORAL SCH (09:00)
[2019-02-23] MEDS: Meloxicam 15 MG TAB ORAL SCH (09:00)
[2019-02-23] MEDS: Lyrica 75mg cap ORAL SCH ×2 (09:01→17:14)
[2019-02-23] MEDS: Digoxin 0.125mg tab ORAL SCH (09:01)
--- NOTE | 2019-02-23 11:47 | Pulmonology Progress Note ---
Assessment/Plan Problems: (1) Sepsis (2) Febrile illness, acute (3) Atrial fibrillation (4) History of rectal cancer (5) BPH (benign prostatic hyperplasia) (6) Degenerative disc disease (7) Severe protein-calorie malnutrition (8) HIV (human immunodeficiency virus infection) Assessment/Plan doing better wbc lower not eating well continue abx, on oral vancomycin and iv flagyl check electrolytes watch the heart rate pt agreed with Hospice Subjective Interval Events: late note for 02/22 Constitutional: Reports: no symptoms HEENT: Repors: no symptoms Allergies: Coded Allergies: CODEINE (Unverified Allergy, Unknown, 11/28/17) EMTRICITABINE (Verified Allergy, Unknown, anxiousness, 08/31/18) SULFAMETHOXAZOLE (Unverified Allergy, Unknown, 10/27/17) TENOFOVIR (Verified Allergy, Unknown, anxiousness, 08/31/18) TRIMETHOPRIM (Unverified Allergy, Unknown, 10/27/17) Objective Last 24 Hour Vital Signs Date Time Temp Pulse Resp B/P (MAP) Pulse Ox O2 Delivery O2 Flow Rate FiO2 02/23/19 10:10 84 18 96 Nasal Cannula 2.0 02/23/19 10:10 96 Nasal Cannula 2.0 28 02/23/19 09:27 99.1 02/23/19 09:27 99.1 02/23/19 09:01 103 02/23/19 09:00 Nasal Cannula 2.0 02/23/19 08:59 115/64 02/23/19 08:00 99.1 103 18 115/64 (81) 96 02/23/19 05:36 81 16 98 Nasal Cannula 2.0 02/23/19 05:26 75 18 95 Nasal Cannula 2.0 02/23/19 05:14 90 142/89 02/23/19 04:00 98.3 92 18 130/69 (89) 98 02/23/19 00:00 97.1 90 19 116/68 (84) 94 02/22/19 23:02 85 18 98 Nasal Cannula 2.0 28 02/22/19 22:52 96 Nasal Cannula 2.0 28 02/22/19 22:52 81 18 96 Nasal Cannula 2.0 28 02/22/19 22:52 81 18 96 Nasal Cannula 2.0 28 02/22/19 22:00 104 107/76 02/22/19 21:00 Nasal Cannula 2.0 02/22/19 20:00 98.1 104 20 107/76 (86) 95 02/22/19 16:00 97.8 99 18 115/73 (87) 95 02/22/19 12:00 98.1 98 18 108/75 (86) 95 Intake and Output 02/22/19 02/23/19 18:59 06:59 Intake Total 1925 ml 875 ml Balance 1925 ml 875 ml Intake Oral 900 ml IV Total 1025 ml 875 ml # Voids 4 2 General Appearance: cachetic HEENT: normocephalic Cardiovascular: normal peripheral pulses, normal rate Abdomen: normal bowel sounds, no organomegaly Genitourinary: normal external genitalia 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: 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 Lymphatic: no neck adenopathy Microbiology Date/Time Source Procedure Growth Status 02/21/19 18:45 Blood Blood Culture - Preliminary NO GROWTH AFTER 24 HOURS Resulted 02/21/19 18:30 Blood Blood Culture - Preliminary NO GROWTH AFTER 24 HOURS Resulted Laboratory Tests 02/23/19 05:55: White Blood Count 9.3, Red Blood Count 3.38L, Hemoglobin 10.2L, Hematocrit 31.1L , Mean Corpuscular Volume 92, Mean Corpuscular Hemoglobin 30.1, Mean Corpuscular Hemoglobin Concent 32.7, Red Cell Distribution Width 13.7, Platelet Count 192, Mean Platelet Volume 7.3, Neutrophils (%) (Auto) 47.7, Lymphocytes (% ) (Auto) 43.9, Monocytes (%) (Auto) 6.4, Eosinophils (%) (Auto) 1.4, Basophils ( %) (Auto) 0.6, Sodium Level 138, Potassium Level 4.2, Chloride Level 107, Carbon Dioxide Level 23, Anion Gap 8, Blood Urea Nitrogen 12, Creatinine 1.0, Estimat Glomerular Filtration Rate > 60, Glucose Level 122H, Calcium Level 8.4L Current Medications Medications (Trade) Dose Ordered Sig/Roman Route PRN Reason Start Time Stop Time Status Last Admin Dose Admin Acetaminophen (Tylenol) 650 mg Q4H PRN ORAL fever 02/20/19 09:48 03/22/19 09:47 02/21/19 00:45 Albuterol/ Ipratropium (Albuterol/ Ipratropium) 3 ml Q4HRT PRN HHN sob 02/20/19 09:49 02/25/19 09:48 02/23/19 05:26 Aspirin (Ecotrin) 81 mg DAILY ORAL 02/21/19 09:00 03/22/19 08:59 02/23/19 08:58 Baclofen (Lioresal) 10 mg THREE TIMES A DAY ORAL 02/20/19 13:00 03/22/19 08:59 02/21/19 18:35 Dextrose (Dextrose 50%) 25 ml Q30M PRN IV Hypoglycemia 02/20/19 09:45 03/12/19 14:05 Dextrose (Dextrose 50%) 50 ml Q30M PRN IV hypoglycemia 02/20/19 09:45 03/12/19 14:14 Dextrose/ Electrolytes 1,000 ml @ 75 mls/hr [id number] IV 02/20/19 09:47 03/22/19 09:46 02/22/19 14:45 Digoxin (Lanoxin) 0.125 mg DAILY ORAL 02/21/19 09:00 03/16/19 08:59 02/23/19 09:01 Diltiazem HCl (Cardizem) 90 mg EVERY 8 HOURS ORAL 02/20/19 14:00 03/14/19 13:59 02/23/19 05:14 Docusate Sodium (Colace) 100 mg BIDPRN PRN ORAL Constipation 02/20/19 09:49 03/22/19 09:48 Famotidine (Pepcid) 20 mg BID ORAL 02/20/19 18:00 03/13/19 22:29 02/23/19 09:02 Fluconazole (Diflucan) 200 mg DAILY ORAL 02/21/19 09:00 02/24/19 08:59 02/23/19 08:59 Gabapentin (Neurontin) 600 mg THREE TIMES A DAY ORAL 02/20/19 13:00 03/12/19 17:59 02/22/19 09:43 Guaifenesin/ Dextromethorphan (Robitussin DM Syrup) 5 ml Q6H PRN ORAL For Cough 02/20/19 09:50 03/22/19 09:49 02/23/19 05:09 Ketoconazole (Nizoral 2% Cream) 1 applic BID TOPIC 02/20/19 18:00 03/22/19 08:59 02/22/19 17:37 Levothyroxine Sodium (Synthroid) 25 mcg DAILY@0630 ORAL 02/21/19 06:30 03/13/19 06:29 02/23/19 05:09 Lorazepam (Ativan) 1 mg BIDPRN PRN ORAL anxiety 02/20/19 09:50 02/27/19 09:49 Losartan Potassium (Cozaar) 50 mg DAILY ORAL 02/21/19 09:00 03/22/19 08:59 02/23/19 08:59 Meloxicam (Mobic) 15 mg DAILY ORAL 02/21/19 09:00 03/22/19 08:59 02/22/19 09:40 Metoclopramide HCl (Reglan) 5 mg Q6H PRN IVP Nausea & Vomiting 02/20/19 09:51 03/22/19 09:50 Metronidazole 100 ml @ 100 mls/hr Q8HR IVPB 02/20/19 14:00 03/01/19 13:59 02/23/19 05:12 Mirtazapine (Remeron) 7.5 mg BEDTIME PRN ORAL SLEEP 02/20/19 21:00 03/22/19 00:14 Mirtazapine (Remeron) 15 mg BEDTIME ORAL 02/20/19 21:00 03/12/19 20:59 02/21/19 21:08 Morphine Sulfate (Morphine Sulfate) 4 mg Q4H PRN IVP For Pain 02/20/19 09:52 02/27/19 09:51 Oxycodone/ Acetaminophen (Percocet 10/325) 1 tab BID ORAL 02/20/19 18:00 02/27/19 08:59 02/23/19 08:57 Paroxetine HCl (Paxil) 40 mg DAILY ORAL 02/21/19 09:00 03/13/19 08:59 Patient Own Medication (Patient's Own Med) 1 ea BID ORAL 02/20/19 10:00 03/22/19 09:59 02/22/19 17:35 Patient Own Medication (Patient's Own Med) 1 ea DAILY ORAL 02/20/19 10:00 03/22/19 09:59 02/20/19 12:29 Patient Own Medication (Patient's Own Med) 1 ea DAILY ORAL 02/20/19 10:00 03/22/19 09:59 02/20/19 12:30 Polyethylene Glycol (Miralax) 17 gm HSPRN PRN ORAL Constipation 02/20/19 14:00 03/12/19 13:59 Pregabalin (Lyrica) 150 mg BID ORAL 02/20/19 18:00 03/22/19 08:59 02/23/19 09:01 Tamsulosin HCl (Flomax) 0.4 mg BID ORAL 02/20/19 18:00 03/12/19 17:59 02/20/19 18:41 Vancomycin HCl (Firvanq) 125 mg FOUR TIMES A DAY ORAL 02/20/19 13:00 02/25/19 12:59 02/23/19 08:56 Vitamin D (Vitamin D) 1,000 intlu DAILY ORAL 02/21/19 09:00 03/22/19 08:59 02/23/19 08:57 Oliverio Rm MD Feb 23, 2019 11:47
--- NOTE | 2019-02-23 11:47 | Pulmonology Progress Note ---
Assessment/Plan Problems: (1) Sepsis (2) Febrile illness, acute (3) Atrial fibrillation (4) History of rectal cancer (5) BPH (benign prostatic hyperplasia) (6) Degenerative disc disease (7) Severe protein-calorie malnutrition (8) HIV (human immunodeficiency virus infection) Assessment/Plan doing better wbc lower not eating well continue abx, on oral vancomycin and iv flagyl check electrolytes watch the heart rate pt agreed with Hospice dc planning in process Subjective ROS Limited/Unobtainable: No Constitutional: Reports: no symptoms HEENT: Repors: no symptoms Allergies: Coded Allergies: CODEINE (Unverified Allergy, Unknown, 11/28/17) EMTRICITABINE (Verified Allergy, Unknown, anxiousness, 08/31/18) SULFAMETHOXAZOLE (Unverified Allergy, Unknown, 10/27/17) TENOFOVIR (Verified Allergy, Unknown, anxiousness, 08/31/18) TRIMETHOPRIM (Unverified Allergy, Unknown, 10/27/17) Objective Last 24 Hour Vital Signs Date Time Temp Pulse Resp B/P (MAP) Pulse Ox O2 Delivery O2 Flow Rate FiO2 02/23/19 10:10 84 18 96 Nasal Cannula 2.0 28 02/23/19 10:10 96 Nasal Cannula 2.0 28 02/23/19 09:27 99.1 02/23/19 09:27 99.1 02/23/19 09:01 103 02/23/19 09:00 Nasal Cannula 2.0 02/23/19 08:59 115/64 02/23/19 08:00 99.1 103 18 115/64 (81) 96 02/23/19 05:36 81 16 98 Nasal Cannula 2.0 28 02/23/19 05:26 75 18 95 Nasal Cannula 2.0 28 02/23/19 05:14 90 142/89 02/23/19 04:00 98.3 92 18 130/69 (89) 98 02/23/19 00:00 97.1 90 19 116/68 (84) 94 02/22/19 23:02 85 18 98 Nasal Cannula 2.0 28 02/22/19 22:52 96 Nasal Cannula 2.0 28 02/22/19 22:52 81 18 96 Nasal Cannula 2.0 28 02/22/19 22:52 81 18 96 Nasal Cannula 2.0 28 02/22/19 22:00 104 107/76 02/22/19 21:00 Nasal Cannula 2.0 02/22/19 20:00 98.1 104 20 107/76 (86) 95 02/22/19 16:00 97.8 99 18 115/73 (87) 95 02/22/19 12:00 98.1 98 18 108/75 (86) 95 Intake and Output 02/22/19 02/23/19 18:59 06:59 Intake Total 1925 ml 875 ml Balance 1925 ml 875 ml Intake Oral 900 ml IV Total 1025 ml 875 ml # Voids 4 2 General Appearance: cachetic HEENT: normocephalic, atraumatic Respiratory/Chest: chest wall non-tender, lungs clear Cardiovascular: normal peripheral pulses, normal rate, regular rhythm Abdomen: normal bowel sounds, soft, non tender Extremities: no cyanosis Skin: no rash, no ulcers 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: 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 digester 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 II-XII grossly normal Microbiology Date/Time Source Procedure Growth Status 02/21/19 18:45 Blood Blood Culture - Preliminary NO GROWTH AFTER 24 HOURS Resulted 02/21/19 18:30 Blood Blood Culture - Preliminary NO GROWTH AFTER 24 HOURS Resulted Laboratory Tests 02/23/19 05:55: White Blood Count 9.3, Red Blood Count 3.38L, Hemoglobin 10.2L, Hematocrit 31.1L , Mean Corpuscular Volume 92, Mean Corpuscular Hemoglobin 30.1, Mean Corpuscular Hemoglobin Concent 32.7, Red Cell Distribution Width 13.7, Platelet Count 192, Mean Platelet Volume 7.3, Neutrophils (%) (Auto) 47.7, Lymphocytes (% ) (Auto) 43.9, Monocytes (%) (Auto) 6.4, Eosinophils (%) (Auto) 1.4, Basophils ( %) (Auto) 0.6, Sodium Level 138, Potassium Level 4.2, Chloride Level 107, Carbon Dioxide Level 23, Anion Gap 8, Blood Urea Nitrogen 12, Creatinine 1.0, Estimat Glomerular Filtration Rate > 60, Glucose Level 122H, Calcium Level 8.4L Current Medications Medications (Trade) Dose Ordered Sig/Roman Route PRN Reason Start Time Stop Time Status Last Admin Dose Admin Acetaminophen (Tylenol) 650 mg Q4H PRN ORAL fever 02/20/19 09:48 03/22/19 09:47 02/21/19 00:45 Albuterol/ Ipratropium (Albuterol/ Ipratropium) 3 ml Q4HRT PRN HHN sob 02/20/19 09:49 02/25/19 09:48 02/23/19 05:26 Aspirin (Ecotrin) 81 mg DAILY ORAL 02/21/19 09:00 03/22/19 08:59 02/23/19 08:58 Baclofen (Lioresal) 10 mg THREE TIMES A DAY ORAL 02/20/19 13:00 03/22/19 08:59 02/21/19 18:35 Dextrose (Dextrose 50%) 25 ml Q30M PRN IV Hypoglycemia 02/20/19 09:45 03/12/19 14:05 Dextrose (Dextrose 50%) 50 ml Q30M PRN IV hypoglycemia 02/20/19 09:45 03/12/19 14:14 Dextrose/ Electrolytes 1,000 ml @ 75 mls/hr [id number] IV 02/20/19 09:47 03/22/19 09:46 02/22/19 14:45 Digoxin (Lanoxin) 0.125 mg DAILY ORAL 02/21/19 09:00 03/16/19 08:59 02/23/19 09:01 Diltiazem HCl (Cardizem) 90 mg EVERY 8 HOURS ORAL 02/20/19 14:00 03/14/19 13:59 02/23/19 05:14 Docusate Sodium (Colace) 100 mg BIDPRN PRN ORAL Constipation 02/20/19 09:49 03/22/19 09:48 Famotidine (Pepcid) 20 mg BID ORAL 02/20/19 18:00 03/13/19 22:29 02/23/19 09:02 Fluconazole (Diflucan) 200 mg DAILY ORAL 02/21/19 09:00 02/24/19 08:59 02/23/19 08:59 Gabapentin (Neurontin) 600 mg THREE TIMES A DAY ORAL 02/20/19 13:00 03/12/19 17:59 02/22/19 09:43 Guaifenesin/ Dextromethorphan (Robitussin DM Syrup) 5 ml Q6H PRN ORAL For Cough 02/20/19 09:50 03/22/19 09:49 02/23/19 05:09 Ketoconazole (Nizoral 2% Cream) 1 applic BID TOPIC 02/20/19 18:00 03/22/19 08:59 02/22/19 17:37 Levothyroxine Sodium (Synthroid) 25 mcg DAILY@0630 ORAL 02/21/19 06:30 03/13/19 06:29 02/23/19 05:09 Lorazepam (Ativan) 1 mg BIDPRN PRN ORAL anxiety 02/20/19 09:50 02/27/19 09:49 Losartan Potassium (Cozaar) 50 mg DAILY ORAL 02/21/19 09:00 03/22/19 08:59 02/23/19 08:59 Meloxicam (Mobic) 15 mg DAILY ORAL 02/21/19 09:00 03/22/19 08:59 02/22/19 09:40 Metoclopramide HCl (Reglan) 5 mg Q6H PRN IVP Nausea & Vomiting 02/20/19 09:51 03/22/19 09:50 Metronidazole 100 ml @ 100 mls/hr Q8HR IVPB 02/20/19 14:00 03/01/19 13:59 02/23/19 05:12 Mirtazapine (Remeron) 7.5 mg BEDTIME PRN ORAL SLEEP 02/20/19 21:00 03/22/19 00:14 Mirtazapine (Remeron) 15 mg BEDTIME ORAL 02/20/19 21:00 03/12/19 20:59 02/21/19 21:08 Morphine Sulfate (Morphine Sulfate) 4 mg Q4H PRN IVP For Pain 02/20/19 09:52 02/27/19 09:51 Oxycodone/ Acetaminophen (Percocet 10/325) 1 tab BID ORAL 02/20/19 18:00 02/27/19 08:59 02/23/19 08:57 Paroxetine HCl (Paxil) 40 mg DAILY ORAL 02/21/19 09:00 03/13/19 08:59 Patient Own Medication (Patient's Own Med) 1 ea BID ORAL 02/20/19 10:00 03/22/19 09:59 02/22/19 17:35 Patient Own Medication (Patient's Own Med) 1 ea DAILY ORAL 02/20/19 10:00 03/22/19 09:59 02/20/19 12:29 Patient Own Medication (Patient's Own Med) 1 ea DAILY ORAL 02/20/19 10:00 03/22/19 09:59 02/20/19 12:30 Polyethylene Glycol (Miralax) 17 gm HSPRN PRN ORAL Constipation 02/20/19 14:00 03/12/19 13:59 Pregabalin (Lyrica) 150 mg BID ORAL 02/20/19 18:00 03/22/19 08:59 02/23/19 09:01 Tamsulosin HCl (Flomax) 0.4 mg BID ORAL 02/20/19 18:00 03/12/19 17:59 02/20/19 18:41 Vancomycin HCl (Firvanq) 125 mg FOUR TIMES A DAY ORAL 02/20/19 13:00 02/25/19 12:59 02/23/19 08:56 Vitamin D (Vitamin D) 1,000 intlu DAILY ORAL 02/21/19 09:00 03/22/19 08:59 02/23/19 08:57 Oliverio Rm MD Feb 23, 2019 11:47
[2019-02-23 12:00] VITALS: BP 104/72
--- NOTE | 2019-02-23 12:11 | General Progress Note ---
Assessment/Plan Problem List: (1) Anemia ICD Codes: D64.9 - Anemia, unspecified SNOMED: 782093167 (2) Hypothyroidism ICD Codes: E03.9 - Hypothyroidism, unspecified SNOMED: 80961022 (3) HIV (human immunodeficiency virus infection) ICD Codes: B20 - Human immunodeficiency virus [HIV] disease SNOMED: 71837036 Status: stable Assessment/Plan: s/p EGD SUMMARY OF FINDINGS: 1. Severe distal esophagitis, atypical, questionable severe Veda esophagitis versus ischemic esophagitis, status post biopsy and brushing. 2. Duodenal ulcerations. 3. Gastritis, status post biopsy. RECOMMENDATIONS: 1. Follow up pathology and treat accordingly. 2. The patient is to be on a PPI given duodenal ulceration. 3. We will start fluconazole for Veda esophagitis, pending results of the brushing and biopsy. advance to soft diet will fu Subjective ROS Limited/Unobtainable: Yes Allergies: Coded Allergies: CODEINE (Unverified Allergy, Unknown, 11/28/17) EMTRICITABINE (Verified Allergy, Unknown, anxiousness, 08/31/18) SULFAMETHOXAZOLE (Unverified Allergy, Unknown, 10/27/17) TENOFOVIR (Verified Allergy, Unknown, anxiousness, 08/31/18) TRIMETHOPRIM (Unverified Allergy, Unknown, 10/27/17) Objective Last 24 Hour Vital Signs Date Time Temp Pulse Resp B/P (MAP) Pulse Ox O2 Delivery O2 Flow Rate FiO2 02/23/19 10:10 84 18 96 Nasal Cannula 2.0 28 02/23/19 10:10 96 Nasal Cannula 2.0 28 02/23/19 09:27 99.1 02/23/19 09:27 99.1 02/23/19 09:01 103 02/23/19 09:00 Nasal Cannula 2.0 02/23/19 08:59 115/64 02/23/19 08:00 99.1 103 18 115/64 (81) 96 02/23/19 05:36 81 16 98 Nasal Cannula 2.0 28 02/23/19 05:26 75 18 95 Nasal Cannula 2.0 28 02/23/19 05:14 90 142/89 02/23/19 04:00 98.3 92 18 130/69 (89) 98 02/23/19 00:00 97.1 90 19 116/68 (84) 94 02/22/19 23:02 85 18 98 Nasal Cannula 2.0 28 02/22/19 22:52 96 Nasal Cannula 2.0 28 02/22/19 22:52 81 18 96 Nasal Cannula 2.0 28 02/22/19 22:52 81 18 96 Nasal Cannula 2.0 28 02/22/19 22:00 104 107/76 02/22/19 21:00 Nasal Cannula 2.0 02/22/19 20:00 98.1 104 20 107/76 (86) 95 02/22/19 16:00 97.8 99 18 115/73 (87) 95 Intake and Output 02/22/19 02/23/19 18:59 06:59 Intake Total 1925 ml 875 ml Balance 1925 ml 875 ml Intake Oral 900 ml IV Total 1025 ml 875 ml # Voids 4 2 Laboratory Tests 02/23/19 05:55: White Blood Count 9.3, Red Blood Count 3.38L, Hemoglobin 10.2L, Hematocrit 31.1L , Mean Corpuscular Volume 92, Mean Corpuscular Hemoglobin 30.1, Mean Corpuscular Hemoglobin Concent 32.7, Red Cell Distribution Width 13.7, Platelet Count 192, Mean Platelet Volume 7.3, Neutrophils (%) (Auto) 47.7, Lymphocytes (% ) (Auto) 43.9, Monocytes (%) (Auto) 6.4, Eosinophils (%) (Auto) 1.4, Basophils ( %) (Auto) 0.6, Sodium Level 138, Potassium Level 4.2, Chloride Level 107, Carbon Dioxide Level 23, Anion Gap 8, Blood Urea Nitrogen 12, Creatinine 1.0, Estimat Glomerular Filtration Rate > 60, Glucose Level 122H, Calcium Level 8.4L Height (Feet): 5 Height (Inches): 5.00 Weight (Pounds): 152 General Appearance: alert EENT: normal ENT inspection Neck: supple Cardiovascular: normal rate Respiratory/Chest: decreased breath sounds Abdomen: normal bowel sounds, non tender, soft Extremities: non-tender Dejan Germain MD Feb 23, 2019 12:10
--- NOTE | 2019-02-23 12:24 | Infectious Diseases Prog Note ---
Assessment/Plan Assessment/Plan Assessment: Sepsis--Cdiff colitis, 1st recurrence ; improving -02/17 CXR: No acute findings. -CT abd/p: Sigmoid and rectal colonic wall thickening with some mucosal edema along with scattered small bowel loops with bowel wall thickening suggestive of enterocolitis. Duodenal wall thickening with associated fat stranding, which may share etiology with enterocolitis; however, correlation with lipase is recommended to exclude groove pancreatitis. Evidence of infectious/inflammatory small airways disease; patchy left basilar airspace consolidation raises possibility of developing pneumonia. Refluxing esophagus with distal esophageal wall thickening; correlation with recent endoscopy is recommended. -CXR: Bibasilar opacities likely representing subsegmental atelectasis. -u/a neg -BCx Neg -normal lipase and amylase -sp cx: normal resp thomas -stool cx neg Fever; recurrent; improving Leukocytosis,SP Veda Esophagitis- -bx - no malignancy, fungal stains+ for Veda sp, neg stains for CMV, HSV -02/16 SP EGD: Severe distal esophagitis, atypical, questionable severe Veda esophagitis versus ischemic esophagitis, status post biopsy and brushing.Duodenal ulcerations. Gastritis, status post biopsy. hx of Cdiff 09/2018- - failed oral vancomycin; sp tx w/ Fidaxomicin --09/06 Cdiff toxin a/b +; repeat Cdiff neg x2 -09/06 SP Colonoscopy: proctitis -stool cx: normal thomas -Giardia ag, cryptosporidium neg Hx of UTI 08/2018 -u/a wbc 10-15, shirley neg, leuk +3; ucx >100K PROTEUS MIRABILIS ( I Levo; R Amp, bactrim, Cipro, Nitro; S Ceftriaxone) HIV/AIDS- on ARV =02/19 CD4 407 (11%) -11/19 CD4 392 (17.4%) -09/2018 182 (10.1%), VL UD -11/2017 CD4 323 Rectal CA (ongoing w/u at [facility]) CVA 2004 HTN Plan: -Cont oral vancomycin #05/17 -Cont IV Flagyl #8 as patient refusing some doses of oral vancomycin -Fluconazole #/-14 -02/14 SP IV Vancomycin, Zosyn #4 -12/01 Sp Cefepime #14, Flagyl #14 -11/22 SP IV Vancomycin #6 -11/17 SP Zosyn x1 -09/23 SP Fidaxomicin #10 -09/13/18 SP PO Vancomycin #8 -f/u cx -Monitor CBC/CMP, temperatures Thank you for this consultation. Will continue to follow along with you. Subjective Allergies: Coded Allergies: CODEINE (Unverified Allergy, Unknown, 11/28/17) EMTRICITABINE (Verified Allergy, Unknown, anxiousness, 08/31/18) SULFAMETHOXAZOLE (Unverified Allergy, Unknown, 10/27/17) TENOFOVIR (Verified Allergy, Unknown, anxiousness, 08/31/18) TRIMETHOPRIM (Unverified Allergy, Unknown, 10/27/17) Subjective afebrile >24hrs no leukcoytosis no diarrhea output on Rectal tube today Objective Vital Signs Last 24 Hour Vital Signs Date Time Temp Pulse Resp B/P (MAP) Pulse Ox O2 Delivery O2 Flow Rate FiO2 02/23/19 10:10 84 18 96 Nasal Cannula 2.0 28 02/23/19 10:10 96 Nasal Cannula 2.0 28 02/23/19 09:27 99.1 02/23/19 09:27 99.1 02/23/19 09:01 103 02/23/19 09:00 Nasal Cannula 2.0 02/23/19 08:59 115/64 02/23/19 08:00 99.1 103 18 115/64 (81) 96 02/23/19 05:36 81 16 98 Nasal Cannula 2.0 28 02/23/19 05:26 75 18 95 Nasal Cannula 2.0 02/23/19 05:14 90 142/89 02/23/19 04:00 98.3 92 18 130/69 (89) 98 02/23/19 00:00 97.1 90 19 116/68 (84) 94 02/22/19 23:02 85 18 98 Nasal Cannula 2.0 28 02/22/19 22:52 96 Nasal Cannula 2.0 28 02/22/19 22:52 81 18 96 Nasal Cannula 2.0 28 02/22/19 22:52 81 18 96 Nasal Cannula 2.0 28 02/22/19 22:00 104 107/76 02/22/19 21:00 Nasal Cannula 2.0 02/22/19 20:00 98.1 104 20 107/76 (86) 95 02/22/19 16:00 97.8 99 18 115/73 (87) 95 Height (Feet): 5 Height (Inches): 5.00 Weight (Pounds): 152 Objective GENERAL: The patient is a thin-appearing white male, in no apparent distress. HEENT: Eyes, pupils are equal and responsive to light and accommodation. Extraocular movements are intact. NECK: Supple without lymphadenopathy. CHEST: Lungs are clear to auscultation bilaterally without wheezes or rales. CARDIOVASCULAR: Regular rhythm and rate. S1 and S2 are normal without murmurs, rubs, or gallops. ABDOMEN: Soft, nontender, and nondistended. Positive bowel sounds. No evidence of hepatosplenomegaly. Currently, no rebound or guarding noted. EXTREMITIES: Negative for clubbing, cyanosis, or edema. NEUROLOGIC: Cranial nerves II through XII are grossly intact without focal deficits. Microbiology Date/Time Source Procedure Growth Status 02/21/19 18:45 Blood Blood Culture - Preliminary NO GROWTH AFTER 24 HOURS Resulted 02/21/19 18:30 Blood Blood Culture - Preliminary NO GROWTH AFTER 24 HOURS Resulted Laboratory Tests Test 02/23/19 05:55 White Blood Count 9.3 K/UL (4.8-10.8) Red Blood Count 3.38 M/UL (4.70-6.10) L Hemoglobin 10.2 G/DL (14.2-18.0) L Hematocrit 31.1 % (42.0-52.0) L Mean Corpuscular Volume 92 FL (80-99) Mean Corpuscular Hemoglobin 30.1 PG (27.0-31.0) Mean Corpuscular Hemoglobin Concent 32.7 G/DL (32.0-36.0) Red Cell Distribution Width 13.7 % (11.6-14.8) Platelet Count 192 K/UL (150-450) Mean Platelet Volume 7.3 FL (6.5-10.1) Neutrophils (%) (Auto) 47.7 % (45.0-75.0) Lymphocytes (%) (Auto) 43.9 % (20.0-45.0) Monocytes (%) (Auto) 6.4 % (1.0-10.0) Eosinophils (%) (Auto) 1.4 % (0.0-3.0) Basophils (%) (Auto) 0.6 % (0.0-2.0) Sodium Level 138 MMOL/L (136-145) Potassium Level 4.2 MMOL/L (3.5-5.1) Chloride Level 107 MMOL/L (98-107) Carbon Dioxide Level 23 MMOL/L (21-32) Anion Gap 8 mmol/L (5-15) Blood Urea Nitrogen 12 mg/dL (7-18) Creatinine 1.0 MG/DL (0.55-1.30) Estimat Glomerular Filtration Rate > 60 mL/min (>60) Glucose Level 122 MG/DL (74-106) H Calcium Level 8.4 MG/DL (8.5-10.1) L Current Medications Medications (Trade) Dose Ordered Sig/Roman Route PRN Reason Start Time Stop Time Status Last Admin Dose Admin Acetaminophen (Tylenol) 650 mg Q4H PRN ORAL fever 02/20/19 09:48 03/22/19 09:47 02/21/19 00:45 Albuterol/ Ipratropium (Albuterol/ Ipratropium) 3 ml Q4HRT PRN HHN sob 02/20/19 09:49 02/25/19 09:48 02/23/19 05:26 Aspirin (Ecotrin) 81 mg DAILY ORAL 02/21/19 09:00 03/22/19 08:59 02/23/19 08:58 Baclofen (Lioresal) 10 mg THREE TIMES A DAY ORAL 02/20/19 13:00 03/22/19 08:59 02/21/19 18:35 Dextrose (Dextrose 50%) 25 ml Q30M PRN IV Hypoglycemia 02/20/19 09:45 03/12/19 14:05 Dextrose (Dextrose 50%) 50 ml Q30M PRN IV hypoglycemia 02/20/19 09:45 03/12/19 14:14 Dextrose/ Electrolytes 1,000 ml @ 75 mls/hr [id number] IV 02/20/19 09:47 03/22/19 09:46 02/22/19 14:45 Digoxin (Lanoxin) 0.125 mg DAILY ORAL 02/21/19 09:00 03/16/19 08:59 02/23/19 09:01 Diltiazem HCl (Cardizem) 90 mg EVERY 8 HOURS ORAL 02/20/19 14:00 03/14/19 13:59 02/23/19 05:14 Docusate Sodium (Colace) 100 mg BIDPRN PRN ORAL Constipation 02/20/19 09:49 03/22/19 09:48 Famotidine (Pepcid) 20 mg BID ORAL 02/20/19 18:00 03/13/19 22:29 02/23/19 09:02 Fluconazole (Diflucan) 200 mg DAILY ORAL 02/21/19 09:00 02/24/19 08:59 02/23/19 08:59 Gabapentin (Neurontin) 600 mg THREE TIMES A DAY ORAL 02/20/19 13:00 03/12/19 17:59 02/22/19 09:43 Guaifenesin/ Dextromethorphan (Robitussin DM Syrup) 5 ml Q6H PRN ORAL For Cough 02/20/19 09:50 03/22/19 09:49 02/23/19 05:09 Ketoconazole (Nizoral 2% Cream) 1 applic BID TOPIC 02/20/19 18:00 03/22/19 08:59 02/22/19 17:37 Levothyroxine Sodium (Synthroid) 25 mcg DAILY@0630 ORAL 02/21/19 06:30 03/13/19 06:29 02/23/19 05:09 Lorazepam (Ativan) 1 mg BIDPRN PRN ORAL anxiety 02/20/19 09:50 02/27/19 09:49 Losartan Potassium (Cozaar) 50 mg DAILY ORAL 02/21/19 09:00 03/22/19 08:59 02/23/19 08:59 Meloxicam (Mobic) 15 mg DAILY ORAL 02/21/19 09:00 03/22/19 08:59 02/22/19 09:40 Metoclopramide HCl (Reglan) 5 mg Q6H PRN IVP Nausea & Vomiting 02/20/19 09:51 03/22/19 09:50 Metronidazole 100 ml @ 100 mls/hr Q8HR IVPB 02/20/19 14:00 03/01/19 13:59 02/23/19 05:12 Mirtazapine (Remeron) 7.5 mg BEDTIME PRN ORAL SLEEP 02/20/19 21:00 03/22/19 00:14 Mirtazapine (Remeron) 15 mg BEDTIME ORAL 02/20/19 21:00 03/12/19 20:59 02/21/19 21:08 Morphine Sulfate (Morphine Sulfate) 4 mg Q4H PRN IVP For Pain 02/20/19 09:52 02/27/19 09:51 Oxycodone/ Acetaminophen (Percocet 10/325) 1 tab BID ORAL 02/20/19 18:00 02/27/19 08:59 02/23/19 08:57 Paroxetine HCl (Paxil) 40 mg DAILY ORAL 02/21/19 09:00 03/13/19 08:59 Patient Own Medication (Patient's Own Med) 1 ea BID ORAL 02/20/19 10:00 03/22/19 09:59 02/22/19 17:35 Patient Own Medication (Patient's Own Med) 1 ea DAILY ORAL 02/20/19 10:00 03/22/19 09:59 02/20/19 12:29 Patient Own Medication (Patient's Own Med) 1 ea DAILY ORAL 02/20/19 10:00 03/22/19 09:59 02/20/19 12:30 Polyethylene Glycol (Miralax) 17 gm HSPRN PRN ORAL Constipation 02/20/19 14:00 03/12/19 13:59 Pregabalin (Lyrica) 150 mg BID ORAL 02/20/19 18:00 03/22/19 08:59 02/23/19 09:01 Tamsulosin HCl (Flomax) 0.4 mg BID ORAL 02/20/19 18:00 03/12/19 17:59 02/20/19 18:41 Vancomycin HCl (Firvanq) 125 mg FOUR TIMES A DAY ORAL 02/20/19 13:00 02/25/19 12:59 02/23/19 08:56 Vitamin D (Vitamin D) 1,000 intlu DAILY ORAL 02/21/19 09:00 03/22/19 08:59 02/23/19 08:57 Miranda Cordero M.D. Feb 23, 2019 12:24
--- NOTE | 2019-02-23 13:19 | NUR ---
SPEECH PATHOLOGY: S: PATIENT WAS CLEARED FOR ST INTERVENTION BY CHARLEY DEE O: DYSPHAGIA MANAGEMENT A: PATIENT SEEN SITTING UPRIGHT IN BED. ON A COGNITIVE SCREEN (SLUMS) PATIENT ACHIEVED A SCORE OF 6 WHICH IS CONSISTENT WITH DEMENTIA HE HAD NO RECALL OF MEALTIME PROTOCOL POSTED AT BEDSIDE RE: ASPIRATION PRECAUTIONS COUGH X3 POST P.O. TRIALS WITH SOFT SOLID AT BEDSIDE. PATIENT CONTINUES TO REFUSE LIQUID DIET. P: CONTINUE PER PLAN
--- NOTE | 2019-02-23 13:45 | NUR ---
*-* INSURANCE *-* ALL CLINICALS AND REVIEWS HAVE BE[facility] [id number] F: [phone] P: [phone]
--- NOTE | 2019-02-23 13:53 | Cardiac Electrophysiology PN ---
Assessment/Plan Assessment/Plan 1. Atrial fibrillation with RVR. In SR with PACs. On Cardizem 90 mg q 8 hours and Dig 0.125. Dig level 1.1.Off tele. EF 60% 2. Hypertension. On Cardizem. 3. Recurrent supraventricular tachycardia. On Dig and Cardizem 4. Human immunodeficiency virus. 5. Generalized weakness. 6. Rectal cancer. 7. Cerebrovascular accident. 8. C Diff DW RN Subjective Subjective Alert in NAD, awaiting placement. No CP or SOB Objective Last 24 Hour Vital Signs Date Time Temp Pulse Resp B/P (MAP) Pulse Ox O2 Delivery O2 Flow Rate FiO2 02/23/19 12:00 98.4 82 18 104/72 (83) 94 02/23/19 10:10 84 18 96 Nasal Cannula 2.0 28 02/23/19 10:10 96 Nasal Cannula 2.0 28 02/23/19 09:27 99.1 02/23/19 09:27 99.1 02/23/19 09:01 103 02/23/19 09:00 Nasal Cannula 2.0 02/23/19 08:59 115/64 02/23/19 08:00 99.1 103 18 115/64 (81) 96 02/23/19 05:36 81 16 98 Nasal Cannula 2.0 28 02/23/19 05:26 75 18 95 Nasal Cannula 2.0 28 02/23/19 05:14 90 142/89 02/23/19 04:00 98.3 92 18 130/69 (89) 98 02/23/19 00:00 97.1 90 19 116/68 (84) 94 02/22/19 23:02 85 18 98 Nasal Cannula 2.0 28 02/22/19 22:52 96 Nasal Cannula 2.0 28 02/22/19 22:52 81 18 96 Nasal Cannula 2.0 28 02/22/19 22:52 81 18 96 Nasal Cannula 2.0 28 02/22/19 22:00 104 107/76 02/22/19 21:00 Nasal Cannula 2.0 02/22/19 20:00 98.1 104 20 107/76 (86) 95 02/22/19 16:00 97.8 99 18 115/73 (87) 95 Intake and Output 02/22/19 02/23/19 18:59 06:59 Intake Total 1925 ml 875 ml Balance 1925 ml 875 ml Intake Oral 900 ml IV Total 1025 ml 875 ml # Voids 4 2 Laboratory Tests Test 02/23/19 05:55 White Blood Count 9.3 K/UL (4.8-10.8) Red Blood Count 3.38 M/UL (4.70-6.10) L Hemoglobin 10.2 G/DL (14.2-18.0) L Hematocrit 31.1 % (42.0-52.0) L Mean Corpuscular Volume 92 FL (80-99) Mean Corpuscular Hemoglobin 30.1 PG (27.0-31.0) Mean Corpuscular Hemoglobin Concent 32.7 G/DL (32.0-36.0) Red Cell Distribution Width 13.7 % (11.6-14.8) Platelet Count 192 K/UL (150-450) Mean Platelet Volume 7.3 FL (6.5-10.1) Neutrophils (%) (Auto) 47.7 % (45.0-75.0) Lymphocytes (%) (Auto) 43.9 % (20.0-45.0) Monocytes (%) (Auto) 6.4 % (1.0-10.0) Eosinophils (%) (Auto) 1.4 % (0.0-3.0) Basophils (%) (Auto) 0.6 % (0.0-2.0) Sodium Level 138 MMOL/L (136-145) Potassium Level 4.2 MMOL/L (3.5-5.1) Chloride Level 107 MMOL/L (98-107) Carbon Dioxide Level 23 MMOL/L (21-32) Anion Gap 8 mmol/L (5-15) Blood Urea Nitrogen 12 mg/dL (7-18) Creatinine 1.0 MG/DL (0.55-1.30) Estimat Glomerular Filtration Rate > 60 mL/min (>60) Glucose Level 122 MG/DL (74-106) H Calcium Level 8.4 MG/DL (8.5-10.1) L Microbiology Date/Time Source Procedure Growth Status 02/21/19 18:45 Blood Blood Culture - Preliminary NO GROWTH AFTER 24 HOURS Resulted 02/21/19 18:30 Blood Blood Culture - Preliminary NO GROWTH AFTER 24 HOURS Resulted Objective HEAD AND NECK: No JVD. LUNGS: Coarse rhonchi. CARDIOVASCULAR: regular S1 and S2 with no gallop ABDOMEN: Soft. EXTREMITIES: No pitting edema. Abel Mendez MD Feb 23, 2019 13:53
--- NOTE | 2019-02-23 14:25 | NUR ---
RD ASSESSMENT & RECOMMENDATIONS SEE CARE ACTIVITY FOR COMPLETE ASSESSMENT DAILY ESTIMATED NEEDS: Needs based on HIV, CA, possible recent wt loss/64kg 25-35 kcals/kg 4059-3203 total kcals 1-1.5 g protein/kg 64-96 g total protein 25-30 mL/kg 0067-9757 total fluid mLs NUTRITION DIAGNOSIS: * Increased kcal/pro needs R/T catabolic dx, possible wt loss as evidenced by HIV+, h/o rectal CA, w/ possible wt loss of 11#/7.3% wt loss in 3 months, pt at risk for further wt loss. * Altered GI function R/T clinical condition, stool C-diff positive as evidenced c/o N/V/D, s/p EGD w/ findings of severe distal esophagitis. CURRENT DIET: regular soft PO DIET RECOMMENDATIONS: LOW FIBER/ SOFT DIET ADDITIONAL RECOMMENDATIONS: * Calibrated bedscale wt for accurate CBW weekly wt monitoring given possible recent wt loss * Check lytes daily felipe with n/v/d, replete as needed (low K, mag) * Add probiotics- diarrhea, stool C-diff + * Ensure CLEAR TID; Ensure Enlive only as tolerated + snacks * Zofran to help alleviate N/V, to improved PO tolerance * Monitor PO intake and tolerance closely
--- NOTE | 2019-02-23 15:13 | NUR ---
CASE MANAGEMENT:REVIEW 02/23/19 SI: SEPSIS. PNA. C-DIFF COLITIS. ESOPHAGITIS 98.4 82 18 104/72 96% ON 2L/NC IS: IV FLAGYL Q8HRS VANCOMYCIN PO QID DIFLUCAN PO QD ASA PO QD DIGOXIN PO QD COZAAR PO QD MOBIC PO QD PAXIL PO QD CARDIZEM PO Q8HR IVF@75/HR : NOW ON MED/SURG UNIT [facility] DCP: PLAN: DISCHARGE WAS CANCELLED YESTERDAY PATIENT HAS BEEN REFERRED TO [facility]...ACCEPTANCE A [facility] TO SNF IS PENDING
--- NOTE | 2019-02-23 15:20 | NUR ---
NURSE NOTES: Patient is asking for an order of cream for his face; MD Vail is aware. Waiting for order.
--- NOTE | 2019-02-23 15:57 | NUR ---
NURSE NOTES: I received order from MD Barragan for patient's face; order carried out as ordered.
[2019-02-23 16:00] VITALS: BP 113/69
--- NOTE | 2019-02-23 16:56 | Internal Med Progress Note ---
Subjective Physician Name Carlos Barragan Attending Physician Carlos Barragan MD Current Medications Medications (Trade) Dose Ordered Sig/Roman Route PRN Reason Start Time Stop Time Status Last Admin Dose Admin Acetaminophen (Tylenol) 650 mg Q4H PRN ORAL fever 02/20/19 09:48 03/22/19 09:47 02/21/19 00:45 Albuterol/ Ipratropium (Albuterol/ Ipratropium) 3 ml Q4HRT PRN HHN sob 02/20/19 09:49 02/25/19 09:48 02/23/19 05:26 Aspirin (Ecotrin) 81 mg DAILY ORAL 02/21/19 09:00 03/22/19 08:59 02/23/19 08:58 Baclofen (Lioresal) 10 mg THREE TIMES A DAY ORAL 02/20/19 13:00 03/22/19 08:59 02/21/19 18:35 Dextrose (Dextrose 50%) 25 ml Q30M PRN IV Hypoglycemia 02/20/19 09:45 03/12/19 14:05 Dextrose (Dextrose 50%) 50 ml Q30M PRN IV hypoglycemia 02/20/19 09:45 03/12/19 14:14 Dextrose/ Electrolytes 1,000 ml @ 75 mls/hr [id number] IV 02/20/19 09:47 03/22/19 09:46 02/22/19 14:45 Digoxin (Lanoxin) 0.125 mg DAILY ORAL 02/21/19 09:00 03/16/19 08:59 02/23/19 09:01 Diltiazem HCl (Cardizem) 90 mg EVERY 8 HOURS ORAL 02/20/19 14:00 03/14/19 13:59 02/23/19 15:14 Docusate Sodium (Colace) 100 mg BIDPRN PRN ORAL Constipation 02/20/19 09:49 03/22/19 09:48 Famotidine (Pepcid) 20 mg BID ORAL 02/20/19 18:00 03/13/19 22:29 02/23/19 09:02 Fluconazole (Diflucan) 200 mg DAILY ORAL 02/21/19 09:00 03/01/19 23:59 02/23/19 08:59 Gabapentin (Neurontin) 600 mg THREE TIMES A DAY ORAL 02/20/19 13:00 03/12/19 17:59 02/22/19 09:43 Guaifenesin/ Dextromethorphan (Robitussin DM Syrup) 5 ml Q6H PRN ORAL For Cough 02/20/19 09:50 03/22/19 09:49 02/23/19 05:09 Ketoconazole (Nizoral 2% Cream) 1 applic BID TOPIC 02/20/19 18:00 03/22/19 08:59 02/22/19 17:37 Levothyroxine Sodium (Synthroid) 25 mcg DAILY@0630 ORAL 02/21/19 06:30 03/13/19 06:29 02/23/19 05:09 Lorazepam (Ativan) 1 mg BIDPRN PRN ORAL anxiety 02/20/19 09:50 02/27/19 09:49 Losartan Potassium (Cozaar) 50 mg DAILY ORAL 02/21/19 09:00 03/22/19 08:59 02/23/19 08:59 Meloxicam (Mobic) 15 mg DAILY ORAL 02/21/19 09:00 03/22/19 08:59 02/22/19 09:40 Metoclopramide HCl (Reglan) 5 mg Q6H PRN IVP Nausea & Vomiting 02/20/19 09:51 03/22/19 09:50 Metronidazole 100 ml @ 100 mls/hr Q8HR IVPB 02/20/19 14:00 03/01/19 13:59 02/23/19 14:00 Mirtazapine (Remeron) 7.5 mg BEDTIME PRN ORAL SLEEP 02/20/19 21:00 03/22/19 00:14 Mirtazapine (Remeron) 15 mg BEDTIME ORAL 02/20/19 21:00 03/12/19 20:59 02/21/19 21:08 Morphine Sulfate (Morphine Sulfate) 4 mg Q4H PRN IVP For Pain 02/20/19 09:52 02/27/19 09:51 Multi-Ingredient Ointment (Eucerin) 1 applic TIDPRN PRN TOPIC To Patient Comfort 02/23/19 15:45 03/25/19 15:44 Oxycodone/ Acetaminophen (Percocet 10/325) 1 tab BID ORAL 02/20/19 18:00 02/27/19 08:59 02/23/19 08:57 Paroxetine HCl (Paxil) 40 mg DAILY ORAL 02/21/19 09:00 03/13/19 08:59 Patient Own Medication (Patient's Own Med) 1 ea BID ORAL 02/20/19 10:00 03/22/19 09:59 02/22/19 17:35 Patient Own Medication (Patient's Own Med) 1 ea DAILY ORAL 02/20/19 10:00 03/22/19 09:59 02/20/19 12:29 Patient Own Medication (Patient's Own Med) 1 ea DAILY ORAL 02/20/19 10:00 03/22/19 09:59 02/20/19 12:30 Polyethylene Glycol (Miralax) 17 gm HSPRN PRN ORAL Constipation 02/20/19 14:00 03/12/19 13:59 Pregabalin (Lyrica) 150 mg BID ORAL 02/20/19 18:00 03/22/19 08:59 02/23/19 09:01 Tamsulosin HCl (Flomax) 0.4 mg BID ORAL 02/20/19 18:00 03/12/19 17:59 02/20/19 18:41 Vancomycin HCl (Firvanq) 125 mg FOUR TIMES A DAY ORAL 02/20/19 13:00 02/26/19 23:59 02/23/19 12:29 Vitamin D (Vitamin D) 1,000 intlu DAILY ORAL 02/21/19 09:00 03/22/19 08:59 02/23/19 08:57 Allergies: Coded Allergies: CODEINE (Unverified Allergy, Unknown, 11/28/17) EMTRICITABINE (Verified Allergy, Unknown, anxiousness, 08/31/18) SULFAMETHOXAZOLE (Unverified Allergy, Unknown, 10/27/17) TENOFOVIR (Verified Allergy, Unknown, anxiousness, 08/31/18) TRIMETHOPRIM (Unverified Allergy, Unknown, 10/27/17) Subjective Awake, alert, responsive, No nausea or vomiting. feeling better, C/p fascial rash. Objective Last Vital Signs Date Time Temp Pulse Resp B/P (MAP) Pulse Ox O2 Delivery O2 Flow Rate FiO2 02/23/19 16:00 98.4 87 18 113/69 (84) 95 02/23/19 10:10 Nasal Cannula 2.0 28 Laboratory Tests Test 02/23/19 05:55 White Blood Count 9.3 K/UL (4.8-10.8) Red Blood Count 3.38 M/UL (4.70-6.10) L Hemoglobin 10.2 G/DL (14.2-18.0) L Hematocrit 31.1 % (42.0-52.0) L Mean Corpuscular Volume 92 FL (80-99) Mean Corpuscular Hemoglobin 30.1 PG (27.0-31.0) Mean Corpuscular Hemoglobin Concent 32.7 G/DL (32.0-36.0) Red Cell Distribution Width 13.7 % (11.6-14.8) Platelet Count 192 K/UL (150-450) Mean Platelet Volume 7.3 FL (6.5-10.1) Neutrophils (%) (Auto) 47.7 % (45.0-75.0) Lymphocytes (%) (Auto) 43.9 % (20.0-45.0) Monocytes (%) (Auto) 6.4 % (1.0-10.0) Eosinophils (%) (Auto) 1.4 % (0.0-3.0) Basophils (%) (Auto) 0.6 % (0.0-2.0) Sodium Level 138 MMOL/L (136-145) Potassium Level 4.2 MMOL/L (3.5-5.1) Chloride Level 107 MMOL/L (98-107) Carbon Dioxide Level 23 MMOL/L (21-32) Anion Gap 8 mmol/L (5-15) Blood Urea Nitrogen 12 mg/dL (7-18) Creatinine 1.0 MG/DL (0.55-1.30) Estimat Glomerular Filtration Rate > 60 mL/min (>60) Glucose Level 122 MG/DL (74-106) H Calcium Level 8.4 MG/DL (8.5-10.1) L Microbiology Date/Time Source Procedure Growth Status 02/21/19 18:45 Blood Blood Culture - Preliminary NO GROWTH AFTER 24 HOURS Resulted 02/21/19 18:30 Blood Blood Culture - Preliminary NO GROWTH AFTER 24 HOURS Resulted Intake and Output 02/22/19 02/23/19 19:00 07:00 Intake Total 1925 ml 800 ml Balance 1925 ml 800 ml Intake Oral 900 ml IV Total 1025 ml 800 ml # Voids 4 2 Objective General: No acute distress, awake and alert, cachectic. HEENT: NCAT, sclera anicteric, PERRL, EOMI. Neck: Supple, no significant jugular venous distention, Lungs: Good inspiratory effort,, clear to auscultation bilaterally, no Wheeze or Rales. Heart: Regular rate and rhythm, normal S1/S2, no murmurs, Abdomen: soft, nontender, nondistended. Normoactive bowel sounds, Rectal tube. Extremities: No Cyanosis , clubbing or edema. Neuro: A&O x 3, Able to move all extremities Skin: warm, perioral scaly facial rash. Assessment/Plan Assessment/Plan 1. Generalized weakness. 2. Hypertension. 3. Hypothyroidism. 4. Rectal cancer. 5. Cerebrovascular disease. 6. HIV/AIDS. 7. Paroxysmal supraventricular tachycardia. 8. Bibasilar atelectasis 9. Hypokalemia 10. Sepsis secondary to C. difficile colitis. 11. Esophagitis Plan: discuss about discharge planning , consider SNF placement. Antibiotics: Vancomycin p.o, Diflucan, Flagyl IV. Monitor laboratory as well as culture. CODE STATUS full code Carlos Barragan MD Feb 23, 2019 16:56
[2019-02-23] MEDS: Eucerin Cream 15gm TOPIC PRN (17:18)
--- NOTE | 2019-02-23 19:31 | NUR ---
HAND-OFF: Report given to CHARLEY Giles.
--- NOTE | 2019-02-23 19:38 | NUR ---
NURSE NOTES: Received report from CHARLEY Burgos. Patient is in bed, awake and alertx4. On nasal cannula 2L with no signs of distress or SOB. Patient is requesting breathing treatments, RT notified. IV intact and running D5W w/KCL 20 mEq at 75 cc/hr. Bed is locked and in lowest position. Call light in reach. Will continue to monitor.
[2019-02-23 20:00] VITALS: BP 104/64
[2019-02-24] VITALS: BP 116/67
[2019-02-24] MEDS: Eucerin Cream 15gm TOPIC PRN ×3 (01:11→18:01)
[2019-02-24] MEDS: Guaifenesin/DM 10ml syrup ORAL PRN ×3 (01:12→17:59)
[2019-02-24 04:00] VITALS: BP 122/70
[2019-02-24] MEDS: Levothyroxine 25mcg tab ORAL SCH (06:09)
[2019-02-24] MEDS: dilTIAZem HCl 90mg tab ORAL SCH ×3 (06:09→20:58)
[2019-02-24] MEDS: D5W w/KCl 20mEq 1,000 ML IV SCH ×2 (06:09→20:59)
--- NOTE | 2019-02-24 07:31 | NUR ---
HAND-OFF: Report given to CHARLEY Grhaam.
[2019-02-24 08:00] VITALS: BP 119/74
--- NOTE | 2019-02-24 08:08 | NUR ---
NURSE NOTES: received pt in bed, awake, alert, oriented. Receives IVF D5W + 20mEq KCl @ 75cc/hr LFA access. NC O2 2L/min. Bed locked at the lowest position possible, call light within easy reach, siderails x2. Will continue to monitor pt and follow up with the POC.
[2019-02-24] MEDS: Aspirin EC 81mg tab ORAL SCH (08:46)
[2019-02-24] MEDS: Vitamin D 1000 IU Tab ORAL SCH ×2 (08:47→09:00)
[2019-02-24] MEDS: Fluconazole 100mg tab ORAL SCH ×2 (08:48→09:00)
[2019-02-24] MEDS: Meloxicam 15 MG TAB ORAL SCH ×2 (08:48→09:00)
[2019-02-24] MEDS: Vancomycin oral 125mg/2.5ml ORAL SCH ×4 (08:50→20:58)
[2019-02-24] MEDS: Lyrica 75mg cap ORAL SCH ×2 (08:50→18:01)
[2019-02-24] MEDS: PARoxetine 20mg tab ORAL SCH (08:51)
[2019-02-24] MEDS: Tamsulosin 0.4mg cap ORAL SCH ×2 (08:52→09:09)
[2019-02-24] MEDS: Digoxin 0.125mg tab ORAL SCH (08:52)
[2019-02-24] MEDS: Losartan 50mg tab ORAL SCH (08:55)
[2019-02-24 12:00] VITALS: BP 124/71
--- NOTE | 2019-02-24 12:50 | Cardiac Electrophysiology PN ---
Assessment/Plan Assessment/Plan 1. Atrial fibrillation with RVR. In SR with PACs. On Cardizem 90 mg q 8 hours and Dig 0.125. Dig level 1.1.Off tele. EF 60% 2. Hypertension. On Cardizem. 3. Recurrent supraventricular tachycardia. Stable on Dig and Cardizem 4. Human immunodeficiency virus. 5. Generalized weakness. 6. Rectal cancer. 7. Cerebrovascular accident. 8. C Diff 9. Hospice care DW RN Subjective Subjective Alert in NAD, awaiting placement in SNIF with hospice. No CP or SOB Objective Last 24 Hour Vital Signs Date Time Temp Pulse Resp B/P (MAP) Pulse Ox O2 Delivery O2 Flow Rate FiO2 02/24/19 12:00 98.5 85 20 124/71 (88) 96 02/24/19 09:37 96 Nasal Cannula 2.0 28 02/24/19 09:37 76 18 96 Nasal Cannula 2.0 28 02/24/19 09:20 99.5 02/24/19 09:20 99.5 02/24/19 09:00 Nasal Cannula 2.0 02/24/19 08:55 119/74 02/24/19 08:52 91 02/24/19 08:00 99.5 91 18 119/74 (89) 92 02/24/19 06:09 83 122/70 02/24/19 04:00 98.3 83 20 122/70 (87) 98 02/24/19 00:00 99.0 79 20 116/67 (83) 94 02/23/19 21:14 109 104/71 02/23/19 21:00 Nasal Cannula 2.0 02/23/19 20:21 88 18 99 Nasal Cannula 2.0 28 02/23/19 20:10 74 18 97 Nasal Cannula 2.0 28 02/23/19 20:10 97 Nasal Cannula 2.0 28 02/23/19 20:09 72 18 97 Nasal Cannula 2.0 28 02/23/19 20:00 98.9 96 20 104/64 (77) 97 02/23/19 16:00 98.4 87 18 113/69 (84) 95 02/23/19 15:14 82 104/72 Intake and Output 02/23/19 02/24/19 18:59 06:59 Intake Total 925 ml 900 ml Balance 925 ml 900 ml Intake Oral 600 ml IV Total 325 ml 900 ml # Voids 3 3 # Bowel Movements 1 Microbiology Date/Time Source Procedure Growth Status 02/21/19 18:45 Blood Blood Culture - Preliminary NO GROWTH AFTER 48 HOURS Resulted 02/21/19 18:30 Blood Blood Culture - Preliminary NO GROWTH AFTER 48 HOURS Resulted Objective HEAD AND NECK: No JVD. LUNGS: Coarse rhonchi. CARDIOVASCULAR: regular S1 and S2 with no gallop ABDOMEN: Soft. EXTREMITIES: No pitting edema. Abel Mendez MD Feb 24, 2019 12:50
--- NOTE | 2019-02-24 14:14 | Internal Med Progress Note ---
Subjective Date of Service: Feb 24, 2019 Physician Name Trey Whitaker Attending Physician Carlos Barragan MD Current Medications Medications (Trade) Dose Ordered Sig/Roman Route PRN Reason Start Time Stop Time Status Last Admin Dose Admin Acetaminophen (Tylenol) 650 mg Q4H PRN ORAL fever 02/20/19 09:48 03/22/19 09:47 02/21/19 00:45 Albuterol/ Ipratropium (Albuterol/ Ipratropium) 3 ml Q4HRT PRN HHN sob 02/20/19 09:49 02/25/19 09:48 02/23/19 20:08 Aspirin (Ecotrin) 81 mg DAILY ORAL 02/21/19 09:00 03/22/19 08:59 02/24/19 08:46 Baclofen (Lioresal) 10 mg THREE TIMES A DAY ORAL 02/20/19 13:00 03/22/19 08:59 02/21/19 18:35 Dextrose (Dextrose 50%) 25 ml Q30M PRN IV Hypoglycemia 02/20/19 09:45 03/12/19 14:05 Dextrose (Dextrose 50%) 50 ml Q30M PRN IV hypoglycemia 02/20/19 09:45 03/12/19 14:14 Dextrose/ Electrolytes 1,000 ml @ 75 mls/hr [id number] IV 02/20/19 09:47 03/22/19 09:46 02/24/19 06:09 Digoxin (Lanoxin) 0.125 mg DAILY ORAL 02/21/19 09:00 03/16/19 08:59 02/24/19 08:52 Diltiazem HCl (Cardizem) 90 mg EVERY 8 HOURS ORAL 02/20/19 14:00 03/14/19 13:59 02/24/19 06:09 Docusate Sodium (Colace) 100 mg BIDPRN PRN ORAL Constipation 02/20/19 09:49 03/22/19 09:48 Famotidine (Pepcid) 20 mg BID ORAL 02/20/19 18:00 03/13/19 22:29 02/23/19 17:15 Fluconazole (Diflucan) 200 mg DAILY ORAL 02/21/19 09:00 03/01/19 23:59 02/23/19 08:59 Gabapentin (Neurontin) 600 mg THREE TIMES A DAY ORAL 02/20/19 13:00 03/12/19 17:59 02/22/19 09:43 Guaifenesin/ Dextromethorphan (Robitussin DM Syrup) 5 ml Q6H PRN ORAL For Cough 02/20/19 09:50 03/22/19 09:49 02/24/19 09:21 Ketoconazole (Nizoral 2% Cream) 1 applic BID TOPIC 02/20/19 18:00 03/22/19 08:59 02/24/19 08:48 Levothyroxine Sodium (Synthroid) 25 mcg DAILY@0630 ORAL 02/21/19 06:30 03/13/19 06:29 02/24/19 06:09 Lorazepam (Ativan) 1 mg BIDPRN PRN ORAL anxiety 02/20/19 09:50 02/27/19 09:49 Losartan Potassium (Cozaar) 50 mg DAILY ORAL 02/21/19 09:00 03/22/19 08:59 02/23/19 08:59 Meloxicam (Mobic) 15 mg DAILY ORAL 02/21/19 09:00 03/22/19 08:59 02/22/19 09:40 Metoclopramide HCl (Reglan) 5 mg Q6H PRN IVP Nausea & Vomiting 02/20/19 09:51 03/22/19 09:50 Metronidazole 100 ml @ 100 mls/hr Q8HR IVPB 02/20/19 14:00 03/01/19 13:59 02/24/19 06:09 Mirtazapine (Remeron) 7.5 mg BEDTIME PRN ORAL SLEEP 02/20/19 21:00 03/22/19 00:14 Mirtazapine (Remeron) 15 mg BEDTIME ORAL 02/20/19 21:00 03/12/19 20:59 02/21/19 21:08 Morphine Sulfate (Morphine Sulfate) 4 mg Q4H PRN IVP For Pain 02/20/19 09:52 02/27/19 09:51 Multi-Ingredient Ointment (Eucerin) 1 applic TIDPRN PRN TOPIC To Patient Comfort 02/23/19 15:45 03/25/19 15:44 02/24/19 08:56 Oxycodone/ Acetaminophen (Percocet 10/325) 1 tab BID ORAL 02/20/19 18:00 02/27/19 08:59 02/24/19 08:51 Paroxetine HCl (Paxil) 40 mg DAILY ORAL 02/21/19 09:00 03/13/19 08:59 02/24/19 08:51 Patient Own Medication (Patient's Own Med) 1 ea BID ORAL 02/20/19 10:00 03/22/19 09:59 02/24/19 08:54 Patient Own Medication (Patient's Own Med) 1 ea DAILY ORAL 02/20/19 10:00 03/22/19 09:59 02/24/19 08:53 Patient Own Medication (Patient's Own Med) 1 ea DAILY ORAL 02/20/19 10:00 03/22/19 09:59 02/24/19 08:54 Polyethylene Glycol (Miralax) 17 gm HSPRN PRN ORAL Constipation 02/20/19 14:00 03/12/19 13:59 Pregabalin (Lyrica) 150 mg BID ORAL 02/20/19 18:00 03/22/19 08:59 02/24/19 08:50 Tamsulosin HCl (Flomax) 0.4 mg BID ORAL 02/20/19 18:00 03/12/19 17:59 02/24/19 08:52 Vancomycin HCl (Firvanq) 125 mg FOUR TIMES A DAY ORAL 02/20/19 13:00 02/26/19 23:59 02/24/19 08:50 Vitamin D (Vitamin D) 1,000 intlu DAILY ORAL 02/21/19 09:00 03/22/19 08:59 02/23/19 08:57 Allergies: Coded Allergies: CODEINE (Unverified Allergy, Unknown, 11/28/17) EMTRICITABINE (Verified Allergy, Unknown, anxiousness, 08/31/18) SULFAMETHOXAZOLE (Unverified Allergy, Unknown, 10/27/17) TENOFOVIR (Verified Allergy, Unknown, anxiousness, 08/31/18) TRIMETHOPRIM (Unverified Allergy, Unknown, 10/27/17) ROS Limited/Unobtainable: No Constitutional: Reports: no symptoms HEENT: Reports: no symptoms Cardiovascular: Reports: no symptoms Respiratory: Reports: no symptoms Gastrointestinal/Abdominal: Reports: no symptoms Genitourinary: Reports: no symptoms 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: Reports: no symptoms Subjective 68 YO M admitted with gen weakness. Now C.Diff diarrhea. S/P endoscopy . Cover for Int Med-Dr Barragan. Await SNF placement Objective Last Vital Signs Date Time Temp Pulse Resp B/P (MAP) Pulse Ox O2 Delivery O2 Flow Rate FiO2 02/24/19 12:00 98.5 85 20 124/71 (88) 96 02/24/19 09:37 Nasal Cannula 2.0 28 Microbiology Date/Time Source Procedure Growth Status 02/21/19 18:45 Blood Blood Culture - Preliminary NO GROWTH AFTER 48 HOURS Resulted 02/21/19 18:30 Blood Blood Culture - Preliminary NO GROWTH AFTER 48 HOURS Resulted Intake and Output 02/23/19 02/24/19 18:59 06:59 Intake Total 925 ml 900 ml Balance 925 ml 900 ml Intake Oral 600 ml IV Total 325 ml 900 ml # Voids 3 3 # Bowel Movements 1 Objective PHYSICAL EXAMINATION: GENERAL: The patient is a thin-appearing white male, in no apparent distress. HEENT: Eyes, pupils are equal and responsive to light and accommodation. Extraocular movements are intact. NECK: Supple without lymphadenopathy. CHEST: Lungs are clear to auscultation bilaterally without wheezes or rales. CARDIOVASCULAR: Regular rhythm and rate. S1 and S2 are normal without murmurs, rubs, or gallops. ABDOMEN: Soft, nontender, and nondistended. Positive bowel sounds. No evidence of hepatosplenomegaly. Currently, no rebound or guarding noted. EXTREMITIES: Negative for clubbing, cyanosis, or edema. RECTAL/GENITAL: Not performed. NEUROLOGIC: Cranial nerves II through XII are grossly intact without focal deficits. Assessment/Plan Assessment/Plan ASSESSMENT: This is an 68-year-old white male. 1. Generalized weakness. 2. Hypertension. 3. Hypothyroidism. 4. Rectal cancer. 5. Cerebrovascular disease. 6. HIV. 7. Paroxysmal supraventricular tachycardia. 8. Bibasilar atelectasis 9. hypokalemia 10. Clostridium dificile diarrhea 11. pneumonia 12. dysphagia/esophagitis TREATMENT: 1. Generalized weakness. Generalized weakness may be due to deconditioning- see physical therapy note. 2. Hypertension. Continue amlodipine, losartan, and metoprolol as above. 3. Hypothyroidism. Continue Levoxyl as above. 4. Rectal cancer. The patient is followed at [facility]. 5. History of cerebrovascular accident. 6. HIV. Continue HAART as above. 7. Paroxysmal supraventricular tachycardia. Cardiology consultation is pending with Dr Mendez 8. Await CT chest 9. Replace K+ 10. CT abdomen=enterocolitis. C.Diff POSITIVE. Start vanco 11. ABX=IV flagyl and oral vanco 12. ID consult=Dr Cordero 13. Discharge planning: long-term fac=info sent to [facility] 14. S/P endoscopy 02/16/19=esophagitis Trey Whitaker MD Feb 24, 2019 14:14
[2019-02-24 16:00] VITALS: BP 110/69
--- NOTE | 2019-02-24 18:55 | NUR ---
P.T. NOTES S/P: APPROACHED PATIENT IN THE PM. PATIENT FOUND LYING IN A SEMI-BRAND'S POSITION IN BED. UPON ARRIVAL. PATIENT DECLINED P.T. TX. TODAY. EXPLAINED THE IMPORTANCE OF P.T. AND THE CONSEQUENCE OF LYING IN BED FOR A PROLONGED PERIOD OF TIME, BUT PATIENT CONT'D TO REFUSE P.T. TX. RN AWARE OF PATIENT'S STATUS. WILL F/U NEXT TX. TIME AND CONT WITH P.T. PLAN. RSABADO.
--- NOTE | 2019-02-24 19:20 | NUR ---
HAND-OFF: Report given to CHARLEY Gracia.
--- NOTE | 2019-02-24 19:45 | NUR ---
NURSE NOTES: Pt is in bed, awake and verbal. No acute distress noted. Vitas stable. Pt complains of rectal tube site pain, tube will be checked. Fall precaution in place. Bed locked low in position, side rails up and call light within reach. Bed alarm on. Pt is on aspiration precaution,HOB elevated. Pt will turned frequently. Pt will be monitored.
[2019-02-24 20:00] VITALS: BP 122/66
--- NOTE | 2019-02-24 21:00 | NUR ---
NURSE NOTES: Pt's rectal tube came out. Stool is soft and not liquid anymore. Rectal tube will be reinserted if diarrhea continues. Pt appears comfortable now.
--- NOTE | 2019-02-24 22:10 | Pulmonology Progress Note ---
Assessment/Plan Problems: (1) Sepsis (2) Febrile illness, acute (3) Atrial fibrillation (4) History of rectal cancer (5) BPH (benign prostatic hyperplasia) (6) Degenerative disc disease (7) Severe protein-calorie malnutrition (8) HIV (human immunodeficiency virus infection) Assessment/Plan doing better wbc lower not eating well continue abx, on oral vancomycin and iv flagyl check electrolytes watch the heart rate pt agreed with Hospice dc planning in process Subjective ROS Limited/Unobtainable: No HEENT: Repors: no symptoms Allergies: Coded Allergies: CODEINE (Unverified Allergy, Unknown, 11/28/17) EMTRICITABINE (Verified Allergy, Unknown, anxiousness, 08/31/18) SULFAMETHOXAZOLE (Unverified Allergy, Unknown, 10/27/17) TENOFOVIR (Verified Allergy, Unknown, anxiousness, 08/31/18) TRIMETHOPRIM (Unverified Allergy, Unknown, 10/27/17) Objective Last 24 Hour Vital Signs Date Time Temp Pulse Resp B/P (MAP) Pulse Ox O2 Delivery O2 Flow Rate FiO2 02/24/19 20:58 106 122/66 02/24/19 20:00 98.2 106 20 122/66 (84) 96 02/24/19 18:30 98.6 02/24/19 18:30 98.6 02/24/19 16:00 98.6 92 20 110/69 (83) 95 02/24/19 15:14 85 124/71 02/24/19 12:00 98.5 85 20 124/71 (88) 96 02/24/19 09:37 96 Nasal Cannula 2.0 28 02/24/19 09:37 76 18 96 Nasal Cannula 2.0 28 02/24/19 09:00 Nasal Cannula 2.0 02/24/19 08:55 119/74 02/24/19 08:52 91 02/24/19 08:00 99.5 91 18 119/74 (89) 92 02/24/19 06:09 83 122/70 02/24/19 04:00 98.3 83 20 122/70 (87) 98 02/24/19 00:00 99.0 79 20 116/67 (83) 94 Intake and Output 02/23/19 02/24/19 19:00 07:00 Intake Total 925 ml 900 ml Balance 925 ml 900 ml Intake Oral 600 ml IV Total 325 ml 900 ml # Voids 3 3 # Bowel Movements 1 Objective General Appearance: cachectic HEENT: normocephalic, atraumatic Respiratory/Chest: chest wall non-tender, lungs clear Cardiovascular: normal peripheral pulses, normal rate Abdomen: normal bowel sounds, soft, non tender Genitourinary: normal external genitalia Extremities: no clubbing Skin: no rash, no ulcers 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: client experience consultant II-XII grossly normal Musculoskeletal: normal muscle bulk Current Medications Medications (Trade) Dose Ordered Sig/Roman Route PRN Reason Start Time Stop Time Status Last Admin Dose Admin Acetaminophen (Tylenol) 650 mg Q4H PRN ORAL fever 02/20/19 09:48 03/22/19 09:47 02/21/19 00:45 Albuterol/ Ipratropium (Albuterol/ Ipratropium) 3 ml Q4HRT PRN HHN sob 02/20/19 09:49 02/25/19 09:48 02/23/19 20:08 Aspirin (Ecotrin) 81 mg DAILY ORAL 02/21/19 09:00 03/22/19 08:59 02/24/19 08:46 Baclofen (Lioresal) 10 mg THREE TIMES A DAY ORAL 02/20/19 13:00 03/22/19 08:59 02/21/19 18:35 Dextrose (Dextrose 50%) 25 ml Q30M PRN IV Hypoglycemia 02/20/19 09:45 03/12/19 14:05 Dextrose (Dextrose 50%) 50 ml Q30M PRN IV hypoglycemia 02/20/19 09:45 03/12/19 14:14 Dextrose/ Electrolytes 1,000 ml @ 75 mls/hr [id number] IV 02/20/19 09:47 03/22/19 09:46 02/24/19 20:59 Digoxin (Lanoxin) 0.125 mg DAILY ORAL 02/21/19 09:00 03/16/19 08:59 02/24/19 08:52 Diltiazem HCl (Cardizem) 90 mg EVERY 8 HOURS ORAL 02/20/19 14:00 03/14/19 13:59 02/24/19 20:58 Docusate Sodium (Colace) 100 mg BIDPRN PRN ORAL Constipation 02/20/19 09:49 03/22/19 09:48 Famotidine (Pepcid) 20 mg BID ORAL 02/20/19 18:00 03/13/19 22:29 02/24/19 17:59 Fluconazole (Diflucan) 200 mg DAILY ORAL 02/21/19 09:00 03/01/19 23:59 02/23/19 08:59 Gabapentin (Neurontin) 600 mg THREE TIMES A DAY ORAL 02/20/19 13:00 03/12/19 17:59 02/24/19 17:59 Guaifenesin/ Dextromethorphan (Robitussin DM Syrup) 5 ml Q6H PRN ORAL For Cough 02/20/19 09:50 03/22/19 09:49 02/24/19 17:59 Ketoconazole (Nizoral 2% Cream) 1 applic BID TOPIC 02/20/19 18:00 03/22/19 08:59 02/24/19 08:48 Levothyroxine Sodium (Synthroid) 25 mcg DAILY@0630 ORAL 02/21/19 06:30 03/13/19 06:29 02/24/19 06:09 Lorazepam (Ativan) 1 mg BIDPRN PRN ORAL anxiety 02/20/19 09:50 02/27/19 09:49 Losartan Potassium (Cozaar) 50 mg DAILY ORAL 02/21/19 09:00 03/22/19 08:59 02/23/19 08:59 Meloxicam (Mobic) 15 mg DAILY ORAL 02/21/19 09:00 03/22/19 08:59 02/22/19 09:40 Metoclopramide HCl (Reglan) 5 mg Q6H PRN IVP Nausea & Vomiting 02/20/19 09:51 03/22/19 09:50 Metronidazole 100 ml @ 100 mls/hr Q8HR IVPB 02/20/19 14:00 03/01/19 13:59 02/24/19 20:58 Mirtazapine (Remeron) 7.5 mg BEDTIME PRN ORAL SLEEP 02/20/19 21:00 03/22/19 00:14 Mirtazapine (Remeron) 15 mg BEDTIME ORAL 02/20/19 21:00 03/12/19 20:59 02/24/19 20:57 Morphine Sulfate (Morphine Sulfate) 4 mg Q4H PRN IVP For Pain 02/20/19 09:52 02/27/19 09:51 Multi-Ingredient Ointment (Eucerin) 1 applic TIDPRN PRN TOPIC To Patient Comfort 02/23/19 15:45 03/25/19 15:44 02/24/19 18:01 Oxycodone/ Acetaminophen (Percocet 10/325) 1 tab BID ORAL 02/20/19 18:00 02/27/19 08:59 02/24/19 18:00 Paroxetine HCl (Paxil) 40 mg DAILY ORAL 02/21/19 09:00 03/13/19 08:59 02/24/19 08:51 Patient Own Medication (Patient's Own Med) 1 ea BID ORAL 02/20/19 10:00 03/22/19 09:59 02/24/19 18:00 Patient Own Medication (Patient's Own Med) 1 ea DAILY ORAL 02/20/19 10:00 03/22/19 09:59 02/24/19 08:53 Patient Own Medication (Patient's Own Med) 1 ea DAILY ORAL 02/20/19 10:00 03/22/19 09:59 02/24/19 08:54 Polyethylene Glycol (Miralax) 17 gm HSPRN PRN ORAL Constipation 02/20/19 14:00 03/12/19 13:59 Pregabalin (Lyrica) 150 mg BID ORAL 02/20/19 18:00 03/22/19 08:59 02/24/19 18:01 Tamsulosin HCl (Flomax) 0.4 mg BID ORAL 02/20/19 18:00 03/12/19 17:59 02/24/19 08:52 Vancomycin HCl (Firvanq) 125 mg FOUR TIMES A DAY ORAL 02/20/19 13:00 02/26/19 23:59 02/24/19 20:58 Vitamin D (Vitamin D) 1,000 intlu DAILY ORAL 02/21/19 09:00 03/22/19 08:59 02/23/19 08:57 Oliverio Rm MD Feb 24, 2019 22:10
[2019-02-25] VITALS: BP 126/65
[2019-02-25 04:00] VITALS: BP 131/84
[2019-02-25] MEDS: dilTIAZem HCl 90mg tab ORAL SCH ×3 (05:31→21:26)
[2019-02-25] MEDS: Levothyroxine 25mcg tab ORAL SCH (05:31)
--- NOTE | 2019-02-25 06:45 | NUR ---
NURSE NOTES: Dr. Germain is called regarding the rectal tube. Dr. Garland called back and ordered to removed the rectal tube as the patient is no longer having diarrhea.
--- NOTE | 2019-02-25 07:05 | NUR ---
HAND-OFF: Report given to CHARLEY Graham.
--- NOTE | 2019-02-25 07:41 | NUR ---
NURSE NOTES: received pt in bed, asleep, no sign of distress noted. . Receives IVF D5W + 20mEq KCl @ 75cc/hr LFA access. NC O2 2L/min. Bed locked at the lowest position possible, call light within easy reach, siderails x2. Will continue to monitor pt and follow up with the POC.
[2019-02-25 08:00] VITALS: BP 103/64
[2019-02-25] MEDS: Tamsulosin 0.4mg cap ORAL SCH ×2 (09:00→17:46)
[2019-02-25] MEDS: Vitamin D 1000 IU Tab ORAL SCH (09:00)
[2019-02-25] MEDS: Losartan 50mg tab ORAL SCH (09:00)
[2019-02-25] MEDS: Meloxicam 15 MG TAB ORAL SCH (09:00)
[2019-02-25] MEDS: D5W w/KCl 20mEq 1,000 ML IV SCH ×2 (09:47→14:23)
[2019-02-25] MEDS: Eucerin Cream 15gm TOPIC PRN (10:10)
[2019-02-25] MEDS: PARoxetine 20mg tab ORAL SCH (10:11)
[2019-02-25] MEDS: Vancomycin oral 125mg/2.5ml ORAL SCH ×4 (10:11→20:17)
[2019-02-25] MEDS: Fluconazole 100mg tab ORAL SCH (10:12)
[2019-02-25] MEDS: Digoxin 0.125mg tab ORAL SCH (10:12)
[2019-02-25] MEDS: Aspirin EC 81mg tab ORAL SCH (10:12)
[2019-02-25] MEDS: Lyrica 75mg cap ORAL SCH ×2 (10:13→17:47)
[2019-02-25] MEDS: Guaifenesin/DM 10ml syrup ORAL PRN ×3 (10:16→23:37)
[2019-02-25 12:00] VITALS: BP 98/60
--- NOTE | 2019-02-25 12:48 | Internal Med Progress Note ---
Subjective Date of Service: Feb 25, 2019 Physician Name Trey Whitaker Attending Physician Carlos Barragan MD Current Medications Medications (Trade) Dose Ordered Sig/Roman Route PRN Reason Start Time Stop Time Status Last Admin Dose Admin Acetaminophen (Tylenol) 650 mg Q4H PRN ORAL fever 02/20/19 09:48 03/22/19 09:47 02/21/19 00:45 Aspirin (Ecotrin) 81 mg DAILY ORAL 02/21/19 09:00 03/22/19 08:59 02/25/19 10:12 Baclofen (Lioresal) 10 mg THREE TIMES A DAY ORAL 02/20/19 13:00 03/22/19 08:59 02/21/19 18:35 Dextrose (Dextrose 50%) 25 ml Q30M PRN IV Hypoglycemia 02/20/19 09:45 03/12/19 14:05 Dextrose (Dextrose 50%) 50 ml Q30M PRN IV hypoglycemia 02/20/19 09:45 03/12/19 14:14 Dextrose/ Electrolytes 1,000 ml @ 75 mls/hr [id number] IV 02/20/19 09:47 03/22/19 09:46 02/24/19 20:59 Digoxin (Lanoxin) 0.125 mg DAILY ORAL 02/21/19 09:00 03/16/19 08:59 02/25/19 10:12 Diltiazem HCl (Cardizem) 90 mg EVERY 8 HOURS ORAL 02/20/19 14:00 03/14/19 13:59 02/25/19 05:31 Docusate Sodium (Colace) 100 mg BIDPRN PRN ORAL Constipation 02/20/19 09:49 03/22/19 09:48 Famotidine (Pepcid) 20 mg BID ORAL 02/20/19 18:00 03/13/19 22:29 02/24/19 17:59 Fluconazole (Diflucan) 200 mg DAILY ORAL 02/21/19 09:00 03/01/19 23:59 02/25/19 10:12 Gabapentin (Neurontin) 600 mg THREE TIMES A DAY ORAL 02/20/19 13:00 03/12/19 17:59 02/24/19 17:59 Guaifenesin/ Dextromethorphan (Robitussin DM Syrup) 5 ml Q6H PRN ORAL For Cough 02/20/19 09:50 03/22/19 09:49 02/25/19 10:16 Ketoconazole (Nizoral 2% Cream) 1 applic BID TOPIC 02/20/19 18:00 03/22/19 08:59 02/24/19 08:48 Levothyroxine Sodium (Synthroid) 25 mcg DAILY@0630 ORAL 02/21/19 06:30 03/13/19 06:29 02/25/19 05:31 Lorazepam (Ativan) 1 mg BIDPRN PRN ORAL anxiety 02/20/19 09:50 02/27/19 09:49 Losartan Potassium (Cozaar) 50 mg DAILY ORAL 02/21/19 09:00 03/22/19 08:59 02/23/19 08:59 Meloxicam (Mobic) 15 mg DAILY ORAL 02/21/19 09:00 03/22/19 08:59 02/22/19 09:40 Metoclopramide HCl (Reglan) 5 mg Q6H PRN IVP Nausea & Vomiting 02/20/19 09:51 03/22/19 09:50 Metronidazole 100 ml @ 100 mls/hr Q8HR IVPB 02/20/19 14:00 03/01/19 13:59 02/25/19 05:31 Mirtazapine (Remeron) 7.5 mg BEDTIME PRN ORAL SLEEP 02/20/19 21:00 03/22/19 00:14 Mirtazapine (Remeron) 15 mg BEDTIME ORAL 02/20/19 21:00 03/12/19 20:59 02/24/19 20:57 Morphine Sulfate (Morphine Sulfate) 4 mg Q4H PRN IVP For Pain 02/20/19 09:52 02/27/19 09:51 Multi-Ingredient Ointment (Eucerin) 1 applic TIDPRN PRN TOPIC To Patient Comfort 02/23/19 15:45 03/25/19 15:44 02/25/19 10:10 Oxycodone/ Acetaminophen (Percocet 10/325) 1 tab BID ORAL 02/20/19 18:00 02/27/19 08:59 02/25/19 10:13 Paroxetine HCl (Paxil) 40 mg DAILY ORAL 02/21/19 09:00 03/13/19 08:59 02/25/19 10:11 Patient Own Medication (Patient's Own Med) 1 ea BID ORAL 02/20/19 10:00 03/22/19 09:59 02/25/19 10:11 Patient Own Medication (Patient's Own Med) 1 ea DAILY ORAL 02/20/19 10:00 03/22/19 09:59 02/25/19 10:10 Patient Own Medication (Patient's Own Med) 1 ea DAILY ORAL 02/20/19 10:00 03/22/19 09:59 02/25/19 10:11 Polyethylene Glycol (Miralax) 17 gm HSPRN PRN ORAL Constipation 02/20/19 14:00 03/12/19 13:59 Pregabalin (Lyrica) 150 mg BID ORAL 02/20/19 18:00 03/22/19 08:59 02/25/19 10:13 Tamsulosin HCl (Flomax) 0.4 mg BID ORAL 02/20/19 18:00 03/12/19 17:59 02/24/19 08:52 Vancomycin HCl (Firvanq) 125 mg FOUR TIMES A DAY ORAL 02/20/19 13:00 02/26/19 23:59 02/25/19 10:11 Vitamin D (Vitamin D) 1,000 intlu DAILY ORAL 02/21/19 09:00 03/22/19 08:59 02/23/19 08:57 Allergies: Coded Allergies: CODEINE (Unverified Allergy, Unknown, 11/28/17) EMTRICITABINE (Verified Allergy, Unknown, anxiousness, 08/31/18) SULFAMETHOXAZOLE (Unverified Allergy, Unknown, 10/27/17) TENOFOVIR (Verified Allergy, Unknown, anxiousness, 08/31/18) TRIMETHOPRIM (Unverified Allergy, Unknown, 10/27/17) ROS Limited/Unobtainable: No Constitutional: Reports: no symptoms HEENT: Reports: no symptoms Cardiovascular: Reports: no symptoms Respiratory: Reports: no symptoms Gastrointestinal/Abdominal: Reports: no symptoms Genitourinary: Reports: no symptoms 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: Reports: no symptoms Subjective 68 YO M admitted with gen weakness. Now C.Diff diarrhea. S/P endoscopy . Cover for Int Med-Dr Barragan. Await SNF placement Objective Last Vital Signs Date Time Temp Pulse Resp B/P (MAP) Pulse Ox O2 Delivery O2 Flow Rate FiO2 02/25/19 12:00 99.2 73 20 98/60 (73) 96 02/25/19 09:00 Nasal Cannula 2.0 02/25/19 08:10 28 Intake and Output 02/24/19 02/25/19 19:00 07:00 Intake Total 765 ml 775 ml Balance 765 ml 775 ml Intake Oral 240 ml IV Total 525 ml 775 ml # Voids 4 3 Objective PHYSICAL EXAMINATION: GENERAL: The patient is a thin-appearing white male, in no apparent distress. HEENT: Eyes, pupils are equal and responsive to light and accommodation. Extraocular movements are intact. NECK: Supple without lymphadenopathy. CHEST: Lungs are clear to auscultation bilaterally without wheezes or rales. CARDIOVASCULAR: Regular rhythm and rate. S1 and S2 are normal without murmurs, rubs, or gallops. ABDOMEN: Soft, nontender, and nondistended. Positive bowel sounds. No evidence of hepatosplenomegaly. Currently, no rebound or guarding noted. EXTREMITIES: Negative for clubbing, cyanosis, or edema. RECTAL/GENITAL: Not performed. NEUROLOGIC: Cranial nerves II through XII are grossly intact without focal deficits. Assessment/Plan Assessment/Plan ASSESSMENT: This is an 68-year-old white male. 1. Generalized weakness. 2. Hypertension. 3. Hypothyroidism. 4. Rectal cancer. 5. Cerebrovascular disease. 6. HIV. 7. Paroxysmal supraventricular tachycardia. 8. Bibasilar atelectasis 9. hypokalemia 10. Clostridium dificile diarrhea 11. pneumonia 12. dysphagia/esophagitis TREATMENT: 1. Generalized weakness. Generalized weakness may be due to deconditioning- see physical therapy note. 2. Hypertension. Continue amlodipine, losartan, and metoprolol as above. 3. Hypothyroidism. Continue Levoxyl as above. 4. Rectal cancer. The patient is followed at [facility]. 5. History of cerebrovascular accident. 6. HIV. Continue HAART as above. 7. Paroxysmal supraventricular tachycardia. Cardiology consultation is pending with Dr Mendez 8. Await CT chest 9. Replace K+ 10. CT abdomen=enterocolitis. C.Diff POSITIVE. Start vanco 11. ABX=IV flagyl and oral vanco 12. ID consult=Dr Cordero 13. Discharge planning: correction fac=info sent to [facility] 14. S/P endoscopy 02/16/19=esophagitis Trey Whitaker MD Feb 25, 2019 12:48
[2019-02-25 16:00] VITALS: BP 128/64
--- NOTE | 2019-02-25 18:01 | Infectious Diseases Prog Note ---
Assessment/Plan Assessment/Plan Assessment: Sepsis--Cdiff colitis, 1st recurrence ; improving -02/17 CXR: No acute findings. -CT abd/p: Sigmoid and rectal colonic wall thickening with some mucosal edema along with scattered small bowel loops with bowel wall thickening suggestive of enterocolitis. Duodenal wall thickening with associated fat stranding, which may share etiology with enterocolitis; however, correlation with lipase is recommended to exclude groove pancreatitis. Evidence of infectious/inflammatory small airways disease; patchy left basilar airspace consolidation raises possibility of developing pneumonia. Refluxing esophagus with distal esophageal wall thickening; correlation with recent endoscopy is recommended. -CXR: Bibasilar opacities likely representing subsegmental atelectasis. -u/a neg -BCx Neg -normal lipase and amylase -sp cx: normal resp thomas -stool cx neg Fever; recurrent; SP Leukocytosis,SP Veda Esophagitis- -bx - no malignancy, fungal stains+ for Veda sp, neg stains for CMV, HSV -/ SP EGD: Severe distal esophagitis, atypical, questionable severe Veda esophagitis versus ischemic esophagitis, status post biopsy and brushing.Duodenal ulcerations. Gastritis, status post biopsy. hx of Cdiff 09/2018- - failed oral vancomycin; sp tx w/ Fidaxomicin --09/06 Cdiff toxin a/b +; repeat Cdiff neg x2 -09/06 SP Colonoscopy: proctitis -stool cx: normal thomas -Giardia ag, cryptosporidium neg Hx of UTI 08/2018 -u/a wbc 10-15, shirley neg, leuk +3; ucx >100K PROTEUS MIRABILIS ( I Levo; R Amp, bactrim, Cipro, Nitro; S Ceftriaxone) HIV/AIDS- on ARV =02/19 CD4 407 (11%) -11/19 CD4 392 (17.4%) -09/2018 182 (10.1%), VL UD -11/2017 CD4 323 Rectal CA (ongoing w/u at [facility]) CVA 2004 HTN Plan: -Cont oral vancomycin #13/14 -Cont IV Flagyl #10 as patient refusing some doses of oral vancomycin -Fluconazole #10/10-14 -02/14 SP IV Vancomycin, Zosyn #4 -12/01 Sp Cefepime #14, Flagyl #14 -11/22 SP IV Vancomycin #6 -11/17 SP Zosyn x1 -09/23 SP Fidaxomicin #10 -09/13/18 SP PO Vancomycin #8 -f/u cx -Monitor CBC/CMP, temperatures Thank you for this consultation. Will continue to follow along with you. Subjective Allergies: Coded Allergies: CODEINE (Unverified Allergy, Unknown, 11/28/17) EMTRICITABINE (Verified Allergy, Unknown, anxiousness, 08/31/18) SULFAMETHOXAZOLE (Unverified Allergy, Unknown, 10/27/17) TENOFOVIR (Verified Allergy, Unknown, anxiousness, 08/31/18) TRIMETHOPRIM (Unverified Allergy, Unknown, 10/27/17) Subjective afebrile diarrhea resolved Bcx NTD Objective Vital Signs Last 24 Hour Vital Signs Date Time Temp Pulse Resp B/P (MAP) Pulse Ox O2 Delivery O2 Flow Rate FiO2 02/25/19 16:00 97.9 72 18 128/64 (85) 97 02/25/19 12:59 73 98/60 02/25/19 12:00 99.2 73 20 98/60 (73) 96 02/25/19 10:43 98.1 02/25/19 10:43 98.1 02/25/19 10:12 87 02/25/19 09:00 Nasal Cannula 2.0 02/25/19 09:00 103/64 02/25/19 08:10 87 15 97 Nasal Cannula 2.0 28 02/25/19 08:10 97 Nasal Cannula 2.0 28 02/25/19 08:00 98.1 71 20 103/64 (77) 95 02/25/19 05:31 82 131/84 02/25/19 04:00 97.4 82 18 131/84 (100) 95 02/25/19 00:00 98.0 110 20 126/65 (85) 95 02/24/19 21:00 Nasal Cannula 2.0 02/24/19 20:58 106 122/66 02/24/19 20:00 96 Nasal Cannula 2.0 28 02/24/19 20:00 99 18 96 Nasal Cannula 2.0 28 02/24/19 20:00 98.2 106 20 122/66 (84) 96 Height (Feet): 5 Height (Inches): 5.00 Weight (Pounds): 152 Objective GENERAL: The patient is a thin-appearing white male, in no apparent distress. HEENT: Eyes, pupils are equal and responsive to light and accommodation. Extraocular movements are intact. NECK: Supple without lymphadenopathy. CHEST: Lungs are clear to auscultation bilaterally without wheezes or rales. CARDIOVASCULAR: Regular rhythm and rate. S1 and S2 are normal without murmurs, rubs, or gallops. ABDOMEN: Soft, nontender, and nondistended. Positive bowel sounds. No evidence of hepatosplenomegaly. Currently, no rebound or guarding noted. EXTREMITIES: Negative for clubbing, cyanosis, or edema. NEUROLOGIC: Cranial nerves II through XII are grossly intact without focal deficits. Current Medications Medications (Trade) Dose Ordered Sig/Roman Route PRN Reason Start Time Stop Time Status Last Admin Dose Admin Acetaminophen (Tylenol) 650 mg Q4H PRN ORAL fever 02/20/19 09:48 03/22/19 09:47 02/21/19 00:45 Albuterol/ Ipratropium (Albuterol/ Ipratropium) 3 ml Q4H PRN HHN Shortness of Breath 02/25/19 16:45 03/02/19 16:44 Aspirin (Ecotrin) 81 mg DAILY ORAL 02/21/19 09:00 03/22/19 08:59 02/25/19 10:12 Baclofen (Lioresal) 10 mg THREE TIMES A DAY ORAL 02/20/19 13:00 03/22/19 08:59 02/21/19 18:35 Dextrose (Dextrose 50%) 25 ml Q30M PRN IV Hypoglycemia 02/20/19 09:45 03/12/19 14:05 Dextrose (Dextrose 50%) 50 ml Q30M PRN IV hypoglycemia 02/20/19 09:45 03/12/19 14:14 Dextrose/ Electrolytes 1,000 ml @ 75 mls/hr [id number] IV 02/20/19 09:47 03/22/19 09:46 02/25/19 14:23 Digoxin (Lanoxin) 0.125 mg DAILY ORAL 02/21/19 09:00 03/16/19 08:59 02/25/19 10:12 Diltiazem HCl (Cardizem) 90 mg EVERY 8 HOURS ORAL 02/20/19 14:00 03/14/19 13:59 02/25/19 05:31 Docusate Sodium (Colace) 100 mg BIDPRN PRN ORAL Constipation 02/20/19 09:49 03/22/19 09:48 Famotidine (Pepcid) 20 mg BID ORAL 02/20/19 18:00 03/13/19 22:29 02/25/19 17:47 Fluconazole (Diflucan) 200 mg DAILY ORAL 02/21/19 09:00 03/01/19 23:59 02/25/19 10:12 Gabapentin (Neurontin) 600 mg THREE TIMES A DAY ORAL 02/20/19 13:00 03/12/19 17:59 02/25/19 17:46 Guaifenesin/ Dextromethorphan (Robitussin DM Syrup) 5 ml Q6H PRN ORAL For Cough 02/20/19 09:50 03/22/19 09:49 02/25/19 16:49 Ketoconazole (Nizoral 2% Cream) 1 applic BID TOPIC 02/20/19 18:00 03/22/19 08:59 02/24/19 08:48 Levothyroxine Sodium (Synthroid) 25 mcg DAILY@0630 ORAL 02/21/19 06:30 03/13/19 06:29 02/25/19 05:31 Lorazepam (Ativan) 1 mg BIDPRN PRN ORAL anxiety 02/20/19 09:50 02/27/19 09:49 Losartan Potassium (Cozaar) 50 mg DAILY ORAL 02/21/19 09:00 03/22/19 08:59 02/23/19 08:59 Meloxicam (Mobic) 15 mg DAILY ORAL 02/21/19 09:00 03/22/19 08:59 02/22/19 09:40 Metoclopramide HCl (Reglan) 5 mg Q6H PRN IVP Nausea & Vomiting 02/20/19 09:51 03/22/19 09:50 Metronidazole 100 ml @ 100 mls/hr Q8HR IVPB 02/20/19 14:00 03/01/19 13:59 02/25/19 13:04 Mirtazapine (Remeron) 7.5 mg BEDTIME PRN ORAL SLEEP 02/20/19 21:00 03/22/19 00:14 Mirtazapine (Remeron) 15 mg BEDTIME ORAL 02/20/19 21:00 03/12/19 20:59 02/24/19 20:57 Morphine Sulfate (Morphine Sulfate) 4 mg Q4H PRN IVP For Pain 02/20/19 09:52 02/27/19 09:51 Multi-Ingredient Ointment (Eucerin) 1 applic TIDPRN PRN TOPIC To Patient Comfort 02/23/19 15:45 03/25/19 15:44 02/25/19 10:10 Oxycodone/ Acetaminophen (Percocet 10/325) 1 tab BID ORAL 02/20/19 18:00 02/27/19 08:59 02/25/19 17:47 Paroxetine HCl (Paxil) 40 mg DAILY ORAL 02/21/19 09:00 03/13/19 08:59 02/25/19 10:11 Patient Own Medication (Patient's Own Med) 1 ea BID ORAL 02/20/19 10:00 03/22/19 09:59 02/25/19 17:49 Patient Own Medication (Patient's Own Med) 1 ea DAILY ORAL 02/20/19 10:00 03/22/19 09:59 02/25/19 10:10 Patient Own Medication (Patient's Own Med) 1 ea DAILY ORAL 02/20/19 10:00 03/22/19 09:59 02/25/19 10:11 Polyethylene Glycol (Miralax) 17 gm HSPRN PRN ORAL Constipation 02/20/19 14:00 03/12/19 13:59 Pregabalin (Lyrica) 150 mg BID ORAL 02/20/19 18:00 03/22/19 08:59 02/25/19 17:47 Tamsulosin HCl (Flomax) 0.4 mg BID ORAL 02/20/19 18:00 03/12/19 17:59 02/25/19 17:46 Vancomycin HCl (Firvanq) 125 mg FOUR TIMES A DAY ORAL 02/20/19 13:00 02/26/19 23:59 02/25/19 17:46 Vitamin D (Vitamin D) 1,000 intlu DAILY ORAL 02/21/19 09:00 03/22/19 08:59 02/23/19 08:57 Miranda Cordero M.D. Feb 25, 2019 18:01
--- NOTE | 2019-02-25 19:30 | NUR ---
NURSE NOTES: Patient awake in bed, no complaints at this time except waiting for his inhalation, RT is at bedside. Vital signs are taken by MRI TECHNICIAN. Instructed the use of call light. Call light and needs are in reach. Bed in lowest position, lock engaged and alarm on. Will continue to monitor.
--- NOTE | 2019-02-25 19:30 | NUR ---
HAND-OFF: Report given to CHARLEY Prakash.
[2019-02-25] MEDS: Albuterol/Ipratropium 3ml neb HHN PRN (19:31)
--- NOTE | 2019-02-25 19:36 | Pulmonology Progress Note ---
Assessment/Plan Problems: (1) Sepsis (2) Febrile illness, acute (3) Atrial fibrillation (4) History of rectal cancer (5) BPH (benign prostatic hyperplasia) (6) Degenerative disc disease (7) Severe protein-calorie malnutrition (8) HIV (human immunodeficiency virus infection) Assessment/Plan doing better wbc lower not eating well continue abx, on oral vancomycin and iv flagyl check electrolytes watch the heart rate pt agreed with Hospice dc planning in process Subjective ROS Limited/Unobtainable: No Constitutional: Reports: no symptoms HEENT: Repors: no symptoms Allergies: Coded Allergies: CODEINE (Unverified Allergy, Unknown, 11/28/17) EMTRICITABINE (Verified Allergy, Unknown, anxiousness, 08/31/18) SULFAMETHOXAZOLE (Unverified Allergy, Unknown, 10/27/17) TENOFOVIR (Verified Allergy, Unknown, anxiousness, 08/31/18) TRIMETHOPRIM (Unverified Allergy, Unknown, 10/27/17) Objective Last 24 Hour Vital Signs Date Time Temp Pulse Resp B/P (MAP) Pulse Ox O2 Delivery O2 Flow Rate FiO2 02/25/19 18:17 97.9 02/25/19 18:17 97.9 02/25/19 16:00 97.9 72 18 128/64 (85) 97 02/25/19 12:59 73 98/60 02/25/19 12:00 99.2 73 20 98/60 (73) 96 02/25/19 10:12 87 02/25/19 09:00 Nasal Cannula 2.0 02/25/19 09:00 103/64 02/25/19 08:10 87 15 97 Nasal Cannula 2.0 28 02/25/19 08:10 97 Nasal Cannula 2.0 28 02/25/19 08:00 98.1 71 20 103/64 (77) 95 02/25/19 05:31 82 131/84 02/25/19 04:00 97.4 82 18 131/84 (100) 95 02/25/19 00:00 98.0 110 20 126/65 (85) 95 02/24/19 21:00 Nasal Cannula 2.0 02/24/19 20:58 106 122/66 02/24/19 20:00 96 Nasal Cannula 2.0 28 02/24/19 20:00 99 18 96 Nasal Cannula 2.0 28 02/24/19 20:00 98.2 106 20 122/66 (84) 96 Intake and Output 02/24/19 02/25/19 18:59 06:59 Intake Total 1165 ml 775 ml Balance 1165 ml 775 ml Intake Oral 240 ml IV Total 925 ml 775 ml # Voids 4 3 Objective General Appearance: cachectic HEENT: normocephalic, atraumatic Respiratory/Chest: chest wall non-tender, lungs clear Cardiovascular: normal peripheral pulses, normal rate Abdomen: normal bowel sounds, soft, non tender Genitourinary: normal external genitalia Extremities: no clubbing Skin: no rash, no ulcers 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: tire repairer II-XII grossly normal Musculoskeletal: normal muscle bulk Current Medications Medications (Trade) Dose Ordered Sig/Roman Route PRN Reason Start Time Stop Time Status Last Admin Dose Admin Acetaminophen (Tylenol) 650 mg Q4H PRN ORAL fever 02/20/19 09:48 03/22/19 09:47 02/21/19 00:45 Albuterol/ Ipratropium (Albuterol/ Ipratropium) 3 ml Q4H PRN HHN Shortness of Breath 02/25/19 16:45 03/02/19 16:44 02/25/19 19:31 Aspirin (Ecotrin) 81 mg DAILY ORAL 02/21/19 09:00 03/22/19 08:59 02/25/19 10:12 Baclofen (Lioresal) 10 mg THREE TIMES A DAY ORAL 02/20/19 13:00 03/22/19 08:59 02/21/19 18:35 Dextrose (Dextrose 50%) 25 ml Q30M PRN IV Hypoglycemia 02/20/19 09:45 03/12/19 14:05 Dextrose (Dextrose 50%) 50 ml Q30M PRN IV hypoglycemia 02/20/19 09:45 03/12/19 14:14 Dextrose/ Electrolytes 1,000 ml @ 75 mls/hr [id number] IV 02/20/19 09:47 03/22/19 09:46 02/25/19 14:23 Digoxin (Lanoxin) 0.125 mg DAILY ORAL 02/21/19 09:00 03/16/19 08:59 02/25/19 10:12 Diltiazem HCl (Cardizem) 90 mg EVERY 8 HOURS ORAL 02/20/19 14:00 03/14/19 13:59 02/25/19 05:31 Docusate Sodium (Colace) 100 mg BIDPRN PRN ORAL Constipation 02/20/19 09:49 03/22/19 09:48 Famotidine (Pepcid) 20 mg BID ORAL 02/20/19 18:00 03/13/19 22:29 02/25/19 17:47 Fluconazole (Diflucan) 200 mg DAILY ORAL 02/21/19 09:00 03/01/19 23:59 02/25/19 10:12 Gabapentin (Neurontin) 600 mg THREE TIMES A DAY ORAL 02/20/19 13:00 03/12/19 17:59 02/25/19 17:46 Guaifenesin/ Dextromethorphan (Robitussin DM Syrup) 5 ml Q6H PRN ORAL For Cough 02/20/19 09:50 03/22/19 09:49 02/25/19 16:49 Ketoconazole (Nizoral 2% Cream) 1 applic BID TOPIC 02/20/19 18:00 03/22/19 08:59 02/24/19 08:48 Levothyroxine Sodium (Synthroid) 25 mcg DAILY@0630 ORAL 02/21/19 06:30 03/13/19 06:29 02/25/19 05:31 Lorazepam (Ativan) 1 mg BIDPRN PRN ORAL anxiety 02/20/19 09:50 02/27/19 09:49 Losartan Potassium (Cozaar) 50 mg DAILY ORAL 02/21/19 09:00 03/22/19 08:59 02/23/19 08:59 Meloxicam (Mobic) 15 mg DAILY ORAL 02/21/19 09:00 03/22/19 08:59 02/22/19 09:40 Metoclopramide HCl (Reglan) 5 mg Q6H PRN IVP Nausea & Vomiting 02/20/19 09:51 03/22/19 09:50 Metronidazole 100 ml @ 100 mls/hr Q8HR IVPB 02/20/19 14:00 03/01/19 13:59 02/25/19 13:04 Mirtazapine (Remeron) 7.5 mg BEDTIME PRN ORAL SLEEP 02/20/19 21:00 03/22/19 00:14 Mirtazapine (Remeron) 15 mg BEDTIME ORAL 02/20/19 21:00 03/12/19 20:59 02/24/19 20:57 Morphine Sulfate (Morphine Sulfate) 4 mg Q4H PRN IVP For Pain 02/20/19 09:52 02/27/19 09:51 Multi-Ingredient Ointment (Eucerin) 1 applic TIDPRN PRN TOPIC To Patient Comfort 02/23/19 15:45 03/25/19 15:44 02/25/19 10:10 Oxycodone/ Acetaminophen (Percocet 10/325) 1 tab BID ORAL 02/20/19 18:00 02/27/19 08:59 02/25/19 17:47 Paroxetine HCl (Paxil) 40 mg DAILY ORAL 02/21/19 09:00 03/13/19 08:59 02/25/19 10:11 Patient Own Medication (Patient's Own Med) 1 ea BID ORAL 02/20/19 10:00 03/22/19 09:59 02/25/19 17:49 Patient Own Medication (Patient's Own Med) 1 ea DAILY ORAL 02/20/19 10:00 03/22/19 09:59 02/25/19 10:10 Patient Own Medication (Patient's Own Med) 1 ea DAILY ORAL 02/20/19 10:00 03/22/19 09:59 02/25/19 10:11 Polyethylene Glycol (Miralax) 17 gm HSPRN PRN ORAL Constipation 02/20/19 14:00 03/12/19 13:59 Pregabalin (Lyrica) 150 mg BID ORAL 02/20/19 18:00 03/22/19 08:59 02/25/19 17:47 Tamsulosin HCl (Flomax) 0.4 mg BID ORAL 02/20/19 18:00 03/12/19 17:59 02/25/19 17:46 Vancomycin HCl (Firvanq) 125 mg FOUR TIMES A DAY ORAL 02/20/19 13:00 02/26/19 23:59 02/25/19 17:46 Vitamin D (Vitamin D) 1,000 intlu DAILY ORAL 02/21/19 09:00 03/22/19 08:59 02/23/19 08:57 Oliverio Rm MD Feb 25, 2019 19:36
[2019-02-25 20:00] VITALS: BP 96/62
[2019-02-26] VITALS: BP 132/95
[2019-02-26] MEDS: Albuterol/Ipratropium 3ml neb HHN PRN (02:17)
[2019-02-26 04:00] VITALS: BP 100/64
[2019-02-26] MEDS: Guaifenesin/DM 10ml syrup ORAL PRN (05:20)
[2019-02-26] MEDS: Levothyroxine 25mcg tab ORAL SCH (05:20)
[2019-02-26] MEDS: dilTIAZem HCl 90mg tab ORAL SCH ×2 (05:25→13:54)
[2019-02-26 07:09] LABS: BASOPHILS % (AUTO) 0.6 % (0.0-2.0); EOSINOPHILS % (AUTO) 1.5 % (0.0-3.0); HEMATOCRIT 29.2 % (42.0-52.0); HEMOGLOBIN 9.4 G/DL (14.2-18.0); LYMPHOCYTES % (AUTO) 33.4 % (20.0-45.0); MEAN CORPUSCULAR VOLUME 93 FL (80-99); MONOCYTES % (AUTO) 10.9 % (1.0-10.0); NEUTROPHILS % (AUTO) 53.6 % (45.0-75.0); PLATELET COUNT 195 K/UL (150-450); RED BLOOD COUNT 3.13 M/UL (4.70-6.10); RED CELL DISTRIBUTION WIDTH 13.6 % (11.6-14.8); WHITE BLOOD COUNT 5.9 K/UL (4.8-10.8)
[2019-02-26 07:17] LABS: ANION GAP 6 mmol/L (5-15); BLOOD UREA NITROGEN 11 mg/dL (7-18); CARBON DIOXIDE 25 MMOL/L (21-32); CHLORIDE 109 MMOL/L (98-107); POTASSIUM 4.7 MMOL/L (3.5-5.1); SODIUM 140 MMOL/L (136-145)
--- NOTE | 2019-02-26 07:23 | NUR ---
NURSE NOTES: received pt in bed, asleep, no sign of pain or discomfort noted. BLE contracted. Receives IVF D5W + 20mEq KCl @ 75cc/hr LFA access. NC O2 2L/min. Bed locked at the lowest position possible, call light within easy reach, siderails x2. Will continue to monitor pt and follow up with the plan of care.
--- NOTE | 2019-02-26 07:32 | NUR ---
HAND-OFF: Report given to CHARLEY Graham.
[2019-02-26 08:00] VITALS: BP 103/69
[2019-02-26] MEDS: Meloxicam 15 MG TAB ORAL SCH ×2 (09:00→09:28)
[2019-02-26] MEDS: Tamsulosin 0.4mg cap ORAL SCH (09:00)
[2019-02-26] MEDS: Losartan 50mg tab ORAL SCH (09:00)
[2019-02-26] MEDS: Fluconazole 100mg tab ORAL SCH (09:24)
[2019-02-26] MEDS: Lyrica 75mg cap ORAL SCH ×2 (09:25→10:12)
[2019-02-26] MEDS: Aspirin EC 81mg tab ORAL SCH (09:27)
[2019-02-26] MEDS: Digoxin 0.125mg tab ORAL SCH (09:27)
[2019-02-26] MEDS: Vancomycin oral 125mg/2.5ml ORAL SCH ×2 (09:27→13:53)
[2019-02-26] MEDS: Vitamin D 1000 IU Tab ORAL SCH (09:27)
[2019-02-26] MEDS: PARoxetine 20mg tab ORAL SCH (09:28)
[2019-02-26] MEDS: Eucerin Cream 15gm TOPIC PRN (09:30)
[2019-02-26] MEDS: D5W w/KCl 20mEq 1,000 ML IV SCH (09:52)
--- NOTE | 2019-02-26 10:01 | NUR ---
DISCHARGE PLANNING PATIENT HAS BEEN REFERRED TO [facility] Addendum: 02/26/19 at 1013 by KING LARSON LVN LVN PATIENT HAS ALSO BEEN REFRRED TO [facility]
[2019-02-26 12:00] VITALS: BP 123/81
--- NOTE | 2019-02-26 12:00 | NUR ---
NURSE NOTES: patient was dc'd of contact isolation by ID dr. Cordero, will report to [facility] nurse.
--- NOTE | 2019-02-26 12:02 | NUR ---
DISCHARGE PLANNING PATIENT HAS BEEN ACCEPTED AT AND GOING TO [facility] ROOM 22B SKILLED T: [phone] FOR NURSE TO NURSE REPORT [facility] HAS BEEN ARRANGED FOR [address] [employer]
--- NOTE | 2019-02-26 12:20 | Pulmonology Progress Note ---
Assessment/Plan Problems: (1) Sepsis (2) Febrile illness, acute (3) Atrial fibrillation (4) History of rectal cancer (5) BPH (benign prostatic hyperplasia) (6) Degenerative disc disease (7) Severe protein-calorie malnutrition (8) HIV (human immunodeficiency virus infection) Assessment/Plan doing better wbc lower not eating well continue abx, on oral vancomycin and iv flagyl check electrolytes watch the heart rate pt agreed with Hospice dc planning in process Subjective ROS Limited/Unobtainable: No Constitutional: Reports: no symptoms HEENT: Repors: no symptoms Allergies: Coded Allergies: CODEINE (Unverified Allergy, Unknown, 11/28/17) EMTRICITABINE (Verified Allergy, Unknown, anxiousness, 08/31/18) SULFAMETHOXAZOLE (Unverified Allergy, Unknown, 10/27/17) TENOFOVIR (Verified Allergy, Unknown, anxiousness, 08/31/18) TRIMETHOPRIM (Unverified Allergy, Unknown, 10/27/17) Objective Last 24 Hour Vital Signs Date Time Temp Pulse Resp B/P (MAP) Pulse Ox O2 Delivery O2 Flow Rate FiO2 02/26/19 09:55 98.4 02/26/19 09:55 98.4 02/26/19 09:27 117 02/26/19 09:00 Nasal Cannula 2.0 02/26/19 09:00 103/69 02/26/19 08:00 98.6 105 20 103/69 (80) 98 02/26/19 05:25 105 100/64 02/26/19 04:00 98.4 105 20 100/64 (76) 94 02/26/19 02:17 104 20 96 Nasal Cannula 3.0 32 106 20 93 02/26/19 00:00 98.1 20 132/95 (107) 94 02/25/19 21:26 86 96/62 02/25/19 20:42 Nasal Cannula 2.0 02/25/19 20:00 97.8 86 20 96/62 (73) 94 02/25/19 19:36 96 Nasal Cannula 2.0 28 02/25/19 19:36 83 18 96 Nasal Cannula 3.0 32 02/25/19 19:31 86 20 99 Nasal Cannula 3.0 32 83 20 95 02/25/19 16:00 97.9 72 18 128/64 (85) 97 02/25/19 12:59 73 98/60 Intake and Output 02/25/19 02/26/19 19:00 07:00 Intake Total 1167 ml 1200 ml Balance 1167 ml 1200 ml Intake Oral 480 ml 400 ml IV Total 687 ml 800 ml # Voids 1 44 # Bowel Movements 2 1 Objective General Appearance: cachectic HEENT: normocephalic, atraumatic Respiratory/Chest: chest wall non-tender, lungs clear Cardiovascular: normal peripheral pulses, normal rate Abdomen: normal bowel sounds, soft, non tender Genitourinary: normal external genitalia Extremities: no clubbing Skin: no rash, no ulcers 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 Musculoskeletal: normal muscle bulk Laboratory Tests 02/26/19 06:32: White Blood Count 5.9, Red Blood Count 3.13L, Hemoglobin 9.4L, Hematocrit 29.2L , Mean Corpuscular Volume 93, Mean Corpuscular Hemoglobin 30.0, Mean Corpuscular Hemoglobin Concent 32.1, Red Cell Distribution Width 13.6, Platelet Count 195, Mean Platelet Volume 6.9, Neutrophils (%) (Auto) 53.6, Lymphocytes (% ) (Auto) 33.4, Monocytes (%) (Auto) 10.9H, Eosinophils (%) (Auto) 1.5, Basophils (%) (Auto) 0.6, Sodium Level 140, Potassium Level 4.7, Chloride Level 109H, Carbon Dioxide Level 25, Anion Gap 6, Blood Urea Nitrogen 11, Creatinine 1.0, Estimat Glomerular Filtration Rate > 60, Glucose Level 98, Calcium Level 8.0L Current Medications Medications (Trade) Dose Ordered Sig/Roman Route PRN Reason Start Time Stop Time Status Last Admin Dose Admin Acetaminophen (Tylenol) 650 mg Q4H PRN ORAL fever 02/20/19 09:48 03/22/19 09:47 02/26/19 01:32 Albuterol/ Ipratropium (Albuterol/ Ipratropium) 3 ml Q4H PRN HHN Shortness of Breath 02/25/19 16:45 03/02/19 16:44 02/26/19 02:17 Aspirin (Ecotrin) 81 mg DAILY ORAL 02/21/19 09:00 03/22/19 08:59 02/26/19 09:27 Baclofen (Lioresal) 10 mg THREE TIMES A DAY ORAL 02/20/19 13:00 03/22/19 08:59 02/21/19 18:35 Dextrose (Dextrose 50%) 25 ml Q30M PRN IV Hypoglycemia 02/20/19 09:45 03/12/19 14:05 Dextrose (Dextrose 50%) 50 ml Q30M PRN IV hypoglycemia 02/20/19 09:45 03/12/19 14:14 Dextrose/ Electrolytes 1,000 ml @ 75 mls/hr [id number] IV 02/20/19 09:47 03/22/19 09:46 02/26/19 09:52 Digoxin (Lanoxin) 0.125 mg DAILY ORAL 02/21/19 09:00 03/16/19 08:59 02/26/19 09:27 Diltiazem HCl (Cardizem) 90 mg EVERY 8 HOURS ORAL 02/20/19 14:00 03/14/19 13:59 02/25/19 05:31 Docusate Sodium (Colace) 100 mg BIDPRN PRN ORAL Constipation 02/20/19 09:49 03/22/19 09:48 Famotidine (Pepcid) 20 mg BID ORAL 02/20/19 18:00 03/13/19 22:29 02/26/19 09:27 Fluconazole (Diflucan) 200 mg DAILY ORAL 02/21/19 09:00 03/02/19 08:59 02/26/19 09:24 Gabapentin (Neurontin) 600 mg THREE TIMES A DAY ORAL 02/20/19 13:00 03/12/19 17:59 02/26/19 09:25 Guaifenesin/ Dextromethorphan (Robitussin DM Syrup) 5 ml Q6H PRN ORAL For Cough 02/20/19 09:50 03/22/19 09:49 02/26/19 05:20 Ketoconazole (Nizoral 2% Cream) 1 applic BID TOPIC 02/20/19 18:00 03/22/19 08:59 02/24/19 08:48 Levothyroxine Sodium (Synthroid) 25 mcg DAILY@0630 ORAL 02/21/19 06:30 03/13/19 06:29 02/26/19 05:20 Lorazepam (Ativan) 1 mg BIDPRN PRN ORAL anxiety 02/20/19 09:50 02/27/19 09:49 Losartan Potassium (Cozaar) 50 mg DAILY ORAL 02/21/19 09:00 03/22/19 08:59 02/23/19 08:59 Meloxicam (Mobic) 15 mg DAILY ORAL 02/21/19 09:00 03/22/19 08:59 02/22/19 09:40 Metoclopramide HCl (Reglan) 5 mg Q6H PRN IVP Nausea & Vomiting 02/20/19 09:51 03/22/19 09:50 Metronidazole 100 ml @ 100 mls/hr Q8HR IVPB 02/20/19 14:00 03/01/19 13:59 02/26/19 05:18 Mirtazapine (Remeron) 7.5 mg BEDTIME PRN ORAL SLEEP 02/20/19 21:00 03/22/19 00:14 Mirtazapine (Remeron) 15 mg BEDTIME ORAL 02/20/19 21:00 03/12/19 20:59 02/24/19 20:57 Morphine Sulfate (Morphine Sulfate) 4 mg Q4H PRN IVP For Pain 02/20/19 09:52 02/27/19 09:51 Multi-Ingredient Ointment (Eucerin) 1 applic TIDPRN PRN TOPIC To Patient Comfort 02/23/19 15:45 03/25/19 15:44 02/26/19 09:30 Oxycodone/ Acetaminophen (Percocet 10/325) 1 tab BID ORAL 02/20/19 18:00 02/27/19 08:59 02/26/19 09:27 Paroxetine HCl (Paxil) 40 mg DAILY ORAL 02/21/19 09:00 03/13/19 08:59 02/26/19 09:28 Patient Own Medication (Patient's Own Med) 1 ea BID ORAL 02/20/19 10:00 03/22/19 09:59 02/26/19 09:28 Patient Own Medication (Patient's Own Med) 1 ea DAILY ORAL 02/20/19 10:00 03/22/19 09:59 02/26/19 09:28 Patient Own Medication (Patient's Own Med) 1 ea DAILY ORAL 02/20/19 10:00 03/22/19 09:59 02/26/19 09:28 Polyethylene Glycol (Miralax) 17 gm HSPRN PRN ORAL Constipation 02/20/19 14:00 03/12/19 13:59 Pregabalin (Lyrica) 150 mg BID ORAL 02/20/19 18:00 03/22/19 08:59 02/26/19 09:25 Tamsulosin HCl (Flomax) 0.4 mg BID ORAL 02/20/19 18:00 03/12/19 17:59 02/25/19 17:46 Vancomycin HCl (Firvanq) 125 mg FOUR TIMES A DAY ORAL 02/20/19 13:00 02/26/19 23:59 02/26/19 09:27 Vitamin D (Vitamin D) 1,000 intlu DAILY ORAL 02/21/19 09:00 03/22/19 08:59 02/26/19 09:27 Oliverio Rm MD Feb 26, 2019 12:20
--- NOTE | 2019-02-26 12:40 | NUR ---
*-* INSURANCE *-* [facility]IN[facility] [id number] F: [phone] P: [phone]
--- NOTE | 2019-02-26 13:17 | GI Progress Note ---
Assessment/Plan Problems: (1) Veda infection ICD Codes: B37.9 - Candidiasis, unspecified SNOMED: 55409612 (2) Duodenal ulcer ICD Codes: K26.9 - Duodenal ulcer, unspecified as acute or chronic, without hemorrhage or perforation SNOMED: 20817638 (3) Anemia ICD Codes: D64.9 - Anemia, unspecified SNOMED: 111968863 Status: stable Status Narrative Discussed with Dr. Germain. Assessment/Plan SUMMARY OF FINDINGS: 1. Severe distal esophagitis, atypical, severe Veda esophagitis. 2. Duodenal ulcerations. 3. Gastritis, status post biopsy. RECOMMENDATIONS: 1. Follow up pathology and treat accordingly. 2. The patient is to be on a PPI given duodenal ulceration. 3. We will start fluconazole for Veda esophagitis, pending results of the brushing and biopsy. advance to soft diet follow labs dc planning The patient was seen and examined at bedside and all new and available data was reviewed in the patients chart. I agree with the above findings, impression and plan. (Patient seen earlier today. Signature stamp does not reflect patient encounter time.). - Dejan Germain MD Subjective Subjective tolerating diet no report N/V denies diarrhea Objective Last 24 Hour Vital Signs Date Time Temp Pulse Resp B/P (MAP) Pulse Ox O2 Delivery O2 Flow Rate FiO2 02/26/19 09:55 98.4 02/26/19 09:55 98.4 02/26/19 09:27 117 02/26/19 09:00 Nasal Cannula 2.0 02/26/19 09:00 103/69 02/26/19 08:00 98.6 105 20 103/69 (80) 98 02/26/19 05:25 105 100/64 02/26/19 04:00 98.4 105 20 100/64 (76) 94 02/26/19 02:17 104 20 96 Nasal Cannula 3.0 32 106 20 93 02/26/19 00:00 98.1 20 132/95 (107) 94 02/25/19 21:26 86 96/62 02/25/19 20:42 Nasal Cannula 2.0 02/25/19 20:00 97.8 86 20 96/62 (73) 94 02/25/19 19:36 96 Nasal Cannula 2.0 28 02/25/19 19:36 83 18 96 Nasal Cannula 3.0 32 02/25/19 19:31 86 20 99 Nasal Cannula 3.0 32 83 20 95 02/25/19 16:00 97.9 72 18 128/64 (85) 97 Intake and Output 02/25/19 02/26/19 19:00 07:00 Intake Total 1167 ml 1200 ml Balance 1167 ml 1200 ml Intake Oral 480 ml 400 ml IV Total 687 ml 800 ml # Voids 1 44 # Bowel Movements 2 1 Laboratory Tests Test 02/26/19 06:32 White Blood Count 5.9 K/UL (4.8-10.8) Red Blood Count 3.13 M/UL (4.70-6.10) L Hemoglobin 9.4 G/DL (14.2-18.0) L Hematocrit 29.2 % (42.0-52.0) L Mean Corpuscular Volume 93 FL (80-99) Mean Corpuscular Hemoglobin 30.0 PG (27.0-31.0) Mean Corpuscular Hemoglobin Concent 32.1 G/DL (32.0-36.0) Red Cell Distribution Width 13.6 % (11.6-14.8) Platelet Count 195 K/UL (150-450) Mean Platelet Volume 6.9 FL (6.5-10.1) Neutrophils (%) (Auto) 53.6 % (45.0-75.0) Lymphocytes (%) (Auto) 33.4 % (20.0-45.0) Monocytes (%) (Auto) 10.9 % (1.0-10.0) H Eosinophils (%) (Auto) 1.5 % (0.0-3.0) Basophils (%) (Auto) 0.6 % (0.0-2.0) Sodium Level 140 MMOL/L (136-145) Potassium Level 4.7 MMOL/L (3.5-5.1) Chloride Level 109 MMOL/L (98-107) H Carbon Dioxide Level 25 MMOL/L (21-32) Anion Gap 6 mmol/L (5-15) Blood Urea Nitrogen 11 mg/dL (7-18) Creatinine 1.0 MG/DL (0.55-1.30) Estimat Glomerular Filtration Rate > 60 mL/min (>60) Glucose Level 98 MG/DL (74-106) Calcium Level 8.0 MG/DL (8.5-10.1) L Height (Feet): 5 Height (Inches): 5.00 Weight (Pounds): 152 General Appearance: WD/WN, no apparent distress, alert Cardiovascular: normal rate Respiratory/Chest: normal breath sounds, no respiratory distress Abdominal Exam: normal bowel sounds, non tender, soft Extremities: normal range of motion, non-tender Jasen Brink NP Feb 26, 2019 13:17
[2019-02-26 13:54] VITALS: BP 123/81
--- NOTE | 2019-02-26 14:20 | NUR ---
NURSE NOTES: patient has been discharged to [facility], with [facility], report given to Leticia Nurse fitting supervisor from [facility]. Given meds stocked at the pharmacy, pt signed off receipt of it and of the valuebles that was on the safe. Taken IV access off, no bleeding noted. Notified NOK listed on the facesheet. Given discharge packet. Pt in stable condition and VS, no complaint of pain or discomfort. Addendum: 02/26/19 at 1438 by MEY ALLISON RN patient left with bag of meds containing bottles with Genvoya, Prezista and Intelence. Addendum: 02/26/19 at 1457 by MEY ALLISON RN NURSE NOTES: reported to CHARLEY Kelly pt was dc'd of contact isolation from C-Diff, colonized, by CAROLA Cordero
--- NOTE | 2019-02-27 10:19 | Discharge Summary ---
Discharge Summary Discharge Summary _ DATE OF ADMISSION: 02/10/2019 DATE OF DISCHARGE: 02/26/2019 DISCHARGED BY: Dr. Barragan REASON FOR ADMISSION: 68 years old male with past medical history of rectal cancer ( currently undergoing work-up , but no active treatment yet at [facility]), hypertension, hyperlipidemia, history of CVA with residual right-sided weakness , HIV ( diagnosed in 1984), presented for evaluation due to lower extremity weakness. At baseline patient uses a wheelchair for ambulation around the house and was able to get out of the wheelchair by himself and perform some exercise. The morning prior to presentation to ED , patient stated he was unable to rise from his bed and called paramedics. No fall or trauma reported. Patient reported lower extremity weakness along with weakness in pelvis area. He denied recent fevers and chills. No difficulty with voiding, no a urinary retention. No hematuria , dysuria, vomiting ,diarrhea ,chest pain ,shortness of breath, or cough. Upon evaluation vital signs revealed fever and tachycardia. Laboratory work-up revealed no leukocytosis, stable hemoglobin and hematocrit. Lactic acid 1.9. Sodium 134 , potassium 3.9 . BUN 18 , creatinine 1.3. Glucose 102. Phosphorus 1.9. Magnesium 1.7. Troponin negative. EKG revealed sinus tachycardia with incomplete right bundle branch block . Stable LFT. Albumin 3.6. Urinalysis revealed +2 protein, but no evidence of urinary tract infection. Chest x-ray revealed no acute cardiopulmonary pathology. Patient started on the IV fluids. Electrolytes repleted. Patient received antipyretic with improvement in heart rate and temperature. Patient started on empiric antibiotic and admitted for further management CONSULTANTS: under seal operator Dr. Salmeron pulmonary Dr. Rm ID specialist Dr. Cordero GI specialist Dr. Germain [facility]RSE: Patient is admitted to telemetry floor. Patient started on IV fluids and empiric antibiotics. Product Planner followed. Patient noted to be in atrial fibrillation with rapid ventricular response. Patient started on Cardizem and digoxin. hear rate controlled, Digoxin level stable. Patient spontaneously converted to sinus rhythm with some premature atrial contraction. Echocardiogram demonstrated ejection fraction of 60%. Patient also demonstrated recurrent supraventricular tachycardia which stabilized with digoxin and Cardizem. Blood pressure appeared to be stable with current regimen. Product Planner recommended outpatient EP study for ablation. Lipid panel was stable. Venous duplex bilateral lower extremity revealed no evidence of acute DVT. Supplemental oxygen provided as needed to keep pulse oximetry above 92%. Bronchodilator therapy provided as needed. Infectious disease specialist followed. Patient has a history of C. difficile in September 2018 . Stool for C. difficile at this admission was positive. 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 Patient also started on the IV Flagyl , since patient was refusing some doses of oral vancomycin. Sepsis was likely due to C. difficile colitis. CT of the abdomen and pelvis revealed sigmoid and rectal colonic wall thickening with some mucosal edema along with scattered small bowel loops with bowel wall thickening suggestive of enterocolitis., Duodenal wall thickening with associated fat stranding, which may share etiology with enterocolitis; however, correlation with lipase was recommended to exclude groove pancreatitis. Evidence of infectious/inflammatory small airways disease; patchy left basilar airspace consolidation raised possibility of developing pneumonia. Refluxing esophagus with distal esophageal wall thickening; correlation with recent endoscopy was recommended. Chest x-ray demonstrated bibasilar opacity , likely representing subsegmental atelectasis. Urinalysis was negative. Blood culture were negative. Lipase and amylase were stable. Sputum culture revealed normal respiratory thomas. Stool culture was negative. Patient during the stay developed leukocytosis with the highest number of 20.3 along with intermittent fevers. Both fevers and leukocytosis resolved. Patient will need to continue with oral vancomycin at the group home facility to complete the course. Patient undergone upper endoscopy with biopsy and brush biopsy on 02/16 due to dysphagia and distal esophageal wall thickening based on CT. During the procedure found severe distal esophagitis, questionable severe Veda esophagitis versus ischemic esophagitis, status post biopsy and brushing. Duodenal ulceration. Gastritis ,status post biopsy. Biopsy of stomach antrum revealed mild chronic gastritis, but was negative for intestinal metaplasia, dysplasia or malignancy. Negative for Helicobacter. Biopsy of esophagus #1 revealed no evidence of intestinal metaplasia, dysplasia or malignancy. Negative for fungal organisms by special stains. Gastric cardia type mucosa with mild chronic and acute inflammation and reactive atypia. Biopsy of esophagus #2 revealed granulation tissue with acute and chronic inflammation consistent with ulceration. Negative for malignancy. Positive for yeast organisms as confirmed by special stains . Negative for cytomegalovirus and HCV 12 by immunohistochemical stains. Esophageal brushing revealed rare fungal organisms , suggestive of Veda species . Patient started on fluconazole for Veda esophagitis. Patient will need to complete 14 days course of fluconazole at the facility. Renal parameters and electrolytes were closely monitored. Electrolytes/ potassium, phosphorus, and magnesium replaced as needed. Patient was continued on ARV therapy. CD4 -407. Bedside swallow evaluation revealed dysphagia. Strict aspiration precautions were maintained. Protein supplements provided as per registered dietitian recommendation. TSH was stable , current dose of levothyroxine was continued. Supportive care provided. Placement was arranged to group home facility. Leukocytosis and fevers resolved. Diarrhea subsided. Patient was stable for transfer. FINAL DIAGNOSES: Sepsis C. difficile colitis Atrial fibrillation with rapid ventricular response Recurrent supraventricular tachycardia Rectal CA HIV Hypertension Hypothyroidism History of CVA Severe protein calorie malnutrition Electrolyte abnormalities/potassium , magnesium , phosphorus Status post EGD Veda esophagitis Gastritis Duodenal ulcer DISCHARGE MEDICATIONS: See Medication Reconciliation list. DISCHARGE INSTRUCTIONS: Patient was discharged to the group home facility. Follow up with medical doctor at the facility. Karla Mason NP Feb 27, 2019 10:19
--- NOTE | 2019-02-27 13:23 | NUR ---
*-* INSURANCE *-* DISCHARGE SUMMARY HAVE BEEN FAXED TO: [facility]:CARMITA REF# [id number] F: [phone] P: [phone]
== END 2019-02-26 14:29 | DRG 974 ==
LOC: EDBD 06:52 → EMR 07:09 → EDBEDREQ 09:29 → 2E 10:58 → 4E 02-20 01:03
PROC: 0DB78ZX Excision of Stomach, Pylorus, Via Natural or Artificial Opening Endoscopic, Diagnostic (ICD-10-PCS; principal; 2019-02-16 12:12)
DX: A41.4 Sepsis due to anaerobes (principal); E43 Unspecified severe protein-calorie malnutrition; B20 Human immunodeficiency virus [HIV] disease; J18.9 Pneumonia, unspecified organism; C20 Malignant neoplasm of rectum; I47.1 Supraventricular tachycardia; A04.72 Enterocolitis due to Clostridium difficile, not specified as recurrent; B37.81 Candidal esophagitis; E03.9 Hypothyroidism, unspecified; I67.9 Cerebrovascular disease, unspecified; Z68.23 Body mass index [BMI] 23.0-23.9, adult; N40.0 Benign prostatic hyperplasia without lower urinary tract symptoms; I48.91 Unspecified atrial fibrillation; E87.6 Hypokalemia; K29.70 Gastritis, unspecified, without bleeding; K26.9 Duodenal ulcer, unspecified as acute or chronic, without hemorrhage or perforation; R13.10 Dysphagia, unspecified; I10 Essential (primary) hypertension; E83.42 Hypomagnesemia
CPT/HCPCS: 36415; 71045; 71260; 74177; 80048; 80053; 80061; 80162; 81003; 82150; 82248; 82550; 82553; 83605; 83690; 83735; 83880; 84100; 84443; 84484; 85007; 85025; 85610; 85730; 86360; 87040; 87045; 87070; 87081; 87205; 87324; 93005; 93970; 94003; 94150; 94640; 94664; 96361; 96365; 96367; 96375; 99285; J2405; J2765; J7620; J8499